=== PATIENT | female | born 1960 | race Caucasian/White ===

== ENCOUNTER 2017-02-22 11:06 | Inpatient (IN) | payer BC ==
[2017-02-22] MEDS ORDERED: SODIUM CHLORIDE 0.9% 1,000 ML IV STA ×2 (11:28)
[2017-02-22] MEDS ORDERED: IPRATROPIUM-ALBUTEROL 3 ML NEB INHALATION STA (11:28)
[2017-02-22] MEDS ORDERED: METOCLOPRAMIDE 5 MG/ML 2 ML VIAL IVP STA (11:28)
[2017-02-22 11:52] LABS: Basophils % (A) 0 %; CH 33.2; CHCM 34.4; Eosinophils # (A) 0.1 k/uL (0-0.7); Eosinophils % (A) 0 %; HCT 44.6 % (34.0-46.0); HDW 2.59; HGB 15.6 gm/dL (11.4-16.0); Luc # (Auto) 0.27; Luc % (Auto) 2; Lymphocytes # (A) 1.6 k/uL (1.0-4.8); Lymphocytes % (A) 10 %; MCH 33.9 pg (25.0-35.0); Mean Platelet Volume 7.2; Monocytes # (A) 0.9 k/uL (0-1.0); Monocytes % (A) 5 %; Neutrophils # (A) 14.1 k/uL (1.3-7.7); Neutrophils % (A) 83 %; RDW 13.8 % (11.5-15.5); WBC 16.9 k/uL (3.8-10.6); WBC (Perox) 16.18
[2017-02-22] MEDS ORDERED: methylPREDNISolone SOD SUCCI 125 MG/2 ML VIAL IV STA (12:08)
--- NOTE | 2017-02-22 12:08 | XR ---
EXAMINATION TYPE: XR chest 2V DATE OF EXAM: 02/22/2017 11:57 AM COMPARISON: 05/17/2015 INDICATION: Difficulty breathing TECHNIQUE: 2 view chest FINDINGS: The heart size is normal. The pulmonary vasculature is normal. The lungs are clear. There is hyperinflation flattening the diaphragms compatible COPD. Some blunting the right costophren ic angle could be a minimal effusion or related to COPD. Old rib fractures are present on the right. IMPRESSION: 1. A minimal right pleural effusion is not excluded. This could be chronic changes due to COPD. 2. COPD
--- NOTE | 2017-02-22 12:09 | XR ---
EXAMINATION TYPE: XR abdomen 2V DATE OF EXAM: 02/22/2017 11:57 AM COMPARISON: 02/22/2017 INDICATION: Abdominal pain TECHNIQUE: Single view abdomen upright view and supine view FINDINGS: Nonspecific bowel gas is present. There is a colostomy on the right. Surgical clips are within the ab domen and pelvis. Psoas margins are normal. No organomegaly is present. No free air is evident. Upper abdomen [id number] on the upright view. IMPRESSION: 1. No suspicious changes. 2. Note is made of small bilateral pleural effusions.
[2017-02-22 12:10] LABS: ALT 27 U/L (9-52); AST 16 U/L (14-36); Alkaline Phosphatase 61 U/L (38-126); Anion Gap 13 mmol/L; Blood Urea Nitrogen 13 mg/dL (7-17); Calcium 10.2 mg/dL (8.4-10.2); Carbon Dioxide 25 mmol/L (22-30); Chloride 106 mmol/L (98-107); Glucose 100 mg/dL (74-99); Magnesium 1.6 mg/dL (1.6-2.3); Non-African American GFR(MDRD) >60 (>60 ml/min/1.73 sqM); Potassium 3.8 mmol/L (3.5-5.1); Sodium 144 mmol/L (137-145); Total Bilirubin 0.8 mg/dL (0.2-1.3); Total Protein 7.5 g/dL (6.3-8.2)
--- NOTE | 2017-02-22 12:12 | ED ---
General Adult HPI - General Chief complaint: Shortness of Breath Stated complaint: Dehydration/Difficulty Breathing Time Seen by Provider: 02/22/17 11:20 Source: patient, RN notes reviewed, old records reviewed Mode of arrival: EMS Limitations: no limitations - History of Present Illness Initial comments: Chief complaint history of present illness this is a 56-year-old female with multiple complaints. She does have history of COPD, Crohn's. Patient reports proximal or 7 days ago she started with an upper respiratory tract type infection but no fever. She felt short of breath today. Updrafts aren't helping as much as they used to. She's also developed dry heaves and diarrhea. Patient feels dry. Complains of chills and sweats at times. No blood in the vomit or stool. - Related Data Home Medications Medication Instructions Recorded Confirmed Aclidinium [place] [Tudorza 400 mcg INHALATION BID 06/21/14 06/03/16 Pressair] Adalimumab [Humira] 40 mg SQ FR 06/21/14 06/03/16 Albuterol Nebulized [Ventolin 2.5 mg INHALATION QID PRN 06/21/14 06/03/16 Nebulized] Albuterol Sulfate [Proair Hfa] 2 puff INHALATION Q4HR PRN 06/21/14 06/03/16 Acetaminophen-Codeine 300-30mg 1 tab PO TID 08/18/14 06/03/16 [Tylenol w/codeine #3] Calcium Carb-Vit D 500Mg-200Un 1 each PO BID 04/27/16 06/03/16 [Oscal 500+D] Fluticasone/Vilanterol [Breo 1 inhalation PO Q24HR 04/27/16 06/03/16 Ellipta 100-25 Mcg Iinhaler] Multivitamins, Thera [Multivitamin] 1 tab PO DAILY 04/27/16 06/03/16 Opium Tincture 2 ml PO QID 04/27/16 06/03/16 Mercaptopurine [Purinethol] 50 mg PO BID 02/22/17 02/22/17 Allergies Allergy/AdvReac Type Severity Reaction Status Date / Time aspirin Allergy Unknown Verified 02/22/17 12:09 Beta-Blockers Allergy Unknown Verified 02/22/17 12:09 (Beta-Adrenergic Bloc Iodine and Iodide Containing Allergy Unknown Verified 02/22/17 12:09 Produc Sulfa (Sulfonamide Allergy Unknown Verified 02/22/17 12:09 Antibiotics) timolol [Timolol] Allergy Unknown Verified 02/22/17 12:09 Review of Systems ROS Statement: Those systems with pertinent positive or pertinent negative responses have been documented in the HPI. Review of systems. No headache or visual acuity changes no sore throat. Dry heaves causing discomfort to her epigastric region. Chronically short of breath with COPD, still smoking 3 cigarettes per day, strongly encouraged to stop, using updrafts frequently. No peripheral neurological complaints other than discomfort associated with fibromyalgia. All systems are reviewed. Past medical problems significant for COPD, fibromyalgia, GERD, Crohn's, hiatal hernia. The patient's surgeries include a breast lumpectomy, cholecystectomy, inguinal hernia repair, total hysterectomy, arthroscopic surgery to her knee, ectopic times one. Family history cancers include throat and skin. The patient does smoke strongly encouraged to stop. Advised to follow-up with her family physician concerning ways to help her stop. Denies alcohol use. ROS Other: All systems not noted in ROS Statement are negative. Past Medical History Past Medical History: COPD, Fibromyalgia, GERD/Reflux Additional Past Medical History / Comment(s): crohn's, hiatal hernia History of Any Multi-Drug Resistant Organisms: None Reported Past Surgical History: Breast Surgery, Cholecystectomy, Hernia Repair, Hysterectomy, Orthopedic Surgery Additional Past Surgical History / Comment(s): ectopic , ileostomy, leep procedure,stoma repair, laparoscopy, Past Anesthesia/Blood Transfusion Reactions: No Reported Reaction Past Psychological History: No Psychological Hx Reported Smoking Status: Current every day smoker Past Alcohol Use History: None Reported Additional Past Alcohol Use History / Comment(s): smoker since age 17 currently smoking <1/2 pack/wk Past Drug Use History: None Reported - Past Family History Mother Family Medical History: No Reported History General Exam - General Exam Comments Initial Comments: General: The patient is awake and alert, playing of COPD exacerbation, updrafts aren't helping as much is a used to. Also dry heaves exacerbation of Crohn's with epigastric and abdominal discomfort. No blood noted in the diarrhea. Vital signs show temperature 97.7 pulse 80 respiratory rate 20 pulse ox 94% room air blood pressure 107/68 Eye: Pupils are equal, round and reactive to light, extra-ocular movements are intact ; there is normal conjunctiva bilaterally. No signs of icterus. Ears, nose, mouth and throat: There are moist mucous membranes and no oral lesions. Neck: The neck is supple, there is no tenderness . Cardiovascular: There is a regular rate and rhythm. No murmur, rub or gallop is appreciated. Respiratory: Lungs are clear to auscultation, respirations are non-labored, breath sounds are equal. No wheezes, stridor, rales, or rhonchi. History of COPD Gastrointestinal: Soft, non-distended, mildly tender abdomen without masses or organomegaly noted. There is no rebound or guarding present. No CVA tenderness. Active bowel sounds Back: Chronic musculoskeletal discomfort from fibromyalgia. Musculoskeletal: No joint swelling complaints. Generalized discomfort with her fibromyalgia per patient. Neurological: No complaint of weakness other than feeling dehydrated. No neuro deficits noted or complained of. Skin: Skin is warm and dry and no rashes or lesions are noted. Limitations: no limitations Course Vital Signs 02/22/17 02/22/17 02/22/17 11:08 12:01 12:10 Temperature 97.7 F Pulse Rate 80 88 84 Respiratory 20 18 Rate Blood Pressure 107/68 141/99 O2 Sat by Pulse 94 L 100 Oximetry 02/22/17 12:16 Temperature Pulse Rate 90 Respiratory Rate Blood Pressure O2 Sat by Pulse Oximetry EKG Findings - EKG Comments: EKG Findings:: EKG was done and reviewed at 1140 showing sinus rhythm with sinus arrhythmia. Rare PVC. Rate 83 PA interval was 126 QRS 68 QT [address] Qiu Medical Decision Making - Medical Decision Making Medical decision making patient's white count 16.9 hemoglobin 15 hematocrit 44, potassium 3.8 with a BUN 13 creatinine 0.66 with a GFR greater than 60. Glucose 100. Troponin less than 0.012 X-ray of the chest was done and AP and lateral views and reviewed by radiologist entire report was reviewed his final impression is a minimal right pleural effusion is not excluded. This could be chronic changes due to COPD. # 2 COPD X-ray of the abdomen was done and reviewed by radiologist his findings are nonspecific bowel gas is present. There is a colostomy on the right surgical clips are within the abdomen and pelvis. Psoas margins are normal. No organomegaly is present. No free air is evident. Upper abdominal field of view on the upright view. Impression; no suspicious changes. Note is made of a small bilateral pleural effusions. As read by Dr. Herzog The patient be admitted for exacerbation of COPD and Crohn's disease. - Lab Data Result diagrams: 02/22/17 11:15 02/22/17 11:15 Lab Results 02/22/17 02/22/17 02/22/17 Range/Units 11:15 11:15 11:15 WBC 16.9 H (3.8-10.6) k/uL RBC 4.60 (3.80-5.40) m/uL Hgb 15.6 (11.4-16.0) gm/dL Hct 44.6 (34.0-46.0) % MCV 97.0 (80.0-100.0) fL MCH 33.9 (25.0-35.0) pg MCHC 35.0 (31.0-37.0) g/dL RDW 13.8 (11.5-15.5) % Plt Count 258 (150-450) k/uL Neutrophils % 83 % Lymphocytes % 10 % Monocytes % 5 % Eosinophils % 0 % Basophils % 0 % Neutrophils # 14.1 H (1.3-7.7) k/uL Lymphocytes # 1.6 (1.0-4.8) k/uL Monocytes # 0.9 (0-1.0) k/uL Eosinophils # 0.1 (0-0.7) k/uL Basophils # 0.0 (0-0.2) k/uL Sodium 144 (137-145) mmol/L Potassium 3.8 (3.5-5.1) mmol/L Chloride 106 (98-107) mmol/L Carbon Dioxide 25 (22-30) mmol/L Anion Gap 13 mmol/L BUN 13 (7-17) mg/dL Creatinine 0.66 (0.52-1.04) mg/dL Est GFR (MDRD) Af Amer >60 (>60 ml/min/1.73 sqM) Est GFR (MDRD) Non-Af >60 (>60 ml/min/1.73 sqM) Glucose 100 H (74-99) mg/dL Calcium 10.2 (8.4-10.2) mg/dL Magnesium 1.6 (1.6-2.3) mg/dL Total Bilirubin 0.8 (0.2-1.3) mg/dL AST 16 (14-36) U/L ALT 27 (9-52) U/L Alkaline Phosphatase 61 (38-126) U/L Troponin I <0.012 (0.000-0.034) ng/mL Total Protein 7.5 (6.3-8.2) g/dL Albumin 4.3 (3.5-5.0) g/dL Disposition Clinical Impression: Asthma exacerbation in COPD, Exacerbation of Crohn's disease Disposition: ADMITTED IP TO THIS HOSP Condition: Serious
[2017-02-22] MEDS ORDERED: HYDROmorphone 1 MG/ML 1 ML SYRINGE IV PRN (12:42)
[2017-02-22] MEDS ORDERED: NALOXONE 0.4 MG/ML 1 ML VIAL IV PRN (12:42)
[2017-02-22] MEDS ORDERED: ONDANSETRON 4 MG/2 ML VIAL IVP PRN (12:42)
[2017-02-22] MEDS ORDERED: ALBUTEROL NEBULIZED 2.5 MG/3 ML INHALATION PRN (12:46)
[2017-02-22] MEDS: SODIUM CHLORIDE 0.9% 1,000 ML IV SCH ×2 (13:25→21:51)
[2017-02-22] MEDS ORDERED: Acetaminophen-Codeine 300-30mg TAB PO SCH (16:00)
[2017-02-22] MEDS: methylPREDNISolone SOD SUCCI 125 MG/2 ML VIAL IV SCH ×2 (16:22→23:27)
[2017-02-22] MEDS: ONDANSETRON 4 MG/2 ML VIAL IVP PRN ×2 (17:39→23:30)
[2017-02-22] MEDS: INSULIN LISPRO (humaLOG) 300 UNIT/3 ML VIAL SQ SCH ×2 (19:06→22:00)
[2017-02-22 20:14] LABS: Hemoglobin A1C 5.3 % (4.2-6.1)
[2017-02-22] MEDS: SYMBICORT 80-4.5 MCG INHALER INHALATION SCH (20:58)
[2017-02-22] MEDS ORDERED: CALCIUM CARB-VIT D 500MG-200UN 1 EACH TAB PO SCH (21:00)
[2017-02-22] MEDS: OPIUM PO SCH ×2 (21:02→22:00)
[2017-02-22 21:52] LABS: Glucose,Whole Blood 136 mg/dL (75-99)
[2017-02-22] MEDS: MERCAPTOPURINE 50 MG TAB PO SCH (22:00)
[2017-02-22] MEDS: MELATONIN 3 MG TABLET PO SCH (22:32)
[2017-02-22] MEDS: NICOTINE 21MG/24HR PATCH TRANSDERM SCH (23:04)
[2017-02-22] MEDS: Acetaminophen-Codeine 300-30mg TAB PO SCH (23:25)
--- NOTE | 2017-02-22 23:27 | HP ---
DATE OF ADMISSION: 02/22/2017 PRESENTING COMPLAINT: Short of breath, cough. HISTORY OF PRESENTING COMPLAINT: This is a pleasant 56-year-old patient of Dr. Scott whose chronic stable medical conditions include fibromyalgia, GERD, osteoarthritis, hiatal hernia, osteoporosis. Patient has a history of Crohn's/ulcerative colitis and had her large bowel resected; has a chronic ileostomy. Patient off and on gets diarrhea, which seems to have flared up; hence some achiness in the belly. At the same time patient primarily presents with shortness of breath getting worse for about a week; cough, ( ) in the chest, not able to really expectorate; fevers; feeling hot and cold, tired, rundown, feels exhausted. Therefore she is admitted. REVIEW OF SYSTEMS: CONSTITUTIONAL: Weak, tired. HEENT: As above. RESPIRATORY: As above. CARDIOVASCULAR: None. GASTROINTESTINAL: As above. GENITOURINARY: None. MUSCULOSKELETAL: Aches and pains in the joints. DERMATOLOGICAL: None. HEMATOLOGICAL: None. LYMPHATICS: None. PSYCHIATRY: None. NEUROLOGICAL: None. PAST HISTORY: 1. COPD. 2. Fibromyalgia. 3. GERD. 4. Osteoarthritis. 5. Crohn's/ulcerative colitis. 6. Bleeding per ileostomy after large bowel resection. 7. Hiatal hernia. 8. Osteoporosis. PAST SURGICAL HISTORY: 1. Breast surgery. 2. Cholecystectomy. 3. Hernia repair. 4. Multiple bowel surgeries, including total colectomy. 5. Ileostomy. 6. Right ovary removed. 7. Ectopic . 8. Total hysterectomy. 9. LEEP procedure. 10. Laparoscopy for endometriosis. 11. Left breast lumpectomy. 12. Right breast core biopsy, benign. SOCIAL HISTORY: Patient is taking care of her 90-year-old father. . Patient has been smoking for close to 40 years, up to one half a pack a day. No alcohol. FAMILY HISTORY: COPD, skin cancer, osteoporosis. HOME MEDICATIONS: 1. Purinethol 50 mg b.i.d. 2. Tudorza 400 mcg b.i.d. 3. Tylenol #3 one tablet t.i.d. 4. Opium tincture 2 mL p.o. q.i.d. for diarrhea. 5. Multivitamin 1 tablet p.o. daily. 6. Breo Ellipta 100/25 one puff daily. 7. Calcium with vitamin D 1 tablet p.o. b.i.d. 8. ProAir 2 puffs q.4 p.r.n. 9. Ventolin 2.5 nebulizer q.i.d. p.r.n. 10. Humira 40 mg subcutaneously on Monday. ALLERGIES: 1. ASPIRIN. 2. BETA GLO. 3. IODINE. 4. SULFA. On examination, temperature 99.8, pulse 95, respiration 16, blood pressure 110/64, pulse ox 92% on room air. GENERAL APPEARANCE: Somewhat thin build. Lying in bed, tired-appearing. EYES: Pupils equal. Conjunctivae normal. HEENT: External appearance of nose and ears normal. Oral cavity normal. NECK: JVD not raised. Mass not palpable. RESPIRATORY: Effort increased. LUNGS: Poor air poor air entry. Prolonged expiration. CARDIOVASCULAR: First and second sounds normal. No edema. ABDOMEN: Soft. Mild tenderness. Ileostomy back in place. Liver and spleen not palpable. LYMPHATIC: No lymph node palpable in neck or axillae. PSYCHIATRY: Alert and oriented x3. Mood and affect normal. NEUROLOGICAL: Pupils equal. Cranial nerves grossly intact. Power and sensation grossly intact. INVESTIGATIONS: White count 16.9, hemoglobin 15.6. Potassium 3.8. BUN and creatinine are normal. Troponin negative. Chest x-ray reviewed by me shows a ( ) hyperinflation; no infiltrates. ASSESSMENT: 1. Acute severe chronic obstructive pulmonary disease exacerbation in a patient who is a smoker, probably with acute tracheobronchitis. 2. Gastroesophageal reflux disease. 3. Primary osteoarthritis in multiple joints. 4. Chronic Crohn's with ulcerative colitis leading to ileostomy following total colectomy. 5. Hiatal hernia. 6. Osteoporosis. 7. Chronic nicotine dependence. Patient is a smoker. PLAN: Patient was put on nebulized bronchodilators, Solu-Medrol, IV fluids. Will give Lovenox for DVT prophylaxis. Consultation to Dr. Mistry from pulmonary will be made and also GI. Will give patient a nicotine patch. Advised against smoking.
[2017-02-23] MEDS: BUDESONIDE 1 MG/2 ML NEBU INHALATION SCH ×3 (00:27→20:05)
[2017-02-23] MEDS: IPRATROPIUM-ALBUTEROL 3 ML NEB INHALATION SCH ×8 (00:42→23:47)
[2017-02-23] MEDS: Acetaminophen-Codeine 300-30mg TAB PO SCH ×4 (05:22→23:50)
[2017-02-23] MEDS: SODIUM CHLORIDE 0.9% 1,000 ML IV SCH ×3 (05:30→23:01)
[2017-02-23] MEDS: ONDANSETRON 4 MG/2 ML VIAL IVP PRN ×4 (05:30→23:51)
[2017-02-23 07:38] LABS: Glucose,Whole Blood 122 mg/dL (75-99)
[2017-02-23] MEDS: SYMBICORT 80-4.5 MCG INHALER INHALATION SCH (07:43)
[2017-02-23] MEDS ORDERED: TIOTROPIUM 18 MCG/PUFF INHALER INHALATION SCH (08:00)
[2017-02-23] MEDS: INSULIN LISPRO (humaLOG) 300 UNIT/3 ML VIAL SQ SCH ×4 (08:01→23:01)
[2017-02-23] MEDS: OPIUM PO SCH ×4 (08:29→23:02)
[2017-02-23] MEDS: NICOTINE 21MG/24HR PATCH TRANSDERM SCH (08:30)
[2017-02-23] MEDS: MERCAPTOPURINE 50 MG TAB PO SCH ×2 (08:31→21:14)
[2017-02-23] MEDS: methylPREDNISolone SOD SUCCI 125 MG/2 ML VIAL IV SCH ×2 (08:32→16:45)
[2017-02-23] MEDS ORDERED: PANTOPRAZOLE 40 MG/10 ML VIAL IV SCH (09:00)
[2017-02-23 09:17] LABS: ALT 33 U/L (9-52); AST 18 U/L (14-36); Alkaline Phosphatase 53 U/L (38-126); Anion Gap 8 mmol/L; Blood Urea Nitrogen 11 mg/dL (7-17); Calcium 8.2 mg/dL (8.4-10.2); Carbon Dioxide 21 mmol/L (22-30); Chloride 114 mmol/L (98-107); Glucose 112 mg/dL (74-99); Non-African American GFR(MDRD) >60 (>60 ml/min/1.73 sqM); Sodium 143 mmol/L (137-145); Total Bilirubin 0.5 mg/dL (0.2-1.3)
--- NOTE | 2017-02-23 09:32 | P.CONS ---
History of Present Illness - Reason for Consult Consult date: 02/23/17 History of Crohn's disease Requesting physician: Lokesh Austin - History of Present Illness 56-year-old female patient Dr. Scott with a past medical history of Crohn's ileitis with ileostomy presents with acute history symptoms of cough, respiratory type symptoms without fever. He sentences been ongoing for about a week. She had increased ileostomy watery liquid output for the last week with intermittent cramping however since admission with hydration her ostomy output has improved. She takes an opiate tincture liquid medication 4 times a day which helps her abdominal cramping. Appetite has been diminished with poor oral intake with intermittent nausea vomiting. Denies hematemesis hematochezia or melena. She is maintained on Humira with her next injection scheduled for tomorrow. Patient feels her symptoms of increased ostomy output are related to her respiratory symptoms. She doesn't feel it is a "true exacerbation" but it is "flaring me up". Colonoscopy April 2016 reported no evidence of active Crohn's disease. White count 16.9. Hemoglobin 15.6. T-max 99.8. She declined flu vaccine this year. Abdominal x-ray reported no suspicious changes. Chest x-ray minimal right pleural effusion could not be excluded. Chronic changes due to COPD. Review of Systems Constitutional: Denies fever, chills, sweats, weight gain, or loss. HEENT: Negative for migraines, blurred vision or loss, earaches, drainage, tinnitus, oral mucosal lesions, dysphagia, or odynophagia. CARDIAC: Negative for chest pain, arrhythmias, or palpitation. RESPIRATORY: COPD. Negative for shortness of breath, hemoptysis, cough, or sputum production. GI: See HPI for pertinent findings. : Negative for hematuria, urgency, frequency, polyuria, or dysuria. GYNc: Denies possibility of . Negative vaginal discharge. MUSCULOSKELETAL: Osteoarthritis. Fibromyalgia. NEUROLOGIC: Negative for stroke or TIA. ENDOCRINE: Negative for thyroid problems. SKIN: Negative for rash or itching. PSYCHIATRIC: Negative history for depression and anxiety All systems: negative (See HPI) Past Medical History Past Medical History: COPD, Fibromyalgia, GERD/Reflux, GI Bleed, Osteoarthritis (OA), Pneumonia Additional Past Medical History / Comment(s): bronchitis, crohn's, bowel obstructions, lower GI bleeds, hiatal hernia, osteoporosis, arthritis multiple joints, seasonal allergies. History of Any Multi-Drug Resistant Organisms: None Reported Past Surgical History: Breast Surgery, Cholecystectomy, Hernia Repair, Hysterectomy, Orthopedic Surgery Additional Past Surgical History / Comment(s): Multiple bowel surgeries including total colectomy/ileostomy, ileostomy moved/repaired, R tube and R ovary removed due toectopic , total hysterectomy, leep procedure, laparoscopy for endometriosis, L breast lumpectomy-benign, r breast core bx- benign, EGD/colonoscopies. Past Anesthesia/Blood Transfusion Reactions: No Reported Reaction Past Psychological History: No Psychological Hx Reported Additional Psychological History / Comment(s): Pt currently is staying with her 90 yr old father who has dementia. Her spouse is staying at their home to care for the dogs. 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 She is independent. Smoking Status: Current every day smoker Past Alcohol Use History: None Reported Additional Past Alcohol Use History / Comment(s): smoker since age 17 currently smoking <1/2 pack/wk Past Drug Use History: None Reported - Past Family History Mother Family Medical History: Cancer, COPD Additional Family Medical History / Comment(s): Skin cancer and osteoporosis. Father Family Medical History: Dementia Additional Family Medical History / Comment(s): Father is 90yrs old. Medications and Allergies Home Medications Medication Instructions Recorded Confirmed Type Aclidinium [place] [Tudorza 400 mcg INHALATION RT-BID 06/21/14 02/22/17 History Pressair] Adalimumab [Humira] 40 mg SQ FR 06/21/14 02/22/17 History Albuterol Nebulized [Ventolin 2.5 mg INHALATION RT-QID PRN 06/21/14 02/22/17 History Nebulized] Albuterol Sulfate [Proair Hfa] 2 puff INHALATION RT-Q4H PRN 06/21/14 02/22/17 History Acetaminophen-Codeine 300-30mg 1 tab PO TID 08/18/14 02/22/17 History [Tylenol w/codeine #3] Calcium Carb-Vit D 500Mg-200Un 1 tab PO BID 04/27/16 02/22/17 History [Oscal 500+D] Fluticasone/Vilanterol [Breo 1 puff INHALATION RT-DAILY 04/27/16 02/22/17 History Ellipta 100-25 Mcg Iinhaler] Multivitamins, Thera [Multivitamin] 1 tab PO DAILY 04/27/16 02/22/17 History Opium Tincture 2 ml PO QID 04/27/16 02/22/17 History Mercaptopurine [Purinethol] 50 mg PO BID 02/22/17 02/22/17 History Allergies Allergy/AdvReac Type Severity Reaction Status Date / Time aspirin Allergy Unknown Verified 02/22/17 12:09 Beta-Blockers Allergy Unknown Verified 02/22/17 12:09 (Beta-Adrenergic Bloc Iodine and Iodide Containing Allergy Unknown Verified 02/22/17 12:09 Produc Sulfa (Sulfonamide Allergy Unknown Verified 02/22/17 12:09 Antibiotics) timolol [Timolol] Allergy Unknown Verified 02/22/17 12:09 Physical Exam Vitals: Vital Signs Temp Pulse Pulse Resp BP BP Pulse Ox 02/23/17 08:06 80 02/23/17 07:44 76 02/23/17 07:00 98.5 F 86 16 95/53 92 L 02/22/17 23:00 99.8 F H 103 H 20 96/66 94 L 02/22/17 14:44 99.8 F H 95 16 110/64 92 L 02/22/17 13:27 98.4 F 82 20 128/73 97 Intake and Output 02/22/17 02/23/17 02/23/17 22:59 06:59 14:59 Intake Total 300 250 Balance 300 250 Intake: Oral 300 250 Other: # Voids 1 1 General appearance: The patient is alert, oriented, in no acute distress. HET: Head is normocephalic and atraumatic. Pupils are equal and reactive. Oropharynx is clear without lesions. Neck: Supple without lymphadenopathy. Trachea midline. Heart: S1 S2. Regular rate and rhythm. Lungs: No diminished in bases bilaterally.. Abdomen: Soft, nontender, nondistended with bowel sounds. Ostomy with minimal amount of liquid stool. No peritoneal signs. No palpable organomegaly or masses. Extremities: Normal skin color and turgor. No cyanosis, rash, ulceration, clubbing, or edema. Radial and pedal pulses are 2/4 bilaterally. Neurological: No focal deficits. Strength and sensation are grossly intact. Results CBC & Chem 7: 02/22/17 11:15 02/23/17 08:03 Labs: Abnormal Lab Results - Last 24 Hours (Table) 02/22/17 02/23/17 02/23/17 Range/Units 21:49 07:32 08:03 Chloride 114 H (98-107) mmol/L Carbon Dioxide 21 L (22-30) mmol/L Glucose 112 H (74-99) mg/dL POC Glucose (mg/dL) 136 H 122 H (75-99) mg/dL Calcium 8.2 L (8.4-10.2) mg/dL Total Protein 6.0 L (6.3-8.2) g/dL Albumin 3.3 L (3.5-5.0) g/dL Abdominal x-ray: report reviewed (Reviewed by Dr. Martino) Assessment and Plan (1) Crohn's ileitis Narrative/Plan: Possible exacerbation possible superimposed gastroenteritis Status: Acute (2) Asthma exacerbation in COPD Status: Acute Plan: 1. Continue opium tincture 4 times daily per home dosing. 2. Continue with Humira as scheduled patient will bring home medication in with next injection due in the next 24-72 hours. 3. Continue mercaptopurine 50 mg twice daily. 4. Sed rate CRP. 5. Continue with IV steroids today Solu-Medrol 60 mg every 8 hours with anticipation to decrease tomorrow based on clinical course. We'll follow closely with you. Thank you for this kind referral and the opportunity to participate in the care of your patient. This consultation was discussed with Dr. Martino. The impression and plan of care have been directed as dictated.
[2017-02-23 11:16] LABS: Basophils % (A) 0 %; CH 32.6; CHCM 32.5; Eosinophils % (A) 0 %; HCT 39.2 % (34.0-46.0); HDW 2.49; HGB 12.9 gm/dL (11.4-16.0); Luc # (Auto) 0.07; Luc % (Auto) 1; Lymphocytes # (A) 0.9 k/uL (1.0-4.8); Lymphocytes % (A) 7 %; MCH 33.3 pg (25.0-35.0); MCHC 32.9 g/dL (31.0-37.0); MCV 101.1 fL (80.0-100.0); Macrocytosis Slight; Mean Platelet Volume 7.8; Monocytes # (A) 0.4 k/uL (0-1.0); Monocytes % (A) 3 %; Neutrophils # (A) 11.9 k/uL (1.3-7.7); Neutrophils % (A) 90 %; RBC 3.88 m/uL (3.80-5.40); RDW 14.2 % (11.5-15.5); WBC 13.3 k/uL (3.8-10.6); WBC (Perox) 14.43
[2017-02-23 12:01] LABS: Glucose,Whole Blood 160 mg/dL (75-99)
[2017-02-23 12:14] VITALS: BMI 20.7
[2017-02-23] MEDS: CHLORPHEN-HYDROcod 8-10mg/5ml 5 ML ORAL.SYRG PO SCH ×2 (12:56→21:15)
--- NOTE | 2017-02-23 13:25 | P.CNPUL ---
History of Present Illness Consult date: 02/23/17 Reason for consult: dyspnea History of present illness: 56-year-old female patient with known history of COPD with a baseline FEV1 of 36 % of predicted coming in for increased shortness of breath and COPD exacerbation. Patient is well-known to me. She has been maintained on a combination of Breo Ellipta and Tudorza on an outpatient basis. She had been doing well. She had been on no oxygen yet. She also has inflammatory bowel disease and she is on Humira on outpatient basis. The patient presented to the hospital because of worsening shortness of breath. She has a congested cough. She is unable to bring up much of sputum. No pleurisy. No hemoptysis. Chest x -ray is clear. Her condition was progressively getting worse over the past few days. She has been using solution more frequently and she was coughing vigorously. For that reason she was admitted for an acute COPD exacerbation. At the same time, the patient was having some intermittent cramping of her abdomen and she has noted to eat less and she had diminished oral intake. Denied having any diarrhea. No hematemesis. No melanotic stool. She has been afebrile for now. Review of Systems 12 point review of system was done and the positive findings are almost above in history of present illness Past Medical History Past Medical History: COPD, Fibromyalgia, GERD/Reflux, GI Bleed, Osteoarthritis (OA), Pneumonia Additional Past Medical History / Comment(s): COPD, severe with an FEV1 of 36% of predicted, crohn's, bowel obstructions, lower GI bleeds, hiatal hernia, osteoporosis, arthritis multiple joints, seasonal allergies. History of Any Multi-Drug Resistant Organisms: None Reported Past Surgical History: Breast Surgery, Cholecystectomy, Hernia Repair, Hysterectomy, Orthopedic Surgery Additional Past Surgical History / Comment(s): Multiple bowel surgeries including total colectomy/ileostomy, ileostomy moved/repaired, R tube and R ovary removed due toectopic , total hysterectomy, leep procedure, laparoscopy for endometriosis, L breast lumpectomy-benign, r breast core bx- benign, EGD/colonoscopies. Past Anesthesia/Blood Transfusion Reactions: No Reported Reaction Past Psychological History: No Psychological Hx Reported Additional Psychological History / Comment(s): Pt currently is staying with her 90 yr old father who has dementia. Her spouse is staying at their home to care for the dogs. 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 She is independent. Smoking Status: Current every day smoker Past Alcohol Use History: None Reported Additional Past Alcohol Use History / Comment(s): smoker since age 17 currently smoking <1/2 pack/wk Past Drug Use History: None Reported - Past Family History Mother Family Medical History: Cancer, COPD Additional Family Medical History / Comment(s): Skin cancer and osteoporosis. Father Family Medical History: Dementia Additional Family Medical History / Comment(s): Father is 90yrs old. Medications and Allergies Home Medications Medication Instructions Recorded Confirmed Type Aclidinium [place] [Tudorza 400 mcg INHALATION RT-BID 06/21/14 02/22/17 History Pressair] Adalimumab [Humira] 40 mg SQ FR 06/21/14 02/22/17 History Albuterol Nebulized [Ventolin 2.5 mg INHALATION RT-QID PRN 06/21/14 02/22/17 History Nebulized] Albuterol Sulfate [Proair Hfa] 2 puff INHALATION RT-Q4H PRN 06/21/14 02/22/17 History Acetaminophen-Codeine 300-30mg 1 tab PO TID 08/18/14 02/22/17 History [Tylenol w/codeine #3] Calcium Carb-Vit D 500Mg-200Un 1 tab PO BID 04/27/16 02/22/17 History [Oscal 500+D] Fluticasone/Vilanterol [Breo 1 puff INHALATION RT-DAILY 04/27/16 02/22/17 History Ellipta 100-25 Mcg Iinhaler] Multivitamins, Thera [Multivitamin] 1 tab PO DAILY 04/27/16 02/22/17 History Opium Tincture 2 ml PO QID 04/27/16 02/22/17 History Mercaptopurine [Purinethol] 50 mg PO BID 02/22/17 02/22/17 History Allergies Allergy/AdvReac Type Severity Reaction Status Date / Time aspirin Allergy Unknown Verified 02/22/17 12:09 Beta-Blockers Allergy Unknown Verified 02/22/17 12:09 (Beta-Adrenergic Bloc Iodine and Iodide Containing Allergy Unknown Verified 02/22/17 12:09 Produc Sulfa (Sulfonamide Allergy Unknown Verified 02/22/17 12:09 Antibiotics) timolol [Timolol] Allergy Unknown Verified 02/22/17 12:09 Physical Exam Vitals: Vital Signs Temp Pulse Pulse Resp BP BP Pulse Ox 02/23/17 13:07 92 02/23/17 12:58 92 02/23/17 08:06 80 02/23/17 07:44 76 02/23/17 07:00 98.5 F 86 16 95/53 92 L 02/22/17 23:00 99.8 F H 103 H 20 96/66 94 L 02/22/17 14:44 99.8 F H 95 16 110/64 92 L 02/22/17 13:27 98.4 F 82 20 128/73 97 Intake and Output 02/22/17 02/23/17 02/23/17 22:59 06:59 14:59 Intake Total 300 250 200 Balance 300 250 200 Intake: Oral 300 250 200 Other: # Voids 1 1 Weight 49.895 kg Patient Weight 02/24/17 06:59 Weight 49.895 kg Head exam was generally normal. There was no scleral icterus or corneal arcus. Mucous membranes were moist.Neck was supple and without jugular venous distension, thyromegaly, or carotid bruits. Carotids were easily palpable bilaterally. There was no adenopathy. Lung sounds are diminished and there is prolongation of the expiratory phase of breathing and diffuse expiratory wheezes throughout the lung hunter bilaterally.Cardiac exam revealed the PMI to be normally situated and sized. The rhythm was regular and no extrasystoles were noted during several minutes of auscultation. The first and second heart sounds were normal and physiologic splitting of the second heart sound was noted. There were no murmurs, rubs, clicks, or gallops. Abdomen is soft. There is no direct tenderness or rebound tensile guarding. Ileostomy site is intact dry and clean.Examination of the extremities revealed easily palpable radial, femoral and pedal pulses. There was no cyanosis, clubbing or edema. Results - Laboratory Findings CBC and BMP: 02/23/17 08:03 02/23/17 08:03 Abnormal lab findings: Abnormal Labs 02/22/17 02/23/17 02/23/17 21:49 07:32 08:03 WBC 13.3 H MCV 101.1 H Neutrophils # 11.9 H Lymphocytes # 0.9 L Chloride Carbon Dioxide Glucose POC Glucose (mg/dL) 136 H 122 H Calcium Total Protein Albumin 02/23/17 02/23/17 08:03 11:59 WBC MCV Neutrophils # Lymphocytes # Chloride 114 H Carbon Dioxide 21 L Glucose 112 H POC Glucose (mg/dL) 160 H Calcium 8.2 L Total Protein 6.0 L Albumin 3.3 L - Diagnostic Findings Chest x-ray: image reviewed Assessment and Plan Plan: Assessment 1 acute COPD exacerbation secondary to an acute bronchitis. The patient has no evidence of pneumonia the chest x-ray. She is an increased risk of respiratory infections in general based on the fact that the patient has been maintained on Humira on outpatient basis. 2 shortness of breath secondary to above 3 inflammatory bowel disease/Crohn's disease maintained on Humira 4 chronic immunosuppression secondary to intake of Humira 5 fibromyalgia 6 diverticular ileostomy, a complication of inflammatory bowel disease 7 degenerative arthritis 8 osteoporosis 9 hiatal hernia 10 seasonal ALLERGIC rhinitis 11 smoker Plan The patient will be placed on DuoNeb nebulized treatments around the clock. The patient will be covered with Levaquin as an empiric antibiotic coverage. The patient will be given IV Solu Medrol 60 mg every 8 hours [id number]. We'll add Tussionex for cough. Continue Pulmicort Respules and Perforomist neb last 2 minutes twice a day.
[2017-02-23 17:21] LABS: Glucose,Whole Blood 156 mg/dL (75-99)
[2017-02-23] MEDS: FORMOTEROL FUMARATE 20 MCG/2 ML NEBU INHALATION SCH (20:05)
[2017-02-23 20:55] LABS: Glucose,Whole Blood 156 mg/dL (75-99)
[2017-02-23] MEDS: MELATONIN 3 MG TABLET PO SCH (23:01)
[2017-02-23] MEDS: methylPREDNISolone SOD SUCCI 40 MG/ML 1 ML VIAL IV SCH (23:51)
[2017-02-24] MEDS: IPRATROPIUM-ALBUTEROL 3 ML NEB INHALATION SCH ×6 (03:44→23:48)
[2017-02-24] MEDS: SODIUM CHLORIDE 0.9% 1,000 ML IV SCH ×4 (06:35→23:56)
[2017-02-24] MEDS: Acetaminophen-Codeine 300-30mg TAB PO SCH ×4 (06:35→23:50)
[2017-02-24 07:25] LABS: Glucose,Whole Blood 148 mg/dL (75-99)
[2017-02-24] MEDS: FORMOTEROL FUMARATE 20 MCG/2 ML NEBU INHALATION SCH ×2 (07:34→19:09)
[2017-02-24] MEDS: BUDESONIDE 1 MG/2 ML NEBU INHALATION SCH ×2 (07:34→19:09)
[2017-02-24] MEDS: ONDANSETRON 4 MG/2 ML VIAL IVP PRN ×3 (08:04→20:04)
[2017-02-24] MEDS: NICOTINE 21MG/24HR PATCH TRANSDERM SCH (08:06)
[2017-02-24] MEDS: OPIUM PO SCH ×4 (08:07→21:38)
[2017-02-24] MEDS: methylPREDNISolone SOD SUCCI 40 MG/ML 1 ML VIAL IV SCH ×3 (08:07→23:53)
[2017-02-24] MEDS: MERCAPTOPURINE 50 MG TAB PO SCH ×2 (08:07→20:08)
[2017-02-24] MEDS: CHLORPHEN-HYDROcod 8-10mg/5ml 5 ML ORAL.SYRG PO SCH ×2 (08:07→20:11)
[2017-02-24] MEDS: INSULIN LISPRO (humaLOG) 300 UNIT/3 ML VIAL SQ SCH ×4 (08:12→21:40)
[2017-02-24 09:22] LABS: Basophils % (A) 0 %; CH 32.8; CHCM 32.2; Eosinophils % (A) 0 %; HCT 36.3 % (34.0-46.0); HDW 2.59; HGB 11.6 gm/dL (11.4-16.0); Luc # (Auto) 0.06; Luc % (Auto) 1; Lymphocytes # (A) 0.5 k/uL (1.0-4.8); Lymphocytes % (A) 4 %; MCH 32.8 pg (25.0-35.0); MCV 102.5 fL (80.0-100.0); Macrocytosis Slight; Mean Platelet Volume 7.1; Monocytes # (A) 0.3 k/uL (0-1.0); Monocytes % (A) 3 %; Neutrophils # (A) 11.6 k/uL (1.3-7.7); Neutrophils % (A) 93 %; RBC 3.54 m/uL (3.80-5.40); RDW 14.3 % (11.5-15.5); WBC 12.5 k/uL (3.8-10.6); WBC (Perox) 13.47
--- NOTE | 2017-02-24 10:05 | PN ---
DATE OF SERVICE: 02/23/2017 INTERVAL HISTORY: This is a pleasant 56-year-old patient who presented to the emergency department with shortness of breath, getting worse for about a week, and a cough located in the chest, not able to really expectorate, fevers, and feeling generally run down. Today the patient was awake, alert, lying in bed, looking anxious, tearful at times when speaking about caring for her father. Review of systems done for constitutional, cardiovascular, GI, pulmonary, with an relevant findings above. Current medications: 1. Purinethol. 2. Tudorza. 3. Tylenol. 4. Opium tincture. 5. Multivitamin. 6. Breo Ellipta. 7. Calcium with vitamin D. 8. ProAir. 9. Ventolin. 10. Humira. PHYSICAL EXAM: VITAL SIGNS: 97.9, pulse ox 76, respiratory rate 20, blood pressure 100/64, oxygen saturation 94% on room air. GENERAL APPEARANCE: Patient lying in bed, tired-appearing, able to answer questions, anxious about being ill and concerns regarding caring for her family member. EYES: Pupils equal. Conjunctivae normal. NECK: JVD not raised. Mass not palpable. RESPIRATORY: Effort increased. LUNGS: Poor air and poor air entry. Prolonged expiration. CARDIOVASCULAR: S1, S2 normal. No edema noted. ABDOMEN: Soft. Mild tenderness. Ileostomy in place. Liver and spleen not palpable. PSYCHIATRY: Alert and oriented x3. Mood is tense and anxious. Affect is normal. INVESTIGATIONS: White blood cell count 13.3, basic metabolic panel within normal limits. Calcium 8.2, C-reactive protein 78.6, total protein 6.0, albumin 3.3. Pulmonology consultation/recommendations: DuoNeb treatments around the clock, Levaquin as an empiric antibiotic coverage, IV Solu-Medrol, Tussionex for cough, Pulmicort Respules and Perforomist neb twice daily. ASSESSMENT: 1. Acute severe chronic obstructive pulmonary disease exacerbation in a patient who is a smoker, probably with acute tracheobronchitis. Patient is slow to respond to treatment modalities. 2. Gastroesophageal reflux disease. 3. Primary osteoarthritis of multiple joints. 4. Chronic Crohn's with ulcerative colitis leading to an ileostomy following a total colectomy. 5. Hiatal hernia. 6. Osteoporosis. 7. Chronic nicotine dependence. Patient is a smoker. PLAN: Patient will continue on nebulized bronchodilators, IV Solu-Medrol, and fluids. Pulmonary consult was completed today, please see recommendations under investigations. Discussion was had once again advising the patient against quitting smoking. The patient was seen and examined by me/nurse practitioner and attending/Dr. Austin. The relevant points of the history/physical/diagnoses/plan were discussed and are as dictated above.
[2017-02-24 10:25] LABS: Anion Gap 8 mmol/L; Blood Urea Nitrogen 8 mg/dL (7-17); Calcium 7.9 mg/dL (8.4-10.2); Carbon Dioxide 22 mmol/L (22-30); Chloride 113 mmol/L (98-107); Glucose 166 mg/dL (74-99); Non-African American GFR(MDRD) >60 (>60 ml/min/1.73 sqM); Potassium 3.3 mmol/L (3.5-5.1); Sodium 143 mmol/L (137-145)
[2017-02-24 11:58] LABS: Glucose,Whole Blood 144 mg/dL (75-99)
[2017-02-24 16:54] LABS: Glucose,Whole Blood 140 mg/dL (75-99)
--- NOTE | 2017-02-24 18:26 | P.PN ---
Subjective 56-year-old female patient with known history of COPD with a baseline FEV1 of 36 % of predicted coming in for increased shortness of breath and COPD exacerbation. Patient is well-known to me. She has been maintained on a combination of Breo Ellipta and Tudorza on an outpatient basis. She had been doing well. She had been on no oxygen yet. She also has inflammatory bowel disease and she is on Humira on outpatient basis. The patient presented to the hospital because of worsening shortness of breath. She has a congested cough. She is unable to bring up much of sputum. No pleurisy. No hemoptysis. Chest x -ray is clear. Her condition was progressively getting worse over the past few days. She has been using solution more frequently and she was coughing vigorously. For that reason she was admitted for an acute COPD exacerbation. At the same time, the patient was having some intermittent cramping of her abdomen and she has noted to eat less and she had diminished oral intake. Denied having any diarrhea. No hematemesis. No melanotic stool. She has been afebrile for now. On 02/24/2017 the patient is less short of breath compared to yesterday. Breathing easier. Less spastic. Less wheezing. Responded to bronchitis and systemic steroids. No new complaints otherwise for now. Objective - Vital Signs Vital signs: Vital Signs Temp 97.8 F 02/24/17 15:00 Pulse 108 H 02/24/17 15:50 Resp 16 02/24/17 15:00 BP 105/63 02/24/17 15:00 Pulse Ox 92 L 02/24/17 15:00 Intake & Output 02/23/17 02/24/17 02/24/17 18:59 06:59 18:59 Intake Total 940 400 Balance 940 400 Weight 49.895 kg Intake: Intake, IV Titration 500 Amount Sodium Chloride 0.9% 1, 500 000 ml @ 125 mls/hr IV . Q8H MEENU Rx#:[id number] Oral 440 400 Other: Voiding Method Toilet Toilet # Voids 3 1 1 - Exam Head exam was generally normal. There was no scleral icterus or corneal arcus. Mucous membranes were moist.Neck was supple and without jugular venous distension, thyromegaly, or carotid bruits. Carotids were easily palpable bilaterally. There was no adenopathy. Lung sounds are diminished and there is prolongation of the expiratory phase of breathing and diffuse expiratory wheezes throughout the lung hunter bilaterally.Cardiac exam revealed the PMI to be normally situated and sized. The rhythm was regular and no extrasystoles were noted during several minutes of auscultation. The first and second heart sounds were normal and physiologic splitting of the second heart sound was noted. There were no murmurs, rubs, clicks, or gallops. Abdomen is soft. There is no direct tenderness or rebound tensile guarding. Ileostomy site is intact dry and clean.Examination of the extremities revealed easily palpable radial, femoral and pedal pulses. There was no cyanosis, clubbing or edema. - Labs CBC & Chem 7: 02/24/17 09:01 02/24/17 09:01 Labs: Abnormal Lab Results - Last 24 Hours (Table) 02/23/17 02/24/17 02/24/17 Range/Units 20:30 06:51 09:01 WBC 12.5 H (3.8-10.6) k/uL RBC 3.54 L (3.80-5.40) m/uL MCV 102.5 H (80.0-100.0) fL Neutrophils # 11.6 H (1.3-7.7) k/uL Lymphocytes # 0.5 L (1.0-4.8) k/uL Potassium (3.5-5.1) mmol/L Chloride (98-107) mmol/L Glucose (74-99) mg/dL POC Glucose (mg/dL) 156 H 148 H (75-99) mg/dL Calcium (8.4-10.2) mg/dL 02/24/17 02/24/17 02/24/17 Range/Units 09:01 11:53 16:50 WBC (3.8-10.6) k/uL RBC (3.80-5.40) m/uL MCV (80.0-100.0) fL Neutrophils # (1.3-7.7) k/uL Lymphocytes # (1.0-4.8) k/uL Potassium 3.3 L (3.5-5.1) mmol/L Chloride 113 H (98-107) mmol/L Glucose 166 H (74-99) mg/dL POC Glucose (mg/dL) 144 H 140 H (75-99) mg/dL Calcium 7.9 L (8.4-10.2) mg/dL Assessment and Plan Plan: Assessment 1 acute COPD exacerbation secondary to an acute bronchitis. The patient has no evidence of pneumonia the chest x-ray. She is an increased risk of respiratory infections in general based on the fact that the patient has been maintained on Humira on outpatient basis. 2 shortness of breath secondary to above 3 inflammatory bowel disease/Crohn's disease maintained on Humira 4 chronic immunosuppression secondary to intake of Humira 5 fibromyalgia 6 diverticular ileostomy, a complication of inflammatory bowel disease 7 degenerative arthritis 8 osteoporosis 9 hiatal hernia 10 seasonal ALLERGIC rhinitis 11 smoker Plan Taper steroids. Continue bronchodilators. Continue rest of the inhalers. Early mobility. Ambulation. Tussionex for cough. We'll follow.
--- NOTE | 2017-02-24 18:40 | PN ---
DATE OF SERVICE: 02/24/2017. INTERVAL HISTORY: This is a pleasant 56-year-old patient who presented to the emergency department with shortness of breath. Additionally, patient was feeling generally run down, experiencing fevers, unable to cough. Today, the patient is awake, alert, sitting on the side of the bed, looking anxious, still, yet somehow seems more relaxed. Patient does continue to complain of mild abdominal pain related to her Crohn's. Review of systems done for constitutional, cardiovascular, GI, pulmonary, with relevant findings of above. CURRENT MEDICATIONS: ( ), Tudorza, Tylenol, opium tincture, multivitamin, Breo Ellipta, calcium with vitamin D, ProAir, Ventolin, Humira. PHYSICAL EXAMINATION: VITAL SIGNS: Temperature 97.8, heart rate 107, respiratory rate 16, blood pressure 105/63, oxygen saturation 92% on room air. GENERAL APPEARANCE: Patient is lying in bed, tired-appearing, able to answer questions, continues to be anxious about her current illness but seems more calm. EYES: Pupils equal. Conjunctivae normal. NECK: JVD not raised. Mass not palpable. RESPIRATORY: Effort increased. LUNGS: Poor air and poor air entry noted. Prolonged expiration. CARDIOVASCULAR: S1, S2 normal. No edema noted. ABDOMEN: Soft, mild tenderness, ileostomy in place. Liver and spleen not palpable. PSYCHIATRY: Alert and oriented x3. Patient mood continues to be tense and anxious. Affect is normal. INVESTIGATIONS: White blood cell count 12.5 down from 13.3 on 02/23. Mean corpuscular value 102.5 slightly increased from previous day's value. Potassium 3.3, chloride 113, calcium 7.9. Pulmonology continues to follow. ASSESSMENT: 1. Acute severe chronic obstructive pulmonary disease exacerbation in patient who is a smoker, probably with acute tracheobronchitis. Patient is slow to respond to treatment modalities. 2. Gastroesophageal reflux disease. 3. Primary osteoarthritis of multiple joints. 4. Chronic Crohn's with ulcerative colitis leading to an ileostomy following a total colectomy. 5. Hiatal hernia. 6. Osteoporosis. 7. Chronic nicotine dependence. Patient is a current smoker. PLAN: Patient will continue on nebulized bronchodilators, IV Solu-Medrol and IV fluids. Pulmonology continues to follow patient and will continue their recommendations of empiric Levaquin antibiotic coverage, DuoNeb treatments around the clock, continuation of IV Solu-Medrol, Tussionex for the cough, Pulmicort Respules and Perforomist nebs twice daily. Patient was asked how she felt and planning to discharge patient possibly tomorrow, Monday02/25/2017. Patient was reminded the necessity of quitting smoking. The patient was seen and examined by me/nurse practitioner and the attending/Dr. Austin. The relevant points of the history/physical/diagnosis/plan were discussed and are as dictated above.
[2017-02-24 21:16] LABS: Glucose,Whole Blood 162 mg/dL (75-99)
[2017-02-24] MEDS: MELATONIN 3 MG TABLET PO SCH (21:38)
[2017-02-25] MEDS: IPRATROPIUM-ALBUTEROL 3 ML NEB INHALATION SCH ×5 (03:53→19:00)
[2017-02-25] MEDS: Acetaminophen-Codeine 300-30mg TAB PO SCH ×4 (05:59→23:25)
[2017-02-25] MEDS: FORMOTEROL FUMARATE 20 MCG/2 ML NEBU INHALATION SCH (07:43)
[2017-02-25] MEDS: BUDESONIDE 1 MG/2 ML NEBU INHALATION SCH (07:43)
[2017-02-25 07:47] LABS: Glucose,Whole Blood 128 mg/dL (75-99)
[2017-02-25 08:06] LABS: Basophils % (A) 0 %; CH 32.4; CHCM 31.7; Eosinophils % (A) 0 %; HCT 35.8 % (34.0-46.0); HDW 2.67; HGB 11.6 gm/dL (11.4-16.0); Luc # (Auto) 0.09; Luc % (Auto) 1; Lymphocytes # (A) 0.4 k/uL (1.0-4.8); Lymphocytes % (A) 4 %; MCH 33.3 pg (25.0-35.0); MCHC 32.3 g/dL (31.0-37.0); Macrocytosis Slight; Monocytes # (A) 0.5 k/uL (0-1.0); Monocytes % (A) 4 %; Neutrophils # (A) 10.2 k/uL (1.3-7.7); Neutrophils % (A) 91 %; RBC 3.48 m/uL (3.80-5.40); RDW 14.2 % (11.5-15.5); WBC 11.2 k/uL (3.8-10.6); WBC (Perox) 11.41
[2017-02-25] MEDS: OPIUM PO SCH ×4 (08:22→21:43)
[2017-02-25] MEDS: NICOTINE 21MG/24HR PATCH TRANSDERM SCH (08:22)
[2017-02-25] MEDS: ONDANSETRON 4 MG/2 ML VIAL IVP PRN ×2 (08:22→17:31)
[2017-02-25] MEDS: INSULIN LISPRO (humaLOG) 300 UNIT/3 ML VIAL SQ SCH ×4 (08:22→21:42)
[2017-02-25 08:23] LABS: Anion Gap 5 mmol/L; Blood Urea Nitrogen 7 mg/dL (7-17); Calcium 7.7 mg/dL (8.4-10.2); Carbon Dioxide 24 mmol/L (22-30); Chloride 113 mmol/L (98-107); Glucose 132 mg/dL (74-99); Non-African American GFR(MDRD) >60 (>60 ml/min/1.73 sqM); Potassium 3.7 mmol/L (3.5-5.1); Sodium 142 mmol/L (137-145)
[2017-02-25] MEDS: methylPREDNISolone SOD SUCCI 40 MG/ML 1 ML VIAL IV SCH (08:23)
[2017-02-25] MEDS: CHLORPHEN-HYDROcod 8-10mg/5ml 5 ML ORAL.SYRG PO SCH ×2 (08:37→21:42)
[2017-02-25] MEDS: MERCAPTOPURINE 50 MG TAB PO SCH ×2 (09:08→23:26)
[2017-02-25 11:27] LABS: Glucose,Whole Blood 145 mg/dL (75-99)
[2017-02-25] MEDS: ALPRAZolam 0.5 MG TAB PO PRN ×3 (12:06→21:42)
--- NOTE | 2017-02-25 13:00 | P.PN ---
Subjective 56-year-old female patient with known history of COPD with a baseline FEV1 of 36 % of predicted coming in for increased shortness of breath and COPD exacerbation. Patient is well-known to me. She has been maintained on a combination of Breo Ellipta and Tudorza on an outpatient basis. She had been doing well. She had been on no oxygen yet. She also has inflammatory bowel disease and she is on Humira on outpatient basis. The patient presented to the hospital because of worsening shortness of breath. She has a congested cough. She is unable to bring up much of sputum. No pleurisy. No hemoptysis. Chest x -ray is clear. Her condition was progressively getting worse over the past few days. She has been using solution more frequently and she was coughing vigorously. For that reason she was admitted for an acute COPD exacerbation. At the same time, the patient was having some intermittent cramping of her abdomen and she has noted to eat less and she had diminished oral intake. Denied having any diarrhea. No hematemesis. No melanotic stool. She has been afebrile for now. On 02/24/2017 the patient is less short of breath compared to yesterday. Breathing easier. Less spastic. Less wheezing. Responded to bronchitis and systemic steroids. No new complaints otherwise for now. On , the patient is quite anxious and short of breath. She is reporting that the drop in the steroid dose made her more short of breath. At the same time she has noted some increased side effects of the combination of Perforomist and Pulmicort neb as treatments. Note that the patient is on Breo at home as maintenance for COPD. Her baseline FEV1 is noted of 36% of predicted. At the same time the patient is having increased output through her ileostomy bag. She has also some limited abdominal cramping. No fever. No chills. No other complaints otherwise. Objective - Vital Signs Vital signs: Vital Signs Temp 96.8 F L 02/25/17 07:00 Pulse 90 02/25/17 11:07 Resp 18 02/25/17 07:00 BP 128/84 02/25/17 07:00 Pulse Ox 93 L 02/25/17 07:22 Intake & Output 02/24/17 02/25/17 02/25/17 18:59 06:59 18:59 Other: # Voids 1 2 1 - Exam Head exam was generally normal. There was no scleral icterus or corneal arcus. Mucous membranes were moist.Neck was supple and without jugular venous distension, thyromegaly, or carotid bruits. Carotids were easily palpable bilaterally. There was no adenopathy. Lung sounds are diminished and there is prolongation of the expiratory phase of breathing and diffuse expiratory wheezes throughout the lung hunter bilaterally.Cardiac exam revealed the PMI to be normally situated and sized. The rhythm was regular and no extrasystoles were noted during several minutes of auscultation. The first and second heart sounds were normal and physiologic splitting of the second heart sound was noted. There were no murmurs, rubs, clicks, or gallops. Abdomen is soft. There is no direct tenderness or rebound tensile guarding. Ileostomy site is intact dry and clean.Examination of the extremities revealed easily palpable radial, femoral and pedal pulses. There was no cyanosis, clubbing or edema. - Labs CBC & Chem 7: 02/25/17 07:26 02/25/17 07:26 Labs: Abnormal Lab Results - Last 24 Hours (Table) 02/24/17 02/24/17 02/25/17 Range/Units 16:50 21:13 07:26 WBC 11.2 H (3.8-10.6) k/uL RBC 3.48 L (3.80-5.40) m/uL MCV 103.0 H (80.0-100.0) fL Neutrophils # 10.2 H (1.3-7.7) k/uL Lymphocytes # 0.4 L (1.0-4.8) k/uL Chloride (98-107) mmol/L Glucose (74-99) mg/dL POC Glucose (mg/dL) 140 H 162 H (75-99) mg/dL Calcium (8.4-10.2) mg/dL 02/25/17 02/25/17 02/25/17 Range/Units 07:26 07:39 11:24 WBC (3.8-10.6) k/uL RBC (3.80-5.40) m/uL MCV (80.0-100.0) fL Neutrophils # (1.3-7.7) k/uL Lymphocytes # (1.0-4.8) k/uL Chloride 113 H (98-107) mmol/L Glucose 132 H (74-99) mg/dL POC Glucose (mg/dL) 128 H 145 H (75-99) mg/dL Calcium 7.7 L (8.4-10.2) mg/dL Assessment and Plan Plan: Assessment 1 acute COPD exacerbation secondary to an acute bronchitis. The patient has no evidence of pneumonia the chest x-ray. She is an increased risk of respiratory infections in general based on the fact that the patient has been maintained on Humira on outpatient basis. 2 shortness of breath secondary to above 3 inflammatory bowel disease/Crohn's disease maintained on Humira 4 chronic immunosuppression secondary to intake of Humira 5 fibromyalgia 6 diverticular ileostomy, a complication of inflammatory bowel disease 7 degenerative arthritis 8 osteoporosis 9 hiatal hernia 10 seasonal ALLERGIC rhinitis 11 smoker Plan We'll increase his IV Solu-Medrol back to 60 mg IV push every 6 hours. Will stop the Perforomist and Pulmicort neb last treatment [id number] and will put the patient on Symbicort 160/4.5, 2 puffs twice a day. We will check stool for C. diff. We will start the patient on Xanax 0.5 mg every 6-8 hours on a when necessary basis for anxiety. We'll offer 10 mg of Ambien at nighttime during sleep. We'll check stool if diarrhea recurs. We'll follow.
[2017-02-25] MEDS: SODIUM CHLORIDE 0.9% 1,000 ML IV SCH ×2 (13:53→21:41)
[2017-02-25] MEDS: methylPREDNISolone SOD SUCCI 125 MG/2 ML VIAL IV SCH ×3 (13:55→23:25)
--- NOTE | 2017-02-25 16:35 | PN ---
Patient is admitted for COPD exacerbation. Patient is also complaining of multiple episodes of diarrhea; patient complained of about 7 episodes of diarrhea yesterday and 4 episodes so far, although it is not reflected on her electrolyte panel. As of now, I will obtain an ESR and CRP. My suspicion is low that she is having such an amount of diarrhea, as it is not evidenced by anyone, and labs do not reflect that. If she has diarrhea again, will obtain C difficile testing, though, and I will also obtain ESR and CRP. Patient's COPD appears to be doing very well, although she continues to complain that because of the new breathing treatments she became hypoxic, although her lungs are fairly clear to auscultation with almost minimal to no wheezing. REVIEW OF SYSTEMS: CARDIOVASCULAR: No chest pain, no orthopnea, no PND, no palpitations. PULMONARY: As described in HPI. GASTROINTESTINAL: As described in HPI. NEUROLOGIC: No headaches, no weakness, no numbness. Medications were reviewed. PHYSICAL EXAMINATION: VITAL SIGNS: Temperature 96.8, pulse of 90, respiratory rate of 18. Blood pressure is 128/84. Saturating at 93% on room air. GENERAL: The patient is alert and oriented x3, not in any acute distress. Well developed, well nourished. HEENT: Pupils are round and equally reacting to light. EOMI. No scleral icterus. No conjunctival pallor. Normocephalic, atraumatic. No pharyngeal erythema. No thyromegaly. CARDIOVASCULAR: S1 and S2 present. No murmurs, rubs, or gallops. PULMONARY: As described in HPI. ABDOMEN: Soft, nontender, nondistended, normoactive bowel sounds. No palpable organomegaly. MUSCULOSKELETAL: No joint swelling or deformity. EXTREMITIES: No cyanosis, clubbing, or pedal edema. NEUROLOGICAL: Gross neurological examination did not reveal any focal deficits. SKIN: No rashes. LABORATORY DATA: CBC, CMP are abnormal for elevated WBC count of 11,200, chloride of 113. ASSESSMENT AND PLAN: 1. Acute hypercapnic respiratory failure secondary to chronic obstructive pulmonary disease exacerbation. Continue with systemic steroids, inhalational treatments. 2. History of Crohn's colitis and inflammatory bowel disease. My suspicion is low that patient has an exacerbation now. Will obtain ESR and CRP. Continue with Humira. There is no reason that she would have this exacerbation, as she is on steroids as well as Humira. 3. Chronic immunosuppression secondary to Humira. 4. Fibromyalgia. Patient mostly appears to have narcotic-seeking behavior rather than actual fibromyalgia or exacerbation of Crohn's at this time. Patient has diverting ileostomy. 5. Hiatal hernia. 6. Diverting ileostomy. 7. Degenerative arthritis. PLAN: Continue systemic steroids, inhalational treatments. Possibility of discharge tomorrow. Check C difficile.
[2017-02-25 16:52] LABS: Glucose,Whole Blood 135 mg/dL (75-99)
[2017-02-25] MEDS: SYMBICORT 160-4.5 MCG INHALER INHALATION SCH (19:00)
[2017-02-25] MEDS ORDERED: IPRATROPIUM-ALBUTEROL 3 ML NEB INHALATION PRN (19:26)
[2017-02-25 21:24] LABS: Glucose,Whole Blood 158 mg/dL (75-99)
[2017-02-25] MEDS: ZOLPIDEM 10 MG TAB PO PRN (21:42)
[2017-02-25] MEDS: MELATONIN 3 MG TABLET PO SCH (21:42)
[2017-02-26] MEDS: ALPRAZolam 0.5 MG TAB PO PRN ×3 (02:42→18:42)
[2017-02-26] MEDS: ONDANSETRON 4 MG/2 ML VIAL IVP PRN ×3 (02:42→19:45)
[2017-02-26] MEDS: Acetaminophen-Codeine 300-30mg TAB PO SCH ×3 (05:29→18:18)
[2017-02-26] MEDS: methylPREDNISolone SOD SUCCI 125 MG/2 ML VIAL IV SCH ×3 (05:29→18:19)
[2017-02-26] MEDS: SODIUM CHLORIDE 0.9% 1,000 ML IV SCH ×3 (05:30→19:55)
[2017-02-26 07:42] LABS: Glucose,Whole Blood 144 mg/dL (75-99)
[2017-02-26] MEDS: IPRATROPIUM-ALBUTEROL 3 ML NEB INHALATION SCH ×5 (08:02→19:40)
[2017-02-26] MEDS: SYMBICORT 160-4.5 MCG INHALER INHALATION SCH ×3 (08:02→19:40)
[2017-02-26 09:31] LABS: Basophils % (A) 0 %; CH 32.3; CHCM 31.8; Eosinophils % (A) 0 %; HCT 38.8 % (34.0-46.0); HDW 2.73; HGB 12.6 gm/dL (11.4-16.0); Luc # (Auto) 0.09; Luc % (Auto) 1; Lymphocytes # (A) 0.7 k/uL (1.0-4.8); Lymphocytes % (A) 5 %; MCH 33.3 pg (25.0-35.0); MCHC 32.5 g/dL (31.0-37.0); MCV 102.4 fL (80.0-100.0); Macrocytosis Slight; Mean Platelet Volume 7.1; Monocytes # (A) 0.5 k/uL (0-1.0); Monocytes % (A) 4 %; Neutrophils # (A) 11.2 k/uL (1.3-7.7); Neutrophils % (A) 90 %; RBC 3.79 m/uL (3.80-5.40); RDW 14.2 % (11.5-15.5); WBC 12.5 k/uL (3.8-10.6); WBC (Perox) 12.92
[2017-02-26] MEDS: NICOTINE 21MG/24HR PATCH TRANSDERM SCH (09:36)
[2017-02-26] MEDS: OPIUM PO SCH ×4 (09:36→22:00)
[2017-02-26] MEDS: MERCAPTOPURINE 50 MG TAB PO SCH ×2 (09:36→19:47)
[2017-02-26] MEDS: CHLORPHEN-HYDROcod 8-10mg/5ml 5 ML ORAL.SYRG PO SCH ×2 (09:36→19:54)
[2017-02-26] MEDS: INSULIN LISPRO (humaLOG) 300 UNIT/3 ML VIAL SQ SCH ×4 (09:36→21:42)
[2017-02-26 10:17] LABS: Anion Gap 9 mmol/L; Blood Urea Nitrogen 8 mg/dL (7-17); Calcium 7.8 mg/dL (8.4-10.2); Carbon Dioxide 29 mmol/L (22-30); Chloride 105 mmol/L (98-107); Glucose 127 mg/dL (74-99); Non-African American GFR(MDRD) >60 (>60 ml/min/1.73 sqM); Potassium 3.6 mmol/L (3.5-5.1); Sodium 143 mmol/L (137-145)
[2017-02-26 11:46] LABS: Glucose,Whole Blood 135 mg/dL (75-99)
--- NOTE | 2017-02-26 12:29 | PN ---
Patient admitted with COPD exacerbation. Patient also has Crohn's colitis without any acute exacerbation at this point of time. I did obtain a CEA of patient is complaining of diarrhea which improved at this point of time because of which we did not obtain Clostridium difficile testing. Patient's ESR and CRP, CRP is elevated. ESR is within normal limits and diarrhea improved at this point of time. REVIEW OF SYSTEMS: CARDIOVASCULAR: No chest pain, no orthopnea, no PND, no palpitations. PULMONARY: Continued shortness of breath. Patient desaturating with minimal ambulation. Does not use any oxygen at home. GASTROINTESTINAL: No diarrhea, nausea or vomiting. No abdominal pain. Normoactive bowel sounds. NEUROLOGIC: No headaches, no weakness, no numbness. Medications were reviewed. PHYSICAL EXAMINATION: VITAL SIGNS: Temperature 96.5, pulse of 88, respiratory rate of 16, blood pressure is 131/77. Saturating at 94% on 2 L O2 by nasal cannula. GENERAL: The patient is alert and oriented x3, not in any acute distress. Well developed, well nourished. HEENT: Pupils are round and equally reacting to light. EOMI. No scleral icterus. No conjunctival pallor. Normocephalic, atraumatic. No pharyngeal erythema. No thyromegaly. CARDIOVASCULAR: S1 and S2 present. No murmurs, rubs, or gallops. PULMONARY: Patient does have expiratory wheezing. Fairly good air entry into bilateral lung hunter. No crackles were appreciated. ABDOMEN: Soft, nontender, nondistended, normoactive bowel sounds. No palpable organomegaly. MUSCULOSKELETAL: No joint swelling or deformity. EXTREMITIES: No cyanosis, clubbing, or pedal edema. NEUROLOGICAL: Gross neurological examination did not reveal any focal deficits. SKIN: No rashes. LABORATORY DATA: CBC, BMP are abnormal for elevated WBC count 5500, ESR and CRP is as mentioned above. ASSESSMENT AND PLAN: 1. Acute hypercapnic respiratory secondary to chronic obstructive pulmonary disease exacerbation , continue with system steroids and inhalational treatments. We will watch her one more day and if patient may end up needing home oxygen. Will continue with systemic steroids and inhalation treatments. 2. History of Crohn's colitis for which patient is on Humira, now on systemic steroids for COPD, which will continue. 3. Chronic immunosuppression from Humira. 4. Fibromyalgia. 5. Hiatal hernia. 6. Degenerative arthritis. PLAN: As mentioned above.
[2017-02-26 16:52] LABS: Glucose,Whole Blood 149 mg/dL (75-99)
[2017-02-26] MEDS: MELATONIN 3 MG TABLET PO SCH (19:55)
[2017-02-26 21:25] LABS: Glucose,Whole Blood 126 mg/dL (75-99)
[2017-02-26] MEDS: ZOLPIDEM 10 MG TAB PO PRN (22:00)
[2017-02-27] MEDS: methylPREDNISolone SOD SUCCI 125 MG/2 ML VIAL IV SCH ×2 (00:03→06:17)
[2017-02-27] MEDS: Acetaminophen-Codeine 300-30mg TAB PO SCH ×5 (00:05→23:06)
[2017-02-27] MEDS: ONDANSETRON 4 MG/2 ML VIAL IVP PRN ×3 (04:11→20:43)
[2017-02-27] MEDS: SODIUM CHLORIDE 0.9% 1,000 ML IV SCH ×3 (04:14→20:48)
[2017-02-27] MEDS: SYMBICORT 160-4.5 MCG INHALER INHALATION SCH ×2 (07:18→19:42)
[2017-02-27] MEDS: IPRATROPIUM-ALBUTEROL 3 ML NEB INHALATION SCH ×4 (07:18→19:44)
[2017-02-27 07:21] LABS: Glucose,Whole Blood 133 mg/dL (75-99)
[2017-02-27] MEDS: MERCAPTOPURINE 50 MG TAB PO SCH ×2 (08:23→20:47)
[2017-02-27] MEDS: INSULIN LISPRO (humaLOG) 300 UNIT/3 ML VIAL SQ SCH ×4 (08:23→21:53)
[2017-02-27] MEDS: CHLORPHEN-HYDROcod 8-10mg/5ml 5 ML ORAL.SYRG PO SCH ×2 (08:23→20:47)
[2017-02-27] MEDS: NICOTINE 21MG/24HR PATCH TRANSDERM SCH (08:23)
[2017-02-27] MEDS: OPIUM PO SCH ×4 (08:23→20:48)
[2017-02-27] MEDS: ALPRAZolam 0.5 MG TAB PO PRN (08:27)
[2017-02-27 10:36] LABS: Basophils % (A) 0 %; CHCM 32.4; Eosinophils # (A) 0.1 k/uL (0-0.7); Eosinophils % (A) 0 %; HCT 40.7 % (34.0-46.0); HDW 2.69; HGB 13.3 gm/dL (11.4-16.0); Luc # (Auto) 0.08; Luc % (Auto) 1; Lymphocytes # (A) 0.6 k/uL (1.0-4.8); Lymphocytes % (A) 4 %; MCH 33.6 pg (25.0-35.0); MCHC 32.8 g/dL (31.0-37.0); MCV 102.4 fL (80.0-100.0); Macrocytosis Slight; Mean Platelet Volume 6.9; Monocytes # (A) 0.5 k/uL (0-1.0); Monocytes % (A) 4 %; Neutrophils # (A) 13.2 k/uL (1.3-7.7); Neutrophils % (A) 92 %; RBC 3.97 m/uL (3.80-5.40); RDW 14.1 % (11.5-15.5); WBC 14.4 k/uL (3.8-10.6); WBC (Perox) 15.54
--- NOTE | 2017-02-27 10:48 | XR ---
EXAMINATION TYPE: XR abdomen 2V DATE OF EXAM: 02/27/2017 10:43 AM COMPARISON: NONE HISTORY: Abdominal pain TECHNIQUE: Supine and upright views of the nurse. FINDINGS: There are dilated loops of small bowel measuring up to 5 cm. There is a possibility of air within the distal small bowel. Ostomy is noted right lower quadrant. I do not see evidence for pneumo peritoneum. Suspect right-sided nephrolithiasis. IMPRESSION: Correlate for small bowel obstruction.
[2017-02-27 10:59] LABS: Anion Gap 10 mmol/L; Blood Urea Nitrogen 12 mg/dL (7-17); Calcium 8.2 mg/dL (8.4-10.2); Carbon Dioxide 30 mmol/L (22-30); Chloride 99 mmol/L (98-107); Glucose 140 mg/dL (74-99); Non-African American GFR(MDRD) >60 (>60 ml/min/1.73 sqM); Potassium 3.3 mmol/L (3.5-5.1); Sodium 139 mmol/L (137-145)
[2017-02-27] MEDS ORDERED: MORPHINE SULFATE 4 MG/ML SYRINGE IVP PRN (11:57)
[2017-02-27] MEDS ORDERED: Potassium Replacement Protocol 1 EACH MISC MISCELLANE PRN (12:02)
[2017-02-27] MEDS: KETOROLAC 30 MG/ML 1 ML VIAL IVP SCH ×3 (12:20→23:07)
[2017-02-27 12:40] LABS: Glucose,Whole Blood 132 mg/dL (75-99)
[2017-02-27] MEDS: LORazepam 2 MG/ML SYRINGE IV PRN ×2 (12:48→20:55)
[2017-02-27] MEDS: POTASSIUM CHLORIDE 10 MEQ, LIDOCAINE 2% INJ 10 MG in SODIUM CHLORIDE 0.9% 100 ML IV SCH ×3 (12:48→15:50)
--- NOTE | 2017-02-27 14:04 | PN ---
Patient is admitted with COPD exacerbation, on systemic steroids but he is getting better actually. Patient today morning, started having abdominal pain, abdominal distention and we did get abdominal flatplate, is highly suspicious for bowel obstruction. Patient does have history of Crohn's disease and there are dilated bowel loops because and put in an NG tube, drained about 700 mL. Gastroenterology as well as Surgery will be consulted. Gastroenterology because of her Crohn's history and Surgery for partial small bowel obstruction. Patient will be given ketorolac for pain and if that does not control her pain, patient will be started on morphine. Try to avoid narcotics as much as possible but patient has an ileostomy. Patient at this point of time does not have any abdominal rigidity after NG-tube patient. Patient's abdomen is soft, because of which I am not starting her on antibiotics and if Surgery feels patient will need antibiotics, will start her on either the Zosyn or levofloxacin and metronidazole combination at that time. REVIEW OF SYSTEMS: CARDIOVASCULAR: No chest pain, no orthopnea, no PND, no palpitations. PULMONARY: Denied any shortness of breath. No cough or hemoptysis. GASTROINTESTINAL: As described in HPI. NEUROLOGIC: No headaches, no weakness, no numbness. Medications were reviewed. Patient was started on IV normal saline at 125 mL/hour and other pain medications as mentioned above and patient's systemic steroids were changed to oral steroids. PHYSICAL EXAMINATION: Temperature 96.7, pulse of 72, respiratory rate of 16, blood pressure is 140/83, saturating at 94% on 2 L of nasal cannula. ABDOMINAL EXAMINATION: Patient's abdominal distention improved. Patient's abdomen is soft now, no rebound or rigidity. GENERAL: The patient is alert and oriented x3, not in any acute distress. Well developed, well nourished. HEENT: Pupils are round and equally reacting to light. EOMI. No scleral icterus. No conjunctival pallor. Normocephalic, atraumatic. No pharyngeal erythema. No thyromegaly. CARDIOVASCULAR: S1 and S2 present. No murmurs, rubs, or gallops. PULMONARY: Chest is clear to auscultation, no wheezing or crackles. MUSCULOSKELETAL: No joint swelling or deformity. EXTREMITIES: No cyanosis, clubbing, or pedal edema. NEUROLOGICAL: Gross neurological examination did not reveal any focal deficits. SKIN: No rashes. LABORATORY DATA: Basic metabolic profile and CBC are significant for low potassium, which will be supplemented. ASSESSMENT AND PLAN: 1. Acute hypercapnic respiratory failure secondary to chronic obstructive pulmonary disease exacerbation. 2. Partial small bowel obstruction with a history of Crohn's disease. Crohn's disease without any significant exacerbation. 3. Chronic immunosuppression on Humira. 4. Fibromyalgia. 5. Hiatal hernia. 6. Degenerative arthritis. PLAN: Continue with systemic steroids, inhalational treatments, nasogastric tube, surgical consultation and GI consultation. Leukocytosis secondary to reactive response from small bowel obstruction. No evidence of infection at this point of time on bowel rupture at least clinically, but further antibiotic will be rated if Surgical Services feels she will require antibiotics.
--- NOTE | 2017-02-27 15:53 | P.PN ---
Progress Note - Text Patient seen and evaluated. Please see full dictated report in consultation. NG tube readjusted for function. Will need CT of the abdomen and pelvis for additional imaging.
[2017-02-27] MEDS ORDERED: SCOPOLAMINE 1.5MG/72HR PATCH TRANSDERM STA (15:55)
--- NOTE | 2017-02-27 15:58 | XR ---
EXAMINATION TYPE: XR chest 1V DATE OF EXAM: 02/27/2017 3:50 PM HISTORY: Shortness of breath. COMPARISON: 02/27/2017 TECHNIQUE: Single view of the chest is submitted. FINDINGS: NG tube is seen coursing into the stomach. Demonstrated are scattered senescent parenchymal change. There is no evidence for focal infiltrate. The heart is stable. Hilar and mediastinal structures are within normal limits. Degenerative changes are seen of the dorsal spine. IMPRESSION: 1. Stable chest. NG tube is seen coursing into the stomach.
--- NOTE | 2017-02-27 16:01 | XR ---
EXAMINATION TYPE: XR chest 1V DATE OF EXAM: 02/27/2017 3:54 PM CLINICAL HISTORY: NG tube adjustment. TECHNIQUE: Single AP portable upright view labeled 3:39 PM on PACS of the chest is obtained. COMPARISON: Chest x-ray from earlier today labeled 3:37 PM on PACS. FINDINGS: Nasogastric tube is coiled below left hemidiaphragm, less amount of catheter below diaphra gm as seen after readjustment. There is persistent small bilateral pleural effusions and patchy bibas ilar atelectasis and/or infiltrate. There is background chronic emphysematous change. Cardiac silhoue tte size is stable and within normal limits. Old right mid rib fractures are redemonstrated. Osseous structures are demineralized. Cholecystectomy clips are redemonstrated. IMPRESSION: Some retraction of nasogastric tube with satisfactory positioning present.
--- NOTE | 2017-02-27 16:02 | XR ---
EXAMINATION TYPE: XR chest 1V DATE OF EXAM: 02/27/2017 3:54 PM HISTORY: Shortness of breath. COMPARISON: 03/18/2017 TECHNIQUE: Single view of the chest is submitted. FINDINGS: Demonstrated are scattered senescent parenchymal change. There is no evidence for focal infiltrate. The heart is stable. Hilar and mediastinal structures are within normal limits. Degenerative changes are seen of the dorsal spine. IMPRESSION: 1.
[2017-02-27] MEDS: METOCLOPRAMIDE 5 MG/ML 2 ML VIAL IVP SCH ×2 (16:34→23:07)
[2017-02-27] MEDS: HYDROmorphone 1 MG/ML 1 ML SYRINGE IVP PRN ×2 (16:35→20:44)
[2017-02-27 17:21] LABS: Glucose,Whole Blood 105 mg/dL (75-99)
--- NOTE | 2017-02-27 17:23 | P.PN ---
Subjective Principal diagnosis: Acute exacerbation of severe COPD 56-year-old female patient with known history of COPD with a baseline FEV1 of 36 % of predicted coming in for increased shortness of breath and COPD exacerbation. Patient is well-known to me. She has been maintained on a combination of Breo Ellipta and Tudorza on an outpatient basis. She had been doing well. She had been on no oxygen yet. She also has inflammatory bowel disease and she is on Humira on outpatient basis. The patient presented to the hospital because of worsening shortness of breath. She has a congested cough. She is unable to bring up much of sputum. No pleurisy. No hemoptysis. Chest x -ray is clear. Her condition was progressively getting worse over the past few days. She has been using solution more frequently and she was coughing vigorously. For that reason she was admitted for an acute COPD exacerbation. At the same time, the patient was having some intermittent cramping of her abdomen and she has noted to eat less and she had diminished oral intake. Denied having any diarrhea. No hematemesis. No melanotic stool. She has been afebrile for now. On 02/24/2017 the patient is less short of breath compared to yesterday. Breathing easier. Less spastic. Less wheezing. Responded to bronchitis and systemic steroids. No new complaints otherwise for now. On , the patient is quite anxious and short of breath. She is reporting that the drop in the steroid dose made her more short of breath. At the same time she has noted some increased side effects of the combination of Perforomist and Pulmicort neb as treatments. Note that the patient is on Breo at home as maintenance for COPD. Her baseline FEV1 is noted of 36% of predicted. At the same time the patient is having increased output through her ileostomy bag. She has also some limited abdominal cramping. No fever. No chills. No other complaints otherwise. On 02/27/2017, patient is feeling a bit better, breathing easier, however she seems to be developing some abdominal distention and abdominal cramps, with decreased output in the ileostomy bag. Patient was seen by general surgery on consultation, nasogastric tube was to be placed, and CT of the abdomen and pelvis was ordered. Abdominal films are suggestive of small bowel obstruction CBC showed leukocytosis with WBC count of 14.4. Basic metabolic profile showed hypokalemia with potassium of 3.3. Objective - Vital Signs Vital signs: Vital Signs Temp 98.1 F 02/27/17 15:00 Pulse 83 02/27/17 15:00 Resp 16 02/27/17 15:00 BP 133/77 02/27/17 15:00 Pulse Ox 97 02/27/17 15:00 Intake & Output 02/26/17 02/27/17 02/27/17 18:59 06:59 18:59 Intake Total 1000 300 Output Total 800 Balance 1000 300 -800 Intake: Intake, IV Titration 1000 Amount Sodium Chloride 0.9% 1, 1000 000 ml @ 125 mls/hr IV . Q8H MEENU Rx#:[id number] Oral 300 Output: Gastric Drainage 800 Other: Voiding Method Toilet # Voids 1 1 2 - Exam Head exam was generally normal. There was no scleral icterus or corneal arcus. Mucous membranes were moist.Neck was supple and without jugular venous distension, thyromegaly, or carotid bruits. Carotids were easily palpable bilaterally. There was no adenopathy. Lung sounds are diminished and there is prolongation of the expiratory phase of breathing and diffuse expiratory wheezes throughout the lung hunter bilaterally.Cardiac exam revealed the PMI to be normally situated and sized. The rhythm was regular and no extrasystoles were noted during several minutes of auscultation. The first and second heart sounds were normal and physiologic splitting of the second heart sound was noted. There were no murmurs, rubs, clicks, or gallops. Abdomen is soft. There is no direct tenderness or rebound tensile guarding. Ileostomy site is intact dry and clean.Examination of the extremities revealed easily palpable radial, femoral and pedal pulses. There was no cyanosis, clubbing or edema. - Labs CBC & Chem 7: 02/27/17 10:13 02/27/17 10:13 Labs: Abnormal Lab Results - Last 24 Hours (Table) 02/26/17 02/27/17 02/27/17 Range/Units 20:57 07:18 10:13 WBC 14.4 H (3.8-10.6) k/uL MCV 102.4 H (80.0-100.0) fL Neutrophils # 13.2 H (1.3-7.7) k/uL Lymphocytes # 0.6 L (1.0-4.8) k/uL Potassium (3.5-5.1) mmol/L Glucose (74-99) mg/dL POC Glucose (mg/dL) 126 H 133 H (75-99) mg/dL Calcium (8.4-10.2) mg/dL 02/27/17 02/27/17 Range/Units 10:13 12:19 WBC (3.8-10.6) k/uL MCV (80.0-100.0) fL Neutrophils # (1.3-7.7) k/uL Lymphocytes # (1.0-4.8) k/uL Potassium 3.3 L (3.5-5.1) mmol/L Glucose 140 H (74-99) mg/dL POC Glucose (mg/dL) 132 H (75-99) mg/dL Calcium 8.2 L (8.4-10.2) mg/dL Assessment and Plan Plan: 1 acute COPD exacerbation secondary to an acute bronchitis. The patient has no evidence of pneumonia the chest x-ray. She is an increased risk of respiratory infections in general based on the fact that the patient has been maintained on Humira on outpatient basis. 2 shortness of breath secondary to above 3 inflammatory bowel disease/Crohn's disease maintained on Humira 4 chronic immunosuppression secondary to intake of Humira 5 fibromyalgia 6 diverticular ileostomy, a complication of inflammatory bowel disease 7 degenerative arthritis 8 osteoporosis 9 hiatal hernia 10 seasonal ALLERGIC rhinitis 11 smoker Recommendation: Continue present course of bronchodilators, general surgery is addressing her GI issues, and nasogastric tube was placed, we'll continue to follow. Time with Patient: Less than 30
--- NOTE | 2017-02-27 17:28 | P.GSCN ---
History of Present Illness Consult date: 02/27/17 Reason for Consult: Small bowel obstruction Requesting physician: Lokesh Austin History of present illness: The patient is a 56-year-old female who was admitted 6 days ago for acute exacerbation of COPD. Separately she has a long-standing history of Crohn's disease with multiple bowel obstructions in the past as well as multiple abdominal surgeries. She reports her last surgery was in [address] Bowman. She also reports having acute onset abdominal pain within the last 24 hours after eating a hamburger. A nasogastric tube has been placed earlier this morning with over 1500 mL of brown succunt. She still complains of moderate abdominal pain of the lower abdomen of burning sensation. She also reports decreased output from her ileostomy since last night. Abdominal x-ray has been obtained consistent with bowel obstruction hence general surgery consultation. Review of Systems CONSTITUTIONAL: Denies any fever or chills. HEENT: Denies any trouble with vision, hearing or nosebleeds. No difficulty swallowing. LYMPHATIC: The patient denies any lumps and bumps around the neck. ENDOCRINE: Denies any thyroid disorders. Denies any blood sugar glucose intolerance. RESPIRATORY: Has troubles with breathing hence her admission. Denies recent distant exertion. CARDIOVASCULAR: Denies palpitations, or recent heart attacks. GASTROINTESTINAL: Has ileostomy with multiple bowel obstructions in the past. Please see HPI for further details. History of [id number] Crohn's disease. Her associate professor of pathology is Dr. Lola Ram. Previous history of GI bleed including reflux disease. GENITOURINARY: Denies any blood in urine or increased urinary frequency. MUSCULOSKELETAL: Has back pain, stiffness, joint arthritis. NEUROLOGIC: Denies any numbness or tingling along the distal extremities. No seizure disorders or headaches. PSYCHIATRIC: Denies depression or suidical ideation. HEMATOLOGIC: Denies any abnormal bleeding or bruising. Past Medical History Past Medical History: COPD, Fibromyalgia, GERD/Reflux, GI Bleed, Osteoarthritis (OA), Pneumonia Additional Past Medical History / Comment(s): COPD, severe with an FEV1 of 36% of predicted, crohn's, bowel obstructions, lower GI bleeds, hiatal hernia, osteoporosis, arthritis multiple joints, seasonal allergies. History of Any Multi-Drug Resistant Organisms: None Reported Past Surgical History: Breast Surgery, Cholecystectomy, Hernia Repair, Hysterectomy, Orthopedic Surgery Additional Past Surgical History / Comment(s): Multiple bowel surgeries including total colectomy/ileostomy, ileostomy moved/repaired, R tube and R ovary removed due toectopic , total hysterectomy, leep procedure, laparoscopy for endometriosis, L breast lumpectomy-benign, r breast core bx- benign, EGD/colonoscopies. Past Anesthesia/Blood Transfusion Reactions: No Reported Reaction Past Psychological History: No Psychological Hx Reported Additional Psychological History / Comment(s): Pt currently is staying with her 90 yr old father who has dementia. Her spouse is staying at their home to care for the dogs. 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 She is independent. Smoking Status: Current every day smoker Past Alcohol Use History: None Reported Additional Past Alcohol Use History / Comment(s): smoker since age 17 currently smoking <1/2 pack/wk Past Drug Use History: None Reported - Past Family History Mother Family Medical History: Cancer, COPD Additional Family Medical History / Comment(s): Skin cancer and osteoporosis. Father Family Medical History: Dementia Additional Family Medical History / Comment(s): Father is 90yrs old. Medications and Allergies Home Medications Medication Instructions Recorded Confirmed Type Aclidinium [place] [Tudorza 400 mcg INHALATION RT-BID 06/21/14 02/22/17 History Pressair] Adalimumab [Humira] 40 mg SQ FR 06/21/14 02/22/17 History Albuterol Nebulized [Ventolin 2.5 mg INHALATION RT-QID PRN 06/21/14 02/22/17 History Nebulized] Albuterol Sulfate [Proair Hfa] 2 puff INHALATION RT-Q4H PRN 06/21/14 02/22/17 History Acetaminophen-Codeine 300-30mg 1 tab PO TID 08/18/14 02/22/17 History [Tylenol w/codeine #3] Calcium Carb-Vit D 500Mg-200Un 1 tab PO BID 04/27/16 02/22/17 History [Oscal 500+D] Fluticasone/Vilanterol [Breo 1 puff INHALATION RT-DAILY 04/27/16 02/22/17 History Ellipta 100-25 Mcg Iinhaler] Multivitamins, Thera [Multivitamin] 1 tab PO DAILY 04/27/16 02/22/17 History Opium Tincture 2 ml PO QID 04/27/16 02/22/17 History Mercaptopurine [Purinethol] 50 mg PO BID 02/22/17 02/22/17 History Allergies Allergy/AdvReac Type Severity Reaction Status Date / Time aspirin Allergy Unknown Verified 02/22/17 12:09 Beta-Blockers Allergy Unknown Verified 02/22/17 12:09 (Beta-Adrenergic Bloc Iodine and Iodide Containing Allergy Unknown Verified 02/22/17 12:09 Produc Sulfa (Sulfonamide Allergy Unknown Verified 02/22/17 12:09 Antibiotics) timolol [Timolol] Allergy Unknown Verified 02/22/17 12:09 Surgical - Exam Vital Signs Temp Pulse Resp BP Pulse Ox 97.7 F 80 20 107/68 94 L 02/22/17 11:08 02/22/17 11:08 02/22/17 11:08 02/22/17 11:08 02/22/17 11:08 GENERAL: Well developed and in mild distress. HEENT: No sclera icterus. Extraocular movements grossly intact. Moist buccal mucosa. Head is atraumatic, normocephalic. Hears conversational speech. No nasal drainage. Nasogastric tube clogged with thick brown succunt. NECK: Supple without lymphadenopathy. No JV distention. CHEST: Non-labored respirations and equal bilateral excursions. CARDIOVASCULAR: Regular rate and rhythm. Palpable 2+ radial pulses. ABDOMEN: Soft, distended. Tender along the lower abdomen. Ileostomy with gas in bag. No guarding. No rigidity. Reports tenderness with disturbance of her bed/ MUSCULOSKELETAL: No clubbing, cyanosis or edema. NEUROLOGIC: No focal or lateralizing signs. Cranial nerves II-12 grossly intact. PSYCH: Appropriate affect. Alert and oriented to person, place and time. Results - Labs 02/27/17 10:13 02/27/17 10:13 Abnormal Lab Results - Last 24 Hours (Table) 02/26/17 02/26/17 02/27/17 Range/Units 16:44 20:57 07:18 WBC (3.8-10.6) k/uL MCV (80.0-100.0) fL Neutrophils # (1.3-7.7) k/uL Lymphocytes # (1.0-4.8) k/uL Potassium (3.5-5.1) mmol/L Glucose (74-99) mg/dL POC Glucose (mg/dL) 149 H 126 H 133 H (75-99) mg/dL Calcium (8.4-10.2) mg/dL 02/27/17 02/27/17 02/27/17 Range/Units 10:13 10:13 12:19 WBC 14.4 H (3.8-10.6) k/uL MCV 102.4 H (80.0-100.0) fL Neutrophils # 13.2 H (1.3-7.7) k/uL Lymphocytes # 0.6 L (1.0-4.8) k/uL Potassium 3.3 L (3.5-5.1) mmol/L Glucose 140 H (74-99) mg/dL POC Glucose (mg/dL) 132 H (75-99) mg/dL Calcium 8.2 L (8.4-10.2) mg/dL Diabetes panel 02/27/17 Range/Units 10:13 Sodium 139 (137-145) mmol/L Potassium 3.3 L (3.5-5.1) mmol/L Chloride 99 (98-107) mmol/L Carbon Dioxide 30 (22-30) mmol/L BUN 12 (7-17) mg/dL Creatinine 0.56 (0.52-1.04) mg/dL Glucose 140 H (74-99) mg/dL Calcium 8.2 L (8.4-10.2) mg/dL Calcium panel 02/27/17 Range/Units 10:13 Calcium 8.2 L (8.4-10.2) mg/dL Pituitary panel 02/27/17 Range/Units 10:13 Sodium 139 (137-145) mmol/L Potassium 3.3 L (3.5-5.1) mmol/L Chloride 99 (98-107) mmol/L Carbon Dioxide 30 (22-30) mmol/L BUN 12 (7-17) mg/dL Creatinine 0.56 (0.52-1.04) mg/dL Glucose 140 H (74-99) mg/dL Calcium 8.2 L (8.4-10.2) mg/dL Adrenal panel 02/27/17 Range/Units 10:13 Sodium 139 (137-145) mmol/L Potassium 3.3 L (3.5-5.1) mmol/L Chloride 99 (98-107) mmol/L Carbon Dioxide 30 (22-30) mmol/L BUN 12 (7-17) mg/dL Creatinine 0.56 (0.52-1.04) mg/dL Glucose 140 H (74-99) mg/dL Calcium 8.2 L (8.4-10.2) mg/dL - Imaging Abdominal x-ray: report reviewed, image reviewed (No free air identified. Small bowel is dilated.) Assessment and Plan (1) Small bowel obstruction, partial Status: Acute (2) Leukocytosis Status: Acute (3) Lower abdominal pain Status: Acute (4) Ileostomy status Status: Acute (5) S/P total colectomy Status: Chronic (6) Asthma exacerbation in COPD Status: Acute (7) Crohn's ileitis Status: Acute (8) Exacerbation of Crohn's disease Status: Acute Plan: 1. Her NG tube was readjusted by me for function. Additionally, x-rays were obtained for NG tube positioning. 2. On exam, she describes mild peritoneal irritation for which surgical attention was described however she has elected for no surgery at this time. 3. Will need CT of the abdomen and pelvis for additional imaging. 4. Pain medications have been adjusted including start of scopolamine patch and antiemetics. Thank you for this kind consultation.
--- NOTE | 2017-02-27 20:00 | CT ---
EXAMINATION TYPE: CT ABDOMEN PELVIS WO CON DATE OF EXAM: 02/27/2017 7:05 PM COMPARISON: 07/15/2015 HISTORY: R/O small bowel obstruction. Hx of chrons disease. CT DLP: 668 mGycm Automated exposure control for dose reduction was used. TECHNIQUE: Helical acquisition of images was performed from the lung bases through the pelvis. FINDINGS: LUNG BASES: Partial airlessness of the left lower lobe noted, likely atelectasis. Scant pleural effus ions noted bilaterally LIVER/GB: No significant abnormality is appreciated. PANCREAS: No significant abnormality is seen. SPLEEN: No significant abnormality is seen. ADRENALS: No significant abnormality is seen. KIDNEYS: There is no urinary tract obstruction. A 5 mm nonobstructing right mid-renal calcification i s noted centrally. PERITONEAL CAVITY: No free air is visualized. Scant peritoneal fluid is noted in the left upper quad rant, likely reactive. RETROPERITONEAL ADENOPATHY: None visualized REPRODUCTIVE ORGANS: No significant abnormality is seen URINARY BLADDER: No significant abnormality is seen. PELVIC ADENOPATHY: None visualized. OSSEOUS STRUCTURES: No significant abnormality is seen. BOWEL: NG tube is present within a collapsed stomach. There is no bowel obstruction. No pneumatosis. No pneumoperitoneum. OTHER: The right thigh soft tissues are asymmetric, with mild edematous changes throughout the fascia l planes of the upper right thigh. This is nonspecific, but raises at least the possibility of venous stasis and, therefore, clinical assessment is requested. Limitation: Without intravenous contrast there is limited sensitivity for focal visceral lesions and for intravascular pathology. IMPRESSION: 1. OVERALL IMPRESSION IS NO ACUTE ABDOMINAL PELVIC PROCESS, ABDOMINOPELVIC CT WITHOUT CONTRAST. 2. However, nonspecific uppermost right thigh mild edematous changes are incidentally noted within t he fascial planes; if clinical concern for deep venous thrombosis is present clinically then venous D oppler ultrasound can be obtained.
[2017-02-27] MEDS: MELATONIN 3 MG TABLET PO SCH (20:47)
[2017-02-27] MEDS: PANTOPRAZOLE 40 MG/10 ML VIAL IVP SCH (20:55)
[2017-02-27 21:53] LABS: Glucose,Whole Blood 86 mg/dL (75-99)
[2017-02-28] MEDS: METOCLOPRAMIDE 5 MG/ML 2 ML VIAL IVP SCH ×3 (05:25→19:08)
[2017-02-28] MEDS: KETOROLAC 30 MG/ML 1 ML VIAL IVP SCH ×3 (05:25→19:09)
[2017-02-28] MEDS: Acetaminophen-Codeine 300-30mg TAB PO SCH ×3 (05:25→17:19)
[2017-02-28] MEDS: SODIUM CHLORIDE 0.9% 1,000 ML IV SCH ×3 (05:27→21:55)
[2017-02-28] MEDS: LORazepam 2 MG/ML SYRINGE IV PRN ×3 (05:31→19:05)
[2017-02-28 07:39] LABS: Glucose,Whole Blood 72 mg/dL (75-99)
[2017-02-28] MEDS: INSULIN LISPRO (humaLOG) 300 UNIT/3 ML VIAL SQ SCH ×4 (08:06→22:05)
[2017-02-28] MEDS: OPIUM PO SCH ×4 (08:22→22:05)
[2017-02-28] MEDS: MERCAPTOPURINE 50 MG TAB PO SCH ×2 (08:22→21:56)
[2017-02-28] MEDS: predniSONE 20 MG TAB PO SCH (08:22)
[2017-02-28] MEDS: CHLORPHEN-HYDROcod 8-10mg/5ml 5 ML ORAL.SYRG PO SCH ×2 (08:22→21:55)
[2017-02-28] MEDS: IPRATROPIUM-ALBUTEROL 3 ML NEB INHALATION SCH ×4 (08:59→20:54)
[2017-02-28] MEDS: SYMBICORT 160-4.5 MCG INHALER INHALATION SCH ×2 (08:59→20:54)
[2017-02-28 09:27] LABS: CH 33.4; HCT 33.5 % (34.0-46.0); HDW 2.85; MCH 32.4 pg (25.0-35.0); MCHC 32.8 g/dL (31.0-37.0); MCV 98.7 fL (80.0-100.0); Mean Platelet Volume 6.4; RDW 13.8 % (11.5-15.5); WBC 10.1 k/uL (3.8-10.6)
--- NOTE | 2017-02-28 09:42 | CDI ---
In responding to this query, please exercise your independent professional judgment. The [facility] Coding Staff and Clinical Documentation Specialists appreciate your assistance in clarifying documentation, maintaining compliance with coding guidelines, accurately documenting patients condition and capturing severity of illness. The fact that a question is asked does not imply that any particular answer is desired or expected. Communication forms are a method of clarifying documentation and are not made part of the Legal Health Record. Thank you in advance for your clarification. Last Revision, December 2015 Esme Pearson [address] [facility] [place] [address] Documentation Clarification Form Date: 02/28/2017 9:10:00 AM From: Mirta Sánchez Admit Date: 02/22/2017 12:46:00 PM Patient Name: Caitie Garg Visit Number: [id number] Discharge Date: Dr. Magali Cintron Asthma is documented in the ED evaluation and progress notes on 02/27/17 Patient history/risk factors: COPD, Crohn's disease, Fibromyalgia, Current everyday smoker Clinical Indicators: Complains of shortness of breath, updrafts aren't helping. Lungs: clear to auscultation, respirations are non-labored, breath sounds are equal. Chest x-ray: minimal right pleural effusion, chronic changes due to COPD. Vital Signs: 107/68 80 20 97.7 94 % RA Treatment: Albuterol Duoneb's Symbicort Inhaler IV @ 125mls/hr Solu-Medrol (taper) change to Prednisone PO Monitor O2 Sat's In your professional opinion, can you please further specify the following, if known? Acute Asthma Exacerbation With: Acute lower respiratory infection COPD (specify with or without exacerbation) Chronic obstructive bronchitis Other, please specify Unable to determine Severity Mild intermittent Mild persistent Moderate persistent Severe persistent Other, please specify Unable to determine Form or Type Cough variant Childhood Exercise induced bronchospasm Extrinsic allergic Idiosyncratic Intrinsic nonallergic Late-onset Mixed Other, please specify Unable to determine Please document in your progress notes in order to capture severity of illness and risk of mortality. Include clinical findings that support your diagnosis. FYI: Press F11 to launch patient chart. Place X here if this finding has no clinical significance, is not applicable or if you are not able to provide any additional documentation. MTDD
[2017-02-28 09:47] LABS: Anion Gap 9 mmol/L; Blood Urea Nitrogen 10 mg/dL (7-17); Calcium 7.4 mg/dL (8.4-10.2); Carbon Dioxide 31 mmol/L (22-30); Chloride 97 mmol/L (98-107); Glucose 73 mg/dL (74-99); Non-African American GFR(MDRD) >60 (>60 ml/min/1.73 sqM); Sodium 137 mmol/L (137-145)
[2017-02-28] MEDS: HYDROmorphone 1 MG/ML 1 ML SYRINGE IVP PRN ×3 (09:49→21:58)
[2017-02-28] MEDS: ONDANSETRON 4 MG/2 ML VIAL IVP PRN ×2 (09:49→16:53)
[2017-02-28] MEDS: PANTOPRAZOLE 40 MG/10 ML VIAL IVP SCH ×2 (09:49→21:56)
[2017-02-28] MEDS: NICOTINE 21MG/24HR PATCH TRANSDERM SCH (09:49)
[2017-02-28] MEDS ORDERED: Potassium Replacement Protocol 1 EACH MISC MISCELLANE PRN ×2 (09:54→16:30)
[2017-02-28] MEDS: POTASSIUM CHLORIDE 10 MEQ, LIDOCAINE 2% INJ 10 MG in SODIUM CHLORIDE 0.9% 100 ML IV SCH ×5 (10:24→20:50)
--- NOTE | 2017-02-28 10:30 | P.PN ---
Subjective Principal diagnosis: abdominal pain increased ostomy output 56-year-old female admitted with COPD exacerbation with history of Crohn's. She was expressing abdominal discomfort with increased ileostomy output which she thought was related to her COPD exacerbation process and medications. Over the weekend she developed increased abdominal distention nausea vomiting consistent with partial small bowel obstruction possible ileus. Nasogastric decompression showed improvement on computed tomography scan last night. Her ostomy is producing a small amount of flatus and stool. NG output is decreasing. She reports improvement in abdominal pain. Objective - Vital Signs Vital signs: Vital Signs Temp 97.0 F L 02/28/17 07:00 Pulse 88 02/28/17 07:00 Resp 20 02/28/17 07:00 BP 117/71 02/28/17 07:00 Pulse Ox 95 02/28/17 07:00 Intake & Output 02/27/17 02/28/17 02/28/17 18:59 06:59 18:59 Output Total 800 750 Balance -800 -750 Weight 49.895 kg Output: Gastric Drainage 800 750 Other: Voiding Method Toilet Toilet # Voids 2 1 # Bowel Movements 1 - Exam General appearance: The patient is alert, oriented, in no acute distress. HET: Head is normocephalic and atraumatic. Pupils are equal and reactive. Oropharynx is clear without lesions. NG tube with bilious fluid. Neck: Supple without lymphadenopathy. Trachea midline. Heart: S1 S2. Regular rate and rhythm. Lungs: No crackles or wheezes are heard. Decreased bases bilaterally. Abdomen: Soft, mild midabdominal tenderness, nondistended with bowel sounds. Ostomy with minimal stool minimal flatus. No peritoneal signs. No palpable organomegaly or masses. Extremities: Normal skin color and turgor. No cyanosis, rash, ulceration, clubbing, or edema. Radial and pedal pulses are 2/4 bilaterally. Neurological: No focal deficits. Strength and sensation are grossly intact. - Labs CBC & Chem 7: 02/28/17 09:04 02/28/17 09:04 Labs: Abnormal Lab Results - Last 24 Hours (Table) 02/27/17 02/27/17 02/27/17 Range/Units 10:13 10:13 12:19 WBC 14.4 H (3.8-10.6) k/uL RBC (3.80-5.40) m/uL Hgb (11.4-16.0) gm/dL Hct (34.0-46.0) % MCV 102.4 H (80.0-100.0) fL Neutrophils # 13.2 H (1.3-7.7) k/uL Lymphocytes # 0.6 L (1.0-4.8) k/uL Potassium 3.3 L (3.5-5.1) mmol/L Chloride (98-107) mmol/L Carbon Dioxide (22-30) mmol/L Glucose 140 H (74-99) mg/dL POC Glucose (mg/dL) 132 H (75-99) mg/dL Calcium 8.2 L (8.4-10.2) mg/dL 02/27/17 02/28/17 02/28/17 Range/Units 17:15 07:36 09:04 WBC (3.8-10.6) k/uL RBC 3.40 L (3.80-5.40) m/uL Hgb 11.0 L (11.4-16.0) gm/dL Hct 33.5 L (34.0-46.0) % MCV (80.0-100.0) fL Neutrophils # (1.3-7.7) k/uL Lymphocytes # (1.0-4.8) k/uL Potassium (3.5-5.1) mmol/L Chloride (98-107) mmol/L Carbon Dioxide (22-30) mmol/L Glucose (74-99) mg/dL POC Glucose (mg/dL) 105 H 72 L (75-99) mg/dL Calcium (8.4-10.2) mg/dL 02/28/17 Range/Units 09:04 WBC (3.8-10.6) k/uL RBC (3.80-5.40) m/uL Hgb (11.4-16.0) gm/dL Hct (34.0-46.0) % MCV (80.0-100.0) fL Neutrophils # (1.3-7.7) k/uL Lymphocytes # (1.0-4.8) k/uL Potassium 3.0 L* (3.5-5.1) mmol/L Chloride 97 L (98-107) mmol/L Carbon Dioxide 31 H (22-30) mmol/L Glucose 73 L (74-99) mg/dL POC Glucose (mg/dL) (75-99) mg/dL Calcium 7.4 L (8.4-10.2) mg/dL Assessment and Plan (1) Crohn's ileitis Narrative/Plan: Possible exacerbation possible superimposed gastroenteritis Status: Acute (2) Asthma exacerbation in COPD Status: Acute (3) Small bowel obstruction, partial Status: Acute Plan: We'll defer to general surgery for further management of her NG tube and diet. Continue supportive measures. Receiving oral prednisone. Assessment and plan a care discussed with Dr. Verma.
[2017-02-28] MEDS ORDERED: Magnesium Replacement Protocol 1 EACH MISC MISCELLANE PRN (11:37)
[2017-02-28 12:09] LABS: Glucose,Whole Blood 68 mg/dL (75-99)
[2017-02-28 12:21] LABS: Glucose,Whole Blood 71 mg/dL (75-99)
[2017-02-28] MEDS: MAGNESIUM SULFATE-D5W PMX 1 GM in DEXTROSE/WATER 1 100ML.BAG IVPB SCH ×2 (13:25→14:59)
--- NOTE | 2017-02-28 14:45 | P.PN ---
Subjective Principal diagnosis: 56-year-old female patient with known history of COPD with a baseline FEV1 of 36 % of predicted coming in for increased shortness of breath and COPD exacerbation. Patient is well-known to me. She has been maintained on a combination of Breo Ellipta and Tudorza on an outpatient basis. She had been doing well. She had been on no oxygen yet. She also has inflammatory bowel disease and she is on Humira on outpatient basis. The patient presented to the hospital because of worsening shortness of breath. She has a congested cough. She is unable to bring up much of sputum. No pleurisy. No hemoptysis. Chest x -ray is clear. Her condition was progressively getting worse over the past few days. She has been using solution more frequently and she was coughing vigorously. For that reason she was admitted for an acute COPD exacerbation. At the same time, the patient was having some intermittent cramping of her abdomen and she has noted to eat less and she had diminished oral intake. Denied having any diarrhea. No hematemesis. No melanotic stool. She has been afebrile for now. On 02/24/2017 the patient is less short of breath compared to yesterday. Breathing easier. Less spastic. Less wheezing. Responded to bronchitis and systemic steroids. No new complaints otherwise for now. On , the patient is quite anxious and short of breath. She is reporting that the drop in the steroid dose made her more short of breath. At the same time she has noted some increased side effects of the combination of Perforomist and Pulmicort neb as treatments. Note that the patient is on Breo at home as maintenance for COPD. Her baseline FEV1 is noted of 36% of predicted. At the same time the patient is having increased output through her ileostomy bag. She has also some limited abdominal cramping. No fever. No chills. No other complaints otherwise. On 02/27/2017, patient is feeling a bit better, breathing easier, however she seems to be developing some abdominal distention and abdominal cramps, with decreased output in the ileostomy bag. Patient was seen by general surgery on consultation, nasogastric tube was to be placed, and CT of the abdomen and pelvis was ordered. Abdominal films are suggestive of small bowel obstruction CBC showed leukocytosis with WBC count of 14.4. Basic metabolic profile showed hypokalemia with potassium of 3.3. The patient is seen again today 02/28/2017 in follow-up on the regular medical floor. She is awake and alert. She still has some complaints of abdominal discomfort. She was found to have a partial small bowel obstruction. Her ostomy is presently functioning with a small amount of stool and gas. Nasogastric tube remains in place. From the pulmonary standpoint she is breathing better today as compared to yesterday. Continues to maintain good O2 saturations in the 90s on 2 L/m per nasal cannula. She is currently afebrile. No leukocytosis. Objective - Vital Signs Vital signs: Vital Signs Temp 97.0 F L 02/28/17 07:00 Pulse 88 02/28/17 07:00 Resp 20 02/28/17 07:00 BP 117/71 02/28/17 07:00 Pulse Ox 95 02/28/17 07:00 Intake & Output 02/27/17 02/28/17 02/28/17 18:59 06:59 18:59 Output Total 800 750 Balance -800 -750 Weight 49.895 kg Output: Gastric Drainage 800 750 Other: Voiding Method Toilet Toilet # Voids 2 1 3 # Bowel Movements 1 - Exam Head exam was generally normal. There was no scleral icterus or corneal arcus. Mucous membranes were moist. Nasogastric tube remains secured in place. Neck was supple and without jugular venous distension, thyromegaly, or carotid bruits. Carotids were easily palpable bilaterally. There was no adenopathy. Lung sounds are diminished and there is prolongation of the expiratory phase of breathing and diffuse expiratory wheezes throughout the lung hunter bilaterally.Cardiac exam revealed the PMI to be normally situated and sized. The rhythm was regular and no extrasystoles were noted during several minutes of auscultation. The first and second heart sounds were normal and physiologic splitting of the second heart sound was noted. There were no murmurs, rubs, clicks, or gallops. Abdomen is soft. There is no direct tenderness or rebound tensile guarding. Ileostomy site is intact dry and clean.Examination of the extremities revealed easily palpable radial, femoral and pedal pulses. There was no cyanosis, clubbing or edema. - Labs CBC & Chem 7: 02/28/17 09:04 02/28/17 09:04 Labs: Abnormal Lab Results - Last 24 Hours (Table) 02/27/17 02/28/17 02/28/17 Range/Units 17:15 07:36 09:04 RBC 3.40 L (3.80-5.40) m/uL Hgb 11.0 L (11.4-16.0) gm/dL Hct 33.5 L (34.0-46.0) % Potassium (3.5-5.1) mmol/L Chloride (98-107) mmol/L Carbon Dioxide (22-30) mmol/L Glucose (74-99) mg/dL POC Glucose (mg/dL) 105 H 72 L (75-99) mg/dL Calcium (8.4-10.2) mg/dL Magnesium (1.6-2.3) mg/dL 02/28/17 02/28/17 02/28/17 Range/Units 09:04 09:04 11:57 RBC (3.80-5.40) m/uL Hgb (11.4-16.0) gm/dL Hct (34.0-46.0) % Potassium 3.0 L* (3.5-5.1) mmol/L Chloride 97 L (98-107) mmol/L Carbon Dioxide 31 H (22-30) mmol/L Glucose 73 L (74-99) mg/dL POC Glucose (mg/dL) 68 L (75-99) mg/dL Calcium 7.4 L (8.4-10.2) mg/dL Magnesium 1.5 L (1.6-2.3) mg/dL 02/28/17 Range/Units 12:16 RBC (3.80-5.40) m/uL Hgb (11.4-16.0) gm/dL Hct (34.0-46.0) % Potassium (3.5-5.1) mmol/L Chloride (98-107) mmol/L Carbon Dioxide (22-30) mmol/L Glucose (74-99) mg/dL POC Glucose (mg/dL) 71 L (75-99) mg/dL Calcium (8.4-10.2) mg/dL Magnesium (1.6-2.3) mg/dL Assessment and Plan Plan: Impression: 1 acute COPD exacerbation secondary to an acute bronchitis. The patient has no evidence of pneumonia the chest x-ray. She is an increased risk of respiratory infections in general based on the fact that the patient has been maintained on Humira on outpatient basis. 2 shortness of breath secondary to above 3 inflammatory bowel disease/Crohn's disease maintained on Humira 4 chronic immunosuppression secondary to intake of Humira 5 fibromyalgia 6 diverticular ileostomy, a complication of inflammatory bowel disease 7 degenerative arthritis 8 osteoporosis 9 hiatal hernia 10 seasonal ALLERGIC rhinitis 11 smoker #12 small bowel obstruction, nasogastric tube remains in place. Plan: The patient was seen and evaluated by Dr. Cintron. We'll continue with her current pulmonary medications. GI and surgical services are on the case as well. We will continue to follow.
--- NOTE | 2017-02-28 15:00 | US ---
EXAMINATION TYPE: US venous doppler duplex LE BI DATE OF EXAM: 02/28/2017 2:41 PM COMPARISON: CT abdomen pelvis from one day earlier. CLINICAL HISTORY: r o DVT. CT recommended venous to r/o dvt, patient states no pain, no swelling. Abn ormal recent CT. SIDE PERFORMED: Bilateral TECHNIQUE: The lower extremity deep venous system is examined utilizing real time linear array sonog saroj with graded compression, doppler sonography and color-flow sonography. VESSELS IMAGED: External Iliac Vein (EIV) Common Femoral Vein Deep Femoral Vein Greater Saphenous Vein * Femoral Vein Popliteal Vein Small Saphenous Vein * Proximal Calf Veins (* superficial vessels) Right Leg: Appears negative for DVT Left Leg: Appears negative for DVT Grayscale, color doppler, spectral doppler imaging performed of the deep veins of the lower extremiti es. There is normal flow, compressibility, vascular waveforms bilaterally. IMPRESSION: No ultrasound evidence for acute DVT in either lower extremity.
[2017-02-28 16:27] LABS: Potassium 2.8 mmol/L (3.5-5.1)
--- NOTE | 2017-02-28 16:56 | P.PN ---
Subjective 56-year-old female resting in bed. No new events. Nasogastric tube in place. Per CAT scan imaging done the day before does show an improvement. Ostomy a small amount of stool noted. Reports an improvement in the abdominal pain Objective - Vital Signs Vital signs: Vital Signs Temp 98.5 F 02/28/17 15:00 Pulse 108 H 02/28/17 15:00 Resp 17 02/28/17 15:00 BP 109/73 02/28/17 15:00 Pulse Ox 94 L 02/28/17 15:00 Intake & Output 02/27/17 02/28/17 02/28/17 18:59 06:59 18:59 Output Total 800 750 300 Balance -800 -750 -300 Weight 49.895 kg Output: Gastric Drainage 800 750 300 Other: Voiding Method Toilet Toilet # Voids 2 1 3 # Bowel Movements 1 - Exam Physical exam 56-year-old female resting in bed appears in no acute distress Lungs diminished at the bases otherwise adequate air movement Heart S1-S2 audible regular Abdomen soft mild abdominal tenderness not distended bowel tones present ostomy small amount of stool noted nasal gastric tube in place indwelling Ribera catheter in place Extremities no edema to - Labs CBC & Chem 7: 02/28/17 09:04 02/28/17 16:00 Labs: Abnormal Lab Results - Last 24 Hours (Table) 02/27/17 02/28/17 02/28/17 Range/Units 17:15 07:36 09:04 RBC 3.40 L (3.80-5.40) m/uL Hgb 11.0 L (11.4-16.0) gm/dL Hct 33.5 L (34.0-46.0) % Potassium (3.5-5.1) mmol/L Chloride (98-107) mmol/L Carbon Dioxide (22-30) mmol/L Glucose (74-99) mg/dL POC Glucose (mg/dL) 105 H 72 L (75-99) mg/dL Calcium (8.4-10.2) mg/dL Magnesium (1.6-2.3) mg/dL 02/28/17 02/28/17 02/28/17 Range/Units 09:04 09:04 11:57 RBC (3.80-5.40) m/uL Hgb (11.4-16.0) gm/dL Hct (34.0-46.0) % Potassium 3.0 L* (3.5-5.1) mmol/L Chloride 97 L (98-107) mmol/L Carbon Dioxide 31 H (22-30) mmol/L Glucose 73 L (74-99) mg/dL POC Glucose (mg/dL) 68 L (75-99) mg/dL Calcium 7.4 L (8.4-10.2) mg/dL Magnesium 1.5 L (1.6-2.3) mg/dL 02/28/17 02/28/17 Range/Units 12:16 16:00 RBC (3.80-5.40) m/uL Hgb (11.4-16.0) gm/dL Hct (34.0-46.0) % Potassium 2.8 L* (3.5-5.1) mmol/L Chloride (98-107) mmol/L Carbon Dioxide (22-30) mmol/L Glucose (74-99) mg/dL POC Glucose (mg/dL) 71 L (75-99) mg/dL Calcium (8.4-10.2) mg/dL Magnesium 3.0 H (1.6-2.3) mg/dL Assessment and Plan Plan: Impression Abdominal pain present on admission likely due to Crohn's ileitis Acute exacerbation COPD with asthma Present on admission Abdominal pain partial small bowel obstruction Exacerbation of Crohn's disease Status post total colectomy Ileostomy status acute Plan Continue with the nasal gastric tube Remove Ribera catheter Pain control Increase activity DVT and GI prophylaxis Further recommendations pending The above dictated assessment and findings were discussed with dr cooper. Impression and the plan of care have been dictated as directed. Kayli Linda nurse practitioner acting as a scribe for dr cooper
[2017-02-28 17:38] LABS: Glucose,Whole Blood 88 mg/dL (75-99)
--- NOTE | 2017-02-28 19:23 | P.PN ---
Subjective Date of service 02/28/2017. Progress note being dictated for Dr. Swan. Interval history: This a 56-year-old female admitted with acute hypercapnic respiratory failure secondary to COPD exacerbation, partial small bowel obstruction in a patient with history of Crohn's disease, with chronic immunosuppression and multiple other medical issues. NG tube clamped with diet advanced to clears as per surgery. Denies abdominal pain, complains of cramping sensation and nausea. Ostomy with small amount of stool and flatus. Potassium 3.0, magnesium 1.5 with replacement protocols ordered. CT reporting improvement, with questionable DVT of right thigh. and Doppler ultrasound ordered of right leg. Afebrile. Objective - Vital Signs Vital signs: Vital Signs Temp 98.5 F 02/28/17 15:00 Pulse 108 H 02/28/17 15:00 Resp 17 02/28/17 15:00 BP 109/73 02/28/17 15:00 Pulse Ox 94 L 02/28/17 15:00 Intake & Output 02/27/17 02/28/17 02/28/17 18:59 06:59 18:59 Output Total 800 750 300 Balance -800 -750 -300 Weight 49.895 kg Output: Gastric Drainage 800 750 300 Other: Voiding Method Toilet Toilet # Voids 2 1 3 # Bowel Movements 1 - Exam PHYSICAL EXAM: VITAL SIGNS: [As above] GENERAL: [Sitting up in bed, curled up in blankets, no acute distress] HEENT: [Pupils equal conjunctiva normal. NG tube present, clamped.] NECK: [Supple, no JVD] RESPIRATORY EFFORT:[Normal] LUNGS: [Diminished with sporadic fine expiratory wheezes throughout, no rhonchi , no crackles] CARDIOVASCULAR[regular S1 and S2, no murmurs rubs or gallops, no edema] GI: [Abdomen soft, nondistended, minimal diffuse abdominal tenderness, ostomy with small amount of stool and flatus ,positive bowel sounds.] PSYCH: [Alert and oriented -3, mood and affect normal.] NEURO: [As neurological examination did not reveal any focal deficits, moves all 4 extremities, strength and sensation grossly intact] - Labs CBC & Chem 7: 02/28/17 09:04 02/28/17 16:00 Labs: Abnormal Lab Results - Last 24 Hours (Table) 02/28/17 02/28/17 02/28/17 Range/Units 07:36 09:04 09:04 RBC 3.40 L (3.80-5.40) m/uL Hgb 11.0 L (11.4-16.0) gm/dL Hct 33.5 L (34.0-46.0) % Potassium 3.0 L* (3.5-5.1) mmol/L Chloride 97 L (98-107) mmol/L Carbon Dioxide 31 H (22-30) mmol/L Glucose 73 L (74-99) mg/dL POC Glucose (mg/dL) 72 L (75-99) mg/dL Calcium 7.4 L (8.4-10.2) mg/dL Magnesium (1.6-2.3) mg/dL 02/28/17 02/28/17 02/28/17 Range/Units 09:04 11:57 12:16 RBC (3.80-5.40) m/uL Hgb (11.4-16.0) gm/dL Hct (34.0-46.0) % Potassium (3.5-5.1) mmol/L Chloride (98-107) mmol/L Carbon Dioxide (22-30) mmol/L Glucose (74-99) mg/dL POC Glucose (mg/dL) 68 L 71 L (75-99) mg/dL Calcium (8.4-10.2) mg/dL Magnesium 1.5 L (1.6-2.3) mg/dL 02/28/17 Range/Units 16:00 RBC (3.80-5.40) m/uL Hgb (11.4-16.0) gm/dL Hct (34.0-46.0) % Potassium 2.8 L* (3.5-5.1) mmol/L Chloride (98-107) mmol/L Carbon Dioxide (22-30) mmol/L Glucose (74-99) mg/dL POC Glucose (mg/dL) (75-99) mg/dL Calcium (8.4-10.2) mg/dL Magnesium 3.0 H (1.6-2.3) mg/dL Assessment and Plan Plan: 1. Acute hypercapnic, respiratory failure secondary to COPD exacerbation. 2. [Partial small bowel obstruction in a patient with history of Crohn's disease without significant exacerbation] and Possible Crohn's ileitis. 3. [Chronic immunosuppression on Humira]. 4. [Fibromyalgia]. 5. [Hiatal hernia]. 6. [Degenerative arthritis]. 7. [Leukocytosis, reactive]. 8. Ongoing nicotine abuse 9. Hypokalemia 10. Hypomagnesemia 11. Status post total colectomy, ileostomy Plan: Continue on current medication regime, nebulized bronchodilators, systemic steroids, GI and DVT prophylaxis, monitoring and symptomatic treatment. Diet advancement as per surgery. Electrolyte replacement protocols in place. Close monitoring of electrolytes with repeat labs ordered for a.m. CT reporting questionable DVT of right thigh. Doppler ultrasound ordered of right leg. Increase ambulation as tolerated. The impression and plan of care has been dictated as directed. : I performed a H&P examination of this patient and discussed the same with the dictator. I agree with the dictator's note. Any additional findings/opinions/ etc. will be noted.
--- NOTE | 2017-02-28 21:05 | P.PN ---
Progress Note - Text Patient still reports nausea despite having liquid diet. Will place NGT to suction. Recommend correction of electrolytes. Do not advance diet. Will re-evaluate for removal of NGT tomorrow.
[2017-02-28 21:16] LABS: Glucose,Whole Blood 88 mg/dL (75-99)
[2017-02-28] MEDS: 0.9% NACL WITH KCL 20 MEQ/L 1,000 ML IV SCH (21:55)
[2017-02-28] MEDS: MELATONIN 3 MG TABLET PO SCH (21:56)
[2017-03-01] MEDS: Acetaminophen-Codeine 300-30mg TAB PO SCH ×5 (00:08→23:08)
[2017-03-01] MEDS: KETOROLAC 30 MG/ML 1 ML VIAL IVP SCH ×5 (00:11→23:08)
[2017-03-01] MEDS: METOCLOPRAMIDE 5 MG/ML 2 ML VIAL IVP SCH ×5 (00:11→23:08)
[2017-03-01] MEDS: LORazepam 2 MG/ML SYRINGE IV PRN (05:26)
[2017-03-01 07:31] LABS: Glucose,Whole Blood 70 mg/dL (75-99)
[2017-03-01] MEDS: INSULIN LISPRO (humaLOG) 300 UNIT/3 ML VIAL SQ SCH ×4 (07:37→21:34)
[2017-03-01] MEDS: 0.9% NACL WITH KCL 20 MEQ/L 1,000 ML IV SCH ×2 (08:05→18:00)
[2017-03-01] MEDS: SYMBICORT 160-4.5 MCG INHALER INHALATION SCH ×2 (08:31→21:32)
[2017-03-01] MEDS: IPRATROPIUM-ALBUTEROL 3 ML NEB INHALATION SCH ×4 (08:32→21:21)
[2017-03-01] MEDS: OPIUM PO SCH ×4 (08:55→22:00)
[2017-03-01] MEDS: CHLORPHEN-HYDROcod 8-10mg/5ml 5 ML ORAL.SYRG PO SCH ×2 (08:57→21:39)
[2017-03-01] MEDS: PANTOPRAZOLE 40 MG/10 ML VIAL IVP SCH ×2 (08:57→21:40)
[2017-03-01] MEDS: NICOTINE 21MG/24HR PATCH TRANSDERM SCH (08:57)
[2017-03-01] MEDS: predniSONE 20 MG TAB PO SCH (08:58)
[2017-03-01] MEDS: MERCAPTOPURINE 50 MG TAB PO SCH ×2 (08:58→21:40)
[2017-03-01] MEDS: ONDANSETRON 4 MG/2 ML VIAL IVP PRN (09:03)
[2017-03-01 09:47] LABS: Anion Gap 9 mmol/L; Blood Urea Nitrogen 12 mg/dL (7-17); Calcium 6.9 mg/dL (8.4-10.2); Carbon Dioxide 27 mmol/L (22-30); Chloride 103 mmol/L (98-107); Glucose 93 mg/dL (74-99); Non-African American GFR(MDRD) >60 (>60 ml/min/1.73 sqM); Potassium 3.4 mmol/L (3.5-5.1); Sodium 139 mmol/L (137-145)
[2017-03-01] MEDS ORDERED: POTASSIUM CHLORIDE 20 MEQ, LIDOCAINE 2% INJ 20 MG in SODIUM CHLORIDE 0.9% 100 ML IVPB ONE (11:30)
[2017-03-01 12:18] LABS: Glucose,Whole Blood 84 mg/dL (75-99)
--- NOTE | 2017-03-01 13:08 | CDI ---
In responding to this query, please exercise your independent professional judgment. The [facility] Coding Staff and Clinical Documentation Specialists appreciate your assistance in clarifying documentation, maintaining compliance with coding guidelines, accurately documenting patients condition and capturing severity of illness. The fact that a question is asked does not imply that any particular answer is desired or expected. Communication forms are a method of clarifying documentation and are not made part of the Legal Health Record. Thank you in advance for your clarification. Last Revision, December 2015 Esme Pearson [address] [place] [address] Documentation Clarification Form Date: 02/28/2017 9:10:00 AM From: Mirta Sánchez Admit Date: 02/22/2017 12:46:00 PM Patient Name: Caitie Garg Visit Number: [id number] Discharge Date: Dr. Magali Cintron/Trinity Kay NP-[place] Asthma is documented in the ED evaluation and progress notes on 02/27/17 Patient history/risk factors: COPD, Crohn's disease, Fibromyalgia, Current everyday smoker Clinical Indicators: Complains of shortness of breath, updrafts aren't helping. Lungs: clear to auscultation, respirations are non-labored, breath sounds are equal. Chest x-ray: minimal right pleural effusion, chronic changes due to COPD. Vital Signs: 107/68 80 20 97.7 94 % RA Treatment: Albuterol Duoneb's Symbicort Inhaler IV @ 125mls/hr Solu-Medrol (taper) change to Prednisone PO Monitor O2 Sat's In your professional opinion, can you please further specify the following, if known? Acute Asthma Exacerbation With Acute lower respiratory infection COPD (specify with or without exacerbation) Chronic obstructive bronchitis Other, please specify Unable to determine Severity Mild intermittent Mild persistent Moderate persistent Severe persistent Other, please specify Unable to determine Form or Type Cough variant Childhood Exercise induced bronchospasm Extrinsic allergic Idiosyncratic Intrinsic nonallergic Late-onset Mixed Other, please specify Unable to determine Please document in your progress notes in order to capture severity of illness and risk of mortality. Include clinical findings that support your diagnosis. FYI: Press F11 to launch patient chart. Place X here if this finding has no clinical significance, is not applicable or if you are not able to provide any additional documentation. MTDD
--- NOTE | 2017-03-01 14:21 | P.PN ---
Subjective 56-year-old female patient with known history of COPD with a baseline FEV1 of 36 % of predicted coming in for increased shortness of breath and COPD exacerbation. Patient is well-known to me. She has been maintained on a combination of Breo Ellipta and Tudorza on an outpatient basis. She had been doing well. She had been on no oxygen yet. She also has inflammatory bowel disease and she is on Humira on outpatient basis. The patient presented to the hospital because of worsening shortness of breath. She has a congested cough. She is unable to bring up much of sputum. No pleurisy. No hemoptysis. Chest x -ray is clear. Her condition was progressively getting worse over the past few days. She has been using solution more frequently and she was coughing vigorously. For that reason she was admitted for an acute COPD exacerbation. At the same time, the patient was having some intermittent cramping of her abdomen and she has noted to eat less and she had diminished oral intake. Denied having any diarrhea. No hematemesis. No melanotic stool. She has been afebrile for now. On 02/24/2017 the patient is less short of breath compared to yesterday. Breathing easier. Less spastic. Less wheezing. Responded to bronchitis and systemic steroids. No new complaints otherwise for now. On , the patient is quite anxious and short of breath. She is reporting that the drop in the steroid dose made her more short of breath. At the same time she has noted some increased side effects of the combination of Perforomist and Pulmicort neb as treatments. Note that the patient is on Breo at home as maintenance for COPD. Her baseline FEV1 is noted of 36% of predicted. At the same time the patient is having increased output through her ileostomy bag. She has also some limited abdominal cramping. No fever. No chills. No other complaints otherwise. On 02/27/2017, patient is feeling a bit better, breathing easier, however she seems to be developing some abdominal distention and abdominal cramps, with decreased output in the ileostomy bag. Patient was seen by general surgery on consultation, nasogastric tube was to be placed, and CT of the abdomen and pelvis was ordered. Abdominal films are suggestive of small bowel obstruction CBC showed leukocytosis with WBC count of 14.4. Basic metabolic profile showed hypokalemia with potassium of 3.3. The patient is seen again today 02/28/2017 in follow-up on the regular medical floor. She is awake and alert. She still has some complaints of abdominal discomfort. She was found to have a partial small bowel obstruction. Her ostomy is presently functioning with a small amount of stool and gas. Nasogastric tube remains in place. From the pulmonary standpoint she is breathing better today as compared to yesterday. Continues to maintain good O2 saturations in the 90s on 2 L/m per nasal cannula. She is currently afebrile. No leukocytosis. The patient is seen again today 03/01/2017 in follow-up on the regular medical floor. She denies any pulmonary complaints currently. Her main issue is that of continued with NG tube. She is hoping it comes out today. She is quite agitated. Her ostomy is functioning. She denies any nausea. Dopplers of the lower extremities were negative for DVT. Objective - Vital Signs Vital signs: Vital Signs Temp 97.7 F 03/01/17 07:00 Pulse 98 03/01/17 08:00 Resp 14 03/01/17 08:00 BP 95/63 03/01/17 07:00 Pulse Ox 96 03/01/17 07:00 Intake & Output 02/28/17 03/01/17 03/01/17 18:59 06:59 18:59 Intake Total 700 Output Total 300 Balance -300 700 Weight 49.895 kg Intake: IV 700 0.9% NaCl with KCl 20 Meq 600 /l 1,000 ml @ 100 mls/hr IV .Q10H [facility] Rx#: [id number] Potassium Chloride 20 meq 100 Lidocaine 2% Inj 20 mg In Sodium Chloride 0.9% 100 ml @ 55.5 mls/hr IVPB ONCE ONE Rx#:[id number] Output: Gastric Drainage 300 Other: Voiding Method Toilet Toilet Bedside Commode Bedside Commode # Voids 3 1 - Exam Head exam was generally normal. There was no scleral icterus or corneal arcus. Mucous membranes were moist. Nasogastric tube remains secured in place. Neck was supple and without jugular venous distension, thyromegaly, or carotid bruits. Carotids were easily palpable bilaterally. There was no adenopathy. Lung sounds are diminished and there is prolongation of the expiratory phase of breathing and diffuse expiratory wheezes throughout the lung hunter bilaterally.Cardiac exam revealed the PMI to be normally situated and sized. The rhythm was regular and no extrasystoles were noted during several minutes of auscultation. The first and second heart sounds were normal and physiologic splitting of the second heart sound was noted. There were no murmurs, rubs, clicks, or gallops. Abdomen is soft. There is no direct tenderness or rebound tensile guarding. Ileostomy site is intact dry and clean.Examination of the extremities revealed easily palpable radial, femoral and pedal pulses. There was no cyanosis, clubbing or edema. - Labs CBC & Chem 7: 02/28/17 09:04 03/01/17 08:27 Labs: Abnormal Lab Results - Last 24 Hours (Table) 02/28/17 03/01/17 03/01/17 Range/Units 16:00 07:29 08:27 Potassium 2.8 L* 3.4 L (3.5-5.1) mmol/L POC Glucose (mg/dL) 70 L (75-99) mg/dL Calcium 6.9 L (8.4-10.2) mg/dL Magnesium 3.0 H (1.6-2.3) mg/dL Assessment and Plan Plan: Impression: 1 acute COPD exacerbation secondary to an acute bronchitis. The patient has no evidence of pneumonia the chest x-ray. She is an increased risk of respiratory infections in general based on the fact that the patient has been maintained on Humira on outpatient basis. 2 shortness of breath secondary to above 3 inflammatory bowel disease/Crohn's disease maintained on Humira 4 chronic immunosuppression secondary to intake of Humira 5 fibromyalgia 6 diverticular ileostomy, a complication of inflammatory bowel disease 7 degenerative arthritis 8 osteoporosis 9 hiatal hernia 10 seasonal ALLERGIC rhinitis 11 smoker #12 small bowel obstruction, nasogastric tube remains in place. Plan: The patient was seen and evaluated by Dr. Cintron. We'll continue with her current pulmonary medications. She is quite adamant about having the nasogastric tube removed today. GI services are on the case. We'll continue to follow.
--- NOTE | 2017-03-01 16:52 | P.PN ---
Subjective 56-year-old female seen and examined increasingly more awake and alert this morning. Nasogastric tube in place clamped clear liquid diet tolerating patient is asking for the nasal gastric tube to be removed. Ostomy moderate amount of stool the potassium this morning 3.4 magnesium 2 Objective - Vital Signs Vital signs: Vital Signs Temp 98.3 F 03/01/17 15:00 Pulse 98 03/01/17 15:18 Resp 16 03/01/17 15:18 BP 121/73 03/01/17 15:00 Pulse Ox 94 L 03/01/17 15:00 Intake & Output 02/28/17 03/01/17 03/01/17 18:59 06:59 18:59 Intake Total 700 Output Total 300 Balance -300 700 Weight 49.895 kg Intake: IV 700 0.9% NaCl with KCl 20 Meq 600 /l 1,000 ml @ 100 mls/hr IV .Q10H [facility] Rx#: [id number] Potassium Chloride 20 meq 100 Lidocaine 2% Inj 20 mg In Sodium Chloride 0.9% 100 ml @ 55.5 mls/hr IVPB ONCE ONE Rx#:[id number] Output: Gastric Drainage 300 Other: Voiding Method Toilet Toilet Bedside Commode Bedside Commode # Voids 3 1 2 - Exam Physical exam 56-year-old female resting in bed appears in no acute distress more awake and alert this morning nursing reports they have been giving less narcotics Lungs diminished at the bases otherwise adequate air movement Heart S1-S2 audible regular Abdomen soft mild abdominal tenderness not distended bowel tones present ostomy small amount of stool noted nasal gastric tube in place Extremities no edema - Labs CBC & Chem 7: 02/28/17 09:04 03/01/17 08:27 Labs: Abnormal Lab Results - Last 24 Hours (Table) 03/01/17 03/01/17 Range/Units 07:29 08:27 Potassium 3.4 L (3.5-5.1) mmol/L POC Glucose (mg/dL) 70 L (75-99) mg/dL Calcium 6.9 L (8.4-10.2) mg/dL Assessment and Plan Plan: Impression Abdominal pain present on admission likely due to Crohn's ileitis Acute exacerbation COPD with asthma Present on admission Abdominal pain partial small bowel obstruction Exacerbation of Crohn's disease Status post total colectomy Ileostomy status acute Plan Discontinue the nasal gastric tube Remove Ribera catheter Pain control Increase activity DVT and GI prophylaxis Further recommendations pending Continue to stop all IV pain medication The above dictated assessment and findings were discussed with dr cooper. Impression and the plan of care have been dictated as directed. Kayli Linda nurse practitioner acting as a scribe for dr cooper
[2017-03-01 17:06] LABS: Glucose,Whole Blood 82 mg/dL (75-99)
--- NOTE | 2017-03-01 17:55 | P.PN ---
Subjective Date of service 03/01/2017. Progress note being dictated for Dr. Swan. Interval history: This a 56-year-old female admitted with acute hypercapnic respiratory failure secondary to COPD exacerbation, partial small bowel obstruction in a patient with history of Crohn's disease, with chronic immunosuppression and multiple other medical issues. NG tube re-clampedthis morning, tolerating clear liquid diet.ostomy with increased amounts of stool.complains of cramping, no abdominal pain.potassium 3.4, magnesium 2.afebrile.Dopplers negative for DVT. Objective - Vital Signs Vital signs: Vital Signs Temp 97.7 F 03/01/17 07:00 Pulse 98 03/01/17 15:18 Resp 16 03/01/17 15:18 BP 95/63 03/01/17 07:00 Pulse Ox 96 03/01/17 07:00 Intake & Output 02/28/17 03/01/17 03/01/17 18:59 06:59 18:59 Intake Total 700 Output Total 300 Balance -300 700 Weight 49.895 kg Intake: IV 700 0.9% NaCl with KCl 20 Meq 600 /l 1,000 ml @ 100 mls/hr IV .Q10H [facility] Rx#: [id number] Potassium Chloride 20 meq 100 Lidocaine 2% Inj 20 mg In Sodium Chloride 0.9% 100 ml @ 55.5 mls/hr IVPB ONCE ONE Rx#:[id number] Output: Gastric Drainage 300 Other: Voiding Method Toilet Toilet Bedside Commode Bedside Commode # Voids 3 1 - Exam PHYSICAL EXAM: VITAL SIGNS: [As above] GENERAL: [Sitting up in bed, no acute distress] HEENT: [Pupils equal conjunctiva normal. NG tube present, clamped.] NECK: [Supple, no JVD] RESPIRATORY EFFORT:[Normal] LUNGS: [Diminished with sporadic fine expiratory wheezes throughout, no rhonchi , no crackles] CARDIOVASCULAR[regular S1 and S2, no murmurs rubs or gallops, no edema] GI: [Abdomen soft, nondistended, nontender, ostomy with stool ,positive bowel sounds.] PSYCH: [Alert and oriented -3, mood and affect normal.] NEURO: [As neurological examination did not reveal any focal deficits, moves all 4 extremities, strength and sensation grossly intact] - Labs CBC & Chem 7: 02/28/17 09:04 03/01/17 08:27 Labs: Abnormal Lab Results - Last 24 Hours (Table) 02/28/17 03/01/17 03/01/17 Range/Units 16:00 07:29 08:27 Potassium 2.8 L* 3.4 L (3.5-5.1) mmol/L POC Glucose (mg/dL) 70 L (75-99) mg/dL Calcium 6.9 L (8.4-10.2) mg/dL Magnesium 3.0 H (1.6-2.3) mg/dL Assessment and Plan Plan: 1. Acute hypercapnic, respiratory failure secondary to COPD exacerbation. 2. [Partial small bowel obstruction in a patient with history of Crohn's disease without significant exacerbation],possibly narcotic induced. 3. [Chronic immunosuppression on Humira]. 4. [Fibromyalgia]. 5. [Hiatal hernia]. 6. [Degenerative arthritis]. 7. [Leukocytosis, reactive]. 8. Ongoing nicotine abuse 9. Hypokalemia 10. Hypomagnesemia 11. Status post total colectomy, ileostomy Plan: Continue on current medication regime, nebulized bronchodilators, systemic steroids, GI and DVT prophylaxis, monitoring and symptomatic treatment.potassium supplements as per electrolyte replacement protocols.close monitoring of electrolytes with repeat labs ordered for a.m. Diet advancement as per surgery.pain management as per surgery. Increase ambulation as tolerated. possible NG discontinuation as per surgery. The impression and plan of care has been dictated as directed. : I performed a H&P examination of this patient and discussed the same with the dictator. I agree with the dictator's note. Any additional findings/opinions/ etc. will be noted.
--- NOTE | 2017-03-01 18:07 | P.PN ---
Progress Note - Text Nasogastric tube discontinued. Patient has started a full liquid diet. Abdominal pain moderately improved. No surgical intervention needed. Diet as tolerated. Will follow as needed.
[2017-03-01] MEDS: ALPRAZolam 0.5 MG TAB PO PRN (20:20)
[2017-03-01 21:04] LABS: Glucose,Whole Blood 105 mg/dL (75-99)
[2017-03-01] MEDS: MELATONIN 3 MG TABLET PO SCH (21:39)
[2017-03-01] MEDS: ZOLPIDEM 10 MG TAB PO PRN (21:42)
[2017-03-02] MEDS: ALPRAZolam 0.5 MG TAB PO PRN ×3 (03:15→15:51)
[2017-03-02] MEDS: 0.9% NACL WITH KCL 20 MEQ/L 1,000 ML IV SCH ×2 (03:15→12:35)
[2017-03-02] MEDS: Acetaminophen-Codeine 300-30mg TAB PO SCH ×2 (05:41→11:28)
[2017-03-02] MEDS: KETOROLAC 30 MG/ML 1 ML VIAL IVP SCH ×2 (05:42→11:26)
[2017-03-02] MEDS: METOCLOPRAMIDE 5 MG/ML 2 ML VIAL IVP SCH ×2 (05:42→11:30)
[2017-03-02 07:29] LABS: Glucose,Whole Blood 99 mg/dL (75-99)
[2017-03-02 07:33] VITALS: TEMP 97.5
[2017-03-02] MEDS: SYMBICORT 160-4.5 MCG INHALER INHALATION SCH (07:35)
[2017-03-02] MEDS: IPRATROPIUM-ALBUTEROL 3 ML NEB INHALATION SCH ×3 (07:35→15:52)
[2017-03-02 09:14] LABS: Anion Gap 8 mmol/L; Blood Urea Nitrogen 7 mg/dL (7-17); Calcium 7.9 mg/dL (8.4-10.2); Carbon Dioxide 23 mmol/L (22-30); Chloride 108 mmol/L (98-107); Glucose 126 mg/dL (74-99); Non-African American GFR(MDRD) >60 (>60 ml/min/1.73 sqM); Potassium 4.1 mmol/L (3.5-5.1); Sodium 139 mmol/L (137-145)
[2017-03-02] MEDS: PANTOPRAZOLE 40 MG/10 ML VIAL IVP SCH (09:55)
[2017-03-02] MEDS: MERCAPTOPURINE 50 MG TAB PO SCH (09:55)
[2017-03-02] MEDS: predniSONE 20 MG TAB PO SCH (09:56)
[2017-03-02] MEDS: NICOTINE 21MG/24HR PATCH TRANSDERM SCH (09:56)
[2017-03-02] MEDS: INSULIN LISPRO (humaLOG) 300 UNIT/3 ML VIAL SQ SCH ×2 (09:56→12:35)
[2017-03-02] MEDS: OPIUM PO SCH ×2 (09:56→12:34)
[2017-03-02] MEDS: CHLORPHEN-HYDROcod 8-10mg/5ml 5 ML ORAL.SYRG PO SCH (09:59)
[2017-03-02] MEDS: ONDANSETRON 4 MG/2 ML VIAL IVP PRN (10:18)
[2017-03-02] MEDS ORDERED: SODIUM CHLORIDE 0.9% 1,000 ML IV ONE (10:45)
[2017-03-02 10:59] VITALS: RESP 16
[2017-03-02 11:40] LABS: Glucose,Whole Blood 89 mg/dL (75-99)
--- NOTE | 2017-03-02 14:02 | P.PN ---
Subjective Principal diagnosis: 56-year-old female patient with known history of COPD with a baseline FEV1 of 36 % of predicted coming in for increased shortness of breath and COPD exacerbation. Patient is well-known to me. She has been maintained on a combination of Breo Ellipta and Tudorza on an outpatient basis. She had been doing well. She had been on no oxygen yet. She also has inflammatory bowel disease and she is on Humira on outpatient basis. The patient presented to the hospital because of worsening shortness of breath. She has a congested cough. She is unable to bring up much of sputum. No pleurisy. No hemoptysis. Chest x -ray is clear. Her condition was progressively getting worse over the past few days. She has been using solution more frequently and she was coughing vigorously. For that reason she was admitted for an acute COPD exacerbation. At the same time, the patient was having some intermittent cramping of her abdomen and she has noted to eat less and she had diminished oral intake. Denied having any diarrhea. No hematemesis. No melanotic stool. She has been afebrile for now. On 02/24/2017 the patient is less short of breath compared to yesterday. Breathing easier. Less spastic. Less wheezing. Responded to bronchitis and systemic steroids. No new complaints otherwise for now. On , the patient is quite anxious and short of breath. She is reporting that the drop in the steroid dose made her more short of breath. At the same time she has noted some increased side effects of the combination of Perforomist and Pulmicort neb as treatments. Note that the patient is on Breo at home as maintenance for COPD. Her baseline FEV1 is noted of 36% of predicted. At the same time the patient is having increased output through her ileostomy bag. She has also some limited abdominal cramping. No fever. No chills. No other complaints otherwise. On 02/27/2017, patient is feeling a bit better, breathing easier, however she seems to be developing some abdominal distention and abdominal cramps, with decreased output in the ileostomy bag. Patient was seen by general surgery on consultation, nasogastric tube was to be placed, and CT of the abdomen and pelvis was ordered. Abdominal films are suggestive of small bowel obstruction CBC showed leukocytosis with WBC count of 14.4. Basic metabolic profile showed hypokalemia with potassium of 3.3. The patient is seen again today 02/28/2017 in follow-up on the regular medical floor. She is awake and alert. She still has some complaints of abdominal discomfort. She was found to have a partial small bowel obstruction. Her ostomy is presently functioning with a small amount of stool and gas. Nasogastric tube remains in place. From the pulmonary standpoint she is breathing better today as compared to yesterday. Continues to maintain good O2 saturations in the 90s on 2 L/m per nasal cannula. She is currently afebrile. No leukocytosis. 56-year-old female patient with known history of COPD with a baseline FEV1 of 36 % of predicted coming in for increased shortness of breath and COPD exacerbation. Patient is well-known to me. She has been maintained on a combination of Breo Ellipta and Tudorza on an outpatient basis. She had been doing well. She had been on no oxygen yet. She also has inflammatory bowel disease and she is on Humira on outpatient basis. The patient presented to the hospital because of worsening shortness of breath. She has a congested cough. She is unable to bring up much of sputum. No pleurisy. No hemoptysis. Chest x -ray is clear. Her condition was progressively getting worse over the past few days. She has been using solution more frequently and she was coughing vigorously. For that reason she was admitted for an acute COPD exacerbation. At the same time, the patient was having some intermittent cramping of her abdomen and she has noted to eat less and she had diminished oral intake. Denied having any diarrhea. No hematemesis. No melanotic stool. She has been afebrile for now. On 02/24/2017 the patient is less short of breath compared to yesterday. Breathing easier. Less spastic. Less wheezing. Responded to bronchitis and systemic steroids. No new complaints otherwise for now. On , the patient is quite anxious and short of breath. She is reporting that the drop in the steroid dose made her more short of breath. At the same time she has noted some increased side effects of the combination of Perforomist and Pulmicort neb as treatments. Note that the patient is on Breo at home as maintenance for COPD. Her baseline FEV1 is noted of 36% of predicted. At the same time the patient is having increased output through her ileostomy bag. She has also some limited abdominal cramping. No fever. No chills. No other complaints otherwise. On 02/27/2017, patient is feeling a bit better, breathing easier, however she seems to be developing some abdominal distention and abdominal cramps, with decreased output in the ileostomy bag. Patient was seen by general surgery on consultation, nasogastric tube was to be placed, and CT of the abdomen and pelvis was ordered. Abdominal films are suggestive of small bowel obstruction CBC showed leukocytosis with WBC count of 14.4. Basic metabolic profile showed hypokalemia with potassium of 3.3. The patient is seen again today 02/28/2017 in follow-up on the regular medical floor. She is awake and alert. She still has some complaints of abdominal discomfort. She was found to have a partial small bowel obstruction. Her ostomy is presently functioning with a small amount of stool and gas. Nasogastric tube remains in place. From the pulmonary standpoint she is breathing better today as compared to yesterday. Continues to maintain good O2 saturations in the 90s on 2 L/m per nasal cannula. She is currently afebrile. No leukocytosis. The patient is seen again today 03/01/2017 in follow-up on the regular medical floor. She denies any pulmonary complaints currently. Her main issue is that of continued with NG tube. She is hoping it comes out today. She is quite agitated. Her ostomy is functioning. She denies any nausea. Dopplers of the lower extremities were negative for DVT. The patient is seen again today 03/02/2017 in follow-up on the regular medical floor. She is awake and alert in no acute distress. Her nasogastric tube was removed yesterday. She is feeling back to her baseline. No nausea or vomiting. She is tolerating a full diet. Pulmonary complaints. No shortness of breath, cough or congestion. She is hoping to go home today. Objective - Vital Signs Vital signs: Vital Signs Temp 97.5 F L 03/02/17 07:00 Pulse 85 03/02/17 11:42 Resp 16 03/02/17 08:00 BP 85/55 03/02/17 07:00 Pulse Ox 94 L 03/02/17 07:37 Intake & Output 03/01/17 03/02/17 03/02/17 18:59 06:59 18:59 Intake Total 700 Balance 700 Intake: IV 700 0.9% NaCl with KCl 20 Meq 600 /l 1,000 ml @ 100 mls/hr IV .Q10H [facility] Rx#: [id number] Potassium Chloride 20 meq 100 Lidocaine 2% Inj 20 mg In Sodium Chloride 0.9% 100 ml @ 55.5 mls/hr IVPB ONCE ONE Rx#:[id number] Other: Voiding Method Toilet Bedside Commode # Voids 2 2 # Bowel Movements 0 - Exam Head exam was generally normal. There was no scleral icterus or corneal arcus. Mucous membranes were moist. Neck was supple and without jugular venous distension, thyromegaly, or carotid bruits. Carotids were easily palpable bilaterally. There was no adenopathy. Lung sounds are diminished and there is prolongation of the expiratory phase of breathing and diffuse expiratory wheezes throughout the lung hunter bilaterally.Cardiac exam revealed the PMI to be normally situated and sized. The rhythm was regular and no extrasystoles were noted during several minutes of auscultation. The first and second heart sounds were normal and physiologic splitting of the second heart sound was noted. There were no murmurs, rubs, clicks, or gallops. Abdomen is soft. There is no direct tenderness or rebound tensile guarding. Ileostomy site is intact dry and clean.Examination of the extremities revealed easily palpable radial, femoral and pedal pulses. There was no cyanosis, clubbing or edema. - Labs CBC & Chem 7: 02/28/17 09:04 03/02/17 08:12 Labs: Abnormal Lab Results - Last 24 Hours (Table) 03/01/17 03/02/17 Range/Units 21:02 08:12 Chloride 108 H (98-107) mmol/L Glucose 126 H (74-99) mg/dL POC Glucose (mg/dL) 105 H (75-99) mg/dL Calcium 7.9 L (8.4-10.2) mg/dL Assessment and Plan Plan: Impression: 1 acute COPD exacerbation secondary to an acute bronchitis. The patient has no evidence of pneumonia the chest x-ray. She is an increased risk of respiratory infections in general based on the fact that the patient has been maintained on Humira on outpatient basis. 2 shortness of breath secondary to above 3 inflammatory bowel disease/Crohn's disease maintained on Humira 4 chronic immunosuppression secondary to intake of Humira 5 fibromyalgia 6 diverticular ileostomy, a complication of inflammatory bowel disease 7 degenerative arthritis 8 osteoporosis 9 hiatal hernia 10 seasonal ALLERGIC rhinitis 11 smoker #12 small bowel obstruction, nasogastric tube remains in place. Plan: The patient was seen and evaluated by Dr. Cintron. She is cleared for discharge from the pulmonary standpoint. We'll continue with her current pulmonary medications including bronchodilators, prednisone taper. She'll follow-up in our office in 1 week's time. She is however encouraged to call sooner with any recurrence of symptoms or other questions or concerns.
--- NOTE | 2017-03-02 14:30 | P.PN ---
Subjective 56-year-old female being seen sitting up in a chair taking a diet tolerating. Patient states feeling much better abdominal pain resolved bowel movements from the ostomy taking a regular diet anxious to be discharged home" Objective - Vital Signs Vital signs: Vital Signs Temp 97.5 F L 03/02/17 07:00 Pulse 85 03/02/17 11:42 Resp 16 03/02/17 08:00 BP 85/55 03/02/17 07:00 Pulse Ox 94 L 03/02/17 07:37 Intake & Output 03/01/17 03/02/17 03/02/17 18:59 06:59 18:59 Intake Total 700 Balance 700 Intake: IV 700 0.9% NaCl with KCl 20 Meq 600 /l 1,000 ml @ 100 mls/hr IV .Q10H [facility] Rx#: [id number] Potassium Chloride 20 meq 100 Lidocaine 2% Inj 20 mg In Sodium Chloride 0.9% 100 ml @ 55.5 mls/hr IVPB ONCE ONE Rx#:[id number] Other: Voiding Method Toilet Bedside Commode # Voids 2 2 # Bowel Movements 0 - Exam Physical exam 56-year-old female been up in bed taking a diet tolerating Lungs diminished at the bases otherwise adequate air movement Heart S1-S2 audible regular Abdomen soft mild abdominal tenderness not distended bowel tones present ostomy stooling noted in the ostomy bag Extremities no edema - Labs CBC & Chem 7: 02/28/17 09:04 03/02/17 08:12 Labs: Abnormal Lab Results - Last 24 Hours (Table) 03/01/17 03/02/17 Range/Units 21:02 08:12 Chloride 108 H (98-107) mmol/L Glucose 126 H (74-99) mg/dL POC Glucose (mg/dL) 105 H (75-99) mg/dL Calcium 7.9 L (8.4-10.2) mg/dL Assessment and Plan Plan: Impression Abdominal pain present on admission likely due to Crohn's ileitis Acute exacerbation COPD with asthma Present on admission Abdominal pain partial small bowel obstruction Exacerbation of Crohn's disease Status post total colectomy Ileostomy status acute Plan Discontinue the nasal gastric tube Remove Ribera catheter Pain control Increase activity DVT and GI prophylaxis Further recommendations pending Continue to stop all IV pain medication No surgical intervention needed we'll see patient on an as-needed basis from a surgical perspective patient to be discharged home defer to the timing of the discharge to medicine service The above dictated assessment and findings were discussed with dr cooper. Impression and the plan of care have been dictated as directed. Kayli Linda nurse practitioner acting as a scribe for dr cooper
[2017-03-02 15:37] VITALS: BP 99/66
[2017-03-02 16:06] VITALS: PULSE 86
--- NOTE | 2017-03-02 16:29 | P.DS ---
Providers Date of admission: 02/22/17 12:46 Expected date of discharge: 03/02/17 Attending physician: Lokesh Swan Consults: 02/27/17 10:54 Consult Physician Urgent Consulting Provider: Jane Whatley Consult Reason/Comments: Small bowel obstruction Do you want consulting provider notified?: Yes Dr. Lee, Surgery Dr. Cintron, Pulmonary Primary care physician: [facility] Course: Final Diagnoses: 1. Acute hypercapnic, respiratory failure secondary to COPD exacerbation, improved. 2. [Partial small bowel obstruction in a patient with history of Crohn's disease without significant exacerbation],possibly narcotic induced. Resolved 3. [Chronic immunosuppression on Humira]. 4. [Fibromyalgia]. 5. [Hiatal hernia]. 6. [Degenerative arthritis]. 7. [Leukocytosis, reactive]. 8. Ongoing nicotine abuse 9. Hypokalemia, resolved 10. Hypomagnesemia, resolved 11. HX of total colectomy with ileostomy 12. Chronic COPD Hospital course:This is a 56-year-old female admitted with acute hypercapnic respiratory failure secondary to COPD exacerbation, subsequently developed partial small bowel obstruction in a patient with history of Crohn's disease, with chronic immunosuppression and multiple other medical issues. Maintained on nebulized bronchodilators, steroids .Evaluated by surgery and GI. Conservatively managed with bowel rest, decompression with NG tube. Significant clinical improvement. Patient has been cleared by all consults for discharge. Patient is being discharged home in a stable condition with guarded prognosis. The impression and plan of care has been dictated as directed. : I performed a H&P examination of this patient and discussed the same with the dictator. I agree with the dictator's note. Any additional findings/opinions/ etc. will be noted. Patient Condition at Discharge: Stable Plan - Discharge Summary New Discharge Prescriptions: Nicotine 21Mg/24Hr Patch [Habitrol] 1 patch TRANSDERM DAILY #30 patch predniSONE 10 mg PO DIRECTED #30 tab Discharge Medication List Aclidinium [place] [Tudorza Pressair] 400 mcg INHALATION RT-BID 06/21/14 [ History] Adalimumab [Humira Pen] 40 mg SQ FR 06/21/14 [History] Albuterol Nebulized [Ventolin Nebulized] 2.5 mg INHALATION RT-QID PRN 06/21/14 [ History] Acetaminophen-Codeine 300-30mg [Tylenol w/codeine #3] 1 tab PO TID 08/18/14 [ History] Calcium Carb-Vit D 500Mg-200Un [Oscal 500+D] 1 tab PO BID 04/27/16 [History] Fluticasone/Vilanterol [Breo Ellipta 100-25 Mcg Inhaler] 1 puff INHALATION RT- DAILY 04/27/16 [History] Multivitamins, Thera [Multivitamin (formulary)] 1 tab PO DAILY 04/27/16 [History ] Opium Tincture 2 ml PO QID 04/27/16 [History] Mercaptopurine [Purinethol] 50 mg PO BID 02/22/17 [History] Albuterol Sulfate [Proair Hfa] 2 puff INHALATION QID #0 03/02/17 [Rx] Nicotine 21Mg/24Hr Patch [Habitrol] 1 patch TRANSDERM DAILY #30 patch 03/02/17 [ Rx] predniSONE 10 mg PO DIRECTED #30 tab 03/02/17 [Rx] Follow up Appointment(s)/Referral(s): Magali Cintron MD [STAFF PHYSICIAN] - 03/15/17 1:00 pm Tacho Scott MD [Primary Care Provider] - 03/07/17 3:30 pm Bonnie Verma MD [STAFF PHYSICIAN] - 03/22/17 4:30 pm Ambulatory/Diagnostic Orders: Complete Blood Count w/diff [LAB.AMB] Time Frame: 3 Days, Location: Determined By Patient Patient Instructions/Handouts: Crohn Disease (DC) Activity/Diet/Wound Care/Special Instructions: NO smoking, cessation information provided. O2 sat 96% on room air after ambulation. Soft diet.
[2017-03-03] MEDS ORDERED: PANTOPRAZOLE 40 MG TABLET PO SCH (09:00)
--- NOTE | 2017-03-23 06:47 | PN ---
DATE OF SERVICE: 02/23/2017 ATTENDING NOTE: This patient was seen and examined by me on 02/23/17. I reviewed the note of my nurse practitioner, Ms. Hawthorne. Discussed and agree with the same. Patient was admitted with COPD exacerbation and tracheobronchitis. She has got some cough, tired. On examination, afebrile, blood pressure 100/64, pulse ox 94% on room air, tired appearing. RESPIRATORY: Effort increased. LUNGS: Decreased breath sounds. Prolonged expiration. PSYCH: Alert and oriented x3. Somewhat anxious. INVESTIGATIONS: White count 13.3. ASSESSMENT: 1. Acute severe chronic obstructive pulmonary disease exacerbation in a smoker with tracheobronchitis, slow to respond. 2. Ileostomy in place. PLAN: Continue current medication and treatment plan including IV steroids, nebulized bronchodilator. Will follow with Pulmonary.
--- NOTE | 2017-03-24 07:40 | PN ---
DATE OF SERVICE: 02/24/2017 ATTENDING NOTE: This patient was seen and examined by me on 02/24/2017. I reviewed the note of my nurse practitioner, Ms. Hawthorne. Discussed and agreed. Patient admitted with COPD exacerbation and tracheobronchitis. Sitting at side of bed, anxious, a little bit more relaxed. On examination, afebrile, blood pressure 105/63, pulse ox 92% on room air. RESPIRATORY: Effort increased. LUNGS: Decreased breath sounds. Prolonged expiration. CARDIOVASCULAR: First and second sounds normal. No edema. ABDOMEN: Soft, minimal tenderness. Ileostomy in place. PSYCHIATRY: Some anxiety is present. ASSESSMENT: 1. Acute severe chronic obstructive pulmonary disease exacerbation in a patient slow to respond. 2. Underlying acute tracheobronchitis. Patient is a smoker. 3. Ileostomy in place. PLAN: Continue with nebulized bronchodilators, steroids, antibiotics, Solu-Medrol. Pulmonary is on the case.
== END 2017-03-02 16:58 | disposition home or self-care (01) | DRG 190 ==
LOC: EC 11:06 → 4MS4W 12:46
PROVIDERS: ADMIT Hospitalist; ATTEND Hospitalist
DX: J44.0 Chronic obstructive pulmonary disease with (acute) lower respiratory infection (principal); J96.01 Acute respiratory failure with hypoxia; J96.02 Acute respiratory failure with hypercapnia; K56.60 Unspecified intestinal obstruction; J45.901 Unspecified asthma with (acute) exacerbation; E83.42 Hypomagnesemia; K21.9 Gastro-esophageal reflux disease without esophagitis; J44.1 Chronic obstructive pulmonary disease with (acute) exacerbation; J20.9 Acute bronchitis, unspecified; E86.0 Dehydration; E87.6 Hypokalemia; F17.210 Nicotine dependence, cigarettes, uncomplicated; K44.9 Diaphragmatic hernia without obstruction or gangrene; M15.9 Polyosteoarthritis, unspecified; M79.7 Fibromyalgia; M81.0 Age-related osteoporosis without current pathological fracture; Z79.52 Long term (current) use of systemic steroids; Z90.49 Acquired absence of other specified parts of digestive tract; Z93.3 Colostomy status; Z79.899 Other long term (current) drug therapy; T40.605A Adverse effect of unspecified narcotics, initial encounter
CPT/HCPCS: 36415; 71010; 71020; 74020; 74176; 80048; 80053; 83036; 83735; 84132; 84484; 85025; 85027; 85652; 86140; 87040; 87324; 87328; 87329; 93005; 93970; 94640; 94760; 99285

== ENCOUNTER 2017-03-18 08:08 | Inpatient (IN) | payer BC ==
[2017-03-18] MEDS ORDERED: ALBUTEROL NEBULIZED 2.5 MG/3 ML INHALATION STA (08:46)
[2017-03-18] MEDS ORDERED: methylPREDNISolone SOD SUCCI 125 MG/2 ML VIAL IV STA (08:46)
--- NOTE | 2017-03-18 08:50 | ED ---
General Adult HPI - General Chief complaint: Shortness of Breath Stated complaint: diff breathing Time Seen by Provider: 03/18/17 08:10 Source: patient, RN notes reviewed Mode of arrival: wheelchair Limitations: no limitations - History of Present Illness Initial comments: This is a 56-year-old female who presents emergency department with a past medical history significant for COPD and recently diagnosed pneumonia. Patient states her reading is gotten considerably worse. Patient states she has continued to cough but is not bringing much up. Patient denies any fever or chills. Patient denies any chest pain or palpitations per patient denies any abdominal pain patient denies nausea vomiting diarrhea. Patient denies headache patient denies numbness weakness. Patient denies any lightheadedness dizziness or near syncopal episode. Patient denies any recent injury or trauma. - Related Data Home Medications Medication Instructions Recorded Confirmed Aclidinium [place] [Tudorza 400 mcg INHALATION RT-BID 06/21/14 02/22/17 Pressair] Adalimumab [Humira Pen] 40 mg SQ FR 06/21/14 02/22/17 Albuterol Nebulized [Ventolin 2.5 mg INHALATION RT-QID PRN 06/21/14 02/22/17 Nebulized] Acetaminophen-Codeine 300-30mg 1 tab PO TID 08/18/14 02/22/17 [Tylenol w/codeine #3] Calcium Carb-Vit D 500Mg-200Un 1 tab PO BID 04/27/16 02/22/17 [Oscal 500+D] Fluticasone/Vilanterol [Breo 1 puff INHALATION RT-DAILY 04/27/16 02/22/17 Ellipta 100-25 Mcg Inhaler] Multivitamins, Thera [Multivitamin 1 tab PO DAILY 04/27/16 02/22/17 (formulary)] Opium Tincture 2 ml PO QID 04/27/16 02/22/17 Mercaptopurine [Purinethol] 50 mg PO BID 02/22/17 02/22/17 Previous Rx's Medication Instructions Recorded Albuterol Sulfate [Proair Hfa] 2 puff INHALATION QID #0 03/02/17 Nicotine 21Mg/24Hr Patch [Habitrol] 1 patch TRANSDERM DAILY #30 patch 03/02/17 predniSONE 10 mg PO DIRECTED #30 tab 05/04/17 Allergies Allergy/AdvReac Type Severity Reaction Status Date / Time aspirin Allergy Unknown Verified 03/18/17 08:14 Beta-Blockers Allergy Unknown Verified 03/18/17 08:14 (Beta-Adrenergic Bloc Iodine and Iodide Containing Allergy Unknown Verified 03/18/17 08:14 Produc Sulfa (Sulfonamide Allergy Unknown Verified 03/18/17 08:14 Antibiotics) timolol [Timolol] Allergy Unknown Verified 03/18/17 08:14 Review of Systems ROS Statement: Those systems with pertinent positive or pertinent negative responses have been documented in the HPI. ROS Other: All systems not noted in ROS Statement are negative. Past Medical History Past Medical History: COPD, Fibromyalgia, GERD/Reflux, GI Bleed, Osteoarthritis (OA), Pneumonia Additional Past Medical History / Comment(s): COPD, severe with an FEV1 of 36% of predicted, crohn's, bowel obstructions, lower GI bleeds, hiatal hernia, osteoporosis, arthritis multiple joints, seasonal allergies. History of Any Multi-Drug Resistant Organisms: None Reported Past Surgical History: Breast Surgery, Cholecystectomy, Hernia Repair, Hysterectomy, Orthopedic Surgery Additional Past Surgical History / Comment(s): Multiple bowel surgeries including total colectomy/ileostomy, ileostomy moved/repaired, R tube and R ovary removed due toectopic , total hysterectomy, leep procedure, laparoscopy for endometriosis, L breast lumpectomy-benign, r breast core bx- benign, EGD/colonoscopies. Past Anesthesia/Blood Transfusion Reactions: No Reported Reaction Past Psychological History: No Psychological Hx Reported Additional Psychological History / Comment(s): Pt currently is staying with her 90 yr old father who has dementia. Her spouse is staying at their home to care for the dogs. 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 She is independent. Smoking Status: Former smoker Past Alcohol Use History: None Reported Additional Past Alcohol Use History / Comment(s): smoker since age 17 currently smoking <1/2 pack/wk Past Drug Use History: None Reported - Past Family History Mother Family Medical History: Cancer, COPD Additional Family Medical History / Comment(s): Skin cancer and osteoporosis. Father Family Medical History: Dementia Additional Family Medical History / Comment(s): Father is 90yrs old. General Exam - General Exam Comments Initial Comments: GENERAL: Patient is well-developed and well-nourished. Patient is nontoxic and well- hydrated and is in mild distress. ENT: Neck is soft and supple. No significant lymphadenopathy is noted. Oropharynx is clear. Moist mucous membranes. Neck has full range of motion without eliciting any pain. EYES: The sclera were anicteric and conjunctiva were pink and moist. Extraocular movements were intact and pupils were equal round and reactive to light. Eyelids were unremarkable. PULMONARY: Expiratory wheezing on the left and minimal on the right CARDIOVASCULAR: Patient is tachycardic. ABDOMEN: Soft and nontender with normal bowel sounds. No palpable organomegaly was noted. There is no palpable pulsatile mass. SKIN: Skin is clear with no lesions or rashes and otherwise unremarkable. NEUROLOGIC: Patient is alert and oriented x3. Cranial nerves II through XII are grossly intact. Motor and sensory are also intact. Normal speech, volume and content. Symmetrical smile. MUSCULOSKELETAL: Normal extremities with adequate strength and full range of motion. No lower extremity swelling or edema. No calf tenderness. LYMPHATICS: No significant lymphadenopathy is noted PSYCHIATRIC: Normal psychiatric evaluation. Normal interpersonal interactions appears functionally intact in deals appropriately with others. No signs of depression. No signs of anxiety. Limitations: no limitations Course Vital Signs 03/18/17 03/18/17 03/18/17 08:11 08:58 09:05 Pulse Rate 111 H 81 Respiratory 24 24 Rate Blood Pressure 183/87 O2 Sat by Pulse 96 Oximetry 03/18/17 09:27 Pulse Rate 112 H Respiratory Rate Blood Pressure O2 Sat by Pulse Oximetry Medical Decision Making - Medical Decision Making EKG shows sinus rhythm at 77 bpm NC interval is 126 QRS is 68 QT interval 356 QTC is 402. Patient's EKG shows no ST segment elevation or depression or T- wave abnormality is noted Chest x-ray shows right lower lobe pneumonia. Patient continues to wheeze and feel short of breath after 3 consecutive breathing treatments. I spoke with because she agrees to admit the patient I admitted the patient I wrote admitting orders and continued breathing treatments steroids and antibiotics on the floor - Lab Data Result diagrams: 03/18/17 08:42 03/18/17 08:42 Lab Results 03/18/17 03/18/17 03/18/17 Range/Units 08:42 08:42 08:42 WBC 12.1 H (3.8-10.6) k/uL RBC 4.67 (3.80-5.40) m/uL Hgb 15.6 D (11.4-16.0) gm/dL Hct 47.2 H (34.0-46.0) % MCV 101.0 H (80.0-100.0) fL MCH 33.5 (25.0-35.0) pg MCHC 33.1 (31.0-37.0) g/dL RDW 15.0 (11.5-15.5) % Plt Count 477 H D (150-450) k/uL Neutrophils % 71 % Lymphocytes % 19 % Monocytes % 7 % Eosinophils % 0 % Basophils % 1 % Neutrophils # 8.5 H (1.3-7.7) k/uL Lymphocytes # 2.2 (1.0-4.8) k/uL Monocytes # 0.9 (0-1.0) k/uL Eosinophils # 0.1 (0-0.7) k/uL Basophils # 0.1 (0-0.2) k/uL Macrocytosis Slight PT (9.0-12.0) sec INR (<1.1) APTT (22.0-30.0) sec Sodium 141 (137-145) mmol/L Potassium 4.6 (3.5-5.1) mmol/L Chloride 103 (98-107) mmol/L Carbon Dioxide 29 (22-30) mmol/L Anion Gap 9 mmol/L BUN 17 (7-17) mg/dL Creatinine 0.75 (0.52-1.04) mg/dL Est GFR (MDRD) Af Amer >60 (>60 ml/min/1.73 sqM) Est GFR (MDRD) Non-Af >60 (>60 ml/min/1.73 sqM) Glucose 94 (74-99) mg/dL Calcium 10.1 (8.4-10.2) mg/dL Magnesium 1.8 (1.6-2.3) mg/dL Total Bilirubin 0.6 (0.2-1.3) mg/dL AST 48 H (14-36) U/L ALT 111 H (9-52) U/L Alkaline Phosphatase 81 (38-126) U/L Total Creatine Kinase 39 (30-135) U/L CK-MB (CK-2) 2.6 H* (0.0-2.4) ng/mL CK-MB (CK-2) Rel Index 6.7 Troponin I <0.012 (0.000-0.034) ng/mL Total Protein 7.5 (6.3-8.2) g/dL Albumin 4.5 (3.5-5.0) g/dL 03/18/17 Range/Units 08:42 WBC (3.8-10.6) k/uL RBC (3.80-5.40) m/uL Hgb (11.4-16.0) gm/dL Hct (34.0-46.0) % MCV (80.0-100.0) fL MCH (25.0-35.0) pg MCHC (31.0-37.0) g/dL RDW (11.5-15.5) % Plt Count (150-450) k/uL Neutrophils % % Lymphocytes % % Monocytes % % Eosinophils % % Basophils % % Neutrophils # (1.3-7.7) k/uL Lymphocytes # (1.0-4.8) k/uL Monocytes # (0-1.0) k/uL Eosinophils # (0-0.7) k/uL Basophils # (0-0.2) k/uL Macrocytosis PT 9.5 (9.0-12.0) sec INR 0.9 (<1.1) APTT 22.0 (22.0-30.0) sec Sodium (137-145) mmol/L Potassium (3.5-5.1) mmol/L Chloride (98-107) mmol/L Carbon Dioxide (22-30) mmol/L Anion Gap mmol/L BUN (7-17) mg/dL Creatinine (0.52-1.04) mg/dL Est GFR (MDRD) Af Amer (>60 ml/min/1.73 sqM) Est GFR (MDRD) Non-Af (>60 ml/min/1.73 sqM) Glucose (74-99) mg/dL Calcium (8.4-10.2) mg/dL Magnesium (1.6-2.3) mg/dL Total Bilirubin (0.2-1.3) mg/dL AST (14-36) U/L ALT (9-52) U/L Alkaline Phosphatase (38-126) U/L Total Creatine Kinase (30-135) U/L CK-MB (CK-2) (0.0-2.4) ng/mL CK-MB (CK-2) Rel Index Troponin I (0.000-0.034) ng/mL Total Protein (6.3-8.2) g/dL Albumin (3.5-5.0) g/dL Critical Care Time Critical Care Time: Yes Total Critical Care Time: 35 Disposition Clinical Impression: Pneumonia, COPD exacerbation Disposition: ADMITTED IP TO THIS HOSP Referrals: Tacho Scott MD [Primary Care Provider] - 1-2 days Time of Disposition: 10:02
[2017-03-18 09:06] LABS: Basophils # (A) 0.1 k/uL (0-0.2); Basophils % (A) 1 %; CH 33.2; CHCM 33.1; Eosinophils # (A) 0.1 k/uL (0-0.7); Eosinophils % (A) 0 %; HCT 47.2 % (34.0-46.0); HDW 2.82; Luc % (Auto) 3; Lymphocytes # (A) 2.2 k/uL (1.0-4.8); Lymphocytes % (A) 19 %; MCH 33.5 pg (25.0-35.0); MCHC 33.1 g/dL (31.0-37.0); Macrocytosis Slight; Mean Platelet Volume 6.8; Monocytes # (A) 0.9 k/uL (0-1.0); Monocytes % (A) 7 %; Neutrophils # (A) 8.5 k/uL (1.3-7.7); Neutrophils % (A) 71 %; RBC 4.67 m/uL (3.80-5.40); WBC 12.1 k/uL (3.8-10.6); WBC (Perox) 11.32
--- NOTE | 2017-03-18 09:07 | XR ---
EXAMINATION TYPE: XR chest 2V DATE OF EXAM: 03/18/2017 9:01 AM COMPARISON: 03/15/2017 HISTORY: 56-year-old female difficulty breathing TECHNIQUE: Interval and lateral views FINDINGS: Heart is normal size. Aorta and pulmonary vasculature within normal limits. Old healed right-sided ri b fracture deformities. Hyperinflation with flattening of the hemidiaphragms. The previously seen opa city is noted on the lateral view posteriorly at the base. This is a prominent focal opacity and foll ow-up should be performed to ensure resolution. No pleural effusion. IMPRESSION: COPD with continued focal posterior right basilar opacity compatible with pneumonia in the correct cl inical setting. However, note that the patient should be reassessed after treatment to ensure clearan ce as there is increased risk for development of lung cancer.
[2017-03-18 09:08] LABS: HGB 15.6 gm/dL (11.4-16.0)
[2017-03-18 09:14] LABS: INR 0.9 (<1.1); Prothrombin Time 9.5 sec (9.0-12.0)
[2017-03-18 09:19] LABS: ALT 111 U/L (9-52); AST 48 U/L (14-36); Alkaline Phosphatase 81 U/L (38-126); Anion Gap 9 mmol/L; Blood Urea Nitrogen 17 mg/dL (7-17); Calcium 10.1 mg/dL (8.4-10.2); Carbon Dioxide 29 mmol/L (22-30); Chloride 103 mmol/L (98-107); Glucose 94 mg/dL (74-99); Magnesium 1.8 mg/dL (1.6-2.3); Non-African American GFR(MDRD) >60 (>60 ml/min/1.73 sqM); Potassium 4.6 mmol/L (3.5-5.1); Sodium 141 mmol/L (137-145); Total Bilirubin 0.6 mg/dL (0.2-1.3); Total Protein 7.5 g/dL (6.3-8.2)
[2017-03-18 09:26] LABS: Creatine Kinase 39 U/L (30-135)
[2017-03-18 09:39] LABS: Troponin I <0.012 ng/mL (0.000-0.034)
[2017-03-18 09:51] LABS: Creatine Kinase MB 2.6 ng/mL (0.0-2.4)
[2017-03-18] MEDS ORDERED: SODIUM CHLORIDE 0.9% 1,000 ML IV ONE (10:35)
[2017-03-18] MEDS: HYDROmorphone 1 MG/ML 1 ML SYRINGE IVP STA ×2 (10:41→12:28)
[2017-03-18] MEDS: IPRATROPIUM-ALBUTEROL 3 ML NEB INHALATION PRN ×2 (10:48→16:59)
[2017-03-18] MEDS: methylPREDNISolone SOD SUCCI 125 MG/2 ML VIAL IV SCH (12:26)
[2017-03-18] MEDS: NICOTINE 21MG/24HR PATCH TRANSDERM SCH (18:17)
[2017-03-18] MEDS: PIPERACILLIN-TAZOBACTAM 3.375 GM in DEXTROSE/WATER 1 50ML.BAG IVPB SCH (18:17)
[2017-03-18] MEDS: Acetaminophen-Codeine 300-30mg TAB PO SCH ×2 (18:18→21:52)
[2017-03-18] MEDS: methylPREDNISolone SOD SUCCI 40 MG/ML 1 ML VIAL IV SCH (18:36)
[2017-03-18] MEDS ORDERED: BUDESONIDE 1 MG/2 ML NEBU INHALATION SCH (20:00)
[2017-03-18] MEDS: IPRATROPIUM-ALBUTEROL 3 ML NEB INHALATION SCH (20:17)
[2017-03-18] MEDS: MERCAPTOPURINE 50 MG TAB PO SCH (21:51)
[2017-03-18] MEDS: FLUCONAZOLE 100 MG TAB PO SCH (21:51)
[2017-03-18] MEDS: guaiFENesin 600 MG TABLET.ER PO SCH (21:52)
[2017-03-18] MEDS: OPIUM PO SCH (21:52)
[2017-03-18] MEDS: SODIUM CHLORIDE 0.9% 1,000 ML IV SCH (21:53)
[2017-03-18 22:08] VITALS: BMI 19.8
[2017-03-19] MEDS: ENOXAPARIN 40 MG/0.4 ML SYRINGE SQ SCH ×2 (00:54→08:42)
[2017-03-19] MEDS: methylPREDNISolone SOD SUCCI 40 MG/ML 1 ML VIAL IV SCH ×2 (00:58→08:38)
[2017-03-19] MEDS: PIPERACILLIN-TAZOBACTAM 3.375 GM in DEXTROSE/WATER 1 50ML.BAG IVPB SCH ×4 (00:58→23:51)
[2017-03-19] MEDS: ZOLPIDEM 5 MG TAB PO PRN ×2 (01:05→22:37)
[2017-03-19] MEDS: IPRATROPIUM-ALBUTEROL 3 ML NEB INHALATION SCH ×8 (01:06→23:48)
[2017-03-19] MEDS ORDERED: SYMBICORT 80-4.5 MCG INHALER INHALATION SCH (08:00)
--- NOTE | 2017-03-19 08:23 | HP ---
DATE OF ADMISSION: 03/18/2017 PRESENTING COMPLAINT: Short of breath, coughing. HISTORY OF PRESENTING COMPLAINT: This is a 56-year-old patient with extensive medical history follows with Dr. Scott. Patient's chronic stable medical conditions include fibromyalgia, GERD, osteoarthritis, hiatal hernia, osteoporosis, history of Crohn's and ulcerative colitis and had her large bowel resected and has chronic ileostomy with intermittent diarrhea. Patient presents with worsening wheezing, coughing, congested in her chest, not able to expectorate, tired, rundown. Had been to Dr. Cintron's office, did not feel much better; hence, decided to come in. REVIEW OF SYSTEMS: CONSTITUTIONAL: Weak and tired. HEENT: None. RESPIRATORY: As above. CARDIOVASCULAR: None. GASTROINTESTINAL: As above. GENITOURINARY: None. MUSCULOSKELETAL: Pain in the joints. DERMATOLOGIC: None. HEMATOLOGIC: None. LYMPHATIC: None. PSYCHIATRY: Anxious. NEUROLOGICAL: None. PAST HISTORY: COPD, fibromyalgia, GERD, osteoarthritis, Crohn's/ulcerative colitis, ileostomy, hiatal hernia, osteoporosis. PAST SURGICAL HISTORY: Breast surgery, cholecystectomy, hernia repair, multiple bowel surgeries including total colectomy leading to ileostomy, right ovary removed, ectopic , total hysterectomy, LEEP procedure, laparoscopy for endometriosis, left breast lumpectomy, right breast core biopsy. SOCIAL HISTORY: Patient has a 90-year-old father at home, , up until a month ago did smoke up to 2 packs and half a day for 40 years. No alcohol. FAMILY HISTORY: COPD, skin cancer, osteoporosis. HOME MEDICATIONS: 1. Prednisone. 2. Opium tincture 2 mL p.o. q.i.d. 3. Nicotine 20 mg patch daily. 4. Multivitamin 1 tablet p.o. daily. 5. Captopril 50 mg p.o. b.i.d. 6. Levaquin 500 mg p.o. daily. 7. Breo Ellipta 100/25, 1 puff b.i.d. 8. Diflucan 100 mg p.o. b.i.d. 9. Vitamin D 1 tablet p.o. b.i.d. 10. ProAir 2 puffs q.i.d. p.r.n. 11. Ventolin. 12. Humira 40 mg subcu on Fridays. 13. Tudorza 400 mcg b.i.d. 14. Tylenol 3, 1 tablet p.o. t.i.d. ALLERGIES TO ASPIRIN, BETA GLO, IODINE, SULFA, TIMOLOL. PHYSICAL EXAMINATION: VITAL SIGNS ON PRESENTATION: Temperature 98.3, pulse 98, respiratory rate 20, blood pressure 155/86, pulse ox 99% on 3 liters. GENERAL APPEARANCE: Average build, sitting up, tired -appearing. EYES: Pupils equal. Conjunctivae normal. HEENT: Oral repair cavity normal. NECK: JVD is not raised. Mass not palpable. RESPIRATORY: Effort increased. LUNGS: Diminished breath sounds. Prolonged expiration, wheezing, expiratory crackles. CARDIOVASCULAR: First and second sounds normal. No edema. ABDOMEN: Soft, nontender. Liver and spleen not palpable. Patient has ileostomy bag in place. LYMPHATIC: No lymph node palpable in neck or axillae. PSYCHIATRY: Alert and oriented x3. Mood and affect anxious -appearing. NEUROLOGICAL: Pupils equal. Cranial nerves grossly intact. Power and sensation grossly intact. INVESTIGATIONS: White count 12.1, hemoglobin 15.6. Potassium 4.6. BUN and creatinine are normal. ASSESSMENT: 1. Acute severe chronic obstructive pulmonary disease exacerbation in patient who is an ex-smoker. 2. Gastroesophageal reflux disease. 3. Primary osteoarthritis in multiple joints. 4. Chronic Crohn's disease and ulcerative colitis leading to ileostomy following total colectomy. 5. Hiatal hernia. 6. Osteoporosis. 7. Anxiety not otherwise specified. PLAN: The patient was started on nebulized bronchodilators, IV steroids. Also added Mucinex. Also a flutter valve. Patient is put on IV Zosyn. Pulmonary is consulted. Care was discussed with the patient.
[2017-03-19] MEDS: MERCAPTOPURINE 50 MG TAB PO SCH ×2 (08:42→20:39)
[2017-03-19] MEDS: NICOTINE 21MG/24HR PATCH TRANSDERM SCH (08:42)
[2017-03-19] MEDS: guaiFENesin 600 MG TABLET.ER PO SCH ×2 (08:43→21:24)
[2017-03-19] MEDS: FLUCONAZOLE 100 MG TAB PO SCH ×2 (08:43→21:24)
[2017-03-19] MEDS: Acetaminophen-Codeine 300-30mg TAB PO SCH ×3 (08:46→20:44)
[2017-03-19] MEDS: OPIUM PO SCH ×4 (08:47→22:37)
[2017-03-19] MEDS ORDERED: LEVOFLOXACIN 500 MG TAB PO SCH (09:00)
--- NOTE | 2017-03-19 12:19 | XR ---
EXAMINATION TYPE: XR chest 1V DATE OF EXAM: 03/19/2017 12:14 PM COMPARISON: 03/18/2017 INDICATION: Changing difficulty breathing TECHNIQUE: Single frontal view of the chest is obtained. FINDINGS: The heart size is normal. The pulmonary vasculature is normal. 3 be mild increasing right lower lobe infiltrate. Old right rib fractures are present. Some mild blun ting left costophrenic angle suggesting minimal left pleural effusion IMPRESSION: 1. Mild developing right lower lobe infiltrate. Correlate for pneumonia or atelectasis. 2. Suggestion of minimal left pleural effusion
[2017-03-19] MEDS: methylPREDNISolone SOD SUCCI 125 MG/2 ML VIAL IV SCH ×3 (12:25→20:36)
[2017-03-19] MEDS: MULTIVITAMINS, THERA 1 EACH TAB PO SCH (12:37)
--- NOTE | 2017-03-19 13:58 | P.CNPUL ---
History of Present Illness Consult date: 03/19/17 Reason for consult: dyspnea, COPD Review of Systems All systems: negative Constitutional: Denies chills, Denies fever Eyes: denies blurred vision, denies pain Ears, nose, mouth and throat: Denies headache, Denies sore throat Cardiovascular: Reports chest pain (Chest wall pain with cough and), Reports dyspnea on exertion, Reports shortness of breath Respiratory: Reports congestion, Reports cough, Reports cough with sputum, Reports dyspnea, Reports respiratory infections Gastrointestinal: Denies abdominal pain, Denies diarrhea, Denies nausea, Denies vomiting Genitourinary: Denies dysuria, Denies hematuria Musculoskeletal: Denies myalgias Integumentary: Denies pruritus, Denies rash Neurological: Denies numbness, Denies weakness Psychiatric: Denies anxiety, Denies depression Endocrine: Denies fatigue, Denies weight change Past Medical History Past Medical History: COPD, Fibromyalgia, GERD/Reflux, GI Bleed, Osteoarthritis (OA), Pneumonia Additional Past Medical History / Comment(s): COPD, severe with an FEV1 of 36% of predicted, crohn's, bowel obstructions, lower GI bleeds, hiatal hernia, osteoporosis, arthritis multiple joints, seasonal allergies. History of Any Multi-Drug Resistant Organisms: None Reported Past Surgical History: Breast Surgery, Cholecystectomy, Hernia Repair, Hysterectomy, Orthopedic Surgery Additional Past Surgical History / Comment(s): Multiple bowel surgeries including total colectomy/ileostomy, ileostomy moved/repaired, R tube and R ovary removed due toectopic , total hysterectomy, leep procedure, laparoscopy for endometriosis, L breast lumpectomy-benign, r breast core bx- benign, EGD/colonoscopies. Past Anesthesia/Blood Transfusion Reactions: No Reported Reaction Past Psychological History: No Psychological Hx Reported Additional Psychological History / Comment(s): Pt currently is staying with her 90 yr old father who has dementia. Her spouse is staying at their home to care for the dogs. 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 She is independent. Smoking Status: Former smoker Past Alcohol Use History: None Reported Additional Past Alcohol Use History / Comment(s): smoker since age 17. pt states she has not smoked since last admission early this month, has been using nicotine patch at home Past Drug Use History: None Reported - Past Family History Mother Family Medical History: Cancer, COPD Additional Family Medical History / Comment(s): Skin cancer and osteoporosis. Father Family Medical History: Dementia Additional Family Medical History / Comment(s): Father is 90yrs old. Medications and Allergies Home Medications Medication Instructions Recorded Confirmed Type Aclidinium [place] [Tudorza 400 mcg INHALATION RT-BID 06/21/14 03/18/17 History Pressair] Adalimumab [Humira Pen] 40 mg SQ FR 06/21/14 03/18/17 History Albuterol Nebulized [Ventolin 2.5 mg INHALATION RT-QID PRN 06/21/14 03/18/17 History Nebulized] Acetaminophen-Codeine 300-30mg 1 tab PO TID 08/18/14 03/18/17 History [Tylenol w/codeine #3] Calcium Carb-Vit D 500Mg-200Un 1 tab PO BID 04/27/16 03/18/17 History [Oscal 500+D] Fluticasone/Vilanterol [Breo 1 puff INHALATION RT-DAILY 04/27/16 03/18/17 History Ellipta 100-25 Mcg Inhaler] Multivitamins, Thera [Multivitamin 1 tab PO DAILY 04/27/16 03/18/17 History (formulary)] Opium Tincture 2 ml PO QID 04/27/16 03/18/17 History Mercaptopurine [Purinethol] 50 mg PO BID 02/22/17 03/18/17 History Albuterol Sulfate [Proair Hfa] 2 puff INHALATION RT-QID PRN 03/18/17 03/18/17 History Fluconazole [Diflucan] 100 mg PO BID 03/18/17 03/18/17 History Levofloxacin [Levaquin] 500 mg PO DAILY 03/18/17 03/18/17 History predniSONE See Taper PO DIRECTED 03/18/17 03/18/17 History Allergies Allergy/AdvReac Type Severity Reaction Status Date / Time aspirin Allergy Unknown Verified 03/18/17 22:09 Beta-Blockers Allergy Unknown Verified 03/18/17 22:09 (Beta-Adrenergic Bloc Iodine and Iodide Containing Allergy Unknown Verified 03/18/17 22:09 Produc Sulfa (Sulfonamide Allergy Unknown Verified 03/18/17 22:09 Antibiotics) timolol [Timolol] Allergy Unknown Verified 03/18/17 22:09 Physical Exam Vitals: Vital Signs Temp Pulse Pulse Resp BP BP Pulse Ox 03/19/17 11:57 97.8 F 120 H 24 125/77 98 03/19/17 11:25 105 H 03/19/17 11:15 104 H 03/19/17 11:00 99 03/19/17 10:17 97 03/19/17 09:48 97.9 F 03/19/17 08:00 28 H 03/19/17 07:45 96.8 F L 99 28 H 111/69 99 03/19/17 07:22 106 H 03/19/17 07:20 99 03/19/17 07:12 102 H 03/19/17 04:15 102 H 24 97 03/19/17 01:15 105 H 03/19/17 01:06 92 03/19/17 01:00 28 H 03/18/17 22:09 96 20 03/18/17 20:45 97.2 F L 111 H 32 H 146/87 97 03/18/17 20:30 110 H 03/18/17 20:19 107 H 03/18/17 17:22 99 03/18/17 17:12 100 03/18/17 17:00 112 H 28 H 03/18/17 16:59 95 03/18/17 15:40 98.3 F 98 20 159/86 99 03/18/17 14:17 97.0 F L 77 16 131/74 93 L Intake and Output 03/18/17 03/19/17 03/19/17 22:59 06:59 14:59 Intake Total 160 Balance 160 Intake: Oral 160 Other: Voiding Method Incontinent Incontinent # Voids 1 1 3 # Bowel Movements 1 1 Weight 47.627 kg Thin and frail and anxious. In mild degree of respiratory distress. Not using accessory muscles of breathing and she is able to complete full sentences.Head exam was generally normal. There was no scleral icterus or corneal arcus. Mucous membranes were moist.Neck was supple and without jugular venous distension, thyromegaly, or carotid bruits. Carotids were easily palpable bilaterally. There was no adenopathy. Lung sounds are diminished bilaterally along with some scattered expiratory wheezes and prolongation of the expiratory phase of breathing.. The chest wall muscles are quite sore to palpation and touch. Cardiac exam revealed the PMI to be normally situated and sized. The rhythm was regular and no extrasystoles were noted during several minutes of auscultation. The first and second heart sounds were normal and physiologic splitting of the second heart sound was noted. There were no murmurs, rubs, clicks, or gallops.Abdominal exam revealed normal bowel sounds. The abdomen was soft, non-tender, and without masses, organomegaly, or appreciable enlargement of the abdominal aorta. The patient had a diabetic ileostomy which is functional at this point Examination of the extremities revealed easily palpable radial, femoral and pedal pulses. There was no cyanosis, clubbing or edema. Results - Laboratory Findings CBC and BMP: 03/18/17 08:42 03/18/17 08:42 PT/INR, D-dimer PT 9.5 sec (9.0-12.0) 03/18/17 08:42 INR 0.9 (<1.1) 03/18/17 08:42 Abnormal lab findings: Abnormal Labs 03/18/17 03/18/17 03/18/17 08:05 08:42 08:42 WBC 12.1 H Hct 47.2 H MCV 101.0 H Plt Count 477 H D Neutrophils # 8.5 H Plasma Lactic Acid Josep 2.7 H* AST ALT CK-MB (CK-2) 2.6 H* 03/18/17 03/19/17 08:42 10:46 WBC Hct MCV Plt Count Neutrophils # Plasma Lactic Acid Josep 6.5 H* AST 48 H ALT 111 H CK-MB (CK-2) - Diagnostic Findings Chest x-ray: image reviewed Assessment and Plan Plan: Assessment 1 acute COPD exacerbation with secondary shortness of breath. Suspect a right lower lobe pneumonia 2 recurrent hospital physician for COPD exacerbation 3 history of inflammatory bowel disease/Crohn's disease maintained on Humira on outpatient basis which is currently on hold 4 chronic suppression secondary to intake of Humira and this medication is currently on hold 5 fibromyalgia 6 diabetic ileostomy 7 osteoporosis 8 degenerative arthritis 9. Hernia 10 seasonal ALLERGIES 11 smoker Plan Cover the patient with IV Zosyn. Put the patient on a combination of Perforomist and Pulmicort neb last treatment twice a day. DuoNeb nebulized treatments 4 times a day. IV Solu Medrol 60 mg every 6 hours. Tussionex for cough. Sputum Gram stain and culture. Outpatient medications include Breo and Tudorza. We'll continue to follow.
[2017-03-19] MEDS: ALPRAZolam 0.5 MG TAB PO PRN ×2 (15:05→22:37)
[2017-03-19 17:00] LABS: Glucose,Whole Blood 130 mg/dL (75-99)
[2017-03-19] MEDS: BENZONATATE 100 MG CAP PO PRN (17:20)
[2017-03-19] MEDS: SODIUM CHLORIDE 0.9% 1,000 ML IV SCH (17:24)
--- NOTE | 2017-03-19 18:28 | PN ---
DATE OF SERVICE: 03/19/2017 PRESENTING COMPLAINT: Shortness of breath, coughing. INTERVAL HISTORY: This is a patient who presented with an acute COPD exacerbation. Today patient is very short of breath, coughing with a great deal of frequency and when she coughs her oxygen saturation goes down to 80 or less. Patient looks anxious. Increased work of breathing. Some accessory muscle use noted. Review of systems done for constitutional, cardiovascular, GI, pulmonary, with relevant findings as above. CURRENT MEDICATIONS: DuoNeb q.4 hours, Xanax 0.5 p.o. t.i.d., Tessalon Perles 200 mg p.o. t.i.d., Pulmicort 0.5 inhalations b.i.d., Perforomist 20 micrograms b.i.d. Solu-Medrol 60 mg IV q.6 hours, nicotine patch 21 mg daily, Zosyn 3.375 grams IV piggyback q.8h. VITAL SIGNS: Temperature 97.8, pulse 120, respiratory rate 24, blood pressure 125/77, oxygen saturation 98% on 3 liters nasal cannula. GENERAL APPEARANCE: Patient is anxious-appearing, really working to breathe. EYES: Pupils equal. Conjunctivae normal. NECK: JVD not raised. Mass not palpable. LUNGS: Sounds diminished in all lung hunter. Prolonged expiration, wheezing, expiratory crackles. CARDIOVASCULAR: First and second sounds normal. No edema. ABDOMEN: Soft, nontender. Liver and spleen not palpable. Patient has an ileostomy bag in place. PSYCHIATRY: Alert and oriented x3. Mood and affect anxious -appearing. INVESTIGATIONS: Blood glucose 130. Chest x-ray mild developing right lower lobe infiltrate. Minimal left pleural effusion. ASSESSMENT: 1. Acute severe chronic obstructive pulmonary disease exacerbation in a patient who is an ex-smoker, worsening. 2. Gastroesophageal reflux disease. 3. Primary osteoarthritis of multiple joints. 4. Chronic Crohn's disease ulcerative colitis leading to an ileostomy following a total colectomy. 5. Hiatal hernia. 6. Osteoporosis. 7. Anxiety, not otherwise specified. PLAN: Patient will continue on nebulized bronchodilators, IV steroids. Mucinex added. Pulmonology consult. We will continue the current medication and treatment plan with the addition of Perforomist and Pulmicort nebulized treatments twice daily. Tussionex for cough. Will send sputum for Gram stain and culture. Will follow. Patient was seen and examined by nurse practitioner, Mitzi Hawthorne, and all elements of the case discussed with Dr. Austin. I performed a history and physical examination of this patient and discussed the same with the dictator. I agree with the dictator's note. Any additional findings/opinions, etc. will be noted.
[2017-03-19] MEDS ORDERED: BUDESONIDE 0.5 MG/2 ML NEBU INHALATION SCH (20:00)
[2017-03-19] MEDS: FORMOTEROL FUMARATE 20 MCG/2 ML NEBU INHALATION SCH (20:07)
[2017-03-19] MEDS: CHLORPHEN-HYDROcod 8-10mg/5ml 5 ML ORAL.SYRG PO SCH (20:45)
[2017-03-19 21:27] LABS: Glucose,Whole Blood 148 mg/dL (75-99)
[2017-03-20 00:14] LABS: Basophils % (A) 0 %; CH 32.5; CHCM 31.7; Eosinophils % (A) 0 %; HCT 36.8 % (34.0-46.0); HDW 2.61; Luc # (Auto) 0.07; Luc % (Auto) 1; Lymphocytes # (A) 0.6 k/uL (1.0-4.8); Lymphocytes % (A) 4 %; MCH 33.3 pg (25.0-35.0); MCHC 32.3 g/dL (31.0-37.0); MCV 103.3 fL (80.0-100.0); Macrocytosis Slight; Mean Platelet Volume 6.7; Monocytes # (A) 0.4 k/uL (0-1.0); Monocytes % (A) 3 %; Neutrophils # (A) 12.4 k/uL (1.3-7.7); Neutrophils % (A) 92 %; RBC 3.56 m/uL (3.80-5.40); WBC 13.5 k/uL (3.8-10.6); WBC (Perox) 13.87
[2017-03-20 00:15] LABS: HGB 11.9 gm/dL (11.4-16.0)
[2017-03-20 00:29] LABS: Anion Gap 7 mmol/L; Blood Urea Nitrogen 19 mg/dL (7-17); Calcium 7.9 mg/dL (8.4-10.2); Carbon Dioxide 26 mmol/L (22-30); Chloride 106 mmol/L (98-107); Glucose 169 mg/dL (74-99); Non-African American GFR(MDRD) >60 (>60 ml/min/1.73 sqM); Potassium 3.9 mmol/L (3.5-5.1); Sodium 139 mmol/L (137-145)
[2017-03-20] MEDS: IPRATROPIUM-ALBUTEROL 3 ML NEB INHALATION SCH ×5 (03:42→19:55)
[2017-03-20] MEDS: NICOTINE 21MG/24HR PATCH TRANSDERM SCH (07:01)
[2017-03-20] MEDS: methylPREDNISolone SOD SUCCI 125 MG/2 ML VIAL IV SCH ×3 (07:02→17:29)
[2017-03-20 07:07] LABS: Glucose,Whole Blood 127 mg/dL (75-99)
--- NOTE | 2017-03-20 08:33 | PN ---
DATE OF SERVICE: 03/19/2017 ATTENDING NOTE: This patient was seen and examined by me yesterday. I reviewed the note of my nurse practitioner, Ms. Hawthorne and discussed with her. Patient presents with severe COPD exacerbation. This morning quite a bit short of breath. Coughing, not being up much sputum, short of breath at rest. On examination, pulse 120, respiration 24, blood pressure 120/77. GENERAL APPEARANCE: Sitting up, short of breath at rest. LUNGS: Diminished breath sounds. Prolonged expiration, wheezing. CARDIOVASCULAR: First and second sounds normal. No edema. PSYCH: Anxious -appearing. INVESTIGATIONS: White count 13.5. Accu-Cheks noted. Chest x-ray possible infiltrate. ASSESSMENT: 1. Acute severe chronic obstructive pulmonary disease exacerbation in a patient who is ex-smoker, worsening. 2. Right lobe pneumonia, suspect gram-negative organism, present on admission. 3. Ileostomy bag in place. PLAN: Continue with high-dose steroids, nebulized bronchodilators. Mucinex and steroids. Follow with Pulmonary.
[2017-03-20] MEDS: FORMOTEROL FUMARATE 20 MCG/2 ML NEBU INHALATION SCH ×2 (08:44→19:55)
[2017-03-20] MEDS: ENOXAPARIN 40 MG/0.4 ML SYRINGE SQ SCH (08:45)
[2017-03-20] MEDS: FLUCONAZOLE 100 MG TAB PO SCH ×2 (08:45→20:48)
[2017-03-20] MEDS: MULTIVITAMINS, THERA 1 EACH TAB PO SCH (08:45)
[2017-03-20] MEDS: MERCAPTOPURINE 50 MG TAB PO SCH ×2 (08:45→20:48)
[2017-03-20] MEDS: guaiFENesin 600 MG TABLET.ER PO SCH ×2 (08:46→20:47)
[2017-03-20] MEDS: OPIUM PO SCH ×4 (08:54→22:43)
[2017-03-20] MEDS: CHLORPHEN-HYDROcod 8-10mg/5ml 5 ML ORAL.SYRG PO SCH ×2 (08:54→22:42)
[2017-03-20] MEDS: PIPERACILLIN-TAZOBACTAM 3.375 GM in DEXTROSE/WATER 1 50ML.BAG IVPB SCH ×2 (08:55→15:35)
[2017-03-20] MEDS: Acetaminophen-Codeine 300-30mg TAB PO SCH ×3 (08:55→20:46)
[2017-03-20] MEDS: ALPRAZolam 0.5 MG TAB PO PRN ×3 (09:11→22:42)
[2017-03-20 09:54] LABS: CH 32.5; CHCM 31.3; HCT 37.7 % (34.0-46.0); HDW 2.62; HGB 11.9 gm/dL (11.4-16.0); Hypochromasia Slight; MCH 33.2 pg (25.0-35.0); MCHC 31.7 g/dL (31.0-37.0); MCV 104.7 fL (80.0-100.0); Macrocytosis Moderate; Mean Platelet Volume 7.2; RDW 14.9 % (11.5-15.5); WBC 14.9 k/uL (3.8-10.6)
--- NOTE | 2017-03-20 10:53 | P.PN ---
Subjective Principal diagnosis: Acute right lower lobe pneumonia and acute exacerbation of COPD This is a 56-year-old female admitted on 03/18/2017, patient was admitted with symptoms of shortness of breath cough and wheezing, her baseline FEV1 is no more than 36%, patient was recently seen in my office, and I have recommended antibiotics in the form of Levaquin, and I have increased her maintenance dose of prednisone. However the patient did not improve much, and over the weekend she was admitted with right lower lobe pneumonia and acute exacerbation of COPD. Patient was seen by Dr. Mistry on consultation, placed on multiple bronchodilators, antibiotics, continues to cough and wheeze today. Patient is afebrile. Basic metabolic profile is normal. Lactic acid on admission was 3.6 , however it is 2.8 today. Patient did receive fluid boluses on admission. Presently on antibiotics in the form of Zosyn, and she is also on Diflucan. I went ahead and added Levaquin today. On outpatient basis the patient had only 2 days of Levaquin prior to her admission. Objective - Vital Signs Vital signs: Vital Signs Temp 97.4 F L 03/20/17 08:00 Pulse 103 H 03/20/17 08:57 Resp 18 03/20/17 08:00 BP 119/84 03/20/17 08:00 Pulse Ox 95 03/20/17 08:46 Intake & Output 03/19/17 03/20/17 03/20/17 18:59 06:59 18:59 Intake Total 1100 850 100 Output Total 1350 300 Balance 1100 -500 -200 Weight 46.4 kg Intake: Intake, IV Titration 700 850 Amount Piperacillin-Tazobactam 3 100 50 .375 gm In Dextrose/Water 1 50ml.bag @ 12.5 mls/hr IVPB Q8HR [facility] Rx#: [id number] Sodium Chloride 0.9% 1, 600 800 000 ml @ 50 mls/hr IV . Q20H [facility] Rx#:[id number] Oral 400 100 Output: Urine 1350 300 Other: Voiding Method Incontinent Bedside Commode Bedside Commode # Voids 3 2 1 # Bowel Movements 1 - Exam Physical Exam: Revealed a 56-year-old female in no distress. However noted to have intermittent episodes of cough and wheezing upon my examination. HEENT:[Neck is supple.] [No neck masses.] [No thyromegaly.] [No JVD.] Chest: [Crackles and rhonchi and wheezes noted bilaterally more so on the right base..] Cardiac Exam: [Normal S1 and S2, no S3 gallop, no murmur.] Abdomen: [Soft, nontender, no megaly, no rebound, no guarding, normal bowel sounds.] Extremities: [No clubbing, no edema, no cyanosis.] Neurological Exam: [No focal neurologic deficit.] - Labs CBC & Chem 7: 03/20/17 06:44 03/19/17 23:57 Labs: Abnormal Lab Results - Last 24 Hours (Table) 03/19/17 03/19/17 03/19/17 Range/Units 10:46 16:33 16:58 WBC (3.8-10.6) k/uL RBC (3.80-5.40) m/uL MCV (80.0-100.0) fL Neutrophils # (1.3-7.7) k/uL Lymphocytes # (1.0-4.8) k/uL BUN (7-17) mg/dL Glucose (74-99) mg/dL POC Glucose (mg/dL) 130 H (75-99) mg/dL Plasma Lactic Acid Josep 6.5 H* 2.9 H* (0.7-2.0) mmol/L Calcium (8.4-10.2) mg/dL 03/19/17 03/19/17 03/19/17 Range/Units 21:05 22:27 23:57 WBC 13.5 H (3.8-10.6) k/uL RBC 3.56 L (3.80-5.40) m/uL MCV 103.3 H (80.0-100.0) fL Neutrophils # 12.4 H (1.3-7.7) k/uL Lymphocytes # 0.6 L (1.0-4.8) k/uL BUN (7-17) mg/dL Glucose (74-99) mg/dL POC Glucose (mg/dL) 148 H (75-99) mg/dL Plasma Lactic Acid Josep 3.6 H* (0.7-2.0) mmol/L Calcium (8.4-10.2) mg/dL 03/19/17 03/20/17 03/20/17 Range/Units 23:57 06:44 06:44 WBC 14.9 H (3.8-10.6) k/uL RBC 3.60 L (3.80-5.40) m/uL MCV 104.7 H (80.0-100.0) fL Neutrophils # (1.3-7.7) k/uL Lymphocytes # (1.0-4.8) k/uL BUN 19 H (7-17) mg/dL Glucose 169 H (74-99) mg/dL POC Glucose (mg/dL) (75-99) mg/dL Plasma Lactic Acid Josep 2.8 H* (0.7-2.0) mmol/L Calcium 7.9 L (8.4-10.2) mg/dL 03/20/17 Range/Units 06:45 WBC (3.8-10.6) k/uL RBC (3.80-5.40) m/uL MCV (80.0-100.0) fL Neutrophils # (1.3-7.7) k/uL Lymphocytes # (1.0-4.8) k/uL BUN (7-17) mg/dL Glucose (74-99) mg/dL POC Glucose (mg/dL) 127 H (75-99) mg/dL Plasma Lactic Acid Josep (0.7-2.0) mmol/L Calcium (8.4-10.2) mg/dL Microbiology - Last 24 Hours (Table) 03/18/17 08:42 Blood Culture - Preliminary Blood No Growth after 24 hours Assessment and Plan Plan: 1 acute COPD exacerbation with secondary shortness of breath. 2 recurrent hospital physician for COPD exacerbation 3 history of inflammatory bowel disease/Crohn's disease maintained on Humira on outpatient basis which is currently on hold 4 chronic suppression secondary to intake of Humira and this medication is currently on hold 5 fibromyalgia 6 history of ileostomy. 7 osteoporosis 8 degenerative arthritis 9. Hernia 10 seasonal ALLERGIES 11 smoker 12 acute right lower lobe pneumonia, community-acquired, probably gram-negative in nature, knowing the patient has severe COPD. Recommendation: Continue present course of bronchodilators, antibiotics including Levaquin and Zosyn, not ready for any discharge planning at this point. Time with Patient: Less than 30
[2017-03-20 11:07] LABS: Anion Gap 7 mmol/L; Blood Urea Nitrogen 17 mg/dL (7-17); Calcium 7.8 mg/dL (8.4-10.2); Carbon Dioxide 27 mmol/L (22-30); Chloride 106 mmol/L (98-107); Glucose 132 mg/dL (74-99); Non-African American GFR(MDRD) >60 (>60 ml/min/1.73 sqM); Potassium 4.1 mmol/L (3.5-5.1); Sodium 140 mmol/L (137-145)
--- NOTE | 2017-03-20 11:19 | PN ---
DATE OF SERVICE: 03/20/2017 PRESENTING COMPLAINT: Shortness of breath, coughing. INTERVAL HISTORY: This is a patient who presented with an acute COPD exacerbation. Today the patient remains short of breath with very coarse cough and it is the coughing that keeps her from performing activity as it takes her a very long time to recover. The patient remains anxious-appearing. Patient has some accessory muscle use as well as increased work of breathing. Review of systems done for constitutional, cardiovascular, GI, pulmonary, with relevant findings as above. CURRENT MEDICATIONS: DuoNeb q.4 hours, Xanax 0.5 p.o. t.i.d., Tessalon Perles 200 mg p.o. t.i.d., Pulmicort 0.5 mg inhalation, Solu-Medrol 60 mg IV q.6 hours, nicotine patch 21 mg daily, Zosyn 3.375 gm IV piggyback q.8 hours. VITAL SIGNS: Temperature 97.4, pulse 103, respiratory rate 18, blood pressure 119/84, oxygen saturation 100% on 3 L nasal cannula. GENERAL APPEARANCE: Patient sitting at the bedside, anxious-appearing, pursed lip breathing. EYES: Pupils equal. Conjunctivae are normal. NECK: JVD not raised. Mass not palpable. LUNGS: Diminished bases bilaterally, expiratory wheezing. RESPIRATORY: Effort labored. CARDIOVASCULAR: First and second sounds noted. No edema. ABDOMEN: Soft, nontender. Liver and spleen not palpable. PSYCHIATRY: Alert and oriented x3. Mood and affect anxious. INVESTIGATIONS: White blood cell count 14.9, hemoglobin 11.9, platelet count 354. Blood glucose 127. Lactic acid 2.8. ASSESSMENT: 1. Acute severe chronic obstructive pulmonary disease exacerbation in a patient who is an ex-smoker, worsening. 2. Right lower lobe pneumonia, suspect gram-negative organism, present on admission. 3. Gastroesophageal reflux disease. 4. Primary osteoarthritis of multiple joints. 5. Chronic Crohn's disease, ulcerative colitis leading to an ileostomy following a total colectomy, ileostomy in place. 6. Hiatal hernia. 7. Osteoporosis. 8. Anxiety, not otherwise specified. PLAN: Patient will be continued on nebulized bronchodilators, IV steroids, Mucinex. Pulmonology also added Tessalon Perles for the cough, as well as Tussionex. They discontinued Perforomist as patient had a reaction to this particular medication. Awaiting Gram stain and culture for sputum. Will continue to follow. Patient was seen and examined by nurse practitioner, Mitzi Hawthorne, and all elements of the case discussed with Dr. Austin.
[2017-03-20 12:07] LABS: Glucose,Whole Blood 135 mg/dL (75-99)
[2017-03-20] MEDS: ONDANSETRON 4 MG/2 ML VIAL IVP PRN ×2 (13:17→20:42)
[2017-03-20] MEDS: LEVOFLOXACIN 500 MG TAB PO SCH (13:36)
[2017-03-20] MEDS: SODIUM CHLORIDE 0.9% 1,000 ML IV SCH (13:37)
[2017-03-20 16:34] LABS: Glucose,Whole Blood 144 mg/dL (75-99)
[2017-03-20] MEDS: BENZONATATE 100 MG CAP PO PRN (17:28)
[2017-03-20 20:56] LABS: Glucose,Whole Blood 187 mg/dL (75-99)
[2017-03-20] MEDS: ZOLPIDEM 5 MG TAB PO PRN (22:41)
--- NOTE | 2017-03-20 23:59 | PN ---
DATE OF SERVICE: 03/20/2017 ATTENDING NOTE: This patient was seen examined by me earlier today. I reviewed the note of my nurse practitioner, Ms. Hawthorne, and discussed with her. Patient was having bouts of coughing earlier today; feeling a bit more settled down, though still short of breath. Did tolerate some diet. On examination, blood pressure 109/84, pulse ox 100% on 3 L. GENERAL APPEARANCE: Sitting up on the bed. Anxious-appearing. LUNGS: Diminished breath sounds. Prolonged expiration, decreased from yesterday. CARDIOVASCULAR: First and second sounds normal. PSYCHIATRIC: Anxious-appearing. INVESTIGATIONS: White count 14.9. Potassium 4.1. Accu-Cheks are noted. ASSESSMENT: 1. Acute severe chronic obstructive pulmonary disease exacerbation in a patient who is an ex-smoker, slow to respond. 2. Right lobe pneumonia; suspect Gram-negative organism. Present on admission. 3. Anxiety. PLAN: Continue current medication and treatment plan, including steroids and bronchodilators. Care was discussed with the patient. Will follow.
[2017-03-21] MEDS: methylPREDNISolone SOD SUCCI 125 MG/2 ML VIAL IV SCH ×3 (00:24→13:31)
[2017-03-21] MEDS: IPRATROPIUM-ALBUTEROL 3 ML NEB INHALATION SCH ×5 (00:36→19:32)
[2017-03-21 06:05] LABS: Glucose,Whole Blood 173 mg/dL (75-99)
[2017-03-21 06:51] LABS: CH 32.4; CHCM 31.2; HCT 38.1 % (34.0-46.0); Hypochromasia Slight; MCHC 31.5 g/dL (31.0-37.0); MCV 104.6 fL (80.0-100.0); Macrocytosis Moderate; Mean Platelet Volume 6.8; RBC 3.64 m/uL (3.80-5.40); RDW 14.9 % (11.5-15.5)
[2017-03-21 07:36] LABS: Anion Gap 6 mmol/L; Blood Urea Nitrogen 28 mg/dL (7-17); Calcium 8.2 mg/dL (8.4-10.2); Carbon Dioxide 27 mmol/L (22-30); Chloride 106 mmol/L (98-107); Glucose 182 mg/dL (74-99); Non-African American GFR(MDRD) >60 (>60 ml/min/1.73 sqM); Potassium 4.6 mmol/L (3.5-5.1); Sodium 139 mmol/L (137-145)
[2017-03-21] MEDS: FORMOTEROL FUMARATE 20 MCG/2 ML NEBU INHALATION SCH ×2 (08:24→19:32)
[2017-03-21] MEDS: PIPERACILLIN-TAZOBACTAM 3.375 GM in DEXTROSE/WATER 1 50ML.BAG IVPB SCH ×3 (08:55→15:12)
[2017-03-21] MEDS: OPIUM PO SCH ×4 (08:56→22:21)
[2017-03-21] MEDS: ALPRAZolam 0.5 MG TAB PO PRN ×4 (08:56→22:21)
[2017-03-21] MEDS: CHLORPHEN-HYDROcod 8-10mg/5ml 5 ML ORAL.SYRG PO SCH ×2 (08:56→21:30)
[2017-03-21] MEDS: Acetaminophen-Codeine 300-30mg TAB PO SCH ×3 (08:56→21:10)
[2017-03-21] MEDS: guaiFENesin 600 MG TABLET.ER PO SCH ×2 (08:57→22:13)
[2017-03-21] MEDS: ENOXAPARIN 40 MG/0.4 ML SYRINGE SQ SCH (08:57)
[2017-03-21] MEDS: MERCAPTOPURINE 50 MG TAB PO SCH ×2 (08:57→22:14)
[2017-03-21] MEDS: MULTIVITAMINS, THERA 1 EACH TAB PO SCH (08:57)
[2017-03-21] MEDS: FLUCONAZOLE 100 MG TAB PO SCH (08:57)
[2017-03-21] MEDS: NICOTINE 21MG/24HR PATCH TRANSDERM SCH (08:57)
[2017-03-21] MEDS: SODIUM CHLORIDE 0.9% 1,000 ML IV SCH (08:58)
[2017-03-21 11:30] LABS: Glucose,Whole Blood 191 mg/dL (75-99)
[2017-03-21] MEDS: LEVOFLOXACIN 500 MG TAB PO SCH (13:37)
[2017-03-21] MEDS: ONDANSETRON 4 MG/2 ML VIAL IVP PRN (13:43)
--- NOTE | 2017-03-21 14:27 | PN ---
DATE OF SERVICE: 03/21/2017 PRESENTING COMPLAINT: Shortness of breath, coughing. INTERVAL HISTORY: This is a patient who presented with an acute COPD exacerbation, pneumonia. Today, the patient appears much better. She is resting quietly in bed. Breathing is much easier, less labored. However, cough remains, is very coarse and barky, takes her a great deal of time to recover when she begins to cough. The patient remains anxious-appearing. Review of systems done for constitutional, cardiovascular, GI, pulmonary, with relevant findings as above. CURRENT MEDICATIONS: DuoNeb q.4 hours, Xanax 0.5 mg p.o. t.i.d., Tessalon Perles 200 mg p.o. t.i.d., Pulmicort 0.5 mg inhalation, Solu-Medrol 60 mg IV q.6h, nicotine patch 21 mg daily, Zosyn 3.375 mg IV piggyback q.8h., Levaquin 500 mg p.o. q.24 hours. PHYSICAL EXAM: VITAL SIGNS: Temperature 97.3, heart rate 108, respiratory rate 22, blood pressure 133/83, pulse ox 97% on 3 L nasal cannula. GENERAL APPEARANCE: Patient is lying in bed, less distressed, anxious-appearing, breathing is moderately labored. EYES: Pupils equal. Conjunctivae are normal. NECK: JVD not raised. Mass not palpable. LUNGS: Diminished bases bilaterally, expiratory wheezing. RESPIRATORY: Effort labored. Strong barky cough. CARDIOVASCULAR: First and second sounds noted. No edema. ABDOMEN: Soft, nontender. Liver and spleen not palpable. PSYCHIATRY: Alert and oriented x3. Mood and affect are anxious. INVESTIGATIONS: White blood cell count 17.0, hemoglobin 12.0, platelet count 339. Sodium 139, potassium 4.6, BUN 28, creatinine 0.63. Blood glucose 182. Lactic acid 2.6. ASSESSMENT: 1. Acute severe chronic obstructive pulmonary disease exacerbation in a patient who is an ex-smoker, slow to respond. 2. Right lower lobe pneumonia, suspect gram-negative organism, present on admission, slow to respond. 3. Gastroesophageal reflux disease, controlled. 4. Primary osteoarthritis of multiple joints. 5. Chronic Crohn's disease, ulcerative colitis leading to an ileostomy following a total colectomy, ileostomy in place. 6. Hiatal hernia. 7. Osteoporosis. 8. Anxiety, not otherwise specified. Patient will be continued on nebulized bronchodilators, IV steroids, Mucinex and Zosyn and Levaquin. Pulmonology feels that patient is not ready for any type of discharge planning at this time and did add the Levaquin today. Awaiting Gram stain and culture for sputum. Will continue to follow. Patient was seen and examined by nurse practitioner, Mitzi Hawthorne, and all elements of the case discussed with Dr. Austin.
[2017-03-21] MEDS: BENZONATATE 100 MG CAP PO PRN (14:43)
--- NOTE | 2017-03-21 14:53 | P.PN ---
Subjective Principal diagnosis: Acute right lower lobe pneumonia and acute exacerbation of COPD This is a 56-year-old female admitted on 03/18/2017, patient was admitted with symptoms of shortness of breath cough and wheezing, her baseline FEV1 is no more than 36%, patient was recently seen in my office, and I have recommended antibiotics in the form of Levaquin, and I have increased her maintenance dose of prednisone. However the patient did not improve much, and over the weekend she was admitted with right lower lobe pneumonia and acute exacerbation of COPD. Patient was seen by Dr. Mistry on consultation, placed on multiple bronchodilators, antibiotics, continues to cough and wheeze today. Patient is afebrile. Basic metabolic profile is normal. Lactic acid on admission was 3.6 , however it is 2.8 today. Patient did receive fluid boluses on admission. Presently on antibiotics in the form of Zosyn, and she is also on Diflucan. I went ahead and added Levaquin today. On outpatient basis the patient had only 2 days of Levaquin prior to her admission. Patient was reevaluated today on 03/21/2017, feeling better, breathing easier, still resting in bed, nonambulatory. Has shortness of breath with any activity. But overall pulmonary findings are significantly improved compared to findings on yesterday's examination. Her WBC count today remains elevated at 17.0, hemoglobin is 12. Electrolytesenc normal and renal profile is normal. Lactic acid remains borderline elevated. Last chest x-ray on the showed evidence of a limited infiltrate in the right lower lobe. Objective - Vital Signs Vital signs: Vital Signs Temp 97.6 F 03/21/17 11:20 Pulse 108 H 03/21/17 11:34 Resp 18 03/21/17 11:21 BP 108/67 03/21/17 11:20 Pulse Ox 99 03/21/17 11:20 Intake & Output 03/20/17 03/21/17 03/21/17 18:59 06:59 18:59 Intake Total 1600 600 960 Output Total 625 325 Balance 975 275 960 Weight 46.4 kg Intake: Intake, IV Titration 700 450 Amount Piperacillin-Tazobactam 3 100 .375 gm In Dextrose/Water 1 50ml.bag @ 12.5 mls/hr IVPB Q8HR [facility] Rx#: [id number] Sodium Chloride 0.9% 1, 600 450 000 ml @ 50 mls/hr IV . Q20H [facility] Rx#:[id number] Oral 900 150 960 Output: Urine 625 325 Other: Voiding Method Bedside Commode Toilet Toilet Bedside Commode Bedside Commode # Voids 1 2 1 # Bowel Movements 2 - Exam Physical Exam: Revealed a 56-year-old female in no distress. However noted to have intermittent episodes of cough and wheezing upon my examination. HEENT:[Neck is supple.] [No neck masses.] [No thyromegaly.] [No JVD.] Chest: [Diminished breath sound bilaterally, no crackles or rhonchi or wheezes.. ] Cardiac Exam: [Normal S1 and S2, no S3 gallop, no murmur.] Abdomen: [Soft, nontender, no megaly, no rebound, no guarding, normal bowel sounds.] Extremities: [No clubbing, no edema, no cyanosis.] Neurological Exam: [No focal neurologic deficit.] - Labs CBC & Chem 7: 03/21/17 05:47 03/21/17 05:47 Labs: Abnormal Lab Results - Last 24 Hours (Table) 03/20/17 03/20/17 03/20/17 Range/Units 16:30 17:09 20:54 WBC (3.8-10.6) k/uL RBC (3.80-5.40) m/uL MCV (80.0-100.0) fL BUN (7-17) mg/dL Glucose (74-99) mg/dL POC Glucose (mg/dL) 144 H 187 H (75-99) mg/dL Plasma Lactic Acid Josep 2.1 H (0.7-2.0) mmol/L Calcium (8.4-10.2) mg/dL 03/20/17 03/21/17 03/21/17 Range/Units 23:59 05:47 05:47 WBC 17.0 H (3.8-10.6) k/uL RBC 3.64 L (3.80-5.40) m/uL MCV 104.6 H (80.0-100.0) fL BUN 28 H (7-17) mg/dL Glucose 182 H (74-99) mg/dL POC Glucose (mg/dL) (75-99) mg/dL Plasma Lactic Acid Josep 2.4 H* (0.7-2.0) mmol/L Calcium 8.2 L (8.4-10.2) mg/dL 03/21/17 03/21/17 03/21/17 Range/Units 05:49 06:01 11:23 WBC (3.8-10.6) k/uL RBC (3.80-5.40) m/uL MCV (80.0-100.0) fL BUN (7-17) mg/dL Glucose (74-99) mg/dL POC Glucose (mg/dL) 173 H 191 H (75-99) mg/dL Plasma Lactic Acid Josep 2.5 H* (0.7-2.0) mmol/L Calcium (8.4-10.2) mg/dL 03/21/17 Range/Units 12:06 WBC (3.8-10.6) k/uL RBC (3.80-5.40) m/uL MCV (80.0-100.0) fL BUN (7-17) mg/dL Glucose (74-99) mg/dL POC Glucose (mg/dL) (75-99) mg/dL Plasma Lactic Acid Josep 2.6 H* (0.7-2.0) mmol/L Calcium (8.4-10.2) mg/dL Microbiology - Last 24 Hours (Table) 03/18/17 08:42 Blood Culture - Preliminary Blood No Growth after 72 hours Assessment and Plan Plan: 1 acute COPD exacerbation with secondary shortness of breath. 2 recurrent COPD exacerbation 3 history of inflammatory bowel disease/Crohn's disease maintained on Humira on outpatient basis which is currently on hold 4 chronic suppression secondary to intake of Humira and this medication is currently on hold 5 fibromyalgia 6 history of ileostomy. 7 osteoporosis 8 degenerative arthritis 9. Hernia 10 seasonal ALLERGIES 11 smoker 12 acute right lower lobe pneumonia, community-acquired, probably gram-negative in nature, knowing the patient has severe COPD. Recommendation: Continue present course of bronchodilators, antibiotics including Levaquin and Zosyn, not ready for any discharge planning at this point.. Plan to ambulate the patient today, repeat chest x-ray in a.m., and if not any worse, consider discharge planning in the next 24 hours. Time with Patient: Less than 30
[2017-03-21 16:29] LABS: Glucose,Whole Blood 133 mg/dL (75-99)
[2017-03-21 21:01] LABS: Glucose,Whole Blood 135 mg/dL (75-99)
--- NOTE | 2017-03-21 21:45 | PN ---
DATE OF SERVICE: 03/21/2017 ATTENDING NOTE: This patient was seen and examined by me earlier today. I reviewed the note of my nurse practitioner Ms. Hawthorne, agreed and discussed with her. Patient's breathing is better. She is up in the hallway. Coughing is actually getting better. On examination, blood pressure 133/83, pulse ox 97% on 3 L. LUNGS: Diminished breath sounds. Decreased wheezing. Anxiety is actually improved. No edema. White count 17. Potassium 4.6. Accu-Cheks are noted. ASSESSMENT: 1. Acute chronic obstructive pulmonary disease exacerbation in a patient who is an ex-smoker, improving. 2. Right lower lobe pneumonia, present on admission, improving. 3. Ileostomy in place. PLAN: Patient does have IV Solu-Medrol. Will cut it back to 40 q.12. Will discontinue the Zosyn. Overall doing much better. Cut back the dose of Diflucan.
[2017-03-21] MEDS: methylPREDNISolone SOD SUCCI 40 MG/ML 1 ML VIAL IV SCH (22:00)
[2017-03-21] MEDS: ZOLPIDEM 5 MG TAB PO PRN (22:13)
[2017-03-22 05:50] LABS: Glucose,Whole Blood 121 mg/dL (75-99)
[2017-03-22 06:12] LABS: CH 32.8; CHCM 31.1; HCT 37.7 % (34.0-46.0); HGB 11.9 gm/dL (11.4-16.0); Hypochromasia Slight; MCH 33.5 pg (25.0-35.0); MCHC 31.6 g/dL (31.0-37.0); MCV 106.2 fL (80.0-100.0); Macrocytosis Moderate; Mean Platelet Volume 6.8; RBC 3.55 m/uL (3.80-5.40); RDW 14.8 % (11.5-15.5); WBC 16.8 k/uL (3.8-10.6)
[2017-03-22 06:16] LABS: Anion Gap 4 mmol/L; Blood Urea Nitrogen 25 mg/dL (7-17); Calcium 8.4 mg/dL (8.4-10.2); Carbon Dioxide 31 mmol/L (22-30); Chloride 105 mmol/L (98-107); Glucose 119 mg/dL (74-99); Non-African American GFR(MDRD) >60 (>60 ml/min/1.73 sqM); Potassium 4.7 mmol/L (3.5-5.1); Sodium 140 mmol/L (137-145)
[2017-03-22] MEDS: SODIUM CHLORIDE 0.9% 1,000 ML IV SCH (06:19)
[2017-03-22] MEDS: ENOXAPARIN 40 MG/0.4 ML SYRINGE SQ SCH (08:20)
[2017-03-22] MEDS: CHLORPHEN-HYDROcod 8-10mg/5ml 5 ML ORAL.SYRG PO SCH (08:21)
[2017-03-22] MEDS: Acetaminophen-Codeine 300-30mg TAB PO SCH (08:21)
[2017-03-22] MEDS: guaiFENesin 600 MG TABLET.ER PO SCH (08:22)
[2017-03-22] MEDS: methylPREDNISolone SOD SUCCI 40 MG/ML 1 ML VIAL IV SCH (08:22)
[2017-03-22] MEDS: MERCAPTOPURINE 50 MG TAB PO SCH (08:22)
[2017-03-22] MEDS: NICOTINE 21MG/24HR PATCH TRANSDERM SCH (08:23)
[2017-03-22] MEDS: IPRATROPIUM-ALBUTEROL 3 ML NEB INHALATION SCH ×2 (08:30→12:12)
[2017-03-22] MEDS: FORMOTEROL FUMARATE 20 MCG/2 ML NEBU INHALATION SCH (08:34)
[2017-03-22 08:41] VITALS: RESP 24
[2017-03-22] MEDS ORDERED: FLUCONAZOLE 100 MG TAB PO SCH (09:00)
--- NOTE | 2017-03-22 09:07 | XR ---
EXAMINATION TYPE: XR chest 1V DATE OF EXAM: 03/22/2017 9:02 AM HISTORY: rll pneumonia. REFERENCE: Previous study dated 03/19/2017. FINDINGS: There has been partial clearing of the patient's right lower lobe infiltrate. The left lung remains clear. The lungs are overinflated. The heart is not enlarged. Pleural spaces appear clear. IMPRESSION: 1. COPD. 2. IMPROVING RIGHT LOWER LOBE PNEUMONIA.
[2017-03-22] MEDS: OPIUM PO SCH (10:03)
--- NOTE | 2017-03-22 11:15 | P.PN ---
Subjective Principal diagnosis: Acute right lower lobe pneumonia and acute exacerbation of COPD This is a 56-year-old female admitted on 03/18/2017, patient was admitted with symptoms of shortness of breath cough and wheezing, her baseline FEV1 is no more than 36%, patient was recently seen in my office, and I have recommended antibiotics in the form of Levaquin, and I have increased her maintenance dose of prednisone. However the patient did not improve much, and over the weekend she was admitted with right lower lobe pneumonia and acute exacerbation of COPD. Patient was seen by Dr. Mistry on consultation, placed on multiple bronchodilators, antibiotics, continues to cough and wheeze today. Patient is afebrile. Basic metabolic profile is normal. Lactic acid on admission was 3.6 , however it is 2.8 today. Patient did receive fluid boluses on admission. Presently on antibiotics in the form of Zosyn, and she is also on Diflucan. I went ahead and added Levaquin today. On outpatient basis the patient had only 2 days of Levaquin prior to her admission. Patient was reevaluated today on 03/21/2017, feeling better, breathing easier, still resting in bed, nonambulatory. Has shortness of breath with any activity. But overall pulmonary findings are significantly improved compared to findings on yesterday's examination. Her WBC count today remains elevated at 17.0, hemoglobin is 12. Electrolytes normal and renal profile is normal. Lactic acid remains borderline elevated. Last chest x-ray on the showed evidence of a limited infiltrate in the right lower lobe. Patient was reevaluated today on 03/22/2017, continues to gradually improve, breathing a lot easier, less cough and less wheezing less shortness of breath. Chest x-ray showed significant improvement in the right lower lobe infiltrate/ pneumonia. Patient has a bit of leukocytosis, however she is on steroids, she has a relatively normal basic metabolic profile. Chest x-ray was reviewed today , and discussed with the patient. Blood cultures have been negative although lung. Objective - Vital Signs Vital signs: Vital Signs Temp 97.6 F 03/22/17 08:23 Pulse 88 03/22/17 08:46 Resp 24 03/22/17 08:23 BP 138/78 03/22/17 08:23 Pulse Ox 94 L 03/22/17 08:23 Intake & Output 03/21/17 03/22/1717 18:59 06:59 18:59 Intake Total 1500 180 Balance 1500 180 Weight 48.9 kg Intake: Oral 1500 180 Other: Voiding Method Toilet Toilet Toilet Bedside Commode Bedside Commode Bedside Commode # Voids 1 - Exam Physical Exam: Revealed a 56-year-old female in no distress. HEENT:[Neck is supple.] [No neck masses.] [No thyromegaly.] [No JVD.] Chest: [Diminished breath sound bilaterally, no crackles or rhonchi or wheezes.. ] Cardiac Exam: [Normal S1 and S2, no S3 gallop, no murmur.] Abdomen: [Soft, nontender, no megaly, no rebound, no guarding, normal bowel sounds.] Extremities: [No clubbing, no edema, no cyanosis.] Neurological Exam: [No focal neurologic deficit.] - Labs CBC & Chem 7: 03/22/17 05:52 03/22/17 05:52 Labs: Abnormal Lab Results - Last 24 Hours (Table) 03/21/17 03/21/17 03/21/17 Range/Units 11:23 12:06 16:24 WBC (3.8-10.6) k/uL RBC (3.80-5.40) m/uL MCV (80.0-100.0) fL Carbon Dioxide (22-30) mmol/L BUN (7-17) mg/dL Glucose (74-99) mg/dL POC Glucose (mg/dL) 191 H 133 H (75-99) mg/dL Plasma Lactic Acid Josep 2.6 H* (0.7-2.0) mmol/L 03/21/17 03/22/17 03/22/17 Range/Units 20:59 05:48 05:52 WBC 16.8 H (3.8-10.6) k/uL RBC 3.55 L (3.80-5.40) m/uL MCV 106.2 H (80.0-100.0) fL Carbon Dioxide (22-30) mmol/L BUN (7-17) mg/dL Glucose (74-99) mg/dL POC Glucose (mg/dL) 135 H 121 H (75-99) mg/dL Plasma Lactic Acid Josep (0.7-2.0) mmol/L 03/22/17 Range/Units 05:52 WBC (3.8-10.6) k/uL RBC (3.80-5.40) m/uL MCV (80.0-100.0) fL Carbon Dioxide 31 H (22-30) mmol/L BUN 25 H (7-17) mg/dL Glucose 119 H (74-99) mg/dL POC Glucose (mg/dL) (75-99) mg/dL Plasma Lactic Acid Josep (0.7-2.0) mmol/L Microbiology - Last 24 Hours (Table) 03/18/17 08:42 Blood Culture - Preliminary Blood No Growth after 96 hours Assessment and Plan Plan: 1 acute COPD exacerbation with secondary shortness of breath. 2 recurrent COPD exacerbation 3 history of inflammatory bowel disease/Crohn's disease maintained on Humira on outpatient basis which is currently on hold 4 chronic suppression secondary to intake of Humira and this medication is currently on hold 5 fibromyalgia 6 history of ileostomy. 7 osteoporosis 8 degenerative arthritis 9. Hernia 10 seasonal ALLERGIES 11 smoker 12 acute right lower lobe pneumonia, community-acquired, probably gram-negative in nature, knowing the patient has severe COPD., chest x-ray was reviewed today , and I felt based on the chest x-ray findings, based on the clinical history and the clinical findings, patient could be discharged home on prednisone 30 mg daily until reevaluated in our office by Dr. Mistry, and on antibiotics in the form of Levaquin 500 mg daily for 5 more days at least possibly 7 days Recommendation: Agree with discharge planning today, follow-up with Dr. Mistry next week. Prednisone is to remain at 30 mg daily and Levaquin 500 mg daily for 7 days. My recommendation was discussed with the patient, and we will notify the hospitalist about the discharge planning, and the patient will make an appointment in our office to be seen by Dr. Mistry next week. Time with Patient: Less than 30
[2017-03-22 11:24] LABS: Glucose,Whole Blood 118 mg/dL (75-99)
[2017-03-22] MEDS: LEVOFLOXACIN 500 MG TAB PO SCH (11:35)
[2017-03-22] MEDS: MULTIVITAMINS, THERA 1 EACH TAB PO SCH (11:35)
[2017-03-22 12:57] VITALS: BP 144/85; PULSE 116; TEMP 97.5
--- NOTE | 2017-03-23 11:29 | DS ---
DATE OF ADMISSION: 03/18/2017 DATE OF DISCHARGE: 03/22/2017 FINAL DIAGNOSES: 1. Acute severe chronic obstructive pulmonary disease exacerbation in a patient who is an ex-smoker. 2. Right lower lobe pneumonia, suspect gram-negative organism, present on admission. 3. Gastroesophageal reflux disease, controlled. 4. Primary osteoarthritis of multiple joints. 5. Chronic Crohn's disease, ulcerative colitis leading to an ileostomy following a colectomy, ileostomy in place. 6. Hiatal hernia. 7. Osteoporosis. 8. Anxiety, not otherwise specified. Consultation with Dr. Mistry from Pulmonology. HOSPITAL COURSE: This is a patient who presented with an acute exacerbation of COPD, pneumonia. Patient had worsening wheezing, coughing, congestion in her chest, not able to cough or expectorate, as well as being tired and run down. Patient was placed on nebulized bronchodilators, steroids and expectorant. Patient's breathing improved. She was responsive to the breathing treatments and the expectorant as well as the antibiotics. Patient is sitting up in bed comfortably, walking in the hallways, tolerating her diet, oxygen no longer required. Therefore, patient is ready to be discharged. On exam, LUNGS: Fair airway clearance. Positive cough with no sputum production. CARDIOVASCULAR: First and second sounds noted. No edema. DISCHARGE MEDICATIONS: 1. Tudorza Pressair 400 mcg inhalation b.i.d. 2. Humira Pen 40 mg subQ on Monday. 3. Tylenol with Codeine No. 3 one tablet p.o. t.i.d. 4. Calcium carbonate and vitamin D 500 mg 200 units. 5. Os Artur +D 1 tab p.o. b.i.d. 6. Breo Ellipta 1 puff inhalation daily. 7. Multivitamin 1 tab daily. 8. Opium tincture 2 mL p.o. q.i.d. 9. Mercaptopurine 50 mg p.o. b.i.d. 10. Nicotine patch 21 mg over a 24 patch, one patch transdermal daily. 11. ProAir HFA 2 puffs inhalation q.i.d. 12. Prednisone taper see dose as directed. 13. Alprazolam 0.5 mg p.o. t.i.d. p.r.n. 14. Fluconazole 100 mg p.o. daily. 15. Ipratropium- albuterol, DuoNeb q.i.d. 16. Levofloxacin 500 mg p.o. daily. 17. Guaifenesin 1200 mg p.o. q.12h. FOLLOWUP: Patient should follow up with Dr. Scott in [address] Mistry in a week. DISCHARGE TIME: More than 35 minutes spent including discussion. Patient was seen and examined by nurse practitioner, Mitzi Hawthorne, and all the elements of the case discussed with attending, Dr. Austin.
[2017-03-24] MEDS ORDERED: ADALIMUMAB 80 MG/1.6 ML KIT SQ SCH (09:00)
--- NOTE | 2017-03-24 09:30 | DS ---
DATE OF ADMISSION: 03/18/2017 DATE OF DISCHARGE: 03/22/2017 ADDENDUM: This patient was seen and examined by me on 03/22/2017. I reviewed the discharge summary note of my nurse practitioner, Ms. Hawthorne. Agree and discuss the same. Patient admitted with COPD exacerbation, pneumonia. Doing much better at the time of discharge. ON EXAMINATION: LUNGS: Improved air entry. CARDIOVASCULAR: First and second sounds normal. Up and about in the hallway. Pulse oxing well on room air. Anxiety is much better. Care was discussed with the patient. Follow up is arranged. Discharge planning more than 35 minutes.
== END 2017-03-22 14:45 | disposition home or self-care (01) | DRG 190 ==
LOC: EC 08:08 → 4MS4W 10:03 → 6PED 14:40 → 6SEL 03-19 11:37
PROVIDERS: ADMIT Hospitalist; ATTEND Hospitalist
DX: J44.0 Chronic obstructive pulmonary disease with (acute) lower respiratory infection (principal); J15.6 Pneumonia due to other Gram-negative bacteria; K50.90 Crohn's disease, unspecified, without complications; J44.1 Chronic obstructive pulmonary disease with (acute) exacerbation; F41.9 Anxiety disorder, unspecified; K21.9 Gastro-esophageal reflux disease without esophagitis; K44.9 Diaphragmatic hernia without obstruction or gangrene; M81.0 Age-related osteoporosis without current pathological fracture; M19.91 Primary osteoarthritis, unspecified site; R53.83 Other fatigue; R32 Unspecified urinary incontinence; R00.0 Tachycardia, unspecified; M79.7 Fibromyalgia; J30.2 Other seasonal allergic rhinitis; Z82.62 Family history of osteoporosis; Z80.8 Family history of malignant neoplasm of other organs or systems; Z82.5 Family history of asthma and other chronic lower respiratory diseases; Z90.721 Acquired absence of ovaries, unilateral; Z90.79 Acquired absence of other genital organ(s); Z90.710 Acquired absence of both cervix and uterus; Z90.49 Acquired absence of other specified parts of digestive tract; Z87.891 Personal history of nicotine dependence; Z79.2 Long term (current) use of antibiotics; Z79.899 Other long term (current) drug therapy; Z79.51 Long term (current) use of inhaled steroids; Z79.52 Long term (current) use of systemic steroids; Z88.2 Allergy status to sulfonamides; Z88.8 Allergy status to other drugs, medicaments and biological substances; Z88.6 Allergy status to analgesic agent; Z91.041 Radiographic dye allergy status; Z93.2 Ileostomy status; Z63.6 Dependent relative needing care at home; Z87.42 Personal history of other diseases of the female genital tract; Z87.410 Personal history of cervical dysplasia; Z87.01 Personal history of pneumonia (recurrent); Z81.8 Family history of other mental and behavioral disorders
CPT/HCPCS: 36415; 71010; 71020; 80048; 80053; 82550; 82553; 83605; 83735; 84484; 85025; 85027; 85610; 85730; 87040; 93005; 94640; 94760; 96361; 96374; 96375; 96376; 99291

== ENCOUNTER → 2017-04-14 | Outpatient (CLI) | payer BC ==
--- NOTE | 2017-04-15 08:00 | ECHOF ---
Referral Reason:I50.9 Congestive Heart Failure MEASUREMENTS -------- HEIGHT: 157.5 cm WEIGHT: 46.3 kg BP: 125/73 RVIDd: 2.9 cm (< 3.3) IVSd: 1.0 cm (0.6 - 1.1) LVIDd: 3.8 cm (3.9 - 5.3) LVPWd: 1.0 cm (0.6 - 1.1) IVSs: 1.4 cm LVIDs: 2.4 cm LVPWs: 1.4 cm LAESV Index (A-L): 12.95 ml/m Ao Diam: 2.8 cm (2.0 - 3.7) AV Cusp: 1.6 cm (1.5 - 2.6) LA Diam: 2.3 cm (2.7 - 3.8) MV EXCURSION: 19.262 mm (> 18.000) MV EF SLOPE: 88 mm/s (70 - 150) EPSS: 0.7 cm MV E Jefferson: 0.69 m/s MV DecT: 281 ms MV A Jefferson: 0.83 m/s MV E/A Ratio: 0.84 RAP: 5.00 mmHg RVSP: 14.10 mmHg FINDINGS -------- Resting tachycardia (HR>100bpm). This was a technically good study. The left ventricular size is normal. Overall left ventricular systolic function is normal with, an EF between 60 - 65 %. The right ventricle is normal in size and function. Normal LA size by volume 22+/-6 ml/m2. The right atrium is normal in size. Aortic valve is trileaflet and is mildly thickened. There is no evidence of aortic regurgitation. There is no evidence of aortic stenosis. The mitral valve leaflets are mildly thickened. Mild mitral annular calcification present. There is trace to mild mitral regurgitation. Trace tricuspid regurgitation present. There is no evidence of pulmonary hypertension. The right ventricular systolic pressure, as measured by Doppler, is 14.10mmHg. The pulmonic valve is normal. The aortic root size is normal. There is calcification of the aortic root. Normal inferior vena cava with normal inspiratory collapse consistent with estimated right atrial pressure of 5 mmHg. There is a trivial pericardial effusion present. CONCLUSIONS -------- 1. Resting tachycardia (HR>100bpm). 2. There is no evidence of pulmonary hypertension. 3. The right ventricular systolic pressure, as measured by Doppler, is 14.10mmHg. 4. The aortic root size is normal. 5. There is calcification of the aortic root. 6. There is a trivial pericardial effusion present. 7. This was a technically good study. 8. Overall left ventricular systolic function is normal with, an EF between 60 - 65 %. 9. Normal LA size by volume 22+/-6 ml/m2. 10. Aortic valve is trileaflet and is mildly thickened. 11. The mitral valve leaflets are mildly thickened. 12. Mild mitral annular calcification present. 13. There is trace to mild mitral regurgitation. 14. Trace tricuspid regurgitation present. TOOL OR DIE DRAWING CHECKER: Tyler Osborn RDCS
== END | disposition home or self-care (01) ==
LOC: RADECHMAIN 16:20
PROVIDERS: ATTEND Family Medicine
DX: I08.1 Rheumatic disorders of both mitral and tricuspid valves (principal); I08.0 Rheumatic disorders of both mitral and aortic valves; I31.3 Pericardial effusion (noninflammatory)
CPT/HCPCS: 93306

== ENCOUNTER 2017-05-08 23:32 | Inpatient (IN) | payer BC ==
[2017-05-08] MEDS ORDERED: SODIUM CHLORIDE 0.9% 1,000 ML IV STA (23:34)
[2017-05-08] MEDS ORDERED: ALBUTEROL NEBULIZED 2.5 MG/3 ML INHALATION STA (23:34)
[2017-05-08] MEDS ORDERED: IPRATROPIUM 0.5 MG/2.5 ML NEBU INHALATION STA (23:34)
[2017-05-08] MEDS ORDERED: methylPREDNISolone SOD SUCCI 125 MG/2 ML VIAL IV STA (23:34)
[2017-05-08] MEDS ORDERED: AZITHROMYCIN 500 MG in SODIUM CHLORIDE 0.9% 250 ML IVPB STA (23:38)
[2017-05-08] MEDS ORDERED: ENALAPRILAT 1.25 MG/ML 1 ML VIAL IVP STA (23:43)
[2017-05-08] MEDS ORDERED: MORPHINE SULFATE 2 MG/ML SYRINGE IVP ONE (23:43)
[2017-05-08] MEDS ORDERED: LORazepam 2 MG/ML SYRINGE IV STA (23:43)
[2017-05-08 23:51] LABS: Glucose,Whole Blood 235 mg/dL (75-99)
[2017-05-08 23:58] LABS: Basophils # (A) 0.1 k/uL (0-0.2); Basophils % (A) 0 %; CH 32.7; CHCM 32.6; Eosinophils # (A) 0.1 k/uL (0-0.7); Eosinophils % (A) 1 %; HCT 47.1 % (34.0-46.0); HDW 2.95; Luc # (Auto) 0.39; Luc % (Auto) 2; Lymphocytes % (A) 18 %; MCH 32.8 pg (25.0-35.0); MCHC 32.6 g/dL (31.0-37.0); Macrocytosis Slight; Mean Platelet Volume 6.7; Monocytes # (A) 1.5 k/uL (0-1.0); Monocytes % (A) 9 %; Neutrophils # (A) 11.7 k/uL (1.3-7.7); Neutrophils % (A) 70 %; RBC 4.67 m/uL (3.80-5.40); RDW 15.5 % (11.5-15.5); WBC 16.6 k/uL (3.8-10.6); WBC (Perox) 15.24
[2017-05-09 00:01] LABS: HGB 15.3 gm/dL (11.4-16.0)
[2017-05-09 00:02] LABS: MCV 100.8 fL (80.0-100.0)
[2017-05-09] MEDS ORDERED: SODIUM CHLORIDE 0.9% 1,000 ML IV STA ×2 (00:05→00:23)
[2017-05-09 00:08] LABS: Prothrombin Time 9.8 sec (9.0-12.0)
[2017-05-09] MEDS: MIDAZOLAM (PF) 1 MG/ML 5 ML VIAL IV STA ×2 (00:08→01:24)
[2017-05-09 00:10] LABS: ALT 67 U/L (9-52); AST 67 U/L (14-36); Alkaline Phosphatase 89 U/L (38-126); Anion Gap 11 mmol/L; Blood Urea Nitrogen 19 mg/dL (7-17); Calcium 10.2 mg/dL (8.4-10.2); Carbon Dioxide 33 mmol/L (22-30); Chloride 100 mmol/L (98-107); Glucose 212 mg/dL (74-99); Magnesium 1.7 mg/dL (1.6-2.3); Non-African American GFR(MDRD) >60 (>60 ml/min/1.73 sqM); Potassium 4.5 mmol/L (3.5-5.1); Sodium 144 mmol/L (137-145); Total Bilirubin 0.3 mg/dL (0.2-1.3)
[2017-05-09] MEDS: methylPREDNISolone SOD SUCCI 125 MG/2 ML VIAL IV SCH ×3 (00:10→11:16)
[2017-05-09] MEDS ORDERED: SODIUM CHLORIDE 0.9% 500 ML IV STA (00:23)
--- NOTE | 2017-05-09 00:23 | XR ---
EXAM: XR Chest, 1 View CLINICAL HISTORY: Reason: sob TECHNIQUE: Frontal view of the chest. COMPARISON: 04/10/2017 FINDINGS: Lungs: Again seen are scattered increased interstitial fibrotic lung markings throughout both lungs. Hyperinflation also seen suggesting emphysema/COPD. Pleural space: Large right-sided thorax is seen, new since prior study. Heart: Unremarkable. No cardiomegaly. Mediastinum: Unremarkable. Bones/joints: Chronic fractures involving the lateral aspect of the right mid ribs. IMPRESSION: New large right-sided pneumothorax [employer] 05/09/17 00:27 Call Doctor Regarding Pneumothorax, called Dr. Kincaid on 05/09 00:26 (-04:00)
[2017-05-09 00:36] LABS: Creatine Kinase 31 U/L (30-135); Partial Thromboplastin Time 19.2 sec (22.0-30.0)
--- NOTE | 2017-05-09 00:46 | XR ---
EXAM: XR Chest, 1 View CLINICAL HISTORY: Reason: Pain TECHNIQUE: Frontal view of the chest. COMPARISON: Frontal radiograph of the chest dated 05/08/2017 FINDINGS: Interval reexpansion of the right lung. Small right-sided pneumothorax is still likely present. No other significant interval change. IMPRESSION: Interval reexpansion of the right lung. Small right-sided pneumothorax still present. No other significant interval change.
[2017-05-09 00:48] LABS: Troponin I <0.012 ng/mL (0.000-0.034)
--- NOTE | 2017-05-09 00:57 | ED ---
General Adult HPI - General Chief complaint: Shortness of Breath Stated complaint: SELENA Time Seen by Provider: 05/08/17 23:33 Source: EMS, RN notes reviewed, old records reviewed Mode of arrival: EMS - History of Present Illness Initial comments: This is a 56-year-old female here for evaluation of significant shortness of breath. Patient coming of sudden onset shortness [place] an hour and a half prior to arrival. Patient's severe history of COPD, no recent fevers, has had some stress about the last day or so significantly worse over the last hour and half prior to arrival. Patient denies any significant chest pain but is in severe distress, but in by EMS who transported patient on BiPAP. Patient is poor strain secondary to clinical condition - Related Data Home Medications Medication Instructions Recorded Confirmed Aclidinium [place] [Tudorza 400 mcg INHALATION RT-BID 06/21/14 03/18/17 Pressair] Adalimumab [Humira Pen] 40 mg SQ FR 06/21/14 03/18/17 Acetaminophen-Codeine 300-30mg 1 tab PO TID 08/18/14 03/18/17 [Tylenol w/codeine #3] Calcium Carb-Vit D 500Mg-200Un 1 tab PO BID 04/27/16 03/18/17 [Oscal 500+D] Fluticasone/Vilanterol [Breo 1 puff INHALATION RT-DAILY 04/27/16 03/18/17 Ellipta 100-25 Mcg Inhaler] Multivitamins, Thera [Multivitamin 1 tab PO DAILY 04/27/16 03/18/17 (formulary)] Opium Tincture 2 ml PO QID 04/27/16 03/18/17 Mercaptopurine [Purinethol] 50 mg PO BID 02/22/17 03/18/17 Albuterol Sulfate [Proair Hfa] 2 puff INHALATION RT-QID PRN 03/18/17 03/18/17 predniSONE See Taper PO DIRECTED 03/18/17 03/18/17 Previous Rx's Medication Instructions Recorded Nicotine 21Mg/24Hr Patch [Habitrol] 1 patch TRANSDERM DAILY #30 patch 03/02/17 ALPRAZolam [Xanax] 0.5 mg PO TID PRN #10 tab 03/22/17 Fluconazole [Diflucan] 100 mg PO DAILY #7 03/22/17 Ipratropium-Albuterol Nebulize 3 ml INHALATION RT-QID neb 03/22/17 [Duoneb 0.5 mg-3 mg/3 ml Soln] Levofloxacin [Levaquin] 500 mg PO DAILY #4 03/22/17 guaiFENesin [Mucinex] 1,200 mg PO Q12HR tab 03/22/17 Allergies Allergy/AdvReac Type Severity Reaction Status Date / Time aspirin Allergy Unknown Verified 03/18/17 22:09 Beta-Blockers Allergy Unknown Verified 03/18/17 22:09 (Beta-Adrenergic Bloc Iodine and Iodide Containing Allergy Unknown Verified 03/18/17 22:09 Produc Sulfa (Sulfonamide Allergy Unknown Verified 03/18/17 22:09 Antibiotics) timolol [Timolol] Allergy Unknown Verified 03/18/17 22:09 Review of Systems ROS Statement: Those systems with pertinent positive or pertinent negative responses have been documented in the HPI. ROS Other: All systems not noted in ROS Statement are negative. Past Medical History Past Medical History: COPD, Fibromyalgia, GERD/Reflux, GI Bleed, Osteoarthritis (OA), Pneumonia Additional Past Medical History / Comment(s): COPD, severe with an FEV1 of 36% of predicted, crohn's, bowel obstructions, lower GI bleeds, hiatal hernia, osteoporosis, arthritis multiple joints, seasonal allergies. History of Any Multi-Drug Resistant Organisms: None Reported Past Surgical History: Breast Surgery, Cholecystectomy, Hernia Repair, Hysterectomy, Orthopedic Surgery Additional Past Surgical History / Comment(s): Multiple bowel surgeries including total colectomy/ileostomy, ileostomy moved/repaired, R tube and R ovary removed due toectopic , total hysterectomy, leep procedure, laparoscopy for endometriosis, L breast lumpectomy-benign, r breast core bx- benign, EGD/colonoscopies. Past Anesthesia/Blood Transfusion Reactions: No Reported Reaction Past Psychological History: No Psychological Hx Reported Smoking Status: Former smoker Past Alcohol Use History: None Reported Past Drug Use History: None Reported - Past Family History Mother Family Medical History: Cancer, COPD Additional Family Medical History / Comment(s): Skin cancer and osteoporosis. Father Family Medical History: Dementia Additional Family Medical History / Comment(s): Father is 90yrs old. General Exam General appearance: alert, anxious, in distress, cachectic Head exam: Present: atraumatic, normocephalic, normal inspection Eye exam: Present: normal appearance, PERRL, EOMI. Absent: scleral icterus, conjunctival injection, periorbital swelling ENT exam: Present: normal exam, mucous membranes moist Neck exam: Present: normal inspection. Absent: tenderness, meningismus, lymphadenopathy Respiratory exam: Present: normal lung sounds bilaterally, wheezes, decreased breath sounds, prolonged expiratory. Absent: respiratory distress, rales, rhonchi, stridor Cardiovascular Exam: Present: normal rhythm, tachycardia, normal heart sounds. Absent: systolic murmur, diastolic murmur, rubs, gallop, clicks GI/Abdominal exam: Present: soft, normal bowel sounds. Absent: distended, tenderness, guarding, rebound, rigid Extremities exam: Present: normal inspection, full ROM, normal capillary refill. Absent: tenderness, pedal edema, joint swelling, calf tenderness Back exam: Present: normal inspection Neurological exam: Present: alert, oriented X3, CN II-XII intact Psychiatric exam: Present: normal affect, normal mood Skin exam: Present: warm, dry, intact, normal color. Absent: rash Course Vital Signs 05/08/17 05/08/17 05/08/17 23:33 23:45 23:46 Temperature 97.2 F L Pulse Rate 151 H 147 H 147 H Respiratory 30 H 28 H Rate Blood Pressure 168/121 139/94 O2 Sat by Pulse 77 L 93 L Oximetry 05/08/17 05/09/17 05/09/17 23:58 00:07 00:22 Temperature Pulse Rate 142 H 146 H 140 H Respiratory 22 20 Rate Blood Pressure 141/96 115/77 O2 Sat by Pulse 95 100 Oximetry 05/09/17 05/09/17 05/09/17 00:37 00:41 01:21 Temperature Pulse Rate 136 H 136 H 128 H Respiratory 22 18 Rate Blood Pressure 112/65 110/75 O2 Sat by Pulse 100 100 Oximetry - Reevaluation(s) Reevaluation #1: Patient placed on BiPAP secondary to severe respiratory distress, prolonged breathing treatment initiated 05/09/17 01:41 Patient originally needle, decompressed with significant improvement in symptoms , Reevaluation #2: 05/09/17 01:42 Definitive therapy with Thoravent Procedures - Procedures Initial comment: Needle decompression Chlorhexidine wipe anterior right chest 14-gauge needle and cath inserted into right chest wall between second and third mid clavicular space Satisfactory placement, No complications Chest x-ray shows improvement in expansion of pneumothorax - Chest Tube Insertion Consent Obtained: verbal consent Time Out Performed: Yes Side of Procedure: right Indication: Pneumothorax Placed on monitor/pulse oximetry: Yes Site Prep: Chloroprep Local Anesthesia: Lidocaine 1% Insertion Site: Other (midclavicular, 2nd intercostal) Returns: Air Sutured in Place: No (Floyd) Repeat X-ray Results: Lung Inflated Patient Tolerated Procedure: well Medical Decision Making - Medical Decision Making 56 Ritesh to ER for evaluation of severe shortness of breath of sudden onset, right-sided pneumothorax, initially pneumothoraxes needle decompressed secondary to mechanical ventilation ventilation to BiPAP, patient then had significant or definitive therapy with Flovent, patient will be given breathing treatment, continued on BiPAP and admitted to the floor - Lab Data Result diagrams: 05/08/17 23:36 05/08/17 23:36 Lab Results 05/08/17 05/08/17 05/08/17 Range/Units 23:36 23:36 23:36 WBC 16.6 H (3.8-10.6) k/uL RBC 4.67 (3.80-5.40) m/uL Hgb 15.3 D (11.4-16.0) gm/dL Hct 47.1 H (34.0-46.0) % MCV 100.8 H D (80.0-100.0) fL MCH 32.8 (25.0-35.0) pg MCHC 32.6 (31.0-37.0) g/dL RDW 15.5 (11.5-15.5) % Plt Count 408 (150-450) k/uL Neutrophils % 70 % Lymphocytes % 18 % Monocytes % 9 % Eosinophils % 1 % Basophils % 0 % Neutrophils # 11.7 H (1.3-7.7) k/uL Lymphocytes # 3.0 (1.0-4.8) k/uL Monocytes # 1.5 H (0-1.0) k/uL Eosinophils # 0.1 (0-0.7) k/uL Basophils # 0.1 (0-0.2) k/uL Macrocytosis Slight PT (9.0-12.0) sec INR (<1.1) APTT (22.0-30.0) sec Sodium 144 (137-145) mmol/L Potassium 4.5 (3.5-5.1) mmol/L Chloride 100 (98-107) mmol/L Carbon Dioxide 33 H (22-30) mmol/L Anion Gap 11 mmol/L BUN 19 H (7-17) mg/dL Creatinine 0.80 (0.52-1.04) mg/dL Est GFR (MDRD) Af Amer >60 (>60 ml/min/1.73 sqM) Est GFR (MDRD) Non-Af >60 (>60 ml/min/1.73 sqM) Glucose 212 H (74-99) mg/dL POC Glucose (mg/dL) (75-99) mg/dL POC Glu Assistant Director Of Security ID Calcium 10.2 (8.4-10.2) mg/dL Magnesium 1.7 (1.6-2.3) mg/dL Total Bilirubin 0.3 (0.2-1.3) mg/dL AST 67 H (14-36) U/L ALT 67 H (9-52) U/L Alkaline Phosphatase 89 (38-126) U/L Total Creatine Kinase 31 (30-135) U/L CK-MB (CK-2) 2.0 (0.0-2.4) ng/mL CK-MB (CK-2) Rel Index 6.5 Troponin I <0.012 (0.000-0.034) ng/mL NT-Pro-B Natriuret Pep pg/mL Total Protein 7.0 (6.3-8.2) g/dL Albumin 4.5 (3.5-5.0) g/dL 05/08/17 05/08/17 05/08/17 Range/Units 23:36 23:36 23:48 WBC (3.8-10.6) k/uL RBC (3.80-5.40) m/uL Hgb (11.4-16.0) gm/dL Hct (34.0-46.0) % MCV (80.0-100.0) fL MCH (25.0-35.0) pg MCHC (31.0-37.0) g/dL RDW (11.5-15.5) % Plt Count (150-450) k/uL Neutrophils % % Lymphocytes % % Monocytes % % Eosinophils % % Basophils % % Neutrophils # (1.3-7.7) k/uL Lymphocytes # (1.0-4.8) k/uL Monocytes # (0-1.0) k/uL Eosinophils # (0-0.7) k/uL Basophils # (0-0.2) k/uL Macrocytosis PT 9.8 (9.0-12.0) sec INR 1.0 (<1.1) APTT 19.2 L (22.0-30.0) sec Sodium (137-145) mmol/L Potassium (3.5-5.1) mmol/L Chloride (98-107) mmol/L Carbon Dioxide (22-30) mmol/L Anion Gap mmol/L BUN (7-17) mg/dL Creatinine (0.52-1.04) mg/dL Est GFR (MDRD) Af Amer (>60 ml/min/1.73 sqM) Est GFR (MDRD) Non-Af (>60 ml/min/1.73 sqM) Glucose (74-99) mg/dL POC Glucose (mg/dL) 235 H (75-99) mg/dL POC Glu Assistant Director Of Security ID Luiza Marcos Calcium (8.4-10.2) mg/dL Magnesium (1.6-2.3) mg/dL Total Bilirubin (0.2-1.3) mg/dL AST (14-36) U/L ALT (9-52) U/L Alkaline Phosphatase (38-126) U/L Total Creatine Kinase (30-135) U/L CK-MB (CK-2) (0.0-2.4) ng/mL CK-MB (CK-2) Rel Index Troponin I (0.000-0.034) ng/mL NT-Pro-B Natriuret Pep 55 pg/mL Total Protein (6.3-8.2) g/dL Albumin (3.5-5.0) g/dL - Radiology Data Radiology results: report reviewed (Chest x-ray shows right-sided pneumothorax, repeat chest x-ray shows improvement of right-sided pneumothorax 2 both after needle decompression and placement for about), image reviewed Critical Care Time Critical Care Time: Yes Total Critical Care Time: 65 Disposition Clinical Impression: Asthma with exacerbation, Acute exacerbation of chronic obstructive airways disease, COPD exacerbation, Pneumothorax, right Disposition: ADMITTED IP TO THIS HOSP Condition: Serious Referrals: None,Stated [Primary Care Provider] - 1-2 days
[2017-05-09] MEDS ORDERED: KETOROLAC 30 MG/ML 1 ML VIAL IVP STA (01:33)
[2017-05-09] MEDS ORDERED: ACETAMINOPHEN IV (For NPO) 1,000 MG in EMPTY BAG 1 BAG IVPB STA (01:35)
--- NOTE | 2017-05-09 02:10 | XR ---
EXAM: XR Chest, 1 View CLINICAL HISTORY: Reason: Pain TECHNIQUE: Frontal view of the chest. COMPARISON: Earlier the same day. FINDINGS: Lungs: Chronic interstitial lung changes, as noted before. The lungs are hyperinflated suggesting emphysematous changes/COPD. Pleural space: The right lung appears again to be reexpanded from previous large pneumothorax. Trace small pneumothorax is still noted. Heart: Unremarkable. No cardiomegaly. Mediastinum: Unremarkable. Bones/joints: Mild degenerative changes. Tubes, lines and devices: Tube overlies the right lung apex, of unknown significance. IMPRESSION: The right lung appears again to be reexpanded from previous large pneumothorax. Trace right small pneumothorax is still noted.
[2017-05-09 06:19] LABS: Glucose,Whole Blood 157 mg/dL (75-99)
[2017-05-09] MEDS: IPRATROPIUM-ALBUTEROL 3 ML NEB INHALATION SCH ×4 (06:50→20:13)
[2017-05-09] MEDS: INSULIN LISPRO (humaLOG) 300 UNIT/3 ML VIAL SQ SCH ×4 (06:50→21:25)
[2017-05-09] MEDS: ENOXAPARIN 40 MG/0.4 ML SYRINGE SQ SCH (08:01)
[2017-05-09] MEDS: traMADol 50 MG TAB PO PRN ×2 (11:15→20:31)
[2017-05-09 11:38] LABS: Glucose,Whole Blood 133 mg/dL (75-99)
[2017-05-09 11:59] LABS: Hemoglobin A1C 5.5 % (4.2-6.1)
[2017-05-09] MEDS: HYDROcodone/APAP 7.5-325MG 1 EACH TAB PO PRN ×2 (14:05→21:37)
[2017-05-09] MEDS: DILTIAZEM ORAL 60 MG TAB PO SCH ×2 (16:26→21:25)
[2017-05-09 16:35] LABS: Glucose,Whole Blood 121 mg/dL (75-99)
--- NOTE | 2017-05-09 17:10 | CONS ---
This is a 56 year old white female with history of underlying COPD from tobacco use. May be seeing Dr. Cintron in our office, I am not sure. The patient came to the emergency room yesterday with complaints of acute onset of right sided chest pain and shortness of breath. She laid down hoping it would get better. It did not. She called the EMS. EMS brought her in. She was found to have significant right sided pneumothorax and a Thor-A-Vent was placed. The patient is currently resting comfortably. There was good re- expansion of the lung after the Thora-Vent was placed. The patient had no prior history of pneumothorax. Does have history of underlying severe COPD and continues to smoke. Home medications includes: 1. Tudorza. 2. Press-Air. 3. [place]. 4. Tylenol with Codeine. 5. Calcium with Vitamin D. 6. Breo. 7. Multiple vitamins. 8. Captopureine. 9. Albuterol updrafts. 10. Prednisone taper. 11. Also previously on nicotine patch. 12. Xanax. 13. Diflucan. 14. DuoNeb. 15. Levaquin. 16. Mucinex. ALLERGIES INCLUDE: ASPIRIN, BETA BLOCKERS, IODINE CONTAINING PRODUCTS, SULFA ANTIBIOTICS AND TIMOLOL. Medical history includes COPD, fibromyalgia, GERD, GI bleed, osteoarthritis, pneumonia, bowel obstruction, GI bleed, hiatal hernia, osteoporosis, diffuse arthritis. Surgical history includes: Breast surgery, cholecystectomy, hernia repair, hysterectomy, multiple bowel procedures including total colectomy, ileostomy, hysterectomy, laparoscopy for endometriosis, left breast lumpectomy and EGD with colonoscopies. Social history is positive for ongoing tobacco use. Denies any alcohol. No illicit drug use. Family history is positive for COPD, skin cancer, dementia. REVIEW OF SYSTEMS: CONSTITUTIONAL: Negative. Neurological negative. HEENT: Negative. Cardiovascular: Negative. Pulmonary: Shortness of breath, chest pain, sudden onset with chronic dyspnea on exertion from underlying COPD, non-oxygen dependent, GI/ Negative. Rheumatological, immunological, endocrinological, dermatological all negative. Current vital signs were reviewed. Temperature 98, heart rate 100. Respiratory rate 18. Blood pressure 116/83. Mean 94. 5 L saturation 99%. Appears in no acute distress. HEENT: Grossly unremarkable. Mucous membranes are moist. No oral lesions. ( ) normal. Neck is supple. Full range of motion. No adenopathy or thyromegaly. Neck veins are flat. Cardiovascular examination reveals regular rhythm and rate. Heart rate is 100. S1, S2 normal. No S3, S4 or murmur. Lungs reveal severely diminished breath sounds. No crackles or wheezes. No rhonchi. Slight prolongation. abdomen soft, bowel sounds are heard. No masses or tenderness. Extremities intact. No cyanosis, clubbing or edema. Skin without rash. Neurological examination brief but nonfocal. X-rays are reviewed. A small residual right pneumothorax is noted. Labs are reviewed. White count 16.6. Hemoglobin 15.8, hematocrit 47.1, platelet count 408,000. PT/INR is normal. PTT 98.2, sodium, potassium chloride normal, CO2 33, again we are ( ) the fact that she is likely a CO2 retainer with a baseline PACO2 of probably 58 plus or minus 2 mmHg. Anion gap was normal. BUN and creatinine were 19 and 0.8. The rest of the labs look okay except AST/ALT were 67 and 67 respectively. Medications were reviewed. She is on her usual medications. Probably should discontinue the Solu-Medrol. ASSESSMENT: 1. Acute right pneumothorax status post Thor-A-Vent placement. 2. Severe chronic obstructive pulmonary disease. 3. Ongoing tobacco use with nicotine addiction. 4. Multiple other medical problems and comorbidities as listed above. PLAN: To help heal the pneumothorax, cortical steroids should be discontinued. The patient's medication will be reviewed. Additional recommendations and suggestions forthcoming. Prognosis is guarded. MTDD
[2017-05-09] MEDS: SYMBICORT 160-4.5 MCG INHALER INHALATION SCH (20:13)
[2017-05-09] MEDS ORDERED: DENOSUMAB 60 MG/ML 1 ML SYRINGE SQ SCH (20:15)
[2017-05-09] MEDS: DICYCLOMINE 10 MG CAP PO SCH (20:35)
[2017-05-09 21:06] LABS: Glucose,Whole Blood 107 mg/dL (75-99)
[2017-05-09] MEDS: CALCIUM CARB-VIT D 500MG-200UN 1 EACH TAB PO SCH (21:25)
[2017-05-09] MEDS: MELATONIN 3 MG TABLET PO SCH (21:25)
[2017-05-09] MEDS: busPIRone HCl 10 MG TAB PO SCH (21:25)
--- NOTE | 2017-05-09 22:13 | P.HPIM ---
History of Present Illness H&P Date: 05/09/17 Chief Complaint: Short of breath cough This is a 51 [address] Scott. Chronic stable medical conditions include fibromyalgia, GERD, osteoarthritis, hiatal hernia, osteoporosis, history of Crohn's and ulcerative colitis and has had a large bowel resected and chronic ileostomy with intermittent diarrhea. Patient stopped smoking in January of this year. Patient presents with worsening short of breath cough; yellow sputum and chest hurts when she coughs. Decreased appetite rundown. Denies any fever. Patient's follow large pneumothorax on the right side. 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 Review of Systems GEN.: Weak and tired decreased appetite EYES: None HEENT: None NECK: None RESPIRATORY: As above CARDIOVASCULAR: None GASTROINTESTINAL: None GENITOURINARY: None MUSCULOSKELETAL: As above] LYMPHATICS: None HEMATOLOGICAL: None PSYCHIATRY: Anxious appearing NEUROLOGICAL: None Past Medical History Past Medical History: No Reported History, COPD, Fibromyalgia, GERD/Reflux, GI Bleed, Osteoarthritis (OA), Pneumonia Additional Past Medical History / Comment(s): COPD, severe with an FEV1 of 36% of predicted, crohn's, bowel obstructions, lower GI bleeds, hiatal hernia, osteoporosis, arthritis multiple joints, seasonal allergies. History of Any Multi-Drug Resistant Organisms: None Reported Past Surgical History: Breast Surgery, Cholecystectomy, Hernia Repair, Hysterectomy, Orthopedic Surgery Additional Past Surgical History / Comment(s): Multiple bowel surgeries including total colectomy/ileostomy, ileostomy moved/repaired, R tube and R ovary removed due toectopic , total hysterectomy, leep procedure, laparoscopy for endometriosis, L breast lumpectomy-benign, r breast core bx- benign, EGD/colonoscopies. Past Anesthesia/Blood Transfusion Reactions: No Reported Reaction Past Psychological History: No Psychological Hx Reported Additional Psychological History / Comment(s): Pt currently is staying with her 90 yr old father who has dementia. Her spouse is staying at their home to care for the dogs. 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 She is independent. Smoking Status: Former smoker Additional History: Patient takes care of her 90 O father at home, patient smoked 2 packs a day for 40 years stopped in January of this year - Past Family History Mother Family Medical History: Cancer, COPD Additional Family Medical History / Comment(s): Skin cancer and osteoporosis. Father Family Medical History: Dementia Additional Family Medical History / Comment(s): Father is 90yrs old. Medications and Allergies Home Medications Medication Instructions Recorded Confirmed Type Aclidinium [place] [Tudorza 400 mcg INHALATION RT-BID 06/21/14 05/09/17 History Pressair] Adalimumab [Humira Pen] 40 mg SQ FR 06/21/14 05/09/17 History Acetaminophen-Codeine 300-30mg 2 tab PO Q6H PRN 08/18/14 05/09/17 History [Tylenol w/codeine #3] Calcium Carb-Vit D 500Mg-200Un 1 tab PO BID 04/27/16 05/09/17 History [Oscal 500+D] Fluticasone/Vilanterol [Breo 1 puff INHALATION RT-DAILY 04/27/16 05/09/17 History Ellipta 100-25 Mcg Inhaler] Multivitamins, Thera [Multivitamin 1 tab PO DAILY 04/27/16 05/09/17 History (formulary)] Opium Tincture 2 ml PO QID 04/27/16 05/09/17 History Mercaptopurine [Purinethol] 100 mg PO DAILY 02/22/17 05/09/17 History Albuterol Sulfate [Proair Hfa] 2 puff INHALATION RT-QID PRN 03/18/17 05/09/17 History Albuterol Sulfate [Proair Hfa] 2 puff INHALATION RT-Q6H PRN 05/09/17 05/09/17 History Cholecalciferol [Vitamin D3] 3,000 unit PO DAILY 05/09/17 05/09/17 History Cyanocobalamin [Vitamin B-12 1,000 mcg SQ QMONTH 05/09/17 05/09/17 History Injection] Denosumab [Prolia] 60 mg SQ Q180D 05/09/17 05/09/17 History Dicyclomine [Bentyl] 10 mg PO QID 05/09/17 05/09/17 History Diltiazem HCl 60 mg PO TID 05/09/17 05/09/17 History Hydrocodone/Acetaminophen [Vicodin 1 tab PO TID 05/09/17 05/09/17 History Es 7.5-300 mg Tablet] busPIRone HCl [Buspar] 20 mg PO BID 05/09/17 05/09/17 History predniSONE [predniSONE] See Taper PO DAILY 05/09/17 05/09/17 History Allergies Allergy/AdvReac Type Severity Reaction Status Date / Time aspirin Allergy Unknown Verified 03/18/17 22:09 Beta-Blockers Allergy Unknown Verified 03/18/17 22:09 (Beta-Adrenergic Bloc Iodine and Iodide Containing Allergy Unknown Verified 03/18/17 22:09 Produc Sulfa (Sulfonamide Allergy Unknown Verified 03/18/17 22:09 Antibiotics) timolol [Timolol] Allergy Unknown Verified 03/18/17 22:09 Physical Exam Vitals: Vital Signs VITAL SIGNS: 97.2, 151, 30, 160/121, 77% on BiPAP GENERAL: Average built, sitting up, short of breath. EYES: Pupils equal. Conjunctiva normal. HEENT: External appearance of nose and ears normal, oral cavity grossly normal. NECK: JVD not raised; masses not palpable. HEART: First and second heart sounds are normal; no edema. LUNGS: Respiratory rate increased, decreased breath sounds, prolonged expiration and some crackles extremity wheezing. Using accessory muscles ABDOMEN: Soft, nontender, liver spleen not palpable, no masses palpable. LYMPHATICS: No lymph nodes palpable in the axilla and neck. PSYCH: Alert and oriented x3; mood and affect anxious appearingl. NEUROLOGICAL: Cranial nerves grossly intact; no facial asymmetry, power and sensation grossly intact. Results CBC & Chem 7: 05/08/17 23:36 05/08/17 23:36 Labs: Abnormal Lab Results - Last 24 Hours (Table) Assessment and Plan Plan: Assessment: -Acute large pneumothorax in a COPD patient with significant reexpansion with thora-vac placement -Acute severe COPD exacerbation in ex-smoker -GERD -Primary osteoarthritis multiple joints bilateral -Chronic corns disease ulcerative colitis leading to ileostomy following a colectomy -Hiatal hernia Anxiety not otherwise specified Plan: No pneumothorax as managed above. Home medications are resumed. Started on bronchodilators and IV steroids.. Dr. Meza from pulmonary was consulted.Care was discussed with the patient, questions were answered
[2017-05-09] MEDS: Acetaminophen-Codeine 300-30mg TAB PO PRN (23:27)
[2017-05-09] MEDS: methylPREDNISolone SOD SUCCI 40 MG/ML 1 ML VIAL IV SCH (23:28)
[2017-05-10] MEDS: traMADol 50 MG TAB PO PRN ×2 (02:02→15:55)
[2017-05-10] MEDS: HYDROcodone/APAP 7.5-325MG 1 EACH TAB PO PRN ×2 (05:13→20:05)
[2017-05-10 06:13] LABS: Glucose,Whole Blood 164 mg/dL (75-99)
[2017-05-10] MEDS: INSULIN LISPRO (humaLOG) 300 UNIT/3 ML VIAL SQ SCH ×4 (06:37→21:33)
[2017-05-10] MEDS: Acetaminophen-Codeine 300-30mg TAB PO PRN ×2 (07:25→23:59)
[2017-05-10] MEDS: SYMBICORT 160-4.5 MCG INHALER INHALATION SCH ×3 (07:34→20:20)
[2017-05-10] MEDS: IPRATROPIUM-ALBUTEROL 3 ML NEB INHALATION SCH ×4 (07:34→20:17)
[2017-05-10] MEDS ORDERED: TIOTROPIUM 18 MCG/PUFF INHALER INHALATION SCH (08:00)
[2017-05-10] MEDS ORDERED: SYMBICORT 80-4.5 MCG INHALER INHALATION SCH (08:00)
[2017-05-10] MEDS: CHOLECALCIFEROL 1,000 UNIT TAB PO SCH (08:14)
[2017-05-10] MEDS: methylPREDNISolone SOD SUCCI 40 MG/ML 1 ML VIAL IV SCH ×3 (08:14→23:50)
[2017-05-10] MEDS: CALCIUM CARB-VIT D 500MG-200UN 1 EACH TAB PO SCH ×2 (08:14→20:05)
[2017-05-10] MEDS: busPIRone HCl 10 MG TAB PO SCH ×2 (08:14→20:04)
[2017-05-10] MEDS: DICYCLOMINE 10 MG CAP PO SCH ×4 (08:14→20:05)
[2017-05-10] MEDS: ENOXAPARIN 40 MG/0.4 ML SYRINGE SQ SCH (08:15)
[2017-05-10] MEDS: DILTIAZEM ORAL 60 MG TAB PO SCH ×3 (08:15→20:05)
[2017-05-10] MEDS: MERCAPTOPURINE 50 MG TAB PO SCH (10:07)
[2017-05-10] MEDS: NICOTINE 21MG/24HR PATCH TRANSDERM SCH (10:08)
[2017-05-10] MEDS: MORPHINE ORAL SOLN 20 MG/1 ML ORAL SYRINGE PO SCH ×3 (10:26→17:36)
[2017-05-10 11:39] LABS: Glucose,Whole Blood 168 mg/dL (75-99)
[2017-05-10] MEDS: MULTIVITAMINS, THERA 1 EACH TAB PO SCH (12:01)
--- NOTE | 2017-05-10 13:51 | P.PN ---
Subjective Principal diagnosis: Right-sided spontaneous pneumothorax. This is a very pleasant 56-year-old female patient who has a history of chronic obstructive pulmonary disease, fiber myalgia, GERD, GI bleed, as her arthritis, hiatal hernia, osteoporosis, arthritis. She follows with Dr. Mistry in our office for her COPD. She is maintained on Breo, Tudorza, pro-air and albuterol inhalations. Unfortunately patient does continue to smoke however has been trying to quit since January. She had presented here yesterday after developing a acute onset of right-sided chest pain and shortness of breath. She was found to have a significant right-sided pneumothorax. She is status post Dura-Vent placement. Today's chest x-ray shows near complete expansion of the right lung. She is breathing quite a bit easier today as compared to yesterday. She is maintaining good O2 saturations in the mid to upper 90s on 5 L/m per nasal cannula. She's hemodynamically stable. Afebrile. Objective - Vital Signs Vital signs: Vital Signs Temp 97.0 F L 05/10/17 12:00 Pulse 83 05/10/17 12:00 Resp 20 05/10/17 12:00 BP 105/67 05/10/17 12:00 Pulse Ox 96 05/10/17 12:00 Intake & Output 05/09/17 05/10/17 05/10/17 18:59 06:59 18:59 Intake Total 100 200 120 Output Total 100 300 Balance 0 -100 120 Weight 48 kg Intake: IV 200 Sodium Chloride 0.9% 1, 200 000 ml @ 100 mls/hr IV . Q10H STA Rx#:[id number] Oral 100 120 Output: Urine 300 Stool 100 Other: Voiding Method Bedpan Bedpan # Voids 1 1 # Bowel Movements 1 - Exam GENERAL EXAM: Alert, fairly comfortable in no apparent distress. HEAD: Normocephalic. EYES: Normal reaction of pupils, equal size. NOSE: Clear with pink turbinates. THROAT: No erythema or exudates. NECK: No masses, no JVD. CHEST: No chest wall deformity. LUNGS: Equal air entry with no crackles, wheeze, rhonchi or dullness. Diminished. CVS: S1 and S2 normal with no audible mumurs, regular rhythm. ABDOMEN: No hepatosplenomegaly, normal bowel sounds, no guarding or rigidity. Extremities: There is no significant peripheral edema. No clubbing, no cyanosis. Peripheral pulses are intact. - Labs CBC & Chem 7: 05/08/17 23:36 05/08/17 23:36 Labs: Abnormal Lab Results - Last 24 Hours (Table) 05/09/17 05/09/17 05/10/17 Range/Units 16:33 21:04 06:11 POC Glucose (mg/dL) 121 H 107 H 164 H (75-99) mg/dL 05/10/17 Range/Units 11:33 POC Glucose (mg/dL) 168 H (75-99) mg/dL Assessment and Plan Plan: Impression: #1 Acute right-sided follow-up chest x-ray showing near-complete expansion. spontaneous pneumothorax status post Thor-A-Vent placement. #2 Chronic obstructive pulmonary disease. #3 Chronic and ongoing tobacco dependence. #4 Fibromyalgia. #5 Arthritis. #6 Osteoarthritis. #7 Hiatal hernia. #8 History of GI bleed. #9 Gastroesophageal reflux disease. Plan: The patient was seen and evaluated by Dr. Meza. She is improved today as compared to yesterday. Her chest x-ray shows near complete re expansion. We' ll repeat a chest x-ray in the a.m. and have the Thor-a-vent removed. In the interim we'll continue with her current medications. We'll increase her activity as tolerated. We'll continue to follow.
--- NOTE | 2017-05-10 17:00 | P.PN ---
Progress Note - Text DATE OF SERVICE: 05/10/2017 PRESENTING COMPLAINT: Shortness of breath INTERVAL HISTORY: 56-year-old female with worsening shortness of breath cough or sputum production , found to have a large pneumothorax on the right side Thora vent placed with reexpansion. 05/10/2017: Patient lying in the bed, appears comfortable, does complain of right chest wall chest pain secondary to Thora vent placement, states that her breathing is better, although it is noted that she has a cough. Nonproductive however course cough. REVIEW OF SYSTEMS: Done for constitutional ,cardiovascular, GI, pulmonary with relevant findings as above. CURRENT MEDICATIONS [place], DuoNeb, Symbicort, Bentyl, diltiazem, melatonin, Solu-Medrol, nicotine patch. PHYSICAL EXAM VITAL SIGNS: Temperature 97.0 pulse 83 respiratory rate 20 blood pressure 105/67 oxygen saturation 96% on 5 L. GENERAL APPEARANCE:. Lying in bed, not in distress. EYES: Pupils equal. Conjunctiva normal. NECK: JVD not raised. Mass not palpable. RESPIRATORY: Respiratory effort increased. Decreased breath sounds. CARDIOVASCULAR: First and second sounds normal. No edema. ABDOMEN: Soft. Liver and spleen not palpable. No tenderness. No mass palpable. PSYCHIATRY: Alert and oriented x3. Mood and affect normal. INVESTIGATIONS: None new ASSESSMENT: -Acute large pneumothorax in a COPD patient with significant reexpansion with thora-vac placement, improving -Acute severe COPD exacerbation in ex-smoker -GERD -Primary osteoarthritis multiple joints bilateral -Chronic Crohn's disease ulcerative colitis leading to ileostomy following a colectomy -Hiatal hernia Anxiety not otherwise specified PLAN: Pneumothorax improving, pulmonology following. Thora vent may be removed tomorrow based on chest x-ray. Plan of care discussed with patient and she is agreeable. We'll continue to monitor closely. SALVAGE WINDER statement: Patient was seen and examined by nurse practitioner Mitzi Hawthorne and all elements of the case discussed with attending Dr. Austin
[2017-05-10 17:04] LABS: Glucose,Whole Blood 130 mg/dL (75-99)
[2017-05-10] MEDS: MELATONIN 3 MG TABLET PO SCH (20:04)
[2017-05-10 21:08] LABS: Glucose,Whole Blood 197 mg/dL (75-99)
[2017-05-10] MEDS: OPIUM 10 MG/ML PO SCH (21:33)
[2017-05-11] MEDS: traMADol 50 MG TAB PO PRN ×3 (00:43→22:09)
[2017-05-11] MEDS: DICYCLOMINE 10 MG CAP PO SCH ×6 (03:45→22:09)
[2017-05-11] MEDS: HYDROcodone/APAP 7.5-325MG 1 EACH TAB PO PRN ×2 (03:48→14:50)
[2017-05-11 05:59] LABS: Glucose,Whole Blood 146 mg/dL (75-99)
[2017-05-11] MEDS: INSULIN LISPRO (humaLOG) 300 UNIT/3 ML VIAL SQ SCH ×4 (06:52→22:09)
[2017-05-11 06:57] LABS: Basophils % (A) 0 %; CH 32.1; CHCM 32.3; Eosinophils % (A) 0 %; HCT 35.8 % (34.0-46.0); HDW 2.89; Luc # (Auto) 0.05; Luc % (Auto) 0; Lymphocytes # (A) 0.3 k/uL (1.0-4.8); Lymphocytes % (A) 2 %; MCH 33.2 pg (25.0-35.0); MCHC 33.3 g/dL (31.0-37.0); MCV 99.8 fL (80.0-100.0); Macrocytosis Slight; Mean Platelet Volume 7.4; Monocytes # (A) 0.5 k/uL (0-1.0); Monocytes % (A) 3 %; Neutrophils # (A) 16.2 k/uL (1.3-7.7); Neutrophils % (A) 95 %; RBC 3.59 m/uL (3.80-5.40); RDW 15.4 % (11.5-15.5)
[2017-05-11] MEDS: IPRATROPIUM-ALBUTEROL 3 ML NEB INHALATION SCH ×4 (06:57→20:09)
[2017-05-11] MEDS: SYMBICORT 160-4.5 MCG INHALER INHALATION SCH ×3 (06:57→20:09)
[2017-05-11] MEDS: OPIUM 10 MG/ML PO SCH ×4 (07:02→23:07)
[2017-05-11 07:04] LABS: HGB 11.9 gm/dL (11.4-16.0)
[2017-05-11 07:08] LABS: Anion Gap 6 mmol/L; Blood Urea Nitrogen 18 mg/dL (7-17); Calcium 9.2 mg/dL (8.4-10.2); Carbon Dioxide 28 mmol/L (22-30); Chloride 108 mmol/L (98-107); Glucose 131 mg/dL (74-99); Non-African American GFR(MDRD) >60 (>60 ml/min/1.73 sqM); Potassium 3.8 mmol/L (3.5-5.1); Sodium 142 mmol/L (137-145)
--- NOTE | 2017-05-11 08:00 | XR ---
EXAMINATION TYPE: XR chest 1V portable DATE OF EXAM: 05/11/2017 CLINICAL HISTORY: Difficulty breathing and chest tube progress study. TECHNIQUE: Single AP portable frontal view of the chest is obtained. COMPARISON: Chest x-ray from 2 days earlier and older studies FINDINGS: There is persistent right apical small caliber chest tube. No significant pneumothorax is identified. New adjacent subcutaneous emphysema is seen. There is background chronic emphysematous ch rosalina with small bilateral pleural effusions. There is worsening left upper lung masslike consolidatio n. There is developing right basilar opacity. There is developing left basilar atelectasis. Cardiac s ilhouette size is stable and within normal limits. Old right lateral mid rib fractures are redemonstr ated. Underlying emphysematous change is seen. IMPRESSION: No sizable pneumothorax with right apical chest tube in place on current study. There is background chronic emphysematous change with increasing masslike consolidation left upper lobe and ne w bibasilar atelectasis and/or infiltrate with suspected stable small bilateral pleural effusions.
--- NOTE | 2017-05-11 08:21 | PN ---
DATE OF SERVICE: 05/10/2017 ATTENDING NOTE: This patient is seen and examined by me. I reviewed the note of my nurse practitioner, Ms. Hawthorne. Discussed additional findings below. INTERVAL HISTORY: This patient presented with large pneumothorax on the right side. Had a Pleurovac placement, lung re-expanded. Patient has pain at the Pleurovac site, some wheezing, cough, sitting up, somewhat uncomfortable. Current medications are reviewed that include nebulized bronchodilators and IV Solu-Medrol. On exam, patient afebrile. Pulse ox 98%, 96% on 5 L. LUNGS: Decreased breath sounds, low expiration wheezing. INVESTIGATIONS: Accu-Cheks are noted. ASSESSMENT: 1. Acute large pneumothorax on the right side with re-expansion of Pleurovac placement. 2. Acute severe chronic obstructive pulmonary disease exacerbation in an ex- smoker, slow to respond. PLAN: Continue with breathing treatments, IV steroids. Follow with Pulmonary. CHRISTOPHER
[2017-05-11] MEDS: busPIRone HCl 10 MG TAB PO SCH ×2 (09:24→22:08)
[2017-05-11] MEDS: CALCIUM CARB-VIT D 500MG-200UN 1 EACH TAB PO SCH ×2 (09:25→22:08)
[2017-05-11] MEDS: Acetaminophen-Codeine 300-30mg TAB PO PRN ×2 (09:25→17:21)
[2017-05-11] MEDS: CHOLECALCIFEROL 1,000 UNIT TAB PO SCH (09:25)
[2017-05-11] MEDS: MERCAPTOPURINE 50 MG TAB PO SCH (09:25)
[2017-05-11] MEDS: DILTIAZEM ORAL 60 MG TAB PO SCH ×3 (09:25→22:09)
[2017-05-11] MEDS: ENOXAPARIN 40 MG/0.4 ML SYRINGE SQ SCH (09:26)
[2017-05-11] MEDS: methylPREDNISolone SOD SUCCI 40 MG/ML 1 ML VIAL IV SCH (09:26)
[2017-05-11] MEDS: NICOTINE 21MG/24HR PATCH TRANSDERM SCH (09:26)
[2017-05-11] MEDS: MULTIVITAMINS, THERA 1 EACH TAB PO SCH (10:54)
[2017-05-11 11:31] LABS: Glucose,Whole Blood 122 mg/dL (75-99)
[2017-05-11] MEDS ORDERED: predniSONE 20 MG TAB PO SCH (12:00)
--- NOTE | 2017-05-11 12:34 | P.PN ---
<Mitzi Hawthorne - Last Filed: 05/11/17 12:35> Progress Note - Text DATE OF SERVICE: 05/11/17 PRESENTING COMPLAINT: Shortness of breath INTERVAL HISTORY: 56-year-old female with worsening shortness of breath cough or sputum production , found to have a large pneumothorax on the right side Thora vent placed with reexpansion. 05/10/2017: Patient lying in the bed, appears comfortable, does complain of right chest wall chest pain secondary to Thora vent placement, states that her breathing is better, although it is noted that she has a cough. Nonproductive however course cough. 05/11/2017: Patient lying in bed, appears comfortable continues to complain of right-sided chest pain secondary to Thora vent. States breathing is better, continues to cough, cough nonproductive. REVIEW OF SYSTEMS: Done for constitutional ,cardiovascular, GI, pulmonary with relevant findings as above. CURRENT MEDICATIONS [place], DuoNeb, Symbicort, Bentyl, diltiazem, melatonin, Solu-Medrol, nicotine patch. PHYSICAL EXAM VITAL SIGNS: Temperature 98.3, pulse 98, respiratory rate 16, blood pressure 106/65, oxygen saturation 100% on 4 L GENERAL APPEARANCE:. Lying in bed, not in distress. EYES: Pupils equal. Conjunctiva normal. NECK: JVD not raised. Mass not palpable. RESPIRATORY: Respiratory effort increased. Decreased breath sounds. Thora vent in place CARDIOVASCULAR: First and second sounds normal. No edema. ABDOMEN: Soft. Liver and spleen not palpable. No tenderness. No mass palpable. PSYCHIATRY: Alert and oriented x3. Mood and affect normal. INVESTIGATIONS: White blood cell count 17.0, Accu-Cheks noted. ASSESSMENT: -Acute large pneumothorax in a COPD patient with no evidence of pneumothorax on chest x-ray, with thora-vent in place improving -Acute severe COPD exacerbation in ex-smoker -GERD -Primary osteoarthritis multiple joints bilateral -Chronic Crohn's disease ulcerative colitis leading to ileostomy following a colectomy -Hiatal hernia Anxiety not otherwise specified PLAN: No evidence of pneumothorax on chest x-ray this morning, await pulmonology input. Thora vent may be removed later today. Plan of care discussed with patient and she is agreeable. We'll continue to monitor closely. 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 Austin <Lokesh Austin - Last Filed: 05/11/17 16:47> Progress Note - Text Attending note. Date of service-05/11/2017 This patient was seen and examined by me . I reviewed the note of my nurse practitioner, Ms. Hawthorne. Discussed with her, additional findings as below. Patient admitted with right-sided pneumothorax had a thora- vent placed, and the lung expanded. Some pain at the insertion site. Overall breathing and wheezing is better On examination: Lungs decreased breath sounds and wheezing, pulse ox 97% on 2 L Investigations: White count 17, potassium 3.8 Assessment and plan: Acute large pneumothorax on the right side responded well to Tthora-went, but lung reexpanded. COPD exacerbation was improving. Await further input from pulmonary. Will switch patient IV Solu-Medrol to by mouth prednisone. Care was discussed with the patient
--- NOTE | 2017-05-11 12:54 | P.PN ---
Subjective Principal diagnosis: Right-sided spontaneous pneumothorax. This is a very pleasant 56-year-old female patient who has a history of chronic obstructive pulmonary disease, fiber myalgia, GERD, GI bleed, as her arthritis, hiatal hernia, osteoporosis, arthritis. She follows with Dr. Mistry in our office for her COPD. She is maintained on Breo, Tudorza, pro-air and albuterol inhalations. Unfortunately patient does continue to smoke however has been trying to quit since January. She had presented here yesterday after developing a acute onset of right-sided chest pain and shortness of breath. She was found to have a significant right-sided pneumothorax. She is status post Dura-Vent placement. Today's chest x-ray shows near complete expansion of the right lung. She is breathing quite a bit easier today as compared to yesterday. She is maintaining good O2 saturations in the mid to upper 90s on 5 L/m per nasal cannula. She's hemodynamically stable. Afebrile. The patient is seen again today 05/11/2017 in follow-up on the selective care unit. She is awake and alert in no acute distress. She is breathing easier today as compared to yesterday. Today's chest x-ray shows no sizable pneumothorax. There is some atelectatic changes bilaterally and noted in the left upper lobe. She is maintaining good O2 saturations in the upper 90s on 2 L /m per nasal cannula. She has been up ambulating without significant dyspnea. Objective - Vital Signs Vital signs: Vital Signs Temp 98.3 F 05/11/17 09:00 Pulse 72 05/11/17 12:03 Resp 16 05/11/17 11:02 BP 117/62 05/11/17 10:59 Pulse Ox 97 05/11/17 11:56 Intake & Output 05/10/17 05/11/17 05/11/17 18:59 06:59 18:59 Intake Total 490 200 Output Total 400 Balance 490 -400 200 Weight 47.8 kg Intake: IV 10 0.9 10 Oral 480 200 Output: Urine 400 Other: Voiding Method Toilet Toilet Toilet # Voids 1 1 # Bowel Movements 1 - Exam GENERAL EXAM: Alert, fairly comfortable in no apparent distress. HEAD: Normocephalic. EYES: Normal reaction of pupils, equal size. NOSE: Clear with pink turbinates. THROAT: No erythema or exudates. NECK: No masses, no JVD. CHEST: No chest wall deformity. LUNGS: Equal air entry with no crackles, wheeze, rhonchi or dullness. Diminished. CVS: S1 and S2 normal with no audible mumurs, regular rhythm. ABDOMEN: No hepatosplenomegaly, normal bowel sounds, no guarding or rigidity. Extremities: There is no significant peripheral edema. No clubbing, no cyanosis. Peripheral pulses are intact. - Labs CBC & Chem 7: 05/11/17 05:54 05/11/17 05:54 Labs: Abnormal Lab Results - Last 24 Hours (Table) 05/10/17 05/10/17 05/11/17 Range/Units 17:00 21:06 05:54 WBC 17.0 H (3.8-10.6) k/uL RBC 3.59 L (3.80-5.40) m/uL Neutrophils # 16.2 H (1.3-7.7) k/uL Lymphocytes # 0.3 L (1.0-4.8) k/uL Chloride (98-107) mmol/L BUN (7-17) mg/dL Glucose (74-99) mg/dL POC Glucose (mg/dL) 130 H 197 H (75-99) mg/dL 05/11/17 05/11/17 05/11/17 Range/Units 05:54 05:57 11:29 WBC (3.8-10.6) k/uL RBC (3.80-5.40) m/uL Neutrophils # (1.3-7.7) k/uL Lymphocytes # (1.0-4.8) k/uL Chloride 108 H (98-107) mmol/L BUN 18 H (7-17) mg/dL Glucose 131 H (74-99) mg/dL POC Glucose (mg/dL) 146 H 122 H (75-99) mg/dL Assessment and Plan Plan: Impression: #1 Acute right-sided spontaneous pneumothorax status post Thor-A-Vent placement. #2 Chronic obstructive pulmonary disease. #3 Chronic and ongoing tobacco dependence. #4 Fibromyalgia. #5 Arthritis. #6 Osteoarthritis. #7 Hiatal hernia. #8 History of GI bleed. #9 Gastroesophageal reflux disease. Plan: The patient was seen and evaluated by Dr. Meza. She is improved today as compared to yesterday. Her chest x-ray shows complete re expansion. The final event could be removed. She is again encouraged regarding increased use of the incentive spirometer. There is noted atelectatic changes on today's chest x- ray. She is again educated regarding the importance of complete smoking cessation. Habitrol patch remains in place. Will increase her activity as tolerated. In the interim we'll continue with her current medications including Symbicort and DuoNeb's. We'll increase her activity as tolerated. We 'll continue to follow.
[2017-05-11 16:57] LABS: Glucose,Whole Blood 147 mg/dL (75-99)
[2017-05-11 21:11] LABS: Glucose,Whole Blood 178 mg/dL (75-99)
[2017-05-11] MEDS: MELATONIN 3 MG TABLET PO SCH (22:09)
[2017-05-12] MEDS: HYDROcodone/APAP 7.5-325MG 1 EACH TAB PO PRN ×2 (02:13→09:37)
[2017-05-12 06:09] LABS: Glucose,Whole Blood 109 mg/dL (75-99)
[2017-05-12] MEDS: INSULIN LISPRO (humaLOG) 300 UNIT/3 ML VIAL SQ SCH ×2 (06:29→11:59)
[2017-05-12 06:30] LABS: Basophils % (A) 0 %; CH 32.2; CHCM 32.2; Eosinophils % (A) 0 %; HCT 36.2 % (34.0-46.0); HDW 2.89; HGB 12.1 gm/dL (11.4-16.0); Luc # (Auto) 0.11; Luc % (Auto) 1; Lymphocytes # (A) 0.7 k/uL (1.0-4.8); Lymphocytes % (A) 4 %; MCH 33.6 pg (25.0-35.0); MCHC 33.4 g/dL (31.0-37.0); MCV 100.5 fL (80.0-100.0); Macrocytosis Slight; Mean Platelet Volume 7.4; Monocytes # (A) 0.8 k/uL (0-1.0); Monocytes % (A) 5 %; Neutrophils # (A) 14.9 k/uL (1.3-7.7); Neutrophils % (A) 90 %; RDW 15.2 % (11.5-15.5); WBC 16.5 k/uL (3.8-10.6); WBC (Perox) 16.67
[2017-05-12 06:42] LABS: Anion Gap 6 mmol/L; Blood Urea Nitrogen 23 mg/dL (7-17); Calcium 8.9 mg/dL (8.4-10.2); Carbon Dioxide 30 mmol/L (22-30); Chloride 105 mmol/L (98-107); Glucose 101 mg/dL (74-99); Non-African American GFR(MDRD) >60 (>60 ml/min/1.73 sqM); Potassium 3.8 mmol/L (3.5-5.1); Sodium 141 mmol/L (137-145)
[2017-05-12] MEDS: SYMBICORT 160-4.5 MCG INHALER INHALATION SCH (07:24)
[2017-05-12] MEDS: IPRATROPIUM-ALBUTEROL 3 ML NEB INHALATION SCH ×4 (07:24→13:37)
[2017-05-12] MEDS ORDERED: predniSONE 20 MG TAB PO SCH (09:00)
[2017-05-12] MEDS: OPIUM 10 MG/ML PO SCH ×2 (09:36→15:05)
[2017-05-12] MEDS: ENOXAPARIN 40 MG/0.4 ML SYRINGE SQ SCH (09:38)
[2017-05-12] MEDS: NICOTINE 21MG/24HR PATCH TRANSDERM SCH (09:38)
[2017-05-12] MEDS: CALCIUM CARB-VIT D 500MG-200UN 1 EACH TAB PO SCH (09:39)
[2017-05-12] MEDS: CHOLECALCIFEROL 1,000 UNIT TAB PO SCH (09:39)
[2017-05-12] MEDS: DICYCLOMINE 10 MG CAP PO SCH ×2 (09:39→12:00)
[2017-05-12] MEDS: busPIRone HCl 10 MG TAB PO SCH (09:39)
[2017-05-12] MEDS: DILTIAZEM ORAL 60 MG TAB PO SCH ×2 (09:39→15:05)
[2017-05-12] MEDS: MERCAPTOPURINE 50 MG TAB PO SCH (09:40)
[2017-05-12 09:56] VITALS: RESP 16; TEMP 97.6
--- NOTE | 2017-05-12 10:21 | XR ---
EXAMINATION TYPE: XR chest 2V DATE OF EXAM: 05/12/2017 COMPARISON: 05/11/2017 HISTORY: 56-year-old female follow-up status post pleural catheter removal TECHNIQUE: Frontal and lateral views FINDINGS: Heart is normal size. Aorta and pulmonary vasculature are within normal limits. Right-sided pleural c atheter removed in the interval. Residual subcutaneous air along the right hemithorax. There trace ef fusions. A small right apical pneumothorax is demonstrated, estimated at 5-10%. Redemonstrated focal opacity at the left upper lung. IMPRESSION: 1. Small right apical pneumothorax estimated at 5-10%. 2. Trace effusions. 3. Stable focal left upper lobe opacity. Underlying infiltrate or mass are both considerations.
[2017-05-12 11:10] VITALS: BMI 19.5
[2017-05-12 11:54] LABS: Glucose,Whole Blood 113 mg/dL (75-99)
[2017-05-12] MEDS: MULTIVITAMINS, THERA 1 EACH TAB PO SCH (11:59)
[2017-05-12] MEDS: Acetaminophen-Codeine 300-30mg TAB PO PRN (11:59)
[2017-05-12 12:01] VITALS: BP 145/77
--- NOTE | 2017-05-12 13:13 | P.PN ---
Subjective Progress note dated 05/12/2017 D6-year-old female history of underlying COPD. She also has a history of GI bleeding gastroesophageal reflux disease arthritis I will hernia osteoporosis. The patient sees one of my partners in the office. She presented to the emergency department with a spontaneous right-sided pneumothorax and had a Thora -vent placed. It was done by the ER doctor. Yesterday she had a removed by one of the cardiothoracic individuals. She is doing well now. She has a chest x-ray today shows a very tiny right apical pneumothorax maybe 5%. She is asymptomatic feeling much better. She able to go home from our perspective. I'm not sure that she will be discharged home by from the pulmonary perspective she could be discharged. Again feeling much better. I've counseled her about the importance of smoking cessation about the factors with a 25% recurrence rate of 25 % pneumothorax and he can occur on the same side of the opposite side. Objective - Vital Signs Vital signs: Vital Signs Temp 97.6 F 05/12/17 08:00 Pulse 100 05/12/17 12:00 Resp 16 05/12/17 12:00 BP 145/77 05/12/17 12:00 Pulse Ox 95 05/12/17 12:00 Intake & Output 05/11/17 05/12/17 05/12/17 18:59 06:59 18:59 Intake Total 490 10 236 Output Total 300 Balance 490 -290 236 Weight 48.4 kg 48.4 kg Intake: IV 10 0.9 10 Oral 490 236 Output: Stool 300 Other: Voiding Method Toilet Toilet Toilet # Voids 2 2 - Exam No acute distress, oriented 3. HEENT examination is grossly unremarkable. Mucous membranes are moist. No oral lesions. Neck supple. Full range of motion. No adenopathy or thyromegaly. Cardiovascular examination reveals regular rhythm rate. S1-S2 normal. No S3- S4. No murmur. Lungs reveal relatively clear breath sounds. A few scattered rhonchi. No wheezes or crackles. Abdomen soft bowel sounds are heard. No masses or tenderness. Extremities are intact. No cyanosis clubbing or edema. Skin without rash. Neurologic examination is nonfocal. - Labs CBC & Chem 7: 05/12/17 06:06 05/12/17 06:06 Labs: Abnormal Lab Results - Last 24 Hours (Table) 05/11/17 05/11/17 05/12/17 Range/Units 16:55 21:10 06:06 WBC 16.5 H (3.8-10.6) k/uL RBC 3.60 L (3.80-5.40) m/uL MCV 100.5 H (80.0-100.0) fL Neutrophils # 14.9 H (1.3-7.7) k/uL Lymphocytes # 0.7 L (1.0-4.8) k/uL BUN (7-17) mg/dL Glucose (74-99) mg/dL POC Glucose (mg/dL) 147 H 178 H (75-99) mg/dL 05/12/17 05/12/17 05/12/17 Range/Units 06:06 06:08 11:50 WBC (3.8-10.6) k/uL RBC (3.80-5.40) m/uL MCV (80.0-100.0) fL Neutrophils # (1.3-7.7) k/uL Lymphocytes # (1.0-4.8) k/uL BUN 23 H (7-17) mg/dL Glucose 101 H (74-99) mg/dL POC Glucose (mg/dL) 109 H 113 H (75-99) mg/dL Assessment and Plan (1) Acute exacerbation of chronic obstructive airways disease Status: Acute (2) COPD exacerbation Status: Acute (3) Pneumothorax, right Status: Acute Plan: Plan dated 05/12/2017 The patient could be discharged home from the pulmonary standpoint. She is a follow with my partner in the office. We'll make sure she has an appointment. We counseled her about the importance of smoking cessation. We also told her that there is a 25% chance of recurrence of pneumothorax either on the same side of the contralateral side. Additional recommendations and suggestions are forthcoming. Time with Patient: Less than 30
[2017-05-12] MEDS ORDERED: ADALIMUMAB 80 MG/1.6 ML KIT SQ SCH (13:17)
[2017-05-12 13:44] VITALS: PULSE 92
--- NOTE | 2017-05-12 18:33 | P.DS ---
<Mitzi Hawthorne - Last Filed: 05/12/17 18:16> Providers Date of admission: 05/09/17 01:40 Expected date of discharge: 05/12/17 Attending physician: Lokesh Austin Consults: 05/09/17 03:56 Consult Physician Routine Consulting Provider: Jazmine Mistry Consult Reason/Comments: copd,ptx Do you want consulting provider notified?: Yes Primary care physician: Stated None Hospital Course: FINAL DIAGNOSES: -Acute large pneumothorax in a COPD patient with no evidence of pneumothorax on chest x-ray, with thora-vent in place -Acute severe COPD exacerbation in ex-smoker -GERD -Primary osteoarthritis multiple joints bilateral -Chronic Crohn's disease ulcerative 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 Chest x-ray revealed large pneumothorax on the right,, pedal aspiration was attempted without success therefore a Thora vent was placed with reexpansion, patient was admitted, pulmonology consulted, home meds reordered, nebulized bronchodilators , IV steroids initiated. Patient's lung reexpanded, per chest x-ray, Thora vent removed, chest x-ray revealed about a 5% pneumothorax, patient breathing easier, no shortness of breath, cough continues however improved. Patient tolerating her diet, ambulatory in the davies, not requiring oxygen. Patient should follow-up with primary care provider Dr. Scott and Dr. Meza in a week.. PHYSICAL EXAM: CARDIOVASCULAR: First and second sounds noted no edema, RESPIRATORY: Respiratory effort normal, lungs diminished bilaterally to the bases, clear to the upper lobes. GI: Abdomen soft nontender right lower quadrant has ostomy appliance secondary to Crohn's disease. MUSKULOSKELETAL: Ambulatory in the hallway, able to move all 4 extremities. Patient was seen and examined by nurse practitioner Mitzi Hawthorne in all elements of the case discussed with attending Dr. Austin DISPOSITION: Discharge home to the care of her family Pertinent Studies: Chest x-ray: Small right apical pneumothorax estimated 5-10%, trace effusions, stable left focal upper lobe opacity, underlying infiltrate or mass are both considerations. Patient Condition at Discharge: Stable Plan - Discharge Summary New Discharge Prescriptions: New Melatonin 3 mg PO HS tab Nicotine 21Mg/24Hr Patch [Habitrol] 1 patch TRANSDERM DAILY patch predniSONE See Taper PO DAILY #30 tab Continue Adalimumab [Humira Pen] 40 mg SQ FR Acetaminophen-Codeine 300-30mg [Tylenol w/codeine #3] 2 tab PO Q6H PRN PRN Reason: Pain Opium Tincture 2 ml PO QID Multivitamins, Thera [Multivitamin (formulary)] 1 tab PO DAILY Calcium Carb-Vit D 500Mg-200Un [Oscal 500+D] 1 tab PO BID Mercaptopurine [Purinethol] 100 mg PO DAILY Denosumab [Prolia] 60 mg SQ Q180D busPIRone HCl [Buspar] 20 mg PO BID Diltiazem HCl 60 mg PO TID Cyanocobalamin [Vitamin B-12 Injection] 1,000 mcg SQ QMONTH Dicyclomine [Bentyl] 10 mg PO QID Cholecalciferol [Vitamin D3] 3,000 unit PO DAILY Discontinued predniSONE [predniSONE] See Taper PO DAILY No Action Aclidinium [place] [Tudorza Pressair] 400 mcg INHALATION RT-BID Fluticasone/Vilanterol [Breo Ellipta 100-25 Mcg Inhaler] 1 puff INHALATION RT -DAILY Albuterol Sulfate [Proair Hfa] 2 puff INHALATION RT-QID PRN PRN Reason: Shortness Of Breath Ipratropium-Albuterol Nebulize [Duoneb 0.5 mg-3 mg/3 ml Soln] 3 ml INHALATION RT-QID neb Albuterol Sulfate [Proair Hfa] 2 puff INHALATION RT-Q6H PRN PRN Reason: Shortness Of Breath Hydrocodone/Acetaminophen [Vicodin Es 7.5-300 mg Tablet] 1 tab PO TID Discharge Medication List Aclidinium [place] [Tudorza Pressair] 400 mcg INHALATION RT-BID 06/21/14 [ History] Adalimumab [Humira Pen] 40 mg SQ FR 06/21/14 [History] Acetaminophen-Codeine 300-30mg [Tylenol w/codeine #3] 2 tab PO Q6H PRN 08/18/14 [History] Calcium Carb-Vit D 500Mg-200Un [Oscal 500+D] 1 tab PO BID 04/27/16 [History] Fluticasone/Vilanterol [Breo Ellipta 100-25 Mcg Inhaler] 1 puff INHALATION RT- DAILY 04/27/16 [History] Multivitamins, Thera [Multivitamin (formulary)] 1 tab PO DAILY 04/27/16 [History ] Opium Tincture 2 ml PO QID 04/27/16 [History] Mercaptopurine [Purinethol] 100 mg PO DAILY 02/22/17 [History] Albuterol Sulfate [Proair Hfa] 2 puff INHALATION RT-QID PRN 03/18/17 [History] Ipratropium-Albuterol Nebulize [Duoneb 0.5 mg-3 mg/3 ml Soln] 3 ml INHALATION RT -QID neb 03/22/17 [Rx] Albuterol Sulfate [Proair Hfa] 2 puff INHALATION RT-Q6H PRN 05/09/17 [History] Cholecalciferol [Vitamin D3] 3,000 unit PO DAILY 05/09/17 [History] Cyanocobalamin [Vitamin B-12 Injection] 1,000 mcg SQ QMONTH 05/09/17 [History] Denosumab [Prolia] 60 mg SQ Q180D 05/09/17 [History] Dicyclomine [Bentyl] 10 mg PO QID 05/09/17 [History] Diltiazem HCl 60 mg PO TID 05/09/17 [History] Hydrocodone/Acetaminophen [Vicodin Es 7.5-300 mg Tablet] 1 tab PO TID 05/09/17 [ History] busPIRone HCl [Buspar] 20 mg PO BID 05/09/17 [History] Melatonin 3 mg PO HS tab 05/11/17 [Rx] Nicotine 21Mg/24Hr Patch [Habitrol] 1 patch TRANSDERM DAILY patch 05/11/17 [Rx] predniSONE See Taper PO DAILY #30 tab 05/12/17 [Rx] Follow up Appointment(s)/Referral(s): Tacho Scott MD [STAFF PHYSICIAN] - 3 Days Michael Meza DO [Doctor of Osteopathic Medicine] - 05/22/17 10:30 am Ambulatory/Diagnostic Orders: Basic Metabolic Panel [LAB.AMB] Location: Determined By Patient Basic Metabolic Panel [LAB.AMB] Location: Determined By Patient Complete Blood Count w/diff [LAB.AMB] Location: Determined By Patient Complete Blood Count w/diff [LAB.AMB] Location: Determined By Patient Patient Instructions/Handouts: Spontaneous Pneumothorax (DC), COPD (Chronic Obstructive Pulmonary Disease) (DC) Activity/Diet/Wound Care/Special Instructions: Patient need only to get one CBC and one BMP. Discharge Disposition: HOME SELF-CARE <Lokesh Austin - Last Filed: 05/12/17 19:21> Hospital Course: Addendum to discharge summary: Attending note. Date of service-05/12/2017 This patient was seen and examined by me . I reviewed the note of my nurse practitioner, Ms. Hawthorne. Discussed with her, additional findings as below. -Acute large pneumothorax on the right side in a patient with COPD and ex-smoker -Acute COPD exacerbation On examination: Lungs-improve entry, mild wheezing, patient comfortable Investigations: Assessment and plan: This patient presented large pneumothorax on the right side and COPD exacerbation. Had a Thora VAC in place. Lung expanded well. The former was taken out. Doing well care was discussed with the patient. Advised to stay off smoking.
== END 2017-05-12 15:30 | disposition home or self-care (01) | DRG 200 ==
LOC: EC 23:32 → 6SEL 05-09 01:40
PROVIDERS: ADMIT Hospitalist; ATTEND Hospitalist
DX: J93.83 Other pneumothorax (principal); J44.1 Chronic obstructive pulmonary disease with (acute) exacerbation; K50.90 Crohn's disease, unspecified, without complications; F17.200 Nicotine dependence, unspecified, uncomplicated; F41.9 Anxiety disorder, unspecified; K21.9 Gastro-esophageal reflux disease without esophagitis; K44.9 Diaphragmatic hernia without obstruction or gangrene; M15.9 Polyosteoarthritis, unspecified; M79.7 Fibromyalgia; M81.0 Age-related osteoporosis without current pathological fracture; Z79.899 Other long term (current) drug therapy; Z80.8 Family history of malignant neoplasm of other organs or systems; Z82.5 Family history of asthma and other chronic lower respiratory diseases; Z82.62 Family history of osteoporosis; Z88.2 Allergy status to sulfonamides; Z88.6 Allergy status to analgesic agent; Z91.041 Radiographic dye allergy status
CPT/HCPCS: 36415; 71010; 71020; 80048; 80053; 82550; 82553; 83036; 83735; 83880; 84484; 85025; 85610; 85730; 93005; 94640; 94660; 94760

== ENCOUNTER 2017-05-19 20:08 | Inpatient (IN) | payer BC ==
[2017-05-19] MEDS ORDERED: MORPHINE SULFATE 4 MG/ML SYRINGE IVP STA ×2 (20:24→21:22)
--- NOTE | 2017-05-19 20:28 | XR ---
EXAMINATION TYPE: XR chest 1V DATE OF EXAM: 05/19/2017 COMPARISON: 05/12/2017 HISTORY: Follow-up pneumothorax. Chest pain. TECHNIQUE: Single frontal view of the chest is obtained. FINDINGS: There is an approximate 70% right pneumothorax. Heart is in the midline. There is atelecta sis in the right lung. There is subcutaneous emphysema on the right lateral chest wall. There are old right-sided healed rib fractures. There is patchy atelectasis and infiltrate in the left lung. Ther e are chest leads. IMPRESSION: Large right pneumothorax is significantly increased in size compared to last exam. No si gn of tension. There is decrease in the subcutaneous emphysema compared to old exam. Stable patchy at electasis in the left lung.
[2017-05-19 20:39] LABS: Anisocytosis Slight; CH 33.2; CHCM 32.5; HCT 43.1 % (34.0-46.0); HDW 2.81; HGB 14.3 gm/dL (11.4-16.0); MCH 34.1 pg (25.0-35.0); MCHC 33.2 g/dL (31.0-37.0); MCV 102.5 fL (80.0-100.0); Macrocytosis Slight; Mean Platelet Volume 7.4; RDW 16.4 % (11.5-15.5); WBC 15.3 k/uL (3.8-10.6)
--- NOTE | 2017-05-19 20:48 | XR ---
EXAMINATION TYPE: XR chest 1V DATE OF EXAM: 05/19/2017 COMPARISON: Today HISTORY: Short of breath TECHNIQUE: Single frontal view of the chest is obtained. FINDINGS: There is a right chest tube that appears in good position. There is an approximate 40% rig ht pneumothorax. IMPRESSION: Right pneumothorax is decreased compared to last exam. Trachea is midline. I see no comp licating process.
[2017-05-19 20:52] LABS: ALT 89 U/L (9-52); AST 24 U/L (14-36); Alkaline Phosphatase 96 U/L (38-126); Anion Gap 7 mmol/L; Blood Urea Nitrogen 22 mg/dL (7-17); Calcium 9.9 mg/dL (8.4-10.2); Carbon Dioxide 33 mmol/L (22-30); Chloride 102 mmol/L (98-107); Glucose 107 mg/dL (74-99); Magnesium 1.7 mg/dL (1.6-2.3); Non-African American GFR(MDRD) >60 (>60 ml/min/1.73 sqM); Potassium 4.8 mmol/L (3.5-5.1); Sodium 142 mmol/L (137-145); Total Bilirubin 0.3 mg/dL (0.2-1.3); Total Protein 6.5 g/dL (6.3-8.2)
[2017-05-19 21:06] LABS: Creatine Kinase 25 U/L (30-135)
[2017-05-19 21:17] LABS: INR 0.9 (<1.2); Prothrombin Time 9.6 sec (9.0-12.0)
[2017-05-19 21:18] LABS: Creatine Kinase MB 1.8 ng/mL (0.0-2.4); Troponin I <0.012 ng/mL (0.000-0.034)
[2017-05-19 21:58] LABS: Partial Thromboplastin Time 19.8 sec (22.0-30.0)
[2017-05-19] MEDS ORDERED: NALOXONE 0.4 MG/ML 1 ML VIAL IV PRN (22:52)
--- NOTE | 2017-05-19 23:22 | ED ---
General Adult HPI - General Chief complaint: Shortness of Breath Stated complaint: Collapsed Lung Time Seen by Provider: 05/19/17 20:20 Source: patient, EMS, RN notes reviewed, old records reviewed Mode of arrival: EMS Limitations: no limitations - History of Present Illness Initial comments: 56-year-old female with history of COPD and recent history of spontaneous pneumothorax presents with sudden onset right-sided chest pain and shortness of breath. Patient was discharged several days ago after a hospital stay for spontaneous pneumothorax. Patient did have an anterior wall right-sided for event. Patient states she was doing well until approximately 30 mins prior to arrival. On initial evaluation the patient is unable to give a complete history due to severe distress. - Related Data Home Medications Medication Instructions Recorded Confirmed Aclidinium [place] [Tudorza 400 mcg INHALATION RT-BID 06/21/14 05/19/17 Pressair] Adalimumab [Humira Pen] 40 mg SQ FR 06/21/14 05/19/17 Acetaminophen-Codeine 300-30mg 2 tab PO Q6H PRN 08/18/14 05/19/17 [Tylenol w/codeine #3] Calcium Carb-Vit D 500Mg-200Un 1 tab PO BID 04/27/16 05/19/17 [Oscal 500+D] Fluticasone/Vilanterol [Breo 1 puff INHALATION RT-DAILY 04/27/16 05/19/17 Ellipta 100-25 Mcg Inhaler] Multivitamins, Thera [Multivitamin 1 tab PO DAILY 04/27/16 05/19/17 (formulary)] Opium Tincture 2 ml PO QID 04/27/16 05/19/17 Mercaptopurine [Purinethol] 100 mg PO DAILY 02/22/17 05/19/17 Albuterol Sulfate [Proair Hfa] 2 puff INHALATION RT-Q6H PRN 05/09/17 05/19/17 Cholecalciferol [Vitamin D3] 3,000 unit PO DAILY 05/09/17 05/19/17 Cyanocobalamin [Vitamin B-12 1,000 mcg SQ QMONTH 05/09/17 05/19/17 Injection] Denosumab [Prolia] 60 mg SQ Q180D 05/09/17 05/19/17 Dicyclomine [Bentyl] 10 mg PO QID 05/09/17 05/19/17 Diltiazem HCl 60 mg PO TID 05/09/17 05/19/17 Hydrocodone/Acetaminophen [Vicodin 1 tab PO TID 05/09/17 05/19/17 Es 7.5-300 mg Tablet] busPIRone HCl [Buspar] 20 mg PO BID 05/09/17 05/19/17 Previous Rx's Medication Instructions Recorded Ipratropium-Albuterol Nebulize 3 ml INHALATION RT-QID neb 03/22/17 [Duoneb 0.5 mg-3 mg/3 ml Soln] Melatonin 3 mg PO HS tab 05/11/17 Nicotine 21Mg/24Hr Patch [Habitrol] 1 patch TRANSDERM DAILY patch 05/11/17 predniSONE See Taper PO DAILY #30 tab 05/12/17 Allergies Allergy/AdvReac Type Severity Reaction Status Date / Time aspirin Allergy Unknown Verified 05/19/17 21:11 Beta-Blockers Allergy Unknown Verified 05/19/17 21:11 (Beta-Adrenergic Bloc Iodine and Iodide Containing Allergy Unknown Verified 05/19/17 21:11 Produc Sulfa (Sulfonamide Allergy Unknown Verified 05/19/17 21:11 Antibiotics) timolol [Timolol] Allergy Unknown Verified 05/19/17 21:11 Review of Systems ROS Statement: Those systems with pertinent positive or pertinent negative responses have been documented in the HPI. ROS Other: All systems not noted in ROS Statement are negative. Past Medical History Past Medical History: COPD, Fibromyalgia, GERD/Reflux, GI Bleed, Osteoarthritis (OA), Pneumonia Additional Past Medical History / Comment(s): COPD, severe with an FEV1 of 36% of predicted, crohn's, bowel obstructions, lower GI bleeds, hiatal hernia, osteoporosis, arthritis multiple joints, seasonal allergies, pneumothorax History of Any Multi-Drug Resistant Organisms: None Reported Past Surgical History: Breast Surgery, Cholecystectomy, Hernia Repair, Hysterectomy, Orthopedic Surgery Additional Past Surgical History / Comment(s): Multiple bowel surgeries including total colectomy/ileostomy, ileostomy moved/repaired, R tube and R ovary removed due toectopic , total hysterectomy, leep procedure, laparoscopy for endometriosis, L breast lumpectomy-benign, r breast core bx- benign, EGD/colonoscopies. Past Anesthesia/Blood Transfusion Reactions: No Reported Reaction Past Psychological History: No Psychological Hx Reported Smoking Status: Former smoker Past Alcohol Use History: None Reported Past Drug Use History: None Reported - Past Family History Mother Family Medical History: Cancer, COPD Additional Family Medical History / Comment(s): Skin cancer and osteoporosis. Father Family Medical History: Dementia Additional Family Medical History / Comment(s): Father is 90yrs old. General Exam Limitations: no limitations General appearance: alert, in distress Head exam: Present: atraumatic, normocephalic Eye exam: Present: normal appearance, PERRL ENT exam: Present: normal exam, mucous membranes moist Neck exam: Present: normal inspection, full ROM Respiratory exam: Present: respiratory distress, decreased breath sounds (On the right) Cardiovascular Exam: Present: normal rhythm, tachycardia GI/Abdominal exam: Present: soft. Absent: distended, tenderness Extremities exam: Present: normal inspection, normal capillary refill. Absent: pedal edema Neurological exam: Present: alert, oriented X3 Psychiatric exam: Present: normal affect, normal mood Skin exam: Present: warm, dry Course Vital Signs 05/19/17 05/19/17 05/19/17 20:09 20:36 21:46 Temperature 97.3 F L Pulse Rate 122 H 101 H 94 Respiratory 35 H 18 18 Rate Blood Pressure 139/98 132/91 120/85 O2 Sat by Pulse 98 99 96 Oximetry - Reevaluation(s) Reevaluation #1: 05/19/17 23:07 Right chest wall for event is placed, after initial placement the patient's vital signs initially improved, she is more comfortable not dyspneic. EKG Findings - EKG Comments: EKG Findings:: EKG shows sinus tachycardia with a ventricular rate of 118,. 136 , QRS duration 62, QTC is 417 Procedures - Chest Tube Insertion Consent Obtained: verbal consent Time Out Performed: Yes Side of Procedure: right Indication: Pneumothorax Placed on monitor/pulse oximetry: Yes Site Prep: Povidone-Iodine Local Anesthesia: Lidocaine 1% Amount (mLs): 5 Insertion Site: Other (Midclavicular, second intercostal space) Scalpel: #11 Open into Pleural Space Using: Trocar Tube Size (Khmer): Other (11-Khmer) Returns: Air Sutured in Place: No Dressing Applied: Tape Attached to Suction: No Repeat X-ray Results: Lung Inflated Patient Tolerated Procedure: well Medical Decision Making - Medical Decision Making 56-year-old female presenting with sudden onset shortness of breath. Patient has recent history of spontaneous pneumothorax, she had a Proventil placed which was removed and she was recently discharged. Prior to arrival approximately 30 minutes patient had acute onset chest pain shortness of breath. My initial evaluation patient is in severe distress, on a nonrebreather , heart rate in the 130s, blood pressure is stable. Auscultation of the right chest wall reveals absent breath sounds. Bedside chest x-ray shows right-sided pneumothorax. Right chest wall for event is placed. Patient tolerates the procedure well. There is immediate evacuation of air. Repeat chest x-ray shows 30% reduction in pneumothorax. Patient's heart rate improves to the 90s. Shortness of breath immediately improves. For event is evacuating pneumothorax appropriately. Patient will be admitted for pulmonary evaluation. Repeat chest x-ray is ordered for the morning. Diagnosis: Recurrent spontaneous pneumothorax - Lab Data Result diagrams: 05/19/17 20:24 05/19/17 20:24 Lab Results 05/19/17 05/19/17 05/19/17 Range/Units 20:24 20:24 20:24 WBC 15.3 H (3.8-10.6) k/uL RBC 4.20 (3.80-5.40) m/uL Hgb 14.3 (11.4-16.0) gm/dL Hct 43.1 (34.0-46.0) % MCV 102.5 H (80.0-100.0) fL MCH 34.1 (25.0-35.0) pg MCHC 33.2 (31.0-37.0) g/dL RDW 16.4 H (11.5-15.5) % Plt Count 319 (150-450) k/uL Anisocytosis Slight Macrocytosis Slight PT (9.0-12.0) sec INR (<1.2) APTT (22.0-30.0) sec D-Dimer (<0.60) mg/L FEU Sodium 142 (137-145) mmol/L Potassium 4.8 (3.5-5.1) mmol/L Chloride 102 (98-107) mmol/L Carbon Dioxide 33 H (22-30) mmol/L Anion Gap 7 mmol/L BUN 22 H (7-17) mg/dL Creatinine 0.78 (0.52-1.04) mg/dL Est GFR (MDRD) Af Amer >60 (>60 ml/min/1.73 sqM) Est GFR (MDRD) Non-Af >60 (>60 ml/min/1.73 sqM) Glucose 107 H (74-99) mg/dL Calcium 9.9 (8.4-10.2) mg/dL Magnesium 1.7 (1.6-2.3) mg/dL Total Bilirubin 0.3 (0.2-1.3) mg/dL AST 24 (14-36) U/L ALT 89 H (9-52) U/L Alkaline Phosphatase 96 (38-126) U/L Total Creatine Kinase (30-135) U/L CK-MB (CK-2) (0.0-2.4) ng/mL CK-MB (CK-2) Rel Index Troponin I (0.000-0.034) ng/mL Total Protein 6.5 (6.3-8.2) g/dL Albumin 4.2 (3.5-5.0) g/dL Blood Type O Positive Blood Type Recheck O Pos Antibody Screen NEGATIVE Spec Expiration Date 05/22/2017232305/19/17 05/19/17 Range/Units 20:24 20:24 WBC (3.8-10.6) k/uL RBC (3.80-5.40) m/uL Hgb (11.4-16.0) gm/dL Hct (34.0-46.0) % MCV (80.0-100.0) fL MCH (25.0-35.0) pg MCHC (31.0-37.0) g/dL RDW (11.5-15.5) % Plt Count (150-450) k/uL Anisocytosis Macrocytosis PT 9.6 (9.0-12.0) sec INR 0.9 (<1.2) APTT 19.8 L (22.0-30.0) sec D-Dimer 0.35 (<0.60) mg/L FEU Sodium (137-145) mmol/L Potassium (3.5-5.1) mmol/L Chloride (98-107) mmol/L Carbon Dioxide (22-30) mmol/L Anion Gap mmol/L BUN (7-17) mg/dL Creatinine (0.52-1.04) mg/dL Est GFR (MDRD) Af Amer (>60 ml/min/1.73 sqM) Est GFR (MDRD) Non-Af (>60 ml/min/1.73 sqM) Glucose (74-99) mg/dL Calcium (8.4-10.2) mg/dL Magnesium (1.6-2.3) mg/dL Total Bilirubin (0.2-1.3) mg/dL AST (14-36) U/L ALT (9-52) U/L Alkaline Phosphatase (38-126) U/L Total Creatine Kinase 25 L (30-135) U/L CK-MB (CK-2) 1.8 (0.0-2.4) ng/mL CK-MB (CK-2) Rel Index 7.2 Troponin I <0.012 (0.000-0.034) ng/mL Total Protein (6.3-8.2) g/dL Albumin (3.5-5.0) g/dL Blood Type Blood Type Recheck Antibody Screen Spec Expiration Date Critical Care Time Critical Care Time: Yes Total Critical Care Time: 35 Disposition Clinical Impression: Pneumothorax Disposition: ADMITTED IP TO THIS [facility] Condition: Stable Referrals: None,Stated [Primary Care Provider] - 1-2 days Decision to Admit Reason: Admit from EC Decision Date: 05/19/17 Decision Time: 22:30
[2017-05-19] MEDS: MORPHINE SULFATE 4 MG/ML SYRINGE IV PRN (23:44)
[2017-05-20] MEDS: DEXTROSE 5%-0.45% NACL 1,000 ML IV SCH ×3 (03:31→21:25)
[2017-05-20] MEDS: MORPHINE SULFATE 4 MG/ML SYRINGE IV PRN ×5 (03:31→20:59)
[2017-05-20 07:18] LABS: Anion Gap 5 mmol/L; Blood Urea Nitrogen 17 mg/dL (7-17); Calcium 8.5 mg/dL (8.4-10.2); Carbon Dioxide 30 mmol/L (22-30); Chloride 105 mmol/L (98-107); Glucose 86 mg/dL (74-99); Non-African American GFR(MDRD) >60 (>60 ml/min/1.73 sqM); Potassium 3.7 mmol/L (3.5-5.1); Sodium 140 mmol/L (137-145)
[2017-05-20 07:45] LABS: Basophils % (A) 0 %; CH 31.9; CHCM 31.6; Eosinophils # (A) 0.1 k/uL (0-0.7); Eosinophils % (A) 1 %; HCT 36.4 % (34.0-46.0); HDW 2.84; Hypochromasia Slight; Luc # (Auto) 0.18; Luc % (Auto) 2; Lymphocytes # (A) 2.6 k/uL (1.0-4.8); Lymphocytes % (A) 21 %; MCH 33.5 pg (25.0-35.0); MCV 101.3 fL (80.0-100.0); Macrocytosis Slight; Mean Platelet Volume 7.1; Monocytes # (A) 0.6 k/uL (0-1.0); Monocytes % (A) 5 %; Neutrophils # (A) 8.8 k/uL (1.3-7.7); Neutrophils % (A) 72 %; RDW 15.3 % (11.5-15.5); WBC 12.2 k/uL (3.8-10.6); WBC (Perox) 12.13
--- NOTE | 2017-05-20 08:16 | XR ---
EXAMINATION TYPE: XR chest 1V DATE OF EXAM: 05/20/2017 HISTORY: Shortness of breath. COMPARISON: 05/19/2017 TECHNIQUE: Single view of the chest is submitted. FINDINGS: Right apical chest catheter is in place. Previously noted pneumothorax has decreased in size and is e stimated at approximately 10%. Small amount of subcutaneous air persists along the right chest wall a nd right neck. Spiculated density left suprahilar region is suspicious for malignancy. CT of the chest is advised. T here is also right suprahilar irregular density which may reflect additional mass. Demonstrated are scattered senescent parenchymal change. There is no evidence for focal infiltrate. The heart is stable. Hilar and mediastinal structures are within normal limits. Degenerative changes are seen of the dorsal spine. IMPRESSION: 1. Previously noted pneumothorax has decreased in size and is estimated at approximately 10%. 2. Recommend CT of the chest for suspected upper lobe masses.
[2017-05-20] MEDS ORDERED: DILTIAZEM ORAL 60 MG TAB PO SCH (09:00)
[2017-05-20] MEDS ORDERED: RX INFO: IV CONTRAST WAS GIVEN 1 EACH MISC MISCELLANE PRN (10:58)
[2017-05-20] MEDS ORDERED: diphenhydrAMINE 50 MG CAP PO ONE (10:59)
[2017-05-20] MEDS ORDERED: predniSONE 50 MG TAB PO ONE (10:59)
[2017-05-20] MEDS ORDERED: methylPREDNISolone SOD SUCCI 125 MG/2 ML VIAL IV STA (11:06)
[2017-05-20] MEDS ORDERED: diphenhydrAMINE 50 MG/ML 1 ML VIAL IVP STA (11:06)
[2017-05-20] MEDS ORDERED: FAMOTIDINE 20 MG/2 ML VIAL IV ONE (11:15)
[2017-05-20] MEDS ORDERED: DENOSUMAB 60 MG/ML 1 ML SYRINGE SQ SCH (12:00)
--- NOTE | 2017-05-20 12:01 | P.CNPUL ---
History of Present Illness Consult date: 05/20/17 Reason for consult: pneumothorax History of present illness: 56-year-old male patient with known history of advanced COPD with an FEV1 of 36 % of predicted along with previous hospitalizations for COPD exacerbations coming in for recurrent right-sided pneumothorax. The patient was in for the same on 05/12/2017. She was treated with a thoravent that was inserted into the right chest with successful reexpansion of the right lung. After successful expansion, the tube was removed and the patient was discharged home approximately a week ago. She was doing well and yesterday while doing some computer work at home she felt acute shortness of breath and discomfort noted right chest area and she thought she had the same problem again. Sure enough the patient presented to the ED and she was found to have a large right-sided pneumothorax and another Thoravent was inserted. We have had again successful reexpansion. Today's chest x-ray is showing minimal right apical pneumothorax. There is however extensive emphysematous changes bilaterally and there is also left upper lobe opacity and for that reason a CAT scan of the chest will be ordered with contrast. Clinically is doing well. She is hemodynamically stable. No cough or sputum production. No chest pain. No hemoptysis. No pleurisy. No major swelling lower extremities. No other complaints otherwise. Review of Systems All systems: negative Constitutional: Denies chills, Denies fever Eyes: denies blurred vision, denies pain Ears, nose, mouth and throat: Denies headache, Denies sore throat Cardiovascular: Reports chest pain, Reports decreased exercise tolerance, Reports dyspnea on exertion, Denies shortness of breath Respiratory: Reports cough, Reports dyspnea Gastrointestinal: Denies abdominal pain, Denies diarrhea, Denies nausea, Denies vomiting Genitourinary: Denies dysuria, Denies hematuria Musculoskeletal: Denies myalgias Integumentary: Denies pruritus, Denies rash Neurological: Denies numbness, Denies weakness Psychiatric: Denies anxiety, Denies depression Endocrine: Denies fatigue, Denies weight change Past Medical History Past Medical History: COPD, Fibromyalgia, GERD/Reflux, GI Bleed, Osteoarthritis (OA), Pneumonia Additional Past Medical History / Comment(s): COPD, severe with an FEV1 of 36% of predicted, right-sided pneumothorax there has become a recurrent problem, crohn's, bowel obstructions, lower GI bleeds, hiatal hernia, osteoporosis, arthritis multiple joints, seasonal allergies History of Any Multi-Drug Resistant Organisms: None Reported Past Surgical History: Breast Surgery, Cholecystectomy, Hernia Repair, Hysterectomy, Orthopedic Surgery Additional Past Surgical History / Comment(s): Multiple bowel surgeries including total colectomy/ileostomy, ileostomy moved/repaired, R tube and R ovary removed due toectopic , total hysterectomy, leep procedure, laparoscopy for endometriosis, L breast lumpectomy-benign, r breast core bx- benign, EGD/colonoscopies. Past Anesthesia/Blood Transfusion Reactions: No Reported Reaction Past Psychological History: No Psychological Hx Reported Additional Psychological History / Comment(s): Pt currently is staying with her 90 yr old father who has dementia. Her spouse is staying at their home to care for the dogs. 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 She is independent. Smoking Status: Former smoker Past Alcohol Use History: None Reported Additional Past Alcohol Use History / Comment(s): smoker since age 17. pt states she has not smoked since last admission early this month, has been using nicotine patch at home Past Drug Use History: None Reported - Past Family History Mother Family Medical History: Cancer, COPD Additional Family Medical History / Comment(s): Skin cancer and osteoporosis. Father Family Medical History: Dementia Additional Family Medical History / Comment(s): Father is 90yrs old. Medications and Allergies Home Medications Medication Instructions Recorded Confirmed Type Aclidinium [place] [Tudorza 400 mcg INHALATION RT-BID 06/21/14 05/19/17 History Pressair] Adalimumab [Humira Pen] 40 mg SQ FR 06/21/14 05/19/17 History Acetaminophen-Codeine 300-30mg 2 tab PO Q6H PRN 08/18/14 05/19/17 History [Tylenol w/codeine #3] Calcium Carb-Vit D 500Mg-200Un 1 tab PO BID 04/27/16 05/19/17 History [Oscal 500+D] Fluticasone/Vilanterol [Breo 1 puff INHALATION RT-DAILY 04/27/16 05/19/17 History Ellipta 100-25 Mcg Inhaler] Multivitamins, Thera [Multivitamin 1 tab PO DAILY 04/27/16 05/19/17 History (formulary)] Opium Tincture 2 ml PO QID 04/27/16 05/19/17 History Mercaptopurine [Purinethol] 100 mg PO DAILY 02/22/17 05/19/17 History Albuterol Sulfate [Proair Hfa] 2 puff INHALATION RT-Q6H PRN 05/09/17 05/19/17 History Cholecalciferol [Vitamin D3] 3,000 unit PO DAILY 05/09/17 05/19/17 History Cyanocobalamin [Vitamin B-12 1,000 mcg SQ QMONTH 05/09/17 05/19/17 History Injection] Denosumab [Prolia] 60 mg SQ Q180D 05/09/17 05/19/17 History Dicyclomine [Bentyl] 10 mg PO QID PRN 05/09/17 05/19/17 History Hydrocodone/Acetaminophen [Vicodin 1 tab PO TID 05/09/17 05/19/17 History Es 7.5-300 mg Tablet] busPIRone HCl [Buspar] 20 mg PO BID 05/09/17 05/20/17 History Atenolol 25 mg PO DAILY 05/20/17 05/20/17 History Allergies Allergy/AdvReac Type Severity Reaction Status Date / Time aspirin Allergy Unknown Verified 05/19/17 21:11 Beta-Blockers Allergy Unknown Verified 05/19/17 21:11 (Beta-Adrenergic Bloc Iodine and Iodide Containing Allergy Unknown Verified 05/19/17 21:11 Produc Sulfa (Sulfonamide Allergy Unknown Verified 05/19/17 21:11 Antibiotics) timolol [Timolol] Allergy Unknown Verified 05/19/17 21:11 Physical Exam Vitals: Vital Signs Temp Pulse Pulse Resp BP BP Pulse Ox 05/20/17 09:35 72 94 L 05/20/17 09:10 16 05/20/17 09:06 97.6 F 72 16 125/72 98 05/20/17 04:00 98.2 F 76 18 118/60 97 05/19/17 23:56 97.0 F L 72 18 145/85 99 05/19/17 23:47 92 18 127/85 98 05/19/17 21:46 94 18 120/85 96 05/19/17 20:36 101 H 18 132/91 99 05/19/17 20:09 97.3 F L 122 H 35 H 139/98 98 Intake and Output 05/19/17 05/20/17 05/20/17 22:59 06:59 14:59 Intake Total 300 Balance 300 Intake: IV 300 Dextrose 5%-0.45% NaCl 1, 300 000 ml @ 100 mls/hr IV . Q10H [facility] Rx#:[id number] Other: Voiding Method Toilet Toilet # Voids 1 1 # Bowel Movements 1 Weight 46.72 kg 47.2 kg Head exam was generally normal. There was no scleral icterus or corneal arcus. Mucous membranes were moist.Neck was supple and without jugular venous distension, thyromegaly, or carotid bruits. Carotids were easily palpable bilaterally. There was no adenopathy. Lung sounds are diminished bilaterally. There is no subcutaneous emphysema. There is a thoravent over the anterior chest area. No evidence of any leak from the valve attached to the thoravent.Cardiac exam revealed the PMI to be normally situated and sized. The rhythm was regular and no extrasystoles were noted during several minutes of auscultation. The first and second heart sounds were normal and physiologic splitting of the second heart sound was noted. There were no murmurs, rubs, clicks, or gallops. Abdominal exam revealed normal bowel sounds. The abdomen was soft, non-tender, and without masses, organomegaly, or appreciable enlargement of the abdominal aorta. The patient has a ileostomy.Examination of the extremities revealed easily palpable radial, femoral and pedal pulses. There was no cyanosis, clubbing or edema. Results - Laboratory Findings CBC and BMP: 05/20/17 06:33 05/20/17 06:33 PT/INR, D-dimer PT 9.6 sec (9.0-12.0) 05/19/17 20:24 INR 0.9 (<1.2) 05/19/17 20:24 D-Dimer 0.35 mg/L FEU (<0.60) 05/19/17 20:24 Abnormal lab findings: Abnormal Labs 05/19/17 05/19/17 05/19/17 20:24 20:24 20:24 WBC 15.3 H RBC MCV 102.5 H RDW 16.4 H Neutrophils # APTT 19.8 L Carbon Dioxide 33 H BUN 22 H Glucose 107 H ALT 89 H Total Creatine Kinase 05/19/17 05/20/17 20:24 06:33 WBC 12.2 H RBC 3.60 L MCV 101.3 H RDW Neutrophils # 8.8 H APTT Carbon Dioxide BUN Glucose ALT Total Creatine Kinase 25 L - Diagnostic Findings Chest x-ray: image reviewed Assessment and Plan Plan: Assessment 1 recurrent right-sided pneumothorax, secondary pneumothorax related to underlying COPD and probably bullous disease. The patient is successful expansion with insertion of a thoravent. Note that this pneumothorax occurred within a week of discharge from a similar admission for a right-sided pneumothorax. 2 COPD with bullous disease 3 left upper lobe opacity rule out underlying mass/pneumonia/fluid-filled cavity /fluid-filled bullous. CAT scan of the chest will be needed. 4 chronic dyspnea secondary to above 5 Crohn disease/inflammatory bowel disease 6 fibromyalgia 7 ileostomy 8 osteoarthritis/osteoporosis 9 history of smoking Plan Monitor the right-sided pneumothorax by obtaining daily chest x-rays. Consult CT surgery. Proceed with a CAT scan of the chest with contrast. Increase likelihood of the patient may ultimately need a surgical intervention regarding the right-sided recurrent pneumothorax. Final decision be made once the CAT scan of the chest is reviewed. Right an incentive spirometer. Adequate pain control. We'll continue to follow.
--- NOTE | 2017-05-20 12:04 | P.GSCN ---
History of Present Illness Consult date: 05/20/17 Reason for Consult: Recurrent right pleural effusion, status post thorn event for the second time, treatment recommendations. Requesting physician: Jazmine Mistry History of present illness: This 56-year-old female with a history of COPD and recent spontaneous pneumothorax presented to the emergency room yesterday with sudden onset shortness of breath and chest pain. She was discharged just a short time ago after hospital stay for a spontaneous pneumothorax that was treated with a third event with reexpansion of the lung. She states that yesterday she was sitting up in bed doing absent nothing and she suddenly became incredibly short of breath with some right-sided chest pain just like she felt before her previous pneumothorax. Chest x-ray was completed and the patient was again noted to have a large pneumothorax on the right side. A Thora-vent was placed in the emergency room with some reexpansion of the lung. In addition, chest x- rays noted a mass in the left upper lobe. Dr. Jordan was consulted for recommendations for treatment of recurrent spontaneous pneumothorax. Review of Systems 14 point review systems was completed and was negative except as noted. - Cardiovascular Reports as per HPI - Respiratory Reports as per HPI Past Medical History Past Medical History: COPD, Fibromyalgia, GERD/Reflux, GI Bleed, Osteoarthritis (OA), Pneumonia Additional Past Medical History / Comment(s): COPD, severe with an FEV1 of 36% of predicted, crohn's, bowel obstructions, lower GI bleeds, hiatal hernia, osteoporosis, arthritis multiple joints, seasonal allergies, right-sided pneumothorax History of Any Multi-Drug Resistant Organisms: None Reported Past Surgical History: Breast Surgery, Cholecystectomy, Hernia Repair, Hysterectomy, Orthopedic Surgery Additional Past Surgical History / Comment(s): Multiple bowel surgeries including total colectomy/ileostomy, ileostomy moved/repaired, R tube and R ovary removed due toectopic , total hysterectomy, leep procedure, laparoscopy for endometriosis, L breast lumpectomy-benign, r breast core bx- benign, EGD/colonoscopies. Right-sided Thora-vent placement May 09 and May 19. Past Anesthesia/Blood Transfusion Reactions: No Reported Reaction Past Psychological History: No Psychological Hx Reported Additional Psychological History / Comment(s): Pt currently is staying with her 90 yr old father who has dementia. Her spouse is staying at their home to care for the dogs. 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 She is independent. Smoking Status: Former smoker Past Alcohol Use History: None Reported Additional Past Alcohol Use History / Comment(s): smoker since age 17. pt states she has not smoked since last admission early this month, has been using nicotine patch at home Past Drug Use History: None Reported - Past Family History Mother Family Medical History: Cancer, COPD Additional Family Medical History / Comment(s): Skin cancer and osteoporosis. Father Family Medical History: Dementia Additional Family Medical History / Comment(s): Father is 90yrs old. Medications and Allergies Home Medications Medication Instructions Recorded Confirmed Type Aclidinium [place] [Tudorza 400 mcg INHALATION RT-BID 06/21/14 05/19/17 History Pressair] Adalimumab [Humira Pen] 40 mg SQ FR 06/21/14 05/19/17 History Acetaminophen-Codeine 300-30mg 2 tab PO Q6H PRN 08/18/14 05/19/17 History [Tylenol w/codeine #3] Calcium Carb-Vit D 500Mg-200Un 1 tab PO BID 04/27/16 05/19/17 History [Oscal 500+D] Fluticasone/Vilanterol [Breo 1 puff INHALATION RT-DAILY 04/27/16 05/19/17 History Ellipta 100-25 Mcg Inhaler] Multivitamins, Thera [Multivitamin 1 tab PO DAILY 04/27/16 05/19/17 History (formulary)] Opium Tincture 2 ml PO QID 04/27/16 05/19/17 History Mercaptopurine [Purinethol] 100 mg PO DAILY 02/22/17 05/19/17 History Albuterol Sulfate [Proair Hfa] 2 puff INHALATION RT-Q6H PRN 05/09/17 05/19/17 History Cholecalciferol [Vitamin D3] 3,000 unit PO DAILY 05/09/17 05/19/17 History Cyanocobalamin [Vitamin B-12 1,000 mcg SQ QMONTH 05/09/17 05/19/17 History Injection] Denosumab [Prolia] 60 mg SQ Q180D 05/09/17 05/19/17 History Dicyclomine [Bentyl] 10 mg PO QID PRN 05/09/17 05/19/17 History Hydrocodone/Acetaminophen [Vicodin 1 tab PO TID 05/09/17 05/19/17 History Es 7.5-300 mg Tablet] busPIRone HCl [Buspar] 20 mg PO BID 05/09/17 05/20/17 History Atenolol 25 mg PO DAILY 05/20/17 05/20/17 History Allergies Allergy/AdvReac Type Severity Reaction Status Date / Time aspirin Allergy Unknown Verified 05/19/17 21:11 Beta-Blockers Allergy Unknown Verified 05/19/17 21:11 (Beta-Adrenergic Bloc Iodine and Iodide Containing Allergy Unknown Verified 05/19/17 21:11 Produc Sulfa (Sulfonamide Allergy Unknown Verified 05/19/17 21:11 Antibiotics) timolol [Timolol] Allergy Unknown Verified 05/19/17 21:11 Surgical - Exam Vital Signs Temp Pulse Resp BP Pulse Ox 97.3 F L 122 H 35 H 139/98 98 05/19/17 20:09 05/19/17 20:09 05/19/17 20:09 05/19/17 20:09 05/19/17 20:09 - General well developed, well nourished, no distress, no pain - Eyes PERRL, normal ocular movement - ENT no hearing loss - Neck trachea midline - Respiratory Lungs sounds was bilaterally. Respirations even, nonlabored. Currently on room air infection saturation 94%. Right-sided Thora-vent present. - Cardiovascular Rhythm: regular Heart Sounds: normal: S1, S2 - Abdomen Abdomen: soft, non tender, bowel sounds - Genitourinary Deferred - Rectum Deferred - Integumentary no rash, no growths - Neurologic normal coordination, normal sensation - Musculoskeletal normal gait - Psychiatric oriented to time, oriented to person, oriented to place, speech is normal, memory intact Results - Labs 05/20/17 06:33 05/20/17 06:33 Abnormal Lab Results - Last 24 Hours (Table) 05/19/17 05/19/17 05/19/17 Range/Units 20:24 20:24 20:24 WBC 15.3 H (3.8-10.6) k/uL RBC (3.80-5.40) m/uL MCV 102.5 H (80.0-100.0) fL RDW 16.4 H (11.5-15.5) % Neutrophils # (1.3-7.7) k/uL APTT 19.8 L (22.0-30.0) sec Carbon Dioxide 33 H (22-30) mmol/L BUN 22 H (7-17) mg/dL Glucose 107 H (74-99) mg/dL ALT 89 H (9-52) U/L Total Creatine Kinase (30-135) U/L 05/19/17 05/20/17 Range/Units 20:24 06:33 WBC 12.2 H (3.8-10.6) k/uL RBC 3.60 L (3.80-5.40) m/uL MCV 101.3 H (80.0-100.0) fL RDW (11.5-15.5) % Neutrophils # 8.8 H (1.3-7.7) k/uL APTT (22.0-30.0) sec Carbon Dioxide (22-30) mmol/L BUN (7-17) mg/dL Glucose (74-99) mg/dL ALT (9-52) U/L Total Creatine Kinase 25 L (30-135) U/L Diabetes panel 05/19/17 05/20/17 Range/Units 20:24 06:33 Sodium 142 140 (137-145) mmol/L Potassium 4.8 3.7 (3.5-5.1) mmol/L Chloride 102 105 (98-107) mmol/L Carbon Dioxide 33 H 30 (22-30) mmol/L BUN 22 H 17 (7-17) mg/dL Creatinine 0.78 0.70 (0.52-1.04) mg/dL Glucose 107 H 86 (74-99) mg/dL Calcium 9.9 8.5 (8.4-10.2) mg/dL AST 24 (14-36) U/L ALT 89 H (9-52) U/L Alkaline Phosphatase 96 (38-126) U/L Total Protein 6.5 (6.3-8.2) g/dL Albumin 4.2 (3.5-5.0) g/dL Calcium panel 05/19/17 05/20/17 Range/Units 20:24 06:33 Calcium 9.9 8.5 (8.4-10.2) mg/dL Albumin 4.2 (3.5-5.0) g/dL Pituitary panel 05/19/17 05/20/17 Range/Units 20:24 06:33 Sodium 142 140 (137-145) mmol/L Potassium 4.8 3.7 (3.5-5.1) mmol/L Chloride 102 105 (98-107) mmol/L Carbon Dioxide 33 H 30 (22-30) mmol/L BUN 22 H 17 (7-17) mg/dL Creatinine 0.78 0.70 (0.52-1.04) mg/dL Glucose 107 H 86 (74-99) mg/dL Calcium 9.9 8.5 (8.4-10.2) mg/dL Adrenal panel 05/19/17 05/20/17 Range/Units 20:24 06:33 Sodium 142 140 (137-145) mmol/L Potassium 4.8 3.7 (3.5-5.1) mmol/L Chloride 102 105 (98-107) mmol/L Carbon Dioxide 33 H 30 (22-30) mmol/L BUN 22 H 17 (7-17) mg/dL Creatinine 0.78 0.70 (0.52-1.04) mg/dL Glucose 107 H 86 (74-99) mg/dL Calcium 9.9 8.5 (8.4-10.2) mg/dL Total Bilirubin 0.3 (0.2-1.3) mg/dL AST 24 (14-36) U/L ALT 89 H (9-52) U/L Alkaline Phosphatase 96 (38-126) U/L Total Protein 6.5 (6.3-8.2) g/dL Albumin 4.2 (3.5-5.0) g/dL - Imaging Chest x-ray: report reviewed, image reviewed Assessment and Plan (1) Acute exacerbation of chronic obstructive airways disease Status: Acute (2) Pneumothorax, right Status: Acute Plan: The patient was seen and examined at the bedside. Chart/diagnostics were reviewed. Case was discussed in detail with Dr. Mistry. Will obtain a CAT scan of the chest with contrast to evaluate recurrent pneumothorax, left upper lobe mass. Will discuss with Dr. Jordan. Other comorbid medical issues to be managed by primary care service and pulmonology. More recommendations to follow. Thank you Dr. Mistry for this consult. We look forward to working with you in the care of your patient. Time with Patient: Greater than 30
[2017-05-20] MEDS: ATENOLOL 25 MG TAB PO SCH (12:27)
--- NOTE | 2017-05-20 12:27 | CT ---
EXAMINATION TYPE: CT chest w con DATE OF EXAM: 05/20/2017 COMPARISON: 04/17/2014 HISTORY: LANE mass frequent pneumothorax CT DLP: 148.6 mGycm Automated exposure control for dose reduction was used. CONTRAST: CT scan of the chest is performed with IV Contrast, patient injected with 100 mL of Omnipaque 300. FINDINGS: There is severe bullous emphysema. There is a 12 x 8 cm bulla in the posterior right upper lobe. Ther e is a right chest tube is in good position. There is a 3 cm stellate infiltrate in the anterior segm ent right upper lobe. There is a 5 x 3 cm spiculated infiltrate in the posterior segment of the left upper lobe. There is no mediastinal adenopathy. There are no hilar masses. Heart size is normal. I see no filling defects in the pulmonary arteries. There is no sign of aortic aneurysm or dissection. There is mild pleural thickening at the lung bases. There is reticular interstitial infiltrate in the mid and lower lung hunter. The bony thorax is intact. IMPRESSION: Severe bullous emphysema that is significantly worse than old CT scan of 04/17/2014. Righ t chest tube is in good position. Subcutaneous emphysema on the right chest wall. It is not clear if a pneumothorax is present. Bilateral upper lobe stellate infiltrates. Similar smaller patchy infiltrates in the lower lung field s. This probably relates to scarring but tumor cannot be excluded.
[2017-05-20 13:26] VITALS: BMI 19.0
--- NOTE | 2017-05-20 14:00 | P.HPIM ---
History of Present Illness 56-year-old male patient with known history of advanced COPD with an FEV1 of 36 % of predicted along with previous hospitalizations for COPD exacerbations coming in for recurrent right-sided pneumothorax. The patient was in for the same on 05/12/2017. She was treated with a thoravent that was inserted into the right chest with successful reexpansion of the right lung. After successful expansion, the tube was removed and the patient was discharged home approximately a week ago. She was doing well and yesterday while doing some computer work at home she felt acute shortness of breath and discomfort noted right chest area and she thought she had the same problem again. Sure enough the patient presented to the ED and she was found to have a large right-sided pneumothorax and another Thoravent was inserted. We have had again successful reexpansion. Today's chest x-ray is showing minimal right apical pneumothorax. There is however extensive emphysematous changes bilaterally and there is also left upper lobe opacity and for that reason a CAT scan of the chest will be ordered with contrast. Clinically is doing well. She is hemodynamically stable. No cough or sputum production. No chest pain. No hemoptysis. No pleurisy. No major swelling lower extremities. No other complaints otherwise. Agents such unassessable significantly improved patient has barely any air entry into bilateral lung hunter at this point of time. Which as per the patient is not her baseline although she doesn't feel more short of breath than her baseline. Review of Systems REVIEW OF SYSTEMS: CONSTITUTIONAL: No fever, no malaise, no fatigue. HEENT: No recent visual problems or hearing problems. Denied any sore throat. CARDIOVASCULAR: No chest pain, orthopnea, PND, no palpitations, no syncope. PULMONARY: no cough, no hemoptysis. GASTROINTESTINAL: No diarrhea, no nausea, no vomiting, no abdominal pain. Normoactive bowel sounds. NEUROLOGICAL: No headaches, no weakness, no numbness. HEMATOLOGICAL: Denies any bleeding or petechiae. GENITOURINARY: Denies any burning micturition, frequency, or urgency. MUSCULOSKELETAL/RHEUMATOLOGICAL: Denies any joint pain, swelling, or any muscle pain. ENDOCRINE: Denies any polyuria or polydipsia. The rest of the 14-point review of systems is negative. Past Medical History Past Medical History: COPD, Fibromyalgia, GERD/Reflux, GI Bleed, Osteoarthritis (OA), Pneumonia Additional Past Medical History / Comment(s): COPD, severe with an FEV1 of 36% of predicted, crohn's, bowel obstructions, lower GI bleeds, hiatal hernia, osteoporosis, arthritis multiple joints, seasonal allergies, right-sided pneumothorax History of Any Multi-Drug Resistant Organisms: None Reported Past Surgical History: Breast Surgery, Cholecystectomy, Hernia Repair, Hysterectomy, Orthopedic Surgery Additional Past Surgical History / Comment(s): Multiple bowel surgeries including total colectomy/ileostomy, ileostomy moved/repaired, R tube and R ovary removed due toectopic , total hysterectomy, leep procedure, laparoscopy for endometriosis, L breast lumpectomy-benign, r breast core bx- benign, EGD/colonoscopies. Right-sided Thora-vent placement May 09 and May 19. Past Anesthesia/Blood Transfusion Reactions: No Reported Reaction Past Psychological History: No Psychological Hx Reported Additional Psychological History / Comment(s): Pt currently is staying with her 90 yr old father who has dementia. Her spouse is staying at their home to care for the dogs. 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 She is independent. Smoking Status: Former smoker Past Alcohol Use History: None Reported Additional Past Alcohol Use History / Comment(s): smoker since age 17. pt states she has not smoked since last admission early this month, has been using nicotine patch at home Past Drug Use History: None Reported - Past Family History Mother Family Medical History: Cancer, COPD Additional Family Medical History / Comment(s): Skin cancer and osteoporosis. Father Family Medical History: Dementia Additional Family Medical History / Comment(s): Father is 90yrs old. Medications and Allergies Home Medications Medication Instructions Recorded Confirmed Type Aclidinium [place] [Tudorza 400 mcg INHALATION RT-BID 06/21/14 05/19/17 History Pressair] Adalimumab [Humira Pen] 40 mg SQ FR 06/21/14 05/19/17 History Acetaminophen-Codeine 300-30mg 2 tab PO Q6H PRN 08/18/14 05/19/17 History [Tylenol w/codeine #3] Calcium Carb-Vit D 500Mg-200Un 1 tab PO BID 04/27/16 05/19/17 History [Oscal 500+D] Fluticasone/Vilanterol [Breo 1 puff INHALATION RT-DAILY 04/27/16 05/19/17 History Ellipta 100-25 Mcg Inhaler] Multivitamins, Thera [Multivitamin 1 tab PO DAILY 04/27/16 05/19/17 History (formulary)] Opium Tincture 2 ml PO QID 04/27/16 05/19/17 History Mercaptopurine [Purinethol] 100 mg PO DAILY 02/22/17 05/19/17 History Albuterol Sulfate [Proair Hfa] 2 puff INHALATION RT-Q6H PRN 05/09/17 05/19/17 History Cholecalciferol [Vitamin D3] 3,000 unit PO DAILY 05/09/17 05/19/17 History Cyanocobalamin [Vitamin B-12 1,000 mcg SQ QMONTH 05/09/17 05/19/17 History Injection] Denosumab [Prolia] 60 mg SQ Q180D 05/09/17 05/19/17 History Dicyclomine [Bentyl] 10 mg PO QID PRN 05/09/17 05/19/17 History Hydrocodone/Acetaminophen [Vicodin 1 tab PO TID 05/09/17 05/19/17 History Es 7.5-300 mg Tablet] busPIRone HCl [Buspar] 20 mg PO BID 05/09/17 05/20/17 History Atenolol 25 mg PO DAILY 05/20/17 05/20/17 History Allergies Allergy/AdvReac Type Severity Reaction Status Date / Time aspirin Allergy Unknown Verified 05/19/17 21:11 Beta-Blockers Allergy Unknown Verified 05/19/17 21:11 (Beta-Adrenergic Bloc Iodine and Iodide Containing Allergy Unknown Verified 05/19/17 21:11 Produc Sulfa (Sulfonamide Allergy Unknown Verified 05/19/17 21:11 Antibiotics) timolol [Timolol] Allergy Unknown Verified 05/19/17 21:11 Physical Exam Vitals: Vital Signs Temp Pulse Pulse Resp BP BP Pulse Ox 05/20/17 12:24 96.8 F L 81 16 133/78 95 05/20/17 09:35 72 94 L 05/20/17 09:10 16 05/20/17 09:06 97.6 F 72 16 125/72 98 05/20/17 04:00 98.2 F 76 18 118/60 97 05/19/17 23:56 97.0 F L 72 18 145/85 99 05/19/17 23:47 92 18 127/85 98 05/19/17 21:46 94 18 120/85 96 05/19/17 20:36 101 H 18 132/91 99 05/19/17 20:09 97.3 F L 122 H 35 H 139/98 98 Intake and Output 05/19/17 05/20/17 05/20/17 22:59 06:59 14:59 Intake Total 300 Balance 300 Intake: IV 300 Dextrose 5%-0.45% NaCl 1, 300 000 ml @ 100 mls/hr IV . Q10H [facility] Rx#:[id number] Other: Voiding Method Toilet Toilet # Voids 1 1 # Bowel Movements 1 Weight 46.72 kg 47.2 kg 47.2 kg Patient Weight 05/21/17 06:59 Weight 47.2 kg PHYSICAL EXAMINATION: GENERAL: The patient is alert and oriented x3, not in any acute distress. Well developed, well nourished. HEENT: Pupils are round and equally reacting to light. EOMI. No scleral icterus. No conjunctival pallor. Normocephalic, atraumatic. No pharyngeal erythema. No thyromegaly. CARDIOVASCULAR: S1 and S2 present. No murmurs, rubs, or gallops. PULMONARY: Significantly limited air entry into bilateral lung hunter. No wheezing was appreciated no crackles were appreciated. ABDOMEN: Soft, nontender, nondistended, normoactive bowel sounds. No palpable organomegaly. MUSCULOSKELETAL: No joint swelling or deformity. EXTREMITIES: No cyanosis, clubbing, or pedal edema. NEUROLOGICAL: Gross neurological examination did not reveal any focal deficits. SKIN: No rashes. Results CBC & Chem 7: 05/20/17 06:33 05/20/17 06:33 Labs: Abnormal Lab Results - Last 24 Hours (Table) 05/19/17 05/19/17 05/19/17 Range/Units 20:24 20:24 20:24 WBC 15.3 H (3.8-10.6) k/uL RBC (3.80-5.40) m/uL MCV 102.5 H (80.0-100.0) fL RDW 16.4 H (11.5-15.5) % Neutrophils # (1.3-7.7) k/uL APTT 19.8 L (22.0-30.0) sec Carbon Dioxide 33 H (22-30) mmol/L BUN 22 H (7-17) mg/dL Glucose 107 H (74-99) mg/dL ALT 89 H (9-52) U/L Total Creatine Kinase (30-135) U/L 05/19/17 05/20/17 Range/Units 20:24 06:33 WBC 12.2 H (3.8-10.6) k/uL RBC 3.60 L (3.80-5.40) m/uL MCV 101.3 H (80.0-100.0) fL RDW (11.5-15.5) % Neutrophils # 8.8 H (1.3-7.7) k/uL APTT (22.0-30.0) sec Carbon Dioxide (22-30) mmol/L BUN (7-17) mg/dL Glucose (74-99) mg/dL ALT (9-52) U/L Total Creatine Kinase 25 L (30-135) U/L Thrombosis Risk Factor Assmnt - Choose All That Apply Any of the Below Risk Factors Present?: Yes Each Factor Represents 1 point: Abnormal pulmonary function (COPD), Age 41-60 years Thrombosis Risk Factor Assessment Total Risk Factor Score: 2 Thrombosis Risk Factor Assessment Level: Low Risk Assessment and Plan Plan: 1 recurrent right-sided pneumothorax, secondary pneumothorax related to underlying COPD and probably bullous disease. The patient is successful expansion with insertion of a thoravent. Patient will undergo repeat CAT scan and further management depending on that 2 COPD with bullous disease : Patient does not appear to have been COPD exacerbation continue with instillation treatments does not appear to require any systemic steroids at this point of time. 3 Crohn disease/inflammatory bowel disease or not in acute exacerbation at this time 4 fibromyalgia 5 osteoarthritis/osteoporosis
[2017-05-20] MEDS: busPIRone HCl 10 MG TAB PO SCH ×2 (14:04→20:59)
[2017-05-20] MEDS: HEPARIN SODIUM,PORCINE 5,000 UNIT/ML 1 ML VIAL SQ SCH (16:03)
[2017-05-21] MEDS: HEPARIN SODIUM,PORCINE 5,000 UNIT/ML 1 ML VIAL SQ SCH ×4 (00:18→22:52)
[2017-05-21] MEDS: MORPHINE SULFATE 4 MG/ML SYRINGE IV PRN ×6 (00:19→22:52)
[2017-05-21] MEDS: DEXTROSE 5%-0.45% NACL 1,000 ML IV SCH ×3 (06:32→21:24)
--- NOTE | 2017-05-21 08:05 | XR ---
EXAMINATION TYPE: XR chest 2V DATE OF EXAM: 05/21/2017 HISTORY: Shortness of breath. COMPARISON: 05/20/2017 TECHNIQUE: 2 views of the chest is submitted. FINDINGS: Right apical pleural catheter is unchanged in position. I do not see evidence for sizable pneumothora x at this time. Improving subcutaneous air along the right lateral chest wall. Demonstrated are scattered senescent parenchymal change. Persistent masslike density left upper lobe and patchy density right suprahilar region. The heart is stable. Hilar and mediastinal structures are within normal limits. Degenerative changes are seen of the dorsal spine. IMPRESSION: 1. Right apical pleural catheter is unchanged in position. I do not see evidence for sizable pneumot horax at this time. 2. Persistent masslike density left upper lobe and patchy density right suprahilar region.
[2017-05-21] MEDS ORDERED: ATENOLOL 25 MG TAB PO SCH (09:00)
[2017-05-21] MEDS: busPIRone HCl 10 MG TAB PO SCH ×2 (09:03→21:24)
[2017-05-21] MEDS: ATENOLOL 25 MG TAB PO SCH (09:03)
[2017-05-21] MEDS: ONDANSETRON 4 MG/2 ML VIAL IVP PRN ×2 (09:05→17:31)
--- NOTE | 2017-05-21 11:10 | P.PN ---
Subjective Principal diagnosis: Recurrent right pleural effusion. COPD. History of pneumonia. Previous tobacco dependence, although just recently quit. POD #2 Thora-vent placement by ER with re-expansion of the right lung. Patient's currently sitting up in bed in no acute distress. Denies chest pain , shortness of breath. Objective - Vital Signs Vital signs: Vital Signs Temp 96.7 F L 05/21/17 07:53 Pulse 74 05/21/17 07:53 Resp 16 05/21/17 07:53 BP 121/81 05/21/17 07:53 Pulse Ox 95 05/21/17 07:53 Intake & Output 05/20/17 05/21/17 05/21/17 18:59 06:59 18:59 Intake Total 280 1160 Balance 280 1160 Weight 47.2 kg 46.4 kg Intake: IV 800 Dextrose 5%-0.45% NaCl 1, 800 000 ml @ 100 mls/hr IV . Q10H [facility] Rx#:[id number] Oral 280 360 Other: Voiding Method Toilet Toilet # Voids 1 2 # Bowel Movements 1 - Constitutional General appearance: Present: cooperative, no acute distress - Respiratory Details: Lungs sounds diminished bilaterally. Respirations even, nonlabored. Currently on room oxygen saturation 97%. Right pleural Thora-vent present. Able to achieve 1000 mL on her incentive spirometry. - Cardiovascular Details: S1, S2 present. Regular rate and rhythm, normal sinus rhythm on telemetry. - Gastrointestinal Gastrointestinal Comment(s): Abdomen soft, nontender, nondistended. Active bowel sounds 4 quadrants. Tolerating diet. - Genitourinary Genitourinary Comment(s): Continues to void clear, yellow urine. - Musculoskeletal Musculoskeletal: Present: gait normal, strength equal bilaterally - Psychiatric Psychiatric: Present: A&O x's 3, appropriate affect, intact judgment & insight - Allied health notes Allied health notes reviewed: nursing - Labs CBC & Chem 7: 05/20/17 06:33 05/20/17 06:33 - Imaging and Cardiology Chest x-ray: report reviewed, image reviewed Assessment and Plan (1) Acute exacerbation of chronic obstructive airways disease Status: Acute (2) Pneumothorax, right Status: Acute (3) Tobacco dependence in remission Status: Acute Plan: 1. Will continue to monitor daily x-rays, Thora-vent functioning. 2. Encourage incentive spirometry use. 3. Continue to encourage smoking cessation. 4. Increase activity, ambulate in hallway. 5. Medical comorbidities to be managed by primary/pulmonology service. 6. Will review CT of the chest and make further recommendations. Time with Patient: Greater than 30
--- NOTE | 2017-05-21 13:09 | P.PN ---
Subjective 56-year-old male patient with known history of advanced COPD with an FEV1 of 36 % of predicted along with previous hospitalizations for COPD exacerbations coming in for recurrent right-sided pneumothorax. The patient was in for the same on 05/12/2017. She was treated with a thoravent that was inserted into the right chest with successful reexpansion of the right lung. After successful expansion, the tube was removed and the patient was discharged home approximately a week ago. She was doing well and yesterday while doing some computer work at home she felt acute shortness of breath and discomfort noted right chest area and she thought she had the same problem again. Sure enough the patient presented to the ED and she was found to have a large right-sided pneumothorax and another Thoravent was inserted. We have had again successful reexpansion. Today's chest x-ray is showing minimal right apical pneumothorax. There is however extensive emphysematous changes bilaterally and there is also left upper lobe opacity and for that reason a CAT scan of the chest will be ordered with contrast. Clinically is doing well. She is hemodynamically stable. No cough or sputum production. No chest pain. No hemoptysis. No pleurisy. No major swelling lower extremities. No other complaints otherwise. On 05/21/2017 the patient is being seen in follow-up. She is still has a thoravent in her right chest. CAT scan of the chest was done yesterday and it showed a severe bullous emphysema and the large 12 x 8 cm bolus in the right upper lobe with a right chest tube being in a good position and another 3 cm stellate infiltrated the anterior segment of the right upper lobe and a 5 x 3 cm spiculated infiltrate in the posterior segment of the left upper lobe. There is diffuse emphysema. Subcutaneous air is also seen along the right- sided chest wall. Today chest x-ray shows no evidence of any pneumothorax. Surgical consultation is still pending for now. I'm inclined to keep the chest tube for quite some time and probably discharge patient home with the chest tube. She has no specific complaints otherwise for now. Objective - Vital Signs Vital signs: Vital Signs Temp 96.5 F L 05/21/17 12:00 Pulse 79 05/21/17 12:00 Resp 20 05/21/17 12:00 BP 116/75 05/21/17 12:00 Pulse Ox 93 L 05/21/17 12:00 Intake & Output 05/20/17 05/21/17 05/21/17 18:59 06:59 18:59 Intake Total 280 1160 800 Balance 280 1160 800 Weight 47.2 kg 46.4 kg Intake: IV 800 800 Dextrose 5%-0.45% NaCl 1, 800 800 000 ml @ 100 mls/hr IV . Q10H [facility] Rx#:[id number] Oral 280 360 Other: Voiding Method Toilet Toilet Toilet # Voids 1 2 1 # Bowel Movements 1 - Exam Head exam was generally normal. There was no scleral icterus or corneal arcus. Mucous membranes were moist.Neck was supple and without jugular venous distension, thyromegaly, or carotid bruits. Carotids were easily palpable bilaterally. There was no adenopathy. Lung sounds are diminished bilaterally. There is no subcutaneous emphysema. There is a thoravent over the anterior chest area. No evidence of any leak from the valve attached to the thoravent.Cardiac exam revealed the PMI to be normally situated and sized. The rhythm was regular and no extrasystoles were noted during several minutes of auscultation. The first and second heart sounds were normal and physiologic splitting of the second heart sound was noted. There were no murmurs, rubs, clicks, or gallops. Abdominal exam revealed normal bowel sounds. The abdomen was soft, non-tender, and without masses, organomegaly, or appreciable enlargement of the abdominal aorta. The patient has a ileostomy.Examination of the extremities revealed easily palpable radial, femoral and pedal pulses. There was no cyanosis, clubbing or edema. - Labs CBC & Chem 7: 05/20/17 06:33 05/20/17 06:33 Assessment and Plan Plan: Assessment 1 recurrent right-sided pneumothorax, secondary pneumothorax related to underlying COPD and probably bullous disease. The patient is successful expansion with insertion of a thoravent. Note that this pneumothorax occurred within a week of discharge from a similar admission for a right-sided pneumothorax. 2 COPD with bullous disease 3 left upper lobe opacity rule out underlying mass/pneumonia/fluid-filled cavity /fluid-filled bullous. CAT scan of the chest will be needed. 4 chronic dyspnea secondary to above 5 Crohn disease/inflammatory bowel disease 6 fibromyalgia 7 ileostomy 8 osteoarthritis/osteoporosis 9 history of smoking Plan As can of the chest was reviewed. There is a large bolus in the right upper lobe 12 x 8 centimeters in size. Another spiculated infiltrate is seen in the left upper lobe measuring 5 x 3 cm in size. The patient is right lung is well expanded. Will have a surgical opinion regarding the possibility of embolectomy and chemical pleurodesis. If not, the patient will be released home with her catheter in and this can be removed later on outpatient basis. As for the left upper lobe, this is to be monitored. I would not do a biopsy at this point due to her increased risk of getting into postoperative complications. She has advanced COPD. This will be monitored by serial CAT scans on outpatient basis.
[2017-05-21] MEDS ORDERED: NICOTINE POLACRILEX 2 MG GUM BUCCAL PRN (13:33)
--- NOTE | 2017-05-21 14:02 | P.PN ---
Subjective Patient is admitted for right-sided pneumothorax and patient has Thoravent, cardiothoracic surgery is recommending monitoring. Patient denied any shortness of breath, chest pain, nausea, vomiting. Patient can use to have mild chest pain which is well controlled with narcotics. Objective - Vital Signs Vital signs: Vital Signs Temp 96.5 F L 05/21/17 12:00 Pulse 79 05/21/17 12:00 Resp 20 05/21/17 12:00 BP 116/75 05/21/17 12:00 Pulse Ox 93 L 05/21/17 12:00 Intake & Output 05/20/17 05/21/17 05/21/17 18:59 06:59 18:59 Intake Total 280 1160 800 Balance 280 1160 800 Weight 47.2 kg 46.4 kg Intake: IV 800 800 Dextrose 5%-0.45% NaCl 1, 800 800 000 ml @ 100 mls/hr IV . Q10H [facility] Rx#:[id number] Oral 280 360 Other: Voiding Method Toilet Toilet Toilet # Voids 1 2 1 # Bowel Movements 1 - Exam PHYSICAL EXAMINATION: GENERAL: The patient is alert and oriented x3, not in any acute distress. Well developed, well nourished. HEENT: Pupils are round and equally reacting to light. EOMI. No scleral icterus. No conjunctival pallor. Normocephalic, atraumatic. No pharyngeal erythema. No thyromegaly. CARDIOVASCULAR: S1 and S2 present. No murmurs, rubs, or gallops. PULMONARY: Significantly limited air entry into bilateral lung hunter. No wheezing was appreciated no crackles were appreciated. Patient has a Thora vent on the right side ABDOMEN: Soft, nontender, nondistended, normoactive bowel sounds. No palpable organomegaly. MUSCULOSKELETAL: No joint swelling or deformity. EXTREMITIES: No cyanosis, clubbing, or pedal edema. NEUROLOGICAL: Gross neurological examination did not reveal any focal deficits. SKIN: No rashes. - Labs CBC & Chem 7: 05/20/17 06:33 05/20/17 06:33 Assessment and Plan Plan: 1 recurrent right-sided pneumothorax, secondary pneumothorax related to underlying COPD and probably bullous disease. The patient is successful expansion with insertion of a thoravent. Patient will undergo repeat CAT scan and further management depending on that 2 COPD with bullous disease : Patient does not appear to have been COPD exacerbation continue with instillation treatments does not appear to require any systemic steroids at this point of time. 3 Crohn disease/inflammatory bowel disease or not in acute exacerbation at this time 4 fibromyalgia 5 osteoarthritis/osteoporosis
[2017-05-21] MEDS ORDERED: ZOLPIDEM 5 MG TAB PO PRN (14:36)
[2017-05-21] MEDS: MERCAPTOPURINE 50 MG TAB PO SCH (14:36)
[2017-05-21] MEDS: IPRATROPIUM-ALBUTEROL 3 ML NEB INHALATION SCH ×2 (16:38→20:24)
[2017-05-21] MEDS: MELATONIN 3 MG TABLET PO SCH (21:24)
[2017-05-21] MEDS: CALCIUM CARB-VIT D 500MG-200UN 1 EACH TAB PO SCH (21:24)
[2017-05-21] MEDS: LATANOPROST 0.005% OPHTH DROPS 2.5 ML BTL BOTH EYES SCH (21:24)
[2017-05-22] MEDS: ONDANSETRON 4 MG/2 ML VIAL IVP PRN ×3 (02:17→18:29)
[2017-05-22] MEDS: MORPHINE SULFATE 4 MG/ML SYRINGE IV PRN ×5 (02:58→19:37)
--- NOTE | 2017-05-22 07:06 | XR ---
EXAMINATION TYPE: XR chest 2V DATE OF EXAM: 05/22/2017 HISTORY: ptx. REFERENCE: Previous study dated 05/21/2017. FINDINGS: A Heimlich valve remains in place with its tip in the right apex. I do not see definite pne umothorax. The lungs are overinflated. There is a stable, masslike density in the left upper lobe. The heart is not enlarged. I could not exclude a small left effusion. IMPRESSION: 1. COPD. 2. NO DEFINITE PNEUMOTHORAX IS PRESENT AT THIS TIME. 3. I CANNOT EXCLUDE A SMALL LEFT EFFUSION
[2017-05-22] MEDS: IPRATROPIUM-ALBUTEROL 3 ML NEB INHALATION SCH ×4 (07:50→19:28)
[2017-05-22] MEDS: busPIRone HCl 10 MG TAB PO SCH ×2 (08:41→21:13)
[2017-05-22] MEDS: HEPARIN SODIUM,PORCINE 5,000 UNIT/ML 1 ML VIAL SQ SCH ×2 (08:41→15:21)
[2017-05-22] MEDS: CHOLECALCIFEROL 1,000 UNIT TAB PO SCH (08:41)
[2017-05-22] MEDS: ATENOLOL 25 MG TAB PO SCH (08:41)
[2017-05-22] MEDS: MERCAPTOPURINE 50 MG TAB PO SCH (08:41)
[2017-05-22] MEDS: CALCIUM CARB-VIT D 500MG-200UN 1 EACH TAB PO SCH ×2 (08:41→21:12)
--- NOTE | 2017-05-22 09:18 | P.PN ---
Subjective Principal diagnosis: Recurrent right pleural effusion. COPD. History of pneumonia. Previous tobacco dependence, although just recently quit. POD #3 Thora-vent placement by ER with re-expansion of the right lung. Patient's currently sitting up in bed in no acute distress. Denies chest pain , shortness of breath. Objective - Vital Signs Vital signs: Vital Signs Temp 97.0 F L 05/22/17 08:00 Pulse 80 05/22/17 08:07 Resp 16 05/22/17 08:00 BP 124/79 05/22/17 08:00 Pulse Ox 94 L 05/22/17 08:00 Intake & Output 05/21/17 05/22/17 05/22/17 18:59 06:59 18:59 Intake Total 1277 1000 Balance 1277 1000 Intake: IV 800 1000 Dextrose 5%-0.45% NaCl 1, 800 1000 000 ml @ 100 mls/hr IV . Q10H [facility] Rx#:[id number] Oral 477 Other: Voiding Method Toilet Toilet # Voids 1 - Constitutional General appearance: Present: cooperative, no acute distress - Respiratory Details: Lung sounds diminished bilaterally. Resp even/non-labored. Currently on room air with oxygen saturations 94%. Right Thora-vent present, no air leak. - Cardiovascular Details: Sinus rhythm on telemetry. Rhythm: regular Heart sounds: normal: S1, S2 - Gastrointestinal General gastrointestinal: Present: normal bowel sounds - Genitourinary Genitourinary Comment(s): Voiding clear yellow urine. - Musculoskeletal Musculoskeletal: Present: gait normal, strength equal bilaterally - Psychiatric Psychiatric: Present: A&O x's 3, appropriate affect, intact judgment & insight - Allied health notes Allied health notes reviewed: nursing - Labs CBC & Chem 7: 05/20/17 06:33 05/20/17 06:33 - Imaging and Cardiology Chest x-ray: report reviewed, image reviewed Assessment and Plan (1) Acute exacerbation of chronic obstructive airways disease Status: Acute (2) Pneumothorax, right Status: Acute (3) Tobacco dependence in remission Status: Acute Plan: 1. Will cap/plug Thora-vent. Repeat CXR tomorrow. If no air leak, may discontinue Thora-vent. If air leak present, would leave in. Patient may be discharged home thereafter with pulmonary follow up to determine when to discontinue. Discussed at length with patient. 2. Encourage incentive spirometry use. 3. Continue to encourage smoking cessation. 4. Increase activity, ambulate in hallway. 5. Medical comorbidities to be managed by primary/pulmonology service. Time with Patient: Greater than 30
--- NOTE | 2017-05-22 10:36 | CDI ---
In responding to this query, please exercise your independent professional judgment. The [facility] Coding Staff and Clinical Documentation Specialists appreciate your assistance in clarifying documentation, maintaining compliance with coding guidelines, accurately documenting patients condition and capturing severity of illness. The fact that a question is asked does not imply that any particular answer is desired or expected. Communication forms are a method of clarifying documentation and are not made part of the Legal Health Record. Thank you in advance for your clarification. Last Revision, August 2015 Esme Pearson [address] [place] [address] Documentation Clarification Form Date: 05/22/2017 10:23:00 AM From: Felicia Bowen RN, CCDS Admit Date: 05/19/2017 11:01:00 PM Patient Name: Caitie Garg Visit Number: [id number] Dr. Tamera Swan History/Risk Factors: COPD w FEV1 of 36%, Fibromyalgia, GERD, GIB, OA, Pneumonia, lower GIB, Multiple bowel surgeries Clinical Indicators: Ileostomy Labs: Albumin: 4.2 Total Protein: 6.5 Current BMI: 18.7 Insufficient energy intake: Recurrent right sided pneumothorax, related to COPD bullous disease Weight Loss: Per dietary assessment: minimal Loss of subcutaneous fat: Per Dietary assessment "underweight" Treatment: Dietary Consult: Completed 05/20 Supplements: Ensure Enlive TID Lab monitoring: AM Daily In your professional opinion, can you please clarify if these findings signify one of the following conditions? Mild Protein-Calorie Malnutrition Moderate Protein-Calorie Malnutrition Severe Protein-Calorie Malnutrition Malnutrition following GI surgery Other condition, please specify Unable to determine Please document in your progress notes and discharge summary in order to capture severity of illness and risk of mortality. Include clinical findings that support your diagnosis. FYI: Press F11 to launch patient chart. I don't think patient is malnurished MTDD
[2017-05-22] MEDS: DEXTROSE 5%-0.45% NACL 1,000 ML IV SCH (10:57)
[2017-05-22] MEDS: MULTIVITAMINS, THERA 1 EACH TAB PO SCH (11:29)
--- NOTE | 2017-05-22 13:01 | P.PN ---
Subjective 56-year-old male patient with known history of advanced COPD with an FEV1 of 36 % of predicted along with previous hospitalizations for COPD exacerbations coming in for recurrent right-sided pneumothorax. The patient was in for the same on 05/12/2017. She was treated with a thoravent that was inserted into the right chest with successful reexpansion of the right lung. After successful expansion, the tube was removed and the patient was discharged home approximately a week ago. She was doing well and yesterday while doing some computer work at home she felt acute shortness of breath and discomfort noted right chest area and she thought she had the same problem again. Sure enough the patient presented to the ED and she was found to have a large right-sided pneumothorax and another Thoravent was inserted. We have had again successful reexpansion. Today's chest x-ray is showing minimal right apical pneumothorax. There is however extensive emphysematous changes bilaterally and there is also left upper lobe opacity and for that reason a CAT scan of the chest will be ordered with contrast. Clinically is doing well. She is hemodynamically stable. No cough or sputum production. No chest pain. No hemoptysis. No pleurisy. No major swelling lower extremities. No other complaints otherwise. On 05/21/2017 the patient is being seen in follow-up. She is still has a thoravent in her right chest. CAT scan of the chest was done yesterday and it showed a severe bullous emphysema and the large 12 x 8 cm bolus in the right upper lobe with a right chest tube being in a good position and another 3 cm stellate infiltrated the anterior segment of the right upper lobe and a 5 x 3 cm spiculated infiltrate in the posterior segment of the left upper lobe. There is diffuse emphysema. Subcutaneous air is also seen along the right- sided chest wall. Today chest x-ray shows no evidence of any pneumothorax. Surgical consultation is still pending for now. I'm inclined to keep the chest tube for quite some time and probably discharge patient home with the chest tube. She has no specific complaints otherwise for now. On 05/22/2017 the patient is stable. Today's chest x-ray showed no evidence of any pneumothorax on the right. The thoravent is still in place. This is day 3 of placement. There is full expansion of the right lung. No acute respiratory distress. No chest pain. No shortness of breath. No subcutaneous emphysema. The cap of the tube will be plugged and a repeat chest x-ray we will obtain tomorrow. No plans for any surgical intervention and the patient will likely go home with a sore vent for the next week or so. I'm inclined to keep the tube in for at least a week or 2 even if there is no developement of pneumothorax while the tube being capped Objective - Vital Signs Vital signs: Vital Signs Temp 97.1 F L 05/22/17 12:00 Pulse 86 05/22/17 12:15 Resp 18 05/22/17 12:00 BP 111/69 05/22/17 12:00 Pulse Ox 93 L 05/22/17 12:00 Intake & Output 05/21/17 05/22/17 05/22/17 18:59 06:59 18:59 Intake Total 1277 1000 Balance 1277 1000 Intake: IV 800 1000 Dextrose 5%-0.45% NaCl 1, 800 1000 000 ml @ 100 mls/hr IV . Q10H MEENU Rx#:[id number] Oral 477 Other: Voiding Method Toilet Toilet Toilet # Voids 1 1 - Exam Head exam was generally normal. There was no scleral icterus or corneal arcus. Mucous membranes were moist.Neck was supple and without jugular venous distension, thyromegaly, or carotid bruits. Carotids were easily palpable bilaterally. There was no adenopathy. Lung sounds are diminished bilaterally. There is no subcutaneous emphysema. There is a thoravent over the anterior chest area. No evidence of any leak from the valve attached to the thoravent.Cardiac exam revealed the PMI to be normally situated and sized. The rhythm was regular and no extrasystoles were noted during several minutes of auscultation. The first and second heart sounds were normal and physiologic splitting of the second heart sound was noted. There were no murmurs, rubs, clicks, or gallops. Abdominal exam revealed normal bowel sounds. The abdomen was soft, non-tender, and without masses, organomegaly, or appreciable enlargement of the abdominal aorta. The patient has a ileostomy.Examination of the extremities revealed easily palpable radial, femoral and pedal pulses. There was no cyanosis, clubbing or edema. - Labs CBC & Chem 7: 05/20/17 06:33 05/20/17 06:33 Assessment and Plan Plan: Assessment 1 recurrent right-sided pneumothorax, secondary pneumothorax related to underlying COPD and probably bullous disease. The patient is successful expansion with insertion of a thoravent. Note that this pneumothorax occurred within a week of discharge from a similar admission for a right-sided pneumothorax. 2 COPD with bullous disease 3 left upper lobe opacity rule out underlying mass/pneumonia/fluid-filled cavity /fluid-filled bullous. CAT scan of the chest will be needed. 4 chronic dyspnea secondary to above 5 Crohn disease/inflammatory bowel disease 6 fibromyalgia 7 ileostomy 8 osteoarthritis/osteoporosis 9 history of smoking Plan No plans for surgical intervention. The Thoravent will be capped and will monitor for any evolution of pneumothorax. Use incentive spirometer. Possible discharge home with the tube itself to be kept in place for at least a week or 2. This will be discussed with thoracic surgery.. Her condition is stable for now
--- NOTE | 2017-05-22 13:58 | P.PN ---
Subjective Patient is admitted for right-sided pneumothorax and patient has Thoravent, cardiothoracic surgery is recommending monitoring. 05/22/2017 Patient denied any overnight events. Patient's current is Today monitor 1 more night possibility of discharge tomorrow. Patient denied any shortness of breath, chest pain, nausea, vomiting. Patient can use to have mild chest pain which is well controlled with narcotics. Objective - Vital Signs Vital signs: Vital Signs Temp 97.1 F L 05/22/17 12:00 Pulse 86 05/22/17 12:15 Resp 18 05/22/17 12:00 BP 111/69 05/22/17 12:00 Pulse Ox 93 L 05/22/17 12:00 Intake & Output 05/21/17 05/22/17 05/22/17 18:59 06:59 18:59 Intake Total 1277 1000 Balance 1277 1000 Intake: IV 800 1000 Dextrose 5%-0.45% NaCl 1, 800 1000 000 ml @ 100 mls/hr IV . Q10H MEENU Rx#:[id number] Oral 477 Other: Voiding Method Toilet Toilet Toilet # Voids 1 1 - Exam PHYSICAL EXAMINATION: GENERAL: The patient is alert and oriented x3, not in any acute distress. Well developed, well nourished. HEENT: Pupils are round and equally reacting to light. EOMI. No scleral icterus. No conjunctival pallor. Normocephalic, atraumatic. No pharyngeal erythema. No thyromegaly. CARDIOVASCULAR: S1 and S2 present. No murmurs, rubs, or gallops. PULMONARY: Significantly limited air entry into bilateral lung hunter. No wheezing was appreciated no crackles were appreciated. Patient has a Thora vent on the right side ABDOMEN: Soft, nontender, nondistended, normoactive bowel sounds. No palpable organomegaly. MUSCULOSKELETAL: No joint swelling or deformity. EXTREMITIES: No cyanosis, clubbing, or pedal edema. NEUROLOGICAL: Gross neurological examination did not reveal any focal deficits. SKIN: No rashes. - Labs CBC & Chem 7: 05/20/17 06:33 05/20/17 06:33 Assessment and Plan Plan: 1 recurrent right-sided pneumothorax, secondary pneumothorax related to underlying COPD and probably bullous disease. The patient is successful expansion with insertion of a thoravent. Patient will undergo repeat CAT scan and further management depending on cardiothoracic surgery recommendations. 2 COPD with bullous disease : Patient does not appear to have been COPD exacerbation continue with instillation treatments does not appear to require any systemic steroids at this point of time. 3 Crohn disease/inflammatory bowel disease or not in acute exacerbation at this time 4 fibromyalgia 5 osteoarthritis/osteoporosis
[2017-05-22] MEDS: MELATONIN 3 MG TABLET PO SCH (21:12)
[2017-05-22] MEDS: LATANOPROST 0.005% OPHTH DROPS 2.5 ML BTL BOTH EYES SCH (21:12)
[2017-05-23] MEDS: HEPARIN SODIUM,PORCINE 5,000 UNIT/ML 1 ML VIAL SQ SCH ×2 (00:23→09:31)
[2017-05-23] MEDS: MORPHINE SULFATE 4 MG/ML SYRINGE IV PRN ×4 (00:25→13:19)
[2017-05-23] MEDS: ONDANSETRON 4 MG/2 ML VIAL IVP PRN ×2 (05:08→13:20)
--- NOTE | 2017-05-23 07:57 | XR ---
EXAMINATION TYPE: XR chest 2V DATE OF EXAM: 05/23/2017 COMPARISON: 05/22/2017 HISTORY: 57-year-old female follow-up pneumothorax and effusion TECHNIQUE: Frontal and lateral views. FINDINGS: Heart is normal size. Aorta and pulmonary vasculature are within normal limits. Bullous emphysema wit h hyperinflation and stable masslike opacity left upper lobe. A Heimlich valve remains in place at th e right apex. Old healed right-sided rib fracture deformities. No appreciable pneumothorax. No defini te pleural effusion on the lateral view. Some foci of subcutaneous emphysema along the right hemithor ax. IMPRESSION: 1. Bullous emphysema with Heimlich valve on the right. No appreciable pneumothorax. 2. Stable masslike opacity left upper lobe.
--- NOTE | 2017-05-23 08:33 | P.PN ---
<Melinda Bellamy - Last Filed: 05/23/17 08:30> Subjective Principal diagnosis: Recurrent right pleural effusion. COPD. History of pneumonia. Previous tobacco dependence, although just recently quit. POD #4 Thora-vent placement by ER with re-expansion of the right lung. Patient's currently sitting up in bed in no acute distress. Denies chest pain , shortness of breath. Anxious to go home. Objective - Vital Signs Vital signs: Vital Signs Temp 97.1 F L 05/23/17 04:00 Pulse 87 05/23/17 04:00 Resp 18 05/23/17 04:00 BP 106/71 05/23/17 04:00 Pulse Ox 92 L 05/23/17 04:00 Intake & Output 05/22/17 05/23/17 05/23/17 18:59 06:59 18:59 Intake Total 240 360 Output Total 300 Balance 240 60 Weight 48.3 kg Intake: Oral 240 360 Output: Chest Tube Drainage 0 Thora-Vent Right Anterior 0 Chest Urine 300 Other: Voiding Method Toilet Toilet # Voids 1 1 # Bowel Movements 1 - Constitutional General appearance: Present: cooperative, no acute distress - Respiratory Details: Lungs sounds coarse bilaterally. Respirations even, nonlabored. Currently on room air with oxygen saturations 92%. Right thoravent present,capped. - Cardiovascular Details: S1, S2 present. Regular rate and rhythm, normal sinus rhythm to sinus tach on telemetry. No edema present. - Gastrointestinal Gastrointestinal Comment(s): Abdomen soft, nontender, nondistended. Active bowel sounds 4 quadrants. Tolerating diet. - Genitourinary Genitourinary Comment(s): Continues to void clear, yellow urine. - Musculoskeletal Musculoskeletal: Present: gait normal, strength equal bilaterally - Psychiatric Psychiatric: Present: A&O x's 3, appropriate affect, intact judgment & insight - Allied health notes Allied health notes reviewed: nursing - Labs CBC & Chem 7: 05/20/17 06:33 05/20/17 06:33 - Imaging and Cardiology Chest x-ray: report reviewed, image reviewed Assessment and Plan (1) Acute exacerbation of chronic obstructive airways disease Status: Acute (2) Pneumothorax, right Status: Acute (3) Tobacco dependence in remission Status: Acute Plan: 1. Thoravent plugged yesterday. Chest x-ray this morning demonstrates no pneumothorax. Will discuss with Dr. Mistry plan for removal versus sending patient home with thoravent in place. 2. Encourage incentive spirometry use. 3. Continue to encourage smoking cessation. 4. Increase activity, ambulate in hallway. 5. Medical comorbidities to be managed by primary/pulmonology service. Time with Patient: Greater than 30 <Ford Duarte - Last Filed: 05/23/17 12:11> Objective - Vital Signs Vital signs: Vital Signs Temp 97.6 F 05/23/17 08:00 Pulse 96 05/23/17 09:03 Resp 16 05/23/17 08:00 BP 112/69 05/23/17 08:00 Pulse Ox 93 L 05/23/17 08:00 Intake & Output 05/22/17 05/23/17 05/23/17 18:59 06:59 18:59 Intake Total 240 360 240 Output Total 300 0 Balance 240 60 240 Weight 48.3 kg Intake: Oral 240 360 240 Output: Chest Tube Drainage 0 0 Thora-Vent Right Anterior 0 0 Chest Urine 300 Other: Voiding Method Toilet Toilet Toilet # Voids 1 1 # Bowel Movements 1 - Labs CBC & Chem 7: 05/20/17 06:33 05/20/17 06:33 Assessment and Plan Plan: The patient was seen and examined. I agree with the above assessment and plan. Her Thoravent was plugged yesterday. Her chest x-ray reveals no pneumothorax. She has no air leak today. We will discuss with Dr. Mistry regarding possible discharge home today.
[2017-05-23] MEDS: IPRATROPIUM-ALBUTEROL 3 ML NEB INHALATION SCH ×2 (08:51→12:53)
[2017-05-23] MEDS: MERCAPTOPURINE 50 MG TAB PO SCH (09:32)
[2017-05-23] MEDS: CHOLECALCIFEROL 1,000 UNIT TAB PO SCH (09:32)
[2017-05-23] MEDS: ATENOLOL 25 MG TAB PO SCH (09:33)
[2017-05-23] MEDS: busPIRone HCl 10 MG TAB PO SCH (09:33)
[2017-05-23] MEDS: CALCIUM CARB-VIT D 500MG-200UN 1 EACH TAB PO SCH (09:33)
[2017-05-23 09:49] VITALS: RESP 16
--- NOTE | 2017-05-23 12:39 | P.DS ---
Providers Date of admission: 05/19/17 23:01 Attending physician: Tamera Swan Consults: 05/19/17 23:01 Consult Physician Urgent Consulting Provider: Michael Meza Consult Reason/Comments: Recurrent spontaneous pneumothorax Do you want consulting provider notified?: Yes, Notify in am 05/20/17 11:01 Consult Physician Routine Consulting Provider: Manas Jordan Consult Reason/Comments: left upper lobe mass and recurrent pneumothorax Do you want consulting provider notified?: Already Contacted Primary care physician: Stated None Hospital Course: Patient is admitted for right-sided pneumothorax and patient has Thoravent, cardiothoracic surgery is recommending monitoring. Patient is clinically doing well. Patient will be discharged with thoravent. Patient was cleared by cardio- thoracic surgery and pulmonary. Patient doesn't have any more air leakage. Patient thoravent was sealed the last yesterday without any increase in pneumothorax. 1 recurrent right-sided pneumothorax, secondary pneumothorax related to underlying COPD and probably bullous disease. The patient is successful expansion with insertion of a thoravent. 2 COPD with bullous disease : Patient does not appear to have been COPD exacerbation continue with instillation treatments does not appear to require any systemic steroids at this point of time. 3 Crohn disease/inflammatory bowel disease or not in acute exacerbation at this time 4 fibromyalgia 5 osteoarthritis/osteoporosis PHYSICAL EXAMINATION: GENERAL: The patient is alert and oriented x3, not in any acute distress. Well developed, well nourished. HEENT: Pupils are round and equally reacting to light. EOMI. No scleral icterus. No conjunctival pallor. Normocephalic, atraumatic. No pharyngeal erythema. No thyromegaly. CARDIOVASCULAR: S1 and S2 present. No murmurs, rubs, or gallops. PULMONARY: Chest is clear to auscultation, no wheezing or crackles. ABDOMEN: Soft, nontender, nondistended, normoactive bowel sounds. No palpable organomegaly. MUSCULOSKELETAL: No joint swelling or deformity. EXTREMITIES: No cyanosis, clubbing, or pedal edema. NEUROLOGICAL: Gross neurological examination did not reveal any focal deficits. SKIN: No rashes. Patient Condition at Discharge: Stable Plan - Discharge Summary New Discharge Prescriptions: New HYDROcodone/APAP 5-325MG [[place] 5-325] 1 tab PO Q4HR PRN #30 tab PRN Reason: Pain Continue Adalimumab [Humira Pen] 40 mg SQ FR Aclidinium Melber [Tudorza Pressair] 400 mcg INHALATION RT-BID Acetaminophen-Codeine 300-30mg [Tylenol w/codeine #3] 2 tab PO Q6H PRN PRN Reason: Pain Fluticasone/Vilanterol [Breo Ellipta 100-25 Mcg Inhaler] 1 puff INHALATION RT -DAILY Opium Tincture 2 ml PO QID Multivitamins, Thera [Multivitamin (formulary)] 1 tab PO DAILY Calcium Carb-Vit D 500Mg-200Un [Oscal 500+D] 1 tab PO BID Mercaptopurine [Purinethol] 100 mg PO DAILY Ipratropium-Albuterol Nebulize [Duoneb 0.5 mg-3 mg/3 ml Soln] 3 ml INHALATION RT-QID neb Albuterol Sulfate [Proair Hfa] 2 puff INHALATION RT-Q6H PRN PRN Reason: Shortness Of Breath Hydrocodone/Acetaminophen [Vicodin Es 7.5-300 mg Tablet] 1 tab PO TID Denosumab [Prolia] 60 mg SQ Q180D busPIRone HCl [Buspar] 20 mg PO BID Cyanocobalamin [Vitamin B-12 Injection] 1,000 mcg SQ QMONTH Dicyclomine [Bentyl] 10 mg PO QID PRN PRN Reason: spasms Cholecalciferol [Vitamin D3] 3,000 unit PO DAILY Melatonin 3 mg PO HS tab Nicotine 21Mg/24Hr Patch [Habitrol] 1 patch TRANSDERM DAILY patch predniSONE See Taper PO DAILY #30 tab Atenolol 25 mg PO DAILY Latanoprost Ophth [Xalatan 0.005%] 1 drop BOTH EYES HS Discharge Medication List Aclidinium Melber [Tudorza Pressair] 400 mcg INHALATION RT-BID 06/21/14 [ History] Adalimumab [Humira Pen] 40 mg SQ FR 06/21/14 [History] Acetaminophen-Codeine 300-30mg [Tylenol w/codeine #3] 2 tab PO Q6H PRN 08/18/14 [History] Calcium Carb-Vit D 500Mg-200Un [Oscal 500+D] 1 tab PO BID 04/27/16 [History] Fluticasone/Vilanterol [Breo Ellipta 100-25 Mcg Inhaler] 1 puff INHALATION RT- DAILY 04/27/16 [History] Multivitamins, Thera [Multivitamin (formulary)] 1 tab PO DAILY 04/27/16 [History ] Opium Tincture 2 ml PO QID 04/27/16 [History] Mercaptopurine [Purinethol] 100 mg PO DAILY 02/22/17 [History] Ipratropium-Albuterol Nebulize [Duoneb 0.5 mg-3 mg/3 ml Soln] 3 ml INHALATION RT -QID neb 03/22/17 [Rx] Albuterol Sulfate [Proair Hfa] 2 puff INHALATION RT-Q6H PRN 05/09/17 [History] Cholecalciferol [Vitamin D3] 3,000 unit PO DAILY 05/09/17 [History] Cyanocobalamin [Vitamin B-12 Injection] 1,000 mcg SQ QMONTH 05/09/17 [History] Denosumab [Prolia] 60 mg SQ Q180D 05/09/17 [History] Dicyclomine [Bentyl] 10 mg PO QID PRN 05/09/17 [History] Hydrocodone/Acetaminophen [Vicodin Es 7.5-300 mg Tablet] 1 tab PO TID 05/09/17 [ History] busPIRone HCl [Buspar] 20 mg PO BID 05/09/17 [History] Melatonin 3 mg PO HS tab 05/11/17 [Rx] Nicotine 21Mg/24Hr Patch [Habitrol] 1 patch TRANSDERM DAILY patch 05/11/17 [Rx] predniSONE See Taper PO DAILY #30 tab 05/12/17 [Rx] Atenolol 25 mg PO DAILY 05/20/17 [History] Latanoprost Ophth [Xalatan 0.005%] 1 drop BOTH EYES HS 05/21/17 [History] HYDROcodone/APAP 5-325MG [[place] 5-325] 1 tab PO Q4HR PRN #30 tab 05/23/17 [Rx] Follow up Appointment(s)/Referral(s): Tacho Scott MD [STAFF PHYSICIAN] - 05/26/17 11:30 am [facility], [NON-STAFF] - As Needed None,Stated [Primary Care Provider] - 3 Days Jazmine Mistry MD [STAFF PHYSICIAN] - 06/02/17 1:00 pm Patient Instructions/Handouts: Spontaneous Pneumothorax (DC) Discharge Disposition: HOME SELF-CARE
[2017-05-23 12:57] VITALS: BP 101/73; PULSE 92; TEMP 97.4
[2017-05-23] MEDS: MULTIVITAMINS, THERA 1 EACH TAB PO SCH (13:19)
--- NOTE | 2017-05-23 15:49 | P.PN ---
Subjective 56-year-old male patient with known history of advanced COPD with an FEV1 of 36 % of predicted along with previous hospitalizations for COPD exacerbations coming in for recurrent right-sided pneumothorax. The patient was in for the same on 05/12/2017. She was treated with a thoravent that was inserted into the right chest with successful reexpansion of the right lung. After successful expansion, the tube was removed and the patient was discharged home approximately a week ago. She was doing well and yesterday while doing some computer work at home she felt acute shortness of breath and discomfort noted right chest area and she thought she had the same problem again. Sure enough the patient presented to the ED and she was found to have a large right-sided pneumothorax and another Thoravent was inserted. We have had again successful reexpansion. Today's chest x-ray is showing minimal right apical pneumothorax. There is however extensive emphysematous changes bilaterally and there is also left upper lobe opacity and for that reason a CAT scan of the chest will be ordered with contrast. Clinically is doing well. She is hemodynamically stable. No cough or sputum production. No chest pain. No hemoptysis. No pleurisy. No major swelling lower extremities. No other complaints otherwise. On 05/21/2017 the patient is being seen in follow-up. She is still has a thoravent in her right chest. CAT scan of the chest was done yesterday and it showed a severe bullous emphysema and the large 12 x 8 cm bolus in the right upper lobe with a right chest tube being in a good position and another 3 cm stellate infiltrated the anterior segment of the right upper lobe and a 5 x 3 cm spiculated infiltrate in the posterior segment of the left upper lobe. There is diffuse emphysema. Subcutaneous air is also seen along the right- sided chest wall. Today chest x-ray shows no evidence of any pneumothorax. Surgical consultation is still pending for now. I'm inclined to keep the chest tube for quite some time and probably discharge patient home with the chest tube. She has no specific complaints otherwise for now. On 05/22/2017 the patient is stable. Today's chest x-ray showed no evidence of any pneumothorax on the right. The thoravent is still in place. This is day 3 of placement. There is full expansion of the right lung. No acute respiratory distress. No chest pain. No shortness of breath. No subcutaneous emphysema. The cap of the tube will be plugged and a repeat chest x-ray we will obtain tomorrow. No plans for any surgical intervention and the patient will likely go home with a sore vent for the next week or so. I'm inclined to keep the tube in for at least a week or 2 even if there is no developement of pneumothorax while the tube being capped. The patient is seen again today 05/23/2017 in the selective care unit. She is resting quite comfortably in bed. She is awake and alert in no acute distress breasts. Most recent chest x-ray did not reveal any evidence of pneumothorax. The ThoraVent remains in place. She is quite anxious to go home. She is maintaining good O2 saturations in the 90s on room air. She's been hemodynamically stable. Afebrile. Objective - Vital Signs Vital signs: Vital Signs Temp 97.4 F L 05/23/17 12:00 Pulse 92 05/23/17 12:00 Resp 16 05/23/17 12:00 BP 101/73 05/23/17 12:00 Pulse Ox 94 L 05/23/17 12:00 Intake & Output 05/22/17 05/23/17 05/23/17 18:59 06:59 18:59 Intake Total 240 360 240 Output Total 300 0 Balance 240 60 240 Weight 48.3 kg Intake: Oral 240 360 240 Output: Chest Tube Drainage 0 0 Thora-Vent Right Anterior 0 0 Chest Urine 300 Other: Voiding Method Toilet Toilet Toilet # Voids 1 1 # Bowel Movements 1 - Exam Head exam was generally normal. There was no scleral icterus or corneal arcus. Mucous membranes were moist.Neck was supple and without jugular venous distension, thyromegaly, or carotid bruits. Carotids were easily palpable bilaterally. There was no adenopathy. Lung sounds are diminished bilaterally. There is no subcutaneous emphysema. There is a thoravent over the anterior chest area. No evidence of any leak from the valve attached to the thoravent.Cardiac exam revealed the PMI to be normally situated and sized. The rhythm was regular and no extrasystoles were noted during several minutes of auscultation. The first and second heart sounds were normal and physiologic splitting of the second heart sound was noted. There were no murmurs, rubs, clicks, or gallops. Abdominal exam revealed normal bowel sounds. The abdomen was soft, non-tender, and without masses, organomegaly, or appreciable enlargement of the abdominal aorta. The patient has a ileostomy.Examination of the extremities revealed easily palpable radial, femoral and pedal pulses. There was no cyanosis, clubbing or edema. - Labs CBC & Chem 7: 05/20/17 06:33 05/20/17 06:33 Assessment and Plan Plan: Assessment 1 recurrent right-sided pneumothorax, secondary pneumothorax related to underlying COPD and probably bullous disease. The patient is successful expansion with insertion of a thoravent. Note that this pneumothorax occurred within a week of discharge from a similar admission for a right-sided pneumothorax. 2 COPD with bullous disease 3 left upper lobe opacity rule out underlying mass/pneumonia/fluid-filled cavity /fluid-filled bullous. CAT scan of the chest will be needed. 4 chronic dyspnea secondary to above 5 Crohn disease/inflammatory bowel disease 6 fibromyalgia 7 ileostomy 8 osteoarthritis/osteoporosis 9 history of smoking Plan: The patient was seen and evaluated by Dr. Mistry. Her chest x-ray was reviewed. She is cleared for discharge from the pulmonary standpoint. We would prefer she keep the ThoraVent catheter in place and capped. She'll be seen in our office in 1-2 weeks' time. A repeat chest x-ray will be done. We may discontinue it at that time. She is aware of her symptoms of spontaneous pneumothorax as her second one within 2 weeks. She will return to the emergency room with any similar symptoms.
== END 2017-05-23 15:24 | disposition home health service (06) | DRG 200 ==
LOC: EC 20:08 → 6SEL 23:01
PROVIDERS: ADMIT Internal Medicine; ATTEND Internal Medicine
PROC: 0W9930Z Drainage of Right Pleural Cavity with Drainage Device, Percutaneous Approach (ICD-10-PCS; principal; 2017-05-19)
DX: J93.83 Other pneumothorax (principal); K50.90 Crohn's disease, unspecified, without complications; J44.9 Chronic obstructive pulmonary disease, unspecified; K21.9 Gastro-esophageal reflux disease without esophagitis; R00.0 Tachycardia, unspecified; M19.90 Unspecified osteoarthritis, unspecified site; J30.2 Other seasonal allergic rhinitis; K44.9 Diaphragmatic hernia without obstruction or gangrene; M79.7 Fibromyalgia; M81.0 Age-related osteoporosis without current pathological fracture; F17.201 Nicotine dependence, unspecified, in remission; Z79.899 Other long term (current) drug therapy; Z82.62 Family history of osteoporosis; Z80.8 Family history of malignant neoplasm of other organs or systems; Z82.5 Family history of asthma and other chronic lower respiratory diseases; Z87.01 Personal history of pneumonia (recurrent); Z71.3 Dietary counseling and surveillance; Z81.8 Family history of other mental and behavioral disorders; Z63.6 Dependent relative needing care at home; Z90.49 Acquired absence of other specified parts of digestive tract; Z90.710 Acquired absence of both cervix and uterus; Z87.19 Personal history of other diseases of the digestive system; Z93.2 Ileostomy status; Z71.6 Tobacco abuse counseling; Z88.2 Allergy status to sulfonamides; Z88.8 Allergy status to other drugs, medicaments and biological substances; Z88.6 Allergy status to analgesic agent; Z91.041 Radiographic dye allergy status; Z79.83 Long term (current) use of bisphosphonates; Z79.891 Long term (current) use of opiate analgesic; Z79.51 Long term (current) use of inhaled steroids; Z92.25 Personal history of immunosuppression therapy; Z90.721 Acquired absence of ovaries, unilateral; Z90.79 Acquired absence of other genital organ(s); Z87.410 Personal history of cervical dysplasia; Z87.42 Personal history of other diseases of the female genital tract
CPT/HCPCS: 32551; 36415; 71010; 71020; 71260; 80048; 80053; 82550; 82553; 83735; 84484; 85025; 85027; 85379; 85610; 85730; 86850; 86900; 86901; 93005; 94640; 96374; 96376; 99291

== ENCOUNTER 2017-06-24 10:40 | Inpatient (IN) | payer BC ==
[2017-06-24] MEDS ORDERED: SODIUM CHLORIDE 0.9% 1,000 ML IV STA (10:54)
[2017-06-24] MEDS ORDERED: ONDANSETRON 4 MG/2 ML VIAL IVP STA (10:54)
[2017-06-24] MEDS ORDERED: diphenhydrAMINE 50 MG/ML 1 ML VIAL IVP STA (10:54)
[2017-06-24] MEDS ORDERED: LORazepam 2 MG/ML SYRINGE IV STA (10:55)
[2017-06-24 11:14] LABS: Basophils % (A) 0 %; CH 32.9; CHCM 34.4; Eosinophils % (A) 1 %; HCT 39.6 % (34.0-46.0); HDW 3.12; HGB 13.1 gm/dL (11.4-16.0); Luc # (Auto) 0.32; Luc % (Auto) 4; Lymphocytes # (A) 1.8 k/uL (1.0-4.8); Lymphocytes % (A) 23 %; MCH 31.7 pg (25.0-35.0); Mean Platelet Volume 7.8; Monocytes # (A) 0.6 k/uL (0-1.0); Monocytes % (A) 8 %; Neutrophils # (A) 4.9 k/uL (1.3-7.7); Neutrophils % (A) 63 %; RBC 4.13 m/uL (3.80-5.40); RDW 15.2 % (11.5-15.5); WBC 7.8 k/uL (3.8-10.6); WBC (Perox) 7.75
[2017-06-24] MEDS ORDERED: HYDROmorphone 1 MG/ML 1 ML SYRINGE IVP STA (11:22)
[2017-06-24 11:23] LABS: ALT 25 U/L (9-52); AST 16 U/L (14-36); Alkaline Phosphatase 45 U/L (38-126); Anion Gap 10 mmol/L; Blood Urea Nitrogen 13 mg/dL (7-17); Calcium 8.4 mg/dL (8.4-10.2); Carbon Dioxide 21 mmol/L (22-30); Chloride 110 mmol/L (98-107); Glucose 79 mg/dL (74-99); Magnesium 1.2 mg/dL (1.6-2.3); Non-African American GFR(MDRD) >60 (>60 ml/min/1.73 sqM); Phosphorous 3.7 mg/dL (2.5-4.5); Potassium 3.8 mmol/L (3.5-5.1); Sodium 141 mmol/L (137-145); Total Bilirubin 0.4 mg/dL (0.2-1.3); Total Protein 5.5 g/dL (6.3-8.2)
[2017-06-24] MEDS ORDERED: RX INFO: IV CONTRAST WAS GIVEN 1 EACH MISC MISCELLANE PRN (11:44)
[2017-06-24] MEDS ORDERED: FAMOTIDINE 20 MG/2 ML VIAL IV STA (11:44)
[2017-06-24] MEDS ORDERED: methylPREDNISolone SOD SUCCI 125 MG/2 ML VIAL IV STA (11:44)
--- NOTE | 2017-06-24 11:46 | ED ---
General Adult HPI - General Chief complaint: Nausea/Vomiting/Diarrhea Stated complaint: NVD Time Seen by Provider: 06/24/17 10:43 Source: EMS, RN notes reviewed, old records reviewed Mode of arrival: EMS Limitations: no limitations - History of Present Illness Initial comments: This is a 57-year-old female here for evaluation. Patient is dearly fevers of severe abdominal pain nausea vomiting and lack of bowel movement was. Patient has history of Crohn's, history of bowel obstruction. Patient states this does feel somewhat similar. Denies blood in vomit or stool. Again denies fever, denies any family members with similar complaints. No recent change in medication. Patient states he receive Zofran in route by EMS and has no help with that. - Related Data Home Medications Medication Instructions Recorded Confirmed Aclidinium [place] [Tudorza 400 mcg INHALATION RT-BID 06/21/14 06/24/17 Pressair] Adalimumab [Humira Pen] 40 mg SQ FR 06/21/14 06/24/17 Calcium Carb-Vit D 500Mg-200Un 1 tab PO BID 04/27/16 06/24/17 [Oscal 500+D] Fluticasone/Vilanterol [Breo 1 puff INHALATION RT-HS 04/27/16 06/24/17 Ellipta 100-25 Mcg Inhaler] Multivitamins, Thera [Multivitamin 1 tab PO DAILY 04/27/16 06/24/17 (formulary)] Opium Tincture 2 ml PO QID 04/27/16 06/24/17 Mercaptopurine [Purinethol] 50 mg PO BID 02/22/17 06/24/17 Albuterol Sulfate [Proair Hfa] 2 puff INHALATION RT-Q4H PRN 05/09/17 06/24/17 Cholecalciferol [Vitamin D3] 3,000 unit PO DAILY 05/09/17 06/24/17 Cyanocobalamin [Vitamin B-12 1,000 mcg SQ QMONTH 05/09/17 06/24/17 Injection] Denosumab [Prolia] 60 mg SQ Q180D 05/09/17 06/24/17 Dicyclomine [Bentyl] 10 mg PO QID PRN 05/09/17 06/24/17 busPIRone HCl [Buspar] 10 mg PO BID 05/09/17 06/24/17 Atenolol 25 mg PO DAILY 05/20/17 06/24/17 Latanoprost Ophth [Xalatan 0.005%] 1 drop BOTH EYES HS 05/21/17 06/24/17 Albuterol Nebulized [Ventolin 2.5 mg INHALATION RT-QID PRN 06/24/17 06/24/17 Nebulized] HYDROcodone/APAP 10-325MG [[place] 1 tab PO Q4HR PRN 06/24/17 06/24/17 10-325] Meclizine [Antivert] 25 mg PO TID PRN 06/24/17 06/24/17 Nicotine Polacrilex [Nicotine Gum] 4 mg BUCCAL TID PRN 06/24/17 06/24/17 Previous Rx's Medication Instructions Recorded Melatonin 3 mg PO HS tab 05/11/17 Nicotine 21Mg/24Hr Patch [Habitrol] 1 patch TRANSDERM DAILY patch 05/11/17 Allergies Allergy/AdvReac Type Severity Reaction Status Date / Time Iodinated Contrast- Oral and Allergy Anaphylaxis Verified 06/24/17 13:35 IV Dye Sulfa (Sulfonamide Allergy Rash/Hives Verified 06/24/17 13:35 Antibiotics) aspirin AdvReac Internal Verified 06/24/17 13:35 Bleeding timolol [Timolol] AdvReac Nausea & Verified 06/24/17 13:35 Vomiting Review of Systems ROS Statement: Those systems with pertinent positive or pertinent negative responses have been documented in the HPI. ROS Other: All systems not noted in ROS Statement are negative. Past Medical History Past Medical History: COPD, Fibromyalgia, GERD/Reflux, GI Bleed, Osteoarthritis (OA), Pneumonia Additional Past Medical History / Comment(s): COPD, severe with an FEV1 of 36% of predicted, crohn's, bowel obstructions, lower GI bleeds, hiatal hernia, osteoporosis, arthritis multiple joints, seasonal allergies, right-sided pneumothorax History of Any Multi-Drug Resistant Organisms: None Reported Past Surgical History: Breast Surgery, Cholecystectomy, Hernia Repair, Hysterectomy, Orthopedic Surgery Additional Past Surgical History / Comment(s): Multiple bowel surgeries including total colectomy/ileostomy, ileostomy moved/repaired, R tube and R ovary removed due toectopic , total hysterectomy, leep procedure, laparoscopy for endometriosis, L breast lumpectomy-benign, r breast core bx- benign, EGD/colonoscopies. Right-sided Thora-vent placement May 09 and May 19. Past Anesthesia/Blood Transfusion Reactions: No Reported Reaction Past Psychological History: No Psychological Hx Reported Smoking Status: Former smoker Past Alcohol Use History: None Reported Past Drug Use History: None Reported - Past Family History Mother Family Medical History: Cancer, COPD Additional Family Medical History / Comment(s): Skin cancer and osteoporosis. Father Family Medical History: Dementia Additional Family Medical History / Comment(s): Father is 90yrs old. General Exam Limitations: no limitations General appearance: alert, in no apparent distress Head exam: Present: atraumatic, normocephalic, normal inspection Eye exam: Present: normal appearance, PERRL, EOMI. Absent: scleral icterus, conjunctival injection, periorbital swelling ENT exam: Present: normal exam, mucous membranes moist Neck exam: Present: normal inspection. Absent: tenderness, meningismus, lymphadenopathy Respiratory exam: Present: normal lung sounds bilaterally. Absent: respiratory distress, wheezes, rales, rhonchi, stridor Cardiovascular Exam: Present: regular rate, normal rhythm, normal heart sounds. Absent: systolic murmur, diastolic murmur, rubs, gallop, clicks GI/Abdominal exam: Present: soft, normal bowel sounds. Absent: distended, tenderness, guarding, rebound, rigid Extremities exam: Present: normal inspection, full ROM, normal capillary refill. Absent: tenderness, pedal edema, joint swelling, calf tenderness Back exam: Present: normal inspection Neurological exam: Present: alert, oriented X3, CN II-XII intact Psychiatric exam: Present: normal affect, normal mood Skin exam: Present: warm, dry, intact, normal color. Absent: rash Course Vital Signs 06/24/17 06/24/17 06/24/17 10:47 11:29 12:23 Temperature 97.4 F L Pulse Rate 88 91 89 Respiratory 20 18 18 Rate Blood Pressure 137/76 118/73 95/56 O2 Sat by Pulse 97 99 96 Oximetry 06/24/17 13:51 Temperature Pulse Rate 70 Respiratory 18 Rate Blood Pressure 121/68 O2 Sat by Pulse 96 Oximetry - Reevaluation(s) Reevaluation #1: 06/24/17 14:09 Patient with difficult to control nausea and vomiting, intractable abdominal pain Medical Decision Making - Medical Decision Making 57 he had ER for evaluation of bowel pain with nausea vomiting. History of Crohn's disease, history of multiple bowel surgeries. Patient brought to ER for evaluation regarding significant intractable nausea vomiting think she has obstruction, patient has no evidence of obstruction on CT of the she does have signs of ileus both symptomatically and on imaging. Patient will be admitted for nothing by mouth, symptom control - Lab Data Result diagrams: 06/24/17 10:45 06/24/17 10:45 Lab Results 06/24/17 06/24/17 Range/Units 10:45 10:45 WBC 7.8 (3.8-10.6) k/uL RBC 4.13 (3.80-5.40) m/uL Hgb 13.1 (11.4-16.0) gm/dL Hct 39.6 (34.0-46.0) % MCV 96.0 D (80.0-100.0) fL MCH 31.7 (25.0-35.0) pg MCHC 33.0 (31.0-37.0) g/dL RDW 15.2 (11.5-15.5) % Plt Count 222 (150-450) k/uL Neutrophils % 63 % Lymphocytes % 23 % Monocytes % 8 % Eosinophils % 1 % Basophils % 0 % Neutrophils # 4.9 (1.3-7.7) k/uL Lymphocytes # 1.8 (1.0-4.8) k/uL Monocytes # 0.6 (0-1.0) k/uL Eosinophils # 0.0 (0-0.7) k/uL Basophils # 0.0 (0-0.2) k/uL Sodium 141 (137-145) mmol/L Potassium 3.8 (3.5-5.1) mmol/L Chloride 110 H (98-107) mmol/L Carbon Dioxide 21 L (22-30) mmol/L Anion Gap 10 mmol/L BUN 13 (7-17) mg/dL Creatinine 0.69 (0.52-1.04) mg/dL Est GFR (MDRD) Af Amer >60 (>60 ml/min/1.73 sqM) Est GFR (MDRD) Non-Af >60 (>60 ml/min/1.73 sqM) Glucose 79 (74-99) mg/dL Calcium 8.4 (8.4-10.2) mg/dL Phosphorus 3.7 (2.5-4.5) mg/dL Magnesium 1.2 L (1.6-2.3) mg/dL Total Bilirubin 0.4 (0.2-1.3) mg/dL AST 16 (14-36) U/L ALT 25 (9-52) U/L Alkaline Phosphatase 45 (38-126) U/L Total Protein 5.5 L (6.3-8.2) g/dL Albumin 3.2 L (3.5-5.0) g/dL Lipase 68 (23-300) U/L - Radiology Data Radiology results: report reviewed (CT abdomen and pelvis shows ileus no significant obstruction), image reviewed Disposition Clinical Impression: Dehydration, Lower abdominal pain, Exacerbation of Crohn's disease, Small bowel obstruction, partial Disposition: ADMITTED IP TO THIS [facility] Condition: Fair Referrals: Tacho Scott MD [Primary Care Provider] - 1-2 days
[2017-06-24] MEDS ORDERED: DICYCLOMINE 10 MG/ML 2 ML AMP IM STA (12:16)
--- NOTE | 2017-06-24 13:28 | CT ---
EXAMINATION TYPE: CT abdomen pelvis w con DATE OF EXAM: 06/24/2017 COMPARISON: 02/27/2017 INDICATION: Nausea, vomiting, and diarrhea DLP: 318.8 mGycm, Automated exposure control for dose reduction was used. CONTRAST: 100 mL of Omnipaque 240. Study performed without Oral Contrast TECHNIQUE: Axial images were obtained from above the diaphragm to the pubic rami in the axial plane a t 5 mm thick sections. Reconstructed images are reviewed on the computer in the coronal plane. FINDINGS: Limited CT sections are obtained the lung bases. Emphysematous changes are present. There is some in creased density in the posterior medial left lung base. This could be followed with a CT chest with c ontrast. CT ABDOMEN: Liver: Normal Spleen: Normal Pancreas: Normal Adrenal glands: The adrenal glands are normal. Gallbladder: Surgically absent Kidneys: No masses are evident. No hydronephrosis is present. No cysts are present. Delayed images were obtained through the kidneys, which remain unremarkable. Calcification appears to be external t o the collecting system on the right. This may be vascular in nature. No hydronephrosis is evident. Aorta: Vascular calcification is within the aorta. Inferior vena cava: Normal. CT PELVIS: Loops of bowel within the abdomen and pelvis are normal. There are loops of bowel which are incom pletely distended or lack oral contrast limiting their evaluation. Diverticulosis of the sigmoid colo n is present. Presacral surgical clips are present. There is an ostomy in the right upper quadrant. P erirectal region appears resected. No suspicious dilated loops of bowel are evident. Some ileus may b e present within distal small bowel loops. Appendix: Normal as visualized. Urinary bladder: Normal. Genitourinary structures: Osseous structures: No suspicious lytic or sclerotic lesions. IMPRESSIONS: 1. Mild ileus may be within distal small bowel loops. No change suggest acute obstruction are identi fied. 2. Postsurgical changes with ileostomy right upper quadrant
[2017-06-24] MEDS: MAGNESIUM SULFATE-D5W PMX 1 GM in DEXTROSE/WATER 1 100ML.BAG IVPB SCH ×2 (13:44→17:06)
[2017-06-24] MEDS ORDERED: KETOROLAC 30 MG/ML 1 ML VIAL IVP STA (14:04)
[2017-06-24] MEDS ORDERED: HYDROmorphone 2 MG/ML 1 ML SYRINGE IVP STA (14:04)
[2017-06-24] MEDS ORDERED: LORazepam 2 MG/ML SYRINGE IV PRN (14:04)
[2017-06-24] MEDS ORDERED: METOCLOPRAMIDE 5 MG/ML 2 ML VIAL IVP STA (14:04)
[2017-06-24] MEDS ORDERED: HYDROmorphone 1 MG/ML 1 ML SYRINGE IVP PRN (14:04)
[2017-06-24] MEDS ORDERED: diphenhydrAMINE 50 MG/ML 1 ML VIAL IVP PRN (14:04)
[2017-06-24] MEDS ORDERED: PANTOPRAZOLE 40 MG/10 ML VIAL IVP STA (14:04)
[2017-06-24] MEDS ORDERED: DEXTROSE 5%-0.45% NACL 1,000 ML IV ONE (14:04)
[2017-06-24 16:21] VITALS: BMI 19.3
[2017-06-24] MEDS ORDERED: ALBUTEROL NEBULIZED 2.5 MG/3 ML INHALATION PRN (16:42)
[2017-06-24] MEDS ORDERED: NICORETTE PO PRN (16:42)
[2017-06-24] MEDS ORDERED: GUM PO PRN (16:42)
[2017-06-24] MEDS ORDERED: MECLIZINE 25 MG TAB PO PRN (16:42)
[2017-06-24] MEDS: SODIUM CHLORIDE 0.9% 1,000 ML IV ONE ×2 (16:50→17:07)
[2017-06-24] MEDS: ONDANSETRON 4 MG/2 ML VIAL IVP PRN (16:59)
[2017-06-24] MEDS ORDERED: METOCLOPRAMIDE 5 MG/ML 2 ML VIAL IVP SCH (18:00)
[2017-06-24] MEDS: SYMBICORT 80-4.5 MCG INHALER INHALATION SCH (20:34)
[2017-06-24] MEDS: ALBUTEROL NEBULIZED 2.5 MG/3 ML INHALATION PRN (20:34)
[2017-06-24] MEDS: CALCIUM CARB-VIT D 500MG-200UN 1 EACH TAB PO SCH (21:04)
[2017-06-24] MEDS: busPIRone HCl 10 MG TAB PO SCH (21:04)
[2017-06-24] MEDS: MELATONIN 3 MG TABLET PO SCH (21:05)
[2017-06-24] MEDS: MERCAPTOPURINE 50 MG TAB PO SCH (21:05)
[2017-06-24] MEDS: HYDROmorphone 1 MG/ML 1 ML SYRINGE IVP PRN (21:06)
[2017-06-24] MEDS: LATANOPROST 0.005% OPHTH DROPS 2.5 ML BTL BOTH EYES SCH (21:33)
[2017-06-25] MEDS: METOCLOPRAMIDE 5 MG/ML 2 ML VIAL IVP SCH ×5 (00:08→23:50)
[2017-06-25] MEDS: HYDROmorphone 1 MG/ML 1 ML SYRINGE IVP PRN ×7 (01:14→21:20)
[2017-06-25] MEDS: ONDANSETRON 4 MG/2 ML VIAL IVP PRN ×3 (06:10→21:15)
[2017-06-25] MEDS: busPIRone HCl 10 MG TAB PO SCH ×2 (08:03→21:16)
[2017-06-25] MEDS: ENOXAPARIN 40 MG/0.4 ML SYRINGE SQ SCH (08:03)
[2017-06-25] MEDS: CHOLECALCIFEROL 1,000 UNIT TAB PO SCH (08:03)
[2017-06-25] MEDS: MERCAPTOPURINE 50 MG TAB PO SCH ×2 (08:03→21:32)
[2017-06-25] MEDS: ATENOLOL 25 MG TAB PO SCH (08:04)
[2017-06-25] MEDS: PANTOPRAZOLE 40 MG/10 ML VIAL IVP SCH (08:04)
[2017-06-25] MEDS: CALCIUM CARB-VIT D 500MG-200UN 1 EACH TAB PO SCH ×2 (08:04→21:16)
[2017-06-25] MEDS: ALBUTEROL NEBULIZED 2.5 MG/3 ML INHALATION PRN ×4 (08:08→20:08)
[2017-06-25] MEDS: TIOTROPIUM 18 MCG/PUFF INHALER INHALATION SCH (08:09)
[2017-06-25] MEDS: SYMBICORT 80-4.5 MCG INHALER INHALATION SCH ×2 (08:09→20:08)
[2017-06-25] MEDS ORDERED: SODIUM CHLORIDE 0.9% 1,000 ML IV SCH (10:00)
[2017-06-25] MEDS: MULTIVITAMINS, THERA 1 EACH TAB PO SCH (11:41)
--- NOTE | 2017-06-25 14:56 | P.HPIM ---
History of Present Illness H&P Date: 06/25/17 Chief Complaint: Abdominal pain History of present This is a 57-year-old patient of Dr. Scott. Chronic stable medical conditions include fibromyalgia, GERD, osteoarthritis, hiatal hernia, osteoporosis, history of Crohn's and ulcerative colitis and has had a large bowel resected and chronic ileostomy with intermittent diarrhea. Patient presents with 2 days ago she started off with episodes of severe vomiting diarrhea and abdominal pain. Patient has a baseline has some chronic abdominal pain around the ileostomy site. Patient denies any fever. Appetite had gone down. Didn't file eating anything the day her symptoms started that is 2 days ago. Yesterday morning her vomiting settled down. Does some nausea had lingered. Diarrhea resolved later that day. Review of systems: GEN.: Weak and tired decreased appetite EYES: None HEENT: None NECK: None RESPIRATORY: As above CARDIOVASCULAR: None GASTROINTESTINAL: As above GENITOURINARY: Patient also complained of some dysuria and some dark urine and some suprapubic tenderness MUSCULOSKELETAL: As above] LYMPHATICS: None HEMATOLOGICAL: None PSYCHIATRY: Anxious appearing NEUROLOGICAL: None Past medical history: COPD, fibromyalgia, GERD, osteoarthritis, hiatal hernia, osteoporosis, history of Crohn's and ulcerative colitis with large bowel resection resulting in chronic ileostomy. 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 Patient stopped smoking about a month ago smoked for several years. 2 packs a day close to 40 years. Denies alcohol. Family history: Skin cancer, osteoporosis, dementia Home medications reviewed in the electronic computer. ALLERGIES: IV contrast dye, sulfa, aspirin, Humalog VITAL SIGNS: 97.4, 88, 20, 137/76, 97% room air GENERAL: Average built, sitting up, tired appearing. EYES: Pupils equal. Conjunctiva normal. HEENT: External appearance of nose and ears normal, oral cavity grossly normal. NECK: JVD not raised; masses not palpable. HEART: First and second heart sounds are normal; no edema. LUNGS: Respiratory rate normal; decreased breath sounds prolonged expiration. ABDOMEN: Soft, mild diffuse tenderness, no guarding rigidity, ileostomy bag in place, liver spleen not palpable, no masses palpable. LYMPHATICS: No lymph nodes palpable in the axilla and neck. PSYCH: [Alert and oriented x3; mood and affect anxious appearing l. NEUROLOGICAL: Cranial nerves grossly intact; no facial asymmetry, power and sensation grossly intact. Investigations: White count 7.8, hemoglobin 13.1, platelets 222, potassium 3.8, BNP 13, creatinine 0.69 Computed tomography scan of the abdomen-mild ileus Assessment: Acute severe gastroenteritis probably viral expected to be self-limiting nausea vomiting diarrhea is settling down and patient has still some abdominal pain -severe COPD in an ex-smoker -GERD -Primary osteoarthritis multiple joints bilateral -Chronic Crohn's disease and ulcerative colitis leading to ileostomy following a colectomy -Hiatal hernia Anxiety not otherwise specified -Suspect acute UTI with cystitis Plan: Patient be given IV fluids to combat dehydration from the gastric fundus. We' ll start the patient IV antibiotic and urine has been ordered for UA and culture. Home medications resumed. Care was discussed with the patient. GI and surgery was consulted. Care was discussed with the patient. Questions answered. Patient started on clear liquids will be advanced as tolerated. Past Medical History Past Medical History: COPD, Fibromyalgia, GERD/Reflux, GI Bleed, Osteoarthritis (OA), Pneumonia, Syncope Additional Past Medical History / Comment(s): COPD, severe with an FEV1 of 36% of predicted, crohn's, bowel obstructions, lower GI bleeds, hiatal hernia, osteoporosis, arthritis multiple joints, seasonal allergies, right-sided pneumothorax x2 History of Any Multi-Drug Resistant Organisms: None Reported Past Surgical History: Breast Surgery, Cholecystectomy, Hernia Repair, Hysterectomy, Orthopedic Surgery Additional Past Surgical History / Comment(s): Multiple bowel surgeries including total colectomy/ileostomy, ileostomy moved/repaired, R tube and R ovary removed due toectopic , total hysterectomy, leep procedure, laparoscopy for endometriosis, L breast lumpectomy-benign, r breast core bx- benign, EGD/colonoscopies. Right-sided Thora-vent placement May 09 and May 19. Eye surgery bilateral Past Anesthesia/Blood Transfusion Reactions: No Reported Reaction Past Psychological History: No Psychological Hx Reported Additional Psychological History / Comment(s): Pt currently is staying with her 90 yr old father who has dementia. Her spouse is staying at their home to care for the dogs. 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 She is independent. Smoking Status: Former smoker Past Alcohol Use History: None Reported Additional Past Alcohol Use History / Comment(s): smoker since age 17. pt states she has not smoked since last admission early this month, has been using nicotine patch at home Past Drug Use History: None Reported - Past Family History Mother Family Medical History: Cancer, COPD, Hypertension Additional Family Medical History / Comment(s): Skin cancer and osteoporosis. Father Family Medical History: Cancer, CVA/TIA, Dementia Additional Family Medical History / Comment(s): Father is 90yrs old. Medications and Allergies Home Medications Medication Instructions Recorded Confirmed Type Aclidinium [place] [Tudorza 400 mcg INHALATION RT-BID 06/21/14 06/24/17 History Pressair] Adalimumab [Humira Pen] 40 mg SQ FR 06/21/14 06/24/17 History Calcium Carb-Vit D 500Mg-200Un 1 tab PO BID 04/27/16 06/24/17 History [Oscal 500+D] Fluticasone/Vilanterol [Breo 1 puff INHALATION RT-HS 04/27/16 06/24/17 History Ellipta 100-25 Mcg Inhaler] Multivitamins, Thera [Multivitamin 1 tab PO DAILY 04/27/16 06/24/17 History (formulary)] Opium Tincture 2 ml PO QID 04/27/16 06/24/17 History Mercaptopurine [Purinethol] 50 mg PO BID 02/22/17 06/24/17 History Albuterol Sulfate [Proair Hfa] 2 puff INHALATION RT-Q4H PRN 05/09/17 06/24/17 History Cholecalciferol [Vitamin D3] 3,000 unit PO DAILY 05/09/17 06/24/17 History Cyanocobalamin [Vitamin B-12 1,000 mcg SQ QMONTH 05/09/17 06/24/17 History Injection] Denosumab [Prolia] 60 mg SQ Q180D 05/09/17 06/24/17 History Dicyclomine [Bentyl] 10 mg PO QID PRN 05/09/17 06/24/17 History busPIRone HCl [Buspar] 10 mg PO BID 05/09/17 06/24/17 History Atenolol 25 mg PO DAILY 05/20/17 06/24/17 History Latanoprost Ophth [Xalatan 0.005%] 1 drop BOTH EYES HS 05/21/17 06/24/17 History Albuterol Nebulized [Ventolin 2.5 mg INHALATION RT-QID PRN 06/24/17 06/24/17 History Nebulized] HYDROcodone/APAP 10-325MG [[place] 1 tab PO Q4HR PRN 06/24/17 06/24/17 History 10-325] Meclizine [Antivert] 25 mg PO TID PRN 06/24/17 06/24/17 History Nicotine Polacrilex [Nicotine Gum] 4 mg BUCCAL TID PRN 06/24/17 06/24/17 History Allergies Allergy/AdvReac Type Severity Reaction Status Date / Time Iodinated Contrast- Oral and Allergy Anaphylaxis Verified 06/24/17 13:35 IV Dye Sulfa (Sulfonamide Allergy Rash/Hives Verified 06/24/17 13:35 Antibiotics) aspirin AdvReac Internal Verified 06/24/17 13:35 Bleeding timolol [Timolol] AdvReac Nausea & Verified 06/24/17 13:35 Vomiting Results CBC & Chem 7: 06/24/17 10:45 06/24/17 10:45
[2017-06-25 15:03] LABS: Particle Count 112540; RBC,Urine >182 /hpf (0-5); Squamous Epithelial Cell,Urine 5 /hpf (0-4); WBC,Urine >182 /hpf (0-5)
[2017-06-25 15:21] LABS: Mucus,Urine Few /hpf
[2017-06-25 15:23] LABS: Appearance,Urine Bloody (Clear)
[2017-06-25 15:24] LABS: UA Billing (MACRO vs. MICRO) MICRO
--- NOTE | 2017-06-25 17:07 | CONS ---
REQUESTING PHYSICIAN: Dr. Tacho Scott. REASON FOR CONSULTATION: Nausea, vomiting and diarrhea. HISTORY OF PRESENT ILLNESS: The patient is a 57-year-old pleasant white female known to me from multiple office visits. She has longstanding history of Crohn s ileitis status post coloproctectomy with ileostomy almost 30-years ago. Presently she is maintained on Humira as well as ( ) for several years. The patient was admitted to the hospital with acute onset of right lower quadrant abdominal pain around the ileostomy site followed by nausea and vomiting and increased ileostomy output for two days. She became extremely dehydrated, weak , tired and came to the emergency room and subsequently admitted to the hospital for further workup. Yesterday morning she noticed that her ileostomy output has completely stopped. The abdominal pain progressively got worse. In the emergency room she did have a CT of the abdomen and pelvis that showed no evidence of small bowel obstruction. She was given some Zofran. Her symptoms are better this morning. The nausea, vomiting have resolved. She is currently n.p.o. and requesting for a diet. She still has some right lower quadrant abdominal pain. No blood in the ileostomy bag noted. Her past medical history is significant for longstanding history of Crohns disease, diagnosed 40-years ago, status post ileostomy, status post total proctocolectomy with ileostomy about 30-years ago with recurrent Crohns disease diagnosed about 5 or 6 years ago presently maintained on ( ) as well as Humira every two weeks. History of GERD, hypertension, chronic obstructive pulmonary disease, osteoarthritis, fibromyalgia, recurrent right- sided pneumothorax. PAST SURGICAL HISTORY: Cholecystectomy, back surgery, hysterectomy, hernia repair, total colectomy with ileostomy, left breast lumpectomy. Medications at home include: Tudorza, Humira, Os-Artur, ( ), multivitamin, ( ), ProAir, vitamin D3, Prolia, Bentyl, BuSpar, Xalatan, Ventolin, hydrocodone , Antivert and nicotine gum. ALLERGIES: SULFA, ASPIRIN, TIMOLOL, IODINE. SOCIAL HISTORY: Remote history of smoking, no alcohol use. FAMILY HISTORY: Unremarkable. Mother had skin cancer and chronic obstructive pulmonary disease. Father has dementia. REVIEW OF SYSTEMS: CARDIOPULMONARY: No chest pain or shortness of breath. GENITOURINARY: No dysuria or hematuria. MUSCULOSKELETAL: Unremarkable. SKIN: Unremarkable. ENDOCRINE: Unremarkable. PSYCHIATRIC: Unremarkable. NEUROLOGY: Unremarkable. ENT/VISION: Unremarkable. CONSTITUTIONAL: 10 pounds weight loss. No fever, chills or night sweats. On physical examination, she appears comfortable in no apparent distress. Vital signs are stable. Blood pressure is 132/80, pulse rate is 82 per minute, afebrile. HEENT: Unremarkable. Conjunctivae pink. Sclerae clear. Oral cavity, no lesions. NECK: No JVD or lymph node enlargement. CHEST: Clear to auscultation. HEART: Regular rate and rhythm. ABDOMEN: Soft. Bowel sounds are positive. There was tenderness around the ileostomy site more on the medial side, but no rebound or rigidity. EXTREMITIES: No pedal edema. SKIN: No rashes. NEURO: Alert and oriented x3. No focal deficits. Labs done at the time of admission to the hospital: WBC 7.8, hemoglobin 13.1, and platelets are normal. Basic metabolic panel is within normal limits. C. Diff toxin is negative. CT of the abdomen and pelvis results were reviewed, which did not show any evidence of bowel obstruction. IMPRESSION: This a patient with longstanding history of Crohns disease with active Crohns ileitis presently maintained on ( ) as well as Humira every two weeks on outpatient basis presented to the hospital with acute onset of nausea, vomiting and diarrhea for the last two weeks duration. Clinically she appears dehydrated. Clinically she appears dehydrated. CT of the abdomen did not show any evidence of bowel obstruction. Doubt active Crohns disease at the present time. RECOMMENDATIONS: 1. Continue with symptomatic and supportive care. 2. Antiemetics and IV proton pump inhibitors. 3. I will start her on clear liquid diet and advance as tolerated. 4. Will not start on any IV steroids at the present time. 5. Will repeat labs in the morning. 6. I will follow her close during hospital stay. Thank you for this consultation. CHRISTOPHER
[2017-06-25] MEDS: SODIUM CHLORIDE 0.9% 1,000 ML IV SCH ×2 (17:51→23:47)
[2017-06-25] MEDS: LATANOPROST 0.005% OPHTH DROPS 2.5 ML BTL BOTH EYES SCH (21:17)
[2017-06-25] MEDS: MELATONIN 3 MG TABLET PO SCH (21:17)
[2017-06-26 01:32] VITALS: RESP 20
[2017-06-26] MEDS: HYDROmorphone 1 MG/ML 1 ML SYRINGE IVP PRN ×3 (01:56→08:22)
[2017-06-26] MEDS: ONDANSETRON 4 MG/2 ML VIAL IVP PRN ×2 (01:56→08:12)
[2017-06-26] MEDS: METOCLOPRAMIDE 5 MG/ML 2 ML VIAL IVP SCH ×2 (05:28→12:03)
[2017-06-26 07:50] VITALS: BP 111/67; TEMP 97.4
[2017-06-26] MEDS: PANTOPRAZOLE 40 MG/10 ML VIAL IVP SCH (08:13)
[2017-06-26] MEDS: busPIRone HCl 10 MG TAB PO SCH (08:14)
[2017-06-26] MEDS: SODIUM CHLORIDE 0.9% 1,000 ML IV SCH (08:14)
[2017-06-26] MEDS: CALCIUM CARB-VIT D 500MG-200UN 1 EACH TAB PO SCH (08:14)
[2017-06-26] MEDS: ATENOLOL 25 MG TAB PO SCH (08:14)
[2017-06-26] MEDS: MERCAPTOPURINE 50 MG TAB PO SCH (08:15)
[2017-06-26] MEDS: CHOLECALCIFEROL 1,000 UNIT TAB PO SCH (08:15)
[2017-06-26] MEDS: ENOXAPARIN 40 MG/0.4 ML SYRINGE SQ SCH (08:15)
[2017-06-26] MEDS: TIOTROPIUM 18 MCG/PUFF INHALER INHALATION SCH (08:31)
[2017-06-26] MEDS: SYMBICORT 80-4.5 MCG INHALER INHALATION SCH (08:31)
[2017-06-26 08:33] LABS: Basophils % (A) 0 %; CH 32.1; CHCM 32.5; Eosinophils # (A) 0.2 k/uL (0-0.7); Eosinophils % (A) 2 %; HCT 34.4 % (34.0-46.0); HDW 3.17; HGB 10.8 gm/dL (11.4-16.0); Luc # (Auto) 0.15; Luc % (Auto) 2; Lymphocytes # (A) 2.3 k/uL (1.0-4.8); Lymphocytes % (A) 34 %; MCH 31.2 pg (25.0-35.0); MCHC 31.3 g/dL (31.0-37.0); MCV 99.5 fL (80.0-100.0); Mean Platelet Volume 7.9; Monocytes # (A) 0.4 k/uL (0-1.0); Monocytes % (A) 6 %; Neutrophils # (A) 3.8 k/uL (1.3-7.7); Neutrophils % (A) 56 %; RBC 3.45 m/uL (3.80-5.40); RDW 14.7 % (11.5-15.5); WBC 6.9 k/uL (3.8-10.6); WBC (Perox) 7.13
[2017-06-26 09:36] LABS: Anion Gap 8 mmol/L; Blood Urea Nitrogen 5 mg/dL (7-17); Calcium 8.2 mg/dL (8.4-10.2); Carbon Dioxide 22 mmol/L (22-30); Chloride 113 mmol/L (98-107); Glucose 78 mg/dL (74-99); Non-African American GFR(MDRD) >60 (>60 ml/min/1.73 sqM); Potassium 3.3 mmol/L (3.5-5.1); Sodium 143 mmol/L (137-145)
--- NOTE | 2017-06-26 11:55 | P.PN ---
Subjective 57 -year-old female is being seen on rounds for follow-up visit by surgical service in a patient who presented on the 24 of June with abdominal pain currently patient resting comfortably in bed states the nausea vomiting and abdominal pain have resolved. Is anxious to be discharged home. Patient also states that there is been less ostomy output this morning. In the emergency room patient did have a CAT scan of the abdomen and pelvis that showed no evidence of a small bowel obstruction Patient has a long-standing history of Crohn's disease with active Crohn's ileitis has been followed by GI service. Patient states she plans on being discharged today and will follow-up with GI in the outpatient setting Objective - Vital Signs Vital signs: Vital Signs Temp 97.4 F L 06/26/17 07:00 Pulse 72 06/26/17 07:00 Resp 20 06/26/17 07:00 BP 111/67 06/26/17 07:00 Pulse Ox 98 06/26/17 07:00 Intake & Output 06/25/17 06/26/17 06/26/17 18:59 06:59 18:59 Intake Total 200 2100 Balance 200 2100 Intake: Intake, IV Titration 2100 Amount Sodium Chloride 0.9% 1, 2000 000 ml @ 125 mls/hr IV . Q8H MEENU Rx#:[id number] cefTRIAXone 1,000 mg In 100 Sodium Chloride 0.9% 50 ml @ 100 mls/hr IVPB Q24HR MEENU Rx#:[id number] Oral 200 Other: Voiding Method Toilet Toilet Toilet # Voids 3 # Bowel Movements 2 - Exam Physical exam 57-year-old female resting comfortably in bed states abdominal pain has resolved reports no nausea vomiting Lungs essentially clear adequate air movement on room air Heart S1-S2 audible regular Abdomen soft nontender ostomy right lower quadrant scant amount of drainage in the ostomy bag patient states no nausea no vomiting and abdominal pain gone on "patient states urinating no difficulty Extremities no edema noted - Labs CBC & Chem 7: 06/26/17 08:08 06/26/17 08:08 Labs: Abnormal Lab Results - Last 24 Hours (Table) 06/25/17 06/26/17 06/26/17 Range/Units 14:45 08:08 08:08 RBC 3.45 L (3.80-5.40) m/uL Hgb 10.8 L (11.4-16.0) gm/dL Potassium 3.3 L (3.5-5.1) mmol/L Chloride 113 H (98-107) mmol/L BUN 5 L (7-17) mg/dL Calcium 8.2 L (8.4-10.2) mg/dL Urine Appearance Bloody H (Clear) Urine RBC >182 H (0-5) /hpf Urine WBC >182 H (0-5) /hpf Ur Squamous Epith Cells 5 H (0-4) /hpf Urine Mucus Few H (None) /hpf Microbiology - Last 24 Hours (Table) 06/25/17 14:45 Urine Culture - Preliminary Urine,Voided Assessment and Plan Plan: Impression Present on admission nausea vomiting right lower quadrant pain. Increased ostomy output suspect due due to acute severe gastroenteritis likely viral resolved Long-standing history of Crohn's disease status post ileostomy diagnosed 40 years prior Electrolyte abnormality hypokalemia Esophageal reflux disease Computed tomography scan abdomen pelvis show no evidence of a bowel obstruction Plan No evidence of an acute surgical intervention From a surgical perspective patient is felt to be hemodynamically stable for discharge defer to the timing of the discharge to the medical service Resume home meds as appropriate Potassium to be replaced We'll sign off re-eval as clinical issues arise The above impression and plan of care have been discussed and directed by signing physician. Kayli Linda nurse practitioner acting as scribe for signing physician.
[2017-06-26] MEDS: POTASSIUM CHLORIDE ER 20 MEQ TAB.ER PO SCH ×2 (12:03→13:18)
[2017-06-26] MEDS: MULTIVITAMINS, THERA 1 EACH TAB PO SCH (12:03)
[2017-06-26 12:22] VITALS: PULSE 75
--- NOTE | 2017-06-27 21:45 | P.DS ---
<Mitzi Hawthorne - Last Filed: 06/27/17 21:38> Providers Date of admission: 06/24/17 14:09 Expected date of discharge: 06/26/17 Attending physician: Lokesh Austin Consults: 06/24/17 14:04 Consult Physician Routine Consulting Provider: Bonnie Verma Consult Reason/Comments: david Do you want consulting provider notified?: Yes 06/24/17 14:24 Consult Physician Routine Consulting Provider: Jane Whatley Consult Reason/Comments: known Do you want consulting provider notified?: Yes Primary care physician: Duane L. Waters Hospital Course: FINAL DIAGNOSES: -Acute severe gastroenteritis probably viral expected to be self-limiting -severe COPD in an ex-smoker -GERD -Primary osteoarthritis multiple joints bilateral -Chronic Crohn's disease and ulcerative colitis leading to ileostomy following a colectomy -Hiatal hernia -Anxiety not otherwise specified -Suspect acute UTI with cystitis HOSPTIAL COURSE: 57-year-old female presented with acute severe gastroenteritis likely viral. Patient admitted, IV fluids , IV antibiotics initiated. Consults placed to GI and surgery. It was felt that abdominal complaints were of a nonsurgical nature from both GI and general surgery and therefore encouraged supportive care that was already in place. No further nausea vomiting diarrhea no white count no fever. Tolerating her diet, having expected output from her ostomy, ambulatory in the room and davies. Patient's condition is stabilized and as such would like to go home. PHYSICAL EXAM: CARDIOVASCULAR: First and second sounds noted no edema RESPIRATORY: Respiratory effort normal, bilateral breath sounds diminished some mild expiratory wheezing GI: Abdomen soft mild tenderness, ostomy in place to the right lower quadrant some formed brown stool in the bag. Patient was seen and examined by nurse practitioner Mitzi Hawthorne in all elements of the case discussed with attending Dr. Austin DISPOSITION: Discharge home to the care of her family Patient Condition at Discharge: Fair Plan - Discharge Summary New Discharge Prescriptions: New Cefuroxime [Ceftin] 250 mg PO BID #14 tablet Continue Adalimumab [Humira Pen] 40 mg SQ FR Aclidinium Vergas [Tudorza Pressair] 400 mcg INHALATION RT-BID Fluticasone/Vilanterol [Breo Ellipta 100-25 Mcg Inhaler] 1 puff INHALATION RT -HS Opium Tincture 2 ml PO QID Multivitamins, Thera [Multivitamin (formulary)] 1 tab PO DAILY Calcium Carb-Vit D 500Mg-200Un [Oscal 500+D] 1 tab PO BID Mercaptopurine [Purinethol] 50 mg PO BID Albuterol Sulfate [Proair Hfa] 2 puff INHALATION RT-Q4H PRN PRN Reason: Shortness Of Breath Denosumab [Prolia] 60 mg SQ Q180D busPIRone HCl [Buspar] 10 mg PO BID Cyanocobalamin [Vitamin B-12 Injection] 1,000 mcg SQ QMONTH Dicyclomine [Bentyl] 10 mg PO QID PRN PRN Reason: Abdominal Spasms Cholecalciferol [Vitamin D3] 3,000 unit PO DAILY Melatonin 3 mg PO HS tab Nicotine 21Mg/24Hr Patch [Habitrol] 1 patch TRANSDERM DAILY patch Atenolol 25 mg PO DAILY Latanoprost Ophth [Xalatan 0.005%] 1 drop BOTH EYES HS Albuterol Nebulized [Ventolin Nebulized] 2.5 mg INHALATION RT-QID PRN PRN Reason: Shortness Of Breath HYDROcodone/APAP 10-325MG [[place] 10-325] 1 tab PO Q4HR PRN PRN Reason: Abdominal Pain Nicotine Polacrilex [Nicotine Gum] 4 mg BUCCAL TID PRN PRN Reason: Nicotine Cravings Discontinued Meclizine [Antivert] 25 mg PO TID PRN PRN Reason: Nausea/Vertigo Discharge Medication List Aclidinium Vergas [Tudorza Pressair] 400 mcg INHALATION RT-BID 06/21/14 [ History] Adalimumab [Humira Pen] 40 mg SQ FR 06/21/14 [History] Calcium Carb-Vit D 500Mg-200Un [Oscal 500+D] 1 tab PO BID 04/27/16 [History] Fluticasone/Vilanterol [Breo Ellipta 100-25 Mcg Inhaler] 1 puff INHALATION RT- HS 04/27/16 [History] Multivitamins, Thera [Multivitamin (formulary)] 1 tab PO DAILY 04/27/16 [History ] Opium Tincture 2 ml PO QID 04/27/16 [History] Mercaptopurine [Purinethol] 50 mg PO BID 02/22/17 [History] Albuterol Sulfate [Proair Hfa] 2 puff INHALATION RT-Q4H PRN 05/09/17 [History] Cholecalciferol [Vitamin D3] 3,000 unit PO DAILY 05/09/17 [History] Cyanocobalamin [Vitamin B-12 Injection] 1,000 mcg SQ QMONTH 05/09/17 [History] Denosumab [Prolia] 60 mg SQ Q180D 05/09/17 [History] Dicyclomine [Bentyl] 10 mg PO QID PRN 05/09/17 [History] busPIRone HCl [Buspar] 10 mg PO BID 05/09/17 [History] Melatonin 3 mg PO HS tab 05/11/17 [Rx] Nicotine 21Mg/24Hr Patch [Habitrol] 1 patch TRANSDERM DAILY patch 05/11/17 [Rx] Atenolol 25 mg PO DAILY 05/20/17 [History] Latanoprost Ophth [Xalatan 0.005%] 1 drop BOTH EYES HS 05/21/17 [History] Albuterol Nebulized [Ventolin Nebulized] 2.5 mg INHALATION RT-QID PRN 06/24/17 [ History] HYDROcodone/APAP 10-325MG [[place] 10-325] 1 tab PO Q4HR PRN 06/24/17 [History] Nicotine Polacrilex [Nicotine Gum] 4 mg BUCCAL TID PRN 06/24/17 [History] Cefuroxime [Ceftin] 250 mg PO BID #14 tablet 06/26/17 [Rx] Follow up Appointment(s)/Referral(s): Tacho Scott MD [Primary Care Provider] - 06/27/17 7:00 pm Ambulatory/Diagnostic Orders: Basic Metabolic Panel [LAB.AMB] Location: Determined By Patient Patient Instructions/Handouts: Dehydration (DC), Crohn Disease (DC), Gastroenteritis (DC) Activity/Diet/Wound Care/Special Instructions: Pt home meds in med fridge Discharge Disposition: HOME SELF-CARE <Lokesh Austin - Last Filed: 06/28/17 19:25> Hospital Course: Attending note. Date of service-06/26/2017 This patient was seen and examined by me . Discussed the patient with my nurse practitioner Ms. Hawthorne. Feeling better. No nausea vomiting. Tolerating a diet. On examination: Abdomen soft mild tenderness. Psych AO 3 Investigations: White count 6.9 Assessment and plan: Acute gastroenteritis improved. Acute cystitis and UTI improving-culture negative. Stable to be discharged on Ceftin. Care discussed with the patient.
[2017-06-30] MEDS ORDERED: HUMIRA 40MG/0.8ML SQ SCH (09:00)
== END 2017-06-26 14:24 | disposition home or self-care (01) | DRG 392 ==
LOC: EC 10:40 → 4MS4W 14:09
PROVIDERS: ADMIT Hospitalist; ATTEND Hospitalist
DX: A08.4 Viral intestinal infection, unspecified (principal); N30.01 Acute cystitis with hematuria; I10 Essential (primary) hypertension; K50.00 Crohn's disease of small intestine without complications; E86.0 Dehydration; E87.6 Hypokalemia; G89.29 Other chronic pain; J30.2 Other seasonal allergic rhinitis; J44.9 Chronic obstructive pulmonary disease, unspecified; K21.9 Gastro-esophageal reflux disease without esophagitis; M19.91 Primary osteoarthritis, unspecified site; K44.9 Diaphragmatic hernia without obstruction or gangrene; F41.9 Anxiety disorder, unspecified; M79.7 Fibromyalgia; M81.0 Age-related osteoporosis without current pathological fracture; Z79.899 Other long term (current) drug therapy; Z93.2 Ileostomy status; Z87.891 Personal history of nicotine dependence; Z90.49 Acquired absence of other specified parts of digestive tract; Z90.710 Acquired absence of both cervix and uterus; Z88.2 Allergy status to sulfonamides; Z88.8 Allergy status to other drugs, medicaments and biological substances; Z88.6 Allergy status to analgesic agent; Z91.041 Radiographic dye allergy status
CPT/HCPCS: 36415; 74177; 80048; 80053; 81001; 83690; 83735; 84100; 85025; 87086; 87324; 94640; 96361; 96365; 96372; 96375; 96376; 99285

== ENCOUNTER → 2017-07-05 | Outpatient (CLI) | payer BC ==
[2017-07-05 08:25] LABS: CH 31.1; CHCM 32.5; HCT 41.5 % (34.0-46.0); MCHC 33.3 g/dL (31.0-37.0); MCV 96.1 fL (80.0-100.0); Mean Platelet Volume 7.2; RBC 4.32 m/uL (3.80-5.40); RDW 14.2 % (11.5-15.5); WBC 8.4 k/uL (3.8-10.6)
[2017-07-05 08:27] LABS: HGB 13.8 gm/dL (11.4-16.0)
[2017-07-05 08:42] LABS: Potassium 4.4 mmol/L (3.5-5.1); Total Bilirubin 0.5 mg/dL (0.2-1.3)
[2017-07-05 09:18] LABS: Erythrocyte Sedimentation Rate 56 mm/hr (0-20)
--- NOTE | 2017-07-05 12:38 | CT ---
EXAMINATION TYPE: CT abdomen pelvis wo con DATE OF EXAM: 07/05/2017 COMPARISON: Prior CT 06/24/2017 HISTORY: Unspecified abdominal pain, History of ulcerative colitis and Crohns disease CT DLP: 210.00 mGycm Automated exposure control for dose reduction was used. TECHNIQUE: Helical acquisition of images from the lung bases through the pelvis. FINDINGS: LUNG BASES: Stable compared to previous exam, extensive emphysematous changes are present AORTA: There are atheromatous changes. No significant interval change is evident, exam could be limi laura by lack of contrast LIVER/GB: Liver is enlarged. Patient is post cholecystectomy. PANCREAS: No significant abnormality is seen. SPLEEN: No significant abnormality is seen. ADRENALS: No significant abnormality is seen. KIDNEYS: There is been slight interval migration of the proximal right ureteral calculus which is now causing hydronephrosis on the right, calcification measures approximately 5 to 6 mm in greatest dime nsion. REPRODUCTIVE ORGANS: Not seen URINARY BLADDER: Probable cystocele again noted. BOWEL: No significant abnormality is seen. Ileostomy is stable in the right lower quadrant. Postop c hanges are noted, multiple surgical clips in the pelvis, status post colectomy FREE AIR: No Free Air is visible. ASCITES: None visible. PELVIC ADENOPATHY: None visualized. RETROPERITONEAL ADENOPATHY: No Retroperitoneal Adenopathy visible. OSSEOUS STRUCTURES: Stable IMPRESSION: INTERVAL MIGRATION OF PROXIMAL RIGHT URETERAL CALCULUS CAUSING HYDRONEPHROSIS. POSTOP CHANGES. NONCON TRAST EXAM.
== END | disposition home or self-care (01) ==
LOC: RADXRMAIN 06:54
PROVIDERS: ATTEND Family Medicine
DX: N13.2 Hydronephrosis with renal and ureteral calculous obstruction (principal); R10.9 Unspecified abdominal pain; Z98.890 Other specified postprocedural states
CPT/HCPCS: 36415; 74176; 80053; 85027; 85652

== ENCOUNTER → 2017-07-07 | Outpatient (CLI) | payer BC ==
[2017-07-07 17:12] LABS: Anion Gap 11 mmol/L; Blood Urea Nitrogen 14 mg/dL (7-17); Calcium 10.1 mg/dL (8.4-10.2); Carbon Dioxide 26 mmol/L (22-30); Chloride 101 mmol/L (98-107); Glucose 93 mg/dL (74-99); Non-African American GFR(MDRD) >60 (>60 ml/min/1.73 sqM); Potassium 4.2 mmol/L (3.5-5.1); Sodium 138 mmol/L (137-145)
== END | disposition home or self-care (01) ==
LOC: LABWHC1 16:31
PROVIDERS: ATTEND Internal Medicine Critical Care Medicine
DX: N20.0 Calculus of kidney (principal)
CPT/HCPCS: 36415; 80048

== ENCOUNTER → 2017-08-03 | Outpatient (CLI) | payer BC ==
--- NOTE | 2017-08-07 10:38 | MM ---
Reason for exam: screening (asymptomatic). Last mammogram was performed 1 year and 1 month ago. History: Patient is postmenopausal and is nulliparous. Benign stereotactic core biopsy of the right breast, January 18, 1999. Benign excisional biopsy of the left breast, December 17, 1997. Core biopsy of the right breast. Took hormonal contraceptives for 8 years beginning at age 21. Took estrogen for 2 years beginning at age 40. Physical Findings: A clinical breast exam by your physician is recommended on an annual basis and results should be correlated with mammographic findings. MG 3D Screening Mammo W/Cad Bilateral CC and MLO view(s) were taken. Prior study comparison: July 06, 2016, bilateral MG screening mammo w CAD. April 20, 2015, bilateral MG screening mammo w CAD. There are scattered fibroglandular densities. There is no discrete abnormality. No significant changes when compared with prior studies. ASSESSMENT: Negative, BI-RAD 1 RECOMMENDATION: Routine screening mammogram of both breasts in 1 year.
== END | disposition home or self-care (01) ==
LOC: RADMAMWWP 15:27
PROVIDERS: ATTEND Family Medicine
DX: Z12.31 Encounter for screening mammogram for malignant neoplasm of breast (principal)
CPT/HCPCS: 77063; G0202

== ENCOUNTER → 2017-08-22 | Outpatient (CLI) | payer BC ==
--- NOTE | 2017-08-22 09:35 | XR ---
EXAMINATION TYPE: XR KUB DATE OF EXAM: 08/22/2017 9:20 AM CLINICAL HISTORY: Right-sided kidney stones TECHNIQUE: Single supine KUB image of the abdomen is obtained. COMPARISON: CT abdomen and pelvis July 05, 2017. FINDINGS: There is stable 6 mm calculus right kidney at UPJ inferior L3 level. Gas is seen in nondistended stomach. Additional gas is seen in nondistended small bowel loops in the left lower quadrant and pelvis. There is right lower quadrant ostomy. Multiple cholecystectomy clips are redemonstrated. Multiple surgical clips in the upper pelvis are again seen from total colectomy. Visualized lung bases are clear. IMPRESSION: Stable 6 mm right UPJ calculus.
== END | disposition home or self-care (01) ==
LOC: RADXRMAIN 09:04
PROVIDERS: ATTEND Urology
DX: N20.1 Calculus of ureter (principal)
CPT/HCPCS: 74000

== ENCOUNTER 2017-09-23 03:26 | Emergency (ER) | payer BC ==
[2017-09-23] MEDS ORDERED: HYDROmorphone 1 MG/ML 1 ML SYRINGE IVP STA (03:49)
--- NOTE | 2017-09-23 03:53 | ED ---
Nausea/Vomiting/Diarrhea HPI - General Chief complaint: Abdominal Pain Stated complaint: Nausea/Vomiting Time Seen by Provider: 09/23/17 03:27 Source: patient, EMS Mode of arrival: EMS Limitations: no limitations - History of Present Illness Initial comments: This patient is a 57-year-old woman who complains of having nausea, vomiting, diarrhea, and diffuse, cramping abdominal pains. Symptoms have been coming on over the past 3-4 days, getting worse today. The patient states that she is usually maintained on a tincture of opium to slow her bowel transit, and she has been out of this for. About 4 days. She also is having hot and cold flashes. She has diffuse body aches. MD complaint: nausea, vomiting, diarrhea, abdominal pain -: days(s) Description of Vomiting: watery, other (Dry heaves) Description of Diarrhea: water Associated Abdominal Pain: Yes Location: diffuse Severity: moderate Quality: cramping Consistency: constant Improves with: none Worsens with: none Associated Symptoms: nausea/vomiting - Related Data Home Medications Medication Instructions Recorded Confirmed Aclidinium [place] [Tudorza 400 mcg INHALATION RT-BID 06/21/14 09/23/17 Pressair] Adalimumab [Humira Pen] 40 mg SQ FR 06/21/14 09/23/17 Calcium Carb-Vit D 500Mg-200Un 1 tab PO BID 04/27/16 09/23/17 [Oscal 500+D] Fluticasone/Vilanterol [Breo 1 puff INHALATION RT-HS 04/27/16 09/23/17 Ellipta 100-25 Mcg Inhaler] Multivitamins, Thera [Multivitamin 1 tab PO DAILY 04/27/16 09/23/17 (formulary)] Opium Tincture 2 ml PO QID 04/27/16 09/23/17 Mercaptopurine [Purinethol] 50 mg PO BID 02/22/17 09/23/17 Albuterol Sulfate [Proair Hfa] 2 puff INHALATION RT-Q4H PRN 05/09/17 09/23/17 Cholecalciferol [Vitamin D3] 3,000 unit PO DAILY 05/09/17 09/23/17 Cyanocobalamin [Vitamin B-12 1,000 mcg SQ QMONTH 05/09/17 09/23/17 Injection] Denosumab [Prolia] 60 mg SQ Q180D 05/09/17 09/23/17 Dicyclomine [Bentyl] 10 mg PO QID PRN 05/09/17 09/23/17 busPIRone HCl [Buspar] 10 mg PO BID 05/09/17 09/23/17 Atenolol 25 mg PO DAILY 05/20/17 09/23/17 Latanoprost Ophth [Xalatan 0.005%] 1 drop BOTH EYES HS 05/21/17 09/23/17 Albuterol Nebulized [Ventolin 2.5 mg INHALATION RT-QID PRN 06/24/17 09/23/17 Nebulized] HYDROcodone/APAP 10-325MG [F[place] 1 tab PO Q4HR PRN 06/24/17 09/23/17 10-325] Nicotine Polacrilex [Nicotine Gum] 4 mg BUCCAL TID PRN 06/24/17 09/23/17 Previous Rx's Medication Instructions Recorded Melatonin 3 mg PO HS tab 05/11/17 Nicotine 21Mg/24Hr Patch [Habitrol] 1 patch TRANSDERM DAILY patch 05/11/17 Cefuroxime [Ceftin] 250 mg PO BID #14 tablet 06/26/17 Hydrocodone/Acetaminophen [Ferr[place] 1 each PO Q6HR PRN #6 tab 09/23/17 5-325] Allergies Allergy/AdvReac Type Severity Reaction Status Date / Time Iodinated Contrast- Oral and Allergy Anaphylaxis Verified 09/23/17 03:34 IV Dye Sulfa (Sulfonamide Allergy Rash/Hives Verified 09/23/17 03:34 Antibiotics) aspirin AdvReac Internal Verified 09/23/17 03:34 Bleeding timolol [Timolol] AdvReac Nausea & Verified 09/23/17 03:34 Vomiting Review of Systems ROS Statement: Those systems with pertinent positive or pertinent negative responses have been documented in the HPI. ROS Other: All systems not noted in ROS Statement are negative. Constitutional: Reports: as per HPI, chills. Denies: fever Respiratory: Denies: cough, dyspnea Cardiovascular: Denies: chest pain, palpitations, edema, syncope Gastrointestinal: Reports: abdominal pain, nausea, vomiting, diarrhea. Denies: hematemesis, melena, hematochezia Genitourinary: Denies: dysuria, hematuria Musculoskeletal: Reports: myalgia. Denies: back pain Skin: Denies: rash, lesions Neurological: Denies: headache, weakness, numbness Past Medical History Past Medical History: COPD, Fibromyalgia, GERD/Reflux, GI Bleed, Osteoarthritis (OA), Pneumonia, Syncope Additional Past Medical History / Comment(s): COPD, severe with an FEV1 of 36% of predicted, crohn's, bowel obstructions, lower GI bleeds, hiatal hernia, osteoporosis, arthritis multiple joints, seasonal allergies, right-sided pneumothorax x2 History of Any Multi-Drug Resistant Organisms: None Reported Past Surgical History: Breast Surgery, Cholecystectomy, Hernia Repair, Hysterectomy, Orthopedic Surgery Additional Past Surgical History / Comment(s): Multiple bowel surgeries including total colectomy/ileostomy, ileostomy moved/repaired, R tube and R ovary removed due toectopic , total hysterectomy, leep procedure, laparoscopy for endometriosis, L breast lumpectomy-benign, r breast core bx- benign, EGD/colonoscopies. Right-sided Thora-vent placement May 09 and May 19. Eye surgery bilateral Past Anesthesia/Blood Transfusion Reactions: No Reported Reaction Past Psychological History: No Psychological Hx Reported Smoking Status: Former smoker Past Alcohol Use History: None Reported Past Drug Use History: None Reported - Past Family History Mother Family Medical History: Cancer, COPD, Hypertension Additional Family Medical History / Comment(s): Skin cancer and osteoporosis. Father Family Medical History: Cancer, CVA/TIA, Dementia Additional Family Medical History / Comment(s): Father is 90yrs old. General Exam Limitations: no limitations General appearance: alert, in no apparent distress Head exam: Present: atraumatic, normocephalic Eye exam: Present: normal appearance. Absent: scleral icterus, conjunctival injection ENT exam: Present: mucous membranes dry Neck exam: Present: normal inspection, full ROM. Absent: tenderness, meningismus Respiratory exam: Present: normal lung sounds bilaterally. Absent: respiratory distress, wheezes, rales, rhonchi, stridor Cardiovascular Exam: Present: regular rate, normal rhythm, normal heart sounds. Absent: systolic murmur, diastolic murmur, rubs, gallop GI/Abdominal exam: Present: soft, hyperactive bowel sounds, other (Patient's ileostomy bag has moderate amount of watery output). Absent: distended, tenderness, guarding, rebound, rigid, mass Extremities exam: Present: normal inspection, normal capillary refill. Absent: pedal edema, calf tenderness Back exam: Present: normal inspection Neurological exam: Present: alert Skin exam: Present: warm, dry, intact, normal color, other (Piloerection). Absent: rash Course Vital Signs 09/23/17 09/23/17 09/23/17 03:27 06:00 07:00 Temperature 98.2 F 98.2 F Pulse Rate 86 92 91 Respiratory 18 18 20 Rate Blood Pressure 125/82 108/68 84/76 O2 Sat by Pulse 98 98 95 Oximetry Medical Decision Making - Lab Data Result diagrams: 09/23/17 03:38 09/23/17 03:38 Lab Results 09/23/17 09/23/17 09/23/17 Range/Units 03:38 03:38 05:15 WBC 10.9 H (3.8-10.6) k/uL RBC 5.39 (3.80-5.40) m/uL Hgb 16.0 (11.4-16.0) gm/dL Hct 48.9 H (34.0-46.0) % MCV 90.7 (80.0-100.0) fL MCH 29.7 (25.0-35.0) pg MCHC 32.8 (31.0-37.0) g/dL RDW 15.6 H (11.5-15.5) % Plt Count 351 (150-450) k/uL Neutrophils % 69 % Lymphocytes % 23 % Monocytes % 6 % Eosinophils % 2 % Basophils % 0 % Neutrophils # 7.4 (1.3-7.7) k/uL Lymphocytes # 2.5 (1.0-4.8) k/uL Monocytes # 0.6 (0-1.0) k/uL Eosinophils # 0.2 (0-0.7) k/uL Basophils # 0.0 (0-0.2) k/uL Sodium 143 (137-145) mmol/L Potassium 4.2 (3.5-5.1) mmol/L Chloride 108 H (98-107) mmol/L Carbon Dioxide 23 (22-30) mmol/L Anion Gap 12 mmol/L BUN 15 (7-17) mg/dL Creatinine 0.83 (0.52-1.04) mg/dL Est GFR (MDRD) Af Amer >60 (>60 ml/min/1.73 sqM) Est GFR (MDRD) Non-Af >60 (>60 ml/min/1.73 sqM) Glucose 118 H (74-99) mg/dL Calcium 10.5 H (8.4-10.2) mg/dL Total Bilirubin 0.5 (0.2-1.3) mg/dL AST 26 (14-36) U/L ALT 39 (9-52) U/L Alkaline Phosphatase 68 (38-126) U/L Total Protein 8.4 H (6.3-8.2) g/dL Albumin 5.0 (3.5-5.0) g/dL Amylase 35 (30-110) U/L Lipase 161 (23-300) U/L Urine Color Yellow Urine Appearance Cloudy H (Clear) Urine pH 5.5 (5.0-8.0) Ur Specific [place] 1.025 (1.001-1.035) Urine Protein 2+ H (Negative) Urine Glucose (UA) Negative (Negative) Urine Ketones Trace H (Negative) Urine Blood Moderate H (Negative) Urine Nitrite Negative (Negative) Urine Bilirubin Negative (Negative) Urine Urobilinogen <2.0 (<2.0) mg/dL Ur Leukocyte Esterase Trace H (Negative) Urine RBC 4 (0-5) /hpf Urine WBC 10 H (0-5) /hpf Ur Squamous Epith Cells 1 (0-4) /hpf Urine Bacteria Rare H (None) /hpf Hyaline Casts 19 H (0-2) /lpf Urine Mucus Many H (None) /hpf Disposition Clinical Impression: Opioid withdrawal Disposition: HOME SELF-CARE Condition: Fair Instructions: Opioid Withdrawal (ED) Prescriptions: Hydrocodone/Acetaminophen [Ferron 5-325] 1 each PO Q6HR PRN #6 tab PRN Reason: Pain Referrals: Tacho Scott MD [Primary Care Provider] - 1-2 days
[2017-09-23 03:55] LABS: Basophils % (A) 0 %; CH 30.2; CHCM 33.5; Eosinophils # (A) 0.2 k/uL (0-0.7); Eosinophils % (A) 2 %; HCT 48.9 % (34.0-46.0); HDW 2.47; Luc # (Auto) 0.14; Luc % (Auto) 1; Lymphocytes # (A) 2.5 k/uL (1.0-4.8); Lymphocytes % (A) 23 %; MCH 29.7 pg (25.0-35.0); MCHC 32.8 g/dL (31.0-37.0); MCV 90.7 fL (80.0-100.0); Mean Platelet Volume 7.6; Monocytes # (A) 0.6 k/uL (0-1.0); Monocytes % (A) 6 %; Neutrophils # (A) 7.4 k/uL (1.3-7.7); Neutrophils % (A) 69 %; RBC 5.39 m/uL (3.80-5.40); RDW 15.6 % (11.5-15.5); WBC 10.9 k/uL (3.8-10.6); WBC (Perox) 10.93
[2017-09-23] MEDS ORDERED: HYDROmorphone 0.5 MG/0.5 ML SYRINGE IVP STA ×2 (04:03→04:06)
[2017-09-23 04:05] LABS: ALT 39 U/L (9-52); AST 26 U/L (14-36); Alkaline Phosphatase 68 U/L (38-126); Amylase 35 U/L (30-110); Anion Gap 12 mmol/L; Blood Urea Nitrogen 15 mg/dL (7-17); Calcium 10.5 mg/dL (8.4-10.2); Carbon Dioxide 23 mmol/L (22-30); Chloride 108 mmol/L (98-107); Glucose 118 mg/dL (74-99); Non-African American GFR(MDRD) >60 (>60 ml/min/1.73 sqM); Potassium 4.2 mmol/L (3.5-5.1); Sodium 143 mmol/L (137-145); Total Bilirubin 0.5 mg/dL (0.2-1.3); Total Protein 8.4 g/dL (6.3-8.2)
[2017-09-23] MEDS ORDERED: HYDROmorphone 2 MG/ML 1 ML SYRINGE IVP STA (05:49)
[2017-09-23] MEDS ORDERED: METHADONE 10 MG TAB PO STA (05:49)
[2017-09-23 06:07] LABS: Appearance,Urine Cloudy (Clear); Bacteria,Urine Rare /hpf; Bilirubin,Urine Negative (Negative); Glucose,Urine (UA) Negative (Negative); Ketones,Urine Trace (Negative); Leukocyte Esterase,Urine Trace (Negative); Mucus,Urine Many /hpf; Nitrite,Urine Negative (Negative); PH, Urine 5.5 (5.0-8.0); Particle Count 14216; Protein,Urine 2+ (Negative); RBC,Urine 4 /hpf (0-5); Specific Gravity,Urine 1.025 (1.001-1.035); Squamous Epithelial Cell,Urine 1 /hpf (0-4); UA Billing (MACRO vs. MICRO) MICRO; Urobilinogen,Urine <2.0 mg/dL (<2.0); WBC,Urine 10 /hpf (0-5)
[2017-09-23 08:19] VITALS: BP 92/69; PULSE 85; RESP 18; TEMP 97.7
== END 2017-09-23 08:20 | disposition home or self-care (01) ==
LOC: EC 03:26
DX: F11.23 Opioid dependence with withdrawal (principal); R10.84 Generalized abdominal pain; R11.2 Nausea with vomiting, unspecified; R19.7 Diarrhea, unspecified; J44.9 Chronic obstructive pulmonary disease, unspecified; M79.7 Fibromyalgia; K21.9 Gastro-esophageal reflux disease without esophagitis; M19.90 Unspecified osteoarthritis, unspecified site; Z87.891 Personal history of nicotine dependence; Z79.51 Long term (current) use of inhaled steroids; Z79.899 Other long term (current) drug therapy; Z91.041 Radiographic dye allergy status; Z88.2 Allergy status to sulfonamides; Z88.6 Allergy status to analgesic agent; Z88.8 Allergy status to other drugs, medicaments and biological substances; Z90.49 Acquired absence of other specified parts of digestive tract; Z90.710 Acquired absence of both cervix and uterus
CPT/HCPCS: 36415; 80053; 82150; 83690; 85025; 81001; 99284; 96374; 96376; J1170 ×2; S0109

== ENCOUNTER 2017-12-08 17:28 | Inpatient (IN) | payer BC ==
[2017-12-08] MEDS ORDERED: ONDANSETRON 4 MG/2 ML VIAL IVP STA ×2 (17:44→18:25)
[2017-12-08] MEDS ORDERED: SODIUM CHLORIDE 0.9% 1,000 ML IV STA ×2 (17:44→19:48)
[2017-12-08] MEDS ORDERED: HYDROmorphone 2 MG/ML 1 ML SYRINGE IVP STA ×2 (17:44→19:28)
[2017-12-08 17:59] LABS: Basophils % (A) 0 %; Eosinophils # (A) 0.2 k/uL (0-0.7); Eosinophils % (A) 1 %; HCT 51.4 % (34.0-46.0); HGB 15.7 gm/dL (11.4-16.0); Lymphocytes # (A) 1.5 k/uL (1.0-4.8); Lymphocytes % (A) 8 %; MCHC 30.4 g/dL (31.0-37.0); MCV 95.4 fL (80.0-100.0); Mean Platelet Volume 6.8; Monocytes # (A) 1.3 k/uL (0-1.0); Monocytes % (A) 7 %; Neutrophils % (A) 83 %; Platelet Count 373 k/uL (150-450); RBC 5.39 m/uL (3.80-5.40); RDW 13.2 % (11.5-15.5); WBC 18.1 k/uL (3.8-10.6)
--- NOTE | 2017-12-08 18:02 | ED ---
General Adult HPI - General Chief complaint: Nausea/Vomiting/Diarrhea Stated complaint: N/V/D Time Seen by Provider: 12/08/17 17:31 Source: patient Mode of arrival: EMS Limitations: no limitations - Related Data Home Medications Medication Instructions Recorded Confirmed Aclidinium [place] [Tudorza 400 mcg INHALATION RT-BID 06/21/14 12/08/17 Pressair] Adalimumab [Humira Pen] 40 mg SQ FR 06/21/14 12/08/17 Calcium Carb-Vit D 500Mg-200Un 1 tab PO BID 04/27/16 12/08/17 [Oscal 500+D] Fluticasone/Vilanterol [Breo 1 puff INHALATION RT-HS 04/27/16 12/08/17 Ellipta 100-25 Mcg Inhaler] Multivitamins, Thera [Multivitamin 1 tab PO DAILY 04/27/16 12/08/17 (formulary)] Opium Tincture 2 ml PO QID 04/27/16 12/08/17 Mercaptopurine [Purinethol] 50 mg PO BID 02/22/17 12/08/17 Albuterol Sulfate [Proair Hfa] 2 puff INHALATION RT-Q4H PRN 05/09/17 12/08/17 Cholecalciferol [Vitamin D3] 3,000 unit PO DAILY 05/09/17 12/08/17 busPIRone HCl [Buspar] 10 mg PO BID 05/09/17 12/08/17 Atenolol 25 mg PO DAILY 05/20/17 12/08/17 Latanoprost Ophth [Xalatan 0.005%] 1 drop BOTH EYES 05/21/17 12/08/17 Albuterol Nebulized [Ventolin 2.5 mg INHALATION RT-QID PRN 06/24/17 12/08/17 Nebulized] HYDROcodone/APAP 10-325MG [[place] 1 tab PO Q4HR PRN 06/24/17 12/08/17 10-325] Nicotine Polacrilex [Nicotine Gum] 4 mg BUCCAL TID PRN 06/24/17 12/08/17 Gabapentin [Neurontin] 300 mg PO TID 12/08/17 12/08/17 Magnesium 200 mg PO DAILY 12/08/17 12/08/17 Vitamin E 100 unit PO DAILY 12/08/17 12/08/17 Previous Rx's Medication Instructions Recorded Melatonin 3 mg PO HS tab 05/11/17 Allergies Allergy/AdvReac Type Severity Reaction Status Date / Time Iodinated Contrast- Oral and Allergy Anaphylaxis Verified 12/08/17 17:59 IV Dye Sulfa (Sulfonamide Allergy Rash/Hives Verified 12/08/17 17:59 Antibiotics) aspirin AdvReac Internal Verified 12/08/17 17:59 Bleeding timolol [Timolol] AdvReac Nausea & Verified 12/08/17 17:59 Vomiting Review of Systems ROS Statement: Those systems with pertinent positive or pertinent negative responses have been documented in the HPI. ROS Other: All systems not noted in ROS Statement are negative. Past Medical History Past Medical History: COPD, Fibromyalgia, GERD/Reflux, GI Bleed, Osteoarthritis (OA), Pneumonia, Syncope Additional Past Medical History / Comment(s): COPD, severe with an FEV1 of 36% of predicted, crohn's, bowel obstructions, lower GI bleeds, hiatal hernia, osteoporosis, arthritis multiple joints, seasonal allergies, right-sided pneumothorax x2 History of Any Multi-Drug Resistant Organisms: None Reported Past Surgical History: Breast Surgery, Cholecystectomy, Hernia Repair, Hysterectomy, Orthopedic Surgery Additional Past Surgical History / Comment(s): Multiple bowel surgeries including total colectomy/ileostomy, ileostomy moved/repaired, R tube and R ovary removed due toectopic , total hysterectomy, leep procedure, laparoscopy for endometriosis, L breast lumpectomy-benign, r breast core bx- benign, EGD/colonoscopies. Right-sided Thora-vent placement May 09 and May 19. Eye surgery bilateral Past Anesthesia/Blood Transfusion Reactions: No Reported Reaction Past Psychological History: No Psychological Hx Reported Smoking Status: Former smoker Past Alcohol Use History: None Reported Past Drug Use History: None Reported - Past Family History Mother Family Medical History: Cancer, COPD, Hypertension Additional Family Medical History / Comment(s): Skin cancer and osteoporosis. Father Family Medical History: Cancer, CVA/TIA, Dementia Additional Family Medical History / Comment(s): Father is 90yrs old. General Exam Limitations: no limitations Course Vital Signs 12/08/17 17:31 Temperature 99.4 F Pulse Rate 89 Respiratory 18 Rate Blood Pressure 134/69 O2 Sat by Pulse 95 Oximetry Medical Decision Making - Medical Decision Making Patient's labs were reviewed a 2000 white count. Lactic acid 2.3. Patient's CT shows possible ileus. Patient still experiencing abdominal pain. - Lab Data Result diagrams: 12/08/17 17:46 12/08/17 17:46 Lab Results 12/08/17 12/08/17 12/08/17 Range/Units 17:46 17:46 17:46 WBC 18.1 H (3.8-10.6) k/uL RBC 5.39 (3.80-5.40) m/uL Hgb 15.7 (11.4-16.0) gm/dL Hct 51.4 H (34.0-46.0) % MCV 95.4 (80.0-100.0) fL MCH 29.0 (25.0-35.0) pg MCHC 30.4 L (31.0-37.0) g/dL RDW 13.2 (11.5-15.5) % Plt Count 373 (150-450) k/uL Neutrophils % 83 % Lymphocytes % 8 % Monocytes % 7 % Eosinophils % 1 % Basophils % 0 % Neutrophils # 15.0 H (1.3-7.7) k/uL Lymphocytes # 1.5 (1.0-4.8) k/uL Monocytes # 1.3 H (0-1.0) k/uL Eosinophils # 0.2 (0-0.7) k/uL Basophils # 0.0 (0-0.2) k/uL Sodium 145 (137-145) mmol/L Potassium 4.3 (3.5-5.1) mmol/L Chloride 97 L (98-107) mmol/L Carbon Dioxide 30 (22-30) mmol/L Anion Gap 18 mmol/L BUN 30 H (7-17) mg/dL Creatinine 0.80 (0.52-1.04) mg/dL Est GFR (MDRD) Af Amer >60 (>60 ml/min/1.73 sqM) Est GFR (MDRD) Non-Af >60 (>60 ml/min/1.73 sqM) Glucose 118 H (74-99) mg/dL Plasma Lactic Acid Josep 2.3 H* (0.7-2.0) mmol/L Calcium 11.1 H (8.4-10.2) mg/dL Total Bilirubin 0.8 (0.2-1.3) mg/dL AST 39 H (14-36) U/L ALT 76 H (9-52) U/L Alkaline Phosphatase 65 (38-126) U/L Total Protein 7.4 (6.3-8.2) g/dL Albumin 4.6 (3.5-5.0) g/dL Amylase 42 (30-110) U/L Lipase 123 (23-300) U/L Urine Color Urine Appearance (Clear) Urine pH (5.0-8.0) Ur Specific [place] (1.001-1.035) Urine Protein (Negative) Urine Glucose (UA) (Negative) Urine Ketones (Negative) Urine Blood (Negative) Urine Nitrite (Negative) Urine Bilirubin (Negative) Urine Urobilinogen (<2.0) mg/dL Ur Leukocyte Esterase (Negative) Urine RBC (0-5) /hpf Ur Squamous Epith Cells (0-4) /hpf Amorphous Sediment (None) /hpf Urine Mucus (None) /hpf Influenza Type A RNA (Not Detectd) Influenza Type B (PCR) (Not Detectd) 12/08/17 12/08/17 Range/Units 18:05 18:24 WBC (3.8-10.6) k/uL RBC (3.80-5.40) m/uL Hgb (11.4-16.0) gm/dL Hct (34.0-46.0) % MCV (80.0-100.0) fL MCH (25.0-35.0) pg MCHC (31.0-37.0) g/dL RDW (11.5-15.5) % Plt Count (150-450) k/uL Neutrophils % % Lymphocytes % % Monocytes % % Eosinophils % % Basophils % % Neutrophils # (1.3-7.7) k/uL Lymphocytes # (1.0-4.8) k/uL Monocytes # (0-1.0) k/uL Eosinophils # (0-0.7) k/uL Basophils # (0-0.2) k/uL Sodium (137-145) mmol/L Potassium (3.5-5.1) mmol/L Chloride (98-107) mmol/L Carbon Dioxide (22-30) mmol/L Anion Gap mmol/L BUN (7-17) mg/dL Creatinine (0.52-1.04) mg/dL Est GFR (MDRD) Af Amer (>60 ml/min/1.73 sqM) Est GFR (MDRD) Non-Af (>60 ml/min/1.73 sqM) Glucose (74-99) mg/dL Plasma Lactic Acid [place] (0.7-2.0) mmol/L Calcium (8.4-10.2) mg/dL Total Bilirubin (0.2-1.3) mg/dL AST (14-36) U/L ALT (9-52) U/L Alkaline Phosphatase (38-126) U/L Total Protein (6.3-8.2) g/dL Albumin (3.5-5.0) g/dL Amylase (30-110) U/L Lipase (23-300) U/L Urine Color Yellow Urine Appearance Turbid H (Clear) Urine pH 7.0 (5.0-8.0) Ur Specific [place] 1.020 (1.001-1.035) Urine Protein 2+ H (Negative) Urine Glucose (UA) Negative (Negative) Urine Ketones Negative (Negative) Urine Blood Moderate H (Negative) Urine Nitrite Negative (Negative) Urine Bilirubin Negative (Negative) Urine Urobilinogen <2.0 (<2.0) mg/dL Ur Leukocyte Esterase Negative (Negative) Urine RBC 5 (0-5) /hpf Ur Squamous Epith Cells 1 (0-4) /hpf Amorphous Sediment Moderate H (None) /hpf Urine Mucus Few H (None) /hpf Influenza Type A RNA Not Detected (Not Detectd) Influenza Type B (PCR) Not Detected (Not Detectd) Disposition Clinical Impression: Ileus, Leukocytosis, Dehydration Disposition: ADMITTED IP TO THIS HOSP Referrals: Heber James MD [Primary Care Provider] - 1-2 days Time of Disposition: 19:44
[2017-12-08 18:07] LABS: ALT 76 U/L (9-52); AST 39 U/L (14-36); Albumin 4.6 g/dL (3.5-5.0); Alkaline Phosphatase 65 U/L (38-126); Amylase 42 U/L (30-110); Anion Gap 18 mmol/L; Blood Urea Nitrogen 30 mg/dL (7-17); Calcium 11.1 mg/dL (8.4-10.2); Carbon Dioxide 30 mmol/L (22-30); Chloride 97 mmol/L (98-107); Glucose 118 mg/dL (74-99); Lipase 123 U/L (23-300); Potassium 4.3 mmol/L (3.5-5.1); Sodium 145 mmol/L (137-145); Total Bilirubin 0.8 mg/dL (0.2-1.3); Total Protein 7.4 g/dL (6.3-8.2)
[2017-12-08 18:22] LABS: Amorphous Sediment,Urine Moderate /hpf; Appearance,Urine Turbid (Clear); Bilirubin,Urine Negative (Negative); Blood,Urine Moderate (Negative); Color,Urine Yellow; Glucose,Urine (UA) Negative (Negative); Ketones,Urine Negative (Negative); Leukocyte Esterase,Urine Negative (Negative); Mucus,Urine Few /hpf; Nitrite,Urine Negative (Negative); Protein,Urine 2+ (Negative); RBC,Urine 5 /hpf (0-5); Squamous Epithelial Cell,Urine 1 /hpf (0-4); Urobilinogen,Urine <2.0 mg/dL (<2.0)
--- NOTE | 2017-12-08 19:08 | CT ---
EXAMINATION TYPE: CT abdomen pelvis wo con DATE OF EXAM: 12/08/2017 COMPARISON: 07/05/2017 INDICATION: Nausea, vomiting and diarrhea. DLP: 209.2 mGycm, Automated exposure control for dose reduction was used. CONTRAST: None Study performed without Oral Contrast TECHNIQUE: Axial images were obtained from above the diaphragm to the pubic rami in the axial plane a t 5 mm thick sections. Reconstructed images are reviewed on the computer in the coronal plane. FINDINGS: Limited CT sections are obtained the lung bases. The lung bases are clear. There is extensive emphy sematous change present at the lung bases. CT ABDOMEN: Liver: Normal Spleen: Normal Pancreas: Normal Adrenal glands: The adrenal glands are normal. Gallbladder: Surgical clips are present from prior cholecystectomy. Ostomy site is in the anterior right mid quadrant. Kidneys: No masses are evident. No hydronephrosis is present. No cysts are present. There is a 0.3 cm calcification in the mid right kidney without evidence of obstruction. Aorta: Vascular calcification is within the aorta. Inferior vena cava: Normal. CT PELVIS: There are dilated loops of bowel with air-fluid levels within the abdomen. There are some scattered s mall bowel loops within the pelvis which appear to have a normal caliber. No direct sonographic trans ition is identified suggest obstruction. Consider ileus. Colon appears resected. The ostomy is in the right midabdomen at the level of the pelvic inlet level. Presacral surgical clips are present Appendix: Not identified Urinary bladder: Decompressed with limited evaluation Genitourinary structures: Uterus and ovaries are not identified Osseous structures: No suspicious lytic or sclerotic lesions. IMPRESSIONS: 1. Dilated fluid-filled small bowel loops. No zone of transition is identified to suggest an acute f ocal obstruction. Consider ileus within the differential. Studies without oral contrast causing some limitation.
[2017-12-08] MEDS ORDERED: NALOXONE 0.4 MG/ML 1 ML VIAL IV PRN (19:55)
[2017-12-08] MEDS: GABAPENTIN 300 MG CAP PO SCH (21:28)
[2017-12-08] MEDS: busPIRone HCl 10 MG TAB PO SCH (21:28)
[2017-12-08] MEDS: MELATONIN 3 MG TABLET PO SCH (21:28)
[2017-12-08] MEDS ORDERED: ALBUTEROL NEBULIZED 2.5 MG/3 ML INHALATION PRN ×2 (21:39)
[2017-12-08] MEDS ORDERED: ADALIMUMAB 80 MG/1.6 ML KIT SQ SCH (21:45)
[2017-12-08] MEDS: ONDANSETRON 4 MG/2 ML VIAL IVP PRN (23:04)
[2017-12-08] MEDS: HYDROmorphone 0.5 MG/0.5 ML SYRINGE IVP PRN (23:04)
[2017-12-09] MEDS: OPIUM TINCTURE PO SCH ×5 (02:48→21:00)
[2017-12-09] MEDS: HYDROmorphone 0.5 MG/0.5 ML SYRINGE IVP PRN ×6 (02:49→20:58)
[2017-12-09 07:44] LABS: ALT 89 U/L (9-52); AST 39 U/L (14-36); Albumin 3.3 g/dL (3.5-5.0); Alkaline Phosphatase 46 U/L (38-126); Anion Gap 9 mmol/L; Blood Urea Nitrogen 18 mg/dL (7-17); Calcium 8.4 mg/dL (8.4-10.2); Carbon Dioxide 25 mmol/L (22-30); Chloride 107 mmol/L (98-107); Glucose 107 mg/dL (74-99); Potassium 4.3 mmol/L (3.5-5.1); Sodium 141 mmol/L (137-145); Total Bilirubin 0.7 mg/dL (0.2-1.3); Total Protein 5.7 g/dL (6.3-8.2)
[2017-12-09 07:45] LABS: Basophils % (A) 0 %; Eosinophils % (A) 0 %; HCT 41.7 % (34.0-46.0); Lymphocytes # (A) 1.1 k/uL (1.0-4.8); Lymphocytes % (A) 10 %; MCHC 31.3 g/dL (31.0-37.0); MCV 95.9 fL (80.0-100.0); Mean Platelet Volume 6.3; Monocytes # (A) 0.6 k/uL (0-1.0); Monocytes % (A) 6 %; Neutrophils # (A) 9.4 k/uL (1.3-7.7); Neutrophils % (A) 83 %; Platelet Count 274 k/uL (150-450); RBC 4.35 m/uL (3.80-5.40); RDW 13.1 % (11.5-15.5); WBC 11.3 k/uL (3.8-10.6)
[2017-12-09] MEDS: ONDANSETRON 4 MG/2 ML VIAL IVP PRN ×2 (07:54→18:37)
[2017-12-09] MEDS: busPIRone HCl 10 MG TAB PO SCH ×2 (07:55→20:56)
[2017-12-09] MEDS: ATENOLOL 25 MG TAB PO SCH (07:55)
[2017-12-09] MEDS: CHOLECALCIFEROL 1,000 UNIT TAB PO SCH (07:56)
[2017-12-09] MEDS: CALCIUM CARB-VIT D 500MG-200UN 1 EACH TAB PO SCH ×2 (07:56→20:56)
[2017-12-09] MEDS: MAGNESIUM OXIDE 400 MG TAB PO SCH (07:57)
[2017-12-09] MEDS: MERCAPTOPURINE 50 MG TAB PO SCH ×2 (07:57→20:56)
[2017-12-09] MEDS: GABAPENTIN 300 MG CAP PO SCH ×3 (07:57→21:00)
[2017-12-09] MEDS: VITAMIN E (DL,TOCOPHERYL ACET) 400 UNIT CAP PO SCH (07:58)
[2017-12-09] MEDS: HYDROcodone/APAP 10-325MG 1 EACH TAB PO PRN ×3 (08:07→16:24)
[2017-12-09] MEDS: IPRATROPIUM 0.5 MG/2.5 ML NEBU INHALATION SCH ×4 (08:44→20:49)
[2017-12-09] MEDS: SYMBICORT 80-4.5 MCG INHALER INHALATION SCH ×2 (08:45→20:49)
--- NOTE | 2017-12-09 09:06 | XR ---
EXAMINATION TYPE: XR chest 1V DATE OF EXAM: 12/09/2017 HISTORY: copd. REFERENCE: Previous study dated 05/23/2017. FINDINGS: The lungs are overinflated. The heart is not enlarged. There is chronic scarring in the lef t upper lobe. The lungs are otherwise clear. Pleural spaces are clear. IMPRESSION: 1. COPD. 2. LEFT UPPER LOBE PARENCHYMAL SCARRING.
--- NOTE | 2017-12-09 09:42 | P.GSCN ---
History of Present Illness Consult date: 12/09/17 Reason for Consult: Partial small bowel obstruction History of present illness: This is a 57-year-old female who's had multiple abdominal surgeries. Patient has had previous bowel resections and subtotal colectomy related to inflammatory bowel disease. She's had multiple ileostomy revisions. Patient was admitted to the hospital nausea vomiting. Patient states her nausea is improved. She is currently on a clear liquid diet. Past Medical History Past Medical History: COPD, Fibromyalgia, GERD/Reflux, GI Bleed, Osteoarthritis (OA), Pneumonia, Syncope Additional Past Medical History / Comment(s): COPD, severe with an FEV1 of 36% of predicted, crohn's, bowel obstructions, lower GI bleeds, hiatal hernia, osteoporosis, arthritis multiple joints, seasonal allergies, right-sided pneumothorax x2 History of Any Multi-Drug Resistant Organisms: None Reported Past Surgical History: Breast Surgery, Cholecystectomy, Hernia Repair, Hysterectomy, Orthopedic Surgery Additional Past Surgical History / Comment(s): Multiple bowel surgeries including total colectomy/ileostomy, ileostomy moved/repaired, R tube and R ovary removed due toectopic , total hysterectomy, leep procedure, laparoscopy for endometriosis, L breast lumpectomy-benign, r breast core bx- benign, EGD/colonoscopies. Right-sided Thora-vent placement May 09 and May 19. Eye surgery bilateral Past Anesthesia/Blood Transfusion Reactions: No Reported Reaction Past Psychological History: No Psychological Hx Reported Additional Psychological History / Comment(s): Pt currently is staying with her 90 yr old father who has dementia. Her spouse is staying at their home to care for the dogs. 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 She is independent. Smoking Status: Former smoker Past Alcohol Use History: None Reported Additional Past Alcohol Use History / Comment(s): smoker since age 17. pt states she has not smoked since last admission early this month, has been using nicotine patch at home Past Drug Use History: None Reported - Past Family History Mother Family Medical History: Cancer, COPD, Hypertension Additional Family Medical History / Comment(s): Skin cancer and osteoporosis. Father Family Medical History: Cancer, CVA/TIA, Dementia Additional Family Medical History / Comment(s): Father is 90yrs old. Medications and Allergies Home Medications Medication Instructions Recorded Confirmed Type Aclidinium [place] [Tudorza 400 mcg INHALATION RT-BID 06/21/14 12/08/17 History Pressair] Adalimumab [Humira Pen] 40 mg SQ FR 06/21/14 12/08/17 History Calcium Carb-Vit D 500Mg-200Un 1 tab PO BID 04/27/16 12/08/17 History [Oscal 500+D] Fluticasone/Vilanterol [Breo 1 puff INHALATION RT-HS 04/27/16 12/08/17 History Ellipta 100-25 Mcg Inhaler] Multivitamins, Thera [Multivitamin 1 tab PO DAILY 04/27/16 12/08/17 History (formulary)] Opium Tincture 2 ml PO QID 04/27/16 12/08/17 History Mercaptopurine [Purinethol] 50 mg PO BID 02/22/17 12/08/17 History Albuterol Sulfate [Proair Hfa] 2 puff INHALATION RT-Q4H PRN 05/09/17 12/08/17 History Cholecalciferol [Vitamin D3] 3,000 unit PO DAILY 05/09/17 12/08/17 History busPIRone HCl [Buspar] 10 mg PO BID 05/09/17 12/08/17 History Melatonin 3 mg PO HS tab 05/11/17 12/08/17 Rx Atenolol 25 mg PO DAILY 05/20/17 12/08/17 History Latanoprost Ophth [Xalatan 0.005%] 1 drop BOTH EYES HS 05/21/17 12/08/17 History Albuterol Nebulized [Ventolin 2.5 mg INHALATION RT-QID PRN 06/24/17 12/08/17 History Nebulized] HYDROcodone/APAP 10-325MG [[place] 1 tab PO Q4HR PRN 06/24/17 12/08/17 History 10-325] Nicotine Polacrilex [Nicotine Gum] 4 mg BUCCAL TID PRN 06/24/17 12/08/17 History Gabapentin [Neurontin] 300 mg PO TID 12/08/17 12/08/17 History Magnesium 200 mg PO DAILY 12/08/17 12/08/17 History Vitamin E 100 unit PO DAILY 12/08/17 12/08/17 History Allergies Allergy/AdvReac Type Severity Reaction Status Date / Time Iodinated Contrast- Oral and Allergy Anaphylaxis Verified 12/08/17 17:59 IV Dye Sulfa (Sulfonamide Allergy Rash/Hives Verified 12/08/17 17:59 Antibiotics) aspirin AdvReac Internal Verified 12/08/17 17:59 Bleeding timolol [Timolol] AdvReac Nausea & Verified 12/08/17 17:59 Vomiting Surgical - Exam Vital Signs Temp Pulse Resp BP Pulse Ox 99.4 F 89 18 134/69 95 12/08/17 17:31 12/08/17 17:31 12/08/17 17:31 12/08/17 17:31 12/08/17 17:31 - General well developed, no distress - Eyes PERRL - ENT normal pinna - Neck no masses - Respiratory normal expansion - Cardiovascular Rhythm: regular - Abdomen Some fluid in the ileostomy bag Abdomen: soft, non tender Results - Labs 12/09/17 07:13 12/09/17 07:13 Abnormal Lab Results - Last 24 Hours (Table) 12/08/17 12/08/17 12/08/17 Range/Units 17:46 17:46 17:46 WBC 18.1 H (3.8-10.6) k/uL Hct 51.4 H (34.0-46.0) % MCHC 30.4 L (31.0-37.0) g/dL Neutrophils # 15.0 H (1.3-7.7) k/uL Monocytes # 1.3 H (0-1.0) k/uL Chloride 97 L (98-107) mmol/L BUN 30 H (7-17) mg/dL Glucose 118 H (74-99) mg/dL Plasma Lactic Acid Josep 2.3 H* (0.7-2.0) mmol/L Calcium 11.1 H (8.4-10.2) mg/dL AST 39 H (14-36) U/L ALT 76 H (9-52) U/L Total Protein (6.3-8.2) g/dL Albumin (3.5-5.0) g/dL Urine Appearance (Clear) Urine Protein (Negative) Urine Blood (Negative) Amorphous Sediment (None) /hpf Urine Mucus (None) /hpf 12/08/17 12/09/17 12/09/17 Range/Units 18:05 07:13 07:13 WBC 11.3 H (3.8-10.6) k/uL Hct (34.0-46.0) % MCHC (31.0-37.0) g/dL Neutrophils # 9.4 H (1.3-7.7) k/uL Monocytes # (0-1.0) k/uL Chloride (98-107) mmol/L BUN 18 H (7-17) mg/dL Glucose 107 H (74-99) mg/dL Plasma Lactic Acid Josep (0.7-2.0) mmol/L Calcium (8.4-10.2) mg/dL AST 39 H (14-36) U/L ALT 89 H (9-52) U/L Total Protein 5.7 L (6.3-8.2) g/dL Albumin 3.3 L (3.5-5.0) g/dL Urine Appearance Turbid H (Clear) Urine Protein 2+ H (Negative) Urine Blood Moderate H (Negative) Amorphous Sediment Moderate H (None) /hpf Urine Mucus Few H (None) /hpf Diabetes panel 12/08/17 12/09/17 Range/Units 17:46 07:13 Sodium 145 141 (137-145) mmol/L Potassium 4.3 4.3 (3.5-5.1) mmol/L Chloride 97 L 107 (98-107) mmol/L Carbon Dioxide 30 25 (22-30) mmol/L BUN 30 H 18 H (7-17) mg/dL Creatinine 0.80 0.66 (0.52-1.04) mg/dL Glucose 118 H 107 H (74-99) mg/dL Calcium 11.1 H 8.4 (8.4-10.2) mg/dL AST 39 H 39 H (14-36) U/L ALT 76 H 89 H (9-52) U/L Alkaline Phosphatase 65 46 (38-126) U/L Total Protein 7.4 5.7 L (6.3-8.2) g/dL Albumin 4.6 3.3 L (3.5-5.0) g/dL Calcium panel 12/08/17 12/09/17 Range/Units 17:46 07:13 Calcium 11.1 H 8.4 (8.4-10.2) mg/dL Albumin 4.6 3.3 L (3.5-5.0) g/dL Pituitary panel 12/08/17 12/09/17 Range/Units 17:46 07:13 Sodium 145 141 (137-145) mmol/L Potassium 4.3 4.3 (3.5-5.1) mmol/L Chloride 97 L 107 (98-107) mmol/L Carbon Dioxide 30 25 (22-30) mmol/L BUN 30 H 18 H (7-17) mg/dL Creatinine 0.80 0.66 (0.52-1.04) mg/dL Glucose 118 H 107 H (74-99) mg/dL Calcium 11.1 H 8.4 (8.4-10.2) mg/dL Adrenal panel 12/08/17 12/09/17 Range/Units 17:46 07:13 Sodium 145 141 (137-145) mmol/L Potassium 4.3 4.3 (3.5-5.1) mmol/L Chloride 97 L 107 (98-107) mmol/L Carbon Dioxide 30 25 (22-30) mmol/L BUN 30 H 18 H (7-17) mg/dL Creatinine 0.80 0.66 (0.52-1.04) mg/dL Glucose 118 H 107 H (74-99) mg/dL Calcium 11.1 H 8.4 (8.4-10.2) mg/dL Total Bilirubin 0.8 0.7 (0.2-1.3) mg/dL AST 39 H 39 H (14-36) U/L ALT 76 H 89 H (9-52) U/L Alkaline Phosphatase 65 46 (38-126) U/L Total Protein 7.4 5.7 L (6.3-8.2) g/dL Albumin 4.6 3.3 L (3.5-5.0) g/dL - Imaging CT scan - pelvis: report reviewed (The small bowel consistent with ileus) Assessment and Plan Assessment: Ileus versus partial small bowel obstruction in a 57-year-old female with multiple laparotomies and ileostomy. Patient is tolerating clear liquids. We recommend observation. The patient most likely significant adhesions due to previous surgeries.
[2017-12-09] MEDS: MULTIVITAMINS, THERA 1 EACH TAB PO SCH (12:24)
--- NOTE | 2017-12-09 15:23 | P.HPIM ---
History of Present Illness H&P Date: 12/09/17 Chief Complaint: Illeus This is a 57 year-old female with a previous medical history significant for severe COPD with recent Pneumothorax requirng chest tubes and thoravent placement, fibromyalgia, history of Crohn's disease and ulcerative colitis with total colectomy and ileostomy placement with multiple surgical intervention and multiple stoma revisions and multile adhesions due t surgeries over the years, patient was brought to the ER at [facility] due to increased abdominal pain associated with intractable nausea and vomiting with worsening diarrha despite the use of tincture of opium 2 ml ever 6 hours, patient has had CT scan that showed illeus vs PSBO and she was started on IVF and was seen in consultation by general surgery and she is tolerating her clear liquid vety well, we will continue with conservative approach. Review of Systems Constitutional: Reports chronic pain, Reports fatigue, Reports weakness, Reports weight loss, Denies anorexia, Denies chills, Denies chronic headaches, Denies lethargy, Denies malaise Eyes: denies blurred vision, denies bulging eye, denies decreased vision, denies diplopia Ears: deny: decreased hearing, ear discharge Ears, nose, mouth and throat: Denies dysphagia, Denies swelling in throat, Denies sore throat, Denies vertigo Breasts: absent: change in shape Cardiovascular: Reports decreased exercise tolerance, Reports dyspnea on exertion, Reports shortness of breath, Denies chest pain, Denies lightheadedness , Denies orthopnea, Denies palpitations, Denies rapid heart beat, Denies syncope Respiratory: Reports dyspnea, Denies congestion, Denies cough, Denies cough with sputum, Denies home oxygen, Denies pain, Denies respiratory infections, Denies sleep apnea, Denies snoring, Denies wheezing Gastrointestinal: Reports abdominal pain, Reports change in bowel habits, Reports loss of appetite, Reports nausea, Reports vomiting, Denies bloating, Denies BRBPR, Denies coffee ground emesis, Denies constipation, Denies excessive gas, Denies heartburn, Denies hematemesis, Denies hematochezia, Denies indigestion, Denies melena Genitourinary: Denies dysuria, Denies hematuria Menstruation: Reports post hysterectomy Musculoskeletal: Denies myalgias Musculoskeletal: absent: ankle pain, ankle stiffness, ankle swelling, elbow pain , elbow stiffness, elbow swelling, foot pain, foot stiffness, foot swelling, hand pain, hand stiffness, hand swelling, hip pain, hip stiffness, hip swelling , knee pain, knee stiffness, knee swelling, shoulder pain, shoulder stiffness, shoulder swelling, wrist pain, wrist stiffness, wrist swelling Integumentary: Denies pruritus, Denies rash Neurological: Denies numbness, Denies weakness Psychiatric: Denies anxiety, Denies depression Endocrine: Denies fatigue, Denies weight change Past Medical History Past Medical History: COPD, Fibromyalgia, GERD/Reflux, GI Bleed, Hyperlipidemia , Hypertension, Osteoarthritis (OA), Pneumonia, Syncope Additional Past Medical History / Comment(s): COPD, severe with an FEV1 of 36% of predicted, crohn's, bowel obstructions, lower GI bleeds, hiatal hernia, osteoporosis, arthritis multiple joints, seasonal allergies, right-sided pneumothorax x2 History of Any Multi-Drug Resistant Organisms: None Reported Past Surgical History: Breast Surgery, Cholecystectomy, Hernia Repair, Hysterectomy, Orthopedic Surgery Additional Past Surgical History / Comment(s): Multiple bowel surgeries including total colectomy/ileostomy, ileostomy moved/repaired, R tube and R ovary removed due toectopic , total hysterectomy, leep procedure, laparoscopy for endometriosis, L breast lumpectomy-benign, r breast core bx- benign, EGD/colonoscopies. Right-sided Thora-vent placement May 09 and May 19. Eye surgery bilateral,arthroscopic knee surgery on he right due to ACL and Maniscal tear. Past Anesthesia/Blood Transfusion Reactions: No Reported Reaction Past Psychological History: No Psychological Hx Reported Additional Psychological History / Comment(s): Pt currently is staying with her 90 yr old father who has dementia. Her spouse is staying at their home to care for the dogs. 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 Smoking Status: Former smoker (used to smoke PPD since she was 17, she smoked for 30 years and quit 05/15.) Past Alcohol Use History: None Reported Additional Past Alcohol Use History / Comment(s): smoker since age 17. pt states she has not smoked since last admission early this month, has been using nicotine patch at home Past Drug Use History: None Reported - Past Family History Mother Family Medical History: Cancer (Mother at the age of 83 from COPD and OA and she had skin cancer.), COPD, Hypertension Additional Family Medical History / Comment(s): Skin cancer and osteoporosis. Father Family Medical History: Cancer, CVA/TIA, Dementia, Diabetes Mellitus (Father is 91 year old, with dementia , diabetes and CVA.) Additional Family Medical History / Comment(s): Father is 90yrs old. Brother(s) Family Medical History: Cancer (Patient had 5 brothers one of them from Melanoma.) Sister(s) Family Medical History: No Reported History (Patient has one sister (my patient) .) Additional Family Medical History / Comment(s): Patient has no kids. Medications and Allergies Home Medications Medication Instructions Recorded Confirmed Type Aclidinium [place] [Tudorza 400 mcg INHALATION RT-BID 06/21/14 12/08/17 History Pressair] Adalimumab [Humira Pen] 40 mg SQ FR 06/21/14 12/08/17 History Calcium Carb-Vit D 500Mg-200Un 1 tab PO BID 04/27/16 12/08/17 History [Oscal 500+D] Fluticasone/Vilanterol [Breo 1 puff INHALATION RT-HS 04/27/16 12/08/17 History Ellipta 100-25 Mcg Inhaler] Multivitamins, Thera [Multivitamin 1 tab PO DAILY 04/27/16 12/08/17 History (formulary)] Opium Tincture 2 ml PO QID 04/27/16 12/08/17 History Mercaptopurine [Purinethol] 50 mg PO BID 02/22/17 12/08/17 History Albuterol Sulfate [Proair Hfa] 2 puff INHALATION RT-Q4H PRN 05/09/17 12/08/17 History Cholecalciferol [Vitamin D3] 3,000 unit PO DAILY 05/09/17 12/08/17 History busPIRone HCl [Buspar] 10 mg PO BID 05/09/17 12/08/17 History Melatonin 3 mg PO HS tab 05/11/17 12/08/17 Rx Atenolol 25 mg PO DAILY 05/20/17 12/08/17 History Latanoprost Ophth [Xalatan 0.005%] 1 drop BOTH EYES HS 05/21/17 12/08/17 History Albuterol Nebulized [Ventolin 2.5 mg INHALATION RT-QID PRN 06/24/17 12/08/17 History Nebulized] HYDROcodone/APAP 10-325MG [[place] 1 tab PO Q4HR PRN 06/24/17 12/08/17 History 10-325] Nicotine Polacrilex [Nicotine Gum] 4 mg BUCCAL TID PRN 06/24/17 12/08/17 History Gabapentin [Neurontin] 300 mg PO TID 12/08/17 12/08/17 History Magnesium 200 mg PO DAILY 12/08/17 12/08/17 History Vitamin E 100 unit PO DAILY 12/08/17 12/08/17 History Allergies Allergy/AdvReac Type Severity Reaction Status Date / Time Iodinated Contrast- Oral and Allergy Anaphylaxis Verified 12/08/17 17:59 IV Dye Sulfa (Sulfonamide Allergy Rash/Hives Verified 12/08/17 17:59 Antibiotics) aspirin AdvReac Internal Verified 12/08/17 17:59 Bleeding timolol [Timolol] AdvReac Nausea & Verified 12/08/17 17:59 Vomiting Physical Exam Vitals: Vital Signs Temp Pulse Pulse Resp BP BP Pulse Ox 12/08/17 22:13 96.7 F L 66 18 109/65 95 12/08/17 20:18 98.0 F 76 16 102/58 92 L 12/08/17 17:31 99.4 F 89 18 134/69 95 Intake and Output 12/08/17 12/09/17 12/09/17 22:59 06:59 14:59 Intake Total 800 Balance 800 Intake: Intake, IV Titration 800 Amount Sodium Chloride 0.9% 1, 800 000 ml @ 100 mls/hr IV . Q10H STA Rx#:[id number] Other: # Voids 1 Weight 49.895 kg - Constitutional General appearance: no acute distress - EENT Eyes: anicteric sclerae, EOMI, PERRLA, dentition normal, no ptosis, no scleral icterus, normal appearance ENT: hearing grossly normal, NA/AT, normal oropharynx, no thrush Ears: bilateral: normal - Neck Neck: no lymphadenopathy, normal ROM, no rigidity, no stridor, no thyromegaly Carotids: bilateral: upstroke normal Thyroid: bilateral: normal size - Respiratory Respiratory: bilateral: diminished, negative: dullness, rales, rhonchi, wheezing , prolonged expiration, prolonged inspiration - Cardiovascular Rhythm: regular Heart sounds: normal: S1, S2 Abnormal Heart Sounds: no systolic murmur, no S3 Gallop, no S4 Gallop, no click - Gastrointestinal General gastrointestinal: normal bowel sounds, soft, no splenomegaly, no tenderness, no umbilical hernia (ileostomy.) - Integumentary Integumentary: normal, normal turgor - Neurologic Neurologic: CNII-XII intact - Musculoskeletal Musculoskeletal: gait normal, strength equal bilaterally - Psychiatric Psychiatric: A&O x's 3, appropriate affect, intact judgment & insight Results CBC & Chem 7: 12/09/17 07:13 12/09/17 07:13 Labs: Abnormal Lab Results - Last 24 Hours (Table) 12/08/17 12/08/17 12/08/17 Range/Units 17:46 17:46 17:46 WBC 18.1 H (3.8-10.6) k/uL Hct 51.4 H (34.0-46.0) % MCHC 30.4 L (31.0-37.0) g/dL Neutrophils # 15.0 H (1.3-7.7) k/uL Monocytes # 1.3 H (0-1.0) k/uL Chloride 97 L (98-107) mmol/L BUN 30 H (7-17) mg/dL Glucose 118 H (74-99) mg/dL Plasma Lactic Acid Josep 2.3 H* (0.7-2.0) mmol/L Calcium 11.1 H (8.4-10.2) mg/dL AST 39 H (14-36) U/L ALT 76 H (9-52) U/L Total Protein (6.3-8.2) g/dL Albumin (3.5-5.0) g/dL Urine Appearance (Clear) Urine Protein (Negative) Urine Blood (Negative) Amorphous Sediment (None) /hpf Urine Mucus (None) /hpf 12/08/17 12/09/17 12/09/17 Range/Units 18:05 07:13 07:13 WBC 11.3 H (3.8-10.6) k/uL Hct (34.0-46.0) % MCHC (31.0-37.0) g/dL Neutrophils # 9.4 H (1.3-7.7) k/uL Monocytes # (0-1.0) k/uL Chloride (98-107) mmol/L BUN 18 H (7-17) mg/dL Glucose 107 H (74-99) mg/dL Plasma Lactic Acid Josep (0.7-2.0) mmol/L Calcium (8.4-10.2) mg/dL AST 39 H (14-36) U/L ALT 89 H (9-52) U/L Total Protein 5.7 L (6.3-8.2) g/dL Albumin 3.3 L (3.5-5.0) g/dL Urine Appearance Turbid H (Clear) Urine Protein 2+ H (Negative) Urine Blood Moderate H (Negative) Amorphous Sediment Moderate H (None) /hpf Urine Mucus Few H (None) /hpf Thrombosis Risk Factor Assmnt - DVT/VTE Prophylaxis DVT/VTE Prophylaxis: Pharmacologic Prophylaxis ordered, Mechanical Prophylaxis ordered - Choose All That Apply Any of the Below Risk Factors Present?: Yes Each Factor Represents 1 point: Age 41-60 years Thrombosis Risk Factor Assessment Total Risk Factor Score: 1 Thrombosis Risk Factor Assessment Level: Low Risk Assessment and Plan Assessment: Assessment and Plan: 1. Ileus vs PSBO. will continue with IVF for the next 24 h and will keep clear liquids for now,surgery saw the patient and recommended conservative approach. 2. Multiple abdominal surgeries due to IBD(crohn and Ulcerative colitis) with multiple adhesions likely the culprit of her pain. we will monitor. 3. IBD. continue to hold off Humira and MP. 4. Hypertension and hypertensive cardiovascular disease. will continue with Atenolol 25 mg orally daily. 5. Severe COPD with FEV1 36%. will continue with Neb Rx and Tudorza along with Breo Ellipta. we will check XR. 6. Fibromyalgia. we will continue with Gabapentin 300 mg po tid. 7. 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 we will continue with opium tincture 2 ml orally 4 times per day. 8. H/O right sided Pneumothorax. post Thoravents. 9. GERD with hiatal hernia. we will continue with PPI. 10. Osteoporosis. stable. 11. DVT prophylaxis. we will continue with heparin 5000 units sc q 8 h 12. GI prophylaxis. we will continue with PPI. 13. Full code. 14. admits as an inpatient. estimated length of stay 2 midnights.
[2017-12-09] MEDS: HEPARIN SODIUM,PORCINE 5,000 UNIT/ML 1 ML VIAL SQ SCH (15:52)
[2017-12-09] MEDS: MELATONIN 3 MG TABLET PO SCH (20:55)
[2017-12-09] MEDS: TEMAZEPAM 15 MG CAP PO PRN (22:12)
[2017-12-10] MEDS: HYDROmorphone 0.5 MG/0.5 ML SYRINGE IVP PRN (00:15)
[2017-12-10] MEDS: HEPARIN SODIUM,PORCINE 5,000 UNIT/ML 1 ML VIAL SQ SCH ×4 (00:16→23:28)
[2017-12-10] MEDS: HYDROmorphone 4 MG TABLET PO PRN ×4 (03:19→21:06)
[2017-12-10] MEDS: ONDANSETRON 4 MG/2 ML VIAL IVP PRN ×3 (03:19→23:28)
[2017-12-10] MEDS: HYDROcodone/APAP 10-325MG 1 EACH TAB PO PRN ×4 (06:19→23:28)
[2017-12-10] MEDS: IPRATROPIUM 0.5 MG/2.5 ML NEBU INHALATION SCH ×4 (07:11→21:22)
[2017-12-10] MEDS: SYMBICORT 80-4.5 MCG INHALER INHALATION SCH ×2 (07:11→21:22)
[2017-12-10] MEDS: GABAPENTIN 300 MG CAP PO SCH ×3 (07:45→19:41)
[2017-12-10] MEDS: busPIRone HCl 10 MG TAB PO SCH ×2 (07:45→19:40)
[2017-12-10] MEDS: ATENOLOL 25 MG TAB PO SCH (07:46)
[2017-12-10] MEDS: MAGNESIUM OXIDE 400 MG TAB PO SCH (07:46)
[2017-12-10] MEDS: CALCIUM CARB-VIT D 500MG-200UN 1 EACH TAB PO SCH ×2 (07:46→19:40)
[2017-12-10] MEDS: CHOLECALCIFEROL 1,000 UNIT TAB PO SCH (07:46)
[2017-12-10] MEDS: PANTOPRAZOLE 40 MG/10 ML VIAL IVP SCH (07:47)
[2017-12-10] MEDS: MERCAPTOPURINE 50 MG TAB PO SCH ×2 (07:47→19:40)
[2017-12-10] MEDS: VITAMIN E (DL,TOCOPHERYL ACET) 400 UNIT CAP PO SCH (07:47)
[2017-12-10] MEDS: OPIUM TINCTURE PO SCH ×4 (07:47→21:07)
[2017-12-10 08:16] LABS: ALT 64 U/L (9-52); AST 21 U/L (14-36); Albumin 3.3 g/dL (3.5-5.0); Alkaline Phosphatase 45 U/L (38-126); Anion Gap 7 mmol/L; Blood Urea Nitrogen 10 mg/dL (7-17); Calcium 9.4 mg/dL (8.4-10.2); Carbon Dioxide 28 mmol/L (22-30); Chloride 105 mmol/L (98-107); Glucose 93 mg/dL (74-99); Magnesium 1.8 mg/dL (1.6-2.3); Potassium 4.5 mmol/L (3.5-5.1); Sodium 140 mmol/L (137-145); Total Bilirubin 0.5 mg/dL (0.2-1.3); Total Protein 5.6 g/dL (6.3-8.2)
--- NOTE | 2017-12-10 08:30 | P.PN ---
Progress Note - Text Progress Note Date: 12/10/17 The patient is tolerating her diet. For abdomen soft nontender Ileus/PSB O resolving. The patient was discharged home per medicine.
[2017-12-10 08:36] LABS: Basophils % (A) 0 %; Eosinophils % (A) 0 %; HCT 42.7 % (34.0-46.0); HGB 12.8 gm/dL (11.4-16.0); Hypochromasia Slight; Lymphocytes # (A) 1.1 k/uL (1.0-4.8); Lymphocytes % (A) 13 %; MCH 29.2 pg (25.0-35.0); MCHC 29.9 g/dL (31.0-37.0); MCV 97.7 fL (80.0-100.0); Mean Platelet Volume 6.5; Monocytes # (A) 0.6 k/uL (0-1.0); Monocytes % (A) 7 %; Neutrophils # (A) 6.9 k/uL (1.3-7.7); Neutrophils % (A) 79 %; Platelet Count 256 k/uL (150-450); RBC 4.37 m/uL (3.80-5.40); WBC 8.7 k/uL (3.8-10.6)
[2017-12-10] MEDS: MULTIVITAMINS, THERA 1 EACH TAB PO SCH (12:10)
--- NOTE | 2017-12-10 12:30 | P.PN ---
Subjective Progress Note Date: 12/10/17 This is a 57 year-old female with a previous medical history significant for severe COPD with recent Pneumothorax requirng chest tubes and thoravent placement, fibromyalgia, history of Crohn's disease and ulcerative colitis with total colectomy and ileostomy placement with multiple surgical intervention and multiple stoma revisions and multile adhesions due t surgeries over the years, patient was brought to the ER at [facility] due to increased abdominal pain associated with intractable nausea and vomiting with worsening diarrha despite the use of tincture of opium 2 ml ever 6 hours, patient has had CT scan that showed illeus vs PSBO and she was started on IVF and was seen in consultation by general surgery and she is tolerating her clear liquid vety well, we will continue with conservative approach. 12/10: Patient is feeling a lot better today she denies any chest pain or shortness breath, she does complain of some abdominal pain, she had a good bowel movement today, she denies any nausea, she continues to have some pain on and off, we will advance her diet to full liquid diet for the next 24 hours hopefully sending the patient home tomorrow morning. Objective - Vital Signs Vital signs: Vital Signs Temp 98 F 12/10/17 07:00 Pulse 72 12/10/17 07:24 Resp 16 12/10/17 07:00 BP 136/80 12/10/17 07:00 Pulse Ox 94 L 12/10/17 07:00 Intake & Output 12/09/17 12/10/17 12/10/17 18:59 06:59 18:59 Intake Total 1680 300 Balance 1680 300 Weight 49.895 kg Intake: Intake, IV Titration 1200 Amount Sodium Chloride 0.9% 1, 1200 000 ml @ 100 mls/hr IV . Q10H STA Rx#:[id number] Oral 480 300 Other: # Voids 3 1 # Bowel Movements 4 1 - Exam - Constitutional General appearance: no acute distress - EENT Eyes: anicteric sclerae, EOMI, PERRLA, dentition normal, no ptosis, no scleral icterus, normal appearance ENT: hearing grossly normal, NA/AT, normal oropharynx, no thrush Ears: bilateral: normal - Neck Neck: no lymphadenopathy, normal ROM, no rigidity, no stridor, no thyromegaly Carotids: bilateral: upstroke normal Thyroid: bilateral: normal size - Respiratory Respiratory: bilateral: diminished, negative: dullness, rales, rhonchi, wheezing , prolonged expiration, prolonged inspiration - Cardiovascular Rhythm: regular Heart sounds: normal: S1, S2 Abnormal Heart Sounds: no systolic murmur, no S3 Gallop, no S4 Gallop, no click - Gastrointestinal General gastrointestinal: normal bowel sounds, soft, no splenomegaly, no tenderness, no umbilical hernia (ileostomy.) - Integumentary Integumentary: normal, normal turgor - Neurologic Neurologic: CNII-XII intact - Musculoskeletal Musculoskeletal: gait normal, strength equal bilaterally - Psychiatric Psychiatric: A&O x's 3, appropriate affect, intact judgment & insight - Labs CBC & Chem 7: 12/10/17 07:16 12/10/17 07:16 Labs: Microbiology - Last 24 Hours (Table) 12/08/17 17:46 Blood Culture - Preliminary Blood No Growth after 24 hours Assessment and Plan Assessment: Assessment and Plan: 1. Ileus vs PSBO likely resolved. will advance diet to full liquid diet, Hep- Lock IV. 2. Multiple abdominal surgeries due to IBD(crohn and Ulcerative colitis) with multiple adhesions likely the culprit of her pain. we will monitor. 3. IBD. continue to hold off Humira and MP. 4. Hypertension and hypertensive cardiovascular disease. will continue with Atenolol 25 mg orally daily. 5. Severe COPD with FEV1 36%. will continue with Neb Rx and Tudorza along with Breo Ellipta. we will check XR. 6. Fibromyalgia. we will continue with Gabapentin 300 mg po tid. 7. 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 we will continue with opium tincture 2 ml orally 4 times per day. 8. H/O right sided Pneumothorax. post Thoravents. 9. GERD with hiatal hernia. we will continue with PPI. 10. Osteoporosis. stable. 11. DVT prophylaxis. we will continue with heparin 5000 units sc q 8 h 12. GI prophylaxis. we will continue with PPI. 13. Full code. 14. Home tomorrow morning.
[2017-12-10] MEDS: MELATONIN 3 MG TABLET PO SCH (19:40)
--- NOTE | 2017-12-10 19:58 | XR ---
EXAMINATION TYPE: XR chest 1V portable DATE OF EXAM: 12/10/2017 COMPARISON: NONE INDICATION: Possible collapsed lung TECHNIQUE: Single frontal view of the chest is obtained. FINDINGS: The heart size is normal. The pulmonary vasculature is normal. The lungs are clear. No pneumothorax is evident. A large emphysematous bleb is in the left upper apex. Emphysematous powers es are present. Old right rib fractures are evident. IMPRESSION: 1. Extensive emphysematous change. Large bleb appears to be at the left apex. No pneumothorax is iden tified.
[2017-12-10] MEDS ORDERED: LATANOPROST 0.005% OPHTH DROPS 2.5 ML BTL BOTH EYES SCH (21:00)
[2017-12-10] MEDS: TEMAZEPAM 15 MG CAP PO PRN (23:28)
[2017-12-11] MEDS: HYDROmorphone 4 MG TABLET PO PRN ×3 (05:10→12:16)
[2017-12-11] MEDS: IPRATROPIUM 0.5 MG/2.5 ML NEBU INHALATION SCH ×2 (07:44→11:14)
[2017-12-11] MEDS: SYMBICORT 80-4.5 MCG INHALER INHALATION SCH (07:44)
[2017-12-11 07:47] VITALS: BP 113/76; RESP 16; TEMP 99.1
[2017-12-11 08:00] LABS: ALT 59 U/L (9-52); AST 20 U/L (14-36); Albumin 3.6 g/dL (3.5-5.0); Alkaline Phosphatase 48 U/L (38-126); Anion Gap 8 mmol/L; Blood Urea Nitrogen 12 mg/dL (7-17); Calcium 10.2 mg/dL (8.4-10.2); Carbon Dioxide 28 mmol/L (22-30); Chloride 103 mmol/L (98-107); Glucose 105 mg/dL (74-99); Magnesium 1.7 mg/dL (1.6-2.3); Potassium 4.7 mmol/L (3.5-5.1); Sodium 139 mmol/L (137-145); Total Bilirubin 0.5 mg/dL (0.2-1.3)
[2017-12-11] MEDS: VITAMIN E (DL,TOCOPHERYL ACET) 400 UNIT CAP PO SCH (08:27)
[2017-12-11] MEDS: MAGNESIUM OXIDE 400 MG TAB PO SCH (08:27)
[2017-12-11] MEDS: CHOLECALCIFEROL 1,000 UNIT TAB PO SCH (08:27)
[2017-12-11] MEDS: busPIRone HCl 10 MG TAB PO SCH (08:27)
[2017-12-11] MEDS: CALCIUM CARB-VIT D 500MG-200UN 1 EACH TAB PO SCH (08:28)
[2017-12-11] MEDS: GABAPENTIN 300 MG CAP PO SCH (08:28)
[2017-12-11] MEDS: HEPARIN SODIUM,PORCINE 5,000 UNIT/ML 1 ML VIAL SQ SCH (08:28)
[2017-12-11] MEDS: PANTOPRAZOLE 40 MG/10 ML VIAL IVP SCH (08:28)
[2017-12-11] MEDS: ATENOLOL 25 MG TAB PO SCH (08:28)
[2017-12-11] MEDS: OPIUM TINCTURE PO SCH ×2 (08:29→12:16)
[2017-12-11] MEDS: ONDANSETRON 4 MG/2 ML VIAL IVP PRN (08:47)
[2017-12-11] MEDS: MERCAPTOPURINE 50 MG TAB PO SCH (09:27)
[2017-12-11 11:27] VITALS: PULSE 84
[2017-12-11] MEDS: MULTIVITAMINS, THERA 1 EACH TAB PO SCH (12:15)
--- NOTE | 2017-12-11 12:16 | P.DS ---
Providers Date of admission: 12/08/17 19:55 Expected date of discharge: 12/11/17 Attending physician: Tacho Siddiqui Consults: 12/09/17 09:08 Consult Physician Routine Consulting Provider: Fernando Aguayo Reason/Comments: Ileus Do you want consulting provider notified?: Already Contacted Primary care physician: [facility] Course: This is a 57 year-old female with a previous medical history significant for severe COPD with recent Pneumothorax requirng chest tubes and thoravent placement, fibromyalgia, history of Crohn's disease and ulcerative colitis with total colectomy and ileostomy placement with multiple surgical intervention and multiple stoma revisions and multile adhesions due t surgeries over the years, patient was brought to the ER at [facility] due to increased abdominal pain associated with intractable nausea and vomiting with worsening diarrha despite the use of tincture of opium 2 ml ever 6 hours, patient has had CT scan that showed illeus vs PSBO and she was started on IVF and was seen in consultation by general surgery and she is tolerating her clear liquid vety well, we will continue with conservative approach. 12/10: Patient is feeling a lot better today she denies any chest pain or shortness breath, she does complain of some abdominal pain, she had a good bowel movement today, she denies any nausea, she continues to have some pain on and off, we will advance her diet to full liquid diet for the next 24 hours hopefully sending the patient home tomorrow morning. 12/11: Patient continues to tolerate diet with no nausea or vomiting. Patient will be discharged home today in stable condition. Noted ALT is 59. Discharge diagnoses: 1. PSBO resolved. 2. Multiple abdominal surgeries due to IBD(crohn and Ulcerative colitis) with multiple adhesions likely the culprit of her pain. 3. IBD. continue to hold off Humira and MP. 4. Hypertension and hypertensive cardiovascular disease. 5. Severe COPD with FEV1 36%. 6. Fibromyalgia. 7. 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 8. H/O right sided Pneumothorax. post Thoravents. 9. GERD with hiatal hernia. 10. Osteoporosis. stable. Discharge plan: Home Impression and plan of care have been directed as dictated by the signing physician. Gaby Rothman nurse practitioner acting as scribe for signing physician. Patient Condition at Discharge: Good Plan - Discharge Summary Discharge Rx Participant: No New Discharge Prescriptions: Continue Adalimumab [Humira Pen] 40 mg SQ FR Aclidinium [place] [Tudorza Pressair] 400 mcg INHALATION RT-BID Fluticasone/Vilanterol [Breo Ellipta 100-25 Mcg Inhaler] 1 puff INHALATION RT -HS Opium Tincture 2 ml PO QID Multivitamins, Thera [Multivitamin (formulary)] 1 tab PO DAILY Calcium Carb-Vit D 500Mg-200Un [Oscal 500+D] 1 tab PO BID Mercaptopurine [Purinethol] 50 mg PO BID Albuterol Sulfate [Proair Hfa] 2 puff INHALATION RT-Q4H PRN PRN Reason: Shortness Of Breath busPIRone HCl [Buspar] 10 mg PO BID Cholecalciferol [Vitamin D3] 3,000 unit PO DAILY Melatonin 3 mg PO HS tab Atenolol 25 mg PO DAILY Latanoprost Ophth [Xalatan 0.005%] 1 drop BOTH EYES HS Albuterol Nebulized [Ventolin Nebulized] 2.5 mg INHALATION RT-QID PRN PRN Reason: Shortness Of Breath HYDROcodone/APAP 10-325MG [Trinchera 10-325] 1 tab PO Q4HR PRN PRN Reason: Abdominal Pain Nicotine Polacrilex [Nicotine Gum] 4 mg BUCCAL TID PRN PRN Reason: Nicotine Cravings Vitamin E 100 unit PO DAILY Magnesium 200 mg PO DAILY Gabapentin [Neurontin] 300 mg PO TID Discharge Medication List Aclidinium [place] [Tudorza Pressair] 400 mcg INHALATION RT-BID 06/21/14 [ History] Adalimumab [Humira Pen] 40 mg SQ FR 06/21/14 [History] Calcium Carb-Vit D 500Mg-200Un [Oscal 500+D] 1 tab PO BID 04/27/16 [History] Fluticasone/Vilanterol [Breo Ellipta 100-25 Mcg Inhaler] 1 puff INHALATION RT- HS 04/27/16 [History] Multivitamins, Thera [Multivitamin (formulary)] 1 tab PO DAILY 04/27/16 [History ] Opium Tincture 2 ml PO QID 04/27/16 [History] Mercaptopurine [Purinethol] 50 mg PO BID 02/22/17 [History] Albuterol Sulfate [Proair Hfa] 2 puff INHALATION RT-Q4H PRN 05/09/17 [History] Cholecalciferol [Vitamin D3] 3,000 unit PO DAILY 05/09/17 [History] busPIRone HCl [Buspar] 10 mg PO BID 05/09/17 [History] Melatonin 3 mg PO HS tab 05/11/17 [Rx] Atenolol 25 mg PO DAILY 05/20/17 [History] Latanoprost Ophth [Xalatan 0.005%] 1 drop BOTH EYES HS 05/21/17 [History] Albuterol Nebulized [Ventolin Nebulized] 2.5 mg INHALATION RT-QID PRN 06/24/17 [ History] HYDROcodone/APAP 10-325MG [Trinchera 10-325] 1 tab PO Q4HR PRN 06/24/17 [History] Nicotine Polacrilex [Nicotine Gum] 4 mg BUCCAL TID PRN 06/24/17 [History] Gabapentin [Neurontin] 300 mg PO TID 12/08/17 [History] Magnesium 200 mg PO DAILY 12/08/17 [History] Vitamin E 100 unit PO DAILY 12/08/17 [History] Follow up Appointment(s)/Referral(s): Heber James MD [Primary Care Provider] - 12/18/17 3:00 pm Patient Instructions/Handouts: Ileus (DC) Discharge Disposition: HOME SELF-CARE
--- NOTE | 2017-12-11 13:25 | P.PN ---
Subjective Progress Note Date: 12/11/17 Principal diagnosis: Abdominal pain Patient says her symptoms are improved. Still having mild pain. She is having ostomy function. No nausea or vomiting. Tolerating full liquids. Objective - Vital Signs Vital signs: Vital Signs Temp 99.1 F 12/11/17 07:00 Pulse 84 12/11/17 11:27 Resp 16 12/11/17 07:00 BP 113/76 12/11/17 07:00 Pulse Ox 95 12/11/17 07:47 Intake & Output 12/10/17 12/11/17 12/11/17 18:59 06:59 18:59 Intake Total 580 300 Balance 580 300 Weight 49.895 kg Intake: Oral 580 300 Other: # Voids 5 # Bowel Movements 2 - Exam Abdomen: Soft, nondistended, mild tenderness - Labs CBC & Chem 7: 12/10/17 07:16 12/11/17 07:02 Labs: Abnormal Lab Results - Last 24 Hours (Table) 12/11/17 Range/Units 07:02 Glucose 105 H (74-99) mg/dL ALT 59 H (9-52) U/L Total Protein 6.0 L (6.3-8.2) g/dL Microbiology - Last 24 Hours (Table) 12/08/17 17:46 Blood Culture - Preliminary Blood No Growth after 48 hours Assessment and Plan (1) Lower abdominal pain Narrative/Plan: Patient's admission likely related to either gastroenteritis or PSBO. Either way the patient's symptoms are improved. Continue slowly advancing diet. May discharge from my standpoint. Current Visit: No Status: Acute Code(s): R10.30 - LOWER ABDOMINAL PAIN, UNSPECIFIED SNOMED Code(s): 58842186
== END 2017-12-11 13:50 | disposition home or self-care (01) | DRG 389 ==
LOC: EC 17:28 → 5MS5E 19:55
PROVIDERS: ADMIT Internal Medicine Geriatric Medicine; ATTEND Internal Medicine Geriatric Medicine
DX: K56.51 Intestinal adhesions [bands], with partial obstruction (principal); K91.2 Postsurgical malabsorption, not elsewhere classified; I11.9 Hypertensive heart disease without heart failure; E78.5 Hyperlipidemia, unspecified; E86.0 Dehydration; J44.9 Chronic obstructive pulmonary disease, unspecified; K21.9 Gastro-esophageal reflux disease without esophagitis; M79.7 Fibromyalgia; M81.0 Age-related osteoporosis without current pathological fracture; J30.2 Other seasonal allergic rhinitis; M15.9 Polyosteoarthritis, unspecified; D72.829 Elevated white blood cell count, unspecified; Z79.899 Other long term (current) drug therapy; Z87.891 Personal history of nicotine dependence; Z90.710 Acquired absence of both cervix and uterus; Z90.49 Acquired absence of other specified parts of digestive tract; Z88.2 Allergy status to sulfonamides; Z88.8 Allergy status to other drugs, medicaments and biological substances; Z88.6 Allergy status to analgesic agent; Z91.041 Radiographic dye allergy status; Z82.49 Family history of ischemic heart disease and other diseases of the circulatory system
CPT/HCPCS: 36415; 71045; 74176; 80053; 81001; 82150; 83605; 83690; 83735; 85025; 87040; 87502; 94640; 94760; 96361; 96374; 96375; 96376; 99285

== ENCOUNTER 2017-12-18 11:53 | Inpatient (IN) | payer BC ==
[2017-12-18] MEDS ORDERED: ACETAMINOPHEN TAB 500 MG TAB PO STA (12:04)
[2017-12-18] MEDS ORDERED: SODIUM CHLORIDE 0.9% 1,000 ML IV ONE (12:04)
[2017-12-18] MEDS ORDERED: methylPREDNISolone SOD SUCCI 125 MG/2 ML VIAL IV STA (12:04)
[2017-12-18] MEDS ORDERED: IPRATROPIUM-ALBUTEROL 3 ML NEB INHALATION STA (12:04)
[2017-12-18] MEDS: SODIUM CHLORIDE 0.9% 1,000 ML IV SCH ×2 (12:20→23:58)
[2017-12-18 12:46] LABS: Basophils # (A) 0.1 k/uL (0-0.2); Basophils % (A) 1 %; Eosinophils # (A) 0.1 k/uL (0-0.7); Eosinophils % (A) 1 %; HCT 49.3 % (34.0-46.0); HGB 15.3 gm/dL (11.4-16.0); Hypochromasia Slight; Lymphocytes # (A) 1.2 k/uL (1.0-4.8); Lymphocytes % (A) 13 %; MCH 30.1 pg (25.0-35.0); Mean Platelet Volume 6.9; Monocytes # (A) 0.3 k/uL (0-1.0); Monocytes % (A) 4 %; Neutrophils # (A) 7.6 k/uL (1.3-7.7); Neutrophils % (A) 81 %; Platelet Count 215 k/uL (150-450); RBC 5.09 m/uL (3.80-5.40); RDW 13.9 % (11.5-15.5); WBC 9.3 k/uL (3.8-10.6)
[2017-12-18] MEDS ORDERED: MORPHINE SULFATE 4 MG/ML SYRINGE IVP STA (12:50)
[2017-12-18 12:55] LABS: ALT 53 U/L (9-52); AST 29 U/L (14-36); Albumin 4.2 g/dL (3.5-5.0); Alkaline Phosphatase 87 U/L (38-126); Anion Gap 13 mmol/L; Blood Urea Nitrogen 17 mg/dL (7-17); Calcium 9.2 mg/dL (8.4-10.2); Carbon Dioxide 25 mmol/L (22-30); Chloride 105 mmol/L (98-107); Glucose 102 mg/dL (74-99); Magnesium 1.6 mg/dL (1.6-2.3); Sodium 143 mmol/L (137-145); Total Bilirubin 0.4 mg/dL (0.2-1.3); Total Protein 7.1 g/dL (6.3-8.2)
--- NOTE | 2017-12-18 12:59 | ED ---
SOB HPI - General Chief Complaint: Shortness of Breath Stated Complaint: Diff Breathing Time Seen by Provider: 12/18/17 11:56 Source: EMS Mode of arrival: EMS Limitations: no limitations - History of Present Illness Initial Comments: This is a 57-year-old female to history of COPD that is not oxygen dependent at home who presents emergency department for shortness of breath. The patient states that it seemed like it happened earlier today and last night. She states that she's been coughing and having a lot of chest discomfort and stomach discomfort when she coughs. She states that she's also been nauseous and having a little bit of diarrhea with dry heaves. She denies any fevers or chills at home however does state that she's had a temperature of 99. Denies any chest discomfort except for when coughing. EMS picked her up and he stated that she was tripoding at home and very tachypnea. She was given DuoNeb in route which she states mildly improve her symptoms. She has been caring for a relative that was recently ill with influenza. - Related Data Home Medications Medication Instructions Recorded Confirmed Aclidinium [place] [Tudorza 400 mcg INHALATION RT-BID 06/21/14 12/18/17 Pressair] Adalimumab [Humira Pen] 40 mg SQ FR 06/21/14 12/18/17 Calcium Carb-Vit D 500Mg-200Un 1 tab PO BID 04/27/16 12/18/17 [Oscal 500+D] Fluticasone/Vilanterol [Breo 1 puff INHALATION RT-HS 04/27/16 12/18/17 Ellipta 100-25 Mcg Inhaler] Multivitamins, Thera [Multivitamin 1 tab PO DAILY 04/27/16 12/18/17 (formulary)] Opium Tincture 2 ml PO QID 04/27/16 12/18/17 Mercaptopurine [Purinethol] 50 mg PO BID 02/22/17 12/18/17 Albuterol Sulfate [Proair Hfa] 2 puff INHALATION RT-Q4H PRN 05/09/17 12/18/17 Cholecalciferol [Vitamin D3] 3,000 unit PO DAILY 05/09/17 12/18/17 busPIRone HCl [Buspar] 10 mg PO BID 05/09/17 12/18/17 Atenolol 25 mg PO DAILY 05/20/17 12/18/17 Latanoprost Ophth [Xalatan 0.005%] 1 drop BOTH EYES HS 05/21/17 12/18/17 Albuterol Nebulized [Ventolin 2.5 mg INHALATION RT-QID PRN 06/24/17 12/18/17 Nebulized] HYDROcodone/APAP 10-325MG [[place] 1 tab PO Q4HR PRN 06/24/17 12/18/17 10-325] Nicotine Polacrilex [Nicotine Gum] 4 mg BUCCAL TID PRN 06/24/17 12/18/17 Gabapentin [Neurontin] 300 mg PO TID 12/08/17 12/18/17 Magnesium 200 mg PO DAILY 12/08/17 12/18/17 Vitamin E 100 unit PO DAILY 12/08/17 12/18/17 Previous Rx's Medication Instructions Recorded Melatonin 3 mg PO HS tab 05/11/17 Allergies Allergy/AdvReac Type Severity Reaction Status Date / Time Iodinated Contrast- Oral and Allergy Anaphylaxis Verified 12/18/17 12:11 IV Dye Sulfa (Sulfonamide Allergy Rash/Hives Verified 12/18/17 12:11 Antibiotics) aspirin AdvReac Internal Verified 12/18/17 12:11 Bleeding timolol [Timolol] AdvReac Nausea & Verified 12/18/17 12:11 Vomiting Review of Systems ROS Statement: Those systems with pertinent positive or pertinent negative responses have been documented in the HPI. ROS Other: All systems not noted in ROS Statement are negative. Past Medical History Past Medical History: COPD, Fibromyalgia, GERD/Reflux, GI Bleed, Hyperlipidemia , Hypertension, Osteoarthritis (OA), Pneumonia, Syncope Additional Past Medical History / Comment(s): COPD, severe with an FEV1 of 36% of predicted, crohn's, bowel obstructions, lower GI bleeds, hiatal hernia, osteoporosis, arthritis multiple joints, seasonal allergies, right-sided pneumothorax x2 History of Any Multi-Drug Resistant Organisms: None Reported Past Surgical History: Breast Surgery, Cholecystectomy, Hernia Repair, Hysterectomy, Orthopedic Surgery Additional Past Surgical History / Comment(s): Multiple bowel surgeries including total colectomy/ileostomy, ileostomy moved/repaired, R tube and R ovary removed due toectopic , total hysterectomy, leep procedure, laparoscopy for endometriosis, L breast lumpectomy-benign, r breast core bx- benign, EGD/colonoscopies. Right-sided Thora-vent placement May 09 and May 19. Eye surgery bilateral,arthroscopic knee surgery on he right due to ACL and Maniscal tear. Past Anesthesia/Blood Transfusion Reactions: No Reported Reaction Past Psychological History: No Psychological Hx Reported Smoking Status: Former smoker Past Alcohol Use History: None Reported Past Drug Use History: None Reported - Past Family History Mother Family Medical History: Cancer (Mother at the age of 83 from COPD and OA and she had skin cancer.), COPD, Hypertension Additional Family Medical History / Comment(s): Skin cancer and osteoporosis. Father Family Medical History: Cancer, CVA/TIA, Dementia, Diabetes Mellitus (Father is 91 year old, with dementia , diabetes and CVA.) Additional Family Medical History / Comment(s): Father is 90yrs old. Brother(s) Family Medical History: Cancer (Patient had 5 brothers one of them from Melanoma.) Sister(s) Family Medical History: No Reported History (Patient has one sister (my patient) .) Additional Family Medical History / Comment(s): Patient has no kids. General Exam - General Exam Comments Initial Comments: Constitutional: Awake alert patient is in moderate distress Head: Normocephalic atraumatic Eyes: no conjunctival injection No scleral icterus EOMI Neck: No JVD Supple Heart: Regular rate rhythm normal S1-S2 no murmurs Lungs: Bilateral expiratory wheezes, tachypnea, mild accessory use with breathing No rales Abdomen: Soft nondistended nontender Extremities: Non edematous DP pulses intact Radial pulses intact Neuro: A&Ox3 No focal neurologic deficits Psych: Appropriate mood and affect Limitations: no limitations Course Vital Signs 12/18/17 12/18/17 12/18/17 11:59 12:13 12:21 Temperature 99.0 F Pulse Rate 132 H 153 H 156 H Respiratory 24 Rate Blood Pressure 147/102 O2 Sat by Pulse 92 L Oximetry - Reevaluation(s) Reevaluation #1: 12/18/17 13:24 EKG showing sinus tachycardia with a rate of 128. There is no abnormal ST segment changes or T-wave inversion. QTC 420. Other intervals normal. No ectopy. Medical Decision Making - Medical Decision Making This is a 57-year-old female who presents emergency department for shortness of breath, generalized fatigue, chills, body aches. She is found to be influenza A positive. Was improved after morphine and breathing treatments area and resting comfortably at this time. The patient was Jeana hypoxic on arrival in the high 80s and low 90s. Improved on 2 L O2. Due to her COPD and influenza would keep her in the hospital. Tamiflu was started. The patient was also started empirically on Rocephin and azithromycin. Dr. Zapata accepts the admission. The patient was updated and agrees with the plan. - Lab Data Result diagrams: 12/18/17 12:20 12/18/17 12:20 Lab Results 12/18/17 12/18/17 12/18/17 Range/Units 12:20 12:20 12:20 WBC 9.3 (3.8-10.6) k/uL RBC 5.09 (3.80-5.40) m/uL Hgb 15.3 (11.4-16.0) gm/dL Hct 49.3 H (34.0-46.0) % MCV 97.0 (80.0-100.0) fL MCH 30.1 (25.0-35.0) pg MCHC 31.0 (31.0-37.0) g/dL RDW 13.9 (11.5-15.5) % Plt Count 215 (150-450) k/uL Neutrophils % 81 % Lymphocytes % 13 % Monocytes % 4 % Eosinophils % 1 % Basophils % 1 % Neutrophils # 7.6 (1.3-7.7) k/uL Lymphocytes # 1.2 (1.0-4.8) k/uL Monocytes # 0.3 (0-1.0) k/uL Eosinophils # 0.1 (0-0.7) k/uL Basophils # 0.1 (0-0.2) k/uL Hypochromasia Slight PT (9.0-12.0) sec INR (<1.2) APTT (22.0-30.0) sec Sample Site ABG pH (7.35-7.45) ABG pCO2 (35-45) mmHg ABG pO2 (83-108) mmHg ABG HCO3 (21-25) mmol/L ABG Total CO2 (19-24) mmol/L ABG O2 Saturation (94-97) % ABG Base Excess mmol/L Que Test FiO2 % Sodium 143 (137-145) mmol/L Potassium 4.0 (3.5-5.1) mmol/L Chloride 105 (98-107) mmol/L Carbon Dioxide 25 (22-30) mmol/L Anion Gap 13 mmol/L BUN 17 (7-17) mg/dL Creatinine 0.70 (0.52-1.04) mg/dL Est GFR (MDRD) Af Amer >60 (>60 ml/min/1.73 sqM) Est GFR (MDRD) Non-Af >60 (>60 ml/min/1.73 sqM) Glucose 102 H (74-99) mg/dL Plasma Lactic Acid Josep (0.7-2.0) mmol/L Calcium 9.2 (8.4-10.2) mg/dL Magnesium 1.6 (1.6-2.3) mg/dL Total Bilirubin 0.4 (0.2-1.3) mg/dL AST 29 (14-36) U/L ALT 53 H (9-52) U/L Alkaline Phosphatase 87 (38-126) U/L CK-MB (CK-2) 0.6 (0.0-2.4) ng/mL Troponin I <0.012 (0.000-0.034) ng/mL NT-Pro-B Natriuret Pep pg/mL Total Protein 7.1 (6.3-8.2) g/dL Albumin 4.2 (3.5-5.0) g/dL Influenza Type A RNA (Not Detectd) Influenza Type B (PCR) (Not Detectd) 12/18/17 12/18/17 12/18/17 Range/Units 12:20 12:20 12:20 WBC (3.8-10.6) k/uL RBC (3.80-5.40) m/uL Hgb (11.4-16.0) gm/dL Hct (34.0-46.0) % MCV (80.0-100.0) fL MCH (25.0-35.0) pg MCHC (31.0-37.0) g/dL RDW (11.5-15.5) % Plt Count (150-450) k/uL Neutrophils % % Lymphocytes % % Monocytes % % Eosinophils % % Basophils % % Neutrophils # (1.3-7.7) k/uL Lymphocytes # (1.0-4.8) k/uL Monocytes # (0-1.0) k/uL Eosinophils # (0-0.7) k/uL Basophils # (0-0.2) k/uL Hypochromasia PT (9.0-12.0) sec INR (<1.2) APTT (22.0-30.0) sec Sample Site ABG pH (7.35-7.45) ABG pCO2 (35-45) mmHg ABG pO2 (83-108) mmHg ABG HCO3 (21-25) mmol/L ABG Total CO2 (19-24) mmol/L ABG O2 Saturation (94-97) % ABG Base Excess mmol/L Que Test FiO2 % Sodium (137-145) mmol/L Potassium (3.5-5.1) mmol/L Chloride (98-107) mmol/L Carbon Dioxide (22-30) mmol/L Anion Gap mmol/L BUN (7-17) mg/dL Creatinine (0.52-1.04) mg/dL Est GFR (MDRD) Af Amer (>60 ml/min/1.73 sqM) Est GFR (MDRD) Non-Af (>60 ml/min/1.73 sqM) Glucose (74-99) mg/dL Plasma Lactic Acid Josep 1.5 (0.7-2.0) mmol/L Calcium (8.4-10.2) mg/dL Magnesium (1.6-2.3) mg/dL Total Bilirubin (0.2-1.3) mg/dL AST (14-36) U/L ALT (9-52) U/L Alkaline Phosphatase (38-126) U/L CK-MB (CK-2) (0.0-2.4) ng/mL Troponin I (0.000-0.034) ng/mL NT-Pro-B Natriuret Pep 32 pg/mL Total Protein (6.3-8.2) g/dL Albumin (3.5-5.0) g/dL Influenza Type A RNA Detected H (Not Detectd) Influenza Type B (PCR) Not Detected (Not Detectd) 12/18/17 12/18/17 Range/Units 12:20 13:14 WBC (3.8-10.6) k/uL RBC (3.80-5.40) m/uL Hgb (11.4-16.0) gm/dL Hct (34.0-46.0) % MCV (80.0-100.0) fL MCH (25.0-35.0) pg MCHC (31.0-37.0) g/dL RDW (11.5-15.5) % Plt Count (150-450) k/uL Neutrophils % % Lymphocytes % % Monocytes % % Eosinophils % % Basophils % % Neutrophils # (1.3-7.7) k/uL Lymphocytes # (1.0-4.8) k/uL Monocytes # (0-1.0) k/uL Eosinophils # (0-0.7) k/uL Basophils # (0-0.2) k/uL Hypochromasia PT 9.3 (9.0-12.0) sec INR 0.9 (<1.2) APTT 21.9 L (22.0-30.0) sec Sample Site RRA ABG pH 7.40 (7.35-7.45) ABG pCO2 33 L (35-45) mmHg ABG pO2 80 L (83-108) mmHg ABG HCO3 21 (21-25) mmol/L ABG Total CO2 22 (19-24) mmol/L ABG O2 Saturation 96.8 (94-97) % ABG Base Excess -4.2 mmol/L Que Test Yes FiO2 32 % Sodium (137-145) mmol/L Potassium (3.5-5.1) mmol/L Chloride (98-107) mmol/L Carbon Dioxide (22-30) mmol/L Anion Gap mmol/L BUN (7-17) mg/dL Creatinine (0.52-1.04) mg/dL Est GFR (MDRD) Af Amer (>60 ml/min/1.73 sqM) Est GFR (MDRD) Non-Af (>60 ml/min/1.73 sqM) Glucose (74-99) mg/dL Plasma Lactic Acid Josep (0.7-2.0) mmol/L Calcium (8.4-10.2) mg/dL Magnesium (1.6-2.3) mg/dL Total Bilirubin (0.2-1.3) mg/dL AST (14-36) U/L ALT (9-52) U/L Alkaline Phosphatase (38-126) U/L CK-MB (CK-2) (0.0-2.4) ng/mL Troponin I (0.000-0.034) ng/mL NT-Pro-B Natriuret Pep pg/mL Total Protein (6.3-8.2) g/dL Albumin (3.5-5.0) g/dL Influenza Type A RNA (Not Detectd) Influenza Type B (PCR) (Not Detectd) Disposition Clinical Impression: Influenza, COPD exacerbation Disposition: ADMITTED IP TO THIS HOSP Condition: Stable
[2017-12-18 13:01] LABS: Partial Thromboplastin Time 21.9 sec (22.0-30.0)
[2017-12-18 13:04] LABS: INR 0.9 (<1.2); Prothrombin Time 9.3 sec (9.0-12.0)
--- NOTE | 2017-12-18 13:12 | XR ---
EXAMINATION TYPE: XR chest 2V DATE OF EXAM: 12/18/2017 COMPARISON: 12/10/2017 HISTORY: 57-year-old female with cough and shortness of breath TECHNIQUE: PA and lateral views FINDINGS: Heart normal size. Aorta and pulmonary vasculature within normal limits. Hyperinflation with relative upper lung lucencies. Focal density left upper lobe is unchanged from 12/10/2017 and appears somewhat less prominent as compared to the 05/22/2017 radiograph. No new consolidation or pleural effusion. IMPRESSION: 1. Bullous emphysema. No acute change. 2. Focal left upper lobe density is redemonstrated. As this appears slightly less pronounced as jeff red to 05/22/2017, a neoplastic etiology is less likely. However, this possibility is not entirely exc luded at this time. Nonemergent follow-up CT is recommended to ensure stability or resolution from CT.
[2017-12-18] MEDS ORDERED: OSELTAMIVIR 75 MG CAP PO SCH (13:15)
[2017-12-18] MEDS ORDERED: AZITHROMYCIN 500 MG in SODIUM CHLORIDE 0.9% 250 ML IVPB STA (13:15)
[2017-12-18] MEDS ORDERED: cefTRIAXone IN SWFI 1,000 MG/10 ML SYRINGE IVP STA (13:15)
[2017-12-18 13:19] LABS: ABG Base Excess -4.2 mmol/L; ABG HCO3 21 mmol/L (21-25); ABG Oxygen Saturation 96.8 % (94-97); ABG PCO2 33 mmHg (35-45); ABG PO2 80 mmHg (83-108); ABG TCO2 22 mmol/L (19-24)
[2017-12-18 13:19] LABS: Creatine Kinase MB 0.6 ng/mL (0.0-2.4); Troponin I <0.012 ng/mL (0.000-0.034)
[2017-12-18] MEDS ORDERED: ONDANSETRON 4 MG/2 ML VIAL IVP STA (15:26)
[2017-12-18] MEDS: HYDROcodone/APAP 10-325MG 1 EACH TAB PO PRN ×2 (15:32→21:44)
[2017-12-18] MEDS ORDERED: IPRATROPIUM 0.5 MG/2.5 ML NEBU INHALATION SCH (16:00)
[2017-12-18] MEDS ORDERED: ALBUTEROL NEB (CONC) 2.5 MG/0.5 ML INHALATION SCH (16:00)
[2017-12-18] MEDS ORDERED: ATENOLOL 25 MG TAB PO STA (16:20)
[2017-12-18] MEDS ORDERED: busPIRone HCl 10 MG TAB PO STA (16:20)
[2017-12-18] MEDS: ALPRAZolam 0.25 MG TAB PO PRN (16:38)
[2017-12-18] MEDS: INSULIN ASPART 100 UNIT/ML 1 ML 10 ML VIAL SQ SCH ×2 (17:14→21:13)
[2017-12-18 17:16] LABS: Glucose,Whole Blood 120 mg/dL (75-99)
[2017-12-18] MEDS: CALCIUM CARB-VIT D 500MG-200UN 1 EACH TAB PO SCH (17:17)
[2017-12-18] MEDS: GABAPENTIN 300 MG CAP PO SCH ×2 (17:17→21:13)
[2017-12-18] MEDS: methylPREDNISolone SOD SUCCI 125 MG/2 ML VIAL IV SCH ×2 (17:18→23:55)
[2017-12-18] MEDS ORDERED: ACLIDINIUM BROMIDE 400 MCG INHALATION SCH (20:00)
[2017-12-18] MEDS: IPRATROPIUM-ALBUTEROL 3 ML NEB INHALATION SCH (20:15)
[2017-12-18] MEDS: busPIRone HCl 10 MG TAB PO SCH (20:30)
[2017-12-18] MEDS: MERCAPTOPURINE 50 MG TAB PO SCH (20:30)
[2017-12-18] MEDS: LATANOPROST 0.005% OPHTH DROPS 2.5 ML BTL BOTH EYES SCH (20:30)
[2017-12-18] MEDS: MELATONIN 3 MG TABLET PO SCH (20:30)
[2017-12-18 21:07] LABS: Glucose,Whole Blood 143 mg/dL (75-99)
[2017-12-18] MEDS: ONDANSETRON 4 MG/2 ML VIAL IVP PRN (21:18)
[2017-12-18] MEDS: OSELTAMIVIR 75 MG CAP PO SCH (23:56)
[2017-12-19] MEDS: ALPRAZolam 0.25 MG TAB PO PRN ×3 (00:04→18:15)
[2017-12-19] MEDS: HYDROcodone/APAP 10-325MG 1 EACH TAB PO PRN ×3 (02:59→16:25)
[2017-12-19] MEDS: IPRATROPIUM-ALBUTEROL 3 ML NEB INHALATION SCH ×5 (03:41→20:16)
[2017-12-19] MEDS: SYMBICORT 80-4.5 MCG INHALER INHALATION SCH ×3 (03:41→20:16)
[2017-12-19 05:10] LABS: Hemoglobin A1C 5.6 % (4.0-6.0)
[2017-12-19] MEDS: methylPREDNISolone SOD SUCCI 125 MG/2 ML VIAL IV SCH ×3 (06:03→20:06)
[2017-12-19 07:27] LABS: Glucose,Whole Blood 142 mg/dL (75-99)
[2017-12-19] MEDS: CALCIUM CARB-VIT D 500MG-200UN 1 EACH TAB PO SCH ×2 (08:20→18:27)
[2017-12-19] MEDS: INSULIN ASPART 100 UNIT/ML 1 ML 10 ML VIAL SQ SCH ×4 (08:20→21:08)
[2017-12-19] MEDS: GABAPENTIN 300 MG CAP PO SCH ×3 (09:16→21:05)
[2017-12-19] MEDS: MAGNESIUM OXIDE 400 MG TAB PO SCH (09:16)
[2017-12-19] MEDS: busPIRone HCl 10 MG TAB PO SCH ×2 (09:16→21:05)
[2017-12-19] MEDS: ATENOLOL 25 MG TAB PO SCH (09:17)
[2017-12-19] MEDS: MERCAPTOPURINE 50 MG TAB PO SCH ×2 (09:17→21:04)
[2017-12-19] MEDS: SODIUM CHLORIDE 0.9% 1,000 ML IV SCH ×2 (09:26→20:08)
[2017-12-19] MEDS ORDERED: RX INFO: IV CONTRAST WAS GIVEN 1 EACH MISC MISCELLANE PRN (11:07)
[2017-12-19] MEDS ORDERED: FAMOTIDINE 20 MG/2 ML VIAL IV ONE (11:09)
[2017-12-19] MEDS ORDERED: diphenhydrAMINE 50 MG/ML 1 ML VIAL IVP ONE (11:09)
[2017-12-19] MEDS: FAMOTIDINE 20 MG TAB PO SCH (11:45)
[2017-12-19 11:48] LABS: Glucose,Whole Blood 204 mg/dL (75-99)
[2017-12-19] MEDS: VITAMIN E (DL,TOCOPHERYL ACET) 400 UNIT CAP PO SCH (12:54)
[2017-12-19] MEDS: MULTIVITAMINS, THERA 1 EACH TAB PO SCH (12:54)
[2017-12-19] MEDS: CHOLECALCIFEROL 1,000 UNIT TAB PO SCH (12:54)
[2017-12-19] MEDS: OSELTAMIVIR 75 MG CAP PO SCH (12:54)
--- NOTE | 2017-12-19 13:14 | P.HPIM ---
History of Present Illness H&P Date: 12/19/17 Chief Complaint: Difficulty breathing This is a 57-year-old female patient of Dr. James with past medical history of severe COPD, pneumothorax requiring chest tubes and Thoravent placement, fibromyalgia, Crohn's disease and ulcerative colitis with total colectomy and ileostomy placement with multiple surgical interventions and multiple stoma revisions with adhesions over the years. She is on opium tincture for chronic diarrhea. Patient was recently admitted this month for partial small bowel obstruction resolved on conservative management and was discharged on December 11. Patient states she has not been smoking around secondhand smoke since her discharge. She denies any cough. She states she has had increased shortness of breath when she normally can walk to the bathroom or the living room she could only make it to the doorway. She has been taking care of her father who was diagnosed with influenza on Monday. She follows normally with Dr. Mistry and is scheduled for CAT scan of the chest next month regarding a mass in the left upper lobe that is being followed. Patient came into [facility] emergency center for evaluation. She was afebrile but had tachycardia. Pulse ox was 92% on room air. White count was normal. Chest x-ray shows bullous emphysema. No acute change. Focal left upper lobe density is redemonstrated. Slightly less pronounced from April x -ray. A neoplastic etiology is less likely but cannot be entirely excluded. Patient was tested for influenza and was positive for type A. patient was started on Tamiflu, Solu-Medrol and admitted to the floor. Consult added for pulmonary medicine. CT of the chest ordered and patient premedicated for iodine ALLERGY. Review of Systems All systems: negative Constitutional: Reports fatigue, Reports lethargy, Reports malaise, Reports poor appetite, Reports weakness, Denies chills, Denies fever Eyes: denies blurred vision, denies pain Ears, nose, mouth and throat: Denies dental pain, Denies headache, Denies mouth pain, Denies sore throat Cardiovascular: Reports decreased exercise tolerance, Reports dyspnea on exertion, Reports shortness of breath, Denies chest pain, Denies edema, Denies leg edema, Denies lightheadedness, Denies syncope Respiratory: Reports dyspnea, Reports wheezing, Denies cough, Denies cough with sputum, Denies excessive sputum, Denies hemoptysis, Denies home oxygen Gastrointestinal: Denies abdominal pain, Denies diarrhea, Denies nausea, Denies vomiting Genitourinary: Denies dysuria, Denies hematuria Musculoskeletal: Denies myalgias Integumentary: Denies pruritus, Denies rash Neurological: Denies numbness, Denies weakness Psychiatric: Denies anxiety, Denies depression Endocrine: Denies fatigue, Denies weight change Past Medical History Past Medical History: COPD, Fibromyalgia, GERD/Reflux, GI Bleed, Hyperlipidemia , Hypertension, Osteoarthritis (OA), Pneumonia, Syncope Additional Past Medical History / Comment(s): COPD, crohn's, bowel obstructions , lower GI bleeds, hiatal hernia, osteoporosis, arthritis multiple joints, seasonal allergies, right-sided pneumothorax x2 History of Any Multi-Drug Resistant Organisms: None Reported Past Surgical History: Breast Surgery, Cholecystectomy, Hernia Repair, Hysterectomy, Orthopedic Surgery Additional Past Surgical History / Comment(s): Multiple bowel surgeries including total colectomy/ileostomy, ileostomy moved/repaired, R tube and R ovary removed due toectopic , total hysterectomy, leep procedure, laparoscopy for endometriosis, L breast lumpectomy-benign, r breast core bx- benign, EGD/colonoscopies. Right-sided Thora-vent placement May 09 and May 19. Eye surgery bilateral,arthroscopic knee surgery on he right due to ACL and Maniscal tear. Past Anesthesia/Blood Transfusion Reactions: No Reported Reaction Smoking Status: Former smoker Additional Past Alcohol Use History / Comment(s): Patient is to smoke 1 pack per day since she was 17 and smoked for 30 years and quit in April 2017. - Past Family History Mother Family Medical History: Cancer, COPD, Hypertension Additional Family Medical History / Comment(s): Mother at age 83 from COPD and osteoarthritis and had skin cancer. Father Family Medical History: Cancer, CVA/TIA, Dementia, Diabetes Mellitus Additional Family Medical History / Comment(s): Father is 90yrs old. Brother(s) Family Medical History: Cancer Additional Family Medical History / Comment(s): Patient had 5 brothers and one of them from melanoma. Sister(s) Family Medical History: No Reported History Additional Family Medical History / Comment(s): Patient has one sister. Patient has no kids. Medications and Allergies Home Medications Medication Instructions Recorded Confirmed Type Aclidinium [place] [Tudorza 400 mcg INHALATION RT-BID 06/21/14 12/18/17 History Pressair] Adalimumab [Humira Pen] 40 mg SQ FR 06/21/14 12/18/17 History Calcium Carb-Vit D 500Mg-200Un 1 tab PO BID 04/27/16 12/18/17 History [Oscal 500+D] Fluticasone/Vilanterol [Breo 1 puff INHALATION RT-HS 04/27/16 12/18/17 History Ellipta 100-25 Mcg Inhaler] Multivitamins, Thera [Multivitamin 1 tab PO DAILY 04/27/16 12/18/17 History (formulary)] Opium Tincture 2 ml PO QID 04/27/16 12/18/17 History Mercaptopurine [Purinethol] 50 mg PO BID 02/22/17 12/18/17 History Albuterol Sulfate [Proair Hfa] 2 puff INHALATION RT-Q4H PRN 05/09/17 12/18/17 History Cholecalciferol [Vitamin D3] 3,000 unit PO DAILY 05/09/17 12/18/17 History busPIRone HCl [Buspar] 10 mg PO BID 05/09/17 12/18/17 History Melatonin 3 mg PO HS tab 05/11/17 12/18/17 Rx Atenolol 25 mg PO DAILY 05/20/17 12/18/17 History Latanoprost Ophth [Xalatan 0.005%] 1 drop BOTH EYES HS 05/21/17 12/18/17 History Albuterol Nebulized [Ventolin 2.5 mg INHALATION RT-QID PRN 06/24/17 12/18/17 History Nebulized] HYDROcodone/APAP 10-325MG [[place] 1 tab PO Q4HR PRN 06/24/17 12/18/17 History 10-325] Nicotine Polacrilex [Nicotine Gum] 4 mg BUCCAL TID PRN 06/24/17 12/18/17 History Gabapentin [Neurontin] 300 mg PO TID 12/08/17 12/18/17 History Magnesium 200 mg PO DAILY 12/08/17 12/18/17 History Vitamin E 100 unit PO DAILY 12/08/17 12/18/17 History Allergies Allergy/AdvReac Type Severity Reaction Status Date / Time Iodinated Contrast- Oral and Allergy Anaphylaxis Verified 12/18/17 12:11 IV Dye Sulfa (Sulfonamide Allergy Rash/Hives Verified 12/18/17 12:11 Antibiotics) aspirin AdvReac Internal Verified 12/18/17 12:11 Bleeding timolol [Timolol] AdvReac Nausea & Verified 12/18/17 12:11 Vomiting Physical Exam Vitals: Vital Signs Temp Pulse Pulse Resp BP BP Pulse Ox 12/19/17 09:14 114 H 12/19/17 09:02 120 H 12/19/17 07:44 97.0 F L 73 20 114/73 98 12/19/17 00:00 90 18 12/18/17 23:00 97.8 F 90 18 105/76 95 12/18/17 22:04 95 16 12/18/17 20:29 120 H 12/18/17 20:24 95 16 104/60 100 12/18/17 20:17 118 H 12/18/17 17:22 114 H 93 L 12/18/17 15:58 97.9 F 132 H 18 107/78 98 12/18/17 15:08 98.4 F 123 H 24 116/82 96 12/18/17 14:00 98.4 F 119 H 20 110/70 97 12/18/17 12:21 156 H 12/18/17 12:13 153 H 12/18/17 11:59 99.0 F 132 H 24 147/102 92 L Intake and Output 12/18/17 12/19/17 12/19/17 22:59 06:59 14:59 Intake Total 200 Balance 200 Intake: Oral 200 Other: Voiding Method Toilet Toilet # Voids 1 1 General appearance: no acute distress - EENT Eyes: anicteric sclerae, EOMI, PERRLA, dentition normal, no ptosis, no scleral icterus, normal appearance ENT: hearing grossly normal, NA/AT, normal oropharynx, no thrush Ears: bilateral: normal - Neck Neck: no lymphadenopathy, normal ROM, no rigidity, no stridor, no thyromegaly Carotids: bilateral: upstroke normal Thyroid: bilateral: normal size - Respiratory Respiratory: bilateral: diminished with minimal airflow, negative: dullness, rales, rhonchi, wheezing, prolonged expiration, prolonged inspiration - Cardiovascular Rhythm: regular Heart sounds: normal: S1, S2 Abnormal Heart Sounds: no systolic murmur, no S3 Gallop, no S4 Gallop, no click - Gastrointestinal General gastrointestinal: normal bowel sounds, soft, no splenomegaly, no tenderness, no umbilical hernia (ileostomy.) - Integumentary Integumentary: normal, normal turgor - Neurologic Neurologic: CNII-XII intact - Musculoskeletal Musculoskeletal: gait normal, strength equal bilaterally - Psychiatric Psychiatric: A&O x's 3, appropriate affect, intact judgment & insight Results CBC & Chem 7: 12/18/17 12:20 12/18/17 12:20 Labs: Abnormal Lab Results - Last 24 Hours (Table) 12/18/17 12/18/17 12/18/17 Range/Units 12:20 12:20 12:20 Hct 49.3 H (34.0-46.0) % APTT (22.0-30.0) sec ABG pCO2 (35-45) mmHg ABG pO2 (83-108) mmHg Glucose 102 H (74-99) mg/dL POC Glucose (mg/dL) (75-99) mg/dL ALT 53 H (9-52) U/L Influenza Type A RNA Detected H (Not Detectd) 12/18/17 12/18/17 12/18/17 Range/Units 12:20 13:14 17:13 Hct (34.0-46.0) % APTT 21.9 L (22.0-30.0) sec ABG pCO2 33 L (35-45) mmHg ABG pO2 80 L (83-108) mmHg Glucose (74-99) mg/dL POC Glucose (mg/dL) 120 H (75-99) mg/dL ALT (9-52) U/L Influenza Type A RNA (Not Detectd) 12/18/17 12/19/17 Range/Units 20:53 07:10 Hct (34.0-46.0) % APTT (22.0-30.0) sec ABG pCO2 (35-45) mmHg ABG pO2 (83-108) mmHg Glucose (74-99) mg/dL POC Glucose (mg/dL) 143 H 142 H (75-99) mg/dL ALT (9-52) U/L Influenza Type A RNA (Not Detectd) Thrombosis Risk Factor Assmnt - DVT/VTE Prophylaxis DVT/VTE Prophylaxis: Pharmacologic Prophylaxis ordered - Choose All That Apply Any of the Below Risk Factors Present?: Yes Each Factor Represents 1 point: Abnormal pulmonary function (COPD), Age 41-60 years Other Risk Factors: No Other congenital or acquired thrombophilia - If yes, enter type in comment: No Thrombosis Risk Factor Assessment Total Risk Factor Score: 2 Thrombosis Risk Factor Assessment Level: Low Risk Assessment and Plan Plan: 1. Influenza A with acute COPD exacerbation. Continue Tamiflu, Solu-Medrol, IV fluids. Consult pulmonary medicine. [place] or Dilaudid for pain. 2. Recent admission for PSBO resolved with conservative treatment with history of multiple abdominal surgeries due to IBD(crohn and Ulcerative colitis) with multiple adhesions. 3. IBD. continue to hold off Humira and MP. 4. Known history of left upper lobe density for which she follows with Dr. Mistry and is scheduled for CAT scan of the chest next month. CT of the chest with contrast will be ordered now and premedicated for iodine ALLERGY. 5. Hypertension and hypertensive cardiovascular disease. will continue with Atenolol 25 mg orally daily. 6. Severe COPD with FEV1 36%. will continue with Neb Rx and Symbicort. 7. Fibromyalgia. we will continue with Gabapentin 300 mg po tid. 8. 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 we will continue with opium tincture 2 ml orally 4 times per day. 9. H/O right sided Pneumothorax. post Thoravents. 10. GERD with hiatal hernia. we will continue with PPI. 11. Osteoporosis. stable. 12. DVT prophylaxis. we will continue with heparin 5000 units sc q 8 h 13. GI prophylaxis. we will continue with PPI. Patient will be admitted to the hospital for a minimum of 2 night stay. Discharge plan: Return home Impression and plan of care have been directed as dictated by the signing physician. Gaby Rothman nurse practitioner acting as scribe for signing physician.
--- NOTE | 2017-12-19 14:00 | CT ---
EXAMINATION TYPE: CT chest w con DATE OF EXAM: 12/19/2017 COMPARISON: 05/20/2017 HISTORY: Mass upper lobe CT DLP: 436 mGycm. Automated Exposure Control for Dose Reduction was Utilized. TECHNIQUE: CT scan of the thorax is performed following with IV Contrast, patient injected with 100 mL of Omnipaque 300. FINDINGS: LUNGS: Extensive bullous emphysematous changes are seen throughout the lungs with a at least 11 cm ri ght apical bulla posteriorly and multiple other bulla along the inferior posterior to the globes and laterally along the left lung with small septa noted excluding pneumothorax. The previously seen upper lobe consolidations bilaterally are improved from the prior exam of 05/20/20 17 with the right smaller measuring approximately 1.9 cm (previously measured 3 cm) and the left mary uring approximately 2.1 cm x 3.3 cm (this previously measured 5 x 3 cm). Considering their improvemen t these are more likely to represent scarring and resolving infectious etiology or inflammatory etiol ogy rather than neoplasm although neoplasm remains in the differential. No new pulmonary masses are i dentified. Right middle lobe opacity has nearly resolved with a residual 4 mm nodule remaining on ser ies 4 image 38. MEDIASTINUM: There are no greater than 1 cm hilar or mediastinal lymph nodes. No pericardial effusi on is seen. OTHER: Cholecystectomy clips are noted within the gallbladder fossa. Multiple old right lateral heale d rib fractures are noted. IMPRESSION: 1. Marked improvement in the upper lobe bilateral of a and right middle lobe opacity therefore findin gs are favored to represent scarring and improving infectious/inflammatory etiology rather than neopl asm although continued surveillance is recommended in this high-risk patient as underlying neoplasm r emains possible but less likely. Six-month follow-up CT could be performed. 2. Extensive background bullous emphysematous changes.
[2017-12-19] MEDS: HYDROmorphone 0.5 MG/0.5 ML SYRINGE IVP PRN ×2 (14:11→20:05)
[2017-12-19] MEDS: HEPARIN SODIUM,PORCINE 5,000 UNIT/ML 1 ML VIAL SQ SCH (16:25)
[2017-12-19 17:08] LABS: Glucose,Whole Blood 142 mg/dL (75-99)
[2017-12-19] MEDS: MELATONIN 3 MG TABLET PO SCH (21:05)
[2017-12-19 21:17] LABS: Glucose,Whole Blood 114 mg/dL (75-99)
[2017-12-19] MEDS: LATANOPROST 0.005% OPHTH DROPS 2.5 ML BTL BOTH EYES SCH (21:57)
[2017-12-20] MEDS: methylPREDNISolone SOD SUCCI 125 MG/2 ML VIAL IV SCH ×4 (00:03→21:05)
[2017-12-20] MEDS: OSELTAMIVIR 75 MG CAP PO SCH ×2 (00:04→11:32)
[2017-12-20] MEDS: HEPARIN SODIUM,PORCINE 5,000 UNIT/ML 1 ML VIAL SQ SCH ×3 (00:04→17:03)
[2017-12-20] MEDS: HYDROcodone/APAP 10-325MG 1 EACH TAB PO PRN ×4 (00:05→18:59)
[2017-12-20] MEDS: ALPRAZolam 0.25 MG TAB PO PRN ×2 (00:06→07:41)
[2017-12-20] MEDS: HYDROmorphone 0.5 MG/0.5 ML SYRINGE IVP PRN (02:22)
[2017-12-20] MEDS: ONDANSETRON 4 MG/2 ML VIAL IVP PRN ×3 (02:23→21:23)
[2017-12-20] MEDS: SODIUM CHLORIDE 0.9% 1,000 ML IV SCH (06:27)
[2017-12-20 07:36] LABS: Glucose,Whole Blood 142 mg/dL (75-99)
[2017-12-20] MEDS: INSULIN ASPART 100 UNIT/ML 1 ML 10 ML VIAL SQ SCH ×4 (07:41→21:11)
[2017-12-20] MEDS: CALCIUM CARB-VIT D 500MG-200UN 1 EACH TAB PO SCH ×2 (09:12→18:55)
[2017-12-20] MEDS: ATENOLOL 25 MG TAB PO SCH (09:12)
[2017-12-20] MEDS: busPIRone HCl 10 MG TAB PO SCH ×2 (09:12→21:06)
[2017-12-20] MEDS: MAGNESIUM OXIDE 400 MG TAB PO SCH (09:13)
[2017-12-20] MEDS: MERCAPTOPURINE 50 MG TAB PO SCH ×2 (09:13→21:06)
[2017-12-20] MEDS: GABAPENTIN 300 MG CAP PO SCH ×3 (09:13→22:34)
[2017-12-20] MEDS: FAMOTIDINE 20 MG TAB PO SCH (09:13)
[2017-12-20] MEDS: guaiFENesin 600 MG TABLET.ER PO SCH ×2 (09:27→21:06)
[2017-12-20] MEDS: IPRATROPIUM-ALBUTEROL 3 ML NEB INHALATION SCH ×4 (09:55→18:47)
[2017-12-20] MEDS: SYMBICORT 80-4.5 MCG INHALER INHALATION SCH ×2 (10:53→18:47)
--- NOTE | 2017-12-20 11:20 | P.CNPUL ---
History of Present Illness Consult date: 12/20/17 Reason for consult: COPD Chief complaint: Shortness of breath cough and fever History of present illness: This is a 57-year-old female, known to our service, usually sees Dr. Mistry for severe end-stage COPD, FEV1 is in the range of 36%. However the patient is not O2 dependent, and not prednisone dependent. She is also known to have history of multiple comorbidities including recurrent episodes of spontaneous pneumothoraces requiring for thoravent placement, history of Crohn's disease, fibromyalgia, recent history of partial small bowel obstruction treated medically did not require any surgical intervention, history of multiple abdominal surgeries, previous smoking history however she quit in 2017. Patient is also known to have history of fibromyalgia, GI bleeding, hypertension, and osteoarthritis. Patient presented this time with a few days' history of cough, cough is productive with whitish phlegm, fever, chills, shortness of breath, and she was recently exposed to her father who had influenza patient was seen in the ER, workup was positive for influenza A, CT of the chest was done and it showed chronic abnormalities in the right upper lobe and left upper lobe, seems to be better than previous findings on previous CT of the chest, and the patient is still scheduled to see Dr. Mistry for follow-up on these nodularities in upper lobes bilaterally. I believe she was supposed to have a repeat CT of the chest next month, but considering that she just had a CT of the chest, the scheduled CT of the chest could be delayed at least another 4-6 months. Since admission the patient was placed on bronchodilators, steroids, Tamiflu, but no antibiotics. Review of Systems 14 point review of systems were obtained, please refer to pertinent positives and negatives as per HPI otherwise remaining systems are negative Past Medical History Past Medical History: COPD, Fibromyalgia, GERD/Reflux, GI Bleed, Hyperlipidemia , Hypertension, Osteoarthritis (OA), Pneumonia, Syncope Additional Past Medical History / Comment(s): COPD, crohn's, bowel obstructions , lower GI bleeds, hiatal hernia, osteoporosis, arthritis multiple joints, seasonal allergies, right-sided pneumothorax x2 History of Any Multi-Drug Resistant Organisms: None Reported Past Surgical History: Breast Surgery, Cholecystectomy, Hernia Repair, Hysterectomy, Orthopedic Surgery Additional Past Surgical History / Comment(s): Multiple bowel surgeries including total colectomy/ileostomy, ileostomy moved/repaired, R tube and R ovary removed due toectopic , total hysterectomy, leep procedure, laparoscopy for endometriosis, L breast lumpectomy-benign, r breast core bx- benign, EGD/colonoscopies. Right-sided Thora-vent placement May 09 and May 19. Eye surgery bilateral,arthroscopic knee surgery on he right due to ACL and Maniscal tear. Past Anesthesia/Blood Transfusion Reactions: No Reported Reaction Smoking Status: Former smoker Additional Past Alcohol Use History / Comment(s): Patient is to smoke 1 pack per day since she was 17 and smoked for 30 years and quit in April 2017. - Past Family History Mother Family Medical History: Cancer, COPD, Hypertension Additional Family Medical History / Comment(s): Mother at age 83 from COPD and osteoarthritis and had skin cancer. Father Family Medical History: Cancer, CVA/TIA, Dementia, Diabetes Mellitus Additional Family Medical History / Comment(s): Father is 90yrs old. Brother(s) Family Medical History: Cancer Additional Family Medical History / Comment(s): Patient had 5 brothers and one of them from melanoma. Sister(s) Family Medical History: No Reported History Additional Family Medical History / Comment(s): Patient has one sister. Patient has no kids. Medications and Allergies Home Medications Medication Instructions Recorded Confirmed Type Aclidinium [place] [Tudorza 400 mcg INHALATION RT-BID 06/21/14 12/18/17 History Pressair] Adalimumab [Humira Pen] 40 mg SQ FR 06/21/14 12/18/17 History Calcium Carb-Vit D 500Mg-200Un 1 tab PO BID 04/27/16 12/18/17 History [Oscal 500+D] Fluticasone/Vilanterol [Breo 1 puff INHALATION RT-HS 04/27/16 12/18/17 History Ellipta 100-25 Mcg Inhaler] Multivitamins, Thera [Multivitamin 1 tab PO DAILY 04/27/16 12/18/17 History (formulary)] Opium Tincture 2 ml PO QID 04/27/16 12/18/17 History Mercaptopurine [Purinethol] 50 mg PO BID 02/22/17 12/18/17 History Albuterol Sulfate [Proair Hfa] 2 puff INHALATION RT-Q4H PRN 05/09/17 12/18/17 History Cholecalciferol [Vitamin D3] 3,000 unit PO DAILY 05/09/17 12/18/17 History busPIRone HCl [Buspar] 10 mg PO BID 05/09/17 12/18/17 History Melatonin 3 mg PO HS tab 05/11/17 12/18/17 Rx Atenolol 25 mg PO DAILY 05/20/17 12/18/17 History Latanoprost Ophth [Xalatan 0.005%] 1 drop BOTH EYES HS 05/21/17 12/18/17 History Albuterol Nebulized [Ventolin 2.5 mg INHALATION RT-QID PRN 06/24/17 12/18/17 History Nebulized] HYDROcodone/APAP 10-325MG [[place] 1 tab PO Q4HR PRN 06/24/17 12/18/17 History 10-325] Nicotine Polacrilex [Nicotine Gum] 4 mg BUCCAL TID PRN 06/24/17 12/18/17 History Gabapentin [Neurontin] 300 mg PO TID 12/08/17 12/18/17 History Magnesium 200 mg PO DAILY 12/08/17 12/18/17 History Vitamin E 100 unit PO DAILY 12/08/17 12/18/17 History Allergies Allergy/AdvReac Type Severity Reaction Status Date / Time Iodinated Contrast- Oral and Allergy Anaphylaxis Verified 12/18/17 12:11 IV Dye Sulfa (Sulfonamide Allergy Rash/Hives Verified 12/18/17 12:11 Antibiotics) aspirin AdvReac Internal Verified 12/18/17 12:11 Bleeding timolol [Timolol] AdvReac Nausea & Verified 12/18/17 12:11 Vomiting Physical Exam Vitals: Vital Signs Temp Pulse Pulse Resp BP Pulse Ox 12/20/17 10:54 96 12/20/17 08:00 97 F L 96 20 128/82 94 L 12/20/17 02:00 97.6 F 99 22 118/76 95 12/20/17 00:00 102 H 20 12/19/17 21:30 97.8 F 102 H 20 116/75 95 12/19/17 20:29 100 12/19/17 20:16 92 12/19/17 18:24 105 H 93 L 12/19/17 16:33 112 H 12/19/17 16:21 108 H 02/20/18 16:05 97.9 F 95 16 111/74 92 L 12/19/17 13:31 110 H 12/19/17 13:23 108 H 12/19/17 11:34 97.9 F 86 16 94/64 94 L Intake and Output 12/19/17 12/20/17 12/20/17 22:59 06:59 14:59 Intake Total 600 Balance 600 Intake: Oral 600 Other: Voiding Method Toilet # Voids 2 1 Weight 49.895 kg Physical Exam: Revealed a 57-year-old female, in mild respiratory distress, on nasal cannula. Head: Atraumatic, normocephalic. HEENT:[Neck is supple.] [No neck masses.] [No thyromegaly.] [No JVD.] Moist mucous membranes, no stridor, no masses, throat is clear. Chest: [Extremely diminished breath sound bilaterally, no crackles, no rhonchi, no wheezes, no chest wall tenderness.] Cardiac Exam: [Normal S1 and S2, no S3 gallop, no murmur.] Abdomen: [Soft, nontender, no megaly, no rebound, no guarding, normal bowel sounds.] Extremities: [No clubbing, no edema, no cyanosis.] Neurological Exam: [No focal neurologic deficit. Psychiatric: Normal mood affect and intact mental status. Intact judgment and insight. Musculoskeletal: No gross deficit, normal gait, strength equal bilaterally.] Results - Laboratory Findings CBC and BMP: 12/18/17 12:20 12/18/17 12:20 ABG ABG pH 7.40 (7.35-7.45) 12/18/17 13:14 ABG pCO2 33 mmHg (35-45) L 12/18/17 13:14 ABG pO2 80 mmHg (83-108) L 12/18/17 13:14 ABG O2 Saturation 96.8 % (94-97) 12/18/17 13:14 PT/INR, D-dimer PT 9.3 sec (9.0-12.0) 12/18/17 12:20 INR 0.9 (<1.2) 12/18/17 12:20 Abnormal lab findings: Abnormal Labs 12/18/17 12/18/17 12/18/17 12:20 12:20 12:20 Hct 49.3 H APTT ABG pCO2 ABG pO2 Glucose 102 H POC Glucose (mg/dL) ALT 53 H Influenza Type A RNA Detected H 12/18/17 12/18/17 12/18/17 12:20 13:14 17:13 Hct APTT 21.9 L ABG pCO2 33 L ABG pO2 80 L Glucose POC Glucose (mg/dL) 120 H ALT Influenza Type A RNA 12/18/17 12/19/17 12/19/17 20:53 07:10 11:27 Hct APTT ABG pCO2 ABG pO2 Glucose POC Glucose (mg/dL) 143 H 142 H 204 H ALT Influenza Type A RNA 12/19/17 12/19/17 12/20/17 17:04 21:07 07:34 Hct APTT ABG pCO2 ABG pO2 Glucose POC Glucose (mg/dL) 142 H 114 H 142 H ALT Influenza Type A RNA - Diagnostic Findings CT scan - chest: image reviewed (Agree with reading as per the radiologist) Assessment and Plan Assessment: Impression: 1 acute influenza A 2 acute COPD exacerbation triggered by influenza A [address] of the chest, however the new CT of the chest done on this admission is reassuring, and the next computed tomography scan could be delayed at least another 4 months. 4 history of multiple comorbidities including Crohn's disease, fibromyalgia, short gut syndrome, GERD with hiatal hernia, history of osteoporosis, history of hypertension and history of multiple abdominal surgeries with previous partial small bowel obstruction. Recommendation: Agree with the present treatment plan, continue Tamiflu, continue GI and DVT prophylaxis, would consider empiric antibiotics in the form of Rocephin, reevaluate and hopefully discharge home in the next 24-48 hours. Time with Patient: Greater than 30
--- NOTE | 2017-12-20 11:25 | P.PN ---
Subjective Progress Note Date: 12/20/17 This is a 57-year-old female patient of Dr. James with past medical history of severe COPD, pneumothorax requiring chest tubes and Thoravent placement, fibromyalgia, Crohn's disease and ulcerative colitis with total colectomy and ileostomy placement with multiple surgical interventions and multiple stoma revisions with adhesions over the years. She is on opium tincture for chronic diarrhea. Patient was recently admitted this month for partial small bowel obstruction resolved on conservative management and was discharged on December 11. Patient states she has not been smoking around secondhand smoke since her discharge. She denies any cough. She states she has had increased shortness of breath when she normally can walk to the bathroom or the living room she could only make it to the doorway. She has been taking care of her father who was diagnosed with influenza on Monday. She follows normally with Dr. Mistry and is scheduled for CAT scan of the chest next month regarding a mass in the left upper lobe that is being followed. Patient came into [facility] emergency center for evaluation. She was afebrile but had tachycardia. Pulse ox was 92% on room air. White count was normal. Chest x-ray shows bullous emphysema. No acute change. Focal left upper lobe density is redemonstrated. Slightly less pronounced from April x -ray. A neoplastic etiology is less likely but cannot be entirely excluded. Patient was tested for influenza and was positive for type A. patient was started on Tamiflu, Solu-Medrol and admitted to the floor. Consult added for pulmonary medicine. CT of the chest ordered and patient premedicated for iodine ALLERGY. 12/20: Patient states that she had significant difficulty sleeping due to a cough that is now a little bit productive. She still feels very tight. She has been up in the chair but would like to ambulate today. She states she was off oxygen for several hours yesterday but by the afternoon she felt more winded. Sputum is a thick pale color. Sputum culture will be requested. Solu- Medrol will be decreased from 60 every 6 hours to twice daily. She is continued on isolation precautions and Tamiflu. Objective - Vital Signs Vital signs: Vital Signs Temp 97.6 F 12/20/17 02:00 Pulse 99 12/20/17 02:00 Resp 22 12/20/17 02:00 BP 118/76 12/20/17 02:00 Pulse Ox 95 12/20/17 02:00 Intake & Output 12/19/17 12/20/17 12/20/17 18:59 06:59 18:59 Intake Total 440 600 Balance 440 600 Weight 49.895 kg Intake: Oral 440 600 Other: Voiding Method Toilet # Voids 1 1 - Exam General appearance: no acute distress - EENT Eyes: anicteric sclerae, EOMI, PERRLA, dentition normal, no ptosis, no scleral icterus, normal appearance ENT: hearing grossly normal, NA/AT, normal oropharynx, no thrush Ears: bilateral: normal - Neck Neck: no lymphadenopathy, normal ROM, no rigidity, no stridor, no thyromegaly Carotids: bilateral: upstroke normal Thyroid: bilateral: normal size - Respiratory Respiratory: bilateral: diminished with minimal airflow, negative: dullness, rales, rhonchi, wheezing, prolonged expiration, prolonged inspiration - Cardiovascular Rhythm: regular Heart sounds: normal: S1, S2 Abnormal Heart Sounds: no systolic murmur, no S3 Gallop, no S4 Gallop, no click - Gastrointestinal General gastrointestinal: normal bowel sounds, soft, no splenomegaly, no tenderness, no umbilical hernia (ileostomy.) - Integumentary Integumentary: normal, normal turgor - Neurologic Neurologic: CNII-XII intact - Musculoskeletal Musculoskeletal: gait normal, strength equal bilaterally - Psychiatric Psychiatric: A&O x's 3, appropriate affect, intact judgment & insight - Labs CBC & Chem 7: 12/18/17 12:20 12/18/17 12:20 Labs: Abnormal Lab Results - Last 24 Hours (Table) 12/19/17 12/19/17 12/19/17 Range/Units 11:27 17:04 21:07 POC Glucose (mg/dL) 204 H 142 H 114 H (75-99) mg/dL 12/20/17 Range/Units 07:34 POC Glucose (mg/dL) 142 H (75-99) mg/dL Microbiology - Last 24 Hours (Table) 12/18/17 12:20 Blood Culture - Preliminary Blood No Growth after 24 hours Assessment and Plan Plan: 1. Influenza A and COPD exacerbation. Continue Tamiflu, Solu-Medrol, IV fluids. Consult pulmonary medicine. [place] or Dilaudid for pain. 2. Recent admission for PSBO resolved with conservative treatment with history of multiple abdominal surgeries due to IBD(crohn and Ulcerative colitis) with multiple adhesions. 3. IBD. continue to hold off Humira and MP. 4. Known history of left upper lobe density for which she follows with Dr. Mistry and is scheduled for CAT scan of the chest next month. CT of the chest with contrast will be ordered now and premedicated for iodine ALLERGY. 5. Hypertension and hypertensive cardiovascular disease. will continue with Atenolol 25 mg orally daily. 6. Severe COPD with FEV1 36%. will continue with Neb Rx and Symbicort. 7. Fibromyalgia. we will continue with Gabapentin 300 mg po tid. 8. 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 we will continue with opium tincture 2 ml orally 4 times per day. 9. H/O right sided Pneumothorax. post Thoravents. 10. GERD with hiatal hernia. we will continue with PPI. 11. Osteoporosis. stable. 12. DVT prophylaxis. we will continue with heparin 5000 units sc q 8 h 13. GI prophylaxis. we will continue with PPI. Discharge plan: Return home Impression and plan of care have been directed as dictated by the signing physician. Gaby Rothman nurse practitioner acting as scribe for signing physician.
[2017-12-20 11:27] LABS: Glucose,Whole Blood 116 mg/dL (75-99)
[2017-12-20] MEDS: MULTIVITAMINS, THERA 1 EACH TAB PO SCH (11:32)
[2017-12-20] MEDS: PROMETHAZ-COD 6.25-10 MG/5 ML 5 ML CUP PO PRN ×2 (11:32→21:23)
[2017-12-20] MEDS: CHOLECALCIFEROL 1,000 UNIT TAB PO SCH (11:32)
[2017-12-20] MEDS: VITAMIN E (DL,TOCOPHERYL ACET) 400 UNIT CAP PO SCH (11:33)
[2017-12-20] MEDS: cefTRIAXone IN SWFI 1,000 MG/10 ML SYRINGE IVP SCH (11:58)
[2017-12-20] MEDS: HYDROmorphone 4 MG TABLET PO PRN ×2 (17:03→22:34)
[2017-12-20 17:41] LABS: Glucose,Whole Blood 125 mg/dL (75-99)
[2017-12-20] MEDS: LATANOPROST 0.005% OPHTH DROPS 2.5 ML BTL BOTH EYES SCH (21:06)
[2017-12-20] MEDS: MELATONIN 3 MG TABLET PO SCH (21:06)
[2017-12-20 21:22] LABS: Glucose,Whole Blood 118 mg/dL (75-99)
[2017-12-21] MEDS: OSELTAMIVIR 75 MG CAP PO SCH ×2 (00:19→11:37)
[2017-12-21] MEDS: HEPARIN SODIUM,PORCINE 5,000 UNIT/ML 1 ML VIAL SQ SCH ×3 (00:19→15:49)
[2017-12-21] MEDS: HYDROcodone/APAP 10-325MG 1 EACH TAB PO PRN ×3 (00:19→21:14)
[2017-12-21] MEDS: ALPRAZolam 0.25 MG TAB PO PRN ×2 (02:44→22:37)
[2017-12-21] MEDS: HYDROmorphone 4 MG TABLET PO PRN ×3 (04:33→16:49)
[2017-12-21 08:09] LABS: Glucose,Whole Blood 135 mg/dL (75-99)
[2017-12-21] MEDS: INSULIN ASPART 100 UNIT/ML 1 ML 10 ML VIAL SQ SCH ×4 (08:09→21:05)
[2017-12-21] MEDS: methylPREDNISolone SOD SUCCI 125 MG/2 ML VIAL IV SCH (08:14)
[2017-12-21] MEDS: MERCAPTOPURINE 50 MG TAB PO SCH ×2 (08:15→21:06)
[2017-12-21] MEDS: cefTRIAXone IN SWFI 1,000 MG/10 ML SYRINGE IVP SCH (08:45)
[2017-12-21] MEDS: busPIRone HCl 10 MG TAB PO SCH ×2 (09:00→21:04)
[2017-12-21] MEDS: guaiFENesin 600 MG TABLET.ER PO SCH ×2 (09:00→21:04)
[2017-12-21] MEDS: GABAPENTIN 300 MG CAP PO SCH ×3 (09:00→22:37)
[2017-12-21] MEDS: SYMBICORT 80-4.5 MCG INHALER INHALATION SCH ×2 (09:01→19:13)
[2017-12-21] MEDS: IPRATROPIUM-ALBUTEROL 3 ML NEB INHALATION SCH ×4 (09:02→19:13)
[2017-12-21] MEDS: ONDANSETRON 4 MG/2 ML VIAL IVP PRN (10:31)
[2017-12-21] MEDS: NYSTATIN 100,000 UNIT/ML SUSP 500,000 UNIT/5 ML CUP PO SCH ×2 (11:36→21:02)
[2017-12-21] MEDS: VITAMIN E (DL,TOCOPHERYL ACET) 400 UNIT CAP PO SCH (11:36)
[2017-12-21] MEDS: CHOLECALCIFEROL 1,000 UNIT TAB PO SCH (11:37)
[2017-12-21] MEDS: MULTIVITAMINS, THERA 1 EACH TAB PO SCH (11:37)
[2017-12-21 12:16] LABS: Glucose,Whole Blood 137 mg/dL (75-99)
--- NOTE | 2017-12-21 12:47 | P.PN ---
Subjective Progress Note Date: 12/21/17 This is a 57-year-old female patient of Dr. James with past medical history of severe COPD, pneumothorax requiring chest tubes and Thoravent placement, fibromyalgia, Crohn's disease and ulcerative colitis with total colectomy and ileostomy placement with multiple surgical interventions and multiple stoma revisions with adhesions over the years. She is on opium tincture for chronic diarrhea. Patient was recently admitted this month for partial small bowel obstruction resolved on conservative management and was discharged on December 11. Patient states she has not been smoking around secondhand smoke since her discharge. She denies any cough. She states she has had increased shortness of breath when she normally can walk to the bathroom or the living room she could only make it to the doorway. She has been taking care of her father who was diagnosed with influenza on Monday. She follows normally with Dr. Mistry and is scheduled for CAT scan of the chest next month regarding a mass in the left upper lobe that is being followed. Patient came into [facility] emergency center for evaluation. She was afebrile but had tachycardia. Pulse ox was 92% on room air. White count was normal. Chest x-ray shows bullous emphysema. No acute change. Focal left upper lobe density is redemonstrated. Slightly less pronounced from April x -ray. A neoplastic etiology is less likely but cannot be entirely excluded. Patient was tested for influenza and was positive for type A. patient was started on Tamiflu, Solu-Medrol and admitted to the floor. Consult added for pulmonary medicine. CT of the chest ordered and patient premedicated for iodine ALLERGY. 12/20: Patient states that she had significant difficulty sleeping due to a cough that is now a little bit productive. She still feels very tight. She has been up in the chair but would like to ambulate today. She states she was off oxygen for several hours yesterday but by the afternoon she felt more winded. Sputum is a thick pale color. Sputum culture will be requested. Solu- Medrol will be decreased from 60 every 6 hours to twice daily. She is continued on isolation precautions and Tamiflu. 12/21: CAT scan of the chest revealed marked improvement in the upper lobe and right middle lobe obesity therefore findings are favored to represent scarring and improving infectious or inflammatory etiology rather than neoplasm although continued surveillance is recommended. Results were related to the patient. She is currently on Solu-Medrol 60 every 12 hours change to prednisone today by Dr. Cintron. Pulse ox is 96% on 2 L. Patient has been afebrile. Patient states that she feels tired and she has been sitting up in a chair but now walking in the hallway. Her brother is staying with her when she gets discharge. Dr. Morales has cleared her for discharge the patient is requesting to stay until tomorrow. Anticipate discharge home tomorrow. Objective - Vital Signs Vital signs: Vital Signs Temp 97.3 F L 12/21/17 07:00 Pulse 96 12/21/17 09:12 Resp 20 12/21/17 08:00 BP 138/77 12/21/17 07:00 Pulse Ox 96 12/21/17 07:00 Intake & Output 12/20/17 12/21/17 12/21/17 18:59 06:59 18:59 Intake Total 720 480 Balance 720 480 Intake: Oral 720 480 Other: # Voids 2 4 - Exam General appearance: no acute distress - EENT Eyes: anicteric sclerae, EOMI, PERRLA, dentition normal, no ptosis, no scleral icterus, normal appearance ENT: hearing grossly normal, NA/AT, normal oropharynx, no thrush Ears: bilateral: normal - Neck Neck: no lymphadenopathy, normal ROM, no rigidity, no stridor, no thyromegaly Carotids: bilateral: upstroke normal Thyroid: bilateral: normal size - Respiratory Respiratory: bilateral: diminished with minimal airflow, negative: dullness, rales, rhonchi, wheezing, prolonged expiration, prolonged inspiration - Cardiovascular Rhythm: regular Heart sounds: normal: S1, S2 Abnormal Heart Sounds: no systolic murmur, no S3 Gallop, no S4 Gallop, no click - Gastrointestinal General gastrointestinal: normal bowel sounds, soft, no splenomegaly, no tenderness, no umbilical hernia (ileostomy.) - Integumentary Integumentary: normal, normal turgor - Neurologic Neurologic: CNII-XII intact - Musculoskeletal Musculoskeletal: gait normal, strength equal bilaterally - Psychiatric Psychiatric: A&O x's 3, appropriate affect, intact judgment & insight - Labs CBC & Chem 7: 12/18/17 12:20 12/18/17 12:20 Labs: Abnormal Lab Results - Last 24 Hours (Table) 12/20/17 12/20/17 12/20/17 Range/Units 11:24 17:38 21:09 POC Glucose (mg/dL) 116 H 125 H 118 H (75-99) mg/dL 12/21/17 Range/Units 07:28 POC Glucose (mg/dL) 135 H (75-99) mg/dL Microbiology - Last 24 Hours (Table) 12/18/17 12:20 Blood Culture - Preliminary Blood No Growth after 48 hours Assessment and Plan Plan: 1. Influenza A and COPD exacerbation. Continue Tamiflu, Solu-Medrol. Consult pulmonary medicine. [place] or Dilaudid for pain. 2. Recent admission for PSBO resolved with conservative treatment with history of multiple abdominal surgeries due to IBD(crohn and Ulcerative colitis) with multiple adhesions. 3. IBD. continue to hold off Humira and MP. 4. Known history of left upper lobe density for which she follows with Dr. Mistry and is scheduled for CAT scan of the chest next month. CT of the chest with contrast will be ordered now and premedicated for iodine ALLERGY. 5. Hypertension and hypertensive cardiovascular disease. will continue with Atenolol 25 mg orally daily. 6. Severe COPD with FEV1 36%. will continue with Neb Rx and Symbicort. 7. Fibromyalgia. we will continue with Gabapentin 300 mg po tid. 8. 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 we will continue with opium tincture 2 ml orally 4 times per day. 9. H/O right sided Pneumothorax. post Thoravents. 10. GERD with hiatal hernia. we will continue with PPI. 11. Osteoporosis. stable. 12. DVT prophylaxis. we will continue with heparin 5000 units sc q 8 h 13. GI prophylaxis. we will continue with PPI. Discharge plan: Return home Impression and plan of care have been directed as dictated by the signing physician. Gaby Rothman nurse practitioner acting as scribe for signing physician.
[2017-12-21] MEDS: PROMETHAZ-COD 6.25-10 MG/5 ML 5 ML CUP PO PRN (13:17)
--- NOTE | 2017-12-21 13:27 | P.PN ---
Subjective Progress Note Date: 12/21/17 Principal diagnosis: Acute exacerbation of COPD and influenza A infection. This is a 57-year-old female, known to our service, usually sees Dr. Mistry for severe end-stage COPD, FEV1 is in the range of 36%. However the patient is not O2 dependent, and not prednisone dependent. She is also known to have history of multiple comorbidities including recurrent episodes of spontaneous pneumothoraces requiring for thoravent placement, history of Crohn's disease, fibromyalgia, recent history of partial small bowel obstruction treated medically did not require any surgical intervention, history of multiple abdominal surgeries, previous smoking history however she quit in 2017. Patient is also known to have history of fibromyalgia, GI bleeding, hypertension, and osteoarthritis. Patient presented this time with a few days' history of cough, cough is productive with whitish phlegm, fever, chills, shortness of breath, and she was recently exposed to her father who had influenza patient was seen in the ER, workup was positive for influenza A, CT of the chest was done and it showed chronic abnormalities in the right upper lobe and left upper lobe, seems to be better than previous findings on previous CT of the chest, and the patient is still scheduled to see Dr. Mistry for follow-up on these nodularities in upper lobes bilaterally. I believe she was supposed to have a repeat CT of the chest next month, but considering that she just had a CT of the chest, the scheduled CT of the chest could be delayed at least another 4-6 months. Since admission the patient was placed on bronchodilators, steroids, Tamiflu, but no antibiotics. Patient is doing much better today, breathing easier, less cough and less wheezing less congestion. On physical examination she continues to have some wheezing on forced expiratory maneuver. She had a T-max of 98.8 otherwise the remaining vital signs are stable. O2 saturation is 92% on 2 L nasal Objective - Vital Signs Vital signs: Vital Signs Temp 98.8 F 12/21/17 13:11 Pulse 83 12/21/17 13:11 Resp 16 12/21/17 13:11 BP 136/89 12/21/17 13:11 Pulse Ox 93 L 12/21/17 13:11 Intake & Output 12/20/17 12/21/17 12/21/17 18:59 06:59 18:59 Intake Total 720 480 Balance 720 480 Intake: Oral 720 480 Other: # Voids 2 4 - Exam Physical Exam: Revealed a 57-year-old female, in mild respiratory distress, on nasal cannula. Head: Atraumatic, normocephalic. HEENT:[Neck is supple.] [No neck masses.] [No thyromegaly.] [No JVD.] Moist mucous membranes, no stridor, no masses, throat is clear. Chest: [Good breath sound bilaterally, some wheezing on forced expiratory maneuver only was noted. Cardiac Exam: [Normal S1 and S2, no S3 gallop, no murmur.] Abdomen: [Soft, nontender, no megaly, no rebound, no guarding, normal bowel sounds.] Extremities: [No clubbing, no edema, no cyanosis.] Neurological Exam: [No focal neurologic deficit. Psychiatric: Normal mood affect and intact mental status. Intact judgment and insight. Musculoskeletal: No gross deficit, normal gait, strength equal bilaterally.] - Labs CBC & Chem 7: 12/18/17 12:20 12/18/17 12:20 Labs: Abnormal Lab Results - Last 24 Hours (Table) 12/20/17 12/20/17 12/21/17 Range/Units 17:38 21:09 07:28 POC Glucose (mg/dL) 125 H 118 H 135 H (75-99) mg/dL 12/21/17 Range/Units 12:12 POC Glucose (mg/dL) 137 H (75-99) mg/dL Microbiology - Last 24 Hours (Table) 12/18/17 12:20 Blood Culture - Preliminary Blood No Growth after 48 hours Assessment and Plan Assessment: Impression: 1 acute influenza A 2 acute COPD exacerbation triggered by influenza A [address] of the chest, however the new CT of the chest done on this admission is reassuring, and the next computed tomography scan could be delayed at least another 4 months. 4 history of multiple comorbidities including Crohn's disease, fibromyalgia, short gut syndrome, GERD with hiatal hernia, history of osteoporosis, history of hypertension and history of multiple abdominal surgeries with previous partial small bowel obstruction. Recommendation: Continue present treatment plan, continue Tamiflu, continue GI and DVT prophylaxis, would consider empiric antibiotics in the form of Rocephin , switched the patient to oral prednisone instead of Solu-Medrol, and consider discharge planning in the next 24 hours. Time with Patient: Less than 30
[2017-12-21] MEDS: predniSONE 10 MG TAB PO SCH (15:50)
[2017-12-21] MEDS: MAGNESIUM OXIDE 400 MG TAB PO SCH (15:58)
[2017-12-21] MEDS: ATENOLOL 25 MG TAB PO SCH (15:58)
[2017-12-21] MEDS: FAMOTIDINE 20 MG TAB PO SCH (15:59)
[2017-12-21] MEDS: CALCIUM CARB-VIT D 500MG-200UN 1 EACH TAB PO SCH ×2 (15:59→16:49)
[2017-12-21 17:07] LABS: Glucose,Whole Blood 163 mg/dL (75-99)
[2017-12-21 20:51] LABS: Glucose,Whole Blood 147 mg/dL (75-99)
[2017-12-21] MEDS: MELATONIN 3 MG TABLET PO SCH (21:04)
[2017-12-21] MEDS: LATANOPROST 0.005% OPHTH DROPS 2.5 ML BTL BOTH EYES SCH (21:13)
[2017-12-22] MEDS: HEPARIN SODIUM,PORCINE 5,000 UNIT/ML 1 ML VIAL SQ SCH ×2 (00:06→08:05)
[2017-12-22] MEDS: OSELTAMIVIR 75 MG CAP PO SCH ×2 (00:06→11:39)
[2017-12-22] MEDS: NYSTATIN 100,000 UNIT/ML SUSP 500,000 UNIT/5 ML CUP PO SCH ×3 (00:06→13:55)
[2017-12-22] MEDS: HYDROcodone/APAP 10-325MG 1 EACH TAB PO PRN ×3 (02:43→11:40)
[2017-12-22 07:26] LABS: Glucose,Whole Blood 123 mg/dL (75-99)
[2017-12-22] MEDS: INSULIN ASPART 100 UNIT/ML 1 ML 10 ML VIAL SQ SCH ×2 (07:27→12:38)
[2017-12-22] MEDS: MAGNESIUM OXIDE 400 MG TAB PO SCH (08:04)
[2017-12-22] MEDS: ATENOLOL 25 MG TAB PO SCH (08:04)
[2017-12-22] MEDS: guaiFENesin 600 MG TABLET.ER PO SCH (08:04)
[2017-12-22] MEDS: busPIRone HCl 10 MG TAB PO SCH (08:04)
[2017-12-22] MEDS: predniSONE 10 MG TAB PO SCH (08:04)
[2017-12-22] MEDS: MERCAPTOPURINE 50 MG TAB PO SCH (08:04)
[2017-12-22] MEDS: FAMOTIDINE 20 MG TAB PO SCH (08:04)
[2017-12-22] MEDS: cefTRIAXone IN SWFI 1,000 MG/10 ML SYRINGE IVP SCH (08:05)
[2017-12-22] MEDS: GABAPENTIN 300 MG CAP PO SCH (08:05)
[2017-12-22] MEDS: CALCIUM CARB-VIT D 500MG-200UN 1 EACH TAB PO SCH (08:07)
[2017-12-22 09:11] VITALS: BP 138/82; TEMP 98
[2017-12-22] MEDS: IPRATROPIUM-ALBUTEROL 3 ML NEB INHALATION SCH ×3 (09:12→15:21)
[2017-12-22] MEDS: SYMBICORT 80-4.5 MCG INHALER INHALATION SCH (09:12)
[2017-12-22] MEDS: CHOLECALCIFEROL 1,000 UNIT TAB PO SCH (11:39)
[2017-12-22] MEDS: ALPRAZolam 0.25 MG TAB PO PRN (11:39)
[2017-12-22] MEDS: MULTIVITAMINS, THERA 1 EACH TAB PO SCH (11:39)
[2017-12-22] MEDS: VITAMIN E (DL,TOCOPHERYL ACET) 400 UNIT CAP PO SCH (11:39)
[2017-12-22 11:44] VITALS: RESP 20
[2017-12-22] MEDS ORDERED: ADALIMUMAB 80 MG/1.6 ML KIT SQ SCH (12:00)
[2017-12-22 12:09] LABS: Glucose,Whole Blood 138 mg/dL (75-99)
--- NOTE | 2017-12-22 13:32 | P.DS ---
Providers Date of admission: 12/18/17 13:53 Expected date of discharge: 12/22/17 Attending physician: Juanita Zapata Consults: 12/19/17 11:06 Consult Physician Routine Consulting Provider: Magali Cintron Consult Reason/Comments: Flu, COPD Do you want consulting provider notified?: Yes Primary care physician: [facility] Course: This is a 57-year-old female patient of Dr. James with past medical history of severe COPD, pneumothorax requiring chest tubes and Thoravent placement, fibromyalgia, Crohn's disease and ulcerative colitis with total colectomy and ileostomy placement with multiple surgical interventions and multiple stoma revisions with adhesions over the years. She is on opium tincture for chronic diarrhea. Patient was recently admitted this month for partial small bowel obstruction resolved on conservative management and was discharged on December 11. Patient states she has not been smoking around secondhand smoke since her discharge. She denies any cough. She states she has had increased shortness of breath when she normally can walk to the bathroom or the living room she could only make it to the doorway. She has been taking care of her father who was diagnosed with influenza on Monday. She follows normally with Dr. Mistry and is scheduled for CAT scan of the chest next month regarding a mass in the left upper lobe that is being followed. Patient came into [facility] emergency center for evaluation. She was afebrile but had tachycardia. Pulse ox was 92% on room air. White count was normal. Chest x-ray shows bullous emphysema. No acute change. Focal left upper lobe density is redemonstrated. Slightly less pronounced from April x -ray. A neoplastic etiology is less likely but cannot be entirely excluded. Patient was tested for influenza and was positive for type A. patient was started on Tamiflu, Solu-Medrol and admitted to the floor. Consult added for pulmonary medicine. CT of the chest ordered and patient premedicated for iodine ALLERGY. 12/20: Patient states that she had significant difficulty sleeping due to a cough that is now a little bit productive. She still feels very tight. She has been up in the chair but would like to ambulate today. She states she was off oxygen for several hours yesterday but by the afternoon she felt more winded. Sputum is a thick pale color. Sputum culture will be requested. Solu- Medrol will be decreased from 60 every 6 hours to twice daily. She is continued on isolation precautions and Tamiflu. 12/21: CAT scan of the chest revealed marked improvement in the upper lobe and right middle lobe obesity therefore findings are favored to represent scarring and improving infectious or inflammatory etiology rather than neoplasm although continued surveillance is recommended. Results were related to the patient. She is currently on Solu-Medrol 60 every 12 hours change to prednisone today by Dr. Cintron. Pulse ox is 96% on 2 L. Patient has been afebrile. Patient states that she feels tired and she has been sitting up in a chair but now walking in the hallway. Her brother is staying with her when she gets discharge. Dr. Morales has cleared her for discharge the patient is requesting to stay until tomorrow. Anticipate discharge home tomorrow. 12/22: The rest patient had a pulse ox of 89-90%. With ambulation patient dropped to 84%. Patient will be set up with home oxygen. Otherwise breathing status is stable. Patient will be discharged home today in stable condition. Discharge diagnoses: 1. Influenza A and COPD exacerbation. 2. Recent admission for PSBO resolved with conservative treatment with history of multiple abdominal surgeries due to IBD(crohn and Ulcerative colitis) with multiple adhesions. 3. IBD. 4. Known history of left upper lobe density for which she follows with Dr. Mistry 5. Hypertension and hypertensive cardiovascular disease. 6. Severe COPD with FEV1 36%. 7. Fibromyalgia. 8. 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 9. H/O right sided Pneumothorax. post Thoravents. 10. GERD with hiatal hernia. 11. Osteoporosis. stable. 12. Chronic hypoxic respiratory failure requiring Home O2 Discharge plan: Return home Impression and plan of care have been directed as dictated by the signing physician. Gaby Rothman nurse practitioner acting as scribe for signing physician. Patient Condition at Discharge: Good Plan - Discharge Summary Discharge Rx Participant: No New Discharge Prescriptions: No Action Adalimumab [Humira Pen] 40 mg SQ FR Aclidinium [place] [Tudorza Pressair] 400 mcg INHALATION RT-BID Fluticasone/Vilanterol [Breo Ellipta 100-25 Mcg Inhaler] 1 puff INHALATION RT -HS Opium Tincture 2 ml PO QID Multivitamins, Thera [Multivitamin (formulary)] 1 tab PO DAILY Calcium Carb-Vit D 500Mg-200Un [Oscal 500+D] 1 tab PO BID Mercaptopurine [Purinethol] 50 mg PO BID Albuterol Sulfate [Proair Hfa] 2 puff INHALATION RT-Q4H PRN PRN Reason: Shortness Of Breath busPIRone HCl [Buspar] 10 mg PO BID Cholecalciferol [Vitamin D3] 3,000 unit PO DAILY Melatonin 3 mg PO HS tab Atenolol 25 mg PO DAILY Latanoprost Ophth [Xalatan 0.005%] 1 drop BOTH EYES HS Albuterol Nebulized [Ventolin Nebulized] 2.5 mg INHALATION RT-QID PRN PRN Reason: Shortness Of Breath HYDROcodone/APAP 10-325MG [Zeig[place] 10-325] 1 tab PO Q4HR PRN PRN Reason: Abdominal Pain Nicotine Polacrilex [Nicotine Gum] 4 mg BUCCAL TID PRN PRN Reason: Nicotine Cravings Vitamin E 100 unit PO DAILY Magnesium 200 mg PO DAILY Gabapentin [Neurontin] 300 mg PO TID Discharge Medication List Aclidinium [place] [Tudorza Pressair] 400 mcg INHALATION RT-BID 06/21/14 [ History] Adalimumab [Humira Pen] 40 mg SQ FR 06/21/14 [History] Calcium Carb-Vit D 500Mg-200Un [Oscal 500+D] 1 tab PO BID 04/27/16 [History] Fluticasone/Vilanterol [Breo Ellipta 100-25 Mcg Inhaler] 1 puff INHALATION RT- HS 04/27/16 [History] Multivitamins, Thera [Multivitamin (formulary)] 1 tab PO DAILY 04/27/16 [History ] Opium Tincture 2 ml PO QID 04/27/16 [History] Mercaptopurine [Purinethol] 50 mg PO BID 02/22/17 [History] Albuterol Sulfate [Proair Hfa] 2 puff INHALATION RT-Q4H PRN 05/09/17 [History] Cholecalciferol [Vitamin D3] 3,000 unit PO DAILY 05/09/17 [History] busPIRone HCl [Buspar] 10 mg PO BID 05/09/17 [History] Melatonin 3 mg PO HS tab 05/11/17 [Rx] Atenolol 25 mg PO DAILY 05/20/17 [History] Latanoprost Ophth [Xalatan 0.005%] 1 drop BOTH EYES HS 05/21/17 [History] Albuterol Nebulized [Ventolin Nebulized] 2.5 mg INHALATION RT-QID PRN 06/24/17 [ History] HYDROcodone/APAP 10-325MG [Zeigler 10-325] 1 tab PO Q4HR PRN 06/24/17 [History] Nicotine Polacrilex [Nicotine Gum] 4 mg BUCCAL TID PRN 06/24/17 [History] Gabapentin [Neurontin] 300 mg PO TID 12/08/17 [History] Magnesium 200 mg PO DAILY 12/08/17 [History] Vitamin E 100 unit PO DAILY 12/08/17 [History] Activity/Diet/Wound Care/Special Instructions: give pt her home med from pharmacy
[2017-12-22 15:34] VITALS: PULSE 88
== END 2017-12-22 16:38 | disposition home health service (06) | DRG 194 ==
LOC: EC 11:53 → 4MS4W 13:53 → 6PED 21:51
PROVIDERS: ADMIT Internal Medicine; ATTEND Internal Medicine
DX: J10.1 Influenza due to other identified influenza virus with other respiratory manifestations (principal); J44.1 Chronic obstructive pulmonary disease with (acute) exacerbation; J96.11 Chronic respiratory failure with hypoxia; K91.2 Postsurgical malabsorption, not elsewhere classified; K50.90 Crohn's disease, unspecified, without complications; I11.9 Hypertensive heart disease without heart failure; E78.5 Hyperlipidemia, unspecified; K21.9 Gastro-esophageal reflux disease without esophagitis; K44.9 Diaphragmatic hernia without obstruction or gangrene; M79.7 Fibromyalgia; M81.0 Age-related osteoporosis without current pathological fracture; M15.9 Polyosteoarthritis, unspecified; Z79.899 Other long term (current) drug therapy; Z88.2 Allergy status to sulfonamides; Z88.8 Allergy status to other drugs, medicaments and biological substances; Z88.6 Allergy status to analgesic agent; Z91.041 Radiographic dye allergy status; Z90.710 Acquired absence of both cervix and uterus; Z87.891 Personal history of nicotine dependence; Z90.49 Acquired absence of other specified parts of digestive tract; Z82.49 Family history of ischemic heart disease and other diseases of the circulatory system
CPT/HCPCS: 36415; 36600; 71046; 71260; 80053; 82553; 82805; 83036; 83605; 83735; 83880; 84484; 85025; 85610; 85730; 87040; 87070; 87205; 87502; 93005; 94640; 96361; 96365; 96375; 99285

== ENCOUNTER → 2018-02-21 | Outpatient (CLI) | payer BC ==
[2018-02-21 11:57] LABS: Basophils % (A) 0 %; Eosinophils # (A) 0.1 k/uL (0-0.7); Eosinophils % (A) 1 %; HCT 42.9 % (34.0-46.0); HGB 14.3 gm/dL (11.4-16.0); Lymphocytes # (A) 2.8 k/uL (1.0-4.8); Lymphocytes % (A) 39 %; MCH 31.2 pg (25.0-35.0); MCHC 33.3 g/dL (31.0-37.0); MCV 93.7 fL (80.0-100.0); Mean Platelet Volume 7.2; Monocytes # (A) 0.5 k/uL (0-1.0); Monocytes % (A) 7 %; Neutrophils # (A) 3.5 k/uL (1.3-7.7); Neutrophils % (A) 49 %; Platelet Count 265 k/uL (150-450); RBC 4.58 m/uL (3.80-5.40); RDW 14.6 % (11.5-15.5); WBC 7.2 k/uL (3.8-10.6)
[2018-02-21 12:18] LABS: ALT 29 U/L (9-52); AST 23 U/L (14-36); Albumin 4.5 g/dL (3.5-5.0); Alkaline Phosphatase 52 U/L (38-126); Anion Gap 13 mmol/L; Blood Urea Nitrogen 10 mg/dL (7-17); C Reactive Protein <5.0 mg/L (<10.0); Calcium 10.1 mg/dL (8.4-10.2); Carbon Dioxide 29 mmol/L (22-30); Chloride 100 mmol/L (98-107); Glucose 89 mg/dL (74-99); Potassium 4.2 mmol/L (3.5-5.1); Sodium 142 mmol/L (137-145); Total Bilirubin 0.6 mg/dL (0.2-1.3); Total Protein 6.9 g/dL (6.3-8.2)
[2018-02-21 14:17] LABS: Erythrocyte Sedimentation Rate 14 mm/hr (0-20)
== END | disposition home or self-care (01) ==
LOC: LABWHC1 11:17
PROVIDERS: ATTEND Internal Medicine Gastroenterology
DX: K50.90 Crohn's disease, unspecified, without complications (principal)
CPT/HCPCS: 36415; 80053; 85025; 85652; 86140

== ENCOUNTER → 2018-03-05 | Outpatient (CLI) | payer BC ==
--- NOTE | 2018-03-05 10:59 | BD ---
EXAMINATION TYPE: MG DEXA axial skeleton. DATE OF EXAM: 03/05/2018 COMPARISON: 01.01.2010 DEXA bone scan. CLINICAL HISTORY: 57 YR OLD FEMALE....ICD-10 CODE: M81.8 OSTEOPOROSIS W/O PATHOLOGIC FX... Height: 60 Weight: 105 FRAX RISK QUESTIONS: Alcohol (3 or more units per day): NO Family History (Parent hip fracture): NO HIP FX....BUT SPINE FX Glucocorticoids (More than 3mos): YES (Ex: prednisone, prednisolone, methylprednisolone, dexamethasone, and hydrocortisone). History of Fracture in Adulthood: YES Secondary Osteoporosis: YES 1. Type 1 Diabetes: NO 2. Hyperthyroidism: NO 3. Menopause before 45: YES AT 38 YRS OLD 4. Malnutrition: NO 5. Chronic liver disease: NO Rheumatoid Arthritis: NO Current Tobacco Use: NO...QUIT 18 MOS AGO RISK FACTORS HISTORY OF: RIBS, SEVERAL TIMES....>50 YRS Family History of Osteoporosis: YES HER MOTHER, WITH SPINAL FXS Active: NO ...O2 AND W/C Diet low in dairy products/other sources of calcium: NO Postmenopausal woman: YES AT AGE,38 YRS OLD, TOTAL HYSTERECTOMY Lost more than 2 inches in height since high school: YES Poor Health: FRAIL, ON Hyperparathyroidism: NO Adrenal Insufficiency: NO MEDICATIONS: Prednisone or other steroids: ON AND OFF AND INHALERS AND BREATHING TREATMENTS, CORTIZONE AND STEROID S INTO JOINTS Osteoporosis Medications: PROLIA How Long: ALMOST 2 YRS Additional Medications: BP MEDS, VIT D AND CALCIUM, Additional History: COPD, CRONES DISEASE EXAM MEASUREMENTS: Bone mineral densitometry was performed using the [employer] System. Bone mineral density as measured about the Lumbar spine is: ----- L1-L4(G/cm2): 0.971 T Score Values are as follows: ----- L1: -2.6 ----- L2: -2.4 ----- L3: -1.5 ----- L4: -0.9 ----- L1-L4: -1.7 Bone mineral density has: Increased 5.5% since study of: 01.01.2010 Bone mineral density about the R hip (g/cm2): 0.742 Bone mineral density about the L hip (g/cm2): 0.776 T Score values are as follows: -----R Neck: -2.2 -----L Neck: -1.9 -----R Total: -2.1 -----L Total: -1.8 Bone mineral density has: Decreased -9.3% since study of: 01.01.2010 FRAX%S: THERE IS A 22.9% CHANCE OF A MAJOR OSTEOPOROTIC FX AND A 4.7% FOR HIP FX....PROBABILITY OF FX IN 10 YRS TIME IMPRESSION: Osteopenia (T Score between -2.5 and -1) in low back and both hips.. There is slightly increased risk of fracture and the patient may be considered for treatment. Re-Screen 2-5 years. NOTE: T-SCORE=SD OF THE YOUNG ADULT MEAN.
== END | disposition home or self-care (01) ==
LOC: RADBDWWP 10:02
PROVIDERS: ATTEND Internal Medicine Rheumatology
DX: M85.852 Other specified disorders of bone density and structure, left thigh (principal); M85.851 Other specified disorders of bone density and structure, right thigh
CPT/HCPCS: 77080

== ENCOUNTER 2018-05-16 17:44 | Emergency (ER) | payer BC ==
[2018-05-16 17:55] VITALS: TEMP 98.3
[2018-05-16] MEDS ORDERED: IPRATROPIUM-ALBUTEROL 3 ML NEB INHALATION STA (18:14)
[2018-05-16] MEDS ORDERED: SODIUM CHLORIDE 0.9% 1,000 ML IV STA ×2 (18:14→22:23)
--- NOTE | 2018-05-16 18:39 | ED ---
SOB HPI - General Chief Complaint: Shortness of Breath Stated Complaint: Poss Kidney Stone, COPD Time Seen by Provider: 05/16/18 17:56 Source: patient, EMS, RN notes reviewed Mode of arrival: EMS Limitations: no limitations - History of Present Illness Initial Comments: This is a 57-year-old female who presents to the emergency department with multiple complaints. Patient was transferred to the emergency department via EMS. Patient reports a history of Crohn's disease, kidney stones and COPD. Patient states that over this past week she has been having difficulty breathing with ambulation. She states that at rest she has been able to keep her O2 saturation at 95% when she gets up and ambulates it drops to 80s and high 70s. Patient does state that she has been using Breo, Tudorza and albuterol updrafts daily. She states that she was recently treated for a COPD exacerbation with steroids. She states she was on a two-week course of steroids and finished her last dose of prednisone this past Monday. No recent antibiotic use. Patient denies any chest pain. She does report a history of 2 right lung collapses last year that were one week apart. 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 Patient also reports vomiting and diarrhea that began today. She states she believes her Crohn's is "acting up." She states that she is on Humira and Purenithol for her Crohn's. She reports noticing blood in her stool. She states that the blood is mixed in and streaky. Patient also reports she does have an ileostomy that has been present for 28 years. She states that she normally has tenderness around the stoma but that pain has increased today. She states that she has had to empty her ileostomy 7 times today. Patient also reports that she has vomited 5 times today. Patient also reports she believes she may be passing a kidney stone. She states she has a history of kidney stones. She states that today she developed right flank pain with radiation to her right side. She states that she noticed blood in her urine today and describes the pain as stabbing and constant. Patient states that in August 2017 she had to have surgery to remove a kidney stone in the left ureter. 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 Patient denies any fevers or chills. - Related Data Home Medications Medication Instructions Recorded Confirmed Aclidinium [place] [Tudorza 400 mcg INHALATION RT-BID 06/21/14 05/16/18 Pressair] Adalimumab [Humira Pen] 40 mg SQ TU 06/21/14 05/16/18 Calcium Carb-Vit D 500Mg-200Un 1 tab PO BID 04/27/16 05/16/18 [Oscal 500+D] Fluticasone/Vilanterol [Breo 1 puff INHALATION RT-HS 04/27/16 05/16/18 Ellipta 100-25 Mcg Inhaler] Multivitamins, Thera [Multivitamin 1 tab PO DAILY 04/27/16 05/16/18 (formulary)] Opium Tincture 2 ml PO QID 04/27/16 05/16/18 Mercaptopurine [Purinethol] 50 mg PO BID 02/22/17 05/16/18 Albuterol Sulfate [Proair Hfa] 2 puff INHALATION RT-Q4H PRN 05/09/17 05/16/18 Cholecalciferol [Vitamin D3] 3,000 unit PO DAILY 05/09/17 05/16/18 busPIRone HCl [Buspar] 10 mg PO BID 05/09/17 05/16/18 Atenolol 25 mg PO DAILY 05/20/17 05/16/18 Latanoprost Ophth [Xalatan 0.005%] 1 drop BOTH EYES HS 05/21/17 05/16/18 Albuterol Nebulized [Ventolin 2.5 mg INHALATION RT-QID PRN 06/24/17 05/16/18 Nebulized] HYDROcodone/APAP 10-325MG [Samson 1 tab PO Q4HR PRN 06/24/17 05/16/18 10-325] Nicotine Polacrilex [Nicotine Gum] 4 mg BUCCAL TID PRN 06/24/17 05/16/18 Gabapentin [Neurontin] 300 mg PO TID 12/08/17 05/16/18 Magnesium 200 mg PO DAILY 12/08/17 05/16/18 Nystatin 100,000 Unit/ml Susp 500,000 unit PO QID PRN 05/16/18 05/16/18 [Mycostatin Oral Susp] Previous Rx's Medication Instructions Recorded Melatonin 3 mg PO HS tab 05/11/17 predniSONE 20 mg PO DAILY #5 tab 05/16/18 Allergies Allergy/AdvReac Type Severity Reaction Status Date / Time Iodinated Contrast- Oral and Allergy Anaphylaxis Verified 05/16/18 18:23 IV Dye Sulfa (Sulfonamide Allergy Rash/Hives Verified 05/16/18 18:23 Antibiotics) aspirin AdvReac Internal Verified 05/16/18 18:23 Bleeding timolol [Timolol] AdvReac Nausea & Verified 05/16/18 18:23 Vomiting Review of Systems ROS Statement: Those systems with pertinent positive or pertinent negative responses have been documented in the HPI. ROS Other: All systems not noted in ROS Statement are negative. Past Medical History Past Medical History: COPD, Fibromyalgia, GERD/Reflux, GI Bleed, Hyperlipidemia , Hypertension, Osteoarthritis (OA), Pneumonia, Syncope Additional Past Medical History / Comment(s): COPD, crohn's, bowel obstructions , lower GI bleeds, hiatal hernia, osteoporosis, arthritis multiple joints, seasonal allergies, right-sided pneumothorax x2 History of Any Multi-Drug Resistant Organisms: None Reported Past Surgical History: Breast Surgery, Cholecystectomy, Hernia Repair, Hysterectomy, Orthopedic Surgery Additional Past Surgical History / Comment(s): Multiple bowel surgeries including total colectomy/ileostomy, ileostomy moved/repaired, R tube and R ovary removed due toectopic , total hysterectomy, leep procedure, laparoscopy for endometriosis, L breast lumpectomy-benign, r breast core bx- benign, EGD/colonoscopies. Right-sided Thora-vent placement May 09 and May 19. Eye surgery bilateral,arthroscopic knee surgery on he right due to ACL and Maniscal tear. Past Anesthesia/Blood Transfusion Reactions: No Reported Reaction Past Psychological History: No Psychological Hx Reported Smoking Status: Former smoker Past Alcohol Use History: None Reported Past Drug Use History: None Reported - Past Family History Mother Family Medical History: Cancer, COPD, Hypertension Additional Family Medical History / Comment(s): Mother at age 83 from COPD and osteoarthritis and had skin cancer. Father Family Medical History: Cancer, CVA/TIA, Dementia, Diabetes Mellitus Additional Family Medical History / Comment(s): Father is 90yrs old. Brother(s) Family Medical History: Cancer Additional Family Medical History / Comment(s): Patient had 5 brothers and one of them from melanoma. Sister(s) Family Medical History: No Reported History Additional Family Medical History / Comment(s): Patient has one sister. Patient has no kids. General Exam - General Exam Comments Initial Comments: General: Awake and alert, well-developed; in no apparent distress. HEENT: Head atraumatic, normocephalic. Pupils are equal, round and reactive to light. Extraocular movements intact. Oropharynx moist without erythema or exudate. Neck: Supple. Normal ROM. No JVD. Cardiovascular: Regular rate and rhythm. No murmurs, rubs or gallops. Chest symmetrical. Respiratory: Normal respiratory effort with no use of accessory muscles. Diminished breath sounds throughout. Wheezes left lung base. No rhonci or rales. Abdomen: Soft, non-distended. Iliostomy is dry and intact RLQ. Tenderness on palpation of periumbilical region and surrounding stoma. Tenderness on palpation of right flank. No rigidity, rebound or guarding. Normal bowel sounds in all 4 quadrants. Musculoskeletal: Normal ROM, no tenderness bilateral upper and lower extremities. No bilateral pedal edema. Skin: [place], warm and dry without rashes or lesions. Neurological: Alert and oriented x3. CN II-XII grossly intact. Speech is fluent and answers are appropriate. No focal neuro deficits. Psychiatric: Normal mood and affect. No overt signs of depression or anxiety noted. Limitations: no limitations Course Vital Signs 05/16/18 05/16/18 05/16/18 17:50 19:22 19:29 Temperature 98.3 F Pulse Rate 119 H 111 H 112 H Respiratory 20 Rate Blood Pressure 109/70 O2 Sat by Pulse 97 Oximetry 05/16/18 05/16/18 05/16/18 20:16 21:05 21:50 Temperature Pulse Rate 125 H 117 H 115 H Respiratory 22 16 16 Rate Blood Pressure 177/89 123/71 O2 Sat by Pulse 95 99 98 Oximetry Medical Decision Making - Medical Decision Making This is a 57-year-old female who presented to the emergency department with multiple complaints. Patient complaint of shortness of breath with ambulation. She is on 2 L of oxygen at home. She reports history of COPD. Denied any chest pain. Chest x-ray revealed evidence for COPD, however no acute abnormalities. Cardiac enzymes and d-dimer were negative. Patient's O2 saturation has been stable throughout entire emergency department stay. She was recently treated for a COPD exacerbation with 2 weeks worth of steroids. Patient will be started on 20 mg of prednisone for the next 5 days. She is recommended to follow-up Dr. Mistry. Patient also complained of possible Crohn 's flare and right-sided kidney stone. She complained of nausea, vomiting and noticing some blood streaking in her stool. Patient does have an ileostomy bag that is intact in the right lower quadrant. He did have mild tenderness surrounding the stoma and tenderness on palpation of the right flank. UA revealed no evidence for infection but did reveal some blood. Computed tomography scan of the abdomen and pelvis without contrast was obtained and revealed chronic small bowel dilation that has improved from previous computed tomography scan. It also revealed a slightly increased with right renal collecting system that may be consistent with a recently passed kidney stone. CMP was unremarkable. Stool occult was positive, however hemoglobin is stable. These findings were discussed with attending physician, Dr. Benítez. Recommending discharge home with outpatient follow-up. Patient's vital signs have been stable-patient has had tachycardia, however on review of previous vital signs this is been consistent. This is patient's baseline. She is in no acute distress. Findings and plan were discussed with her and she is in agreement and voices understanding. All questions were answered. Patient will be discharged home at this time. - Lab Data Result diagrams: 05/16/18 20:10 05/16/18 20:10 Lab Results 05/16/18 05/16/18 05/16/18 Range/Units 20:10 20:10 20:10 WBC 6.9 (3.8-10.6) k/uL RBC 3.94 (3.80-5.40) m/uL Hgb 12.4 (11.4-16.0) gm/dL Hct 37.7 (34.0-46.0) % MCV 95.7 (80.0-100.0) fL MCH 31.4 (25.0-35.0) pg MCHC 32.8 (31.0-37.0) g/dL RDW 15.0 (11.5-15.5) % Plt Count 199 (150-450) k/uL Neutrophils % 76 % Lymphocytes % 16 % Monocytes % 5 % Eosinophils % 1 % Basophils % 0 % Neutrophils # 5.3 (1.3-7.7) k/uL Lymphocytes # 1.1 (1.0-4.8) k/uL Monocytes # 0.3 (0-1.0) k/uL Eosinophils # 0.0 (0-0.7) k/uL Basophils # 0.0 (0-0.2) k/uL PT (9.0-12.0) sec INR (<1.2) APTT (22.0-30.0) sec D-Dimer (<0.60) mg/L FEU Sodium 140 (137-145) mmol/L Potassium 3.8 (3.5-5.1) mmol/L Chloride 106 (98-107) mmol/L Carbon Dioxide 26 (22-30) mmol/L Anion Gap 8 mmol/L BUN 21 H (7-17) mg/dL Creatinine 0.70 (0.52-1.04) mg/dL Est GFR (CKD-EPI)AfAm >90 (>60 ml/min/1.73 sqM) Est GFR (CKD-EPI)NonAf >90 (>60 ml/min/1.73 sqM) Glucose 80 (74-99) mg/dL Plasma Lactic Acid Josep (0.7-2.0) mmol/L Calcium 9.2 (8.4-10.2) mg/dL Magnesium 1.3 L (1.6-2.3) mg/dL Total Bilirubin 1.2 (0.2-1.3) mg/dL AST 22 (14-36) U/L ALT 40 (9-52) U/L Alkaline Phosphatase 49 (38-126) U/L Total Creatine Kinase 27 L (30-135) U/L CK-MB (CK-2) 0.9 (0.0-2.4) ng/mL CK-MB (CK-2) Rel Index 3.3 Troponin I <0.012 (0.000-0.034) ng/mL Total Protein 5.7 L (6.3-8.2) g/dL Albumin 3.5 (3.5-5.0) g/dL Amylase <30 L (30-110) U/L Lipase 37 (23-300) U/L Urine Color Urine Appearance (Clear) Urine pH (5.0-8.0) Ur Specific [place] (1.001-1.035) Urine Protein (Negative) Urine Glucose (UA) (Negative) Urine Ketones (Negative) Urine Blood (Negative) Urine Nitrite (Negative) Urine Bilirubin (Negative) Urine Urobilinogen (<2.0) mg/dL Ur Leukocyte Esterase (Negative) Urine RBC (0-5) /hpf Urine WBC (0-5) /hpf Ur Squamous Epith Cells (0-4) /hpf Urine Bacteria (None) /hpf Urine Mucus (None) /hpf Stool Occult Blood (Negative) 05/16/18 05/16/18 05/16/18 Range/Units 20:10 20:10 20:15 WBC (3.8-10.6) k/uL RBC (3.80-5.40) m/uL Hgb (11.4-16.0) gm/dL Hct (34.0-46.0) % MCV (80.0-100.0) fL MCH (25.0-35.0) pg MCHC (31.0-37.0) g/dL RDW (11.5-15.5) % Plt Count (150-450) k/uL Neutrophils % % Lymphocytes % % Monocytes % % Eosinophils % % Basophils % % Neutrophils # (1.3-7.7) k/uL Lymphocytes # (1.0-4.8) k/uL Monocytes # (0-1.0) k/uL Eosinophils # (0-0.7) k/uL Basophils # (0-0.2) k/uL PT 9.8 (9.0-12.0) sec INR 1.0 (<1.2) APTT 24.4 (22.0-30.0) sec D-Dimer 0.59 (<0.60) mg/L FEU Sodium (137-145) mmol/L Potassium (3.5-5.1) mmol/L Chloride (98-107) mmol/L Carbon Dioxide (22-30) mmol/L Anion Gap mmol/L BUN (7-17) mg/dL Creatinine (0.52-1.04) mg/dL Est GFR (CKD-EPI)AfAm (>60 ml/min/1.73 sqM) Est GFR (CKD-EPI)NonAf (>60 ml/min/1.73 sqM) Glucose (74-99) mg/dL Plasma Lactic Acid Josep 1.5 (0.7-2.0) mmol/L Calcium (8.4-10.2) mg/dL Magnesium (1.6-2.3) mg/dL Total Bilirubin (0.2-1.3) mg/dL AST (14-36) U/L ALT (9-52) U/L Alkaline Phosphatase (38-126) U/L Total Creatine Kinase (30-135) U/L CK-MB (CK-2) (0.0-2.4) ng/mL CK-MB (CK-2) Rel Index Troponin I (0.000-0.034) ng/mL Total Protein (6.3-8.2) g/dL Albumin (3.5-5.0) g/dL Amylase (30-110) U/L Lipase (23-300) U/L Urine Color Yellow Urine Appearance Clear (Clear) Urine pH 6.0 (5.0-8.0) Ur Specific [place] 1.014 (1.001-1.035) Urine Protein Trace H (Negative) Urine Glucose (UA) Negative (Negative) Urine Ketones 2+ H (Negative) Urine Blood Small H (Negative) Urine Nitrite Negative (Negative) Urine Bilirubin Negative (Negative) Urine Urobilinogen <2.0 (<2.0) mg/dL Ur Leukocyte Esterase Negative (Negative) Urine RBC 10 H (0-5) /hpf Urine WBC 1 (0-5) /hpf Ur Squamous Epith Cells <1 (0-4) /hpf Urine Bacteria Rare H (None) /hpf Urine Mucus Rare H (None) /hpf Stool Occult Blood (Negative) 05/16/18 Range/Units 20:15 WBC (3.8-10.6) k/uL RBC (3.80-5.40) m/uL Hgb (11.4-16.0) gm/dL Hct (34.0-46.0) % MCV (80.0-100.0) fL MCH (25.0-35.0) pg MCHC (31.0-37.0) g/dL RDW (11.5-15.5) % Plt Count (150-450) k/uL Neutrophils % % Lymphocytes % % Monocytes % % Eosinophils % % Basophils % % Neutrophils # (1.3-7.7) k/uL Lymphocytes # (1.0-4.8) k/uL Monocytes # (0-1.0) k/uL Eosinophils # (0-0.7) k/uL Basophils # (0-0.2) k/uL PT (9.0-12.0) sec INR (<1.2) APTT (22.0-30.0) sec D-Dimer (<0.60) mg/L FEU Sodium (137-145) mmol/L Potassium (3.5-5.1) mmol/L Chloride (98-107) mmol/L Carbon Dioxide (22-30) mmol/L Anion Gap mmol/L BUN (7-17) mg/dL Creatinine (0.52-1.04) mg/dL Est GFR (CKD-EPI)AfAm (>60 ml/min/1.73 sqM) Est GFR (CKD-EPI)NonAf (>60 ml/min/1.73 sqM) Glucose (74-99) mg/dL Plasma Lactic Acid Josep (0.7-2.0) mmol/L Calcium (8.4-10.2) mg/dL Magnesium (1.6-2.3) mg/dL Total Bilirubin (0.2-1.3) mg/dL AST (14-36) U/L ALT (9-52) U/L Alkaline Phosphatase (38-126) U/L Total Creatine Kinase (30-135) U/L CK-MB (CK-2) (0.0-2.4) ng/mL CK-MB (CK-2) Rel Index Troponin I (0.000-0.034) ng/mL Total Protein (6.3-8.2) g/dL Albumin (3.5-5.0) g/dL Amylase (30-110) U/L Lipase (23-300) U/L Urine Color Urine Appearance (Clear) Urine pH (5.0-8.0) Ur Specific [place] (1.001-1.035) Urine Protein (Negative) Urine Glucose (UA) (Negative) Urine Ketones (Negative) Urine Blood (Negative) Urine Nitrite (Negative) Urine Bilirubin (Negative) Urine Urobilinogen (<2.0) mg/dL Ur Leukocyte Esterase (Negative) Urine RBC (0-5) /hpf Urine WBC (0-5) /hpf Ur Squamous Epith Cells (0-4) /hpf Urine Bacteria (None) /hpf Urine Mucus (None) /hpf Stool Occult Blood Positive H (Negative) - EKG Data EKG Comments: 19:44:48. Sinus tachycardia with premature atrial complexes. Ventricular rate 112 bpm, [place] interval 120, QRS duration 66, QT/QTC 332/453 - Radiology Data Radiology results: report reviewed, image reviewed Chest x-ray impression: COPD. Chronic left upper lobe infiltrate consistent with scarring. This appears stable compared to old exam. X-ray KUB impression: Nonacute abdomen. No change compared old exam. CT abdomen and pelvis without contrast impression: There is chronic small bowel dilation that is improved compared to last computed tomography scan. This is consistent with partial mechanical obstruction or ileus. No evidence of renal stone. Right renal collecting system is increased slightly compared to old exam of uncertain significance. This could relate to a recently passed stone. Disposition Clinical Impression: COPD exacerbation Disposition: HOME SELF-CARE Condition: Good Instructions: COPD (Chronic Obstructive Pulmonary Disease) (ED) Additional Instructions: Please take medications as prescribed. Please follow up with Dr. Mistry and/ or Dr. James within 1-2 days. Please follow up with primary care provider within 1-2 days. Return to emergency department if symptoms should worsen or any concerns arise. Prescriptions: predniSONE 20 mg PO DAILY #5 tab Is patient prescribed a controlled substance at d/c from ED?: No Referrals: Heber James MD [Primary Care Provider] - 1-2 days Time of Disposition: 22:48
--- NOTE | 2018-05-16 18:58 | XR ---
EXAMINATION TYPE: XR chest 2V DATE OF EXAM: 05/16/2018 COMPARISON: 12/18/2017 HISTORY: Abdominal pain TECHNIQUE: Frontal and lateral views of the chest are obtained. FINDINGS: Heart and mediastinum are normal. There is a 3 x 2 cm patch of infiltrate in the left uppe r lobe. There is pulmonary hyperinflation and flattening of the diaphragm. The bony thorax is intact. IMPRESSION: COPD. Chronic left upper lobe infiltrate consistent with scarring. This appears stable c ompared to old exam.
--- NOTE | 2018-05-16 19:00 | XR ---
EXAMINATION TYPE: XR KUB DATE OF EXAM: 05/16/2018 COMPARISON: 08/22/2017 HISTORY: Abdominal pain and short of breath TECHNIQUE: Single view FINDINGS: There is no sign of intestinal obstruction or pneumoperitoneum. Fecal pattern is normal. Th ere are numerous surgical clips. There are no pathologic calcifications over the kidneys. IMPRESSION: Nonacute abdomen. No change compared to old exam.
[2018-05-16 20:24] LABS: Basophils % (A) 0 %; Eosinophils % (A) 1 %; HCT 37.7 % (34.0-46.0); HGB 12.4 gm/dL (11.4-16.0); Lymphocytes # (A) 1.1 k/uL (1.0-4.8); Lymphocytes % (A) 16 %; MCH 31.4 pg (25.0-35.0); MCHC 32.8 g/dL (31.0-37.0); MCV 95.7 fL (80.0-100.0); Mean Platelet Volume 6.6; Monocytes # (A) 0.3 k/uL (0-1.0); Monocytes % (A) 5 %; Neutrophils # (A) 5.3 k/uL (1.3-7.7); Neutrophils % (A) 76 %; Platelet Count 199 k/uL (150-450); RBC 3.94 m/uL (3.80-5.40); WBC 6.9 k/uL (3.8-10.6)
[2018-05-16 20:32] LABS: ALT 40 U/L (9-52); AST 22 U/L (14-36); Albumin 3.5 g/dL (3.5-5.0); Alkaline Phosphatase 49 U/L (38-126); Amylase <30 U/L (30-110); Anion Gap 8 mmol/L; Blood Urea Nitrogen 21 mg/dL (7-17); Calcium 9.2 mg/dL (8.4-10.2); Carbon Dioxide 26 mmol/L (22-30); Chloride 106 mmol/L (98-107); Glucose 80 mg/dL (74-99); Lipase 37 U/L (23-300); Magnesium 1.3 mg/dL (1.6-2.3); Potassium 3.8 mmol/L (3.5-5.1); Sodium 140 mmol/L (137-145); Total Bilirubin 1.2 mg/dL (0.2-1.3); Total Protein 5.7 g/dL (6.3-8.2)
[2018-05-16 20:34] LABS: Appearance,Urine Clear (Clear); Bacteria,Urine Rare /hpf; Bilirubin,Urine Negative (Negative); Blood,Urine Small (Negative); Color,Urine Yellow; Glucose,Urine (UA) Negative (Negative); Ketones,Urine 2+ (Negative); Leukocyte Esterase,Urine Negative (Negative); Mucus,Urine Rare /hpf; Nitrite,Urine Negative (Negative); Protein,Urine Trace (Negative); RBC,Urine 10 /hpf (0-5); Specific Gravity,Urine 1.014 (1.001-1.035); Squamous Epithelial Cell,Urine <1 /hpf (0-4); Urobilinogen,Urine <2.0 mg/dL (<2.0); WBC,Urine 1 /hpf (0-5)
[2018-05-16 20:45] LABS: D-Dimer 0.59 mg/L FEU (<0.60); Partial Thromboplastin Time 24.4 sec (22.0-30.0); Prothrombin Time 9.8 sec (9.0-12.0)
[2018-05-16] MEDS ORDERED: MORPHINE SULFATE 4 MG/ML SYRINGE IVP STA (20:47)
[2018-05-16 20:49] LABS: Creatine Kinase 27 U/L (30-135)
[2018-05-16 21:01] LABS: Creatine Kinase MB 0.9 ng/mL (0.0-2.4); Troponin I <0.012 ng/mL (0.000-0.034)
[2018-05-16 21:06] VITALS: RESP 16
[2018-05-16] MEDS ORDERED: MAGNESIUM OXIDE 400 MG TAB PO STA (21:37)
--- NOTE | 2018-05-16 21:57 | CT ---
EXAMINATION TYPE: CT abdomen pelvis wo con DATE OF EXAM: 05/16/2018 COMPARISON: December 08, 2017 HISTORY: poss kid stone/rt flank pain CT DLP: 210.6 mGycm Automated exposure control for dose reduction was used. TECHNIQUE: Helical acquisition of images was performed from the lung bases through the pelvis. FINDINGS: There is diffuse pulmonary emphysema. Heart size is normal. There is no pleural effusion. Liver and spleen appear normal. Bile ducts are not dilated. There are small hiatal hernia. There is n o evidence of pancreatic mass. There are clips from cholecystectomy. There is no adrenal mass. Kidneys have normal size and contour. There is mild fullness of the right r enal collecting system. I see no ureteral calculus. There is no retroperitoneal adenopathy. There is no free air. There are multiple gas-filled distended loops of small bowel in the mid abdomen. The dis halina small bowel is not dilated. I do not see a transition point. These measure up to 3.3 cm. There ar e multiple surgical clips in the pelvis. Bladder distends smoothly. I see no pelvic mass. There is a right lower quadrant colostomy or ileostomy. IMPRESSION: THERE IS CHRONIC SMALL BOWEL DILATION THAT IS IMPROVED COMPARED TO LAST CT SCAN. THIS IS CONSISTENT W ITH PARTIAL MECHANICAL OBSTRUCTION OR ILEUS. NO EVIDENCE OF RENAL STONE. RIGHT RENAL COLLECTING SYSTE M IS INCREASED SLIGHTLY COMPARED TO OLD EXAM OF UNCERTAIN SIGNIFICANCE. THIS COULD RELATE TO A RECENT LY PASSED STONE.
[2018-05-16 22:56] VITALS: BP 139/84; PULSE 112
== END 2018-05-16 22:56 | disposition home or self-care (01) ==
LOC: EC 17:44
DX: J44.1 Chronic obstructive pulmonary disease with (acute) exacerbation (principal); R11.2 Nausea with vomiting, unspecified; R19.7 Diarrhea, unspecified; R00.0 Tachycardia, unspecified; M79.7 Fibromyalgia; K21.9 Gastro-esophageal reflux disease without esophagitis; E78.5 Hyperlipidemia, unspecified; I10 Essential (primary) hypertension; M19.90 Unspecified osteoarthritis, unspecified site; Z87.442 Personal history of urinary calculi; Z87.891 Personal history of nicotine dependence; Z79.51 Long term (current) use of inhaled steroids; Z79.899 Other long term (current) drug therapy; Z91.041 Radiographic dye allergy status; Z88.6 Allergy status to analgesic agent; Z88.2 Allergy status to sulfonamides; Z88.8 Allergy status to other drugs, medicaments and biological substances; Z90.49 Acquired absence of other specified parts of digestive tract
CPT/HCPCS: 36415; 94640; 93005; 85379; 80053; 82150; 82550; 82553; 83605; 83690; 83735; 84484; 85025; 85610; 85730; 82272; 81001; 87040; 71046; 74018; 74176; 99285; 96374; 96361; J2270

== ENCOUNTER 2018-07-24 10:42 | Inpatient (IN) | payer BC ==
[2018-07-24] MEDS: PROPOFOL 1,000 MG in EMPTY BAG 1 BAG IV SCH ×2 (13:00→18:11)
[2018-07-24] MEDS ORDERED: LORazepam 2 MG/ML INJ IV PRN (13:18)
[2018-07-24] MEDS ORDERED: IPRATROPIUM-ALBUTEROL 3 ML NEB INHALATION PRN (13:18)
[2018-07-24] MEDS ORDERED: HYDROmorphone 1 MG/ML 1 ML SYRINGE IVP PRN ×2 (13:18)
[2018-07-24 13:24] LABS: Glucose,Whole Blood 156 mg/dL (75-99)
[2018-07-24] MEDS ORDERED: NOREPINEPHRINE 16 MG in SODIUM CHLORIDE 0.9% 250 ML IV SCH (13:30)
[2018-07-24] MEDS: DEXTROSE 5%-0.45% NACL 1,000 ML IV SCH (14:28)
[2018-07-24 14:34] LABS: Glucose,Whole Blood 170 mg/dL (75-99)
[2018-07-24] MEDS: INSULIN ASPART 100 UNIT/ML 1 ML 10 ML VIAL SQ SCH ×2 (14:36→21:40)
[2018-07-24] MEDS: IPRATROPIUM-ALBUTEROL 3 ML NEB INHALATION SCH ×3 (15:33→23:26)
[2018-07-24 16:10] LABS: Basophils % (A) 0 %; Eosinophils # (A) 0.3 k/uL (0-0.7); Eosinophils % (A) 2 %; HCT 37.8 % (34.0-46.0); HGB 12.2 gm/dL (11.4-16.0); Lymphocytes # (A) 0.7 k/uL (1.0-4.8); Lymphocytes % (A) 4 %; MCH 32.4 pg (25.0-35.0); MCHC 32.3 g/dL (31.0-37.0); MCV 100.4 fL (80.0-100.0); Macrocytosis Slight; Mean Platelet Volume 7.4; Monocytes # (A) 0.9 k/uL (0-1.0); Monocytes % (A) 5 %; Neutrophils # (A) 16.8 k/uL (1.3-7.7); Neutrophils % (A) 89 %; Platelet Count 197 k/uL (150-450); RBC 3.77 m/uL (3.80-5.40); RDW 14.6 % (11.5-15.5); WBC 18.8 k/uL (3.8-10.6)
[2018-07-24 16:30] LABS: Anion Gap 3 mmol/L; Blood Urea Nitrogen 36 mg/dL (7-17); Calcium 7.7 mg/dL (8.4-10.2); Carbon Dioxide 37 mmol/L (22-30); Chloride 103 mmol/L (98-107); Glucose 142 mg/dL (74-99); Potassium 3.9 mmol/L (3.5-5.1); Sodium 143 mmol/L (137-145)
--- NOTE | 2018-07-24 16:32 | P.HPIM ---
History of Present Illness H&P Date: 07/24/18 Chief Complaint: difficulty of breathing, Vent dependent respiratory failure this is a 58-year-old pleasant female patient of Dr. Heber James. She has underlying history of severe COPD, no myalgia, Crohn's disease with ileostomy, previous right-sided pneumothorax, chronic left upper lobe inflammatory opacification followed by Dr. Fidelia ellingtonal years secondary to scar tissue, bullous emphysemahas been prednisone dependent, FEV1 of 36%, follows with Dr. Mistry treated with the dorsa Brio and albuterol in the outpatient setting. Also required home O2, she was transferred from [facility], admitted there 07/18/2018 secondary to COPD exacerbation. Patient required mechanical ventilation on admission, requiring Nimbex and propofol , was having difficulty in weaning off parameters, and currently is on Versed, which she has tolerated better. She also requires gentle diuresis, with IV Lasix, currently on a negative fluid balance. She is on empiric antibiotics in the form of Rocephin and Zithromax. They're planning on PEG and trach placement, however with the large bullae that was noted on routine x-rays yesterday, showing at least 25% of her left side, concern for pneumothorax, they [facility] from [facility] to ICU transfer, uninterrupted mechanical ventilation during her transfers.patient is on levo fedSolu-Medrol 60 Lasix 20 mg every 8 hours. Patient has been off her Humira prior to admission. Review of Systems ROS unobtainable: due to mental status Cardiovascular: Reports rapid heart beat, Reports shortness of breath Respiratory: Reports dyspnea, Reports wheezing Gastrointestinal: Reports as per HPI Genitourinary: Reports as per HPI Menstruation: Reports as per HPI Musculoskeletal: Reports as per HPI Integumentary: Reports as per HPI Neurological: Reports as per HPI Psychiatric: Reports anhedonia Endocrine: Reports as per HPI Hematologic/Lymphatic: Reports as per HPI Allergic/Immunologic: Reports as per HPI Past Medical History Past Medical History: COPD, Fibromyalgia, GERD/Reflux, GI Bleed, Hyperlipidemia , Hypertension, Osteoarthritis (OA), Pneumonia, Syncope Additional Past Medical History / Comment(s): COPD, crohn's, bowel obstructions , lower GI bleeds, hiatal hernia, osteoporosis, arthritis multiple joints, seasonal allergies, right-sided pneumothorax x2; ventilator with this admit 07/24 - transfer [facility] r/t leelee History of Any Multi-Drug Resistant Organisms: None Reported Past Surgical History: Breast Surgery, Cholecystectomy, Hernia Repair, Hysterectomy, Orthopedic Surgery Additional Past Surgical History / Comment(s): Multiple bowel surgeries including total colectomy/ileostomy, ileostomy moved/repaired, R tube and R ovary removed due tectopic , total hysterectomy, leep procedure, laparoscopy for endometriosis, L breast lumpectomy-benign, r breast core bx- benign, EGD/colonoscopies. Right-sided Thora-vent placement May 09 and May 19. Eye surgery bilateral,arthroscopic knee surgery on he right due to ACL and Maniscal tear. Past Anesthesia/Blood Transfusion Reactions: No Reported Reaction Smoking Status: Former smoker - Past Family History Mother Family Medical History: Cancer, COPD, Hypertension Additional Family Medical History / Comment(s): Mother at age 83 from COPD and osteoarthritis and had skin cancer. Father Family Medical History: Cancer, CVA/TIA, Dementia, Diabetes Mellitus Additional Family Medical History / Comment(s): Father is 90yrs old. Brother(s) Family Medical History: Cancer Additional Family Medical History / Comment(s): Patient had 5 brothers and one of them from melanoma. Sister(s) History Unknown: Yes (mother disease at 83 from COPD with also arthritis skin cancer, father had cancer CVA dementia diabetes mellitus at age 90, 5 brothers one from melanoma, one sister who is healthy, no children) Family Medical History: No Reported History Additional Family Medical History / Comment(s): Patient has one sister. Patient has no kids. Medications and Allergies Home Medications Medication Instructions Recorded Confirmed Type Aclidinium [place] [Tudorza 400 mcg INHALATION RT-BID 06/21/14 07/24/18 History Pressair] Adalimumab [Humira Pen] 40 mg SQ TU 06/21/14 07/24/18 History Fluticasone/Vilanterol [Breo 1 puff INHALATION RT-DAILY 04/27/16 07/24/18 History Ellipta 100-25 Mcg Inhaler] Opium Tincture 0.8 mg PO QID 04/27/16 07/24/18 History Mercaptopurine [Purinethol] 50 mg PO BID 02/22/17 07/24/18 History busPIRone HCl [Buspar] 10 mg PO BID 05/09/17 07/24/18 History Atenolol 25 mg PO DAILY 05/20/17 07/24/18 History Latanoprost Ophth [Xalatan 0.005%] 1 drop BOTH EYES HS 05/21/17 07/24/18 History HYDROcodone/APAP 10-325MG [[place] 1 tab PO Q6HR PRN 06/24/17 07/24/18 History 10-325] Gabapentin [Neurontin] 300 mg PO TID 12/08/17 07/24/18 History Nystatin 100,000 Unit/ml Susp 500,000 unit PO QID PRN 05/16/18 07/24/18 History [Mycostatin Oral Susp] Albuterol Inhaler [Ventolin Hfa 1 puff INHALATION RT-DAILY 07/24/18 07/24/18 History Inhaler] Cholecalciferol (Vitamin D3) 2,000 unit PO DAILY 07/24/18 07/24/18 History [Vitamin D3] Clotrimazole/Betamethasone Dip 1 applic TOPICAL DAILY 07/24/18 07/24/18 History [Lotrisone Cream] Cyanocobalamin [Vitamin B-12 1,000 mcg SQ QMONTH 07/24/18 07/24/18 History Injection] Denosumab [Prolia] 60 mg SQ Q180D 07/24/18 07/24/18 History Dicyclomine [Bentyl] 10 mg PO TID 07/24/18 07/24/18 History Magnesium Oxide [Mag-Ox] 250 mg PO DAILY 07/24/18 07/24/18 History Meclizine [Antivert] 25 mg PO TID 07/24/18 07/24/18 History Melatonin 5 mg PO HS PRN 07/24/18 07/24/18 History Nystatin 100,000 Unit/gm Powd 1 applic TOPICAL BID 07/24/18 07/24/18 History [Mycostatin Powder] Ondansetron [Zofran] 4 mg PO Q6HR 07/24/18 07/24/18 History Allergies Allergy/AdvReac Type Severity Reaction Status Date / Time Iodinated Contrast- Oral and Allergy Anaphylaxis Verified 07/24/18 13:52 IV Dye pregabalin [From Lyrica] Allergy Unknown Verified 07/24/18 13:52 rofecoxib [From Vioxx] Allergy Unknown Verified 07/24/18 13:52 Sulfa (Sulfonamide Allergy Rash/Hives Verified 07/24/18 13:52 Antibiotics) aspirin AdvReac Internal Verified 07/24/18 13:52 Bleeding timolol [Timolol] AdvReac Nausea & Verified 07/24/18 13:52 Vomiting Physical Exam Vitals: Vital Signs Temp Pulse Resp BP Pulse Ox 07/24/18 15:42 89 07/24/18 15:36 92 07/24/18 15:00 89 22 98 07/24/18 14:30 85 16 98 07/24/18 14:00 93 16 99 07/24/18 13:30 97 16 99 07/24/18 13:00 108 H 24 97/69 99 07/24/18 12:50 116 H 20 97/69 98 07/24/18 12:40 98.3 F 112 H 16 89/61 Intake and Output 07/24/18 07/24/18 07/24/18 06:59 14:59 22:59 Intake Total 102 51 Output Total 575 35 Balance -473 16 Intake: IV 102 51 0.9NS Pressure Bag 12 6 Dextrose 5%-0.45% NaCl 1, 80 40 000 ml @ 40 mls/hr IV . Q24H MEENU Rx#:[id number] Midazolam HCl 100 mg In 10 5 Sodium Chloride 0.9% 80 ml @ 5 MG/HR 5 mls/hr IV .Q20H MEENU Rx#:[id number] Output: Urine 75 35 Stool 500 Other: Weight 56.6 kg ABP, PAP, CO, CI - Last 8 Hours Arterial Blood Pressure 110/63 Arterial Blood Pressure 107/63 Arterial Blood Pressure 101/65 Arterial Blood Pressure 100/61 Arterial Blood Pressure 103/61 Arterial Blood Pressure 122/73 sedated on vent without respiratory distress - Constitutional General appearance: average body habitus, no acute distress (pateint sedated and vented, ogt in palce vent tubes) - EENT Eyes: anicteric sclerae, EOMI, PERRLA, dentition normal, normal appearance ENT: NA/AT - Neck Neck: normal ROM Thyroid: bilateral: normal size, negative: enlarged - Respiratory Respiratory: bilateral: diminished, dullness, rhonchi, negative: rales, prolonged expiration, prolonged inspiration - Cardiovascular Rhythm: regular (tachycardic) Heart sounds: normal: S1, S2 Abnormal Heart Sounds: no systolic murmur, no diastolic murmur, no rub, no S3 Gallop, no S4 Gallop, no click, no other - Gastrointestinal ileostomy right side with small liquid output General gastrointestinal: no absent bowel sounds, no decreased bowel sounds, no distended, no hepatomegaly, no hyperactive bowel sounds, normal bowel sounds, no organomegaly, no rigid, no scaphoid, soft, no splenomegaly, no tenderness, no umbilical hernia, no ventral hernia - Genitourinary hawkins draining clear urine - Integumentary Integumentary: decreased turgor, normal - Neurologic sedated on vent Results CBC & Chem 7: 08/01/18 04:25 08/01/18 04:25 Labs: Abnormal Lab Results - Last 24 Hours (Table) 07/24/18 07/24/18 Range/Units 13:22 14:32 POC Glucose (mg/dL) 156 H 170 H (75-99) mg/dL Laboratory Results WBC 18.8 k/uL (3.8-10.6) H 07/24/18 15:50 RBC 3.77 m/uL (3.80-5.40) L 07/24/18 15:50 Hgb 12.2 gm/dL (11.4-16.0) 07/24/18 15:50 Hct 37.8 % (34.0-46.0) 07/24/18 15:50 MCV 100.4 fL (80.0-100.0) H 07/24/18 15:50 MCH 32.4 pg (25.0-35.0) 07/24/18 15:50 MCHC 32.3 g/dL (31.0-37.0) 07/24/18 15:50 RDW 14.6 % (11.5-15.5) 07/24/18 15:50 Plt Count 197 k/uL (150-450) 07/24/18 15:50 Neutrophils % 89 % 07/24/18 15:50 Lymphocytes % 4 % 07/24/18 15:50 Monocytes % 5 % 07/24/18 15:50 Eosinophils % 2 % 07/24/18 15:50 Basophils % 0 % 07/24/18 15:50 Neutrophils # 16.8 k/uL (1.3-7.7) H 07/24/18 15:50 Lymphocytes # 0.7 k/uL (1.0-4.8) L 07/24/18 15:50 Monocytes # 0.9 k/uL (0-1.0) 07/24/18 15:50 Eosinophils # 0.3 k/uL (0-0.7) 07/24/18 15:50 Basophils # 0.0 k/uL (0-0.2) 07/24/18 15:50 Macrocytosis Slight 07/24/18 15:50 POC Glucose (mg/dL) 170 mg/dL (75-99) H 07/24/18 14:32 POC Glu Information Services Manager ID , Carmelina 07/24/18 14:32 Thrombosis Risk Factor Assmnt - DVT/VTE Prophylaxis DVT/VTE Prophylaxis: Pharmacologic Prophylaxis ordered, Mechanical Prophylaxis ordered - Choose All That Apply Each Factor Represents 1 point: Age 41-60 years, Medical pt on bed rest Each Risk Factor Represents 2 Points: Central venous access, Patient confined to bed Thrombosis Risk Factor Assessment Total Risk Factor Score: 6 Thrombosis Risk Factor Assessment Level: High Risk Assessment and Plan Plan: 1.severe COPD exacerbation end stage with recent fev1 36% , with vent-dependent respiratory failure, acute hypoxemic respiratory failure, presenting with sepsis with acute respiratory distress, requiring mechanical ventilation from transferred to [facility] secondary to large bullae against pneumothorax left side. CT scan performed at [facility] showed lung tissue, concern more of large bullae. Patient to be seen by Dr. Meza from pulmonary medicine for critical care medicine and mechanical ventilation, also to be seen by from cardiothoracic surgery. Continue an IV steroids, mechanical ventilation, levo fed for sepsis with hypotension, nebulized albuterol Atrovent. OGT for feedings 2. Sepsis with septic shock kmost likely secondary to pneumonia, currently on Levophed,on Rocephin and Zithromax 3. Diastolic CHF, with slight fluid excess, patient is currently receiving IV Lasix 20 mg every 8 hours, maintaining an adequate urine output, I's and O's, most likely patient would have central pressures while in ICU 4. Sinus tachycardia, on metoprolol 25 mg 3 times a day,was seen by cardiology at [facility] 5. History of Crohn's, has ileostomy on the right side, patient currently off Humira can use Lomotil when necessary, 6. Anxiety, currently sedated, was on BuSpar prior to admission 7. Fibromyalgia with neuropathy, was on Blue Diamond 8. moderate protein christiano malnutrition, OGT feedings, with rob. rate at nutritional needs. nutrition consult 9. ileostomy, currently with output DVT prophylaxis Heparin GI prophylaxis Protonix
--- NOTE | 2018-07-24 16:49 | P.GSCN ---
History of Present Illness Consult date: 07/24/18 Reason for Consult: pulmonary bulla Requesting physician: Michael Meza History of present illness: This is a 58-year-old female patient who is followed by Dr. James primary care and Dr. Mistry from pulmonary medicine on an outpatient basis for severe end- stage COPD with home oxygen use and a previous FEV1 completed which showed a predicted value of 36%. She also has a past medical history significant for prednisone dependent, Crohn's disease with ostomy, fibromyalgia,osteoarthritis, hypertension,hyperlipidemia, hypothyroidism, anxiety, history of multiple recurrent episodes of spontaneous pneumo thorax requiring Thoravent placement, and a history of tobacco dependence which she quit in April 2018. subsequently she recently presented to the emergency department at [facility] with complaints of progressive shortness of breath and an acute exacerbation of COPD. According to her chart she denied any complaints of abdominal pain, nausea, fevers or lightheadedness. A chest x-ray was completed in the emergency department at [facility] which showed bullous emphysema with no pasty possible masses in her both upper lobes. For further evaluation a CT scan of her chest was completed. The patient was subsequently admitted to the hospital for further evaluation and treatment. She was initially placed on BiPAP support, although she continued to deteriorate and required intubation with mechanical ventilator support. Subsequently due to the patient's computed tomography scan findings and concern for pneumothorax the patient was was transferred to [facility] for evaluation by Dr. Lyons from cardiothoracic surgery. Review of Systems A 14 point review of system was completed and was negative except as mentioned in the HPI. Past Medical History Past Medical History: COPD, Fibromyalgia, GERD/Reflux, GI Bleed, Hyperlipidemia , Hypertension, Osteoarthritis (OA), Pneumonia, Syncope Additional Past Medical History / Comment(s): COPD, crohn's, bowel obstructions , lower GI bleeds, hiatal hernia, osteoporosis, arthritis multiple joints, seasonal allergies, right-sided pneumothorax x2; ventilator with this admit 07/24 - transfer from [facility] r/t leelee History of Any Multi-Drug Resistant Organisms: None Reported Past Surgical History: Breast Surgery, Cholecystectomy, Hernia Repair, Hysterectomy, Orthopedic Surgery Additional Past Surgical History / Comment(s): Multiple bowel surgeries including total colectomy/ileostomy, ileostomy moved/repaired, R tube and R ovary removed due tectopic , total hysterectomy, leep procedure, laparoscopy for endometriosis, L breast lumpectomy-benign, r breast core bx- benign, EGD/colonoscopies. Right-sided Thora-vent placement May 09 and May 19. Eye surgery bilateral,arthroscopic knee surgery on he right due to ACL and Maniscal tear. Past Anesthesia/Blood Transfusion Reactions: No Reported Reaction Past Psychological History: Anxiety Smoking Status: Former smoker (quit in April 2018) Past Alcohol Use History: Unable to Obtain Past Drug Use History: Unable to Obtain - Past Family History Mother Family Medical History: Cancer, COPD, Hypertension Additional Family Medical History / Comment(s): Mother at age 83 from COPD and osteoarthritis and had skin cancer. Father Family Medical History: Cancer, CVA/TIA, Dementia, Diabetes Mellitus Additional Family Medical History / Comment(s): Father is 90yrs old. Brother(s) Family Medical History: Cancer Additional Family Medical History / Comment(s): Patient had 5 brothers and one of them from melanoma. Sister(s) Family Medical History: No Reported History Additional Family Medical History / Comment(s): Patient has one sister. Patient has no kids. Medications and Allergies Home Medications Medication Instructions Recorded Confirmed Type Aclidinium [place] [Tudorza 400 mcg INHALATION RT-BID 06/21/14 07/24/18 History Pressair] Adalimumab [Humira Pen] 40 mg SQ TU 06/21/14 07/24/18 History Fluticasone/Vilanterol [Breo 1 puff INHALATION RT-DAILY 04/27/16 07/24/18 History Ellipta 100-25 Mcg Inhaler] Opium Tincture 0.8 mg PO QID 04/27/16 07/24/18 History Mercaptopurine [Purinethol] 50 mg PO BID 02/22/17 07/24/18 History busPIRone HCl [Buspar] 10 mg PO BID 05/09/17 07/24/18 History Atenolol 25 mg PO DAILY 05/20/17 07/24/18 History Latanoprost Ophth [Xalatan 0.005%] 1 drop BOTH EYES HS 05/21/17 07/24/18 History HYDROcodone/APAP 10-325MG [[place] 1 tab PO Q6HR PRN 06/24/17 07/24/18 History 10-325] Gabapentin [Neurontin] 300 mg PO TID 12/08/17 07/24/18 History Nystatin 100,000 Unit/ml Susp 500,000 unit PO QID PRN 05/16/18 07/24/18 History [Mycostatin Oral Susp] Albuterol Inhaler [Ventolin Hfa 1 puff INHALATION RT-DAILY 07/24/18 07/24/18 History Inhaler] Cholecalciferol (Vitamin D3) 2,000 unit PO DAILY 07/24/18 07/24/18 History [Vitamin D3] Clotrimazole/Betamethasone Dip 1 applic TOPICAL DAILY 07/24/18 07/24/18 History [Lotrisone Cream] Cyanocobalamin [Vitamin B-12 1,000 mcg SQ QMONTH 07/24/18 07/24/18 History Injection] Denosumab [Prolia] 60 mg SQ Q180D 07/24/18 07/24/18 History Dicyclomine [Bentyl] 10 mg PO TID 07/24/18 07/24/18 History Magnesium Oxide [Mag-Ox] 250 mg PO DAILY 07/24/18 07/24/18 History Meclizine [Antivert] 25 mg PO TID 07/24/18 07/24/18 History Melatonin 5 mg PO HS PRN 07/24/18 07/24/18 History Nystatin 100,000 Unit/gm Powd 1 applic TOPICAL BID 07/24/18 07/24/18 History [Mycostatin Powder] Ondansetron [Zofran] 4 mg PO Q6HR 07/24/18 07/24/18 History Allergies Allergy/AdvReac Type Severity Reaction Status Date / Time Iodinated Contrast- Oral and Allergy Anaphylaxis Verified 07/24/18 13:52 IV Dye pregabalin [From Lyrica] Allergy Unknown Verified 07/24/18 13:52 rofecoxib [From Vioxx] Allergy Unknown Verified 07/24/18 13:52 Sulfa (Sulfonamide Allergy Rash/Hives Verified 07/24/18 13:52 Antibiotics) aspirin AdvReac Internal Verified 07/24/18 13:52 Bleeding timolol [Timolol] AdvReac Nausea & Verified 07/24/18 13:52 Vomiting Surgical - Exam Vital Signs Temp Pulse Resp BP 98.3 F 112 H 16 89/61 07/24/18 12:40 07/24/18 12:40 07/24/18 12:40 07/24/18 12:40 - General The patient is currently sedated on propofol and Versed drips. Not following any verbal commands at this time. well developed, well nourished, no distress, chronically ill - Eyes PERRL, normal ocular movement - ENT #7 ET tube secured at 23 cm at the lip. normal pinna, normal nares, normal mucosa, no hearing loss, no congestion - Respiratory lungs sounds essentially clear throughout, diminished her bilateral bases. Respirations are symmetrical and long labored with mechanical ventilator support. Current ventilator settings are as follows: AC 16, TV 400, FiO2 45%, PEEP of 5. Oxygen saturations are 98% on current mechanical ventilator support. #[address] and secured at 23 cm at the lip. - Cardiovascular regular rhythm and rate. S1 and S2 present, negative for S3, gallop or murmur. Bedside telemetry showing normal sinus rhythm heart rate 86. No edema is present. - Abdomen abdomen is soft, nondistended. No organomegaly. No guarding or rigidity. Active bowel sounds to all 4 abdominal quadrants. OG tube in place to low intermittent wall suction. Right lower quadrant abdominal ostomy in place. - Genitourinary Ribera catheter for accurate I&O. Clear yellow urine draining. - Integumentary no rash, no growths, no abnormal pigmentation - Neurologic sedated on Versed and propofol drip. Results - Labs Abnormal Lab Results - Last 24 Hours (Table) 07/24/18 07/24/18 Range/Units 13:22 14:32 POC Glucose (mg/dL) 156 H 170 H (75-99) mg/dL - Imaging CT scan - chest: image reviewed Assessment and Plan (1) Hypertension Current Visit: Yes Status: Acute Code(s): I10 - ESSENTIAL (PRIMARY) HYPERTENSION SNOMED Code(s): 83411751 (2) Hyperlipidemia Current Visit: Yes Status: Acute Code(s): E78.5 - HYPERLIPIDEMIA, UNSPECIFIED SNOMED Code(s): 79871194 (3) Lung bullae Current Visit: Yes Status: Acute Code(s): J43.9 - EMPHYSEMA, UNSPECIFIED SNOMED Code(s): 860727873 (4) Anxiety Current Visit: Yes Status: Acute Code(s): F41.9 - ANXIETY DISORDER, UNSPECIFIED SNOMED Code(s): 29853198 (5) Diastolic CHF Current Visit: Yes Status: Acute Code(s): I50.30 - UNSPECIFIED DIASTOLIC ( CONGESTIVE) HEART FAILURE SNOMED Code(s): 543385495 (6) Ventilator dependence Current Visit: Yes Status: Acute Code(s): Z99.11 - DEPENDENCE ON RESPIRATOR [VENTILATOR] STATUS SNOMED Code(s): 888602856 (7) Fibromyalgia Current Visit: Yes Status: Acute Code(s): M79.7 - FIBROMYALGIA SNOMED Code (s): 068931654 (8) Acute exacerbation of chronic obstructive airways disease Current Visit: No Status: Acute Code(s): J44.1 - CHRONIC OBSTRUCTIVE PULMONARY DISEASE W (ACUTE) EXACERBATION SNOMED Code(s): 185630614 (9) Crohn's ileitis Current Visit: No Status: Acute Code(s): K50.00 - CROHN'S DISEASE OF SMALL INTESTINE WITHOUT COMPLICATIONS SNOMED Code(s): 75195867 (10) Tobacco dependence in remission Current Visit: No Status: Acute Code(s): F17.201 - NICOTINE DEPENDENCE, UNSPECIFIED, IN REMISSION SNOMED Code(s): 711430323 Plan: The patient was seen and examined. Her chart and diagnostics were reviewed. She was seen and examined by Dr. Lyons from cardiothoracic surgery. No pneumothorax appreciated on computed tomography scan films. At this time no plan for surgical intervention, bullectomy. Continue medical management, GI and DVT prophylaxis. Pulmonary management per Dr. Meza's recommendations. General surgery has been consulted for possible tracheostomy and PEG tube placement on , 07/26/2018. Thank you Dr. Meza for this consult and we look for to working with you in the care of your patient. Time with Patient: Greater than 30
--- NOTE | 2018-07-24 16:50 | P.GSCN ---
History of Present Illness Consult date: 07/24/18 Reason for Consult: Respiratory failure History of present illness: We were consulted see this patient while she was still at [facility] ICU. Prior to my evaluation however she was transferred to our ICU where cardiothoracic surgery could evaluate this patient. She has a history of respiratory failure. She has severe bullae bilaterally. No intervention planned by thoracic surgery at this time. We were consulted for tracheostomy and PEG tube placement. Patient is not on home oxygen. She has failed weaning trials. She has a history of severe COPD. FEV1 of 36%. She has had previous pneumothorax in the past. She also has a ileostomy for Crohn's disease. No family here to discuss whether she has had previous feeding tubes. Review of Systems ROS unobtainable: due to endotracheal tube Past Medical History Past Medical History: COPD, Fibromyalgia, GERD/Reflux, GI Bleed, Hyperlipidemia , Hypertension, Osteoarthritis (OA), Pneumonia, Syncope Additional Past Medical History / Comment(s): COPD, crohn's, bowel obstructions , lower GI bleeds, hiatal hernia, osteoporosis, arthritis multiple joints, seasonal allergies, right-sided pneumothorax x2; ventilator with this admit 07/24 - transfer from [facility] r/t bollas History of Any Multi-Drug Resistant Organisms: None Reported Past Surgical History: Breast Surgery, Cholecystectomy, Hernia Repair, Hysterectomy, Orthopedic Surgery Additional Past Surgical History / Comment(s): Multiple bowel surgeries including total colectomy/ileostomy, ileostomy moved/repaired, R tube and R ovary removed due tectopic , total hysterectomy, leep procedure, laparoscopy for endometriosis, L breast lumpectomy-benign, r breast core bx- benign, EGD/colonoscopies. Right-sided Thora-vent placement May 09 and May 19. Eye surgery bilateral,arthroscopic knee surgery on he right due to ACL and Maniscal tear. Past Anesthesia/Blood Transfusion Reactions: No Reported Reaction Past Psychological History: Anxiety Smoking Status: Former smoker (quit in April 2018) Past Alcohol Use History: Unable to Obtain Past Drug Use History: Unable to Obtain - Past Family History Mother Family Medical History: Cancer, COPD, Hypertension Additional Family Medical History / Comment(s): Mother at age 83 from COPD and osteoarthritis and had skin cancer. Father Family Medical History: Cancer, CVA/TIA, Dementia, Diabetes Mellitus Additional Family Medical History / Comment(s): Father is 90yrs old. Brother(s) Family Medical History: Cancer Additional Family Medical History / Comment(s): Patient had 5 brothers and one of them from melanoma. Sister(s) History Unknown: Yes (mother disease at 83 from COPD with also arthritis skin cancer, father had cancer CVA dementia diabetes mellitus at age 90, 5 brothers one from melanoma, one sister who is healthy, no children) Family Medical History: No Reported History Additional Family Medical History / Comment(s): Patient has one sister. Patient has no kids. Medications and Allergies Home Medications Medication Instructions Recorded Confirmed Type Aclidinium [place] [Tudorza 400 mcg INHALATION RT-BID 06/21/14 07/24/18 History Pressair] Adalimumab [Humira Pen] 40 mg SQ TU 06/21/14 07/24/18 History Fluticasone/Vilanterol [Breo 1 puff INHALATION RT-DAILY 04/27/16 07/24/18 History Ellipta 100-25 Mcg Inhaler] Opium Tincture 0.8 mg PO QID 04/27/16 07/24/18 History Mercaptopurine [Purinethol] 50 mg PO BID 02/22/17 07/24/18 History busPIRone HCl [Buspar] 10 mg PO BID 05/09/17 07/24/18 History Atenolol 25 mg PO DAILY 05/20/17 07/24/18 History Latanoprost Ophth [Xalatan 0.005%] 1 drop BOTH EYES HS 05/21/17 07/24/18 History HYDROcodone/APAP 10-325MG [[place] 1 tab PO Q6HR PRN 06/24/17 07/24/18 History 10-325] Gabapentin [Neurontin] 300 mg PO TID 12/08/17 07/24/18 History Nystatin 100,000 Unit/ml Susp 500,000 unit PO QID PRN 05/16/18 07/24/18 History [Mycostatin Oral Susp] Albuterol Inhaler [Ventolin Hfa 1 puff INHALATION RT-DAILY 07/24/18 07/24/18 History Inhaler] Cholecalciferol (Vitamin D3) 2,000 unit PO DAILY 07/24/18 07/24/18 History [Vitamin D3] Clotrimazole/Betamethasone Dip 1 applic TOPICAL DAILY 07/24/18 07/24/18 History [Lotrisone Cream] Cyanocobalamin [Vitamin B-12 1,000 mcg SQ QMONTH 07/24/18 07/24/18 History Injection] Denosumab [Prolia] 60 mg SQ Q180D 07/24/18 07/24/18 History Dicyclomine [Bentyl] 10 mg PO TID 07/24/18 07/24/18 History Magnesium Oxide [Mag-Ox] 250 mg PO DAILY 07/24/18 07/24/18 History Meclizine [Antivert] 25 mg PO TID 07/24/18 07/24/18 History Melatonin 5 mg PO HS PRN 07/24/18 07/24/18 History Nystatin 100,000 Unit/gm Powd 1 applic TOPICAL BID 07/24/18 07/24/18 History [Mycostatin Powder] Ondansetron [Zofran] 4 mg PO Q6HR 07/24/18 07/24/18 History Allergies Allergy/AdvReac Type Severity Reaction Status Date / Time Iodinated Contrast- Oral and Allergy Anaphylaxis Verified 07/24/18 13:52 IV Dye pregabalin [From Lyrica] Allergy Unknown Verified 07/24/18 13:52 rofecoxib [From Vioxx] Allergy Unknown Verified 07/24/18 13:52 Sulfa (Sulfonamide Allergy Rash/Hives Verified 07/24/18 13:52 Antibiotics) aspirin AdvReac Internal Verified 07/24/18 13:52 Bleeding timolol [Timolol] AdvReac Nausea & Verified 07/24/18 13:52 Vomiting Surgical - Exam Vital Signs Temp Pulse Resp BP 98.3 F 112 H 16 89/61 07/24/18 12:40 07/24/18 12:40 07/24/18 12:40 07/24/18 12:40 Physical exam: General: Well-developed, well-nourished HEENT: Normocephalic, sclerae nonicteric, ventilated Abdomen: Nontender, nondistended, previous scars, right lower quadrant ostomy Extremities: Mild edema Neuro: Intubated Results - Labs 07/24/18 15:50 07/24/18 15:50 Abnormal Lab Results - Last 24 Hours (Table) 07/24/18 07/24/18 07/24/18 Range/Units 13:22 14:32 15:50 WBC (3.8-10.6) k/uL RBC (3.80-5.40) m/uL MCV (80.0-100.0) fL Neutrophils # (1.3-7.7) k/uL Lymphocytes # (1.0-4.8) k/uL Carbon Dioxide 37 H (22-30) mmol/L BUN 36 H (7-17) mg/dL Creatinine 0.45 L (0.52-1.04) mg/dL Glucose 142 H (74-99) mg/dL POC Glucose (mg/dL) 156 H 170 H (75-99) mg/dL Calcium 7.7 L (8.4-10.2) mg/dL 07/24/18 Range/Units 15:50 WBC 18.8 H (3.8-10.6) k/uL RBC 3.77 L (3.80-5.40) m/uL MCV 100.4 H (80.0-100.0) fL Neutrophils # 16.8 H (1.3-7.7) k/uL Lymphocytes # 0.7 L (1.0-4.8) k/uL Carbon Dioxide (22-30) mmol/L BUN (7-17) mg/dL Creatinine (0.52-1.04) mg/dL Glucose (74-99) mg/dL POC Glucose (mg/dL) (75-99) mg/dL Calcium (8.4-10.2) mg/dL Diabetes panel 07/24/18 Range/Units 15:50 Sodium 143 (137-145) mmol/L Potassium 3.9 (3.5-5.1) mmol/L Chloride 103 (98-107) mmol/L Carbon Dioxide 37 H (22-30) mmol/L BUN 36 H (7-17) mg/dL Creatinine 0.45 L (0.52-1.04) mg/dL Glucose 142 H (74-99) mg/dL Calcium 7.7 L (8.4-10.2) mg/dL Calcium panel 07/24/18 Range/Units 15:50 Calcium 7.7 L (8.4-10.2) mg/dL Pituitary panel 07/24/18 Range/Units 15:50 Sodium 143 (137-145) mmol/L Potassium 3.9 (3.5-5.1) mmol/L Chloride 103 (98-107) mmol/L Carbon Dioxide 37 H (22-30) mmol/L BUN 36 H (7-17) mg/dL Creatinine 0.45 L (0.52-1.04) mg/dL Glucose 142 H (74-99) mg/dL Calcium 7.7 L (8.4-10.2) mg/dL Adrenal panel 07/24/18 Range/Units 15:50 Sodium 143 (137-145) mmol/L Potassium 3.9 (3.5-5.1) mmol/L Chloride 103 (98-107) mmol/L Carbon Dioxide 37 H (22-30) mmol/L BUN 36 H (7-17) mg/dL Creatinine 0.45 L (0.52-1.04) mg/dL Glucose 142 H (74-99) mg/dL Calcium 7.7 L (8.4-10.2) mg/dL Assessment and Plan Assessment: Impression: Respiratory failure and protein calorie malnutrition Plan: Will discuss with family risks and benefits of tracheostomy and PEG tube placement. Meanwhile continue weaning as tolerated. Will tentatively schedule trach and PEG for .
[2018-07-24] MEDS: METOPROLOL TARTRATE 25 MG TAB PO SCH ×2 (16:52→21:40)
[2018-07-24] MEDS: FUROSEMIDE 10 MG/ML 2 ML VIAL IV SCH ×2 (16:55→23:58)
[2018-07-24] MEDS: methylPREDNISolone SOD SUCCI 125 MG/2 ML VIAL IV SCH ×2 (17:02→23:57)
[2018-07-24] MEDS: BUDESONIDE 1 MG/2 ML NEBU INHALATION SCH (19:30)
[2018-07-24 21:27] LABS: Glucose,Whole Blood 181 mg/dL (75-99)
[2018-07-24] MEDS: HEPARIN SODIUM,PORCINE 5,000 UNIT/ML 1 ML VIAL SQ SCH (21:40)
[2018-07-24] MEDS: CHLORHEXIDINE GLUCONATE 15 ML CUP MUCOUS MEM SCH (21:40)
[2018-07-24] MEDS: MIDAZOLAM HCL 100 MG in SODIUM CHLORIDE 0.9% 80 ML IV SCH (23:57)
[2018-07-25 02:26] LABS: Glucose,Whole Blood 156 mg/dL (75-99)
[2018-07-25] MEDS: INSULIN ASPART 100 UNIT/ML 1 ML 10 ML VIAL SQ SCH ×3 (02:26→18:22)
[2018-07-25] MEDS: IPRATROPIUM-ALBUTEROL 3 ML NEB INHALATION SCH ×6 (03:58→23:44)
[2018-07-25 04:36] LABS: Basophils % (A) 0 %; Eosinophils # (A) 0.1 k/uL (0-0.7); Eosinophils % (A) 1 %; HCT 38.5 % (34.0-46.0); HGB 12.2 gm/dL (11.4-16.0); Lymphocytes # (A) 0.5 k/uL (1.0-4.8); Lymphocytes % (A) 3 %; MCH 31.9 pg (25.0-35.0); MCHC 31.6 g/dL (31.0-37.0); Macrocytosis Slight; Mean Platelet Volume 7.3; Monocytes # (A) 0.8 k/uL (0-1.0); Monocytes % (A) 5 %; Neutrophils % (A) 91 %; Platelet Count 173 k/uL (150-450); RBC 3.81 m/uL (3.80-5.40); RDW 14.6 % (11.5-15.5); WBC 16.4 k/uL (3.8-10.6)
[2018-07-25 04:39] LABS: INR 1.1 (<1.2); Prothrombin Time 10.4 sec (9.0-12.0)
[2018-07-25 04:56] LABS: ABG Base Excess 18.2 mmol/L; ABG Oxygen Saturation 97.7 % (94-97); ABG PCO2 47 mmHg (35-45); ABG PH 7.55 (7.35-7.45); ABG PO2 82 mmHg (83-108); ABG TCO2 42 mmol/L (19-24)
[2018-07-25 04:58] LABS: ABG HCO3 41 mmol/L (21-25)
[2018-07-25 05:01] LABS: Blood Urea Nitrogen 33 mg/dL (7-17); Calcium 8.1 mg/dL (8.4-10.2); Chloride 98 mmol/L (98-107); Glucose 155 mg/dL (74-99); Magnesium 1.9 mg/dL (1.6-2.3); Phosphorus 3.2 mg/dL (2.5-4.5); Potassium 3.8 mmol/L (3.5-5.1); Sodium 140 mmol/L (137-145)
[2018-07-25 05:08] LABS: Anion Gap 6 mmol/L
[2018-07-25 05:09] LABS: Carbon Dioxide 36 mmol/L (22-30)
--- NOTE | 2018-07-25 07:10 | XR ---
EXAMINATION TYPE: XR chest 1V portable DATE OF EXAM: 07/25/2018 COMPARISON: 05/16/2018 HISTORY: SOB, Follow Up FINDINGS: Indwelling tubes and catheters are unchanged. Patchy left upper lobe density persists. Hyperinflation noted. Healed right-sided rib fractures. Stable appearance of the cardio-mediastinal structures at this time. Pleural effusion unchanged. IMPRESSION: 1. Stable portable chest. Clinical correlation and follow up until resolution is recommended.
[2018-07-25 07:14] LABS: Glucose,Whole Blood 153 mg/dL (75-99)
[2018-07-25] MEDS: BUDESONIDE 1 MG/2 ML NEBU INHALATION SCH ×2 (07:20→20:06)
[2018-07-25] MEDS: methylPREDNISolone SOD SUCCI 125 MG/2 ML VIAL IV SCH ×3 (07:34→18:23)
[2018-07-25] MEDS ORDERED: Potassium Replacement Protocol 1 EACH MISC MISCELLANE PRN (07:41)
[2018-07-25] MEDS ORDERED: Magnesium Replacement Protocol 1 EACH MISC MISCELLANE PRN (07:41)
[2018-07-25] MEDS: PROPOFOL 1,000 MG in EMPTY BAG 1 BAG IV SCH ×2 (07:55→20:09)
[2018-07-25] MEDS: POTASSIUM CHLORIDE 10 MEQ in WATER FOR INJECTION 1 100ML.BAG IVPB SCH ×2 (08:10→10:16)
[2018-07-25] MEDS: MAGNESIUM SULFATE-D5W PMX 1 GM in DEXTROSE/WATER 1 100ML.BAG IVPB SCH ×2 (08:10→10:15)
[2018-07-25] MEDS: PANTOPRAZOLE 40 MG/10 ML VIAL IVP SCH (08:11)
[2018-07-25] MEDS: CHLORHEXIDINE GLUCONATE 15 ML CUP MUCOUS MEM SCH ×2 (08:14→21:24)
[2018-07-25] MEDS: HEPARIN SODIUM,PORCINE 5,000 UNIT/ML 1 ML VIAL SQ SCH ×2 (08:14→21:24)
[2018-07-25] MEDS: AZITHROMYCIN 500 MG in SODIUM CHLORIDE 0.9% 250 ML IVPB SCH (08:14)
[2018-07-25] MEDS ORDERED: SODIUM CHLORIDE 0.9% 1,000 ML IV ONE (09:17)
--- NOTE | 2018-07-25 09:17 | P.PN ---
Subjective Progress Note Date: 07/25/18 Principal diagnosis: Acute hypercapnic and hypoxic rest or a failure, secondary to COPD This is a 58-year-old white female patient who was transferred from [facility] on 07/24/2018 where she presented with acute on chronic hypercapnic and hypoxic restaurant failure secondary to acute exacerbation of chronic obstructive pulmonary disease she required intubation and ventilation. She has a history of severe end-stage chronic obstructive pulmonary disease with a baseline FEV1 of 36% of predicted. She follows with Dr. Mistry in the pulmonary office, and her maintenance inhalers include 2 doors a, breathing a lot, and albuterol in the outpatient setting. She is on home oxygen. 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 She is prednisone dependent, and has had multiple episodes of COPD exacerbation. Chest x-ray was completed at the the [facility] and there appeared to be a left-sided loculated pneumothorax, computed tomography scan was ordered, and revealed evidence of bullous emphysema. Patient was transferred to [facility] with a consultation to cardiothoracic surgery. This morning she remains intubated, on mechanical ventilation, her current vent settings are assist-control mode the rate of 16, Tylenol 400, FiO2 45% and PEEP of 5. Maintenance IV fluids include D5 half- normal saline at a rate of 40 ML per hour, Versed is 55 mg per hour, Diprivan is 40 mics per kilo, per minute, levofed is at 2 mics per minute. This morning his blood gases show pO2 of 82, pCO2 47, and pH of 7.54. Patient has been diuresed, she was on Lasix 20 mg 3 times daily, and this morning's labs show a component of prerenal azotemia, with a BUN of 33, creatinine 0.56. We will discontinue the Lasix for now. The VBC 16.4, hemoglobin is 12.2, platelet count is 173, INR is 1.1. Sodium is 140, potassium is 3.8, and patient is receiving potassium replacements. Magnesium is 1.9. She is sedated, on mechanical ventilation. She was on Nimbex drip at [facility], which had been discontinued prior to transfer. Lung sounds are clear to auscultation, no significant secretions from the ET tube. Patient is afebrile. Today's chest x-ray showed patchy left upper lobe density, hyperinflation. She is covered with azithromycin and ceftriaxone, she is getting IV Solu-Medrol , and she is on nebulized bronchodilators. Objective - Vital Signs Vital signs: Vital Signs Temp 97.9 F 07/25/18 08:00 Pulse 100 07/25/18 08:00 Resp 16 07/25/18 08:00 BP 128/75 07/25/18 04:00 Pulse Ox 95 07/25/18 08:00 Intake & Output 07/24/18 07/25/18 07/25/18 18:59 06:59 18:59 Intake Total 420.999 802.949 53.648 Output Total 1245 1860 75 Balance -824.001 -1057.051 -21.352 Weight 56.6 kg 58.2 kg 58.2 kg Intake: IV 306 654 51 0.9NS Pressure Bag 36 54 6 Dextrose 5%-0.45% NaCl 1, 240 540 40 000 ml @ 40 mls/hr IV . Q24H MEENU Rx#:[id number] Midazolam HCl 100 mg In 30 60 5 Sodium Chloride 0.9% 80 ml @ 5 MG/HR 5 mls/hr IV .Q20H MEENU Rx#:[id number] Intake, IV Titration 114.999 148.949 2.648 Amount Norepinephrine 16 mg In 29.054 48.949 Sodium Chloride 0.9% 250 ml @ Titrate IV .Q0M MEENU Rx#:[id number] Propofol 1,000 mg In 85.945 100 2.648 Empty Bag 1 bag @ Titrate IV .Q0M MEENU Rx#: [id number] Output: Urine 745 1860 75 Stool 500 Other: Voiding Method Indwelling Catheter Indwelling Catheter ABP, PAP, CO, CI - Last Documented Arterial Blood Pressure 109/66 - Exam GENERAL EXAM: Alert, pleasant, 58-year-old white female, intubated, on mechanical ventilator, comfortable in no apparent distress. HEAD: Normocephalic/atraumatic. EYES: Normal reaction of pupils, equal size. Conjunctiva pink, sclera white. NOSE: Clear with pink turbinates. THROAT: No erythema or exudates. NECK: No masses, no JVD, no thyroid enlargement, no adenopathy. CHEST: No chest wall deformity. Symmetrical expansion. LUNGS: Equal air entry with no crackles, wheeze, rhonchi or dullness. CVS: Regular rate and rhythm, normal S1 and S2, no gallops, no murmurs, no rubs ABDOMEN: Soft, nontender. Patient has a right sided colostomy with liquid output. No hepatosplenomegaly, normal bowel sounds, no guarding or rigidity. EXTREMITIES: No clubbing, no edema, no cyanosis, 2+ pulses and upper and lower extremities. MUSCULOSKELETAL: Muscle strength and tone normal. SPINE: No scoliosis or deformity SKIN: No rashes CENTRAL NERVOUS SYSTEM: Alert and oriented -3. No focal deficits, tone is normal in all 4 extremities. PSYCHIATRIC: Alert and oriented -3. Appropriate affect. Intact judgment and insight. - Labs CBC & Chem 7: 07/25/18 04:20 07/25/18 04:20 Labs: Abnormal Lab Results - Last 24 Hours (Table) 07/24/18 07/24/18 07/24/18 Range/Units 13:22 14:32 15:50 WBC (3.8-10.6) k/uL RBC (3.80-5.40) m/uL MCV (80.0-100.0) fL Neutrophils # (1.3-7.7) k/uL Lymphocytes # (1.0-4.8) k/uL ABG pH (7.35-7.45) ABG pCO2 (35-45) mmHg ABG pO2 (83-108) mmHg ABG HCO3 (21-25) mmol/L ABG Total CO2 (19-24) mmol/L ABG O2 Saturation (94-97) % Carbon Dioxide 37 H (22-30) mmol/L BUN 36 H (7-17) mg/dL Creatinine 0.45 L (0.52-1.04) mg/dL Glucose 142 H (74-99) mg/dL POC Glucose (mg/dL) 156 H 170 H (75-99) mg/dL Calcium 7.7 L (8.4-10.2) mg/dL 07/24/18 07/24/18 07/25/18 Range/Units 15:50 21:26 02:23 WBC 18.8 H (3.8-10.6) k/uL RBC 3.77 L (3.80-5.40) m/uL MCV 100.4 H (80.0-100.0) fL Neutrophils # 16.8 H (1.3-7.7) k/uL Lymphocytes # 0.7 L (1.0-4.8) k/uL ABG pH (7.35-7.45) ABG pCO2 (35-45) mmHg ABG pO2 (83-108) mmHg ABG HCO3 (21-25) mmol/L ABG Total CO2 (19-24) mmol/L ABG O2 Saturation (94-97) % Carbon Dioxide (22-30) mmol/L BUN (7-17) mg/dL Creatinine (0.52-1.04) mg/dL Glucose (74-99) mg/dL POC Glucose (mg/dL) 181 H 156 H (75-99) mg/dL Calcium (8.4-10.2) mg/dL 07/25/18 07/25/18 07/25/18 Range/Units 04:20 04:20 04:44 WBC 16.4 H (3.8-10.6) k/uL RBC (3.80-5.40) m/uL MCV 101.0 H (80.0-100.0) fL Neutrophils # 15.0 H (1.3-7.7) k/uL Lymphocytes # 0.5 L (1.0-4.8) k/uL ABG pH 7.55 H (7.35-7.45) ABG pCO2 47 H (35-45) mmHg ABG pO2 82 L (83-108) mmHg ABG HCO3 41 H* (21-25) mmol/L ABG Total CO2 42 H (19-24) mmol/L ABG O2 Saturation 97.7 H (94-97) % Carbon Dioxide 36 H (22-30) mmol/L BUN 33 H (7-17) mg/dL Creatinine (0.52-1.04) mg/dL Glucose 155 H (74-99) mg/dL POC Glucose (mg/dL) (75-99) mg/dL Calcium 8.1 L (8.4-10.2) mg/dL 07/25/18 Range/Units 07:13 WBC (3.8-10.6) k/uL RBC (3.80-5.40) m/uL MCV (80.0-100.0) fL Neutrophils # (1.3-7.7) k/uL Lymphocytes # (1.0-4.8) k/uL ABG pH (7.35-7.45) ABG pCO2 (35-45) mmHg ABG pO2 (83-108) mmHg ABG HCO3 (21-25) mmol/L ABG Total CO2 (19-24) mmol/L ABG O2 Saturation (94-97) % Carbon Dioxide (22-30) mmol/L BUN (7-17) mg/dL Creatinine (0.52-1.04) mg/dL Glucose (74-99) mg/dL POC Glucose (mg/dL) 153 H (75-99) mg/dL Calcium (8.4-10.2) mg/dL Assessment and Plan Plan: Assessment: #1. Acute on chronic hypercapnic and hypoxic respiratory failure secondary to an acute exacerbation of chronic obstructive pulmonary disease requiring intubation and mechanical ventilation. CT scan field extensive bullous emphysema. Patient has chronic changes in the left upper lobe inflammatory opacity that is been followed for sometime in the outpatient setting. #2. Severe oxygen-dependent and steroid-dependent chronic obstructive pulmonary disease with a baseline FEV1 of 36% of predicted #3. Chronic tobacco dependence #4. Chronic left upper lobe inflammatory opacity followed on an outpatient basis #5. Crohn's disease with previous colectomy and a burning ostomy #6. Previous history of right pneumothorax #7. History of nephrolithiasis #8. Hyperlipidemia #9. Hypothyroidism #10. Poor overall functional capacity secondary to the above-mentioned multiple comorbidities Plan: We will give the patient sedation holiday. The plan is to proceed with the tracheostomy and PEG tube placement, surgery has been consulted. CT surgery has been consulted, and their input was appreciated. No surgical intervention for the bullous emphysema at this time. Current medical treatment, will discontinue the Lasix, patient is slightly prerenal, will correct serum potassium to above 4. We'll give the patient additional volume. Continue with IV steroids, antibiotics, and nebulized bronchodilators. GI and DVT prophylaxis. I performed a history & physical examination of the patient and discussed their management with my nurse practitioner, Carmella Jimenez. I reviewed the nurse practitioner's note and agree with the documented findings and plan of care. Lung sounds are positive for diffuse wheezes throughout the lung hunter. The findings and the impression was discussed with the patient. I attest to the documentation by the nurse practitioner. Time with Patient: Greater than 30
--- NOTE | 2018-07-25 10:00 | P.PN ---
Subjective Progress Note Date: 07/25/18 Principal diagnosis: Pulmonary bulla. 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 Patient currently lying in bed in the intensive care unit in no acute distress. She remains sedated on mechanical ventilation. Unable to wean and plan is for tracheostomy and PEG tube placement tomorrow per general surgery. Objective - Vital Signs Vital signs: Vital Signs Temp 97.9 F 07/25/18 08:00 Pulse 91 07/25/18 09:00 Resp 24 07/25/18 09:00 BP 128/75 07/25/18 04:00 Pulse Ox 98 07/25/18 09:00 Intake & Output 07/24/18 07/25/18 07/25/18 18:59 06:59 18:59 Intake Total 420.999 802.949 628.861 Output Total 1245 1860 225 Balance -824.001 -1057.051 403.861 Weight 56.6 kg 58.2 kg 58.2 kg Intake: IV 306 654 113 0.9NS Pressure Bag 36 54 18 Dextrose 5%-0.45% NaCl 1, 240 540 80 000 ml @ 40 mls/hr IV . Q24H [facility] Rx#:[id number] Midazolam HCl 100 mg In 30 60 15 Sodium Chloride 0.9% 80 ml @ 5 MG/HR 5 mls/hr IV .Q20H [facility] Rx#:[id number] Intake, IV Titration 114.999 148.949 515.861 Amount Azithromycin 500 mg In 250 Sodium Chloride 0.9% 250 ml @ 250 mls/hr IVPB DAILY [facility] Rx#:[id number] Magnesium Sulfate-D5w Pmx 100 1 gm In Dextrose/Water 1 100ml.bag @ 100 mls/hr IVPB Q1H [facility] Rx#: [id number] Norepinephrine 16 mg In 29.054 48.949 6.698 Sodium Chloride 0.9% 250 ml @ Titrate IV .Q0M [facility] Rx#:[id number] Potassium Chloride 10 meq 100 In Water For Injection 1 100ml.bag @ 100 mls/hr IVPB Q1H [facility] Rx#: [id number] Propofol 1,000 mg In 85.945 100 9.163 Empty Bag 1 bag @ Titrate IV .Q0M [facility] Rx#: [id number] cefTRIAXone 1,000 mg In 50 Sodium Chloride 0.9% 50 ml @ 100 mls/hr IVPB Q24HR [facility] Rx#:[id number] Output: Urine 745 1860 225 Stool 500 Other: Voiding Method Indwelling Catheter Indwelling Catheter ABP, PAP, CO, CI - Last Documented Arterial Blood Pressure 142/82 - Constitutional General appearance: Present: no acute distress - Respiratory Details: Lungs sounds diminished bilaterally. Respirations even, nonlabored on mechanical ventilation. Current ventilator settings assist control mode, FiO2 40%, tidal volume 400, respiratory rate 16, PEEP 5. ABGs this morning 7.55/47/ 82/41/97%/18.2 on 40% FiO2. 7.0 ET tube present, 22 at the lip. - Cardiovascular Details: S1, S2 present. Regular rate and rhythm, sinus rhythm on telemetry. Palpable peripheral pulses bilaterally. No edema present. No calf pain or tenderness noted. SCDs present. - Gastrointestinal Gastrointestinal Comment(s): Abdomen soft, nontender, nondistended. Active bowel sounds 4 quadrants. OG tube present draining brownish drainage, 400 mL currently in the chamber. - Genitourinary Genitourinary Comment(s): Ribera present draining clear, yellow urine. Output 75-250 mL per hour overnight. - Integumentary Integumentary Comment(s): Skin is warm and dry with evidence of good perfusion. - Psychiatric Psychiatric Comment(s): Currently sedated on mechanical ventilation with propofol and Versed. - Allied health notes Allied health notes reviewed: nursing - Labs CBC & Chem 7: 07/25/18 04:20 07/25/18 04:20 Labs: Abnormal Lab Results - Last 24 Hours (Table) 07/24/18 07/24/18 07/24/18 Range/Units 13:22 14:32 15:50 WBC (3.8-10.6) k/uL RBC (3.80-5.40) m/uL MCV (80.0-100.0) fL Neutrophils # (1.3-7.7) k/uL Lymphocytes # (1.0-4.8) k/uL ABG pH (7.35-7.45) ABG pCO2 (35-45) mmHg ABG pO2 (83-108) mmHg ABG HCO3 (21-25) mmol/L ABG Total CO2 (19-24) mmol/L ABG O2 Saturation (94-97) % Carbon Dioxide 37 H (22-30) mmol/L BUN 36 H (7-17) mg/dL Creatinine 0.45 L (0.52-1.04) mg/dL Glucose 142 H (74-99) mg/dL POC Glucose (mg/dL) 156 H 170 H (75-99) mg/dL Calcium 7.7 L (8.4-10.2) mg/dL 07/24/18 07/24/18 07/25/18 Range/Units 15:50 21:26 02:23 WBC 18.8 H (3.8-10.6) k/uL RBC 3.77 L (3.80-5.40) m/uL MCV 100.4 H (80.0-100.0) fL Neutrophils # 16.8 H (1.3-7.7) k/uL Lymphocytes # 0.7 L (1.0-4.8) k/uL ABG pH (7.35-7.45) ABG pCO2 (35-45) mmHg ABG pO2 (83-108) mmHg ABG HCO3 (21-25) mmol/L ABG Total CO2 (19-24) mmol/L ABG O2 Saturation (94-97) % Carbon Dioxide (22-30) mmol/L BUN (7-17) mg/dL Creatinine (0.52-1.04) mg/dL Glucose (74-99) mg/dL POC Glucose (mg/dL) 181 H 156 H (75-99) mg/dL Calcium (8.4-10.2) mg/dL 07/25/18 07/25/18 07/25/18 Range/Units 04:20 04:20 04:44 WBC 16.4 H (3.8-10.6) k/uL RBC (3.80-5.40) m/uL MCV 101.0 H (80.0-100.0) fL Neutrophils # 15.0 H (1.3-7.7) k/uL Lymphocytes # 0.5 L (1.0-4.8) k/uL ABG pH 7.55 H (7.35-7.45) ABG pCO2 47 H (35-45) mmHg ABG pO2 82 L (83-108) mmHg ABG HCO3 41 H* (21-25) mmol/L ABG Total CO2 42 H (19-24) mmol/L ABG O2 Saturation 97.7 H (94-97) % Carbon Dioxide 36 H (22-30) mmol/L BUN 33 H (7-17) mg/dL Creatinine (0.52-1.04) mg/dL Glucose 155 H (74-99) mg/dL POC Glucose (mg/dL) (75-99) mg/dL Calcium 8.1 L (8.4-10.2) mg/dL 07/25/18 Range/Units 07:13 WBC (3.8-10.6) k/uL RBC (3.80-5.40) m/uL MCV (80.0-100.0) fL Neutrophils # (1.3-7.7) k/uL Lymphocytes # (1.0-4.8) k/uL ABG pH (7.35-7.45) ABG pCO2 (35-45) mmHg ABG pO2 (83-108) mmHg ABG HCO3 (21-25) mmol/L ABG Total CO2 (19-24) mmol/L ABG O2 Saturation (94-97) % Carbon Dioxide (22-30) mmol/L BUN (7-17) mg/dL Creatinine (0.52-1.04) mg/dL Glucose (74-99) mg/dL POC Glucose (mg/dL) 153 H (75-99) mg/dL Calcium (8.4-10.2) mg/dL - Imaging and Cardiology Chest x-ray: report reviewed, image reviewed Assessment and Plan (1) Anxiety Current Visit: Yes Status: Chronic Code(s): F41.9 - ANXIETY DISORDER, UNSPECIFIED SNOMED Code(s): 08898107 (2) Diastolic CHF Current Visit: Yes Status: Chronic Code(s): I50.30 - UNSPECIFIED DIASTOLIC ( CONGESTIVE) HEART FAILURE SNOMED Code(s): 592691478 (3) Fibromyalgia Current Visit: Yes Status: Chronic Code(s): M79.7 - FIBROMYALGIA SNOMED Code(s): 310746959 (4) Hyperlipidemia Current Visit: Yes Status: Chronic Code(s): E78.5 - HYPERLIPIDEMIA, UNSPECIFIED SNOMED Code(s): 18910638 (5) Hypertension Current Visit: Yes Status: Chronic Code(s): I10 - ESSENTIAL (PRIMARY) HYPERTENSION SNOMED Code(s): 70508670 (6) Lung bullae Current Visit: Yes Status: Acute Code(s): J43.9 - EMPHYSEMA, UNSPECIFIED SNOMED Code(s): 982343977 (7) Acute exacerbation of chronic obstructive airways disease Current Visit: Yes Status: Acute Code(s): J44.1 - CHRONIC OBSTRUCTIVE PULMONARY DISEASE W (ACUTE) EXACERBATION SNOMED Code(s): 048778146 (8) Crohn's ileitis Current Visit: Yes Status: Chronic Code(s): K50.00 - CROHN'S DISEASE OF SMALL INTESTINE WITHOUT COMPLICATIONS SNOMED Code(s): 14361880 (9) Tobacco dependence in remission Current Visit: Yes Status: Chronic Code(s): F17.201 - NICOTINE DEPENDENCE, UNSPECIFIED, IN REMISSION SNOMED Code(s): 208468980 (10) Ventilator dependence Current Visit: Yes Status: Acute Code(s): Z99.11 - DEPENDENCE ON RESPIRATOR [VENTILATOR] STATUS SNOMED Code(s): 536555317 Plan: 1. No plan for thoracic surgical intervention at this time. 2. Plan is for tracheostomy and PEG tube placement tomorrow, 07/26/2018 by general surgery. 3. Continue medical management per primary care service. 4. Ventilator management, bronchodilators, steroids, antibiotics per pulmonology. 5. GI prophylaxis with Protonix, DVT prophylaxis with subcu heparin and SCDs. 6. Will continue to see on an as-needed basis. Please call us with any concerns. Time with Patient: Greater than 30
--- NOTE | 2018-07-25 12:39 | P.PN ---
Subjective Progress Note Date: 07/25/18 Principal diagnosis: Respiratory failure Patient remains sedated on the ventilator. Tolerating tube feeds at 35 mL per hour. Otherwise no changes. Objective - Vital Signs Vital signs: Vital Signs Temp 98.4 F 07/25/18 12:00 Pulse 97 07/25/18 12:00 Resp 21 07/25/18 12:00 BP 128/75 07/25/18 04:00 Pulse Ox 98 07/25/18 12:00 Intake & Output 07/24/18 07/25/18 07/25/18 18:59 06:59 18:59 Intake Total 420.999 043.532 7943.327 Output Total 1245 1860 500 Balance -824.001 -5076.936 5291.327 Weight 56.6 kg 58.2 kg 58.2 kg Intake: IV 306 654 225 0.9NS Pressure Bag 36 54 36 Dextrose 5%-0.45% NaCl 1, 240 540 160 000 ml @ 40 mls/hr IV . Q24H [facility] Rx#:[id number] Midazolam HCl 100 mg In 30 60 29 Sodium Chloride 0.9% 80 ml @ 5 MG/HR 5 mls/hr IV .Q20H [facility] Rx#:[id number] Intake, IV Titration 114.999 034.365 2703.327 Amount Azithromycin 500 mg In 250 Sodium Chloride 0.9% 250 ml @ 250 mls/hr IVPB DAILY [facility] Rx#:[id number] Magnesium Sulfate-D5w Pmx 100 1 gm In Dextrose/Water 1 100ml.bag @ 100 mls/hr IVPB Q1H [facility] Rx#: [id number] Midazolam HCl 100 mg In 57.466 Sodium Chloride 0.9% 80 ml @ 5 MG/HR 5 mls/hr IV .Q20H [facility] Rx#:[id number] Norepinephrine 16 mg In 29.054 48.949 6.698 Sodium Chloride 0.9% 250 ml @ Titrate IV .Q0M [facility] Rx#:[id number] Potassium Chloride 10 meq 100 In Water For Injection 1 100ml.bag @ 100 mls/hr IVPB Q1H [facility] Rx#: [id number] Propofol 1,000 mg In 85.945 100 9.163 Empty Bag 1 bag @ Titrate IV .Q0M [facility] Rx#: [id number] Sodium Chloride 0.9% 1, 1000 000 ml @ 999 mls/hr IV . Q1H1M [facility] Rx#:[id number] cefTRIAXone 1,000 mg In 50 Sodium Chloride 0.9% 50 ml @ 100 mls/hr IVPB Q24HR [facility] Rx#:[id number] Tube Feeding 35 Output: Urine 745 1860 500 Stool 500 Other: Voiding Method Indwelling Catheter Indwelling Catheter Indwelling Catheter ABP, PAP, CO, CI - Last Documented Arterial Blood Pressure 139/73 - Exam Abdomen: Soft, nondistended, nontender - Labs CBC & Chem 7: 07/25/18 04:20 07/25/18 04:20 Labs: Abnormal Lab Results - Last 24 Hours (Table) 07/24/18 07/24/18 07/24/18 Range/Units 13:22 14:32 15:50 WBC (3.8-10.6) k/uL RBC (3.80-5.40) m/uL MCV (80.0-100.0) fL Neutrophils # (1.3-7.7) k/uL Lymphocytes # (1.0-4.8) k/uL ABG pH (7.35-7.45) ABG pCO2 (35-45) mmHg ABG pO2 (83-108) mmHg ABG HCO3 (21-25) mmol/L ABG Total CO2 (19-24) mmol/L ABG O2 Saturation (94-97) % Carbon Dioxide 37 H (22-30) mmol/L BUN 36 H (7-17) mg/dL Creatinine 0.45 L (0.52-1.04) mg/dL Glucose 142 H (74-99) mg/dL POC Glucose (mg/dL) 156 H 170 H (75-99) mg/dL Calcium 7.7 L (8.4-10.2) mg/dL 07/24/18 07/24/18 07/25/18 Range/Units 15:50 21:26 02:23 WBC 18.8 H (3.8-10.6) k/uL RBC 3.77 L (3.80-5.40) m/uL MCV 100.4 H (80.0-100.0) fL Neutrophils # 16.8 H (1.3-7.7) k/uL Lymphocytes # 0.7 L (1.0-4.8) k/uL ABG pH (7.35-7.45) ABG pCO2 (35-45) mmHg ABG pO2 (83-108) mmHg ABG HCO3 (21-25) mmol/L ABG Total CO2 (19-24) mmol/L ABG O2 Saturation (94-97) % Carbon Dioxide (22-30) mmol/L BUN (7-17) mg/dL Creatinine (0.52-1.04) mg/dL Glucose (74-99) mg/dL POC Glucose (mg/dL) 181 H 156 H (75-99) mg/dL Calcium (8.4-10.2) mg/dL 07/25/18 07/25/18 07/25/18 Range/Units 04:20 04:20 04:44 WBC 16.4 H (3.8-10.6) k/uL RBC (3.80-5.40) m/uL MCV 101.0 H (80.0-100.0) fL Neutrophils # 15.0 H (1.3-7.7) k/uL Lymphocytes # 0.5 L (1.0-4.8) k/uL ABG pH 7.55 H (7.35-7.45) ABG pCO2 47 H (35-45) mmHg ABG pO2 82 L (83-108) mmHg ABG HCO3 41 H* (21-25) mmol/L ABG Total CO2 42 H (19-24) mmol/L ABG O2 Saturation 97.7 H (94-97) % Carbon Dioxide 36 H (22-30) mmol/L BUN 33 H (7-17) mg/dL Creatinine (0.52-1.04) mg/dL Glucose 155 H (74-99) mg/dL POC Glucose (mg/dL) (75-99) mg/dL Calcium 8.1 L (8.4-10.2) mg/dL 07/25/18 Range/Units 07:13 WBC (3.8-10.6) k/uL RBC (3.80-5.40) m/uL MCV (80.0-100.0) fL Neutrophils # (1.3-7.7) k/uL Lymphocytes # (1.0-4.8) k/uL ABG pH (7.35-7.45) ABG pCO2 (35-45) mmHg ABG pO2 (83-108) mmHg ABG HCO3 (21-25) mmol/L ABG Total CO2 (19-24) mmol/L ABG O2 Saturation (94-97) % Carbon Dioxide (22-30) mmol/L BUN (7-17) mg/dL Creatinine (0.52-1.04) mg/dL Glucose (74-99) mg/dL POC Glucose (mg/dL) 153 H (75-99) mg/dL Calcium (8.4-10.2) mg/dL Assessment and Plan (1) Respiratory failure requiring intubation Narrative/Plan: Will proceed with tracheostomy and PEG tube placement tomorrow. Current Visit: Yes Status: Acute Code(s): J96.90 - RESPIRATORY FAILURE, UNSP , UNSP W HYPOXIA OR HYPERCAPNIA SNOMED Code(s): 731263457
--- NOTE | 2018-07-25 13:46 | P.PN ---
Subjective Progress Note Date: 07/25/18 this is a 58-year-old pleasant female patient of Dr. Heber James. 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 Mistry treated with the dorsa Brio and albuterol in the outpatient setting. Also required home O2, she was transferred from [facility], admitted there 07/18/2018 secondary to COPD exacerbation. Patient required mechanical ventilation on admission, requiring Nimbex and propofol , was having difficulty in weaning off parameters, and currently is on Versed, which she has tolerated better. She also requires gentle diuresis, with IV Lasix, currently on a negative fluid balance. She is on empiric antibiotics in the form of Rocephin and Zithromax. They're planning on PEG and trach placement, however with the large bullae that was noted on routine x-rays yesterday, showing at least 25% of her left side, concern for pneumothorax, [facility] to ICU transfer, uninterrupted mechanical ventilation during her transfers.patient is on levo fedSolu-Medrol 60 Lasix 20 mg every 8 hours. Patient has been off her Humira prior to admission. 07/25: Patient remains intubated and on mechanical ventilation with tidal volume 400, FiO2 40 and PEEP of 5. Patient is managed by Dr. Meza. Norepinephrine is currently on hold as well as sedation and Versed dose is being decreased. Potassium and magnesium have been replaced. Patient is on tube feedings tolerating at 35 mL per hour. Patient has been seen by cardiothoracic surgery with no plan for any surgical intervention regarding the bolus emphysema at this time. Repeat chest x-ray is stable, patchy left upper lobe density persist. Pleural effusion unchanged. Dr. Aguayo is on consult with plan for tracheostomy and PEG tube placement for tomorrow. Family updated at the bedside. Objective - Vital Signs Vital signs: Vital Signs Temp 97.9 F 07/25/18 08:00 Pulse 92 07/25/18 10:00 Resp 19 07/25/18 10:00 BP 128/75 07/25/18 04:00 Pulse Ox 98 07/25/18 10:00 Intake & Output 07/24/18 07/25/18 07/25/18 18:59 06:59 18:59 Intake Total 420.999 802.949 639.861 Output Total 1245 1860 350 Balance -824.001 -1057.051 289.861 Weight 56.6 kg 58.2 kg 58.2 kg Intake: IV 306 654 124 0.9NS Pressure Bag 36 54 24 Dextrose 5%-0.45% NaCl 1, 240 540 80 000 ml @ 40 mls/hr IV . Q24H [facility] Rx#:[id number] Midazolam HCl 100 mg In 30 60 20 Sodium Chloride 0.9% 80 ml @ 5 MG/HR 5 mls/hr IV .Q20H [facility] Rx#:[id number] Intake, IV Titration 114.999 148.949 515.861 Amount Azithromycin 500 mg In 250 Sodium Chloride 0.9% 250 ml @ 250 mls/hr IVPB DAILY [facility] Rx#:[id number] Magnesium Sulfate-D5w Pmx 100 1 gm In Dextrose/Water 1 100ml.bag @ 100 mls/hr IVPB Q1H [facility] Rx#: [id number] Norepinephrine 16 mg In 29.054 48.949 6.698 Sodium Chloride 0.9% 250 ml @ Titrate IV .Q0M [facility] Rx#:[id number] Potassium Chloride 10 meq 100 In Water For Injection 1 100ml.bag @ 100 mls/hr IVPB Q1H [facility] Rx#: [id number] Propofol 1,000 mg In 85.945 100 9.163 Empty Bag 1 bag @ Titrate IV .Q0M [facility] Rx#: [id number] cefTRIAXone 1,000 mg In 50 Sodium Chloride 0.9% 50 ml @ 100 mls/hr IVPB Q24HR [facility] Rx#:[id number] Output: Urine 745 1860 350 Stool 500 Other: Voiding Method Indwelling Catheter Indwelling Catheter ABP, PAP, CO, CI - Last Documented Arterial Blood Pressure 145/80 - Exam sedated on vent without respiratory distress - Constitutional General appearance: average body habitus, no acute distress - EENT Eyes: anicteric sclerae, EOMI, normal appearance ENT: NA/AT - Neck Neck: normal ROM Thyroid: bilateral: normal size, negative: enlarged - Respiratory Respiratory: bilateral: diminished - Cardiovascular Rhythm: regular (tachycardic) Heart sounds: normal: S1, S2 Abnormal Heart Sounds: no systolic murmur, no diastolic murmur, no rub, no S3 Gallop, no S4 Gallop, no click, no other - Gastrointestinal General gastrointestinal: normal bowel sounds, soft - Integumentary Integumentary: decreased turgor, normal - Labs CBC & Chem 7: 07/25/18 04:20 07/25/18 04:20 Labs: Abnormal Lab Results - Last 24 Hours (Table) 07/24/18 07/24/18 07/24/18 Range/Units 13:22 14:32 15:50 WBC (3.8-10.6) k/uL RBC (3.80-5.40) m/uL MCV (80.0-100.0) fL Neutrophils # (1.3-7.7) k/uL Lymphocytes # (1.0-4.8) k/uL ABG pH (7.35-7.45) ABG pCO2 (35-45) mmHg ABG pO2 (83-108) mmHg ABG HCO3 (21-25) mmol/L ABG Total CO2 (19-24) mmol/L ABG O2 Saturation (94-97) % Carbon Dioxide 37 H (22-30) mmol/L BUN 36 H (7-17) mg/dL Creatinine 0.45 L (0.52-1.04) mg/dL Glucose 142 H (74-99) mg/dL POC Glucose (mg/dL) 156 H 170 H (75-99) mg/dL Calcium 7.7 L (8.4-10.2) mg/dL 07/24/18 07/24/18 07/25/18 Range/Units 15:50 21:26 02:23 WBC 18.8 H (3.8-10.6) k/uL RBC 3.77 L (3.80-5.40) m/uL MCV 100.4 H (80.0-100.0) fL Neutrophils # 16.8 H (1.3-7.7) k/uL Lymphocytes # 0.7 L (1.0-4.8) k/uL ABG pH (7.35-7.45) ABG pCO2 (35-45) mmHg ABG pO2 (83-108) mmHg ABG HCO3 (21-25) mmol/L ABG Total CO2 (19-24) mmol/L ABG O2 Saturation (94-97) % Carbon Dioxide (22-30) mmol/L BUN (7-17) mg/dL Creatinine (0.52-1.04) mg/dL Glucose (74-99) mg/dL POC Glucose (mg/dL) 181 H 156 H (75-99) mg/dL Calcium (8.4-10.2) mg/dL 07/25/18 07/25/18 07/25/18 Range/Units 04:20 04:20 04:44 WBC 16.4 H (3.8-10.6) k/uL RBC (3.80-5.40) m/uL MCV 101.0 H (80.0-100.0) fL Neutrophils # 15.0 H (1.3-7.7) k/uL Lymphocytes # 0.5 L (1.0-4.8) k/uL ABG pH 7.55 H (7.35-7.45) ABG pCO2 47 H (35-45) mmHg ABG pO2 82 L (83-108) mmHg ABG HCO3 41 H* (21-25) mmol/L ABG Total CO2 42 H (19-24) mmol/L ABG O2 Saturation 97.7 H (94-97) % Carbon Dioxide 36 H (22-30) mmol/L BUN 33 H (7-17) mg/dL Creatinine (0.52-1.04) mg/dL Glucose 155 H (74-99) mg/dL POC Glucose (mg/dL) (75-99) mg/dL Calcium 8.1 L (8.4-10.2) mg/dL 07/25/18 Range/Units 07:13 WBC (3.8-10.6) k/uL RBC (3.80-5.40) m/uL MCV (80.0-100.0) fL Neutrophils # (1.3-7.7) k/uL Lymphocytes # (1.0-4.8) k/uL ABG pH (7.35-7.45) ABG pCO2 (35-45) mmHg ABG pO2 (83-108) mmHg ABG HCO3 (21-25) mmol/L ABG Total CO2 (19-24) mmol/L ABG O2 Saturation (94-97) % Carbon Dioxide (22-30) mmol/L BUN (7-17) mg/dL Creatinine (0.52-1.04) mg/dL Glucose (74-99) mg/dL POC Glucose (mg/dL) 153 H (75-99) mg/dL Calcium (8.4-10.2) mg/dL Assessment and Plan Plan: 1. Severe COPD exacerbation with acute on chronic hypercapnic and hypoxemic respiratory failure requiring intubation and mechanical ventilation, managed by Dr. Meza. COPD exacerbation with CT evidence of bullous emphysema left side. Consult with cardiothoracic surgery appreciated. Continue IV steroids, mechanical ventilation, levo fed for sepsis with hypotension, nebulized albuterol Atrovent. OGT for feedings 2. Sepsis with septic shock most likely secondary to pneumonia, currently on Levophed,on Rocephin and Zithromax 3. Chronic diastolic heart failure. IV Lasix is continued, monitor urine output , I's and O's. 4. Sinus tachycardia. Patient was on metoprolol 25 mg 3 times daily at [facility], currently on hold due to hypotension. 5. History of Crohn's, has ileostomy on the right side, patient currently off Humira can use Lomotil when necessary, 6. Generalized anxiety disorder, currently sedated, was on BuSpar prior to admission 7. Fibromyalgia with neuropathy, was on [place] DVT prophylaxis Heparin GI prophylaxis Protonix Discharge plan: To be determined Impression and plan of care have been directed as dictated by the signing physician. Gaby Rothman nurse practitioner acting as scribe for signing physician.
[2018-07-25] MEDS: DEXTROSE 5%-0.45% NACL 1,000 ML IV SCH (15:43)
[2018-07-25 18:11] LABS: Glucose,Whole Blood 175 mg/dL (75-99)
[2018-07-25] MEDS: MIDAZOLAM HCL 100 MG in SODIUM CHLORIDE 0.9% 80 ML IV SCH ×2 (18:51→20:18)
[2018-07-26 00:27] LABS: Glucose,Whole Blood 182 mg/dL (75-99)
[2018-07-26] MEDS: methylPREDNISolone SOD SUCCI 125 MG/2 ML VIAL IV SCH ×5 (00:37→23:45)
[2018-07-26] MEDS: INSULIN ASPART 100 UNIT/ML 1 ML 10 ML VIAL SQ SCH ×5 (00:37→23:41)
[2018-07-26] MEDS: PROPOFOL 1,000 MG in EMPTY BAG 1 BAG IV SCH ×4 (02:58→22:41)
[2018-07-26] MEDS: IPRATROPIUM-ALBUTEROL 3 ML NEB INHALATION SCH ×6 (03:48→23:35)
[2018-07-26 05:06] LABS: Basophils % (A) 0 %; Eosinophils # (A) 0.1 k/uL (0-0.7); Eosinophils % (A) 0 %; HCT 37.9 % (34.0-46.0); HGB 11.8 gm/dL (11.4-16.0); Lymphocytes # (A) 0.4 k/uL (1.0-4.8); Lymphocytes % (A) 3 %; MCH 31.7 pg (25.0-35.0); MCHC 31.1 g/dL (31.0-37.0); MCV 102.1 fL (80.0-100.0); Macrocytosis Slight; Mean Platelet Volume 7.2; Monocytes # (A) 0.6 k/uL (0-1.0); Monocytes % (A) 4 %; Neutrophils # (A) 12.9 k/uL (1.3-7.7); Neutrophils % (A) 93 %; Platelet Count 146 k/uL (150-450); RBC 3.71 m/uL (3.80-5.40); RDW 14.5 % (11.5-15.5); WBC 13.9 k/uL (3.8-10.6)
[2018-07-26 05:13] LABS: Anion Gap 0 mmol/L; Blood Urea Nitrogen 23 mg/dL (7-17); Carbon Dioxide 22 mmol/L (22-30); Chloride 120 mmol/L (98-107); Glucose 107 mg/dL (74-99); Magnesium 1.4 mg/dL (1.6-2.3); Phosphorus 2.2 mg/dL (2.5-4.5); Sodium 142 mmol/L (137-145)
[2018-07-26 05:21] LABS: ABG HCO3 33 mmol/L (21-25); ABG Oxygen Saturation 97.3 % (94-97); ABG PCO2 41 mmHg (35-45); ABG PH 7.52 (7.35-7.45); ABG PO2 82 mmHg (83-108); ABG TCO2 34 mmol/L (19-24)
[2018-07-26 05:24] LABS: Calcium 5.6 mg/dL (8.4-10.2); Potassium 2.5 mmol/L (3.5-5.1)
[2018-07-26] MEDS ORDERED: POTASSIUM PHOSPHATE 10 MMOL in SODIUM CHLORIDE 0.9% 100 ML IV ONE (05:53)
[2018-07-26] MEDS ORDERED: Phosphorus Replacement Protoco 1 EACH MISC MISCELLANE PRN (05:53)
[2018-07-26 06:42] LABS: Ionized Calcium 5.1 mg/dL (4.5-5.3)
[2018-07-26] MEDS: MAGNESIUM SULFATE-D5W PMX 1 GM in DEXTROSE/WATER 1 100ML.BAG IVPB SCH ×3 (06:45→10:53)
[2018-07-26 06:48] LABS: Albumin 2.8 g/dL (3.5-5.0)
[2018-07-26 07:07] LABS: Glucose,Whole Blood 153 mg/dL (75-99)
[2018-07-26] MEDS: BUDESONIDE 1 MG/2 ML NEBU INHALATION SCH ×2 (07:25→19:47)
--- NOTE | 2018-07-26 08:13 | XR ---
EXAMINATION TYPE: XR chest 1V portable DATE OF EXAM: 07/26/2018 Comparison: 07/25/2018 Clinical History: 58-year-old female shortness of breath Findings: ET tube satisfactory. Left IJ CVC tip in the lower SVC. Heart normal size. Aorta within normal limits . COPD with old right-sided rib fracture deformities. No consolidation or pleural effusion. Impression: COPD and stable chest. No acute change.
--- NOTE | 2018-07-26 08:47 | P.PN ---
Subjective Progress Note Date: 07/26/18 Principal diagnosis: Acute hypercapnic and hypoxic rest or a failure, secondary to COPD This is a 58-year-old white female patient who was transferred from [facility] on 07/24/2018 where she presented with acute on chronic hypercapnic and hypoxic restaurant failure secondary to acute exacerbation of chronic obstructive pulmonary disease she required intubation and ventilation. She has a history of severe end-stage chronic obstructive pulmonary disease with a baseline FEV1 of 36% of predicted. She follows with Dr. Mistry in the pulmonary office, and her maintenance inhalers include 2 doors a, breathing a lot, and albuterol in the outpatient setting. She is on home oxygen. 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 She is prednisone dependent, and has had multiple episodes of COPD exacerbation. Chest x-ray was completed at the the [facility] and there appeared to be a left-sided loculated pneumothorax, computed tomography scan was ordered, and revealed evidence of bullous emphysema. Patient was transferred to [facility] with a consultation to cardiothoracic surgery. This morning she remains intubated, on mechanical ventilation, her current vent settings are assist-control mode the rate of 16, Tylenol 400, FiO2 45% and PEEP of 5. Maintenance IV fluids include D5 half- normal saline at a rate of 40 ML per hour, Versed is 55 mg per hour, Diprivan is 40 mics per kilo, per minute, levofed is at 2 mics per minute. This morning his blood gases show pO2 of 82, pCO2 47, and pH of 7.54. Patient has been diuresed, she was on Lasix 20 mg 3 times daily, and this morning's labs show a component of prerenal azotemia, with a BUN of 33, creatinine 0.56. We will discontinue the Lasix for now. The VBC 16.4, hemoglobin is 12.2, platelet count is 173, INR is 1.1. Sodium is 140, potassium is 3.8, and patient is receiving potassium replacements. Magnesium is 1.9. She is sedated, on mechanical ventilation. She was on Nimbex drip at [facility], which had been discontinued prior to transfer. Lung sounds are clear to auscultation, no significant secretions from the ET tube. Patient is afebrile. Today's chest x-ray showed patchy left upper lobe density, hyperinflation. She is covered with azithromycin and ceftriaxone, she is getting IV Solu-Medrol , and she is on nebulized bronchodilators. On 07/26/2018 patient seen in follow-up the intensive care unit. She remains sedated, intubated, on mechanical ventilator. Patient was given a trial of sedation holiday yesterday, however she became very restless, tachypneic, she started opening her eyes, but in view of her agitation she was placed back on sedation. Ventilator settings are assist-control mode with a rate of 16, tidal vital 400, FiO2 45%, and PEEP of 5. This morning's blood gas was reviewed, pO2 is 82, pCO2 is 41, pH is 7.52. Maintenance IV fluids as D5 0.45 at a rate of 40 ML per hour, levo fed is off, Diprivan is at 50 mics per kilo per minute, Versed is at 4.5 mg/hr. tube feedings were started yesterday, with vital 1.2 at a rate of 35 with a goal of 35. They have been on hold since midnight, patient is scheduled for trach and PEG or bowel. Today's chest x-ray has been reviewed , andshowed no acute process. Stable chest. Afebrile, hemodynamically stable. We'll continue with current medical treatment. Today's labs showed WBC of 13.9, hemoglobin is 11.8, sodium is 142, potassium is 2.5, chloride is 120, BUN is 23, creatinine is 0.28, magnesium is 1.4, and calcium is 5.6. He's electrolytes are being corrected, patient is receiving IV potassium chloride, and potassium phosphate, follows magnesium replacements. Continue with nebulized bronchodilators. Lung sounds are essentially clear Objective - Vital Signs Vital signs: Vital Signs Temp 98.6 F 07/26/18 06:00 Pulse 88 07/26/18 07:39 Resp 18 07/26/18 07:00 BP 133/83 07/25/18 13:00 Pulse Ox 95 07/26/18 07:00 Intake & Output 07/25/18 07/26/18 07/26/18 18:59 06:59 18:59 Intake Total 2401.341 996.605 46 Output Total 1885 650 35 Balance 516.341 346.605 11 Weight 58.2 kg Intake: IV 505 552 46 0.9NS Pressure Bag 72 72 6 Dextrose 5%-0.45% NaCl 1, 400 480 40 000 ml @ 40 mls/hr IV . Q24H [facility] Rx#:[id number] Midazolam HCl 100 mg In 33 Sodium Chloride 0.9% 80 ml @ 5 MG/HR 5 mls/hr IV .Q20H [facility] Rx#:[id number] Intake, IV Titration 1621.341 181.605 Amount Azithromycin 500 mg In 250 Sodium Chloride 0.9% 250 ml @ 250 mls/hr IVPB DAILY [facility] Rx#:[id number] Magnesium Sulfate-D5w Pmx 100 1 gm In Dextrose/Water 1 100ml.bag @ 100 mls/hr IVPB Q1H [facility] Rx#: [id number] Midazolam HCl 100 mg In 60.866 58.500 Sodium Chloride 0.9% 80 ml @ 5 MG/HR 5 mls/hr IV .Q20H [facility] Rx#:[id number] Norepinephrine 16 mg In 6.698 Sodium Chloride 0.9% 250 ml @ Titrate IV .Q0M [facility] Rx#:[id number] Potassium Chloride 10 meq 100 In Water For Injection 1 100ml.bag @ 100 mls/hr IVPB Q1H [facility] Rx#: [id number] Propofol 1,000 mg In 53.777 123.105 Empty Bag 1 bag @ Titrate IV .Q0M [facility] Rx#: [id number] Sodium Chloride 0.9% 1, 1000 000 ml @ 999 mls/hr IV . Q1H1M [facility] Rx#:[id number] cefTRIAXone 1,000 mg In 50 Sodium Chloride 0.9% 50 ml @ 100 mls/hr IVPB Q24HR [facility] Rx#:[id number] Tube Feeding 245 203 Other 30 60 Output: Urine 885 400 35 Stool 1000 250 Other: Voiding Method Indwelling Catheter Indwelling Catheter ABP, PAP, CO, CI - Last Documented Arterial Blood Pressure 101/51 - Exam GENERAL EXAM: Alert, pleasant, 58-year-old white female, intubated, on mechanical ventilator, comfortable in no apparent distress. HEAD: Normocephalic/atraumatic. EYES: Normal reaction of pupils, equal size. Conjunctiva pink, sclera white. NOSE: Clear with pink turbinates. THROAT: No erythema or exudates. NECK: No masses, no JVD, no thyroid enlargement, no adenopathy. CHEST: No chest wall deformity. Symmetrical expansion. LUNGS: Equal air entry with no crackles, wheeze, rhonchi or dullness. CVS: Regular rate and rhythm, normal S1 and S2, no gallops, no murmurs, no rubs ABDOMEN: Soft, nontender. Patient has a right sided colostomy with liquid output. No hepatosplenomegaly, normal bowel sounds, no guarding or rigidity. EXTREMITIES: No clubbing, no edema, no cyanosis, 2+ pulses and upper and lower extremities. MUSCULOSKELETAL: Muscle strength and tone normal. SPINE: No scoliosis or deformity SKIN: No rashes CENTRAL NERVOUS SYSTEM: Sedated on mechanical ventilator No focal deficits, tone is normal in all 4 extremities. PSYCHIATRIC: Sedated on mechanical ventilator, unable to assess - Labs CBC & Chem 7: 07/26/18 04:40 07/26/18 04:40 Labs: Abnormal Lab Results - Last 24 Hours (Table) 07/25/18 07/26/18 07/26/18 Range/Units 18:10 00:26 04:40 WBC 13.9 H (3.8-10.6) k/uL RBC 3.71 L (3.80-5.40) m/uL MCV 102.1 H (80.0-100.0) fL Plt Count 146 L (150-450) k/uL Neutrophils # 12.9 H (1.3-7.7) k/uL Lymphocytes # 0.4 L (1.0-4.8) k/uL ABG pH (7.35-7.45) ABG pO2 (83-108) mmHg ABG HCO3 (21-25) mmol/L ABG Total CO2 (19-24) mmol/L ABG O2 Saturation (94-97) % Potassium (3.5-5.1) mmol/L Chloride (98-107) mmol/L BUN (7-17) mg/dL Creatinine (0.52-1.04) mg/dL Glucose (74-99) mg/dL POC Glucose (mg/dL) 175 H 182 H (75-99) mg/dL Calcium (8.4-10.2) mg/dL Phosphorus (2.5-4.5) mg/dL Magnesium (1.6-2.3) mg/dL Albumin (3.5-5.0) g/dL 07/26/18 07/26/18 07/26/18 Range/Units 04:40 05:18 06:19 WBC (3.8-10.6) k/uL RBC (3.80-5.40) m/uL MCV (80.0-100.0) fL Plt Count (150-450) k/uL Neutrophils # (1.3-7.7) k/uL Lymphocytes # (1.0-4.8) k/uL ABG pH 7.52 H (7.35-7.45) ABG pO2 82 L (83-108) mmHg ABG HCO3 33 H (21-25) mmol/L ABG Total CO2 34 H (19-24) mmol/L ABG O2 Saturation 97.3 H (94-97) % Potassium 2.5 L* (3.5-5.1) mmol/L Chloride 120 H (98-107) mmol/L BUN 23 H (7-17) mg/dL Creatinine 0.28 L (0.52-1.04) mg/dL Glucose 107 H (74-99) mg/dL POC Glucose (mg/dL) (75-99) mg/dL Calcium 5.6 L* (8.4-10.2) mg/dL Phosphorus 2.2 L (2.5-4.5) mg/dL Magnesium 1.4 L (1.6-2.3) mg/dL Albumin 2.8 L (3.5-5.0) g/dL 07/26/18 Range/Units 07:06 WBC (3.8-10.6) k/uL RBC (3.80-5.40) m/uL MCV (80.0-100.0) fL Plt Count (150-450) k/uL Neutrophils # (1.3-7.7) k/uL Lymphocytes # (1.0-4.8) k/uL ABG pH (7.35-7.45) ABG pO2 (83-108) mmHg ABG HCO3 (21-25) mmol/L ABG Total CO2 (19-24) mmol/L ABG O2 Saturation (94-97) % Potassium (3.5-5.1) mmol/L Chloride (98-107) mmol/L BUN (7-17) mg/dL Creatinine (0.52-1.04) mg/dL Glucose (74-99) mg/dL POC Glucose (mg/dL) 153 H (75-99) mg/dL Calcium (8.4-10.2) mg/dL Phosphorus (2.5-4.5) mg/dL Magnesium (1.6-2.3) mg/dL Albumin (3.5-5.0) g/dL Assessment and Plan Plan: Assessment: #1. Acute on chronic hypercapnic and hypoxic respiratory failure secondary to an acute exacerbation of chronic obstructive pulmonary disease requiring intubation and mechanical ventilation. CT scan field extensive bullous emphysema. Patient has chronic changes in the left upper lobe inflammatory opacity that is been followed for sometime in the outpatient setting. #2. Severe oxygen-dependent and steroid-dependent chronic obstructive pulmonary disease with a baseline FEV1 of 36% of predicted #3. Hypokalemia, hypomagnesemia #4. Metabolic alkalosis likely related to diuresis, and hypokalemia #5. Chronic tobacco dependence #6. Chronic left upper lobe inflammatory opacity followed on an outpatient basis #7. Crohn's disease with previous colectomy and diverting ostomy #8. Previous history of right pneumothorax #9. History of nephrolithiasis #10. Hyperlipidemia #11. Hypothyroidism #12. Poor overall functional capacity secondary to the above-mentioned multiple comorbidities Plan: Continue with current plan of treatment, correct hypokalemia, hypomagnesemia. Continue current antibiotic coverage, feedings are on hold, patient scheduled for tracheostomy and PEG tube placement. Afebrile. Chest x-ray was reviewed, shows stable chest, without acute process. continue nebulized bronchodilators. I performed a history & physical examination of the patient and discussed their management with my nurse practitioner, Carmella Jimenez. I reviewed the nurse practitioner's note and agree with the documented findings and plan of care. Lung sounds are clear. The findings and the impression was discussed with the patient. I attest to the documentation by the nurse practitioner. Time with Patient: Greater than 30
[2018-07-26] MEDS: POTASSIUM CHLORIDE 20 MEQ in WATER FOR INJECTION 1 100ML.BAG IVPB SCH ×3 (09:07→16:11)
[2018-07-26] MEDS: AZITHROMYCIN 500 MG in SODIUM CHLORIDE 0.9% 250 ML IVPB SCH (09:07)
[2018-07-26] MEDS: PANTOPRAZOLE 40 MG/10 ML VIAL IVP SCH (09:08)
[2018-07-26] MEDS: CHLORHEXIDINE GLUCONATE 15 ML CUP MUCOUS MEM SCH ×3 (09:08→23:31)
[2018-07-26 11:56] LABS: Glucose,Whole Blood 181 mg/dL (75-99)
[2018-07-26] MEDS ORDERED: DEXTROSE 5%-0.45% NACL 1,000 ML IV ONE (13:20)
[2018-07-26] MEDS ORDERED: fentaNYL (PF) 50 MCG/ML 2 ML AMP ONE (13:20)
[2018-07-26] MEDS ORDERED: PHENYLEPHRINE-0.9% NACL SYG 1 MG/10 ML SYRINGE ONE (13:20)
[2018-07-26] MEDS ORDERED: PROPOFOL 10 MG/ML 20 ML VIAL IV ONE (13:20)
--- NOTE | 2018-07-26 13:32 | P.PN ---
Subjective Progress Note Date: 07/26/18 this is a 58-year-old pleasant female patient of Dr. Heber James. 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 Mistry treated with the dorsa Brio and albuterol in the outpatient setting. Also required home O2, she was transferred from [facility], admitted there 07/18/2018 secondary to COPD exacerbation. Patient required mechanical ventilation on admission, requiring Nimbex and propofol , was having difficulty in weaning off parameters, and currently is on Versed, which she has tolerated better. She also requires gentle diuresis, with IV Lasix, currently on a negative fluid balance. She is on empiric antibiotics in the form of Rocephin and Zithromax. They're planning on PEG and trach placement, however with the large bullae that was noted on routine x-rays yesterday, showing at least 25% of her left side, concern for pneumothorax, they have [facility] from [facility] to ICU transfer, uninterrupted mechanical ventilation during her transfers.patient is on levo fedSolu-Medrol 60 Lasix 20 mg every 8 hours. Patient has been off her Humira prior to admission. 07/25: Patient remains intubated and on mechanical ventilation with tidal volume 400, FiO2 40 and PEEP of 5. Patient is managed by Dr. Meza. Norepinephrine is currently on hold as well as sedation and Versed dose is being decreased. Potassium and magnesium have been replaced. Patient is on tube feedings tolerating at 35 mL per hour. Patient has been seen by cardiothoracic surgery with no plan for any surgical intervention regarding the bolus emphysema at this time. Repeat chest x-ray is stable, patchy left upper lobe density persist. Pleural effusion unchanged. Dr. Aguayo is on consult with plan for tracheostomy and PEG tube placement for tomorrow. Family updated at the bedside. 07/26: Patient remains in the intensive care unit intubated and on mechanical ventilation. Patient required levo fed last evening which has not been discontinued. She did have a period of low urine output during the night but this is improved. White count is down to 13.9. Potassium, magnesium and calcium are being replaced. Patient is scheduled for PEG tube and trach today with Dr. Aguayo. Family updated at the bedside. Objective - Vital Signs Vital signs: Vital Signs Temp 98.6 F 07/26/18 06:00 Pulse 88 07/26/18 07:39 Resp 18 07/26/18 07:00 BP 133/83 07/25/18 13:00 Pulse Ox 95 07/26/18 07:00 Intake & Output 07/25/18 07/26/18 07/26/18 18:59 06:59 18:59 Intake Total 2401.341 996.605 46 Output Total 1885 650 35 Balance 516.341 346.605 11 Weight 58.2 kg Intake: IV 505 552 46 0.9NS Pressure Bag 72 72 6 Dextrose 5%-0.45% NaCl 1, 400 480 40 000 ml @ 40 mls/hr IV . Q24H [facility] Rx#:[id number] Midazolam HCl 100 mg In 33 Sodium Chloride 0.9% 80 ml @ 5 MG/HR 5 mls/hr IV .Q20H [facility] Rx#:[id number] Intake, IV Titration 1621.341 181.605 Amount Azithromycin 500 mg In 250 Sodium Chloride 0.9% 250 ml @ 250 mls/hr IVPB DAILY [facility] Rx#:[id number] Magnesium Sulfate-D5w Pmx 100 1 gm In Dextrose/Water 1 100ml.bag @ 100 mls/hr IVPB Q1H [facility] Rx#: [id number] Midazolam HCl 100 mg In 60.866 58.500 Sodium Chloride 0.9% 80 ml @ 5 MG/HR 5 mls/hr IV .Q20H [facility] Rx#:[id number] Norepinephrine 16 mg In 6.698 Sodium Chloride 0.9% 250 ml @ Titrate IV .Q0M [facility] Rx#:[id number] Potassium Chloride 10 meq 100 In Water For Injection 1 100ml.bag @ 100 mls/hr IVPB Q1H [facility] Rx#: [id number] Propofol 1,000 mg In 53.777 123.105 Empty Bag 1 bag @ Titrate IV .Q0M [facility] Rx#: [id number] Sodium Chloride 0.9% 1, 1000 000 ml @ 999 mls/hr IV . Q1H1M [facility] Rx#:[id number] cefTRIAXone 1,000 mg In 50 Sodium Chloride 0.9% 50 ml @ 100 mls/hr IVPB Q24HR [facility] Rx#:[id number] Tube Feeding 245 203 Other 30 60 Output: Urine 885 400 35 Stool 1000 250 Other: Voiding Method Indwelling Catheter Indwelling Catheter ABP, PAP, CO, CI - Last Documented Arterial Blood Pressure 101/51 - Exam sedated on vent without respiratory distress - Constitutional General appearance: average body habitus, no acute distress - EENT Eyes: anicteric sclerae, EOMI, normal appearance ENT: NA/AT - Neck Neck: normal ROM Thyroid: bilateral: normal size, negative: enlarged - Respiratory Respiratory: bilateral: diminished - Cardiovascular Rhythm: regular (tachycardic) Heart sounds: normal: S1, S2 Abnormal Heart Sounds: no systolic murmur, no diastolic murmur, no rub, no S3 Gallop, no S4 Gallop, no click, no other - Gastrointestinal General gastrointestinal: normal bowel sounds, soft - Integumentary Integumentary: decreased turgor, normal - Labs CBC & Chem 7: 07/26/18 04:40 07/26/18 04:40 Labs: Abnormal Lab Results - Last 24 Hours (Table) 07/25/18 07/26/18 07/26/18 Range/Units 18:10 00:26 04:40 WBC 13.9 H (3.8-10.6) k/uL RBC 3.71 L (3.80-5.40) m/uL MCV 102.1 H (80.0-100.0) fL Plt Count 146 L (150-450) k/uL Neutrophils # 12.9 H (1.3-7.7) k/uL Lymphocytes # 0.4 L (1.0-4.8) k/uL ABG pH (7.35-7.45) ABG pO2 (83-108) mmHg ABG HCO3 (21-25) mmol/L ABG Total CO2 (19-24) mmol/L ABG O2 Saturation (94-97) % Potassium (3.5-5.1) mmol/L Chloride (98-107) mmol/L BUN (7-17) mg/dL Creatinine (0.52-1.04) mg/dL Glucose (74-99) mg/dL POC Glucose (mg/dL) 175 H 182 H (75-99) mg/dL Calcium (8.4-10.2) mg/dL Phosphorus (2.5-4.5) mg/dL Magnesium (1.6-2.3) mg/dL Albumin (3.5-5.0) g/dL 07/26/18 07/26/18 07/26/18 Range/Units 04:40 05:18 06:19 WBC (3.8-10.6) k/uL RBC (3.80-5.40) m/uL MCV (80.0-100.0) fL Plt Count (150-450) k/uL Neutrophils # (1.3-7.7) k/uL Lymphocytes # (1.0-4.8) k/uL ABG pH 7.52 H (7.35-7.45) ABG pO2 82 L (83-108) mmHg ABG HCO3 33 H (21-25) mmol/L ABG Total CO2 34 H (19-24) mmol/L ABG O2 Saturation 97.3 H (94-97) % Potassium 2.5 L* (3.5-5.1) mmol/L Chloride 120 H (98-107) mmol/L BUN 23 H (7-17) mg/dL Creatinine 0.28 L (0.52-1.04) mg/dL Glucose 107 H (74-99) mg/dL POC Glucose (mg/dL) (75-99) mg/dL Calcium 5.6 L* (8.4-10.2) mg/dL Phosphorus 2.2 L (2.5-4.5) mg/dL Magnesium 1.4 L (1.6-2.3) mg/dL Albumin 2.8 L (3.5-5.0) g/dL 07/26/18 Range/Units 07:06 WBC (3.8-10.6) k/uL RBC (3.80-5.40) m/uL MCV (80.0-100.0) fL Plt Count (150-450) k/uL Neutrophils # (1.3-7.7) k/uL Lymphocytes # (1.0-4.8) k/uL ABG pH (7.35-7.45) ABG pO2 (83-108) mmHg ABG HCO3 (21-25) mmol/L ABG Total CO2 (19-24) mmol/L ABG O2 Saturation (94-97) % Potassium (3.5-5.1) mmol/L Chloride (98-107) mmol/L BUN (7-17) mg/dL Creatinine (0.52-1.04) mg/dL Glucose (74-99) mg/dL POC Glucose (mg/dL) 153 H (75-99) mg/dL Calcium (8.4-10.2) mg/dL Phosphorus (2.5-4.5) mg/dL Magnesium (1.6-2.3) mg/dL Albumin (3.5-5.0) g/dL Assessment and Plan Plan: 1. Severe COPD exacerbation with acute on chronic hypercapnic and hypoxemic respiratory failure requiring intubation and mechanical ventilation, managed by Dr. Meza. COPD exacerbation with CT evidence of bullous emphysema left side. Consult with cardiothoracic surgery appreciated. Continue IV steroids, mechanical ventilation, levo fed for sepsis with hypotension, nebulized albuterol Atrovent. OGT for feedings. PEG tube and trach today with Dr. Aguayo. 2. Sepsis with septic shock most likely secondary to pneumonia, currently on Levophed,on Rocephin and Zithromax 3. Chronic diastolic heart failure. IV Lasix is discontinued, monitor urine output, I's and O's. 4. Sinus tachycardia. Patient was on metoprolol 25 mg 3 times daily at [facility], currently on hold due to hypotension. 5. History of Crohn's, has ileostomy on the right side, patient currently off Humira can use Lomotil when necessary, 6. Generalized anxiety disorder, currently sedated, was on BuSpar prior to admission 7. Fibromyalgia with neuropathy, was on [place] 8. Severe protein calorie malnutrition requiring tube feedings with albumin of 2.8. PEG tube to be placed. DVT prophylaxis Heparin GI prophylaxis Protonix Discharge plan: To be determined Impression and plan of care have been directed as dictated by the signing physician. Gaby Rothman nurse practitioner acting as scribe for signing physician.
[2018-07-26] MEDS ORDERED: BUPIVACAIN-EPI 0.25%-1:200,000 30 ML VIAL SQ ONE ×2 (13:39)
--- NOTE | 2018-07-26 15:21 | P.OP ---
Date of Procedure: 07/26/18 Procedure(s) Performed: PREOPERATIVE DIAGNOSIS: Respiratory failure, malnutrition POSTOPERATIVE DIAGNOSIS: Same PROCEDURE: Tracheostomy, EGD with PEG tube placement SURGEON: Dede EBL: Minimal ANESTHESIA: General COMPLICATIONS: None OPERATIVE PROCEDURE: Patient was placed in the operative table in the supine position. A shoulder roll was utilized. The neck was prepped and draped in usual sterile fashion. The skin was infiltrated with local anesthesia. A small cervical incision was created using the scalpel. Dissection through the subcutaneous fat and platysma layer took place using electrocautery. The underlying strap muscles were divided in the midline. The thyroid isthmus was divided using electrocautery as well. No bleeding was seen. The trachea was easily identified at this time. The endotracheal tube was advanced and the balloon was reinflated. The patient was preoxygenated with 100% FiO2. The FiO2 was then brought down to room air. Once the end title oxygen level was less than 35 a vertical tracheostomy was created using the electrocautery. This went through the second and third tracheal ring. The patient was again preoxygenated with 100% FiO2. The spot cleaner was utilized. Carefully the endotracheal tube was withdrawn just proximal to our tracheostomy. The 8- [place] Shiley fenestrated tracheostomy catheter was advanced under direct visualization into the trachea. The obturator was inserted. This was then connected to the ventilator. Positive end tidal CO2 was confirmed. The tracheal ties were utilized. The trach was sutured to the skin superiorly using 2 separate 0 silk sutures. The skin was closed using 3-0 Vicryl sutures. A dressing was applied. The patient was capped in the supine position on the operating room table. The Olympus gastroscope was inserted into the oropharynx and passed under direct visualization to the region of the duodenum. No obstruction was seen. The pylorus was widely patent. The stomach was carefully inspected. The stomach was fully insufflated with air. The abdominal wall was inspected. The light was seen shining through the abdominal wall in the left upper quadrant. This site was chosen for PEG tube placement. The area was prepped in the usual sterile fashion. A small vertical incision was made using the scalpel. The Seldinger needle was advanced into the lumen of the stomach the wire was advanced. The wire was grasped with an endoscopic snare. The wire was pulled through the oropharynx. The catheter was then threaded over the guidewire and the guidewire and catheter were pulled anteriorly until the hub of the PEG tube catheter was seated against the anterior wall the stomach. The circular bolster was applied and tightened down. The endoscope was then readvanced into the stomach. There was no evidence of any bleeding and there was appropriate tightness on the bolster. The catheter was cut appropriately. The dual port feeding adapter was applied. DISPOSITION: Stable to ICU
[2018-07-26] MEDS: CALCIUM GLUCONATE 1,000 MG in SODIUM CHLORIDE 0.9% 100 ML IVPB SCH ×2 (16:10→19:11)
[2018-07-26] MEDS: HEPARIN SODIUM,PORCINE 5,000 UNIT/ML 1 ML VIAL SQ SCH ×2 (16:11→21:22)
[2018-07-26] MEDS: DEXTROSE 5%-0.45% NACL 1,000 ML IV SCH (16:13)
[2018-07-26 17:08] LABS: Glucose,Whole Blood 129 mg/dL (75-99)
[2018-07-26] MEDS: MIDAZOLAM HCL 100 MG in SODIUM CHLORIDE 0.9% 80 ML IV SCH (17:13)
[2018-07-26 23:32] LABS: Glucose,Whole Blood 159 mg/dL (75-99)
[2018-07-27] MEDS: IPRATROPIUM-ALBUTEROL 3 ML NEB INHALATION SCH ×5 (03:29→19:58)
[2018-07-27 05:19] LABS: ABG Base Excess 5.1 mmol/L; ABG HCO3 29 mmol/L (21-25); ABG Oxygen Saturation 99.3 % (94-97); ABG PCO2 39 mmHg (35-45); ABG PH 7.47 (7.35-7.45); ABG PO2 126 mmHg (83-108); ABG TCO2 30 mmol/L (19-24)
[2018-07-27 05:26] LABS: HCT 37.9 % (34.0-46.0); HGB 12.1 gm/dL (11.4-16.0); MCH 32.2 pg (25.0-35.0); MCHC 31.9 g/dL (31.0-37.0); Macrocytosis Slight; Mean Platelet Volume 7.4; Platelet Count 192 k/uL (150-450); RBC 3.75 m/uL (3.80-5.40); RDW 14.5 % (11.5-15.5); WBC 20.4 k/uL (3.8-10.6)
[2018-07-27 05:32] LABS: Anion Gap 2 mmol/L; Blood Urea Nitrogen 22 mg/dL (7-17); Calcium 6.8 mg/dL (8.4-10.2); Carbon Dioxide 24 mmol/L (22-30); Chloride 114 mmol/L (98-107); Glucose 132 mg/dL (74-99); Magnesium 1.7 mg/dL (1.6-2.3); Phosphorus 3.9 mg/dL (2.5-4.5); Potassium 3.9 mmol/L (3.5-5.1); Sodium 140 mmol/L (137-145)
[2018-07-27 06:23] LABS: Glucose,Whole Blood 168 mg/dL (75-99)
[2018-07-27 06:26] LABS: Band Neutrophils % 2 %; Lymphocytes # (M) 0.41 k/uL (1.0-4.8); Metamyelocytes % 1 %; Monocytes # (M) 0.61 k/uL (0-1.0); Neutrophils % (M) 92 %; Nucleated Red Blood Cells 0 /100 WBC (0-0); Total Cells Counted 100
[2018-07-27] MEDS: INSULIN ASPART 100 UNIT/ML 1 ML 10 ML VIAL SQ SCH ×4 (06:46→21:00)
[2018-07-27] MEDS: methylPREDNISolone SOD SUCCI 125 MG/2 ML VIAL IV SCH (06:47)
[2018-07-27] MEDS ORDERED: POTASSIUM BICARBONATE/CIT AC 20 MEQ TABLET.EFF NG-TUBE SCH (07:00)
[2018-07-27] MEDS: MAGNESIUM SULFATE-D5W PMX 1 GM in DEXTROSE/WATER 1 100ML.BAG IVPB SCH ×2 (07:06→10:33)
--- NOTE | 2018-07-27 07:48 | XR ---
EXAMINATION TYPE: XR chest 1V portable DATE OF EXAM: 07/27/2018 COMPARISON: 07/26/2018 INDICATION: Shortness of breath TECHNIQUE: Single frontal view of the chest is obtained. FINDINGS: The heart size is normal. The pulmonary vasculature is normal. Minimal subsegmental atelectasis may be at the right base. Large apical bulla are present greater on the right. There is interval placement of a tracheostomy tube. The endotracheal tube and nasogastric tube is bee n removed. IMPRESSION: 1. Placement of tracheostomy tube in the midline. 2. Stable left central venous catheter, tip in superior vena cava region. 3. Apical bulla more evident on the right. 4. Minimal right basilar subsegmental atelectasis
[2018-07-27] MEDS: BUDESONIDE 1 MG/2 ML NEBU INHALATION SCH ×2 (08:00→19:58)
[2018-07-27] MEDS: PANTOPRAZOLE 40 MG/10 ML VIAL IVP SCH (08:32)
[2018-07-27] MEDS: HEPARIN SODIUM,PORCINE 5,000 UNIT/ML 1 ML VIAL SQ SCH ×2 (08:37→20:50)
[2018-07-27] MEDS: CHLORHEXIDINE GLUCONATE 15 ML CUP MUCOUS MEM SCH ×2 (08:38→20:50)
--- NOTE | 2018-07-27 09:10 | P.PN ---
Subjective Progress Note Date: 07/27/18 Principal diagnosis: Respiratory failure, bolus emphysema, COPD, Progress note dated 07/27/2018 This is a 58-year-old female with history of hypoxemic and hypercapnic respiratory failure secondary to severe COPD and bullous emphysema. The patient underwent a tracheostomy in PEG tube placement yesterday by Dr. Fernando Aguayo. The patient has severe COPD with an FEV1 that's 36% of predicted has a history of chronic tobacco dependence Crohn's disease with previous colectomy and diverting ostomy previous history of right pneumothorax nephrolithiasis hyperlipidemia and hypothyroidism. Currently, the patient's on the volume assist control mode with a rate of 16, tidal volume 400 FiO2 40% to be dropped down to 30% and 5 of PEEP. Today's blood gases show a PaO2 of 126 a PaCO2 of 39 and a pH of 7.47. The patient is currently on propofol at 35 mics per kilogram per minute. She's currently on Versed at 4.5 which will be weaned off and dextrose with half-normal saline at 40 mL now her. Chest x-ray looks relatively normal. Microbiology is negative. As mentioned above, tracheostomy and PEG tube was done yesterday on July 26. The plan today would be to wean her off the benzodiazepine wake her off and see if she is ready for a spontaneous breathing trial. Objective - Vital Signs Vital signs: Vital Signs Temp 98.3 F 07/27/18 08:00 Pulse 81 07/27/18 08:15 Resp 18 07/27/18 08:00 BP 133/83 07/25/18 13:00 Pulse Ox 96 07/27/18 08:00 Intake & Output 07/26/18 07/27/18 07/27/18 18:59 06:59 18:59 Intake Total 1735.665 656.539 89 Output Total 1128 860 100 Balance 607.665 -203.461 -11 Weight 57.1 kg Intake: IV 1520 552 89 0.9NS Pressure Bag 60 72 9 Azithromycin 500 mg In 250 Sodium Chloride 0.9% 250 ml @ 250 mls/hr IVPB DAILY [facility] Rx#:[id number] Dextrose 5%-0.45% NaCl 1, 360 480 80 000 ml @ 40 mls/hr IV . Q24H [facility] Rx#:[id number] Magnesium Sulfate-D5w Pmx 300 1 gm In Dextrose/Water 1 100ml.bag @ 100 mls/hr IVPB Q1H [facility] Rx#: [id number] Potassium Chloride 20 meq 200 In Water For Injection 1 100ml.bag @ 50 mls/hr IVPB Q2H [facility] Rx#: [id number] Potassium Phosphate 10 100 mmol In Sodium Chloride 0 .9% 100 ml @ 50 mls/hr IV ONCE ONE Rx#:[id number] cefTRIAXone 1,000 mg In 50 Sodium Chloride 0.9% 50 ml @ 100 mls/hr IVPB Q24HR [facility] Rx#:[id number] Intake, IV Titration 215.665 104.539 Amount Midazolam HCl 100 mg In 62.1 Sodium Chloride 0.9% 80 ml @ 5 MG/HR 5 mls/hr IV .Q20H [facility] Rx#:[id number] Norepinephrine 16 mg In 35.089 Sodium Chloride 0.9% 250 ml @ Titrate IV .Q0M [facility] Rx#:[id number] Propofol 1,000 mg In 153.565 69.45 Empty Bag 1 bag @ Titrate IV .Q0M [facility] Rx#: [id number] Tube Feeding 0 Output: Urine 1126 750 100 Stool 110 Estimated Blood Loss 2 Other: Voiding Method Indwelling Catheter Indwelling Catheter ABP, PAP, CO, CI - Last Documented Arterial Blood Pressure 140/73 - Exam No acute distress, sedated, with a fresh midline tracheostomy and fresh PEG tube. HEENT examination is grossly unremarkable. Mucous membranes are moist. No oral lesions. Neck supple. Full range of motion. No adenopathy thyromegaly or neck vein distention. A midline tracheostomy is noted. Cardiovascular examination reveals regular rhythm rate. S1-S2 normal. No S3 or S4. No discernible murmur noted. Heart rate is 90 bpm. Lungs reveal mostly clear breath sounds. Her sounds are equal bilaterally. There are a few scattered rhonchi. No wheezes or crackles. Abdomen soft bowel sounds are heard. No masses or tenderness. PEG tube is noted. Extremities are intact. No cyanosis clubbing or edema. Skin is without rash or lesion. Neurologic examination could not be assessed. - Labs CBC & Chem 7: 07/27/18 05:10 07/27/18 05:10 Labs: Abnormal Lab Results - Last 24 Hours (Table) 07/26/18 07/26/18 07/26/18 Range/Units 11:54 17:06 23:30 WBC (3.8-10.6) k/uL RBC (3.80-5.40) m/uL MCV (80.0-100.0) fL Neutrophils # (Manual) (1.3-7.7) k/uL Lymphocytes # (Manual) (1.0-4.8) k/uL Metamyelocytes # (Man) (0) k/uL ABG pH (7.35-7.45) ABG pO2 (83-108) mmHg ABG HCO3 (21-25) mmol/L ABG Total CO2 (19-24) mmol/L ABG O2 Saturation (94-97) % Chloride (98-107) mmol/L BUN (7-17) mg/dL Creatinine (0.52-1.04) mg/dL Glucose (74-99) mg/dL POC Glucose (mg/dL) 181 H 129 H 159 H (75-99) mg/dL Calcium (8.4-10.2) mg/dL 07/27/18 07/27/18 07/27/18 Range/Units 05:10 05:10 05:15 WBC 20.4 H (3.8-10.6) k/uL RBC 3.75 L (3.80-5.40) m/uL MCV 101.0 H (80.0-100.0) fL Neutrophils # (Manual) 19.10 H (1.3-7.7) k/uL Lymphocytes # (Manual) 0.41 L (1.0-4.8) k/uL Metamyelocytes # (Man) 0.20 H (0) k/uL ABG pH 7.47 H (7.35-7.45) ABG pO2 126 H (83-108) mmHg ABG HCO3 29 H (21-25) mmol/L ABG Total CO2 30 H (19-24) mmol/L ABG O2 Saturation 99.3 H (94-97) % Chloride 114 H (98-107) mmol/L BUN 22 H (7-17) mg/dL Creatinine 0.44 L (0.52-1.04) mg/dL Glucose 132 H (74-99) mg/dL POC Glucose (mg/dL) (75-99) mg/dL Calcium 6.8 L (8.4-10.2) mg/dL 07/27/18 Range/Units 06:21 WBC (3.8-10.6) k/uL RBC (3.80-5.40) m/uL MCV (80.0-100.0) fL Neutrophils # (Manual) (1.3-7.7) k/uL Lymphocytes # (Manual) (1.0-4.8) k/uL Metamyelocytes # (Man) (0) k/uL ABG pH (7.35-7.45) ABG pO2 (83-108) mmHg ABG HCO3 (21-25) mmol/L ABG Total CO2 (19-24) mmol/L ABG O2 Saturation (94-97) % Chloride (98-107) mmol/L BUN (7-17) mg/dL Creatinine (0.52-1.04) mg/dL Glucose (74-99) mg/dL POC Glucose (mg/dL) 168 H (75-99) mg/dL Calcium (8.4-10.2) mg/dL Assessment and Plan Assessment: Assessment Acute on chronic hypoxemic and hypercapnic respiratory failure secondary to severe stage III COPD and severe bullous emphysema Postop day #1, status post tracheostomy and PEG tube placement Severe oxygen-dependent COPD with an FEV1 at 36% of predicted. Chronic tobacco dependence Crohn's disease, with previous colectomy and diverting ostomy Previous history of right pneumothorax History of nephrolithiasis Hyperlipidemia by history History of hypothyroidism General medical debility Plan: Plan dated 07/27/2080 The patient's FiO2 was dropped to 30%. The patient will be weaned off the benzodiazepine. Certainly concerned about benzodiazepine-induced delirium. Later today, we'll resume tube feeds. The patient is postop day #1 status post tracheostomy and PEG tube placement. Microbiology is currently negative. White count is 20.4, hemoglobin 12.1, hematocrit 37.9 and platelet count 192, 000. Sodium and potassium were normal. Chloride is 114 CO2 24 BUN and creatinine 22 and 0.44 respectively. Hopefully, will be up to come off the Versed today. In addition, we'll try to do a spontaneous breathing trial once we aren't able to discontinue the propofol. Prognosis is guarded. We'll continue to follow. Solu-Medrol is reduced to 40 mg every 6 hours. Critical care time 34 minutes Time with Patient: Greater than 30
[2018-07-27] MEDS: AZITHROMYCIN 500 MG in SODIUM CHLORIDE 0.9% 250 ML IVPB SCH (09:20)
[2018-07-27] MEDS: PROPOFOL 1,000 MG in EMPTY BAG 1 BAG IV SCH ×2 (11:24→17:53)
[2018-07-27] MEDS: methylPREDNISolone SOD SUCCI 40 MG/ML 1 ML VIAL IV SCH ×2 (11:28→17:32)
[2018-07-27 12:22] LABS: Glucose,Whole Blood 142 mg/dL (75-99)
[2018-07-27] MEDS: HYDROcodone/APAP 15 ML SOLUTION PO PRN ×2 (12:25→18:52)
--- NOTE | 2018-07-27 12:26 | P.PN ---
Subjective Progress Note Date: 07/27/18 this is a 58-year-old pleasant female patient of Dr. Heber James. 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 Mistry treated with the dorsa Brio and albuterol in the outpatient setting. Also required home O2, she was transferred from [facility], admitted there 07/18/2018 secondary to COPD exacerbation. Patient required mechanical ventilation on admission, requiring Nimbex and propofol , was having difficulty in weaning off parameters, and currently is on Versed, which she has tolerated better. She also requires gentle diuresis, with IV Lasix, currently on a negative fluid balance. She is on empiric antibiotics in the form of Rocephin and Zithromax. They're planning on PEG and trach placement, however with the large bullae that was noted on routine x-rays yesterday, showing at least 25% of her left side, concern for pneumothorax, they [facility] to ICU transfer, uninterrupted mechanical ventilation during her transfers.patient is on levo fedSolu-Medrol 60 Lasix 20 mg every 8 hours. Patient has been off her Humira prior to admission. 07/25: Patient remains intubated and on mechanical ventilation with tidal volume 400, FiO2 40 and PEEP of 5. Patient is managed by Dr. Meza. Norepinephrine is currently on hold as well as sedation and Versed dose is being decreased. Potassium and magnesium have been replaced. Patient is on tube feedings tolerating at 35 mL per hour. Patient has been seen by cardiothoracic surgery with no plan for any surgical intervention regarding the bolus emphysema at this time. Repeat chest x-ray is stable, patchy left upper lobe density persist. Pleural effusion unchanged. Dr. Aguayo is on consult with plan for tracheostomy and PEG tube placement for tomorrow. Family updated at the bedside. 07/26: Patient remains in the intensive care unit intubated and on mechanical ventilation. Patient required levo fed last evening which has not been discontinued. She did have a period of low urine output during the night but this is improved. White count is down to 13.9. Potassium, magnesium and calcium are being replaced. Patient is scheduled for PEG tube and trach today with Dr. Aguayo. Family updated at the bedside. 07/27: Patient is status post trach and PEG tube. Tube feeding started this morning. She is off MRSA and propofol for spontaneous breathing trial today. Urine output has been running 50-80 mL per hour. The patient required small amount of Versed after being given Dilaudid 2 mg. Pain medication changed to Dilaudid 0.5 mg every 3 hours as needed and Killdeer elixir 15 ML's every 6 hours as needed Objective - Vital Signs Vital signs: Vital Signs Temp 98.3 F 07/27/18 08:00 Pulse 99 07/27/18 10:00 Resp 26 H 07/27/18 10:00 BP 133/83 07/25/18 13:00 Pulse Ox 97 07/27/18 10:00 Intake & Output 07/26/18 07/27/18 07/27/18 18:59 06:59 18:59 Intake Total 1735.665 656.539 263.775 Output Total 1128 860 210 Balance 607.665 -203.461 53.775 Weight 57.1 kg 57.1 kg Intake: IV 1520 552 175 0.9NS Pressure Bag 60 72 15 Azithromycin 500 mg In 250 Sodium Chloride 0.9% 250 ml @ 250 mls/hr IVPB DAILY [facility] Rx#:[id number] Dextrose 5%-0.45% NaCl 1, 360 480 160 000 ml @ 40 mls/hr IV . Q24H [facility] Rx#:[id number] Magnesium Sulfate-D5w Pmx 300 1 gm In Dextrose/Water 1 100ml.bag @ 100 mls/hr IVPB Q1H [facility] Rx#: [id number] Potassium Chloride 20 meq 200 In Water For Injection 1 100ml.bag @ 50 mls/hr IVPB Q2H [facility] Rx#: [id number] Potassium Phosphate 10 100 mmol In Sodium Chloride 0 .9% 100 ml @ 50 mls/hr IV ONCE ONE Rx#:[id number] cefTRIAXone 1,000 mg In 50 Sodium Chloride 0.9% 50 ml @ 100 mls/hr IVPB Q24HR [facility] Rx#:[id number] Intake, IV Titration 215.665 104.539 68.775 Amount Midazolam HCl 100 mg In 62.1 68.775 Sodium Chloride 0.9% 80 ml @ 5 MG/HR 5 mls/hr IV .Q20H [facility] Rx#:[id number] Norepinephrine 16 mg In 35.089 Sodium Chloride 0.9% 250 ml @ Titrate IV .Q0M [facility] Rx#:[id number] Propofol 1,000 mg In 153.565 69.45 Empty Bag 1 bag @ Titrate IV .Q0M [facility] Rx#: [id number] Tube Feeding 0 20 Output: Urine 1126 750 210 Stool 110 Estimated Blood Loss 2 Other: Voiding Method Indwelling Catheter Indwelling Catheter Indwelling Catheter ABP, PAP, CO, CI - Last Documented Arterial Blood Pressure 152/82 - Exam sedated on vent without respiratory distress - Constitutional General appearance: average body habitus, no acute distress - EENT Eyes: anicteric sclerae, EOMI, normal appearance ENT: NA/AT - Neck Neck: normal ROM Thyroid: bilateral: normal size, negative: enlarged - Respiratory Respiratory: bilateral: diminished - Cardiovascular Rhythm: regular (tachycardic) Heart sounds: normal: S1, S2 Abnormal Heart Sounds: no systolic murmur, no diastolic murmur, no rub, no S3 Gallop, no S4 Gallop, no click, no other - Gastrointestinal General gastrointestinal: normal bowel sounds, soft - Integumentary Integumentary: decreased turgor, normal - Labs CBC & Chem 7: 07/27/18 05:10 07/27/18 05:10 Labs: Abnormal Lab Results - Last 24 Hours (Table) 07/26/18 07/26/18 07/26/18 Range/Units 11:54 17:06 23:30 WBC (3.8-10.6) k/uL RBC (3.80-5.40) m/uL MCV (80.0-100.0) fL Neutrophils # (Manual) (1.3-7.7) k/uL Lymphocytes # (Manual) (1.0-4.8) k/uL Metamyelocytes # (Man) (0) k/uL ABG pH (7.35-7.45) ABG pO2 (83-108) mmHg ABG HCO3 (21-25) mmol/L ABG Total CO2 (19-24) mmol/L ABG O2 Saturation (94-97) % Chloride (98-107) mmol/L BUN (7-17) mg/dL Creatinine (0.52-1.04) mg/dL Glucose (74-99) mg/dL POC Glucose (mg/dL) 181 H 129 H 159 H (75-99) mg/dL Calcium (8.4-10.2) mg/dL 07/27/18 07/27/18 07/27/18 Range/Units 05:10 05:10 05:15 WBC 20.4 H (3.8-10.6) k/uL RBC 3.75 L (3.80-5.40) m/uL MCV 101.0 H (80.0-100.0) fL Neutrophils # (Manual) 19.10 H (1.3-7.7) k/uL Lymphocytes # (Manual) 0.41 L (1.0-4.8) k/uL Metamyelocytes # (Man) 0.20 H (0) k/uL ABG pH 7.47 H (7.35-7.45) ABG pO2 126 H (83-108) mmHg ABG HCO3 29 H (21-25) mmol/L ABG Total CO2 30 H (19-24) mmol/L ABG O2 Saturation 99.3 H (94-97) % Chloride 114 H (98-107) mmol/L BUN 22 H (7-17) mg/dL Creatinine 0.44 L (0.52-1.04) mg/dL Glucose 132 H (74-99) mg/dL POC Glucose (mg/dL) (75-99) mg/dL Calcium 6.8 L (8.4-10.2) mg/dL 07/27/18 Range/Units 06:21 WBC (3.8-10.6) k/uL RBC (3.80-5.40) m/uL MCV (80.0-100.0) fL Neutrophils # (Manual) (1.3-7.7) k/uL Lymphocytes # (Manual) (1.0-4.8) k/uL Metamyelocytes # (Man) (0) k/uL ABG pH (7.35-7.45) ABG pO2 (83-108) mmHg ABG HCO3 (21-25) mmol/L ABG Total CO2 (19-24) mmol/L ABG O2 Saturation (94-97) % Chloride (98-107) mmol/L BUN (7-17) mg/dL Creatinine (0.52-1.04) mg/dL Glucose (74-99) mg/dL POC Glucose (mg/dL) 168 H (75-99) mg/dL Calcium (8.4-10.2) mg/dL Assessment and Plan Plan: 1. Severe COPD exacerbation with acute on chronic hypercapnic and hypoxemic respiratory failure requiring intubation and mechanical ventilation, managed by Dr. Meza. COPD exacerbation with CT evidence of bullous emphysema left side. Consult with cardiothoracic surgery appreciated. Continue IV steroids, mechanical ventilation, levo fed only off, nebulized albuterol Atrovent. PEG tube and trach with Dr. gAuayo. 2. Sepsis with septic shock most likely secondary to pneumonia, currently off Levophed, continue on Rocephin and Zithromax. Pain medications adjusted 3. Chronic diastolic heart failure. IV Lasix is discontinued, monitor urine output, I's and O's. 4. Sinus tachycardia. Patient was on metoprolol 25 mg 3 times daily at [facility], currently on hold due to hypotension. 5. History of Crohn's, has ileostomy on the right side, patient currently off Humira can use Lomotil when necessary, 6. Generalized anxiety disorder, currently sedated, was on BuSpar prior to admission 7. Fibromyalgia with neuropathy, was on Killdeer 8. Severe protein calorie malnutrition requiring tube feedings with albumin of 2.8. PEG tube feedings started. DVT prophylaxis Heparin GI prophylaxis Protonix Discharge plan: To be determined Impression and plan of care have been directed as dictated by the signing physician. Gaby Rothman nurse practitioner acting as scribe for signing physician.
[2018-07-27] MEDS: HYDROmorphone 1 MG/ML 1 ML SYRINGE IVP PRN ×3 (13:13→22:06)
[2018-07-27 14:55] LABS: Magnesium 2.4 mg/dL (1.6-2.3); Potassium 4.6 mmol/L (3.5-5.1)
--- NOTE | 2018-07-27 15:23 | P.PN ---
Subjective Progress Note Date: 07/27/18 Principal diagnosis: Respiratory failure Patient stable on ventilator. Tolerating tube feeds at low-dose. No issues with the tracheostomy. Objective - Vital Signs Vital signs: Vital Signs Temp 98.6 F 07/27/18 12:00 Pulse 114 H 07/27/18 14:00 Resp 24 07/27/18 14:00 BP 133/83 07/25/18 13:00 Pulse Ox 94 L 07/27/18 14:00 Intake & Output 07/26/18 07/27/18 07/27/18 18:59 06:59 18:59 Intake Total 1735.665 756.539 900.911 Output Total 1128 860 600 Balance 607.665 -103.461 300.911 Weight 57.1 kg 57.1 kg Intake: IV 1520 552 747 0.9NS Pressure Bag 60 72 27 Azithromycin 500 mg In 250 250 Sodium Chloride 0.9% 250 ml @ 250 mls/hr IVPB DAILY [facility] Rx#:[id number] Dextrose 5%-0.45% NaCl 1, 360 480 320 000 ml @ 40 mls/hr IV . Q24H [facility] Rx#:[id number] Magnesium Sulfate-D5w Pmx 300 1 gm In Dextrose/Water 1 100ml.bag @ 100 mls/hr IVPB Q1H [facility] Rx#: [id number] Magnesium Sulfate-D5w Pmx 100 1 gm In Dextrose/Water 1 100ml.bag @ 100 mls/hr IVPB Q1H [facility] Rx#: [id number] Potassium Chloride 20 meq 200 In Water For Injection 1 100ml.bag @ 50 mls/hr IVPB Q2H [facility] Rx#: [id number] Potassium Phosphate 10 100 mmol In Sodium Chloride 0 .9% 100 ml @ 50 mls/hr IV ONCE ONE Rx#:[id number] cefTRIAXone 1,000 mg In 50 50 Sodium Chloride 0.9% 50 ml @ 100 mls/hr IVPB Q24HR [facility] Rx#:[id number] Intake, IV Titration 215.665 204.539 73.911 Amount Midazolam HCl 100 mg In 62.1 68.775 Sodium Chloride 0.9% 80 ml @ 5 MG/HR 5 mls/hr IV .Q20H [facility] Rx#:[id number] Norepinephrine 16 mg In 35.089 Sodium Chloride 0.9% 250 ml @ Titrate IV .Q0M [facility] Rx#:[id number] Propofol 1,000 mg In 153.565 169.45 5.136 Empty Bag 1 bag @ Titrate IV .Q0M [facility] Rx#: [id number] Tube Feeding 0 80 Output: Urine 1126 750 600 Stool 110 Estimated Blood Loss 2 Other: Voiding Method Indwelling Catheter Indwelling Catheter Indwelling Catheter ABP, PAP, CO, CI - Last Documented Arterial Blood Pressure 112/60 - Exam Tracheostomy and PEG tube sites clean and dry without significant drainage - Labs CBC & Chem 7: 07/27/18 05:10 07/27/18 14:10 Labs: Abnormal Lab Results - Last 24 Hours (Table) 07/26/18 07/26/18 07/27/18 Range/Units 17:06 23:30 05:10 WBC 20.4 H (3.8-10.6) k/uL RBC 3.75 L (3.80-5.40) m/uL MCV 101.0 H (80.0-100.0) fL Neutrophils # (Manual) 19.10 H (1.3-7.7) k/uL Lymphocytes # (Manual) 0.41 L (1.0-4.8) k/uL Metamyelocytes # (Man) 0.20 H (0) k/uL ABG pH (7.35-7.45) ABG pO2 (83-108) mmHg ABG HCO3 (21-25) mmol/L ABG Total CO2 (19-24) mmol/L ABG O2 Saturation (94-97) % Chloride (98-107) mmol/L BUN (7-17) mg/dL Creatinine (0.52-1.04) mg/dL Glucose (74-99) mg/dL POC Glucose (mg/dL) 129 H 159 H (75-99) mg/dL Calcium (8.4-10.2) mg/dL Magnesium (1.6-2.3) mg/dL 07/27/18 07/27/18 07/27/18 Range/Units 05:10 05:15 06:21 WBC (3.8-10.6) k/uL RBC (3.80-5.40) m/uL MCV (80.0-100.0) fL Neutrophils # (Manual) (1.3-7.7) k/uL Lymphocytes # (Manual) (1.0-4.8) k/uL Metamyelocytes # (Man) (0) k/uL ABG pH 7.47 H (7.35-7.45) ABG pO2 126 H (83-108) mmHg ABG HCO3 29 H (21-25) mmol/L ABG Total CO2 30 H (19-24) mmol/L ABG O2 Saturation 99.3 H (94-97) % Chloride 114 H (98-107) mmol/L BUN 22 H (7-17) mg/dL Creatinine 0.44 L (0.52-1.04) mg/dL Glucose 132 H (74-99) mg/dL POC Glucose (mg/dL) 168 H (75-99) mg/dL Calcium 6.8 L (8.4-10.2) mg/dL Magnesium (1.6-2.3) mg/dL 07/27/18 07/27/18 Range/Units 12:21 14:10 WBC (3.8-10.6) k/uL RBC (3.80-5.40) m/uL MCV (80.0-100.0) fL Neutrophils # (Manual) (1.3-7.7) k/uL Lymphocytes # (Manual) (1.0-4.8) k/uL Metamyelocytes # (Man) (0) k/uL ABG pH (7.35-7.45) ABG pO2 (83-108) mmHg ABG HCO3 (21-25) mmol/L ABG Total CO2 (19-24) mmol/L ABG O2 Saturation (94-97) % Chloride (98-107) mmol/L BUN (7-17) mg/dL Creatinine (0.52-1.04) mg/dL Glucose (74-99) mg/dL POC Glucose (mg/dL) 142 H (75-99) mg/dL Calcium (8.4-10.2) mg/dL Magnesium 2.4 H (1.6-2.3) mg/dL Assessment and Plan (1) Respiratory failure requiring intubation Narrative/Plan: Continue slowly advancing tube feeds. May remove tracheostomy ties tomorrow. Current Visit: Yes Status: Acute Code(s): J96.90 - RESPIRATORY FAILURE, UNSP , UNSP W HYPOXIA OR HYPERCAPNIA SNOMED Code(s): 722044433
[2018-07-27 16:13] LABS: Glucose,Whole Blood 155 mg/dL (75-99)
[2018-07-27] MEDS: FORMOTEROL FUMARATE 20 MCG/2 ML NEBU INHALATION SCH (19:58)
[2018-07-27 20:59] LABS: Glucose,Whole Blood 175 mg/dL (75-99)
[2018-07-27] MEDS: DEXTROSE 5%-0.45% NACL 1,000 ML IV SCH (21:00)
[2018-07-27] MEDS: MIDAZOLAM HCL 100 MG in SODIUM CHLORIDE 0.9% 80 ML IV SCH (22:24)
[2018-07-28 00:01] LABS: Glucose,Whole Blood 146 mg/dL (75-99)
[2018-07-28] MEDS: IPRATROPIUM-ALBUTEROL 3 ML NEB INHALATION SCH ×7 (00:06→23:55)
[2018-07-28] MEDS: PROPOFOL 1,000 MG in EMPTY BAG 1 BAG IV SCH ×5 (01:02→18:35)
[2018-07-28] MEDS: methylPREDNISolone SOD SUCCI 40 MG/ML 1 ML VIAL IV SCH ×5 (01:15→23:11)
[2018-07-28] MEDS: INSULIN ASPART 100 UNIT/ML 1 ML 10 ML VIAL SQ SCH ×7 (01:15→23:05)
[2018-07-28] MEDS: HYDROmorphone 1 MG/ML 1 ML SYRINGE IVP PRN ×4 (03:45→17:31)
[2018-07-28 04:51] LABS: ABG Base Excess 6.5 mmol/L; ABG HCO3 31 mmol/L (21-25); ABG Oxygen Saturation 97.1 % (94-97); ABG PCO2 44 mmHg (35-45); ABG PH 7.45 (7.35-7.45); ABG PO2 83 mmHg (83-108); ABG TCO2 32 mmol/L (19-24)
[2018-07-28 05:00] LABS: Glucose,Whole Blood 180 mg/dL (75-99)
[2018-07-28 05:26] LABS: HGB 10.7 gm/dL (11.4-16.0); MCH 32.3 pg (25.0-35.0); MCHC 31.5 g/dL (31.0-37.0); MCV 102.5 fL (80.0-100.0); Macrocytosis Slight; Mean Platelet Volume 7.5; Platelet Count 164 k/uL (150-450); RBC 3.31 m/uL (3.80-5.40); RDW 14.6 % (11.5-15.5); WBC 17.9 k/uL (3.8-10.6)
[2018-07-28 05:39] LABS: Anion Gap 6 mmol/L; Blood Urea Nitrogen 28 mg/dL (7-17); Calcium 8.8 mg/dL (8.4-10.2); Carbon Dioxide 27 mmol/L (22-30); Chloride 104 mmol/L (98-107); Glucose 161 mg/dL (74-99); Magnesium 1.9 mg/dL (1.6-2.3); Phosphorus 4.8 mg/dL (2.5-4.5); Sodium 137 mmol/L (137-145)
[2018-07-28 05:45] LABS: Potassium 4.5 mmol/L (3.5-5.1)
[2018-07-28 06:15] LABS: Band Neutrophils % 4 %; Lymphocytes # (M) 0.36 k/uL (1.0-4.8); Neutrophils % (M) 89 %; Nucleated Red Blood Cells 0 /100 WBC (0-0); Total Cells Counted 100
--- NOTE | 2018-07-28 06:59 | XR ---
EXAMINATION TYPE: XR chest 1V portable DATE OF EXAM: 07/28/2018 HISTORY: shortness of breath . REFERENCE: Previous study dated 06/26/2018. FINDINGS: The tracheostomy tube remains in place. Its tip overlies the tracheal air column in this si ngle frontal projection. There is a left internal jugular catheter in place. Its tip is in the superi or vena cava. There is improved aeration at the left lung base. Heart size is not increased. There is a small left effusion. IMPRESSION: TINY LEFT PLEURAL EFFUSION.
[2018-07-28] MEDS: FORMOTEROL FUMARATE 20 MCG/2 ML NEBU INHALATION SCH ×2 (07:42→20:23)
[2018-07-28] MEDS: BUDESONIDE 1 MG/2 ML NEBU INHALATION SCH ×2 (07:42→20:23)
[2018-07-28 08:51] LABS: Glucose,Whole Blood 149 mg/dL (75-99)
[2018-07-28] MEDS: AZITHROMYCIN 500 MG in SODIUM CHLORIDE 0.9% 250 ML IVPB SCH (10:01)
[2018-07-28] MEDS: PANTOPRAZOLE 40 MG/10 ML VIAL IVP SCH (10:01)
[2018-07-28] MEDS: CHLORHEXIDINE GLUCONATE 15 ML CUP MUCOUS MEM SCH ×2 (10:01→20:18)
[2018-07-28] MEDS: HEPARIN SODIUM,PORCINE 5,000 UNIT/ML 1 ML VIAL SQ SCH ×2 (10:01→20:19)
--- NOTE | 2018-07-28 10:02 | P.PN ---
Progress Note - Text Progress Note Date: 07/28/18 Patient more alert today. White blood cell count 17.9. Tolerating tube feeds. No tracheostomy issues.
--- NOTE | 2018-07-28 10:54 | P.PN ---
Subjective Progress Note Date: 07/28/18 this is a 58-year-old pleasant female patient of Dr. Heber James. 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 Mistry treated with the dorsa Brio and albuterol in the outpatient setting. Also required home O2, she was transferred from [facility], admitted there 07/18/2018 secondary to COPD exacerbation. Patient required mechanical ventilation on admission, requiring Nimbex and propofol , was having difficulty in weaning off parameters, and currently is on Versed, which she has tolerated better. She also requires gentle diuresis, with IV Lasix, currently on a negative fluid balance. She is on empiric antibiotics in the form of Rocephin and Zithromax. They're planning on PEG and trach placement, however with the large bullae that was noted on routine x-rays yesterday, showing at least 25% of her left side, concern for pneumothorax, they [facility], from IC to ICU transfer, uninterrupted mechanical ventilation during her transfers.patient is on levo fedSolu-Medrol 60 Lasix 20 mg every 8 hours. Patient has been off her Humira prior to admission. 07/25: Patient remains intubated and on mechanical ventilation with tidal volume 400, FiO2 40 and PEEP of 5. Patient is managed by Dr. Meza. Norepinephrine is currently on hold as well as sedation and Versed dose is being decreased. Potassium and magnesium have been replaced. Patient is on tube feedings tolerating at 35 mL per hour. Patient has been seen by cardiothoracic surgery with no plan for any surgical intervention regarding the bolus emphysema at this time. Repeat chest x-ray is stable, patchy left upper lobe density persist. Pleural effusion unchanged. Dr. Aguayo is on consult with plan for tracheostomy and PEG tube placement for tomorrow. Family updated at the bedside. 07/26: Patient remains in the intensive care unit intubated and on mechanical ventilation. Patient required levo fed last evening which has not been discontinued. She did have a period of low urine output during the night but this is improved. White count is down to 13.9. Potassium, magnesium and calcium are being replaced. Patient is scheduled for PEG tube and trach today with Dr. Aguayo. Family updated at the bedside. 07/27: Patient is status post trach and PEG tube. Tube feeding started this morning. She is off MRSA and propofol for spontaneous breathing trial today. Urine output has been running 50-80 mL per hour. The patient required small amount of Versed after being given Dilaudid 2 mg. Pain medication changed to Dilaudid 0.5 mg every 3 hours as needed and [place] elixir 15 ML's every 6 hours as needed 07/28: Patient is status post trach and PEG tube. Patient was on a sedation holiday yesterday experience agitation during that time. Patient continues to have sedation at this time. Unable to follow commands with right hand and bilateral lower extremities, has minimal movement of hand. Able to follow commands with left hand and arm. Urine output continues to be running 50/80 ML per hour. Sedation holiday to continue today. Patient continues to have Dilaudid for pain management. Will continue to slowly advance tube feeds and may remove tracheostomy ties today. Objective - Vital Signs Vital signs: Vital Signs Temp 98.9 F 07/28/18 09:00 Pulse 121 H 07/28/18 10:00 Resp 19 07/28/18 10:00 BP 133/83 07/25/18 13:00 Pulse Ox 95 07/28/18 10:00 Intake & Output 07/27/18 07/28/18 07/28/18 18:59 06:59 18:59 Intake Total 9641.823 5455.333 367 Output Total 1175 1350 875 Balance 158.573 -229.667 -508 Weight 57.1 kg Intake: IV 919 516 222 0.9NS Pressure Bag 39 36 12 Azithromycin 500 mg In 250 Sodium Chloride 0.9% 250 ml @ 250 mls/hr IVPB DAILY [facility] Rx#:[id number] Dextrose 5%-0.45% NaCl 1, 480 480 160 000 ml @ 40 mls/hr IV . Q24H [facility] Rx#:[id number] Magnesium Sulfate-D5w Pmx 100 1 gm In Dextrose/Water 1 100ml.bag @ 100 mls/hr IVPB Q1H [facility] Rx#: [id number] cefTRIAXone 1,000 mg In 50 50 Sodium Chloride 0.9% 50 ml @ 100 mls/hr IVPB Q24HR [facility] Rx#:[id number] Intake, IV Titration 164.573 154.333 100 Amount Midazolam HCl 100 mg In 68.775 Sodium Chloride 0.9% 80 ml @ 5 MG/HR 5 mls/hr IV .Q20H [facility] Rx#:[id number] Propofol 1,000 mg In 95.798 154.333 100 Empty Bag 1 bag @ Titrate IV .Q0M [facility] Rx#: [id number] Tube Feeding 220 390 45 Other 30 60 Output: Urine 1075 1200 875 Stool 100 150 Other: Voiding Method Indwelling Catheter Indwelling Catheter ABP, PAP, CO, CI - Last Documented Arterial Blood Pressure 132/64 - Exam Sedated with tracheostomy on that without respiratory distress. - Constitutional General appearance: Present: average body habitus, no acute distress - EENT Eyes: Present: anicteric sclerae, EOMI, normal appearance ENT: Present: NA/AT - Neck Neck: Present: normal ROM - Respiratory Respiratory: bilateral: diminished, negative: rales, rhonchi, wheezing - Cardiovascular Heart rate: 117 (sinus tachycardia) Rhythm: regular Heart sounds: normal: S1, S2 Abnormal Heart Sounds: Absent: systolic murmur, diastolic murmur, rub, S3 Gallop , S4 Gallop, click - Gastrointestinal General gastrointestinal: Present: normal bowel sounds, soft - Integumentary Integumentary: Present: decreased turgor. Absent: rash - Neurologic Neurologic Comment(s): Patient able to follow commands with left arm and hand. Minimal movement of right hand with commands. Unable to follow commands of lower extremity - Labs CBC & Chem 7: 07/28/18 05:00 07/28/18 05:00 Labs: Abnormal Lab Results - Last 24 Hours (Table) 07/27/18 07/27/18 07/27/18 Range/Units 12:21 14:10 16:12 WBC (3.8-10.6) k/uL RBC (3.80-5.40) m/uL Hgb (11.4-16.0) gm/dL MCV (80.0-100.0) fL Neutrophils # (Manual) (1.3-7.7) k/uL Lymphocytes # (Manual) (1.0-4.8) k/uL ABG HCO3 (21-25) mmol/L ABG Total CO2 (19-24) mmol/L ABG O2 Saturation (94-97) % BUN (7-17) mg/dL Creatinine (0.52-1.04) mg/dL Glucose (74-99) mg/dL POC Glucose (mg/dL) 142 H 155 H (75-99) mg/dL Phosphorus (2.5-4.5) mg/dL Magnesium 2.4 H (1.6-2.3) mg/dL 07/27/18 07/28/18 07/28/18 Range/Units 20:56 00:00 04:48 WBC (3.8-10.6) k/uL RBC (3.80-5.40) m/uL Hgb (11.4-16.0) gm/dL MCV (80.0-100.0) fL Neutrophils # (Manual) (1.3-7.7) k/uL Lymphocytes # (Manual) (1.0-4.8) k/uL ABG HCO3 31 H (21-25) mmol/L ABG Total CO2 32 H (19-24) mmol/L ABG O2 Saturation 97.1 H (94-97) % BUN (7-17) mg/dL Creatinine (0.52-1.04) mg/dL Glucose (74-99) mg/dL POC Glucose (mg/dL) 175 H 146 H (75-99) mg/dL Phosphorus (2.5-4.5) mg/dL Magnesium (1.6-2.3) mg/dL 07/28/18 07/28/18 07/28/18 Range/Units 04:59 05:00 05:00 WBC 17.9 H (3.8-10.6) k/uL RBC 3.31 L (3.80-5.40) m/uL Hgb 10.7 L (11.4-16.0) gm/dL MCV 102.5 H (80.0-100.0) fL Neutrophils # (Manual) 16.60 H (1.3-7.7) k/uL Lymphocytes # (Manual) 0.36 L (1.0-4.8) k/uL ABG HCO3 (21-25) mmol/L ABG Total CO2 (19-24) mmol/L ABG O2 Saturation (94-97) % BUN 28 H (7-17) mg/dL Creatinine 0.44 L (0.52-1.04) mg/dL Glucose 161 H (74-99) mg/dL POC Glucose (mg/dL) 180 H (75-99) mg/dL Phosphorus 4.8 H (2.5-4.5) mg/dL Magnesium (1.6-2.3) mg/dL 07/28/18 Range/Units 08:49 WBC (3.8-10.6) k/uL RBC (3.80-5.40) m/uL Hgb (11.4-16.0) gm/dL MCV (80.0-100.0) fL Neutrophils # (Manual) (1.3-7.7) k/uL Lymphocytes # (Manual) (1.0-4.8) k/uL ABG HCO3 (21-25) mmol/L ABG Total CO2 (19-24) mmol/L ABG O2 Saturation (94-97) % BUN (7-17) mg/dL Creatinine (0.52-1.04) mg/dL Glucose (74-99) mg/dL POC Glucose (mg/dL) 149 H (75-99) mg/dL Phosphorus (2.5-4.5) mg/dL Magnesium (1.6-2.3) mg/dL Assessment and Plan Plan: 1. Severe COPD exacerbation with acute on chronic hypercapnic and hypoxemic respiratory failure requiring intubation and mechanical ventilation, managed by Dr. Meza. COPD exacerbation with CT evidence of bullous emphysema left side. Consult with cardiothoracic surgery appreciated. Continue IV steroids, mechanical ventilation, levo fed only off, nebulized albuterol Atrovent. PEG tube and trach with Dr. Aguayo. No tracheostomy issues 2. Sepsis with septic shock most likely secondary to pneumonia, currently off Levophed, continue on Rocephin and Zithromax. Pain medications adjusted 3. Chronic diastolic heart failure. IV Lasix is discontinued, monitor urine output, I's and O's. 4. Sinus tachycardia. Patient was on metoprolol 25 mg 3 times daily at [facility], currently on hold due to hypotension. 5. History of Crohn's, has ileostomy on the right side, patient currently off Humira can use Lomotil when necessary, 6. Generalized anxiety disorder, currently sedated, was on BuSpar prior to admission 7. Fibromyalgia with neuropathy, was on [place] 8. Severe protein calorie malnutrition requiring tube feedings with albumin of 2.8. PEG tube feedings tolerated, will continue increase PEG tube feedings 9. Altered mental status changes, secondary to sepsis or sedation, difficult to assess related to sedation level, more appropriate following commands on left compared to right upper extremities, unable to follow commands lower extremities. Will hold off further testing until reassessment tomorrow with continued decrease of sedation medications. DVT prophylaxis Heparin GI prophylaxis Protonix Discharge plan: To be determined Impression and plan of care have been directed as dictated by the signing physician. Juani Mejia nurse practitioner acting as scribe for signing physician. Time with Patient: Less than 30
--- NOTE | 2018-07-28 11:27 | P.PN ---
Subjective Progress Note Date: 07/28/18 Principal diagnosis: Respiratory failure, bolus emphysema, COPD, Progress note dated 07/27/2018 This is a 58-year-old female with history of hypoxemic and hypercapnic respiratory failure secondary to severe COPD and bullous emphysema. The patient underwent a tracheostomy in PEG tube placement yesterday by Dr. Fernando Aguayo. The patient has severe COPD with an FEV1 that's 36% of predicted has a history of chronic tobacco dependence Crohn's disease with previous colectomy and diverting ostomy previous history of right pneumothorax nephrolithiasis hyperlipidemia and hypothyroidism. Currently, the patient's on the volume assist control mode with a rate of 16, tidal volume 400 FiO2 40% to be dropped down to 30% and 5 of PEEP. Today's blood gases show a PaO2 of 126 a PaCO2 of 39 and a pH of 7.47. The patient is currently on propofol at 35 mics per kilogram per minute. She's currently on Versed at 4.5 which will be weaned off and dextrose with half-normal saline at 40 mL now her. Chest x-ray looks relatively normal. Microbiology is negative. As mentioned above, tracheostomy and PEG tube was done yesterday on July 26. The plan today would be to wean her off the benzodiazepine wake her off and see if she is ready for a spontaneous breathing trial. Progress note dated 07/28/2018 58-year-old female with a history of hypoxemic and hypercapnic respiratory failure secondary to severe COPD and bullous emphysema. The patient had a tracheostomy and PEG tube placement on July 26. The patient has a FEV1 that is 36% of predicted. This is from chronic and heavy tobacco dependence. In addition, the patient has a history of Crohn's disease with previous colectomy and diverting ostomy, right pneumothorax, nephrolithiasis, hyperlipidemia and hypothyroidism. The patient remains in the ICU on mechanical ventilator. The vent settings include the volume assist control mode , with a rate of 16, tidal volume at 400, FiO2 30% and a PEEP of 5. Arterial blood gases show a PaO2 of 83 a PaCO2 of 44 and a pH of 7.45. The patient remains on propofol at 58 mics per kilogram per minute, D5.45 IV at KVO, vital high protein at 45 with a goal of 45 mL an hour. Chest x-rays consistent only with COPD. Because of ongoing chronic anxiety, the patient will get Ativan 0.5 mg IV every 6 hours. We were able to wean her off the Versed. Microbiology is all negative. Overall prognosis is very guarded given the severity of her chronic lung disease. Objective - Vital Signs Vital signs: Vital Signs Temp 98.9 F 07/28/18 09:00 Pulse 97 07/28/18 11:00 Resp 16 07/28/18 11:00 BP 133/83 07/25/18 13:00 Pulse Ox 95 07/28/18 11:00 Intake & Output 07/27/18 07/28/18 07/28/18 18:59 06:59 18:59 Intake Total 5766.907 3080.333 750 Output Total 1175 1350 1050 Balance 158.573 -229.667 -300 Weight 57.1 kg Intake: IV 919 516 515 0.9NS Pressure Bag 39 36 15 Azithromycin 500 mg In 250 250 Sodium Chloride 0.9% 250 ml @ 250 mls/hr IVPB DAILY [facility] Rx#:[id number] Dextrose 5%-0.45% NaCl 1, 480 480 200 000 ml @ 40 mls/hr IV . Q24H [facility] Rx#:[id number] Magnesium Sulfate-D5w Pmx 100 1 gm In Dextrose/Water 1 100ml.bag @ 100 mls/hr IVPB Q1H [facility] Rx#: [id number] cefTRIAXone 1,000 mg In 50 50 Sodium Chloride 0.9% 50 ml @ 100 mls/hr IVPB Q24HR [facility] Rx#:[id number] Intake, IV Titration 164.573 154.333 100 Amount Midazolam HCl 100 mg In 68.775 Sodium Chloride 0.9% 80 ml @ 5 MG/HR 5 mls/hr IV .Q20H [facility] Rx#:[id number] Propofol 1,000 mg In 95.798 154.333 100 Empty Bag 1 bag @ Titrate IV .Q0M [facility] Rx#: [id number] Tube Feeding 220 390 135 Other 30 60 Output: Urine 1075 1200 1050 Stool 100 150 Other: Voiding Method Indwelling Catheter Indwelling Catheter Indwelling Catheter ABP, PAP, CO, CI - Last Documented Arterial Blood Pressure 133/68 - Exam No acute distress, sedated, with a fresh midline tracheostomy and fresh PEG tube. The patient is a bit more awake today. HEENT examination is grossly unremarkable. Mucous membranes are moist. No oral lesions. Neck supple. Full range of motion. No adenopathy thyromegaly or neck vein distention. A midline tracheostomy is noted. Cardiovascular examination reveals regular rhythm rate. S1-S2 normal. No S3 or S4. No discernible murmur noted. Heart rate is 90 bpm. Lungs reveal mostly clear breath sounds. Her sounds are equal bilaterally. There are a few scattered rhonchi. No wheezes or crackles. Abdomen soft bowel sounds are heard. No masses or tenderness. PEG tube is noted. Extremities are intact. No cyanosis clubbing or edema. Skin is without rash or lesion. Neurologic examination is difficult to assess but she does arouse and open her eyes to verbal stimuli. - Labs CBC & Chem 7: 07/28/18 05:00 07/28/18 05:00 Labs: Abnormal Lab Results - Last 24 Hours (Table) 07/27/18 07/27/18 07/27/18 Range/Units 12:21 14:10 16:12 WBC (3.8-10.6) k/uL RBC (3.80-5.40) m/uL Hgb (11.4-16.0) gm/dL MCV (80.0-100.0) fL Neutrophils # (Manual) (1.3-7.7) k/uL Lymphocytes # (Manual) (1.0-4.8) k/uL ABG HCO3 (21-25) mmol/L ABG Total CO2 (19-24) mmol/L ABG O2 Saturation (94-97) % BUN (7-17) mg/dL Creatinine (0.52-1.04) mg/dL Glucose (74-99) mg/dL POC Glucose (mg/dL) 142 H 155 H (75-99) mg/dL Phosphorus (2.5-4.5) mg/dL Magnesium 2.4 H (1.6-2.3) mg/dL 07/27/18 07/28/18 07/28/18 Range/Units 20:56 00:00 04:48 WBC (3.8-10.6) k/uL RBC (3.80-5.40) m/uL Hgb (11.4-16.0) gm/dL MCV (80.0-100.0) fL Neutrophils # (Manual) (1.3-7.7) k/uL Lymphocytes # (Manual) (1.0-4.8) k/uL ABG HCO3 31 H (21-25) mmol/L ABG Total CO2 32 H (19-24) mmol/L ABG O2 Saturation 97.1 H (94-97) % BUN (7-17) mg/dL Creatinine (0.52-1.04) mg/dL Glucose (74-99) mg/dL POC Glucose (mg/dL) 175 H 146 H (75-99) mg/dL Phosphorus (2.5-4.5) mg/dL Magnesium (1.6-2.3) mg/dL 07/28/18 07/28/18 07/28/18 Range/Units 04:59 05:00 05:00 WBC 17.9 H (3.8-10.6) k/uL RBC 3.31 L (3.80-5.40) m/uL Hgb 10.7 L (11.4-16.0) gm/dL MCV 102.5 H (80.0-100.0) fL Neutrophils # (Manual) 16.60 H (1.3-7.7) k/uL Lymphocytes # (Manual) 0.36 L (1.0-4.8) k/uL ABG HCO3 (21-25) mmol/L ABG Total CO2 (19-24) mmol/L ABG O2 Saturation (94-97) % BUN 28 H (7-17) mg/dL Creatinine 0.44 L (0.52-1.04) mg/dL Glucose 161 H (74-99) mg/dL POC Glucose (mg/dL) 180 H (75-99) mg/dL Phosphorus 4.8 H (2.5-4.5) mg/dL Magnesium (1.6-2.3) mg/dL 07/28/18 Range/Units 08:49 WBC (3.8-10.6) k/uL RBC (3.80-5.40) m/uL Hgb (11.4-16.0) gm/dL MCV (80.0-100.0) fL Neutrophils # (Manual) (1.3-7.7) k/uL Lymphocytes # (Manual) (1.0-4.8) k/uL ABG HCO3 (21-25) mmol/L ABG Total CO2 (19-24) mmol/L ABG O2 Saturation (94-97) % BUN (7-17) mg/dL Creatinine (0.52-1.04) mg/dL Glucose (74-99) mg/dL POC Glucose (mg/dL) 149 H (75-99) mg/dL Phosphorus (2.5-4.5) mg/dL Magnesium (1.6-2.3) mg/dL Assessment and Plan Assessment: Assessment Acute on chronic hypoxemic and hypercapnic respiratory failure secondary to severe stage III COPD and severe bullous emphysema Postop day #2, status post tracheostomy and PEG tube placement Severe oxygen-dependent COPD with an FEV1 at 36% of predicted. Chronic tobacco dependence Crohn's disease, with previous colectomy and diverting ostomy Previous history of right pneumothorax History of nephrolithiasis Hyperlipidemia by history History of hypothyroidism General medical debility Plan: Plan dated 07/27/2080 The patient's FiO2 was dropped to 30%. The patient will be weaned off the benzodiazepine. Certainly concerned about benzodiazepine-induced delirium. Later today, we'll resume tube feeds. The patient is postop day #1 status post tracheostomy and PEG tube placement. Microbiology is currently negative. White count is 20.4, hemoglobin 12.1, hematocrit 37.9 and platelet count 192, 000. Sodium and potassium were normal. Chloride is 114 CO2 24 BUN and creatinine 22 and 0.44 respectively. Hopefully, will be up to come off the Versed today. In addition, we'll try to do a spontaneous breathing trial once we aren't able to discontinue the propofol. Prognosis is guarded. We'll continue to follow. Solu-Medrol is reduced to 40 mg every 6 hours. Critical care time 34 minutes Plan dated 07/28/2018 White count is 17.9, hemoglobin 10.7, hematocrit 34.0 and platelet count 164, 000. Blood gases have Vertie been noted. Sodium potassium chloride and CO2 are all normal. BUN is 28 and creatinine 0.44. Chest x-ray shows changes only of COPD. There is a midline tracheostomy. The patient is receiving nutrition. Overall prognosis is guarded. Versed was weaned off yesterday. Medications are reviewed. Additional recommendations and suggestions are forthcoming. Critical care time 32 minutes Time with Patient: Greater than 30
[2018-07-28] MEDS: LORazepam 2 MG/ML INJ IV SCH ×3 (12:30→23:06)
[2018-07-28 12:52] LABS: Glucose,Whole Blood 168 mg/dL (75-99)
[2018-07-28] MEDS: MAGNESIUM SULFATE-D5W PMX 1 GM in DEXTROSE/WATER 1 100ML.BAG IVPB SCH ×2 (12:58→15:09)
[2018-07-28] MEDS: DEXTROSE 5%-0.45% NACL 1,000 ML IV SCH (15:33)
[2018-07-28 16:33] LABS: Glucose,Whole Blood 156 mg/dL (75-99)
[2018-07-28 19:51] LABS: Glucose,Whole Blood 137 mg/dL (75-99)
[2018-07-28 23:07] LABS: Glucose,Whole Blood 98 mg/dL (75-99)
[2018-07-29 03:49] LABS: Glucose,Whole Blood 191 mg/dL (75-99)
[2018-07-29] MEDS: PROPOFOL 1,000 MG in EMPTY BAG 1 BAG IV SCH (03:49)
[2018-07-29] MEDS: HYDROcodone/APAP 15 ML SOLUTION PO PRN ×2 (03:50→14:59)
[2018-07-29] MEDS: IPRATROPIUM-ALBUTEROL 3 ML NEB INHALATION SCH ×5 (03:54→20:20)
[2018-07-29] MEDS: INSULIN ASPART 100 UNIT/ML 1 ML 10 ML VIAL SQ SCH ×5 (04:41→20:43)
[2018-07-29 05:11] LABS: Macrocytosis Slight
[2018-07-29 05:15] LABS: ABG Base Excess 5.4 mmol/L; ABG HCO3 29 mmol/L (21-25); ABG Oxygen Saturation 96.8 % (94-97); ABG PCO2 39 mmHg (35-45); ABG PH 7.48 (7.35-7.45); ABG PO2 78 mmHg (83-108); ABG TCO2 30 mmol/L (19-24)
[2018-07-29 05:20] LABS: Anion Gap 7 mmol/L; Blood Urea Nitrogen 25 mg/dL (7-17); Calcium 8.9 mg/dL (8.4-10.2); Carbon Dioxide 27 mmol/L (22-30); Chloride 104 mmol/L (98-107); Glucose 165 mg/dL (74-99); Magnesium 1.9 mg/dL (1.6-2.3); Phosphorus 3.8 mg/dL (2.5-4.5); Potassium 4.3 mmol/L (3.5-5.1); Sodium 138 mmol/L (137-145)
[2018-07-29 05:44] LABS: HCT 35.5 % (34.0-46.0); HGB 11.4 gm/dL (11.4-16.0); MCH 32.5 pg (25.0-35.0); MCV 101.6 fL (80.0-100.0); Platelet Count 186 k/uL (150-450); RBC 3.49 m/uL (3.80-5.40); RDW 14.7 % (11.5-15.5); WBC 21.9 k/uL (3.8-10.6)
[2018-07-29] MEDS: MAGNESIUM SULFATE-D5W PMX 1 GM in DEXTROSE/WATER 1 100ML.BAG IVPB SCH ×2 (06:01→10:20)
[2018-07-29] MEDS: LORazepam 2 MG/ML INJ IV SCH ×3 (06:02→17:57)
[2018-07-29] MEDS: methylPREDNISolone SOD SUCCI 40 MG/ML 1 ML VIAL IV SCH ×3 (06:07→17:57)
[2018-07-29 06:49] LABS: Band Neutrophils % 7 %; Lymphocytes # (M) 0.66 k/uL (1.0-4.8); Metamyelocytes # (M) 0.88 k/uL (0); Metamyelocytes % 4 %; Monocytes # (M) 0.44 k/uL (0-1.0); Neutrophils % (M) 84 %; Nucleated Red Blood Cells 0 /100 WBC (0-0); Total Cells Counted 100
--- NOTE | 2018-07-29 06:50 | XR ---
EXAMINATION TYPE: XR chest 1V portable DATE OF EXAM: 07/29/2018 HISTORY: shortness of breath . REFERENCE: Previous study dated 07/28/2018. FINDINGS: The tracheostomy tube remains in place. Its tip overlies the tracheal air column in this si ngle frontal projection. A left internal jugular catheter is in place. Its tip is in the superior marcia a cava. Lung volumes are prominent. The lungs are clear. Heart size is normal. There is minimal blunting of t he left CP angle. IMPRESSION: 1. TINY LEFT PLEURAL EFFUSION. 2. CORRELATE FOR COPD.
[2018-07-29] MEDS: BUDESONIDE 1 MG/2 ML NEBU INHALATION SCH ×2 (07:37→20:20)
[2018-07-29] MEDS: FORMOTEROL FUMARATE 20 MCG/2 ML NEBU INHALATION SCH ×2 (07:37→20:20)
[2018-07-29 08:01] LABS: Glucose,Whole Blood 119 mg/dL (75-99)
[2018-07-29] MEDS: HEPARIN SODIUM,PORCINE 5,000 UNIT/ML 1 ML VIAL SQ SCH ×2 (08:01→20:43)
[2018-07-29] MEDS: PANTOPRAZOLE 40 MG/10 ML VIAL IVP SCH (08:01)
[2018-07-29] MEDS: CHLORHEXIDINE GLUCONATE 15 ML CUP MUCOUS MEM SCH ×2 (08:02→20:43)
[2018-07-29] MEDS: AZITHROMYCIN 500 MG in SODIUM CHLORIDE 0.9% 250 ML IVPB SCH (08:05)
--- NOTE | 2018-07-29 09:34 | P.PN ---
Subjective Progress Note Date: 07/29/18 Principal diagnosis: Respiratory failure, bolus emphysema, COPD, Progress note dated 07/27/2018 This is a 58-year-old female with history of hypoxemic and hypercapnic respiratory failure secondary to severe COPD and bullous emphysema. The patient underwent a tracheostomy in PEG tube placement yesterday by Dr. Fernando Aguayo. The patient has severe COPD with an FEV1 that's 36% of predicted has a history of chronic tobacco dependence Crohn's disease with previous colectomy and diverting ostomy previous history of right pneumothorax nephrolithiasis hyperlipidemia and hypothyroidism. Currently, the patient's on the volume assist control mode with a rate of 16, tidal volume 400 FiO2 40% to be dropped down to 30% and 5 of PEEP. Today's blood gases show a PaO2 of 126 a PaCO2 of 39 and a pH of 7.47. The patient is currently on propofol at 35 mics per kilogram per minute. She's currently on Versed at 4.5 which will be weaned off and dextrose with half-normal saline at 40 mL now her. Chest x-ray looks relatively normal. Microbiology is negative. As mentioned above, tracheostomy and PEG tube was done yesterday on July 26. The plan today would be to wean her off the benzodiazepine wake her off and see if she is ready for a spontaneous breathing trial. Progress note dated 07/28/2018 58-year-old female with a history of hypoxemic and hypercapnic respiratory failure secondary to severe COPD and bullous emphysema. The patient had a tracheostomy and PEG tube placement on July 26. The patient has a FEV1 that is 36% of predicted. This is from chronic and heavy tobacco dependence. In addition, the patient has a history of Crohn's disease with previous colectomy and diverting ostomy, right pneumothorax, nephrolithiasis, hyperlipidemia and hypothyroidism. The patient remains in the ICU on mechanical ventilator. The vent settings include the volume assist control mode , with a rate of 16, tidal volume at 400, FiO2 30% and a PEEP of 5. Arterial blood gases show a PaO2 of 83 a PaCO2 of 44 and a pH of 7.45. The patient remains on propofol at 58 mics per kilogram per minute, D5.45 IV at KVO, vital high protein at 45 with a goal of 45 mL an hour. Chest x-rays consistent only with COPD. Because of ongoing chronic anxiety, the patient will get Ativan 0.5 mg IV every 6 hours. We were able to wean her off the Versed. Microbiology is all negative. Overall prognosis is very guarded given the severity of her chronic lung disease. Progress note dated 07/29/2018 58-year-old female with history of hypoxemic and hypercapnic respiratory failure , severe COPD, and bullous emphysema. The patient had a tracheostomy and PEG tube placed on 07/26/2018. The patient's FEV1 is 36% of predicted. We will been able to wean her off the Versed and will currently weaning the propofol. The patient has a history of chronic and heavy tobacco dependence. In addition , the patient suffers from Crohn's disease and has a previous colectomy with diverting ostomy, right pneumothorax, nephrolithiasis, hyperlipidemia and hypothyroidism. The patient remains on life support with the volume assist control mode, rate is 16, tidal volume 400, FiO2 30% and PEEP of 5. Arterial blood gases show a PaO2 of 78 a PaCO2 of 39 and a pH 7.47. This is consistent with a mild metabolic alkalosis. She remains on propofol at 15 mics are kilogram per minute as well as dextrose and half-normal saline at 40 mL an hour and vital 1.2 at 35 with a goal of 35. We are going to stop the patient's propofol and do a spontaneous breathing trial if appropriate. Microbiologic studies are pending or negative. White count is 21.9, hemoglobin 11.4, hematocrit 35.5 and platelet count is normal. Electrolytes are normal. BUS 25 and creatinine is 0.47. Objective - Vital Signs Vital signs: Vital Signs Temp 99.1 F 07/29/18 08:00 Pulse 110 H 07/29/18 09:00 Resp 16 07/29/18 09:00 BP 118/67 07/29/18 06:00 Pulse Ox 96 07/29/18 09:00 Intake & Output 07/28/18 07/29/18 07/29/18 18:59 06:59 18:59 Intake Total 2089.413 1043.354 563.682 Output Total 1880 1975 275 Balance 209.413 -931.646 288.682 Weight 56.9 kg 56.2 kg Intake: IV 822 552 388 0.9NS Pressure Bag 42 72 18 Azithromycin 500 mg In 250 Sodium Chloride 0.9% 250 ml @ 250 mls/hr IVPB DAILY [facility] Rx#:[id number] Dextrose 5%-0.45% NaCl 1, 480 480 120 000 ml @ 40 mls/hr IV . Q24H [facility] Rx#:[id number] cefTRIAXone 1,000 mg In 50 250 Sodium Chloride 0.9% 50 ml @ 100 mls/hr IVPB Q24HR [facility] Rx#:[id number] Intake, IV Titration 457.413 86.354 40.682 Amount Magnesium Sulfate-D5w Pmx 200 1 gm In Dextrose/Water 1 100ml.bag @ 100 mls/hr IVPB Q1H [facility] Rx#: [id number] Propofol 1,000 mg In 257.413 86.354 40.682 Empty Bag 1 bag @ Titrate IV .Q0M [facility] Rx#: [id number] Tube Feeding 720 405 105 Other 90 30 Output: Urine 1780 1375 275 Stool 100 600 Other: Voiding Method Indwelling Catheter Indwelling Catheter Indwelling Catheter ABP, PAP, CO, CI - Last Documented Arterial Blood Pressure 130/68 - Labs CBC & Chem 7: 07/29/18 04:15 07/29/18 04:15 Labs: Abnormal Lab Results - Last 24 Hours (Table) 07/28/18 07/28/18 07/28/18 Range/Units 12:49 16:31 19:50 WBC (3.8-10.6) k/uL RBC (3.80-5.40) m/uL MCV (80.0-100.0) fL Neutrophils # (Manual) (1.3-7.7) k/uL Lymphocytes # (Manual) (1.0-4.8) k/uL Metamyelocytes # (Man) (0) k/uL ABG pH (7.35-7.45) ABG pO2 (83-108) mmHg ABG HCO3 (21-25) mmol/L ABG Total CO2 (19-24) mmol/L BUN (7-17) mg/dL Creatinine (0.52-1.04) mg/dL Glucose (74-99) mg/dL POC Glucose (mg/dL) 168 H 156 H 137 H (75-99) mg/dL 07/29/18 07/29/18 07/29/18 Range/Units 03:47 04:15 04:15 WBC 21.9 H (3.8-10.6) k/uL RBC 3.49 L (3.80-5.40) m/uL MCV 101.6 H (80.0-100.0) fL Neutrophils # (Manual) 19.90 H (1.3-7.7) k/uL Lymphocytes # (Manual) 0.66 L (1.0-4.8) k/uL Metamyelocytes # (Man) 0.88 H (0) k/uL ABG pH (7.35-7.45) ABG pO2 (83-108) mmHg ABG HCO3 (21-25) mmol/L ABG Total CO2 (19-24) mmol/L BUN 25 H (7-17) mg/dL Creatinine 0.47 L (0.52-1.04) mg/dL Glucose 165 H (74-99) mg/dL POC Glucose (mg/dL) 191 H (75-99) mg/dL 07/29/07/29/18 Range/Units 05:12 07:59 WBC (3.8-10.6) k/uL RBC (3.80-5.40) m/uL MCV (80.0-100.0) fL Neutrophils # (Manual) (1.3-7.7) k/uL Lymphocytes # (Manual) (1.0-4.8) k/uL Metamyelocytes # (Man) (0) k/uL ABG pH 7.48 H (7.35-7.45) ABG pO2 78 L (83-108) mmHg ABG HCO3 29 H (21-25) mmol/L ABG Total CO2 30 H (19-24) mmol/L BUN (7-17) mg/dL Creatinine (0.52-1.04) mg/dL Glucose (74-99) mg/dL POC Glucose (mg/dL) 119 H (75-99) mg/dL Assessment and Plan Assessment: Assessment Acute on chronic hypoxemic and hypercapnic respiratory failure secondary to severe stage III COPD and severe bullous emphysema Postop day #3, status post tracheostomy and PEG tube placement Severe oxygen-dependent COPD with an FEV1 at 36% of predicted. Chronic tobacco dependence Crohn's disease, with previous colectomy and diverting ostomy Previous history of right pneumothorax History of nephrolithiasis Hyperlipidemia by history History of hypothyroidism General medical debility Plan: Plan dated 07/27/2080 The patient's FiO2 was dropped to 30%. The patient will be weaned off the benzodiazepine. Certainly concerned about benzodiazepine-induced delirium. Later today, we'll resume tube feeds. The patient is postop day #1 status post tracheostomy and PEG tube placement. Microbiology is currently negative. White count is 20.4, hemoglobin 12.1, hematocrit 37.9 and platelet count 192, 000. Sodium and potassium were normal. Chloride is 114 CO2 24 BUN and creatinine 22 and 0.44 respectively. Hopefully, will be up to come off the Versed today. In addition, we'll try to do a spontaneous breathing trial once we aren't able to discontinue the propofol. Prognosis is guarded. We'll continue to follow. Solu-Medrol is reduced to 40 mg every 6 hours. Critical care time 34 minutes Plan dated 07/28/2018 White count is 17.9, hemoglobin 10.7, hematocrit 34.0 and platelet count 164, 000. Blood gases have Vertie been noted. Sodium potassium chloride and CO2 are all normal. BUN is 28 and creatinine 0.44. Chest x-ray shows changes only of COPD. There is a midline tracheostomy. The patient is receiving nutrition. Overall prognosis is guarded. Versed was weaned off yesterday. Medications are reviewed. Additional recommendations and suggestions are forthcoming. Critical care time 32 minutes Plan dated 07/29/2018 We will attempt a daily eruption of sedation and a spontaneous breathing trial today. We'll be able to wean the patient off the Versed. The propofol dose is down to 15 mics per kilogram per minute. The patient is receiving nutrition with vital 1.2 at 35 with a goal of 35 mL an hour. Labs and x-rays are reviewed. Chest x-ray shows mostly changes of COPD. There may be a very tiny left pleural effusion. The patient's labs and x-rays are reviewed. Prognosis is guarded. We'll continue to follow. The patient remains on azithromycin and ceftriaxone, empirically. Critical care time 33 minutes Time with Patient: Greater than 30
[2018-07-29] MEDS: HYDROmorphone 1 MG/ML 1 ML SYRINGE IVP PRN ×3 (11:04→20:44)
[2018-07-29 12:05] LABS: Glucose,Whole Blood 182 mg/dL (75-99)
--- NOTE | 2018-07-29 12:11 | P.PN ---
Subjective Progress Note Date: 07/29/18 this is a 58-year-old pleasant female patient of Dr. Heber James. 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 Mistry treated with the dorsa Brio and albuterol in the outpatient setting. Also required home O2, she was transferred from [facility], admitted there 07/18/2018 secondary to COPD exacerbation. Patient required mechanical ventilation on admission, requiring Nimbex and propofol , was having difficulty in weaning off parameters, and currently is on Versed, which she has tolerated better. She also requires gentle diuresis, with IV Lasix, currently on a negative fluid balance. She is on empiric antibiotics in the form of Rocephin and Zithromax. They're planning on PEG and trach placement, however with the large bullae that was noted on routine x-rays yesterday, showing at least 25% of her left side, concern for pneumothorax, they [facility] to ICU transfer, uninterrupted mechanical ventilation during her transfers.patient is on levo fedSolu-Medrol 60 Lasix 20 mg every 8 hours. Patient has been off her Humira prior to admission. 07/25: Patient remains intubated and on mechanical ventilation with tidal volume 400, FiO2 40 and PEEP of 5. Patient is managed by Dr. Meza. Norepinephrine is currently on hold as well as sedation and Versed dose is being decreased. Potassium and magnesium have been replaced. Patient is on tube feedings tolerating at 35 mL per hour. Patient has been seen by cardiothoracic surgery with no plan for any surgical intervention regarding the bolus emphysema at this time. Repeat chest x-ray is stable, patchy left upper lobe density persist. Pleural effusion unchanged. Dr. Aguayo is on consult with plan for tracheostomy and PEG tube placement for tomorrow. Family updated at the bedside. 07/26: Patient remains in the intensive care unit intubated and on mechanical ventilation. Patient required levo fed last evening which has not been discontinued. She did have a period of low urine output during the night but this is improved. White count is down to 13.9. Potassium, magnesium and calcium are being replaced. Patient is scheduled for PEG tube and trach today with Dr. Aguayo. Family updated at the bedside. 07/27: Patient is status post trach and PEG tube. Tube feeding started this morning. She is off MRSA and propofol for spontaneous breathing trial today. Urine output has been running 50-80 mL per hour. The patient required small amount of Versed after being given Dilaudid 2 mg. Pain medication changed to Dilaudid 0.5 mg every 3 hours as needed and Harwick elixir 15 ML's every 6 hours as needed 07/28: Patient is status post trach and PEG tube. Patient was on a sedation holiday yesterday experience agitation during that time. Patient continues to have sedation at this time. Unable to follow commands with right hand and bilateral lower extremities, has minimal movement of hand. Able to follow commands with left hand and arm. Urine output continues to be running 50/80 ML per hour. Sedation holiday to continue today. Patient continues to have Dilaudid for pain management. Will continue to slowly advance tube feeds and may remove tracheostomy ties today. 07/29: The patient had a tracheostomy and PEG tube placed on 07/26/2018. The patient's FEV1 is 36% of predicted. Patient is currently on ativan 0.5mg q 6 hours and CPAP trial. Arterial blood gases show a PaO2 of 78 a PaCO2 of 39 and a pH 7.47. This is consistent with a mild metabolic alkalosis. Microbiologic studies are pending or negative. White count is 21.9, hemoglobin 11.4, hematocrit 35.5 and platelet count is normal. Electrolytes are normal. BUS 25 and creatinine is 0.47. Urine output continues to be running 50/80 ML per hour. Patient is able to nod appropriately to questions. Patient is unable to follow commands to extremities. Limited monitor shows sinus tachycardia in the 110's. Objective - Vital Signs Vital signs: Vital Signs Temp 99.1 F 07/29/18 08:00 Pulse 100 07/29/18 11:34 Resp 26 H 07/29/18 11:00 BP 118/67 07/29/18 06:00 Pulse Ox 95 07/29/18 11:00 Intake & Output 09/07/29/18 07/29/18 18:59 06:59 18:59 Intake Total 2089.413 1043.354 925.682 Output Total 1880 1975 465 Balance 209.413 -931.646 460.682 Weight 56.9 kg 56.2 kg Intake: IV 822 552 580 0.9NS Pressure Bag 42 72 30 Azithromycin 500 mg In 250 Sodium Chloride 0.9% 250 ml @ 250 mls/hr IVPB DAILY [facility] Rx#:[id number] Dextrose 5%-0.45% NaCl 1, 480 480 200 000 ml @ 40 mls/hr IV . Q24H [facility] Rx#:[id number] cefTRIAXone 1,000 mg In 50 350 Sodium Chloride 0.9% 50 ml @ 100 mls/hr IVPB Q24HR [facility] Rx#:[id number] Intake, IV Titration 457.413 86.354 140.682 Amount Magnesium Sulfate-D5w Pmx 200 1 gm In Dextrose/Water 1 100ml.bag @ 100 mls/hr IVPB Q1H [facility] Rx#: [id number] Magnesium Sulfate-D5w Pmx 100 1 gm In Dextrose/Water 1 100ml.bag @ 100 mls/hr IVPB Q1H [facility] Rx#: [id number] Propofol 1,000 mg In 257.413 86.354 40.682 Empty Bag 1 bag @ Titrate IV .Q0M [facility] Rx#: [id number] Tube Feeding 720 405 175 Other 90 30 Output: Urine 1780 1375 465 Stool 100 600 Other: Voiding Method Indwelling Catheter Indwelling Catheter Indwelling Catheter ABP, PAP, CO, CI - Last Documented Arterial Blood Pressure 165/78 - Constitutional General appearance: Present: average body habitus, no acute distress - EENT Eyes: Present: anicteric sclerae, EOMI, PERRLA ENT: Present: NA/AT - Neck Neck: Present: normal ROM. Absent: lymphadenopathy, rigidity, stridor - Respiratory Respiratory: bilateral: diminished, rales, rhonchi, wheezing - Cardiovascular Heart rate: 112 Rhythm: regular Heart sounds: normal: S1, S2 Abnormal Heart Sounds: Absent: systolic murmur, diastolic murmur, rub, S3 Gallop , S4 Gallop, click - Gastrointestinal General gastrointestinal: Present: normal bowel sounds, soft. Absent: tenderness - Integumentary Integumentary: Present: decreased turgor. Absent: rash - Musculoskeletal Musculoskeletal Comment(s): Patient able to nod appropriately to questions asked. Patient attempts to follow extremity commands with minimal movement noted and left hand. - Labs CBC & Chem 7: 07/29/18 04:15 07/29/18 04:15 Labs: Abnormal Lab Results - Last 24 Hours (Table) 07/28/18 07/28/18 07/28/18 Range/Units 12:49 16:31 19:50 WBC (3.8-10.6) k/uL RBC (3.80-5.40) m/uL MCV (80.0-100.0) fL Neutrophils # (Manual) (1.3-7.7) k/uL Lymphocytes # (Manual) (1.0-4.8) k/uL Metamyelocytes # (Man) (0) k/uL ABG pH (7.35-7.45) ABG pO2 (83-108) mmHg ABG HCO3 (21-25) mmol/L ABG Total CO2 (19-24) mmol/L BUN (7-17) mg/dL Creatinine (0.52-1.04) mg/dL Glucose (74-99) mg/dL POC Glucose (mg/dL) 168 H 156 H 137 H (75-99) mg/dL 07/29/18 07/29/18 07/29/18 Range/Units 03:47 04:15 04:15 WBC 21.9 H (3.8-10.6) k/uL RBC 3.49 L (3.80-5.40) m/uL MCV 101.6 H (80.0-100.0) fL Neutrophils # (Manual) 19.90 H (1.3-7.7) k/uL Lymphocytes # (Manual) 0.66 L (1.0-4.8) k/uL Metamyelocytes # (Man) 0.88 H (0) k/uL ABG pH (7.35-7.45) ABG pO2 (83-108) mmHg ABG HCO3 (21-25) mmol/L ABG Total CO2 (19-24) mmol/L BUN 25 H (7-17) mg/dL Creatinine 0.47 L (0.52-1.04) mg/dL Glucose 165 H (74-99) mg/dL POC Glucose (mg/dL) 191 H (75-99) mg/dL 07/29/18 07/29/18 Range/Units 05:12 07:59 WBC (3.8-10.6) k/uL RBC (3.80-5.40) m/uL MCV (80.0-100.0) fL Neutrophils # (Manual) (1.3-7.7) k/uL Lymphocytes # (Manual) (1.0-4.8) k/uL Metamyelocytes # (Man) (0) k/uL ABG pH 7.48 H (7.35-7.45) ABG pO2 78 L (83-108) mmHg ABG HCO3 29 H (21-25) mmol/L ABG Total CO2 30 H (19-24) mmol/L BUN (7-17) mg/dL Creatinine (0.52-1.04) mg/dL Glucose (74-99) mg/dL POC Glucose (mg/dL) 119 H (75-99) mg/dL Assessment and Plan Plan: 1. Severe COPD exacerbation with acute on chronic hypercapnic and hypoxemic respiratory failure requiring intubation and mechanical ventilation, managed by Dr. Meza. COPD exacerbation with CT evidence of bullous emphysema left side. Consult with cardiothoracic surgery appreciated. Continue IV steroids, mechanical ventilation, levo fed only off, nebulized albuterol Atrovent. PEG tube and trach with Dr. Aguayo. No tracheostomy issues 2. Sepsis with septic shock most likely secondary to pneumonia, currently off Levophed, continue on Rocephin and Zithromax. Pain medications adjusted 3. Chronic diastolic heart failure. IV Lasix is discontinued, monitor urine output, I's and O's. 4. Sinus tachycardia. Patient was on metoprolol 25 mg 3 times daily at [facility], currently on hold due to hypotension. 5. History of Crohn's, has ileostomy on the right side, patient currently off Humira can use Lomotil when necessary, 6. Generalized anxiety disorder, currently sedated, was on BuSpar prior to admission 7. Fibromyalgia with neuropathy, was on Harwick 8. Severe protein calorie malnutrition requiring tube feedings with albumin of 2.8. PEG tube feedings tolerated, will continue increase PEG tube feedings 9. Altered mental status changes, secondary to sepsis or sedation, difficult to assess related to sedation level, more appropriate following commands on left compared to right upper extremities, unable to follow commands lower extremities. Will hold off further testing until reassessment tomorrow with continued decrease of sedation medications. 10. Critical illness myopathy, will obtain a CK-MB, consult neurology. DVT prophylaxis Heparin GI prophylaxis Protonix Discharge plan: To be determined Impression and plan of care have been directed as dictated by the signing physician. Juani Mejia nurse practitioner acting as scribe for signing physician.
[2018-07-29] MEDS: DEXTROSE 5%-0.45% NACL 1,000 ML IV SCH (13:21)
[2018-07-29 16:21] LABS: Glucose,Whole Blood 147 mg/dL (75-99)
[2018-07-29] MEDS: OPIUM PO SCH ×2 (18:08→20:44)
[2018-07-29 20:36] LABS: Glucose,Whole Blood 134 mg/dL (75-99)
[2018-07-29 23:48] LABS: Glucose,Whole Blood 133 mg/dL (75-99)
[2018-07-30] MEDS: methylPREDNISolone SOD SUCCI 40 MG/ML 1 ML VIAL IV SCH ×2 (00:27→07:07)
[2018-07-30] MEDS: LORazepam 2 MG/ML INJ IV SCH ×5 (00:27→23:00)
[2018-07-30] MEDS: INSULIN ASPART 100 UNIT/ML 1 ML 10 ML VIAL SQ SCH ×6 (00:27→20:36)
[2018-07-30] MEDS: IPRATROPIUM-ALBUTEROL 3 ML NEB INHALATION SCH ×6 (00:33→19:49)
[2018-07-30] MEDS: HYDROmorphone 1 MG/ML 1 ML SYRINGE IVP PRN ×6 (00:37→20:30)
[2018-07-30 04:07] LABS: Glucose,Whole Blood 127 mg/dL (75-99)
[2018-07-30 04:47] LABS: HCT 33.5 % (34.0-46.0); MCH 32.4 pg (25.0-35.0); MCHC 32.7 g/dL (31.0-37.0); MCV 98.9 fL (80.0-100.0); Mean Platelet Volume 7.6; Platelet Count 199 k/uL (150-450); RBC 3.39 m/uL (3.80-5.40); RDW 14.6 % (11.5-15.5); WBC 26.2 k/uL (3.8-10.6)
[2018-07-30 04:54] LABS: Anion Gap 5 mmol/L; Blood Urea Nitrogen 23 mg/dL (7-17); Calcium 8.9 mg/dL (8.4-10.2); Carbon Dioxide 29 mmol/L (22-30); Chloride 101 mmol/L (98-107); Glucose 122 mg/dL (74-99); Magnesium 1.7 mg/dL (1.6-2.3); Phosphorus 3.8 mg/dL (2.5-4.5); Potassium 4.2 mmol/L (3.5-5.1); Sodium 135 mmol/L (137-145)
[2018-07-30 05:22] LABS: Band Neutrophils % 2 %; Lymphocytes # (M) 0.52 k/uL (1.0-4.8); Monocytes # (M) 1.05 k/uL (0-1.0); Myelocytes # (M) 0.79 k/uL (0); Myelocytes % 3 %; Neutrophils % (M) 91 %; Nucleated Red Blood Cells 0 /100 WBC (0-0); Total Cells Counted 200
--- NOTE | 2018-07-30 07:50 | XR ---
EXAMINATION TYPE: XR chest 1V portable DATE OF EXAM: 07/24/2018 COMPARISON: 07/29/2018 HISTORY: SOB, Follow Up FINDINGS: Indwelling tubes and catheters are unchanged. The lungs are hyperinflated without focal infiltrate identified. Mild linear atelectasis at the left medial lung base. Right-sided rib fractures are redemonstrated Stable appearance of the cardio-mediastinal structures at this time. IMPRESSION: 1. The lungs are hyperinflated without focal infiltrate identified. Mild linear atelectasis at the l eft medial lung base.
[2018-07-30 08:24] LABS: Glucose,Whole Blood 133 mg/dL (75-99)
[2018-07-30] MEDS: BUDESONIDE 1 MG/2 ML NEBU INHALATION SCH ×2 (08:25→19:49)
[2018-07-30] MEDS: FORMOTEROL FUMARATE 20 MCG/2 ML NEBU INHALATION SCH ×2 (08:25→19:49)
[2018-07-30] MEDS: PANTOPRAZOLE 40 MG/10 ML VIAL IVP SCH (08:51)
[2018-07-30] MEDS: HEPARIN SODIUM,PORCINE 5,000 UNIT/ML 1 ML VIAL SQ SCH ×2 (08:52→20:36)
[2018-07-30] MEDS: AZITHROMYCIN 500 MG in SODIUM CHLORIDE 0.9% 250 ML IVPB SCH (08:52)
[2018-07-30] MEDS: MAGNESIUM SULFATE-D5W PMX 1 GM in DEXTROSE/WATER 1 100ML.BAG IVPB SCH ×2 (08:52→10:28)
[2018-07-30] MEDS: OPIUM PO SCH (09:12)
[2018-07-30 11:19] LABS: Glucose,Whole Blood 151 mg/dL (75-99)
[2018-07-30] MEDS: DILTIAZEM ORAL 60 MG TAB PO SCH ×3 (11:55→22:56)
[2018-07-30] MEDS ORDERED: OPIUM TINCTURE PO SCH (13:00)
--- NOTE | 2018-07-30 13:25 | P.PN ---
Subjective Progress Note Date: 07/30/18 this is a 58-year-old pleasant female patient of Dr. Heber James. 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 Mistry treated with the dorsa Brio and albuterol in the outpatient setting. Also required home O2, she was transferred from [facility], admitted there 07/18/2018 secondary to COPD exacerbation. Patient required mechanical ventilation on admission, requiring Nimbex and propofol , was having difficulty in weaning off parameters, and currently is on Versed, which she has tolerated better. She also requires gentle diuresis, with IV Lasix, currently on a negative fluid balance. She is on empiric antibiotics in the form of Rocephin and Zithromax. They're planning on PEG and trach placement, however with the large bullae that was noted on routine x-rays yesterday, showing at least 25% of her left side, concern for pneumothorax, they have [facility], from IC to ICU transfer, uninterrupted mechanical ventilation during her transfers.patient is on levo fedSolu-Medrol 60 Lasix 20 mg every 8 hours. Patient has been off her Humira prior to admission. 07/25: Patient remains intubated and on mechanical ventilation with tidal volume 400, FiO2 40 and PEEP of 5. Patient is managed by Dr. Meza. Norepinephrine is currently on hold as well as sedation and Versed dose is being decreased. Potassium and magnesium have been replaced. Patient is on tube feedings tolerating at 35 mL per hour. Patient has been seen by cardiothoracic surgery with no plan for any surgical intervention regarding the bolus emphysema at this time. Repeat chest x-ray is stable, patchy left upper lobe density persist. Pleural effusion unchanged. Dr. Aguayo is on consult with plan for tracheostomy and PEG tube placement for tomorrow. Family updated at the bedside. 07/26: Patient remains in the intensive care unit intubated and on mechanical ventilation. Patient required levo fed last evening which has not been discontinued. She did have a period of low urine output during the night but this is improved. White count is down to 13.9. Potassium, magnesium and calcium are being replaced. Patient is scheduled for PEG tube and trach today with Dr. Aguayo. Family updated at the bedside. 07/27: Patient is status post trach and PEG tube. Tube feeding started this morning. She is off MRSA and propofol for spontaneous breathing trial today. Urine output has been running 50-80 mL per hour. The patient required small amount of Versed after being given Dilaudid 2 mg. Pain medication changed to Dilaudid 0.5 mg every 3 hours as needed and [place] elixir 15 ML's every 6 hours as needed 07/28: Patient is status post trach and PEG tube. Patient was on a sedation holiday yesterday experience agitation during that time. Patient continues to have sedation at this time. Unable to follow commands with right hand and bilateral lower extremities, has minimal movement of hand. Able to follow commands with left hand and arm. Urine output continues to be running 50/80 ML per hour. Sedation holiday to continue today. Patient continues to have Dilaudid for pain management. Will continue to slowly advance tube feeds and may remove tracheostomy ties today. 07/29: The patient had a tracheostomy and PEG tube placed on 07/26/2018. The patient's FEV1 is 36% of predicted. Patient is currently on ativan 0.5mg q 6 hours and CPAP trial. Arterial blood gases show a PaO2 of 78 a PaCO2 of 39 and a pH 7.47. This is consistent with a mild metabolic alkalosis. Microbiologic studies are pending or negative. White count is 21.9, hemoglobin 11.4, hematocrit 35.5 and platelet count is normal. Electrolytes are normal. BUS 25 and creatinine is 0.47. Urine output continues to be running 50/80 ML per hour. Patient is able to nod appropriately to questions. Patient is unable to follow commands to extremities. Limited monitor shows sinus tachycardia in the 110's. 07/30: Patient remains in the intensive care unit. She is on a trach collar and tolerating tube feedings. Neurology consult is pending. She is currently on Solu-Medrol 40 mg every 6 hours and changed to oral prednisone for tomorrow. She is complaining of stomach pain. Patient is able to communicate. Opium dose verified and to be started. Discussed with case preparer and liner regarding Celexa especially Hospital transfer of this week. Objective - Vital Signs Vital signs: Vital Signs Temp 98.4 F 07/30/18 04:00 Pulse 96 07/30/18 08:40 Resp 16 07/30/18 07:00 BP 162/80 07/30/18 07:00 Pulse Ox 94 L 07/30/18 07:00 Intake & Output 07/29/18 07/30/18 07/30/18 18:59 06:59 18:59 Intake Total 5670.513 2117 81 Output Total 1605 990 60 Balance 17.682 32 21 Weight 55.7 kg Intake: IV 902 512 46 0.9NS Pressure Bag 72 72 6 Dextrose 5%-0.45% NaCl 1, 480 440 40 000 ml @ 40 mls/hr IV . Q24H ME[facility]U Rx#:[id number] cefTRIAXone 1,000 mg In 350 Sodium Chloride 0.9% 50 ml @ 100 mls/hr IVPB Q24HR MEENU Rx#:[id number] Intake, IV Titration 140.682 Amount Magnesium Sulfate-D5w Pmx 100 1 gm In Dextrose/Water 1 100ml.bag @ 100 mls/hr IVPB Q1H ME[facility]U Rx#: [id number] Propofol 1,000 mg In 40.682 Empty Bag 1 bag @ Titrate IV .Q0M MEENU Rx#: [id number] Tube Feeding 490 420 35 Other 90 90 Output: Urine 1605 990 60 Other: Voiding Method Indwelling Catheter Indwelling Catheter ABP, PAP, CO, CI - Last Documented Arterial Blood Pressure 149/69 - Exam General appearance: Present: average body habitus, no acute distress - EENT Eyes: Present: anicteric sclerae, EOMI, PERRLA ENT: Present: NA/AT - Neck Neck: Present: normal ROM. Absent: lymphadenopathy, rigidity, stridor - Respiratory Respiratory: bilateral: diminished, rales, rhonchi, wheezing - Cardiovascular Heart rate: 112 Rhythm: regular Heart sounds: normal: S1, S2 Abnormal Heart Sounds: Absent: systolic murmur, diastolic murmur, rub, S3 Gallop , S4 Gallop, click - Gastrointestinal General gastrointestinal: Present: normal bowel sounds, soft. Absent: tenderness - Integumentary Integumentary: Present: decreased turgor. Absent: rash - Musculoskeletal Musculoskeletal Comment(s): Patient able to nod appropriately to questions asked. Patient attempts to follow extremity commands with generalized weakness to upper and lower extremities. - Labs CBC & Chem 7: 07/30/18 04:00 07/30/18 04:00 Labs: Abnormal Lab Results - Last 24 Hours (Table) 07/29/18 07/29/18 07/29/18 Range/Units 12:04 16:18 20:34 WBC (3.8-10.6) k/uL RBC (3.80-5.40) m/uL Hgb (11.4-16.0) gm/dL Hct (34.0-46.0) % Neutrophils # (Manual) (1.3-7.7) k/uL Lymphocytes # (Manual) (1.0-4.8) k/uL Monocytes # (Manual) (0-1.0) k/uL Myelocytes # (Manual) (0) k/uL Sodium (137-145) mmol/L BUN (7-17) mg/dL Creatinine (0.52-1.04) mg/dL Glucose (74-99) mg/dL POC Glucose (mg/dL) 182 H 147 H 134 H (75-99) mg/dL 07/29/18 07/30/18 07/30/18 Range/Units 23:47 03:56 04:00 WBC 26.2 H (3.8-10.6) k/uL RBC 3.39 L (3.80-5.40) m/uL Hgb 11.0 L (11.4-16.0) gm/dL Hct 33.5 L (34.0-46.0) % Neutrophils # (Manual) 24.30 H (1.3-7.7) k/uL Lymphocytes # (Manual) 0.52 L (1.0-4.8) k/uL Monocytes # (Manual) 1.05 H (0-1.0) k/uL Myelocytes # (Manual) 0.79 H (0) k/uL Sodium (137-145) mmol/L BUN (7-17) mg/dL Creatinine (0.52-1.04) mg/dL Glucose (74-99) mg/dL POC Glucose (mg/dL) 133 H 127 H (75-99) mg/dL 07/30/18 07/30/18 Range/Units 04:00 08:22 WBC (3.8-10.6) k/uL RBC (3.80-5.40) m/uL Hgb (11.4-16.0) gm/dL Hct (34.0-46.0) % Neutrophils # (Manual) (1.3-7.7) k/uL Lymphocytes # (Manual) (1.0-4.8) k/uL Monocytes # (Manual) (0-1.0) k/uL Myelocytes # (Manual) (0) k/uL Sodium 135 L (137-145) mmol/L BUN 23 H (7-17) mg/dL Creatinine 0.40 L (0.52-1.04) mg/dL Glucose 122 H (74-99) mg/dL POC Glucose (mg/dL) 133 H (75-99) mg/dL Assessment and Plan Plan: 1. Severe COPD exacerbation with acute on chronic hypercapnic and hypoxemic respiratory failure requiring intubation and mechanical ventilation, managed by Dr. Meza. COPD exacerbation with CT evidence of bullous emphysema left side. Consult with cardiothoracic surgery appreciated. Continue IV steroids, mechanical ventilation, levo fed only off, nebulized albuterol Atrovent. PEG tube and trach with Dr. Aguayo. 2. Sepsis with septic shock most likely secondary to pneumonia, currently off Levophed, continue on Rocephin and Zithromax. Pain medications adjusted 3. Chronic diastolic heart failure. IV Lasix is discontinued, monitor urine output, I's and O's. 4. Sinus tachycardia. Patient was on metoprolol 25 mg 3 times daily at [facility], currently on hold due to hypotension. 5. History of Crohn's, has ileostomy on the right side, patient currently off Humira can use Lomotil when necessary 6. Generalized anxiety disorder, currently sedated, was on BuSpar prior to admission 7. Fibromyalgia with neuropathy, was on [place] 8. Severe protein calorie malnutrition requiring tube feedings with albumin of 2.8. PEG tube feedings started. 9. Altered mental status changes, metabolic encephalopathy, secondary to sepsis or sedation, but improved from the weekend. Will hold off further testing until reassessment tomorrow with continued decrease of sedation medications. Neurology on consult. 10. Critical illness myopathy, will obtain a CK-MB, consult neurology. DVT prophylaxis Heparin GI prophylaxis Protonix Discharge plan: To be determined most likely still especially Hospital this week. Impression and plan of care have been directed as dictated by the signing physician. Gaby Rothman nurse practitioner acting as scribe for signing physician.
[2018-07-30] MEDS: OPIUM TINCTURE PO SCH ×3 (13:41→20:37)
[2018-07-30] MEDS: DEXTROSE 5%-0.45% NACL 1,000 ML IV SCH (13:43)
[2018-07-30 15:44] LABS: Glucose,Whole Blood 171 mg/dL (75-99)
--- NOTE | 2018-07-30 16:59 | P.PN ---
Subjective Progress Note Date: 07/30/18 On 07/30/2018 I'm seeing Caitie for a follow-up. The prevent the is well-known to me and the patient has advanced COPD/severe with bullous emphysema. The patient came in with acute COPD exacerbation went into respiratory failure requiring intubation mechanical ventilation. She got transferred from [facility] for questionable pneumothorax which ultimately turned out to be large bullae based on the CAT scan findings. As such no need for chest tube was seen. The patient continue the bronchodilators and steroids and antibiotics. During her prolonged treatment, the patient required tracheostomy tube insertion suspecting that her respiratory failure will be rather a long- term process. A PEG tube was also inserted. Currently the patient is a number AHI tracheostomy tube in place. Post trach estimated to be insertion the patient was gradually weaned off the sedation and paralytics and currently completely off. She is awake. She is profoundly weak hardly able to raise his arms against gravity and able to wiggle her toes yet she is unable to raise her feet or thighs or legs are gaze to gravity. She is responding to questions. She was able to recognize me. She is able to communicate. She is very much lethargic and weak still. She remains on a mechanical ventilator on assist control mode with a tidal volume of 400 with FiO2 of 30% and a PEEP of 5 and a rate of 16. The patient does not have any significant orotracheal secretions. The chest x-ray from today shows COPD and bullous changes in the upper lobes bilaterally and there is no evidence of any pneumothorax or his disease. White cell count is somewhat elevated and the patient has been on broad-spectrum steroids and antibiotics. She is tolerating enteral feeding through the PEG tube. She is currently in sinus rhythm and less tachycardic compared to past few days. She is receiving D5 half-normal saline today to 40 mL an hour. She is on DuoNeb nebulized treatments addition to a combination of Perforomist and Pulmicort neb last treatment twice a day, and she was on IV Solu-Medrol and I'm going to cut her down to 30 mg of prednisone as part of burst taper 9 that she has significant degree of myopathy or muscle weakness. No muscle weakness was probably due to a combination of systemic steroids on long-term paralytic use. Objective - Vital Signs Vital signs: Vital Signs Temp 98.8 F 07/30/18 16:00 Pulse 96 07/30/18 16:19 Resp 23 07/30/18 16:00 BP 162/80 07/30/18 07:00 Pulse Ox 97 07/30/18 16:00 Intake & Output 07/29/18 07/30/18 07/30/18 18:59 06:59 18:59 Intake Total 7449.510 8438 1195 Output Total 4479 532 7557 Balance 17.682 32 -605 Weight 55.7 kg 55.7 kg Intake: IV 902 512 810 0.9NS Pressure Bag 72 72 60 Azithromycin 500 mg In 250 Sodium Chloride 0.9% 250 ml @ 250 mls/hr IVPB DAILY [facility] Rx#:[id number] Dextrose 5%-0.45% NaCl 1, 480 440 400 000 ml @ 40 mls/hr IV . Q24H ME[facility]U Rx#:[id number] cefTRIAXone 1,000 mg In 350 100 Sodium Chloride 0.9% 50 ml @ 100 mls/hr IVPB Q24HR ME[facility]U Rx#:[id number] Intake, IV Titration 140.682 Amount Magnesium Sulfate-D5w Pmx 100 1 gm In Dextrose/Water 1 100ml.bag @ 100 mls/hr IVPB Q1H ME[facility]U Rx#: [id number] Propofol 1,000 mg In 40.682 Empty Bag 1 bag @ Titrate IV .Q0M MEENU Rx#: [id number] Tube Feeding 490 420 325 Other 90 90 60 Output: Urine 8971 906 1157 Stool 10 Other: Voiding Method Indwelling Catheter Indwelling Catheter Indwelling Catheter ABP, PAP, CO, CI - Last Documented Arterial Blood Pressure 175/82 - Exam The patient is awake and alert and not in acute distress. She is profoundly weak. She is able to communicate. She was able to recognize myself as I have been this patient's physician for many years. Head exam was generally normal. There was no scleral icterus or corneal arcus. Mucous membranes were moist. HEENT examination is grossly unremarkable. Mucous membranes are moist. No oral lesions. The patient is a tracheostomy tube in place and this is a #8 Shiley tracheostomy tube which is fenestrated uncuffed. Neck supple. Full range of motion. No adenopathy thyromegaly or neck vein distention. A midline tracheostomy is noted. Cardiovascular examination reveals regular rhythm rate. S1-S2 normal. No S3 or S4. Cardiac exam revealed the PMI to be normally situated and sized. The rhythm was regular and no extrasystoles were noted during several minutes of auscultation. The first and second heart sounds were normal and physiologic splitting of the second heart sound was noted. There were no murmurs, rubs, clicks, or gallops. Lungs reveal mostly clear breath sounds. Her sounds are equal bilaterally. There are a few scattered rhonchi. No wheezes or crackles. Abdomen soft bowel sounds are heard. No masses or tenderness. PEG tube is noted.Abdominal exam revealed normal bowel sounds. The abdomen was soft, non- tender, and without masses, organomegaly, or appreciable enlargement of the abdominal aorta. The ileostomy site is functional Extremities are intact. No cyanosis clubbing or edema. Skin is without rash or lesion. Neurologic examination shows that the patient is awake and communicating. No focal neurological deficits. Profound weakness and motor function is quite depressed as the patient has obvious signs of myopathy involving the upper and lower extremity. Motor function is 2 out of 5 in the upper and 1 out of 5 in lower without any Babinski or clonus. Refills are present in all 4 extremities. Pupils are equal and reactive to light. No facial asymmetry at this point in time. - Labs CBC & Chem 7: 07/30/18 04:00 07/30/18 04:00 Labs: Abnormal Lab Results - Last 24 Hours (Table) 07/29/18 07/29/18 07/30/18 Range/Units 20:34 23:47 03:56 WBC (3.8-10.6) k/uL RBC (3.80-5.40) m/uL Hgb (11.4-16.0) gm/dL Hct (34.0-46.0) % Neutrophils # (Manual) (1.3-7.7) k/uL Lymphocytes # (Manual) (1.0-4.8) k/uL Monocytes # (Manual) (0-1.0) k/uL Myelocytes # (Manual) (0) k/uL Sodium (137-145) mmol/L BUN (7-17) mg/dL Creatinine (0.52-1.04) mg/dL Glucose (74-99) mg/dL POC Glucose (mg/dL) 134 H 133 H 127 H (75-99) mg/dL 07/30/18 07/30/18 07/30/18 Range/Units 04:00 04:00 08:22 WBC 26.2 H (3.8-10.6) k/uL RBC 3.39 L (3.80-5.40) m/uL Hgb 11.0 L (11.4-16.0) gm/dL Hct 33.5 L (34.0-46.0) % Neutrophils # (Manual) 24.30 H (1.3-7.7) k/uL Lymphocytes # (Manual) 0.52 L (1.0-4.8) k/uL Monocytes # (Manual) 1.05 H (0-1.0) k/uL Myelocytes # (Manual) 0.79 H (0) k/uL Sodium 135 L (137-145) mmol/L BUN 23 H (7-17) mg/dL Creatinine 0.40 L (0.52-1.04) mg/dL Glucose 122 H (74-99) mg/dL POC Glucose (mg/dL) 133 H (75-99) mg/dL 07/30/18 07/30/18 Range/Units 11:18 15:42 WBC (3.8-10.6) k/uL RBC (3.80-5.40) m/uL Hgb (11.4-16.0) gm/dL Hct (34.0-46.0) % Neutrophils # (Manual) (1.3-7.7) k/uL Lymphocytes # (Manual) (1.0-4.8) k/uL Monocytes # (Manual) (0-1.0) k/uL Myelocytes # (Manual) (0) k/uL Sodium (137-145) mmol/L BUN (7-17) mg/dL Creatinine (0.52-1.04) mg/dL Glucose (74-99) mg/dL POC Glucose (mg/dL) 151 H 171 H (75-99) mg/dL Assessment and Plan Plan: 1 acute on chronic hypoxic and hypercapnic the story failure secondary to COPD exacerbation. The patient had prolonged ventilator dependent respiratory failure requiring sedation, paralysis with subsequent tracheostomy tube insertion following which the sedation and paralytics were discontinued. Currently the patient is off sedation and paralysis. The patient is awake and she is still on a mechanical ventilator. 2 severe COPD with bullous disease and chronic hypoxic history failure, with an FEV1 of 36% of predicted 3 previous history of pneumothoraces 4 chronic disease with previous colectomy and diverticular colostomy 5 severe muscle weakness/myopathy due to a combination of systemic steroids and paralytic use for prolonged period of time. The patient has profound weakness lower extremities bilaterally and in the upper extremities also although of a less severity 6 hyperlipidemia 7 hypothyroidism 8 nephrolithiasis 9 postoperative tube insertion and the patient is currently receiving enteral feeding for nutritional support Plan Continue vent support. No change in the vent setting. This continued IV 7 Medrol and put the patient on prednisone burst taper starting with 30 mg by mouth continue aggressive bronchodilators. Aggressive physical therapy and passive range of motion for now. Apply medical bruits to her lower extremities bilaterally. Continue enteral feeding for nutritional support. Avoid any form of sedation and paralytic agents for now. Continue the bronchodilators. Continue this the supportive care. Chest x-ray was reviewed.no evidence of pneumonia. The patient has completed antibiotic course and was stopping the Rocephin and Zithromax. The patient will be cultured should she develop any new onset fever. White cell count be monitored. Also, we'll put the patient on Cardizem 60 mg by mouth 3 times a day for better blood pressure and heart rate control. This will be a prolonged recovery. Long-term prognosis poor baseline above-mentioned comorbidities. She is quite young with advanced COPD. She was not smoking cigarettes based on history provided today. We'll continue to follow. There is a critically care evaluation that was done and 35 minutes. Time with Patient: Greater than 30
--- NOTE | 2018-07-30 18:00 | P.CNNES ---
History of Present Illness Consult date: 07/30/18 Requesting physician: Amadeo Sanchez Chief complaint: muscle weakness History of Present Illness: Neurology is consulting on a 58-year-old female with advanced COPD/severe bullous emphysema. Patient is in the ICU with acute COPD exacerbation that progressed into respiratory failure requiring intubation and mechanical ventilator use. patient was originally transferred from [facility] with possible/questionable normal thorax which ultimately turned out to be large bulla based on CT findings. Patient was continued on bronchodilators, steroids and antibiotics by bolter helper. Patient required tracheostomy, PEG tube. Patient currently has tracheostomy tube in place and was gradually weaned off sedation and paralytics. She is awake but profoundly weak and has difficulty raising upper extremities against gravity and is able to wiggle toes and slightly move lower extremities including feet and thighs against gravity when prompted. She does attempt to answer questions and communicate although difficult given the tracheostomy tube. She will blink eyes when directed, attempt to utilize written answers on paper she is still profoundly weak in the upper and lower extremities. On contact, nursing staff was in the room tending to patient, patient is alert, aware and interactive. Patient is in no acute distress. Patient's left lower extremity was in a boot. Review of Systems systems not noted in HPI or negative Past Medical History Past Medical History: COPD, Fibromyalgia, GERD/Reflux, GI Bleed, Hyperlipidemia , Hypertension, Osteoarthritis (OA), Pneumonia, Syncope Additional Past Medical History / Comment(s): COPD, crohn's, bowel obstructions , lower GI bleeds, hiatal hernia, osteoporosis, arthritis multiple joints, seasonal allergies, right-sided pneumothorax x2; ventilator with this admit 07/24 - transfer from [facility] r/t leelee History of Any Multi-Drug Resistant Organisms: None Reported Past Surgical History: Breast Surgery, Cholecystectomy, Hernia Repair, Hysterectomy, Orthopedic Surgery Additional Past Surgical History / Comment(s): Multiple bowel surgeries including total colectomy/ileostomy, ileostomy moved/repaired, R tube and R ovary removed due tectopic , total hysterectomy, leep procedure, laparoscopy for endometriosis, L breast lumpectomy-benign, r breast core bx- benign, EGD/colonoscopies. Right-sided Thora-vent placement May 09 and May 19. Eye surgery bilateral,arthroscopic knee surgery on he right due to ACL and Maniscal tear. Past Anesthesia/Blood Transfusion Reactions: No Reported Reaction Past Psychological History: Anxiety Smoking Status: Former smoker (quit in April 2018) Past Alcohol Use History: Unable to Obtain Past Drug Use History: Unable to Obtain - Past Family History Mother Family Medical History: Cancer, COPD, Hypertension Additional Family Medical History / Comment(s): Mother at age 83 from COPD and osteoarthritis and had skin cancer. Father Family Medical History: Cancer, CVA/TIA, Dementia, Diabetes Mellitus Additional Family Medical History / Comment(s): Father is 90yrs old. Brother(s) Family Medical History: Cancer Additional Family Medical History / Comment(s): Patient had 5 brothers and one of them from melanoma. Sister(s) History Unknown: Yes (mother disease at 83 from COPD with also arthritis skin cancer, father had cancer CVA dementia diabetes mellitus at age 90, 5 brothers one from melanoma, one sister who is healthy, no children) Family Medical History: No Reported History Additional Family Medical History / Comment(s): Patient has one sister. Patient has no kids. Medications and Allergies Home Medications Medication Instructions Recorded Confirmed Type Aclidinium [place] [Tudorza 400 mcg INHALATION RT-BID 06/21/14 07/24/18 History Pressair] Adalimumab [Humira Pen] 40 mg SQ TU 06/21/14 07/24/18 History Fluticasone/Vilanterol [Breo 1 puff INHALATION RT-DAILY 04/27/16 07/24/18 History Ellipta 100-25 Mcg Inhaler] Opium Tincture 0.8 mg PO QID 04/27/16 07/24/18 History Mercaptopurine [Purinethol] 50 mg PO BID 02/22/17 07/24/18 History busPIRone HCl [Buspar] 10 mg PO BID 05/09/17 07/24/18 History Atenolol 25 mg PO DAILY 05/20/17 07/24/18 History Latanoprost Ophth [Xalatan 0.005%] 1 drop BOTH EYES HS 05/21/17 07/24/18 History HYDROcodone/APAP 10-325MG [[place] 1 tab PO Q6HR PRN 06/24/17 07/24/18 History 10-325] Gabapentin [Neurontin] 300 mg PO TID 12/08/17 07/24/18 History Nystatin 100,000 Unit/ml Susp 500,000 unit PO QID PRN 05/16/18 07/24/18 History [Mycostatin Oral Susp] Albuterol Inhaler [Ventolin Hfa 1 puff INHALATION RT-DAILY 07/24/18 07/24/18 History Inhaler] Cholecalciferol (Vitamin D3) 2,000 unit PO DAILY 07/24/18 07/24/18 History [Vitamin D3] Clotrimazole/Betamethasone Dip 1 applic TOPICAL DAILY 07/24/18 07/24/18 History [Lotrisone Cream] Cyanocobalamin [Vitamin B-12 1,000 mcg SQ QMONTH 07/24/18 07/24/18 History Injection] Denosumab [Prolia] 60 mg SQ Q180D 07/24/18 07/24/18 History Dicyclomine [Bentyl] 10 mg PO TID 07/24/18 07/24/18 History Magnesium Oxide [Mag-Ox] 250 mg PO DAILY 07/24/18 07/24/18 History Meclizine [Antivert] 25 mg PO TID 07/24/18 07/24/18 History Melatonin 5 mg PO HS PRN 07/24/18 07/24/18 History Nystatin 100,000 Unit/gm Powd 1 applic TOPICAL BID 07/24/18 07/24/18 History [Mycostatin Powder] Ondansetron [Zofran] 4 mg PO Q6HR 07/24/18 07/24/18 History Allergies Allergy/AdvReac Type Severity Reaction Status Date / Time Iodinated Contrast- Oral and Allergy Anaphylaxis Verified 07/24/18 13:52 IV Dye pregabalin [From Lyrica] Allergy Unknown Verified 07/24/18 13:52 rofecoxib [From Vioxx] Allergy Unknown Verified 07/24/18 13:52 Sulfa (Sulfonamide Allergy Rash/Hives Verified 07/24/18 13:52 Antibiotics) aspirin AdvReac Internal Verified 07/24/18 13:52 Bleeding timolol [Timolol] AdvReac Nausea & Verified 07/24/18 13:52 Vomiting Physical Examination - Vital Signs Vital Signs: Vital Signs Temp Pulse Pulse Resp BP Pulse Ox 07/30/18 17:00 86 12 96 07/30/18 16:19 96 07/30/18 16:11 89 07/30/18 16:00 98.8 F 99 23 97 07/30/18 15:00 103 H 18 95 07/30/18 14:00 93 14 94 L 07/30/18 13:00 98 13 96 07/30/18 12:00 98.1 F 98 23 96 07/30/18 11:40 98 07/30/18 11:28 96 07/30/18 11:00 89 11 L 93 L 07/30/18 10:00 107 H 11 L 96 07/30/18 09:00 108 H 15 95 07/30/18 08:45 99 07/30/18 08:40 96 07/30/18 08:27 97 07/30/18 08:00 99.0 F 97 20 95 07/30/18 07:00 105 H 100 12 162/80 96 07/30/18 06:00 119 H 97 27 H 160/78 97 07/30/18 05:00 96 90 13 148/64 94 L 07/30/18 04:13 99 07/30/18 04:00 98.4 F 98 92 10 L 158/84 97 07/30/18 03:54 96 07/30/18 03:00 88 88 6 L 150/78 96 07/30/18 02:00 89 90 11 L 138/70 94 L 07/30/18 01:00 87 88 13 140/78 92 L 07/30/18 00:49 101 H 07/30/18 00:35 99 07/30/18 00:00 98.1 F 83 88 13 148/87 96 07/29/18 23:09 90 12 94 L 07/29/18 23:00 86 12 95 07/29/18 22:00 81 14 95 07/29/18 21:28 87 07/29/18 21:17 88 07/29/18 21:09 87 07/29/18 21:00 108 H 20 95 07/29/18 20:00 98.4 F 100 27 H 95 07/29/18 19:00 112 H 15 96 07/29/18 18:00 115 H 21 95 Intake and Output 07/30/18 07/30/18 07/30/18 06:59 14:59 22:59 Intake Total 708 933 308 Output Total 415 7505 710 Balance 293 -386 -402 Intake: IV 368 718 138 0.9NS Pressure Bag 48 48 18 Azithromycin 500 mg In 250 Sodium Chloride 0.9% 250 ml @ 250 mls/hr IVPB DAILY [facility] Rx#:[id number] Dextrose 5%-0.45% NaCl 1, 320 320 120 000 ml @ 40 mls/hr IV . Q24H [facility] Rx#:[id number] cefTRIAXone 1,000 mg In 100 Sodium Chloride 0.9% 50 ml @ 100 mls/hr IVPB Q24HR [facility] Rx#:[id number] Tube Feeding 280 215 110 Other 60 60 Output: Urine 415 1265 700 Stool 10 Other: Voiding Method Indwelling Catheter Indwelling Catheter Indwelling Catheter Weight 55.7 kg 55.7 kg ABP, PAP, CO, CI - Last 8 Hours Arterial Blood Pressure 133/66 Arterial Blood Pressure 175/82 Arterial Blood Pressure 173/78 Arterial Blood Pressure 171/84 Arterial Blood Pressure 168/90 Arterial Blood Pressure 171/86 Arterial Blood Pressure 141/72 Arterial Blood Pressure 172/89 General appearance: Alert, awake and interactive, no apparent distress. Head: Atraumatic, normocephalic, normal inspection Eyes: equal, round and reactive to light Ear, nose and throat: tracheostomy tube in place Neck: as noted above and ears nose and throat Respiratory: tracheostomy tube placed Cardiovascular: telemetry monitoring GI/abdominal: No guarding Extremities: extremely weak in all extremities Neurological: cranial nerves II through XII intact no lateralizing weakness, Profoundly weak in all 4 extremities no seizure activity noted on physical exam no facial asymmetry seen on physical exam no pronator drift and no nystagmus. Left lower extremity: 1/5 Right lower extremity: 1/5 Left upper extremity: 2-/5 Right upper extremity:2-/5 Sensation: present and equal in all 4 extremities Psychological: Mood and Affect appropriate for setting Results - Laboratory Findings CBC and BMP: 07/30/18 04:00 07/30/18 04:00 Abnormal Lab Findings: Abnormal Labs 07/24/18 07/24/18 07/24/18 13:22 14:32 15:50 WBC RBC Hgb Hct MCV Plt Count Neutrophils # Neutrophils # (Manual) Lymphocytes # Lymphocytes # (Manual) Monocytes # (Manual) Metamyelocytes # (Man) Myelocytes # (Manual) ABG pH ABG pCO2 ABG pO2 ABG HCO3 ABG Total CO2 ABG O2 Saturation Sodium Potassium Chloride Carbon Dioxide 37 H BUN 36 H Creatinine 0.45 L Glucose 142 H POC Glucose (mg/dL) 156 H 170 H Calcium 7.7 L Phosphorus Magnesium Albumin 07/24/18 07/24/18 07/25/18 15:50 21:26 02:23 WBC 18.8 H RBC 3.77 L Hgb Hct MCV 100.4 H Plt Count Neutrophils # 16.8 H Neutrophils # (Manual) Lymphocytes # 0.7 L Lymphocytes # (Manual) Monocytes # (Manual) Metamyelocytes # (Man) Myelocytes # (Manual) ABG pH ABG pCO2 ABG pO2 ABG HCO3 ABG Total CO2 ABG O2 Saturation Sodium Potassium Chloride Carbon Dioxide BUN Creatinine Glucose POC Glucose (mg/dL) 181 H 156 H Calcium Phosphorus Magnesium Albumin 07/25/18 07/25/18 07/25/18 04:20 04:20 04:44 WBC 16.4 H RBC Hgb Hct MCV 101.0 H Plt Count Neutrophils # 15.0 H Neutrophils # (Manual) Lymphocytes # 0.5 L Lymphocytes # (Manual) Monocytes # (Manual) Metamyelocytes # (Man) Myelocytes # (Manual) ABG pH 7.55 H ABG pCO2 47 H ABG pO2 82 L ABG HCO3 41 H* ABG Total CO2 42 H ABG O2 Saturation 97.7 H Sodium Potassium Chloride Carbon Dioxide 36 H BUN 33 H Creatinine Glucose 155 H POC Glucose (mg/dL) Calcium 8.1 L Phosphorus Magnesium Albumin 07/25/18 07/25/18 07/26/18 07:13 18:10 00:26 WBC RBC Hgb Hct MCV Plt Count Neutrophils # Neutrophils # (Manual) Lymphocytes # Lymphocytes # (Manual) Monocytes # (Manual) Metamyelocytes # (Man) Myelocytes # (Manual) ABG pH ABG pCO2 ABG pO2 ABG HCO3 ABG Total CO2 ABG O2 Saturation Sodium Potassium Chloride Carbon Dioxide BUN Creatinine Glucose POC Glucose (mg/dL) 153 H 175 H 182 H Calcium Phosphorus Magnesium Albumin 07/26/18 07/26/18 07/26/18 04:40 04:40 05:18 WBC 13.9 H RBC 3.71 L Hgb Hct MCV 102.1 H Plt Count 146 L Neutrophils # 12.9 H Neutrophils # (Manual) Lymphocytes # 0.4 L Lymphocytes # (Manual) Monocytes # (Manual) Metamyelocytes # (Man) Myelocytes # (Manual) ABG pH 7.52 H ABG pCO2 ABG pO2 82 L ABG HCO3 33 H ABG Total CO2 34 H ABG O2 Saturation 97.3 H Sodium Potassium 2.5 L* Chloride 120 H Carbon Dioxide BUN 23 H Creatinine 0.28 L Glucose 107 H POC Glucose (mg/dL) Calcium 5.6 L* Phosphorus 2.2 L Magnesium 1.4 L Albumin 07/26/18 07/26/18 07/26/18 06:19 07:06 11:54 WBC RBC Hgb Hct MCV Plt Count Neutrophils # Neutrophils # (Manual) Lymphocytes # Lymphocytes # (Manual) Monocytes # (Manual) Metamyelocytes # (Man) Myelocytes # (Manual) ABG pH ABG pCO2 ABG pO2 ABG HCO3 ABG Total CO2 ABG O2 Saturation Sodium Potassium Chloride Carbon Dioxide BUN Creatinine Glucose POC Glucose (mg/dL) 153 H 181 H Calcium Phosphorus Magnesium Albumin 2.8 L 07/26/18 07/26/18 07/27/18 17:06 23:30 05:10 WBC 20.4 H RBC 3.75 L Hgb Hct MCV 101.0 H Plt Count Neutrophils # Neutrophils # (Manual) 19.10 H Lymphocytes # Lymphocytes # (Manual) 0.41 L Monocytes # (Manual) Metamyelocytes # (Man) 0.20 H Myelocytes # (Manual) ABG pH ABG pCO2 ABG pO2 ABG HCO3 ABG Total CO2 ABG O2 Saturation Sodium Potassium Chloride Carbon Dioxide BUN Creatinine Glucose POC Glucose (mg/dL) 129 H 159 H Calcium Phosphorus Magnesium Albumin 07/27/18 07/27/18 07/27/18 05:10 05:15 06:21 WBC RBC Hgb Hct MCV Plt Count Neutrophils # Neutrophils # (Manual) Lymphocytes # Lymphocytes # (Manual) Monocytes # (Manual) Metamyelocytes # (Man) Myelocytes # (Manual) ABG pH 7.47 H ABG pCO2 ABG pO2 126 H ABG HCO3 29 H ABG Total CO2 30 H ABG O2 Saturation 99.3 H Sodium Potassium Chloride 114 H Carbon Dioxide BUN 22 H Creatinine 0.44 L Glucose 132 H POC Glucose (mg/dL) 168 H Calcium 6.8 L Phosphorus Magnesium Albumin 07/27/18 07/27/18 07/27/18 12:21 14:10 16:12 WBC RBC Hgb Hct MCV Plt Count Neutrophils # Neutrophils # (Manual) Lymphocytes # Lymphocytes # (Manual) Monocytes # (Manual) Metamyelocytes # (Man) Myelocytes # (Manual) ABG pH ABG pCO2 ABG pO2 ABG HCO3 ABG Total CO2 ABG O2 Saturation Sodium Potassium Chloride Carbon Dioxide BUN Creatinine Glucose POC Glucose (mg/dL) 142 H 155 H Calcium Phosphorus Magnesium 2.4 H Albumin 07/27/18 07/28/18 07/28/18 20:56 00:00 04:48 WBC RBC Hgb Hct MCV Plt Count Neutrophils # Neutrophils # (Manual) Lymphocytes # Lymphocytes # (Manual) Monocytes # (Manual) Metamyelocytes # (Man) Myelocytes # (Manual) ABG pH ABG pCO2 ABG pO2 ABG HCO3 31 H ABG Total CO2 32 H ABG O2 Saturation 97.1 H Sodium Potassium Chloride Carbon Dioxide BUN Creatinine Glucose POC Glucose (mg/dL) 175 H 146 H Calcium Phosphorus Magnesium Albumin 07/28/18 07/28/18 07/28/18 04:59 05:00 05:00 WBC 17.9 H RBC 3.31 L Hgb 10.7 L Hct MCV 102.5 H Plt Count Neutrophils # Neutrophils # (Manual) 16.60 H Lymphocytes # Lymphocytes # (Manual) 0.36 L Monocytes # (Manual) Metamyelocytes # (Man) Myelocytes # (Manual) ABG pH ABG pCO2 ABG pO2 ABG HCO3 ABG Total CO2 ABG O2 Saturation Sodium Potassium Chloride Carbon Dioxide BUN 28 H Creatinine 0.44 L Glucose 161 H POC Glucose (mg/dL) 180 H Calcium Phosphorus 4.8 H Magnesium Albumin 07/28/18 07/28/18 07/28/18 08:49 12:49 16:31 WBC RBC Hgb Hct MCV Plt Count Neutrophils # Neutrophils # (Manual) Lymphocytes # Lymphocytes # (Manual) Monocytes # (Manual) Metamyelocytes # (Man) Myelocytes # (Manual) ABG pH ABG pCO2 ABG pO2 ABG HCO3 ABG Total CO2 ABG O2 Saturation Sodium Potassium Chloride Carbon Dioxide BUN Creatinine Glucose POC Glucose (mg/dL) 149 H 168 H 156 H Calcium Phosphorus Magnesium Albumin 07/28/18 07/29/18 07/29/18 19:50 03:47 04:15 WBC 21.9 H RBC 3.49 L Hgb Hct MCV 101.6 H Plt Count Neutrophils # Neutrophils # (Manual) 19.90 H Lymphocytes # Lymphocytes # (Manual) 0.66 L Monocytes # (Manual) Metamyelocytes # (Man) 0.88 H Myelocytes # (Manual) ABG pH ABG pCO2 ABG pO2 ABG HCO3 ABG Total CO2 ABG O2 Saturation Sodium Potassium Chloride Carbon Dioxide BUN Creatinine Glucose POC Glucose (mg/dL) 137 H 191 H Calcium Phosphorus Magnesium Albumin 07/29/18 07/29/18 07/29/18 04:15 05:12 07:59 WBC RBC Hgb Hct MCV Plt Count Neutrophils # Neutrophils # (Manual) Lymphocytes # Lymphocytes # (Manual) Monocytes # (Manual) Metamyelocytes # (Man) Myelocytes # (Manual) ABG pH 7.48 H ABG pCO2 ABG pO2 78 L ABG HCO3 29 H ABG Total CO2 30 H ABG O2 Saturation Sodium Potassium Chloride Carbon Dioxide BUN 25 H Creatinine 0.47 L Glucose 165 H POC Glucose (mg/dL) 119 H Calcium Phosphorus Magnesium Albumin 07/29/18 07/29/18 07/29/18 12:04 16:18 20:34 WBC RBC Hgb Hct MCV Plt Count Neutrophils # Neutrophils # (Manual) Lymphocytes # Lymphocytes # (Manual) Monocytes # (Manual) Metamyelocytes # (Man) Myelocytes # (Manual) ABG pH ABG pCO2 ABG pO2 ABG HCO3 ABG Total CO2 ABG O2 Saturation Sodium Potassium Chloride Carbon Dioxide BUN Creatinine Glucose POC Glucose (mg/dL) 182 H 147 H 134 H Calcium Phosphorus Magnesium Albumin 07/29/18 07/30/18 07/30/18 23:47 03:56 04:00 WBC 26.2 H RBC 3.39 L Hgb 11.0 L Hct 33.5 L MCV Plt Count Neutrophils # Neutrophils # (Manual) 24.30 H Lymphocytes # Lymphocytes # (Manual) 0.52 L Monocytes # (Manual) 1.05 H Metamyelocytes # (Man) Myelocytes # (Manual) 0.79 H ABG pH ABG pCO2 ABG pO2 ABG HCO3 ABG Total CO2 ABG O2 Saturation Sodium Potassium Chloride Carbon Dioxide BUN Creatinine Glucose POC Glucose (mg/dL) 133 H 127 H Calcium Phosphorus Magnesium Albumin 07/30/18 07/30/18 07/30/18 04:00 08:22 11:18 WBC RBC Hgb Hct MCV Plt Count Neutrophils # Neutrophils # (Manual) Lymphocytes # Lymphocytes # (Manual) Monocytes # (Manual) Metamyelocytes # (Man) Myelocytes # (Manual) ABG pH ABG pCO2 ABG pO2 ABG HCO3 ABG Total CO2 ABG O2 Saturation Sodium 135 L Potassium Chloride Carbon Dioxide BUN 23 H Creatinine 0.40 L Glucose 122 H POC Glucose (mg/dL) 133 H 151 H Calcium Phosphorus Magnesium Albumin 07/30/18 15:42 WBC RBC Hgb Hct MCV Plt Count Neutrophils # Neutrophils # (Manual) Lymphocytes # Lymphocytes # (Manual) Monocytes # (Manual) Metamyelocytes # (Man) Myelocytes # (Manual) ABG pH ABG pCO2 ABG pO2 ABG HCO3 ABG Total CO2 ABG O2 Saturation Sodium Potassium Chloride Carbon Dioxide BUN Creatinine Glucose POC Glucose (mg/dL) 171 H Calcium Phosphorus Magnesium Albumin Assessment and Plan (1) Peripheral demyelinating neuropathy Current Visit: Yes Status: Acute Code(s): G62.89 - OTHER SPECIFIED POLYNEUROPATHIES SNOMED Code(s): 25820745 (2) Muscle weakness of lower extremity Current Visit: Yes Status: Acute Code(s): M62.81 - MUSCLE WEAKNESS ( GENERALIZED) SNOMED Code(s): 574656204 (3) Muscle weakness of upper extremity Current Visit: Yes Status: Acute Code(s): M62.81 - MUSCLE WEAKNESS ( GENERALIZED) SNOMED Code(s): 136905941 Plan: On physical exam findings are consistent with the patient's previous medical history, long-term medication use related to patient as needed treatment, patient does have with reasonable medical certainty demyelinating peripheral polyneuropathy in the upper and lower extremities bilaterally. Discussed diagnosis and circumstances with supervising physician as well as pharmacy rag room supervisor with regard to IVIG infusion therapy. IVIG infusion therapy to be ordered as follows: ordered: BUN and creatinine levels dailyif patient's BUN and creatinine is not within normal range, IVIG infusion will not be started or maintained until BUN and creatinine are within normal range. prescribed: 0.4 g/kg IVIG infusion per day 5 days status: Neurology will follow provide updates as needed or warranted. Feel free to contact our office with any questions. I have discussed the plan of care with the physician prior to implementation and he agrees with the plan as implemented.
[2018-07-30] MEDS ORDERED: IMMUNE GLOBULIN (GAMMAGARD) 20 GM in EMPTY BAG 1 BAG IV ONE (19:00)
[2018-07-30] MEDS ORDERED: IMMUNE GLOBULIN 20 GM/200 ML IV SCH (19:00)
[2018-07-30 20:05] LABS: Glucose,Whole Blood 116 mg/dL (75-99)
[2018-07-30 23:32] LABS: Glucose,Whole Blood 121 mg/dL (75-99)
[2018-07-31] MEDS: HYDROcodone/APAP 15 ML SOLUTION PO PRN ×2 (01:53→09:50)
[2018-07-31] MEDS: IPRATROPIUM-ALBUTEROL 3 ML NEB INHALATION SCH ×6 (03:40→20:30)
[2018-07-31 04:27] LABS: Basophils # (A) 0.1 k/uL (0-0.2); Basophils % (A) 0 %; Eosinophils # (A) 0.1 k/uL (0-0.7); Eosinophils % (A) 1 %; HGB 10.8 gm/dL (11.4-16.0); Lymphocytes # (A) 1.2 k/uL (1.0-4.8); Lymphocytes % (A) 7 %; MCH 32.4 pg (25.0-35.0); MCHC 32.7 g/dL (31.0-37.0); MCV 99.1 fL (80.0-100.0); Mean Platelet Volume 7.3; Monocytes % (A) 6 %; Neutrophils # (A) 15.1 k/uL (1.3-7.7); Neutrophils % (A) 86 %; Platelet Count 174 k/uL (150-450); RBC 3.33 m/uL (3.80-5.40); RDW 14.4 % (11.5-15.5); WBC 17.5 k/uL (3.8-10.6)
[2018-07-31] MEDS: HYDROmorphone 1 MG/ML 1 ML SYRINGE IVP PRN (04:30)
[2018-07-31 04:37] LABS: Anion Gap 2 mmol/L; Blood Urea Nitrogen 19 mg/dL (7-17); Calcium 7.4 mg/dL (8.4-10.2); Carbon Dioxide 27 mmol/L (22-30); Chloride 108 mmol/L (98-107); Glucose 104 mg/dL (74-99); Magnesium 1.4 mg/dL (1.6-2.3); Phosphorus 2.7 mg/dL (2.5-4.5); Potassium 3.1 mmol/L (3.5-5.1); Sodium 137 mmol/L (137-145)
[2018-07-31] MEDS: INSULIN ASPART 100 UNIT/ML 1 ML 10 ML VIAL SQ SCH ×6 (05:00→20:21)
[2018-07-31 05:09] LABS: Glucose,Whole Blood 102 mg/dL (75-99)
[2018-07-31] MEDS ORDERED: Potassium Replacement Protocol 1 EACH MISC MISCELLANE PRN (05:39)
[2018-07-31] MEDS ORDERED: Magnesium Replacement Protocol 1 EACH MISC MISCELLANE PRN (05:39)
[2018-07-31] MEDS: LORazepam 2 MG/ML INJ IV SCH ×4 (06:39→23:06)
[2018-07-31] MEDS: MAGNESIUM SULFATE-D5W PMX 1 GM in DEXTROSE/WATER 1 100ML.BAG IVPB SCH ×3 (06:46→09:20)
[2018-07-31] MEDS: POTASSIUM BICARBONATE/CIT AC 20 MEQ TABLET.EFF NG-TUBE SCH ×2 (06:48→07:53)
[2018-07-31] MEDS: OPIUM TINCTURE PO SCH ×4 (07:55→21:01)
[2018-07-31 08:14] LABS: Glucose,Whole Blood 118 mg/dL (75-99)
--- NOTE | 2018-07-31 08:24 | XR ---
EXAMINATION TYPE: XR chest 1V portable DATE OF EXAM: 07/31/2018 COMPARISON: 07/30/2018 HISTORY: Shortness of breath TECHNIQUE: Single frontal view of the chest is obtained. FINDINGS: Tracheostomy tube is seen and there is an irregular mass or density in the left upper lobe . Chronic rib deformities are seen and there is a central line. Hyperinflation suggests COPD. Arthrop athy of the shoulders. No overt failure. IMPRESSION: 1. COPD with suspicion for left upper lobe lung mass. Findings stable dating back to 12/18/2017
[2018-07-31] MEDS: BUDESONIDE 1 MG/2 ML NEBU INHALATION SCH ×2 (08:31→20:24)
[2018-07-31] MEDS: FORMOTEROL FUMARATE 20 MCG/2 ML NEBU INHALATION SCH ×2 (08:31→20:24)
[2018-07-31] MEDS: DILTIAZEM ORAL 60 MG TAB PO SCH ×3 (09:20→21:02)
[2018-07-31] MEDS: PANTOPRAZOLE 40 MG/10 ML VIAL IVP SCH (09:20)
[2018-07-31] MEDS: HEPARIN SODIUM,PORCINE 5,000 UNIT/ML 1 ML VIAL SQ SCH ×2 (09:20→21:01)
[2018-07-31] MEDS: predniSONE 10 MG TAB PO SCH (09:21)
[2018-07-31] MEDS ORDERED: HYDROmorphone 1 MG/ML 1 ML SYRINGE IVP PRN (09:37)
[2018-07-31 11:53] LABS: Glucose,Whole Blood 165 mg/dL (75-99)
--- NOTE | 2018-07-31 12:43 | P.PN ---
Subjective Progress Note Date: 07/31/18 On 07/30/2018 I'm seeing Caitie for a follow-up. The prevent the is well-known to me and the patient has advanced COPD/severe with bullous emphysema. The patient came in with acute COPD exacerbation went into respiratory failure requiring intubation mechanical ventilation. She got transferred from [facility] for questionable pneumothorax which ultimately turned out to be large bullae based on the CAT scan findings. As such no need for chest tube was seen. The patient continue the bronchodilators and steroids and antibiotics. During her prolonged treatment, the patient required tracheostomy tube insertion suspecting that her respiratory failure will be rather a long- term process. A PEG tube was also inserted. Currently the patient is a number AHI tracheostomy tube in place. Post trach estimated to be insertion the patient was gradually weaned off the sedation and paralytics and currently completely off. She is awake. She is profoundly weak hardly able to raise his arms against gravity and able to wiggle her toes yet she is unable to raise her feet or thighs or legs are gaze to gravity. She is responding to questions. She was able to recognize me. She is able to communicate. She is very much lethargic and weak still. She remains on a mechanical ventilator on assist control mode with a tidal volume of 400 with FiO2 of 30% and a PEEP of 5 and a rate of 16. The patient does not have any significant orotracheal secretions. The chest x-ray from today shows COPD and bullous changes in the upper lobes bilaterally and there is no evidence of any pneumothorax or his disease. White cell count is somewhat elevated and the patient has been on broad-spectrum steroids and antibiotics. She is tolerating enteral feeding through the PEG tube. She is currently in sinus rhythm and less tachycardic compared to past few days. She is receiving D5 half-normal saline today to 40 mL an hour. She is on DuoNeb nebulized treatments addition to a combination of Perforomist and Pulmicort neb last treatment twice a day, and she was on IV Solu-Medrol and I'm going to cut her down to 30 mg of prednisone as part of burst taper 9 that she has significant degree of myopathy or muscle weakness. No muscle weakness was probably due to a combination of systemic steroids on long-term paralytic use. On 07/31/2018 I'm seeing this patient for a follow-up H is much more awake compared to yesterday. Communicating. Profoundly weak and this is extensive myopathy related to critical illness. The patient was also seen by neurology. The patient was given IVIG for demyelinating polyneuropathy. In any rate, the patient is not having any major it for secretions. Chest x-ray findings are stable. No fever. No chills. Hemodynamically stable. Oral Cardizem was added and her heart rate and the blood pressures under better control. She is tolerating her tube feeds. She was taken off the IV Solu Medrol and she is currently on a prednisone burst taper. No nausea. No vomiting. No diarrhea. No abdominal pain. The PEG tube site is clean. Considering to transfer this patient to select specialty for further rehabilitation. Objective - Vital Signs Vital signs: Vital Signs Temp 98.7 F 07/31/18 12:00 Pulse 102 H 07/31/18 12:15 Resp 14 07/31/18 12:00 BP 117/62 07/31/18 12:00 Pulse Ox 93 L 07/31/18 12:00 Intake & Output 07/30/18 07/31/18 07/31/18 18:59 06:59 18:59 Intake Total 1388 5876.167 5020 Output Total 2180 1910 1825 Balance -792 -300.567 -820 Weight 55.7 kg 56.5 kg Intake: IV 948 652 530 0.9NS Pressure Bag 78 72 30 Azithromycin 500 mg In 250 Sodium Chloride 0.9% 250 ml @ 250 mls/hr IVPB DAILY MEENU Rx#:[id number] Dextrose 5%-0.45% NaCl 1, 520 480 200 000 ml @ 40 mls/hr IV . Q24H MEENU Rx#:[id number] Magnesium Sulfate-D5w Pmx 100 300 1 gm In Dextrose/Water 1 100ml.bag @ 100 mls/hr IVPB Q1H MEENU Rx#: [id number] cefTRIAXone 1,000 mg In 100 Sodium Chloride 0.9% 50 ml @ 100 mls/hr IVPB Q24HR MEENU Rx#:[id number] Intake, IV Titration 57.433 Amount Immune Globulin (Human- 57.433 IgG) 20 gm In Empty Bag 1 bag @ Titrate IV .Q0M ONE Rx#:[id number] Tube Feeding 380 660 385 Other 60 240 90 Output: Urine 2170 1910 1825 Stool 10 Other: Voiding Method Indwelling Catheter Indwelling Catheter Indwelling Catheter ABP, PAP, CO, CI - Last Documented Arterial Blood Pressure 117/59 - Exam The patient is awake and alert and not in acute distress. She is profoundly weak. She is able to communicate. She was able to recognize myself as I have been this patient's physician for many years. Head exam was generally normal. There was no scleral icterus or corneal arcus. Mucous membranes were moist. HEENT examination is grossly unremarkable. Mucous membranes are moist. No oral lesions. The patient is a tracheostomy tube in place and this is a #8 Shiley tracheostomy tube which is fenestrated uncuffed. Neck supple. Full range of motion. No adenopathy thyromegaly or neck vein distention. A midline tracheostomy is noted. Cardiovascular examination reveals regular rhythm rate. S1-S2 normal. No S3 or S4. Cardiac exam revealed the PMI to be normally situated and sized. The rhythm was regular and no extrasystoles were noted during several minutes of auscultation. The first and second heart sounds were normal and physiologic splitting of the second heart sound was noted. There were no murmurs, rubs, clicks, or gallops. Lungs reveal mostly clear breath sounds. Her sounds are equal bilaterally. There are a few scattered rhonchi. No wheezes or crackles. Abdomen soft bowel sounds are heard. No masses or tenderness. PEG tube is noted.Abdominal exam revealed normal bowel sounds. The abdomen was soft, non- tender, and without masses, organomegaly, or appreciable enlargement of the abdominal aorta. The ileostomy site is functional Extremities are intact. No cyanosis clubbing or edema. Skin is without rash or lesion. Neurologic examination shows that the patient is awake and communicating. No focal neurological deficits. Profound weakness and motor function is quite depressed as the patient has obvious signs of myopathy involving the upper and lower extremity. Motor function is 2 out of 5 in the upper and 1 out of 5 in lower without any Babinski or clonus. Refills are present in all 4 extremities. Pupils are equal and reactive to light. No facial asymmetry at this point in time. - Labs CBC & Chem 7: 07/31/18 04:10 07/31/18 04:10 Labs: Abnormal Lab Results - Last 24 Hours (Table) 07/30/18 07/30/18 07/30/18 Range/Units 15:42 20:03 23:30 WBC (3.8-10.6) k/uL RBC (3.80-5.40) m/uL Hgb (11.4-16.0) gm/dL Hct (34.0-46.0) % Neutrophils # (1.3-7.7) k/uL Potassium (3.5-5.1) mmol/L Chloride (98-107) mmol/L BUN (7-17) mg/dL Creatinine (0.52-1.04) mg/dL Glucose (74-99) mg/dL POC Glucose (mg/dL) 171 H 116 H 121 H (75-99) mg/dL Calcium (8.4-10.2) mg/dL Magnesium (1.6-2.3) mg/dL 07/31/18 07/31/18 07/31/18 Range/Units 04:10 04:10 05:06 WBC 17.5 H (3.8-10.6) k/uL RBC 3.33 L (3.80-5.40) m/uL Hgb 10.8 L (11.4-16.0) gm/dL Hct 33.0 L (34.0-46.0) % Neutrophils # 15.1 H (1.3-7.7) k/uL Potassium 3.1 L (3.5-5.1) mmol/L Chloride 108 H (98-107) mmol/L BUN 19 H (7-17) mg/dL Creatinine 0.36 L (0.52-1.04) mg/dL Glucose 104 H (74-99) mg/dL POC Glucose (mg/dL) 102 H (75-99) mg/dL Calcium 7.4 L (8.4-10.2) mg/dL Magnesium 1.4 L (1.6-2.3) mg/dL 07/31/18 07/31/18 Range/Units 08:13 11:51 WBC (3.8-10.6) k/uL RBC (3.80-5.40) m/uL Hgb (11.4-16.0) gm/dL Hct (34.0-46.0) % Neutrophils # (1.3-7.7) k/uL Potassium (3.5-5.1) mmol/L Chloride (98-107) mmol/L BUN (7-17) mg/dL Creatinine (0.52-1.04) mg/dL Glucose (74-99) mg/dL POC Glucose (mg/dL) 118 H 165 H (75-99) mg/dL Calcium (8.4-10.2) mg/dL Magnesium (1.6-2.3) mg/dL Assessment and Plan Plan: 1 acute on chronic hypoxic and hypercapnic the story failure secondary to COPD exacerbation. The patient currently is on 30% trach collar maintaining saturation she's been off the mechanical ventilator for approximately 48 hours. Chest x-ray findings are stable. 2 severe COPD with bullous disease and chronic hypoxic history failure, with an FEV1 of 36% of predicted 3 previous history of pneumothoraces 4 chronic disease with previous colectomy and diverticular colostomy 5 severe muscle weakness/myopathy due to a combination of systemic steroids and paralytic use for prolonged period of time. The patient has profound weakness lower extremities bilaterally and in the upper extremities also although of a less severity 6 hyperlipidemia 7 hypothyroidism 8 nephrolithiasis 9 peg tube insertion and the patient is currently receiving enteral feeding for nutritional support Plan Continue the current management of bronchodilators and steroids and the patient is currently on a prednisone burst taper. Physical therapy has been involved in the case. The patient will need aggressive PT. IVIG was also added by neurology and the response to IVIG is variable specially the patient has more myopathy then neuropathy and her reflexive other preserved. In any rate, we will going to monitor her muscle weakness and the response to IVIG with interest. Continue enteral feeding for nutritional support. Remove the Artline. Transfer this patient select specialty within next 24 hours for further rehabilitation and aggressive PT.
--- NOTE | 2018-07-31 13:27 | P.DS ---
Providers Date of admission: 07/24/18 12:28 Expected date of discharge: 07/31/18 Attending physician: Janina Arvizu Consults: 07/24/18 12:56 Consult Physician Routine Consulting Provider: Cornelius eMrchant Consult Reason/Comments: vent and icu Do you want consulting provider notified?: Yes Placement Type Exists?: Yes 07/24/18 12:57 Consult Physician Routine Consulting Provider: Ingris Lyons Consult Reason/Comments: boulla Do you want consulting provider notified?: Yes Placement Type Exists?: Yes 07/24/18 13:10 Consult Physician Routine Consulting Provider: Fernando Aguayo Consult Reason/Comments: general surgery Do you want consulting provider notified?: Yes 07/24/18 13:16 Consult Physician Routine Consulting Provider: Paris Meza Consult Reason/Comments: icu and vent management Do you want consulting provider notified?: Yes 07/29/18 09:43 Consult Physician Routine Consulting Provider: Mike Woods Consult Reason/Comments: critical illness myopathy Do you want consulting provider notified?: Yes Primary care physician: [facility] Course: this is a 58-year-old pleasant female patient of Dr. Heber James. 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 Mistry treated with the dorsa Brio and albuterol in the outpatient setting. Also required home O2, she was transferred from [facility], admitted there 07/18/2018 secondary to COPD exacerbation. Patient required mechanical ventilation on admission, requiring Nimbex and propofol , was having difficulty in weaning off parameters, and currently is on Versed, which she has tolerated better. She also requires gentle diuresis, with IV Lasix, currently on a negative fluid balance. She is on empiric antibiotics in the form of Rocephin and Zithromax. They're planning on PEG and trach placement, however with the large bullae that was noted on routine x-rays yesterday, showing at least 25% of her left side, concern for pneumothorax, [facility] to ICU transfer, uninterrupted mechanical ventilation during her transfers.patient is on levo fedSolu-Medrol 60 Lasix 20 mg every 8 hours. Patient has been off her Humira prior to admission. 07/25: Patient remains intubated and on mechanical ventilation with tidal volume 400, FiO2 40 and PEEP of 5. Patient is managed by Dr. Meza. Norepinephrine is currently on hold as well as sedation and Versed dose is being decreased. Potassium and magnesium have been replaced. Patient is on tube feedings tolerating at 35 mL per hour. Patient has been seen by cardiothoracic surgery with no plan for any surgical intervention regarding the bolus emphysema at this time. Repeat chest x-ray is stable, patchy left upper lobe density persist. Pleural effusion unchanged. Dr. Aguayo is on consult with plan for tracheostomy and PEG tube placement for tomorrow. Family updated at the bedside. 07/26: Patient remains in the intensive care unit intubated and on mechanical ventilation. Patient required levo fed last evening which has not been discontinued. She did have a period of low urine output during the night but this is improved. White count is down to 13.9. Potassium, magnesium and calcium are being replaced. Patient is scheduled for PEG tube and trach today with Dr. Aguayo. Family updated at the bedside. 07/27: Patient is status post trach and PEG tube. Tube feeding started this morning. She is off MRSA and propofol for spontaneous breathing trial today. Urine output has been running 50-80 mL per hour. The patient required small amount of Versed after being given Dilaudid 2 mg. Pain medication changed to Dilaudid 0.5 mg every 3 hours as needed and Paonia elixir 15 ML's every 6 hours as needed 07/28: Patient is status post trach and PEG tube. Patient was on a sedation holiday yesterday experience agitation during that time. Patient continues to have sedation at this time. Unable to follow commands with right hand and bilateral lower extremities, has minimal movement of hand. Able to follow commands with left hand and arm. Urine output continues to be running 50/80 ML per hour. Sedation holiday to continue today. Patient continues to have Dilaudid for pain management. Will continue to slowly advance tube feeds and may remove tracheostomy ties today. 07/29: The patient had a tracheostomy and PEG tube placed on 07/26/2018. The patient's FEV1 is 36% of predicted. Patient is currently on ativan 0.5mg q 6 hours and CPAP trial. Arterial blood gases show a PaO2 of 78 a PaCO2 of 39 and a pH 7.47. This is consistent with a mild metabolic alkalosis. Microbiologic studies are pending or negative. White count is 21.9, hemoglobin 11.4, hematocrit 35.5 and platelet count is normal. Electrolytes are normal. BUS 25 and creatinine is 0.47. Urine output continues to be running 50/80 ML per hour. Patient is able to nod appropriately to questions. Patient is unable to follow commands to extremities. Limited monitor shows sinus tachycardia in the 110's. 07/30: Patient remains in the intensive care unit. She is on a trach collar and tolerating tube feedings. Neurology consult is pending. She is currently on Solu-Medrol 40 mg every 6 hours and changed to oral prednisone for tomorrow. She is complaining of stomach pain. Patient is able to communicate. Opium dose verified and to be started. Discussed with rn case manager regarding Celexa especially Hospital transfer of this week. 07/31: Patient has been seen by neurology and started on IVIG. Patient's pain is not controlled and Dilaudid 2 mg will be discontinued and placed on 1 mg and Pa[place] increased to every 4 hours. Patient has been [facility] from pulmonary medicine. Social work is making arrangements and possible transfer today pending insurance authorization. Discharge diagnoses: 1. Severe COPD exacerbation with acute on chronic hypercapnic and hypoxemic respiratory failure requiring intubation and mechanical ventilation, managed by Dr. Meza. COPD exacerbation with CT evidence of bullous emphysema left side. Consult with cardiothoracic surgery appreciated. Continue IV steroids, mechanical ventilation, levo off, nebulized albuterol Atrovent. PEG tube and trach with Dr. Aguyao. 2. Sepsis with septic shock most likely secondary to pneumonia, currently off Levophed, continue on Rocephin and Zithromax. Pain medications adjusted 3. Chronic diastolic heart failure. IV Lasix is discontinued, monitor urine output, I's and O's. 4. Sinus tachycardia. Patient was on metoprolol 25 mg [address] [facility], currently on hold due to hypotension. 5. History of Crohn's, has ileostomy on the right side, patient currently off Humira can use Lomotil when necessary 6. Generalized anxiety disorder, currently sedated, was on BuSpar prior to admission 7. Fibromyalgia with neuropathy, was on [place] 8. Severe protein calorie malnutrition requiring tube feedings with albumin of 2.8. PEG tube feedings started. 9. Altered mental status changes, metabolic encephalopathy, secondary to sepsis or sedation, but improved from the weekend. Will hold off further testing until reassessment tomorrow with continued decrease of sedation medications. Neurology on consult. 10. Critical illness myopathy, will obtain a CK-MB, consult neurology. IVIG infusions. DVT prophylaxis Heparin GI prophylaxis Protonix [facility] Impression and plan of care have been directed as dictated by the signing physician. Gaby Rothman nurse practitioner acting as scribe for signing physician. Plan - Discharge Summary New Discharge Prescriptions: No Action Adalimumab [Humira Pen] 40 mg SQ TU Aclidinium [place] [Tudorza Pressair] 400 mcg INHALATION RT-BID Fluticasone/Vilanterol [Breo Ellipta 100-25 Mcg Inhaler] 1 puff INHALATION RT -DAILY Opium Tincture 0.8 mg PO QID Mercaptopurine [Purinethol] 50 mg PO BID busPIRone HCl [Buspar] 10 mg PO BID Atenolol 25 mg PO DAILY Latanoprost Ophth [Xalatan 0.005%] 1 drop BOTH EYES HS HYDROcodone/APAP 10-325MG [Pa[place] 10-325] 1 tab PO Q6HR PRN PRN Reason: Abdominal Pain Gabapentin [Neurontin] 300 mg PO TID Nystatin 100,000 Unit/ml Susp [Mycostatin Oral Susp] 500,000 unit PO QID PRN PRN Reason: THRUSH Ondansetron [Zofran] 4 mg PO Q6HR Nystatin 100,000 Unit/gm Powd [Mycostatin Powder] 1 applic TOPICAL BID Melatonin 5 mg PO HS PRN PRN Reason: SLEEP Meclizine [Antivert] 25 mg PO TID Magnesium Oxide [Mag-Ox] 250 mg PO DAILY Dicyclomine [Bentyl] 10 mg PO TID Denosumab [Prolia] 60 mg SQ Q180D Cyanocobalamin [Vitamin B-12 Injection] 1,000 mcg SQ QMONTH Clotrimazole/Betamethasone Dip [Lotrisone Cream] 1 applic TOPICAL DAILY Cholecalciferol (Vitamin D3) [Vitamin D3] 2,000 unit PO DAILY Albuterol Inhaler [Ventolin Hfa Inhaler] 1 puff INHALATION RT-DAILY Discharge Medication List Aclidinium [place] [Tudorza Pressair] 400 mcg INHALATION RT-BID 06/21/14 [ History] Adalimumab [Humira Pen] 40 mg SQ TU 06/21/14 [History] Fluticasone/Vilanterol [Breo Ellipta 100-25 Mcg Inhaler] 1 puff INHALATION RT- DAILY 04/27/16 [History] Opium Tincture 0.8 mg PO QID 04/27/16 [History] Mercaptopurine [Purinethol] 50 mg PO BID 02/22/17 [History] busPIRone HCl [Buspar] 10 mg PO BID 05/09/17 [History] Atenolol 25 mg PO DAILY 05/20/17 [History] Latanoprost Ophth [Xalatan 0.005%] 1 drop BOTH EYES HS 05/21/17 [History] HYDROcodone/APAP 10-325MG [[place] 10-325] 1 tab PO Q6HR PRN 06/24/17 [History] Gabapentin [Neurontin] 300 mg PO TID 12/08/17 [History] Nystatin 100,000 Unit/ml Susp [Mycostatin Oral Susp] 500,000 unit PO QID PRN [History] Albuterol Inhaler [Ventolin Hfa Inhaler] 1 puff INHALATION RT-DAILY 07/24/18 [ History] Cholecalciferol (Vitamin D3) [Vitamin D3] 2,000 unit PO DAILY 07/24/18 [History] Clotrimazole/Betamethasone Dip [Lotrisone Cream] 1 applic TOPICAL DAILY [History] Cyanocobalamin [Vitamin B-12 Injection] 1,000 mcg SQ QMONTH 07/24/18 [History] Denosumab [Prolia] 60 mg SQ Q180D 07/24/18 [History] Dicyclomine [Bentyl] 10 mg PO TID 07/24/18 [History] Magnesium Oxide [Mag-Ox] 250 mg PO DAILY 07/24/18 [History] Meclizine [Antivert] 25 mg PO TID 07/24/18 [History] Melatonin 5 mg PO HS PRN 07/24/18 [History] Nystatin 100,000 Unit/gm Powd [Mycostatin Powder] 1 applic TOPICAL BID 07/24/18 [History] Ondansetron [Zofran] 4 mg PO Q6HR 07/24/18 [History]
--- NOTE | 2018-07-31 13:30 | P.PN ---
<Gaby Rothman A - Last Filed: 07/31/18 13:29> Subjective Progress Note Date: 07/31/18 this is a 58-year-old pleasant female patient of Dr. Heber James. 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 Mistry treated with the dorsa Brio and albuterol in the outpatient setting. Also required home O2, she was transferred from [facility], admitted there 07/18/2018 secondary to COPD exacerbation. Patient required mechanical ventilation on admission, requiring Nimbex and propofol , was having difficulty in weaning off parameters, and currently is on Versed, which she has tolerated better. She also requires gentle diuresis, with IV Lasix, currently on a negative fluid balance. She is on empiric antibiotics in the form of Rocephin and Zithromax. They're planning on PEG and trach placement, however with the large bullae that was noted on routine x-rays yesterday, showing at least 25% of her left side, concern for pneumothorax, they [facility] to ICU transfer, uninterrupted mechanical ventilation during her transfers.patient is on levo fedSolu-Medrol 60 Lasix 20 mg every 8 hours. Patient has been off her Humira prior to admission. 07/25: Patient remains intubated and on mechanical ventilation with tidal volume 400, FiO2 40 and PEEP of 5. Patient is managed by Dr. Meza. Norepinephrine is currently on hold as well as sedation and Versed dose is being decreased. Potassium and magnesium have been replaced. Patient is on tube feedings tolerating at 35 mL per hour. Patient has been seen by cardiothoracic surgery with no plan for any surgical intervention regarding the bolus emphysema at this time. Repeat chest x-ray is stable, patchy left upper lobe density persist. Pleural effusion unchanged. Dr. Aguayo is on consult with plan for tracheostomy and PEG tube placement for tomorrow. Family updated at the bedside. 07/26: Patient remains in the intensive care unit intubated and on mechanical ventilation. Patient required levo fed last evening which has not been discontinued. She did have a period of low urine output during the night but this is improved. White count is down to 13.9. Potassium, magnesium and calcium are being replaced. Patient is scheduled for PEG tube and trach today with Dr. Aguayo. Family updated at the bedside. 07/27: Patient is status post trach and PEG tube. Tube feeding started this morning. She is off MRSA and propofol for spontaneous breathing trial today. Urine output has been running 50-80 mL per hour. The patient required small amount of Versed after being given Dilaudid 2 mg. Pain medication changed to Dilaudid 0.5 mg every 3 hours as needed and Augusta elixir 15 ML's every 6 hours as needed 07/28: Patient is status post trach and PEG tube. Patient was on a sedation holiday yesterday experience agitation during that time. Patient continues to have sedation at this time. Unable to follow commands with right hand and bilateral lower extremities, has minimal movement of hand. Able to follow commands with left hand and arm. Urine output continues to be running 50/80 ML per hour. Sedation holiday to continue today. Patient continues to have Dilaudid for pain management. Will continue to slowly advance tube feeds and may remove tracheostomy ties today. 07/29: The patient had a tracheostomy and PEG tube placed on 07/26/2018. The patient's FEV1 is 36% of predicted. Patient is currently on ativan 0.5mg q 6 hours and CPAP trial. Arterial blood gases show a PaO2 of 78 a PaCO2 of 39 and a pH 7.47. This is consistent with a mild metabolic alkalosis. Microbiologic studies are pending or negative. White count is 21.9, hemoglobin 11.4, hematocrit 35.5 and platelet count is normal. Electrolytes are normal. BUS 25 and creatinine is 0.47. Urine output continues to be running 50/80 ML per hour. Patient is able to nod appropriately to questions. Patient is unable to follow commands to extremities. Limited monitor shows sinus tachycardia in the 110's. 07/30: Patient remains in the intensive care unit. She is on a trach collar and tolerating tube feedings. Neurology consult is pending. She is currently on Solu-Medrol 40 mg every 6 hours and changed to oral prednisone for tomorrow. She is complaining of stomach pain. Patient is able to communicate. Opium dose verified and to be started. Discussed with medical case manager regarding Celexa especially Hospital transfer of this week. 07/31: Patient has been seen by neurology and started on IVIG. Patient's pain is not controlled and Dilaudid 2 mg will be discontinued and placed on 1 mg and Augusta increased to every 4 hours. [facility]. Social work is making arrangements and possible transfer today pending insurance authorization. Objective - Vital Signs Vital signs: Vital Signs Temp 98.6 F 07/31/18 09:00 Pulse 105 H 07/31/18 09:11 Resp 15 07/31/18 09:00 BP 117/75 07/31/18 08:00 Pulse Ox 97 07/31/18 09:00 Intake & Output 07/30/18 07/31/18 07/31/18 18:59 06:59 18:59 Intake Total 1388 1609.433 487 Output Total 2180 1910 475 Balance -792 -300.567 12 Weight 55.7 kg 56.5 kg Intake: IV 948 652 292 0.9NS Pressure Bag 78 72 12 Azithromycin 500 mg In 250 Sodium Chloride 0.9% 250 ml @ 250 mls/hr IVPB DAILY [facility] Rx#:[id number] Dextrose 5%-0.45% NaCl 1, 520 480 80 000 ml @ 40 mls/hr IV . Q24H [facility] Rx#:[id number] Magnesium Sulfate-D5w Pmx 100 200 1 gm In Dextrose/Water 1 100ml.bag @ 100 mls/hr IVPB Q1H [facility] Rx#: [id number] cefTRIAXone 1,000 mg In 100 Sodium Chloride 0.9% 50 ml @ 100 mls/hr IVPB Q24HR [facility] Rx#:[id number] Intake, IV Titration 57.433 Amount Immune Globulin (Human- 57.433 IgG) 20 gm In Empty Bag 1 bag @ Titrate IV .Q0M ONE Rx#:[id number] Tube Feeding 380 660 165 Other 60 240 30 Output: Urine 2170 1910 475 Stool 10 Other: Voiding Method Indwelling Catheter Indwelling Catheter ABP, PAP, CO, CI - Last Documented Arterial Blood Pressure 114/55 - Exam General appearance: Present: average body habitus, no acute distress - EENT Eyes: Present: anicteric sclerae, EOMI, PERRLA ENT: Present: NA/AT - Neck Neck: Present: normal ROM. Absent: lymphadenopathy, rigidity, stridor - Respiratory Respiratory: bilateral: diminished, rales, rhonchi, wheezing - Cardiovascular Heart rate: 112 Rhythm: regular Heart sounds: normal: S1, S2 Abnormal Heart Sounds: Absent: systolic murmur, diastolic murmur, rub, S3 Gallop , S4 Gallop, click - Gastrointestinal General gastrointestinal: Present: normal bowel sounds, soft. Absent: tenderness - Integumentary Integumentary: Present: decreased turgor. Absent: rash - Musculoskeletal Musculoskeletal Comment(s): Patient able to nod appropriately to questions asked. Patient attempts to follow extremity commands with generalized weakness to upper and lower extremities. - Labs CBC & Chem 7: 07/31/18 04:10 07/31/18 04:10 Labs: Abnormal Lab Results - Last 24 Hours (Table) 07/30/18 07/30/18 07/30/18 Range/Units 11:18 15:42 20:03 WBC (3.8-10.6) k/uL RBC (3.80-5.40) m/uL Hgb (11.4-16.0) gm/dL Hct (34.0-46.0) % Neutrophils # (1.3-7.7) k/uL Potassium (3.5-5.1) mmol/L Chloride (98-107) mmol/L BUN (7-17) mg/dL Creatinine (0.52-1.04) mg/dL Glucose (74-99) mg/dL POC Glucose (mg/dL) 151 H 171 H 116 H (75-99) mg/dL Calcium (8.4-10.2) mg/dL Magnesium (1.6-2.3) mg/dL 07/30/18 07/31/18 07/31/18 Range/Units 23:30 04:10 04:10 WBC 17.5 H (3.8-10.6) k/uL RBC 3.33 L (3.80-5.40) m/uL Hgb 10.8 L (11.4-16.0) gm/dL Hct 33.0 L (34.0-46.0) % Neutrophils # 15.1 H (1.3-7.7) k/uL Potassium 3.1 L (3.5-5.1) mmol/L Chloride 108 H (98-107) mmol/L BUN 19 H (7-17) mg/dL Creatinine 0.36 L (0.52-1.04) mg/dL Glucose 104 H (74-99) mg/dL POC Glucose (mg/dL) 121 H (75-99) mg/dL Calcium 7.4 L (8.4-10.2) mg/dL Magnesium 1.4 L (1.6-2.3) mg/dL 07/31/18 07/31/18 Range/Units 05:06 08:13 WBC (3.8-10.6) k/uL RBC (3.80-5.40) m/uL Hgb (11.4-16.0) gm/dL Hct (34.0-46.0) % Neutrophils # (1.3-7.7) k/uL Potassium (3.5-5.1) mmol/L Chloride (98-107) mmol/L BUN (7-17) mg/dL Creatinine (0.52-1.04) mg/dL Glucose (74-99) mg/dL POC Glucose (mg/dL) 102 H 118 H (75-99) mg/dL Calcium (8.4-10.2) mg/dL Magnesium (1.6-2.3) mg/dL Assessment and Plan Plan: 1. Severe COPD exacerbation with acute on chronic hypercapnic and hypoxemic respiratory failure requiring intubation and mechanical ventilation, managed by Dr. Meza. COPD exacerbation with CT evidence of bullous emphysema left side. Consult with cardiothoracic surgery appreciated. Continue IV steroids, mechanical ventilation, levo off, nebulized albuterol Atrovent. PEG tube and trach with Dr. Aguayo. 2. Sepsis with septic shock most likely secondary to pneumonia, currently off Levophed, continue on Rocephin and Zithromax. Pain medications adjusted 3. Chronic diastolic heart failure. IV Lasix is discontinued, monitor urine output, I's and O's. 4. Sinus tachycardia. Patient was on metoprolol 25 mg 3 times daily at [facility], currently on hold due to hypotension. 5. History of Crohn's, has ileostomy on the right side, patient currently off Humira can use Lomotil when necessary 6. Generalized anxiety disorder, currently sedated, was on BuSpar prior to admission 7. Fibromyalgia with neuropathy, was on Augusta 8. Severe protein calorie malnutrition requiring tube feedings with albumin of 2.8. PEG tube feedings started. 9. Altered mental status changes, metabolic encephalopathy, secondary to sepsis or sedation, but improved from the weekend. Will hold off further testing until reassessment tomorrow with continued decrease of sedation medications. Neurology on consult. 10. Critical illness myopathy, will obtain a CK-MB, consult neurology. IVIG infusions. DVT prophylaxis Heparin GI prophylaxis Protonix Discharge [facility]: [facility] Impression and plan of care have been directed as dictated by the signing physician. Gaby Rothman nurse practitioner acting as scribe for signing physician. <Amadeo Sanchez - Last Filed: 07/31/18 16:42> Subjective Gastroenterology consulted for increased abdominal pain and history of Crohn's disease with colostomy. Patient is on tincture of opium 4 times a day per Dr. Ram but since pain is not controlled despite being on medications GI will evaluate the patient Objective - Vital Signs Vital signs: Vital Signs Temp 98.7 F 07/31/18 12:00 Pulse 92 07/31/18 16:26 Resp 19 07/31/18 13:00 BP 117/62 07/31/18 12:00 Pulse Ox 95 07/31/18 13:00 Intake & Output 07/30/18 07/31/18 07/31/18 18:59 06:59 18:59 Intake Total 1388 9010.755 3361 Output Total 2180 1910 1975 Balance -792 -300.567 -729 Weight 55.7 kg 56.5 kg Intake: IV 948 652 576 0.9NS Pressure Bag 78 72 36 Azithromycin 500 mg In 250 Sodium Chloride 0.9% 250 ml @ 250 mls/hr IVPB DAILY [facility] Rx#:[id number] Dextrose 5%-0.45% NaCl 1, 520 480 240 000 ml @ 40 mls/hr IV . Q24H [facility] Rx#:[id number] Magnesium Sulfate-D5w Pmx 100 300 1 gm In Dextrose/Water 1 100ml.bag @ 100 mls/hr IVPB Q1H [facility] Rx#: [id number] cefTRIAXone 1,000 mg In 100 Sodium Chloride 0.9% 50 ml @ 100 mls/hr IVPB Q24HR ON LICENSE OF [facility] Rx#:[id number] Intake, IV Titration 57.433 Amount Immune Globulin (Human- 57.433 IgG) 20 gm In Empty Bag 1 bag @ Titrate IV .Q0M ONE Rx#:[id number] Tube Feeding 380 660 550 Other 60 240 120 Output: Urine 2170 1910 1975 Stool 10 Other: Voiding Method Indwelling Catheter Indwelling Catheter Indwelling Catheter # Bowel Movements 100 ABP, PAP, CO, CI - Last Documented Arterial Blood Pressure 123/65 - Labs CBC & Chem 7: 07/31/18 04:10 07/31/18 13:10 Labs: Abnormal Lab Results - Last 24 Hours (Table) 07/30/18 07/30/18 07/31/18 Range/Units 20:03 23:30 04:10 WBC 17.5 H (3.8-10.6) k/uL RBC 3.33 L (3.80-5.40) m/uL Hgb 10.8 L (11.4-16.0) gm/dL Hct 33.0 L (34.0-46.0) % Neutrophils # 15.1 H (1.3-7.7) k/uL Potassium (3.5-5.1) mmol/L Chloride (98-107) mmol/L BUN (7-17) mg/dL Creatinine (0.52-1.04) mg/dL Glucose (74-99) mg/dL POC Glucose (mg/dL) 116 H 121 H (75-99) mg/dL Calcium (8.4-10.2) mg/dL Magnesium (1.6-2.3) mg/dL 07/31/18 07/31/18 07/31/18 Range/Units 04:10 05:06 08:13 WBC (3.8-10.6) k/uL RBC (3.80-5.40) m/uL Hgb (11.4-16.0) gm/dL Hct (34.0-46.0) % Neutrophils # (1.3-7.7) k/uL Potassium 3.1 L (3.5-5.1) mmol/L Chloride 108 H (98-107) mmol/L BUN 19 H (7-17) mg/dL Creatinine 0.36 L (0.52-1.04) mg/dL Glucose 104 H (74-99) mg/dL POC Glucose (mg/dL) 102 H 118 H (75-99) mg/dL Calcium 7.4 L (8.4-10.2) mg/dL Magnesium 1.4 L (1.6-2.3) mg/dL 07/31/18 07/31/18 Range/Units 11:51 16:33 WBC (3.8-10.6) k/uL RBC (3.80-5.40) m/uL Hgb (11.4-16.0) gm/dL Hct (34.0-46.0) % Neutrophils # (1.3-7.7) k/uL Potassium (3.5-5.1) mmol/L Chloride (98-107) mmol/L BUN (7-17) mg/dL Creatinine (0.52-1.04) mg/dL Glucose (74-99) mg/dL POC Glucose (mg/dL) 165 H 173 H (75-99) mg/dL Calcium (8.4-10.2) mg/dL Magnesium (1.6-2.3) mg/dL
[2018-07-31 16:34] LABS: Glucose,Whole Blood 173 mg/dL (75-99)
[2018-07-31] MEDS: DEXTROSE 5%-0.45% NACL 1,000 ML IV SCH (16:56)
[2018-07-31] MEDS ORDERED: IMMUNE GLOBULIN (GAMMAGARD) 20 GM in EMPTY BAG 1 BAG IV ONE (18:00)
[2018-07-31 19:53] LABS: Glucose,Whole Blood 91 mg/dL (75-99)
[2018-07-31 23:24] LABS: Glucose,Whole Blood 89 mg/dL (75-99)
[2018-08-01] MEDS: INSULIN ASPART 100 UNIT/ML 1 ML 10 ML VIAL SQ SCH ×6 (00:15→20:46)
[2018-08-01] MEDS: IPRATROPIUM-ALBUTEROL 3 ML NEB INHALATION SCH ×5 (00:28→21:55)
[2018-08-01 03:59] LABS: Glucose,Whole Blood 90 mg/dL (75-99)
[2018-08-01 04:58] LABS: Anion Gap 3 mmol/L; Blood Urea Nitrogen 21 mg/dL (7-17); Calcium 8.9 mg/dL (8.4-10.2); Carbon Dioxide 35 mmol/L (22-30); Chloride 99 mmol/L (98-107); Glucose 94 mg/dL (74-99); Magnesium 1.7 mg/dL (1.6-2.3); Phosphorus 3.6 mg/dL (2.5-4.5); Potassium 3.9 mmol/L (3.5-5.1); Sodium 137 mmol/L (137-145)
[2018-08-01 05:03] LABS: HCT 34.9 % (34.0-46.0); MCH 32.2 pg (25.0-35.0); MCHC 31.6 g/dL (31.0-37.0); MCV 102.1 fL (80.0-100.0); Macrocytosis Slight; Mean Platelet Volume 7.2; Platelet Count 157 k/uL (150-450); RBC 3.41 m/uL (3.80-5.40); RDW 15.1 % (11.5-15.5); WBC 12.3 k/uL (3.8-10.6)
[2018-08-01] MEDS: LORazepam 2 MG/ML INJ IV SCH ×3 (05:25→19:43)
[2018-08-01] MEDS: MAGNESIUM SULFATE-D5W PMX 1 GM in DEXTROSE/WATER 1 100ML.BAG IVPB SCH ×4 (05:25→18:07)
[2018-08-01] MEDS ORDERED: POTASSIUM BICARBONATE/CIT AC 20 MEQ TABLET.EFF NG-TUBE SCH (06:00)
--- NOTE | 2018-08-01 06:43 | P.PN ---
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 Patient is in day 2 of IVIG infusion therapy for treatment. Patient is responding to treatment. Patient communicates with some verbal communication but she does have trach placed. Patient will communicate verbally as well as blinking eyes and using pen and paper. She was able to communicate that the weakness in her arms and legs has slightly declined as well as the numbness and tingling in her upper and lower extremities. Does not appear that she has any adverse effects from the infusion. Given the patient's success so far with infusion therapy, there will need to be consideration for IV infusion therapy continued in the rehabilitation/outpatient setting. Facility for placement should be able to manage IVIG infusion as part of routine patient care for this patient. Patient will also need a [facility] facility as well. IVIG is known to take several weeks for optimal effect. Patient may also need repeat regimen of IV infusion IVIG in the future for optimal effect. On contact, patient was alert and oriented 3, resting in bed in no acute distress. Objective - Vital Signs Vital signs: Vital Signs Temp 98.6 F 08/01/18 04:00 Pulse 99 08/01/18 05:00 Resp 14 08/01/18 05:00 BP 137/74 08/01/18 05:00 Pulse Ox 97 08/01/18 05:00 Intake & Output 07/31/18 07/31/18 08/01/18 06:59 18:59 06:59 Intake Total 4010.828 0383.2 1413.133 Output Total 1910 3075 1975 Balance -300.567 -1127.8 -561.867 Weight 56.5 kg 53.6 kg Intake: IV 652 806 476 0.9NS Pressure Bag 72 66 36 Dextrose 5%-0.45% NaCl 1, 480 440 440 000 ml @ 40 mls/hr IV . Q24H [facility] Rx#:[id number] Magnesium Sulfate-D5w Pmx 100 300 1 gm In Dextrose/Water 1 100ml.bag @ 100 mls/hr IVPB Q1H [facility] Rx#: [id number] Intake, IV Titration 57.433 11.2 22.133 Amount Immune Globulin (Human- 57.433 IgG) 20 gm In Empty Bag 1 bag @ Titrate IV .Q0M ONE Rx#:[id number] Immune Globulin (Human- 11.2 22.133 IgG) 20 gm In Empty Bag 1 bag @ Titrate IV .Q0M ONE Rx#:[id number] Tube Feeding 660 880 825 Other 240 250 90 Output: Urine 1910 3075 1975 Other: Voiding Method Indwelling Catheter Indwelling Catheter Indwelling Catheter # Bowel Movements 100 ABP, PAP, CO, CI - Last Documented Arterial Blood Pressure 121/57 - Exam General appearance: Alert, awake and interactive, no apparent distress. Head: Atraumatic, normocephalic, normal inspection Eyes: equal, round and reactive to light Ear, nose and throat: tracheostomy tube in place Neck: as noted above and ears nose and throat Respiratory: tracheostomy tube placed Cardiovascular: telemetry monitoring GI/abdominal: No guarding Extremities: extremely weak in all extremities Neurological: cranial nerves II through XII intact no lateralizing weakness, Profoundly weak in all 4 extremities no seizure activity noted on physical exam no facial asymmetry seen on physical exam no pronator drift and no nystagmus. Left lower extremity: 1/5 Right lower extremity: 1/5 Left upper extremity: 2-/5 Right upper extremity:2-/5 Sensation: present and equal in all 4 extremities Psychological: Mood and Affect appropriate for setting - Labs CBC & Chem 7: 08/01/18 04:25 08/01/18 04:25 Labs: Abnormal Lab Results - Last 24 Hours (Table) 07/31/18 07/31/18 07/31/18 Range/Units 08:13 11:51 16:33 WBC (3.8-10.6) k/uL RBC (3.80-5.40) m/uL Hgb (11.4-16.0) gm/dL MCV (80.0-100.0) fL Carbon Dioxide (22-30) mmol/L BUN (7-17) mg/dL Creatinine (0.52-1.04) mg/dL POC Glucose (mg/dL) 118 H 165 H 173 H (75-99) mg/dL 08/01/18 08/01/18 Range/Units 04:25 04:25 WBC 12.3 H (3.8-10.6) k/uL RBC 3.41 L (3.80-5.40) m/uL Hgb 11.0 L (11.4-16.0) gm/dL MCV 102.1 H (80.0-100.0) fL Carbon Dioxide 35 H (22-30) mmol/L BUN 21 H (7-17) mg/dL Creatinine 0.40 L (0.52-1.04) mg/dL POC Glucose (mg/dL) (75-99) mg/dL Assessment and Plan (1) Peripheral demyelinating neuropathy Current Visit: Yes Status: Acute Code(s): G62.89 - OTHER SPECIFIED POLYNEUROPATHIES SNOMED Code(s): 82354352 (2) Muscle weakness of lower extremity Current Visit: Yes Status: Acute Code(s): M62.81 - MUSCLE WEAKNESS ( GENERALIZED) SNOMED Code(s): 294491025 (3) Muscle weakness of upper extremity Current Visit: Yes Status: Acute Code(s): M62.81 - MUSCLE WEAKNESS ( GENERALIZED) SNOMED Code(s): 831087914 Plan: On physical exam findings are consistent with the patient's previous medical history, long-term medication use related to patient as needed treatment, patient does have with reasonable medical certainty demyelinating peripheral polyneuropathy in the upper and lower extremities bilaterally. Continue as ordered: BUN and creatinine levels dailyif patient's BUN and creatinine is not within normal range, IVIG infusion will not be started or maintained until BUN and creatinine are within normal range. Continue as prescribed: 0.4 g/kg IVIG infusion per day up to a total of 5 days therapy status: Neurology will clear the patient for discharge to a facility that is typical of handling a patient with a tracheostomy as well as able to administer IVIG infusion. NOTE: Patient may need repeat IVIG infusion regimen and within the next 4-6 weeks post completion of this regimen if symptoms persist. Same protocol to be administered if needed in the future. I have discussed the plan of care with the physician prior to implementation and he agrees with the plan as implemented.
[2018-08-01 07:17] LABS: Band Neutrophils % 6 %; Lymphocytes # (M) 1.85 k/uL (1.0-4.8); Metamyelocytes # (M) 0.37 k/uL (0); Metamyelocytes % 3 %; Monocytes # (M) 0.74 k/uL (0-1.0); Myelocytes # (M) 0.25 k/uL (0); Myelocytes % 2 %; Neutrophils % (M) 70 %; Nucleated Red Blood Cells 0 /100 WBC (0-0); Total Cells Counted 200
[2018-08-01 07:18] LABS: Anisocytosis (M) Present
[2018-08-01] MEDS: BUDESONIDE 1 MG/2 ML NEBU INHALATION SCH ×2 (07:18→21:55)
[2018-08-01] MEDS: FORMOTEROL FUMARATE 20 MCG/2 ML NEBU INHALATION SCH ×2 (07:18→21:55)
[2018-08-01 07:19] LABS: Large Platelets Present
[2018-08-01 07:22] LABS: Polychromasia Present
--- NOTE | 2018-08-01 07:29 | XR ---
EXAMINATION TYPE: XR chest 1V portable DATE OF EXAM: 08/01/2018 Comparison: 07/31/2018 Clinical History: 58 year-old female shortness of breath Findings: Tracheostomy cannula is in place. Left IJ CVC tip at the lower SVC. Heart normal size. Aorta within n ormal limits. Stable focal abnormal left greater than right upper lobe opacities. Chronic healed righ t-sided rib fracture deformities. No consolidation or pleural effusion. Mild strandy atelectasis in t he lower lungs. Impression: Bullous emphysema and stable focal abnormal left greater than right upper lung opacities which could represent scarring. Follow-up can be considered to ensure stability compared to the outside CT of 07/01. No acute change.
[2018-08-01 07:34] LABS: Glucose,Whole Blood 134 mg/dL (75-99)
[2018-08-01 09:11] LABS: Glucose,Whole Blood 98 mg/dL (75-99)
[2018-08-01] MEDS: HEPARIN SODIUM,PORCINE 5,000 UNIT/ML 1 ML VIAL SQ SCH ×2 (09:11→20:46)
[2018-08-01] MEDS: PANTOPRAZOLE 40 MG/10 ML VIAL IVP SCH (09:11)
[2018-08-01] MEDS: predniSONE 10 MG TAB PO SCH (09:12)
[2018-08-01] MEDS: DILTIAZEM ORAL 60 MG TAB PO SCH ×2 (09:12→16:48)
--- NOTE | 2018-08-01 10:09 | P.PN ---
Subjective Progress Note Date: 08/01/18 Principal diagnosis: Acute hypercapnic and hypoxic rest or a failure, secondary to COPD This is a 58-year-old white female patient who was transferred from [facility] on 07/24/2018 where she presented with acute on chronic hypercapnic and hypoxic restaurant failure secondary to acute exacerbation of chronic obstructive pulmonary disease she required intubation and ventilation. She has a history of severe end-stage chronic obstructive pulmonary disease with a baseline FEV1 of 36% of predicted. She follows with Dr. Mistry in the pulmonary office, and her maintenance inhalers include 2 doors a, breathing a lot, and albuterol in the outpatient setting. She is on home oxygen. 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 She is prednisone dependent, and has had multiple episodes of COPD exacerbation. Chest x-ray was completed at the the [facility] and there appeared to be a left-sided loculated pneumothorax, computed tomography scan was ordered, and revealed evidence of bullous emphysema. Patient was transferred to [facility] with a consultation to cardiothoracic surgery. This morning she remains intubated, on mechanical ventilation, her current vent settings are assist-control mode the rate of 16, Tylenol 400, FiO2 45% and PEEP of 5. Maintenance IV fluids include D5 half- normal saline at a rate of 40 ML per hour, Versed is 55 mg per hour, Diprivan is 40 mics per kilo, per minute, levofed is at 2 mics per minute. This morning his blood gases show pO2 of 82, pCO2 47, and pH of 7.54. Patient has been diuresed, she was on Lasix 20 mg 3 times daily, and this morning's labs show a component of prerenal azotemia, with a BUN of 33, creatinine 0.56. We will discontinue the Lasix for now. The VBC 16.4, hemoglobin is 12.2, platelet count is 173, INR is 1.1. Sodium is 140, potassium is 3.8, and patient is receiving potassium replacements. Magnesium is 1.9. She is sedated, on mechanical ventilation. She was on Nimbex drip at [facility], which had been discontinued prior to transfer. Lung sounds are clear to auscultation, no significant secretions from the ET tube. Patient is afebrile. Today's chest x-ray showed patchy left upper lobe density, hyperinflation. She is covered with azithromycin and ceftriaxone, she is getting IV Solu-Medrol , and she is on nebulized bronchodilators. On 07/26/2018 patient seen in follow-up the intensive care unit. She remains sedated, intubated, on mechanical ventilator. Patient was given a trial of sedation holiday yesterday, however she became very restless, tachypneic, she started opening her eyes, but in view of her agitation she was placed back on sedation. Ventilator settings are assist-control mode with a rate of 16, tidal vital 400, FiO2 45%, and PEEP of 5. This morning's blood gas was reviewed, pO2 is 82, pCO2 is 41, pH is 7.52. Maintenance IV fluids as D5 0.45 at a rate of 40 ML per hour, levo fed is off, Diprivan is at 50 mics per kilo per minute, Versed is at 4.5 mg/hr. tube feedings were started yesterday, with vital 1.2 at a rate of 35 with a goal of 35. They have been on hold since midnight, patient is scheduled for trach and PEG or bowel. Today's chest x-ray has been reviewed , andshowed no acute process. Stable chest. Afebrile, hemodynamically stable. We'll continue with current medical treatment. Today's labs showed WBC of 13.9, hemoglobin is 11.8, sodium is 142, potassium is 2.5, chloride is 120, BUN is 23, creatinine is 0.28, magnesium is 1.4, and calcium is 5.6. He's electrolytes are being corrected, patient is receiving IV potassium chloride, and potassium phosphate, follows magnesium replacements. Continue with nebulized bronchodilators. Lung sounds are essentially clear. On 08/01/2018 patient seen in follow-up in the intensive care unit. She is awake and alert, still has a profound generalized weakness, she is on 30% trach collar, seems to be fairly comfortable, no difficulty breathing, periodically requires suctioning, her has been small amount of blood-tinged sputum suctioned out of her tracheostomy. Otherwise she is maintaining stable oxygenation, pulse ox is 94-97%, on FiO2 of 30%, lung sounds are positive for a few rhonchi, over left base anteriorly. Patient is afebrile, hemodynamically stable. She has a PEG tube in place, and she is receiving tube feedings and she is tolerating them well. He is scheduled for swallow evaluation today. She continues on oral prednisone, nebulized bronchodilators, we stopped her antibiotics. No ongoing fever or chills, she is receiving GI and DVT prophylaxis, his chest x-ray has been reviewed, and showed bullous emphysema and stable left greater than the right upper lung opacities representing possible scarring. No acute changes noted. Objective - Vital Signs Vital signs: Vital Signs Temp 98.6 F 08/01/18 04:00 Pulse 99 08/01/18 07:44 Resp 17 08/01/18 07:00 BP 122/74 08/01/18 07:00 Pulse Ox 94 L 08/01/18 07:00 Intake & Output 07/31/18 08/01/18 08/01/18 18:59 06:59 18:59 Intake Total 1947.2 1809.133 Output Total 3075 2425 Balance -1127.8 -615.867 Weight 53.6 kg Intake: IV 806 762 0.9NS Pressure Bag 66 42 Dextrose 5%-0.45% NaCl 1, 440 520 000 ml @ 40 mls/hr IV . Q24H [facility] Rx#:[id number] Magnesium Sulfate-D5w Pmx 300 1 gm In Dextrose/Water 1 100ml.bag @ 100 mls/hr IVPB Q1H [facility] Rx#: [id number] Magnesium Sulfate-D5w Pmx 200 1 gm In Dextrose/Water 1 100ml.bag @ 100 mls/hr IVPB Q1H [facility] Rx#: [id number] Intake, IV Titration 11.2 22.133 Amount Immune Globulin (Human- 11.2 22.133 IgG) 20 gm In Empty Bag 1 bag @ Titrate IV .Q0M [facility] Rx#:[id number] Tube Feeding 880 935 Other 250 90 Output: Urine 3075 2225 Stool 200 Other: Voiding Method Indwelling Catheter Indwelling Catheter # Bowel Movements 100 ABP, PAP, CO, CI - Last Documented Arterial Blood Pressure 121/57 - Exam GENERAL EXAM: Alert, pleasant, 58-year-old white female, on 30% trach collar, in no acute distress HEAD: Normocephalic/atraumatic. EYES: Normal reaction of pupils, equal size. Conjunctiva pink, sclera white. NOSE: Clear with pink turbinates. THROAT: No erythema or exudates. NECK: No masses, no JVD, no thyroid enlargement, no adenopathy. CHEST: No chest wall deformity. Symmetrical expansion. LUNGS: Equal air entry with rhonchi over left lower lobe CVS: Regular rate and rhythm, normal S1 and S2, no gallops, no murmurs, no rubs ABDOMEN: Soft, nontender. Patient has a right sided colostomy with liquid output. No hepatosplenomegaly, normal bowel sounds, no guarding or rigidity. Patient has a PEG tube in place, she starting tube feedings EXTREMITIES: No clubbing, no edema, no cyanosis, 2+ pulses and upper and lower extremities. MUSCULOSKELETAL: Muscle strength and tone normal. SPINE: No scoliosis or deformity SKIN: No rashes CENTRAL NERVOUS SYSTEM: Awake and alert, severe generalized weakness. - Labs CBC & Chem 7: 08/01/18 04:25 08/01/18 04:25 Labs: Abnormal Lab Results - Last 24 Hours (Table) 07/31/18 07/31/18 08/01/18 Range/Units 11:51 16:33 04:25 WBC 12.3 H (3.8-10.6) k/uL RBC 3.41 L (3.80-5.40) m/uL Hgb 11.0 L (11.4-16.0) gm/dL MCV 102.1 H (80.0-100.0) fL Neutrophils # (Manual) 9.30 H (1.3-7.7) k/uL Metamyelocytes # (Man) 0.37 H (0) k/uL Myelocytes # (Manual) 0.25 H (0) k/uL Carbon Dioxide (22-30) mmol/L BUN (7-17) mg/dL Creatinine (0.52-1.04) mg/dL POC Glucose (mg/dL) 165 H 173 H (75-99) mg/dL 08/01/18 08/01/18 Range/Units 04:25 07:33 WBC (3.8-10.6) k/uL RBC (3.80-5.40) m/uL Hgb (11.4-16.0) gm/dL MCV (80.0-100.0) fL Neutrophils # (Manual) (1.3-7.7) k/uL Metamyelocytes # (Man) (0) k/uL Myelocytes # (Manual) (0) k/uL Carbon Dioxide 35 H (22-30) mmol/L BUN 21 H (7-17) mg/dL Creatinine 0.40 L (0.52-1.04) mg/dL POC Glucose (mg/dL) 134 H (75-99) mg/dL Assessment and Plan Plan: Assessment: #1. Acute on chronic hypercapnic and hypoxic respiratory failure secondary to an acute exacerbation of chronic obstructive pulmonary disease requiring intubation and mechanical ventilation. CT scan field extensive bullous emphysema. Patient has chronic changes in the left upper lobe inflammatory opacity that is been followed for sometime in the outpatient setting. Patient is status post tracheostomy insertion, currently on 30% trach collar #2. Severe oxygen-dependent and steroid-dependent chronic obstructive pulmonary disease with a baseline FEV1 of 36% of predicted #3. Hypokalemia, hypomagnesemia, improved #5. Chronic tobacco dependence #6. Chronic left upper lobe inflammatory opacity followed on an outpatient basis #7. Crohn's disease with previous colectomy and diverting ostomy #8. Previous history of right pneumothorax #9. History of nephrolithiasis #10. Hyperlipidemia #11. Hypothyroidism #12. Poor overall functional capacity secondary to the above-mentioned multiple comorbidities #13. PEG tube insertion, and patient is currently tolerating tube feedings, is scheduled for a swallow evaluation sometime today. Plan: Continue current plan of treatment, continue until his prednisone, nebulized bronchodilators, nutritional support via PEG tube feedings. Patient is maintaining stable oxygenation on 30% trach collar, and is not noted to be having any difficulty breathing on her own. She is scheduled for a swallow evaluation today. Chest x-ray has been reviewed, no acute changes, patient remains stable. [facility] or tomorrow for further rehabilitation and aggressive physical therapy I performed a history & physical examination of the patient and discussed their management with my nurse practitioner, Carmella Jimenez. I reviewed the nurse practitioner's note and agree with the documented findings and plan of care. Lung sounds are clear. The findings and the impression was discussed with the patient. I attest to the documentation by the nurse practitioner. Time with Patient: Greater than 30
--- NOTE | 2018-08-01 10:47 | P.CONS ---
History of Present Illness - Reason for Consult Consult date: 08/01/18 Abdominal pain history of Crohn's disease Requesting physician: Amadeo Sanchez - Chief Complaint Shortness of breath - History of Present Illness 58-year-old female well known to Dr. Verma service with past medical history of Crohn's ileitis ileostomy maintained on Humira prednisone and MCP, chronic increased ileostomy output, COPD, GERD, hypertension, fibromyalgia. Transferred from the [facility] on 07/24/2018 (admitted there ) with difficulty breathing secondary to severe COPD exacerbation acute hypoxic respiratory failure sepsis pneumonia requiring ventilator dependent respiratory failure on admission. Consult requested for history of Crohn's abdominal pain. Patient has had a protracted hospitalization she is underwent a tracheostomy and PEG tube placement. Receiving IVIG for severe muscle weakness myopathy and oral steroids. There was concern regarding increased ileostomy output. In the past patient's ileus edematous been maintained by opium tincture 2 mL 4 times daily in combination with Humira Humira injections for maintenance of Crohn's disease. Presently resting in the ICU setting. No complaints of abdominal pain at this time. [facility] later today. White count has been fluctuating over the week presently 12.3 was 17.5 yesterday and 26.2 day prior. Afebrile. Review of Systems Obtained from medical records Constitutional: Denies fever, chills, sweats, weight gain, or loss. HEENT: Negative for migraines, blurred vision or loss, earaches, drainage, tinnitus, oral mucosal lesions, dysphagia, or odynophagia. CARDIAC: Negative for chest pain, arrhythmias, or palpitation. RESPIRATORY: Admitted with shortness of breath, denies hemoptysis, cough, or sputum production. GI: See HPI for pertinent findings. : Negative for hematuria, urgency, frequency, polyuria, or dysuria. GYNc: Negative vaginal discharge. MUSCULOSKELETAL: Fibromyalgia. NEUROLOGIC: Negative for stroke or TIA. ENDOCRINE: Negative for thyroid problems. SKIN: Negative for rash or itching. PSYCHIATRIC: Negative history for depression and anxiety ROS unobtainable: due to mental status Past Medical History Past Medical History: COPD, Fibromyalgia, GERD/Reflux, GI Bleed, Hyperlipidemia , Hypertension, Osteoarthritis (OA), Pneumonia, Syncope Additional Past Medical History / Comment(s): COPD, crohn's, bowel obstructions , lower GI bleeds, hiatal hernia, osteoporosis, arthritis multiple joints, seasonal allergies, right-sided pneumothorax x2; ventilator with this admit 07/24 - transfer from [facility] r/t leelee History of Any Multi-Drug Resistant Organisms: None Reported Past Surgical History: Breast Surgery, Cholecystectomy, Hernia Repair, Hysterectomy, Orthopedic Surgery Additional Past Surgical History / Comment(s): Multiple bowel surgeries including total colectomy/ileostomy, ileostomy moved/repaired, R tube and R ovary removed due tectopic , total hysterectomy, leep procedure, laparoscopy for endometriosis, L breast lumpectomy-benign, r breast core bx- benign, EGD/colonoscopies. Right-sided Thora-vent placement May 09 and May 19. Eye surgery bilateral,arthroscopic knee surgery on he right due to ACL and Maniscal tear. Past Anesthesia/Blood Transfusion Reactions: No Reported Reaction Past Psychological History: Anxiety Smoking Status: Former smoker (quit in April 2018) Past Alcohol Use History: Unable to Obtain Past Drug Use History: Unable to Obtain - Past Family History Mother Family Medical History: Cancer, COPD, Hypertension Additional Family Medical History / Comment(s): Mother at age 83 from COPD and osteoarthritis and had skin cancer. Father Family Medical History: Cancer, CVA/TIA, Dementia, Diabetes Mellitus Additional Family Medical History / Comment(s): Father is 90yrs old. Brother(s) Family Medical History: Cancer Additional Family Medical History / Comment(s): Patient had 5 brothers and one of them from melanoma. Sister(s) History Unknown: Yes (mother disease at 83 from COPD with also arthritis skin cancer, father had cancer CVA dementia diabetes mellitus at age 90, 5 brothers one from melanoma, one sister who is healthy, no children) Family Medical History: No Reported History Additional Family Medical History / Comment(s): Patient has one sister. Patient has no kids. Medications and Allergies Home Medications Medication Instructions Recorded Confirmed Type Aclidinium [place] [Tudorza 400 mcg INHALATION RT-BID 06/21/14 07/24/18 History Pressair] Adalimumab [Humira Pen] 40 mg SQ TU 06/21/14 07/24/18 History Fluticasone/Vilanterol [Breo 1 puff INHALATION RT-DAILY 04/27/16 07/24/18 History Ellipta 100-25 Mcg Inhaler] Opium Tincture 0.8 mg PO QID 04/27/16 07/24/18 History Mercaptopurine [Purinethol] 50 mg PO BID 02/22/17 07/24/18 History busPIRone HCl [Buspar] 10 mg PO BID 05/09/17 07/24/18 History Atenolol 25 mg PO DAILY 05/20/17 07/24/18 History Latanoprost Ophth [Xalatan 0.005%] 1 drop BOTH EYES HS 05/21/17 07/24/18 History HYDROcodone/APAP 10-325MG [Neely 1 tab PO Q6HR PRN 06/24/17 07/24/18 History 10-325] Gabapentin [Neurontin] 300 mg PO TID 12/08/17 07/24/18 History Nystatin 100,000 Unit/ml Susp 500,000 unit PO QID PRN 05/16/18 07/24/18 History [Mycostatin Oral Susp] Albuterol Inhaler [Ventolin Hfa 1 puff INHALATION RT-DAILY 07/24/18 07/24/18 History Inhaler] Cholecalciferol (Vitamin D3) 2,000 unit PO DAILY 07/24/18 07/24/18 History [Vitamin D3] Clotrimazole/Betamethasone Dip 1 applic TOPICAL DAILY 07/24/18 07/24/18 History [Lotrisone Cream] Cyanocobalamin [Vitamin B-12 1,000 mcg SQ QMONTH 07/24/18 07/24/18 History Injection] Denosumab [Prolia] 60 mg SQ Q180D 07/24/18 07/24/18 History Dicyclomine [Bentyl] 10 mg PO TID 07/24/18 07/24/18 History Magnesium Oxide [Mag-Ox] 250 mg PO DAILY 07/24/18 07/24/18 History Meclizine [Antivert] 25 mg PO TID 07/24/18 07/24/18 History Melatonin 5 mg PO HS PRN 07/24/18 07/24/18 History Nystatin 100,000 Unit/gm Powd 1 applic TOPICAL BID 07/24/18 07/24/18 History [Mycostatin Powder] Ondansetron [Zofran] 4 mg PO Q6HR 07/24/18 07/24/18 History Allergies Allergy/AdvReac Type Severity Reaction Status Date / Time Iodinated Contrast- Oral and Allergy Anaphylaxis Verified 07/24/18 13:52 IV Dye pregabalin [From Lyrica] Allergy Unknown Verified 07/24/18 13:52 rofecoxib [From Vioxx] Allergy Unknown Verified 07/24/18 13:52 Sulfa (Sulfonamide Allergy Rash/Hives Verified 07/24/18 13:52 Antibiotics) aspirin AdvReac Internal Verified 07/24/18 13:52 Bleeding timolol [Timolol] AdvReac Nausea & Verified 07/24/18 13:52 Vomiting Physical Exam Vitals: Vital Signs Temp Pulse Resp BP Pulse Ox 08/01/18 07:44 99 08/01/18 07:30 95 08/01/18 07:21 96 08/01/18 07:00 92 17 122/74 94 L 08/01/18 06:00 97 20 106/66 96 08/01/18 05:00 99 14 137/74 97 08/01/18 04:06 96 08/01/18 04:00 98.6 F 93 14 112/62 96 08/01/18 03:00 100 15 91/56 95 08/01/18 02:00 72 18 91/62 97 08/01/18 01:00 78 15 87/55 95 08/01/18 00:32 96 08/01/18 00:00 98.6 F 75 15 101/61 96 07/31/18 23:00 79 20 107/68 91 L 07/31/18 22:30 89 25 H 116/67 93 L 07/31/18 22:00 96 28 H 115/64 96 07/31/18 21:30 88 21 116/67 97 07/31/18 21:00 89 20 121/71 96 07/31/18 20:56 94 07/31/18 20:41 83 07/31/18 20:40 83 07/31/18 20:30 84 20 110/66 97 07/31/18 20:00 98.5 F 85 15 104/70 95 07/31/18 19:30 89 12 103/63 95 07/31/18 19:00 85 17 101/66 96 07/31/18 18:30 85 14 95/65 93 L 07/31/18 18:00 85 18 95 07/31/18 17:00 93 24 95 07/31/18 16:26 92 07/31/18 16:10 92 07/31/18 16:00 98.5 F 90 20 108/62 95 07/31/18 15:00 103 H 26 H 87/61 95 07/31/18 14:00 103 H 24 103/69 95 07/31/18 13:00 110 H 19 95 07/31/18 12:43 86 07/31/18 12:15 102 H 07/31/18 12:00 98.7 F 82 14 117/62 93 L 07/31/18 11:00 95 12 94 L 07/31/18 10:00 109 H 18 94 L 07/31/18 09:11 105 H 07/31/18 09:00 98.6 F 106 H 15 97 07/31/18 08:53 104 H 07/31/18 08:31 103 H Intake and Output 07/31/18 08/01/18 08/01/18 22:59 06:59 14:59 Intake Total 0102.260 6207 Output Total 1550 1625 Balance -392.667 -373 Intake: IV 359 587 0.9NS Pressure Bag 39 27 Dextrose 5%-0.45% NaCl 1, 320 360 000 ml @ 40 mls/hr IV . Q24H [facility] Rx#:[id number] Magnesium Sulfate-D5w Pmx 200 1 gm In Dextrose/Water 1 100ml.bag @ 100 mls/hr IVPB Q1H [facility] Rx#: [id number] Intake, IV Titration 33.333 Amount Immune Globulin (Human- 33.333 IgG) 20 gm In Empty Bag 1 bag @ Titrate IV .Q0M [facility] Rx#:[id number] Tube Feeding 605 605 Other 160 60 Output: Urine 1550 1425 Stool 200 Other: Voiding Method Indwelling Catheter Indwelling Catheter Weight 53.6 kg General appearance: The patient is lethargic but awakens when stimulated, in no acute distress. HET: Head is normocephalic and atraumatic. Pupils are equal and reactive. Oropharynx is clear without lesions. Neck: Supple without lymphadenopathy. Trachea midline. trach without erythema intact. Heart: S1 S2. Regular rate and rhythm. Lungs: No crackles or wheezes are heard. Diminished bilaterally. Abdomen: Soft, very minimal tenderness when palpated across mid abdomen, nondistended with bowel sounds. PEG tube without erythema or drainage feeds infusing. No peritoneal signs. No palpable organomegaly or masses. Extremities: Bilateral foot supports. Ribera with clear yellow urine. Normal skin color and turgor. No cyanosis, rash, ulceration, clubbing, or edema. Radial and pedal pulses are 2/4 bilaterally. Neurological: Profoundly weak and all extremities +1 Results CBC & Chem 7: 08/01/18 04:25 08/01/18 04:25 Labs: Abnormal Lab Results - Last 24 Hours (Table) 07/31/18 07/31/18 08/01/18 Range/Units 11:51 16:33 04:25 WBC 12.3 H (3.8-10.6) k/uL RBC 3.41 L (3.80-5.40) m/uL Hgb 11.0 L (11.4-16.0) gm/dL MCV 102.1 H (80.0-100.0) fL Neutrophils # (Manual) 9.30 H (1.3-7.7) k/uL Metamyelocytes # (Man) 0.37 H (0) k/uL Myelocytes # (Manual) 0.25 H (0) k/uL Carbon Dioxide (22-30) mmol/L BUN (7-17) mg/dL Creatinine (0.52-1.04) mg/dL POC Glucose (mg/dL) 165 H 173 H (75-99) mg/dL 08/01/18 08/01/18 Range/Units 04:25 07:33 WBC (3.8-10.6) k/uL RBC (3.80-5.40) m/uL Hgb (11.4-16.0) gm/dL MCV (80.0-100.0) fL Neutrophils # (Manual) (1.3-7.7) k/uL Metamyelocytes # (Man) (0) k/uL Myelocytes # (Manual) (0) k/uL Carbon Dioxide 35 H (22-30) mmol/L BUN 21 H (7-17) mg/dL Creatinine 0.40 L (0.52-1.04) mg/dL POC Glucose (mg/dL) 134 H (75-99) mg/dL Assessment and Plan (1) Crohn's ileitis Narrative/Plan: 58-year-old female with a history of long-standing Crohn's ileitis ileostomy admitted with profound shortness of breath secondary to acute on chronic hypercapnic and hypoxic respiratory failure secondary to an acute exacerbation of COPD steroid dependent requiring intubation and mechanical ventilation with extensive bullous emphysema status post tracheostomy tube insertion. Intermittent abdominal pain during hospitalization but presently without significant abdominal pain. History of chronic ileostomy output however presently under control with opium tincture 2 mL 4 times a day. Current Visit: Yes Status: Chronic Code(s): K50.00 - CROHN'S DISEASE OF SMALL INTESTINE WITHOUT COMPLICATIONS SNOMED Code(s): 68304437 (2) Myopathy Current Visit: Yes Status: Acute Code(s): G72.9 - MYOPATHY, UNSPECIFIED SNOMED Code(s): 52551002 (3) Acute exacerbation of chronic obstructive airways disease Current Visit: Yes Status: Acute Code(s): J44.1 - CHRONIC OBSTRUCTIVE PULMONARY DISEASE W (ACUTE) EXACERBATION SNOMED Code(s): 697010439 Plan: 1. Abdominal x-rays ordered results are pending. Presently without significant abdominal pain. In regards to ileostomy output maintenance continue with opium tincture 2 mL's 4 times a day. Hold Humira on discharge. Continue with prednisone therapy. Return to office in 4-6 weeks for reevaluation. Thank you for this kind referral and the opportunity to participate in the care of your patient. This consultation was discussed with Dr. Almanzar. The impression and plan of care have been directed as dictated.
[2018-08-01] MEDS: OPIUM TINCTURE PO SCH ×4 (11:46→20:47)
[2018-08-01 12:00] LABS: Glucose,Whole Blood 161 mg/dL (75-99)
--- NOTE | 2018-08-01 12:12 | XR ---
EXAMINATION TYPE: XR abdomen 2V DATE OF EXAM: 08/01/2018 CLINICAL DATA: 58-year-old female with pain, [facility] COMPARISON: 05/16/2018 FINDINGS: Lung bases are clear. No evidence for free intraperitoneal air. No dilated small bowel loops or air-fluid levels. Some scattered bowel gas is present including dista lly in the rectum. No significant stool burden. Scattered surgical clips right midabdomen and midline pelvis. An enterostomy tube is present. No suspicious calcifications identified. IMPRESSION: 1. Enterostomy tube is present. 2. Overall nonobstructive bowel gas pattern. No free air seen.
--- NOTE | 2018-08-01 12:32 | FL ---
EXAMINATION TYPE: FL barium swallow w video DATE OF EXAM: 08/01/2018 COMPARISON: NONE HISTORY: aspiration TECHNIQUE: Fluoroscopy. FINDINGS: Fluoroscopic guidance was provided for the procedure performed in conjunction with the [facility] [place] [facility] [place]. Please see complete report forthcoming from the Speech Pathology departmen t. Various consistencies from thin liquid to solids were administered. Fluoroscopy time 45 seconds Number of images: 0. Exam was very limited due to patient's physical condition at the time of the exam. With 2 spoonfuls o f thin liquid, aspiration was documented. Due to the condition additional testing was not performed. IMPRESSION: 1. Aspiration with thin liquids.
[2018-08-01 12:38] LABS: Glucose,Whole Blood 199 mg/dL (75-99)
[2018-08-01 13:49] VITALS: BMI 20.9
--- NOTE | 2018-08-01 14:35 | P.PN ---
Subjective Progress Note Date: 08/01/18 this is a 58-year-old pleasant female patient of Dr. Heber James. 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 Mistry treated with the dorsa Brio and albuterol in the outpatient setting. Also required home O2, she was transferred from [facility], admitted there 07/18/2018 secondary to COPD exacerbation. Patient required mechanical ventilation on admission, requiring Nimbex and propofol , was having difficulty in weaning off parameters, and currently is on Versed, which she has tolerated better. She also requires gentle diuresis, with IV Lasix, currently on a negative fluid balance. She is on empiric antibiotics in the form of Rocephin and Zithromax. They're planning on PEG and trach placement, however with the large bullae that was noted on routine x-rays yesterday, showing at least 25% of her left side, concern for pneumothorax, they [facility], from [facility] to ICU transfer, uninterrupted mechanical ventilation during her transfers.patient is on levo fedSolu-Medrol 60 Lasix 20 mg every 8 hours. Patient has been off her Humira prior to admission. 07/25: Patient remains intubated and on mechanical ventilation with tidal volume 400, FiO2 40 and PEEP of 5. Patient is managed by Dr. Meza. Norepinephrine is currently on hold as well as sedation and Versed dose is being decreased. Potassium and magnesium have been replaced. Patient is on tube feedings tolerating at 35 mL per hour. Patient has been seen by cardiothoracic surgery with no plan for any surgical intervention regarding the bolus emphysema at this time. Repeat chest x-ray is stable, patchy left upper lobe density persist. Pleural effusion unchanged. Dr. Aguayo is on consult with plan for tracheostomy and PEG tube placement for tomorrow. Family updated at the bedside. 07/26: Patient remains in the intensive care unit intubated and on mechanical ventilation. Patient required levo fed last evening which has not been discontinued. She did have a period of low urine output during the night but this is improved. White count is down to 13.9. Potassium, magnesium and calcium are being replaced. Patient is scheduled for PEG tube and trach today with Dr. Aguayo. Family updated at the bedside. 07/27: Patient is status post trach and PEG tube. Tube feeding started this morning. She is off MRSA and propofol for spontaneous breathing trial today. Urine output has been running 50-80 mL per hour. The patient required small amount of Versed after being given Dilaudid 2 mg. Pain medication changed to Dilaudid 0.5 mg every 3 hours as needed and [place] elixir 15 ML's every 6 hours as needed 07/28: Patient is status post trach and PEG tube. Patient was on a sedation holiday yesterday experience agitation during that time. Patient continues to have sedation at this time. Unable to follow commands with right hand and bilateral lower extremities, has minimal movement of hand. Able to follow commands with left hand and arm. Urine output continues to be running 50/80 ML per hour. Sedation holiday to continue today. Patient continues to have Dilaudid for pain management. Will continue to slowly advance tube feeds and may remove tracheostomy ties today. 07/29: The patient had a tracheostomy and PEG tube placed on 07/26/2018. The patient's FEV1 is 36% of predicted. Patient is currently on ativan 0.5mg q 6 hours and CPAP trial. Arterial blood gases show a PaO2 of 78 a PaCO2 of 39 and a pH 7.47. This is consistent with a mild metabolic alkalosis. Microbiologic studies are pending or negative. White count is 21.9, hemoglobin 11.4, hematocrit 35.5 and platelet count is normal. Electrolytes are normal. BUS 25 and creatinine is 0.47. Urine output continues to be running 50/80 ML per hour. Patient is able to nod appropriately to questions. Patient is unable to follow commands to extremities. Limited monitor shows sinus tachycardia in the 110's. 07/30: Patient remains in the intensive care unit. She is on a trach collar and tolerating tube feedings. Neurology consult is pending. She is currently on Solu-Medrol 40 mg every 6 hours and changed to oral prednisone for tomorrow. She is complaining of stomach pain. Patient is able to communicate. Opium dose verified and to be started. Discussed with lining caser regarding Celexa especially Hospital transfer of this week. 07/31: Patient has been seen by neurology and started on IVIG. Patient's pain is not controlled and Dilaudid 2 mg will be discontinued and placed on 1 mg and [place] increased to every 4 hours. Patient has been cleared for transfer to [facility] from pulmonary medicine. Social work is making arrangements and possible transfer today pending insurance authorization. 08/01: Consult for GI was added yesterday as patient was having ongoing abdominal pain and on opium and patient is well-known to Dr. Ram. Recommendations to continue opium tincture, prednisone therapy and return to the office in 4-6 weeks for reevaluation. Abdominal x-ray shows enterostomy tube is present. Overall nonobstructive bowel gas pattern. No free air seen. Modified barium swallow was done this morning that showed aspiration with thin liquids. She remains in the intensive care unit on 30% trach collar. She is requiring suctioning of blood-tinged sputum. She has been hemodynamically stable. Her PEG tube is being used and she is tolerating feedings. She is [facility] once arrangements completed. Objective - Vital Signs Vital signs: Vital Signs Temp 98.8 F 08/01/18 12:00 Pulse 109 H 08/01/18 13:00 Resp 22 08/01/18 13:00 BP 113/69 08/01/18 13:00 Pulse Ox 97 08/01/18 13:00 Intake & Output 07/31/18 08/01/18 08/01/18 18:59 06:59 18:59 Intake Total 1947.2 1809.133 643 Output Total 3075 2425 900 Balance -1127.8 -615.867 -257 Weight 53.6 kg 53.6 kg Intake: IV 806 762 258 0.9NS Pressure Bag 66 42 18 Dextrose 5%-0.45% NaCl 1, 440 520 240 000 ml @ 40 mls/hr IV . Q24H [facility] Rx#:[id number] Magnesium Sulfate-D5w Pmx 300 1 gm In Dextrose/Water 1 100ml.bag @ 100 mls/hr IVPB Q1H [facility] Rx#: [id number] Magnesium Sulfate-D5w Pmx 200 1 gm In Dextrose/Water 1 100ml.bag @ 100 mls/hr IVPB Q1H [facility] Rx#: [id number] Intake, IV Titration 11.2 22.133 Amount Immune Globulin (Human- 11.2 22.133 IgG) 20 gm In Empty Bag 1 bag @ Titrate IV .Q0M [facility] Rx#:[id number] Tube Feeding 880 935 385 Other 250 90 Output: Urine 3075 2225 900 Stool 200 0 Other: Voiding Method Indwelling Catheter Indwelling Catheter Indwelling Catheter # Bowel Movements 100 ABP, PAP, CO, CI - Last Documented Arterial Blood Pressure 121/57 - Exam General appearance: Present: average body habitus, no acute distress - EENT Eyes: Present: anicteric sclerae, EOMI, PERRLA ENT: Present: NA/AT, trach collar with blood -tinged sputum - Neck Neck: Present: normal ROM. Absent: lymphadenopathy, rigidity, stridor - Respiratory Respiratory: bilateral: diminished, rales, rhonchi, wheezing - Cardiovascular Heart rate: 112 Rhythm: regular Heart sounds: normal: S1, S2 Abnormal Heart Sounds: Absent: systolic murmur, diastolic murmur, rub, S3 Gallop , S4 Gallop, click - Gastrointestinal General gastrointestinal: Present: normal bowel sounds, soft. Absent: tenderness - Integumentary Integumentary: Present: decreased turgor. Absent: rash - Musculoskeletal Musculoskeletal Comment(s): Patient able to nod appropriately to questions asked. Patient attempts to follow extremity commands with generalized weakness to upper and lower extremities. - Labs CBC & Chem 7: 08/01/18 04:25 08/01/18 04:25 Labs: Abnormal Lab Results - Last 24 Hours (Table) 07/31/18 08/01/18 08/01/18 Range/Units 16:33 04:25 04:25 WBC 12.3 H (3.8-10.6) k/uL RBC 3.41 L (3.80-5.40) m/uL Hgb 11.0 L (11.4-16.0) gm/dL MCV 102.1 H (80.0-100.0) fL Neutrophils # (Manual) 9.30 H (1.3-7.7) k/uL Metamyelocytes # (Man) 0.37 H (0) k/uL Myelocytes # (Manual) 0.25 H (0) k/uL Carbon Dioxide 35 H (22-30) mmol/L BUN 21 H (7-17) mg/dL Creatinine 0.40 L (0.52-1.04) mg/dL POC Glucose (mg/dL) 173 H (75-99) mg/dL 08/01/18 08/01/18 08/01/18 Range/Units 07:33 11:57 12:36 WBC (3.8-10.6) k/uL RBC (3.80-5.40) m/uL Hgb (11.4-16.0) gm/dL MCV (80.0-100.0) fL Neutrophils # (Manual) (1.3-7.7) k/uL Metamyelocytes # (Man) (0) k/uL Myelocytes # (Manual) (0) k/uL Carbon Dioxide (22-30) mmol/L BUN (7-17) mg/dL Creatinine (0.52-1.04) mg/dL POC Glucose (mg/dL) 134 H 161 H 199 H (75-99) mg/dL Assessment and Plan Plan: 1. Severe COPD exacerbation with acute on chronic hypercapnic and hypoxemic respiratory failure requiring intubation and mechanical ventilation, managed by Dr. Meza. COPD exacerbation with CT evidence of bullous emphysema left side. Consult with cardiothoracic surgery appreciated. Continue IV steroids, mechanical ventilation, levo off, nebulized albuterol Atrovent. PEG tube and trach with Dr. Aguayo. 2. Sepsis with septic shock most likely secondary to pneumonia, currently off Levophed, continue on Rocephin and Zithromax. Pain medications adjusted 3. Chronic diastolic heart failure. IV Lasix is discontinued, monitor urine output, I's and O's. 4. Sinus tachycardia. Patient was on metoprolol 25 mg 3 times daily at [facility], currently on hold due to hypotension. 5. History of Crohn's, has ileostomy on the right side, patient currently off Humira can use Lomotil when necessary 6. Generalized anxiety disorder, currently sedated, was on BuSpar prior to admission 7. Fibromyalgia with neuropathy, was on [place] 8. Severe protein calorie malnutrition requiring tube feedings with albumin of 2.8. PEG tube feedings started. MBS reveals aspiration. 9. Altered mental status changes, metabolic encephalopathy, secondary to sepsis or sedation, but improved from the weekend. Will hold off further testing until reassessment tomorrow with continued decrease of sedation medications. Neurology on consult. 10. Critical illness myopathy, will obtain a CK-MB, consult neurology. IVIG infusions. DVT prophylaxis Heparin GI prophylaxis Protonix Dis[facility]: [facility] Impression and plan of care have been directed as dictated by the signing physician. Gaby Rothman nurse practitioner acting as scribe for signing physician.
[2018-08-01] MEDS: NYSTATIN 100,000 UNIT/ML SUSP 500,000 UNIT/5 ML CUP PO SCH ×3 (14:40→22:42)
[2018-08-01 15:52] LABS: Glucose,Whole Blood 155 mg/dL (75-99)
[2018-08-01] MEDS ORDERED: Magnesium Replacement Protocol 1 EACH MISC MISCELLANE PRN (16:18)
[2018-08-01] MEDS ORDERED: POTASSIUM BICARBONATE/CIT AC 20 MEQ TABLET.EFF NG-TUBE ONE (17:00)
[2018-08-01] MEDS ORDERED: IMMUNE GLOBULIN (GAMMAGARD) 20 GM in EMPTY BAG 1 BAG IV ONE (18:00)
[2018-08-01] MEDS ORDERED: SODIUM CHLORIDE 0.9% 500 ML 500 ML IV ONE ×2 (18:21→19:44)
[2018-08-01] MEDS: HYDROcodone/APAP 15 ML SOLUTION PO PRN (19:15)
[2018-08-01] MEDS: DEXTROSE 5%-0.45% NACL 1,000 ML IV SCH (19:51)
[2018-08-01 20:15] LABS: Glucose,Whole Blood 142 mg/dL (75-99)
[2018-08-02 00:39] LABS: Glucose,Whole Blood 106 mg/dL (75-99)
[2018-08-02] MEDS: LORazepam 2 MG/ML INJ IV SCH ×5 (00:47→23:55)
[2018-08-02] MEDS: HYDROcodone/APAP 15 ML SOLUTION PO PRN (00:55)
[2018-08-02] MEDS: INSULIN ASPART 100 UNIT/ML 1 ML 10 ML VIAL SQ SCH ×6 (00:56→20:23)
[2018-08-02] MEDS: DILTIAZEM ORAL 60 MG TAB PO SCH ×4 (00:56→21:22)
[2018-08-02 04:46] LABS: Basophils % (A) 0 %; Eosinophils % (A) 0 %; HCT 32.1 % (34.0-46.0); HGB 10.2 gm/dL (11.4-16.0); Lymphocytes # (A) 0.8 k/uL (1.0-4.8); Lymphocytes % (A) 8 %; MCH 31.6 pg (25.0-35.0); MCHC 31.8 g/dL (31.0-37.0); MCV 99.4 fL (80.0-100.0); Macrocytosis Slight; Mean Platelet Volume 7.3; Monocytes # (A) 0.6 k/uL (0-1.0); Monocytes % (A) 6 %; Neutrophils # (A) 8.6 k/uL (1.3-7.7); Neutrophils % (A) 85 %; Platelet Count 121 k/uL (150-450); RBC 3.23 m/uL (3.80-5.40); RDW 14.6 % (11.5-15.5); WBC 10.1 k/uL (3.8-10.6)
[2018-08-02 05:07] LABS: Blood Urea Nitrogen 21 mg/dL (7-17); Calcium 8.5 mg/dL (8.4-10.2); Carbon Dioxide 32 mmol/L (22-30); Glucose 95 mg/dL (74-99); Magnesium 1.8 mg/dL (1.6-2.3); Phosphorus 3.5 mg/dL (2.5-4.5)
[2018-08-02 05:20] LABS: Anion Gap 3 mmol/L; Chloride 100 mmol/L (98-107); Potassium 4.1 mmol/L (3.5-5.1); Sodium 135 mmol/L (137-145)
[2018-08-02] MEDS: MAGNESIUM SULFATE-D5W PMX 1 GM in DEXTROSE/WATER 1 100ML.BAG IVPB SCH ×2 (06:00→08:16)
--- NOTE | 2018-08-02 07:33 | XR ---
EXAMINATION TYPE: XR chest 1V portable DATE OF EXAM: 08/02/2018 COMPARISON: 08/01/2018 INDICATION: Short of breath TECHNIQUE: Single frontal view of the chest is obtained. FINDINGS: The heart size is normal. The pulmonary vasculature is normal. Densities over the left upper lung field could be a pleural plaque or infiltrate. This is stable. Mya picious density in the right upper lung field was not clearly evident. The patient has a tracheostomy tube. Left-sided central venous catheter has its tip in the superior vena cava region. EKG leads ove rlie the chest. Patient's chin overlies the apex of the lung hunter causing some obscuration. IMPRESSION: 1. Stable appearance of the chest from prior exam.
[2018-08-02 08:03] LABS: Glucose,Whole Blood 110 mg/dL (75-99)
[2018-08-02] MEDS: OPIUM TINCTURE PO SCH ×4 (08:10→21:22)
[2018-08-02] MEDS: HEPARIN SODIUM,PORCINE 5,000 UNIT/ML 1 ML VIAL SQ SCH ×2 (08:16→21:22)
[2018-08-02] MEDS: NYSTATIN 100,000 UNIT/ML SUSP 500,000 UNIT/5 ML CUP PO SCH ×4 (08:16→21:22)
[2018-08-02] MEDS: PANTOPRAZOLE 40 MG/10 ML VIAL IVP SCH (08:16)
[2018-08-02] MEDS: predniSONE 10 MG TAB PO SCH (08:16)
[2018-08-02] MEDS: FORMOTEROL FUMARATE 20 MCG/2 ML NEBU INHALATION SCH ×2 (08:36→19:48)
[2018-08-02] MEDS: IPRATROPIUM-ALBUTEROL 3 ML NEB INHALATION SCH ×4 (08:37→19:50)
[2018-08-02] MEDS: BUDESONIDE 1 MG/2 ML NEBU INHALATION SCH ×2 (08:37→19:48)
[2018-08-02 11:49] LABS: Glucose,Whole Blood 158 mg/dL (75-99)
[2018-08-02] MEDS: predniSONE 20 MG TAB PO SCH (11:56)
--- NOTE | 2018-08-02 13:35 | P.PN ---
Subjective Progress Note Date: 08/02/18 this is a 58-year-old pleasant female patient of Dr. Heber James. 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 Mistry treated with the dorsa Brio and albuterol in the outpatient setting. Also required home O2, she was transferred from [facility], admitted there 07/18/2018 secondary to COPD exacerbation. Patient required mechanical ventilation on admission, requiring Nimbex and propofol , was having difficulty in weaning off parameters, and currently is on Versed, which she has tolerated better. She also requires gentle diuresis, with IV Lasix, currently on a negative fluid balance. She is on empiric antibiotics in the form of Rocephin and Zithromax. They're planning on PEG and trach placement, however with the large bullae that was noted on routine x-rays yesterday, showing at least 25% of her left side, concern for pneumothorax, [facility] to ICU transfer, uninterrupted mechanical ventilation during her transfers.patient is on levo fedSolu-Medrol 60 Lasix 20 mg every 8 hours. Patient has been off her Humira prior to admission. 07/25: Patient remains intubated and on mechanical ventilation with tidal volume 400, FiO2 40 and PEEP of 5. Patient is managed by Dr. Meza. Norepinephrine is currently on hold as well as sedation and Versed dose is being decreased. Potassium and magnesium have been replaced. Patient is on tube feedings tolerating at 35 mL per hour. Patient has been seen by cardiothoracic surgery with no plan for any surgical intervention regarding the bolus emphysema at this time. Repeat chest x-ray is stable, patchy left upper lobe density persist. Pleural effusion unchanged. Dr. Aguayo is on consult with plan for tracheostomy and PEG tube placement for tomorrow. Family updated at the bedside. 07/26: Patient remains in the intensive care unit intubated and on mechanical ventilation. Patient required levo fed last evening which has not been discontinued. She did have a period of low urine output during the night but this is improved. White count is down to 13.9. Potassium, magnesium and calcium are being replaced. Patient is scheduled for PEG tube and trach today with Dr. Aguayo. Family updated at the bedside. 07/27: Patient is status post trach and PEG tube. Tube feeding started this morning. She is off MRSA and propofol for spontaneous breathing trial today. Urine output has been running 50-80 mL per hour. The patient required small amount of Versed after being given Dilaudid 2 mg. Pain medication changed to Dilaudid 0.5 mg every 3 hours as needed and [place] elixir 15 ML's every 6 hours as needed 07/28: Patient is status post trach and PEG tube. Patient was on a sedation holiday yesterday experience agitation during that time. Patient continues to have sedation at this time. Unable to follow commands with right hand and bilateral lower extremities, has minimal movement of hand. Able to follow commands with left hand and arm. Urine output continues to be running 50/80 ML per hour. Sedation holiday to continue today. Patient continues to have Dilaudid for pain management. Will continue to slowly advance tube feeds and may remove tracheostomy ties today. 07/29: The patient had a tracheostomy and PEG tube placed on 07/26/2018. The patient's FEV1 is 36% of predicted. Patient is currently on ativan 0.5mg q 6 hours and CPAP trial. Arterial blood gases show a PaO2 of 78 a PaCO2 of 39 and a pH 7.47. This is consistent with a mild metabolic alkalosis. Microbiologic studies are pending or negative. White count is 21.9, hemoglobin 11.4, hematocrit 35.5 and platelet count is normal. Electrolytes are normal. BUS 25 and creatinine is 0.47. Urine output continues to be running 50/80 ML per hour. Patient is able to nod appropriately to questions. Patient is unable to follow commands to extremities. Limited monitor shows sinus tachycardia in the 110's. 07/30: Patient remains in the intensive care unit. She is on a trach collar and tolerating tube feedings. Neurology consult is pending. She is currently on Solu-Medrol 40 mg every 6 hours and changed to oral prednisone for tomorrow. She is complaining of stomach pain. Patient is able to communicate. Opium dose verified and to be started. Discussed with pillowcase turner regarding Celexa especially Hospital transfer of this week. 07/31: Patient has been seen by neurology and started on IVIG. Patient's pain is not controlled and Dilaudid 2 mg will be discontinued and placed on 1 mg and [place] increased to every 4 hours. [facility] Social work is making arrangements and possible transfer today pending insurance authorization. 08/01: Consult for GI was added yesterday as patient was having ongoing abdominal pain and on opium and patient is well-known to Dr. Ram. Recommendations to continue opium tincture, prednisone therapy and return to the office in 4-6 weeks for reevaluation. Abdominal x-ray shows enterostomy tube is present. Overall nonobstructive bowel gas pattern. No free air seen. Modified barium swallow was done this morning that showed aspiration with thin liquids. She remains in the intensive care unit on 30% trach collar. She is requiring suctioning of blood-tinged sputum. She has been hemodynamically stable. Her PEG tube is being used and she is tolerating feedings. She is waiting for transfer to [facility] once arrangements completed. 08/02: Patient is having stool from ostomy. Her pain is better controlled today. She is on tube feedings as well and tolerating. Vital signs have been stable. Patient has been afebrile. Patient remains on O2 by trach collar. No new complaints or concerns. Patient does continue to have significant extremity and generalized weakness. [facility] authorization is completed. Objective - Vital Signs Vital signs: Vital Signs Temp 98.6 F 08/02/18 08:00 Pulse 88 08/02/18 09:05 Resp 44 H 08/02/18 09:00 BP 104/57 08/02/18 09:00 Pulse Ox 100 08/02/18 09:00 Intake & Output 08/01/18 08/02/18 08/02/18 18:59 06:59 18:59 Intake Total 1248 1840.467 351 Output Total 1730 2425 350 Balance -482 -584.533 1 Weight 53.6 kg 51.4 kg Intake: IV 533 759 86 0.9NS Pressure Bag 33 39 6 Dextrose 5%-0.45% NaCl 1, 400 520 80 000 ml @ 40 mls/hr IV . Q24H [facility] Rx#:[id number] Magnesium Sulfate-D5w Pmx 100 200 1 gm In Dextrose/Water 1 100ml.bag @ 100 mls/hr IVPB Q1H [facility] Rx#: [id number] Intake, IV Titration 56.467 100 Amount Immune Globulin (Human- 56.467 IgG) 20 gm In Empty Bag 1 bag @ Titrate IV .Q0M [facility] Rx#:[id number] Magnesium Sulfate-D5w Pmx 100 1 gm In Dextrose/Water 1 100ml.bag @ 100 mls/hr IVPB Q1H [facility] Rx#: [id number] Tube Feeding 715 935 165 Other 90 Output: Urine 1730 2300 350 Stool 0 125 Other: Voiding Method Indwelling Catheter Indwelling Catheter Indwelling Catheter ABP, PAP, CO, CI - Last Documented Arterial Blood Pressure 121/57 - Exam General appearance: Present: average body habitus, no acute distress - EENT Eyes: Present: anicteric sclerae, EOMI, PERRLA ENT: Present: NA/AT, trach collar with blood -tinged sputum - Neck Neck: Present: normal ROM. Absent: lymphadenopathy, rigidity, stridor - Respiratory Respiratory: bilateral: diminished, rales, rhonchi, wheezing - Cardiovascular Heart rate: 112 Rhythm: regular Heart sounds: normal: S1, S2 Abnormal Heart Sounds: Absent: systolic murmur, diastolic murmur, rub, S3 Gallop , S4 Gallop, click - Gastrointestinal General gastrointestinal: Present: normal bowel sounds, soft. Absent: tenderness - Integumentary Integumentary: Present: decreased turgor. Absent: rash - Musculoskeletal Musculoskeletal Comment(s): Patient able to nod appropriately to questions asked. Patient attempts to follow extremity commands with generalized weakness to upper and lower extremities. - Labs CBC & Chem 7: 08/02/18 04:15 08/02/18 04:15 Labs: Abnormal Lab Results - Last 24 Hours (Table) 08/01/18 08/01/18 08/01/18 Range/Units 11:57 12:36 15:50 RBC (3.80-5.40) m/uL Hgb (11.4-16.0) gm/dL Hct (34.0-46.0) % Plt Count (150-450) k/uL Neutrophils # (1.3-7.7) k/uL Lymphocytes # (1.0-4.8) k/uL Sodium (137-145) mmol/L Carbon Dioxide (22-30) mmol/L BUN (7-17) mg/dL Creatinine (0.52-1.04) mg/dL POC Glucose (mg/dL) 161 H 199 H 155 H (75-99) mg/dL 08/01/18 08/02/18 08/02/18 Range/Units 20:13 00:38 04:15 RBC 3.23 L (3.80-5.40) m/uL Hgb 10.2 L (11.4-16.0) gm/dL Hct 32.1 L (34.0-46.0) % Plt Count 121 L (150-450) k/uL Neutrophils # 8.6 H (1.3-7.7) k/uL Lymphocytes # 0.8 L (1.0-4.8) k/uL Sodium (137-145) mmol/L Carbon Dioxide (22-30) mmol/L BUN (7-17) mg/dL Creatinine (0.52-1.04) mg/dL POC Glucose (mg/dL) 142 H 106 H (75-99) mg/dL 08/02/18 08/02/18 Range/Units 04:15 08:01 RBC (3.80-5.40) m/uL Hgb (11.4-16.0) gm/dL Hct (34.0-46.0) % Plt Count (150-450) k/uL Neutrophils # (1.3-7.7) k/uL Lymphocytes # (1.0-4.8) k/uL Sodium 135 L (137-145) mmol/L Carbon Dioxide 32 H (22-30) mmol/L BUN 21 H (7-17) mg/dL Creatinine 0.35 L (0.52-1.04) mg/dL POC Glucose (mg/dL) 110 H (75-99) mg/dL Assessment and Plan Plan: 1. Severe COPD exacerbation with acute on chronic hypercapnic and hypoxemic respiratory failure requiring intubation and mechanical ventilation, managed by Dr. Meza. COPD exacerbation with CT evidence of bullous emphysema left side. Consult with cardiothoracic surgery appreciated. Continue IV steroids, mechanical ventilation, levo off, nebulized albuterol Atrovent. PEG tube and trach with Dr. Aguayo. 2. Sepsis with septic shock most likely secondary to pneumonia, currently off Levophed, continue on Rocephin and Zithromax. Pain medications adjusted 3. Chronic diastolic heart failure. IV Lasix is discontinued, monitor urine output, I's and O's. 4. Sinus tachycardia. Patient was on metoprolol 25 mg 3 times daily at [facility], currently on hold due to hypotension. 5. History of Crohn's, has ileostomy on the right side, patient currently off Humira can use Lomotil when necessary 6. Generalized anxiety disorder, currently sedated, was on BuSpar prior to admission 7. Fibromyalgia with neuropathy, was on [place] 8. Severe protein calorie malnutrition requiring tube feedings with albumin of 2.8. PEG tube feedings started. MBS reveals aspiration. 9. Altered mental status changes, metabolic encephalopathy, secondary to sepsis or sedation, but improved from the weekend. Will hold off further testing until reassessment tomorrow with continued decrease of sedation medications. Neurology on consult. 10. Critical illness myopathy, will obtain a CK-MB, consult neurology. IVIG infusions. DVT prophylaxis Heparin GI prophylaxis Protonix Discharge [facility]: [facility] Impression and plan of care have been directed as dictated by the signing physician. Gaby Rothman nurse practitioner acting as scribe for signing physician.
--- NOTE | 2018-08-02 14:29 | P.PN ---
Subjective Progress Note Date: 08/02/18 This is a 58-year-old white female patient who was transferred from [facility] on 07/24/2018 where she presented with acute on chronic hypercapnic and hypoxic restaurant failure secondary to acute exacerbation of chronic obstructive pulmonary disease she required intubation and ventilation. She has a history of severe end-stage chronic obstructive pulmonary disease with a baseline FEV1 of 36% of predicted. She follows with Dr. Mistry in the pulmonary office, and her maintenance inhalers include 2 doors a, breathing a lot, and albuterol in the outpatient setting. She is on home oxygen. 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 She is prednisone dependent, and has had multiple episodes of COPD exacerbation. Chest x-ray was completed at the the [facility] and there appeared to be a left-sided loculated pneumothorax, computed tomography scan was ordered, and revealed evidence of bullous emphysema. Patient was transferred to [facility] with a consultation to cardiothoracic surgery. This morning she remains intubated, on mechanical ventilation, her current vent settings are assist-control mode the rate of 16, Tylenol 400, FiO2 45% and PEEP of 5. Maintenance IV fluids include D5 half- normal saline at a rate of 40 ML per hour, Versed is 55 mg per hour, Diprivan is 40 mics per kilo, per minute, levofed is at 2 mics per minute. This morning his blood gases show pO2 of 82, pCO2 47, and pH of 7.54. Patient has been diuresed, she was on Lasix 20 mg 3 times daily, and this morning's labs show a component of prerenal azotemia, with a BUN of 33, creatinine 0.56. We will discontinue the Lasix for now. The VBC 16.4, hemoglobin is 12.2, platelet count is 173, INR is 1.1. Sodium is 140, potassium is 3.8, and patient is receiving potassium replacements. Magnesium is 1.9. She is sedated, on mechanical ventilation. She was on Nimbex drip at [facility], which had been discontinued prior to transfer. Lung sounds are clear to auscultation, no significant secretions from the ET tube. Patient is afebrile. Today's chest x-ray showed patchy left upper lobe density, hyperinflation. She is covered with azithromycin and ceftriaxone, she is getting IV Solu-Medrol , and she is on nebulized bronchodilators. On 07/26/2018 patient seen in follow-up the intensive care unit. She remains sedated, intubated, on mechanical ventilator. Patient was given a trial of sedation holiday yesterday, however she became very restless, tachypneic, she started opening her eyes, but in view of her agitation she was placed back on sedation. Ventilator settings are assist-control mode with a rate of 16, tidal vital 400, FiO2 45%, and PEEP of 5. This morning's blood gas was reviewed, pO2 is 82, pCO2 is 41, pH is 7.52. Maintenance IV fluids as D5 0.45 at a rate of 40 ML per hour, levo fed is off, Diprivan is at 50 mics per kilo per minute, Versed is at 4.5 mg/hr. tube feedings were started yesterday, with vital 1.2 at a rate of 35 with a goal of 35. They have been on hold since midnight, patient is scheduled for trach and PEG or bowel. Today's chest x-ray has been reviewed , andshowed no acute process. Stable chest. Afebrile, hemodynamically stable. We'll continue with current medical treatment. Today's labs showed WBC of 13.9, hemoglobin is 11.8, sodium is 142, potassium is 2.5, chloride is 120, BUN is 23, creatinine is 0.28, magnesium is 1.4, and calcium is 5.6. He's electrolytes are being corrected, patient is receiving IV potassium chloride, and potassium phosphate, follows magnesium replacements. Continue with nebulized bronchodilators. Lung sounds are essentially clear. On 08/01/2018 patient seen in follow-up in the intensive care unit. She is awake and alert, still has a profound generalized weakness, she is on 30% trach collar, seems to be fairly comfortable, no difficulty breathing, periodically requires suctioning, her has been small amount of blood-tinged sputum suctioned out of her tracheostomy. Otherwise she is maintaining stable oxygenation, pulse ox is 94-97%, on FiO2 of 30%, lung sounds are positive for a few rhonchi, over left base anteriorly. Patient is afebrile, hemodynamically stable. She has a PEG tube in place, and she is receiving tube feedings and she is tolerating them well. He is scheduled for swallow evaluation today. She continues on oral prednisone, nebulized bronchodilators, we stopped her antibiotics. No ongoing fever or chills, she is receiving GI and DVT prophylaxis, his chest x-ray has been reviewed, and showed bullous emphysema and stable left greater than the right upper lung opacities representing possible scarring. No acute changes noted. On 08/02/2018, I'm seeing this patient for a follow-up. The patient is still profoundly weak although there is some limited improvement in motor function as the patient is sometimes able to raise her legs and she is able to raise her arms against gravity. She failed a swallow evaluation yesterday and she still receiving enteral feeding for nutritional support. She is on 30% trach collar. No respiratory difficulties. No nausea no vomiting. No hematemesis. No fever. No chills. No other complaints otherwise for now. She is able to communicate. I do discussion with her and I told her the importance of her [facility]. At hemoglobin is at 10.2 and stable. She has a normal renal function. Blood sugars are also well maintained. No other significant events overnight. She did have some low blood pressure for which she was given boluses of normal saline 500 mL yesterday. This morning he is hemodynamically stable. She is producing adequate urine output and she is mobilizing excess amount of fluid in her urine output is more than 75 mL an hour. Net fluid balance for yesterday was 1.7 L. She is still on IVIG regarding possibility of demyelinating polyneuropathy. Objective - Vital Signs Vital signs: Vital Signs Temp 98.6 F 08/02/18 08:00 Pulse 86 08/02/18 12:36 Resp 20 08/02/18 12:00 BP 99/68 08/02/18 12:00 Pulse Ox 97 08/02/18 12:00 Intake & Output 08/01/18 08/02/18 08/02/18 18:59 06:59 18:59 Intake Total 1248 1840.467 535 Output Total 1730 2425 975 Balance -482 -584.533 -440 Weight 53.6 kg 51.4 kg Intake: IV 533 759 215 0.9NS Pressure Bag 33 39 15 Dextrose 5%-0.45% NaCl 1, 400 520 200 000 ml @ 40 mls/hr IV . Q24H [facility] Rx#:[id number] Magnesium Sulfate-D5w Pmx 100 200 1 gm In Dextrose/Water 1 100ml.bag @ 100 mls/hr IVPB Q1H [facility] Rx#: [id number] Intake, IV Titration 56.467 100 Amount Immune Globulin (Human- 56.467 IgG) 20 gm In Empty Bag 1 bag @ Titrate IV .Q0M ONE Rx#:[id number] Magnesium Sulfate-D5w Pmx 100 1 gm In Dextrose/Water 1 100ml.bag @ 100 mls/hr IVPB Q1H [facility] Rx#: [id number] Tube Feeding 715 935 220 Other 90 Output: Urine 1730 2300 850 Stool 0 125 125 Other: Voiding Method Indwelling Catheter Indwelling Catheter Indwelling Catheter ABP, PAP, CO, CI - Last Documented Arterial Blood Pressure 121/57 - Exam GENERAL EXAM: Alert, pleasant, 58-year-old white female, on 30% trach collar, in no acute distress HEAD: Normocephalic/atraumatic. EYES: Normal reaction of pupils, equal size. Conjunctiva pink, sclera white. NOSE: Clear with pink turbinates. THROAT: No erythema or exudates. NECK: No masses, no JVD, no thyroid enlargement, no adenopathy. CHEST: No chest wall deformity. Symmetrical expansion. LUNGS: Equal air entry with rhonchi over left lower lobe CVS: Regular rate and rhythm, normal S1 and S2, no gallops, no murmurs, no rubs ABDOMEN: Soft, nontender. Patient has a right sided colostomy with liquid output. No hepatosplenomegaly, normal bowel sounds, no guarding or rigidity. Patient has a PEG tube in place, she starting tube feedings EXTREMITIES: No clubbing, no edema, no cyanosis, 2+ pulses and upper and lower extremities. MUSCULOSKELETAL: Muscle strength and tone normal. SPINE: No scoliosis or deformity SKIN: No rashes CENTRAL NERVOUS SYSTEM: Awake and alert, severe generalized weakness. Motor power is extremely low and upper and lower extremities. Reflexes are still preserved. - Labs CBC & Chem 7: 08/02/18 04:15 08/02/18 04:15 Labs: Abnormal Lab Results - Last 24 Hours (Table) 08/01/18 08/01/18 08/02/18 Range/Units 15:50 20:13 00:38 RBC (3.80-5.40) m/uL Hgb (11.4-16.0) gm/dL Hct (34.0-46.0) % Plt Count (150-450) k/uL Neutrophils # (1.3-7.7) k/uL Lymphocytes # (1.0-4.8) k/uL Sodium (137-145) mmol/L Carbon Dioxide (22-30) mmol/L BUN (7-17) mg/dL Creatinine (0.52-1.04) mg/dL POC Glucose (mg/dL) 155 H 142 H 106 H (75-99) mg/dL 08/02/18 08/02/18 08/02/18 Range/Units 04:15 04:15 08:01 RBC 3.23 L (3.80-5.40) m/uL Hgb 10.2 L (11.4-16.0) gm/dL Hct 32.1 L (34.0-46.0) % Plt Count 121 L (150-450) k/uL Neutrophils # 8.6 H (1.3-7.7) k/uL Lymphocytes # 0.8 L (1.0-4.8) k/uL Sodium 135 L (137-145) mmol/L Carbon Dioxide 32 H (22-30) mmol/L BUN 21 H (7-17) mg/dL Creatinine 0.35 L (0.52-1.04) mg/dL POC Glucose (mg/dL) 110 H (75-99) mg/dL 08/02/18 Range/Units 11:47 RBC (3.80-5.40) m/uL Hgb (11.4-16.0) gm/dL Hct (34.0-46.0) % Plt Count (150-450) k/uL Neutrophils # (1.3-7.7) k/uL Lymphocytes # (1.0-4.8) k/uL Sodium (137-145) mmol/L Carbon Dioxide (22-30) mmol/L BUN (7-17) mg/dL Creatinine (0.52-1.04) mg/dL POC Glucose (mg/dL) 158 H (75-99) mg/dL Assessment and Plan Plan: #1. Acute on chronic hypercapnic and hypoxic respiratory failure secondary to an acute exacerbation of chronic obstructive pulmonary disease requiring intubation and mechanical ventilation. The patient has had a tracheostomy tube insertion to assist her weaning process. She has weaned off and she is currently off the mechanical ventilator on a 30% trach collar. #2. Severe oxygen-dependent and steroid-dependent chronic obstructive pulmonary disease with a baseline FEV1 of 36% of predicted, and the patient is extensive bullous disease involving the upper lobes bilaterally. #3. Hypokalemia, hypomagnesemia, improved #5. Chronic tobacco dependence #6. 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 Crohn's disease with previous colectomy and diverting ostomy #8. Previous history of right pneumothorax #9. History of nephrolithiasis #10. Hyperlipidemia #11. Hypothyroidism #12. Poor overall functional capacity secondary to the above-mentioned multiple comorbidities #13. PEG tube insertion, and patient is currently tolerating tube feedings, is scheduled for a swallow evaluation sometime today. The patient failed swallow evaluation #14 profound motor weakness secondary to paralytics and steroids and this presentation is mainly myopathy with questionable component of neuropathy of a demyelinating in nature. Currently on IVIG. Motor function is gradually improving Plan Aggressive physical therapy and passive range of motion. Kept on the prednisone to 20 mg by mouth daily. Continue bronchodilators. The patient was being taken off the antibiotics. Enteral feeding for nutritional support. Monitor urine output. Monitor blood pressure. Patient will [facility].
[2018-08-02] MEDS: DEXTROSE 5%-0.45% NACL 1,000 ML IV SCH (15:11)
[2018-08-02 16:36] LABS: Glucose,Whole Blood 194 mg/dL (75-99)
[2018-08-02] MEDS ORDERED: IMMUNE GLOBULIN (GAMMAGARD) 20 GM in EMPTY BAG 1 BAG IV ONE (18:00)
[2018-08-02 19:52] LABS: Glucose,Whole Blood 87 mg/dL (75-99)
[2018-08-03 00:03] LABS: Glucose,Whole Blood 142 mg/dL (75-99)
[2018-08-03] MEDS: INSULIN ASPART 100 UNIT/ML 1 ML 10 ML VIAL SQ SCH ×4 (00:35→12:06)
[2018-08-03] MEDS: HYDROcodone/APAP 15 ML SOLUTION PO PRN ×4 (00:36→14:52)
[2018-08-03 04:03] LABS: Glucose,Whole Blood 93 mg/dL (75-99)
[2018-08-03] MEDS: LORazepam 2 MG/ML INJ IV SCH ×2 (04:57→12:08)
[2018-08-03 05:52] LABS: Basophils % (A) 0 %; Eosinophils # (A) 0.1 k/uL (0-0.7); Eosinophils % (A) 1 %; HCT 33.7 % (34.0-46.0); HGB 10.9 gm/dL (11.4-16.0); Lymphocytes # (A) 1.4 k/uL (1.0-4.8); Lymphocytes % (A) 12 %; MCHC 32.2 g/dL (31.0-37.0); MCV 99.3 fL (80.0-100.0); Mean Platelet Volume 7.3; Monocytes # (A) 0.7 k/uL (0-1.0); Monocytes % (A) 6 %; Neutrophils % (A) 81 %; Platelet Count 126 k/uL (150-450); RBC 3.39 m/uL (3.80-5.40); RDW 14.6 % (11.5-15.5); WBC 12.4 k/uL (3.8-10.6)
[2018-08-03 06:31] LABS: Anion Gap 5 mmol/L; Blood Urea Nitrogen 26 mg/dL (7-17); Calcium 9.2 mg/dL (8.4-10.2); Carbon Dioxide 30 mmol/L (22-30); Chloride 102 mmol/L (98-107); Glucose 92 mg/dL (74-99); Magnesium 1.6 mg/dL (1.6-2.3); Phosphorus 4.2 mg/dL (2.5-4.5); Potassium 4.3 mmol/L (3.5-5.1); Sodium 137 mmol/L (137-145)
[2018-08-03] MEDS: MAGNESIUM SULFATE-D5W PMX 1 GM in DEXTROSE/WATER 1 100ML.BAG IVPB SCH ×2 (07:25→09:46)
[2018-08-03] MEDS: IPRATROPIUM-ALBUTEROL 3 ML NEB INHALATION SCH ×3 (07:30→16:21)
[2018-08-03] MEDS: FORMOTEROL FUMARATE 20 MCG/2 ML NEBU INHALATION SCH (07:30)
[2018-08-03] MEDS: BUDESONIDE 1 MG/2 ML NEBU INHALATION SCH (07:30)
--- NOTE | 2018-08-03 07:36 | XR ---
EXAMINATION TYPE: XR chest 1V portable DATE OF EXAM: 08/03/2018 COMPARISON: 08/02/2018 HISTORY: Shortness of breath TECHNIQUE: Single frontal view of the chest is obtained. FINDINGS: Left-sided central line seen and there is a tracheostomy tube. Chronic rib deformity seen and there is hyperinflation suggestive. Masslike area of density in the left upper lobe stable. No ov ert failure. Subsegmental basilar atelectasis favored over infiltrate on the left. IMPRESSION: 1. Masslike area of density left upper lobe stable. 2. COPD. 3. Left basilar linear atelectasis.
[2018-08-03 08:06] LABS: Glucose,Whole Blood 124 mg/dL (75-99)
[2018-08-03] MEDS: OPIUM TINCTURE PO SCH ×2 (08:48→12:25)
[2018-08-03 08:49] LABS: Glucose,Whole Blood 103 mg/dL (75-99)
[2018-08-03] MEDS: DILTIAZEM ORAL 60 MG TAB PO SCH (09:46)
[2018-08-03] MEDS: PANTOPRAZOLE 40 MG/10 ML VIAL IVP SCH (09:47)
[2018-08-03] MEDS: NYSTATIN 100,000 UNIT/ML SUSP 500,000 UNIT/5 ML CUP PO SCH ×2 (09:47→12:11)
[2018-08-03] MEDS: predniSONE 20 MG TAB PO SCH (09:47)
[2018-08-03] MEDS: HEPARIN SODIUM,PORCINE 5,000 UNIT/ML 1 ML VIAL SQ SCH (09:47)
--- NOTE | 2018-08-03 10:34 | P.PN ---
Subjective Progress Note Date: 08/03/18 Principal diagnosis: Acute hypercapnic and hypoxic rest or a failure, secondary to COPD This is a 58-year-old white female patient who was transferred from [facility] on 07/24/2018 where she presented with acute on chronic hypercapnic and hypoxic restaurant failure secondary to acute exacerbation of chronic obstructive pulmonary disease she required intubation and ventilation. She has a history of severe end-stage chronic obstructive pulmonary disease with a baseline FEV1 of 36% of predicted. She follows with Dr. Mistry in the pulmonary office, and her maintenance inhalers include 2 doors a, breathing a lot, and albuterol in the outpatient setting. She is on home oxygen. 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 She is prednisone dependent, and has had multiple episodes of COPD exacerbation. Chest x-ray was completed at the the [facility] and there appeared to be a left-sided loculated pneumothorax, computed tomography scan was ordered, and revealed evidence of bullous emphysema. Patient was transferred to [facility] with a consultation to cardiothoracic surgery. This morning she remains intubated, on mechanical ventilation, her current vent settings are assist-control mode the rate of 16, Tylenol 400, FiO2 45% and PEEP of 5. Maintenance IV fluids include D5 half- normal saline at a rate of 40 ML per hour, Versed is 55 mg per hour, Diprivan is 40 mics per kilo, per minute, levofed is at 2 mics per minute. This morning his blood gases show pO2 of 82, pCO2 47, and pH of 7.54. Patient has been diuresed, she was on Lasix 20 mg 3 times daily, and this morning's labs show a component of prerenal azotemia, with a BUN of 33, creatinine 0.56. We will discontinue the Lasix for now. The VBC 16.4, hemoglobin is 12.2, platelet count is 173, INR is 1.1. Sodium is 140, potassium is 3.8, and patient is receiving potassium replacements. Magnesium is 1.9. She is sedated, on mechanical ventilation. She was on Nimbex drip at [facility], which had been discontinued prior to transfer. Lung sounds are clear to auscultation, no significant secretions from the ET tube. Patient is afebrile. Today's chest x-ray showed patchy left upper lobe density, hyperinflation. She is covered with azithromycin and ceftriaxone, she is getting IV Solu-Medrol , and she is on nebulized bronchodilators. On 07/26/2018 patient seen in follow-up the intensive care unit. She remains sedated, intubated, on mechanical ventilator. Patient was given a trial of sedation holiday yesterday, however she became very restless, tachypneic, she started opening her eyes, but in view of her agitation she was placed back on sedation. Ventilator settings are assist-control mode with a rate of 16, tidal vital 400, FiO2 45%, and PEEP of 5. This morning's blood gas was reviewed, pO2 is 82, pCO2 is 41, pH is 7.52. Maintenance IV fluids as D5 0.45 at a rate of 40 ML per hour, levo fed is off, Diprivan is at 50 mics per kilo per minute, Versed is at 4.5 mg/hr. tube feedings were started yesterday, with vital 1.2 at a rate of 35 with a goal of 35. They have been on hold since midnight, patient is scheduled for trach and PEG or bowel. Today's chest x-ray has been reviewed , andshowed no acute process. Stable chest. Afebrile, hemodynamically stable. We'll continue with current medical treatment. Today's labs showed WBC of 13.9, hemoglobin is 11.8, sodium is 142, potassium is 2.5, chloride is 120, BUN is 23, creatinine is 0.28, magnesium is 1.4, and calcium is 5.6. He's electrolytes are being corrected, patient is receiving IV potassium chloride, and potassium phosphate, follows magnesium replacements. Continue with nebulized bronchodilators. Lung sounds are essentially clear. On 08/01/2018 patient seen in follow-up in the intensive care unit. She is awake and alert, still has a profound generalized weakness, she is on 30% trach collar, seems to be fairly comfortable, no difficulty breathing, periodically requires suctioning, her has been small amount of blood-tinged sputum suctioned out of her tracheostomy. Otherwise she is maintaining stable oxygenation, pulse ox is 94-97%, on FiO2 of 30%, lung sounds are positive for a few rhonchi, over left base anteriorly. Patient is afebrile, hemodynamically stable. She has a PEG tube in place, and she is receiving tube feedings and she is tolerating them well. He is scheduled for swallow evaluation today. She continues on oral prednisone, nebulized bronchodilators, we stopped her antibiotics. No ongoing fever or chills, she is receiving GI and DVT prophylaxis, his chest x-ray has been reviewed, and showed bullous emphysema and stable left greater than the right upper lung opacities representing possible scarring. No acute changes noted. On 08/03/2018 patient seen in follow-up in the intensive care unit. She is awake and alert, seems to be in better spirits today. Still profoundly weak, he is able to raise her arms slightly, wiggle her toes, unable to close her hands all the way. He remains on trach collar at 30% FiO2. Hemodynamically stable, no fever or chills. It is labs have been reviewed, WBC is 12.4, hemoglobin is 10.9, electrolytes are within normal limits, BUN is 26, creatinine 0.43, patient is receiving tube feedings at a rate of 55 ML per hour , which is goal. Has been receiving immunoglobulin. She is on GI and DVT prophylaxis, maintenance IV fluid is D5 0.45 at a rate of 40 ML per hour. Yesterday we decreased the dose of prednisone to 20 mg daily. Patient remains stable. Today's chest x-ray has been reviewed, shows left basilar linear atelectasis. No acute findings. Objective - Vital Signs Vital signs: Vital Signs Temp 98.3 F 08/03/18 08:00 Pulse 96 08/03/18 10:00 Resp 17 08/03/18 10:00 BP 108/75 08/03/18 10:00 Pulse Ox 99 08/03/18 10:00 Intake & Output 08/02/18 08/03/18 08/03/18 18:59 06:59 18:59 Intake Total 2978.715 1822 290 Output Total 1475 1990 120 Balance -113.267 -571 170 Weight 51.4 kg 52.8 kg Intake: IV 473 559 80 0.9NS Pressure Bag 33 39 Dextrose 5%-0.45% NaCl 1, 440 520 80 000 ml @ 40 mls/hr IV . Q24H [facility] Rx#:[id number] Intake, IV Titration 173.733 100 Amount Immune Globulin (Human- 73.733 IgG) 20 gm In Empty Bag 1 bag @ Titrate IV .Q0M ONE Rx#:[id number] Magnesium Sulfate-D5w Pmx 100 1 gm In Dextrose/Water 1 100ml.bag @ 100 mls/hr IVPB Q1H [facility] Rx#: [id number] Magnesium Sulfate-D5w Pmx 100 1 gm In Dextrose/Water 1 100ml.bag @ 100 mls/hr IVPB Q1H [facility] Rx#: [id number] Tube Feeding 715 770 110 Other 90 Output: Urine 1475 1465 120 Stool 525 Other: Voiding Method Indwelling Catheter Indwelling Catheter ABP, PAP, CO, CI - Last Documented Arterial Blood Pressure 121/57 - Exam GENERAL EXAM: Alert, pleasant, 58-year-old white female, on 30% trach collar, in no acute distress. Patient is profoundly weak HEAD: Normocephalic/atraumatic. EYES: Normal reaction of pupils, equal size. Conjunctiva pink, sclera white. NOSE: Clear with pink turbinates. THROAT: No erythema or exudates. NECK: No masses, no JVD, no thyroid enlargement, no adenopathy. CHEST: No chest wall deformity. Symmetrical expansion. LUNGS: Equal air entry with rhonchi over left lower lobe CVS: Regular rate and rhythm, normal S1 and S2, no gallops, no murmurs, no rubs ABDOMEN: Soft, nontender. Patient has a right sided colostomy with liquid output. No hepatosplenomegaly, normal bowel sounds, no guarding or rigidity. Patient has a PEG tube in place, she starting tube feedings EXTREMITIES: No clubbing, no edema, no cyanosis, 2+ pulses and upper and lower extremities. MUSCULOSKELETAL: Muscle strength and tone profoundly weak, patient is able to raise arms slightly off the bed, able to wiggle toes SPINE: No scoliosis or deformity SKIN: No rashes CENTRAL NERVOUS SYSTEM: Awake and alert, severe generalized weakness. - Labs CBC & Chem 7: 08/03/18 05:18 08/03/18 05:18 Labs: Abnormal Lab Results - Last 24 Hours (Table) 08/02/18 08/02/18 08/03/18 Range/Units 11:47 16:34 00:01 WBC (3.8-10.6) k/uL RBC (3.80-5.40) m/uL Hgb (11.4-16.0) gm/dL Hct (34.0-46.0) % Plt Count (150-450) k/uL Neutrophils # (1.3-7.7) k/uL BUN (7-17) mg/dL Creatinine (0.52-1.04) mg/dL POC Glucose (mg/dL) 158 H 194 H 142 H (75-99) mg/dL 08/03/18 08/03/18 08/03/18 Range/Units 05:18 05:18 08:05 WBC 12.4 H (3.8-10.6) k/uL RBC 3.39 L (3.80-5.40) m/uL Hgb 10.9 L (11.4-16.0) gm/dL Hct 33.7 L (34.0-46.0) % Plt Count 126 L (150-450) k/uL Neutrophils # 10.0 H (1.3-7.7) k/uL BUN 26 H (7-17) mg/dL Creatinine 0.43 L (0.52-1.04) mg/dL POC Glucose (mg/dL) 124 H (75-99) mg/dL 08/03/18 Range/Units 08:47 WBC (3.8-10.6) k/uL RBC (3.80-5.40) m/uL Hgb (11.4-16.0) gm/dL Hct (34.0-46.0) % Plt Count (150-450) k/uL Neutrophils # (1.3-7.7) k/uL BUN (7-17) mg/dL Creatinine (0.52-1.04) mg/dL POC Glucose (mg/dL) 103 H (75-99) mg/dL Assessment and Plan Plan: Assessment: #1. Acute on chronic hypercapnic and hypoxic respiratory failure secondary to an acute exacerbation of chronic obstructive pulmonary disease requiring intubation and mechanical ventilation. CT scan field extensive bullous emphysema. Patient has chronic changes in the left upper lobe inflammatory opacity that is been followed for sometime in the outpatient setting. Patient is status post tracheostomy insertion, currently on 30% trach collar #2. Severe oxygen-dependent and steroid-dependent chronic obstructive pulmonary disease with a baseline FEV1 of 36% of predicted #3. Hypokalemia, hypomagnesemia, improved #5. Chronic tobacco dependence #6. Chronic left upper lobe inflammatory opacity followed on an outpatient basis #7. Crohn's disease with previous colectomy and diverting ostomy #8. Previous history of right pneumothorax #9. History of nephrolithiasis #10. Hyperlipidemia #11. Hypothyroidism #12. Poor overall functional capacity secondary to the above-mentioned multiple comorbidities #13. PEG tube insertion, and patient is currently tolerating tube feedings, is scheduled for a swallow evaluation sometime today. Plan: Patient remains stable, no acute events overnight, remains on FiO2 of 30%, via trach collar, she is tolerating her tube feedings, no fever or chills, vital signs are stable, patient is nonoliguric, remains profoundly weak, physical therapy is working with the patient, continue active and passive range of motion exercises. Today's chest x-ray has been reviewed by Dr. Mistry, shows left basilar atelectasis but no acute findings. Continue current dose prednisone, nebulized bronchodilators, GI and DVT prophylaxis. Patient is stable for transfer to facility once arrangements are complete. I performed a history & physical examination of the patient and discussed their management with my nurse practitioner, Carmella Jimenez. I reviewed the nurse practitioner's note and agree with the documented findings and plan of care. Lung sounds are clear. The findings and the impression was discussed with the patient. I attest to the documentation by the nurse practitioner. Time with Patient: Greater than 30
[2018-08-03 12:02] LABS: Glucose,Whole Blood 169 mg/dL (75-99)
[2018-08-03 12:12] VITALS: TEMP 98
[2018-08-03] MEDS: DEXTROSE 5%-0.45% NACL 1,000 ML IV SCH (14:49)
--- NOTE | 2018-08-03 14:57 | P.PN ---
Subjective Progress Note Date: 08/03/18 this is a 58-year-old pleasant female patient of Dr. Heber James. 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 Mistry treated with the dorsa Brio and albuterol in the outpatient setting. Also required home O2, she was [place] [facility] [place] 07/18/2018 secondary to COPD exacerbation. Patient required mechanical ventilation on admission, requiring Nimbex and propofol , was having difficulty in weaning off parameters, and currently is on Versed, which she has tolerated better. She also requires gentle diuresis, with IV Lasix, currently on a negative fluid balance. She is on empiric antibiotics in the form of Rocephin and Zithromax. They're planning on PEG and trach placement, however with the large bullae that was noted on routine x-rays yesterday, showing at least 25% of her left side, concern for pneumothorax, they [facility] to ICU transfer, uninterrupted mechanical ventilation during her transfers.patient is on levo fedSolu-Medrol 60 Lasix 20 mg every 8 hours. Patient has been off her Humira prior to admission. 07/25: Patient remains intubated and on mechanical ventilation with tidal volume 400, FiO2 40 and PEEP of 5. Patient is managed by Dr. Meza. Norepinephrine is currently on hold as well as sedation and Versed dose is being decreased. Potassium and magnesium have been replaced. Patient is on tube feedings tolerating at 35 mL per hour. Patient has been seen by cardiothoracic surgery with no plan for any surgical intervention regarding the bolus emphysema at this time. Repeat chest x-ray is stable, patchy left upper lobe density persist. Pleural effusion unchanged. Dr. Aguayo is on consult with plan for tracheostomy and PEG tube placement for tomorrow. Family updated at the bedside. 07/26: Patient remains in the intensive care unit intubated and on mechanical ventilation. Patient required levo fed last evening which has not been discontinued. She did have a period of low urine output during the night but this is improved. White count is down to 13.9. Potassium, magnesium and calcium are being replaced. Patient is scheduled for PEG tube and trach today with Dr. Aguayo. Family updated at the bedside. 07/27: Patient is status post trach and PEG tube. Tube feeding started this morning. She is off MRSA and propofol for spontaneous breathing trial today. Urine output has been running 50-80 mL per hour. The patient required small amount of Versed after being given Dilaudid 2 mg. Pain medication changed to Dilaudid 0.5 mg every 3 hours as needed and Polk elixir 15 ML's every 6 hours as needed 07/28: Patient is status post trach and PEG tube. Patient was on a sedation holiday yesterday experience agitation during that time. Patient continues to have sedation at this time. Unable to follow commands with right hand and bilateral lower extremities, has minimal movement of hand. Able to follow commands with left hand and arm. Urine output continues to be running 50/80 ML per hour. Sedation holiday to continue today. Patient continues to have Dilaudid for pain management. Will continue to slowly advance tube feeds and may remove tracheostomy ties today. 07/29: The patient had a tracheostomy and PEG tube placed on 07/26/2018. The patient's FEV1 is 36% of predicted. Patient is currently on ativan 0.5mg q 6 hours and CPAP trial. Arterial blood gases show a PaO2 of 78 a PaCO2 of 39 and a pH 7.47. This is consistent with a mild metabolic alkalosis. Microbiologic studies are pending or negative. White count is 21.9, hemoglobin 11.4, hematocrit 35.5 and platelet count is normal. Electrolytes are normal. BUS 25 and creatinine is 0.47. Urine output continues to be running 50/80 ML per hour. Patient is able to nod appropriately to questions. Patient is unable to follow commands to extremities. Limited monitor shows sinus tachycardia in the 110's. 07/30: Patient remains in the intensive care unit. She is on a trach collar and tolerating tube feedings. Neurology consult is pending. She is currently on Solu-Medrol 40 mg every 6 hours and changed to oral prednisone for tomorrow. She is complaining of stomach pain. Patient is able to communicate. Opium dose verified and to be started. Discussed with continuous pillowcase cutter regarding Celexa especially Hospital transfer of this week. 07/31: Patient has been seen by neurology and started on IVIG. Patient's pain is not controlled and Dilaudid 2 mg will be discontinued and placed on 1 mg and Polk increased to every 4 hours. Patient has been [facility]. Social work is making arrangements and possible transfer today pending insurance authorization. 08/01: Consult for GI was added yesterday as patient was having ongoing abdominal pain and on opium and patient is well-known to Dr. Ram. Recommendations to continue opium tincture, prednisone therapy and return to the office in 4-6 weeks for reevaluation. Abdominal x-ray shows enterostomy tube is present. Overall nonobstructive bowel gas pattern. No free air seen. Modified barium swallow was done this morning that showed aspiration with thin liquids. She remains in the intensive care unit on 30% trach collar. She is requiring suctioning of blood-tinged sputum. She has been hemodynamically stable. Her PEG tube is being used and she is tolerating feedings. She is waiting for transfer to [facility] once arrangements completed. 08/02: Patient is having stool from ostomy. Her pain is better controlled today. She is on tube feedings as well and tolerating. Vital signs have been stable. Patient has been afebrile. Patient remains on O2 by trach collar. No new complaints or concerns. Patient does continue to have significant extremity and generalized weakness. Antic[facility]ate [facility] today once insurance authorization is completed. 08/03: Patient is scheduled to leave today for [facility] at 3 pm. Objective - Vital Signs Vital signs: Vital Signs Temp 98.3 F 08/03/18 08:00 Pulse 96 08/03/18 10:00 Resp 17 08/03/18 10:00 BP 108/75 08/03/18 10:00 Pulse Ox 99 08/03/18 10:00 Intake & Output 08/02/18 08/03/18 08/03/18 18:59 06:59 18:59 Intake Total 4463.173 3719 290 Output Total 1475 1990 120 Balance -113.267 -571 170 Weight 51.4 kg 52.8 kg Intake: IV 473 559 80 0.9NS Pressure Bag 33 39 Dextrose 5%-0.45% NaCl 1, 440 520 80 000 ml @ 40 mls/hr IV . Q24H [facility] Rx#:[id number] Intake, IV Titration 173.733 100 Amount Immune Globulin (Human- 73.733 IgG) 20 gm In Empty Bag 1 bag @ Titrate IV .Q0M [facility] Rx#:[id number] Magnesium Sulfate-D5w Pmx 100 1 gm In Dextrose/Water 1 100ml.bag @ 100 mls/hr IVPB Q1H [facility] Rx#: [id number] Magnesium Sulfate-D5w Pmx 100 1 gm In Dextrose/Water 1 100ml.bag @ 100 mls/hr IVPB Q1H [facility] Rx#: [id number] Tube Feeding 715 770 110 Other 90 Output: Urine 1475 1465 120 Stool 525 Other: Voiding Method Indwelling Catheter Indwelling Catheter ABP, PAP, CO, CI - Last Documented Arterial Blood Pressure 121/57 - Exam General appearance: Present: average body habitus, no acute distress - EENT Eyes: Present: anicteric sclerae, EOMI, PERRLA ENT: Present: NA/AT, trach collar with blood -tinged sputum - Neck Neck: Present: normal ROM. Absent: lymphadenopathy, rigidity, stridor - Respiratory Respiratory: bilateral: diminished, rales, rhonchi, wheezing - Cardiovascular Heart rate: 112 Rhythm: regular Heart sounds: normal: S1, S2 Abnormal Heart Sounds: Absent: systolic murmur, diastolic murmur, rub, S3 Gallop , S4 Gallop, click - Gastrointestinal General gastrointestinal: Present: normal bowel sounds, soft. Absent: tenderness - Integumentary Integumentary: Present: decreased turgor. Absent: rash - Musculoskeletal Musculoskeletal Comment(s): Patient able to nod appropriately to questions asked. Patient attempts to follow extremity commands with generalized weakness to upper and lower extremities. - Labs CBC & Chem 7: 08/03/18 05:18 08/03/18 05:18 Labs: Abnormal Lab Results - Last 24 Hours (Table) 08/02/18 08/02/18 08/03/18 Range/Units 11:47 16:34 00:01 WBC (3.8-10.6) k/uL RBC (3.80-5.40) m/uL Hgb (11.4-16.0) gm/dL Hct (34.0-46.0) % Plt Count (150-450) k/uL Neutrophils # (1.3-7.7) k/uL BUN (7-17) mg/dL Creatinine (0.52-1.04) mg/dL POC Glucose (mg/dL) 158 H 194 H 142 H (75-99) mg/dL 08/03/18 08/03/18 08/03/18 Range/Units 05:18 05:18 08:05 WBC 12.4 H (3.8-10.6) k/uL RBC 3.39 L (3.80-5.40) m/uL Hgb 10.9 L (11.4-16.0) gm/dL Hct 33.7 L (34.0-46.0) % Plt Count 126 L (150-450) k/uL Neutrophils # 10.0 H (1.3-7.7) k/uL BUN 26 H (7-17) mg/dL Creatinine 0.43 L (0.52-1.04) mg/dL POC Glucose (mg/dL) 124 H (75-99) mg/dL 08/03/18 Range/Units 08:47 WBC (3.8-10.6) k/uL RBC (3.80-5.40) m/uL Hgb (11.4-16.0) gm/dL Hct (34.0-46.0) % Plt Count (150-450) k/uL Neutrophils # (1.3-7.7) k/uL BUN (7-17) mg/dL Creatinine (0.52-1.04) mg/dL POC Glucose (mg/dL) 103 H (75-99) mg/dL Assessment and Plan Plan: 1. Severe COPD exacerbation with acute on chronic hypercapnic and hypoxemic respiratory failure requiring intubation and mechanical ventilation, managed by Dr. Meza. COPD exacerbation with CT evidence of bullous emphysema left side. Consult with cardiothoracic surgery appreciated. Continue IV steroids, mechanical ventilation, levo off, nebulized albuterol Atrovent. PEG tube and trach with Dr. Aguayo. 2. Sepsis with septic shock most likely secondary to pneumonia, currently off Levophed, continue on Rocephin and Zithromax. Pain medications adjusted 3. Chronic diastolic heart failure. IV Lasix is discontinued, monitor urine output, I's and O's. 4. Sinus tachycardia. Patient was on metoprolol 25 mg 3 times daily at [facility] [place], currently on hold due to hypotension. 5. History of Crohn's, has ileostomy on the right side, patient currently off Humira can use Lomotil when necessary 6. Generalized anxiety disorder, currently sedated, was on BuSpar prior to admission 7. Fibromyalgia with neuropathy, was on Polk 8. Severe protein calorie malnutrition requiring tube feedings with albumin of 2.8. PEG tube feedings started. MBS reveals aspiration. 9. Altered mental status changes, metabolic encephalopathy, secondary to sepsis or sedation, but improved from the weekend. Will hold off further testing until reassessment tomorrow with continued decrease of sedation medications. Neurology on consult. 10. Critical illness myopathy, will obtain a CK-MB, consult neurology. IVIG infusions. DVT prophylaxis Heparin GI prophylaxis Protonix Discharge plan: [facility] Impression and plan of care have been directed as dictated by the signing physician. Gaby Rothman nurse practitioner acting as scribe for signing physician.
[2018-08-03 15:22] VITALS: BP 94/63; PULSE 84; RESP 11
[2018-08-03] MEDS ORDERED: IMMUNE GLOBULIN (GAMMAGARD) 20 GM in EMPTY BAG 1 BAG IV ONE (18:00)
== END 2018-08-03 16:34 | DRG 4 ==
LOC: 6ICU 12:28
PROVIDERS: ADMIT Family Medicine; ATTEND Family Medicine
PROC: 5A1955Z Respiratory Ventilation, Greater than 96 Consecutive Hours (ICD-10-PCS; 2018-07-24)
PROC: 0D9670Z Drainage of Stomach with Drainage Device, Via Natural or Artificial Opening (ICD-10-PCS; 2018-07-24)
PROC: 3E0G76Z Introduction of Nutritional Substance into Upper GI, Via Natural or Artificial Opening (ICD-10-PCS; 2018-07-25)
PROC: 0DH63UZ Insertion of Feeding Device into Stomach, Percutaneous Approach (ICD-10-PCS; 2018-07-26)
PROC: 0DJ08ZZ Inspection of Upper Intestinal Tract, Via Natural or Artificial Opening Endoscopic (ICD-10-PCS; 2018-07-26)
PROC: 0B110F4 Bypass Trachea to Cutaneous with Tracheostomy Device, Open Approach (ICD-10-PCS; principal; 2018-07-26 13:00)
PROC: 3E043WK Introduction of Immunostimulator into Central Vein, Percutaneous (ICD-10-PCS; 2018-07-30)
DX: A41.9 Sepsis, unspecified organism (principal); J96.21 Acute and chronic respiratory failure with hypoxia; J96.22 Acute and chronic respiratory failure with hypercapnia; R65.21 Severe sepsis with septic shock; E43 Unspecified severe protein-calorie malnutrition; G93.41 Metabolic encephalopathy; J18.9 Pneumonia, unspecified organism; Z99.11 Dependence on respirator [ventilator] status; K50.00 Crohn's disease of small intestine without complications; G72.81 Critical illness myopathy; G61.81 Chronic inflammatory demyelinating polyneuritis; E87.3 Alkalosis; I50.32 Chronic diastolic (congestive) heart failure; J98.11 Atelectasis; I11.0 Hypertensive heart disease with heart failure; J43.9 Emphysema, unspecified; E83.42 Hypomagnesemia; E03.9 Hypothyroidism, unspecified; E87.6 Hypokalemia; M79.7 Fibromyalgia; F41.1 Generalized anxiety disorder; K21.9 Gastro-esophageal reflux disease without esophagitis; E78.5 Hyperlipidemia, unspecified; M19.91 Primary osteoarthritis, unspecified site; M81.0 Age-related osteoporosis without current pathological fracture; J30.2 Other seasonal allergic rhinitis; F17.201 Nicotine dependence, unspecified, in remission; Z99.81 Dependence on supplemental oxygen; Z79.4 Long term (current) use of insulin; Z79.51 Long term (current) use of inhaled steroids; Z79.899 Other long term (current) drug therapy; Z93.2 Ileostomy status; Z87.442 Personal history of urinary calculi; Z90.49 Acquired absence of other specified parts of digestive tract; Z90.710 Acquired absence of both cervix and uterus; Z90.79 Acquired absence of other genital organ(s); Z87.19 Personal history of other diseases of the digestive system; Z90.721 Acquired absence of ovaries, unilateral; Z87.01 Personal history of pneumonia (recurrent); Z88.2 Allergy status to sulfonamides; Z88.8 Allergy status to other drugs, medicaments and biological substances; Z88.6 Allergy status to analgesic agent; Z91.041 Radiographic dye allergy status; Z82.5 Family history of asthma and other chronic lower respiratory diseases; Z80.8 Family history of malignant neoplasm of other organs or systems; Z82.49 Family history of ischemic heart disease and other diseases of the circulatory system; Z82.61 Family history of arthritis; Z83.3 Family history of diabetes mellitus; Z82.3 Family history of stroke; Z81.8 Family history of other mental and behavioral disorders
CPT/HCPCS: 43246; 71045; 74019; 74230; 80048; 82040; 82330; 82553; 82805; 83735; 84100; 84132; 85025; 85610; 94002; 94003; 94640

== ENCOUNTER 2018-09-27 12:47 | Inpatient (IN) | payer BC ==
[2018-09-27] MEDS ORDERED: ONDANSETRON 4 MG/2 ML VIAL IVP STA (13:34)
[2018-09-27] MEDS ORDERED: MORPHINE SULFATE 2 MG/ML SYRINGE IVP STA ×2 (13:34→16:24)
[2018-09-27] MEDS ORDERED: SODIUM CHLORIDE 0.9% 500 ML 500 ML IV STA (13:34)
--- NOTE | 2018-09-27 13:38 | ED ---
General Adult HPI - General Chief complaint: Nausea/Vomiting/Diarrhea Stated complaint: Nausea vomiting Time Seen by Provider: 09/27/18 13:00 Source: patient, RN notes reviewed Mode of arrival: EMS Limitations: no limitations - History of Present Illness Initial comments: This is a 58-year-old female who has a past medical history significant for Crohn's disease and COPD. Patient states she was just sent home from medical [place] on Monday area patient comes in today complaining that starting last night she started having diffuse abdominal pain and vomiting. Patient states she feels extremely weak. Patient denies any fever chills. Patient denies any chest pain difficulty breathing or shortness of breath. Patient states she has an ileostomy. Patient denies any dysuria hematuria urinary frequency. Patient denies any back pain. Patient denies any headache patient denies numbness weakness. Patient denies any lightheadedness dizziness or near syncopal episode. - Related Data Home Medications Medication Instructions Recorded Confirmed Adalimumab [Humira Pen] 40 mg SQ TU 06/21/14 09/09/18 busPIRone HCl [Buspar] 10 mg PO BID 05/09/17 09/09/18 Latanoprost Ophth [Xalatan 0.005%] 1 drop BOTH EYES HS@199905/21/17 09/09/18 Gabapentin [Neurontin] 300 mg PO TID@0500,1300,209912/08/17 09/09/18 Cyanocobalamin [Vitamin B-12 1,000 mcg SQ QMONTH 07/24/18 09/09/18 Injection] Dicyclomine [Bentyl] 10 mg PO TID@0800,1300,199907/24/18 09/09/18 Magnesium Oxide [Mag-Ox] 250 mg PO HS 07/24/18 09/09/18 Ondansetron [Zofran] 4 mg PO Q6HR PRN 07/24/18 09/09/18 Acetylcysteine Solution 20% 3 ml INHALATION RT-TID PRN 09/09/18 09/09/18 Albuterol Nebulized [Ventolin 2.5 mg INHALATION RT-Q6H PRN 09/09/18 09/09/18 Nebulized] Benzocaine/Menthol Lozeng [Cepacol 1 lozenge MUCOUS MEM 09/09/18 09/09/18 lozenge] TID@0800,1300,2000 Cholecalciferol [Vitamin D3] 1,000 unit PO HS 09/09/18 09/09/18 Digoxin [Digitek] 125 mcg PO DAILY 09/09/18 09/09/18 Heparin Sodium,Porcine [Heparin 5,000 unit SQ Q12H 09/09/18 09/09/18 Sodium] Ipratropium-Albuterol Nebulize 3 ml INHALATION RT-Q8H 09/09/18 09/09/18 [Duoneb 0.5 mg-3 mg/3 ml Soln] Loperamide [Imodium] 2 mg PO Q6H PRN 09/09/18 09/09/18 Meclizine [Antivert] 25 mg PO Q12HR PRN 09/09/18 09/09/18 Melatonin 3 mg PO HS PRN 09/09/18 09/09/18 Metoprolol Tartrate [Lopressor] 25 mg PO Q8H 09/09/18 09/09/18 guaiFENesin 400 mg PO BID 09/09/18 09/09/18 Previous Rx's Medication Instructions Recorded ALPRAZolam [Xanax] 0.5 mg PO Q8H PRN #9 tab 09/11/18 HYDROcodone/APAP 10-325MG [Larose 1 tab PO Q6HR PRN #12 tab 09/11/18 10-325] Non-Formulary Drug [Non Formulary 1 each PO ONCE #10 misc 09/11/18 Drug] Allergies Allergy/AdvReac Type Severity Reaction Status Date / Time Iodinated Contrast- Oral and Allergy Anaphylaxis Verified 09/09/18 17:01 IV Dye pregabalin [From Lyrica] Allergy Unknown Verified 09/09/18 17:01 rofecoxib [From Vioxx] Allergy Unknown Verified 09/09/18 17:01 Sulfa (Sulfonamide Allergy Rash/Hives Verified 09/09/18 17:01 Antibiotics) aspirin AdvReac Internal Verified 09/09/18 17:01 Bleeding timolol [Timolol] AdvReac Nausea & Verified 09/09/18 17:01 Vomiting Review of Systems ROS Statement: Those systems with pertinent positive or pertinent negative responses have been documented in the HPI. ROS Other: All systems not noted in ROS Statement are negative. Past Medical History Past Medical History: COPD, Fibromyalgia, GERD/Reflux, GI Bleed, Hyperlipidemia , Hypertension, Osteoarthritis (OA), Pneumonia, Syncope Additional Past Medical History / Comment(s): COPD, crohn's, bowel obstructions , lower GI bleeds, hiatal hernia, osteoporosis, arthritis multiple joints, seasonal allergies, right-sided pneumothorax x2; ventilator 07/24/18 - transfer from [facility] r/t bollas History of Any Multi-Drug Resistant Organisms: None Reported Past Surgical History: Breast Surgery, Cholecystectomy, Hernia Repair, Hysterectomy, Orthopedic Surgery Additional Past Surgical History / Comment(s): Multiple bowel surgeries including total colectomy/ileostomy, ileostomy moved/repaired, R tube and R ovary removed due tectopic , total hysterectomy, leep procedure, laparoscopy for endometriosis, L breast lumpectomy-benign, r breast core bx- benign, EGD/colonoscopies. Right-sided Thora-vent placement May 09 and May 19. Eye surgery bilateral,arthroscopic knee surgery on he right due to ACL and Maniscal tear. Past Anesthesia/Blood Transfusion Reactions: No Reported Reaction Past Psychological History: Anxiety Smoking Status: Former smoker Past Alcohol Use History: Unable to Obtain Past Drug Use History: Unable to Obtain - Past Family History Mother Family Medical History: Cancer, COPD, Hypertension Additional Family Medical History / Comment(s): Mother at age 83 from COPD and osteoarthritis and had skin cancer. Father Family Medical History: Cancer, CVA/TIA, Dementia, Diabetes Mellitus Additional Family Medical History / Comment(s): Father is 90yrs old. Brother(s) Family Medical History: Cancer Additional Family Medical History / Comment(s): Patient had 5 brothers and one of them from melanoma. Sister(s) History Unknown: Yes Family Medical History: No Reported History Additional Family Medical History / Comment(s): Patient has one sister. Patient has no kids. General Exam - General Exam Comments Initial Comments: GENERAL: Patient is well-developed and well-nourished. Patient is nontoxic and well- hydrated and is in mild distress. ENT: Neck is soft and supple. No significant lymphadenopathy is noted. Oropharynx is clear. Moist mucous membranes. Neck has full range of motion without eliciting any pain. EYES: The sclera were anicteric and conjunctiva were pink and moist. Extraocular movements were intact and pupils were equal round and reactive to light. Eyelids were unremarkable. PULMONARY: Unlabored respirations. Good breath sounds bilaterally. No audible rales rhonchi or wheezing was noted. CARDIOVASCULAR: There is a regular rate and rhythm without any murmurs gallops or rubs. ABDOMEN: Abdomen is diffusely tender and she does have some guarding on the right side around the ileostomy SKIN: Skin is clear with no lesions or rashes and otherwise unremarkable. NEUROLOGIC: Patient is alert and oriented x3. Cranial nerves II through XII are grossly intact. Motor and sensory are also intact. Normal speech, volume and content. Symmetrical smile. MUSCULOSKELETAL: Normal extremities with adequate strength and full range of motion. No lower extremity swelling or edema. No calf tenderness. LYMPHATICS: No significant lymphadenopathy is noted PSYCHIATRIC: Normal psychiatric evaluation. Limitations: no limitations Course Vital Signs 09/27/18 09/27/18 09/27/18 13:17 16:37 17:32 Temperature 98.6 F Pulse Rate 110 H 98 Respiratory 18 18 Rate Blood Pressure 132/76 116/41 107/54 O2 Sat by Pulse 99 98 97 Oximetry Medical Decision Making - Medical Decision Making CAT scan of the abdomen and pelvis shows probable ileus but there is some decompressed small bowel but no transition point is seen. Patient continues to have abdominal pain and continue to be nauseated. I spoke with Dr. Tommy Sanders agreed to admit the patient I admitted the patient I wrote admitting orders - Lab Data Result diagrams: 09/27/18 13:50 09/27/18 13:50 Lab Results 09/27/18 09/27/18 Range/Units 13:50 13:50 WBC 11.1 H (3.8-10.6) k/uL RBC 4.20 (3.80-5.40) m/uL Hgb 12.4 (11.4-16.0) gm/dL Hct 37.2 (34.0-46.0) % MCV 88.5 (80.0-100.0) fL MCH 29.5 (25.0-35.0) pg MCHC 33.4 (31.0-37.0) g/dL RDW 14.3 (11.5-15.5) % Plt Count 310 (150-450) k/uL Neutrophils % 76 % Lymphocytes % 17 % Monocytes % 5 % Eosinophils % 1 % Basophils % 0 % Neutrophils # 8.4 H (1.3-7.7) k/uL Lymphocytes # 1.9 (1.0-4.8) k/uL Monocytes # 0.5 (0-1.0) k/uL Eosinophils # 0.1 (0-0.7) k/uL Basophils # 0.0 (0-0.2) k/uL ESR 39 H (0-20) mm/hr Sodium 143 (137-145) mmol/L Potassium 4.2 (3.5-5.1) mmol/L Chloride 98 (98-107) mmol/L Carbon Dioxide 32 H (22-30) mmol/L Anion Gap 13 mmol/L BUN 18 H (7-17) mg/dL Creatinine 0.78 (0.52-1.04) mg/dL Est GFR (CKD-EPI)AfAm >90 (>60 ml/min/1.73 sqM) Est GFR (CKD-EPI)NonAf 85 (>60 ml/min/1.73 sqM) Glucose 98 (74-99) mg/dL Calcium 11.5 H (8.4-10.2) mg/dL Total Bilirubin 0.6 (0.2-1.3) mg/dL AST 27 (14-36) U/L ALT 26 (9-52) U/L Alkaline Phosphatase 72 (38-126) U/L C-Reactive Protein <5.0 (<10.0) mg/L Total Protein 7.3 (6.3-8.2) g/dL Albumin 4.2 (3.5-5.0) g/dL Amylase <30 L (30-110) U/L Lipase 105 (23-300) U/L Disposition Clinical Impression: Ileus, Acute vomiting, Abdominal pain Disposition: ADMITTED IP TO THIS HOSP Referrals: Heber James MD [Primary Care Provider] - 1-2 days Time of Disposition: 18:19
[2018-09-27 14:15] LABS: Basophils % (A) 0 %; Eosinophils # (A) 0.1 k/uL (0-0.7); Eosinophils % (A) 1 %; HCT 37.2 % (34.0-46.0); HGB 12.4 gm/dL (11.4-16.0); Lymphocytes # (A) 1.9 k/uL (1.0-4.8); Lymphocytes % (A) 17 %; MCH 29.5 pg (25.0-35.0); MCHC 33.4 g/dL (31.0-37.0); MCV 88.5 fL (80.0-100.0); Mean Platelet Volume 7.5; Monocytes # (A) 0.5 k/uL (0-1.0); Monocytes % (A) 5 %; Neutrophils # (A) 8.4 k/uL (1.3-7.7); Neutrophils % (A) 76 %; Platelet Count 310 k/uL (150-450); RDW 14.3 % (11.5-15.5); WBC 11.1 k/uL (3.8-10.6)
[2018-09-27 14:25] LABS: ALT 26 U/L (9-52); AST 27 U/L (14-36); Albumin 4.2 g/dL (3.5-5.0); Alkaline Phosphatase 72 U/L (38-126); Amylase <30 U/L (30-110); Anion Gap 13 mmol/L; Blood Urea Nitrogen 18 mg/dL (7-17); Calcium 11.5 mg/dL (8.4-10.2); Carbon Dioxide 32 mmol/L (22-30); Chloride 98 mmol/L (98-107); Glucose 98 mg/dL (74-99); Lipase 105 U/L (23-300); Potassium 4.2 mmol/L (3.5-5.1); Sodium 143 mmol/L (137-145); Total Bilirubin 0.6 mg/dL (0.2-1.3); Total Protein 7.3 g/dL (6.3-8.2)
[2018-09-27 14:43] LABS: C Reactive Protein <5.0 mg/L (<10.0)
[2018-09-27 14:56] LABS: Erythrocyte Sedimentation Rate 39 mm/hr (0-20)
--- NOTE | 2018-09-27 16:32 | CT ---
EXAMINATION TYPE: CT abdomen pelvis wo con DATE OF EXAM: 09/27/2018 COMPARISON: 09/09/2018 HISTORY: Nausea, vomiting and abdominal pain. CT DLP: 296.4 mGycm Automated exposure control for dose reduction was used. TECHNIQUE: Helical acquisition of images was performed from the lung bases through the pelvis. FINDINGS: LUNG BASES: Extensive bullous emphysematous changes are seen at the lung bases. There is improvement in the previously seen patchy consolidation of the bilateral lung bases. LIVER/GB: The liver is elongated extending to the iliac crest. The liver is of unremarkable attenuati on. Gallbladder surgically absent. PANCREAS: Unremarkable unenhanced morphology without ductal dilatation. SPLEEN: No significant abnormality is seen. ADRENALS: No nodularity or thickening. KIDNEYS: Very punctate 1 to 2 mm left midpole calculus on image 24. No obstructing calculi or hydrone phrosis of either kidney FREE AIR: No free air is visualized URINARY BLADDER: No significant abnormality is seen. OSSEOUS STRUCTURES: Mild degenerative disc disease. BOWEL: There are multiple mildly prominent loops of small bowel in the left lower quadrant demonstrat ing air-fluid levels measuring up to 3.6 cm on coronal image 56. The distal small bowel loops are dec ompressed although no transition point is identified. Right-sided ileostomy is seen as there appears to be a total colectomy. Surgical clips are seen in the presacral space. OTHER: Numerous foci within the left mid abdominal subcutaneous soft tissues may relate to subcutaneo us injection sites and contusions. No gross evidence of adenopathy. IMPRESSION: MILDLY DILATED LOOPS OF SMALL BOWEL WITH AIR-FLUID LEVELS FAVOR ILEUS. ALTHOUGH THERE ARE DECOMPRESSE D DISTAL SMALL BOWEL LOOPS NO TRANSITION POINT IS SEEN AND AIR IS SEEN WITHIN THE ILEOSTOMY. PROGRESS ABDOMINAL RADIOGRAPHS COULD BE PERFORMED IF THERE IS PERSISTENT PAIN.
[2018-09-27] MEDS ORDERED: SODIUM CHLORIDE 0.9% 1,000 ML IV ONE (18:20)
[2018-09-27] MEDS: MORPHINE SULFATE 2 MG/ML SYRINGE IVP PRN (20:54)
[2018-09-27] MEDS: IPRATROPIUM-ALBUTEROL 3 ML NEB INHALATION SCH (23:33)
[2018-09-27] MEDS: MELATONIN 5 MG TABLET PO SCH (23:42)
[2018-09-27] MEDS: GABAPENTIN 300 MG CAP PO SCH (23:42)
[2018-09-27] MEDS: METOPROLOL TARTRATE 25 MG TAB PO SCH (23:43)
[2018-09-28] MEDS: MORPHINE SULFATE 2 MG/ML SYRINGE IVP PRN ×6 (01:04→21:35)
[2018-09-28] MEDS: IPRATROPIUM-ALBUTEROL 3 ML NEB INHALATION SCH ×3 (07:12→22:59)
[2018-09-28] MEDS: BUDESONIDE 1 MG/2 ML NEBU INHALATION SCH ×2 (07:12→21:24)
[2018-09-28] MEDS: busPIRone HCl 10 MG TAB PO SCH ×2 (08:04→21:37)
[2018-09-28] MEDS: GABAPENTIN 300 MG CAP PO SCH ×3 (08:04→21:37)
[2018-09-28] MEDS: POTASSIUM CHLORIDE ER 20 MEQ TAB.ER PO SCH (08:04)
[2018-09-28] MEDS: DICYCLOMINE 10 MG CAP PO SCH ×3 (08:04→21:37)
[2018-09-28] MEDS: METOPROLOL TARTRATE 25 MG TAB PO SCH ×3 (08:04→21:37)
[2018-09-28] MEDS: ONDANSETRON 4 MG/2 ML VIAL IVP PRN ×2 (08:05→13:32)
[2018-09-28] MEDS: DIGOXIN 125 MCG TAB PO SCH (08:05)
[2018-09-28] MEDS: FUROSEMIDE 40 MG TAB PO SCH (08:05)
[2018-09-28 11:54] LABS: Appearance,Urine Clear (Clear); Bilirubin,Urine Negative (Negative); Blood,Urine Negative (Negative); Color,Urine Colorless; Glucose,Urine (UA) Negative (Negative); Ketones,Urine Negative (Negative); Leukocyte Esterase,Urine Negative (Negative); Nitrite,Urine Negative (Negative); PH, Urine 6.5 (5.0-8.0); Protein,Urine Negative (Negative); Specific Gravity,Urine 1.004 (1.001-1.035); Urobilinogen,Urine <2.0 mg/dL (<2.0)
[2018-09-28] MEDS ORDERED: OPIUM TINCTURE PO PRN (11:54)
[2018-09-28] MEDS ORDERED: NICOTINE POLACRILEX 2 MG GUM BUCCAL PRN (11:54)
[2018-09-28 13:10] VITALS: BMI 19.0
--- NOTE | 2018-09-28 13:26 | P.HPIM ---
History of Present Illness H&P Date: 09/28/18 Chief Complaint: Vomiting, abdominal pain This is a 58-year-old female patient of Dr. 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 Patient was admitted in June to [facility] for COPD exacerbation requiring ventilation on admission and planning to have trach and PEG but noticed bullous disease in the left side and because of pneumothorax patient was transferred to [facility] at that time and evaluated by thoracic surgery. 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 She was recently hospitalized earlier this month for acute kidney injury, UTI and was then returned to [facility] under the care of Dr. Merchant. Patient states she was discharged from [facility] on Monday and subsequently developed abdominal cramping and diarrhea. That had been going on for 2 days and all of a sudden she states adequate and she had no bowel movements out of her ileostomy. She states her whole body hurts. The cramps go across the lower abdomen and she has had these for a long period time secondary to Crohn' s. She states she had 1 emesis with blood and she also coughed up some blood. Patient denies any fever or chills no chest pain no shortness of breath. No urinary symptoms no back pain no headache. No lightheadedness, dizziness or syncopal episodes. She presented to [facility] emergency center for evaluation. CAT scan of the abdomen and pelvis showed mildly dilated loops of small bowel and air-fluid levels favor ileus. There are decompressed distal small bowel loops, no transition point seen, air within the ileostomy. White count 11.1, creatinine 0.78, calcium 11.5 liver function tests are within normal limits as well as lipase is normal. Patient was started on morphine for pain, Zofran for nausea, made nothing by mouth, IV fluids and admitted to the [facility] floor. Consult with Dr. Dede iverson. Patient continues to have lower extremity weakness and uses a walker secondary to critical illness myopathy. She states that she is staying with her sisters until she is independent. She does have home O2 at 3 L nasal cannula. will bring and opium tincture from home tonight after work. Review of Systems All systems: negative Constitutional: Reports weakness, Reports weight loss, Denies chills, Denies fatigue, Denies fever Eyes: denies blurred vision, denies pain Ears, nose, mouth and throat: Denies dysphagia, Denies headache, Denies sore throat, Denies vertigo Cardiovascular: Denies chest pain, Denies edema, Denies orthopnea, Denies shortness of breath, Denies syncope Respiratory: Denies cough Gastrointestinal: Reports abdominal pain, Reports bloating, Reports constipation , Reports diarrhea, Reports loss of appetite, Reports melena, Denies nausea, Denies vomiting Genitourinary: Denies dysuria, Denies hematuria Musculoskeletal: Denies myalgias Integumentary: Denies pruritus, Denies rash Neurological: Denies numbness, Denies weakness Psychiatric: Denies anxiety, Denies depression Endocrine: Denies fatigue, Denies weight change Past Medical History Past Medical History: COPD, Fibromyalgia, GERD/Reflux, GI Bleed, Hyperlipidemia , Hypertension, Osteoarthritis (OA), Pneumonia, Syncope Additional Past Medical History / Comment(s): COPD, crohn's, bowel obstructions , lower GI bleeds, hiatal hernia, osteoporosis, arthritis multiple joints, seasonal allergies, right-sided pneumothorax x2; ventilator 07/24/18 - transfer from [facility] r/t [place] History of Any Multi-Drug Resistant Organisms: None Reported Past Surgical History: Breast Surgery, Cholecystectomy, Hernia Repair, Hysterectomy, Orthopedic Surgery Additional Past Surgical History / Comment(s): Multiple bowel surgeries including total colectomy/ileostomy, ileostomy moved/repaired, R tube and R ovary removed due tectopic , total hysterectomy, leep procedure, laparoscopy for endometriosis, L breast lumpectomy-benign, r breast core bx- benign, EGD/colonoscopies. Right-sided Thora-vent placement May 09 and May 19. Eye surgery bilateral,arthroscopic knee surgery on he right due to ACL and Maniscal tear. Past Anesthesia/Blood Transfusion Reactions: No Reported Reaction Past Psychological History: Anxiety Additional Psychological History / Comment(s): Pt currently at [facility] for rehab but normally stays with her 90 yr old father who has dementia. Her spouse is staying at their home to care for the dogs. 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 Patients brother has been caring for father whilst she has been in rehab Smoking Status: Former smoker Past Alcohol Use History: Unable to Obtain Additional Past Alcohol Use History / Comment(s): Patient is to smoke 1 pack per day since she was 17 and smoked for 30 years and quit in January 2018. Past Drug Use History: Unable to Obtain - Past Family History Mother Family Medical History: Cancer, COPD, Hypertension Additional Family Medical History / Comment(s): Mother at age 83 from COPD and osteoarthritis and had skin cancer. Father Family Medical History: Cancer, CVA/TIA, Dementia, Diabetes Mellitus Additional Family Medical History / Comment(s): Father is 90yrs old. Brother(s) Family Medical History: Cancer Additional Family Medical History / Comment(s): Patient had 5 brothers and one of them from melanoma. Sister(s) History Unknown: Yes Family Medical History: No Reported History Additional Family Medical History / Comment(s): Patient has one sister. Patient has no kids. Medications and Allergies Home Medications Medication Instructions Recorded Confirmed Type Adalimumab [Humira Pen] 40 mg SQ TU 06/21/14 09/27/18 History busPIRone HCl [Buspar] 10 mg PO BID 05/09/17 09/27/18 History Latanoprost Ophth [Xalatan 0.005%] 1 drop BOTH EYES HS@199905/21/17 09/27/18 History Cyanocobalamin [Vitamin B-12 1,000 mcg SQ Q30D 07/24/18 09/27/18 History Injection] Dicyclomine [Bentyl] 10 mg PO TID@0800,1300,199907/24/18 09/27/18 History Ondansetron [Zofran] 4 mg PO Q6HR PRN 07/24/18 09/27/18 History Albuterol Nebulized [Ventolin 2.5 mg INHALATION RT-TID PRN 09/09/18 09/27/18 History Nebulized] Digoxin [Digitek] 125 mcg PO DAILY 09/09/18 09/27/18 History Ipratropium-Albuterol Nebulize 3 ml INHALATION RT-Q8H 09/09/18 09/27/18 History [Duoneb 0.5 mg-3 mg/3 ml Soln] Loperamide [Imodium] 2 mg PO Q6H PRN 09/09/18 09/27/18 History Metoprolol Tartrate [Lopressor] 25 mg PO TID 09/09/18 09/27/18 History Budesonide 1 mg INHALATION RT-BID 09/27/18 09/27/18 History Furosemide [Lasix] 40 mg PO DAILY 09/27/18 09/27/18 History Gabapentin [Neurontin] 300 mg PO TID 09/27/18 09/27/18 History HYDROcodone/APAP 10-325MG [[place] 1 tab PO Q4H PRN 09/27/18 09/27/18 History 10-325] Nicotine Polacrilex [Nicorette] 4 mg BUCCAL Q6H PRN 09/27/18 09/27/18 History Opium Tincture 10mg/1ml 1 dose PO QID PRN 09/27/18 09/27/18 History Potassium Chloride ER [K-Dur 20] 20 meq PO DAILY 09/27/18 09/27/18 History Allergies Allergy/AdvReac Type Severity Reaction Status Date / Time Iodinated Contrast- Oral and Allergy Anaphylaxis Verified 09/27/18 18:59 IV Dye pregabalin [From Lyrica] Allergy Unknown Verified 09/27/18 18:59 rofecoxib [From Vioxx] Allergy Unknown Verified 09/27/18 18:59 Sulfa (Sulfonamide Allergy Rash/Hives Verified 09/27/18 18:59 Antibiotics) aspirin AdvReac Internal Verified 09/27/18 18:59 Bleeding timolol [Timolol] AdvReac Nausea & Verified 09/27/18 18:59 Vomiting Physical Exam Vitals: Vital Signs Temp Pulse Pulse Pulse Resp BP BP 09/28/18 07:37 97.8 F 102 H 16 103/62 09/28/18 07:13 92 09/28/18 06:25 88 09/28/18 01:35 98.9 F 114 H 14 115/47 09/28/18 00:39 16 09/27/18 23:44 94 09/27/18 23:37 91 09/27/18 22:00 97.9 F 109 H 14 122/83 09/27/18 20:45 15 09/27/18 20:42 09/27/18 20:25 97.9 F 91 18 122/83 09/27/18 19:44 98.6 F 98 18 107/54 09/27/18 17:32 107/54 09/27/18 16:37 98 18 116/41 09/27/18 13:17 98.6 F 110 H 18 132/76 Pulse Ox 09/28/18 07:37 99 09/28/18 07:13 09/28/18 06:25 09/28/18 01:35 98 09/28/18 00:39 09/27/18 23:44 09/27/18 23:37 09/27/18 22:00 99 09/27/18 20:45 09/27/18 20:42 99 09/27/18 20:25 99 09/27/18 19:44 97 09/27/18 17:32 97 09/27/18 16:37 98 09/27/18 13:17 99 Intake and Output 09/27/18 09/28/18 09/28/18 22:59 06:59 14:59 Intake Total 625 850 Output Total 600 Balance 25 850 Intake: Amount of Fluid Infused ( 500 ml) Intake, IV Titration 100 850 Amount Sodium Chloride 0.9% 1, 100 850 000 ml @ 100 mls/hr IV . Q10H ONE Rx#:[id number] Oral 25 Output: Stool 600 Other: Voiding Method Bedside Commode # Voids 1 2 General appearance: average body habitus, mild distress - EENT Eyes: anicteric sclerae, EOMI, PERRLA, no ptosis, no scleral icterus, normal appearance ENT: hearing grossly normal, NA/AT, normal oropharynx - Neck Neck: no lymphadenopathy, normal ROM, no rigidity, no stridor, no thyromegaly Carotids: bilateral: upstroke normal Thyroid: bilateral: normal size - Respiratory Respiratory: bilateral: diminished, rhonchi, wheezing, prolonged expiration, negative: dullness, rales - Cardiovascular Rhythm: regular Heart sounds: normal: S1, S2 Abnormal Heart Sounds: systolic murmur, no S3 Gallop - Gastrointestinal General gastrointestinal: Distended, normal bowel sounds, soft, no tenderness, no umbilical hernia, no ventral hernia, positive ileostomy with liquid stool, stoma is beefy red. - Integumentary Integumentary: normal, normal turgor - Neurologic Neurologic: CNII-XII intact - Musculoskeletal Musculoskeletal: generalized weakness, strength equal bilaterally - Psychiatric Psychiatric: A&O x's 3, appropriate affect, intact judgment & insight Results CBC & Chem 7: 09/27/18 13:50 09/27/18 13:50 Labs: Abnormal Lab Results - Last 24 Hours (Table) 09/27/18 09/27/18 Range/Units 13:50 13:50 WBC 11.1 H (3.8-10.6) k/uL Neutrophils # 8.4 H (1.3-7.7) k/uL ESR 39 H (0-20) mm/hr Carbon Dioxide 32 H (22-30) mmol/L BUN 18 H (7-17) mg/dL Calcium 11.5 H (8.4-10.2) mg/dL Amylase <30 L (30-110) U/L Thrombosis Risk Factor Assmnt - DVT/VTE Prophylaxis DVT/VTE Prophylaxis: Pharmacologic Prophylaxis ordered - Choose All That Apply Any of the Below Risk Factors Present?: Yes Each Factor Represents 1 point: Abnormal pulmonary function (COPD), Age 41-60 years, Hx of IBD Each Risk Factor Represents 2 Points: Patient confined to bed Thrombosis Risk Factor Assessment Total Risk Factor Score: 5 Thrombosis Risk Factor Assessment Level: High Risk Assessment and Plan Plan: 1. Acute abdominal pain, possible ileus on CAT scan. Consult with Dr. Aguayo, continue IV fluids, morphine for pain, Zofran for nausea. 2. Recent treatment for acute kidney injury and UTI, stable. Patient completed course of treatment 3. Chronic hypoxemic and hypercapneic respiratory failure requiring mechanical ventilation in the past and Trach which has since removed. Continue DuoNeb treatments every 8 hours, Pulmicort twice daily. Patient is normally on O2 at 3 L nasal cannula at home. 4. Moderate protein calorie malnutrition. Continue with protein supplement. 5. H/O critical illness myopathy post IVIG infusion. Consult PT and OT. 6. History of Crohn's, has ileostomy on the right side. Patient is on Humira 40 mg SC q week, we will continue with Opium Tincture 2 ml po QID scheduled. will bring opium from home. 7. Generalized anxiety disorder. Continue Buspar 10 mg orally bid. 8. Fibromyalgia with bilateral neuropathy. Continue with Gabapentin 300 mg orally tid. 9. Sinus tachycardia. Continue with Metoprolol 25 mg orally tid. 10. B12 deficiency. On B12 1000 mcg sc q month. 11. Glaucoma. we will continue with Xalatan . 12. DVT prophylaxis. we will continue with Heparin 5000 units sc q 12 h. 13. GI prophylaxis. we will continue with protonix 40 mg orally daily. Admit to inpatient for estimated length of stay 2 midnights. Code status: Full code. Discharge plan: Most likely return to her sister's home. Patient has an appointment with Dr. Hernandez on Monday to set up home care. Consult with PT and OT. Impression and plan of care have been directed as dictated by the signing physician. Gaby Rothman nurse practitioner acting as scribe for signing physician.
--- NOTE | 2018-09-28 16:52 | P.GSCN ---
History of Present Illness Consult date: 09/28/18 Reason for Consult: Abdominal pain History of present illness: Patient comes in the hospital with complaints of vague abdominal discomfort as well as vomiting and hemoptysis. The patient is known to our service from a tracheostomy and PEG tube placement that was placed in June. Her trach and taken both then removed at this point. She started feeling ill 2 days ago. Started vomiting yesterday. He came to the hospital when she identified some blood in her emesis and also in her sputum. Patient also describes a decrease in bowel function with no ostomy output yesterday. That function has started to resume however. No sick contacts. Denies fevers or chills. Feels better currently. CAT scan showed some air-fluid levels suspicious for ileus versus PSBO. Patient has a right-sided ileostomy because of Crohn's disease. She has had numerous bowel surgeries in the past. Review of Systems The patient denies any acute changes in vision or hearing, no dysphagia or odynophagia, no chest pain or shortness of breath, no dysuria or hematuria, no headache, no runny nose, no rectal bleeding or melena, no unexplained weight loss Past Medical History Past Medical History: COPD, Fibromyalgia, GERD/Reflux, GI Bleed, Hyperlipidemia , Hypertension, Osteoarthritis (OA), Pneumonia, Syncope Additional Past Medical History / Comment(s): COPD, crohn's, bowel obstructions , lower GI bleeds, hiatal hernia, osteoporosis, arthritis multiple joints, seasonal allergies, right-sided pneumothorax x2; ventilator 07/24/18 - transfer from [facility] r/t [place] History of Any Multi-Drug Resistant Organisms: None Reported Past Surgical History: Breast Surgery, Cholecystectomy, Hernia Repair, Hysterectomy, Orthopedic Surgery Additional Past Surgical History / Comment(s): Multiple bowel surgeries including total colectomy/ileostomy, ileostomy moved/repaired, R tube and R ovary removed due tectopic , total hysterectomy, leep procedure, laparoscopy for endometriosis, L breast lumpectomy-benign, r breast core bx- benign, EGD/colonoscopies. Right-sided Thora-vent placement May 09 and May 19. Eye surgery bilateral,arthroscopic knee surgery on he right due to ACL and Maniscal tear. Past Anesthesia/Blood Transfusion Reactions: No Reported Reaction Past Psychological History: Anxiety Additional Psychological History / Comment(s): Pt currently at [facility] for rehab but normally stays with her 90 yr old father who has dementia. Her spouse is staying at their home to care for the dogs. 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 Patients brother has been caring for father whilst she has been in rehab Smoking Status: Former smoker Past Alcohol Use History: Unable to Obtain Additional Past Alcohol Use History / Comment(s): Patient is to smoke 1 pack per day since she was 17 and smoked for 30 years and quit in January 2018. Past Drug Use History: Unable to Obtain - Past Family History Mother Family Medical History: Cancer, COPD, Hypertension Additional Family Medical History / Comment(s): Mother at age 83 from COPD and osteoarthritis and had skin cancer. Father Family Medical History: Cancer, CVA/TIA, Dementia, Diabetes Mellitus Additional Family Medical History / Comment(s): Father is 90yrs old. Brother(s) Family Medical History: Cancer Additional Family Medical History / Comment(s): Patient had 5 brothers and one of them from melanoma. Sister(s) History Unknown: Yes Family Medical History: No Reported History Additional Family Medical History / Comment(s): Patient has one sister. Patient has no kids. Medications and Allergies Home Medications Medication Instructions Recorded Confirmed Type Adalimumab [Humira Pen] 40 mg SQ TU 06/21/14 09/27/18 History busPIRone HCl [Buspar] 10 mg PO BID 05/09/17 09/27/18 History Latanoprost Ophth [Xalatan 0.005%] 1 drop BOTH EYES HS@199905/21/17 09/27/18 History Cyanocobalamin [Vitamin B-12 1,000 mcg SQ Q30D 07/24/18 09/27/18 History Injection] Dicyclomine [Bentyl] 10 mg PO TID@0800,1300,199907/24/18 09/27/18 History Ondansetron [Zofran] 4 mg PO Q6HR PRN 07/24/18 09/27/18 History Albuterol Nebulized [Ventolin 2.5 mg INHALATION RT-TID PRN 09/09/18 09/27/18 History Nebulized] Digoxin [Digitek] 125 mcg PO DAILY 09/09/18 09/27/18 History Ipratropium-Albuterol Nebulize 3 ml INHALATION RT-Q8H 09/09/18 09/27/18 History [Duoneb 0.5 mg-3 mg/3 ml Soln] Loperamide [Imodium] 2 mg PO Q6H PRN 09/09/18 09/27/18 History Metoprolol Tartrate [Lopressor] 25 mg PO TID 09/09/18 09/27/18 History Budesonide 1 mg INHALATION RT-BID 09/27/18 09/27/18 History Furosemide [Lasix] 40 mg PO DAILY 09/27/18 09/27/18 History Gabapentin [Neurontin] 300 mg PO TID 09/27/18 09/27/18 History HYDROcodone/APAP 10-325MG [[place] 1 tab PO Q4H PRN 09/27/18 09/27/18 History 10-325] Nicotine Polacrilex [Nicorette] 4 mg BUCCAL Q6H PRN 09/27/18 09/27/18 History Opium Tincture 10mg/1ml 1 dose PO QID PRN 09/27/18 09/27/18 History Potassium Chloride ER [K-Dur 20] 20 meq PO DAILY 09/27/18 09/27/18 History Allergies Allergy/AdvReac Type Severity Reaction Status Date / Time Iodinated Contrast- Oral and Allergy Anaphylaxis Verified 09/27/18 18:59 IV Dye pregabalin [From Lyrica] Allergy Unknown Verified 09/27/18 18:59 rofecoxib [From Vioxx] Allergy Unknown Verified 09/27/18 18:59 Sulfa (Sulfonamide Allergy Rash/Hives Verified 09/27/18 18:59 Antibiotics) aspirin AdvReac Internal Verified 09/27/18 18:59 Bleeding timolol [Timolol] AdvReac Nausea & Verified 09/27/18 18:59 Vomiting Surgical - Exam Vital Signs Temp Pulse Resp BP Pulse Ox 98.6 F 110 H 18 132/76 99 09/27/18 13:17 09/27/18 13:17 09/27/18 13:17 09/27/18 13:17 09/27/18 13:17 Physical exam: General: Well-developed, well-nourished HEENT: Normocephalic, sclerae nonicteric Abdomen: Nontender, nondistended, previous scars noted, right-sided ostomy with liquid stool Extremities: No edema Neuro: Alert and oriented Results - Labs 09/27/18 13:50 09/27/18 13:50 Abnormal Lab Results - Last 24 Hours (Table) 09/28/18 Range/Units 11:30 Stool Occult Blood Positive H (Negative) Assessment and Plan (1) Abdominal pain Narrative/Plan: Patient with nausea vomiting and abdominal pain along with transient decreased function of her ostomy. Etiology unclear but may represent atypical gastroenteritis. Patient was having some blood with coughing and also with some of her emesis. The hemoptysis could be related to scarring of the tracheal lining from recent tracheostomy removal. The patient states she believes she swallowed some blood and that may explain the hematemesis. She had explained her hematemesis was tinged with blood only. Ostomy has not been bloody or melanotic. Only bilious fluid. Continue observation. Begin clear liquids. Will follow. Current Visit: Yes Status: Acute Code(s): R10.9 - UNSPECIFIED ABDOMINAL PAIN SNOMED Code(s): 58623834
[2018-09-28] MEDS: OPIUM TINCTURE PO PRN (17:58)
[2018-09-28] MEDS: ALBUTEROL NEBULIZED 2.5 MG/3 ML INHALATION PRN (21:24)
[2018-09-28] MEDS: LATANOPROST 0.005% OPHTH DROPS 2.5 ML BTL BOTH EYES SCH (21:37)
[2018-09-28] MEDS: MELATONIN 5 MG TABLET PO SCH (21:37)
[2018-09-28] MEDS: HEPARIN SODIUM,PORCINE 5,000 UNIT/ML 1 ML VIAL SQ SCH (21:37)
[2018-09-29] MEDS: MORPHINE SULFATE 2 MG/ML SYRINGE IVP PRN ×5 (02:19→21:28)
[2018-09-29] MEDS: PANTOPRAZOLE 40 MG/10 ML VIAL IVP SCH (08:22)
[2018-09-29] MEDS: HEPARIN SODIUM,PORCINE 5,000 UNIT/ML 1 ML VIAL SQ SCH ×2 (08:22→21:02)
[2018-09-29] MEDS: POTASSIUM CHLORIDE ER 20 MEQ TAB.ER PO SCH (08:22)
[2018-09-29] MEDS: METOPROLOL TARTRATE 25 MG TAB PO SCH ×3 (08:22→21:33)
[2018-09-29] MEDS: GABAPENTIN 300 MG CAP PO SCH ×3 (08:22→21:33)
[2018-09-29] MEDS: DICYCLOMINE 10 MG CAP PO SCH ×3 (08:22→21:02)
[2018-09-29] MEDS: FUROSEMIDE 40 MG TAB PO SCH (08:22)
[2018-09-29] MEDS: busPIRone HCl 10 MG TAB PO SCH ×2 (08:22→21:02)
[2018-09-29] MEDS: DIGOXIN 125 MCG TAB PO SCH (08:28)
[2018-09-29] MEDS: BUDESONIDE 1 MG/2 ML NEBU INHALATION SCH ×2 (08:46→20:38)
[2018-09-29] MEDS: IPRATROPIUM-ALBUTEROL 3 ML NEB INHALATION SCH ×2 (08:46→16:44)
[2018-09-29] MEDS: OPIUM TINCTURE PO PRN ×2 (09:23→18:26)
--- NOTE | 2018-09-29 10:11 | P.PN ---
Subjective Progress Note Date: 09/29/18 This is a 58-year-old female patient of Dr. 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 Patient was admitted in June to [facility] for COPD exacerbation requiring ventilation on admission and planning to have trach and PEG but noticed bullous disease in the left side and because of pneumothorax patient was transferred to [facility] at that time and evaluated by thoracic surgery. 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 She was recently hospitalized earlier this month for acute kidney injury, UTI and was then returned to [facility] under the care of Dr. Merchant. Patient states she was discharged from [facility] on Monday and subsequently developed abdominal cramping and diarrhea. That had been going on for 2 days and all of a sudden she states adequate and she had no bowel movements out of her ileostomy. She states her whole body hurts. The cramps go across the lower abdomen and she has had these for a long period time secondary to Crohn' s. She states she had 1 emesis with blood and she also coughed up some blood. Patient denies any fever or chills no chest pain no shortness of breath. No urinary symptoms no back pain no headache. No lightheadedness, dizziness or syncopal episodes. She presented to [facility] emergency center for evaluation. CAT scan of the abdomen and pelvis showed mildly dilated loops of small bowel and air-fluid levels favor ileus. There are decompressed distal small bowel loops, no transition point seen, air within the ileostomy. White count 11.1, creatinine 0.78, calcium 11.5 liver function tests are within normal limits as well as lipase is normal. Patient was started on morphine for pain, Zofran for nausea, made nothing by mouth, IV fluids and [facility]. Consult with Dr. Dede iverson. Patient continues to have lower extremity weakness and uses a walker secondary to critical illness myopathy. She states that she is staying with her sisters until she is independent. She does have home O2 at 3 L nasal cannula. will bring and opium tincture from home tonight after work. 09/29: Patient has been seen by Dr. Aguayo in place on a clear liquid diet which she is tolerating. She is requesting that this may advance. We will wait for Dr. du determination. Stool for occult blood came back positive yesterday. She states her abdomen is a little tender. Ostomy is working. Anticipate discharge by tomorrow. Review of Systems All systems: negative Constitutional: Reports weakness, Reports weight loss, Denies chills, Denies fatigue, Denies fever Eyes: denies blurred vision, denies pain Ears, nose, mouth and throat: Denies dysphagia, Denies headache, Denies sore throat, Denies vertigo Cardiovascular: Denies chest pain, Denies edema, Denies orthopnea, Denies shortness of breath, Denies syncope Respiratory: Denies cough Gastrointestinal: Reports abdominal pain, denies bloating, denies constipation, Reports diarrhea, denies loss of appetite, denies melena, Denies nausea, Denies vomiting Genitourinary: Denies dysuria, Denies hematuria Musculoskeletal: Denies myalgias Integumentary: Denies pruritus, Denies rash Neurological: Denies numbness, Denies weakness Psychiatric: Denies anxiety, Denies depression Endocrine: Denies fatigue, Denies weight change Objective - Vital Signs Vital signs: Vital Signs Temp 98.5 F 09/29/18 01:44 Pulse 92 09/29/18 01:44 Resp 16 09/29/18 01:44 BP 100/64 09/29/18 01:44 Pulse Ox 97 09/28/18 21:24 Intake & Output 09/28/18 09/29/18 09/29/18 18:59 06:59 18:59 Weight 47.174 kg Other: Voiding Method Bedside Commode - Exam General appearance: average body habitus, no distress - EENT Eyes: anicteric sclerae, EOMI, PERRLA, no ptosis, no scleral icterus, normal appearance ENT: hearing grossly normal, NA/AT, normal oropharynx - Neck Neck: no lymphadenopathy, normal ROM, no rigidity, no stridor, no thyromegaly Carotids: bilateral: upstroke normal Thyroid: bilateral: normal size - Respiratory Respiratory: bilateral: diminished, rhonchi, wheezing, prolonged expiration, negative: dullness, rales - Cardiovascular Rhythm: regular Heart sounds: normal: S1, S2 Abnormal Heart Sounds: systolic murmur, no S3 Gallop - Gastrointestinal General gastrointestinal: Distended, normal bowel sounds, soft, no tenderness, no umbilical hernia, no ventral hernia, positive ileostomy with liquid stool, stoma is beefy red. - Integumentary Integumentary: normal, normal turgor - Neurologic Neurologic: CNII-XII intact - Musculoskeletal Musculoskeletal: generalized weakness, strength equal bilaterally - Psychiatric Psychiatric: A&O x's 3, appropriate affect, intact judgment & insight - Labs CBC & Chem 7: 09/27/18 13:50 09/27/18 13:50 Labs: Abnormal Lab Results - Last 24 Hours (Table) 09/28/18 Range/Units 11:30 Stool Occult Blood Positive H (Negative) Assessment and Plan Plan: 1. Acute abdominal pain, possible ileus on CAT scan possibly due to gastroenteritis. Consult with Dr. Aguayo, continue IV fluids, morphine for pain , Zofran for nausea. Currently tolerating clear liquid diet. 2. Recent treatment for acute kidney injury and UTI, stable. Patient completed course of treatment 3. Chronic hypoxemic and hypercapneic respiratory failure requiring mechanical ventilation in the past and Trach which has since removed. Continue DuoNeb treatments every 8 hours, Pulmicort twice daily. Patient is normally on O2 at 3 L nasal cannula at home. 4. Moderate protein calorie malnutrition. Continue with protein supplement. 5. H/O critical illness myopathy post IVIG infusion. Consult PT and OT. 6. History of Crohn's, has ileostomy on the right side. Patient is on Humira 40 mg SC q week, we will continue with Opium Tincture 2 ml po QID scheduled. will bring opium from home. 7. Generalized anxiety disorder. Continue Buspar 10 mg orally bid. 8. Fibromyalgia with bilateral neuropathy. Continue with Gabapentin 300 mg orally tid. 9. Sinus tachycardia. Continue with Metoprolol 25 mg orally tid. 10. B12 deficiency. On B12 1000 mcg sc q month. 11. Glaucoma. we will continue with Xalatan . 12. DVT prophylaxis. we will continue with Heparin 5000 units sc q 12 h. 13. GI prophylaxis. we will continue with protonix 40 mg orally daily. Code status: Full code. Discharge plan: Most likely return to her sister's home on Monday. Patient has an appointment with Dr. James on Monday to set up home care. Consult with PT and OT. Impression and plan of care have been directed as dictated by the signing physician. Gaby Rothman nurse practitioner acting as scribe for signing physician.
--- NOTE | 2018-09-29 10:50 | P.PN ---
Subjective Progress Note Date: 09/29/18 Principal diagnosis: Abdominal pain Patient doing better. She is hungry. She is tolerating her clears however. Good ostomy function. Denies abdominal pain. Complaining of pain in her joints and muscles. Objective - Vital Signs Vital signs: Vital Signs Temp 98.5 F 09/29/18 01:44 Pulse 92 09/29/18 08:59 Resp 16 09/29/18 04:31 BP 100/64 09/29/18 01:44 Pulse Ox 97 09/28/18 21:24 Intake & Output 09/28/18 09/29/18 09/29/18 18:59 06:59 18:59 Intake Total 1140 Balance 1140 Weight 47.174 kg Intake: Intake, IV Titration 600 Amount Sodium Chloride 0.9% 1, 600 000 ml @ 100 mls/hr IV . Q10H ONE Rx#:[id number] Oral 540 Other: Voiding Method Bedside Commode Bedside Commode # Voids 1 - Exam Abdomen: Soft, nontender, nondistended - Labs CBC & Chem 7: 09/27/18 13:50 09/27/18 13:50 Labs: Abnormal Lab Results - Last 24 Hours (Table) 09/28/18 Range/Units 11:30 Stool Occult Blood Positive H (Negative) Assessment and Plan (1) Abdominal pain Narrative/Plan: Will advance diet. Increase activity. Current Visit: Yes Status: Acute Code(s): R10.9 - UNSPECIFIED ABDOMINAL PAIN SNOMED Code(s): 89180214
[2018-09-29 11:15] LABS: HCT 34.2 % (34.0-46.0); HGB 10.9 gm/dL (11.4-16.0); MCHC 31.9 g/dL (31.0-37.0); MCV 90.8 fL (80.0-100.0); Mean Platelet Volume 7.1; Platelet Count 246 k/uL (150-450); RBC 3.77 m/uL (3.80-5.40); RDW 14.3 % (11.5-15.5); WBC 7.1 k/uL (3.8-10.6)
[2018-09-29 11:27] LABS: ALT 25 U/L (9-52); AST 22 U/L (14-36); Albumin 3.4 g/dL (3.5-5.0); Alkaline Phosphatase 57 U/L (38-126); Anion Gap 8 mmol/L; Blood Urea Nitrogen 8 mg/dL (7-17); Calcium 9.8 mg/dL (8.4-10.2); Carbon Dioxide 31 mmol/L (22-30); Chloride 102 mmol/L (98-107); Glucose 144 mg/dL (74-99); Potassium 3.6 mmol/L (3.5-5.1); Sodium 141 mmol/L (137-145); Total Bilirubin 0.4 mg/dL (0.2-1.3); Total Protein 6.1 g/dL (6.3-8.2)
[2018-09-29] MEDS: ONDANSETRON 4 MG/2 ML VIAL IVP PRN (17:31)
[2018-09-29] MEDS: ALBUTEROL NEBULIZED 2.5 MG/3 ML INHALATION PRN (20:38)
[2018-09-29] MEDS: MELATONIN 5 MG TABLET PO SCH (21:01)
[2018-09-29] MEDS: LATANOPROST 0.005% OPHTH DROPS 2.5 ML BTL BOTH EYES SCH (21:02)
[2018-09-30 01:03] VITALS: TEMP 98
[2018-09-30] MEDS: MORPHINE SULFATE 2 MG/ML SYRINGE IVP PRN ×2 (03:42→09:49)
[2018-09-30] MEDS: IPRATROPIUM-ALBUTEROL 3 ML NEB INHALATION SCH ×2 (08:46→12:19)
[2018-09-30] MEDS: BUDESONIDE 1 MG/2 ML NEBU INHALATION SCH (08:46)
[2018-09-30] MEDS: ONDANSETRON 4 MG/2 ML VIAL IVP PRN (09:48)
--- NOTE | 2018-09-30 10:29 | P.DS ---
Providers Date of admission: 09/27/18 18:20 Expected date of discharge: 09/30/18 Attending physician: Amadeo Sanchez MD Consults: 09/27/18 18:20 Consult Physician Urgent Consulting Provider: Fernando Aguayo Consult Reason/Comments: Abdominal pain Do you want consulting provider notified?: Yes Primary care physician: [facility]ber [facility] Course: This is a 58-year-old female patient of Dr. 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 Patient was admitted in June to [facility] for COPD exacerbation requiring ventilation on admission and planning to have trach and PEG but noticed bullous disease in the left side and because of pneumothorax patient was transferred to [facility] at that time and evaluated by thoracic surgery. 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 She was recently hospitalized earlier this month for acute kidney injury, UTI and was then returned to [facility] under the care of Dr. Merchant. Patient states she was [place] [facility] [place] and subsequently developed abdominal cramping and diarrhea. That had been going on for 2 days and all of a sudden she states adequate and she had no bowel movements out of her ileostomy. She states her whole body hurts. The cramps go across the lower abdomen and she has had these for a long period time secondary to Crohn' s. She states she had 1 emesis with blood and she also coughed up some blood. Patient denies any fever or chills no chest pain no shortness of breath. No urinary symptoms no back pain no headache. No lightheadedness, dizziness or syncopal episodes. She presented to [facility] emergency center for evaluation. CAT scan of the abdomen and pelvis showed mildly dilated loops of small bowel and air-fluid levels favor ileus. There are decompressed distal small bowel loops, no transition point seen, air within the ileostomy. White count 11.1, creatinine 0.78, calcium 11.5 liver function tests are within normal limits as well as lipase is normal. Patient was started on morphine for pain, Zofran for nausea, made nothing by mouth, IV fluids and admitted to the [facility] floor. Consult with Dr. Dede iverson. Patient continues to have lower extremity weakness and uses a walker secondary to critical illness myopathy. She states that she is staying with her sisters until she is independent. She does have home O2 at 3 L nasal cannula. will bring and opium tincture from home tonight after work. 09/29: Patient has been seen by Dr. Aguayo in place on a clear liquid diet which she is tolerating. She is requesting that this may advance. We will wait for Dr. du determination. Stool for occult blood came back positive yesterday. She states her abdomen is a little tender. Ostomy is working. Anticipate discharge by tomorrow. 09/30: Patient was seen by Dr. Aguayo yesterday and diet has been advanced to low fiber which she is tolerating. She states she is having more gas and her ileostomy but continues to have output that is watery. She states she is eating and discomfort in her abdomen is improved. She has walked without any difficulty. We will plan for discharge home today in stable condition. Discharge diagnoses: 1. Acute abdominal pain, possible ileus on CAT scan possibly due to gastroenteritis. 2. Recent treatment for acute kidney injury and UTI, stable. 3. Chronic hypoxemic and hypercapneic respiratory failure requiring mechanical ventilation in the past and Trach which has since removed. 4. Moderate protein calorie malnutrition. 5. H/O critical illness myopathy post IVIG infusion. 6. History of Crohn's, has ileostomy on the right side. 7. Generalized anxiety disorder. 8. Fibromyalgia with bilateral neuropathy. 9. Sinus tachycardia. 10. B12 deficiency. 11. Glaucoma. Discharge plan: Most likely return to her sister's home on Monday. Patient has an appointment with Dr. James on Monday to set up home care. Impression and plan of care have been directed as dictated by the signing physician. Gaby Rothman nurse practitioner acting as scribe for signing physician. Patient Condition at Discharge: Good Plan - Discharge Summary Discharge Rx Participant: Yes New Discharge Prescriptions: New Melatonin 10 mg PO HS tablet Continue Adalimumab [Humira Pen] 40 mg SQ TU busPIRone HCl [Buspar] 10 mg PO BID Latanoprost Ophth [Xalatan 0.005%] 1 drop BOTH EYES HS@1999 Ondansetron [Zofran] 4 mg PO Q6HR PRN PRN Reason: Nausea And Vomiting Dicyclomine [Bentyl] 10 mg PO TID@0800,1299,1999 Cyanocobalamin [Vitamin B-12 Injection] 1,000 mcg SQ Q30D Albuterol Nebulized [Ventolin Nebulized] 2.5 mg INHALATION RT-TID PRN PRN Reason: Shortness Of Breath Ipratropium-Albuterol Nebulize [Duoneb 0.5 mg-3 mg/3 ml Soln] 3 ml INHALATION RT-Q8H Loperamide [Imodium] 2 mg PO Q6H PRN PRN Reason: Diarrhea Metoprolol Tartrate [Lopressor] 25 mg PO TID Digoxin [Digitek] 125 mcg PO DAILY Budesonide 1 mg INHALATION RT-BID Furosemide [Lasix] 40 mg PO DAILY Gabapentin [Neurontin] 300 mg PO TID Nicotine Polacrilex [Nicorette] 4 mg BUCCAL Q6H PRN PRN Reason: addiction Potassium Chloride ER [K-Dur 20] 20 meq PO DAILY Opium Tincture 10mg/1ml 1 dose PO QID PRN PRN Reason: BOWEL/DIARRHEA ISSUES HYDROcodone/APAP 10-325MG [[place] 10-325] 1 tab PO Q4H PRN PRN Reason: Pain Discharge Medication List Adalimumab [Humira Pen] 40 mg SQ TU 06/21/14 [History] busPIRone HCl [Buspar] 10 mg PO BID 05/09/17 [History] Latanoprost Ophth [Xalatan 0.005%] 1 drop BOTH EYES HS@199905/21/17 [History] Cyanocobalamin [Vitamin B-12 Injection] 1,000 mcg SQ Q30D 07/24/18 [History] Dicyclomine [Bentyl] 10 mg PO TID@0800,1300,199907/24/18 [History] Ondansetron [Zofran] 4 mg PO Q6HR PRN 07/24/18 [History] Albuterol Nebulized [Ventolin Nebulized] 2.5 mg INHALATION RT-TID PRN 09/09/18 [ History] Digoxin [Digitek] 125 mcg PO DAILY 09/09/18 [History] Ipratropium-Albuterol Nebulize [Duoneb 0.5 mg-3 mg/3 ml Soln] 3 ml INHALATION RT -Q8H 09/09/18 [History] Loperamide [Imodium] 2 mg PO Q6H PRN 09/09/18 [History] Metoprolol Tartrate [Lopressor] 25 mg PO TID 09/09/18 [History] Budesonide 1 mg INHALATION RT-BID 09/27/18 [History] Furosemide [Lasix] 40 mg PO DAILY 09/27/18 [History] Gabapentin [Neurontin] 300 mg PO TID 09/27/18 [History] HYDROcodone/APAP 10-325MG [[place] 10-325] 1 tab PO Q4H PRN 09/27/18 [History] Nicotine Polacrilex [Nicorette] 4 mg BUCCAL Q6H PRN 09/27/18 [History] Opium Tincture 10mg/1ml 1 dose PO QID PRN 09/27/18 [History] Potassium Chloride ER [K-Dur 20] 20 meq PO DAILY 09/27/18 [History] Melatonin 10 mg PO HS tablet 09/30/18 [Rx] Follow up Appointment(s)/Referral(s): Heber James MD [Primary Care Provider] - 1-2 days (Has appointment Monday) Activity/Diet/Wound Care/Special Instructions: Protein supplements Discharge Disposition: HOME SELF-CARE
[2018-09-30] MEDS: METOPROLOL TARTRATE 25 MG TAB PO SCH (11:15)
[2018-09-30] MEDS: DIGOXIN 125 MCG TAB PO SCH (11:15)
[2018-09-30] MEDS: busPIRone HCl 10 MG TAB PO SCH (11:15)
[2018-09-30] MEDS: FUROSEMIDE 40 MG TAB PO SCH (11:16)
[2018-09-30] MEDS: POTASSIUM CHLORIDE ER 20 MEQ TAB.ER PO SCH (11:16)
[2018-09-30] MEDS: HEPARIN SODIUM,PORCINE 5,000 UNIT/ML 1 ML VIAL SQ SCH (11:17)
[2018-09-30] MEDS: GABAPENTIN 300 MG CAP PO SCH (11:18)
[2018-09-30] MEDS: PANTOPRAZOLE 40 MG/10 ML VIAL IVP SCH (11:21)
[2018-09-30] MEDS: DICYCLOMINE 10 MG CAP PO SCH (11:21)
--- NOTE | 2018-09-30 11:39 | P.PN ---
Subjective Progress Note Date: 09/30/18 Principal diagnosis: Abdominal pain Patient doing well today. More normal bowel movements now. Tolerating diet. Some nausea. Planning to go home today. Objective - Vital Signs Vital signs: Vital Signs Temp 98.0 F 09/29/18 23:00 Pulse 88 09/30/18 09:01 Resp 20 09/29/18 23:00 BP 91/50 09/30/18 03:45 Pulse Ox 96 09/29/18 23:00 Intake & Output 09/29/18 09/30/18 09/30/18 18:59 06:59 18:59 Intake Total 480 Balance 480 Intake: Oral 480 Other: Voiding Method Bedside Commode # Voids 2 - Exam Abdomen: Soft, nontender, nondistended - Labs CBC & Chem 7: 09/29/18 09:41 09/29/18 09:41 Assessment and Plan (1) Abdominal pain Narrative/Plan: Continue diet as tolerated. Stable for discharge. Follow-up as needed. Current Visit: Yes Status: Acute Code(s): R10.9 - UNSPECIFIED ABDOMINAL PAIN SNOMED Code(s): 25664985
[2018-09-30] MEDS: OPIUM TINCTURE PO PRN (12:29)
[2018-09-30 13:18] VITALS: BP 94/60; PULSE 100; RESP 18
== END 2018-09-30 13:28 | disposition home or self-care (01) | DRG 389 ==
LOC: EC 12:47 → 4SSUR 18:20
PROVIDERS: ADMIT Internal Medicine; ATTEND Internal Medicine
DX: K56.7 Ileus, unspecified (principal); K50.90 Crohn's disease, unspecified, without complications; J96.11 Chronic respiratory failure with hypoxia; J96.12 Chronic respiratory failure with hypercapnia; G72.81 Critical illness myopathy; E44.0 Moderate protein-calorie malnutrition; Z68.1 Body mass index [BMI] 19.9 or less, adult; J43.9 Emphysema, unspecified; G62.9 Polyneuropathy, unspecified; K52.9 Noninfective gastroenteritis and colitis, unspecified; H40.9 Unspecified glaucoma; F41.1 Generalized anxiety disorder; E53.8 Deficiency of other specified B group vitamins; M79.7 Fibromyalgia; K44.9 Diaphragmatic hernia without obstruction or gangrene; K21.9 Gastro-esophageal reflux disease without esophagitis; E78.5 Hyperlipidemia, unspecified; J30.2 Other seasonal allergic rhinitis; I10 Essential (primary) hypertension; M19.90 Unspecified osteoarthritis, unspecified site; M81.0 Age-related osteoporosis without current pathological fracture; Z93.2 Ileostomy status; Z79.51 Long term (current) use of inhaled steroids; Z79.899 Other long term (current) drug therapy; Z87.891 Personal history of nicotine dependence; Z87.01 Personal history of pneumonia (recurrent); Z90.49 Acquired absence of other specified parts of digestive tract; Z90.710 Acquired absence of both cervix and uterus; Z90.721 Acquired absence of ovaries, unilateral; Z90.79 Acquired absence of other genital organ(s); Z88.2 Allergy status to sulfonamides; Z88.8 Allergy status to other drugs, medicaments and biological substances; Z91.041 Radiographic dye allergy status; Z82.5 Family history of asthma and other chronic lower respiratory diseases; Z82.49 Family history of ischemic heart disease and other diseases of the circulatory system; Z80.8 Family history of malignant neoplasm of other organs or systems; Z83.3 Family history of diabetes mellitus; Z82.3 Family history of stroke; Z81.8 Family history of other mental and behavioral disorders
CPT/HCPCS: 36415; 74176; 80053; 81003; 82150; 82272; 83690; 85025; 85027; 85652; 86140; 94640; 94760; 96361; 96374; 96375; 96376; 99285

== ENCOUNTER 2018-10-03 13:28 | Emergency (ER) | payer BC ==
[2018-10-03] MEDS ORDERED: IPRATROPIUM-ALBUTEROL 3 ML NEB INHALATION STA (13:50)
[2018-10-03] MEDS ORDERED: methylPREDNISolone SOD SUCCI 125 MG/2 ML VIAL IV STA (13:50)
[2018-10-03] MEDS ORDERED: ONDANSETRON 4 MG/2 ML VIAL IVP STA (13:51)
--- NOTE | 2018-10-03 13:56 | ED ---
General Adult HPI - General Chief complaint: Shortness of Breath Stated complaint: SELENA Time Seen by Provider: 10/03/18 13:37 Source: patient, EMS, RN notes reviewed Mode of arrival: EMS Limitations: no limitations - History of Present Illness Initial comments: Patient is a pleasant 58-year-old female presenting to the emergency Department with dyspnea. Onset of symptoms was this morning. Patient does have a history of similar symptoms associated with COPD. Patient does have some associated nausea and has been retching. Patient has discomfort only with retching. No chest discomfort otherwise. No abdominal discomfort otherwise. No back pain. No fevers. Patient feels she may have some mild swelling of her legs. Patient states this is a chronic problem for her. - Related Data Home Medications Medication Instructions Recorded Confirmed Adalimumab [Humira Pen] 40 mg SQ TU 06/21/14 10/03/18 busPIRone HCl [Buspar] 10 mg PO BID 05/09/17 10/03/18 Latanoprost Ophth [Xalatan 0.005%] 1 drop BOTH EYES DAILY 05/21/17 10/03/18 Cyanocobalamin [Vitamin B-12 1,000 mcg SQ Q30D 07/24/18 10/03/18 Injection] Dicyclomine [Bentyl] 10 mg PO TID 07/24/18 10/03/18 Ondansetron [Zofran] 4 mg PO Q6H PRN 07/24/18 10/03/18 Albuterol Nebulized [Ventolin 2.5 mg INHALATION RT-TID PRN 09/09/18 10/03/18 Nebulized] Digoxin [Digitek] 125 mcg PO DAILY 09/09/18 10/03/18 Ipratropium-Albuterol Nebulize 3 ml INHALATION RT-Q8H 09/09/18 10/03/18 [Duoneb 0.5 mg-3 mg/3 ml Soln] Loperamide [Imodium] 2 mg PO Q6H PRN 09/09/18 10/03/18 Metoprolol Tartrate [Lopressor] 25 mg PO DAILY 09/09/18 10/03/18 Budesonide 1 mg INHALATION RT-BID 09/27/18 10/03/18 Furosemide [Lasix] 40 mg PO DAILY 09/27/18 10/03/18 Gabapentin [Neurontin] 300 mg PO TID 09/27/18 10/03/18 HYDROcodone/APAP 10-325MG [[place] 1 tab PO Q4H PRN 09/27/18 10/03/18 10-325] Nicotine Polacrilex [Nicorette] 4 mg BUCCAL Q6H PRN 09/27/18 10/03/18 Opium Tincture 10mg/1ml 1 dose PO QID PRN 09/27/18 10/03/18 Potassium Chloride ER [K-Dur 20] 20 meq PO DAILY 09/27/18 10/03/18 Previous Rx's Medication Instructions Recorded Azithromycin [Zithromax Z-pack] 250 mg PO DIRECTED #6 tab 10/03/18 predniSONE 20 mg PO BID #10 tab 10/03/18 Allergies Allergy/AdvReac Type Severity Reaction Status Date / Time Iodinated Contrast- Oral and Allergy Anaphylaxis Verified 10/03/18 14:01 IV Dye pregabalin [From Lyrica] Allergy Unknown Verified 10/03/18 14:01 rofecoxib [From Vioxx] Allergy Unknown Verified 10/03/18 14:01 Sulfa (Sulfonamide Allergy Rash/Hives Verified 10/03/18 14:01 Antibiotics) aspirin AdvReac Internal Verified 10/03/18 14:01 Bleeding timolol [Timolol] AdvReac Nausea & Verified 10/03/18 14:01 Vomiting Review of Systems ROS Statement: Those systems with pertinent positive or pertinent negative responses have been documented in the HPI. ROS Other: All systems not noted in ROS Statement are negative. Constitutional: Denies: fever, chills Eyes: Denies: eye pain ENT: Denies: ear pain Respiratory: Reports: dyspnea Cardiovascular: Reports: as per HPI Endocrine: Denies: fatigue Gastrointestinal: Reports: as per HPI, nausea, vomiting Genitourinary: Denies: dysuria Musculoskeletal: Denies: back pain Skin: Denies: rash Neurological: Denies: weakness Past Medical History Past Medical History: COPD, Fibromyalgia, GERD/Reflux, GI Bleed, Hyperlipidemia , Hypertension, Osteoarthritis (OA), Pneumonia, Syncope Additional Past Medical History / Comment(s): COPD, crohn's, bowel obstructions , lower GI bleeds, hiatal hernia, osteoporosis, arthritis multiple joints, seasonal allergies, right-sided pneumothorax x2; ventilator 07/24/18 - transfer from [facility] r/t [place] History of Any Multi-Drug Resistant Organisms: None Reported Past Surgical History: Breast Surgery, Cholecystectomy, Hernia Repair, Hysterectomy, Orthopedic Surgery Additional Past Surgical History / Comment(s): Multiple bowel surgeries including total colectomy/ileostomy, ileostomy moved/repaired, R tube and R ovary removed due tectopic , total hysterectomy, leep procedure, laparoscopy for endometriosis, L breast lumpectomy-benign, r breast core bx- benign, EGD/colonoscopies. Right-sided Thora-vent placement May 09 and May 19. Eye surgery bilateral,arthroscopic knee surgery on he right due to ACL and Maniscal tear. Past Anesthesia/Blood Transfusion Reactions: No Reported Reaction Past Psychological History: Anxiety Smoking Status: Former smoker Past Alcohol Use History: Unable to Obtain Past Drug Use History: Unable to Obtain - Past Family History Mother Family Medical History: Cancer, COPD, Hypertension Additional Family Medical History / Comment(s): Mother at age 83 from COPD and osteoarthritis and had skin cancer. Father Family Medical History: Cancer, CVA/TIA, Dementia, Diabetes Mellitus Additional Family Medical History / Comment(s): Father is 90yrs old. Brother(s) Family Medical History: Cancer Additional Family Medical History / Comment(s): Patient had 5 brothers and one of them from melanoma. Sister(s) History Unknown: Yes Family Medical History: No Reported History Additional Family Medical History / Comment(s): Patient has one sister. Patient has no kids. General Exam Limitations: no limitations General appearance: alert, in no apparent distress Head exam: Present: atraumatic Eye exam: Present: normal appearance, PERRL ENT exam: Present: normal oropharynx Neck exam: Present: normal inspection Respiratory exam: Present: wheezes, decreased breath sounds Cardiovascular Exam: Present: regular rate, normal rhythm Expanded Peripheral pulses: 2+: Radial (R), Radial (L), Dorsalis Pedis (R), Dorsalis Pedis (L) GI/Abdominal exam: Present: soft. Absent: tenderness Extremities exam: Present: pedal edema (Trace bilateral). Absent: calf tenderness Back exam: Present: normal inspection Neurological exam: Present: alert Psychiatric exam: Present: normal affect, normal mood Skin exam: Present: normal color Course Vital Signs 12/03/1610/03/18 10/03/18 13:37 14:00 14:09 Temperature 97.3 F L Pulse Rate 101 H 100 Respiratory 24 24 Rate Blood Pressure 149/101 O2 Sat by Pulse 94 L Oximetry 10/03/18 10/03/18 10/03/18 14:21 14:25 15:58 Temperature Pulse Rate 108 H 105 H 97 Respiratory 24 24 Rate Blood Pressure 109/84 123/85 O2 Sat by Pulse 96 99 Oximetry EKG Findings - EKG Comments: EKG Findings:: Sinus tachycardia 104. VT 146. QRS 74. QT 354. QTC 465. Normal axis. PVC present. Normal QRS. No acute ST change. Medical Decision Making - Medical Decision Making Patient reevaluated and is improved. Magnesium has been ordered. Case was discussed in detail with Dr. Siddiqui covering for Dr. James who did review chart and is somewhat familiar with this patient. He does not feel patient needs admission and recommends discharge with further outpatient evaluation. Patient is updated regarding this. Patient states she is supposed to be on magnesium daily and has some at home and will resume this. Patient states she has been on this for over 6 months and this was stopped on previous hospitalization. - Lab Data Result diagrams: 10/03/18 13:40 10/03/18 13:40 Lab Results 10/03/18 10/03/18 10/03/18 Range/Units 13:40 13:40 13:40 WBC 17.2 H (3.8-10.6) k/uL RBC 4.28 (3.80-5.40) m/uL Hgb 12.2 (11.4-16.0) gm/dL Hct 39.1 (34.0-46.0) % MCV 91.4 (80.0-100.0) fL MCH 28.4 (25.0-35.0) pg MCHC 31.1 (31.0-37.0) g/dL RDW 14.2 (11.5-15.5) % Plt Count 373 (150-450) k/uL Neutrophils % 60 % Lymphocytes % 28 % Monocytes % 5 % Eosinophils % 3 % Basophils % 0 % Neutrophils # 10.4 H (1.3-7.7) k/uL Lymphocytes # 4.8 (1.0-4.8) k/uL Monocytes # 0.9 (0-1.0) k/uL Eosinophils # 0.5 (0-0.7) k/uL Basophils # 0.1 (0-0.2) k/uL PT (9.0-12.0) sec INR (<1.2) APTT (22.0-30.0) sec Sodium 138 (137-145) mmol/L Potassium 3.5 (3.5-5.1) mmol/L Chloride 95 L (98-107) mmol/L Carbon Dioxide 34 H (22-30) mmol/L Anion Gap 9 mmol/L BUN 13 (7-17) mg/dL Creatinine 0.91 (0.52-1.04) mg/dL Est GFR (CKD-EPI)AfAm 81 (>60 ml/min/1.73 sqM) Est GFR (CKD-EPI)NonAf 70 (>60 ml/min/1.73 sqM) Glucose 278 H (74-99) mg/dL Calcium 9.1 (8.4-10.2) mg/dL Magnesium 0.7 L* (1.6-2.3) mg/dL Total Bilirubin 0.3 (0.2-1.3) mg/dL AST 26 (14-36) U/L ALT 30 (9-52) U/L Alkaline Phosphatase 77 (38-126) U/L Total Creatine Kinase 29 L (30-135) U/L CK-MB (CK-2) 1.0 (0.0-2.4) ng/mL CK-MB (CK-2) Rel Index 3.4 Troponin I <0.012 (0.000-0.034) ng/mL NT-Pro-B Natriuret Pep pg/mL Total Protein 6.9 (6.3-8.2) g/dL Albumin 3.9 (3.5-5.0) g/dL 10/03/18 10/03/18 Range/Units 13:40 13:40 WBC (3.8-10.6) k/uL RBC (3.80-5.40) m/uL Hgb (11.4-16.0) gm/dL Hct (34.0-46.0) % MCV (80.0-100.0) fL MCH (25.0-35.0) pg MCHC (31.0-37.0) g/dL RDW (11.5-15.5) % Plt Count (150-450) k/uL Neutrophils % % Lymphocytes % % Monocytes % % Eosinophils % % Basophils % % Neutrophils # (1.3-7.7) k/uL Lymphocytes # (1.0-4.8) k/uL Monocytes # (0-1.0) k/uL Eosinophils # (0-0.7) k/uL Basophils # (0-0.2) k/uL PT 10.0 (9.0-12.0) sec INR 0.9 (<1.2) APTT 24.3 (22.0-30.0) sec Sodium (137-145) mmol/L Potassium (3.5-5.1) mmol/L Chloride (98-107) mmol/L Carbon Dioxide (22-30) mmol/L Anion Gap mmol/L BUN (7-17) mg/dL Creatinine (0.52-1.04) mg/dL Est GFR (CKD-EPI)AfAm (>60 ml/min/1.73 sqM) Est GFR (CKD-EPI)NonAf (>60 ml/min/1.73 sqM) Glucose (74-99) mg/dL Calcium (8.4-10.2) mg/dL Magnesium (1.6-2.3) mg/dL Total Bilirubin (0.2-1.3) mg/dL AST (14-36) U/L ALT (9-52) U/L Alkaline Phosphatase (38-126) U/L Total Creatine Kinase (30-135) U/L CK-MB (CK-2) (0.0-2.4) ng/mL CK-MB (CK-2) Rel Index Troponin I (0.000-0.034) ng/mL NT-Pro-B Natriuret Pep 27 pg/mL Total Protein (6.3-8.2) g/dL Albumin (3.5-5.0) g/dL - Radiology Data Radiology results: image reviewed (Chest x-ray shows left upper lobe consolidation as well as right suprahilar consolidation which appears new) Disposition Clinical Impression: COPD exacerbation, Hypomagnesemia Disposition: HOME SELF-CARE Condition: Stable Instructions: Hypomagnesemia (ED), COPD (Chronic Obstructive Pulmonary Disease ) (ED) Additional Instructions: Please follow-up with primary care physician tomorrow. Please also follow-up with your personnel recruiter tomorrow. You'll need to have magnesium level rechecked within the next week. Continue your home magnesium. Return for difficulty breathing, fevers, chest pain, worsening or change in symptoms or other concerns. Prescriptions: Azithromycin [Zithromax Z-pack] 250 mg PO DIRECTED #6 tab predniSONE 20 mg PO BID #10 tab Is patient prescribed a controlled substance at d/c from ED?: No Referrals: Heber James MD [Primary Care Provider] - 1-2 days Time of Disposition: 16:16
[2018-10-03 14:08] LABS: Basophils # (A) 0.1 k/uL (0-0.2); Basophils % (A) 0 %; Eosinophils # (A) 0.5 k/uL (0-0.7); Eosinophils % (A) 3 %; HCT 39.1 % (34.0-46.0); HGB 12.2 gm/dL (11.4-16.0); Lymphocytes # (A) 4.8 k/uL (1.0-4.8); Lymphocytes % (A) 28 %; MCH 28.4 pg (25.0-35.0); MCHC 31.1 g/dL (31.0-37.0); MCV 91.4 fL (80.0-100.0); Mean Platelet Volume 7.3; Monocytes # (A) 0.9 k/uL (0-1.0); Monocytes % (A) 5 %; Neutrophils # (A) 10.4 k/uL (1.3-7.7); Neutrophils % (A) 60 %; Platelet Count 373 k/uL (150-450); RBC 4.28 m/uL (3.80-5.40); RDW 14.2 % (11.5-15.5); WBC 17.2 k/uL (3.8-10.6)
[2018-10-03 14:18] LABS: INR 0.9 (<1.2); Partial Thromboplastin Time 24.3 sec (22.0-30.0)
[2018-10-03 14:26] LABS: Albumin 3.9 g/dL (3.5-5.0); Calcium 9.1 mg/dL (8.4-10.2); Potassium 3.5 mmol/L (3.5-5.1); Total Bilirubin 0.3 mg/dL (0.2-1.3); Total Protein 6.9 g/dL (6.3-8.2)
[2018-10-03] MEDS ORDERED: FAMOTIDINE 20 MG/2 ML VIAL IV STA (14:31)
[2018-10-03 14:36] LABS: Creatine Kinase 29 U/L (30-135)
[2018-10-03 14:38] LABS: Magnesium 0.7 mg/dL (1.6-2.3)
[2018-10-03 14:47] LABS: Troponin I <0.012 ng/mL (0.000-0.034)
--- NOTE | 2018-10-03 14:58 | XR ---
EXAMINATION TYPE: XR chest 2V DATE OF EXAM: 10/03/2018 COMPARISON: 09/09/2018 HISTORY: Shortness of breath TECHNIQUE: Frontal and lateral views of the chest are obtained. FINDINGS: Scattered senescent parenchymal changes noted. Hyperinflation compatible with COPD. Masslike density left upper lobe persists. Overall appearance is stable at approximately 2.8 x 1.7 cm . Additional area of the consolidation right upper lobe suprahilar region measures 3.3 by approximate ly 1.9 cm. Underlying malignancy not excluded. Correlate with CT and/or PET/CT. Heart size is stable. Mediastinal structures are stable and grossly unremarkable. No evidence for hilar prominence. Degenerative changes dorsal spine. IMPRESSION: 1. Masslike density left upper lobe persists. Overall appearance is stable at approximately 2.8 x 1.7 cm. Additional area of the consolidation right upper lobe suprahilar region measures 3.3 by approxim ately 1.9 cm. Underlying malignancy not excluded. Correlate with CT and/or PET/CT.
[2018-10-03] MEDS: MAGNESIUM SULFATE-D5W PMX 1 GM in DEXTROSE/WATER 1 100ML.BAG IVPB SCH ×3 (15:44→17:48)
[2018-10-03] MEDS ORDERED: Acetaminophen-Codeine 300-30mg TAB PO STA (16:03)
[2018-10-03] MEDS ORDERED: HYDROcodone/APAP 10-325MG 1 EACH TAB PO ONE (16:29)
[2018-10-03 17:53] VITALS: TEMP 97.9
[2018-10-03 19:27] VITALS: BP 100/76; PULSE 95; RESP 24
== END 2018-10-03 19:05 | disposition home or self-care (01) ==
LOC: EC 13:28
DX: J44.1 Chronic obstructive pulmonary disease with (acute) exacerbation (principal); E83.42 Hypomagnesemia; M79.7 Fibromyalgia; I10 Essential (primary) hypertension; M19.90 Unspecified osteoarthritis, unspecified site; F41.9 Anxiety disorder, unspecified; Z87.891 Personal history of nicotine dependence; Z82.5 Family history of asthma and other chronic lower respiratory diseases; Z79.899 Other long term (current) drug therapy; Z91.041 Radiographic dye allergy status; Z88.8 Allergy status to other drugs, medicaments and biological substances; Z88.6 Allergy status to analgesic agent; Z88.2 Allergy status to sulfonamides
CPT/HCPCS: 36415; 94640; 93005; 83880; 80053; 82550; 82553; 83735; 84484; 85025; 85610; 85730; 71046; 99285; 96365; 96366 ×3; 96375 ×3; J2930; J2405; J3475

== ENCOUNTER 2018-10-09 15:24 | Inpatient (IN) | payer BC ==
[2018-10-09] MEDS ORDERED: SODIUM CHLORIDE 0.9% 1,000 ML IV STA ×3 (15:48→18:20)
[2018-10-09] MEDS ORDERED: IPRATROPIUM-ALBUTEROL 3 ML NEB INHALATION STA ×2 (15:48→18:20)
[2018-10-09] MEDS ORDERED: methylPREDNISolone SOD SUCCI 125 MG/2 ML VIAL IV STA (15:48)
[2018-10-09] MEDS ORDERED: SODIUM CHLORIDE 0.9% 500 ML 500 ML IV STA (15:56)
--- NOTE | 2018-10-09 15:56 | ED ---
SOB HPI - General Source: patient, EMS, RN notes reviewed, old records reviewed Mode of arrival: EMS Limitations: physical limitation - History of Present Illness MD Complaint: shortness of breath <Michael Paulino - Last Filed: 10/09/18 16:43> <Wayne Andrade - Last Filed: 10/09/18 18:25> - General Chief Complaint: Shortness of Breath Stated Complaint: Altered Mental status Time Seen by Provider: 10/09/18 15:30 - History of Present Illness Initial Comments: This a 58-year-old female with a history of a recent hospital admission when she was discharged in the fifth of this month was brought back in by EMS today because of shortness of breath weakness some abdominal pain she basically is stated to be a noncompliant patient. Is of a history Crohn's disease with colostomy is a smoker with COPD. Patient at this time the poor historian. She' s had decreased oral intake. (Michael Paulino) - Related Data Home Medications Medication Instructions Recorded Confirmed Adalimumab [Humira Pen] 40 mg SQ TU 06/21/14 10/09/18 busPIRone HCl [Buspar] 10 mg PO BID 05/09/17 10/09/18 Latanoprost Ophth [Xalatan 0.005%] 1 drop BOTH EYES DAILY 05/21/17 10/09/18 Cyanocobalamin [Vitamin B-12 1,000 mcg SQ Q30D 07/24/18 10/09/18 Injection] Dicyclomine [Bentyl] 10 mg PO TID 07/24/18 10/09/18 Ondansetron [Zofran] 4 mg PO Q6H PRN 07/24/18 10/09/18 Albuterol Nebulized [Ventolin 2.5 mg INHALATION RT-TID PRN 09/09/18 10/09/18 Nebulized] Digoxin [Digitek] 125 mcg PO DAILY 09/09/18 10/09/18 Ipratropium-Albuterol Nebulize 3 ml INHALATION RT-Q8H 09/09/18 10/09/18 [Duoneb 0.5 mg-3 mg/3 ml Soln] Loperamide [Imodium] 2 mg PO Q6H PRN 09/09/18 10/09/18 Metoprolol Tartrate [Lopressor] 25 mg PO DAILY 09/09/18 10/09/18 Budesonide 1 mg INHALATION RT-BID 09/27/18 10/09/18 Furosemide [Lasix] 40 mg PO DAILY 09/27/18 10/09/18 Gabapentin [Neurontin] 300 mg PO TID 09/27/18 10/09/18 HYDROcodone/APAP 10-325MG [[place] 1 tab PO Q4H PRN 09/27/18 10/09/18 10-325] Nicotine Polacrilex [Nicorette] 4 mg BUCCAL Q6H PRN 09/27/18 10/09/18 Opium Tincture 10mg/1ml 20 mg PO QID PRN 09/27/18 10/09/18 Potassium Chloride ER [K-Dur 20] 20 meq PO DAILY 09/27/18 10/09/18 Azithromycin [Zithromax Z-pack] See Taper PO DIRECTED 10/09/18 10/09/18 Previous Rx's Medication Instructions Recorded predniSONE 20 mg PO BID #10 tab 10/03/18 Allergies Allergy/AdvReac Type Severity Reaction Status Date / Time Iodinated Contrast- Oral and Allergy Anaphylaxis Verified 10/09/18 16:05 IV Dye pregabalin [From Lyrica] Allergy Unknown Verified 10/09/18 16:05 rofecoxib [From Vioxx] Allergy Unknown Verified 10/09/18 16:05 Sulfa (Sulfonamide Allergy Rash/Hives Verified 10/09/18 16:05 Antibiotics) aspirin AdvReac Internal Verified 10/09/18 16:05 Bleeding timolol [Timolol] AdvReac Nausea & Verified 10/09/18 16:05 Vomiting Review of Systems ROS Other: All systems not noted in ROS Statement are negative. Limitations: ROS unobtainable due to patients medical condition <Michael Paulino - Last Filed: 10/09/18 16:43> ROS Other: All systems not noted in ROS Statement are negative. <Wayne Andrade - Last Filed: 10/09/18 18:25> ROS Statement: Those systems with pertinent positive or pertinent negative responses have been documented in the HPI. Past Medical History Past Medical History: COPD, Fibromyalgia, GERD/Reflux, GI Bleed, Hyperlipidemia , Hypertension, Osteoarthritis (OA), Pneumonia, Syncope Additional Past Medical History / Comment(s): COPD, crohn's, bowel obstructions , lower GI bleeds, hiatal hernia, osteoporosis, arthritis multiple joints, seasonal allergies, right-sided pneumothorax x2; ventilator 07/24/18 - transfer from [facility] r/t [place] History of Any Multi-Drug Resistant Organisms: None Reported Past Surgical History: Breast Surgery, Cholecystectomy, Hernia Repair, Hysterectomy, Orthopedic Surgery Additional Past Surgical History / Comment(s): Multiple bowel surgeries including total colectomy/ileostomy, ileostomy moved/repaired, R tube and R ovary removed due tectopic , total hysterectomy, leep procedure, laparoscopy for endometriosis, L breast lumpectomy-benign, r breast core bx- benign, EGD/colonoscopies. Right-sided Thora-vent placement May 09 and May 19. Eye surgery bilateral,arthroscopic knee surgery on he right due to ACL and Maniscal tear. Past Anesthesia/Blood Transfusion Reactions: No Reported Reaction Past Psychological History: Anxiety Smoking Status: Former smoker Past Alcohol Use History: Unable to Obtain Past Drug Use History: Unable to Obtain - Past Family History Mother Family Medical History: Cancer, COPD, Hypertension Additional Family Medical History / Comment(s): Mother at age 83 from COPD and osteoarthritis and had skin cancer. Father Family Medical History: Cancer, CVA/TIA, Dementia, Diabetes Mellitus Additional Family Medical History / Comment(s): Father is 90yrs old. Brother(s) Family Medical History: Cancer Additional Family Medical History / Comment(s): Patient had 5 brothers and one of them from melanoma. Sister(s) History Unknown: Yes Family Medical History: No Reported History Additional Family Medical History / Comment(s): Patient has one sister. Patient has no kids. <Michael Paulino - Last Filed: 10/09/18 16:43> General Exam Limitations: physical limitation General appearance: alert, lethargic ENT exam: Present: mucous membranes dry Neck exam: Present: other (Well-healed midline neck scar anteriorly) Respiratory exam: Present: decreased breath sounds Cardiovascular Exam: Present: normal rhythm, tachycardia GI/Abdominal exam: Present: soft, other (Colostomy present with equal: Tenderness to palpation) Extremities exam: Present: full ROM, normal capillary refill Back exam: Present: normal inspection Neurological exam: Present: alert, oriented X3, CN II-XII intact. Absent: motor sensory deficit Psychiatric exam: Present: flat affect Skin exam: Present: warm, dry, intact, normal color <Michael Paulino - Last Filed: 10/09/18 16:43> General appearance: alert, anxious, lethargic Head exam: Present: atraumatic, normocephalic, normal inspection Eye exam: Present: normal appearance, PERRL, EOMI. Absent: scleral icterus, conjunctival injection, periorbital swelling ENT exam: Present: normal exam, mucous membranes dry Neck exam: Present: normal inspection. Absent: tenderness, meningismus, lymphadenopathy Respiratory exam: Present: respiratory distress, wheezes, accessory muscle use, decreased breath sounds. Absent: rales, rhonchi, stridor Cardiovascular Exam: Present: normal rhythm, tachycardia, normal heart sounds. Absent: systolic murmur, diastolic murmur, rubs, gallop, clicks GI/Abdominal exam: Present: soft, normal bowel sounds. Absent: distended, tenderness, guarding, rebound, rigid Extremities exam: Present: normal inspection, full ROM, normal capillary refill. Absent: tenderness, pedal edema, joint swelling, calf tenderness Back exam: Present: normal inspection Neurological exam: Present: alert, oriented X3, CN II-XII intact Psychiatric exam: Present: normal affect, normal mood, depressed Skin exam: Present: warm, dry, intact, normal color. Absent: rash <Wayne Andrade - Last Filed: 10/09/18 18:25> - General Exam Comments Initial Comments: This a well-developed sec appearing female awake alert but lethargic. (Michael Paulino) Course <Michael Paulino - Last Filed: 10/09/18 16:43> <Wayne Andrade - Last Filed: 10/09/18 18:25> Vital Signs 10/09/18 10/09/18 10/09/18 15:29 15:45 16:05 Temperature 98.5 F Pulse Rate 139 H 134 H Respiratory 28 H 28 H Rate Blood Pressure 137/108 O2 Sat by Pulse 95 Oximetry 10/09/18 10/09/18 16:15 16:21 Temperature 98.1 F Pulse Rate 122 H 118 H Respiratory 22 Rate Blood Pressure 134/102 O2 Sat by Pulse 97 Oximetry - Reevaluation(s) Reevaluation #1: 10/09/18 16:43 The patient's care will be endorsed to Dr. Andrade at our shift change (Michael Paulino) Medical Decision Making - Lab Data Result diagrams: 10/09/18 15:34 10/09/18 15:34 - EKG Data -: EKG Interpreted by [place] EKG shows normal: sinus rhythm (Sinus tachycardia rate 109. Interval 118 QRS duration 64 QT/QTC 288/387 right atrial enlargement pulmonary disease pattern noted) <Michael Paulino - Last Filed: 10/09/18 16:43> - Lab Data Result diagrams: 10/09/18 15:34 10/09/18 15:34 - Radiology Data Radiology results: report reviewed (Chest x-rays negative), image reviewed <Wayne Andrade - Last Filed: 10/09/18 18:25> - Medical Decision Making 58 female the ER with recurrent COPD exacerbation severe, not taking medication , failure to thrive and weakness. Tachycardic in the 130s with significant shortness of breath, will admit for breathing treatments (Wayne Andrade) - Lab Data Lab Results 10/09/18 10/09/18 10/09/18 Range/Units 15:34 15:34 15:34 WBC 12.7 H (3.8-10.6) k/uL RBC 4.93 (3.80-5.40) m/uL Hgb 14.2 (11.4-16.0) gm/dL Hct 45.1 (34.0-46.0) % MCV 91.6 (80.0-100.0) fL MCH 28.8 (25.0-35.0) pg MCHC 31.5 (31.0-37.0) g/dL RDW 13.9 (11.5-15.5) % Plt Count 457 H (150-450) k/uL Neutrophils % 61 % Lymphocytes % 29 % Monocytes % 7 % Eosinophils % 1 % Basophils % 0 % Neutrophils # 7.7 (1.3-7.7) k/uL Lymphocytes # 3.7 (1.0-4.8) k/uL Monocytes # 0.9 (0-1.0) k/uL Eosinophils # 0.1 (0-0.7) k/uL Basophils # 0.0 (0-0.2) k/uL Hypochromasia Slight PT (9.0-12.0) sec INR (<1.2) APTT (22.0-30.0) sec Sodium 144 (137-145) mmol/L Potassium 4.3 (3.5-5.1) mmol/L Chloride 96 L (98-107) mmol/L Carbon Dioxide 38 H (22-30) mmol/L Anion Gap 10 mmol/L BUN 25 H (7-17) mg/dL Creatinine 0.71 (0.52-1.04) mg/dL Est GFR (CKD-EPI)AfAm >90 (>60 ml/min/1.73 sqM) Est GFR (CKD-EPI)NonAf >90 (>60 ml/min/1.73 sqM) Glucose 117 H (74-99) mg/dL Calcium 11.1 H (8.4-10.2) mg/dL Magnesium 1.9 (1.6-2.3) mg/dL Total Bilirubin 0.6 (0.2-1.3) mg/dL AST 78 H (14-36) U/L ALT 140 H (9-52) U/L Alkaline Phosphatase 126 (38-126) U/L Total Creatine Kinase <20 L (30-135) U/L CK-MB (CK-2) 0.9 (0.0-2.4) ng/mL CK-MB (CK-2) Rel Index Troponin I <0.012 (0.000-0.034) ng/mL NT-Pro-B Natriuret Pep pg/mL Total Protein 7.8 (6.3-8.2) g/dL Albumin 4.4 (3.5-5.0) g/dL Triglycerides 207 H (<150) mg/dL Cholesterol 198 (<200) mg/dL LDL Cholesterol, Calc 91 (0-99) mg/dL HDL Cholesterol 66 H (40-60) mg/dL Amylase 42 (30-110) U/L Lipase 156 (23-300) U/L Serum Alcohol <10 mg/dL 10/09/18 10/09/18 Range/Units 15:34 15:34 WBC (3.8-10.6) k/uL RBC (3.80-5.40) m/uL Hgb (11.4-16.0) gm/dL Hct (34.0-46.0) % MCV (80.0-100.0) fL MCH (25.0-35.0) pg MCHC (31.0-37.0) g/dL RDW (11.5-15.5) % Plt Count (150-450) k/uL Neutrophils % % Lymphocytes % % Monocytes % % Eosinophils % % Basophils % % Neutrophils # (1.3-7.7) k/uL Lymphocytes # (1.0-4.8) k/uL Monocytes # (0-1.0) k/uL Eosinophils # (0-0.7) k/uL Basophils # (0-0.2) k/uL Hypochromasia PT 10.6 (9.0-12.0) sec INR 1.0 (<1.2) APTT 24.2 (22.0-30.0) sec Sodium (137-145) mmol/L Potassium (3.5-5.1) mmol/L Chloride (98-107) mmol/L Carbon Dioxide (22-30) mmol/L Anion Gap mmol/L BUN (7-17) mg/dL Creatinine (0.52-1.04) mg/dL Est GFR (CKD-EPI)AfAm (>60 ml/min/1.73 sqM) Est GFR (CKD-EPI)NonAf (>60 ml/min/1.73 sqM) Glucose (74-99) mg/dL Calcium (8.4-10.2) mg/dL Magnesium (1.6-2.3) mg/dL Total Bilirubin (0.2-1.3) mg/dL AST (14-36) U/L ALT (9-52) U/L Alkaline Phosphatase (38-126) U/L Total Creatine Kinase (30-135) U/L CK-MB (CK-2) (0.0-2.4) ng/mL CK-MB (CK-2) Rel Index Troponin I (0.000-0.034) ng/mL NT-Pro-B Natriuret Pep 59 pg/mL Total Protein (6.3-8.2) g/dL Albumin (3.5-5.0) g/dL Triglycerides (<150) mg/dL Cholesterol (<200) mg/dL LDL Cholesterol, Calc (0-99) mg/dL HDL Cholesterol (40-60) mg/dL Amylase (30-110) U/L Lipase (23-300) U/L Serum Alcohol mg/dL Disposition <Michael Paulino - Last Filed: 10/09/18 16:43> Is patient prescribed a controlled substance at d/c from ED?: No <Wayne Andrade - Last Filed: 10/09/18 18:25> Clinical Impression: COPD exacerbation, Asthma with exacerbation, Dehydration, Acute vomiting Disposition: ADMITTED IP TO THIS HOSP Condition: Fair Referrals: Heber James MD [Primary Care Provider] - 1-2 days
[2018-10-09 16:20] LABS: Basophils % (A) 0 %; Eosinophils # (A) 0.1 k/uL (0-0.7); Eosinophils % (A) 1 %; HCT 45.1 % (34.0-46.0); HGB 14.2 gm/dL (11.4-16.0); Hypochromasia Slight; Lymphocytes # (A) 3.7 k/uL (1.0-4.8); Lymphocytes % (A) 29 %; MCH 28.8 pg (25.0-35.0); MCHC 31.5 g/dL (31.0-37.0); MCV 91.6 fL (80.0-100.0); Mean Platelet Volume 7.2; Monocytes # (A) 0.9 k/uL (0-1.0); Monocytes % (A) 7 %; Neutrophils # (A) 7.7 k/uL (1.3-7.7); Neutrophils % (A) 61 %; Platelet Count 457 k/uL (150-450); RBC 4.93 m/uL (3.80-5.40); RDW 13.9 % (11.5-15.5); WBC 12.7 k/uL (3.8-10.6)
[2018-10-09 16:25] LABS: Partial Thromboplastin Time 24.2 sec (22.0-30.0); Prothrombin Time 10.6 sec (9.0-12.0)
[2018-10-09 16:26] LABS: ALT 140 U/L (9-52); AST 78 U/L (14-36); Albumin 4.4 g/dL (3.5-5.0); Alcohol <10 mg/dL; Alkaline Phosphatase 126 U/L (38-126); Amylase 42 U/L (30-110); Anion Gap 10 mmol/L; Blood Urea Nitrogen 25 mg/dL (7-17); Calcium 11.1 mg/dL (8.4-10.2); Carbon Dioxide 38 mmol/L (22-30); Chloride 96 mmol/L (98-107); Cholesterol 198 mg/dL (<200); Glucose 117 mg/dL (74-99); HDL Cholesterol 66 mg/dL (40-60); LDL Cholesterol,Calculated 91 mg/dL (0-99); Lipase 156 U/L (23-300); Magnesium 1.9 mg/dL (1.6-2.3); Potassium 4.3 mmol/L (3.5-5.1); Sodium 144 mmol/L (137-145); Total Bilirubin 0.6 mg/dL (0.2-1.3); Total Protein 7.8 g/dL (6.3-8.2); Triglycerides 207 mg/dL (<150)
[2018-10-09] MEDS ORDERED: HYDROcodone/APAP 10-325MG 1 EACH TAB PO ONE (16:34)
[2018-10-09 16:41] LABS: Creatine Kinase <20 U/L (30-135)
--- NOTE | 2018-10-09 16:48 | XR ---
EXAMINATION: XR chest - 3V DATE AND TIME: 10/09/2018 4:34 PM CLINICAL INDICATION: PHH; difficulty breathing TECHNIQUE: Frontal and 2 lateral views. COMPARISON: 10/03/2018 FINDINGS: Extensive bullous emphysematous changes redemonstrated. The previously seen bilateral opaci ties are redemonstrated. The lateral views also redemonstrate the previously seen prominent compressi ve atelectasis. These pulmonary findings limit the radiographic sensitivity for diagnosing pleural-pa renchymal disease. Given these limitations, no definite new lung or pleural parenchymal process is seen. CT can further characterize if necessary clinically. Cardiomediastinal silhouette and bones and soft tissues are unremarkable. IMPRESSION: STABLE ABNORMALITIES, DISCUSSED. .
[2018-10-09 16:54] LABS: Creatine Kinase MB 0.9 ng/mL (0.0-2.4); Troponin I <0.012 ng/mL (0.000-0.034)
[2018-10-09] MEDS ORDERED: LORazepam 2 MG/ML INJ IV STA (18:20)
[2018-10-09] MEDS ORDERED: MORPHINE SULFATE 4 MG/ML SYRINGE IVP STA (18:20)
[2018-10-09 19:04] LABS: Appearance,Urine Clear (Clear); Bilirubin,Urine Negative (Negative); Blood,Urine Negative (Negative); Color,Urine Yellow; Glucose,Urine (UA) Negative (Negative); Hyaline Casts,Urine 1 /lpf (0-2); Ketones,Urine 1+ (Negative); Leukocyte Esterase,Urine Negative (Negative); Mucus,Urine Rare /hpf; Nitrite,Urine Negative (Negative); PH, Urine 6.5 (5.0-8.0); Protein,Urine 1+ (Negative); RBC,Urine 3 /hpf (0-5); Urobilinogen,Urine <2.0 mg/dL (<2.0); WBC,Urine 1 /hpf (0-5)
[2018-10-09 19:11] LABS: Cocaine Screen,Urine Not Detected (NotDetected); Phencyclidine Screen,Urine Not Detected (NotDetected); Urn Cannabinoid Scrn Not Detected (NotDetected)
[2018-10-09 19:12] LABS: Amphetamine Screen,Urine Not Detected (NotDetected); Barbiturate Screen,Urine Not Detected (NotDetected); Benzodiazepines Screen,Urine Not Detected (NotDetected); Methadone Screen, Urine Not Detected (NotDetected); Opiate Screen,Urine Detected (NotDetected); Oxycodone Screen, Urine Not Detected (NotDetected); Tricyclic Antidepressant,Urine Not Detected (NotDetected)
[2018-10-09 19:26] LABS: ABG Base Excess 9.4 mmol/L; ABG HCO3 34 mmol/L (21-25); ABG Oxygen Saturation 92.4 % (94-97); ABG PCO2 53 mmHg (35-45); ABG PH 7.42 (7.35-7.45); ABG PO2 62 mmHg (83-108); ABG TCO2 36 mmol/L (19-24)
[2018-10-09] MEDS: IPRATROPIUM-ALBUTEROL 3 ML NEB INHALATION SCH (21:47)
[2018-10-09] MEDS: MORPHINE SULFATE 4 MG/ML SYRINGE IVP PRN (22:04)
[2018-10-09] MEDS ORDERED: LOPERAMIDE 2 MG CAP PO PRN (22:10)
[2018-10-09] MEDS ORDERED: NICOTINE POLACRILEX 2 MG GUM BUCCAL PRN (22:10)
[2018-10-09] MEDS ORDERED: ONDANSETRON 4 MG TAB PO PRN (22:10)
[2018-10-09] MEDS ORDERED: CYANOCOBALAMIN 1,000 MCG/ML 1 ML VIAL SQ SCH (22:15)
[2018-10-09] MEDS: ADALIMUMAB 40 MG SQ SCH (22:35)
[2018-10-09] MEDS: LATANOPROST 0.005% OPHTH DROPS 2.5 ML BTL BOTH EYES SCH (23:23)
[2018-10-09] MEDS: busPIRone HCl 10 MG TAB PO SCH (23:23)
[2018-10-09] MEDS: MELATONIN 5 MG TABLET PO PRN (23:23)
[2018-10-09] MEDS: GABAPENTIN 300 MG CAP PO SCH (23:24)
[2018-10-09] MEDS: methylPREDNISolone SOD SUCCI 125 MG/2 ML VIAL IV SCH (23:25)
[2018-10-09] MEDS: DICYCLOMINE 10 MG CAP PO SCH (23:25)
[2018-10-10] MEDS: MORPHINE SULFATE 4 MG/ML SYRINGE IVP PRN ×5 (03:28→20:53)
[2018-10-10] MEDS: methylPREDNISolone SOD SUCCI 125 MG/2 ML VIAL IV SCH ×4 (05:10→23:11)
[2018-10-10] MEDS: BUDESONIDE 1 MG/2 ML NEBU INHALATION SCH ×2 (06:58→19:23)
[2018-10-10] MEDS: IPRATROPIUM-ALBUTEROL 3 ML NEB INHALATION SCH ×4 (06:58→19:23)
[2018-10-10] MEDS: DIGOXIN 125 MCG TAB PO SCH (08:43)
[2018-10-10] MEDS: busPIRone HCl 10 MG TAB PO SCH (08:44)
[2018-10-10] MEDS: POTASSIUM CHLORIDE ER 20 MEQ TAB.ER PO SCH (08:44)
[2018-10-10] MEDS: DICYCLOMINE 10 MG CAP PO SCH ×3 (08:44→22:16)
[2018-10-10] MEDS: FUROSEMIDE 40 MG TAB PO SCH (08:44)
[2018-10-10] MEDS: ENOXAPARIN 40 MG/0.4 ML SYRINGE SQ SCH (08:44)
[2018-10-10] MEDS: HYDROcodone/APAP 10-325MG 1 EACH TAB PO PRN ×4 (08:44→23:10)
[2018-10-10] MEDS: GABAPENTIN 300 MG CAP PO SCH ×3 (08:45→22:16)
[2018-10-10] MEDS: METOPROLOL TARTRATE 25 MG TAB PO SCH (09:53)
[2018-10-10] MEDS: ESCITALOPRAM 5 MG TAB PO SCH (11:02)
[2018-10-10 11:55] VITALS: BMI 19.0
--- NOTE | 2018-10-10 12:05 | P.HPIM ---
History of Present Illness H&P Date: 10/10/18 Chief Complaint: acute COPD exacerbation this is a 58-year-old pleasant female patient of Dr. Heber James. She has underlying history of severe COPD, fibromyalgia, Crohn's disease with ileostomy , previous right-sided pneumothorax, chronic left upper lobe inflammatory opacification followed by Dr. 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 Mistry treated with Breo ellipta and albuterol in the outpatient setting. Also required home O2, she was transferred from [facility], admitted there 07/18/2018 secondary to COPD exacerbation. Patient required mechanical ventilation on admission as they were planning to have Trach and PEG but they noticed large Bullous disease on the left side and because of pneumothorax concerns she was transferred at that time to [facility] for evaluation by thoracic surgery and she ended-up getting her Trach and PEG tubbe and she developped to have critical illness myopathy was treated with IVIG and and she was transferred to [facility] for sometime then sent to [facility] , patient was there for about 10 days and after that she was discharged because of insurance coverage and went to her sister's house [place] where she is the primary caregiver for her and herself as she cannot go back to her house which is a trilevel house with a temperature 67, patient apparently has not been taking her medication over the last 24 hours, yesterday she felt extremely short of breath than she was extremely anxious and depressed EMS was called and the patient was brought into the ER at [facility] where she was found to have a sinus tachycardia with significant dyspnea she was given Solu-Medrol nebulized treatment and she was admitted to the hospital, pulmonary consultation was obtained from . Review of Systems Constitutional: Reports anorexia, Reports chronic headaches, Reports chronic pain, Reports fatigue, Reports malaise, Reports weakness, Reports weight loss Eyes: denies blurred vision, denies bulging eye, denies decreased vision Ears: deny: decreased hearing Ears, nose, mouth and throat: Denies dysphagia, Denies neck lump, Denies swelling in throat, Denies sore throat, Denies vertigo Cardiovascular: Reports dyspnea on exertion, Reports high blood pressure, Reports rapid heart beat, Reports shortness of breath, Denies chest pain, Denies phlebitis, Denies syncope Gastrointestinal: Reports abdominal pain, Reports bloating, Reports diarrhea, Reports loss of appetite, Reports nausea, Denies heartburn, Denies melena, Denies vomiting Genitourinary: Denies dysuria, Denies urgency Musculoskeletal: Reports atrophy, Reports gait dysfunction Musculoskeletal: absent: ankle pain, ankle stiffness, ankle swelling, elbow pain , elbow stiffness, elbow swelling, foot pain, foot stiffness, foot swelling, hand pain, hand stiffness, hand swelling, hip pain, hip stiffness, hip swelling , knee pain, knee stiffness, knee swelling, shoulder pain, shoulder stiffness, shoulder swelling, wrist pain, wrist stiffness, wrist swelling Integumentary: Denies pruritus, Denies rash Neurological: Denies numbness, Denies weakness Psychiatric: Denies anxiety, Denies depression Endocrine: Denies fatigue, Denies weight change Past Medical History Past Medical History: COPD, Fibromyalgia, GERD/Reflux, GI Bleed, Hyperlipidemia , Hypertension, Osteoarthritis (OA), Pneumonia, Syncope Additional Past Medical History / Comment(s): in past took meds for high blood pressure.COPD-02 3 liters n/c atc, crohn's, bowel obstructions, lower GI bleeds , hiatal hernia, osteoporosis, arthritis multiple joints, seasonal allergies, right-sided pneumothorax x2; ventilator 07/24/18 - transfer from [facility] r/t leelee History of Any Multi-Drug Resistant Organisms: None Reported Past Surgical History: Breast Surgery, Cholecystectomy, Hernia Repair, Hysterectomy, Orthopedic Surgery Additional Past Surgical History / Comment(s): Multiple bowel surgeries including total colectomy/ileostomy, ileostomy moved/repaired, R tube and R ovary removed due tectopic , total hysterectomy, leep procedure, laparoscopy for endometriosis, L breast lumpectomy-benign, r breast core bx- benign, EGD/colonoscopies. Right-sided Thora-vent placement May 09 and May 19. Eye surgery bilateral,arthroscopic knee surgery on he right due to ACL and Maniscal tear. Past Anesthesia/Blood Transfusion Reactions: No Reported Reaction Smoking Status: Former smoker - Past Family History Mother Family Medical History: Cancer, COPD, Hypertension Additional Family Medical History / Comment(s): Mother at age 83 from COPD and osteoarthritis and had skin cancer. Father Family Medical History: Cancer, CVA/TIA, Dementia, Diabetes Mellitus Additional Family Medical History / Comment(s): Father is 90yrs old. Brother(s) Family Medical History: Cancer Additional Family Medical History / Comment(s): Patient had 5 brothers and one of them from melanoma. Sister(s) History Unknown: Yes Family Medical History: No Reported History Additional Family Medical History / Comment(s): Patient has one sister. Patient has no kids. Medications and Allergies Home Medications Medication Instructions Recorded Confirmed Type Adalimumab [Humira Pen] 40 mg SQ TU 06/21/14 10/09/18 History busPIRone HCl [Buspar] 10 mg PO BID 05/09/17 10/09/18 History Latanoprost Ophth [Xalatan 0.005%] 1 drop BOTH EYES DAILY 05/21/17 10/09/18 History Cyanocobalamin [Vitamin B-12 1,000 mcg SQ Q30D 07/24/18 10/09/18 History Injection] Dicyclomine [Bentyl] 10 mg PO TID 07/24/18 10/09/18 History Ondansetron [Zofran] 4 mg PO Q6H PRN 07/24/18 10/09/18 History Albuterol Nebulized [Ventolin 2.5 mg INHALATION RT-TID PRN 09/09/18 10/09/18 History Nebulized] Digoxin [Digitek] 125 mcg PO DAILY 09/09/18 10/09/18 History Ipratropium-Albuterol Nebulize 3 ml INHALATION RT-Q8H 09/09/18 10/09/18 History [Duoneb 0.5 mg-3 mg/3 ml Soln] Loperamide [Imodium] 2 mg PO Q6H PRN 09/09/18 10/09/18 History Metoprolol Tartrate [Lopressor] 25 mg PO DAILY 09/09/18 10/09/18 History Budesonide 1 mg INHALATION RT-BID 09/27/18 10/09/18 History Furosemide [Lasix] 40 mg PO DAILY 09/27/18 10/09/18 History Gabapentin [Neurontin] 300 mg PO TID 09/27/18 10/09/18 History HYDROcodone/APAP 10-325MG [[place] 1 tab PO Q4H PRN 09/27/18 10/09/18 History 10-325] Nicotine Polacrilex [Nicorette] 4 mg BUCCAL Q6H PRN 09/27/18 10/09/18 History Opium Tincture 10mg/1ml 20 mg PO QID PRN 09/27/18 10/09/18 History Potassium Chloride ER [K-Dur 20] 20 meq PO DAILY 09/27/18 10/09/18 History predniSONE 20 mg PO BID #10 tab 10/03/18 10/09/18 Rx Azithromycin [Zithromax Z-pack] See Taper PO DIRECTED 10/09/18 10/09/18 History Allergies Allergy/AdvReac Type Severity Reaction Status Date / Time Iodinated Contrast- Oral and Allergy Anaphylaxis Verified 10/09/18 16:05 IV Dye pregabalin [From Lyrica] Allergy Unknown Verified 10/09/18 16:05 rofecoxib [From Vioxx] Allergy Unknown Verified 10/09/18 16:05 Sulfa (Sulfonamide Allergy Rash/Hives Verified 10/09/18 16:05 Antibiotics) aspirin AdvReac Internal Verified 10/09/18 16:05 Bleeding timolol [Timolol] AdvReac Nausea & Verified 10/09/18 16:05 Vomiting Physical Exam Vitals: Vital Signs Temp Pulse Pulse Resp BP BP Pulse Ox 10/10/18 11:29 88 10/10/18 11:16 84 10/10/18 07:10 97.5 F L 87 16 110/63 98 10/10/18 07:09 86 10/10/18 06:58 84 10/10/18 01:03 98.1 F 78 16 90/54 97 10/09/18 20:00 93 20 108/87 98 10/09/18 19:39 105 H 10/09/18 19:31 84 10/09/18 19:30 83 18 122/73 100 10/09/18 19:22 82 10/09/18 19:00 61 18 126/89 99 10/09/18 18:30 90 23 118/88 98 10/09/18 18:00 97 19 136/105 98 10/09/18 17:30 102 H 48 H 142/93 99 10/09/18 17:00 79 27 H 100 10/09/18 16:30 134/102 10/09/18 16:21 98.1 F 118 H 22 134/102 97 10/09/18 16:15 122 H 10/09/18 16:05 134 H 10/09/18 15:45 28 H 10/09/18 15:29 98.5 F 139 H 28 H 137/108 95 Intake and Output 10/09/18 10/10/18 10/10/18 22:59 06:59 14:59 Intake Total 350 900 Balance 350 900 Intake: Intake, IV Titration 350 900 Amount Sodium Chloride 0.9% 1, 350 900 000 ml @ 100 mls/hr IV . Q10H STA Rx#:[id number] Other: Voiding Method Toilet Toilet Bedside Commode Bedside Commode Bedpan Bedpan # Voids 1 2 Weight 47.174 kg 47.174 kg - Constitutional General appearance: mild distress, thin - EENT Eyes: anicteric sclerae, EOMI, PERRLA, no ptosis, no scleral icterus, normal appearance ENT: hearing grossly normal, normal oropharynx, no thrush - Neck Neck: no lymphadenopathy, normal ROM, no rigidity, no stridor Carotids: bilateral: upstroke normal Thyroid: bilateral: normal size - Respiratory Respiratory: bilateral: diminished, wheezing, prolonged expiration, negative: dullness, rales, rhonchi - Cardiovascular Rhythm: regular Heart sounds: normal: S1, S2 Abnormal Heart Sounds: systolic murmur, no S3 Gallop - Gastrointestinal General gastrointestinal: hyperactive bowel sounds, soft, tenderness (ileostomy bag in place.) - Integumentary Integumentary: normal, normal turgor - Neurologic Neurologic: CNII-XII intact - Musculoskeletal Musculoskeletal: generalized weakness, strength equal bilaterally - Psychiatric Psychiatric: A&O x's 3, no appropriate affect, intact judgment & insight Results CBC & Chem 7: 10/09/18 15:34 10/09/18 15:34 Labs: Abnormal Lab Results - Last 24 Hours (Table) 10/09/18 10/09/18 10/09/18 Range/Units 15:34 15:34 15:34 WBC 12.7 H (3.8-10.6) k/uL Plt Count 457 H (150-450) k/uL ABG pCO2 (35-45) mmHg ABG pO2 (83-108) mmHg ABG HCO3 (21-25) mmol/L ABG Total CO2 (19-24) mmol/L ABG O2 Saturation (94-97) % Chloride 96 L (98-107) mmol/L Carbon Dioxide 38 H (22-30) mmol/L BUN 25 H (7-17) mg/dL Glucose 117 H (74-99) mg/dL Calcium 11.1 H (8.4-10.2) mg/dL AST 78 H (14-36) U/L ALT 140 H (9-52) U/L Total Creatine Kinase <20 L (30-135) U/L Triglycerides 207 H (<150) mg/dL HDL Cholesterol 66 H (40-60) mg/dL Urine Protein (Negative) Urine Ketones (Negative) Urine Mucus (None) /hpf Urine Opiates Screen (NotDetected) 10/09/18 10/09/18 Range/Units 18:50 19:20 WBC (3.8-10.6) k/uL Plt Count (150-450) k/uL ABG pCO2 53 H (35-45) mmHg ABG pO2 62 L (83-108) mmHg ABG HCO3 34 H (21-25) mmol/L ABG Total CO2 36 H (19-24) mmol/L ABG O2 Saturation 92.4 L (94-97) % Chloride (98-107) mmol/L Carbon Dioxide (22-30) mmol/L BUN (7-17) mg/dL Glucose (74-99) mg/dL Calcium (8.4-10.2) mg/dL AST (14-36) U/L ALT (9-52) U/L Total Creatine Kinase (30-135) U/L Triglycerides (<150) mg/dL HDL Cholesterol (40-60) mg/dL Urine Protein 1+ H (Negative) Urine Ketones 1+ H (Negative) Urine Mucus Rare H (None) /hpf Urine Opiates Screen Detected H (NotDetected) Thrombosis Risk Factor Assmnt - DVT/VTE Prophylaxis DVT/VTE Prophylaxis: Pharmacologic Prophylaxis ordered, Mechanical Prophylaxis ordered - Choose All That Apply Any of the Below Risk Factors Present?: Yes Each Factor Represents 1 point: Abnormal pulmonary function (COPD), Age 41-60 years Thrombosis Risk Factor Assessment Total Risk Factor Score: 2 Thrombosis Risk Factor Assessment Level: Low Risk Assessment and Plan Assessment: Assessment and plan: 1. Acute respiratory failure due to acute COPD exacerbation. Continue patient on Solu-Medrol 60 minute gram IV push every 6 hours, nebulized treatment DuoNeb 3 mL nebulization 4 times every day, Pulmicort 1 mg nebulization twice every day , pulmonary consultation, patient may be a candidate for lobectomy after discussing the case with Dr. Cintron due to her significant bullous disease and/ or pulmonary rehabilitation. 2. Debility due to a chronic medical illnesses. Physical therapy evaluation. 3. Chronic hypoxemic and hypercapneic respiratory failure requiring mechanical ventilation in the past and Trach which has since removed. we will continue with aggresive pulmonary toileting with Duoneb and Mucomyst we will consult for left upper lobe Consolidative process. 4. Moderate protein calorie malnutrition. we will continue with protein supplement. 5. H/O critical illness myopathy post IVIG infusion and will consult PT and OT. 6. History of Crohn's, has ileostomy on the right side. we will continue with Humira 40 mg SC q week, we will continue with Opium Tincture 2 ml po QID scheduled. 7. Generalized anxiety disorder. we will continue and increase BuSpar to 15 mg orally twice every day as well as add Lexapro 5 minute gram orally once every day. 8. Fibromyalgia with bilateral neuropathy. we will continue with Gabapentin 300 mg orally tid. 9. Sinus tachycardia. we will continue with Metoprolol 25 mg orally tid. 10. Vitamin D deficiency. we will continue with Vit D 1000 units orally daily. 11. B12 deficiency. we will continue with B12 1000 mcg sc q month. 12. Glaucoma. we will continue with Xalatan . 13. Hypomagnesemia. will continue with magnesium oxide. 14. DVT prophylaxis. we will continue with Lovenox 40 mg subcutaneously every day. 15. GI prophylaxis. we will continue with protonix 40 mg orally daily. 16. Admit to inpatient . estimated length of stay 2 midnights. 17. Full code.
[2018-10-10] MEDS: LATANOPROST 0.005% OPHTH DROPS 2.5 ML BTL BOTH EYES SCH ×2 (12:24→22:16)
[2018-10-10] MEDS: LORazepam 2 MG/ML INJ IV PRN ×2 (12:34→22:17)
--- NOTE | 2018-10-10 15:13 | P.CNPUL ---
History of Present Illness Consult date: 10/10/18 Requesting physician: Cornelius Merchant Reason for consult: dyspnea, other Chief complaint: Increased shortness of breath, weakness, abdominal pain History of present illness: This is a 58-year-old white female patient of Dr. James, who is well-known to our service from her previous admissions for complications related to her advanced bullous emphysema, was brought into the emergency department per ambulance on 10/09/2018 for evaluation of increasing shortness of breath, weakness, abdominal pain. She reportedly stopped taking her medications, she has been very depressed lately about her overall condition, oral intake has been poor. She was seen in the emergency department on 10/03/2018 for episode of shortness of breath that was thought to be related to exacerbation of COPD patient was treated and discharged home on oral Z-Leland and prednisone taper. Chest x-ray then showed done chronic left upper lobe density stable in appearance and stable right upper lobe consolidation. She was recently hospitalized in August for dehydration, related to emesis and diarrhea. Patient has a history of Crohn's disease with the diverting ileostomy. A few months ago patient suffered episode of acute respiratory failure related to exacerbation of COPD, requiring mechanical ventilation, and patient was trached and pegged following a prolonged recovery, [facility] she was successfully weaned off the vent and decannulated. Patient has history of severe oxygen-dependent COPD with bullous emphysema with FEV1 of 36% of predicted, chronic left upper lobe inflammatory opacity which was nonmalignant, history of hyperlipidemia hypothyroidism, anemia, fibromyalgia , anxiety and depression. Patient denied any fever or chills, and chest congestion, phlegm production. Chest X-ray from 10/09/2018 showed stable chronic findings with extensive bullous emphysematous changes, compressive atelectasis and bilateral lobe opacities. Lab work did not show any significant leukocytosis, WBC was 12.7, hemoglobin is 14.2, sodium is 144, potassium is 4.3, chloride is 96, CO2 is 38, BUN is 25 creatinine 0.71 Review of Systems All systems: negative Constitutional: Denies chills, Denies fever Eyes: denies blurred vision, denies pain Ears, nose, mouth and throat: Denies headache, Denies sore throat Cardiovascular: Denies chest pain, Denies shortness of breath Respiratory: Reports dyspnea, Reports home oxygen, Denies cough Gastrointestinal: Reports abdominal pain, Denies diarrhea, Denies nausea, Denies vomiting Genitourinary: Denies dysuria, Denies hematuria Musculoskeletal: Denies myalgias Integumentary: Denies pruritus, Denies rash Neurological: Denies numbness, Denies weakness Psychiatric: Denies anxiety, Denies depression Endocrine: Denies fatigue, Denies weight change Past Medical History Past Medical History: COPD, Fibromyalgia, GERD/Reflux, GI Bleed, Hyperlipidemia , Hypertension, Osteoarthritis (OA), Pneumonia, Syncope Additional Past Medical History / Comment(s): in past took meds for high blood pressure.COPD-02 3 liters n/c atc, crohn's, bowel obstructions, lower GI bleeds , hiatal hernia, osteoporosis, arthritis multiple joints, seasonal allergies, right-sided pneumothorax x2; ventilator 07/24/18 - transfer from [facility] r/t bollas History of Any Multi-Drug Resistant Organisms: None Reported Past Surgical History: Breast Surgery, Cholecystectomy, Hernia Repair, Hysterectomy, Orthopedic Surgery Additional Past Surgical History / Comment(s): Multiple bowel surgeries including total colectomy/ileostomy, ileostomy moved/repaired, R tube and R ovary removed due tectopic , total hysterectomy, leep procedure, laparoscopy for endometriosis, L breast lumpectomy-benign, r breast core bx- benign, EGD/colonoscopies. Right-sided Thora-vent placement May 09 and May 19. Eye surgery bilateral,arthroscopic knee surgery on he right due to ACL and Maniscal tear. Past Anesthesia/Blood Transfusion Reactions: No Reported Reaction Smoking Status: Former smoker - Past Family History Mother Family Medical History: Cancer, COPD, Hypertension Additional Family Medical History / Comment(s): Mother at age 83 from COPD and osteoarthritis and had skin cancer. Father Family Medical History: Cancer, CVA/TIA, Dementia, Diabetes Mellitus Additional Family Medical History / Comment(s): Father is 90yrs old. Brother(s) Family Medical History: Cancer Additional Family Medical History / Comment(s): Patient had 5 brothers and one of them from melanoma. Sister(s) History Unknown: Yes Family Medical History: No Reported History Additional Family Medical History / Comment(s): Patient has one sister. Patient has no kids. Medications and Allergies Home Medications Medication Instructions Recorded Confirmed Type Adalimumab [Humira Pen] 40 mg SQ TU 06/21/14 10/09/18 History busPIRone HCl [Buspar] 10 mg PO BID 05/09/17 10/09/18 History Latanoprost Ophth [Xalatan 0.005%] 1 drop BOTH EYES DAILY 05/21/17 10/09/18 History Cyanocobalamin [Vitamin B-12 1,000 mcg SQ Q30D 07/24/18 10/09/18 History Injection] Dicyclomine [Bentyl] 10 mg PO TID 07/24/18 10/09/18 History Ondansetron [Zofran] 4 mg PO Q6H PRN 07/24/18 10/09/18 History Albuterol Nebulized [Ventolin 2.5 mg INHALATION RT-TID PRN 09/09/18 10/09/18 History Nebulized] Digoxin [Digitek] 125 mcg PO DAILY 09/09/18 10/09/18 History Ipratropium-Albuterol Nebulize 3 ml INHALATION RT-Q8H 09/09/18 10/09/18 History [Duoneb 0.5 mg-3 mg/3 ml Soln] Loperamide [Imodium] 2 mg PO Q6H PRN 09/09/18 10/09/18 History Metoprolol Tartrate [Lopressor] 25 mg PO DAILY 09/09/18 10/09/18 History Budesonide 1 mg INHALATION RT-BID 09/27/18 10/09/18 History Furosemide [Lasix] 40 mg PO DAILY 09/27/18 10/09/18 History Gabapentin [Neurontin] 300 mg PO TID 09/27/18 10/09/18 History HYDROcodone/APAP 10-325MG [[place] 1 tab PO Q4H PRN 09/27/18 10/09/18 History 10-325] Nicotine Polacrilex [Nicorette] 4 mg BUCCAL Q6H PRN 09/27/18 10/09/18 History Opium Tincture 10mg/1ml 20 mg PO QID PRN 09/27/18 10/09/18 History Potassium Chloride ER [K-Dur 20] 20 meq PO DAILY 09/27/18 10/09/18 History predniSONE 20 mg PO BID #10 tab 10/03/18 10/09/18 Rx Azithromycin [Zithromax Z-pack] See Taper PO DIRECTED 10/09/18 10/09/18 History Allergies Allergy/AdvReac Type Severity Reaction Status Date / Time Iodinated Contrast- Oral and Allergy Anaphylaxis Verified 10/09/18 16:05 IV Dye pregabalin [From Lyrica] Allergy Unknown Verified 10/09/18 16:05 rofecoxib [From Vioxx] Allergy Unknown Verified 10/09/18 16:05 Sulfa (Sulfonamide Allergy Rash/Hives Verified 10/09/18 16:05 Antibiotics) aspirin AdvReac Internal Verified 10/09/18 16:05 Bleeding timolol [Timolol] AdvReac Nausea & Verified 10/09/18 16:05 Vomiting Physical Exam Vitals: Vital Signs Temp Pulse Pulse Resp BP BP Pulse Ox 10/10/18 11:29 88 10/10/18 11:16 84 10/10/18 07:10 97.5 F L 87 16 110/63 98 10/10/18 07:09 86 10/10/18 06:58 84 10/10/18 01:03 98.1 F 78 16 90/54 97 10/09/18 20:00 93 20 108/87 98 10/09/18 19:39 105 H 10/09/18 19:31 84 10/09/18 19:30 83 18 122/73 100 10/09/18 19:22 82 10/09/18 19:00 61 18 126/89 99 10/09/18 18:30 90 23 118/88 98 10/09/18 18:00 97 19 136/105 98 10/09/18 17:30 102 H 48 H 142/93 99 10/09/18 17:00 79 27 H 100 10/09/18 16:30 134/102 10/09/18 16:21 98.1 F 118 H 22 134/102 97 10/09/18 16:15 122 H 10/09/18 16:05 134 H 10/09/18 15:45 28 H 10/09/18 15:29 98.5 F 139 H 28 H 137/108 95 Intake and Output 10/09/18 10/10/18 10/10/18 22:59 06:59 14:59 Intake Total 350 900 Balance 350 900 Intake: Intake, IV Titration 350 900 Amount Sodium Chloride 0.9% 1, 350 900 000 ml @ 100 mls/hr IV . Q10H STA Rx#:[id number] Other: Voiding Method Toilet Toilet Bedside Commode Bedside Commode Bedpan Bedpan # Voids 1 2 Weight 47.174 kg 47.174 kg GENERAL EXAM: Alert, active, comfortable in no apparent distress. HEAD: Normocephalic/atraumatic. EYES: Normal reaction of pupils, equal size. Conjunctiva pink, sclera white. NOSE: Clear with pink turbinates. THROAT: No erythema or exudates. NECK: No masses, no JVD, no thyroid enlargement, no adenopathy. CHEST: No chest wall deformity. Symmetrical expansion. LUNGS: Markedly diminished breath sounds bilaterally CVS: Regular rate and rhythm, normal S1 and S2, no gallops, no murmurs, no rubs ABDOMEN: Soft, nontender. No hepatosplenomegaly, normal bowel sounds, no guarding or rigidity. EXTREMITIES: No clubbing, no edema, no cyanosis, 2+ pulses and upper and lower extremities. MUSCULOSKELETAL: Muscle strength and tone normal. SPINE: No scoliosis or deformity SKIN: No rashes CENTRAL NERVOUS SYSTEM: Alert and oriented -3. No focal deficits, tone is normal in all 4 extremities. PSYCHIATRIC: Alert and oriented -3. Appropriate affect. Intact judgment and insight. Results - Laboratory Findings CBC and BMP: 10/09/18 15:34 10/09/18 15:34 ABG ABG pH 7.42 (7.35-7.45) 10/09/18 19:20 ABG pCO2 53 mmHg (35-45) H 10/09/18 19:20 ABG pO2 62 mmHg (83-108) L 10/09/18 19:20 ABG O2 Saturation 92.4 % (94-97) L 10/09/18 19:20 PT/INR, D-dimer PT 10.6 sec (9.0-12.0) 10/09/18 15:34 INR 1.0 (<1.2) 10/09/18 15:34 Abnormal lab findings: Abnormal Labs 10/09/18 10/09/18 12 15:34 15:34 15:34 WBC 12.7 H Plt Count 457 H ABG pCO2 ABG pO2 ABG HCO3 ABG Total CO2 ABG O2 Saturation Chloride 96 L Carbon Dioxide 38 H BUN 25 H Glucose 117 H Calcium 11.1 H AST 78 H ALT 140 H Total Creatine Kinase <20 L Triglycerides 207 H HDL Cholesterol 66 H Urine Protein Urine Ketones Urine Mucus Urine Opiates Screen 10/09/18 10/09/18 18:50 19:20 WBC Plt Count ABG pCO2 53 H ABG pO2 62 L ABG HCO3 34 H ABG Total CO2 36 H ABG O2 Saturation 92.4 L Chloride Carbon Dioxide BUN Glucose Calcium AST ALT Total Creatine Kinase Triglycerides HDL Cholesterol Urine Protein 1+ H Urine Ketones 1+ H Urine Mucus Rare H Urine Opiates Screen Detected H - Diagnostic Findings Chest x-ray: report reviewed, image reviewed Additional studies: EKG reviewed Assessment and Plan Plan: Assessment: #1. Acute exacerbation of chronic obstructive pulmonary disease #2. History of advanced COPD and bullous emphysema with underlying FEV1 of 36% of predicted, oxygen and prednisone dependent #3. History of respiratory failure related to COPD exacerbation a few months ago requiring prolonged mechanical patient requiring tracheostomy and PEG tube placement. Patient recovered, and was successfully weaned off the ventilator at the [facility] facility and subsequently decannulated #4. Previous history of chronic left upper lobe inflammatory opacity #5. History of right-sided pneumothorax x2 #6. Hyperlipidemia, hypothyroidism #7. Chronic normocytic anemia #8. Fibromyalgia #9. Anxiety/depression Plan: Continue current medical treatment, IV steroids, nebulized bronchodilators, Pulmicort and Perforomist. DVT prophylaxis, no clear evidence of pneumonia on the chest x-ray, signs are stable, patient is afebrile. Patient is quiet anxious and depressed about her current medical condition, and severe limitations associated with them. She would like to be considered for possible bullectomy, and this will be discussed in the outpatient setting by Dr. Mistry after she is optimized. I performed a history & physical examination of the patient and discussed their management with my nurse practitioner, Carmella Jimenez. I reviewed the nurse practitioner's note and agree with the documented findings and plan of care. Lung sounds are markedly diminished breath sounds bilaterally. The findings and the impression was discussed with the patient. I attest to the documentation by the nurse practitioner. Time with Patient: Greater than 30
[2018-10-10] MEDS: OPIUM TINCTURE PO PRN ×2 (18:12→22:16)
[2018-10-10] MEDS: busPIRone HCl 5 MG TAB PO SCH (22:15)
[2018-10-11] MEDS: LORazepam 2 MG/ML INJ IV PRN ×4 (02:21→21:55)
[2018-10-11] MEDS: MORPHINE SULFATE 4 MG/ML SYRINGE IVP PRN ×4 (02:21→22:10)
[2018-10-11] MEDS: BUDESONIDE 1 MG/2 ML NEBU INHALATION SCH ×2 (07:07→19:18)
[2018-10-11] MEDS: IPRATROPIUM-ALBUTEROL 3 ML NEB INHALATION SCH ×4 (07:07→19:19)
[2018-10-11] MEDS: methylPREDNISolone SOD SUCCI 125 MG/2 ML VIAL IV SCH (07:22)
[2018-10-11] MEDS: OPIUM TINCTURE PO PRN ×3 (08:41→18:24)
[2018-10-11] MEDS: ENOXAPARIN 40 MG/0.4 ML SYRINGE SQ SCH (08:47)
[2018-10-11] MEDS: GABAPENTIN 300 MG CAP PO SCH ×3 (08:48→21:55)
[2018-10-11] MEDS: METOPROLOL TARTRATE 25 MG TAB PO SCH (08:48)
[2018-10-11] MEDS: DIGOXIN 125 MCG TAB PO SCH (08:48)
[2018-10-11] MEDS: busPIRone HCl 5 MG TAB PO SCH (08:48)
[2018-10-11] MEDS: DICYCLOMINE 10 MG CAP PO SCH ×3 (08:49→21:05)
[2018-10-11] MEDS: ESCITALOPRAM 5 MG TAB PO SCH (08:49)
[2018-10-11] MEDS: FUROSEMIDE 40 MG TAB PO SCH (08:49)
[2018-10-11] MEDS: POTASSIUM CHLORIDE ER 20 MEQ TAB.ER PO SCH (08:49)
[2018-10-11] MEDS: HYDROcodone/APAP 10-325MG 1 EACH TAB PO PRN ×2 (09:02→18:23)
--- NOTE | 2018-10-11 13:27 | P.CN ---
Psychiatric Consult - . Consult date: 10/11/18 Consult:: 10/10/18 14:55 coping poorly with medical issues and depression Assessment and Plan Assessment: this is a 58-year-old pleasant female patient of Dr. Heber James. She has underlying history of severe COPD, fibromyalgia, Crohn's disease with ileostomy , previous right-sided pneumothorax, chronic left upper lobe inflammatory opacification followed by Dr. Mistry forseveral years secondary to scar tissue, bullous emphysemahas been prednisone dependent, FEV1 of 36%, follows with Dr. Mistry treated with Breo ellipta and albuterol in the outpatient setting. Also required home O2, she was transferred from [facility], admitted there 07/18/2018 secondary to COPD exacerbation. Patient required mechanical ventilation on admission as they were planning to have Trach and PEG but they noticed large Bullous disease on the left side and because of pneumothorax concerns she was transferred at that time to [facility] for evaluation by thoracic surgery and she ended-up getting her Trach and PEG tubbe and she developped to have critical illness myopathy was treated with IVIG and and she was transferred to [facility] for sometime then sent to [facility] , patient was there for about 10 days and after that she was discharged because of insurance coverage and went to her sister's house the [place] where she is the primary caregiver for her and herself as she cannot go back to her house which is a trilevel house with a temperature 67, patient apparently has not been taking her medication over the last 24 hours, yesterday she felt extremely short of breath than she was extremely anxious and depressed EMS was called and the patient was brought into the ER at [facility] where she was found to have a sinus tachycardia with significant dyspnea she was given Solu-Medrol nebulized treatment and she was admitted to the hospital, pulmonary consultation was obtained from . Past Medical History Past Medical History: COPD, Fibromyalgia, GERD/Reflux, GI Bleed, Hyperlipidemia , Hypertension, Osteoarthritis (OA), Pneumonia, Syncope Additional Past Medical History / Comment(s): in past took meds for high blood pressure.COPD-02 3 liters n/c atc, crohn's, bowel obstructions, lower GI bleeds , hiatal hernia, osteoporosis, arthritis multiple joints, seasonal allergies, right-sided pneumothorax x2; ventilator 07/24/18 - transfer from [facility] r/t bollas History of Any Multi-Drug Resistant Organisms: None Reported Past Surgical History: Breast Surgery, Cholecystectomy, Hernia Repair, Hysterectomy, Orthopedic Surgery Additional Past Surgical History / Comment(s): Multiple bowel surgeries including total colectomy/ileostomy, ileostomy moved/repaired, R tube and R ovary removed due tectopic , total hysterectomy, leep procedure, laparoscopy for endometriosis, L breast lumpectomy-benign, r breast core bx- benign, EGD/colonoscopies. Right-sided Thora-vent placement May 09 and May 19. Eye surgery bilateral,arthroscopic knee surgery on he right due to ACL and Maniscal tear. Past Anesthesia/Blood Transfusion Reactions: No Reported Reaction Smoking Status: Former smoker - Past Family History Mother Family Medical History: Cancer, COPD, Hypertension Additional Family Medical History / Comment(s): Mother at age 83 from COPD and osteoarthritis and had skin cancer. Father Family Medical History: Cancer, CVA/TIA, Dementia, Diabetes Mellitus Additional Family Medical History / Comment(s): Father is 90yrs old. Brother(s) Family Medical History: Cancer Additional Family Medical History / Comment(s): Patient had 5 brothers and one of them from melanoma. Sister(s) History Unknown: Yes Family Medical History: No Reported History Additional Family Medical History / Comment(s): Patient has one sister. Patient has no kids. Medications and Allergies Home Medications Medication Instructions Recorded Confirmed Type Adalimumab [Humira Pen] 40 mg SQ TU 06/21/14 10/09/18 History busPIRone HCl [Buspar] 10 mg PO BID 05/09/17 10/09/18 History Latanoprost Ophth [Xalatan 0.005%] 1 drop BOTH EYES DAILY 05/21/17 10/09/18 History Cyanocobalamin [Vitamin B-12 1,000 mcg SQ Q30D 07/24/18 10/09/18 History Injection] Dicyclomine [Bentyl] 10 mg PO TID 07/24/18 10/09/18 History Ondansetron [Zofran] 4 mg PO Q6H PRN 07/24/18 10/09/18 History Albuterol Nebulized [Ventolin 2.5 mg INHALATION RT-TID PRN 09/09/18 10/09/18 History Nebulized] Digoxin [Digitek] 125 mcg PO DAILY 09/09/18 10/09/18 History Ipratropium-Albuterol Nebulize 3 ml INHALATION RT-Q8H 09/09/18 10/09/18 History [Duoneb 0.5 mg-3 mg/3 ml Soln] Loperamide [Imodium] 2 mg PO Q6H PRN 09/09/18 10/09/18 History Metoprolol Tartrate [Lopressor] 25 mg PO DAILY 09/09/18 10/09/18 History Budesonide 1 mg INHALATION RT-BID 09/27/18 10/09/18 History Furosemide [Lasix] 40 mg PO DAILY 09/27/18 10/09/18 History Gabapentin [Neurontin] 300 mg PO TID 09/27/18 10/09/18 History HYDROcodone/APAP 10-325MG [[place] 1 tab PO Q4H PRN 09/27/18 10/09/18 History 10-325] Nicotine Polacrilex [Nicorette] 4 mg BUCCAL Q6H PRN 09/27/18 10/09/18 History Opium Tincture 10mg/1ml 20 mg PO QID PRN 09/27/18 10/09/18 History Potassium Chloride ER [K-Dur 20] 20 meq PO DAILY 09/27/18 10/09/18 History predniSONE 20 mg PO BID #10 tab 10/03/18 10/09/18 Rx Azithromycin [Zithromax Z-pack] See Taper PO DIRECTED 10/09/18 10/09/18 History Allergies Allergy/AdvReac Type Severity Reaction Status Date / Time Iodinated Contrast- Oral and Allergy Anaphylaxis Verified 10/09/18 16:05 IV Dye pregabalin [From Lyrica] Allergy Unknown Verified 10/09/18 16:05 rofecoxib [From Vioxx] Allergy Unknown Verified 10/09/18 16:05 Sulfa (Sulfonamide Allergy Rash/Hives Verified 10/09/18 16:05 Antibiotics) aspirin AdvReac Internal Verified 10/09/18 16:05 Bleeding timolol [Timolol] AdvReac Nausea & Verified 10/09/18 16:05 Vomiting Mental Status Examination - this is a 58-year-old female who looks older than stated age lying in bed fearful and afraid and she says I can't live like this. She notes that she has depression and anxiety and feels has not been addressed and wants assistance. Discussed the discontinuation of BuSpar and Lexapro in addition of Zoloft will help me I well do it. General Appearance: [casual,appears older than stated age Speech/Language: [spontaneous, rapid, expressive, soft with some pressured speech] Attitude/Behavior: [cooperative Mood: [depressed 8 out of 10, anxious 8 out of 10, irritable, fearful, hopelessness] Affect: [flat, incongruent, labile, blunted constricted] Orientation: [time, person, place situation] Thought Content: [wnl Risk Factors: [She is not suicidal (ideations, plan), and/or Homicidal ( ideations, plan), other] Perception: [wnl, denies hallucinations (auditory, visual, tactile), other] Thought Processes: [Is goal-oriented Concentration/Attention Span: [wnl, not impaired] [Per observation and interview with the patient] Recent Memory: [wnl, not impaired] [ 3 out of 3 in 3 minutes] Remote Memory: [wnl [past events, as related history] Intelligence: [ average] [based on history, based on vocabulary, syntax, grammar , and content] Judgement: [ fair] [per patient's behavior/history of present illness] Insight: [fair] [understanding severity of illness/history of present illness] Psychiatric impression: Major depressive disorder with anxiety; steroids for him the ability to increase anxiety and at times a been noted to cause psychosis however at the present time I do not see any psychosis. Psychiatric recommendations: Discontinue Lexapro discontinue BuSpar since these 2 will probably not aid and resolving depression in this combination. Addition of Zoloft 25 mg by mouth daily at bedtime is been found more clinically efficient in the elderly with medical complications. Thank you for the consult Pankaj Lara D.O. PhD (1) Major depression Current Visit: Yes Status: Acute Priority: High Code(s): F32.9 - MAJOR DEPRESSIVE DISORDER, SINGLE EPISODE, UNSPECIFIED SNOMED Code(s): 881727385 Time with Patient: Greater than 30
--- NOTE | 2018-10-11 14:30 | P.PN ---
Subjective Progress Note Date: 10/11/18 Principal diagnosis: Acute exacerbation of chronic obstructive pulmonary disease This is a 58-year-old white female patient of Dr. James, who is well-known to our service from her previous admissions for complications related to her advanced bullous emphysema, was brought into the emergency department per ambulance on 10/09/2018 for evaluation of increasing shortness of breath, weakness, abdominal pain. She reportedly stopped taking her medications, she has been very depressed lately about her overall condition, oral intake has been poor. She was seen in the emergency department on 10/03/2018 for episode of shortness of breath that was thought to be related to exacerbation of COPD patient was treated and discharged home on oral Z-Leland and prednisone taper. Chest x-ray then showed done chronic left upper lobe density stable in appearance and stable right upper lobe consolidation. She was recently hospitalized in August for dehydration, related to emesis and diarrhea. Patient has a history of Crohn's disease with the diverting ileostomy. A few months ago patient suffered episode of acute respiratory failure related to exacerbation of COPD, requiring mechanical ventilation, and patient was trached and pegged following a prolonged recovery, [facility] she was successfully weaned off the vent and decannulated. Patient has history of severe oxygen-dependent COPD with bullous emphysema with FEV1 of 36% of predicted, chronic left upper lobe inflammatory opacity which was nonmalignant, history of hyperlipidemia hypothyroidism, anemia, fibromyalgia , anxiety and depression. Patient denied any fever or chills, and chest congestion, phlegm production. Chest X-ray from 10/09/2018 showed stable chronic findings with extensive bullous emphysematous changes, compressive atelectasis and bilateral lobe opacities. Lab work did not show any significant leukocytosis, WBC was 12.7, hemoglobin is 14.2, sodium is 144, potassium is 4.3, chloride is 96, CO2 is 38, BUN is 25 creatinine 0.71 On 10/11/2018 patient seen in follow-up on medical surgical floor. She is breathing easier, does get quite dyspneic with with exertion, therefore liters per nasal cannula her pulse ox is 95%, afebrile. Lung sounds reveal increased air entry bilaterally, with a few end expiratory wheezes, less diminished on today's exam. No fever or chills. Vitals are stable. No acute events overnight, patient is stable from pulmonary perspective, could be considered for discharge home in next 24 hours Objective - Vital Signs Vital signs: Vital Signs Temp 98.1 F 10/11/18 07:00 Pulse 88 10/11/18 11:05 Resp 18 10/11/18 07:00 BP 126/76 10/11/18 07:00 Pulse Ox 97 10/11/18 07:00 Intake & Output 10/10/18 10/11/18 10/11/18 18:59 06:59 18:59 Intake Total 900 950 Balance 900 950 Weight 47.174 kg 47.174 kg Intake: Intake, IV Titration 900 Amount Sodium Chloride 0.9% 1, 900 000 ml @ 100 mls/hr IV . Q10H STA Rx#:[id number] Oral 950 Other: Voiding Method Toilet Toilet Bedside Commode Bedside Commode Bedpan Bedpan # Voids 2 1 1 # Bowel Movements 1 2 1 - Exam GENERAL EXAM: Alert, active, comfortable in no apparent distress. HEAD: Normocephalic/atraumatic. EYES: Normal reaction of pupils, equal size. Conjunctiva pink, sclera white. NOSE: Clear with pink turbinates. THROAT: No erythema or exudates. NECK: No masses, no JVD, no thyroid enlargement, no adenopathy. CHEST: No chest wall deformity. Symmetrical expansion. LUNGS: With diminished on today's exam, with end expiratory wheezing, no rhonchi CVS: Regular rate and rhythm, normal S1 and S2, no gallops, no murmurs, no rubs ABDOMEN: Soft, nontender. No hepatosplenomegaly, normal bowel sounds, no guarding or rigidity. EXTREMITIES: No clubbing, no edema, no cyanosis, 2+ pulses and upper and lower extremities. MUSCULOSKELETAL: Muscle strength and tone normal. SPINE: No scoliosis or deformity SKIN: No rashes CENTRAL NERVOUS SYSTEM: Alert and oriented -3. No focal deficits, tone is normal in all 4 extremities. PSYCHIATRIC: Alert and oriented -3. Appropriate affect. Intact judgment and insight. - Labs CBC & Chem 7: 10/09/18 15:34 10/09/18 15:34 Labs: Microbiology - Last 24 Hours (Table) 10/09/18 16:47 Blood Culture - Preliminary Blood No Growth after 24 hours Assessment and Plan Plan: Assessment: #1. Acute exacerbation of chronic obstructive pulmonary disease #2. History of advanced COPD and bullous emphysema with underlying FEV1 of 36% of predicted, oxygen and prednisone dependent #3. History of respiratory failure related to COPD exacerbation a few months ago requiring prolonged mechanical patient requiring tracheostomy and PEG tube placement. Patient recovered, and was successfully we[facility] off the ventilator [facility] and subsequently decannulated #4. Previous history of chronic left upper lobe inflammatory opacity #5. History of right-sided pneumothorax x2 #6. Hyperlipidemia, hypothyroidism #7. Chronic normocytic anemia #8. Fibromyalgia #9. Anxiety/depression Plan: Patient is improving, breathing easier,vital signs are stable, no fever or chills. Continue current medical treatment, patient could be considered for discharge home in the next 24 hours on oral course of oral steroids, nebulized bronchodilators. We will see the patient on as-needed basis. Follow up with Dr. Mistry in the office in 7-10 days I performed a history & physical examination of the patient and discussed their management with my nurse practitioner, Carmella Jimenez. I reviewed the nurse practitioner's note and agree with the documented findings and plan of care. Lung sounds are markedly diminished breath sounds bilaterally. The findings and the impression was discussed with the patient. I attest to the documentation by the nurse practitioner. Time with Patient: Less than 30
--- NOTE | 2018-10-11 14:52 | P.PN ---
Subjective Progress Note Date: 10/11/18 this is a 58-year-old pleasant female patient of Dr. Heber James. She has underlying history of severe COPD, fibromyalgia, Crohn's disease with ileostomy , previous right-sided pneumothorax, chronic left upper lobe inflammatory opacification followed by Dr. 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 Mistry treated with Breo ellipta and albuterol in the outpatient setting. Also required home O2, she was transferred from [facility], admitted there 07/18/2018 secondary to COPD exacerbation. Patient required mechanical ventilation on admission as they were planning to have Trach and PEG but they noticed large Bullous disease on the left side and because of pneumothorax concerns she was transferred at that time to [facility] for evaluation by thoracic surgery and she ended-up getting her Trach and PEG tubbe and she developped to have critical illness myopathy was treated with IVIG and and she was transferred to [facility] specialty hospital for sometime then sent to [facility] , patient was there for about 10 days and after that she was discharged because of insurance coverage and went to her sister's house [place] where she is the primary caregiver for her and herself as she cannot go back to her house which is a trilevel house with a temperature 67, patient apparently has not been taking her medication over the last 24 hours, yesterday she felt extremely short of breath than she was extremely anxious and depressed EMS was called and the patient was brought into the ER at [facility] where she was found to have a sinus tachycardia with significant dyspnea she was given Solu-Medrol nebulized treatment and she was admitted to the hospital, pulmonary consultation was obtained from . 10/11: Patient is feeling better about everything in general and her breathing is improved from yesterday. She does complain of feeling jumpy and her heart rate increased. Solu-Medrol will be decreased to 40 mg IV every 8 hours. She states she is slept good last night. She is planning to return home at the time of discharge. Patient has met with Dr. Cintron with plan for evaluation at [facility] for blebectomy. Patient has been seen by Dr. Lara from psychiatry with recommendations to discontinue Lexapro, discontinue BuSpar and Ativan and Zoloft 25 mg daily at bedtime. Review of Systems Constitutional: Reports anorexia, Reports chronic headaches, Reports chronic pain, Reports fatigue, Reports malaise, Reports weakness, Reports weight loss Eyes: denies blurred vision, denies bulging eye, denies decreased vision Ears: deny: decreased hearing Ears, nose, mouth and throat: Denies dysphagia, Denies neck lump, Denies swelling in throat, Denies sore throat, Denies vertigo Cardiovascular: Reports dyspnea on exertion, Reports high blood pressure, Reports rapid heart beat, Reports shortness of breath, Denies chest pain, Denies phlebitis, Denies syncope Gastrointestinal: Reports abdominal pain, Reports bloating, Reports diarrhea, Reports loss of appetite, Reports nausea, Denies heartburn, Denies melena, Denies vomiting Genitourinary: Denies dysuria, Denies urgency Musculoskeletal: Reports atrophy, Reports gait dysfunction Musculoskeletal: absent: ankle pain, ankle stiffness, ankle swelling, elbow pain , elbow stiffness, elbow swelling, foot pain, foot stiffness, foot swelling, hand pain, hand stiffness, hand swelling, hip pain, hip stiffness, hip swelling , knee pain, knee stiffness, knee swelling, shoulder pain, shoulder stiffness, shoulder swelling, wrist pain, wrist stiffness, wrist swelling Integumentary: Denies pruritus, Denies rash Neurological: Denies numbness, Denies weakness Psychiatric: Denies anxiety, complains of depression Endocrine: Denies fatigue, Denies weight change Objective - Vital Signs Vital signs: Vital Signs Temp 98 F 10/10/18 14:29 Pulse 120 H 10/10/18 14:29 Resp 16 10/10/18 14:29 BP 100/68 10/10/18 14:29 Pulse Ox 97 10/10/18 14:29 Intake & Output 10/09/18 10/10/18 10/10/18 18:59 06:59 18:59 Intake Total 1250 900 Balance 1250 900 Weight 47.174 kg 47.174 kg Intake: Intake, IV Titration 1250 900 Amount Sodium Chloride 0.9% 1, 1250 900 000 ml @ 100 mls/hr IV . Q10H STA Rx#:[id number] Other: Voiding Method Toilet Toilet Bedside Commode Bedside Commode Bedpan Bedpan # Voids 2 2 # Bowel Movements 1 - Exam General appearance: no distress, thin - EENT Eyes: anicteric sclerae, EOMI, PERRLA, no ptosis, no scleral icterus, normal appearance ENT: hearing grossly normal, normal oropharynx, no thrush - Neck Neck: no lymphadenopathy, normal ROM, no rigidity, no stridor Carotids: bilateral: upstroke normal Thyroid: bilateral: normal size - Respiratory Respiratory: bilateral: diminished, wheezing, prolonged expiration, negative: dullness, rales, rhonchi - Cardiovascular Rhythm: regular Heart sounds: normal: S1, S2 Abnormal Heart Sounds: systolic murmur, no S3 Gallop - Gastrointestinal General gastrointestinal: hyperactive bowel sounds, soft, tenderness (ileostomy bag in place.) - Integumentary Integumentary: normal, normal turgor - Neurologic Neurologic: CNII-XII intact - Musculoskeletal Musculoskeletal: generalized weakness, strength equal bilaterally - Psychiatric Psychiatric: A&O x's 3, no appropriate affect, intact judgment & insight - Labs CBC & Chem 7: 10/09/18 15:34 10/09/18 15:34 Labs: Abnormal Lab Results - Last 24 Hours (Table) 10/09/18 10/09/18 10/09/18 Range/Units 15:34 15:34 15:34 WBC 12.7 H (3.8-10.6) k/uL Plt Count 457 H (150-450) k/uL ABG pCO2 (35-45) mmHg ABG pO2 (83-108) mmHg ABG HCO3 (21-25) mmol/L ABG Total CO2 (19-24) mmol/L ABG O2 Saturation (94-97) % Chloride 96 L (98-107) mmol/L Carbon Dioxide 38 H (22-30) mmol/L BUN 25 H (7-17) mg/dL Glucose 117 H (74-99) mg/dL Calcium 11.1 H (8.4-10.2) mg/dL AST 78 H (14-36) U/L ALT 140 H (9-52) U/L Total Creatine Kinase <20 L (30-135) U/L Triglycerides 207 H (<150) mg/dL HDL Cholesterol 66 H (40-60) mg/dL Urine Protein (Negative) Urine Ketones (Negative) Urine Mucus (None) /hpf Urine Opiates Screen (NotDetected) 10/09/18 10/09/18 Range/Units 18:50 19:20 WBC (3.8-10.6) k/uL Plt Count (150-450) k/uL ABG pCO2 53 H (35-45) mmHg ABG pO2 62 L (83-108) mmHg ABG HCO3 34 H (21-25) mmol/L ABG Total CO2 36 H (19-24) mmol/L ABG O2 Saturation 92.4 L (94-97) % Chloride (98-107) mmol/L Carbon Dioxide (22-30) mmol/L BUN (7-17) mg/dL Glucose (74-99) mg/dL Calcium (8.4-10.2) mg/dL AST (14-36) U/L ALT (9-52) U/L Total Creatine Kinase (30-135) U/L Triglycerides (<150) mg/dL HDL Cholesterol (40-60) mg/dL Urine Protein 1+ H (Negative) Urine Ketones 1+ H (Negative) Urine Mucus Rare H (None) /hpf Urine Opiates Screen Detected H (NotDetected) Assessment and Plan Plan: 1. Acute respiratory failure due to acute COPD exacerbation. Decrease Solu- Medrol 40 mg every 8 hours, continue nebulized treatment DuoNeb 3 mL nebulization 4 times every day, continue Pulmicort 1 mg nebulization twice every day, pulmonary consultation appreciated, patient may be a candidate for lobectomy after discussing the case with Dr. Cintron due to her significant bullous disease and/or pulmonary rehabilitation. 2. Debility due to a chronic medical illnesses. Physical therapy evaluation. 3. Chronic hypoxemic and hypercapneic respiratory failure requiring mechanical ventilation in the past and Trach which has since removed. we will continue with aggresive pulmonary toileting with Duoneb and Mucomyst we will consult for left upper lobe Consolidative process. 4. Moderate protein calorie malnutrition. we will continue with protein supplement. 5. H/O critical illness myopathy post IVIG infusion and will consult PT and OT. 6. History of Crohn's, has ileostomy on the right side. we will continue with Humira 40 mg SC q week, we will continue with Opium Tincture 2 ml po QID scheduled. 7. Generalized anxiety disorder and recurrent depression. Psychiatry consult appreciated. BuSpar and Lexapro will be discontinued and patient started on Zoloft 25 mg at bedtime. 8. Fibromyalgia with bilateral neuropathy. we will continue with Gabapentin 300 mg orally tid. 9. Sinus tachycardia. we will continue with Metoprolol 25 mg orally tid. 10. Vitamin D deficiency. we will continue with Vit D 1000 units orally daily. 11. B12 deficiency. we will continue with B12 1000 mcg sc q month. 12. Glaucoma. we will continue with Xalatan . 13. Hypomagnesemia. will continue with magnesium oxide. 14. DVT prophylaxis. we will continue with Lovenox 40 mg subcutaneously every day. 15. GI prophylaxis. we will continue with protonix 40 mg orally daily. 16. Full code. Discharge plan: Return home with homecare Impression and plan of care have been directed as dictated by the signing physician. Gaby Rothman nurse practitioner acting as scribe for signing physician.
[2018-10-11] MEDS: methylPREDNISolone SOD SUCCI 40 MG/ML 1 ML VIAL IV SCH (16:11)
[2018-10-11] MEDS: LATANOPROST 0.005% OPHTH DROPS 2.5 ML BTL BOTH EYES SCH (21:04)
[2018-10-11] MEDS: SERTRALINE 25 MG TAB PO SCH (21:05)
[2018-10-11] MEDS: MELATONIN 5 MG TABLET PO PRN (21:55)
[2018-10-12] MEDS: methylPREDNISolone SOD SUCCI 40 MG/ML 1 ML VIAL IV SCH ×2 (01:47→08:54)
[2018-10-12] MEDS: LORazepam 2 MG/ML INJ IV PRN ×2 (01:48→09:56)
[2018-10-12] MEDS: MORPHINE SULFATE 4 MG/ML SYRINGE IVP PRN ×4 (01:48→22:42)
[2018-10-12 08:23] LABS: ALT 127 U/L (9-52); AST 49 U/L (14-36); Albumin 3.1 g/dL (3.5-5.0); Alkaline Phosphatase 85 U/L (38-126); Anion Gap 6 mmol/L; Blood Urea Nitrogen 25 mg/dL (7-17); Calcium 9.7 mg/dL (8.4-10.2); Carbon Dioxide 35 mmol/L (22-30); Chloride 97 mmol/L (98-107); Glucose 128 mg/dL (74-99); Magnesium 1.5 mg/dL (1.6-2.3); Sodium 138 mmol/L (137-145); Total Bilirubin 0.2 mg/dL (0.2-1.3); Total Protein 5.6 g/dL (6.3-8.2)
[2018-10-12 08:29] LABS: Basophils % (A) 0 %; Eosinophils % (A) 0 %; Hypochromasia Moderate; Lymphocytes # (A) 0.8 k/uL (1.0-4.8); Lymphocytes % (A) 5 %; MCH 28.9 pg (25.0-35.0); MCHC 31.3 g/dL (31.0-37.0); MCV 92.2 fL (80.0-100.0); Mean Platelet Volume 6.7; Monocytes # (A) 0.2 k/uL (0-1.0); Monocytes % (A) 1 %; Neutrophils # (A) 13.8 k/uL (1.3-7.7); Neutrophils % (A) 93 %; Platelet Count 352 k/uL (150-450); RBC 3.69 m/uL (3.80-5.40); RDW 13.9 % (11.5-15.5); WBC 14.8 k/uL (3.8-10.6)
[2018-10-12 08:34] LABS: HGB 10.7 gm/dL (11.4-16.0)
[2018-10-12] MEDS: ENOXAPARIN 40 MG/0.4 ML SYRINGE SQ SCH (08:53)
[2018-10-12] MEDS: METOPROLOL TARTRATE 25 MG TAB PO SCH (08:54)
[2018-10-12] MEDS: POTASSIUM CHLORIDE ER 20 MEQ TAB.ER PO SCH (08:54)
[2018-10-12] MEDS: GABAPENTIN 300 MG CAP PO SCH ×3 (08:54→22:32)
[2018-10-12] MEDS: FUROSEMIDE 40 MG TAB PO SCH (08:54)
[2018-10-12] MEDS: DICYCLOMINE 10 MG CAP PO SCH ×3 (08:54→22:32)
[2018-10-12] MEDS: DIGOXIN 125 MCG TAB PO SCH (08:54)
[2018-10-12] MEDS: OPIUM TINCTURE PO PRN ×3 (08:55→19:56)
[2018-10-12] MEDS: BUDESONIDE 1 MG/2 ML NEBU INHALATION SCH ×2 (09:22→20:47)
[2018-10-12] MEDS: IPRATROPIUM-ALBUTEROL 3 ML NEB INHALATION SCH ×4 (09:22→20:48)
[2018-10-12] MEDS: HYDROcodone/APAP 10-325MG 1 EACH TAB PO PRN ×3 (10:09→20:28)
--- NOTE | 2018-10-12 15:09 | P.PN ---
Subjective Progress Note Date: 10/12/18 this is a 58-year-old pleasant female patient of Dr. Heber James. She has underlying history of severe COPD, fibromyalgia, Crohn's disease with ileostomy , previous right-sided pneumothorax, chronic left upper lobe inflammatory opacification followed by Dr. 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 Mistry treated with Breo ellipta and albuterol in the outpatient setting. Also required home O2, she was transferred from [facility], admitted there 07/18/2018 secondary to COPD exacerbation. Patient required mechanical ventilation on admission as they were planning to have Trach and PEG but they noticed large Bullous disease on the left side and because of pneumothorax concerns she was transferred at that time to [facility] for evaluation by thoracic surgery and she ended-up getting her Trach and PEG tubbe and she developped to have critical illness myopathy was treated with IVIG and and she was transferred to [facility] specialty hospital for sometime then sent to [facility] , patient was there for about 10 days and after that she was discharged because of insurance coverage and went to her sister's house [place] where she is the primary caregiver for her and herself as she cannot go back to her house which is a trilevel house with a temperature 67, patient apparently has not been taking her medication over the last 24 hours, yesterday she felt extremely short of breath than she was extremely anxious and depressed EMS was called and the patient was brought into the ER at [facility] where she was found to have a sinus tachycardia with significant dyspnea she was given Solu-Medrol nebulized treatment and she was admitted to the hospital, pulmonary consultation was obtained from . 10/11: Patient is feeling better about everything in general and her breathing is improved from yesterday. She does complain of feeling jumpy and her heart rate increased. Solu-Medrol will be decreased to 40 mg IV every 8 hours. She states she is slept good last night. She is planning to return home at the time of discharge. Patient has met with Dr. Cintron with plan for evaluation at [facility] for blebectomy. Patient has been seen by Dr. Lara from psychiatry with recommendations to discontinue Lexapro, discontinue BuSpar and Ativan and Zoloft 25 mg daily at bedtime. 10/12: Patient is breathing status continues to improve. She states she is still anxious but a little bit better from yesterday. She has less edema this morning. Solu-Medrol will be decreased to 40 mg every 12 hours and start prednisone in the morning. Plan to monitor the patient another 24 hours and probable discharge on Monday. Review of Systems Constitutional: Reports anorexia, Reports chronic headaches, Reports chronic pain, Reports fatigue, Reports weakness, Reports weight loss Eyes: denies blurred vision, denies bulging eye, denies decreased vision Ears: deny: decreased hearing Ears, nose, mouth and throat: Denies dysphagia, Denies neck lump, Denies swelling in throat, Denies sore throat, Denies vertigo Cardiovascular: Reports dyspnea on exertion, Reports high blood pressure, Reports rapid heart beat, Reports shortness of breath, Denies chest pain, Denies phlebitis, Denies syncope Gastrointestinal: Reports abdominal pain, Reports bloating, Reports diarrhea, Reports loss of appetite, Reports nausea, Denies heartburn, Denies melena, Denies vomiting Genitourinary: Denies dysuria, Denies urgency Musculoskeletal: Reports atrophy, Reports gait dysfunction Musculoskeletal: absent: ankle pain, ankle stiffness, ankle swelling, elbow pain , elbow stiffness, elbow swelling, foot pain, foot stiffness, foot swelling, hand pain, hand stiffness, hand swelling, hip pain, hip stiffness, hip swelling , knee pain, knee stiffness, knee swelling, shoulder pain, shoulder stiffness, shoulder swelling, wrist pain, wrist stiffness, wrist swelling Integumentary: Denies pruritus, Denies rash Neurological: Denies numbness, Denies weakness Psychiatric: Denies anxiety, complains of depression Endocrine: Denies fatigue, Denies weight change Objective - Vital Signs Vital signs: Vital Signs Temp 98.5 F 10/12/18 07:00 Pulse 88 10/12/18 09:44 Resp 18 10/12/18 07:00 BP 111/75 10/12/18 07:00 Pulse Ox 94 L 10/12/18 07:00 Intake & Output 10/11/18 10/12/18 10/12/18 18:59 06:59 18:59 Intake Total 830 Balance 830 Intake: Oral 830 Other: Voiding Method Toilet Bedside Commode Bedpan # Voids 1 1 # Bowel Movements 1 1 - Exam General appearance: no distress, thin, sitting on the edge of the bed. - EENT Eyes: anicteric sclerae, EOMI, PERRLA, no ptosis, no scleral icterus, normal appearance ENT: hearing grossly normal, normal oropharynx, no thrush - Neck Neck: no lymphadenopathy, normal ROM, no rigidity, no stridor Carotids: bilateral: upstroke normal Thyroid: bilateral: normal size - Respiratory Respiratory: bilateral: diminished, wheezing, prolonged expiration, negative: dullness, rales, rhonchi - Cardiovascular Rhythm: regular Heart sounds: normal: S1, S2 Abnormal Heart Sounds: systolic murmur, no S3 Gallop - Gastrointestinal General gastrointestinal: hyperactive bowel sounds, soft, tenderness (ileostomy bag in place.) - Integumentary Integumentary: normal, normal turgor - Neurologic Neurologic: CNII-XII intact - Musculoskeletal Musculoskeletal: generalized weakness, strength equal bilaterally - Psychiatric Psychiatric: A&O x's 3, no appropriate affect, intact judgment & insight - Labs CBC & Chem 7: 10/12/18 00:00 10/12/18 06:39 Labs: Abnormal Lab Results - Last 24 Hours (Table) 10/12/18 10/12/18 Range/Units 00:00 06:39 WBC 14.8 H (3.8-10.6) k/uL RBC 3.69 L (3.80-5.40) m/uL Hgb 10.7 L D (11.4-16.0) gm/dL Neutrophils # 13.8 H (1.3-7.7) k/uL Lymphocytes # 0.8 L (1.0-4.8) k/uL Chloride 97 L (98-107) mmol/L Carbon Dioxide 35 H (22-30) mmol/L BUN 25 H (7-17) mg/dL Glucose 128 H (74-99) mg/dL Magnesium 1.5 L (1.6-2.3) mg/dL AST 49 H (14-36) U/L ALT 127 H (9-52) U/L Total Protein 5.6 L (6.3-8.2) g/dL Albumin 3.1 L (3.5-5.0) g/dL Microbiology - Last 24 Hours (Table) 10/09/18 16:47 Blood Culture - Preliminary Blood No Growth after 48 hours Assessment and Plan Plan: 1. Acute respiratory failure due to acute COPD exacerbation. Decrease Solu- Medrol 40 mg every 12 hours and transition to prednisone in the morning, continue nebulized treatment DuoNeb 3 mL nebulization 4 times every day, continue Pulmicort 1 mg nebulization twice every day, pulmonary consultation appreciated, patient may be a candidate for lobectomy after discussing the case with Dr. Cintron due to her significant bullous disease and/or pulmonary rehabilitation. 2. Debility due to a chronic medical illnesses. Physical therapy evaluation. 3. Chronic hypoxemic and hypercapneic respiratory failure requiring mechanical ventilation in the past and Trach which has since removed. we will continue with aggresive pulmonary toileting with Duoneb and Mucomyst we will consult for left upper lobe Consolidative process. 4. Moderate protein calorie malnutrition. we will continue with protein supplement. 5. H/O critical illness myopathy post IVIG infusion and will consult PT and OT. 6. History of Crohn's, has ileostomy on the right side. we will continue with Humira 40 mg SC q week, we will continue with Opium Tincture 2 ml po QID scheduled. 7. Generalized anxiety disorder and recurrent depression. Psychiatry consult appreciated. BuSpar and Lexapro will be discontinued and patient started on Zoloft 25 mg at bedtime. 8. Fibromyalgia with bilateral neuropathy. we will continue with Gabapentin 300 mg orally tid. 9. Sinus tachycardia. we will continue with Metoprolol 25 mg orally tid. 10. Vitamin D deficiency. we will continue with Vit D 1000 units orally daily. 11. B12 deficiency. we will continue with B12 1000 mcg sc q month. 12. Glaucoma. we will continue with Xalatan . 13. Hypomagnesemia. will continue with magnesium oxide. 14. DVT prophylaxis. we will continue with Lovenox 40 mg subcutaneously every day. 15. GI prophylaxis. we will continue with protonix 40 mg orally daily. 16. Full code. Discharge plan: Return home with homecare on Monday Impression and plan of care have been directed as dictated by the signing physician. Gaby Rothman nurse practitioner acting as scribe for signing physician.
[2018-10-12] MEDS: METOPROLOL TARTRATE 50 MG TAB PO SCH (20:29)
[2018-10-12] MEDS ORDERED: methylPREDNISolone SOD SUCCI 40 MG/ML 1 ML VIAL IV SCH (21:00)
[2018-10-12] MEDS: NYSTATIN 100,000 UNIT/ML SUSP 500,000 UNIT/5 ML CUP PO SCH (22:32)
[2018-10-12] MEDS: SERTRALINE 25 MG TAB PO SCH (22:32)
[2018-10-12] MEDS: LATANOPROST 0.005% OPHTH DROPS 2.5 ML BTL BOTH EYES SCH (22:32)
[2018-10-12] MEDS: MELATONIN 5 MG TABLET PO PRN (22:42)
[2018-10-13] MEDS: HYDROcodone/APAP 10-325MG 1 EACH TAB PO PRN ×3 (00:20→15:56)
[2018-10-13] MEDS: MORPHINE SULFATE 4 MG/ML SYRINGE IVP PRN ×4 (03:13→19:27)
[2018-10-13 05:22] LABS: T4, Free (Free Thyroxine) 0.76 ng/dL (0.78-2.19)
[2018-10-13] MEDS: LORazepam 2 MG/ML INJ IV PRN ×3 (05:32→17:42)
[2018-10-13 07:21] LABS: Glucose,Whole Blood 129 mg/dL (75-99)
[2018-10-13] MEDS: ENOXAPARIN 40 MG/0.4 ML SYRINGE SQ SCH (08:06)
[2018-10-13] MEDS: METOPROLOL TARTRATE 50 MG TAB PO SCH ×2 (08:08→19:34)
[2018-10-13] MEDS: GABAPENTIN 300 MG CAP PO SCH ×3 (08:08→22:09)
[2018-10-13] MEDS: DICYCLOMINE 10 MG CAP PO SCH ×3 (08:09→22:10)
[2018-10-13] MEDS: predniSONE 20 MG TAB PO SCH (08:09)
[2018-10-13] MEDS: FUROSEMIDE 40 MG TAB PO SCH (08:09)
[2018-10-13] MEDS: POTASSIUM CHLORIDE ER 20 MEQ TAB.ER PO SCH (08:09)
[2018-10-13] MEDS: NYSTATIN 100,000 UNIT/ML SUSP 500,000 UNIT/5 ML CUP PO SCH ×4 (08:09→22:09)
[2018-10-13] MEDS: OPIUM TINCTURE PO PRN ×2 (08:54→22:10)
[2018-10-13] MEDS: IPRATROPIUM-ALBUTEROL 3 ML NEB INHALATION SCH ×4 (09:49→20:28)
[2018-10-13] MEDS: BUDESONIDE 1 MG/2 ML NEBU INHALATION SCH ×2 (09:49→20:29)
[2018-10-13] MEDS: DIGOXIN 125 MCG TAB PO SCH (09:55)
[2018-10-13] MEDS: ONDANSETRON 4 MG/2 ML VIAL IVP PRN (10:34)
--- NOTE | 2018-10-13 10:37 | ECHOF ---
Referral Reason:Increased Heart Rate MEASUREMENTS -------- HEIGHT: 157.5 cm WEIGHT: 46.3 kg BP: 123/79 RVIDd: 3.1 cm (< 3.3) IVSd: 0.8 cm (0.6 - 1.1) LVIDd: 3.5 cm (3.9 - 5.3) LVPWd: 0.9 cm (0.6 - 1.1) IVSs: 1.3 cm LVIDs: 1.6 cm LVPWs: 1.4 cm Ao Diam: 2.4 cm (2.0 - 3.7) AV Cusp: 1.4 cm (1.5 - 2.6) LA Diam: 2.2 cm (2.7 - 3.8) MV EXCURSION: 11.540 mm (> 18.000) MV EF SLOPE: 48 mm/s (70 - 150) EPSS: 0.6 cm MV E Jefferson: 0.78 m/s MV DecT: 96 ms MV A Jefferson: 1.03 m/s MV E/A Ratio: 0.76 RAP: 5.00 mmHg RVSP: 32.45 mmHg FINDINGS -------- Resting tachycardia (HR>100bpm). This was a technically good study. The left ventricular size is normal. Left ventricular wall thickness is normal. Overall left vent ricular systolic function is normal with, an EF between 55 - 60 %. The right ventricle is normal in size. The left atrial size is normal. The right atrium is normal in size. The aortic valve is trileaflet and appears structurally normal. The mitral valve leaflets are mildly thickened. Mild mitral regurgitation is present. Mild tricuspid regurgitation present. The right ventricular systolic pressure, as measured by Doppl er, is 32.45mmHg. Pulmonic valve appears structurally normal. The aortic root size is normal. Normal inferior vena cava with normal inspiratory collapse consistent with estimated right atrial pre ssure of 5 mmHg. There is a small to moderate pericardial effusion is located near the right ventricle. Pleural Effusi on noted. CONCLUSIONS -------- 1. Resting tachycardia (HR>100bpm). 2. This was a technically good study. 3. The left ventricular size is normal. 4. Left ventricular wall thickness is normal. 5. Overall left ventricular systolic function is normal with, an EF between 55 - 60 %. 6. The right ventricle is normal in size. 7. The left atrial size is normal. 8. The right atrium is normal in size. 9. The aortic valve is trileaflet and appears structurally normal. 10. The mitral valve leaflets are mildly thickened. 11. Mild mitral regurgitation is present. 12. Mild tricuspid regurgitation present. 13. The right ventricular systolic pressure, as measured by Doppler, is 32.45mmHg. 14. Pulmonic valve appears structurally normal. 15. The aortic root size is normal. 16. Normal inferior vena cava with normal inspiratory collapse consistent with estimated right atrial pressure of 5 mmHg. 17. There is a small to moderate pericardial effusion is located near the right ventricle. Pleural Ef fusion noted. RESIDENT MEDICAL OFFICER: Melnida Darling RDCS
[2018-10-13] MEDS: FUROSEMIDE 10 MG/ML 2 ML VIAL IV SCH ×2 (12:54→22:10)
[2018-10-13] MEDS ORDERED: MELATONIN 5 MG TABLET PO SCH (21:00)
[2018-10-13] MEDS: LATANOPROST 0.005% OPHTH DROPS 2.5 ML BTL BOTH EYES SCH (22:09)
[2018-10-13] MEDS: SERTRALINE 25 MG TAB PO SCH (22:10)
--- NOTE | 2018-10-13 23:54 | P.PN ---
Subjective Progress Note Date: 10/13/18 this is a 58-year-old pleasant female patient of Dr. Heber James. She has underlying history of severe COPD, fibromyalgia, Crohn's disease with ileostomy , previous right-sided pneumothorax, chronic left upper lobe inflammatory opacification followed by Dr. 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 Mistry treated with Breo ellipta and albuterol in the outpatient setting. Also required home O2, she was transferred from [facility], admitted there 07/18/2018 secondary to COPD exacerbation. Patient required mechanical ventilation on admission as they were planning to have Trach and PEG but they noticed large Bullous disease on the left side and because of pneumothorax concerns she was transferred at that time to [facility] for evaluation by thoracic surgery and she ended-up getting her Trach and PEG tubbe and she developped to have critical illness myopathy was treated with IVIG and and she was transferred to [facility] for sometime then sent to [facility] , patient was there for about 10 days and after that she was discharged because of insurance coverage and went to her sister's house [place] where she is the primary caregiver for her and herself as she cannot go back to her house which is a trilevel house with a temperature 67, patient apparently has not been taking her medication over the last 24 hours, yesterday she felt extremely short of breath than she was extremely anxious and depressed EMS was called and the patient was brought into the ER at [facility] where she was found to have a sinus tachycardia with significant dyspnea she was given Solu-Medrol nebulized treatment and she was admitted to the hospital, pulmonary consultation was obtained from . 10/11: Patient is feeling better about everything in general and her breathing is improved from yesterday. She does complain of feeling jumpy and her heart rate increased. Solu-Medrol will be decreased to 40 mg IV every 8 hours. She states she is slept good last night. She is planning to return home at the time of discharge. Patient has met with Dr. Cintron with plan for evaluation at [facility] for blebectomy. Patient has been seen by Dr. Lara from psychiatry with recommendations to discontinue Lexapro, discontinue BuSpar and Ativan and Zoloft 25 mg daily at bedtime. 10/12: Patient is breathing status continues to improve. She states she is still anxious but a little bit better from yesterday. She has less edema this morning. Solu-Medrol will be decreased to 40 mg every 12 hours and start prednisone in the morning. Plan to monitor the patient another 24 hours and probable discharge on Monday. 10/13 patient complains of sob fatigue dysonea on exertion, has noticeable ptosis , insomnia, no motivation. echocardiogram show pleural effusion and pericardial effusion ef 55-60 no patient is started on lasix iv , thoracic us to be obtained, consult with cardiology for pericardial effusion. labs to be oftained for myasthenia gravis, secondary to above Objective - Vital Signs Vital signs: Vital Signs Temp 98 F 10/13/18 07:00 Pulse 116 H 10/13/18 10:00 Resp 18 10/13/18 07:00 BP 115/79 10/13/18 07:00 Pulse Ox 96 10/13/18 07:00 Intake & Output 10/12/18 10/13/18 10/13/18 18:59 06:59 18:59 Weight 47.174 kg Other: Voiding Method Bedside Commode # Voids 2 4 2 # Bowel Movements 2 1 - Constitutional General appearance: Present: average body habitus, cooperative, no acute distress - EENT Eyes: Present: anicteric sclerae, dentition normal, normal appearance ENT: Present: NA/AT, normal oropharynx - Neck Neck: Present: normal ROM - Respiratory Respiratory: bilateral: CTA, negative: diminished, dullness - Cardiovascular Rhythm: regular Heart sounds: normal: S1, S2 Abnormal Heart Sounds: Absent: systolic murmur, diastolic murmur, rub, S3 Gallop , S4 Gallop, click, other - Gastrointestinal General gastrointestinal: Present: normal bowel sounds, soft - Integumentary Integumentary: Present: decreased turgor, normal - Neurologic Neurologic: Present: CNII-XII intact - Musculoskeletal Musculoskeletal: Present: gait normal, strength equal bilaterally - Psychiatric Psychiatric: Present: A&O x's 3, appropriate affect, intact judgment & insight - Labs CBC & Chem 7: 10/12/18 00:00 10/12/18 06:39 Labs: Abnormal Lab Results - Last 24 Hours (Table) 10/12/18 10/13/18 Range/Units 06:39 07:19 POC Glucose (mg/dL) 129 H (75-99) mg/dL TSH 0.135 L (0.465-4.680) mIU/L Free T4 0.76 L (0.78-2.19) ng/dL Microbiology - Last 24 Hours (Table) 10/09/18 16:47 Blood Culture - Preliminary Blood No Growth after 72 hours Assessment and Plan Plan: . Acute respiratory failure due to acute COPD exacerbation. Decrease Solu- Medrol 40 mg every 12 hours and transition to prednisone in the morning, continue nebulized treatment DuoNeb 3 mL nebulization 4 times every day, continue Pulmicort 1 mg nebulization twice every day, pulmonary consultation appreciated, patient may be a candidate for lobectomy after discussing the case with Dr. Cintron due to her significant bullous disease and/or pulmonary rehabilitation. 2. moderate pericardial effusion and pleural effusion leading to weakness and Debility due to a chronic medical illnesses. consult cardiology and obtain thoracic us. will start iv lasix 20 q 12h Physical therapy evaluation. 3. Chronic hypoxemic and hypercapneic respiratory failure requiring mechanical ventilation in the past and Trach which has since removed. we will continue with aggresive pulmonary toileting with Duoneb and Mucomyst we will consult for left upper lobe Consolidative process. 4. Moderate protein calorie malnutrition. we will continue with protein supplement. 5. H/O critical illness myopathy post IVIG infusion and will consult PT and OT. 6. History of Crohn's, has ileostomy on the right side. we will continue with Humira 40 mg SC q week, we will continue with Opium Tincture 2 ml po QID scheduled. 7. Generalized anxiety disorder and recurrent depression. Psychiatry consult appreciated. BuSpar and Lexapro will be discontinued and patient started on Zoloft 25 mg at bedtime. 8. Fibromyalgia with bilateral neuropathy. we will continue with Gabapentin 300 mg orally tid. 9. Sinus tachycardia. we will continue with Metoprolol 25 mg orally tid. 10. Vitamin D deficiency. we will continue with Vit D 1000 units orally daily. 11. B12 deficiency. we will continue with B12 1000 mcg sc q month. 12. Glaucoma. we will continue with Xalatan . 13. Hypomagnesemia. will continue with magnesium oxide. 14. DVT prophylaxis. we will continue with Lovenox 40 mg subcutaneously every day. 15. GI prophylaxis. we will continue with protonix 40 mg orally daily. 16. Full code. Discharge plan: Return home with homecare on Monday
[2018-10-14] MEDS: MORPHINE SULFATE 4 MG/ML SYRINGE IVP PRN ×2 (00:05→07:36)
[2018-10-14] MEDS: LORazepam 2 MG/ML INJ IV PRN ×3 (01:19→18:10)
[2018-10-14] MEDS: NYSTATIN 100,000 UNIT/ML SUSP 500,000 UNIT/5 ML CUP PO SCH ×4 (07:36→22:19)
[2018-10-14] MEDS: ENOXAPARIN 40 MG/0.4 ML SYRINGE SQ SCH (07:36)
[2018-10-14] MEDS: DIGOXIN 125 MCG TAB PO SCH (07:37)
[2018-10-14] MEDS: DICYCLOMINE 10 MG CAP PO SCH ×3 (07:37→22:20)
[2018-10-14] MEDS: POTASSIUM CHLORIDE ER 20 MEQ TAB.ER PO SCH (07:37)
[2018-10-14] MEDS: METOPROLOL TARTRATE 50 MG TAB PO SCH ×2 (07:37→19:11)
[2018-10-14] MEDS: predniSONE 20 MG TAB PO SCH (07:37)
[2018-10-14] MEDS: GABAPENTIN 300 MG CAP PO SCH ×3 (07:37→22:20)
[2018-10-14 08:13] LABS: Blood Urea Nitrogen 43 mg/dL (7-17); Calcium 9.7 mg/dL (8.4-10.2); Chloride 91 mmol/L (98-107); Glucose 83 mg/dL (74-99); Potassium 4.5 mmol/L (3.5-5.1); Sodium 138 mmol/L (137-145)
[2018-10-14 08:20] LABS: Anion Gap 5 mmol/L
[2018-10-14 08:31] LABS: Carbon Dioxide 42 mmol/L (22-30)
[2018-10-14 08:35] LABS: Basophils % (A) 0 %; Eosinophils # (A) 0.1 k/uL (0-0.7); Eosinophils % (A) 0 %; HCT 35.6 % (34.0-46.0); HGB 11.4 gm/dL (11.4-16.0); Lymphocytes # (A) 3.1 k/uL (1.0-4.8); Lymphocytes % (A) 19 %; MCH 29.1 pg (25.0-35.0); MCHC 32.1 g/dL (31.0-37.0); MCV 90.7 fL (80.0-100.0); Monocytes # (A) 0.4 k/uL (0-1.0); Monocytes % (A) 2 %; Neutrophils # (A) 12.5 k/uL (1.3-7.7); Neutrophils % (A) 78 %; Platelet Count 330 k/uL (150-450); RBC 3.92 m/uL (3.80-5.40); RDW 14.2 % (11.5-15.5); WBC 16.1 k/uL (3.8-10.6)
[2018-10-14] MEDS: BUDESONIDE 1 MG/2 ML NEBU INHALATION SCH ×2 (08:35→20:23)
[2018-10-14] MEDS: IPRATROPIUM-ALBUTEROL 3 ML NEB INHALATION SCH ×4 (08:35→20:23)
[2018-10-14 08:53] LABS: ABG Base Excess 18.6 mmol/L; ABG Oxygen Saturation 96.5 % (94-97); ABG PCO2 59 mmHg (35-45); ABG PH 7.46 (7.35-7.45); ABG PO2 77 mmHg (83-108); ABG TCO2 44 mmol/L (19-24)
[2018-10-14 08:58] LABS: ABG HCO3 42 mmol/L (21-25)
[2018-10-14] MEDS ORDERED: COLCHICINE 0.6 MG EACH PO SCH ×2 (09:15→21:00)
[2018-10-14] MEDS: VERAPAMIL 40 MG TAB PO SCH ×3 (09:39→22:20)
[2018-10-14] MEDS: HYDROcodone/APAP 10-325MG 1 EACH TAB PO PRN ×2 (09:53→14:38)
--- NOTE | 2018-10-14 10:59 | P.CRDCN ---
History of Present Illness History of present illness: this is a pleasant 58-year-old female past medical history significant for hypertension, dyslipidemia, COPD, arthritis and chronic respiratory failure. She denies history of coronary artery disease. She follows with Dr. Verma in the office. She has a lengthy pulmonary history and was recently in the hospital intubated and subsequently underwent tracheostomy placement [facility].She presented to the hospital 5 days ago and has been receiving steroids as well as IV lasix. Since arrival she states her breathing has greatly improved however she is not back to her baseline. An echocardiogram was obtained revealed preserved LV systolic function with EF 55-60% with small to moderate pericardial effusion located the right ventricle. She denies symptoms of chest discomfort, dizziness or palpitations. thoracentesis has been ordered by primary care team. She also complains of increased weakness and fatigue since June. she suffers from sinus tachycardia regularly that seems to be worse with exertion during this admission. EKG reveals sinus tachycardia with heart rate 109. chest x-ray reveals evidence of extensive bullous emphysematous changes which are stable with no acute cardiopulmonary process noted. Laboratory data reviewed, WBC 16.1, hemoglobin 11.4, platelets 330, pCO2 59, bicarb 42, sodium 138, potassium 4.5, creatinine 0.74, TSH 0.135, free T4 0.76. Current cardiac medications include digoxin 125 mcg daily, lasix 40 mg daily, lopressor 25 mg daily and potassium supplementation. Lopressor was increased per primary care team to 50 mg BID. At the time of my exam: CONSTITUTIONAL: Denies fever. Denies chills. EYES: Denies blurred vision. Denies vision changes. Denies eye pain. EARS, NOSE, MOUTH & THROAT: Denies headache. Denies sore throat. Denies ear pain. CARDIOVASCULAR: Denies chest pain. Denies shortness of breath. Denies orthopnea. Denies PND. Denies palpitations. RESPIRATORY: Denies cough. GASTROINTESTINAL: Denies abdominal pain. Denies diarrhea. Denies constipation. Denies nausea. Denies vomiting. MUSCULOSKELETAL: Denies myalgias. INTEGUMENTARY: Denies pruitis. Denies rash. NEUROLOGIC: Denies numbness. Denies tingling. Denies weakness. PSYCHIATRIC: Denies anxiety. Denies depression. ENDOCRINE: Denies fatigue. Denies weight change. Denies polydipsia. Denies polyurina. GENITOURINARY: Denies burning, hematuria or urgency with micturation. HEMATOLOGIC: Denies history of anemia. Denies bleeding. Blood pressure 118/77 heart rate 88 afebrile maintaining oxygen saturation on nasal cannula GENERAL: This is a 58-year-old female in no apparent distress at the time of my examination. HEENT: Head is atraumatic, normocephalic. Pupils are equal, round. Sclerae anicteric. Conjunctivae are clear. Mucous membranes of the mouth are moist. Neck is supple. There is no jugular venous distention. No carotid bruit is heard. LUNGS: Rhonchi noted to right middle lobe with faint expiratory wheezes noted. No rales. No chest wall tenderness is noted on palpation or with deep breathing. Diminished bilaterally. HEART: Regular rate and rhythm without murmurs, rubs or gallops. S1 and S2 heard. EXTREMITIES: No evidence of peripheral edema and no calf tenderness noted. VASCULAR: Radial and dorsalis pedis pulses palpated, no evidence of clubbing. ASSESSMENT Shortness of breath due to acute exacerbation of chronic COPD Pericardial effusion Sinus tachycardia Hypertension Dyslipidemia Chronic respiratory failure PLAN Add her on small dose of colchicine 0.6 mg daily for 2 weeks. Discontinue digoxin and start on verapamil 40 mg TID for better control of her heart rates. Repeat echocardiogram in 3 weeks as an outpatient. thank you kindly for this consultation. Nurse Practitioner note has been reviewed, I agree with a documented findings and plan of care. Patient was seen and examined. Past Medical History Past Medical History: COPD, Fibromyalgia, GERD/Reflux, GI Bleed, Hyperlipidemia , Hypertension, Osteoarthritis (OA), Pneumonia, Syncope Additional Past Medical History / Comment(s): in past took meds for high blood pressure.COPD-02 3 liters n/c atc, crohn's, bowel obstructions, lower GI bleeds , hiatal hernia, osteoporosis, arthritis multiple joints, seasonal allergies, right-sided pneumothorax x2; ventilator 07/24/18 - transfer from [facility] r/t [place] History of Any Multi-Drug Resistant Organisms: None Reported Past Surgical History: Breast Surgery, Cholecystectomy, Hernia Repair, Hysterectomy, Orthopedic Surgery Additional Past Surgical History / Comment(s): Multiple bowel surgeries including total colectomy/ileostomy, ileostomy moved/repaired, R tube and R ovary removed due tectopic , total hysterectomy, leep procedure, laparoscopy for endometriosis, L breast lumpectomy-benign, r breast core bx- benign, EGD/colonoscopies. Right-sided Thora-vent placement May 09 and May 19. Eye surgery bilateral,arthroscopic knee surgery on he right due to ACL and Maniscal tear. Past Anesthesia/Blood Transfusion Reactions: No Reported Reaction Smoking Status: Former smoker - Past Family History Mother Family Medical History: Cancer, COPD, Hypertension Additional Family Medical History / Comment(s): Mother at age 83 from COPD and osteoarthritis and had skin cancer. Father Family Medical History: Cancer, CVA/TIA, Dementia, Diabetes Mellitus Additional Family Medical History / Comment(s): Father is 90yrs old. Brother(s) Family Medical History: Cancer Additional Family Medical History / Comment(s): Patient had 5 brothers and one of them from melanoma. Sister(s) History Unknown: Yes Family Medical History: No Reported History Additional Family Medical History / Comment(s): Patient has one sister. Patient has no kids. Medications and Allergies Home Medications Medication Instructions Recorded Confirmed Type Adalimumab [Humira Pen] 40 mg SQ TU 06/21/14 10/09/18 History busPIRone HCl [Buspar] 10 mg PO BID 05/09/17 10/09/18 History Latanoprost Ophth [Xalatan 0.005%] 1 drop BOTH EYES DAILY 05/21/17 10/09/18 History Cyanocobalamin [Vitamin B-12 1,000 mcg SQ Q30D 07/24/18 10/09/18 History Injection] Dicyclomine [Bentyl] 10 mg PO TID 07/24/18 10/09/18 History Ondansetron [Zofran] 4 mg PO Q6H PRN 07/24/18 10/09/18 History Albuterol Nebulized [Ventolin 2.5 mg INHALATION RT-TID PRN 09/09/18 10/09/18 History Nebulized] Digoxin [Digitek] 125 mcg PO DAILY 09/09/18 10/09/18 History Ipratropium-Albuterol Nebulize 3 ml INHALATION RT-Q8H 09/09/18 10/09/18 History [Duoneb 0.5 mg-3 mg/3 ml Soln] Loperamide [Imodium] 2 mg PO Q6H PRN 09/09/18 10/09/18 History Metoprolol Tartrate [Lopressor] 25 mg PO DAILY 09/09/18 10/09/18 History Budesonide 1 mg INHALATION RT-BID 09/27/18 10/09/18 History Furosemide [Lasix] 40 mg PO DAILY 09/27/18 10/09/18 History Gabapentin [Neurontin] 300 mg PO TID 09/27/18 10/09/18 History HYDROcodone/APAP 10-325MG [Morgan 1 tab PO Q4H PRN 09/27/18 10/09/18 History 10-325] Nicotine Polacrilex [Nicorette] 4 mg BUCCAL Q6H PRN 09/27/18 10/09/18 History Opium Tincture 10mg/1ml 20 mg PO QID PRN 09/27/18 10/09/18 History Potassium Chloride ER [K-Dur 20] 20 meq PO DAILY 09/27/18 10/09/18 History predniSONE 20 mg PO BID #10 tab 10/03/18 10/09/18 Rx Azithromycin [Zithromax Z-pack] See Taper PO DIRECTED 10/09/18 10/09/18 History Allergies Allergy/AdvReac Type Severity Reaction Status Date / Time Iodinated Contrast- Oral and Allergy Anaphylaxis Verified 10/09/18 16:05 IV Dye pregabalin [From Lyrica] Allergy Unknown Verified 10/09/18 16:05 rofecoxib [From Vioxx] Allergy Unknown Verified 10/09/18 16:05 Sulfa (Sulfonamide Allergy Rash/Hives Verified 10/09/18 16:05 Antibiotics) aspirin AdvReac Internal Verified 10/09/18 16:05 Bleeding timolol [Timolol] AdvReac Nausea & Verified 10/09/18 16:05 Vomiting Physical Exam Vitals: Vital Signs Temp Pulse Pulse Pulse Resp BP Pulse Ox 10/14/18 08:45 92 10/14/18 08:35 88 10/14/18 07:00 97.8 F 88 22 118/77 95 10/13/18 23:46 98.7 F 104 H 20 107/76 94 L 10/13/18 22:08 105 H 102/70 12/15/18 20:45 100 10/13/18 20:29 108 H 97 10/13/18 19:31 98.3 F 126 H 20 105/73 97 10/13/18 16:13 92 10/13/18 16:02 92 10/13/18 14:28 98.0 F 106 H 17 113/76 95 10/13/18 13:14 90 10/13/18 13:02 90 Intake and Output 10/13/18 10/14/18 10/14/18 22:59 06:59 14:59 Other: # Voids 3 3 Results 10/14/18 07:11 10/14/18 07:11 CBC 10/14/18 Range/Units 07:11 WBC 16.1 H (3.8-10.6) k/uL RBC 3.92 (3.80-5.40) m/uL Hgb 11.4 (11.4-16.0) gm/dL Hct 35.6 (34.0-46.0) % Plt Count 330 (150-450) k/uL Comprehensive Metabolic Panel 10/14/18 Range/Units 07:11 Sodium 138 (137-145) mmol/L Potassium 4.5 (3.5-5.1) mmol/L Chloride 91 L (98-107) mmol/L Carbon Dioxide 42 H* (22-30) mmol/L BUN 43 H (7-17) mg/dL Creatinine 0.74 (0.52-1.04) mg/dL Glucose 83 (74-99) mg/dL Calcium 9.7 (8.4-10.2) mg/dL Current Medications Generic Name Dose Route Start Last Admin Trade Name Freq PRN Reason Stop Dose Admin Hydrocodone Bitart/Acetaminophen 1 each 10/09/18 22:10 10/14/18 09:53 Morgan 10 PO 1 each Q4H PRN Administration Pain Albuterol/Ipratropium 3 ml 10/09/18 20:00 10/14/18 08:35 Duoneb 0.5 Mg-3 Mg/3 Ml Soln INHALATION 3 ml RT-QID MEENU Administration Budesonide 1 mg 10/10/18 08:00 10/14/18 08:35 Pulmicort INHALATION 1 mg RT-BID MEENU Administration Cyanocobalamin 1,000 mcg 10/09/18 22:15 10/09/18 23:26 Vitamin B-12 SQ Not Given Q30D [facility] Dicyclomine HCl 10 mg 10/09/18 22:15 10/14/18 07:37 Bentyl PO 10 mg TID [facility] Administration Enoxaparin Sodium 40 mg 10/10/18 09:00 10/14/18 07:36 Lovenox SQ 40 mg DAILY MEENU Administration Gabapentin 300 mg 10/09/18 22:15 10/14/18 07:37 Neurontin PO 300 mg TID [facility] Administration Latanoprost 1 drops 10/10/18 09:55 10/13/18 22:09 Xalatan 0.005% BOTH EYES 1 drops HS [facility] Administration Loperamide HCl 2 mg 10/09/18 22:10 Imodium PO Q6H PRN Diarrhea Lorazepam 1 mg 10/09/18 18:20 10/14/18 07:53 Ativan IV 1 mg Q4HR PRN Administration Anxiety Melatonin 5 mg 10/13/18 21:00 10/13/18 22:10 Melatonin PO 5 mg HS [facility] Administration Metoprolol Tartrate 50 mg 10/12/18 21:00 10/14/18 07:37 Lopressor PO 50 mg BID [facility] Administration Morphine Sulfate 4 mg 10/09/18 18:20 10/14/18 07:36 Morphine Sulfate (Inj) IVP 4 mg Q4HR PRN Administration Moderate Pain Nicotine Polacrilex 4 mg 10/09/18 22:10 Nicorette Gum BUCCAL Q6H PRN addiction Adalimumab 40mg 40 mg 10/09/18 09:00 10/09/18 22:35 SQ Not Given [facility] Opium Tincture 10mg/ 20 mg 10/10/18 10:07 10/13/18 22:10 1ml PO 20 mg QID PRN Administration BOWEL/DIARRHEA ISSUES Nystatin 500,000 unit 10/12/18 22:00 10/14/18 07:36 Mycostatin Oral Susp PO 500,000 unit QID [facility] Administration Ondansetron HCl 4 mg 10/13/18 10:22 10/13/18 10:34 Zofran IVP 4 mg Q6HR PRN Administration Nausea And Vomiting Potassium Chloride 20 meq 10/10/18 09:00 10/14/18 07:37 K-Dur 20 PO 20 meq DAILY [facility] Administration Prednisone 40 mg 10/13/18 09:00 10/14/18 07:37 PO 40 mg DAILY MEENU Administration Sertraline HCl 25 mg 10/11/18 21:00 10/13/18 22:10 Zoloft PO 25 mg 2100 MEENU Administration Verapamil HCl 40 mg 10/14/18 09:15 10/14/18 09:39 Isoptin PO 40 mg TID MEENU Administration Intake and Output 10/13/18 10/14/18 10/14/18 22:59 06:59 14:59 Other: # Voids 3 3 10/14/18 07:11 10/14/18 07:11
[2018-10-14] MEDS ORDERED: ACETAMINOPHEN TAB 325 MG TAB PO PRN (12:14)
[2018-10-14] MEDS: COLCHICINE 0.6 MG EACH PO SCH (12:28)
[2018-10-14] MEDS: OPIUM TINCTURE PO PRN ×2 (14:38→22:19)
[2018-10-14] MEDS ORDERED: traMADol 50 MG TAB PO SCH (16:00)
[2018-10-14] MEDS: ONDANSETRON 4 MG/2 ML VIAL IVP PRN (16:33)
[2018-10-14] MEDS ORDERED: MORPHINE SULFATE 2 MG/ML SYRINGE IVP ONE (17:10)
[2018-10-14] MEDS: oxyCODONE-APAP 7.5-325MG 1 EACH TAB PO PRN (19:11)
[2018-10-14] MEDS ORDERED: MELATONIN 5 MG TABLET PO SCH (21:00)
[2018-10-14] MEDS: LATANOPROST 0.005% OPHTH DROPS 2.5 ML BTL BOTH EYES SCH (22:19)
[2018-10-14] MEDS: SERTRALINE 25 MG TAB PO SCH (22:20)
--- NOTE | 2018-10-14 22:51 | P.PN ---
Subjective this is a 58-year-old pleasant female patient of Dr. Heber James. 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 Mistry treated with Breo ellipta and albuterol in the outpatient setting. Also required home O2, she was transferred from [facility], admitted there 07/18/2018 secondary to COPD exacerbation. Patient required mechanical ventilation on admission as they were planning to have Trach and PEG but they noticed large Bullous disease on the left side and because of pneumothorax concerns she was transferred at that time to [facility] for evaluation by thoracic surgery and she ended-up getting her Trach and PEG tubbe and she developped to have critical illness myopathy was treated with IVIG and and she was transferred to [facility] hospital for sometime then sent to [facility] , patient was there for about 10 days and after that she was discharged because of insurance coverage and went to her sister's house [place] where she is the primary caregiver for her and herself as she cannot go back to her house which is a trilevel house with a temperature 67, patient apparently has not been taking her medication over the last 24 hours, yesterday she felt extremely short of breath than she was extremely anxious and depressed EMS was called and the patient was brought into the ER at [facility] where she was found to have a sinus tachycardia with significant dyspnea she was given Solu-Medrol nebulized treatment and she was admitted to the hospital, pulmonary consultation was obtained from . 10/11: Patient is feeling better about everything in general and her breathing is improved from yesterday. She does complain of feeling jumpy and her heart rate increased. Solu-Medrol will be decreased to 40 mg IV every 8 hours. She states she is slept good last night. She is planning to return home at the time of discharge. Patient has met with Dr. Cintron with plan for evaluation at [facility] for blebectomy. Patient has been seen by Dr. Lara from psychiatry with recommendations to discontinue Lexapro, discontinue BuSpar and Ativan and Zoloft 25 mg daily at bedtime. 10/12: Patient is breathing status continues to improve. She states she is still anxious but a little bit better from yesterday. She has less edema this morning. Solu-Medrol will be decreased to 40 mg every 12 hours and start prednisone in the morning. Plan to monitor the patient another 24 hours and probable discharge on Monday. 10/13 patient complains of sob fatigue dysonea on exertion, has noticeable ptosis , insomnia, no motivation. echocardiogram show pleural effusion and pericardial effusion ef 55-60 no patient is started on lasix iv , thoracic us to be obtained, consult with cardiology for pericardial effusion. labs to be oftained for myasthenia gravis, secondary to above , patient complains of generalized myalgia, poorly arthritis, and oral sores, coxsackievirus test is requested, patient's pain is uncontrolled, her Otis 10 is not holding her pain, patient requests morphine or Dilaudid, we'll going to change the Otis to Percocet, as she is on Zoloft 25 mg initiated by psychiatry, this could be related changed to Cymbalta 30 mg twice a day to address chronic pain status, patient is also on opium chronically for her colitis.. Cardiology has started her on colchicine for the peripheral effusion , thoracic ultrasound to be done in a.m., patient needs to be evaluated for possible thoracentesis however this needs to be reevaluated. Pleural effusion was only noted to echocardiogram, not to x-rays physical therapy in a patient with therapy requested, patient has endurance problems including weakness. Myasthenia gravis panel pending Objective - Vital Signs Vital signs: Vital Signs Temp 97.8 F 10/14/18 07:00 Pulse 92 10/14/18 08:45 Resp 22 10/14/18 07:00 BP 118/77 10/14/18 07:00 Pulse Ox 95 10/14/18 07:00 Intake & Output 10/13/18 10/14/18 10/14/18 18:59 06:59 18:59 Other: # Voids 4 3 3 # Bowel Movements 1 - Constitutional General appearance: Present: average body habitus, cooperative - EENT Eyes: Present: anicteric sclerae, EOMI, PERRLA, normal appearance - Neck Neck: Present: normal ROM - Respiratory Respiratory: bilateral: CTA, negative: diminished, dullness, rales, prolonged expiration, prolonged inspiration - Cardiovascular Rhythm: regular Heart sounds: normal: S1, S2 - Gastrointestinal General gastrointestinal: Present: normal bowel sounds, soft - Integumentary Integumentary: Present: decreased turgor, normal - Neurologic Neurologic: Present: CNII-XII intact, focal deficits - Musculoskeletal Musculoskeletal: Present: gait normal, strength equal bilaterally - Psychiatric Psychiatric: Present: A&O x's 3, appropriate affect, intact judgment & insight - Labs CBC & Chem 7: 10/14/18 07:11 10/14/18 07:11 Labs: Abnormal Lab Results - Last 24 Hours (Table) 10/14/18 10/14/18 10/14/18 Range/Units 07:11 07:11 08:48 WBC 16.1 H (3.8-10.6) k/uL Neutrophils # 12.5 H (1.3-7.7) k/uL ABG pH 7.46 H (7.35-7.45) ABG pCO2 59 H (35-45) mmHg ABG pO2 77 L (83-108) mmHg ABG HCO3 42 H* (21-25) mmol/L ABG Total CO2 44 H (19-24) mmol/L Chloride 91 L (98-107) mmol/L Carbon Dioxide 42 H* (22-30) mmol/L BUN 43 H (7-17) mg/dL Microbiology - Last 24 Hours (Table) 10/09/18 16:47 Blood Culture - Preliminary Blood No Growth after 96 hours Laboratory Results WBC 16.1 k/uL (3.8-10.6) H 10/14/18 07:11 RBC 3.92 m/uL (3.80-5.40) 10/14/18 07:11 Hgb 11.4 gm/dL (11.4-16.0) 10/14/18 07:11 Hct 35.6 % (34.0-46.0) 10/14/18 07:11 MCV 90.7 fL (80.0-100.0) 10/14/18 07:11 MCH 29.1 pg (25.0-35.0) 10/14/18 07:11 MCHC 32.1 g/dL (31.0-37.0) 10/14/18 07:11 RDW 14.2 % (11.5-15.5) 10/14/18 07:11 Plt Count 330 k/uL (150-450) 10/14/18 07:11 Neutrophils % 78 % 10/14/18 07:11 Lymphocytes % 19 % 10/14/18 07:11 Monocytes % 2 % 10/14/18 07:11 Eosinophils % 0 % 10/14/18 07:11 Basophils % 0 % 10/14/18 07:11 Neutrophils # 12.5 k/uL (1.3-7.7) H 10/14/18 07:11 Lymphocytes # 3.1 k/uL (1.0-4.8) 10/14/18 07:11 Monocytes # 0.4 k/uL (0-1.0) 10/14/18 07:11 Eosinophils # 0.1 k/uL (0-0.7) 10/14/18 07:11 Basophils # 0.0 k/uL (0-0.2) 10/14/18 07:11 Hypochromasia Moderate 10/12/18 00:00 PT 10.6 sec (9.0-12.0) 10/09/18 15:34 INR 1.0 (<1.2) 10/09/18 15:34 APTT 24.2 sec (22.0-30.0) 10/09/18 15:34 Sample Site lrad 10/14/18 08:48 ABG pH 7.46 (7.35-7.45) H 10/14/18 08:48 ABG pCO2 59 mmHg (35-45) H 10/14/18 08:48 ABG pO2 77 mmHg (83-108) L 10/14/18 08:48 ABG HCO3 42 mmol/L (21-25) H* 10/14/18 08:48 ABG Total CO2 44 mmol/L (19-24) H 10/14/18 08:48 ABG O2 Saturation 96.5 % (94-97) 10/14/18 08:48 ABG Base Excess 18.6 mmol/L 10/14/18 08:48 Que Test Yes 10/14/18 08:48 FiO2 32 % 10/14/18 08:48 Sodium 138 mmol/L (137-145) 10/14/18 07:11 Potassium 4.5 mmol/L (3.5-5.1) 10/14/18 07:11 Chloride 91 mmol/L (98-107) L 10/14/18 07:11 Carbon Dioxide 42 mmol/L (22-30) H* 10/14/18 07:11 Anion Gap 5 mmol/L 10/14/18 07:11 BUN 43 mg/dL (7-17) H 10/14/18 07:11 Creatinine 0.74 mg/dL (0.52-1.04) 10/14/18 07:11 Est GFR (CKD-EPI)AfAm >90 (>60 ml/min/1.73 sqM) 10/14/18 07:11 Est GFR (CKD-EPI)NonAf >90 (>60 ml/min/1.73 sqM) 10/14/18 07:11 Glucose 83 mg/dL (74-99) 10/14/18 07:11 POC Glucose (mg/dL) 129 mg/dL (75-99) H 10/13/18 07:19 POC Glu Multi Operation [employer]ing Machine Set[employer] ID Gaby Phoenix 10/13/18 07:19 Calcium 9.7 mg/dL (8.4-10.2) 10/14/18 07:11 Magnesium 1.5 mg/dL (1.6-2.3) L 10/12/18 06:39 Total Bilirubin 0.2 mg/dL (0.2-1.3) 10/12/18 06:39 AST 49 U/L (14-36) H 10/12/18 06:39 ALT 127 U/L (9-52) H 10/12/18 06:39 Alkaline Phosphatase 85 U/L (38-126) 10/12/18 06:39 Total Creatine Kinase <20 U/L (30-135) L 10/09/18 15:34 CK-MB (CK-2) 0.9 ng/mL (0.0-2.4) 10/09/18 15:34 CK-MB (CK-2) Rel Index 10/09/18 15:34 Troponin I <0.012 ng/mL (0.000-0.034) 10/09/18 15:34 NT-Pro-B Natriuret Pep 59 pg/mL 10/09/18 15:34 Total Protein 5.6 g/dL (6.3-8.2) L 10/12/18 06:39 Albumin 3.1 g/dL (3.5-5.0) L 10/12/18 06:39 Triglycerides 207 mg/dL (<150) H 10/09/18 15:34 Cholesterol 198 mg/dL (<200) 10/09/18 15:34 LDL Cholesterol, Calc 91 mg/dL (0-99) 10/09/18 15:34 HDL Cholesterol 66 mg/dL (40-60) H 10/09/18 15:34 Amylase 42 U/L (30-110) 10/09/18 15:34 Lipase 156 U/L (23-300) 10/09/18 15:34 TSH 0.135 mIU/L (0.465-4.680) L 10/12/18 06:39 Free T4 0.76 ng/dL (0.78-2.19) L 10/12/18 06:39 Urine Color Yellow 10/09/18 18:50 Urine Appearance Clear (Clear) 10/09/18 18:50 Urine pH 6.5 (5.0-8.0) 10/09/18 18:50 Ur Specific [place] 1.020 (1.001-1.035) 10/09/18 18:50 Urine Protein 1+ (Negative) H 10/09/18 18:50 Urine Glucose (UA) Negative (Negative) 10/09/18 18:50 Urine Ketones 1+ (Negative) H 10/09/18 18:50 Urine Blood Negative (Negative) 10/09/18 18:50 Urine Nitrite Negative (Negative) 10/09/18 18:50 Urine Bilirubin Negative (Negative) 10/09/18 18:50 Urine Urobilinogen <2.0 mg/dL (<2.0) 10/09/18 18:50 Ur Leukocyte Esterase Negative (Negative) 10/09/18 18:50 Urine RBC 3 /hpf (0-5) 10/09/18 18:50 Urine WBC 1 /hpf (0-5) 10/09/18 18:50 Hyaline Casts 1 /lpf (0-2) 10/09/18 18:50 Urine Mucus Rare /hpf (None) H 10/09/18 18:50 Urine Opiates Screen Detected (NotDetected) H 10/09/18 18:50 Ur Oxycodone Screen Not Detected (NotDetected) 10/09/18 18:50 Urine Methadone Screen Not Detected (NotDetected) 10/09/18 18:50 Ur Propoxyphene Screen Not Detected (NotDetected) 12 18:50 Ur Barbiturates Screen Not Detected (NotDetected) 10/09/18 18:50 U Tricyclic Antidepress Not Detected (NotDetected) 10/09/18 18:50 Ur Phencyclidine Scrn Not Detected (NotDetected) 10/09/18 18:50 Ur Amphetamines Screen Not Detected (NotDetected) 10/09/18 18:50 U Methamphetamines Scrn Not Detected (NotDetected) 10/09/18 18:50 U Benzodiazepines Scrn Not Detected (NotDetected) 10/09/18 18:50 Urine Cocaine Screen Not Detected (NotDetected) 10/09/18 18:50 U Marijuana (THC) Screen Not Detected (NotDetected) 10/09/18 18:50 Serum Alcohol <10 mg/dL 10/09/18 15:34 Assessment and Plan Plan: . Acute respiratory failure due to acute COPD exacerbation. Decrease Solu- Medrol 40 mg every 12 hours and transition to prednisone in the morning, continue nebulized treatment DuoNeb 3 mL nebulization 4 times every day, continue Pulmicort 1 mg nebulization twice every day, pulmonary consultation appreciated, patient may be a candidate for lobectomy after discussing the case with Dr. Cintron due to her significant bullous disease and/or pulmonary rehabilitation. 2. moderate pericardial effusion and pleural effusion leading to weakness and Debility due to a chronic medical illnesses. consult cardiology and obtain thoracic us. will start iv lasix 20 q 12h Physical therapy evaluation. 3. Chronic hypoxemic and hypercapneic respiratory failure requiring mechanical ventilation in the past and Trach which has since removed. we will continue with aggresive pulmonary toileting with Duoneb and Mucomyst we will consult for left upper lobe Consolidative process. 4. Moderate protein calorie malnutrition. we will continue with protein supplement. 5. H/O critical illness myopathy post IVIG infusion and will consult PT and OT. 6. History of Crohn's, has ileostomy on the right side. we will continue with Humira 40 mg SC q week, we will continue with Opium Tincture 2 ml po QID scheduled. 7. Generalized anxiety disorder and recurrent depression. Psychiatry consult appreciated. BuSpar and Lexapro will be discontinued and patient started on Zoloft 25 mg at bedtime. 8. Fibromyalgia with bilateral neuropathy. we will continue with Gabapentin 300 mg orally tid. 9. Sinus tachycardia. we will continue with Metoprolol 25 mg orally tid. 10. Vitamin D deficiency. we will continue with Vit D 1000 units orally daily. 11. B12 deficiency. we will continue with B12 1000 mcg sc q month. 12. Glaucoma. we will continue with Xalatan . 13. Hypomagnesemia. will continue with magnesium oxide. 14. DVT prophylaxis. we will continue with Lovenox 40 mg subcutaneously every day. 15. GI prophylaxis. we will continue with protonix 40 mg orally daily. 16. Full code. 17. Polyarthritis, possibly related to vital towards the etiology with Angina as well as peripheral effusion, we would need to evaluate her for coxsackievirus as well. Pain not controlled with Otis, we are switching it to Percocet 7.5, patient can have morphine 2 mg when necessary on till Percocet would be titrated. Patient might have Cymbalta instead of Zoloft continuing gabapentin 300 mg 3 times a day 18. Debility, physical therapy. Patient will therapy to see the patient patient might need home rehab again subacute 19. Ptosis, can't rule out myasthenia gravis with underlying progressive weakness, myasthenia gravis panel pending Discharge plan: To be determined
[2018-10-14] MEDS: MORPHINE SULFATE 2 MG/ML SYRINGE IVP PRN (23:07)
[2018-10-15] MEDS: LORazepam 2 MG/ML INJ IV PRN ×4 (00:06→20:55)
[2018-10-15] MEDS: oxyCODONE-APAP 7.5-325MG 1 EACH TAB PO PRN ×4 (03:49→20:51)
[2018-10-15] MEDS: MORPHINE SULFATE 2 MG/ML SYRINGE IVP PRN (04:57)
[2018-10-15] MEDS: COLCHICINE 0.6 MG EACH PO SCH (07:35)
[2018-10-15] MEDS: DICYCLOMINE 10 MG CAP PO SCH ×3 (07:35→20:51)
[2018-10-15] MEDS: POTASSIUM CHLORIDE ER 20 MEQ TAB.ER PO SCH (07:35)
[2018-10-15] MEDS: VERAPAMIL 40 MG TAB PO SCH ×3 (07:35→20:51)
[2018-10-15] MEDS: ENOXAPARIN 40 MG/0.4 ML SYRINGE SQ SCH ×2 (07:36→10:09)
[2018-10-15] MEDS: NYSTATIN 100,000 UNIT/ML SUSP 500,000 UNIT/5 ML CUP PO SCH ×4 (07:36→20:51)
[2018-10-15] MEDS: METOPROLOL TARTRATE 50 MG TAB PO SCH ×2 (07:36→20:51)
[2018-10-15] MEDS: predniSONE 20 MG TAB PO SCH (07:36)
[2018-10-15] MEDS: GABAPENTIN 300 MG CAP PO SCH ×3 (07:36→20:51)
[2018-10-15] MEDS: BUDESONIDE 1 MG/2 ML NEBU INHALATION SCH ×2 (09:01→19:18)
[2018-10-15] MEDS: IPRATROPIUM-ALBUTEROL 3 ML NEB INHALATION SCH ×4 (09:01→19:18)
[2018-10-15 09:21] LABS: Basophils % (A) 0 %; Eosinophils # (A) 0.1 k/uL (0-0.7); Eosinophils % (A) 1 %; Hypochromasia Slight; Lymphocytes % (A) 19 %; MCH 28.8 pg (25.0-35.0); MCHC 31.5 g/dL (31.0-37.0); MCV 91.4 fL (80.0-100.0); Mean Platelet Volume 6.8; Monocytes # (A) 0.4 k/uL (0-1.0); Monocytes % (A) 2 %; Neutrophils # (A) 12.4 k/uL (1.3-7.7); Neutrophils % (A) 78 %; Platelet Count 309 k/uL (150-450); RBC 3.83 m/uL (3.80-5.40); RDW 14.4 % (11.5-15.5); WBC 15.9 k/uL (3.8-10.6)
[2018-10-15 09:38] LABS: Anion Gap 5 mmol/L; Blood Urea Nitrogen 39 mg/dL (7-17); Calcium 9.3 mg/dL (8.4-10.2); Carbon Dioxide 37 mmol/L (22-30); Chloride 94 mmol/L (98-107); Glucose 111 mg/dL (74-99); Sodium 136 mmol/L (137-145)
[2018-10-15 09:45] LABS: Prothrombin Time 10.3 sec (9.0-12.0)
--- NOTE | 2018-10-15 10:44 | US ---
EXAMINATION TYPE: US chest DATE OF EXAM: 10/15/2018 COMPARISON: Chest x-ray from 6 days ago. CLINICAL HISTORY: assess for fluid. Abnormal physical exam. COPD. TECHNIQUE: Targeted ultrasound of the posterior lower bilateral hemithoraces EXAM MEASUREMENTS: Right Pleural Effusion pocket size: 0 cm Left Pleural Effusion pocket size: 0 cm Right and Left side NOT marked for possible thoracentesis outside the dept. Pulmonologists are able to review the images in the patient?s EMR. Single images of bilateral chest show no significant pleural effusions, findings correlate with recen t chest x-ray which shows emphysematous change. IMPRESSIONS: As above
[2018-10-15] MEDS ORDERED: ENOXAPARIN 40 MG/0.4 ML SYRINGE SQ STA (12:11)
[2018-10-15] MEDS: OPIUM TINCTURE PO PRN (12:28)
--- NOTE | 2018-10-15 13:58 | P.PN ---
Subjective This is a pleasant 58-year-old female past medical history significant for hypertension, dyslipidemia, COPD, arthritis and chronic respiratory failure. She denies history of coronary artery disease. She follows with Dr. Verma in the office. We are following her for a pericardial effusion noted on echo. She was started on colchicine yesterday as well as his digoxin was discontinued and verapamil was added. She is seen and examined resting comfortably in bed in no acute distress. She denies chest pain, pleurtic pain or increased shortness of breath. Blood pressure 109/74 heart rate 88. Laboratory data reviewed, WBC 15.9, hgb 11, plt 309, sodium 136, potassium 4.0, creatinine 0.77. Currently maintained on colchicine 0.6 daily, lasix 20 mg daily, lopressor 50 mg BID and verapamil 40 mg TID. GENERAL: This is a 58-year-old female in no apparent distress at the time of my examination. HEENT: Head is atraumatic, normocephalic. Pupils are equal, round. Sclerae anicteric. Conjunctivae are clear. Mucous membranes of the mouth are moist. Neck is supple. There is no jugular venous distention. No carotid bruit is heard. LUNGS: Faint expiratory wheeze, no rhonchi or rales. No chest wall tenderness is noted on palpation or with deep breathing. Diminished bilaterally. HEART: Regular rate and rhythm without murmurs, rubs or gallops. S1 and S2 heard. ASSESSMENT Shortness of breath due to acute exacerbation of chronic COPD Pericardial effusion Sinus tachycardia Hypertension Dyslipidemia Chronic respiratory failure PLAN Check sedimentation rate and c-reactive protein. Continue current medical regimen. Follow up echo in 3 weeks can be done as an outpatient in the office with Dr. Verma. Nurse Practitioner note has been reviewed, I agree with a documented findings and plan of care. Patient was seen and examined. Objective - Vital Signs Vital signs: Vital Signs Temp 97.3 F L 10/15/18 07:28 Pulse 88 10/15/18 12:34 Resp 17 10/15/18 07:40 BP 109/74 10/15/18 07:39 Pulse Ox 96 10/15/18 07:28 Intake & Output 10/14/18 10/15/18 10/15/18 18:59 06:59 18:59 Weight 47.174 kg Other: Voiding Method Bedside Commode Bedside Commode # Voids 4 2 1 # Bowel Movements 3 1 - Labs CBC & Chem 7: 10/15/18 08:04 10/15/18 08:04 Labs: Abnormal Lab Results - Last 24 Hours (Table) 10/15/18 10/15/18 Range/Units 08:04 08:04 WBC 15.9 H (3.8-10.6) k/uL Hgb 11.0 L (11.4-16.0) gm/dL Neutrophils # 12.4 H (1.3-7.7) k/uL Sodium 136 L (137-145) mmol/L Chloride 94 L (98-107) mmol/L Carbon Dioxide 37 H (22-30) mmol/L BUN 39 H (7-17) mg/dL Glucose 111 H (74-99) mg/dL Microbiology - Last 24 Hours (Table) 10/09/18 16:47 Blood Culture - Preliminary Blood No Growth after 120 hours
[2018-10-15] MEDS: FUROSEMIDE 20 MG TAB PO SCH (15:45)
[2018-10-15] MEDS: DULoxetine HCL 30 MG CAPSULE.DR PO SCH (15:46)
[2018-10-15] MEDS: POTASSIUM CHLORIDE ER 10 MEQ TAB.ER.PRT PO SCH (15:47)
[2018-10-15] MEDS: LATANOPROST 0.005% OPHTH DROPS 2.5 ML BTL BOTH EYES SCH (20:50)
[2018-10-15] MEDS ORDERED: MELATONIN 5 MG TABLET PO SCH (21:00)
[2018-10-16] MEDS: oxyCODONE-APAP 7.5-325MG 1 EACH TAB PO PRN ×4 (00:16→13:35)
[2018-10-16] MEDS: LORazepam 2 MG/ML INJ IV PRN ×2 (04:50→10:14)
[2018-10-16] MEDS: IPRATROPIUM-ALBUTEROL 3 ML NEB INHALATION SCH ×3 (07:16→16:09)
[2018-10-16] MEDS: BUDESONIDE 1 MG/2 ML NEBU INHALATION SCH (07:16)
[2018-10-16 07:50] VITALS: RESP 15
[2018-10-16] MEDS: DULoxetine HCL 30 MG CAPSULE.DR PO SCH (08:47)
[2018-10-16] MEDS: ENOXAPARIN 40 MG/0.4 ML SYRINGE SQ SCH (08:47)
[2018-10-16] MEDS: DICYCLOMINE 10 MG CAP PO SCH ×2 (08:48→17:00)
[2018-10-16] MEDS: NYSTATIN 100,000 UNIT/ML SUSP 500,000 UNIT/5 ML CUP PO SCH ×2 (08:48→13:33)
[2018-10-16] MEDS: FUROSEMIDE 20 MG TAB PO SCH (08:48)
[2018-10-16] MEDS: GABAPENTIN 300 MG CAP PO SCH ×2 (08:48→17:00)
[2018-10-16] MEDS: predniSONE 20 MG TAB PO SCH (08:48)
[2018-10-16] MEDS: METOPROLOL TARTRATE 50 MG TAB PO SCH (08:48)
[2018-10-16] MEDS: VERAPAMIL 40 MG TAB PO SCH ×2 (08:48→17:00)
[2018-10-16] MEDS: COLCHICINE 0.6 MG EACH PO SCH (08:48)
[2018-10-16] MEDS: POTASSIUM CHLORIDE ER 20 MEQ TAB.ER PO SCH (08:48)
[2018-10-16] MEDS: POTASSIUM CHLORIDE ER 10 MEQ TAB.ER.PRT PO SCH (08:49)
[2018-10-16] MEDS: ADALIMUMAB 40 MG SQ SCH (08:51)
[2018-10-16 09:02] LABS: Basophils % (A) 0 %; Eosinophils # (A) 0.1 k/uL (0-0.7); Eosinophils % (A) 0 %; HCT 35.5 % (34.0-46.0); HGB 11.3 gm/dL (11.4-16.0); Lymphocytes # (A) 2.4 k/uL (1.0-4.8); Lymphocytes % (A) 15 %; MCHC 31.8 g/dL (31.0-37.0); MCV 91.3 fL (80.0-100.0); Mean Platelet Volume 6.7; Monocytes # (A) 0.4 k/uL (0-1.0); Monocytes % (A) 3 %; Neutrophils # (A) 12.8 k/uL (1.3-7.7); Neutrophils % (A) 81 %; Platelet Count 317 k/uL (150-450); RBC 3.88 m/uL (3.80-5.40); RDW 14.5 % (11.5-15.5); WBC 15.8 k/uL (3.8-10.6)
[2018-10-16 09:14] LABS: Anion Gap 6 mmol/L; Blood Urea Nitrogen 29 mg/dL (7-17); Calcium 8.9 mg/dL (8.4-10.2); Carbon Dioxide 35 mmol/L (22-30); Chloride 95 mmol/L (98-107); Glucose 101 mg/dL (74-99); Potassium 4.1 mmol/L (3.5-5.1); Sodium 136 mmol/L (137-145)
[2018-10-16] MEDS: OPIUM TINCTURE PO PRN (10:14)
[2018-10-16 14:52] VITALS: BP 100/62; PULSE 88; TEMP 98
--- NOTE | 2018-10-17 08:18 | P.PN ---
Subjective Progress Note Date: 10/15/18 this is a 58-year-old pleasant female patient of Dr. Heber James. She has underlying history of severe COPD, fibromyalgia, Crohn's disease with ileostomy , previous right-sided pneumothorax, chronic left upper lobe inflammatory opacification followed by Dr. 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 Mistry treated with Breo ellipta and albuterol in the outpatient setting. Also required home O2, she was transferred from [facility], admitted there 07/18/2018 secondary to COPD exacerbation. Patient required mechanical ventilation on admission as they were planning to have Trach and PEG but they noticed large Bullous disease on the left side and because of pneumothorax concerns she was transferred at that time to [facility] for evaluation by thoracic surgery and she ended-up getting her Trach and PEG tubbe and she developped to have critical illness myopathy was treated with IVIG and and she was transferred to [facility] specialty hospital for sometime then sent to [facility] , patient was there for about 10 days and after that she was discharged because of insurance coverage and went to her sister's house [place] where she is the primary caregiver for her and herself as she cannot go back to her house which is a trilevel house with a temperature 67, patient apparently has not been taking her medication over the last 24 hours, yesterday she felt extremely short of breath than she was extremely anxious and depressed EMS was called and the patient was brought into the ER at [facility] where she was found to have a sinus tachycardia with significant dyspnea she was given Solu-Medrol nebulized treatment and she was admitted to the hospital, pulmonary consultation was obtained from . 10/11: Patient is feeling better about everything in general and her breathing is improved from yesterday. She does complain of feeling jumpy and her heart rate increased. Solu-Medrol will be decreased to 40 mg IV every 8 hours. She states she is slept good last night. She is planning to return home at the time of discharge. Patient has met with Dr. Cintron with plan for evaluation at [facility] for blebectomy. Patient has been seen by Dr. Lara from psychiatry with recommendations to discontinue Lexapro, discontinue BuSpar and Ativan and Zoloft 25 mg daily at bedtime. 10/12: Patient is breathing status continues to improve. She states she is still anxious but a little bit better from yesterday. She has less edema this morning. Solu-Medrol will be decreased to 40 mg every 12 hours and start prednisone in the morning. Plan to monitor the patient another 24 hours and probable discharge on Monday. 10/15: Patient has been complaining of pain all over and required a dose of morphine during the night. Medications will be changed and Zoloft discontinued. Patient started on Cymbalta at 30 mg daily with plan to increase for tomorrow. Melatonin increased to 15 as patient continues to have insomnia. Patient is complaining of increasing shortness of breath with activity. Physical therapy has evaluated with recommendations for home with homecare. Chest ultrasound was negative for pleural effusion. Echocardiogram reveals EF of 55-60% mild mitral regurgitation, mild tricuspid regurgitation, small to moderate pericardial effusion. Patient has been seen by cardiology with recommendations for follow-up in 3 weeks for repeat echocardiogram. Sed rate was 6, C-reactive protein less than 5. Plan is to monitor patient overnight and lambert for discharge home tomorrow. Review of Systems Constitutional: Reports anorexia, Reports chronic headaches, Reports chronic pain, Reports fatigue, Reports weakness, Reports weight loss Eyes: denies blurred vision, denies bulging eye, denies decreased vision Ears: deny: decreased hearing Ears, nose, mouth and throat: Denies dysphagia, Denies neck lump, Denies swelling in throat, Denies sore throat, Denies vertigo Cardiovascular: Reports dyspnea on exertion, denies high blood pressure, denies rapid heart beat, Reports shortness of breath, Denies chest pain, Denies phlebitis, Denies syncope Gastrointestinal: Reports abdominal pain, Reports bloating, Reports diarrhea, Reports loss of appetite, Reports nausea, Denies heartburn, Denies melena, Denies vomiting Genitourinary: Denies dysuria, Denies urgency Musculoskeletal: Reports atrophy, Reports gait dysfunction Musculoskeletal: absent: ankle pain, ankle stiffness, ankle swelling, elbow pain , elbow stiffness, elbow swelling, foot pain, foot stiffness, foot swelling, hand pain, hand stiffness, hand swelling, hip pain, hip stiffness, hip swelling , knee pain, knee stiffness, knee swelling, shoulder pain, shoulder stiffness, shoulder swelling, wrist pain, wrist stiffness, wrist swelling Integumentary: Denies pruritus, Denies rash Neurological: Denies numbness, Denies weakness Psychiatric: Denies anxiety, complains of depression Endocrine: Denies fatigue, Denies weight change Objective - Vital Signs Vital signs: Vital Signs Temp 97.3 F L 10/15/18 07:28 Pulse 88 10/15/18 12:34 Resp 17 10/15/18 07:40 BP 109/74 10/15/18 07:39 Pulse Ox 96 10/15/18 07:28 Intake & Output 10/14/18 10/15/18 10/15/18 18:59 06:59 18:59 Weight 47.174 kg Other: Voiding Method Bedside Commode Bedside Commode # Voids 4 2 1 # Bowel Movements 3 1 - Exam General appearance: no distress, thin, sitting in the bed. Respirations are even and nonlabored. - EENT Eyes: anicteric sclerae, EOMI, PERRLA, no ptosis, no scleral icterus, normal appearance ENT: hearing grossly normal, normal oropharynx, no thrush - Neck Neck: no lymphadenopathy, normal ROM, no rigidity, no stridor Carotids: bilateral: upstroke normal Thyroid: bilateral: normal size - Respiratory Respiratory: bilateral: diminished, wheezing, prolonged expiration, negative: dullness, rales, rhonchi - Cardiovascular Rhythm: regular Heart sounds: normal: S1, S2 Abnormal Heart Sounds: systolic murmur, no S3 Gallop - Gastrointestinal General gastrointestinal: hyperactive bowel sounds, soft, tenderness (ileostomy bag in place.) - Integumentary Integumentary: normal, normal turgor - Neurologic Neurologic: CNII-XII intact - Musculoskeletal Musculoskeletal: generalized weakness, strength equal bilaterally - Psychiatric Psychiatric: A&O x's 3, no appropriate affect, intact judgment & insight - Labs CBC & Chem 7: 10/16/18 08:15 10/16/18 08:15 Labs: Abnormal Lab Results - Last 24 Hours (Table) 10/15/18 10/15/18 Range/Units 08:04 08:04 WBC 15.9 H (3.8-10.6) k/uL Hgb 11.0 L (11.4-16.0) gm/dL Neutrophils # 12.4 H (1.3-7.7) k/uL Sodium 136 L (137-145) mmol/L Chloride 94 L (98-107) mmol/L Carbon Dioxide 37 H (22-30) mmol/L BUN 39 H (7-17) mg/dL Glucose 111 H (74-99) mg/dL Microbiology - Last 24 Hours (Table) 10/09/18 16:47 Blood Culture - Preliminary Blood No Growth after 120 hours Assessment and Plan Plan: 1. Acute respiratory failure due to acute COPD exacerbation. Decrease Solu- Medrol 40 mg every 12 hours and transition to prednisone in the morning, continue nebulized treatment DuoNeb 3 mL nebulization 4 times every day, continue Pulmicort 1 mg nebulization twice every day, pulmonary consultation appreciated, patient may be a candidate for lobectomy after discussing the case with Dr. Cintron due to her significant bullous disease and/or pulmonary rehabilitation. 2. Debility due to a chronic medical illnesses. Physical therapy evaluation. 3. Chronic hypoxemic and hypercapneic respiratory failure requiring mechanical ventilation in the past and Trach which has since removed. we will continue with aggresive pulmonary toileting with Duoneb and Mucomyst we will consult for left upper lobe Consolidative process. 4. Moderate protein calorie malnutrition. we will continue with protein supplement. 5. H/O critical illness myopathy post IVIG infusion and will consult PT and OT. 6. History of Crohn's, has ileostomy on the right side. we will continue with Humira 40 mg SC q week, we will continue with Opium Tincture 2 ml po QID scheduled. 7. Generalized anxiety disorder and recurrent depression. Psychiatry consult appreciated. BuSpar and Lexapro will be discontinued and patient started on Zoloft 25 mg at bedtime. 8. Fibromyalgia with bilateral neuropathy. we will continue with Gabapentin 300 mg orally tid. 9. Sinus tachycardia. we will continue with Metoprolol 25 mg orally tid. 10. Vitamin D deficiency. we will continue with Vit D 1000 units orally daily. 11. B12 deficiency. we will continue with B12 1000 mcg sc q month. 12. Glaucoma. we will continue with Xalatan . 13. Hypomagnesemia. will continue with magnesium oxide. 14. DVT prophylaxis. we will continue with Lovenox 40 mg subcutaneously every day. 15. GI prophylaxis. we will continue with protonix 40 mg orally daily. 16. Full code. 17. Pericardial effusion. Patient to follow-up with repeat echocardiogram in 3 weeks. Discharge plan: Return home with homecare tomorrow Impression and plan of care have been directed as dictated by the signing physician. Gaby Rothman nurse practitioner acting as scribe for signing physician.
--- NOTE | 2018-10-17 08:32 | P.DS ---
Providers Date of admission: 10/09/18 18:22 Expected date of discharge: 10/12/18 Attending physician: Cornelius Merchant Consults: 10/09/18 18:20 Consult Physician Routine Consulting Provider: Jazmine Mistry Consult Reason/Comments: known Do you want consulting provider notified?: Yes 10/10/18 10:05 Consult Physician Routine Consulting Provider: Pankaj Lara Consult Reason/Comments: depression, not coping w current med problems Do you want consulting provider notified?: Yes Primary care physician: [facility] Course: this is a 58-year-old pleasant female patient of Dr. Heber James. She has underlying history of severe COPD, fibromyalgia, Crohn's disease with ileostomy , previous right-sided pneumothorax, chronic left upper lobe inflammatory opacification followed by Dr. Mistry forslurdesal years secondary to scar tissue, bullous emphysemahas been prednisone dependent, FEV1 of 36%, follows with Dr. Mistry treated with Breo ellipta and albuterol in the outpatient setting. Also required home O2, she was transferred from [facility], admitted there 07/18/2018 secondary to COPD exacerbation. Patient required mechanical ventilation on admission as they were planning to have Trach and PEG but they noticed large Bullous disease on the left side and because of pneumothorax concerns she was transferred at that time to [facility] for evaluation by thoracic surgery and she ended-up getting her Trach and PEG tubbe and she developped to have critical illness myopathy was treated with IVIG and and she [facility] then sent to [facility] , patient was there for about 10 days and after that she was discharged because of insurance coverage and went to her sister's house [place] where she is the primary caregiver for her and herself as she cannot go back to her house which is a trilevel house with a temperature 67, patient apparently has not been taking her medication over the last 24 hours, yesterday she felt extremely short of breath than she was extremely anxious and depressed EMS was called and the patient was brought into the ER at [facility] where she was found to have a sinus tachycardia with significant dyspnea she was given Solu-Medrol nebulized treatment and she was admitted to the hospital, pulmonary consultation was obtained from . 10/11: Patient is feeling better about everything in general and her breathing is improved from yesterday. She does complain of feeling jumpy and her heart rate increased. Solu-Medrol will be decreased to 40 mg IV every 8 hours. She states she is slept good last night. She is planning to return home at the time of discharge. Patient has met with Dr. Cintron with plan for evaluation at [facility] for blebectomy. Patient has been seen by Dr. Lara from psychiatry with recommendations to discontinue Lexapro, discontinue BuSpar and Ativan and Zoloft 25 mg daily at bedtime. 10/12: Patient is breathing status continues to improve. She states she is still anxious but a little bit better from yesterday. She has less edema this morning. Solu-Medrol will be decreased to 40 mg every 12 hours and start prednisone in the morning. Plan to monitor the patient another 24 hours and probable discharge on Monday. 10/13 patient complains of sob fatigue dysonea on exertion, has noticeable ptosis , insomnia, no motivation. echocardiogram show pleural effusion and pericardial effusion ef 55-60 no patient is started on lasix iv , thoracic us to be obtained, consult with cardiology for pericardial effusion. labs to be oftained for myasthenia gravis, secondary to above , patient complains of generalized myalgia, poorly arthritis, and oral sores, coxsackievirus test is requested, patient's pain is uncontrolled, her [place] 10 is not holding her pain, patient requests morphine or Dilaudid, we'll going to change the [place] to Percocet, as she is on Zoloft 25 mg initiated by psychiatry, this could be related changed to Cymbalta 30 mg twice a day to address chronic pain status, patient is also on opium chronically for her colitis.. Cardiology has started her on colchicine for the peripheral effusion , thoracic ultrasound to be done in a.m., patient needs to be evaluated for possible thoracentesis however this needs to be reevaluated. Pleural effusion was only noted to echocardiogram, not to x-rays physical therapy in a patient with therapy requested, patient has endurance problems including weakness. Myasthenia gravis panel pending 10/15: Patient has been complaining of pain all over and required a dose of morphine during the night. Medications will be changed and Zoloft discontinued. Patient started on Cymbalta at 30 mg daily with plan to increase for tomorrow. Melatonin increased to 15 as patient continues to have insomnia. Patient is complaining of increasing shortness of breath with activity. Physical therapy has evaluated with recommendations for home with homecare. Chest ultrasound was negative for pleural effusion. Echocardiogram reveals EF of 55-60% mild mitral regurgitation, mild tricuspid regurgitation, small to moderate pericardial effusion. Patient has been seen by cardiology with recommendations for follow-up in 3 weeks for repeat echocardiogram. Sed rate was 6, C-reactive protein less than 5. Plan is to monitor patient overnight and lambert for discharge home tomorrow. 10/16: Patient's breathing status is stable today. All of her pain is controlled. She seems to be stable on medication changes made yesterday. Blood pressure is 100/62, patient is been afebrile, pulse ox 97% on 3 L. WBC is 15.8, creatinine 0.76, CO2 is 35 which is improving. Patient will be discharged home today in stable condition. Discharge diagnoses: 1. Acute on chronic hypoxic and hypercapnic respiratory failure due to acute COPD exacerbation. 2. Debility due to a chronic medical illnesses. 3. Chronic hypoxemic and hypercapneic respiratory failure requiring mechanical ventilation in the past and Trach which has since removed. 4. Moderate protein calorie malnutrition. 5. H/O critical illness myopathy post IVIG infusion 6. History of Crohn's, has ileostomy on the right side. 7. Generalized anxiety disorder and recurrent depression. 8. Fibromyalgia with bilateral neuropathy. 9. Sinus tachycardia. 10. Vitamin D deficiency. 11. B12 deficiency. 12. Glaucoma. 13. Hypomagnesemia. 14. Pericardial effusion. Patient to follow-up with repeat echocardiogram in 3 weeks. Discharge plan: Return home with [facility] Impression and plan of care have been directed as dictated by the signing physician. Gaby Rothman nurse practitioner acting as scribe for signing physician. Patient Condition at Discharge: Good Plan - Discharge Summary Discharge Rx Participant: Yes New Discharge Prescriptions: New Colchicine [Colcrys] 0.6 mg PO DAILY #21 each DULoxetine HCL [Cymbalta] 30 mg PO BID #60 capsule. LORazepam [Ativan] 0.25 mg PO TID 3 Days #5 tab Melatonin 15 mg PO HS tablet Metoprolol Tartrate [Lopressor] 50 mg PO BID #60 tab Nystatin 100,000 Unit/ml Susp [Mycostatin Oral Susp] 500,000 unit PO QID # 120 ml predniSONE 0 mg PO DIRECTED #40 tab Verapamil [Isoptin] 40 mg PO TID #90 tab Continue Adalimumab [Humira Pen] 40 mg SQ TU Latanoprost Ophth [Xalatan 0.005%] 1 drop BOTH EYES DAILY Ondansetron [Zofran] 4 mg PO Q6H PRN PRN Reason: Nausea And Vomiting Dicyclomine [Bentyl] 10 mg PO TID Cyanocobalamin [Vitamin B-12 Injection] 1,000 mcg SQ Q30D Albuterol Nebulized [Ventolin Nebulized] 2.5 mg INHALATION RT-TID PRN PRN Reason: Shortness Of Breath Ipratropium-Albuterol Nebulize [Duoneb 0.5 mg-3 mg/3 ml Soln] 3 ml INHALATION RT-Q8H Loperamide [Imodium] 2 mg PO Q6H PRN PRN Reason: Diarrhea Budesonide 1 mg INHALATION RT-BID Gabapentin [Neurontin] 300 mg PO TID Nicotine Polacrilex [Nicorette] 4 mg BUCCAL Q6H PRN PRN Reason: addiction Opium Tincture 10mg/1ml 20 mg PO QID PRN PRN Reason: BOWEL/DIARRHEA ISSUES HYDROcodone/APAP 10-325MG [[place] 10-325] 1 tab PO Q4H PRN PRN Reason: Pain Changed busPIRone HCl [Buspar] 10 mg PO TID #90 tab Furosemide [Lasix] 20 mg PO DAILY #0 Potassium Chloride ER [K-Dur 20] 10 meq PO DAILY #0 Discontinued Metoprolol Tartrate [Lopressor] 25 mg PO DAILY Digoxin [Digitek] 125 mcg PO DAILY predniSONE 20 mg PO BID #10 tab Azithromycin [Zithromax Z-pack] See Taper PO DIRECTED Discharge Medication List Adalimumab [Humira Pen] 40 mg SQ TU 06/21/14 [History] Latanoprost Ophth [Xalatan 0.005%] 1 drop BOTH EYES DAILY 05/21/17 [History] Cyanocobalamin [Vitamin B-12 Injection] 1,000 mcg SQ Q30D 07/24/18 [History] Dicyclomine [Bentyl] 10 mg PO TID 07/24/18 [History] Ondansetron [Zofran] 4 mg PO Q6H PRN 07/24/18 [History] Albuterol Nebulized [Ventolin Nebulized] 2.5 mg INHALATION RT-TID PRN 09/09/18 [ History] Ipratropium-Albuterol Nebulize [Duoneb 0.5 mg-3 mg/3 ml Soln] 3 ml INHALATION RT -Q8H 09/09/18 [History] Loperamide [Imodium] 2 mg PO Q6H PRN 09/09/18 [History] Budesonide 1 mg INHALATION RT-BID 09/27/18 [History] Gabapentin [Neurontin] 300 mg PO TID 09/27/18 [History] HYDROcodone/APAP 10-325MG [[place] 10-325] 1 tab PO Q4H PRN 09/27/18 [History] Nicotine Polacrilex [Nicorette] 4 mg BUCCAL Q6H PRN 09/27/18 [History] Opium Tincture 10mg/1ml 20 mg PO QID PRN 09/27/18 [History] Colchicine [Colcrys] 0.6 mg PO DAILY #21 each 10/16/18 [Rx] DULoxetine HCL [Cymbalta] 30 mg PO BID #60 josé manuel. 10/16/18 [Rx] Furosemide [Lasix] 20 mg PO DAILY #0 10/16/18 [Rx] LORazepam [Ativan] 0.25 mg PO TID 3 Days #5 tab 10/16/18 [Rx] Melatonin 15 mg PO HS tablet 10/16/18 [Rx] Metoprolol Tartrate [Lopressor] 50 mg PO BID #60 tab 10/16/18 [Rx] Nystatin 100,000 Unit/ml Susp [Mycostatin Oral Susp] 500,000 unit PO QID #120 ml 10/16/18 [Rx] Potassium Chloride ER [K-Dur 20] 10 meq PO DAILY #0 10/16/18 [Rx] Verapamil [Isoptin] 40 mg PO TID #90 tab 10/16/18 [Rx] busPIRone HCl [Buspar] 10 mg PO TID #90 tab 10/16/18 [Rx] predniSONE 0 mg PO DIRECTED #40 tab 10/16/18 [Rx] Follow up Appointment(s)/Referral(s): [facility], [NON-STAFF] - Spencer Henson MD [REFERRING] - 10/18/18 1:00 pm Heber James MD [Primary Care Provider] - 1-2 days (Dr. Spencer Henson will be seeing patients until October ) Rickey Verma MD [STAFF PHYSICIAN] - 3 Weeks (Schedule echocardiogram in 3 weeks, see Dr. Verma after. ) Patient Instructions/Handouts: COPD (Chronic Obstructive Pulmonary Disease) (DC ) Activity/Diet/Wound Care/Special Instructions: Has medication in pharmacy
== END 2018-10-16 17:45 | disposition home health service (06) | DRG 190 ==
LOC: EC 15:24 → 4MS4W 18:22 → 4SSUR 18:53
PROVIDERS: ADMIT Internal Medicine; ATTEND Internal Medicine
DX: J44.1 Chronic obstructive pulmonary disease with (acute) exacerbation (principal); J96.21 Acute and chronic respiratory failure with hypoxia; J96.22 Acute and chronic respiratory failure with hypercapnia; E44.0 Moderate protein-calorie malnutrition; F33.9 Major depressive disorder, recurrent, unspecified; I31.3 Pericardial effusion (noninflammatory); J98.11 Atelectasis; K50.90 Crohn's disease, unspecified, without complications; E03.9 Hypothyroidism, unspecified; E53.8 Deficiency of other specified B group vitamins; E55.9 Vitamin D deficiency, unspecified; E78.5 Hyperlipidemia, unspecified; E83.42 Hypomagnesemia; E86.0 Dehydration; F41.1 Generalized anxiety disorder; G47.00 Insomnia, unspecified; G62.9 Polyneuropathy, unspecified; H40.9 Unspecified glaucoma; I08.1 Rheumatic disorders of both mitral and tricuspid valves; I10 Essential (primary) hypertension; K21.9 Gastro-esophageal reflux disease without esophagitis; M79.7 Fibromyalgia; M81.0 Age-related osteoporosis without current pathological fracture; J30.2 Other seasonal allergic rhinitis; K44.9 Diaphragmatic hernia without obstruction or gangrene; M15.9 Polyosteoarthritis, unspecified; G89.29 Other chronic pain; Z79.52 Long term (current) use of systemic steroids; Z79.899 Other long term (current) drug therapy; Z91.19 Patient's noncompliance with other medical treatment and regimen; Z90.721 Acquired absence of ovaries, unilateral; Z90.710 Acquired absence of both cervix and uterus; Z90.79 Acquired absence of other genital organ(s); Z90.49 Acquired absence of other specified parts of digestive tract; Z87.891 Personal history of nicotine dependence; Z87.01 Personal history of pneumonia (recurrent); Z88.8 Allergy status to other drugs, medicaments and biological substances; Z88.6 Allergy status to analgesic agent; Z91.041 Radiographic dye allergy status; Z83.3 Family history of diabetes mellitus; Z82.49 Family history of ischemic heart disease and other diseases of the circulatory system; Z80.8 Family history of malignant neoplasm of other organs or systems; Z82.3 Family history of stroke
CPT/HCPCS: 36415; 36600; 71046; 76604; 80048; 80053; 80061; 80306; 80320; 81001; 82150; 82550; 82553; 82805; 83519; 83690; 83735; 83880; 84439; 84443; 84484; 85025; 85610; 85652; 85730; 86140; 86658; 87040; 93005; 93306; 94640; 94760; 96361; 96374; 96375; 99285

== ENCOUNTER 2018-10-26 15:29 | Inpatient (IN) | payer BC ==
[~2018-10-26 15:29] MED LIST: HYDROmorphone 0.5 MG/0.5 ML SYRINGE ONE
[2018-10-26] MEDS ORDERED: ROCURONIUM BROMIDE 10 MG/ML 10 ML VIAL IV STA (15:35)
[2018-10-26] MEDS ORDERED: MIDAZOLAM 1 MG/ML 5 ML VIAL IV STA ×2 (15:37→16:52)
[2018-10-26] MEDS ORDERED: SODIUM CHLORIDE 0.9% 1,000 ML IV STA (15:43)
--- NOTE | 2018-10-26 16:04 | XR ---
EXAMINATION TYPE: XR chest 1V portable DATE OF EXAM: 10/26/2018 COMPARISON: 10/09/2018 INDICATION: Unresponsive TECHNIQUE: Single frontal view of the chest is obtained. FINDINGS: The heart size is normal. The pulmonary vasculature is normal. There is a large left basilar pneumothorax. Endotracheal tube is present with the tip above the saima. Right lung base has diminished density but appears to have vessels passing towards the periphery. Sma ll right pneumothorax is considered less likely. IMPRESSION: 1. Large left pneumothorax estimated at greater than 50%. 2. A right basilar pneumothorax is not entirely excluded. Supine imaging has some limitation on evalu ation. 3. Endotracheal tube tip is approximately 2.8 cm above the saima. 4. Report was called to the emergency room physician by Dr. Heller by telephone [phone]
[2018-10-26] MEDS ORDERED: EPINEPHrine 10 ML SYRINGE (0.1 MG/ML) ONE (16:05)
[2018-10-26] MEDS ORDERED: fentaNYL (PF) 50 MCG/ML 5 ML AMP IVP STA (16:38)
--- NOTE | 2018-10-26 16:38 | XR ---
EXAMINATION TYPE: XR chest 1V portable DATE OF EXAM: 10/26/2018 COMPARISON: Chest x-ray from earlier today and older studies. HISTORY: New left-sided chest tube and central line placement. TECHNIQUE: Single AP portable frontal supine view of the chest is obtained. FINDINGS: Endotracheal tube is stable in position. There is new left subclavian central venous jj ter terminating at cavoatrial junction. There are 2 new left-sided chest tubes now herniation of left lung outside rib margin. Persistent underlying advanced emphysematous change particularly in the bas es is redemonstrated. I do suspect moderate size right pneumothorax on current study with lateral edge present. There is fo christiano consolidation right lung base likely reflecting compressive atelectasis. There are age indetermin ant but likely old displaced fractures involving posterior lateral right sixth through eighth ribs as they are present on old CT. Cardiac silhouette size is within normal limits. There is diffuse opacit y now identified in the central left lung. IMPRESSION: Interval placement of 2 left-sided chest tubes with some reexpansion of left lung. Diffu se left mid lung acute infiltrate and/or edema is present. Some herniation of left lung is now noted. There is now strong suspicion for moderate-sized right pneumothorax as detailed above. Background of advanced emphysematous change with vanishing lung makes evaluation suboptimal. Case discussed with ordering ER physician via telephone at time of dictation.
[2018-10-26] MEDS ORDERED: fentaNYL (PF) 50 MCG/ML 2 ML AMP IVP STA ×2 (16:46→18:29)
[2018-10-26 16:59] LABS: Basophils % (A) 0 %; Eosinophils # (A) 0.2 k/uL (0-0.7); Eosinophils % (A) 2 %; HCT 39.6 % (34.0-46.0); HGB 11.5 gm/dL (11.4-16.0); Hypochromasia Marked; Lymphocytes # (A) 1.3 k/uL (1.0-4.8); Lymphocytes % (A) 11 %; MCH 27.7 pg (25.0-35.0); MCV 95.3 fL (80.0-100.0); Mean Platelet Volume 6.9; Monocytes # (A) 0.2 k/uL (0-1.0); Monocytes % (A) 2 %; Neutrophils # (A) 10.6 k/uL (1.3-7.7); Neutrophils % (A) 85 %; Platelet Count 305 k/uL (150-450); RBC 4.16 m/uL (3.80-5.40); RDW 14.5 % (11.5-15.5); WBC 12.4 k/uL (3.8-10.6)
[2018-10-26 17:01] LABS: Albumin 2.7 g/dL (3.5-5.0); Calcium 8.8 mg/dL (8.4-10.2); Magnesium 2.2 mg/dL (1.6-2.3); Potassium 5.6 mmol/L (3.5-5.1); Total Bilirubin 0.8 mg/dL (0.2-1.3); Total Protein 4.8 g/dL (6.3-8.2)
[2018-10-26 17:10] LABS: Prothrombin Time 10.5 sec (9.0-12.0)
[2018-10-26 17:26] LABS: Creatine Kinase MB 1.7 ng/mL (0.0-2.4); Troponin I 0.016 ng/mL (0.000-0.034)
[2018-10-26] MEDS ORDERED: NOREPINEPHRINE 4 MG in SODIUM CHLORIDE 0.9% 250 ML IV ONE (17:41)
[2018-10-26] MEDS ORDERED: ACETAMINOPHEN SUPPOSITORY 650 MG SUPP RECTAL PRN (17:42)
[2018-10-26] MEDS ORDERED: NALOXONE 0.4 MG/ML 1 ML VIAL IV PRN (17:42)
--- NOTE | 2018-10-26 17:42 | XR ---
EXAMINATION TYPE: XR chest 1V portable DATE OF EXAM: 10/26/2018 COMPARISON: Today at 4:20 PM HISTORY: Chest tube check TECHNIQUE: Single frontal view of the chest is obtained. FINDINGS: There is a right chest tube with the tip near the right lung apex. There is pneumothorax s een in the right lower lung field. There is left-sided chest tube and also pneumothorax at the left l ian base. There is a left upper lobe additional chest tube. Endotracheal tube has tip 3 cm from the c mp. Nasogastric tube is in good position. Heart is shifted slightly to the right side. There are m ultiple right rib fractures that appear old. IMPRESSION: Bilateral pneumothoraces. Pneumothorax on the right side appears improved compared to ex am 30 minutes ago. There is atelectasis and consolidation in the left lung unchanged. Left pneumothor ax probably not changed. Heart shifted to the left side slightly probably due to atelectasis in the l eft lung and not due to a tension pneumothorax.
[2018-10-26] MEDS ORDERED: DEXAMETHASONE SOD PHOSPHATE 10 MG/ML 1 ML VIAL IV STA (17:53)
[2018-10-26 18:03] LABS: ABG Base Excess 3.9 mmol/L; ABG HCO3 30 mmol/L (21-25); ABG Oxygen Saturation 99.7 % (94-97); ABG PCO2 62 mmHg (35-45); ABG PO2 249 mmHg (83-108); ABG TCO2 32 mmol/L (19-24)
--- NOTE | 2018-10-26 18:07 | ED ---
General Adult HPI - General Chief complaint: Shortness of Breath Stated complaint: lethargic Time Seen by Provider: 10/26/18 15:43 Source: patient, EMS, RN notes reviewed Mode of arrival: ambulatory Limitations: no limitations - History of Present Illness Initial comments: 58-year-old female presenting with dyspnea. Patient history is obtained from EMS. According EMS patient was his moderate to severe respiratory distress upon arrival. She was minimally responsive. She is placed on BiPAP and transported to the emergency department for evaluation. EMS did not have a measurable oxygen saturation. Patient is unable to contribute to the history. - Related Data Home Medications Medication Instructions Recorded Confirmed Adalimumab [Humira Pen] 40 mg SQ TU 06/21/14 10/26/18 Latanoprost Ophth [Xalatan 0.005%] 1 drop BOTH EYES DAILY 05/21/17 10/26/18 Cyanocobalamin [Vitamin B-12 1,000 mcg SQ Q30D 07/24/18 10/26/18 Injection] Dicyclomine [Bentyl] 10 mg PO TID 07/24/18 10/26/18 Ondansetron [Zofran] 4 mg PO Q6H PRN 07/24/18 10/26/18 Albuterol Nebulized [Ventolin 2.5 mg INHALATION RT-TID PRN 09/09/18 10/26/18 Nebulized] Ipratropium-Albuterol Nebulize 3 ml INHALATION RT-Q8H 09/09/18 10/26/18 [Duoneb 0.5 mg-3 mg/3 ml Soln] Loperamide [Imodium] 2 mg PO Q6H PRN 09/09/18 10/26/18 Budesonide 1 mg INHALATION RT-BID 09/27/18 10/26/18 Gabapentin [Neurontin] 300 mg PO TID 09/27/18 10/26/18 HYDROcodone/APAP 10-325MG [[place] 1 tab PO Q4H PRN 09/27/18 10/26/18 10-325] Nicotine Polacrilex [Nicorette] 4 mg BUCCAL Q6H PRN 09/27/18 10/26/18 Opium Tincture 10mg/1ml 20 mg PO QID PRN 09/27/18 10/26/18 predniSONE See Taper PO DIRECTED 10/26/18 10/26/18 Previous Rx's Medication Instructions Recorded Colchicine [Colcrys] 0.6 mg PO DAILY #21 each 10/16/18 DULoxetine HCL [Cymbalta] 30 mg PO BID #60 capsule. 10/16/18 Furosemide [Lasix] 20 mg PO DAILY #0 10/16/18 LORazepam [Ativan] 0.25 mg PO TID 3 Days #5 tab 10/16/18 Melatonin 15 mg PO HS tablet 10/16/18 Metoprolol Tartrate [Lopressor] 50 mg PO BID #60 tab 10/16/18 Nystatin 100,000 Unit/ml Susp 500,000 unit PO QID #120 ml 10/16/18 [Mycostatin Oral Susp] Potassium Chloride ER [K-Dur 20] 10 meq PO DAILY #0 10/16/18 Verapamil [Isoptin] 40 mg PO TID #90 tab 10/16/18 busPIRone HCl [Buspar] 10 mg PO TID #90 tab 10/16/18 Allergies Allergy/AdvReac Type Severity Reaction Status Date / Time Iodinated Contrast- Oral and Allergy Anaphylaxis Verified 10/26/18 15:49 IV Dye pregabalin [From Lyrica] Allergy Unknown Verified 10/26/18 15:49 rofecoxib [From Vioxx] Allergy Unknown Verified 10/26/18 15:49 Sulfa (Sulfonamide Allergy Rash/Hives Verified 10/26/18 15:49 Antibiotics) aspirin AdvReac Internal Verified 10/26/18 15:49 Bleeding timolol [Timolol] AdvReac Nausea & Verified 10/26/18 15:49 Vomiting Review of Systems ROS Statement: Those systems with pertinent positive or pertinent negative responses have been documented in the HPI. ROS Other: All systems not noted in ROS Statement are negative. Past Medical History Past Medical History: COPD, Fibromyalgia, GERD/Reflux, GI Bleed, Hyperlipidemia , Hypertension, Osteoarthritis (OA), Pneumonia, Syncope Additional Past Medical History / Comment(s): in past took meds for high blood pressure.COPD-02 3 liters n/c atc, crohn's, bowel obstructions, lower GI bleeds , hiatal hernia, osteoporosis, arthritis multiple joints, seasonal allergies, right-sided pneumothorax x2; ventilator 07/24/18 - transfer from [facility] r/t bollas History of Any Multi-Drug Resistant Organisms: None Reported Past Surgical History: Breast Surgery, Cholecystectomy, Hernia Repair, Hysterectomy, Orthopedic Surgery Additional Past Surgical History / Comment(s): Multiple bowel surgeries including total colectomy/ileostomy, ileostomy moved/repaired, R tube and R ovary removed due tectopic , total hysterectomy, leep procedure, laparoscopy for endometriosis, L breast lumpectomy-benign, r breast core bx- benign, EGD/colonoscopies. Right-sided Thora-vent placement May 09 and May 19. Eye surgery bilateral,arthroscopic knee surgery on he right due to ACL and Maniscal tear. Past Anesthesia/Blood Transfusion Reactions: No Reported Reaction Past Psychological History: Anxiety Smoking Status: Former smoker - Past Family History Mother Family Medical History: Cancer, COPD, Hypertension Additional Family Medical History / Comment(s): Mother at age 83 from COPD and osteoarthritis and had skin cancer. Father Family Medical History: Cancer, CVA/TIA, Dementia, Diabetes Mellitus Additional Family Medical History / Comment(s): Father is 90yrs old. Brother(s) Family Medical History: Cancer Additional Family Medical History / Comment(s): Patient had 5 brothers and one of them from melanoma. Sister(s) History Unknown: Yes Family Medical History: No Reported History Additional Family Medical History / Comment(s): Patient has one sister. Patient has no kids. General Exam Limitations: no limitations General appearance: obtunded, in distress Head exam: Present: atraumatic, normocephalic Eye exam: Present: PERRL ENT exam: Present: mucous membranes dry Neck exam: Present: other (Positive JVD) Respiratory exam: Present: respiratory distress, wheezes. Absent: decreased breath sounds (Decreased bilateral breath sounds) Cardiovascular Exam: Present: normal rhythm, tachycardia GI/Abdominal exam: Present: distended, tenderness, other (Right colostomy) Extremities exam: Present: other (No measurable pedal pulses, normal radial pulses, distal cyanosis). Absent: normal capillary refill Neurological exam: Present: other (Pupils reactive, respond to deep sternal rub) Skin exam: Present: cyanosis, diaphoretic, pallor. Absent: warm Course Vital Signs 10/26/18 10/26/18 10/26/18 15:31 15:51 16:00 Temperature 97.3 F L Pulse Rate 101 H 152 H 125 H Respiratory 40 H 12 12 Rate Blood Pressure 150/108 98/75 111/66 O2 Sat by Pulse 90 L 95 Oximetry 10/26/18 10/26/18 10/26/18 16:15 16:30 16:45 Temperature Pulse Rate 99 97 Respiratory 12 20 30 H Rate Blood Pressure 73/27 47/33 88/49 O2 Sat by Pulse Oximetry 10/26/18 10/26/18 17:00 17:15 Temperature Pulse Rate 95 107 H Respiratory 11 L 16 Rate Blood Pressure 93/69 96/75 O2 Sat by Pulse 100 Oximetry EKG Findings - EKG Comments: EKG Findings:: EKG obtained at 1555 sinus tachycardia, rate of 150 may be underlying atrial flutter with 2-1 conduction, no ST segment elevation, ID interval 144, QRS duration 76, QTC 534, repeat EKG obtained at 1622, sinus tachycardia rate 125, ID interval 162, QRS duration 88, QTC 41, no ST segment elevation Procedures - Central Line Placement Left SC Consent Obtained: emergent situation Time Out Performed: Yes Patient Placed on Monitor/Pulse Ox: Yes MD Prep: mask, gloves Central Line Prep: Chlorhexidine scrub, sterile drapes applied Ultrasound Used for Placement: No Central Line Lumen Inserted: triple Central Line Position: good blood return, all ports aspirated, flushed, capped, sutured in place with nylon Dressing Applied: Tegaderm Post Procedure X-Ray: tip of catheter in good position Patient Tolerated Procedure: well Complications: none - Chest Tube Insertion Consent Obtained: emergent situation Time Out Performed: Yes Side of Procedure: left, right Indication: Pneumothorax Placed on monitor/pulse oximetry: Yes Site Prep: Povidone-Iodine Insertion Site: 5th Intercostal Space, Midaxillary, Other (3 chest tubes placed , left second intercostal mid clavicular line for event, and bilateral 24- [place] chest tubes) Open into Pleural Space Using: Trocar Tube Size ([place]): Other (24) Returns: Air Sutured in Place: Yes Type of Suture: Silk Dressing Applied: Petroleum Gauze Attached to Suction: Yes Type of Suction: Pleuravac Repeat X-ray Results: Lung Inflated Patient Tolerated Procedure: well - Intubation Time Out Performed: Yes Sedative: Versed Mg Given: 5 Paralytic: Rocuronium Mg Given: 40 Laryngoscope: Paul Size: 3 ET Tube Size: 7 ET Tube Uncuffed: No Tube Secured Depth (cm): 19 Tube Secured Location: lips Tube Placement Confirmation: visualized tube passing through cords, equal breath sounds bilaterally, no breath sounds over epigastrium, confirmation by capnometry Patient Tolerated Procedure: well Medical Decision Making - Medical Decision Making 58-year-old female presenting in severe respiratory distress. Patient minimally responsive. Normal breath sounds bilaterally. Patient was transferred from EMS stretcher, immediately intubated for respiratory failure. Initial vital signs, tachycardic, no measurable pulse oximetry, hypotensive. Patient has positive JVD, one view chest is obtained, positive for pneumothorax , 50% of the left, concern for pneumothorax on the right as well. Left-sided for event is placed immediately, patient fails to respond, she does only rest and CPR was initiated by ACLS protocol. Please refer to the code sheet for rhythm changes and occasions given. Left-sided 24-[place] chest tube was placed during resuscitation. Central line placed in the left subclavian vein. This is a crash line, not complete sterile technique used. Repeat x-ray obtained, this does confirm a left pneumothorax as well as intubation, and subclavian line placement, this is highly suspicious for right-sided pneumothorax, right- sided 24-[place] chest tube was immediately placed. Patient's vital signs improved, heart rate decreases, blood pressure improves but is still requiring low-dose norepinephrine. Laboratory studies revealed mild leukocytosis, stable hemogram, lactic is elevated this was obtained after cardiac arrest. Potassium 5.6. ABG pending. Repeat chest x-rays do show bilateral pneumothoraces improved in size. Case is discussed with admitting physician Dr. Sanchez, and pulmonary forest scientist, Dr. Meza. Admit to ICU, guarded prognosis - Lab Data Result diagrams: 10/26/18 16:28 10/26/18 16:28 Lab Results 10/26/18 10/26/18 10/26/18 Range/Units 16:28 16:28 16:28 WBC 12.4 H (3.8-10.6) k/uL RBC 4.16 (3.80-5.40) m/uL Hgb 11.5 (11.4-16.0) gm/dL Hct 39.6 (34.0-46.0) % MCV 95.3 (80.0-100.0) fL MCH 27.7 (25.0-35.0) pg MCHC 29.0 L (31.0-37.0) g/dL RDW 14.5 (11.5-15.5) % Plt Count 305 (150-450) k/uL Neutrophils % 85 % Lymphocytes % 11 % Monocytes % 2 % Eosinophils % 2 % Basophils % 0 % Neutrophils # 10.6 H (1.3-7.7) k/uL Lymphocytes # 1.3 (1.0-4.8) k/uL Monocytes # 0.2 (0-1.0) k/uL Eosinophils # 0.2 (0-0.7) k/uL Basophils # 0.0 (0-0.2) k/uL Hypochromasia Marked PT (9.0-12.0) sec INR (<1.2) APTT (22.0-30.0) sec Sodium 143 (137-145) mmol/L Potassium 5.6 H (3.5-5.1) mmol/L Chloride 110 H (98-107) mmol/L Carbon Dioxide 26 (22-30) mmol/L Anion Gap 7 mmol/L BUN 33 H (7-17) mg/dL Creatinine 0.95 (0.52-1.04) mg/dL Est GFR (CKD-EPI)AfAm 77 (>60 ml/min/1.73 sqM) Est GFR (CKD-EPI)NonAf 67 (>60 ml/min/1.73 sqM) Glucose 166 H (74-99) mg/dL Plasma Lactic Acid Josep (0.7-2.0) mmol/L Calcium 8.8 (8.4-10.2) mg/dL Magnesium 2.2 (1.6-2.3) mg/dL Total Bilirubin 0.8 (0.2-1.3) mg/dL AST 56 H (14-36) U/L ALT 98 H (9-52) U/L Alkaline Phosphatase 65 (38-126) U/L Total Creatine Kinase 20 L (30-135) U/L CK-MB (CK-2) 1.7 (0.0-2.4) ng/mL CK-MB (CK-2) Rel Index 8.5 Troponin I 0.016 (0.000-0.034) ng/mL NT-Pro-B Natriuret Pep pg/mL Total Protein 4.8 L (6.3-8.2) g/dL Albumin 2.7 L (3.5-5.0) g/dL 10/26/18 10/26/18 10/26/18 Range/Units 16:28 16:28 16:28 WBC (3.8-10.6) k/uL RBC (3.80-5.40) m/uL Hgb (11.4-16.0) gm/dL Hct (34.0-46.0) % MCV (80.0-100.0) fL MCH (25.0-35.0) pg MCHC (31.0-37.0) g/dL RDW (11.5-15.5) % Plt Count (150-450) k/uL Neutrophils % % Lymphocytes % % Monocytes % % Eosinophils % % Basophils % % Neutrophils # (1.3-7.7) k/uL Lymphocytes # (1.0-4.8) k/uL Monocytes # (0-1.0) k/uL Eosinophils # (0-0.7) k/uL Basophils # (0-0.2) k/uL Hypochromasia PT 10.5 (9.0-12.0) sec INR 1.0 (<1.2) APTT 20.0 L (22.0-30.0) sec Sodium (137-145) mmol/L Potassium (3.5-5.1) mmol/L Chloride (98-107) mmol/L Carbon Dioxide (22-30) mmol/L Anion Gap mmol/L BUN (7-17) mg/dL Creatinine (0.52-1.04) mg/dL Est GFR (CKD-EPI)AfAm (>60 ml/min/1.73 sqM) Est GFR (CKD-EPI)NonAf (>60 ml/min/1.73 sqM) Glucose (74-99) mg/dL Plasma Lactic Acid Josep 4.1 H* (0.7-2.0) mmol/L Calcium (8.4-10.2) mg/dL Magnesium (1.6-2.3) mg/dL Total Bilirubin (0.2-1.3) mg/dL AST (14-36) U/L ALT (9-52) U/L Alkaline Phosphatase (38-126) U/L Total Creatine Kinase (30-135) U/L CK-MB (CK-2) (0.0-2.4) ng/mL CK-MB (CK-2) Rel Index Troponin I (0.000-0.034) ng/mL NT-Pro-B Natriuret Pep 227 pg/mL Total Protein (6.3-8.2) g/dL Albumin (3.5-5.0) g/dL Critical Care Time Critical Care Time: Yes Total Critical Care Time: 95 Disposition Clinical Impression: Acute exacerbation of chronic obstructive airways disease, Bilateral pneumothorax, Respiratory failure, Cardiopulmonary arrest with successful resuscitation Disposition: ADMITTED IP TO THIS [facility] Condition: Serious Is patient prescribed a controlled substance at d/c from ED?: No Referrals: Heber James MD [Primary Care Provider] - 1-2 days Decision to Admit Reason: Admit from EC Decision Date: 10/26/18 Decision Time: 18:09
[2018-10-26] MEDS ORDERED: MIDAZOLAM HCL 100 MG in SODIUM CHLORIDE 0.9% 80 ML IV ONE (18:26)
[2018-10-26] MEDS ORDERED: MIDAZOLAM HCL 100 MG in SODIUM CHLORIDE 0.9% 80 ML IV SCH (18:30)
[2018-10-26] MEDS: fentaNYL (PF) 2,500 MCG in SODIUM CHLORIDE 0.9% 200 ML IV SCH (19:09)
[2018-10-26 19:38] LABS: Glucose,Whole Blood 147 mg/dL (75-99)
[2018-10-26] MEDS: IPRATROPIUM-ALBUTEROL 3 ML NEB INHALATION SCH (19:42)
[2018-10-26] MEDS ORDERED: SODIUM CHLORIDE 0.9% 1,000 ML IV ONE ×2 (20:06→21:28)
[2018-10-26] MEDS ORDERED: NOREPINEPHRINE 16 MG in SODIUM CHLORIDE 0.9% 250 ML IV SCH (20:15)
[2018-10-26] MEDS: PROPOFOL 1,000 MG in EMPTY BAG 1 BAG IV SCH (20:39)
[2018-10-26 21:06] LABS: Anion Gap 6 mmol/L; Blood Urea Nitrogen 36 mg/dL (7-17); Calcium 9.7 mg/dL (8.4-10.2); Carbon Dioxide 30 mmol/L (22-30); Chloride 110 mmol/L (98-107); Glucose 148 mg/dL (74-99); Sodium 146 mmol/L (137-145)
[2018-10-26 21:09] LABS: Potassium 5.4 mmol/L (3.5-5.1)
[2018-10-26] MEDS: CHLORHEXIDINE GLUCONATE 15 ML CUP MUCOUS MEM SCH (21:14)
[2018-10-26 21:45] LABS: Amorphous Sediment,Urine Rare /hpf; Appearance,Urine Cloudy (Clear); Bacteria,Urine Rare /hpf; Bilirubin,Urine Negative (Negative); Blood,Urine Small (Negative); Color,Urine Yellow; Glucose,Urine (UA) Trace (Negative); Hyaline Casts,Urine 22 /lpf (0-2); Ketones,Urine Negative (Negative); Leukocyte Esterase,Urine Negative (Negative); Mucus,Urine Occasional /hpf; Nitrite,Urine Negative (Negative); Protein,Urine 2+ (Negative); RBC,Urine 5 /hpf (0-5); Specific Gravity,Urine 1.018 (1.001-1.035); Urobilinogen,Urine <2.0 mg/dL (<2.0)
[2018-10-26] MEDS: HEPARIN SODIUM,PORCINE 5,000 UNIT/ML 1 ML VIAL SQ SCH (23:05)
[2018-10-26] MEDS: IPRATROPIUM-ALBUTEROL 3 ML NEB INHALATION PRN (23:28)
[2018-10-27 00:07] LABS: Glucose,Whole Blood 84 mg/dL (75-99)
--- NOTE | 2018-10-27 01:34 | XR ---
EXAMINATION TYPE: XR chest 1V portable DATE OF EXAM: 10/27/2018 COMPARISON: Yesterday HISTORY: Follow-up pneumothorax TECHNIQUE: Single frontal view of the chest is obtained. FINDINGS: There is apparent bilateral improvement in the pneumothorax compared to last exam at 5:00 PM yesterday. Bilateral chest tubes in good position. Left central venous catheter in the superior ve na cava. Additional left chest tube in good position. Atelectasis and infiltrate in the left midlung. Small right pleural effusion. IMPRESSION: Pneumothorax improved slightly bilaterally compared to last exam.
[2018-10-27] MEDS ORDERED: SODIUM CHLORIDE 0.9% 1,000 ML IV ONE (03:16)
[2018-10-27 03:19] LABS: Glucose,Whole Blood 75 mg/dL (75-99)
[2018-10-27] MEDS: IPRATROPIUM-ALBUTEROL 3 ML NEB INHALATION PRN (03:40)
[2018-10-27 05:00] LABS: Blood Urea Nitrogen 24 mg/dL (7-17); Calcium 8.2 mg/dL (8.4-10.2); Carbon Dioxide 26 mmol/L (22-30); Chloride 117 mmol/L (98-107); Glucose 81 mg/dL (74-99); Magnesium 1.4 mg/dL (1.6-2.3); Phosphorus 2.4 mg/dL (2.5-4.5)
[2018-10-27 05:01] LABS: Anion Gap 2 mmol/L; Sodium 145 mmol/L (137-145)
[2018-10-27 05:02] LABS: HCT 32.6 % (34.0-46.0); Hypochromasia Marked; MCH 29.4 pg (25.0-35.0); MCHC 30.8 g/dL (31.0-37.0); MCV 95.7 fL (80.0-100.0); Mean Platelet Volume 7.2; Platelet Count 182 k/uL (150-450); RDW 14.9 % (11.5-15.5); WBC 7.6 k/uL (3.8-10.6)
[2018-10-27] MEDS ORDERED: Magnesium Replacement Protocol 1 EACH MISC MISCELLANE PRN (05:32)
[2018-10-27 05:33] LABS: Potassium 4.1 mmol/L (3.5-5.1)
[2018-10-27 05:37] LABS: ABG Base Excess -0.6 mmol/L; ABG HCO3 25 mmol/L (21-25); ABG Oxygen Saturation 97.9 % (94-97); ABG PCO2 41 mmHg (35-45); ABG PH 7.38 (7.35-7.45); ABG PO2 85 mmHg (83-108); ABG TCO2 26 mmol/L (19-24)
[2018-10-27] MEDS: MAGNESIUM SULFATE-D5W PMX 1 GM in DEXTROSE/WATER 1 100ML.BAG IVPB SCH ×3 (05:58→12:47)
[2018-10-27 06:02] LABS: Band Neutrophils % 9 %; Eosinophils # (M) 0.08 k/uL (0-0.7); Lymphocytes # (M) 0.53 k/uL (1.0-4.8); Monocytes # (M) 0.15 k/uL (0-1.0); Neutrophils % (M) 81 %; Nucleated Red Blood Cells 0 /100 WBC (0-0); Total Cells Counted 100
[2018-10-27 06:11] LABS: Glucose,Whole Blood 77 mg/dL (75-99)
[2018-10-27] MEDS: IPRATROPIUM-ALBUTEROL 3 ML NEB INHALATION SCH ×5 (07:39→23:21)
--- NOTE | 2018-10-27 08:26 | XR ---
EXAMINATION TYPE: XR chest 1V portable DATE OF EXAM: 10/27/2018 COMPARISON: 10/27/2018 INDICATION: Bilateral pneumothoraces TECHNIQUE: Single frontal view of the chest is obtained. FINDINGS: The heart size is normal. The pulmonary vasculature is normal. Mild increased densities at the mid and lower left lung. Some mild medial right lower lung field incr eased density is present. Consider atelectasis and infiltrates. There are bilateral chest tubes present. An additional left apical chest tube is present. Endotracheal tube and nasogastric tube are present. A left central venous catheter is present with th e tip in the superior vena cava right atrial junction region. Subcutaneous emphysema is along the lateral left chest wall. Previous left pneumothorax thoraces appe ar largely resolved. Some minimal apical residual may be present. There may be some residual right basilar pneumothorax. IMPRESSION: 1. Improvement of the bilateral pneumothorax. Minimal residual may remain present at the left apex an d at the right base. 2. Some developing infiltrate in the left mid and lower lung field and medial right lower lobe. Atele ctasis and pneumonia could be considered.
[2018-10-27] MEDS: HEPARIN SODIUM,PORCINE 5,000 UNIT/ML 1 ML VIAL SQ SCH ×2 (08:30→17:14)
[2018-10-27] MEDS: CHLORHEXIDINE GLUCONATE 15 ML CUP MUCOUS MEM SCH ×2 (08:31→20:06)
[2018-10-27] MEDS: PANTOPRAZOLE 40 MG/10 ML VIAL IV SCH (08:31)
[2018-10-27] MEDS ORDERED: SODIUM CHLORIDE 0.45% 1,000 ML IV ONE (09:59)
--- NOTE | 2018-10-27 10:10 | P.CNPUL ---
History of Present Illness Consult date: 10/27/18 Requesting physician: Amadeo Sanchez Reason for consult: pneumothorax Chief complaint: Severe respiratory distress History of present illness: This is a 58-year-old female patient who follows with Dr. James as her primary care physician. She has a history of hyperlipidemia, hypothyroidism, anemia, fibromyalgia, anxiety/depression. Chest has a history of severe oxygen- dependent bullous emphysema/COPD with FEV1 value of 36% of predicted and a chronic left upper lobe inflammatory opacity that was nonmalignant. She has a history of prolonged respiratory failure requiring mechanical ventilation and was subsequently trached and transferred to [facility] in the past. She had since been decannulated. She's had multiple admissions for COPD exacerbations most recently discharged from here on 10/16/2018. She was brought in by EMS to the emergency room yesterday with severe respiratory distress requiring initially BiPAP support. She was found to have bilateral pneumothorax and chest tubes were placed as well as a left thoravent. She had a brief cardiac arrest requiring epinephrine. She was subsequently intubated and placed on mechanical ventilator and transferred here to the intensive care unit. She is seen today in consultation with current vent settings assist- control of 16, tidal volume 350, FiO2 of 35% and a PEEP of 5. Morning blood gases reveal a P O2 of 85, pCO2 41, pH 7.38. Her measured airway resistance is currently 8.8. She is sedated on to prevent at 30 mcg/kg/m., Fentanyl drip at 1 mcg/kg per hour, 1.9 normal saline at 75 ML's per hour. She does follow simple commands. She is moving all fours. Cultures are pending. White count 7.6. Hemoglobin 10.0. Creatinine 0.69. She's been initiated and DuoNeb inhalations. Review of Systems ROS unobtainable: due to endotracheal tube Past Medical History Past Medical History: COPD, Fibromyalgia, GERD/Reflux, GI Bleed, Hyperlipidemia , Hypertension, Osteoarthritis (OA), Pneumonia, Syncope Additional Past Medical History / Comment(s): in past took meds for high blood pressure.COPD-02 3 liters n/c atc, crohn's, bowel obstructions, lower GI bleeds , hiatal hernia, osteoporosis, arthritis multiple joints, seasonal allergies, right-sided pneumothorax x2; ventilator 07/24/18 - transfer from [facility] r/t leleee History of Any Multi-Drug Resistant Organisms: None Reported Past Surgical History: Breast Surgery, Cholecystectomy, Hernia Repair, Hysterectomy, Orthopedic Surgery Additional Past Surgical History / Comment(s): Multiple bowel surgeries including total colectomy/ileostomy, ileostomy moved/repaired, R tube and R ovary removed due tectopic , total hysterectomy, leep procedure, laparoscopy for endometriosis, L breast lumpectomy-benign, r breast core bx- benign, EGD/colonoscopies. Right-sided Thora-vent placement May 09 and May 19. Eye surgery bilateral,arthroscopic knee surgery on he right due to ACL and Maniscal tear. past ventilation,( trach and peg tube-since removed) Past Anesthesia/Blood Transfusion Reactions: No Reported Reaction Smoking Status: Former smoker - Past Family History Mother Family Medical History: Cancer, COPD, Hypertension Additional Family Medical History / Comment(s): Mother at age 83 from COPD and osteoarthritis and had skin cancer. Father Family Medical History: Cancer, CVA/TIA, Dementia, Diabetes Mellitus Additional Family Medical History / Comment(s): Father is 90yrs old. Brother(s) Family Medical History: Cancer Additional Family Medical History / Comment(s): Patient had 5 brothers and one of them from melanoma. Sister(s) History Unknown: Yes Family Medical History: No Reported History Additional Family Medical History / Comment(s): Patient has one sister. Patient has no kids. Medications and Allergies Home Medications Medication Instructions Recorded Confirmed Type Adalimumab [Humira Pen] 40 mg SQ TU 06/21/14 10/26/18 History Latanoprost Ophth [Xalatan 0.005%] 1 drop BOTH EYES DAILY 05/21/17 10/26/18 History Cyanocobalamin [Vitamin B-12 1,000 mcg SQ Q30D 07/24/18 10/26/18 History Injection] Dicyclomine [Bentyl] 10 mg PO TID 07/24/18 10/26/18 History Ondansetron [Zofran] 4 mg PO Q6H PRN 07/24/18 10/26/18 History Albuterol Nebulized [Ventolin 2.5 mg INHALATION RT-TID PRN 09/09/18 10/26/18 History Nebulized] Ipratropium-Albuterol Nebulize 3 ml INHALATION RT-Q8H 09/09/18 10/26/18 History [Duoneb 0.5 mg-3 mg/3 ml Soln] Loperamide [Imodium] 2 mg PO Q6H PRN 09/09/18 10/26/18 History Budesonide 1 mg INHALATION RT-BID 09/27/18 10/26/18 History Gabapentin [Neurontin] 300 mg PO TID 09/27/18 10/26/18 History HYDROcodone/APAP 10-325MG [Bryan 1 tab PO Q4H PRN 09/27/18 10/26/18 History 10-325] Nicotine Polacrilex [Nicorette] 4 mg BUCCAL Q6H PRN 09/27/18 10/26/18 History Opium Tincture 10mg/1ml 20 mg PO QID PRN 09/27/18 10/26/18 History Colchicine [Colcrys] 0.6 mg PO DAILY #21 each 10/16/18 10/26/18 Rx DULoxetine HCL [Cymbalta] 30 mg PO BID #60 capsule.dr 10/16/18 10/26/18 Rx Furosemide [Lasix] 20 mg PO DAILY #0 10/16/18 10/26/18 Rx LORazepam [Ativan] 0.25 mg PO TID 3 Days #5 tab 10/16/18 10/26/18 Rx Melatonin 15 mg PO HS tablet 10/16/18 10/26/18 Rx Metoprolol Tartrate [Lopressor] 50 mg PO BID #60 tab 10/16/18 10/26/18 Rx Nystatin 100,000 Unit/ml Susp 500,000 unit PO QID #120 ml 10/16/18 10/26/18 Rx [Mycostatin Oral Susp] Potassium Chloride ER [K-Dur 20] 10 meq PO DAILY #0 10/16/18 10/26/18 Rx Verapamil [Isoptin] 40 mg PO TID #90 tab 10/16/18 10/26/18 Rx busPIRone HCl [Buspar] 10 mg PO TID #90 tab 10/16/18 10/26/18 Rx predniSONE See Taper PO DIRECTED 10/26/18 10/26/18 History Allergies Allergy/AdvReac Type Severity Reaction Status Date / Time Iodinated Contrast- Oral and Allergy Anaphylaxis Verified 10/26/18 15:49 IV Dye pregabalin [From Lyrica] Allergy Unknown Verified 10/26/18 15:49 rofecoxib [From Vioxx] Allergy Unknown Verified 10/26/18 15:49 Sulfa (Sulfonamide Allergy Rash/Hives Verified 10/26/18 15:49 Antibiotics) aspirin AdvReac Internal Verified 10/26/18 15:49 Bleeding timolol [Timolol] AdvReac Nausea & Verified 10/26/18 15:49 Vomiting Physical Exam Vitals: Vital Signs Temp Pulse Resp BP Pulse Ox 10/27/18 07:57 99 10/27/18 07:40 93 10/27/18 06:00 90 11 L 109/77 99 10/27/18 05:30 96 16 93/66 97 10/27/18 05:00 112 H 20 93/66 96 10/27/18 04:30 111 H 19 100/76 97 10/27/18 04:00 97.9 F 95 21 97/70 97 10/27/18 03:50 96 10/27/18 03:40 100 10/27/18 03:30 96 21 92/65 99 10/27/18 03:00 108 H 17 91/72 99 10/27/18 02:30 124 H 18 108/79 96 10/27/18 02:00 133 H 19 85/66 97 10/27/18 01:30 131 H 18 114/86 97 10/27/18 01:00 112 H 18 97/77 98 10/27/18 00:30 112 H 19 88/71 98 10/27/18 00:01 123 H 18 71/58 97 10/27/18 00:00 98.2 F 121 H 16 84/64 97 10/26/18 23:43 104 H 10/26/18 23:30 100 16 116/85 98 10/26/18 23:29 105 H 10/26/18 23:00 86 18 83/67 98 10/26/18 22:30 98 18 83/67 100 10/26/18 22:00 86 16 88/65 99 10/26/18 21:30 109 H 16 84/66 99 10/26/18 21:00 96 16 97/77 99 10/26/18 20:30 92 16 94/78 100 10/26/18 20:00 80 16 86/69 99 10/26/18 19:53 90 10/26/18 19:42 94 10/26/18 19:30 124 H 14 75/59 97 10/26/18 19:00 116 H 29 H 90/64 95 10/26/18 18:45 116 H 12 104/81 100 10/26/18 18:30 116 H 17 110/90 100 10/26/18 18:15 120 H 28 H 115/105 100 10/26/18 18:00 111 H 12 110/84 100 10/26/18 17:45 112 H 14 119/88 100 10/26/18 17:30 115 H 21 101/75 100 10/26/18 17:15 107 H 16 96/75 100 10/26/18 17:00 95 11 L 93/69 10/26/18 16:45 97 30 H 88/49 10/26/18 16:30 99 20 47/33 10/26/18 16:15 12 73/27 10/26/18 16:00 125 H 12 111/66 10/26/18 15:51 152 H 12 98/75 95 10/26/18 15:31 97.3 F L 101 H 40 H 150/108 90 L Intake and Output 10/26/18 10/27/18 10/27/18 22:59 06:59 14:59 Intake Total 2329.687 1711.414 350 Output Total 89 427 75 Balance 2240.687 1284.414 275 Intake: IV 2225 1675 150 Sodium Chloride 0.9% 1, 2225 675 150 000 ml @ 75 mls/hr IV . [id number] STA Rx#:[id number] Sodium Chloride 0.9% 1, 1000 000 ml @ 999 mls/hr IV . Q1H1M ONE Rx#:[id number] Intake, IV Titration 104.687 36.414 200 Amount Magnesium Sulfate-D5w Pmx 200 1 gm In Dextrose/Water 1 100ml.bag @ 100 mls/hr IVPB Q1H [facility] Rx#: [id number] Norepinephrine 4 mg In 104.687 6.938 Sodium Chloride 0.9% 250 ml @ Titrate IV .Q0M ONE Rx#:[id number] Propofol 1,000 mg In 29.476 Empty Bag 1 bag @ Titrate IV .Q0M [facility] Rx#: [id number] Output: Urine 89 397 75 Stool 30 Other: Voiding Method Indwelling Catheter Indwelling Catheter Weight 40.823 kg 55.1 kg GENERAL EXAM: Intubated, sedated. Frail, cachectic comfortable in no apparent distress. HEAD: Normocephalic. EYES: Normal reaction of pupils, equal size. NOSE: Clear with pink turbinates. THROAT: Oral endotracheal and gastric tube secured in place. No erythema or exudates. NECK: No masses, no JVD. Previous tracheostomy site scar. CHEST: No chest wall deformity. Bilateral chest tubes in place. Left sided Dura-Vent in place. Left-sided subcutaneous emphysema. LUNGS: Equal air entry with bilateral end expiratory wheeze, diminished. CVS: S1 and S2 normal with no audible murmur, regular rhythm. ABDOMEN: No hepatosplenomegaly, normal bowel sounds, no guarding or rigidity. SPINE: No scoliosis or deformity SKIN: No rashes CENTRAL NERVOUS SYSTEM: No focal deficits, tone is normal in all 4 extremities. EXTREMITIES: There is no peripheral edema. No clubbing, no cyanosis. Peripheral pulses are intact. Results - Laboratory Findings CBC and BMP: 10/27/18 04:20 10/27/18 04:20 ABG ABG pH 7.38 (7.35-7.45) 10/27/18 05:26 ABG pCO2 41 mmHg (35-45) 10/27/18 05:26 ABG pO2 85 mmHg (83-108) 10/27/18 05:26 ABG O2 Saturation 97.9 % (94-97) H 10/27/18 05:26 PT/INR, D-dimer PT 10.5 sec (9.0-12.0) 10/26/18 16:28 INR 1.0 (<1.2) 10/26/18 16:28 Abnormal lab findings: Abnormal Labs 10/26/18 10/26/18 10/26/18 16:28 16:28 16:28 WBC 12.4 H RBC Hgb Hct MCHC 29.0 L Neutrophils # 10.6 H Lymphocytes # (Manual) APTT ABG pH ABG pCO2 ABG pO2 ABG HCO3 ABG Total CO2 ABG O2 Saturation Sodium Potassium 5.6 H Chloride 110 H BUN 33 H Glucose 166 H POC Glucose (mg/dL) Plasma Lactic Acid Josep Calcium Phosphorus Magnesium AST 56 H ALT 98 H Total Creatine Kinase 20 L Total Protein 4.8 L Albumin 2.7 L Urine Appearance Urine Protein Urine Glucose (UA) Urine Blood Urine WBC Amorphous Sediment Urine Bacteria Hyaline Casts Urine Mucus 10/26/18 10/26/18 10/26/18 16:28 16:28 17:54 WBC RBC Hgb Hct MCHC Neutrophils # Lymphocytes # (Manual) APTT 20.0 L ABG pH 7.30 L ABG pCO2 62 H ABG pO2 249 H ABG HCO3 30 H ABG Total CO2 32 H ABG O2 Saturation 99.7 H Sodium Potassium Chloride BUN Glucose POC Glucose (mg/dL) Plasma Lactic Acid Josep 4.1 H* Calcium Phosphorus Magnesium AST ALT Total Creatine Kinase Total Protein Albumin Urine Appearance Urine Protein Urine Glucose (UA) Urine Blood Urine WBC Amorphous Sediment Urine Bacteria Hyaline Casts Urine Mucus 10/26/18 10/26/18 10/26/18 19:26 20:45 20:45 WBC RBC Hgb Hct MCHC Neutrophils # Lymphocytes # (Manual) APTT ABG pH ABG pCO2 ABG pO2 ABG HCO3 ABG Total CO2 ABG O2 Saturation Sodium 146 H Potassium 5.4 H Chloride 110 H BUN 36 H Glucose 148 H POC Glucose (mg/dL) 147 H Plasma Lactic Acid Josep 4.2 H* Calcium Phosphorus Magnesium AST ALT Total Creatine Kinase Total Protein Albumin Urine Appearance Urine Protein Urine Glucose (UA) Urine Blood Urine WBC Amorphous Sediment Urine Bacteria Hyaline Casts Urine Mucus 10/26/18 10/27/18 10/27/18 21:28 04:20 04:20 WBC RBC 3.40 L Hgb 10.0 L D Hct 32.6 L MCHC 30.8 L Neutrophils # Lymphocytes # (Manual) 0.53 L APTT ABG pH ABG pCO2 ABG pO2 ABG HCO3 ABG Total CO2 ABG O2 Saturation Sodium Potassium Chloride 117 H BUN 24 H Glucose POC Glucose (mg/dL) Plasma Lactic Acid Josep Calcium 8.2 L Phosphorus 2.4 L Magnesium 1.4 L AST ALT Total Creatine Kinase Total Protein Albumin Urine Appearance Cloudy H Urine Protein 2+ H Urine Glucose (UA) Trace H Urine Blood Small H Urine WBC 10 H Amorphous Sediment Rare H Urine Bacteria Rare H Hyaline Casts 22 H Urine Mucus Occasional H 10/27/18 05:26 WBC RBC Hgb Hct MCHC Neutrophils # Lymphocytes # (Manual) APTT ABG pH ABG pCO2 ABG pO2 ABG HCO3 ABG Total CO2 26 H ABG O2 Saturation 97.9 H Sodium Potassium Chloride BUN Glucose POC Glucose (mg/dL) Plasma Lactic Acid Josep Calcium Phosphorus Magnesium AST ALT Total Creatine Kinase Total Protein Albumin Urine Appearance Urine Protein Urine Glucose (UA) Urine Blood Urine WBC Amorphous Sediment Urine Bacteria Hyaline Casts Urine Mucus - Diagnostic Findings Chest x-ray: image reviewed Assessment and Plan Assessment: Impression: #1 Acute hypoxic respiratory failure secondary to acute exacerbation of severe oxygen dependent chronic obstructive pulmonary disease, complicated by bilateral pneumothorax. Status post bilateral chest tube placements as well as a left door vent placement. Currently intubated and on the mechanical ventilator. #2 Brief cardiac arrest secondary to above responded to epinephrine. #3 Severe advanced chronic obstructive pulmonary disease and bullous emphysema with underlying FEV1 value 36% of predicted. Both oxygen and steroid dependent. #4 History of prolonged respiratory failure requiring intubation mechanical ventilation with subsequent tracheostomy and PEG tube placements and [facility] stable. Subsequently decannulated. #5 Previous history of right-sided pneumothorax 2. #6 Chronic left upper lobe inflammatory opacity. #7 Hyperlipidemia. #8 Hypothyroidism. #9 Chronic normocystic anemia. #10 Fibromyalgia. #11 History of anxiety/depression with previous discontinuation of her prescribed medications. Plan: The patient was seen and evaluated by Dr. Meza. Chest x-ray, ABGs and labs were all reviewed. We will add Pulmicort and Perforomist inhalations twice a day, add IV Solu-Medrol, changed 0.9 normal saline to 0.45 normal saline. Continue with sedation and fentanyl another 24 hours. Heparin for DVT prophylaxis. Protonix for GI prophylaxis. Initiate tube feedings. Bilateral chest tubes still with significant leak. Continue current vent settings. Repeat chest x-ray, ABGs and labs in the a.m. We'll continue to follow make further recommendations based on her clinical status. I, the cosigning physician, performed a history & physical examination of the patient. Lungs sounds with bilateral end expiratory wheeze, diminished. Maintaining good O2 saturations in the 90s on 35% FiO2 via mechanical ventilator. I discussed the assessment and plan of care with my nurse practitioner, Trinity Kay. I attest to the above consultation as dictated by her.
[2018-10-27 12:20] LABS: Glucose,Whole Blood 86 mg/dL (75-99)
[2018-10-27] MEDS: methylPREDNISolone SOD SUCCI 125 MG/2 ML VIAL IV SCH ×2 (12:52→17:14)
[2018-10-27 14:01] LABS: Hemoglobin A1C 5.2 % (4.0-6.0)
--- NOTE | 2018-10-27 14:28 | P.HPIM ---
History of Present Illness H&P Date: 10/27/18 Chief Complaint: Severe respiratory distress This is a 58-year-old female who follows with Dr. James as her primary care physician. She has a history of hyperlipidemia, hypothyroidism, anemia, fibromyalgia, anxiety/depression, COPD. She presented to the emergency department with dyspnea. Patient was at home when she experienced rest for distress and called EMS. In route to the hospital she was put on a BiPAP due to minimal responsiveness. Upon arrival to the emergency department her initial vital signs were tachycardic with no measurable pulse oximetry and she was hypotensive. Patient was positive for JVD, 1 view chest was obtained for a positive pneumothorax 50% on the left and a possible pneumothorax on the right. A chest tube was placed on the left and patient had failure to respond to treatment. At which CPR was initiated by ACLS protocol for approximately 1 minute. A central line was placed in the left subclavian vein during the code. Patient was intubated. An repeat chest x-ray showed a pneumothorax on the right and a right-sided 24-Barb[place] chest tube was placed. Patient's vital signs improved and she was transported to ICU for continuation of care. Patient presents intubated at this time. She is awake and able to answer questions appropriately. Her current vent setting assist control of 16, tidal volume 350 , FiO2 at 35% and a PEEP of 5. Her morning blood gases reveal a pO2 of 85 pCO2 of 41 pH 7.38. H&H is currently sedated with 30 mics per KG per minute of debridement and, fentanyl drip at 1 MCG per KG per hour. Patient is able to follow commands she is able to move all 4 extremities. Her white count is 7.6, hemoglobin of 10, creatinine 0.6. Review of Systems ROS unobtainable: due to endotracheal tube Past Medical History Past Medical History: COPD, Fibromyalgia, GERD/Reflux, GI Bleed, Hyperlipidemia , Hypertension, Osteoarthritis (OA), Pneumonia, Syncope Additional Past Medical History / Comment(s): in past took meds for high blood pressure.COPD-02 3 liters n/c atc, crohn's, bowel obstructions, lower GI bleeds , hiatal hernia, osteoporosis, arthritis multiple joints, seasonal allergies, right-sided pneumothorax x2; ventilator 07/24/18 - transfer from [facility] r/t leelee History of Any Multi-Drug Resistant Organisms: None Reported Past Surgical History: Breast Surgery, Cholecystectomy, Hernia Repair, Hysterectomy, Orthopedic Surgery Additional Past Surgical History / Comment(s): Multiple bowel surgeries including total colectomy/ileostomy, ileostomy moved/repaired, R tube and R ovary removed due tectopic , total hysterectomy, leep procedure, laparoscopy for endometriosis, L breast lumpectomy-benign, r breast core bx- benign, EGD/colonoscopies. Right-sided Thora-vent placement May 09 and May 19. Eye surgery bilateral,arthroscopic knee surgery on he right due to ACL and Maniscal tear. past ventilation,( trach and peg tube-since removed) Past Anesthesia/Blood Transfusion Reactions: No Reported Reaction Smoking Status: Former smoker - Past Family History Mother Family Medical History: Cancer, COPD, Hypertension Additional Family Medical History / Comment(s): Mother at age 83 from COPD and osteoarthritis and had skin cancer. Father Family Medical History: Cancer, CVA/TIA, Dementia, Diabetes Mellitus Additional Family Medical History / Comment(s): Father is 90yrs old. Brother(s) Family Medical History: Cancer Additional Family Medical History / Comment(s): Patient had 5 brothers and one of them from melanoma. Sister(s) History Unknown: Yes Family Medical History: No Reported History Additional Family Medical History / Comment(s): Patient has one sister. Patient has no kids. Medications and Allergies Home Medications Medication Instructions Recorded Confirmed Type Adalimumab [Humira Pen] 40 mg SQ TU 06/21/14 10/26/18 History Latanoprost Ophth [Xalatan 0.005%] 1 drop BOTH EYES DAILY 05/21/17 10/26/18 History Cyanocobalamin [Vitamin B-12 1,000 mcg SQ Q30D 07/24/18 10/26/18 History Injection] Dicyclomine [Bentyl] 10 mg PO TID 07/24/18 10/26/18 History Ondansetron [Zofran] 4 mg PO Q6H PRN 07/24/18 10/26/18 History Albuterol Nebulized [Ventolin 2.5 mg INHALATION RT-TID PRN 09/09/18 10/26/18 History Nebulized] Ipratropium-Albuterol Nebulize 3 ml INHALATION RT-Q8H 09/09/18 10/26/18 History [Duoneb 0.5 mg-3 mg/3 ml Soln] Loperamide [Imodium] 2 mg PO Q6H PRN 09/09/18 10/26/18 History Budesonide 1 mg INHALATION RT-BID 09/27/18 10/26/18 History Gabapentin [Neurontin] 300 mg PO TID 09/27/18 10/26/18 History HYDROcodone/APAP 10-325MG [[place] 1 tab PO Q4H PRN 09/27/18 10/26/18 History 10-325] Nicotine Polacrilex [Nicorette] 4 mg BUCCAL Q6H PRN 09/27/18 10/26/18 History Opium Tincture 10mg/1ml 20 mg PO QID PRN 09/27/18 10/26/18 History Colchicine [Colcrys] 0.6 mg PO DAILY #21 each 10/16/18 10/26/18 Rx DULoxetine HCL [Cymbalta] 30 mg PO BID #60 capsule. 10/16/18 10/26/18 Rx Furosemide [Lasix] 20 mg PO DAILY #0 10/16/18 10/26/18 Rx LORazepam [Ativan] 0.25 mg PO TID 3 Days #5 tab 10/16/18 10/26/18 Rx Melatonin 15 mg PO HS tablet 10/16/18 10/26/18 Rx Metoprolol Tartrate [Lopressor] 50 mg PO BID #60 tab 10/16/18 10/26/18 Rx Nystatin 100,000 Unit/ml Susp 500,000 unit PO QID #120 ml 10/16/18 10/26/18 Rx [Mycostatin Oral Susp] Potassium Chloride ER [K-Dur 20] 10 meq PO DAILY #0 10/16/18 10/26/18 Rx Verapamil [Isoptin] 40 mg PO TID #90 tab 10/16/18 10/26/18 Rx busPIRone HCl [Buspar] 10 mg PO TID #90 tab 10/16/18 10/26/18 Rx predniSONE See Taper PO DIRECTED 10/26/18 10/26/18 History Allergies Allergy/AdvReac Type Severity Reaction Status Date / Time Iodinated Contrast- Oral and Allergy Anaphylaxis Verified 10/26/18 15:49 IV Dye pregabalin [From Lyrica] Allergy Unknown Verified 10/26/18 15:49 rofecoxib [From Vioxx] Allergy Unknown Verified 10/26/18 15:49 Sulfa (Sulfonamide Allergy Rash/Hives Verified 10/26/18 15:49 Antibiotics) aspirin AdvReac Internal Verified 10/26/18 15:49 Bleeding timolol [Timolol] AdvReac Nausea & Verified 10/26/18 15:49 Vomiting Physical Exam Vitals: Vital Signs Temp Pulse Resp BP Pulse Ox 10/27/18 13:00 112 H 19 107/78 97 10/27/18 12:30 116 H 28 H 96/70 97 10/27/18 12:00 98.3 F 117 H 21 97/68 96 10/27/18 11:30 113 H 20 97/68 96 10/27/18 11:05 114 H 10/27/18 11:00 115 H 21 98/68 96 10/27/18 10:53 118 H 10/27/18 10:30 122 H 22 103/73 95 10/27/18 10:00 109 H 21 109/81 97 10/27/18 09:30 106 H 30 H 106/78 100 10/27/18 09:00 87 17 96/64 100 10/27/18 08:30 102 H 16 93/63 98 10/27/18 08:00 98.4 F 99 16 104/74 99 10/27/18 07:57 99 10/27/18 07:40 93 10/27/18 07:30 108 H 20 104/74 96 10/27/18 07:00 99 18 95/65 96 10/27/18 06:30 88 17 109/77 98 10/27/18 06:00 90 11 L 109/77 99 10/27/18 05:30 96 16 93/66 97 10/27/18 05:00 112 H 20 93/66 96 10/27/18 04:30 111 H 19 100/76 97 10/27/18 04:00 97.9 F 95 21 97/70 97 10/27/18 03:50 96 10/27/18 03:40 100 10/27/18 03:30 96 21 92/65 99 10/27/18 03:00 108 H 17 91/72 99 10/27/18 02:30 124 H 18 108/79 96 12/29/18 02:00 133 H 19 85/66 97 10/27/18 01:30 131 H 18 114/86 97 10/27/18 01:00 112 H 18 97/77 98 10/27/18 00:30 112 H 19 88/71 98 10/27/18 00:01 123 H 18 71/58 97 10/27/18 00:00 98.2 F 121 H 16 84/64 97 10/26/18 23:43 104 H 10/26/18 23:30 100 16 116/85 98 10/26/18 23:29 105 H 10/26/18 23:00 86 18 83/67 98 10/26/18 22:30 98 18 83/67 100 10/26/18 22:00 86 16 88/65 99 10/26/18 21:30 109 H 16 84/66 99 10/26/18 21:00 96 16 97/77 99 10/26/18 20:30 92 16 94/78 100 10/26/18 20:00 80 16 86/69 99 10/26/18 19:53 90 10/26/18 19:42 94 10/26/18 19:30 124 H 14 75/59 97 10/26/18 19:00 116 H 29 H 90/64 95 10/26/18 18:45 116 H 12 104/81 100 10/26/18 18:30 116 H 17 110/90 100 10/26/18 18:15 120 H 28 H 115/105 100 10/26/18 18:00 111 H 12 110/84 100 10/26/18 17:45 112 H 14 119/88 100 10/26/18 17:30 115 H 21 101/75 100 10/26/18 17:15 107 H 16 96/75 100 10/26/18 17:00 95 11 L 93/69 10/26/18 16:45 97 30 H 88/49 10/26/18 16:30 99 20 47/33 10/26/18 16:15 12 73/27 10/26/18 16:00 125 H 12 111/66 10/26/18 15:51 152 H 12 98/75 95 10/26/18 15:31 97.3 F L 101 H 40 H 150/108 90 L Intake and Output 12/10/27/18 10/27/18 22:59 06:59 14:59 Intake Total 2329.687 1711.414 715 Output Total 89 427 225 Balance 2240.687 1284.414 490 Intake: IV 2225 1675 375 Sodium Chloride 0.45% 1, 225 000 ml @ 75 mls/hr IV . [id number] ONE Rx#:[id number] Sodium Chloride 0.9% 1, 2225 675 150 000 ml @ 75 mls/hr IV . [id number] STA Rx#:[id number] Sodium Chloride 0.9% 1, 1000 000 ml @ 999 mls/hr IV . Q1H1M ONE Rx#:[id number] Intake, IV Titration 104.687 36.414 300 Amount Magnesium Sulfate-D5w Pmx 300 1 gm In Dextrose/Water 1 100ml.bag @ 100 mls/hr IVPB Q1H [facility] Rx#: [id number] Norepinephrine 4 mg In 104.687 6.938 Sodium Chloride 0.9% 250 ml @ Titrate IV .Q0M ONE Rx#:[id number] Propofol 1,000 mg In 29.476 Empty Bag 1 bag @ Titrate IV .Q0M [facility] Rx#: [id number] Tube Feeding 40 Output: Urine 89 397 225 Stool 30 Other: Voiding Method Indwelling Catheter Indwelling Catheter Indwelling Catheter Weight 40.823 kg 55.1 kg 55.1 kg GENERAL EXAM: Intubated, sedated. Frail, cachectic comfortable in no apparent distress. HEAD: Normocephalic. EYES: Normal reaction of pupils, equal size. NOSE: Clear with pink turbinates. THROAT: Oral endotracheal and gastric tube secured in place. No erythema or exudates. NECK: No masses, no JVD. Previous tracheostomy site scar. CHEST: No chest wall deformity. Bilateral chest tubes in place. Left sided Dura-Vent in place. Left-sided subcutaneous emphysema. LUNGS: Equal air entry with bilateral end expiratory wheeze, diminished. CVS: S1 and S2 normal with no audible murmur, regular rhythm. ABDOMEN: No hepatosplenomegaly, normal bowel sounds, no guarding or rigidity. SPINE: No scoliosis or deformity SKIN: No rashes CENTRAL NERVOUS SYSTEM: No focal deficits, tone is normal in all 4 extremities. EXTREMITIES: There is no peripheral edema. No clubbing, no cyanosis. Peripheral pulses are intact. Results CBC & Chem 7: 10/27/18 04:20 10/27/18 04:20 Labs: Abnormal Lab Results - Last 24 Hours (Table) 10/26/18 10/26/18 10/26/18 Range/Units 16:28 16:28 16:28 WBC 12.4 H (3.8-10.6) k/uL RBC (3.80-5.40) m/uL Hgb (11.4-16.0) gm/dL Hct (34.0-46.0) % MCHC 29.0 L (31.0-37.0) g/dL Neutrophils # 10.6 H (1.3-7.7) k/uL Lymphocytes # (Manual) (1.0-4.8) k/uL APTT (22.0-30.0) sec ABG pH (7.35-7.45) ABG pCO2 (35-45) mmHg ABG pO2 (83-108) mmHg ABG HCO3 (21-25) mmol/L ABG Total CO2 (19-24) mmol/L ABG O2 Saturation (94-97) % Sodium (137-145) mmol/L Potassium 5.6 H (3.5-5.1) mmol/L Chloride 110 H (98-107) mmol/L BUN 33 H (7-17) mg/dL Glucose 166 H (74-99) mg/dL POC Glucose (mg/dL) (75-99) mg/dL Plasma Lactic Acid Josep (0.7-2.0) mmol/L Calcium (8.4-10.2) mg/dL Phosphorus (2.5-4.5) mg/dL Magnesium (1.6-2.3) mg/dL AST 56 H (14-36) U/L ALT 98 H (9-52) U/L Total Creatine Kinase 20 L (30-135) U/L Total Protein 4.8 L (6.3-8.2) g/dL Albumin 2.7 L (3.5-5.0) g/dL Urine Appearance (Clear) Urine Protein (Negative) Urine Glucose (UA) (Negative) Urine Blood (Negative) Urine WBC (0-5) /hpf Amorphous Sediment (None) /hpf Urine Bacteria (None) /hpf Hyaline Casts (0-2) /lpf Urine Mucus (None) /hpf 10/26/18 10/26/18 10/26/18 Range/Units 16:28 16:28 17:54 WBC (3.8-10.6) k/uL RBC (3.80-5.40) m/uL Hgb (11.4-16.0) gm/dL Hct (34.0-46.0) % MCHC (31.0-37.0) g/dL Neutrophils # (1.3-7.7) k/uL Lymphocytes # (Manual) (1.0-4.8) k/uL APTT 20.0 L (22.0-30.0) sec ABG pH 7.30 L (7.35-7.45) ABG pCO2 62 H (35-45) mmHg ABG pO2 249 H (83-108) mmHg ABG HCO3 30 H (21-25) mmol/L ABG Total CO2 32 H (19-24) mmol/L ABG O2 Saturation 99.7 H (94-97) % Sodium (137-145) mmol/L Potassium (3.5-5.1) mmol/L Chloride (98-107) mmol/L BUN (7-17) mg/dL Glucose (74-99) mg/dL POC Glucose (mg/dL) (75-99) mg/dL Plasma Lactic Acid Josep 4.1 H* (0.7-2.0) mmol/L Calcium (8.4-10.2) mg/dL Phosphorus (2.5-4.5) mg/dL Magnesium (1.6-2.3) mg/dL AST (14-36) U/L ALT (9-52) U/L Total Creatine Kinase (30-135) U/L Total Protein (6.3-8.2) g/dL Albumin (3.5-5.0) g/dL Urine Appearance (Clear) Urine Protein (Negative) Urine Glucose (UA) (Negative) Urine Blood (Negative) Urine WBC (0-5) /hpf Amorphous Sediment (None) /hpf Urine Bacteria (None) /hpf Hyaline Casts (0-2) /lpf Urine Mucus (None) /hpf 10/26/18 10/26/18 10/26/18 Range/Units 19:26 20:45 20:45 WBC (3.8-10.6) k/uL RBC (3.80-5.40) m/uL Hgb (11.4-16.0) gm/dL Hct (34.0-46.0) % MCHC (31.0-37.0) g/dL Neutrophils # (1.3-7.7) k/uL Lymphocytes # (Manual) (1.0-4.8) k/uL APTT (22.0-30.0) sec ABG pH (7.35-7.45) ABG pCO2 (35-45) mmHg ABG pO2 (83-108) mmHg ABG HCO3 (21-25) mmol/L ABG Total CO2 (19-24) mmol/L ABG O2 Saturation (94-97) % Sodium 146 H (137-145) mmol/L Potassium 5.4 H (3.5-5.1) mmol/L Chloride 110 H (98-107) mmol/L BUN 36 H (7-17) mg/dL Glucose 148 H (74-99) mg/dL POC Glucose (mg/dL) 147 H (75-99) mg/dL Plasma Lactic Acid Josep 4.2 H* (0.7-2.0) mmol/L Calcium (8.4-10.2) mg/dL Phosphorus (2.5-4.5) mg/dL Magnesium (1.6-2.3) mg/dL AST (14-36) U/L ALT (9-52) U/L Total Creatine Kinase (30-135) U/L Total Protein (6.3-8.2) g/dL Albumin (3.5-5.0) g/dL Urine Appearance (Clear) Urine Protein (Negative) Urine Glucose (UA) (Negative) Urine Blood (Negative) Urine WBC (0-5) /hpf Amorphous Sediment (None) /hpf Urine Bacteria (None) /hpf Hyaline Casts (0-2) /lpf Urine Mucus (None) /hpf 10/26/18 10/27/18 10/27/18 Range/Units 21:28 04:20 04:20 WBC (3.8-10.6) k/uL RBC 3.40 L (3.80-5.40) m/uL Hgb 10.0 L D (11.4-16.0) gm/dL Hct 32.6 L (34.0-46.0) % MCHC 30.8 L (31.0-37.0) g/dL Neutrophils # (1.3-7.7) k/uL Lymphocytes # (Manual) 0.53 L (1.0-4.8) k/uL APTT (22.0-30.0) sec ABG pH (7.35-7.45) ABG pCO2 (35-45) mmHg ABG pO2 (83-108) mmHg ABG HCO3 (21-25) mmol/L ABG Total CO2 (19-24) mmol/L ABG O2 Saturation (94-97) % Sodium (137-145) mmol/L Potassium (3.5-5.1) mmol/L Chloride 117 H (98-107) mmol/L BUN 24 H (7-17) mg/dL Glucose (74-99) mg/dL POC Glucose (mg/dL) (75-99) mg/dL Plasma Lactic Acid Josep (0.7-2.0) mmol/L Calcium 8.2 L (8.4-10.2) mg/dL Phosphorus 2.4 L (2.5-4.5) mg/dL Magnesium 1.4 L (1.6-2.3) mg/dL AST (14-36) U/L ALT (9-52) U/L Total Creatine Kinase (30-135) U/L Total Protein (6.3-8.2) g/dL Albumin (3.5-5.0) g/dL Urine Appearance Cloudy H (Clear) Urine Protein 2+ H (Negative) Urine Glucose (UA) Trace H (Negative) Urine Blood Small H (Negative) Urine WBC 10 H (0-5) /hpf Amorphous Sediment Rare H (None) /hpf Urine Bacteria Rare H (None) /hpf Hyaline Casts 22 H (0-2) /lpf Urine Mucus Occasional H (None) /hpf 10/27/ Range/Units 05:26 WBC (3.8-10.6) k/uL RBC (3.80-5.40) m/uL Hgb (11.4-16.0) gm/dL Hct (34.0-46.0) % MCHC (31.0-37.0) g/dL Neutrophils # (1.3-7.7) k/uL Lymphocytes # (Manual) (1.0-4.8) k/uL APTT (22.0-30.0) sec ABG pH (7.35-7.45) ABG pCO2 (35-45) mmHg ABG pO2 (83-108) mmHg ABG HCO3 (21-25) mmol/L ABG Total CO2 26 H (19-24) mmol/L ABG O2 Saturation 97.9 H (94-97) % Sodium (137-145) mmol/L Potassium (3.5-5.1) mmol/L Chloride (98-107) mmol/L BUN (7-17) mg/dL Glucose (74-99) mg/dL POC Glucose (mg/dL) (75-99) mg/dL Plasma Lactic Acid Josep (0.7-2.0) mmol/L Calcium (8.4-10.2) mg/dL Phosphorus (2.5-4.5) mg/dL Magnesium (1.6-2.3) mg/dL AST (14-36) U/L ALT (9-52) U/L Total Creatine Kinase (30-135) U/L Total Protein (6.3-8.2) g/dL Albumin (3.5-5.0) g/dL Urine Appearance (Clear) Urine Protein (Negative) Urine Glucose (UA) (Negative) Urine Blood (Negative) Urine WBC (0-5) /hpf Amorphous Sediment (None) /hpf Urine Bacteria (None) /hpf Hyaline Casts (0-2) /lpf Urine Mucus (None) /hpf Microbiology - Last 24 Hours (Table) 10/26/18 21:28 Urine Culture - Preliminary Urine,Catheterized Assessment and Plan Plan: #1 Acute hypoxic respiratory failure secondary to acute exacerbation of severe oxygen dependent chronic obstructive pulmonary disease, complicated by bilateral pneumothorax. Status post bilateral chest tube placements as well as a left door vent placement. Currently intubated and on the mechanical ventilator. Continue sedation and fentanyl. Start Dilaudid 0.5 mg every 3 hours as needed for break through pain. Repeat chest x-ray, and labs in the morning #2 Brief cardiac arrest secondary to above responded to epinephrine. #3 Severe advanced chronic obstructive pulmonary disease and bullous emphysema with underlying FEV1 value 36% of predicted. Both oxygen and steroid dependent. Continue Pulmicort, continue IV Solu-Medrol, #4 History of prolonged respiratory failure requiring intubation mechanical ventilation with subsequent tracheostomy and PEG tube placements and select specialty stable. Subsequently decannulated. #5 Previous history of right-sided pneumothorax 2. #6 Chronic left upper lobe inflammatory opacity. #7 Hyperlipidemia. #8 hypertension. Continue to monitor blood pressure #9 Chronic normocystic anemia. Monitor CBC #10 Fibromyalgia. Continue with fentanyl drip #11 History of anxiety/depression with previous discontinuation of her prescribed medications. #12 GI prophylactics Protonix 40 mg IV daily #13 DVT prophylaxis heparin 5000 units subcu every 8 hours Impression and plan of care have been directed as dictated by the signing physician. Juani Mejia nurse practitioner acting as scribe for signing physician.
[2018-10-27] MEDS: HYDROmorphone 0.5 MG/0.5 ML SYRINGE IVP PRN ×2 (15:28→21:46)
[2018-10-27] MEDS: PROPOFOL 1,000 MG in EMPTY BAG 1 BAG IV SCH ×2 (17:18→23:22)
[2018-10-27] MEDS: HYDROcodone/APAP 10-325MG 1 EACH TAB PO PRN (18:02)
[2018-10-27 18:52] LABS: Glucose,Whole Blood 177 mg/dL (75-99)
[2018-10-27] MEDS: BUDESONIDE 1 MG/2 ML NEBU INHALATION SCH (19:15)
[2018-10-27] MEDS: FORMOTEROL FUMARATE 20 MCG/2 ML NEBU INHALATION SCH (19:15)
[2018-10-27] MEDS: INSULIN ASPART 100 UNIT/ML 1 ML 10 ML VIAL SQ SCH (19:45)
[2018-10-27] MEDS: fentaNYL (PF) 2,500 MCG in SODIUM CHLORIDE 0.9% 200 ML IV SCH (20:06)
[2018-10-28] MEDS: INSULIN ASPART 100 UNIT/ML 1 ML 10 ML VIAL SQ SCH ×4 (00:13→17:55)
[2018-10-28] MEDS: methylPREDNISolone SOD SUCCI 125 MG/2 ML VIAL IV SCH ×4 (00:14→17:04)
[2018-10-28] MEDS: HEPARIN SODIUM,PORCINE 5,000 UNIT/ML 1 ML VIAL SQ SCH ×3 (00:14→17:04)
[2018-10-28 00:17] LABS: Glucose,Whole Blood 156 mg/dL (75-99)
[2018-10-28] MEDS: IPRATROPIUM-ALBUTEROL 3 ML NEB INHALATION SCH ×5 (03:05→18:57)
[2018-10-28] MEDS: HYDROcodone/APAP 10-325MG 1 EACH TAB PO PRN ×3 (04:09→17:55)
[2018-10-28 05:31] LABS: ABG Base Excess 1.3 mmol/L; ABG HCO3 27 mmol/L (21-25); ABG Oxygen Saturation 97.6 % (94-97); ABG PCO2 45 mmHg (35-45); ABG PH 7.38 (7.35-7.45); ABG PO2 88 mmHg (83-108); ABG TCO2 28 mmol/L (19-24)
[2018-10-28 05:58] LABS: Basophils % (A) 0 %; Eosinophils % (A) 1 %; HCT 31.1 % (34.0-46.0); HGB 9.4 gm/dL (11.4-16.0); Hypochromasia Marked; Lymphocytes # (A) 0.3 k/uL (1.0-4.8); Lymphocytes % (A) 4 %; MCH 28.3 pg (25.0-35.0); MCHC 30.1 g/dL (31.0-37.0); Mean Platelet Volume 7.6; Monocytes # (A) 0.2 k/uL (0-1.0); Monocytes % (A) 2 %; Neutrophils # (A) 7.4 k/uL (1.3-7.7); Neutrophils % (A) 93 %; Platelet Count 145 k/uL (150-450); RBC 3.31 m/uL (3.80-5.40); RDW 14.9 % (11.5-15.5); WBC 7.9 k/uL (3.8-10.6)
[2018-10-28 05:59] LABS: Anion Gap 2 mmol/L; Blood Urea Nitrogen 18 mg/dL (7-17); Calcium 8.7 mg/dL (8.4-10.2); Carbon Dioxide 28 mmol/L (22-30); Chloride 108 mmol/L (98-107); Glucose 160 mg/dL (74-99); Magnesium 1.9 mg/dL (1.6-2.3); Phosphorus 2.7 mg/dL (2.5-4.5); Potassium 4.1 mmol/L (3.5-5.1); Sodium 138 mmol/L (137-145)
[2018-10-28] MEDS: HYDROmorphone 0.5 MG/0.5 ML SYRINGE IVP PRN ×2 (06:07→20:05)
[2018-10-28 06:16] LABS: Glucose,Whole Blood 164 mg/dL (75-99)
[2018-10-28] MEDS: BUDESONIDE 1 MG/2 ML NEBU INHALATION SCH ×2 (07:19→18:58)
[2018-10-28] MEDS: FORMOTEROL FUMARATE 20 MCG/2 ML NEBU INHALATION SCH ×2 (07:19→18:57)
[2018-10-28] MEDS: PANTOPRAZOLE 40 MG/10 ML VIAL IV SCH (08:41)
[2018-10-28] MEDS: CHLORHEXIDINE GLUCONATE 15 ML CUP MUCOUS MEM SCH ×2 (08:41→20:00)
--- NOTE | 2018-10-28 08:58 | XR ---
EXAMINATION TYPE: XR chest 1V portable DATE OF EXAM: 10/28/2018 HISTORY: Shortness of breath. COMPARISON: 10/27/2018 TECHNIQUE: Single view of the chest is submitted. FINDINGS: Complications compatible with COPD. Bilateral chest tubes and left pleural catheter in place. Total catheter appears to be changed in pos ition. Impression of left-sided pneumothorax noted. Estimated at 50%. Small persistent right apical pneumothorax noted. There is patchy density left medial lung base. The heart is stable. Hilar and mediastinal structures are within normal limits. Degenerative changes are seen of the dorsal spine. IMPRESSION: 1. There is significant progression of left-sided pneumothorax estimated at 50%. Left upper lobe ple ural catheter appears unchanged in position. Increasing subcutaneous air identified. A [place] level critical message alert has been initiated for Michael Meza via the [employer] Results System on 10/28/2018 8:55 AM. This message alert has been sent to Michael Meza via th e preferences provided by the clinician for the receipt of Radiology Critical Findings. Message ID [id number].
[2018-10-28] MEDS ORDERED: CISATRACURIUM 2 MG/ML 5 ML VIAL IV ONE ×2 (09:32→21:28)
[2018-10-28] MEDS: SODIUM CHLORIDE 0.45% 1,000 ML IV SCH (09:41)
--- NOTE | 2018-10-28 10:12 | XR ---
EXAMINATION TYPE: XR chest 1V portable DATE OF EXAM: 10/28/2018 HISTORY: Follow-up pneumothorax COMPARISON: 10/28/2018 TECHNIQUE: Single view of the chest is submitted. FINDINGS: Left-sided pleural catheter has been removed. There is improvement in left-sided pneumothorax particu larly at the left lung base. Apical component persists and is estimated at 15%. Tiny right apical pne umothorax difficult to exclude. Persistent subcutaneous emphysema. Bilateral chest tubes are in place . Demonstrated are scattered senescent parenchymal change. There is no evidence for focal infiltrate. The heart is stable. Hilar and mediastinal structures are within normal limits. Degenerative changes are seen of the dorsal spine. IMPRESSION: 1. Left-sided pleural catheter has been removed. There is improvement in left-sided pneumothorax par ticularly at the left lung base. Apical component persists and is estimated at 15%.
--- NOTE | 2018-10-28 10:43 | XR ---
EXAMINATION TYPE: XR chest 1V portable DATE OF EXAM: 10/28/2018 HISTORY: Follow-up pneumothorax COMPARISON: 10/28/2018 TECHNIQUE: Single view of the chest is submitted. FINDINGS: Persistent left apical pneumothorax estimated at 15-20%. New Left-sided chest tube placed. Previously noted and chest tubes remain unchanged in position. Exte nsive subcutaneous emphysema noted. Demonstrated are scattered senescent parenchymal change. There is no evidence for focal infiltrate. The heart is stable. Hilar and mediastinal structures are within normal limits. Degenerative changes are seen of the dorsal spine. IMPRESSION: 1. Persistent left apical pneumothorax estimated at 15-20%. New Left-sided chest tube placed. Previously noted and chest tubes remain unchanged in position. Exte nsive subcutaneous emphysema noted.
[2018-10-28] MEDS: PROPOFOL 1,000 MG in EMPTY BAG 1 BAG IV SCH ×3 (11:28→20:59)
[2018-10-28 12:09] LABS: Glucose,Whole Blood 158 mg/dL (75-99)
--- NOTE | 2018-10-28 12:18 | PN ---
PROGRESS NOTE DATE OF SERVICE: 10/28/2018 This is a 58-year-old female who initially presented to the emergency room in respiratory distress. She has a history of severe COPD, hyperlipidemia, hypothyroidism, anemia, fibromyalgia, anxiety/depression. She has an FEV1 that is 36% of predicted with severe bullous emphysema. She apparently was found to be in distress. She was brought in by EMS. She was placed on BiPAP by EMS. When she presented to the emergency room, she was found to be in respiratory failure and the patient was intubated by the ER staff. In addition, she was found to have both left and right pneumothoraces. A Thora-Vent was attempted. It was unsuccessful and bilateral chest tubes was placed by the emergency room physician. Currently, her chest x-ray shows a small right-sided pneumothorax and worsening left-sided pneumothorax. The Thora-Vent was removed. I may need to put a chest tube on that left side. This would be her 2nd chest tube. She remains on the ventilator. She is on the volume assist-control mode rate of 16, tidal volume 350, FiO2 of 35%, PEEP of 5. Blood gases are reasonable with a PO2 of 88, pCO2 of 45, and a pH of 7.38. Her IV is half- normal saline IV at 75 mL an hour, fentanyl 40 mcg/hour, Diprivan 25 mcg/kg per minute. Vital high-protein at 40 with a goal of 50 mL an hour. The patient is currently on the ventilator and sedated. Current vital signs are reviewed. Her temperature is 98.2, heart rate is 117, respiratory rate is 19, blood pressure 120/83, mean 95, saturations are 95% on the ventilator with an FiO2 35%, PEEP of 5. Appears mildly tachypneic. No respiratory distress. Seems relatively common. HEENT examination is grossly unremarkable. There is an orally placed endotracheal tube and NG tube. Neck is supple. Full range of motion. No adenopathy or thyromegaly. There is some subcutaneous emphysema up in the left neck area. Cardiovascular examination reveals regular rhythm rate. Heart rate about 105 beats per minute. It is regular. S1, S2 normal. Heart sounds are distant. Lungs reveal diminished breath sounds on the left. There is subcutaneous emphysema on the left side. There is diffuse inspiratory and expiratory rhonchi. Abdomen is soft. Bowel sounds are heard. Extremities are intact. No cyanosis, clubbing, or edema. Skin without rash. Neurologic examination is difficult to assess. Chest x-ray is reviewed. It is showing a worsening pneumothorax on the left side. Thora-Vent is in place. There is bilateral chest tubes. There is a small pneumothorax on the right. White count 7.9, hemoglobin 9.4, hematocrit 31.1, platelet count 145,000. Sodium 138, potassium 4.1, chloride 108, CO2 of 28, anion gap is 2, BUN and creatinine were 18 and 0.59. Microbiologic studies are thus far negative. MEDICATIONS: Reviewed. She is on Pulmicort and formoterol. She is on DuoNebs. She is also getting Solu-Medrol 60 mg q.6h. She is no longer on norepinephrine. In addition, the patient is on her usual medications for the ICU including GI and DVT prophylaxis. ASSESSMENT: 1. Acute hypoxemic respiratory failure secondary to severe chronic obstructive pulmonary disease and chronic obstructive pulmonary disease exacerbation complicated by bullous emphysema and bilateral pneumothoraces, status post intubation and mechanical ventilation on 10/27/2018 with placement of bilateral chest tubes as well. 2. Brief episode of cardiac arrest which responded to 1 round of epinephrine and chest compressions. 3. Severe/advanced COPD with bullous emphysema an FEV1 that is 36% of predicted. 4. History of oxygen dependency secondary to chronic obstructive pulmonary disease. 5. Previous history of prolonged respiratory failure requiring intubation, mechanical ventilation and subsequent tracheostomy and PEG tube placement. 6. Previous history of right-sided pneumothorax x2. 7. Chronic left upper lobe inflammatory opacity. 8. Hyperlipidemia. 9. Hypothyroidism. 10.Chronic anemia. 11.Fibromyalgia. 12.History of anxiety and depression. PLAN: Stat chest x-ray is ordered. Thora-Vent was discontinued. The worsening pneumothorax on the left is a concern and she may benefit from another chest tube. The patient will not be weaned today. She remains on fentanyl and propofol. She is getting tube feeds with Vital high-protein. We will increase at the goal. Blood gases are reasonable. Medications are reviewed. We may add an antibiotic. Prognosis is guarded. Because of worsening left pneumothorax, a second chest tube will be placed on the left side. Critical care time 35 minutes. MMODL / IJN: [id number] / [facility]
--- NOTE | 2018-10-28 12:20 | P.PN ---
Subjective Progress Note Date: 10/28/18 This is a 58-year-old female who follows with Dr. James as her primary care physician. She has a history of hyperlipidemia, hypothyroidism, anemia, fibromyalgia, anxiety/depression, COPD. She presented to the emergency department with dyspnea. Patient was at home when she experienced rest for distress and called EMS. In route to the hospital she was put on a BiPAP due to minimal responsiveness. Upon arrival to the emergency department her initial vital signs were tachycardic with no measurable pulse oximetry and she was hypotensive. Patient was positive for JVD, 1 view chest was obtained for a positive pneumothorax 50% on the left and a possible pneumothorax on the right. A chest tube was placed on the left and patient had failure to respond to treatment. At which CPR was initiated by ACLS protocol for approximately 1 minute. A central line was placed in the left subclavian vein during the code. Patient was intubated. An repeat chest x-ray showed a pneumothorax on the right and a right-sided 24-Monegasque chest tube was placed. Patient's vital signs improved and she was transported to ICU for continuation of care. Patient presents intubated at this time. She is awake and able to answer questions appropriately. Her current vent setting assist control of 16, tidal volume 350 , FiO2 at 35% and a PEEP of 5. Her morning blood gases reveal a pO2 of 85 pCO2 of 41 pH 7.38. H&H is currently sedated with 30 mics per KG per minute of debridement and, fentanyl drip at 1 MCG per KG per hour. Patient is able to follow commands she is able to move all 4 extremities. Her white count is 7.6, hemoglobin of 10, creatinine 0.6. 10/28: Patient continues to be sedated and intubated. Chest x-ray this morning showed significant progression of left-sided pneumothorax estimated at 50%. Left lower lobe pleural catheter appears unchanged in position. It increased subcutaneous air identified. Subsequently the patient underwent a another chest tube insertion on the left side to help relieve the pneumothorax. Repeat checks x-ray showed a persistent left apical pneumothorax estimated at 15-20%. A new left-sided chest tube place. Patient is receiving tube feedings through NG tube at this time. She continues to be on propofol at 65 mics per KG per minute and fentanyl drip at 1 nury per KG per hour. Patient also is getting Dilaudid and [place] as needed for pain. Her brought in opium to help with abdominal discomfort. Vent settings are unchanged the vent setting assist control 16, tidal volume of 350, FiO2 at 35%, and a PEEP of 5. Patient's urinary output is 50-70 mL per hour. Discussed findings with at the bedside in the plan to continue with sedation and intubation to rest the lungs and we will reassess tomorrow for possible weaning. states that this happened a few months ago where she was on prolonged intubation due to her lungs not recovering. Objective - Vital Signs Vital signs: Vital Signs Temp 98.3 F 10/28/18 08:00 Pulse 97 10/28/18 11:36 Resp 21 10/28/18 11:00 BP 139/92 10/28/18 11:00 Pulse Ox 96 10/28/18 11:00 Intake & Output 10/27/18 10/28/18 10/28/18 18:59 06:59 18:59 Intake Total 1054.283 2005.213 735 Output Total 403 403 162 Balance 5171.311 0379.213 573 Weight 55.1 kg 56.6 kg Intake: IV 825 900 375 Sodium Chloride 0.45% 1, 675 900 375 000 ml @ 75 mls/hr IV . [id number] [facility] Rx#:[id number] Sodium Chloride 0.9% 1, 150 000 ml @ 75 mls/hr IV . [id number] [facility] Rx#:[id number] Intake, IV Titration 461.372 113.213 100 Amount Magnesium Sulfate-D5w Pmx 300 1 gm In Dextrose/Water 1 100ml.bag @ 100 mls/hr IVPB Q1H [facility] Rx#: [id number] Propofol 1,000 mg In 70.524 100 100 Empty Bag 1 bag @ Titrate IV .Q0M [facility] Rx#: [id number] fentaNYL (PF) 2,500 mcg 90.848 13.213 In Sodium Chloride 0.9% 200 ml @ 1 MCG/KG/HR 4.08 mls/hr IV .Q24H [facility] Rx#: [id number] Tube Feeding 140 520 230 Other 30 120 30 Output: Chest Tube Drainage 8 0 Chest Tube Left Mid- 0 Axillary Chest Left Mid-Axillary Chest 8 Urine 395 403 162 Other: Voiding Method Indwelling Catheter Indwelling Catheter Indwelling Catheter - Exam Patient is intubated ET tube in place. - Constitutional General appearance: Present: average body habitus, no acute distress - EENT Eyes: Present: EOMI, PERRLA - Neck Neck: Present: normal ROM - Respiratory Respiratory: bilateral: diminished, rhonchi, wheezing - Cardiovascular Rhythm: regular Heart sounds: normal: S1, S2 Abnormal Heart Sounds: Absent: systolic murmur, diastolic murmur, rub, S3 Gallop , S4 Gallop, click, other - Gastrointestinal General gastrointestinal: Present: distended, normal bowel sounds, soft. Absent : organomegaly, tenderness - Integumentary Integumentary: Present: pale - Labs CBC & Chem 7: 10/28/18 05:13 10/28/18 05:13 Labs: Abnormal Lab Results - Last 24 Hours (Table) 10/27/18 10/28/18 10/28/18 Range/Units 18:40 00:05 05:13 RBC 3.31 L (3.80-5.40) m/uL Hgb 9.4 L (11.4-16.0) gm/dL Hct 31.1 L (34.0-46.0) % MCHC 30.1 L (31.0-37.0) g/dL Plt Count 145 L (150-450) k/uL Lymphocytes # 0.3 L (1.0-4.8) k/uL ABG HCO3 (21-25) mmol/L ABG Total CO2 (19-24) mmol/L ABG O2 Saturation (94-97) % Chloride (98-107) mmol/L BUN (7-17) mg/dL Glucose (74-99) mg/dL POC Glucose (mg/dL) 177 H 156 H (75-99) mg/dL 10/28/18 10/28/18 10/28/18 Range/Units 05:13 05:29 06:04 RBC (3.80-5.40) m/uL Hgb (11.4-16.0) gm/dL Hct (34.0-46.0) % MCHC (31.0-37.0) g/dL Plt Count (150-450) k/uL Lymphocytes # (1.0-4.8) k/uL ABG HCO3 27 H (21-25) mmol/L ABG Total CO2 28 H (19-24) mmol/L ABG O2 Saturation 97.6 H (94-97) % Chloride 108 H (98-107) mmol/L BUN 18 H (7-17) mg/dL Glucose 160 H (74-99) mg/dL POC Glucose (mg/dL) 164 H (75-99) mg/dL Microbiology - Last 24 Hours (Table) 10/28/18 05:30 Sputum Culture - Preliminary Sputum 10/26/18 21:28 Urine Culture - Final Urine,Catheterized 10/26/18 16:28 Blood Culture - Preliminary Blood No Growth after 24 hours Assessment and Plan Plan: #1 Acute hypoxic respiratory failure secondary to acute exacerbation of severe oxygen dependent chronic obstructive pulmonary disease, complicated by bilateral pneumothorax. Status post bilateral chest tube placements as well as a left door vent placement. Currently intubated and on the mechanical ventilator. Continue sedation and fentanyl. Start Dilaudid 0.5 mg every 3 hours as needed for break through pain and [place] as needed. Repeat chest x-ray , and labs in the morning. Patient remains intubated to rest the longus with possible weaning tomorrow. #2 Brief cardiac arrest secondary to above responded to epinephrine. #3 Severe advanced chronic obstructive pulmonary disease and bullous emphysema with underlying FEV1 value 36% of predicted. Both oxygen and steroid dependent. Continue Pulmicort, continue IV Solu-Medrol, #4 History of prolonged respiratory failure requiring intubation mechanical ventilation with subsequent tracheostomy and PEG tube placements and select specialty stable. #5 bilateral pneumothorax. Chest tubes in place. Continuous chest x-ray # 6 Previous history of right-sided pneumothorax 2. #7 Chronic left upper lobe inflammatory opacity. #8 Hyperlipidemia. #9 hypertension. Continue to monitor blood pressure #10 Chronic normocystic anemia. Monitor CBC #11 Fibromyalgia. Continue with fentanyl drip #12 History of anxiety/depression with previous discontinuation of her prescribed medications. #13 GI prophylactics Protonix 40 mg IV daily #14 DVT prophylaxis heparin 5000 units subcu every 8 hours Impression and plan of care have been directed as dictated by the signing physician. Juani Mejia nurse practitioner acting as scribe for signing physician.
[2018-10-28] MEDS ORDERED: OPIUM TINCTURE PO PRN (12:42)
[2018-10-28] MEDS ORDERED: OPIUM PO SCH (13:00)
--- NOTE | 2018-10-28 13:48 | PCN ---
PROCEDURE NOTE PROCEDURE: Left chest tube. PREOP DIAGNOSIS: Worsening left pneumothorax. POSTOP DIAGNOSIS: Worsening left pneumothorax. A #28-Serbian chest tube was placed on the left chest. It was placed at about the left 5th intercostal space. The patient tolerated the procedure well. There was no immediate complications. The chest tube was secured. Vaseline gauze applied around the chest tube. Chest tube was connected to a Pleur-Evac. Again, there was no immediate complication. A followup chest x-ray was ordered. MMODL / IJN: [id number] / [facility]
[2018-10-28 17:36] LABS: Glucose,Whole Blood 171 mg/dL (75-99)
[2018-10-28] MEDS: fentaNYL (PF) 2,500 MCG in SODIUM CHLORIDE 0.9% 200 ML IV SCH (19:55)
--- NOTE | 2018-10-28 21:20 | XR ---
EXAMINATION TYPE: XR chest 1V portable DATE OF EXAM: 10/28/2018 COMPARISON: Today HISTORY: Check tube placement TECHNIQUE: Single frontal view of the chest is obtained. FINDINGS: There are 2 left chest tubes. There is subcutaneous air over the left chest wall. There is a single right chest tube. Endotracheal tube is 4.5 cm from the saima. There are old right-sided he aled rib fractures. There is no heart failure. Pleural line is not definitely seen. IMPRESSION: Bilateral chest tubes. Infiltrate in the left lower lobe. No evidence of tension pneumot horax. No pneumothorax demonstrated. Endotracheal tube in good position. Infiltrate in left lower lob e probably increased compared to exam this morning.
[2018-10-28] MEDS ORDERED: CISATRACURIUM 200 MG in SODIUM CHLORIDE 0.9% 180 ML IV SCH (21:30)
[2018-10-29 00:16] LABS: Glucose,Whole Blood 158 mg/dL (75-99)
[2018-10-29] MEDS: METOPROLOL TARTRATE 5 MG/5 ML VIAL IVP PRN ×2 (00:26→07:00)
[2018-10-29] MEDS: ARTIFICIAL TEARS OINTMENT 3.5 GM TUBE BOTH EYES SCH ×3 (00:33→09:14)
[2018-10-29] MEDS: PROPOFOL 1,000 MG in EMPTY BAG 1 BAG IV SCH ×5 (00:40→18:46)
[2018-10-29] MEDS: SODIUM CHLORIDE 0.45% 1,000 ML IV SCH ×2 (00:41→13:17)
[2018-10-29] MEDS: IPRATROPIUM-ALBUTEROL 3 ML NEB INHALATION SCH ×7 (00:43→23:10)
[2018-10-29] MEDS: HEPARIN SODIUM,PORCINE 5,000 UNIT/ML 1 ML VIAL SQ SCH ×3 (00:44→15:52)
[2018-10-29] MEDS: methylPREDNISolone SOD SUCCI 125 MG/2 ML VIAL IV SCH ×4 (00:45→17:32)
[2018-10-29 01:02] LABS: ALT 147 U/L (9-52); AST 26 U/L (14-36); Albumin 2.8 g/dL (3.5-5.0); Alkaline Phosphatase 65 U/L (38-126); Anion Gap 5 mmol/L; Blood Urea Nitrogen 18 mg/dL (7-17); Calcium 9.3 mg/dL (8.4-10.2); Carbon Dioxide 27 mmol/L (22-30); Chloride 110 mmol/L (98-107); Glucose 172 mg/dL (74-99); Potassium 3.8 mmol/L (3.5-5.1); Sodium 142 mmol/L (137-145); Total Bilirubin 0.3 mg/dL (0.2-1.3); Total Protein 5.1 g/dL (6.3-8.2)
[2018-10-29 01:11] LABS: Creatine Kinase MB 2.2 ng/mL (0.0-2.4)
[2018-10-29] MEDS: INSULIN ASPART 100 UNIT/ML 1 ML 10 ML VIAL SQ SCH ×5 (01:52→23:44)
[2018-10-29 04:33] LABS: ABG Oxygen Saturation 96.8 % (94-97)
[2018-10-29 05:11] LABS: ABG PCO2 40 mmHg (35-45); ABG PH 7.44 (7.35-7.45)
[2018-10-29 05:12] LABS: ABG PO2 120 mmHg (83-108)
[2018-10-29 05:15] LABS: ABG HCO3 27 mmol/L (21-25); ABG TCO2 29 mmol/L (19-24)
[2018-10-29 05:16] LABS: ABG Base Excess 3.2 mmol/L
[2018-10-29 05:51] LABS: Glucose,Whole Blood 189 mg/dL (75-99)
[2018-10-29 06:12] LABS: Basophils % (A) 0 %; Eosinophils # (A) 0.1 k/uL (0-0.7); Eosinophils % (A) 1 %; HGB 9.2 gm/dL (11.4-16.0); Hypochromasia Moderate; Lymphocytes # (A) 0.4 k/uL (1.0-4.8); Lymphocytes % (A) 3 %; MCH 29.6 pg (25.0-35.0); MCHC 31.7 g/dL (31.0-37.0); MCV 93.4 fL (80.0-100.0); Mean Platelet Volume 7.7; Monocytes # (A) 0.2 k/uL (0-1.0); Monocytes % (A) 2 %; Neutrophils # (A) 10.3 k/uL (1.3-7.7); Neutrophils % (A) 94 %; Platelet Count 163 k/uL (150-450); RBC 3.11 m/uL (3.80-5.40); RDW 15.3 % (11.5-15.5); WBC 10.9 k/uL (3.8-10.6)
[2018-10-29 06:32] LABS: Anion Gap 3 mmol/L; Blood Urea Nitrogen 21 mg/dL (7-17); Calcium 8.8 mg/dL (8.4-10.2); Carbon Dioxide 29 mmol/L (22-30); Chloride 108 mmol/L (98-107); Glucose 175 mg/dL (74-99); Magnesium 1.8 mg/dL (1.6-2.3); Phosphorus 2.1 mg/dL (2.5-4.5); Potassium 3.8 mmol/L (3.5-5.1); Sodium 140 mmol/L (137-145)
--- NOTE | 2018-10-29 07:15 | XR ---
EXAMINATION TYPE: XR chest 1V portable DATE OF EXAM: 10/29/2018 COMPARISON: 10/28/2018 HISTORY: Ventilatory dependent respiratory failure. Chest tube placement. TECHNIQUE: Single frontal view of the chest is obtained. FINDINGS: There is redemonstration of 2 left-sided thoracostomy tubes, single right-sided thoracosto my tube, left subclavian central venous catheter, enteric tube, and endotracheal tube all appearing r elatively unchanged position in comparison to the prior. The fenestrated portion of the enteric tube terminates just beyond the gastroesophageal junction. There is a trace right pleural effusion blunting the costophrenic angle. Left basilar airspace diseas e remains unchanged. There is improved aeration of the right lung base. Degree of left chest wall sub cutaneous emphysema is similar. Healing right posterior lateral mid rib fractures are redemonstrated. No sizable residual pneumothorax. Cardia mediastinal silhouette is within normal limits. IMPRESSION: 1. Improved aeration of the right lung base with persistent left basilar opacity that may represent atelectasis, pulmonary contusion or pneumonia. 2. Overall stable lines and tubes with no sizable residual pneumothorax.
[2018-10-29] MEDS: BUDESONIDE 1 MG/2 ML NEBU INHALATION SCH ×2 (07:40→19:11)
[2018-10-29] MEDS: FORMOTEROL FUMARATE 20 MCG/2 ML NEBU INHALATION SCH ×2 (07:41→19:11)
[2018-10-29] MEDS ORDERED: Phosphorus Replacement Protoco 1 EACH MISC MISCELLANE PRN (08:22)
[2018-10-29] MEDS ORDERED: POTASSIUM PHOSPHATE 10 MMOL in SODIUM CHLORIDE 0.9% 250 ML IV ONE (09:00)
[2018-10-29] MEDS: MAGNESIUM SULFATE-D5W PMX 1 GM in DEXTROSE/WATER 1 100ML.BAG IVPB SCH ×2 (09:15→11:08)
[2018-10-29] MEDS: CHLORHEXIDINE GLUCONATE 15 ML CUP MUCOUS MEM SCH ×2 (09:15→20:27)
[2018-10-29] MEDS: PANTOPRAZOLE 40 MG/10 ML VIAL IV SCH (09:15)
--- NOTE | 2018-10-29 11:53 | P.PN ---
Subjective Progress Note Date: 10/29/18 This is a 58-year-old female who follows with Dr. James as her primary care physician. She has a history of hyperlipidemia, hypothyroidism, anemia, fibromyalgia, anxiety/depression, COPD. She presented to the emergency department with dyspnea. Patient was at home when she experienced rest for distress and called EMS. In route to the hospital she was put on a BiPAP due to minimal responsiveness. Upon arrival to the emergency department her initial vital signs were tachycardic with no measurable pulse oximetry and she was hypotensive. Patient was positive for JVD, 1 view chest was obtained for a positive pneumothorax 50% on the left and a possible pneumothorax on the right. A chest tube was placed on the left and patient had failure to respond to treatment. At which CPR was initiated by ACLS protocol for approximately 1 minute. A central line was placed in the left subclavian vein during the code. Patient was intubated. An repeat chest x-ray showed a pneumothorax on the right and a right-sided 24-[place] chest tube was placed. Patient's vital signs improved and she was transported to ICU for continuation of care. Patient presents intubated at this time. She is awake and able to answer questions appropriately. Her current vent setting assist control of 16, tidal volume 350 , FiO2 at 35% and a PEEP of 5. Her morning blood gases reveal a pO2 of 85 pCO2 of 41 pH 7.38. H&H is currently sedated with 30 mics per KG per minute of debridement and, fentanyl drip at 1 MCG per KG per hour. Patient is able to follow commands she is able to move all 4 extremities. Her white count is 7.6, hemoglobin of 10, creatinine 0.6. 10/28: Patient continues to be sedated and intubated. Chest x-ray this morning showed significant progression of left-sided pneumothorax estimated at 50%. Left lower lobe pleural catheter appears unchanged in position. It increased subcutaneous air identified. Subsequently the patient underwent a another chest tube insertion on the left side to help relieve the pneumothorax. Repeat checks x-ray showed a persistent left apical pneumothorax estimated at 15-20%. A new left-sided chest tube place. Patient is receiving tube feedings through NG tube at this time. She continues to be on propofol at 65 mics per KG per minute and fentanyl drip at 1 nury per KG per hour. Patient also is getting Dilaudid and Shipman as needed for pain. Her brought in opium to help with abdominal discomfort. Vent settings are unchanged the vent setting assist control 16, tidal volume of 350, FiO2 at 35%, and a PEEP of 5. Patient's urinary output is 50-70 mL per hour. Discussed findings with at the bedside in the plan to continue with sedation and intubation to rest the lungs and we will reassess tomorrow for possible weaning. states that this happened a few months ago where she was on prolonged intubation due to her lungs not recovering. 10/29: Patient continues to be sedated and intubated. Chest x-ray does show improvement to bilateral pneumothorax and [address]. Patient has been tachycardic overnight with a rate in the 130s. Patient grimaces in pain and withdraws. Patient continue to see tube feedings through NG tube. She continues to be on propofol and fentanyl for sedation. Patient was on Nimbex overnight however that has been DC'd. Vent settings are unchanged with the vent assist control 16, tidal volume 350, FiO2 at 35%, and a PEEP of 5. Patient 's urinary output continues to be 50-70 ML's per hour. Discussed case with pulmonology and consult for trach and PEG tube is in place. Pulmonology does not feel the patient will be successful in weaning. Unable to attain review of systems due to intubation Objective - Vital Signs Vital signs: Vital Signs Temp 98.2 F 10/29/18 08:00 Pulse 129 H 10/29/18 11:00 Resp 22 10/29/18 11:00 BP 121/76 10/29/18 11:00 Pulse Ox 95 10/29/18 11:00 Intake & Output 10/28/18 10/29/18 10/29/18 18:59 06:59 18:59 Intake Total 6716.661 0159.428 969.475 Output Total 580 1277 750 Balance 1290.000 875.428 219.475 Weight 58.6 kg Intake: IV 900 975 436 Magnesium Sulfate-D5w Pmx 100 1 gm In Dextrose/Water 1 100ml.bag @ 100 mls/hr IVPB Q1H [facility] Rx#: [id number] Sodium Chloride 0.45% 1, 900 975 000 ml @ 75 mls/hr IV . [id number] [facility] Rx#:[id number] Sodium Chloride 0.45% 1, 300 000 ml @ 75 mls/hr IV . [id number] [facility] Rx#:[id number] fentaNYL (PF) 2,500 mcg 36 In Sodium Chloride 0.9% 200 ml @ 100 MCG/HR 10 mls/hr IV .Q24H [facility] Rx#: [id number] Intake, IV Titration 200.000 377.428 203.475 Amount Cisatracurium 200 mg In 85.78 Sodium Chloride 0.9% 180 ml @ 2 MCG/KG/MIN 6.79 mls/hr IV .Q24H [facility] Rx#: [id number] Norepinephrine 16 mg In 17.695 Sodium Chloride 0.9% 250 ml @ Titrate IV .Q0M [facility] Rx#:[id number] Propofol 1,000 mg In 200.000 280.256 100 Empty Bag 1 bag @ Titrate IV .Q0M [facility] Rx#: [id number] fentaNYL (PF) 2,500 mcg 97.172 In Sodium Chloride 0.9% 200 ml @ 100 MCG/HR 10 mls/hr IV .Q24H [facility] Rx#: [id number] Tube Feeding 680 800 300 Other 90 30 Output: Chest Tube Drainage 8 42 Chest Tube Left Mid- 8 20 Axillary Chest Chest Tube Right Mid- 0 6 Axillary Chest Left Mid-Axillary Chest 0 16 Urine 572 1235 550 Stool 200 Other: Voiding Method Indwelling Catheter Indwelling Catheter Indwelling Catheter - Exam Patient is intubated ET tube in place. - Constitutional General appearance: Present: average body habitus, mild distress - EENT Eyes: Present: anicteric sclerae, PERRLA - Neck Neck: Absent: lymphadenopathy, rigidity - Respiratory Respiratory: bilateral: rhonchi, wheezing - Cardiovascular Rhythm: regular Heart sounds: normal: S1, S2 Abnormal Heart Sounds: Absent: systolic murmur, diastolic murmur, rub, S3 Gallop , S4 Gallop, click, other - Gastrointestinal General gastrointestinal: Present: normal bowel sounds, soft. Absent: organomegaly, tenderness - Integumentary Integumentary: Present: pale - Labs CBC & Chem 7: 10/29/18 05:40 10/29/18 05:40 Labs: Abnormal Lab Results - Last 24 Hours (Table) 10/28/18 10/28/18 10/29/18 Range/Units 11:58 17:14 00:05 WBC (3.8-10.6) k/uL RBC (3.80-5.40) m/uL Hgb (11.4-16.0) gm/dL Hct (34.0-46.0) % Neutrophils # (1.3-7.7) k/uL Lymphocytes # (1.0-4.8) k/uL ABG pO2 (83-108) mmHg ABG HCO3 (21-25) mmol/L ABG Total CO2 (19-24) mmol/L Chloride (98-107) mmol/L BUN (7-17) mg/dL Glucose (74-99) mg/dL POC Glucose (mg/dL) 158 H 171 H 158 H (75-99) mg/dL Phosphorus (2.5-4.5) mg/dL ALT (9-52) U/L Troponin I (0.000-0.034) ng/mL Total Protein (6.3-8.2) g/dL Albumin (3.5-5.0) g/dL 10/29/18 10/29/18 10/29/18 Range/Units 00:10 00:10 04:29 WBC (3.8-10.6) k/uL RBC (3.80-5.40) m/uL Hgb (11.4-16.0) gm/dL Hct (34.0-46.0) % Neutrophils # (1.3-7.7) k/uL Lymphocytes # (1.0-4.8) k/uL ABG pO2 120 H (83-108) mmHg ABG HCO3 27 H (21-25) mmol/L ABG Total CO2 29 H (19-24) mmol/L Chloride 110 H (98-107) mmol/L BUN 18 H (7-17) mg/dL Glucose 172 H (74-99) mg/dL POC Glucose (mg/dL) (75-99) mg/dL Phosphorus (2.5-4.5) mg/dL ALT 147 H (9-52) U/L Troponin I 0.037 H* (0.000-0.034) ng/mL Total Protein 5.1 L (6.3-8.2) g/dL Albumin 2.8 L (3.5-5.0) g/dL 10/29/18 10/29/1810/29/18 Range/Units 05:40 05:40 05:40 WBC 10.9 H (3.8-10.6) k/uL RBC 3.11 L (3.80-5.40) m/uL Hgb 9.2 L (11.4-16.0) gm/dL Hct 29.0 L (34.0-46.0) % Neutrophils # 10.3 H (1.3-7.7) k/uL Lymphocytes # 0.4 L (1.0-4.8) k/uL ABG pO2 (83-108) mmHg ABG HCO3 (21-25) mmol/L ABG Total CO2 (19-24) mmol/L Chloride 108 H (98-107) mmol/L BUN 21 H (7-17) mg/dL Glucose 175 H (74-99) mg/dL POC Glucose (mg/dL) 189 H (75-99) mg/dL Phosphorus 2.1 L (2.5-4.5) mg/dL ALT (9-52) U/L Troponin I (0.000-0.034) ng/mL Total Protein (6.3-8.2) g/dL Albumin (3.5-5.0) g/dL 10/29/18 Range/Units 05:40 WBC (3.8-10.6) k/uL RBC (3.80-5.40) m/uL Hgb (11.4-16.0) gm/dL Hct (34.0-46.0) % Neutrophils # (1.3-7.7) k/uL Lymphocytes # (1.0-4.8) k/uL ABG pO2 (83-108) mmHg ABG HCO3 (21-25) mmol/L ABG Total CO2 (19-24) mmol/L Chloride (98-107) mmol/L BUN (7-17) mg/dL Glucose (74-99) mg/dL POC Glucose (mg/dL) (75-99) mg/dL Phosphorus (2.5-4.5) mg/dL ALT (9-52) U/L Troponin I 0.040 H* (0.000-0.034) ng/mL Total Protein (6.3-8.2) g/dL Albumin (3.5-5.0) g/dL Microbiology - Last 24 Hours (Table) 10/26/18 16:28 Blood Culture - Preliminary Blood No Growth after 48 hours 10/28/18 05:30 Gram Stain - Preliminary Sputum Sputum Culture - Preliminary Assessment and Plan Plan: #1 Acute hypoxic respiratory failure secondary to acute exacerbation of severe oxygen dependent chronic obstructive pulmonary disease, complicated by bilateral pneumothorax. Status post bilateral chest tube placements as well as a left door vent placement. Currently intubated and on the mechanical ventilator. Continue sedation and fentanyl. Start Dilaudid 0.5 mg every 3 hours as needed for break through pain and Shipman as needed. Repeat chest x-ray , and labs in the morning. Patient remains intubated consult for trach and PEG tube placement completed. Cardiology consult for tachycardia #2 Brief cardiac arrest secondary to above responded to epinephrine. #3 Severe advanced chronic obstructive pulmonary disease and bullous emphysema with underlying FEV1 value 36% of predicted. Both oxygen and steroid dependent. Continue Pulmicort, continue IV Solu-Medrol, #4 History of prolonged respiratory failure requiring intubation mechanical ventilation with subsequent tracheostomy and PEG tube placements and select specialty stable. #5 bilateral pneumothorax. Chest tubes in place. Continuous chest x-ray # 6 Previous history of right-sided pneumothorax 2. #7 Chronic left upper lobe inflammatory opacity. #8 Hyperlipidemia. #9 hypertension. Continue to monitor blood pressure #10 Chronic normocystic anemia. Monitor CBC #11 Fibromyalgia. Continue with fentanyl drip #12 History of anxiety/depression with previous discontinuation of her prescribed medications. #13 GI prophylactics Protonix 40 mg IV daily #14 DVT prophylaxis heparin 5000 units subcu every 8 hours Impression and plan of care have been directed as dictated by the signing physician. Juani Mejia nurse practitioner acting as scribe for signing physician.
[2018-10-29] MEDS: HYDROmorphone 0.5 MG/0.5 ML SYRINGE IVP PRN ×2 (11:59→20:24)
[2018-10-29 12:02] LABS: Glucose,Whole Blood 193 mg/dL (75-99)
--- NOTE | 2018-10-29 13:09 | P.GSCN ---
History of Present Illness Consult date: 10/29/18 Reason for Consult: Need for tracheostomy and percutaneous endoscopic gastrostomy tube Requesting physician: Magali Cintron History of present illness: This is a 58-year-old chronically ill female patient who follows with Dr. Heber James on an outpatient basis. She is a previous medical history of COPD with FEV1 36% predicted, home oxygen use, fibromyalgia, GERD, GI bleed, hyperlipidemia, hypertension, osteoarthritis, pneumonia, multiple pneumothoraces , thoravent placement 2, Crohn's disease with multiple bowel surgeries, and previous tobacco dependence. She was here in June with failure to wean from the ventilator, tracheostomy and PEG tube placement was completed at that time and she was sent to [facility] with subsequent decannulation of her tracheostomy. She presented to [facility] emergency room on 10/26/2018 via EMS for unresponsiveness. She was immediately intubated. She was found to have a left-sided pneumothorax and the chest tube was placed. Subsequently she went into cardiac arrest with return of spontaneous circulation after 1 round of CPR. Further she was discovered to have a right-sided pneumothorax requiring placement of another chest tube. She was admitted to the intensive care unit for continued critical care treatment. Her lungs have not recovered despite treatment with IV Solu-Medrol as well as inhaled bronchodilators and steroids. A second left-sided chest tube had to be placed yesterday. Both left pleural chest tubes have continuous air leaks at this time. Chest x-ray this morning reveals no residual pneumothorax. Due to her extensive COPD history, as well as history of tracheostomy and bullous lung disease the patient is felt to be too high risk to try to wean and extubate. Dr. Petersen was consulted for placement of repeat tracheostomy and PEG tube. Review of Systems ROS unobtainable: due to endotracheal tube Past Medical History Past Medical History: COPD, Fibromyalgia, GERD/Reflux, GI Bleed, Hyperlipidemia , Hypertension, Osteoarthritis (OA), Pneumonia, Syncope Additional Past Medical History / Comment(s): in past took meds for high blood pressure.COPD-02 3 liters n/c atc, crohn's, bowel obstructions, lower GI bleeds , hiatal hernia, osteoporosis, arthritis multiple joints, seasonal allergies, right-sided pneumothorax x2; ventilator 07/24/18 - transfer from [facility] r/t leelee History of Any Multi-Drug Resistant Organisms: None Reported Past Surgical History: Breast Surgery, Cholecystectomy, Hernia Repair, Hysterectomy, Orthopedic Surgery Additional Past Surgical History / Comment(s): Multiple bowel surgeries including total colectomy/ileostomy, ileostomy moved/repaired, R tube and R ovary removed due tectopic , total hysterectomy, leep procedure, laparoscopy for endometriosis, L breast lumpectomy-benign, r breast core bx- benign, EGD/colonoscopies. Right-sided Thora-vent placement May 09 and May 19. Eye surgery bilateral,arthroscopic knee surgery on he right due to ACL and Maniscal tear. past ventilation,( trach and peg tube-since removed) Past Anesthesia/Blood Transfusion Reactions: No Reported Reaction Smoking Status: Former smoker - Past Family History Mother Family Medical History: Cancer, COPD, Hypertension Additional Family Medical History / Comment(s): Mother at age 83 from COPD and osteoarthritis and had skin cancer. Father Family Medical History: Cancer, CVA/TIA, Dementia, Diabetes Mellitus Additional Family Medical History / Comment(s): Father is 90yrs old. Brother(s) Family Medical History: Cancer Additional Family Medical History / Comment(s): Patient had 5 brothers and one of them from melanoma. Sister(s) History Unknown: Yes Family Medical History: No Reported History Additional Family Medical History / Comment(s): Patient has one sister. Patient has no kids. Medications and Allergies Home Medications Medication Instructions Recorded Confirmed Type Adalimumab [Humira Pen] 40 mg SQ TU 06/21/14 10/26/18 History Latanoprost Ophth [Xalatan 0.005%] 1 drop BOTH EYES DAILY 05/21/17 10/26/18 History Cyanocobalamin [Vitamin B-12 1,000 mcg SQ Q30D 07/24/18 10/26/18 History Injection] Dicyclomine [Bentyl] 10 mg PO TID 07/24/18 10/26/18 History Ondansetron [Zofran] 4 mg PO Q6H PRN 07/24/18 10/26/18 History Albuterol Nebulized [Ventolin 2.5 mg INHALATION RT-TID PRN 09/09/18 10/26/18 History Nebulized] Ipratropium-Albuterol Nebulize 3 ml INHALATION RT-Q8H 09/09/18 10/26/18 History [Duoneb 0.5 mg-3 mg/3 ml Soln] Loperamide [Imodium] 2 mg PO Q6H PRN 09/09/18 10/26/18 History Budesonide 1 mg INHALATION RT-BID 09/27/18 10/26/18 History Gabapentin [Neurontin] 300 mg PO TID 09/27/18 10/26/18 History HYDROcodone/APAP 10-325MG [[place] 1 tab PO Q4H PRN 09/27/18 10/26/18 History 10-325] Nicotine Polacrilex [Nicorette] 4 mg BUCCAL Q6H PRN 09/27/18 10/26/18 History Opium Tincture 10mg/1ml 20 mg PO QID PRN 09/27/18 10/26/18 History Colchicine [Colcrys] 0.6 mg PO DAILY #21 each 10/16/18 10/26/18 Rx DULoxetine HCL [Cymbalta] 30 mg PO BID #60 capsule.dr 10/16/18 10/26/18 Rx Furosemide [Lasix] 20 mg PO DAILY #0 10/16/18 10/26/18 Rx LORazepam [Ativan] 0.25 mg PO TID 3 Days #5 tab 10/16/18 10/26/18 Rx Melatonin 15 mg PO HS tablet 10/16/18 10/26/18 Rx Metoprolol Tartrate [Lopressor] 50 mg PO BID #60 tab 10/16/18 10/26/18 Rx Nystatin 100,000 Unit/ml Susp 500,000 unit PO QID #120 ml 10/16/18 10/26/18 Rx [Mycostatin Oral Susp] Potassium Chloride ER [K-Dur 20] 10 meq PO DAILY #0 10/16/18 10/26/18 Rx Verapamil [Isoptin] 40 mg PO TID #90 tab 10/16/18 10/26/18 Rx busPIRone HCl [Buspar] 10 mg PO TID #90 tab 10/16/18 10/26/18 Rx predniSONE See Taper PO DIRECTED 10/26/18 10/26/18 History Allergies Allergy/AdvReac Type Severity Reaction Status Date / Time Iodinated Contrast- Oral and Allergy Anaphylaxis Verified 10/26/18 15:49 IV Dye pregabalin [From Lyrica] Allergy Unknown Verified 10/26/18 15:49 rofecoxib [From Vioxx] Allergy Unknown Verified 10/26/18 15:49 Sulfa (Sulfonamide Allergy Rash/Hives Verified 10/26/18 15:49 Antibiotics) aspirin AdvReac Internal Verified 10/26/18 15:49 Bleeding timolol [Timolol] AdvReac Nausea & Verified 10/26/18 15:49 Vomiting Surgical - Exam Vital Signs Temp Pulse Resp BP Pulse Ox 97.3 F L 101 H 40 H 150/108 90 L 10/26/18 15:31 10/26/18 15:31 10/26/18 15:31 10/26/18 15:31 10/26/18 15:31 - General well developed, well nourished, no distress, chronically ill - Eyes Pupils are pinpoint at this time as patient was just given IV Dilaudid. - Neck no masses, no bruits, trachea midline - Respiratory Lungs sounds diminished bilaterally, inspiratory and expiratory wheezes present in the left lung hunter. Respirations even, nonlabored on mechanical ventilation. Current ventilator settings assist control mode, FiO2 35%, tidal volume 350, respiratory rate 16, PEEP 5. ABGs this morning 7.4/40/120/27/96%/ 3.2 on 35% FiO2. 7.0 ET tube present, 19 at the lip. Right pleural chest tube to continuous wall suction, minimal serosanguineous fluid present, no air leak present. 2 left pleural chest tubes present to continuous wall suction, minimal serosanguineous drainage present, positive air leaks in both chest tubes. - Cardiovascular S1, S2 present. Tachycardic but regular rate and rhythm, sinus tach on telemetry. Palpable peripheral pulses bilaterally. No edema present. No calf pain or tenderness noted. SCDs present. Left subclavian triple-lumen central line present. - Abdomen Tube feeding infusion at 50 mL per hour. Abdomen: soft, non tender, bowel sounds - Genitourinary Ribera present draining clear, yellow urine. - Rectum Deferred - Integumentary no rash, no growths - Neurologic Withdraws to painful stimuli. Currently sedated on propofol and fentanyl IV. Results - Labs 10/29/18 05:40 10/29/18 05:40 Abnormal Lab Results - Last 24 Hours (Table) 10/28/18 10/29/18 10/29/18 Range/Units 17:14 00:05 00:10 WBC (3.8-10.6) k/uL RBC (3.80-5.40) m/uL Hgb (11.4-16.0) gm/dL Hct (34.0-46.0) % Neutrophils # (1.3-7.7) k/uL Lymphocytes # (1.0-4.8) k/uL ABG pO2 (83-108) mmHg ABG HCO3 (21-25) mmol/L ABG Total CO2 (19-24) mmol/L Chloride 110 H (98-107) mmol/L BUN 18 H (7-17) mg/dL Glucose 172 H (74-99) mg/dL POC Glucose (mg/dL) 171 H 158 H (75-99) mg/dL Phosphorus (2.5-4.5) mg/dL ALT 147 H (9-52) U/L Troponin I (0.000-0.034) ng/mL Total Protein 5.1 L (6.3-8.2) g/dL Albumin 2.8 L (3.5-5.0) g/dL 10/29/18 10/29/18 10/29/18 Range/Units 00:10 04:29 05:40 WBC 10.9 H (3.8-10.6) k/uL RBC 3.11 L (3.80-5.40) m/uL Hgb 9.2 L (11.4-16.0) gm/dL Hct 29.0 L (34.0-46.0) % Neutrophils # 10.3 H (1.3-7.7) k/uL Lymphocytes # 0.4 L (1.0-4.8) k/uL ABG pO2 120 H (83-108) mmHg ABG HCO3 27 H (21-25) mmol/L ABG Total CO2 29 H (19-24) mmol/L Chloride (98-107) mmol/L BUN (7-17) mg/dL Glucose (74-99) mg/dL POC Glucose (mg/dL) (75-99) mg/dL Phosphorus (2.5-4.5) mg/dL ALT (9-52) U/L Troponin I 0.037 H* (0.000-0.034) ng/mL Total Protein (6.3-8.2) g/dL Albumin (3.5-5.0) g/dL 10/29/18 10/29/18 10/29/18 Range/Units 05:40 05:40 05:40 WBC (3.8-10.6) k/uL RBC (3.80-5.40) m/uL Hgb (11.4-16.0) gm/dL Hct (34.0-46.0) % Neutrophils # (1.3-7.7) k/uL Lymphocytes # (1.0-4.8) k/uL ABG pO2 (83-108) mmHg ABG HCO3 (21-25) mmol/L ABG Total CO2 (19-24) mmol/L Chloride 108 H (98-107) mmol/L BUN 21 H (7-17) mg/dL Glucose 175 H (74-99) mg/dL POC Glucose (mg/dL) 189 H (75-99) mg/dL Phosphorus 2.1 L (2.5-4.5) mg/dL ALT (9-52) U/L Troponin I 0.040 H* (0.000-0.034) ng/mL Total Protein (6.3-8.2) g/dL Albumin (3.5-5.0) g/dL 10/29/18 Range/Units 11:51 WBC (3.8-10.6) k/uL RBC (3.80-5.40) m/uL Hgb (11.4-16.0) gm/dL Hct (34.0-46.0) % Neutrophils # (1.3-7.7) k/uL Lymphocytes # (1.0-4.8) k/uL ABG pO2 (83-108) mmHg ABG HCO3 (21-25) mmol/L ABG Total CO2 (19-24) mmol/L Chloride (98-107) mmol/L BUN (7-17) mg/dL Glucose (74-99) mg/dL POC Glucose (mg/dL) 193 H (75-99) mg/dL Phosphorus (2.5-4.5) mg/dL ALT (9-52) U/L Troponin I (0.000-0.034) ng/mL Total Protein (6.3-8.2) g/dL Albumin (3.5-5.0) g/dL Microbiology - Last 24 Hours (Table) 10/26/18 16:28 Blood Culture - Preliminary Blood No Growth after 48 hours 10/28/18 05:30 Gram Stain - Preliminary Sputum Sputum Culture - Preliminary Diabetes panel 10/29/18 10/29/18 Range/Units 00:10 05:40 Sodium 142 140 (137-145) mmol/L Potassium 3.8 3.8 (3.5-5.1) mmol/L Chloride 110 H 108 H (98-107) mmol/L Carbon Dioxide 27 29 (22-30) mmol/L BUN 18 H 21 H (7-17) mg/dL Creatinine 0.58 0.64 (0.52-1.04) mg/dL Glucose 172 H 175 H (74-99) mg/dL Calcium 9.3 8.8 (8.4-10.2) mg/dL AST 26 (14-36) U/L ALT 147 H (9-52) U/L Alkaline Phosphatase 65 (38-126) U/L Total Protein 5.1 L (6.3-8.2) g/dL Albumin 2.8 L (3.5-5.0) g/dL Calcium panel 10/29/18 10/29/18 Range/Units 00:10 05:40 Calcium 9.3 8.8 (8.4-10.2) mg/dL Phosphorus 2.1 L (2.5-4.5) mg/dL Albumin 2.8 L (3.5-5.0) g/dL Pituitary panel 10/29/18 10/29/18 Range/Units 00:10 05:40 Sodium 142 140 (137-145) mmol/L Potassium 3.8 3.8 (3.5-5.1) mmol/L Chloride 110 H 108 H (98-107) mmol/L Carbon Dioxide 27 29 (22-30) mmol/L BUN 18 H 21 H (7-17) mg/dL Creatinine 0.58 0.64 (0.52-1.04) mg/dL Glucose 172 H 175 H (74-99) mg/dL Calcium 9.3 8.8 (8.4-10.2) mg/dL Adrenal panel 10/29/18 10/29/18 Range/Units 00:10 05:40 Sodium 142 140 (137-145) mmol/L Potassium 3.8 3.8 (3.5-5.1) mmol/L Chloride 110 H 108 H (98-107) mmol/L Carbon Dioxide 27 29 (22-30) mmol/L BUN 18 H 21 H (7-17) mg/dL Creatinine 0.58 0.64 (0.52-1.04) mg/dL Glucose 172 H 175 H (74-99) mg/dL Calcium 9.3 8.8 (8.4-10.2) mg/dL Total Bilirubin 0.3 (0.2-1.3) mg/dL AST 26 (14-36) U/L ALT 147 H (9-52) U/L Alkaline Phosphatase 65 (38-126) U/L Total Protein 5.1 L (6.3-8.2) g/dL Albumin 2.8 L (3.5-5.0) g/dL - Imaging Chest x-ray: report reviewed, image reviewed EKG: image reviewed Assessment and Plan (1) Failure to wean from mechanical ventilation Current Visit: Yes Status: Acute Code(s): Z99.11 - DEPENDENCE ON RESPIRATOR [VENTILATOR] STATUS SNOMED Code(s): 561334259 (2) Acute exacerbation of chronic obstructive airways disease Current Visit: Yes Status: Acute Code(s): J44.1 - CHRONIC OBSTRUCTIVE PULMONARY DISEASE W (ACUTE) EXACERBATION SNOMED Code(s): 750749400 (3) Bilateral pneumothorax Current Visit: Yes Status: Acute Code(s): J93.9 - PNEUMOTHORAX, UNSPECIFIED SNOMED Code(s): 50255089 Plan: The patient was seen and examined at the bedside. Chart/diagnostics were reviewed. The case was discussed in detail with Dr. Petersen. We will plan for tracheostomy and percutaneous endoscopic gastrostomy tube placement on Monday or depending on OR availability. We will discuss with the patient's who is next of kin. Continued medical management of other comorbid conditions per primary care service and pulmonology. Thank you Dr. Cintron for this consult. We look forward to working with you in the care of your patient. Time with Patient: Greater than 30
--- NOTE | 2018-10-29 13:21 | P.PN ---
Subjective Progress Note Date: 10/29/18 Principal diagnosis: Acute hypoxic respiratory failure secondary to COPD and bilateral pneumothoraces. This is a 58-year-old female patient who follows with Dr. James as her primary care physician. She has a history of hyperlipidemia, hypothyroidism, anemia, fibromyalgia, anxiety/depression. Chest has a history of severe oxygen- dependent bullous emphysema/COPD with FEV1 value of 36% of predicted and a chronic left upper lobe inflammatory opacity that was nonmalignant. She has a history of prolonged respiratory failure requiring mechanical ventilation and was subsequently tr[facility]. She had since been decannulated. She's had multiple admissions for COPD exacerbations most recently discharged from here on 10/16/2018. She was brought in by EMS to the emergency room yesterday with severe respiratory distress requiring initially BiPAP support. She was found to have bilateral pneumothorax and chest tubes were placed as well as a left thoravent. She had a brief cardiac arrest requiring epinephrine. She was subsequently intubated and placed on mechanical ventilator and transferred here to the intensive care unit. She is seen today in consultation with current vent settings assist- control of 16, tidal volume 350, FiO2 of 35% and a PEEP of 5. Morning blood gases reveal a P O2 of 85, pCO2 41, pH 7.38. Her measured airway resistance is currently 8.8. She is sedated on to prevent at 30 mcg/kg/m., Fentanyl drip at 1 mcg/kg per hour, 1.9 normal saline at 75 ML's per hour. She does follow simple commands. She is moving all fours. Cultures are pending. White count 7.6. Hemoglobin 10.0. Creatinine 0.69. She's been initiated and DuoNeb inhalations. Patient was reevaluated today on 10/29/2018, remains in the ICU on mechanical ventilation. Patient has been on same ventilator settings, tidal volume of 350 assist-control rate of 16 FiO2 of 35% and PEEP of 5. Patient remains on fentanyl drip, she is also on propofol drip, and both are basically maximized. Last night Dr. Meza placed the patient on Nimbex drip. However I have discontinued the Nimbex drip today, and I will try to control her agitation with fentanyl and propofol only. Patient continues to have left-sided chest tubes, and 1 right sided chest tube, all of them are showing a bit of a leak. Her ABG showed a pO2 of 120 pCO2 of 40 0 pH of 7.44. Basic metabolic profile is normal, WBC count is 10.9 hemoglobin is 9.2. Chest x-ray did show improvement in aeration of the right lung base with persistent left basilar opacity may represent mostly atelectasis or possibly pneumonia. No sizable pneumothorax is noted on both sides. Patient remains on multiple bronchodilators, and on Solu-Medrol. Today I discussed with the nurses and with the admitting physician that it would be best to consider tracheostomy and PEG tube placement since the patient is going to be almost extremely difficult to wean successfully. She had a similar episode in the past, and she did require trache[facility] and [facility]. Objective - Vital Signs Vital signs: Vital Signs Temp 98.6 F 10/29/18 12:00 Pulse 111 H 10/29/18 12:00 Resp 18 10/29/18 12:00 BP 95/57 10/29/18 12:00 Pulse Ox 96 10/29/18 12:00 Intake & Output 10/28/18 10/29/18 10/29/18 18:59 06:59 18:59 Intake Total 8789.135 5862.428 1234.475 Output Total 580 1277 800 Balance 1290.000 875.428 434.475 Weight 58.6 kg Intake: IV 900 975 521 Magnesium Sulfate-D5w Pmx 100 1 gm In Dextrose/Water 1 100ml.bag @ 100 mls/hr IVPB Q1H [facility] Rx#: [id number] Sodium Chloride 0.45% 1, 900 975 000 ml @ 75 mls/hr IV . [id number] [facility] Rx#:[id number] Sodium Chloride 0.45% 1, 375 000 ml @ 75 mls/hr IV . [id number] [facility] Rx#:[id number] fentaNYL (PF) 2,500 mcg 46 In Sodium Chloride 0.9% 200 ml @ 100 MCG/HR 10 mls/hr IV .Q24H [facility] Rx#: [id number] Intake, IV Titration 200.000 377.428 203.475 Amount Cisatracurium 200 mg In 85.78 Sodium Chloride 0.9% 180 ml @ 2 MCG/KG/MIN 6.79 mls/hr IV .Q24H [facility] Rx#: [id number] Norepinephrine 16 mg In 17.695 Sodium Chloride 0.9% 250 ml @ Titrate IV .Q0M [facility] Rx#:[id number] Propofol 1,000 mg In 200.000 280.256 100 Empty Bag 1 bag @ Titrate IV .Q0M [facility] Rx#: [id number] fentaNYL (PF) 2,500 mcg 97.172 In Sodium Chloride 0.9% 200 ml @ 100 MCG/HR 10 mls/hr IV .Q24H [facility] Rx#: [id number] Tube Feeding 680 800 450 Other 90 60 Output: Chest Tube Drainage 8 42 Chest Tube Left Mid- 8 20 Axillary Chest Chest Tube Right Mid- 0 6 Axillary Chest Left Mid-Axillary Chest 0 16 Urine 572 1235 600 Stool 200 Other: Voiding Method Indwelling Catheter Indwelling Catheter Indwelling Catheter - Exam GENERAL EXAM: Revealed a 58-year-old female, on mechanical ventilation, sedated , in no distress. HEAD: Normocephalic. EYES: Normal reaction of pupils, equal size. NOSE: Clear with pink turbinates. THROAT: Oral endotracheal and gastric tube secured in place. No erythema or exudates. NECK: No masses, no JVD. Previous tracheostomy site scar. CHEST: No chest wall deformity. Bilateral chest tubes in place. 2 left-sided chest tubes were noted and 1 right-sided chest tube was also noted. LUNGS: Equal air entry with bilateral end expiratory wheeze, diminished. CVS: S1 and S2 normal with no audible murmur, regular rhythm. ABDOMEN: No hepatosplenomegaly, normal bowel sounds, no guarding or rigidity. SPINE: No scoliosis or deformity SKIN: No rashes CENTRAL NERVOUS SYSTEM: Sedated, presently on propofol and fentanyl drip. She was also on Nimbex which I have discontinued EXTREMITIES: There is no peripheral edema. No clubbing, no cyanosis. Peripheral pulses are intact. - Labs CBC & Chem 7: 10/29/18 05:40 10/29/18 05:40 Labs: Abnormal Lab Results - Last 24 Hours (Table) 10/28/18 10/29/18 10/29/18 Range/Units 17:14 00:05 00:10 WBC (3.8-10.6) k/uL RBC (3.80-5.40) m/uL Hgb (11.4-16.0) gm/dL Hct (34.0-46.0) % Neutrophils # (1.3-7.7) k/uL Lymphocytes # (1.0-4.8) k/uL ABG pO2 (83-108) mmHg ABG HCO3 (21-25) mmol/L ABG Total CO2 (19-24) mmol/L Chloride 110 H (98-107) mmol/L BUN 18 H (7-17) mg/dL Glucose 172 H (74-99) mg/dL POC Glucose (mg/dL) 171 H 158 H (75-99) mg/dL Phosphorus (2.5-4.5) mg/dL ALT 147 H (9-52) U/L Troponin I (0.000-0.034) ng/mL Total Protein 5.1 L (6.3-8.2) g/dL Albumin 2.8 L (3.5-5.0) g/dL 10/29/18 10/29/18 10/29/18 Range/Units 00:10 04:29 05:40 WBC 10.9 H (3.8-10.6) k/uL RBC 3.11 L (3.80-5.40) m/uL Hgb 9.2 L (11.4-16.0) gm/dL Hct 29.0 L (34.0-46.0) % Neutrophils # 10.3 H (1.3-7.7) k/uL Lymphocytes # 0.4 L (1.0-4.8) k/uL ABG pO2 120 H (83-108) mmHg ABG HCO3 27 H (21-25) mmol/L ABG Total CO2 29 H (19-24) mmol/L Chloride (98-107) mmol/L BUN (7-17) mg/dL Glucose (74-99) mg/dL POC Glucose (mg/dL) (75-99) mg/dL Phosphorus (2.5-4.5) mg/dL ALT (9-52) U/L Troponin I 0.037 H* (0.000-0.034) ng/mL Total Protein (6.3-8.2) g/dL Albumin (3.5-5.0) g/dL 10/29/18 10/29/18 10/29/18 Range/Units 05:40 05:40 05:40 WBC (3.8-10.6) k/uL RBC (3.80-5.40) m/uL Hgb (11.4-16.0) gm/dL Hct (34.0-46.0) % Neutrophils # (1.3-7.7) k/uL Lymphocytes # (1.0-4.8) k/uL ABG pO2 (83-108) mmHg ABG HCO3 (21-25) mmol/L ABG Total CO2 (19-24) mmol/L Chloride 108 H (98-107) mmol/L BUN 21 H (7-17) mg/dL Glucose 175 H (74-99) mg/dL POC Glucose (mg/dL) 189 H (75-99) mg/dL Phosphorus 2.1 L (2.5-4.5) mg/dL ALT (9-52) U/L Troponin I 0.040 H* (0.000-0.034) ng/mL Total Protein (6.3-8.2) g/dL Albumin (3.5-5.0) g/dL 10/29/18 Range/Units 11:51 WBC (3.8-10.6) k/uL RBC (3.80-5.40) m/uL Hgb (11.4-16.0) gm/dL Hct (34.0-46.0) % Neutrophils # (1.3-7.7) k/uL Lymphocytes # (1.0-4.8) k/uL ABG pO2 (83-108) mmHg ABG HCO3 (21-25) mmol/L ABG Total CO2 (19-24) mmol/L Chloride (98-107) mmol/L BUN (7-17) mg/dL Glucose (74-99) mg/dL POC Glucose (mg/dL) 193 H (75-99) mg/dL Phosphorus (2.5-4.5) mg/dL ALT (9-52) U/L Troponin I (0.000-0.034) ng/mL Total Protein (6.3-8.2) g/dL Albumin (3.5-5.0) g/dL Microbiology - Last 24 Hours (Table) 10/26/18 16:28 Blood Culture - Preliminary Blood No Growth after 48 hours 10/28/18 05:30 Gram Stain - Preliminary Sputum Sputum Culture - Preliminary Assessment and Plan Assessment: #1 Acute hypoxic respiratory failure secondary to acute exacerbation of severe oxygen dependent chronic obstructive pulmonary disease, complicated by bilateral pneumothorax. Status post 3 chest tube placements to on the left and one on the right. #2 Brief cardiac arrest secondary to above responded to epinephrine. #3 Severe advanced chronic obstructive pulmonary disease and bullous emphysema with underlying FEV1 value 36% of predicted. Both oxygen and steroid dependent. #4 History of prolonged respiratory failure requiring intubation mechanical ventilation with subsequent tracheostomy and PEG tube placements and [facility]. Subsequently decannulated. #5 Previous history of right-sided pneumothorax 2. #6 Chronic left upper lobe inflammatory opacity. #7 Hyperlipidemia. #8 Hypothyroidism. #9 Chronic normocystic anemia. #10 Fibromyalgia. #11 History of anxiety/depression with previous discontinuation of her prescribed medications. Plan: Continue present supportive care measures, continue ventilatory support, hemodynamic support, nutritional support, antibiotics, bronchodilators, GI and DVT prophylaxis, will initiate a surgical consultation for tracheostomy and PEG tube placement. It is almost impossible to wean this patient successfully without a trach in place. Hence I have initiated a surgical consultation to Dr. Petersen. Prognosis is extremely poor and guarded, will continue to follow. Critical care time is 40 minutes Time with Patient: Greater than 30
--- NOTE | 2018-10-29 14:29 | P.CRDCN ---
History of Present Illness History of present illness: This is Dr. Garcia dictating a consult on this patient The patient was interviewed and examined by me IMPRESSION / ASSESSMENT: Sinus tachycardia upon admission Sinus tachycardia while intubated possibly related to pain and reduced dose of intravenous sedatives Low blood pressure borderline troponins secondary to hypoxemia and hypotension and does not present with acute myocardial infarction PLAN: Treatment of her underlying conditions 2-D echo and Doppler study HPI Patient presented with respiratory distress and was found to have a left-sided pneumothorax. CPR was initiated in the ER since she had a cardiopulmonary arrest despite chest tube placement. During the course implant was placed and a right-sided pneumothorax was noted. Now she has chest tubes on both sides blood pressure is low she is intubated at this time ROS: No fever chills or rigors, no cough, phlegm or expectoration, no nausea, vomiting or diarrhea, no hematuria, dysuria, no musculoskeletal complaints, no strokes or seizures, no skin lesions. EXAMINATION Subcutaneous emphysema Reduced breath sounds Soft heart sounds difficult to auscultate REVIEW OF LABS, ECG ECG shows sinus tachycardia Past Medical History Past Medical History: COPD, Fibromyalgia, GERD/Reflux, GI Bleed, Hyperlipidemia , Hypertension, Osteoarthritis (OA), Pneumonia, Syncope Additional Past Medical History / Comment(s): in past took meds for high blood pressure.COPD-02 3 liters n/c atc, crohn's, bowel obstructions, lower GI bleeds , hiatal hernia, osteoporosis, arthritis multiple joints, seasonal allergies, right-sided pneumothorax x2; ventilator 07/24/18 - transfer from [facility] r/t bollas History of Any Multi-Drug Resistant Organisms: None Reported Past Surgical History: Breast Surgery, Cholecystectomy, Hernia Repair, Hysterectomy, Orthopedic Surgery Additional Past Surgical History / Comment(s): Multiple bowel surgeries including total colectomy/ileostomy, ileostomy moved/repaired, R tube and R ovary removed due tectopic , total hysterectomy, leep procedure, laparoscopy for endometriosis, L breast lumpectomy-benign, r breast core bx- benign, EGD/colonoscopies. Right-sided Thora-vent placement May 09 and May 19. Eye surgery bilateral,arthroscopic knee surgery on he right due to ACL and Maniscal tear. past ventilation,( trach and peg tube-since removed) Past Anesthesia/Blood Transfusion Reactions: No Reported Reaction Smoking Status: Former smoker - Past Family History Mother Family Medical History: Cancer, COPD, Hypertension Additional Family Medical History / Comment(s): Mother at age 83 from COPD and osteoarthritis and had skin cancer. Father Family Medical History: Cancer, CVA/TIA, Dementia, Diabetes Mellitus Additional Family Medical History / Comment(s): Father is 90yrs old. Brother(s) Family Medical History: Cancer Additional Family Medical History / Comment(s): Patient had 5 brothers and one of them from melanoma. Sister(s) History Unknown: Yes Family Medical History: No Reported History Additional Family Medical History / Comment(s): Patient has one sister. Patient has no kids. Medications and Allergies Home Medications Medication Instructions Recorded Confirmed Type Adalimumab [Humira Pen] 40 mg SQ TU 06/21/14 10/26/18 History Latanoprost Ophth [Xalatan 0.005%] 1 drop BOTH EYES DAILY 05/21/17 10/26/18 History Cyanocobalamin [Vitamin B-12 1,000 mcg SQ Q30D 07/24/18 10/26/18 History Injection] Dicyclomine [Bentyl] 10 mg PO TID 07/24/18 10/26/18 History Ondansetron [Zofran] 4 mg PO Q6H PRN 07/24/18 10/26/18 History Albuterol Nebulized [Ventolin 2.5 mg INHALATION RT-TID PRN 09/09/18 10/26/18 History Nebulized] Ipratropium-Albuterol Nebulize 3 ml INHALATION RT-Q8H 09/09/18 10/26/18 History [Duoneb 0.5 mg-3 mg/3 ml Soln] Loperamide [Imodium] 2 mg PO Q6H PRN 09/09/18 10/26/18 History Budesonide 1 mg INHALATION RT-BID 09/27/18 10/26/18 History Gabapentin [Neurontin] 300 mg PO TID 09/27/18 10/26/18 History HYDROcodone/APAP 10-325MG [[place] 1 tab PO Q4H PRN 09/27/18 10/26/18 History 10-325] Nicotine Polacrilex [Nicorette] 4 mg BUCCAL Q6H PRN 09/27/18 10/26/18 History Opium Tincture 10mg/1ml 20 mg PO QID PRN 09/27/18 10/26/18 History Colchicine [Colcrys] 0.6 mg PO DAILY #21 each 10/16/18 10/26/18 Rx DULoxetine HCL [Cymbalta] 30 mg PO BID #60 capsule. 10/16/18 10/26/18 Rx Furosemide [Lasix] 20 mg PO DAILY #0 10/16/18 10/26/18 Rx LORazepam [Ativan] 0.25 mg PO TID 3 Days #5 tab 10/16/18 10/26/18 Rx Melatonin 15 mg PO HS tablet 10/16/18 10/26/18 Rx Metoprolol Tartrate [Lopressor] 50 mg PO BID #60 tab 10/16/18 10/26/18 Rx Nystatin 100,000 Unit/ml Susp 500,000 unit PO QID #120 ml 10/16/18 10/26/18 Rx [Mycostatin Oral Susp] Potassium Chloride ER [K-Dur 20] 10 meq PO DAILY #0 10/16/18 10/26/18 Rx Verapamil [Isoptin] 40 mg PO TID #90 tab 10/16/18 10/26/18 Rx busPIRone HCl [Buspar] 10 mg PO TID #90 tab 10/16/18 10/26/18 Rx predniSONE See Taper PO DIRECTED 10/26/18 10/26/18 History Allergies Allergy/AdvReac Type Severity Reaction Status Date / Time Iodinated Contrast- Oral and Allergy Anaphylaxis Verified 10/26/18 15:49 IV Dye pregabalin [From Lyrica] Allergy Unknown Verified 10/26/18 15:49 rofecoxib [From Vioxx] Allergy Unknown Verified 10/26/18 15:49 Sulfa (Sulfonamide Allergy Rash/Hives Verified 10/26/18 15:49 Antibiotics) aspirin AdvReac Internal Verified 10/26/18 15:49 Bleeding timolol [Timolol] AdvReac Nausea & Verified 10/26/18 15:49 Vomiting Physical Exam Vitals: Vital Signs Temp Pulse Resp BP Pulse Ox 10/29/18 14:00 91 18 84/52 96 10/29/18 13:30 89 18 95/58 97 10/29/18 13:00 110 H 18 82/48 96 10/29/18 12:30 107 H 18 89/56 95 10/29/18 12:00 98.6 F 111 H 18 95/57 96 10/29/18 11:59 118 H 10/29/18 11:52 115 H 10/29/18 11:30 121 H 18 104/64 95 10/29/18 11:00 129 H 22 121/76 95 10/29/18 10:30 135 H 16 131/82 94 L 10/29/18 10:00 137 H 16 130/80 94 L 10/29/18 09:30 135 H 16 138/86 95 10/29/18 09:00 121 H 16 98/60 96 10/29/18 08:30 92 16 92/59 96 10/29/18 08:10 101 H 10/29/18 08:00 98.2 F 113 H 16 101/66 98 10/29/18 07:55 112 H 10/29/18 07:44 117 H 10/29/18 07:30 118 H 16 120/80 95 10/29/18 07:00 138 H 132/76 95 10/29/18 06:30 137 H 131/76 95 10/29/18 06:00 131 H 134/77 96 10/29/18 05:30 124 H 113/67 96 10/29/18 05:00 99 105/59 96 10/29/18 04:30 96 102/62 96 10/29/18 04:23 96 10/29/18 04:00 98.6 F 96 96/58 99 10/29/18 03:30 107 H 99/59 99 10/29/18 03:00 107 H 102/62 99 10/29/18 02:30 118 H 112/73 99 10/29/18 02:00 58 L 71/46 99 10/29/18 01:30 120 H 80/53 98 10/29/18 01:01 126 H 10/29/18 01:00 125 H 112/69 98 10/29/18 00:48 128 H 10/29/18 00:30 133 H 16 126/74 95 10/29/18 00:00 99.1 F 152 H 18 118/71 94 L 10/28/18 23:30 154 H 16 145/85 94 L 10/28/18 23:00 163 H 16 119/69 95 10/28/18 22:42 160 H 16 119/69 98 10/28/18 22:30 163 H 15 103/65 95 10/28/18 22:00 158 H 16 93/62 93 L 10/28/18 21:30 152 H 16 100/63 93 L 10/28/18 21:00 151 H 18 97/58 99 10/28/18 20:30 131 H 9 L 108/61 93 L 10/28/18 20:00 98.3 F 106 H 20 93/55 96 10/28/18 19:30 84 16 99/56 96 10/28/18 19:27 90 10/28/18 19:16 88 10/28/18 19:15 88 10/28/18 19:00 88 16 103/59 97 10/28/18 18:58 85 10/28/18 18:30 85 15 105/61 96 10/28/18 18:00 87 15 104/57 97 10/28/18 17:30 83 15 105/64 96 10/28/18 17:00 88 19 97/57 97 10/28/18 16:30 80 17 93/58 97 10/28/18 16:00 98.3 F 81 16 100/60 97 10/28/18 15:30 78 17 95/59 98 10/28/18 15:16 76 10/28/18 15:00 76 16 90/54 99 10/28/18 14:53 85 10/28/18 14:30 96 19 98/59 96 Intake and Output 10/28/18 10/29/18 10/29/18 22:59 06:59 14:59 Intake Total 3518.520 3289.553 2543.877 Output Total 559 911 910 Balance 874.549 541.630 2127.877 Intake: IV 021 210 9589 Magnesium Sulfate-D5w Pmx 100 1 gm In Dextrose/Water 1 100ml.bag @ 100 mls/hr IVPB Q1H [facility] Rx#: [id number] Potassium Phosphate 10 250 mmol In Sodium Chloride 0 .9% 250 ml @ 125 mls/hr IV ONCE ONE Rx#:[id number] Sodium Chloride 0.45% 1, 600 675 000 ml @ 75 mls/hr IV . [id number] [facility] Rx#:[id number] Sodium Chloride 0.45% 1, 1207 000 ml @ 75 mls/hr IV . [id number] [facility] Rx#:[id number] fentaNYL (PF) 2,500 mcg 66 In Sodium Chloride 0.9% 200 ml @ 100 MCG/HR 10 mls/hr IV .Q24H [facility] Rx#: [id number] Intake, IV Titration 253.549 187.553 310.877 Amount Cisatracurium 200 mg In 85.78 Sodium Chloride 0.9% 180 ml @ 2 MCG/KG/MIN 6.79 mls/hr IV .Q24H [facility] Rx#: [id number] Norepinephrine 16 mg In 17.695 Sodium Chloride 0.9% 250 ml @ Titrate IV .Q0M [facility] Rx#:[id number] Propofol 1,000 mg In 156.377 187.553 207.402 Empty Bag 1 bag @ Titrate IV .Q0M [facility] Rx#: [id number] fentaNYL (PF) 2,500 mcg 97.172 In Sodium Chloride 0.9% 200 ml @ 100 MCG/HR 10 mls/hr IV .Q24H [facility] Rx#: [id number] Tube Feeding 550 550 550 Other 30 60 Output: Chest Tube Drainage 44 6 Chest Tube Left Mid- 23 5 Axillary Chest Chest Tube Right Mid- 6 0 Axillary Chest Left Mid-Axillary Chest 15 1 Urine 515 905 710 Stool 200 Other: Voiding Method Indwelling Catheter Indwelling Catheter Indwelling Catheter Weight 58.6 kg 58.6 kg Results 10/29/18 05:40 10/29/18 05:40 Cardiac Enzymes 10/29/18 10/29/18 10/29/18 Range/Units 00:10 00:10 00:10 AST 26 (14-36) U/L CK-MB (CK-2) 2.2 (0.0-2.4) ng/mL Troponin I 0.037 H* (0.000-0.034) ng/mL 10/29/18 10/29/18 Range/Units 05:40 13:20 AST (14-36) U/L CK-MB (CK-2) (0.0-2.4) ng/mL Troponin I 0.040 H* 0.027 (0.000-0.034) ng/mL CBC 10/29/18 Range/Units 05:40 WBC 10.9 H (3.8-10.6) k/uL RBC 3.11 L (3.80-5.40) m/uL Hgb 9.2 L (11.4-16.0) gm/dL Hct 29.0 L (34.0-46.0) % Plt Count 163 (150-450) k/uL Comprehensive Metabolic Panel 10/29/18 10/29/18 Range/Units 00:10 05:40 Sodium 142 140 (137-145) mmol/L Potassium 3.8 3.8 (3.5-5.1) mmol/L Chloride 110 H 108 H (98-107) mmol/L Carbon Dioxide 27 29 (22-30) mmol/L BUN 18 H 21 H (7-17) mg/dL Creatinine 0.58 0.64 (0.52-1.04) mg/dL Glucose 172 H 175 H (74-99) mg/dL Calcium 9.3 8.8 (8.4-10.2) mg/dL AST 26 (14-36) U/L ALT 147 H (9-52) U/L Alkaline Phosphatase 65 (38-126) U/L Total Protein 5.1 L (6.3-8.2) g/dL Albumin 2.8 L (3.5-5.0) g/dL Current Medications Generic Name Dose Route Start Last Admin Trade Name Freq PRN Reason Stop Dose Admin Acetaminophen 650 mg 10/26/18 17:42 Tylenol Suppository RECTAL Q4HR PRN Fever And/ Or Mild Pain Hydrocodone Bitart/Acetaminophen 1 each 10/27/18 17:29 10/28/18 17:55 [place] 10 PO 1 each Q4H PRN Administration Moderate Pain Albuterol/Ipratropium 3 ml 10/26/18 17:42 10/27/18 03:40 Duoneb 0.5 Mg-3 Mg/3 Ml Soln INHALATION 3 ml RT-Q4H PRN Administration Shortness Of Breath Or Wheezing Albuterol/Ipratropium 3 ml 10/27/18 12:00 10/29/18 11:52 Duoneb 0.5 Mg-3 Mg/3 Ml Soln INHALATION 3 ml RT-Q4H [facility] Administration Budesonide 1 mg 10/27/18 20:00 10/29/18 07:40 Pulmicort INHALATION 1 mg RT-BID [facility] Administration Chlorhexidine Gluconate 15 ml 10/26/18 21:00 10/29/18 09:15 Peridex MUCOUS MEM 15 ml BID [facility] Administration Formoterol Fumarate 20 mcg 10/27/18 20:00 10/29/18 07:41 Perforomist INHALATION 20 mcg RT-BID [facility] Administration Heparin Sodium (Porcine) 5,000 unit 10/27/18 00:00 10/29/18 09:15 Heparin SQ 5,000 unit Q8HR [facility] Administration Hydromorphone HCl 0.5 mg 10/27/18 15:21 10/29/18 11:59 Dilaudid IVP 0.5 mg Q6HR PRN Administration Severe Pain Propofol 1,000 mg/ IV Solution 100 mls @ 0 mls/hr 10/26/18 20:15 10/29/18 13: 51 IV 55 mcg/kg/min .Q0M [facility] 19.33 mls/hr Titration Protocol Titrate Norepinephrine Bitartrate 16 250 mls @ 0 mls/hr 10/26/18 20:15 10/29/18 09:00 mg/ Sodium Chloride IV 0 mcg/min .Q0M [facility] 0 mls/hr Titration Protocol Titrate Sodium Chloride 1,000 mls @ 75 mls/hr 10/28/18 08:45 10/29/18 13:17 Saline 0.45% IV 10/31/18 08:46 75 mls/hr .[id number] [facility] Administration Fentanyl Citrate 2,500 mcg/ 250 mls @ 10 mls/hr 10/29/18 20:00 Sodium Chloride IV .Q24H [facility] 100 MCG/HR Insulin Aspart 0 unit 10/27/18 19:30 10/29/18 11:58 Novolog SQ 5 unit Q6HR [facility] Administration Protocol Methylprednisolone Sodium Succinate 60 mg 10/27/18 12:00 10/29/18 11:58 Solu-Medrol IV 60 mg Q6HR [facility] Administration Metoprolol Tartrate 5 mg 10/29/18 00:04 10/29/18 07:00 Lopressor IVP 5 mg Q6HR PRN Administration Heart Rate - HIGH Miscellaneous Information 1 each 10/27/18 05:32 Magnesium Per Protocol MISCELLANE DAILY PRN Per Protocol Protocol Miscellaneous Information 1 each 10/29/18 08:22 Phosphorus Per Protocol MISCELLANE DAILY PRN Per Protocol Protocol Naloxone HCl 0.2 mg 10/26/18 17:42 Narcan IV Q2M PRN Opioid Reversal Opium Tincture 1% 10 2 ml 10/28/18 12:42 Mg/Ml PO QID PRN abdominal pain Pantoprazole Sodium 40 mg 10/27/18 09:00 10/29/18 09:15 Protonix IV 40 mg DAILY [facility] Administration Intake and Output 10/28/18 10/29/18 10/29/18 22:59 06:59 14:59 Intake Total 3705.956 7566.553 2543.877 Output Total 559 911 910 Balance 874.549 937.714 3044.877 Intake: IV 234 602 5688 Magnesium Sulfate-D5w Pmx 100 1 gm In Dextrose/Water 1 100ml.bag @ 100 mls/hr IVPB Q1H [facility] Rx#: [id number] Potassium Phosphate 10 250 mmol In Sodium Chloride 0 .9% 250 ml @ 125 mls/hr IV ONCE ONE Rx#:[id number] Sodium Chloride 0.45% 1, 600 675 000 ml @ 75 mls/hr IV . [id number] ONE Rx#:[id number] Sodium Chloride 0.45% 1, 1207 000 ml @ 75 mls/hr IV . [id number] [facility] Rx#:[id number] fentaNYL (PF) 2,500 mcg 66 In Sodium Chloride 0.9% 200 ml @ 100 MCG/HR 10 mls/hr IV .Q24H [facility] Rx#: [id number] Intake, IV Titration 253.549 187.553 310.877 Amount Cisatracurium 200 mg In 85.78 Sodium Chloride 0.9% 180 ml @ 2 MCG/KG/MIN 6.79 mls/hr IV .Q24H [facility] Rx#: [id number] Norepinephrine 16 mg In 17.695 Sodium Chloride 0.9% 250 ml @ Titrate IV .Q0M [facility] Rx#:[id number] Propofol 1,000 mg In 156.377 187.553 207.402 Empty Bag 1 bag @ Titrate IV .Q0M [facility] Rx#: [id number] fentaNYL (PF) 2,500 mcg 97.172 In Sodium Chloride 0.9% 200 ml @ 100 MCG/HR 10 mls/hr IV .Q24H [facility] Rx#: [id number] Tube Feeding 550 550 550 Other 30 60 Output: Chest Tube Drainage 44 6 Chest Tube Left Mid- 23 5 Axillary Chest Chest Tube Right Mid- 6 0 Axillary Chest Left Mid-Axillary Chest 15 1 Urine 515 905 710 Stool 200 Other: Voiding Method Indwelling Catheter Indwelling Catheter Indwelling Catheter Weight 58.6 kg 58.6 kg Patient Weight 10/30/18 06:59 Weight 58.6 kg 10/29/18 05:40 10/29/18 05:40
[2018-10-29] MEDS: HYDROcodone/APAP 10-325MG 1 EACH TAB PO PRN (15:51)
[2018-10-29 17:39] LABS: Glucose,Whole Blood 112 mg/dL (75-99)
[2018-10-29 20:10] LABS: Glucose,Whole Blood 132 mg/dL (75-99)
[2018-10-29 23:51] LABS: Glucose,Whole Blood 147 mg/dL (75-99)
[2018-10-30] MEDS: fentaNYL (PF) 2,500 MCG in SODIUM CHLORIDE 0.9% 200 ML IV SCH ×2
[2018-10-30] MEDS: HEPARIN SODIUM,PORCINE 5,000 UNIT/ML 1 ML VIAL SQ SCH ×3 (01:17→16:10)
[2018-10-30] MEDS: methylPREDNISolone SOD SUCCI 125 MG/2 ML VIAL IV SCH ×4 (01:20→18:22)
[2018-10-30] MEDS: IPRATROPIUM-ALBUTEROL 3 ML NEB INHALATION SCH ×6 (03:32→23:30)
[2018-10-30 05:52] LABS: Glucose,Whole Blood 155 mg/dL (75-99)
[2018-10-30] MEDS: INSULIN ASPART 100 UNIT/ML 1 ML 10 ML VIAL SQ SCH ×4 (05:53→22:26)
[2018-10-30 07:01] LABS: Basophils % (A) 0 %; Eosinophils # (A) 0.1 k/uL (0-0.7); Eosinophils % (A) 0 %; HCT 27.9 % (34.0-46.0); HGB 8.7 gm/dL (11.4-16.0); Hypochromasia Marked; Lymphocytes # (A) 0.5 k/uL (1.0-4.8); Lymphocytes % (A) 5 %; MCH 29.7 pg (25.0-35.0); MCHC 31.3 g/dL (31.0-37.0); Mean Platelet Volume 7.7; Monocytes # (A) 0.2 k/uL (0-1.0); Monocytes % (A) 2 %; Neutrophils # (A) 10.4 k/uL (1.3-7.7); Neutrophils % (A) 92 %; Platelet Count 187 k/uL (150-450); RBC 2.94 m/uL (3.80-5.40); RDW 15.6 % (11.5-15.5); WBC 11.3 k/uL (3.8-10.6)
--- NOTE | 2018-10-30 07:03 | XR ---
EXAMINATION TYPE: XR chest 1V portable DATE OF EXAM: 10/30/2018 COMPARISON: 10/29/2018 HISTORY: Tube placement TECHNIQUE: Single frontal view of the chest is obtained. FINDINGS: Chest tubes are seen. ET and NG tubes stable. Central line stable. Bilateral consolidation and pleural effusion noted. Changes of COPD. No sizable pneumothorax. Diffuse soft tissue emphysema noted on the left. Rib deformities appear stable. IMPRESSION: 1. Bilateral consolidation and pleural effusion are stable. Diffuse soft tissue emphysema stable with no sizable pneumothorax.
[2018-10-30 07:24] LABS: Anion Gap 3 mmol/L; Blood Urea Nitrogen 28 mg/dL (7-17); Calcium 8.9 mg/dL (8.4-10.2); Carbon Dioxide 25 mmol/L (22-30); Chloride 110 mmol/L (98-107); Glucose 151 mg/dL (74-99); Magnesium 1.8 mg/dL (1.6-2.3); Phosphorus 2.8 mg/dL (2.5-4.5); Potassium 4.7 mmol/L (3.5-5.1); Sodium 138 mmol/L (137-145)
[2018-10-30] MEDS: PROPOFOL 1,000 MG in EMPTY BAG 1 BAG IV SCH ×2 (08:10)
[2018-10-30 08:18] LABS: ABG Base Excess 3.9 mmol/L; ABG HCO3 28 mmol/L (21-25); ABG Oxygen Saturation 98.1 % (94-97); ABG PCO2 41 mmHg (35-45); ABG PH 7.44 (7.35-7.45); ABG PO2 88 mmHg (83-108); ABG TCO2 29 mmol/L (19-24)
[2018-10-30] MEDS: BUDESONIDE 1 MG/2 ML NEBU INHALATION SCH ×2 (08:38→19:52)
[2018-10-30] MEDS: FORMOTEROL FUMARATE 20 MCG/2 ML NEBU INHALATION SCH ×2 (08:38→19:52)
--- NOTE | 2018-10-30 09:51 | P.PN ---
Subjective Progress Note Date: 10/30/18 This is a 58-year-old female who follows with Dr. James as her primary care physician. She has a history of hyperlipidemia, hypothyroidism, anemia, fibromyalgia, anxiety/depression, COPD. She presented to the emergency department with dyspnea. Patient was at home when she experienced rest for distress and called EMS. In route to the hospital she was put on a BiPAP due to minimal responsiveness. Upon arrival to the emergency department her initial vital signs were tachycardic with no measurable pulse oximetry and she was hypotensive. Patient was positive for JVD, 1 view chest was obtained for a positive pneumothorax 50% on the left and a possible pneumothorax on the right. A chest tube was placed on the left and patient had failure to respond to treatment. At which CPR was initiated by ACLS protocol for approximately 1 minute. A central line was placed in the left subclavian vein during the code. Patient was intubated. An repeat chest x-ray showed a pneumothorax on the right and a right-sided 24-English chest tube was placed. Patient's vital signs improved and she was transported to ICU for continuation of care. Patient presents intubated at this time. She is awake and able to answer questions appropriately. Her current vent setting assist control of 16, tidal volume 350 , FiO2 at 35% and a PEEP of 5. Her morning blood gases reveal a pO2 of 85 pCO2 of 41 pH 7.38. H&H is currently sedated with 30 mics per KG per minute of debridement and, fentanyl drip at 1 MCG per KG per hour. Patient is able to follow commands she is able to move all 4 extremities. Her white count is 7.6, hemoglobin of 10, creatinine 0.6. 10/28: Patient continues to be sedated and intubated. Chest x-ray this morning showed significant progression of left-sided pneumothorax estimated at 50%. Left lower lobe pleural catheter appears unchanged in position. It increased subcutaneous air identified. Subsequently the patient underwent a another chest tube insertion on the left side to help relieve the pneumothorax. Repeat checks x-ray showed a persistent left apical pneumothorax estimated at 15-20%. A new left-sided chest tube place. Patient is receiving tube feedings through NG tube at this time. She continues to be on propofol at 65 mics per KG per minute and fentanyl drip at 1 nury per KG per hour. Patient also is getting Dilaudid and [place] as needed for pain. Her brought in opium to help with abdominal discomfort. Vent settings are unchanged the vent setting assist control 16, tidal volume of 350, FiO2 at 35%, and a PEEP of 5. Patient's urinary output is 50-70 mL per hour. Discussed findings with at the bedside in the plan to continue with sedation and intubation to rest the lungs and we will reassess tomorrow for possible weaning. states that this happened a few months ago where she was on prolonged intubation due to her lungs not recovering. 10/29: Patient continues to be sedated and intubated. Chest x-ray does show improvement to bilateral pneumothorax and [address]. Patient has been tachycardic overnight with a rate in the 130s. Patient grimaces in pain and withdraws. Patient continue to see tube feedings through NG tube. She continues to be on propofol and fentanyl for sedation. Patient was on Nimbex overnight however that has been DC'd. Vent settings are unchanged with the vent assist control 16, tidal volume 350, FiO2 at 35%, and a PEEP of 5. Patient 's urinary output continues to be 50-70 ML's per hour. Discussed case with pulmonology and consult for trach and PEG tube is in place. Pulmonology does not feel the patient will be successful in weaning. 10/30/18: Patient is sitting up in bed extubated. Patient was successfully weaned this morning. She is alert and orientated 3 and able to answer questions appropriately. Patient is complaining of pain to the chest due to the 3 chest tubes that are in place. Patient does have a history of Crohn's and discussed the medication she normally takes for them including Humira which we will hold at this time. Patient continues to be on sentinel drip for pain she also is receiving Dilaudid as needed for breakthrough pain. CBC 11.3, hemoglobin 8.7, potassium 4.7 BUN 28 creatinine 0.5. Review Of Systems: Constitutional: Pain to the chest due to chest tube No fever, no chills, no night sweats. No weight change. No weakness, fatigue or lethargy. No daytime sleepiness. EENT: No headache. No blurred vision or double vision, no loss of vision. No loss of Hearing, no ringing in the ears, no dizziness. No nasal drainage or congestion. No epistaxis. No sore throat. Lungs: No shortness of breath, cough, no sputum production. No wheezing. Cardiovascular: No chest pain, no lower extremity edema. No palpitations. No paroxysmal nocturnal dyspnea. No orthopnea. No lightheadedness or dizziness. No syncopal episodes. Abdominal: no abdominal discomfort. No nausea, vomiting. no diarrhea. No constipation. No bloody or tarry stools. improved loss of appetite. Genitourinary: No dysuria, increased frequency, urgency. No urinary retention. Musculoskeletal: No myalgias. No muscle weakness, no gait dysfunction, no frequent falls. No back pain. No neck pain. Integumentary: No wounds, no lesions. No rash or pruritus. No unusual bruising. No change in hair or nails. Neurologic: No aphasia. No facial droop. No change in mentation. No head injury. No headache. No paralysis. No paresthesia. Psychiatric: No depression. No anxiety. No mood swings. Endocrine: No abnormal blood sugars. No weight change. No excessive sweating or thirst. Objective - Vital Signs Vital signs: Vital Signs Temp 98.2 F 10/30/18 04:00 Pulse 100 10/30/18 08:05 Resp 18 10/30/18 07:00 BP 107/70 10/30/18 07:00 Pulse Ox 98 10/30/18 07:00 Intake & Output 10/29/18 10/30/18 10/30/18 18:59 06:59 18:59 Intake Total 2680.435 1610.326 338.216 Output Total 1225 706 80 Balance 1455.435 904.326 258.216 Weight 58.6 kg 58.3 kg Intake: IV 1281 930 75 Magnesium Sulfate-D5w Pmx 100 1 gm In Dextrose/Water 1 100ml.bag @ 100 mls/hr IVPB Q1H [facility] Rx#: [id number] Potassium Phosphate 10 250 mmol In Sodium Chloride 0 .9% 250 ml @ 125 mls/hr IV ONCE ONE Rx#:[id number] Sodium Chloride 0.45% 1, 825 900 75 000 ml @ 75 mls/hr IV . [id number] [facility] Rx#:[id number] fentaNYL (PF) 2,500 mcg 106 30 In Sodium Chloride 0.9% 200 ml @ 100 MCG/HR 10 mls/hr IV .Q24H [facility] Rx#: [id number] Intake, IV Titration 399.435 100.326 223.216 Amount Cisatracurium 200 mg In 85.78 Sodium Chloride 0.9% 180 ml @ 2 MCG/KG/MIN 6.79 mls/hr IV .Q24H [facility] Rx#: [id number] Norepinephrine 16 mg In 18.848 0.326 Sodium Chloride 0.9% 250 ml @ Titrate IV .Q0M [facility] Rx#:[id number] Propofol 1,000 mg In 294.807 100 130.716 Empty Bag 1 bag @ Titrate IV .Q0M [facility] Rx#: [id number] fentaNYL (PF) 2,500 mcg 92.500 In Sodium Chloride 0.9% 200 ml @ 100 MCG/HR 10 mls/hr IV .Q24H [facility] Rx#: [id number] Tube Feeding 850 490 40 Other 150 90 Output: Chest Tube Drainage 45 21 Chest Tube Left Mid- 45 18 Axillary Chest Chest Tube Right Mid- 3 Axillary Chest Left Mid-Axillary Chest 0 Urine 880 685 80 Stool 300 Other: Voiding Method Indwelling Catheter Indwelling Catheter - Constitutional General appearance: Present: average body habitus, cooperative, no acute distress - EENT Eyes: Present: anicteric sclerae, EOMI, PERRLA ENT: Present: hearing grossly normal, NA/AT - Neck Neck: Present: normal ROM. Absent: lymphadenopathy - Respiratory Respiratory: bilateral: diminished, wheezing, negative: dullness, rales, rhonchi , prolonged expiration, prolonged inspiration, other - Cardiovascular Rhythm: regular Heart sounds: normal: S1, S2 Abnormal Heart Sounds: Absent: systolic murmur, diastolic murmur, rub, S3 Gallop , S4 Gallop, click, other - Gastrointestinal General gastrointestinal: Present: normal bowel sounds, soft. Absent: tenderness - Integumentary Integumentary: Present: pale - Neurologic Neurologic: Present: CNII-XII intact - Musculoskeletal Musculoskeletal: Present: generalized weakness, strength equal bilaterally - Psychiatric Psychiatric: Present: A&O x's 3, appropriate affect, intact judgment & insight - Labs CBC & Chem 7: 10/30/18 06:40 10/30/18 06:40 Labs: Abnormal Lab Results - Last 24 Hours (Table) 10/29/18 10/29/18 10/29/18 Range/Units 11:51 17:27 19:57 WBC (3.8-10.6) k/uL RBC (3.80-5.40) m/uL Hgb (11.4-16.0) gm/dL Hct (34.0-46.0) % RDW (11.5-15.5) % Neutrophils # (1.3-7.7) k/uL Lymphocytes # (1.0-4.8) k/uL ABG HCO3 (21-25) mmol/L ABG Total CO2 (19-24) mmol/L ABG O2 Saturation (94-97) % Chloride (98-107) mmol/L BUN (7-17) mg/dL Creatinine (0.52-1.04) mg/dL Glucose (74-99) mg/dL POC Glucose (mg/dL) 193 H 112 H 132 H (75-99) mg/dL 10/29/18 10/30/18 10/30/18 Range/Units 23:39 05:40 06:40 WBC 11.3 H (3.8-10.6) k/uL RBC 2.94 L (3.80-5.40) m/uL Hgb 8.7 L (11.4-16.0) gm/dL Hct 27.9 L (34.0-46.0) % RDW 15.6 H (11.5-15.5) % Neutrophils # 10.4 H (1.3-7.7) k/uL Lymphocytes # 0.5 L (1.0-4.8) k/uL ABG HCO3 (21-25) mmol/L ABG Total CO2 (19-24) mmol/L ABG O2 Saturation (94-97) % Chloride (98-107) mmol/L BUN (7-17) mg/dL Creatinine (0.52-1.04) mg/dL Glucose (74-99) mg/dL POC Glucose (mg/dL) 147 H 155 H (75-99) mg/dL 10/30/18 10/30/18 Range/Units 06:40 08:16 WBC (3.8-10.6) k/uL RBC (3.80-5.40) m/uL Hgb (11.4-16.0) gm/dL Hct (34.0-46.0) % RDW (11.5-15.5) % Neutrophils # (1.3-7.7) k/uL Lymphocytes # (1.0-4.8) k/uL ABG HCO3 28 H (21-25) mmol/L ABG Total CO2 29 H (19-24) mmol/L ABG O2 Saturation 98.1 H (94-97) % Chloride 110 H (98-107) mmol/L BUN 28 H (7-17) mg/dL Creatinine 0.50 L (0.52-1.04) mg/dL Glucose 151 H (74-99) mg/dL POC Glucose (mg/dL) (75-99) mg/dL Microbiology - Last 24 Hours (Table) 10/26/18 16:28 Blood Culture - Preliminary Blood No Growth after 72 hours Assessment and Plan Plan: #1 Acute hypoxic respiratory failure secondary to acute exacerbation of severe oxygen dependent chronic obstructive pulmonary disease, complicated by bilateral pneumothorax. Status post bilateral chest tube placements. Continue fentanyl drip. Start Dilaudid 0.5 mg every 3 hours as needed for break through pain and [place] as needed. Repeat chest x-ray, and labs in the morning. #2 Brief cardiac arrest secondary to above responded to epinephrine. #3 Severe advanced chronic obstructive pulmonary disease and bullous emphysema with underlying FEV1 value 36% of predicted. Both oxygen and steroid dependent. Continue Pulmicort, continue IV Solu-Medrol, #4 History of prolonged respiratory failure requiring intubation mechanical ventilation with subsequent tracheostomy and PEG tube placements and [facility] stable. #5 bilateral pneumothorax related to severe advanced stages of COPD and bullous emphysema Chest tubes in place. Continuous chest x-ray # 6 Previous history of right-sided pneumothorax 2. #7 Chronic left upper lobe inflammatory opacity. #8 Hyperlipidemia. #9 hypertension. Continue to monitor blood pressure #10 Chronic normocystic anemia, anemia of chronic disease. Monitor CBC #11 Fibromyalgia. Continue with fentanyl drip #12 History of anxiety/depression with previous discontinuation of her prescribed medications. #13 history of Crohn's. Consult gastroenterology #14 GI prophylactics Protonix 40 mg IV daily #15 DVT prophylaxis heparin 5000 units subcu every 8 hours Impression and plan of care have been directed as dictated by the signing physician. Juani Mejia nurse practitioner acting as scribe for signing physician.
[2018-10-30] MEDS: MAGNESIUM SULFATE-D5W PMX 1 GM in DEXTROSE/WATER 1 100ML.BAG IVPB SCH ×2 (10:00→11:44)
[2018-10-30] MEDS: SODIUM CHLORIDE 0.45% 1,000 ML IV SCH ×2 (10:00→16:34)
[2018-10-30] MEDS: PANTOPRAZOLE 40 MG/10 ML VIAL IV SCH (10:01)
[2018-10-30] MEDS: CHLORHEXIDINE GLUCONATE 15 ML CUP MUCOUS MEM SCH (10:01)
[2018-10-30 11:09] LABS: ABG Base Excess 3.3 mmol/L; ABG HCO3 27 mmol/L (21-25); ABG Oxygen Saturation 98.1 % (94-97); ABG PCO2 37 mmHg (35-45); ABG PH 7.47 (7.35-7.45); ABG PO2 79 mmHg (83-108); ABG TCO2 28 mmol/L (19-24)
[2018-10-30] MEDS: HYDROmorphone 0.5 MG/0.5 ML SYRINGE IVP PRN ×3 (11:45→20:14)
[2018-10-30 12:44] LABS: Glucose,Whole Blood 166 mg/dL (75-99)
--- NOTE | 2018-10-30 12:53 | P.PN ---
Subjective Progress Note Date: 10/30/18 Principal diagnosis: Acute hypoxic respiratory failure secondary to COPD and bilateral pneumothoraces. This is a 58-year-old female patient who follows with Dr. James as her primary care physician. She has a history of hyperlipidemia, hypothyroidism, anemia, fibromyalgia, anxiety/depression. Chest has a history of severe oxygen- dependent bullous emphysema/COPD with FEV1 value of 36% of predicted and a chronic left upper lobe inflammatory opacity that was nonmalignant. She has a history of prolonged respiratory failure requiring mechanical ventilation and was subsequently trached and [facility]. She had since been decannulated. She's had multiple admissions for COPD exacerbations most recently discharged from here on 10/16/2018. She was brought in by EMS to the emergency room yesterday with severe respiratory distress requiring initially BiPAP support. She was found to have bilateral pneumothorax and chest tubes were placed as well as a left thoravent. She had a brief cardiac arrest requiring epinephrine. She was subsequently intubated and placed on mechanical ventilator and transferred here to the intensive care unit. She is seen today in consultation with current vent settings assist- control of 16, tidal volume 350, FiO2 of 35% and a PEEP of 5. Morning blood gases reveal a P O2 of 85, pCO2 41, pH 7.38. Her measured airway resistance is currently 8.8. She is sedated on to prevent at 30 mcg/kg/m., Fentanyl drip at 1 mcg/kg per hour, 1.9 normal saline at 75 ML's per hour. She does follow simple commands. She is moving all fours. Cultures are pending. White count 7.6. Hemoglobin 10.0. Creatinine 0.69. She's been initiated and DuoNeb inhalations. Patient was reevaluated today on 10/29/2018, remains in the ICU on mechanical ventilation. Patient has been on same ventilator settings, tidal volume of 350 assist-control rate of 16 FiO2 of 35% and PEEP of 5. Patient remains on fentanyl drip, she is also on propofol drip, and both are basically maximized. Last night Dr. Meza placed the patient on Nimbex drip. However I have discontinued the Nimbex drip today, and I will try to control her agitation with fentanyl and propofol only. Patient continues to have left-sided chest tubes, and 1 right sided chest tube, all of them are showing a bit of a leak. Her ABG showed a pO2 of 120 pCO2 of 40 0 pH of 7.44. Basic metabolic profile is normal, WBC count is 10.9 hemoglobin is 9.2. Chest x-ray did show improvement in aeration of the right lung base with persistent left basilar opacity may represent mostly atelectasis or possibly pneumonia. No sizable pneumothorax is noted on both sides. Patient remains on multiple bronchodilators, and on Solu-Medrol. Today I discussed with the nurses and with the admitting physician that it would be best to consider tracheostomy and PEG tube placement since the patient is going to be almost extremely difficult to wean successfully. She had a similar episode in the past, and she did require tracheostomy and [facility]. Patient was reevaluated today on 10/30/2018, remains on mechanical ventilation, still requiring a significant dose of propofol and fentanyl. I have attempted to cut down the fentanyl to 25 mg per hour, and I have cut down the propofol gradually until discontinued. Her ventilator settings were noted to be assist- control rate of 16 FiO2 of 35% tidal volume of 350 and PEEP of 5. Her usual dose of propofol has been about 55 g and the dose of fentanyl was 100 g per hour. After cutting down on both and stopping her up a fall, I was able to give the patient a decent trial of pressure support of 10 and CPAP. Patient looked great and better than expected her chest x-ray was looking better today, her follow-up ABG post half hour at least on pressure support and CPAP looked great, pO2 was 79 pCO2 was 37 pH was 7.47, hence I proceeded to extubating the patient. I felt this is hour window otherwise the patient may require tracheostomy as noted previously. The rest of the labs and the chest x-ray were all reviewed. Electrolytes were normal CBC was relatively normal except for hemoglobin of 8.7. Objective - Vital Signs Vital signs: Vital Signs Temp 98.2 F 10/30/18 04:00 Pulse 118 H 10/30/18 11:25 Resp 18 10/30/18 07:00 BP 107/70 10/30/18 07:00 Pulse Ox 98 10/30/18 07:00 Intake & Output 10/29/18 10/30/18 10/30/18 18:59 06:59 18:59 Intake Total 2680.435 1610.326 825.936 Output Total 1225 706 340 Balance 1455.435 904.326 485.936 Weight 58.6 kg 58.3 kg Intake: IV 1281 930 400 Magnesium Sulfate-D5w Pmx 100 100 1 gm In Dextrose/Water 1 100ml.bag @ 100 mls/hr IVPB Q1H [facility] Rx#: [id number] Potassium Phosphate 10 250 mmol In Sodium Chloride 0 .9% 250 ml @ 125 mls/hr IV ONCE ONE Rx#:[id number] Sodium Chloride 0.45% 1, 825 900 300 000 ml @ 75 mls/hr IV . [id number] [facility] Rx#:[id number] fentaNYL (PF) 2,500 mcg 106 30 In Sodium Chloride 0.9% 200 ml @ 100 MCG/HR 10 mls/hr IV .Q24H [facility] Rx#: [id number] Intake, IV Titration 399.435 100.326 235.936 Amount Cisatracurium 200 mg In 85.78 Sodium Chloride 0.9% 180 ml @ 2 MCG/KG/MIN 6.79 mls/hr IV .Q24H [facility] Rx#: [id number] Norepinephrine 16 mg In 18.848 0.326 Sodium Chloride 0.9% 250 ml @ Titrate IV .Q0M [facility] Rx#:[id number] Propofol 1,000 mg In 294.807 100 138.786 Empty Bag 1 bag @ Titrate IV .Q0M [facility] Rx#: [id number] fentaNYL (PF) 2,500 mcg 97.150 In Sodium Chloride 0.9% 200 ml @ 100 MCG/HR 10 mls/hr IV .Q24H [facility] Rx#: [id number] Tube Feeding 850 490 160 Other 150 90 30 Output: Chest Tube Drainage 45 21 Chest Tube Left Mid- 45 18 Axillary Chest Chest Tube Right Mid- 3 Axillary Chest Left Mid-Axillary Chest 0 Urine 880 685 340 Stool 300 Other: Voiding Method Indwelling Catheter Indwelling Catheter - Exam GENERAL EXAM: Revealed a 58-year-old female, on mechanical ventilation, off sedation, followed instructions properly, in no distress. HEAD: Normocephalic. EYES: Normal reaction of pupils, equal size. NOSE: Clear with pink turbinates. THROAT: Oral endotracheal and gastric tube secured in place. No erythema or exudates. NECK: No masses, no JVD. Previous tracheostomy site scar. CHEST: No chest wall deformity. Bilateral chest tubes in place. 2 left-sided chest tubes were noted and 1 right-sided chest tube was also noted. LUNGS: Equal air entry with bilateral end expiratory wheeze, diminished. CVS: S1 and S2 normal with no audible murmur, regular rhythm. ABDOMEN: No hepatosplenomegaly, normal bowel sounds, no guarding or rigidity. SPINE: No scoliosis or deformity SKIN: No rashes CENTRAL NERVOUS SYSTEM: Sedated, presently on propofol and fentanyl drip. She was also on Nimbex which I have discontinued EXTREMITIES: There is no peripheral edema. No clubbing, no cyanosis. Peripheral pulses are intact. - Labs CBC & Chem 7: 10/30/18 06:40 10/30/18 06:40 Labs: Abnormal Lab Results - Last 24 Hours (Table) 10/29/18 10/29/18 10/29/18 Range/Units 17:27 19:57 23:39 WBC (3.8-10.6) k/uL RBC (3.80-5.40) m/uL Hgb (11.4-16.0) gm/dL Hct (34.0-46.0) % RDW (11.5-15.5) % Neutrophils # (1.3-7.7) k/uL Lymphocytes # (1.0-4.8) k/uL ABG pH (7.35-7.45) ABG pO2 (83-108) mmHg ABG HCO3 (21-25) mmol/L ABG Total CO2 (19-24) mmol/L ABG O2 Saturation (94-97) % Chloride (98-107) mmol/L BUN (7-17) mg/dL Creatinine (0.52-1.04) mg/dL Glucose (74-99) mg/dL POC Glucose (mg/dL) 112 H 132 H 147 H (75-99) mg/dL 10/30/18 10/30/18 10/30/18 Range/Units 05:40 06:40 06:40 WBC 11.3 H (3.8-10.6) k/uL RBC 2.94 L (3.80-5.40) m/uL Hgb 8.7 L (11.4-16.0) gm/dL Hct 27.9 L (34.0-46.0) % RDW 15.6 H (11.5-15.5) % Neutrophils # 10.4 H (1.3-7.7) k/uL Lymphocytes # 0.5 L (1.0-4.8) k/uL ABG pH (7.35-7.45) ABG pO2 (83-108) mmHg ABG HCO3 (21-25) mmol/L ABG Total CO2 (19-24) mmol/L ABG O2 Saturation (94-97) % Chloride 110 H (98-107) mmol/L BUN 28 H (7-17) mg/dL Creatinine 0.50 L (0.52-1.04) mg/dL Glucose 151 H (74-99) mg/dL POC Glucose (mg/dL) 155 H (75-99) mg/dL 10/30/18 10/30/18 10/30/18 Range/Units 08:16 11:06 12:33 WBC (3.8-10.6) k/uL RBC (3.80-5.40) m/uL Hgb (11.4-16.0) gm/dL Hct (34.0-46.0) % RDW (11.5-15.5) % Neutrophils # (1.3-7.7) k/uL Lymphocytes # (1.0-4.8) k/uL ABG pH 7.47 H (7.35-7.45) ABG pO2 79 L (83-108) mmHg ABG HCO3 28 H 27 H (21-25) mmol/L ABG Total CO2 29 H 28 H (19-24) mmol/L ABG O2 Saturation 98.1 H 98.1 H (94-97) % Chloride (98-107) mmol/L BUN (7-17) mg/dL Creatinine (0.52-1.04) mg/dL Glucose (74-99) mg/dL POC Glucose (mg/dL) 166 H (75-99) mg/dL Microbiology - Last 24 Hours (Table) 10/28/18 05:30 Gram Stain - Final Sputum Sputum Culture - Final Tish albicans 10/26/18 16:28 Blood Culture - Preliminary Blood No Growth after 72 hours Assessment and Plan Assessment: #1 Acute hypoxic respiratory failure secondary to acute exacerbation of severe oxygen dependent chronic obstructive pulmonary disease, complicated by bilateral pneumothorax. Status post 3 chest tube placements to on the left and one on the right. #2 Brief cardiac arrest secondary to above responded to epinephrine. #3 Severe advanced chronic obstructive pulmonary disease and bullous emphysema with underlying FEV1 value 36% of predicted. Both oxygen and steroid dependent. #4 History of prolonged respiratory failure requiring intubation mechanical ventilation with subsequent tracheostomy and PEG tube placements and [facility] stable. Subsequently decannulated. #5 Previous history of right-sided pneumothorax 2. #6 Chronic left upper lobe inflammatory opacity. #7 Hyperlipidemia. #8 Hypothyroidism. #9 Chronic normocystic anemia. #10 Fibromyalgia. #11 History of anxiety/depression with previous discontinuation of her prescribed medications. Plan: Continue present supportive care measures, while at bedside, I was able to stop propofol, cut down the fentanyl dose to 25 mcg/h, gave the patient a trial of pressure support and CPAP, and she was noted to tolerate that quite well. Hence proceeded to ABG about half an hour after being on pressure support and CPAP, and the ABG looked excellent. Then proceeded to extubating the patient to a nasal cannula, will definitely need a BiPAP at bedside. If needed we could use BiPAP. Will cancel plans for tracheostomy for now, critical care time is 40 minutes. Time with Patient: Greater than 30
[2018-10-30] MEDS: HYDROcodone/APAP 10-325MG 1 EACH TAB PO PRN ×2 (18:27→23:01)
[2018-10-30 18:30] LABS: Glucose,Whole Blood 125 mg/dL (75-99)
[2018-10-30] MEDS: METOPROLOL TARTRATE 5 MG/5 ML VIAL IVP PRN (20:16)
[2018-10-30 21:36] LABS: Glucose,Whole Blood 138 mg/dL (75-99)
[2018-10-30] MEDS: METOPROLOL TARTRATE 25 MG TAB PO SCH (22:26)
[2018-10-31] MEDS: HEPARIN SODIUM,PORCINE 5,000 UNIT/ML 1 ML VIAL SQ SCH ×4 (00:11→23:47)
[2018-10-31] MEDS: methylPREDNISolone SOD SUCCI 125 MG/2 ML VIAL IV SCH ×2 (00:12→08:16)
[2018-10-31] MEDS: HYDROmorphone 0.5 MG/0.5 ML SYRINGE IVP PRN ×6 (00:13→23:47)
[2018-10-31] MEDS: IPRATROPIUM-ALBUTEROL 3 ML NEB INHALATION SCH ×6 (03:25→23:30)
[2018-10-31] MEDS: SODIUM CHLORIDE 0.45% 1,000 ML IV SCH (04:08)
[2018-10-31] MEDS: fentaNYL (PF) 2,500 MCG in SODIUM CHLORIDE 0.9% 200 ML IV SCH (04:09)
[2018-10-31] MEDS: HYDROcodone/APAP 10-325MG 1 EACH TAB PO PRN ×3 (05:04→16:54)
[2018-10-31 05:46] LABS: Anisocytosis Slight; Basophils % (A) 0 %; Eosinophils % (A) 0 %; HCT 29.6 % (34.0-46.0); HGB 9.4 gm/dL (11.4-16.0); Lymphocytes # (A) 0.8 k/uL (1.0-4.8); Lymphocytes % (A) 6 %; MCH 28.8 pg (25.0-35.0); MCHC 31.9 g/dL (31.0-37.0); MCV 90.4 fL (80.0-100.0); Monocytes # (A) 0.3 k/uL (0-1.0); Monocytes % (A) 3 %; Neutrophils # (A) 11.9 k/uL (1.3-7.7); Neutrophils % (A) 90 %; Platelet Count 233 k/uL (150-450); RBC 3.27 m/uL (3.80-5.40); RDW 16.1 % (11.5-15.5); WBC 13.1 k/uL (3.8-10.6)
[2018-10-31 05:56] LABS: Anion Gap 3 mmol/L; Blood Urea Nitrogen 20 mg/dL (7-17); Calcium 9.1 mg/dL (8.4-10.2); Carbon Dioxide 32 mmol/L (22-30); Chloride 102 mmol/L (98-107); Glucose 136 mg/dL (74-99); Magnesium 1.9 mg/dL (1.6-2.3); Phosphorus 3.1 mg/dL (2.5-4.5); Potassium 3.9 mmol/L (3.5-5.1); Sodium 137 mmol/L (137-145)
[2018-10-31 07:07] LABS: Glucose,Whole Blood 132 mg/dL (75-99)
--- NOTE | 2018-10-31 08:04 | P.PN ---
Subjective Progress Note Date: 10/31/18 Principal diagnosis: Failure to wean status post ventilator-dependent hypoxic respiratory failure. Previous medical history of COPD with tracheostomy and PEG tube placement in June 2018, home oxygen use, fibromyalgia, GERD, GI bleed, hyperlipidemia, hypertension, osteoarthritis, pneumonia, multiple pneumothoraces, thoravent placement 2, Crohn's disease with multiple bowel surgeries, and previous tobacco dependence. The patient is currently sitting up in bed in no acute distress. She was successfully extubated yesterday and is currently on 4 L nasal cannula with oxygen saturation 96%. Objective - Vital Signs Vital signs: Vital Signs Temp 98.1 F 10/31/18 04:00 Pulse 96 10/31/18 07:00 Resp 18 10/31/18 07:00 BP 138/79 10/31/18 07:00 Pulse Ox 95 10/31/18 07:00 Intake & Output 10/30/18 10/31/18 10/31/18 18:59 06:59 18:59 Intake Total 1425.936 944.417 75 Output Total 1475 1435 40 Balance -49.064 -490.583 35 Weight 63 kg Intake: IV 1000 900 75 Magnesium Sulfate-D5w Pmx 100 1 gm In Dextrose/Water 1 100ml.bag @ 100 mls/hr IVPB Q1H [facility] Rx#: [id number] Sodium Chloride 0.45% 1, 900 900 75 000 ml @ 75 mls/hr IV . [id number] [facility] Rx#:[id number] Intake, IV Titration 235.936 44.417 Amount Propofol 1,000 mg In 138.786 Empty Bag 1 bag @ Titrate IV .Q0M [facility] Rx#: [id number] fentaNYL (PF) 2,500 mcg 97.150 44.417 In Sodium Chloride 0.9% 200 ml @ 25 MCG/HR 2.5 mls/hr IV .Q24H ME[facility]U Rx#: [id number] Tube Feeding 160 Other 30 Output: Chest Tube Drainage 55 Chest Tube Left Lateral 55 Chest Urine 1320 1435 40 Stool 100 Other: Voiding Method Indwelling Catheter Indwelling Catheter - Constitutional General appearance: Present: cooperative, no acute distress - Respiratory Details: Lungs sounds diminished bilaterally. Respirations even, nonlabored. Currently on 4 L nasal cannula with oxygen saturation 96%. Right pleural chest tube to continuous wall suction, minimal serous drainage, no air leak present. 2 left pleural chest tubes present to continuous wall suction, minimal serosanguineous drainage present, positive air leaks in both chest tubes, intermittent in the tube placed on 10/26, continuous in the tube placed on 10/28. - Cardiovascular Details: S1, S2 present. Regular rate and rhythm, sinus rhythm on telemetry. Palpable peripheral pulses bilaterally. No edema present. No calf pain or tenderness noted. SCDs present. Left subclavian triple-lumen central line present. - Gastrointestinal Gastrointestinal Comment(s): Abdomen soft, nontender, nondistended. Active bowel sounds present 4 quadrants. Tolerating liquids. - Genitourinary Genitourinary Comment(s): Ribera present draining clear, yellow urine. Urine output 100-175 mL/h overnight. - Integumentary Integumentary Comment(s): Skin is warm and dry with evidence of good perfusion. - Neurologic Neurologic: Present: CNII-XII intact - Musculoskeletal Musculoskeletal: Present: generalized weakness - Psychiatric Psychiatric: Present: A&O x's 3, appropriate affect, intact judgment & insight - Allied health notes Allied health notes reviewed: nursing - Labs CBC & Chem 7: 10/31/18 05:30 10/31/18 05:30 Labs: Abnormal Lab Results - Last 24 Hours (Table) 10/30/18 10/30/18 10/30/18 Range/Units 08:16 11:06 12:33 WBC (3.8-10.6) k/uL RBC (3.80-5.40) m/uL Hgb (11.4-16.0) gm/dL Hct (34.0-46.0) % RDW (11.5-15.5) % Neutrophils # (1.3-7.7) k/uL Lymphocytes # (1.0-4.8) k/uL ABG pH 7.47 H (7.35-7.45) ABG pO2 79 L (83-108) mmHg ABG HCO3 28 H 27 H (21-25) mmol/L ABG Total CO2 29 H 28 H (19-24) mmol/L ABG O2 Saturation 98.1 H 98.1 H (94-97) % Carbon Dioxide (22-30) mmol/L BUN (7-17) mg/dL Glucose (74-99) mg/dL POC Glucose (mg/dL) 166 H (75-99) mg/dL 10/30/18 10/30/18 10/31/18 Range/Units 18:18 21:24 05:30 WBC 13.1 H (3.8-10.6) k/uL RBC 3.27 L (3.80-5.40) m/uL Hgb 9.4 L (11.4-16.0) gm/dL Hct 29.6 L (34.0-46.0) % RDW 16.1 H (11.5-15.5) % Neutrophils # 11.9 H (1.3-7.7) k/uL Lymphocytes # 0.8 L (1.0-4.8) k/uL ABG pH (7.35-7.45) ABG pO2 (83-108) mmHg ABG HCO3 (21-25) mmol/L ABG Total CO2 (19-24) mmol/L ABG O2 Saturation (94-97) % Carbon Dioxide (22-30) mmol/L BUN (7-17) mg/dL Glucose (74-99) mg/dL POC Glucose (mg/dL) 125 H 138 H (75-99) mg/dL 10/31/18 10/31/18 Range/Units 05:30 06:55 WBC (3.8-10.6) k/uL RBC (3.80-5.40) m/uL Hgb (11.4-16.0) gm/dL Hct (34.0-46.0) % RDW (11.5-15.5) % Neutrophils # (1.3-7.7) k/uL Lymphocytes # (1.0-4.8) k/uL ABG pH (7.35-7.45) ABG pO2 (83-108) mmHg ABG HCO3 (21-25) mmol/L ABG Total CO2 (19-24) mmol/L ABG O2 Saturation (94-97) % Carbon Dioxide 32 H (22-30) mmol/L BUN 20 H (7-17) mg/dL Glucose 136 H (74-99) mg/dL POC Glucose (mg/dL) 132 H (75-99) mg/dL Microbiology - Last 24 Hours (Table) 10/26/18 16:28 Blood Culture - Preliminary Blood No Growth after 96 hours 10/28/18 05:30 Gram Stain - Final Sputum Sputum Culture - Final Tish albicans - Imaging and Cardiology Chest x-ray: image reviewed Assessment and Plan (1) Failure to wean from mechanical ventilation Current Visit: Yes Status: Acute Code(s): Z99.11 - DEPENDENCE ON RESPIRATOR [VENTILATOR] STATUS SNOMED Code(s): 171875963 (2) Acute exacerbation of chronic obstructive airways disease Current Visit: Yes Status: Acute Code(s): J44.1 - CHRONIC OBSTRUCTIVE PULMONARY DISEASE W (ACUTE) EXACERBATION SNOMED Code(s): 145180817 (3) Bilateral pneumothorax Current Visit: Yes Status: Acute Code(s): J93.9 - PNEUMOTHORAX, UNSPECIFIED SNOMED Code(s): 07116832 Plan: 1. The patient was successfully extubated. No plans for trach and PEG placement. 2. Continued medical management per primary care service, pulmonology. 3. GI/DVT prophylaxis. 4. Will sign off the case. Please call us with any further questions or future surgical needs. Time with Patient: Less than 30
--- NOTE | 2018-10-31 08:13 | XR ---
EXAMINATION TYPE: XR chest 1V portable DATE OF EXAM: 10/31/2018 Comparison: 10/30/2018 Clinical History: 58-year-old female Tube placement Findings: ET tube removed in the interval. Left subclavian CVC tip at the cavoatrial junction. 2 left-sided carla st tubes and one right-sided chest tube remain in place. Relative upper lung lucency suggest underlyi ng emphysema. Continued small pleural effusions with adjacent opacity. Old healed right-sided rib fra cture deformities. No appreciable pneumothorax. Subcutaneous emphysema along the left chest wall. Impression: 1. Two chest tubes on the left and one chest tube on the right. No appreciable pneumothorax. Relative upper lung lucency suggesting underlying emphysema. 2. Continued small pleural effusions with adjacent atelectasis or consolidation.
[2018-10-31] MEDS: PANTOPRAZOLE 40 MG/10 ML VIAL IV SCH (08:16)
[2018-10-31] MEDS: INSULIN ASPART 100 UNIT/ML 1 ML 10 ML VIAL SQ SCH ×4 (08:17→23:40)
[2018-10-31] MEDS: METOPROLOL TARTRATE 25 MG TAB PO SCH ×2 (08:17→21:15)
--- NOTE | 2018-10-31 09:06 | P.CONS ---
History of Present Illness - Reason for Consult Consult date: 10/31/18 Humira guidance Requesting physician: Amadeo Sanchez - Chief Complaint Severe respiratory distress - History of Present Illness 58-year-old female well-known to Dr. Bonnie Verma service with a history of Crohn's ileitis status post coloproctectomy with ileostomy 30+ years ago maintained on Humira for several years, chronic anemia, severe COPD admitted with severe respiratory distress brief cardiac arrest responded epinephrine with bilateral pneumothorax status post chest tube insertion thoravent. Consultation requested for Humira guidance. Patient receives Humira every 2 weeks. White count 13.1. Hemoglobin 9.4. Platelet 233. INR 1.0. LFTs unremarkable. Afebrile. Review of Systems Obtained from medical records nursing staff Constitutional: Denies fever, chills, sweats, weight gain, or loss. HEENT: Negative for migraines, blurred vision or loss, earaches, drainage, tinnitus, oral mucosal lesions, dysphagia, or odynophagia. CARDIAC: Negative for chest pain, arrhythmias, or palpitation. RESPIRATORY: Chronic shortness of breath severe COPD. Admitted with severe respiratory distress. GI: See HPI for pertinent findings. : Negative for hematuria, urgency, frequency, polyuria, or dysuria. GYNc: Negative vaginal discharge. MUSCULOSKELETAL: History of fibromyalgia. NEUROLOGIC: Negative for stroke or TIA. ENDOCRINE: Negative for thyroid problems. SKIN: Negative for rash or itching. PSYCHIATRIC: History of anxiety depression. ROS unobtainable: due to mental status Past Medical History Past Medical History: COPD, Fibromyalgia, GERD/Reflux, GI Bleed, Hyperlipidemia , Hypertension, Osteoarthritis (OA), Pneumonia, Syncope Additional Past Medical History / Comment(s): in past took meds for high blood pressure.COPD-02 3 liters n/c atc, crohn's, bowel obstructions, lower GI bleeds , hiatal hernia, osteoporosis, arthritis multiple joints, seasonal allergies, right-sided pneumothorax x2; ventilator 07/24/18 - transfer from [facility] r/t chinolas History of Any Multi-Drug Resistant Organisms: None Reported Past Surgical History: Breast Surgery, Cholecystectomy, Hernia Repair, Hysterectomy, Orthopedic Surgery Additional Past Surgical History / Comment(s): Multiple bowel surgeries including total colectomy/ileostomy, ileostomy moved/repaired, R tube and R ovary removed due tectopic , total hysterectomy, leep procedure, laparoscopy for endometriosis, L breast lumpectomy-benign, r breast core bx- benign, EGD/colonoscopies. Right-sided Thora-vent placement May 09 and May 19. Eye surgery bilateral,arthroscopic knee surgery on he right due to ACL and Maniscal tear. past ventilation,( trach and peg tube-since removed) Past Anesthesia/Blood Transfusion Reactions: No Reported Reaction Smoking Status: Former smoker - Past Family History Mother Family Medical History: Cancer, COPD, Hypertension Additional Family Medical History / Comment(s): Mother at age 83 from COPD and osteoarthritis and had skin cancer. Father Family Medical History: Cancer, CVA/TIA, Dementia, Diabetes Mellitus Additional Family Medical History / Comment(s): Father is 90yrs old. Brother(s) Family Medical History: Cancer Additional Family Medical History / Comment(s): Patient had 5 brothers and one of them from melanoma. Sister(s) History Unknown: Yes Family Medical History: No Reported History Additional Family Medical History / Comment(s): Patient has one sister. Patient has no kids. Medications and Allergies Home Medications Medication Instructions Recorded Confirmed Type Adalimumab [Humira Pen] 40 mg SQ TU 06/21/14 10/26/18 History Latanoprost Ophth [Xalatan 0.005%] 1 drop BOTH EYES DAILY 05/21/17 10/26/18 History Cyanocobalamin [Vitamin B-12 1,000 mcg SQ Q30D 07/24/18 10/26/18 History Injection] Dicyclomine [Bentyl] 10 mg PO TID 07/24/18 10/26/18 History Ondansetron [Zofran] 4 mg PO Q6H PRN 07/24/18 10/26/18 History Albuterol Nebulized [Ventolin 2.5 mg INHALATION RT-TID PRN 09/09/18 10/26/18 History Nebulized] Ipratropium-Albuterol Nebulize 3 ml INHALATION RT-Q8H 09/09/18 10/26/18 History [Duoneb 0.5 mg-3 mg/3 ml Soln] Loperamide [Imodium] 2 mg PO Q6H PRN 09/09/18 10/26/18 History Budesonide 1 mg INHALATION RT-BID 09/27/18 10/26/18 History Gabapentin [Neurontin] 300 mg PO TID 09/27/18 10/26/18 History HYDROcodone/APAP 10-325MG [[place] 1 tab PO Q4H PRN 09/27/18 10/26/18 History 10-325] Nicotine Polacrilex [Nicorette] 4 mg BUCCAL Q6H PRN 09/27/18 10/26/18 History Opium Tincture 10mg/1ml 20 mg PO QID PRN 09/27/18 10/26/18 History Colchicine [Colcrys] 0.6 mg PO DAILY #21 each 10/16/18 10/26/18 Rx DULoxetine HCL [Cymbalta] 30 mg PO BID #60 capsule. 10/16/18 10/26/18 Rx Furosemide [Lasix] 20 mg PO DAILY #0 10/16/18 10/26/18 Rx LORazepam [Ativan] 0.25 mg PO TID 3 Days #5 tab 10/16/18 10/26/18 Rx Melatonin 15 mg PO HS tablet 10/16/18 10/26/18 Rx Metoprolol Tartrate [Lopressor] 50 mg PO BID #60 tab 10/16/18 10/26/18 Rx Nystatin 100,000 Unit/ml Susp 500,000 unit PO QID #120 ml 10/16/18 10/26/18 Rx [Mycostatin Oral Susp] Potassium Chloride ER [K-Dur 20] 10 meq PO DAILY #0 10/16/18 10/26/18 Rx Verapamil [Isoptin] 40 mg PO TID #90 tab 10/16/18 10/26/18 Rx busPIRone HCl [Buspar] 10 mg PO TID #90 tab 10/16/18 10/26/18 Rx predniSONE See Taper PO DIRECTED 10/26/18 10/26/18 History Allergies Allergy/AdvReac Type Severity Reaction Status Date / Time Iodinated Contrast- Oral and Allergy Anaphylaxis Verified 10/26/18 15:49 IV Dye pregabalin [From Lyrica] Allergy Unknown Verified 10/26/18 15:49 rofecoxib [From Vioxx] Allergy Unknown Verified 10/26/18 15:49 Sulfa (Sulfonamide Allergy Rash/Hives Verified 10/26/18 15:49 Antibiotics) aspirin AdvReac Internal Verified 10/26/18 15:49 Bleeding timolol [Timolol] AdvReac Nausea & Verified 10/26/18 15:49 Vomiting Physical Exam Vitals: Vital Signs Temp Pulse Resp BP Pulse Ox 10/31/18 07:00 96 18 138/79 95 10/31/18 06:00 92 18 138/83 96 10/31/18 05:00 112 H 16 140/83 95 10/31/18 04:00 98.1 F 123 H 18 160/86 95 10/31/18 03:35 95 10/31/18 03:25 89 10/31/18 03:00 110 H 18 135/86 95 10/31/18 02:00 88 16 142/83 97 10/31/18 01:00 121 H 18 142/83 95 10/31/18 00:00 98.1 F 116 H 18 147/91 95 10/30/18 23:42 95 10/30/18 23:39 18 10/30/18 23:31 90 10/30/18 23:00 124 H 18 137/90 97 10/30/18 22:00 117 H 18 145/88 97 10/30/18 21:00 123 H 18 145/92 96 10/30/18 20:13 142 H 10/30/18 20:03 134 H 10/30/18 20:02 134 H 10/30/18 20:00 97.7 F 125 H 18 154/90 99 10/30/18 19:52 124 H 10/30/18 19:00 122 H 20 160/97 95 10/30/18 18:00 126 H 19 148/91 96 10/30/18 17:00 122 H 23 152/89 96 10/30/18 16:00 98.0 F 117 H 22 143/111 98 10/30/18 15:57 123 H 10/30/18 15:45 109 H 10/30/18 15:00 114 H 18 153/90 98 10/30/18 14:00 109 H 23 139/86 96 10/30/18 13:00 110 H 23 152/88 96 10/30/18 12:00 98.1 F 125 H 22 150/94 96 10/30/18 11:25 118 H 10/30/18 11:11 122 H 10/30/18 11:00 118 H 19 149/95 97 10/30/18 10:00 72 16 108/73 98 10/30/18 09:00 79 17 119/73 97 Intake and Output 10/30/18 10/31/18 10/31/18 22:59 06:59 14:59 Intake Total 600 644.417 75 Output Total 1085 885 40 Balance -485 -240.583 35 Intake: IV 600 600 75 Sodium Chloride 0.45% 1, 600 600 75 000 ml @ 75 mls/hr IV . [id number] [facility]U Rx#:[id number] Intake, IV Titration 44.417 Amount fentaNYL (PF) 2,500 mcg 44.417 In Sodium Chloride 0.9% 200 ml @ 25 MCG/HR 2.5 mls/hr IV .Q24H MEENU Rx#: [id number] Output: Chest Tube Drainage 55 Chest Tube Left Lateral 55 Chest Urine 1030 885 40 Other: Voiding Method Indwelling Catheter Indwelling Catheter Weight 63 kg General appearance: The patient is alert, oriented, in no acute distress. HET: Head is normocephalic and atraumatic. Pupils are equal and reactive. Oropharynx is clear without lesions. Neck: Supple without lymphadenopathy. Trachea midline. Heart: S1 S2. Regular rate and rhythm. Lungs: No crackles or wheezes are heard. Abdomen: Soft, nontender, nondistended with bowel sounds. No peritoneal signs. No palpable organomegaly or masses. Extremities: Normal skin color and turgor. No cyanosis, rash, ulceration, clubbing, or edema. Radial and pedal pulses are 2/4 bilaterally. Neurological: No focal deficits. Strength and sensation are grossly intact. Results CBC & Chem 7: 10/31/18 05:30 10/31/18 05:30 Labs: Abnormal Lab Results - Last 24 Hours (Table) 10/30/18 10/30/18 10/30/18 Range/Units 08:16 11:06 12:33 WBC (3.8-10.6) k/uL RBC (3.80-5.40) m/uL Hgb (11.4-16.0) gm/dL Hct (34.0-46.0) % RDW (11.5-15.5) % Neutrophils # (1.3-7.7) k/uL Lymphocytes # (1.0-4.8) k/uL ABG pH 7.47 H (7.35-7.45) ABG pO2 79 L (83-108) mmHg ABG HCO3 28 H 27 H (21-25) mmol/L ABG Total CO2 29 H 28 H (19-24) mmol/L ABG O2 Saturation 98.1 H 98.1 H (94-97) % Carbon Dioxide (22-30) mmol/L BUN (7-17) mg/dL Glucose (74-99) mg/dL POC Glucose (mg/dL) 166 H (75-99) mg/dL 10/30/18 10/30/18 10/31/18 Range/Units 18:18 21:24 05:30 WBC 13.1 H (3.8-10.6) k/uL RBC 3.27 L (3.80-5.40) m/uL Hgb 9.4 L (11.4-16.0) gm/dL Hct 29.6 L (34.0-46.0) % RDW 16.1 H (11.5-15.5) % Neutrophils # 11.9 H (1.3-7.7) k/uL Lymphocytes # 0.8 L (1.0-4.8) k/uL ABG pH (7.35-7.45) ABG pO2 (83-108) mmHg ABG HCO3 (21-25) mmol/L ABG Total CO2 (19-24) mmol/L ABG O2 Saturation (94-97) % Carbon Dioxide (22-30) mmol/L BUN (7-17) mg/dL Glucose (74-99) mg/dL POC Glucose (mg/dL) 125 H 138 H (75-99) mg/dL 10/31/18 10/31/18 Range/Units 05:30 06:55 WBC (3.8-10.6) k/uL RBC (3.80-5.40) m/uL Hgb (11.4-16.0) gm/dL Hct (34.0-46.0) % RDW (11.5-15.5) % Neutrophils # (1.3-7.7) k/uL Lymphocytes # (1.0-4.8) k/uL ABG pH (7.35-7.45) ABG pO2 (83-108) mmHg ABG HCO3 (21-25) mmol/L ABG Total CO2 (19-24) mmol/L ABG O2 Saturation (94-97) % Carbon Dioxide 32 H (22-30) mmol/L BUN 20 H (7-17) mg/dL Glucose 136 H (74-99) mg/dL POC Glucose (mg/dL) 132 H (75-99) mg/dL Microbiology - Last 24 Hours (Table) 10/26/18 16:28 Blood Culture - Preliminary Blood No Growth after 96 hours 10/28/18 05:30 Gram Stain - Final Sputum Sputum Culture - Final Tish albicans Assessment and Plan (1) Crohn's ileitis Narrative/Plan: 58-year-old female with a history of long-standing Crohn's ileitis coloproctectomy with ileostomy maintain an biologic therapy several years, admitted with severe COPD admitted with severe respiratory distress brief episode of cardiac arrest status post successful resuscitation with epinephrine. Status post bilateral chest tube insertion for bilateral pneumothorax. Current Visit: Yes Status: Chronic Code(s): K50.00 - CROHN'S DISEASE OF SMALL INTESTINE WITHOUT COMPLICATIONS SNOMED Code(s): 31672744 (2) Bilateral pneumothorax Current Visit: Yes Status: Acute Code(s): J93.9 - PNEUMOTHORAX, UNSPECIFIED SNOMED Code(s): 52165435 (3) Cardiopulmonary arrest with successful resuscitation Current Visit: Yes Status: Acute Code(s): I46.9 - CARDIAC ARREST, CAUSE UNSPECIFIED SNOMED Code(s): 103064552 Plan: 1. From a GI standpoint continue with Humira every 2 weeks this can be restarted after discharge however patient is verbalizing she does not want to continue Humira and would like to speak with Dr. Verma about this in follow-up GI visit scheduled appointment later this month. Presently receiving IV steroids. Symptomatic supportive measures. Thank you for this kind referral and the opportunity to participate in the care of your patient. This consultation was discussed with Dr. Almanzar. The impression and plan of care have been directed as dictated.
[2018-10-31] MEDS: BUDESONIDE 1 MG/2 ML NEBU INHALATION SCH ×2 (09:21→19:22)
[2018-10-31] MEDS: FORMOTEROL FUMARATE 20 MCG/2 ML NEBU INHALATION SCH ×2 (09:21→19:22)
[2018-10-31] MEDS ORDERED: METOPROLOL TARTRATE 25 MG TAB PO ONE (10:30)
[2018-10-31] MEDS: PANTOPRAZOLE 40 MG TABLET PO SCH (11:06)
[2018-10-31] MEDS: predniSONE 10 MG TAB PO SCH (11:07)
[2018-10-31] MEDS: ALPRAZolam 0.25 MG TAB PO PRN (11:15)
[2018-10-31 12:14] LABS: Glucose,Whole Blood 123 mg/dL (75-99)
[2018-10-31] MEDS ORDERED: OPIUM TINCTURE PO PRN (12:56)
[2018-10-31] MEDS ORDERED: LOPERAMIDE 2 MG CAP PO PRN (12:56)
--- NOTE | 2018-10-31 12:56 | P.PN ---
Subjective Progress Note Date: 10/31/18 This is a 58-year-old female who follows with Dr. James as her primary care physician. She has a history of hyperlipidemia, hypothyroidism, anemia, fibromyalgia, anxiety/depression, COPD. She presented to the emergency department with dyspnea. Patient was at home when she experienced rest for distress and called EMS. In route to the hospital she was put on a BiPAP due to minimal responsiveness. Upon arrival to the emergency department her initial vital signs were tachycardic with no measurable pulse oximetry and she was hypotensive. Patient was positive for JVD, 1 view chest was obtained for a positive pneumothorax 50% on the left and a possible pneumothorax on the right. A chest tube was placed on the left and patient had failure to respond to treatment. At which CPR was initiated by ACLS protocol for approximately 1 minute. A central line was placed in the left subclavian vein during the code. Patient was intubated. An repeat chest x-ray showed a pneumothorax on the right and a right-sided 24-Jamaican chest tube was placed. Patient's vital signs improved and she was transported to ICU for continuation of care. Patient presents intubated at this time. She is awake and able to answer questions appropriately. Her current vent setting assist control of 16, tidal volume 350 , FiO2 at 35% and a PEEP of 5. Her morning blood gases reveal a pO2 of 85 pCO2 of 41 pH 7.38. H&H is currently sedated with 30 mics per KG per minute of debridement and, fentanyl drip at 1 MCG per KG per hour. Patient is able to follow commands she is able to move all 4 extremities. Her white count is 7.6, hemoglobin of 10, creatinine 0.6. 10/28: Patient continues to be sedated and intubated. Chest x-ray this morning showed significant progression of left-sided pneumothorax estimated at 50%. Left lower lobe pleural catheter appears unchanged in position. It increased subcutaneous air identified. Subsequently the patient underwent a another chest tube insertion on the left side to help relieve the pneumothorax. Repeat checks x-ray showed a persistent left apical pneumothorax estimated at 15-20%. A new left-sided chest tube place. Patient is receiving tube feedings through NG tube at this time. She continues to be on propofol at 65 mics per KG per minute and fentanyl drip at 1 nury per KG per hour. Patient also is getting Dilaudid and Ray as needed for pain. Her brought in opium to help with abdominal discomfort. Vent settings are unchanged the vent setting assist control 16, tidal volume of 350, FiO2 at 35%, and a PEEP of 5. Patient's urinary output is 50-70 mL per hour. Discussed findings with at the bedside in the plan to continue with sedation and intubation to rest the lungs and we will reassess tomorrow for possible weaning. states that this happened a few months ago where she was on prolonged intubation due to her lungs not recovering. 10/29: Patient continues to be sedated and intubated. Chest x-ray does show improvement to bilateral pneumothorax and [address]. Patient has been tachycardic overnight with a rate in the 130s. Patient grimaces in pain and withdraws. Patient continue to see tube feedings through NG tube. She continues to be on propofol and fentanyl for sedation. Patient was on Nimbex overnight however that has been DC'd. Vent settings are unchanged with the vent assist control 16, tidal volume 350, FiO2 at 35%, and a PEEP of 5. Patient 's urinary output continues to be 50-70 ML's per hour. Discussed case with pulmonology and consult for trach and PEG tube is in place. Pulmonology does not feel the patient will be successful in weaning. 10/30/18: Patient is sitting up in bed extubated. Patient was successfully weaned this morning. She is alert and orientated 3 and able to answer questions appropriately. Patient is complaining of pain to the chest due to the 3 chest tubes that are in place. Patient does have a history of Crohn's and discussed the medication she normally takes for them including Humira which we will hold at this time. Patient continues to be on sentinel drip for pain she also is receiving Dilaudid as needed for breakthrough pain. CBC 11.3, hemoglobin 8.7, potassium 4.7 BUN 28 creatinine 0.5. 10/31: Patient remains in the intensive care unit. She was successfully extubated yesterday and is currently pulse ox is 96% on 4 L nasal cannula. White count is 13.1, hemoglobin 9.4, CO2 is 32, electrolytes within normal limits, creatinine 0.54. Sputum cultures positive for Tish albicans. Urine culture finalized with no growth and blood culture showing no growth after 96 hours. Repeat chest x-ray shows 2 chest tubes on the left and one on the right. No appreciable pneumothorax. Relative upper lung lucency suggesting underlying emphysema. Continue small pleural effusions with adjacent atelectasis or consolidations. Cardiothoracic surgery signing off the case is no plan is for trach and PEG placement. Patient remains with 2 left-sided chest tubes in 1 right-sided chest tube. Pulmonary is planning to maintain chest tubes. Solu-Medrol transitioned to prednisone. 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 Ribera catheter is in place draining adequate amount of urine. Ileostomy with dark brown stool. Patient has been seen by GI with recommendations to continue Humira every 2 weeks and can be restarted after discharge the patient had verbalized that she did not want to continue on Humira. Patient is to follow-up with Dr. Verma in the office as scheduled. Patient currently has [facility] home care in place. PT to start working with patient today. [facility] Home medications will be reviewed. Review Of Systems: Constitutional: Pain to the chest due to chest tube No fever, no chills, no night sweats. No weight change. No weakness, fatigue or lethargy. No daytime sleepiness. EENT: No headache. No blurred vision or double vision, no loss of vision. No loss of Hearing, no ringing in the ears, no dizziness. No nasal drainage or congestion. No epistaxis. No sore throat. Lungs: No shortness of breath, cough, no sputum production. No wheezing. Cardiovascular: No chest pain, no lower extremity edema. No palpitations. No paroxysmal nocturnal dyspnea. No orthopnea. No lightheadedness or dizziness. No syncopal episodes. Abdominal: no abdominal discomfort. No nausea, vomiting. no diarrhea. No constipation. No bloody or tarry stools. improved loss of appetite. Genitourinary: No dysuria, increased frequency, urgency. No urinary retention. Musculoskeletal: No myalgias. No muscle weakness, no gait dysfunction, no frequent falls. No back pain. No neck pain. Integumentary: No wounds, no lesions. No rash or pruritus. No unusual bruising. No change in hair or nails. Neurologic: No aphasia. No facial droop. No change in mentation. No head injury. No headache. No paralysis. No paresthesia. Psychiatric: No depression. No anxiety. No mood swings. Endocrine: No abnormal blood sugars. No weight change. Objective - Vital Signs Vital signs: Vital Signs Temp 98.3 F 10/31/18 08:00 Pulse 96 10/31/18 08:00 Resp 18 10/31/18 08:00 BP 145/88 10/31/18 08:00 Pulse Ox 95 10/31/18 08:00 Intake & Output 10/30/18 10/31/18 10/31/18 18:59 06:59 18:59 Intake Total 1425.936 944.417 400 Output Total 1475 1435 139 Balance -49.064 -490.583 261 Weight 63 kg Intake: IV 1000 900 150 Magnesium Sulfate-D5w Pmx 100 1 gm In Dextrose/Water 1 100ml.bag @ 100 mls/hr IVPB Q1H [facility] Rx#: [id number] Sodium Chloride 0.45% 1, 900 900 150 000 ml @ 75 mls/hr IV . [id number] [facility] Rx#:[id number] Intake, IV Titration 235.936 44.417 Amount Propofol 1,000 mg In 138.786 Empty Bag 1 bag @ Titrate IV .Q0M [facility] Rx#: [id number] fentaNYL (PF) 2,500 mcg 97.150 44.417 In Sodium Chloride 0.9% 200 ml @ 25 MCG/HR 2.5 mls/hr IV .Q24H [facility]U Rx#: [id number] Oral 250 Tube Feeding 160 Other 30 Output: Chest Tube Drainage 55 24 Chest Tube Left Lateral 55 20 Chest Chest Tube Left Mid- 4 Axillary Chest Chest Tube Right Mid- 0 Axillary Chest Urine 1320 1435 115 Stool 100 Other: Voiding Method Indwelling Catheter Indwelling Catheter - Exam General appearance: Present: average body habitus, cooperative, no acute distress - EENT Eyes: Present: anicteric sclerae, EOMI, PERRLA ENT: Present: hearing grossly normal, NA/AT - Neck Neck: Present: normal ROM. Absent: lymphadenopathy - Respiratory Respiratory: bilateral: diminished, wheezing, no accessory muscle usage negative : dullness, rales, rhonchi, prolonged expiration, prolonged inspiration, other - Cardiovascular Rhythm: regular Heart sounds: normal: S1, S2 Abnormal Heart Sounds: Absent: systolic murmur, diastolic murmur, rub, S3 Gallop , S4 Gallop, click, other - Gastrointestinal General gastrointestinal: Present: normal bowel sounds, soft. Absent: tenderness - Integumentary Integumentary: Present: pale - Neurologic Neurologic: Present: CNII-XII intact - Musculoskeletal Musculoskeletal: Present: generalized weakness, strength equal bilaterally - Psychiatric Psychiatric: Present: A&O x's 3, appropriate affect, intact judgment & insight - Labs CBC & Chem 7: 10/31/18 05:30 10/31/18 05:30 Labs: Abnormal Lab Results - Last 24 Hours (Table) 10/30/18 10/30/18 10/30/18 Range/Units 11:06 12:33 18:18 WBC (3.8-10.6) k/uL RBC (3.80-5.40) m/uL Hgb (11.4-16.0) gm/dL Hct (34.0-46.0) % RDW (11.5-15.5) % Neutrophils # (1.3-7.7) k/uL Lymphocytes # (1.0-4.8) k/uL ABG pH 7.47 H (7.35-7.45) ABG pO2 79 L (83-108) mmHg ABG HCO3 27 H (21-25) mmol/L ABG Total CO2 28 H (19-24) mmol/L ABG O2 Saturation 98.1 H (94-97) % Carbon Dioxide (22-30) mmol/L BUN (7-17) mg/dL Glucose (74-99) mg/dL POC Glucose (mg/dL) 166 H 125 H (75-99) mg/dL 10/30/18 10/31/18 10/31/18 Range/Units 21:24 05:30 05:30 WBC 13.1 H (3.8-10.6) k/uL RBC 3.27 L (3.80-5.40) m/uL Hgb 9.4 L (11.4-16.0) gm/dL Hct 29.6 L (34.0-46.0) % RDW 16.1 H (11.5-15.5) % Neutrophils # 11.9 H (1.3-7.7) k/uL Lymphocytes # 0.8 L (1.0-4.8) k/uL ABG pH (7.35-7.45) ABG pO2 (83-108) mmHg ABG HCO3 (21-25) mmol/L ABG Total CO2 (19-24) mmol/L ABG O2 Saturation (94-97) % Carbon Dioxide 32 H (22-30) mmol/L BUN 20 H (7-17) mg/dL Glucose 136 H (74-99) mg/dL POC Glucose (mg/dL) 138 H (75-99) mg/dL 10/31/18 Range/Units 06:55 WBC (3.8-10.6) k/uL RBC (3.80-5.40) m/uL Hgb (11.4-16.0) gm/dL Hct (34.0-46.0) % RDW (11.5-15.5) % Neutrophils # (1.3-7.7) k/uL Lymphocytes # (1.0-4.8) k/uL ABG pH (7.35-7.45) ABG pO2 (83-108) mmHg ABG HCO3 (21-25) mmol/L ABG Total CO2 (19-24) mmol/L ABG O2 Saturation (94-97) % Carbon Dioxide (22-30) mmol/L BUN (7-17) mg/dL Glucose (74-99) mg/dL POC Glucose (mg/dL) 132 H (75-99) mg/dL Microbiology - Last 24 Hours (Table) 10/26/18 16:28 Blood Culture - Preliminary Blood No Growth after 96 hours 10/28/18 05:30 Gram Stain - Final Sputum Sputum Culture - Final Tish albicans Assessment and Plan Plan: #1 Acute hypoxic respiratory failure secondary to acute exacerbation of severe oxygen dependent chronic obstructive pulmonary disease, complicated by bilateral pneumothorax. Status post bilateral chest tube placements. Patient has been successfully extubated. Continue Dilaudid 1 mg every 3 hours as needed for break through pain and Ray as needed. Continue DuoNeb treatments every 4 hours scheduled and as needed, Pulmicort 1 mg twice daily, Perforomist twice daily, Solu-Medrol transitioned to prednisone. Repeat chest x-ray, and labs in the morning. #2 Brief cardiac arrest secondary to above responded to epinephrine. #3 Severe advanced chronic obstructive pulmonary disease and bullous emphysema with underlying FEV1 value 36% of predicted. Both oxygen and steroid dependent. Continue Pulmicort, continue IV Solu-Medrol, #4 History of prolonged respiratory failure requiring intubation mechanical ventilation with subsequent tracheostomy and PEG tube placements and [facility]. #5 bilateral pneumothorax related to severe advanced stages of COPD and bullous emphysema Chest tubes in place. Repeat chest x-ray #6 Previous history of right-sided pneumothorax 2. #7 Chronic left upper lobe inflammatory opacity. #8 Hyperlipidemia. #9 Hypertension. Continue to monitor blood pressure #10 Chronic normocystic anemia, anemia of chronic disease. Monitor CBC #11 Fibromyalgia. Continue Dilaudid or Ray as needed #12 Generalized anxiety disorder and recurrent depression. #13 History of Crohn's. Consult gastroenterology. Continue opium. #14 GI prophylactics Protonix 40 mg IV daily #15 DVT prophylaxis heparin 5000 units subcu every 8 hours Discharge plan: Home with [facility]/subacute rehab Impression and plan of care have been directed as dictated by the signing physician. Gaby Rothman nurse practitioner acting as scribe for signing physician.
--- NOTE | 2018-10-31 15:44 | P.PN ---
Subjective Progress Note Date: 10/31/18 Principal diagnosis: Acute hypoxic respiratory failure secondary to COPD and bilateral pneumothoraces. This is a 58-year-old female patient who follows with Dr. James as her primary care physician. She has a history of hyperlipidemia, hypothyroidism, anemia, fibromyalgia, anxiety/depression. Chest has a history of severe oxygen- dependent bullous emphysema/COPD with FEV1 value of 36% of predicted and a chronic left upper lobe inflammatory opacity that was nonmalignant. She has a history of prolonged respiratory failure requiring mechanical ventilation and was subsequently [facility]. She had since been decannulated. She's had multiple admissions for COPD exacerbations most recently discharged from here on 10/16/2018. She was brought in by EMS to the emergency room yesterday with severe respiratory distress requiring initially BiPAP support. She was found to have bilateral pneumothorax and chest tubes were placed as well as a left thoravent. She had a brief cardiac arrest requiring epinephrine. She was subsequently intubated and placed on mechanical ventilator and transferred here to the intensive care unit. She is seen today in consultation with current vent settings assist- control of 16, tidal volume 350, FiO2 of 35% and a PEEP of 5. Morning blood gases reveal a P O2 of 85, pCO2 41, pH 7.38. Her measured airway resistance is currently 8.8. She is sedated on to prevent at 30 mcg/kg/m., Fentanyl drip at 1 mcg/kg per hour, 1.9 normal saline at 75 ML's per hour. She does follow simple commands. She is moving all fours. Cultures are pending. White count 7.6. Hemoglobin 10.0. Creatinine 0.69. She's been initiated and DuoNeb inhalations. Patient was reevaluated today on 10/29/2018, remains in the ICU on mechanical ventilation. Patient has been on same ventilator settings, tidal volume of 350 assist-control rate of 16 FiO2 of 35% and PEEP of 5. Patient remains on fentanyl drip, she is also on propofol drip, and both are basically maximized. Last night Dr. Meza placed the patient on Nimbex drip. However I have discontinued the Nimbex drip today, and I will try to control her agitation with fentanyl and propofol only. Patient continues to have left-sided chest tubes, and 1 right sided chest tube, all of them are showing a bit of a leak. Her ABG showed a pO2 of 120 pCO2 of 40 0 pH of 7.44. Basic metabolic profile is normal, WBC count is 10.9 hemoglobin is 9.2. Chest x-ray did show improvement in aeration of the right lung base with persistent left basilar opacity may represent mostly atelectasis or possibly pneumonia. No sizable pneumothorax is noted on both sides. Patient remains on multiple bronchodilators, and on Solu-Medrol. Today I discussed with the nurses and with the admitting physician that it would be best to consider tracheostomy and PEG tube placement since the patient is going to be almost extremely difficult to wean successfully. She had a similar episode in the past, and she did require [facility]. Patient was reevaluated today on 10/30/2018, remains on mechanical ventilation, still requiring a significant dose of propofol and fentanyl. I have attempted to cut down the fentanyl to 25 mg per hour, and I have cut down the propofol gradually until discontinued. Her ventilator settings were noted to be assist- control rate of 16 FiO2 of 35% tidal volume of 350 and PEEP of 5. Her usual dose of propofol has been about 55 g and the dose of fentanyl was 100 g per hour. After cutting down on both and stopping her up a fall, I was able to give the patient a decent trial of pressure support of 10 and CPAP. Patient looked great and better than expected her chest x-ray was looking better today, her follow-up ABG post half hour at least on pressure support and CPAP looked great, pO2 was 79 pCO2 was 37 pH was 7.47, hence I proceeded to extubating the patient. I felt this is hour window otherwise the patient may require tracheostomy as noted previously. The rest of the labs and the chest x-ray were all reviewed. Electrolytes were normal CBC was relatively normal except for hemoglobin of 8.7. Patient was reevaluated today on 10/31/2018, patient is off mechanical ventilation , she was weaned and extubated successfully yesterday. Patient continues to have significant amount of pain medications on board, continues to be tachycardic, sinus tachycardia rate is in the 130 and 140 range. Continues to have chest tubes on both sides, one the left side and one on the left side. I have adjusted all her medications today, switched most them to oral medication, and change Solu-Medrol to prednisone, added Xanax to control her anxiety, discontinued fentanyl yesterday, and she is presently on IV medication for pain control. Her chest x-ray is showing some improvement, however the patient continues to have leaks in both tubes on both sides. She is on nasal cannula, saturating quite well, seems to be generally weak, and quite tachycardic, extremely anxious and agitated becomes very emotional when discussing her clinical condition. All labs were reviewed WBC count is 13.1 hemoglobin is 9.4 electrolytes and renal profile are normal. Objective - Vital Signs Vital signs: Vital Signs Temp 98.5 F 10/31/18 12:00 Pulse 91 10/31/18 13:45 Resp 22 10/31/18 13:00 BP 147/104 10/31/18 13:00 Pulse Ox 98 10/31/18 13:00 Intake & Output 10/30/18 10/31/18 10/31/18 18:59 06:59 18:59 Intake Total 1425.936 106.573 5763 Output Total 1475 1435 938 Balance -49.064 -490.583 387 Weight 63 kg Intake: IV 1000 900 525 Magnesium Sulfate-D5w Pmx 100 1 gm In Dextrose/Water 1 100ml.bag @ 100 mls/hr IVPB Q1H [facility] Rx#: [id number] Sodium Chloride 0.45% 1, 900 900 525 000 ml @ 75 mls/hr IV . [id number] [facility] Rx#:[id number] Intake, IV Titration 235.936 44.417 Amount Propofol 1,000 mg In 138.786 Empty Bag 1 bag @ Titrate IV .Q0M [facility] Rx#: [id number] fentaNYL (PF) 2,500 mcg 97.150 44.417 In Sodium Chloride 0.9% 200 ml @ 25 MCG/HR 2.5 mls/hr IV .Q24H [facility]U Rx#: [id number] Oral 800 Tube Feeding 160 Other 30 Output: Chest Tube Drainage 55 123 Chest Tube Left Lateral 55 110 Chest Chest Tube Left Mid- 4 Axillary Chest Chest Tube Right Mid- 9 Axillary Chest Urine 1320 1435 815 Stool 100 Other: Voiding Method Indwelling Catheter Indwelling Catheter Indwelling Catheter - Exam GENERAL EXAM: Revealed a 58-year-old female, in bed, resting comfortably, on few liters nasal cannula. HEAD: Normocephalic. EYES: Normal reaction of pupils, equal size. NOSE: Clear with pink turbinates. THROAT: Oral endotracheal and gastric tube secured in place. No erythema or exudates. NECK: No masses, no JVD. Previous tracheostomy site scar. CHEST: No chest wall deformity. Bilateral chest tubes in place. 2 left-sided chest tubes were noted and 1 right-sided chest tube was also noted. Continues to have significant air leaks in both sides. LUNGS: Diminished breath sound bilaterally, no crackles or rhonchi or wheezes. No chest wall tenderness.. CVS: S1 and S2 normal with no audible murmur, regular rhythm. ABDOMEN: No hepatosplenomegaly, normal bowel sounds, no guarding or rigidity. SPINE: No scoliosis or deformity SKIN: No rashes CENTRAL NERVOUS SYSTEM: Alert and oriented 3, no gross focal neurologic deficit. EXTREMITIES: There is no peripheral edema. No clubbing, no cyanosis. Peripheral pulses are intact. Psychiatric: Anxious, at times emotional and tearful. - Labs CBC & Chem 7: 10/31/18 05:30 10/31/18 05:30 Labs: Abnormal Lab Results - Last 24 Hours (Table) 10/30/18 10/30/18 10/31/18 Range/Units 18:18 21:24 05:30 WBC 13.1 H (3.8-10.6) k/uL RBC 3.27 L (3.80-5.40) m/uL Hgb 9.4 L (11.4-16.0) gm/dL Hct 29.6 L (34.0-46.0) % RDW 16.1 H (11.5-15.5) % Neutrophils # 11.9 H (1.3-7.7) k/uL Lymphocytes # 0.8 L (1.0-4.8) k/uL Carbon Dioxide (22-30) mmol/L BUN (7-17) mg/dL Glucose (74-99) mg/dL POC Glucose (mg/dL) 125 H 138 H (75-99) mg/dL 10/31/18 10/31/18 10/31/18 Range/Units 05:30 06:55 12:02 WBC (3.8-10.6) k/uL RBC (3.80-5.40) m/uL Hgb (11.4-16.0) gm/dL Hct (34.0-46.0) % RDW (11.5-15.5) % Neutrophils # (1.3-7.7) k/uL Lymphocytes # (1.0-4.8) k/uL Carbon Dioxide 32 H (22-30) mmol/L BUN 20 H (7-17) mg/dL Glucose 136 H (74-99) mg/dL POC Glucose (mg/dL) 132 H 123 H (75-99) mg/dL Microbiology - Last 24 Hours (Table) 10/26/18 16:28 Blood Culture - Preliminary Blood No Growth after 96 hours 10/28/18 05:30 Gram Stain - Final Sputum Sputum Culture - Final Tish albicans Assessment and Plan Assessment: #1 Acute hypoxic respiratory failure secondary to acute exacerbation of severe oxygen dependent chronic obstructive pulmonary disease, complicated by bilateral pneumothorax. Status post 3 chest tube placements to on the left and one on the right. #2 Brief cardiac arrest secondary to above responded to epinephrine. #3 Severe advanced chronic obstructive pulmonary disease and bullous emphysema with underlying FEV1 value 36% of predicted. Both oxygen and steroid dependent. #4 History of prolonged respiratory failure requiring intubation mechanical ventilation with subsequent tracheostomy and PEG tube placements and [facility]. Subsequently decannulated. #5 Previous history of right-sided pneumothorax 2. #6 Chronic left upper lobe inflammatory opacity. #7 Hyperlipidemia. #8 Hypothyroidism. #9 Chronic normocystic anemia. #10 Fibromyalgia. #11 History of anxiety/depression with previous discontinuation of her prescribed medications. #12 successful extubation on 10/30/2018, patient seems to have tolerated the extubation well, however she still has a long way to go. Considering her severe emphysema and her chest tubes, and the ongoing leak in the chest tubes on both sides, patient will require to remain in the ICU. Plan: Continue present supportive care measures, continue to monitor in the ICU. I have discontinued her Solu-Medrol and switch her to oral prednisone. I will keep the chest tubes on suction on both sides. Continue antibiotics, bronchodilators, continue GI and DVT prophylaxis, consulted physical therapy to evaluate, advanced diet as tolerated patient remains quite ill, and no immediate plans to transfer the patient out of the ICU today or tomorrow. Again her overall prognosis remains extremely poor and guarded. I had a long discussion with the patient at bedside regarding her ongoing pulmonary issues and prognosis. We'll continue to follow. Critical care time is 32 minutes. Time with Patient: Greater than 30
[2018-10-31] MEDS: busPIRone HCl 10 MG TAB PO SCH ×2 (16:54→21:15)
[2018-10-31] MEDS: GABAPENTIN 300 MG CAP PO SCH ×2 (16:54→21:15)
[2018-10-31] MEDS: DICYCLOMINE 10 MG CAP PO SCH ×2 (16:54→21:15)
[2018-10-31 17:22] LABS: Glucose,Whole Blood 103 mg/dL (75-99)
[2018-10-31] MEDS: DULoxetine HCL 30 MG CAPSULE.DR PO SCH (21:14)
[2018-10-31] MEDS: MELATONIN 5 MG TABLET PO SCH (21:15)
[2018-10-31 21:40] LABS: Glucose,Whole Blood 104 mg/dL (75-99)
[2018-11-01] MEDS: HYDROmorphone 0.5 MG/0.5 ML SYRINGE IVP PRN ×6 (02:34→23:09)
[2018-11-01] MEDS: IPRATROPIUM-ALBUTEROL 3 ML NEB INHALATION SCH ×5 (03:05→21:07)
[2018-11-01 04:36] LABS: Anisocytosis Slight; Basophils % (A) 0 %; Eosinophils # (A) 0.1 k/uL (0-0.7); Eosinophils % (A) 1 %; HCT 30.7 % (34.0-46.0); HGB 9.6 gm/dL (11.4-16.0); Lymphocytes # (A) 2.6 k/uL (1.0-4.8); Lymphocytes % (A) 20 %; MCH 28.3 pg (25.0-35.0); MCHC 31.3 g/dL (31.0-37.0); MCV 90.5 fL (80.0-100.0); Mean Platelet Volume 6.7; Monocytes # (A) 0.4 k/uL (0-1.0); Monocytes % (A) 3 %; Neutrophils # (A) 9.8 k/uL (1.3-7.7); Neutrophils % (A) 75 %; Platelet Count 259 k/uL (150-450); RBC 3.39 m/uL (3.80-5.40); RDW 16.8 % (11.5-15.5); WBC 13.1 k/uL (3.8-10.6)
[2018-11-01 04:47] LABS: Anion Gap 2 mmol/L; Blood Urea Nitrogen 15 mg/dL (7-17); Carbon Dioxide 32 mmol/L (22-30); Chloride 100 mmol/L (98-107); Glucose 97 mg/dL (74-99); Magnesium 1.6 mg/dL (1.6-2.3); Phosphorus 3.4 mg/dL (2.5-4.5); Potassium 3.8 mmol/L (3.5-5.1); Sodium 134 mmol/L (137-145)
[2018-11-01] MEDS ORDERED: Potassium Replacement Protocol 1 EACH MISC MISCELLANE PRN (05:26)
[2018-11-01] MEDS: POTASSIUM CHLORIDE 10 MEQ in WATER FOR INJECTION 1 100ML.BAG IVPB SCH ×2 (06:05→07:08)
[2018-11-01] MEDS: MAGNESIUM SULFATE-D5W PMX 1 GM in DEXTROSE/WATER 1 100ML.BAG IVPB SCH ×2 (06:05→07:08)
[2018-11-01] MEDS: PANTOPRAZOLE 40 MG TABLET PO SCH (06:49)
[2018-11-01] MEDS: INSULIN ASPART 100 UNIT/ML 1 ML 10 ML VIAL SQ SCH ×4 (06:51→21:48)
[2018-11-01 07:02] LABS: Glucose,Whole Blood 109 mg/dL (75-99)
--- NOTE | 2018-11-01 08:13 | XR ---
EXAMINATION TYPE: XR chest 1V portable DATE OF EXAM: 11/01/2018 COMPARISON: 10/31/2018 HISTORY: Thoracostomy tube placement. Follow-up exam. TECHNIQUE: Single frontal view of the chest is obtained. FINDINGS: Again there is biapical lucency with no discrete residual pneumothorax seen. Curvilinear d ensity is noted between the ribs basis of ribs 5 and 6 on the right however lung markings are seen be yond this. The single right and 2 left thoracostomy tubes are relatively unchanged in position in com parison to the prior. Mediastinal rotation is secondary to patient rotation. Subacute posterior later al right rib fractures are seen within the mid thorax. Degree of left thoracic body wall subcutaneous emphysema is also similar to the prior. Left-sided PICC is unchanged in position. Cardiomediastinal silhouette is within normal limits. Right infrahilar linear probable atelectasis and left basilar ate lectasis are again seen. Trace pleural effusions blunt the costophrenic angles. IMPRESSION: Stable exam from the prior 10/31/2018. No visible residual pneumothoraces, however there r emains biapical lucency suggesting underlying COPD. Bibasilar atelectasis and left body wall subcutan eous emphysema are similar to the prior.
[2018-11-01] MEDS: METOPROLOL TARTRATE 50 MG TAB PO SCH (08:27)
[2018-11-01] MEDS: GABAPENTIN 300 MG CAP PO SCH ×3 (08:28→21:49)
[2018-11-01] MEDS: DICYCLOMINE 10 MG CAP PO SCH ×3 (08:28→21:49)
[2018-11-01] MEDS: predniSONE 10 MG TAB PO SCH (08:28)
[2018-11-01] MEDS: DULoxetine HCL 30 MG CAPSULE.DR PO SCH ×2 (08:28→21:49)
[2018-11-01] MEDS: busPIRone HCl 10 MG TAB PO SCH ×3 (08:30→21:49)
[2018-11-01] MEDS: COLCHICINE 0.6 MG EACH PO SCH (08:30)
[2018-11-01] MEDS: HEPARIN SODIUM,PORCINE 5,000 UNIT/ML 1 ML VIAL SQ SCH ×3 (08:31→23:50)
[2018-11-01] MEDS: HYDROcodone/APAP 10-325MG 1 EACH TAB PO PRN ×2 (08:31→17:09)
[2018-11-01] MEDS ORDERED: LATANOPROST 0.005% OPHTH DROPS 2.5 ML BTL BOTH EYES SCH (09:00)
[2018-11-01] MEDS: BUDESONIDE 1 MG/2 ML NEBU INHALATION SCH ×2 (09:46→21:07)
[2018-11-01] MEDS: FORMOTEROL FUMARATE 20 MCG/2 ML NEBU INHALATION SCH ×2 (09:46→21:07)
[2018-11-01 12:01] LABS: Glucose,Whole Blood 179 mg/dL (75-99)
--- NOTE | 2018-11-01 12:11 | P.PN ---
Subjective Progress Note Date: 11/01/18 Principal diagnosis: Acute hypoxic respiratory failure secondary to COPD and bilateral pneumothoraces. This is a 58-year-old female patient who follows with Dr. James as her primary care physician. She has a history of hyperlipidemia, hypothyroidism, anemia, fibromyalgia, anxiety/depression. Chest has a history of severe oxygen- dependent bullous emphysema/COPD with FEV1 value of 36% of predicted and a chronic left upper lobe inflammatory opacity that was nonmalignant. She has a history of prolonged respiratory failure requiring mechanical ventilation and was subsequently tr[facility] and [facility]. She had since been decannulated. She's had multiple admissions for COPD exacerbations most recently discharged from here on 10/16/2018. She was brought in by EMS to the emergency room yesterday with severe respiratory distress requiring initially BiPAP support. She was found to have bilateral pneumothorax and chest tubes were placed as well as a left thoravent. She had a brief cardiac arrest requiring epinephrine. She was subsequently intubated and placed on mechanical ventilator and transferred here to the intensive care unit. She is seen today in consultation with current vent settings assist- control of 16, tidal volume 350, FiO2 of 35% and a PEEP of 5. Morning blood gases reveal a P O2 of 85, pCO2 41, pH 7.38. Her measured airway resistance is currently 8.8. She is sedated on to prevent at 30 mcg/kg/m., Fentanyl drip at 1 mcg/kg per hour, 1.9 normal saline at 75 ML's per hour. She does follow simple commands. She is moving all fours. Cultures are pending. White count 7.6. Hemoglobin 10.0. Creatinine 0.69. She's been initiated and DuoNeb inhalations. Patient was reevaluated today on 10/29/2018, remains in the ICU on mechanical ventilation. Patient has been on same ventilator settings, tidal volume of 350 assist-control rate of 16 FiO2 of 35% and PEEP of 5. Patient remains on fentanyl drip, she is also on propofol drip, and both are basically maximized. Last night Dr. Meza placed the patient on Nimbex drip. However I have discontinued the Nimbex drip today, and I will try to control her agitation with fentanyl and propofol only. Patient continues to have left-sided chest tubes, and 1 right sided chest tube, all of them are showing a bit of a leak. Her ABG showed a pO2 of 120 pCO2 of 40 0 pH of 7.44. Basic metabolic profile is normal, WBC count is 10.9 hemoglobin is 9.2. Chest x-ray did show improvement in aeration of the right lung base with persistent left basilar opacity may represent mostly atelectasis or possibly pneumonia. No sizable pneumothorax is noted on both sides. Patient remains on multiple bronchodilators, and on Solu-Medrol. Today I discussed with the nurses and with the admitting physician that it would be best to consider tracheostomy and PEG tube placement since the patient is going to be almost extremely difficult to wean successfully. She had a similar episode in the past, and she did require [facility] and [facility]. Patient was reevaluated today on 10/30/2018, remains on mechanical ventilation, still requiring a significant dose of propofol and fentanyl. I have attempted to cut down the fentanyl to 25 mg per hour, and I have cut down the propofol gradually until discontinued. Her ventilator settings were noted to be assist- control rate of 16 FiO2 of 35% tidal volume of 350 and PEEP of 5. Her usual dose of propofol has been about 55 g and the dose of fentanyl was 100 g per hour. After cutting down on both and stopping her up a fall, I was able to give the patient a decent trial of pressure support of 10 and CPAP. Patient looked great and better than expected her chest x-ray was looking better today, her follow-up ABG post half hour at least on pressure support and CPAP looked great, pO2 was 79 pCO2 was 37 pH was 7.47, hence I proceeded to extubating the patient. I felt this is hour window otherwise the patient may require tracheostomy as noted previously. The rest of the labs and the chest x-ray were all reviewed. Electrolytes were normal CBC was relatively normal except for hemoglobin of 8.7. Patient was reevaluated today on 10/31/2018, patient is off mechanical ventilation , she was weaned and extubated successfully yesterday. Patient continues to have significant amount of pain medications on board, continues to be tachycardic, sinus tachycardia rate is in the 130 and 140 range. Continues to have chest tubes on both sides, one the left side and one on the left side. I have adjusted all her medications today, switched most them to oral medication, and change Solu-Medrol to prednisone, added Xanax to control her anxiety, discontinued fentanyl yesterday, and she is presently on IV medication for pain control. Her chest x-ray is showing some improvement, however the patient continues to have leaks in both tubes on both sides. She is on nasal cannula, saturating quite well, seems to be generally weak, and quite tachycardic, extremely anxious and agitated becomes very emotional when discussing her clinical condition. All labs were reviewed WBC count is 13.1 hemoglobin is 9.4 electrolytes and renal profile are normal. Patient was reevaluated today on 11/01/2018, remains in the intensive care unit, on nasal cannula, feeling much better today, breathing easier, seems to have less pain, less shortness of breath, but she continues to have significant air leak specially in one of the tubes on the left side, and minimal air leak on the right sided chest tube. Her tachycardia seems to be much better controlled , her heart rate is in the 90s, her O2 saturation is 96% on 3 L nasal cannula, and her blood pressure is 121/81 with a mean of 94. Labs and chest x-ray were reviewed, patient seems to be less anxious at this point, and all her meds including bronchodilators, steroids, antibiotics, were all addressed accordingly. Considering the significant air leak, and considering his severe COPD/emphysema with significant bullous disease, I have a feeling that the patient is going to have significant difficulty healing from her pneumothorax, and she may eventually require surgical intervention. That is yet to be decided in the next few days. Objective - Vital Signs Vital signs: Vital Signs Temp 98.1 F 11/01/18 08:00 Pulse 92 11/01/18 11:39 Resp 12 11/01/18 11:00 BP 121/81 11/01/18 11:00 Pulse Ox 96 11/01/18 11:00 Intake & Output 10/31/18 11/01/18 11/01/18 18:59 06:59 18:59 Intake Total 1325 Output Total 1268 1695 275 Balance 57 -1695 -275 Weight 58.9 kg 58.9 kg Intake: IV 525 Sodium Chloride 0.45% 1, 525 000 ml @ 75 mls/hr IV . [id number] [facility] Rx#:[id number] Oral 800 Output: Chest Tube Drainage 103 0 0 Chest Tube Left Lateral 90 0 0 Chest Chest Tube Left Mid- 4 0 0 Axillary Chest Chest Tube Right Mid- 9 0 0 Axillary Chest Urine 1165 1695 275 Other: Voiding Method Indwelling Catheter Indwelling Catheter Indwelling Catheter - Exam GENERAL EXAM: Revealed a 58-year-old female, in bed, resting comfortably, on few liters nasal cannula. HEAD: Normocephalic. EYES: Normal reaction of pupils, equal size. NOSE: Clear with pink turbinates. THROAT: Oral endotracheal and gastric tube secured in place. No erythema or exudates. NECK: No masses, no JVD. Previous tracheostomy site scar. CHEST: No chest wall deformity. Bilateral chest tubes in place. 2 left-sided chest tubes were noted and 1 right-sided chest tube was also noted. Continues to have significant air leaks in both sides. More so on the left compared to the right LUNGS: Diminished breath sound bilaterally, no crackles or rhonchi or wheezes. No chest wall tenderness.. CVS: S1 and S2 normal with no audible murmur, regular rhythm. ABDOMEN: No hepatosplenomegaly, normal bowel sounds, no guarding or rigidity. SPINE: No scoliosis or deformity SKIN: No rashes CENTRAL NERVOUS SYSTEM: Alert and oriented 3, no gross focal neurologic deficit. EXTREMITIES: There is no peripheral edema. No clubbing, no cyanosis. Peripheral pulses are intact. Psychiatric: Less anxious, less emotional. Much improved today. - Labs CBC & Chem 7: 11/01/18 04:00 11/01/18 04:00 Labs: Abnormal Lab Results - Last 24 Hours (Table) 10/31/18 10/31/18 10/31/18 Range/Units 12:02 17:10 21:28 WBC (3.8-10.6) k/uL RBC (3.80-5.40) m/uL Hgb (11.4-16.0) gm/dL Hct (34.0-46.0) % RDW (11.5-15.5) % Neutrophils # (1.3-7.7) k/uL Sodium (137-145) mmol/L Carbon Dioxide (22-30) mmol/L POC Glucose (mg/dL) 123 H 103 H 104 H (75-99) mg/dL 11/01/18 11/01/18 11/01/18 Range/Units 04:00 04:00 06:50 WBC 13.1 H (3.8-10.6) k/uL RBC 3.39 L (3.80-5.40) m/uL Hgb 9.6 L (11.4-16.0) gm/dL Hct 30.7 L (34.0-46.0) % RDW 16.8 H (11.5-15.5) % Neutrophils # 9.8 H (1.3-7.7) k/uL Sodium 134 L (137-145) mmol/L Carbon Dioxide 32 H (22-30) mmol/L POC Glucose (mg/dL) 109 H (75-99) mg/dL 11/01/18 Range/Units 11:49 WBC (3.8-10.6) k/uL RBC (3.80-5.40) m/uL Hgb (11.4-16.0) gm/dL Hct (34.0-46.0) % RDW (11.5-15.5) % Neutrophils # (1.3-7.7) k/uL Sodium (137-145) mmol/L Carbon Dioxide (22-30) mmol/L POC Glucose (mg/dL) 179 H (75-99) mg/dL Microbiology - Last 24 Hours (Table) 10/26/18 16:28 Blood Culture - Preliminary Blood No Growth after 120 hours Assessment and Plan Assessment: #1 Acute hypoxic respiratory failure secondary to acute exacerbation of severe oxygen dependent chronic obstructive pulmonary disease, complicated by bilateral pneumothorax. Status post 3 chest tube placements to on the left and one on the right. #2 Brief cardiac arrest secondary to above responded to epinephrine. #3 Severe advanced chronic obstructive pulmonary disease and bullous emphysema with underlying FEV1 value 36% of predicted. Both oxygen and steroid dependent. #4 History of prolonged respiratory failure requiring intubation mechanical ventilation with subsequent tracheostomy and PEG tube placements and [facility]. Subsequently decannulated. #5 Previous history of right-sided pneumothorax 2. #6 Chronic left upper lobe inflammatory opacity. #7 Hyperlipidemia. #8 Hypothyroidism. #9 Chronic normocystic anemia. #10 Fibromyalgia. #11 History of anxiety/depression with previous discontinuation of her prescribed medications. #12 successful extubation on 10/30/2018, patient seems to have tolerated the extubation well, however she still has a long way to go. Considering her severe emphysema and her chest tubes, and the ongoing leak in the chest tubes on both sides, patient will require to remain in the ICU. Plan: Continue present supportive care measures, continue to monitor in the ICU. Addressed all her medications, discussed with her her medical issues in details, explained to her why she remains in the ICU, and why she continues to have persistent air leak from chest tubes. I have a strong feeling that the patient may eventually require surgical intervention especially on the left side. May consult thoracic surgery to address that issue but I don't believe anything could be done for at least sometime next week. Patient remains quite ill, and her prognosis remains extremely poor and guarded. We'll continue to follow. Time with Patient: Less than 30
[2018-11-01] MEDS ORDERED: NICOTINE POLACRILEX 4 MG BUCCAL PRN ×2 (13:09→18:36)
--- NOTE | 2018-11-01 16:26 | P.PN ---
Subjective Progress Note Date: 11/01/18 This is a 58-year-old female who follows with Dr. James as her primary care physician. She has a history of hyperlipidemia, hypothyroidism, anemia, fibromyalgia, anxiety/depression, COPD. She presented to the emergency department with dyspnea. Patient was at home when she experienced rest for distress and called EMS. In route to the hospital she was put on a BiPAP due to minimal responsiveness. Upon arrival to the emergency department her initial vital signs were tachycardic with no measurable pulse oximetry and she was hypotensive. Patient was positive for JVD, 1 view chest was obtained for a positive pneumothorax 50% on the left and a possible pneumothorax on the right. A chest tube was placed on the left and patient had failure to respond to treatment. At which CPR was initiated by ACLS protocol for approximately 1 minute. A central line was placed in the left subclavian vein during the code. Patient was intubated. An repeat chest x-ray showed a pneumothorax on the right and a right-sided 24-Vincentian chest tube was placed. Patient's vital signs improved and she was transported to ICU for continuation of care. Patient presents intubated at this time. She is awake and able to answer questions appropriately. Her current vent setting assist control of 16, tidal volume 350 , FiO2 at 35% and a PEEP of 5. Her morning blood gases reveal a pO2 of 85 pCO2 of 41 pH 7.38. H&H is currently sedated with 30 mics per KG per minute of debridement and, fentanyl drip at 1 MCG per KG per hour. Patient is able to follow commands she is able to move all 4 extremities. Her white count is 7.6, hemoglobin of 10, creatinine 0.6. 10/28: Patient continues to be sedated and intubated. Chest x-ray this morning showed significant progression of left-sided pneumothorax estimated at 50%. Left lower lobe pleural catheter appears unchanged in position. It increased subcutaneous air identified. Subsequently the patient underwent a another chest tube insertion on the left side to help relieve the pneumothorax. Repeat checks x-ray showed a persistent left apical pneumothorax estimated at 15-20%. A new left-sided chest tube place. Patient is receiving tube feedings through NG tube at this time. She continues to be on propofol at 65 mics per KG per minute and fentanyl drip at 1 nury per KG per hour. Patient also is getting Dilaudid and Kingston as needed for pain. Her brought in opium to help with abdominal discomfort. Vent settings are unchanged the vent setting assist control 16, tidal volume of 350, FiO2 at 35%, and a PEEP of 5. Patient's urinary output is 50-70 mL per hour. Discussed findings with at the bedside in the plan to continue with sedation and intubation to rest the lungs and we will reassess tomorrow for possible weaning. states that this happened a few months ago where she was on prolonged intubation due to her lungs not recovering. 10/29: Patient continues to be sedated and intubated. Chest x-ray does show improvement to bilateral pneumothorax and [address]. Patient has been tachycardic overnight with a rate in the 130s. Patient grimaces in pain and withdraws. Patient continue to see tube feedings through NG tube. She continues to be on propofol and fentanyl for sedation. Patient was on Nimbex overnight however that has been DC'd. Vent settings are unchanged with the vent assist control 16, tidal volume 350, FiO2 at 35%, and a PEEP of 5. Patient 's urinary output continues to be 50-70 ML's per hour. Discussed case with pulmonology and consult for trach and PEG tube is in place. Pulmonology does not feel the patient will be successful in weaning. 10/30/18: Patient is sitting up in bed extubated. Patient was successfully weaned this morning. She is alert and orientated 3 and able to answer questions appropriately. Patient is complaining of pain to the chest due to the 3 chest tubes that are in place. Patient does have a history of Crohn's and discussed the medication she normally takes for them including Humira which we will hold at this time. Patient continues to be on sentinel drip for pain she also is receiving Dilaudid as needed for breakthrough pain. CBC 11.3, hemoglobin 8.7, potassium 4.7 BUN 28 creatinine 0.5. 10/31: Patient remains in the intensive care unit. She was successfully extubated yesterday and is currently pulse ox is 96% on 4 L nasal cannula. White count is 13.1, hemoglobin 9.4, CO2 is 32, electrolytes within normal limits, creatinine 0.54. Sputum cultures positive for Tish albicans. Urine culture finalized with no growth and blood culture showing no growth after 96 hours. Repeat chest x-ray shows 2 chest tubes on the left and one on the right. No appreciable pneumothorax. Relative upper lung lucency suggesting underlying emphysema. Continue small pleural effusions with adjacent atelectasis or consolidations. Cardiothoracic surgery signing off the case is no plan is for trach and PEG placement. Patient remains with 2 left-sided chest tubes in 1 right-sided chest tube. Pulmonary is planning to maintain chest tubes. Solu-Medrol transitioned to prednisone. property assessment monitor is a sinus tachycardia. Ribera catheter is in place draining adequate amount of urine. Ileostomy with dark brown stool. Patient has been seen by GI with recommendations to continue Humira every 2 weeks and can be restarted after discharge the patient had verbalized that she did not want to continue on Humira. Patient is to follow-up with Dr. Verma in the office as scheduled. Patient currently has [facility] home care in place. PT to start working with patient today. Patient has [facility]. Home medications will be reviewed. 11/01: Patient remains in the intensive care unit and breathing continues to improve slowly. Pulse ox is 96% on 3 L nasal cannula, heart rates running in the 90s. White count is 13.1, hemoglobin 9.6, creatinine 0.54. Electrolytes within normal limits. Patient is requesting using her home nicotine gum which will be ordered. Sputum culture showing Tish. Review Of Systems: Constitutional: Pain to the chest due to chest tube No fever, no chills, no night sweats. No weight change. No weakness, fatigue or lethargy. EENT: No headache. No blurred vision or double vision, no loss of vision. No loss of Hearing, no ringing in the ears, no dizziness. No nasal drainage or congestion. No epistaxis. No sore throat. Lungs: No shortness of breath, cough, no sputum production. No wheezing. Cardiovascular: No chest pain, no lower extremity edema. No palpitations. No paroxysmal nocturnal dyspnea. No orthopnea. No lightheadedness or dizziness. No syncopal episodes. Abdominal: no abdominal discomfort. No nausea, vomiting. no diarrhea. No constipation. No bloody or tarry stools. improved loss of appetite. Genitourinary: No dysuria, increased frequency, urgency. No urinary retention. Musculoskeletal: No myalgias. No muscle weakness, no gait dysfunction, no frequent falls. No back pain. No neck pain. Integumentary: No wounds, no lesions. No rash or pruritus. No unusual bruising. No change in hair or nails. Neurologic: No aphasia. No facial droop. No change in mentation. No head injury. No headache. No paralysis. No paresthesia. Psychiatric: No depression. No anxiety. No mood swings. Endocrine: No abnormal blood sugars. No weight change. Objective - Vital Signs Vital signs: Vital Signs Temp 98.1 F 11/01/18 08:00 Pulse 95 11/01/18 08:00 Resp 22 11/01/18 08:00 BP 124/80 11/01/18 08:00 Pulse Ox 96 11/01/18 08:00 Intake & Output 10/31/18 11/01/18 11/01/18 18:59 06:59 18:59 Intake Total 1325 Output Total 1268 1695 275 Balance 57 -1695 -275 Weight 58.9 kg 58.9 kg Intake: IV 525 Sodium Chloride 0.45% 1, 525 000 ml @ 75 mls/hr IV . [id number] [facility] Rx#:[id number] Oral 800 Output: Chest Tube Drainage 103 0 0 Chest Tube Left Lateral 90 0 0 Chest Chest Tube Left Mid- 4 0 0 Axillary Chest Chest Tube Right Mid- 9 0 0 Axillary Chest Urine 1165 1695 275 Other: Voiding Method Indwelling Catheter Indwelling Catheter Indwelling Catheter - Exam General appearance: Present: average body habitus, cooperative, no acute distress - EENT Eyes: Present: anicteric sclerae, EOMI, PERRLA ENT: Present: hearing grossly normal, NA/AT - Neck Neck: Present: normal ROM. Absent: lymphadenopathy - Respiratory Respiratory: bilateral: diminished, wheezing, no accessory muscle usage negative : dullness, rales, rhonchi, prolonged expiration, prolonged inspiration, other 2 left-sided chest tubes and 1 right-sided chest tube - Cardiovascular Rhythm: regular Heart sounds: normal: S1, S2 Abnormal Heart Sounds: Absent: systolic murmur, diastolic murmur, rub, S3 Gallop , S4 Gallop, click, other - Gastrointestinal General gastrointestinal: Present: normal bowel sounds, soft. Absent: tenderness - Integumentary Integumentary: Present: pale - Neurologic Neurologic: Present: CNII-XII intact - Musculoskeletal Musculoskeletal: Present: generalized weakness, strength equal bilaterally - Psychiatric Psychiatric: Present: A&O x's 3, appropriate affect, intact judgment & insight - Labs CBC & Chem 7: 11/01/18 04:00 11/01/18 04:00 Labs: Abnormal Lab Results - Last 24 Hours (Table) 10/31/18 10/31/18 10/31/18 Range/Units 12:02 17:10 21:28 WBC (3.8-10.6) k/uL RBC (3.80-5.40) m/uL Hgb (11.4-16.0) gm/dL Hct (34.0-46.0) % RDW (11.5-15.5) % Neutrophils # (1.3-7.7) k/uL Sodium (137-145) mmol/L Carbon Dioxide (22-30) mmol/L POC Glucose (mg/dL) 123 H 103 H 104 H (75-99) mg/dL 11/01/18 11/01/18 11/01/18 Range/Units 04:00 04:00 06:50 WBC 13.1 H (3.8-10.6) k/uL RBC 3.39 L (3.80-5.40) m/uL Hgb 9.6 L (11.4-16.0) gm/dL Hct 30.7 L (34.0-46.0) % RDW 16.8 H (11.5-15.5) % Neutrophils # 9.8 H (1.3-7.7) k/uL Sodium 134 L (137-145) mmol/L Carbon Dioxide 32 H (22-30) mmol/L POC Glucose (mg/dL) 109 H (75-99) mg/dL Microbiology - Last 24 Hours (Table) 10/26/18 16:28 Blood Culture - Preliminary Blood No Growth after 120 hours Assessment and Plan Plan: #1 Acute hypoxic respiratory failure secondary to acute exacerbation of severe oxygen dependent chronic obstructive pulmonary disease, complicated by bilateral pneumothorax. Status post bilateral chest tube placements. Patient has been successfully extubated. Continue Dilaudid 1 mg every 3 hours as needed for break through pain and Kingston as needed. Continue DuoNeb treatments every 4 hours scheduled and as needed, Pulmicort 1 mg twice daily, Perforomist twice daily, prednisone. Repeat chest x-ray, and labs in the morning. #2 Brief cardiac arrest secondary to above responded to epinephrine. #3 Severe advanced chronic obstructive pulmonary disease and bullous emphysema with underlying FEV1 value 36% of predicted. Both oxygen and steroid dependent. Continue Pulmicort, continue IV Solu-Medrol, #4 History of prolonged respiratory failure requiring intubation mechanical ventilation with subsequent tracheostomy and PEG tube placements [facility]. #5 bilateral pneumothorax related to severe advanced stages of COPD and bullous emphysema Chest tubes in place. Repeat chest x-ray #6 Previous history of right-sided pneumothorax 2. #7 Chronic left upper lobe inflammatory opacity. #8 Hyperlipidemia. #9 Hypertension. Continue to monitor blood pressure #10 Chronic normocystic anemia, anemia of chronic disease. Monitor CBC #11 Fibromyalgia. Continue Dilaudid or Kingston as needed #12 Generalized anxiety disorder and recurrent depression. #13 History of Crohn's. Consult gastroenterology. Continue opium. #14 GI prophylactics Protonix 40 mg IV daily #15 DVT prophylaxis heparin 5000 units subcu every 8 hours Discharge plan: Home with [facility]/subacute rehab Impression and plan of care have been directed as dictated by the signing physician. Gaby Rothman nurse practitioner acting as scribe for signing physician.
[2018-11-01 17:05] LABS: Glucose,Whole Blood 125 mg/dL (75-99)
[2018-11-01 21:06] LABS: Glucose,Whole Blood 138 mg/dL (75-99)
[2018-11-01] MEDS: MELATONIN 5 MG TABLET PO SCH (21:50)
[2018-11-01] MEDS: METOPROLOL TARTRATE 25 MG TAB PO SCH (21:50)
[2018-11-01] MEDS: ALPRAZolam 0.25 MG TAB PO PRN (23:10)
[2018-11-02] MEDS: IPRATROPIUM-ALBUTEROL 3 ML NEB INHALATION SCH ×6 (01:14→20:09)
[2018-11-02 07:16] LABS: Glucose,Whole Blood 100 mg/dL (75-99)
[2018-11-02] MEDS: HYDROmorphone 0.5 MG/0.5 ML SYRINGE IVP PRN ×6 (07:20→23:56)
[2018-11-02] MEDS: FORMOTEROL FUMARATE 20 MCG/2 ML NEBU INHALATION SCH ×2 (08:24→19:01)
[2018-11-02] MEDS: BUDESONIDE 1 MG/2 ML NEBU INHALATION SCH ×2 (08:24→19:01)
[2018-11-02] MEDS: predniSONE 10 MG TAB PO SCH (09:14)
[2018-11-02] MEDS: DICYCLOMINE 10 MG CAP PO SCH ×3 (09:14→21:57)
[2018-11-02] MEDS: METOPROLOL TARTRATE 50 MG TAB PO SCH (09:14)
[2018-11-02] MEDS: busPIRone HCl 10 MG TAB PO SCH ×3 (09:14→21:57)
[2018-11-02] MEDS: PANTOPRAZOLE 40 MG TABLET PO SCH (09:14)
[2018-11-02] MEDS: DULoxetine HCL 30 MG CAPSULE.DR PO SCH ×2 (09:14→21:58)
[2018-11-02] MEDS: INSULIN ASPART 100 UNIT/ML 1 ML 10 ML VIAL SQ SCH ×4 (09:15→21:58)
[2018-11-02] MEDS: COLCHICINE 0.6 MG EACH PO SCH (09:15)
[2018-11-02] MEDS: GABAPENTIN 300 MG CAP PO SCH ×3 (09:15→21:56)
[2018-11-02] MEDS: HEPARIN SODIUM,PORCINE 5,000 UNIT/ML 1 ML VIAL SQ SCH ×3 (09:15→23:56)
[2018-11-02] MEDS: HYDROcodone/APAP 10-325MG 1 EACH TAB PO PRN ×2 (09:16→18:46)
--- NOTE | 2018-11-02 10:04 | XR ---
EXAMINATION TYPE: XR chest 1V portable DATE OF EXAM: 11/02/2018 HISTORY: Chest tube placement to evaluate for pneumothorax. COMPARISON: 11/01/2018 TECHNIQUE: Single view of the chest is submitted. FINDINGS: Bilateral chest tubes remain unchanged in position. No evidence for sizable pneumothorax within eithe r lung at this time. Small pleural effusions noted. Left basilar atelectasis or infiltrate noted. Sma ll amount of subcutaneous air left chest wall. There is no evidence for focal infiltrate. The heart is stable. Hilar and mediastinal structures are within normal limits. Degenerative changes are seen of the dorsal spine. IMPRESSION: 1. Bilateral chest tubes remain unchanged in position. No evidence for sizable pneumothorax within e ither lung at this time.
[2018-11-02 10:12] LABS: Anisocytosis Slight; HCT 30.2 % (34.0-46.0); HGB 9.6 gm/dL (11.4-16.0); Hypochromasia Slight; MCH 29.4 pg (25.0-35.0); MCHC 31.8 g/dL (31.0-37.0); MCV 92.5 fL (80.0-100.0); Mean Platelet Volume 8.5; Platelet Count 237 k/uL (150-450); RBC 3.27 m/uL (3.80-5.40); RDW 16.6 % (11.5-15.5); WBC 12.6 k/uL (3.8-10.6)
[2018-11-02 10:43] LABS: Anion Gap 2 mmol/L; Blood Urea Nitrogen 13 mg/dL (7-17); Calcium 8.7 mg/dL (8.4-10.2); Carbon Dioxide 34 mmol/L (22-30); Chloride 99 mmol/L (98-107); Glucose 130 mg/dL (74-99); Phosphorus 3.7 mg/dL (2.5-4.5); Sodium 135 mmol/L (137-145)
[2018-11-02] MEDS: MAGNESIUM SULFATE-D5W PMX 1 GM in DEXTROSE/WATER 1 100ML.BAG IVPB SCH ×2 (11:16→13:45)
[2018-11-02 11:43] LABS: Glucose,Whole Blood 159 mg/dL (75-99)
--- NOTE | 2018-11-02 13:24 | P.PN ---
Subjective Progress Note Date: 11/02/18 Principal diagnosis: Acute hypoxic respiratory failure secondary to COPD and bilateral pneumothoraces. This is a 58-year-old female patient who follows with Dr. James as her primary care physician. She has a history of hyperlipidemia, hypothyroidism, anemia, fibromyalgia, anxiety/depression. Chest has a history of severe oxygen- dependent bullous emphysema/COPD with FEV1 value of 36% of predicted and a chronic left upper lobe inflammatory opacity that was nonmalignant. She has a history of prolonged respiratory failure requiring mechanical ventilation and was subsequently tr[facility]. She had since been decannulated. She's had multiple admissions for COPD exacerbations most recently discharged from here on 10/16/2018. She was brought in by EMS to the emergency room yesterday with severe respiratory distress requiring initially BiPAP support. She was found to have bilateral pneumothorax and chest tubes were placed as well as a left thoravent. She had a brief cardiac arrest requiring epinephrine. She was subsequently intubated and placed on mechanical ventilator and transferred here to the intensive care unit. She is seen today in consultation with current vent settings assist- control of 16, tidal volume 350, FiO2 of 35% and a PEEP of 5. Morning blood gases reveal a P O2 of 85, pCO2 41, pH 7.38. Her measured airway resistance is currently 8.8. She is sedated on to prevent at 30 mcg/kg/m., Fentanyl drip at 1 mcg/kg per hour, 1.9 normal saline at 75 ML's per hour. She does follow simple commands. She is moving all fours. Cultures are pending. White count 7.6. Hemoglobin 10.0. Creatinine 0.69. She's been initiated and DuoNeb inhalations. Patient was reevaluated today on 10/29/2018, remains in the ICU on mechanical ventilation. Patient has been on same ventilator settings, tidal volume of 350 assist-control rate of 16 FiO2 of 35% and PEEP of 5. Patient remains on fentanyl drip, she is also on propofol drip, and both are basically maximized. Last night Dr. Meza placed the patient on Nimbex drip. However I have discontinued the Nimbex drip today, and I will try to control her agitation with fentanyl and propofol only. Patient continues to have left-sided chest tubes, and 1 right sided chest tube, all of them are showing a bit of a leak. Her ABG showed a pO2 of 120 pCO2 of 40 0 pH of 7.44. Basic metabolic profile is normal, WBC count is 10.9 hemoglobin is 9.2. Chest x-ray did show improvement in aeration of the right lung base with persistent left basilar opacity may represent mostly atelectasis or possibly pneumonia. No sizable pneumothorax is noted on both sides. Patient remains on multiple bronchodilators, and on Solu-Medrol. Today I discussed with the nurses and with the admitting physician that it would be best to consider tracheostomy and PEG tube placement since the patient is going to be almost extremely difficult to wean successfully. She had a similar episode in the past, and she did require [facility]. Patient was reevaluated today on 10/30/2018, remains on mechanical ventilation, still requiring a significant dose of propofol and fentanyl. I have attempted to cut down the fentanyl to 25 mg per hour, and I have cut down the propofol gradually until discontinued. Her ventilator settings were noted to be assist- control rate of 16 FiO2 of 35% tidal volume of 350 and PEEP of 5. Her usual dose of propofol has been about 55 g and the dose of fentanyl was 100 g per hour. After cutting down on both and stopping her up a fall, I was able to give the patient a decent trial of pressure support of 10 and CPAP. Patient looked great and better than expected her chest x-ray was looking better today, her follow-up ABG post half hour at least on pressure support and CPAP looked great, pO2 was 79 pCO2 was 37 pH was 7.47, hence I proceeded to extubating the patient. I felt this is hour window otherwise the patient may require tracheostomy as noted previously. The rest of the labs and the chest x-ray were all reviewed. Electrolytes were normal CBC was relatively normal except for hemoglobin of 8.7. Patient was reevaluated today on 10/31/2018, patient is off mechanical ventilation , she was weaned and extubated successfully yesterday. Patient continues to have significant amount of pain medications on board, continues to be tachycardic, sinus tachycardia rate is in the 130 and 140 range. Continues to have chest tubes on both sides, one the left side and one on the left side. I have adjusted all her medications today, switched most them to oral medication, and change Solu-Medrol to prednisone, added Xanax to control her anxiety, discontinued fentanyl yesterday, and she is presently on IV medication for pain control. Her chest x-ray is showing some improvement, however the patient continues to have leaks in both tubes on both sides. She is on nasal cannula, saturating quite well, seems to be generally weak, and quite tachycardic, extremely anxious and agitated becomes very emotional when discussing her clinical condition. All labs were reviewed WBC count is 13.1 hemoglobin is 9.4 electrolytes and renal profile are normal. Patient was reevaluated today on 11/01/2018, remains in the intensive care unit, on nasal cannula, feeling much better today, breathing easier, seems to have less pain, less shortness of breath, but she continues to have significant air leak specially in one of the tubes on the left side, and minimal air leak on the right sided chest tube. Her tachycardia seems to be much better controlled , her heart rate is in the 90s, her O2 saturation is 96% on 3 L nasal cannula, and her blood pressure is 121/81 with a mean of 94. Labs and chest x-ray were reviewed, patient seems to be less anxious at this point, and all her meds including bronchodilators, steroids, antibiotics, were all addressed accordingly. Considering the significant air leak, and considering his severe COPD/emphysema with significant bullous disease, I have a feeling that the patient is going to have significant difficulty healing from her pneumothorax, and she may eventually require surgical intervention. That is yet to be decided in the next few days. Reevaluated today on 11/02/2018, patient remains in the intensive care unit, continues to have bilateral chest tubes, however the right-sided chest tube showed no leak today, and I have placed the tube on water seal, off wall suction. One of the left-sided chest tubes continues to have a significant amount of leak, hence I consulted thoracic surgery. Patient may eventually require surgical intervention. Overall the patient is doing better than expected, she has been tolerating the extubation well over the last few days. Chest x-ray was reviewed, labs were reviewed, medications were reviewed and the addressed. Discussed her condition also with a thoracic surgeon at bedside. Objective - Vital Signs Vital signs: Vital Signs Temp 98.2 F 11/02/18 08:00 Pulse 112 H 11/02/18 12:11 Resp 28 H 11/02/18 11:00 BP 104/74 11/02/18 11:00 Pulse Ox 94 L 11/02/18 11:00 Intake & Output 11/01/18 11/02/18 11/02/18 18:59 06:59 18:59 Intake Total 600 240 100 Output Total 1649 1193 380 Balance -1049 -953 -280 Weight 58.9 kg 56.9 kg Intake: IV 100 Magnesium Sulfate-D5w Pmx 100 1 gm In Dextrose/Water 1 100ml.bag @ 100 mls/hr IVPB Q1H MEENU Rx#: [id number] Intake, IV Titration 100 Amount Magnesium Sulfate-D5w Pmx 100 1 gm In Dextrose/Water 1 100ml.bag @ 100 mls/hr IVPB Q1H MEENU Rx#: [id number] Oral 500 240 Output: Chest Tube Drainage 109 38 Chest Tube Left Lateral 60 18 Chest Chest Tube Left Mid- 49 20 Axillary Chest Chest Tube Right Mid- 0 0 Axillary Chest Urine 840 755 130 Stool 700 400 250 Other: Voiding Method Indwelling Catheter Indwelling Catheter - Exam GENERAL EXAM: Revealed a 58-year-old female, in no distress, on 2 L nasal cannula. HEAD: Normocephalic. EYES: Normal reaction of pupils, equal size. NOSE: Clear with pink turbinates. THROAT: Oral endotracheal and gastric tube secured in place. No erythema or exudates. NECK: No masses, no JVD. Previous tracheostomy site scar. Left subclavian central line is noted. CHEST: No chest wall deformity. Bilateral chest tubes in place. 2 left-sided chest tubes were noted and 1 right-sided chest tube was also noted. Continues to have significant air leaks on the left side but none on the right side. LUNGS: Diminished breath sound bilaterally, no crackles or rhonchi or wheezes. No chest wall tenderness.. CVS: S1 and S2 normal with no audible murmur, regular rhythm. ABDOMEN: No hepatosplenomegaly, normal bowel sounds, no guarding or rigidity. SPINE: No scoliosis or deformity SKIN: No rashes CENTRAL NERVOUS SYSTEM: Alert and oriented 3, no gross focal neurologic deficit. EXTREMITIES: There is no peripheral edema. No clubbing, no cyanosis. Peripheral pulses are intact. Psychiatric: Normal mood, affect and mental status examination. - Labs CBC & Chem 7: 11/02/18 04:50 11/02/18 04:50 Labs: Abnormal Lab Results - Last 24 Hours (Table) 11/01/18 11/01/18 11/02/18 Range/Units 16:54 20:55 04:50 WBC 12.6 H (3.8-10.6) k/uL RBC 3.27 L (3.80-5.40) m/uL Hgb 9.6 L (11.4-16.0) gm/dL Hct 30.2 L (34.0-46.0) % RDW 16.6 H (11.5-15.5) % Sodium (137-145) mmol/L Carbon Dioxide (22-30) mmol/L Creatinine (0.52-1.04) mg/dL Glucose (74-99) mg/dL POC Glucose (mg/dL) 125 H 138 H (75-99) mg/dL 11/02/18 11/02/18 11/02/18 Range/Units 04:50 07:04 11:34 WBC (3.8-10.6) k/uL RBC (3.80-5.40) m/uL Hgb (11.4-16.0) gm/dL Hct (34.0-46.0) % RDW (11.5-15.5) % Sodium 135 L (137-145) mmol/L Carbon Dioxide 34 H (22-30) mmol/L Creatinine 0.50 L (0.52-1.04) mg/dL Glucose 130 H (74-99) mg/dL POC Glucose (mg/dL) 100 H 159 H (75-99) mg/dL Microbiology - Last 24 Hours (Table) 10/26/18 16:28 Blood Culture - Final Blood No Growth after 144 hours Assessment and Plan Assessment: #1 Acute hypoxic respiratory failure secondary to acute exacerbation of severe oxygen dependent chronic obstructive pulmonary disease, complicated by bilateral pneumothorax. Status post 3 chest tube placements to on the left and one on the right. #2 Brief cardiac arrest secondary to above responded to epinephrine. #3 Severe advanced chronic obstructive pulmonary disease and bullous emphysema with underlying FEV1 value 36% of predicted. Both oxygen and steroid dependent. #4 History of prolonged respiratory failure requiring intubation mechanical ventilation with subsequent tracheostomy and PEG tube placements and [facility]. Subsequently decannulated. #5 Previous history of right-sided pneumothorax 2. #6 Chronic left upper lobe inflammatory opacity. #7 Hyperlipidemia. #8 Hypothyroidism. #9 Chronic normocystic anemia. #10 Fibromyalgia. #11 History of anxiety/depression with previous discontinuation of her prescribed medications. #12 successful extubation on 10/30/2018, patient seems to have tolerated the extubation well, however she still has a long way to go. Considering her severe emphysema and her chest tubes, and the ongoing leak in the left sided chest tube, patient will require to remain in the ICU. Initiated a consultation to thoracic surgery. Plan: Continue present supportive care measures, continue to monitor in the ICU. Addressed all her medications, discussed with her her medical issues in details, explained to her why she remains in the ICU, discussed her condition with thoracic surgery, patient may eventually require surgery to fix the left- sided leak, or she is a high surgical risk, but we'll go ahead and consult thoracic surgery and get an opinion regarding the ongoing left-sided chest tube leak. Chest x-ray was reviewed and discussed with the patient. All her meds and labs were discussed with her today. We'll continue to follow. Time with Patient: Less than 30
--- NOTE | 2018-11-02 13:46 | CT ---
EXAMINATION TYPE: CT chest wo con DATE OF EXAM: 11/02/2018 COMPARISON: 12/19/2017 HISTORY: Bilateral pneumothorax CT DLP: 195.5 mGycm, Automated exposure control for dose reduction was used. CONTRAST: Performed injected with 0 mL of Isovue 300. TECHNIQUE: Axial images were obtained at 5 mm thick sections. Reconstructed images are reviewed on [employer] computer in the coronal plane. FINDINGS: Extensive subcutaneous emphysema is along the left. There is a left apical pneumothorax. 2 chest tubes are present on the left. Masslike areas in the pos terior left upper lobe measuring 2.6 x 1.9 cm. This is smaller than the comparison. There is a massli ke area in the anterior right upper lung field measuring 1.3 x 1.1 cm which appears similar to the co mparison. Large posterior right pneumothorax is present. Separation from large blebs are difficult. P leural margin is not clearly identified in the axial plane but appears somewhat more convincing in th e coronal plane. Chest tube is distracted towards the right suprahilar region. There is a small right pleural effusion. Bibasilar infiltrates are present. Atelectasis and pneumonia and underlying masses could be considered. No enlarged mediastinal or hilar adenopathy is evident. The ascending aorta diameter at the level o f the main pulmonary artery is 3.1 cm. The main pulmonary artery diameter at the bifurcation is 2.[address] sections are obtained through the upper abdomen. Cholecystectomy clips are present. No sandra e air is within the abdomen. IMPRESSIONS: 1. Bilateral pneumothoraces. Chest tubes are present. Consider repositioning the right-sided chest tu be. 2. Bilateral apical masses left side is increasing in size.
--- NOTE | 2018-11-02 14:04 | P.PN ---
Subjective Progress Note Date: 11/02/18 This is a 58-year-old female who follows with Dr. James as her primary care physician. She has a history of hyperlipidemia, hypothyroidism, anemia, fibromyalgia, anxiety/depression, COPD. She presented to the emergency department with dyspnea. Patient was at home when she experienced rest for distress and called EMS. In route to the hospital she was put on a BiPAP due to minimal responsiveness. Upon arrival to the emergency department her initial vital signs were tachycardic with no measurable pulse oximetry and she was hypotensive. Patient was positive for JVD, 1 view chest was obtained for a positive pneumothorax 50% on the left and a possible pneumothorax on the right. A chest tube was placed on the left and patient had failure to respond to treatment. At which CPR was initiated by ACLS protocol for approximately 1 minute. A central line was placed in the left subclavian vein during the code. Patient was intubated. An repeat chest x-ray showed a pneumothorax on the right and a right-sided 24-Niuean chest tube was placed. Patient's vital signs improved and she was transported to ICU for continuation of care. Patient presents intubated at this time. She is awake and able to answer questions appropriately. Her current vent setting assist control of 16, tidal volume 350 , FiO2 at 35% and a PEEP of 5. Her morning blood gases reveal a pO2 of 85 pCO2 of 41 pH 7.38. H&H is currently sedated with 30 mics per KG per minute of debridement and, fentanyl drip at 1 MCG per KG per hour. Patient is able to follow commands she is able to move all 4 extremities. Her white count is 7.6, hemoglobin of 10, creatinine 0.6. 10/28: Patient continues to be sedated and intubated. Chest x-ray this morning showed significant progression of left-sided pneumothorax estimated at 50%. Left lower lobe pleural catheter appears unchanged in position. It increased subcutaneous air identified. Subsequently the patient underwent a another chest tube insertion on the left side to help relieve the pneumothorax. Repeat checks x-ray showed a persistent left apical pneumothorax estimated at 15-20%. A new left-sided chest tube place. Patient is receiving tube feedings through NG tube at this time. She continues to be on propofol at 65 mics per KG per minute and fentanyl drip at 1 nury per KG per hour. Patient also is getting Dilaudid and [place] as needed for pain. Her brought in opium to help with abdominal discomfort. Vent settings are unchanged the vent setting assist control 16, tidal volume of 350, FiO2 at 35%, and a PEEP of 5. Patient's urinary output is 50-70 mL per hour. Discussed findings with at the bedside in the plan to continue with sedation and intubation to rest the lungs and we will reassess tomorrow for possible weaning. states that this happened a few months ago where she was on prolonged intubation due to her lungs not recovering. 10/29: Patient continues to be sedated and intubated. Chest x-ray does show improvement to bilateral pneumothorax and [address]. Patient has been tachycardic overnight with a rate in the 130s. Patient grimaces in pain and withdraws. Patient continue to see tube feedings through NG tube. She continues to be on propofol and fentanyl for sedation. Patient was on Nimbex overnight however that has been DC'd. Vent settings are unchanged with the vent assist control 16, tidal volume 350, FiO2 at 35%, and a PEEP of 5. Patient 's urinary output continues to be 50-70 ML's per hour. Discussed case with pulmonology and consult for trach and PEG tube is in place. Pulmonology does not feel the patient will be successful in weaning. 10/30/18: Patient is sitting up in bed extubated. Patient was successfully weaned this morning. She is alert and orientated 3 and able to answer questions appropriately. Patient is complaining of pain to the chest due to the 3 chest tubes that are in place. Patient does have a history of Crohn's and discussed the medication she normally takes for them including Humira which we will hold at this time. Patient continues to be on sentinel drip for pain she also is receiving Dilaudid as needed for breakthrough pain. CBC 11.3, hemoglobin 8.7, potassium 4.7 BUN 28 creatinine 0.5. 10/31: Patient remains in the intensive care unit. She was successfully extubated yesterday and is currently pulse ox is 96% on 4 L nasal cannula. White count is 13.1, hemoglobin 9.4, CO2 is 32, electrolytes within normal limits, creatinine 0.54. Sputum cultures positive for Tish albicans. Urine culture finalized with no growth and blood culture showing no growth after 96 hours. Repeat chest x-ray shows 2 chest tubes on the left and one on the right. No appreciable pneumothorax. Relative upper lung lucency suggesting underlying emphysema. Continue small pleural effusions with adjacent atelectasis or consolidations. Cardiothoracic surgery signing off the case is no plan is for trach and PEG placement. Patient remains with 2 left-sided chest tubes in 1 right-sided chest tube. Pulmonary is planning to maintain chest tubes. Solu-Medrol transitioned to prednisone. site monitor is a sinus tachycardia. Ribera catheter is in place draining adequate amount of urine. Ileostomy with dark brown stool. Patient has been seen by GI with recommendations to continue Humira every 2 weeks and can be restarted after discharge the patient had verbalized that she did not want to continue on Humira. Patient is to follow-up with Dr. Verma in the office as scheduled. Patient currently has [facility] home care in place. PT to start working with patient today. [facility] Home medications will be reviewed. 11/01: Patient remains in the intensive care unit and breathing continues to improve slowly. Pulse ox is 96% on 3 L nasal cannula, heart rates running in the 90s. White count is 13.1, hemoglobin 9.6, creatinine 0.54. Electrolytes within normal limits. Patient is requesting using her home nicotine gum which will be ordered. Sputum culture showing Tish. 11/02: Patient remains in the intensive care unit. Repeat chest x-ray shows bilateral chest tubes remain unchanged. No evidence of sizable pneumothorax within either lung at this time. CAT scan of the chest reveals bilateral pneumothorax disease. Chest tubes are present. Consider reposition a right- sided chest tube. Bilateral apical masses left side is increasing in size. She does have bilateral chest tubes and there is plan for possibly removing the right side in the next couple days. There is a considerable leak on one of the left sided chest tubes in cardiothoracic surgery has been reconsulted. Patient is working with physical therapy and occupational therapy at the bedside. Review Of Systems: Constitutional: Pain to the chest due to chest tube No fever, no chills, no night sweats. No weight change. No weakness, fatigue or lethargy. EENT: No headache. No blurred vision or double vision, no loss of vision. No loss of Hearing, no ringing in the ears, no dizziness. No nasal drainage or congestion. No epistaxis. No sore throat. Lungs: No shortness of breath, cough, no sputum production. No wheezing. Cardiovascular: No chest pain, no lower extremity edema. No palpitations. No paroxysmal nocturnal dyspnea. No orthopnea. No lightheadedness or dizziness. No syncopal episodes. Abdominal: no abdominal discomfort. No nausea, vomiting. no diarrhea. No constipation. No bloody or tarry stools. improved loss of appetite. Genitourinary: No dysuria, increased frequency, urgency. No urinary retention. Musculoskeletal: No myalgias. No muscle weakness, no gait dysfunction, no frequent falls. No back pain. No neck pain. Integumentary: No wounds, no lesions. No rash or pruritus. No unusual bruising. No change in hair or nails. Neurologic: No aphasia. No facial droop. No change in mentation. No head injury. No headache. No paralysis. No paresthesia. Psychiatric: No depression. No anxiety. No mood swings. Endocrine: No abnormal blood sugars. No weight change. Objective - Vital Signs Vital signs: Vital Signs Temp 98.2 F 11/02/18 08:00 Pulse 138 H 11/02/18 10:00 Resp 24 11/02/18 10:00 BP 96/65 11/02/18 10:00 Pulse Ox 92 L 11/02/18 10:00 Intake & Output 11/01/18 11/02/18 11/02/18 18:59 06:59 18:59 Intake Total 600 240 Output Total 9376 1193 340 Balance -1049 -953 -340 Weight 58.9 kg 56.9 kg Intake: Intake, IV Titration 100 Amount Magnesium Sulfate-D5w Pmx 100 1 gm In Dextrose/Water 1 100ml.bag @ 100 mls/hr IVPB Q1H [facility] Rx#: [id number] Oral 500 240 Output: Chest Tube Drainage 109 38 Chest Tube Left Lateral 60 18 Chest Chest Tube Left Mid- 49 20 Axillary Chest Chest Tube Right Mid- 0 0 Axillary Chest Urine 840 755 90 Stool 700 400 250 Other: Voiding Method Indwelling Catheter Indwelling Catheter - Exam General appearance: Present: average body habitus, cooperative, no acute distress. Patient is standing at the bedside with physical therapy. - EENT Eyes: Present: anicteric sclerae, EOMI, PERRLA ENT: Present: hearing grossly normal, NA/AT - Neck Neck: Present: normal ROM. Absent: lymphadenopathy - Respiratory Respiratory: bilateral: diminished, wheezing, no accessory muscle usage negative : dullness, rales, rhonchi, prolonged expiration, prolonged inspiration, other 2 left-sided chest tubes and 1 right-sided chest tube - Cardiovascular Rhythm: regular Heart sounds: normal: S1, S2 Abnormal Heart Sounds: Absent: systolic murmur, diastolic murmur, rub, S3 Gallop , S4 Gallop, click, other - Gastrointestinal General gastrointestinal: Present: normal bowel sounds, soft. Absent: tenderness - Integumentary Integumentary: Present: pale - Neurologic Neurologic: Present: CNII-XII intact - Musculoskeletal Musculoskeletal: Present: generalized weakness, strength equal bilaterally - Psychiatric Psychiatric: Present: A&O x's 3, appropriate affect, intact judgment & insight - Labs CBC & Chem 7: 11/02/18 04:50 11/02/18 04:50 Labs: Abnormal Lab Results - Last 24 Hours (Table) 11/01/18 11/01/18 11/01/18 Range/Units 11:49 16:54 20:55 POC Glucose (mg/dL) 179 H 125 H 138 H (75-99) mg/dL 11/02/18 Range/Units 07:04 POC Glucose (mg/dL) 100 H (75-99) mg/dL Microbiology - Last 24 Hours (Table) 10/26/18 16:28 Blood Culture - Final Blood No Growth after 144 hours Assessment and Plan Plan: #1 Acute hypoxic respiratory failure secondary to acute exacerbation of severe oxygen dependent chronic obstructive pulmonary disease, complicated by bilateral pneumothorax. Status post bilateral chest tube placements. Patient has been successfully extubated. Continue Dilaudid 1 mg every 3 hours as needed for break through pain and [place] as needed. Continue DuoNeb treatments every 4 hours scheduled and as needed, Pulmicort 1 mg twice daily, Perforomist twice daily, prednisone. Repeat chest x-ray, and labs in the morning. Cardiothoracic surgery has been reconsulted. #2 Brief cardiac arrest secondary to above responded to epinephrine. #3 Severe advanced chronic obstructive pulmonary disease and bullous emphysema with underlying FEV1 value 36% of predicted. Both oxygen and steroid dependent. Continue Pulmicort, continue IV Solu-Medrol, #4 History of prolonged respiratory failure requiring intubation mechanical ventilation with subsequent tracheostomy and PEG tube placements and [facility]. #5 bilateral pneumothorax related to severe advanced stages of COPD and bullous emphysema Chest tubes in place. Repeat chest x-ray #6 Previous history of right-sided pneumothorax 2. #7 Chronic left upper lobe inflammatory opacity. #8 Hyperlipidemia. #9 Hypertension. Continue to monitor blood pressure #10 Chronic normocystic anemia, anemia of chronic disease. Monitor CBC #11 Fibromyalgia. Continue Dilaudid or [place] as needed #12 Generalized anxiety disorder and recurrent depression. #13 History of Crohn's. Consult gastroenterology. Continue opium. #14 GI prophylactics Protonix 40 mg IV daily #15 DVT prophylaxis heparin 5000 units subcu every 8 hours Discharge plan: Most likely/subacute rehab Impression and plan of care have been directed as dictated by the signing physician. Gaby Rothman nurse practitioner acting as scribe for signing physician.
--- NOTE | 2018-11-02 15:47 | P.GSCN ---
<Biju Monet - Last Filed: 11/02/18 14:22> History of Present Illness Consult date: 11/02/18 Reason for Consult: Bilateral pneumothorax with chest tubes and persistent air leak Requesting physician: Magali Cintron History of present illness: This is a 58-year-old female patient who is followed by Dr. James from primary care and Dr. Mistry for pulmonary medicine on an outpatient basis. The patient has a past medical history significant for severe end-stage COPD with home oxygen use and a previous FEV1 completed which showed a predicted value of 36%, she also has a history of steroid dependency, Crohn's disease with ileostomy, fibromyalgia, osteoarthritis, hypertension, hyperlipidemia, hypothyroidism, anxiety, depression, history of multiple recurrent episodes of spontaneous pneumothorax requiring Thoravent placement, tobacco dependence which she quit in April 2018 and history of pneumonia. The patient had a recent admission to the hospital in June 2018 with failure to wean from mechanical ventilator and subsequently had a tracheostomy and PEG tube placement. [facility] decannulated of her tracheostomy. On 10/26/2018 she presented to the emergency department here at [facility] via EMS as she was found unresponsive. ACLS protocols were initiated and the patient was subsequently intubated, the patient was in full cardiac arrest with spontaneous return of circulation after 1 round of CPR. A chest x-ray on presentation to the emergency department was completed which showed a left-sided pneumothorax and subsequently a left pleural chest tube placement. She was admitted to the hospital and placed in the intensive care unit for further critical care management. During the admission she also was discovered to have a right-sided pneumothorax requiring a right pleural chest tube placement. She was extubated on 10/30/2018 and is maintaining a good oxygen saturations on 3 L nasal cannula. Despite treatments with corticosteroids and bronchodilators she continues to have a persistent air leak to her left pleural chest tubes. Currently her right pleural chest tube remains in place to waterseal with no air leak present. Due to her history of recurrent pneumothorax and persistent air leak to her left pleural chest tubes a consult was placed to Dr. Ford Duarte for further evaluation for possible surgical intervention recommendations. Review of Systems A 14 point review systems was completed and was negative except as mentioned in HPI. Past Medical History Past Medical History: COPD, Fibromyalgia, GERD/Reflux, GI Bleed, Hyperlipidemia , Hypertension, Osteoarthritis (OA), Pneumonia, Syncope Additional Past Medical History / Comment(s): in past took meds for high blood pressure.COPD-02 3 liters n/c atc, crohn's, bowel obstructions, lower GI bleeds , hiatal hernia, osteoporosis, arthritis multiple joints, seasonal allergies, right-sided pneumothorax x2; ventilator 07/24/18 - transfer from [facility] r/t bollas History of Any Multi-Drug Resistant Organisms: None Reported Past Surgical History: Breast Surgery, Cholecystectomy, Hernia Repair, Hysterectomy, Orthopedic Surgery Additional Past Surgical History / Comment(s): Multiple bowel surgeries including total colectomy/ileostomy, ileostomy moved/repaired, R tube and R ovary removed due tectopic , total hysterectomy, leep procedure, laparoscopy for endometriosis, L breast lumpectomy-benign, r breast core bx- benign, EGD/colonoscopies. Right-sided Thora-vent placement May 09 and May 19. Eye surgery bilateral,arthroscopic knee surgery on he right due to ACL and Maniscal tear. past mechanical ventilator dependence,( trach and peg tube-since removed) Past Anesthesia/Blood Transfusion Reactions: No Reported Reaction Past Psychological History: Anxiety, Depression Smoking Status: Former smoker Past Alcohol Use History: None Reported Past Drug Use History: None Reported - Past Family History Mother Family Medical History: Cancer, COPD, Hypertension Additional Family Medical History / Comment(s): Mother at age 83 from COPD and osteoarthritis and had skin cancer. Father Family Medical History: Cancer, CVA/TIA, Dementia, Diabetes Mellitus Additional Family Medical History / Comment(s): Father is 90yrs old. Brother(s) Family Medical History: Cancer Additional Family Medical History / Comment(s): Patient had 5 brothers and one of them from melanoma at age 41. Sister(s) History Unknown: Yes Family Medical History: No Reported History Additional Family Medical History / Comment(s): Patient has one sister. Patient has no kids. Medications and Allergies Home Medications Medication Instructions Recorded Confirmed Type Adalimumab [Humira Pen] 40 mg SQ TU 06/21/14 10/26/18 History Latanoprost Ophth [Xalatan 0.005%] 1 drop BOTH EYES DAILY 05/21/17 10/26/18 History Cyanocobalamin [Vitamin B-12 1,000 mcg SQ Q30D 07/24/18 10/26/18 History Injection] Dicyclomine [Bentyl] 10 mg PO TID 07/24/18 10/26/18 History Ondansetron [Zofran] 4 mg PO Q6H PRN 07/24/18 10/26/18 History Albuterol Nebulized [Ventolin 2.5 mg INHALATION RT-TID PRN 09/09/18 10/26/18 History Nebulized] Ipratropium-Albuterol Nebulize 3 ml INHALATION RT-Q8H 09/09/18 10/26/18 History [Duoneb 0.5 mg-3 mg/3 ml Soln] Loperamide [Imodium] 2 mg PO Q6H PRN 09/09/18 10/26/18 History Budesonide 1 mg INHALATION RT-BID 09/27/18 10/26/18 History Gabapentin [Neurontin] 300 mg PO TID 09/27/18 10/26/18 History HYDROcodone/APAP 10-325MG [[place] 1 tab PO Q4H PRN 09/27/18 10/26/18 History 10-325] Nicotine Polacrilex [Nicorette] 4 mg BUCCAL Q6H PRN 09/27/18 10/26/18 History Opium Tincture 10mg/1ml 20 mg PO QID PRN 09/27/18 10/26/18 History Colchicine [Colcrys] 0.6 mg PO DAILY #21 each 10/16/18 10/26/18 Rx DULoxetine HCL [Cymbalta] 30 mg PO BID #60 josé manuel. 10/16/18 10/26/18 Rx Furosemide [Lasix] 20 mg PO DAILY #0 10/16/18 10/26/18 Rx LORazepam [Ativan] 0.25 mg PO TID 3 Days #5 tab 10/16/18 10/26/18 Rx Melatonin 15 mg PO HS tablet 10/16/18 10/26/18 Rx Metoprolol Tartrate [Lopressor] 50 mg PO BID #60 tab 10/16/18 10/26/18 Rx Nystatin 100,000 Unit/ml Susp 500,000 unit PO QID #120 ml 10/16/18 10/26/18 Rx [Mycostatin Oral Susp] Potassium Chloride ER [K-Dur 20] 10 meq PO DAILY #0 10/16/18 10/26/18 Rx Verapamil [Isoptin] 40 mg PO TID #90 tab 10/16/18 10/26/18 Rx busPIRone HCl [Buspar] 10 mg PO TID #90 tab 10/16/18 10/26/18 Rx predniSONE See Taper PO DIRECTED 10/26/18 10/26/18 History Allergies Allergy/AdvReac Type Severity Reaction Status Date / Time Iodinated Contrast- Oral and Allergy Anaphylaxis Verified 10/26/18 15:49 IV Dye pregabalin [From Lyrica] Allergy Unknown Verified 10/26/18 15:49 rofecoxib [From Vioxx] Allergy Unknown Verified 10/26/18 15:49 Sulfa (Sulfonamide Allergy Rash/Hives Verified 10/26/18 15:49 Antibiotics) aspirin AdvReac Internal Verified 10/26/18 15:49 Bleeding timolol [Timolol] AdvReac Nausea & Verified 10/26/18 15:49 Vomiting Surgical - Exam Vital Signs Temp Pulse Resp BP Pulse Ox 97.3 F L 101 H 40 H 150/108 90 L 10/26/18 15:31 10/26/18 15:31 10/26/18 15:31 10/26/18 15:31 10/26/18 15:31 - General well developed, no distress, no pain, chronically ill - Eyes PERRL, normal ocular movement - ENT White coating to her tongue. normal pinna, normal nares, normal mucosa, no hearing loss, no congestion, poor halfway - Neck Neck supple, no lymphadenopathy. no masses, no bruits, trachea midline, no venous distension - Respiratory Lung sounds are essentially clear throughout with few scattered expiratory wheezes. Respirations are symmetrical and nonlabored. Oxygen saturation are 94 % on 3 L nasal cannula. Left and right pleural chest tubes in place draining thin serosanguineous drainage. Positive air leak to her left pleural chest tubes. No airleak present to her right pleural chest tube. Left pleural chest tubes remained to low continuous wall suction -20 cm H2O. Right pleural chest tube remains to water seal. - Cardiovascular Regular rhythm with a tachycardic rate. S1 and S2 present, negative for S3, gallop or murmur. Bedside telemetry showing sinus tachycardia heart rate 112. No edema present. Sequential compression devices in place to bilateral lower extremities. - Abdomen Abdomen is soft, nontender and nondistended. Ileostomy in place to right lower abdominal quadrant. No guarding or rigidity. No organomegaly. - Genitourinary Ribera catheter for accurate I&O. Draining clear yellow urine. - Rectum Deferred - Integumentary Skin is warm and dry. No clubbing or cyanosis present. There are scattered excoriated areas to her mid back. No drainage present. no rash, no growths, no abnormal pigmentation - Neurologic normal coordination, normal sensation - Musculoskeletal Generalized weakness. normal gait, normal posture - Psychiatric oriented to time, oriented to person, oriented to place, speech is normal, memory intact Results - Labs 11/02/18 04:50 11/02/18 04:50 Abnormal Lab Results - Last 24 Hours (Table) 11/01/18 11/01/18 11/02/18 Range/Units 16:54 20:55 04:50 WBC 12.6 H (3.8-10.6) k/uL RBC 3.27 L (3.80-5.40) m/uL Hgb 9.6 L (11.4-16.0) gm/dL Hct 30.2 L (34.0-46.0) % RDW 16.6 H (11.5-15.5) % Sodium (137-145) mmol/L Carbon Dioxide (22-30) mmol/L Creatinine (0.52-1.04) mg/dL Glucose (74-99) mg/dL POC Glucose (mg/dL) 125 H 138 H (75-99) mg/dL 11/02/18 11/02/18 11/02/18 Range/Units 04:50 07:04 11:34 WBC (3.8-10.6) k/uL RBC (3.80-5.40) m/uL Hgb (11.4-16.0) gm/dL Hct (34.0-46.0) % RDW (11.5-15.5) % Sodium 135 L (137-145) mmol/L Carbon Dioxide 34 H (22-30) mmol/L Creatinine 0.50 L (0.52-1.04) mg/dL Glucose 130 H (74-99) mg/dL POC Glucose (mg/dL) 100 H 159 H (75-99) mg/dL Microbiology - Last 24 Hours (Table) 10/26/18 16:28 Blood Culture - Final Blood No Growth after 144 hours Diabetes panel 11/02/18 Range/Units 04:50 Sodium 135 L (137-145) mmol/L Potassium 4.0 (3.5-5.1) mmol/L Chloride 99 (98-107) mmol/L Carbon Dioxide 34 H (22-30) mmol/L BUN 13 (7-17) mg/dL Creatinine 0.50 L (0.52-1.04) mg/dL Glucose 130 H (74-99) mg/dL Calcium 8.7 (8.4-10.2) mg/dL Calcium panel 11/02/18 Range/Units 04:50 Calcium 8.7 (8.4-10.2) mg/dL Phosphorus 3.7 (2.5-4.5) mg/dL Pituitary panel 11/02/18 Range/Units 04:50 Sodium 135 L (137-145) mmol/L Potassium 4.0 (3.5-5.1) mmol/L Chloride 99 (98-107) mmol/L Carbon Dioxide 34 H (22-30) mmol/L BUN 13 (7-17) mg/dL Creatinine 0.50 L (0.52-1.04) mg/dL Glucose 130 H (74-99) mg/dL Calcium 8.7 (8.4-10.2) mg/dL Adrenal panel 11/02/18 Range/Units 04:50 Sodium 135 L (137-145) mmol/L Potassium 4.0 (3.5-5.1) mmol/L Chloride 99 (98-107) mmol/L Carbon Dioxide 34 H (22-30) mmol/L BUN 13 (7-17) mg/dL Creatinine 0.50 L (0.52-1.04) mg/dL Glucose 130 H (74-99) mg/dL Calcium 8.7 (8.4-10.2) mg/dL - Imaging Chest x-ray: report reviewed, image reviewed Assessment and Plan (1) Acute exacerbation of chronic obstructive airways disease Current Visit: Yes Status: Acute Code(s): J44.1 - CHRONIC OBSTRUCTIVE PULMONARY DISEASE W (ACUTE) EXACERBATION SNOMED Code(s): 016177450 (2) Bilateral pneumothorax Current Visit: Yes Status: Acute Code(s): J93.9 - PNEUMOTHORAX, UNSPECIFIED SNOMED Code(s): 99362865 (3) Cardiopulmonary arrest with successful resuscitation Current Visit: Yes Status: Acute Code(s): I46.9 - CARDIAC ARREST, CAUSE UNSPECIFIED SNOMED Code(s): 664636223 (4) Failure to wean from mechanical ventilation Current Visit: Yes Status: Acute Code(s): Z99.11 - DEPENDENCE ON RESPIRATOR [VENTILATOR] STATUS SNOMED Code(s): 013096567 Plan: Patient was seen and examined. Her chart diagnostics were reviewed. We will order nystatin swish and swallow for her thrush. We will order an incentive spirometry and recommend use of the incentive spirometry every hour while awake. Dr. Duarte has seen and examined the patient. We will order a CT of the chest without contrast. Recommendations for now to continue to evaluate and monitor air leak to her left pleural chest tubes with further recommendations to follow. Thank you Dr. Cintron for this consult and we will look forward to working with you in the care of your patient. Time with Patient: Greater than 30 <Ford Duarte - Last Filed: 11/09/18 13:13> Surgical - Exam Vital Signs Temp Pulse Resp BP Pulse Ox 97.3 F L 101 H 40 H 150/108 90 L 10/26/18 15:31 10/26/18 15:31 10/26/18 15:31 10/26/18 15:31 10/26/18 15:31 Results - Labs 11/09/18 04:45 11/09/18 04:45 Abnormal Lab Results - Last 24 Hours (Table) 11/08/18 11/09/18 11/09/18 Range/Units 16:40 04:45 04:45 WBC 14.7 H (3.8-10.6) k/uL RBC 3.11 L (3.80-5.40) m/uL Hgb 9.1 L (11.4-16.0) gm/dL Hct 28.4 L (34.0-46.0) % RDW 18.2 H (11.5-15.5) % Neutrophils # 11.1 H (1.3-7.7) k/uL Carbon Dioxide 34 H (22-30) mmol/L BUN 20 H (7-17) mg/dL Glucose 111 H (74-99) mg/dL POC Glucose (mg/dL) 237 H (75-99) mg/dL 11/09/18 11/09/18 Range/Units 06:34 11:47 WBC (3.8-10.6) k/uL RBC (3.80-5.40) m/uL Hgb (11.4-16.0) gm/dL Hct (34.0-46.0) % RDW (11.5-15.5) % Neutrophils # (1.3-7.7) k/uL Carbon Dioxide (22-30) mmol/L BUN (7-17) mg/dL Glucose (74-99) mg/dL POC Glucose (mg/dL) 114 H 146 H (75-99) mg/dL Diabetes panel 11/09/18 Range/Units 04:45 Sodium 138 (137-145) mmol/L Potassium 4.2 (3.5-5.1) mmol/L Chloride 100 (98-107) mmol/L Carbon Dioxide 34 H (22-30) mmol/L BUN 20 H (7-17) mg/dL Creatinine 0.59 (0.52-1.04) mg/dL Glucose 111 H (74-99) mg/dL Calcium 9.6 (8.4-10.2) mg/dL Calcium panel 11/09/18 Range/Units 04:45 Calcium 9.6 (8.4-10.2) mg/dL Pituitary panel 11/09/18 Range/Units 04:45 Sodium 138 (137-145) mmol/L Potassium 4.2 (3.5-5.1) mmol/L Chloride 100 (98-107) mmol/L Carbon Dioxide 34 H (22-30) mmol/L BUN 20 H (7-17) mg/dL Creatinine 0.59 (0.52-1.04) mg/dL Glucose 111 H (74-99) mg/dL Calcium 9.6 (8.4-10.2) mg/dL Adrenal panel 11/09/18 Range/Units 04:45 Sodium 138 (137-145) mmol/L Potassium 4.2 (3.5-5.1) mmol/L Chloride 100 (98-107) mmol/L Carbon Dioxide 34 H (22-30) mmol/L BUN 20 H (7-17) mg/dL Creatinine 0.59 (0.52-1.04) mg/dL Glucose 111 H (74-99) mg/dL Calcium 9.6 (8.4-10.2) mg/dL Assessment and Plan Plan: The patient was seen and examined. I agree with the above assessment and plan. The patient is a 58-year-old female, known to our service from previous admissions, with a history of COPD, tobacco use, and steroid dependency who previously had a right Thoravent secondary to spontaneous pneumothorax. 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 On this occasion, she was found unresponsive and did require CPR. She was intubated and found to have bilateral pneumothoraces for which bilateral chest tubes were placed. She has since been extubated and we are now consulted for treatment recommendations. The chest tube in the right pleural space has no air leak. There are 2 chest tubes on the left side and an air leak is appreciated. She appears to be comfortable on nasal cannula. We will therefore continue the chest tubes to suction for now. I would like to repeat a computed tomography scan of the chest as her last imaging study was quite a while ago. She may eventually need surgical intervention with resection of bullae. We will follow along with you with additional recommendations forthcoming.
[2018-11-02] MEDS: NYSTATIN 100,000 UNIT/ML SUSP 500,000 UNIT/5 ML CUP PO SCH ×2 (16:53→22:08)
[2018-11-02 17:24] LABS: Glucose,Whole Blood 120 mg/dL (75-99)
[2018-11-02 20:57] LABS: Glucose,Whole Blood 164 mg/dL (75-99)
[2018-11-02] MEDS: METOPROLOL TARTRATE 25 MG TAB PO SCH (21:56)
[2018-11-02] MEDS: MELATONIN 5 MG TABLET PO SCH (21:57)
[2018-11-02] MEDS: LATANOPROST 0.005% OPHTH DROPS 2.5 ML BTL BOTH EYES SCH (22:01)
[2018-11-03] MEDS: IPRATROPIUM-ALBUTEROL 3 ML NEB INHALATION SCH ×6 (00:34→19:59)
[2018-11-03] MEDS: HYDROmorphone 0.5 MG/0.5 ML SYRINGE IVP PRN ×6 (02:27→22:27)
[2018-11-03] MEDS: HYDROcodone/APAP 10-325MG 1 EACH TAB PO PRN ×3 (05:22→20:34)
[2018-11-03 05:45] LABS: Anisocytosis Slight; HCT 27.6 % (34.0-46.0); HGB 8.8 gm/dL (11.4-16.0); MCH 28.9 pg (25.0-35.0); MCHC 31.8 g/dL (31.0-37.0); MCV 90.9 fL (80.0-100.0); Mean Platelet Volume 6.7; Platelet Count 273 k/uL (150-450); RBC 3.03 m/uL (3.80-5.40); RDW 17.3 % (11.5-15.5)
[2018-11-03 06:11] LABS: Carbon Dioxide 40 mmol/L (22-30); Chloride 96 mmol/L (98-107); Glucose 100 mg/dL (74-99); Sodium 135 mmol/L (137-145)
[2018-11-03 06:12] LABS: Anion Gap -1 mmol/L; Blood Urea Nitrogen 12 mg/dL (7-17); Calcium 8.7 mg/dL (8.4-10.2); Magnesium 1.7 mg/dL (1.6-2.3); Phosphorus 3.5 mg/dL (2.5-4.5)
[2018-11-03] MEDS: FORMOTEROL FUMARATE 20 MCG/2 ML NEBU INHALATION SCH ×2 (07:02→19:58)
[2018-11-03] MEDS: BUDESONIDE 1 MG/2 ML NEBU INHALATION SCH ×2 (07:02→19:59)
--- NOTE | 2018-11-03 07:03 | XR ---
EXAMINATION TYPE: XR chest 1V portable DATE OF EXAM: 11/03/2018 HISTORY: Chest tubes and follow up. REFERENCE: Previous study dated 11/02/2018. FINDINGS: There are bilateral pleural drains in place. There is a left subclavian catheter in place. Its tip is in the superior vena cava. There is some patchy left upper lobe airspace disease. There is a right-sided effusion with associated atelectasis. The heart is not enlarged. IMPRESSION: DEVELOPING LEFT UPPER LOBE INFILTRATE.
[2018-11-03 07:38] LABS: Glucose,Whole Blood 105 mg/dL (75-99)
[2018-11-03] MEDS: INSULIN ASPART 100 UNIT/ML 1 ML 10 ML VIAL SQ SCH ×4 (08:43→20:29)
[2018-11-03] MEDS: METOPROLOL TARTRATE 50 MG TAB PO SCH ×2 (08:49→20:37)
[2018-11-03] MEDS: NYSTATIN 100,000 UNIT/ML SUSP 500,000 UNIT/5 ML CUP PO SCH ×4 (08:49→22:00)
[2018-11-03] MEDS: PANTOPRAZOLE 40 MG TABLET PO SCH (08:49)
[2018-11-03] MEDS: GABAPENTIN 300 MG CAP PO SCH ×3 (08:49→22:00)
[2018-11-03] MEDS: HEPARIN SODIUM,PORCINE 5,000 UNIT/ML 1 ML VIAL SQ SCH ×2 (08:50→17:15)
[2018-11-03] MEDS: predniSONE 10 MG TAB PO SCH (08:50)
[2018-11-03] MEDS ORDERED: ONDANSETRON 4 MG/2 ML VIAL IVP PRN (08:53)
[2018-11-03] MEDS: DICYCLOMINE 10 MG CAP PO SCH ×3 (08:54→20:36)
[2018-11-03] MEDS: busPIRone HCl 10 MG TAB PO SCH ×3 (08:54→22:00)
[2018-11-03] MEDS: DULoxetine HCL 30 MG CAPSULE.DR PO SCH ×2 (08:54→20:29)
[2018-11-03] MEDS: COLCHICINE 0.6 MG EACH PO SCH (08:54)
[2018-11-03] MEDS: SODIUM CHLORIDE 0.9% 1,000 ML IV SCH ×2 (10:36→19:00)
--- NOTE | 2018-11-03 11:00 | P.PN ---
Subjective Progress Note Date: 11/03/18 This is a 58-year-old female who follows with Dr. James as her primary care physician. She has a history of hyperlipidemia, hypothyroidism, anemia, fibromyalgia, anxiety/depression, COPD. She presented to the emergency department with dyspnea. Patient was at home when she experienced rest for distress and called EMS. In route to the hospital she was put on a BiPAP due to minimal responsiveness. Upon arrival to the emergency department her initial vital signs were tachycardic with no measurable pulse oximetry and she was hypotensive. Patient was positive for JVD, 1 view chest was obtained for a positive pneumothorax 50% on the left and a possible pneumothorax on the right. A chest tube was placed on the left and patient had failure to respond to treatment. At which CPR was initiated by ACLS protocol for approximately 1 minute. A central line was placed in the left subclavian vein during the code. Patient was intubated. An repeat chest x-ray showed a pneumothorax on the right and a right-sided 24-Cypriot chest tube was placed. Patient's vital signs improved and she was transported to ICU for continuation of care. Patient presents intubated at this time. She is awake and able to answer questions appropriately. Her current vent setting assist control of 16, tidal volume 350 , FiO2 at 35% and a PEEP of 5. Her morning blood gases reveal a pO2 of 85 pCO2 of 41 pH 7.38. H&H is currently sedated with 30 mics per KG per minute of debridement and, fentanyl drip at 1 MCG per KG per hour. Patient is able to follow commands she is able to move all 4 extremities. Her white count is 7.6, hemoglobin of 10, creatinine 0.6. 10/28: Patient continues to be sedated and intubated. Chest x-ray this morning showed significant progression of left-sided pneumothorax estimated at 50%. Left lower lobe pleural catheter appears unchanged in position. It increased subcutaneous air identified. Subsequently the patient underwent a another chest tube insertion on the left side to help relieve the pneumothorax. Repeat checks x-ray showed a persistent left apical pneumothorax estimated at 15-20%. A new left-sided chest tube place. Patient is receiving tube feedings through NG tube at this time. She continues to be on propofol at 65 mics per KG per minute and fentanyl drip at 1 nury per KG per hour. Patient also is getting Dilaudid and Arbovale as needed for pain. Her brought in opium to help with abdominal discomfort. Vent settings are unchanged the vent setting assist control 16, tidal volume of 350, FiO2 at 35%, and a PEEP of 5. Patient's urinary output is 50-70 mL per hour. Discussed findings with at the bedside in the plan to continue with sedation and intubation to rest the lungs and we will reassess tomorrow for possible weaning. states that this happened a few months ago where she was on prolonged intubation due to her lungs not recovering. 10/29: Patient continues to be sedated and intubated. Chest x-ray does show improvement to bilateral pneumothorax and [address]. Patient has been tachycardic overnight with a rate in the 130s. Patient grimaces in pain and withdraws. Patient continue to see tube feedings through NG tube. She continues to be on propofol and fentanyl for sedation. Patient was on Nimbex overnight however that has been DC'd. Vent settings are unchanged with the vent assist control 16, tidal volume 350, FiO2 at 35%, and a PEEP of 5. Patient 's urinary output continues to be 50-70 ML's per hour. Discussed case with pulmonology and consult for trach and PEG tube is in place. Pulmonology does not feel the patient will be successful in weaning. 10/30/18: Patient is sitting up in bed extubated. Patient was successfully weaned this morning. She is alert and orientated 3 and able to answer questions appropriately. Patient is complaining of pain to the chest due to the 3 chest tubes that are in place. Patient does have a history of Crohn's and discussed the medication she normally takes for them including Humira which we will hold at this time. Patient continues to be on sentinel drip for pain she also is receiving Dilaudid as needed for breakthrough pain. CBC 11.3, hemoglobin 8.7, potassium 4.7 BUN 28 creatinine 0.5. 10/31: Patient remains in the intensive care unit. She was successfully extubated yesterday and is currently pulse ox is 96% on 4 L nasal cannula. White count is 13.1, hemoglobin 9.4, CO2 is 32, electrolytes within normal limits, creatinine 0.54. Sputum cultures positive for Tish albicans. Urine culture finalized with no growth and blood culture showing no growth after 96 hours. Repeat chest x-ray shows 2 chest tubes on the left and one on the right. No appreciable pneumothorax. Relative upper lung lucency suggesting underlying emphysema. Continue small pleural effusions with adjacent atelectasis or consolidations. Cardiothoracic surgery signing off the case is no plan is for trach and PEG placement. Patient remains with 2 left-sided chest tubes in 1 right-sided chest tube. Pulmonary is planning to maintain chest tubes. Solu-Medrol transitioned to prednisone. color television console monitor is a sinus tachycardia. Ribera catheter is in place draining adequate amount of urine. Ileostomy with dark brown stool. Patient has been seen by GI with recommendations to continue Humira every 2 weeks and can be restarted after discharge the patient had verbalized that she did not want to continue on Humira. Patient is to follow-up with Dr. Verma in the office as scheduled. Patient currently has [facility] home care in place. PT to start working with patient today. Patient has been [facility]. Home medications will be reviewed. 11/01: Patient remains in the intensive care unit and breathing continues to improve slowly. Pulse ox is 96% on 3 L nasal cannula, heart rates running in the 90s. White count is 13.1, hemoglobin 9.6, creatinine 0.54. Electrolytes within normal limits. Patient is requesting using her home nicotine gum which will be ordered. Sputum culture showing Tish. 11/02: Patient remains in the intensive care unit. Repeat chest x-ray shows bilateral chest tubes remain unchanged. No evidence of sizable pneumothorax within either lung at this time. CAT scan of the chest reveals bilateral pneumothorax disease. Chest tubes are present. Consider reposition a right- sided chest tube. Bilateral apical masses left side is increasing in size. She does have bilateral chest tubes and there is plan for possibly removing the right side in the next couple days. There is a considerable leak on one of the left sided chest tubes in cardiothoracic surgery has been reconsulted. Patient is working with physical therapy and occupational therapy at the bedside. 11/03: Patient remains in the intensive care unit. She has 2 left-sided chest tubes in 1 right-sided chest tube in place. She states she is having cough with sputum production. She is using her incentive spirometry. Overall, she states her breathing is improving slowly. She does complain of chest pain more so on the left side. She does state that yesterday she started having increased stool from her ostomy and feels that she is having a flareup of her Crohn's. She does have opium available. We will start her back on IV fluids to avoid dehydration, monitor electrolytes. Heart rate remains elevated for which Lopressor will be increased to 50 mg twice daily which is her home dose. Verapamil is on hold due to hypotension. Review Of Systems: Constitutional: Pain to the chest due to chest tube No fever, no chills, no night sweats. No weight change. No weakness, fatigue or lethargy. EENT: No headache. No blurred vision or double vision, no loss of vision. No loss of Hearing, no ringing in the ears, no dizziness. No nasal drainage or congestion. No epistaxis. No sore throat. Lungs: No shortness of breath, cough, no sputum production. No wheezing. Cardiovascular: No chest pain, no lower extremity edema. No palpitations. No paroxysmal nocturnal dyspnea. No orthopnea. No lightheadedness or dizziness. No syncopal episodes. Abdominal: no abdominal discomfort. Reports nausea, denies vomiting. Reports diarrhea. No constipation. No bloody or tarry stools. Reports loss of appetite. Genitourinary: No dysuria, increased frequency, urgency. No urinary retention. Musculoskeletal: No myalgias. No muscle weakness, no gait dysfunction, no frequent falls. No back pain. No neck pain. Integumentary: No wounds, no lesions. No rash or pruritus. No unusual bruising. No change in hair or nails. Neurologic: No aphasia. No facial droop. No change in mentation. No head injury. No headache. No paralysis. No paresthesia. Psychiatric: No depression. No anxiety. No mood swings. Endocrine: No abnormal blood sugars. No weight change. Objective - Vital Signs Vital signs: Vital Signs Temp 97.4 F L 11/03/18 00:00 Pulse 106 H 11/03/18 07:21 Resp 12 11/03/18 07:00 BP 106/72 11/03/18 07:00 Pulse Ox 96 11/03/18 07:00 Intake & Output 11/02/18 11/03/18 11/03/18 18:59 06:59 18:59 Intake Total 200 480 Output Total 1565 1063 240 Balance -1365 -583 -240 Weight 55.7 kg Intake: IV 200 Magnesium Sulfate-D5w Pmx 200 1 gm In Dextrose/Water 1 100ml.bag @ 100 mls/hr IVPB Q1H REPLACED BY [facility] Rx#: [id number] Oral 480 Output: Chest Tube Drainage 173 Chest Tube Left Lateral 80 Chest Chest Tube Left Mid- 93 Axillary Chest Urine 965 690 40 Stool 600 200 200 Other: Voiding Method Indwelling Catheter Indwelling Catheter - Exam General appearance: Present: average body habitus, cooperative, no acute distress. Patient is standing at the bedside with physical therapy. - EENT Eyes: Present: anicteric sclerae, EOMI, PERRLA ENT: Present: hearing grossly normal, NA/AT - Neck Neck: Present: normal ROM. Absent: lymphadenopathy - Respiratory Respiratory: bilateral: diminished, wheezing, no accessory muscle usage negative : dullness, rales, rhonchi, prolonged expiration, prolonged inspiration, other 2 left-sided chest tubes and 1 right-sided chest tube - Cardiovascular Rhythm: regular Heart sounds: normal: S1, S2 Abnormal Heart Sounds: Absent: systolic murmur, diastolic murmur, rub, S3 Gallop , S4 Gallop, click, other - Gastrointestinal General gastrointestinal: Present: normal bowel sounds, soft. Mild generalized tenderness, ileostomy in place - Integumentary Integumentary: Present: pale - Neurologic Neurologic: Present: CNII-XII intact - Musculoskeletal Musculoskeletal: Present: generalized weakness, strength equal bilaterally - Psychiatric Psychiatric: Present: A&O x's 3, appropriate affect, intact judgment & insight - Labs CBC & Chem 7: 11/03/18 05:15 11/03/18 05:15 Labs: Abnormal Lab Results - Last 24 Hours (Table) 11/02/18 11/02/18 11/02/18 Range/Units 04:50 04:50 11:34 WBC 12.6 H (3.8-10.6) k/uL RBC 3.27 L (3.80-5.40) m/uL Hgb 9.6 L (11.4-16.0) gm/dL Hct 30.2 L (34.0-46.0) % RDW 16.6 H (11.5-15.5) % Sodium 135 L (137-145) mmol/L Chloride (98-107) mmol/L Carbon Dioxide 34 H (22-30) mmol/L Creatinine 0.50 L (0.52-1.04) mg/dL Glucose 130 H (74-99) mg/dL POC Glucose (mg/dL) 159 H (75-99) mg/dL 11/02/18 11/02/18 11/03/18 Range/Units 17:06 20:45 05:15 WBC 13.0 H (3.8-10.6) k/uL RBC 3.03 L (3.80-5.40) m/uL Hgb 8.8 L (11.4-16.0) gm/dL Hct 27.6 L (34.0-46.0) % RDW 17.3 H (11.5-15.5) % Sodium (137-145) mmol/L Chloride (98-107) mmol/L Carbon Dioxide (22-30) mmol/L Creatinine (0.52-1.04) mg/dL Glucose (74-99) mg/dL POC Glucose (mg/dL) 120 H 164 H (75-99) mg/dL 11/03/18 11/03/18 Range/Units 05:15 07:27 WBC (3.8-10.6) k/uL RBC (3.80-5.40) m/uL Hgb (11.4-16.0) gm/dL Hct (34.0-46.0) % RDW (11.5-15.5) % Sodium 135 L (137-145) mmol/L Chloride 96 L (98-107) mmol/L Carbon Dioxide 40 H (22-30) mmol/L Creatinine 0.51 L (0.52-1.04) mg/dL Glucose 100 H (74-99) mg/dL POC Glucose (mg/dL) 105 H (75-99) mg/dL Assessment and Plan Plan: #1 Acute hypoxic respiratory failure secondary to acute exacerbation of severe oxygen dependent chronic obstructive pulmonary disease, complicated by bilateral pneumothorax. Status post bilateral chest tube placements. Patient has been successfully extubated. Continue Dilaudid 1 mg every 3 hours as needed for break through pain and Arbovale as needed. Continue DuoNeb treatments every 4 hours scheduled and as needed, Pulmicort 1 mg twice daily, Perforomist twice daily, prednisone. Pulmonary consult appreciated Cardiothoracic surgery has been reconsulted. #2 Brief cardiac arrest secondary to above responded to epinephrine. #3 Severe advanced chronic obstructive pulmonary disease and bullous emphysema with underlying FEV1 value 36% of predicted. Both oxygen and steroid dependent. Continue Pulmicort, continue prednisone. #4 History of prolonged respiratory failure requiring intubation mechanical ventilation with subsequent tracheostomy and PEG tube placements [facility]. #5 bilateral pneumothorax related to severe advanced stages of COPD and bullous emphysema Chest tubes in place. Repeat chest x-ray #6 Previous history of right-sided pneumothorax 2. #7 Chronic left upper lobe inflammatory opacity. #8 Hyperlipidemia. #9 Hypertension. Continue to monitor blood pressure #10 Chronic normocystic anemia, anemia of chronic disease. Monitor CBC #11 Fibromyalgia. Continue Dilaudid or Arbovale as needed #12 Generalized anxiety disorder and recurrent depression. #13 History of Crohn's with possible exacerbation. Consult gastroenterology. Continue opium. IV fluids 0.9 normal saline at 100 mL per hour. #14 GI prophylactics Protonix 40 mg IV daily #15 DVT prophylaxis heparin 5000 units subcu every 8 hours Discharge plan: Most likely/subacute rehab Impression and plan of care have been directed as dictated by the signing physician. Gaby Rothman nurse practitioner acting as scribe for signing physician.
--- NOTE | 2018-11-03 11:47 | P.PN ---
Subjective Progress Note Date: 11/03/18 Principal diagnosis: Severe end-stage COPD with home oxygen use and previous FEV1 completed which showed her predicted value of 36%, history of previous tracheostomy and PEG tube placement in June 2018, home oxygen use, fibromyalgia, GERD, history of GI bleed, hypertension, hyperlipidemia, history of pneumonia, osteoarthritis , history of multiple pneumothorax with Thoravent placement 2, history of Crohn 's disease with multiple bowel surgeries and previous tobacco dependence quit smoking 2 years ago. The patient is currently sitting up to the bedside chair. She is in no acute distress. She is complaining of pain to her left chest tube insertion sites rating her pain 4 out of 10 currently on the pain scale. She denies any complaints of shortness of breath while sitting up to the chair, but reports that when she is ambulating she does get short of breath. She is currently on 3 L nasal cannula with oxygen saturations 96% and achieving 750 mL on her incentive spirometry. She remains with 2 left pleural chest tubes and one right pleural chest tube. Her left pleural chest tubes are showing a positive air leak, remains to continuous low wall suction. Objective - Vital Signs Vital signs: Vital Signs Temp 98.2 F 11/03/18 08:00 Pulse 124 H 11/03/18 11:19 Resp 27 H 11/03/18 10:00 BP 108/76 11/03/18 10:00 Pulse Ox 94 L 11/03/18 10:00 Intake & Output 11/02/18 11/03/18 11/03/18 18:59 06:59 18:59 Intake Total 200 480 150 Output Total 1565 1063 380 Balance -1365 -583 -230 Weight 55.7 kg Intake: IV 200 Magnesium Sulfate-D5w Pmx 200 1 gm In Dextrose/Water 1 100ml.bag @ 100 mls/hr IVPB Q1H [facility] Rx#: [id number] Oral 480 150 Output: Chest Tube Drainage 173 Chest Tube Left Lateral 80 Chest Chest Tube Left Mid- 93 Axillary Chest Urine 965 690 180 Stool 600 200 200 Other: Voiding Method Indwelling Catheter Indwelling Catheter Indwelling Catheter - Constitutional General appearance: Present: cooperative, no acute distress - Respiratory Details: Lung sounds are diminished throughout. Respirations are symmetrical and nonlabored. Oxygen saturation are 96% on 3 L nasal cannula. She is achieving 750 mL on her incentive spirometry. Left pleural chest tubes remain in place to low continuous wall suction -20 cm H2O. Air leak is present. Draining thin serosanguineous drainage. Right pleural chest tube remains in place and to waterseal. Draining thin serosanguineous drainage. No air leak is present. - Cardiovascular Details: Regular rhythm and tachycardic rate. S1 and S2 present, negative for S3, gallop or murmur. Bedside telemetry showing sinus tachycardia heart rate 116. No edema is present. Knee-high EMELIA hose and sequential compression devices in place to her bilateral lower extremities. Left subclavian triple-lumen central line in place and functioning. - Gastrointestinal Gastrointestinal Comment(s): Abdomen is soft, nontender and nondistended. Active bowel sounds all 4 abdominal quadrants. Tolerating oral intake. Right lower quadrant ileostomy in place with loose brown stool. - Genitourinary Genitourinary Comment(s): Ribera catheter for accurate I&O. Draining clear yellow urine, with some sedimentation present. 395 mL output in the last 8 hours. - Integumentary Integumentary Comment(s): Skin is warm and dry. No clubbing or cyanosis present. Small excoriated areas to her mid back, excoriated areas are dry and no drainage is present. - Neurologic Neurologic: Present: CNII-XII intact - Musculoskeletal Musculoskeletal: Present: gait normal, generalized weakness, strength equal bilaterally - Psychiatric Psychiatric: Present: A&O x's 3, appropriate affect, intact judgment & insight - Allied health notes Allied health notes reviewed: nursing - Labs CBC & Chem 7: 11/03/18 05:15 11/03/18 05:15 Labs: Abnormal Lab Results - Last 24 Hours (Table) 11/02/18 11/02/18 11/02/18 Range/Units 11:34 17:06 20:45 WBC (3.8-10.6) k/uL RBC (3.80-5.40) m/uL Hgb (11.4-16.0) gm/dL Hct (34.0-46.0) % RDW (11.5-15.5) % Sodium (137-145) mmol/L Chloride (98-107) mmol/L Carbon Dioxide (22-30) mmol/L Creatinine (0.52-1.04) mg/dL Glucose (74-99) mg/dL POC Glucose (mg/dL) 159 H 120 H 164 H (75-99) mg/dL 11/03/18 11/03/18 11/03/18 Range/Units 05:15 05:15 07:27 WBC 13.0 H (3.8-10.6) k/uL RBC 3.03 L (3.80-5.40) m/uL Hgb 8.8 L (11.4-16.0) gm/dL Hct 27.6 L (34.0-46.0) % RDW 17.3 H (11.5-15.5) % Sodium 135 L (137-145) mmol/L Chloride 96 L (98-107) mmol/L Carbon Dioxide 40 H (22-30) mmol/L Creatinine 0.51 L (0.52-1.04) mg/dL Glucose 100 H (74-99) mg/dL POC Glucose (mg/dL) 105 H (75-99) mg/dL - Imaging and Cardiology Chest x-ray: report reviewed, image reviewed Assessment and Plan (1) Acute exacerbation of chronic obstructive airways disease Current Visit: Yes Status: Acute Code(s): J44.1 - CHRONIC OBSTRUCTIVE PULMONARY DISEASE W (ACUTE) EXACERBATION SNOMED Code(s): 835668014 (2) Bilateral pneumothorax Current Visit: Yes Status: Acute Code(s): J93.9 - PNEUMOTHORAX, UNSPECIFIED SNOMED Code(s): 54026514 (3) Cardiopulmonary arrest with successful resuscitation Current Visit: Yes Status: Acute Code(s): I46.9 - CARDIAC ARREST, CAUSE UNSPECIFIED SNOMED Code(s): 279812242 (4) Failure to wean from mechanical ventilation Current Visit: Yes Status: Acute Code(s): Z99.11 - DEPENDENCE ON RESPIRATOR [VENTILATOR] STATUS SNOMED Code(s): 940909548 Plan: 1. No plan for surgical intervention at this time. We will continue to monitor her chest tubes for air leak. 2. Continued medical management per primary care service, pulmonology. 3. GI/DVT prophylaxis. 4. Continue to encourage use of her incentive spirometry every hour while awake. 5. Increase activity as tolerated. Out of bed for all meals. 6. More recommendations to follow based on patient's clinical course. Time with Patient: Greater than 30
[2018-11-03 11:58] LABS: Glucose,Whole Blood 165 mg/dL (75-99)
--- NOTE | 2018-11-03 12:05 | P.PN ---
Subjective Progress Note Date: 11/03/18 Principal diagnosis: Acute hypoxic respiratory failure secondary to COPD and bilateral pneumothoraces. This is a 58-year-old female patient who follows with Dr. James as her primary care physician. She has a history of hyperlipidemia, hypothyroidism, anemia, fibromyalgia, anxiety/depression. Chest has a history of severe oxygen- dependent bullous emphysema/COPD with FEV1 value of 36% of predicted and a chronic left upper lobe inflammatory opacity that was nonmalignant. She has a history of prolonged respiratory failure requiring mechanical ventilation and was subsequently tr[facility] and [facility]. She had since been decannulated. She's had multiple admissions for COPD exacerbations most recently discharged from here on 10/16/2018. She was brought in by EMS to the emergency room yesterday with severe respiratory distress requiring initially BiPAP support. She was found to have bilateral pneumothorax and chest tubes were placed as well as a left thoravent. She had a brief cardiac arrest requiring epinephrine. She was subsequently intubated and placed on mechanical ventilator and transferred here to the intensive care unit. She is seen today in consultation with current vent settings assist- control of 16, tidal volume 350, FiO2 of 35% and a PEEP of 5. Morning blood gases reveal a P O2 of 85, pCO2 41, pH 7.38. Her measured airway resistance is currently 8.8. She is sedated on to prevent at 30 mcg/kg/m., Fentanyl drip at 1 mcg/kg per hour, 1.9 normal saline at 75 ML's per hour. She does follow simple commands. She is moving all fours. Cultures are pending. White count 7.6. Hemoglobin 10.0. Creatinine 0.69. She's been initiated and DuoNeb inhalations. Patient was reevaluated today on 10/29/2018, remains in the ICU on mechanical ventilation. Patient has been on same ventilator settings, tidal volume of 350 assist-control rate of 16 FiO2 of 35% and PEEP of 5. Patient remains on fentanyl drip, she is also on propofol drip, and both are basically maximized. Last night Dr. Meza placed the patient on Nimbex drip. However I have discontinued the Nimbex drip today, and I will try to control her agitation with fentanyl and propofol only. Patient continues to have left-sided chest tubes, and 1 right sided chest tube, all of them are showing a bit of a leak. Her ABG showed a pO2 of 120 pCO2 of 40 0 pH of 7.44. Basic metabolic profile is normal, WBC count is 10.9 hemoglobin is 9.2. Chest x-ray did show improvement in aeration of the right lung base with persistent left basilar opacity may represent mostly atelectasis or possibly pneumonia. No sizable pneumothorax is noted on both sides. Patient remains on multiple bronchodilators, and on Solu-Medrol. Today I discussed with the nurses and with the admitting physician that it would be best to consider tracheostomy and PEG tube placement since the patient is going to be almost extremely difficult to wean successfully. She had a similar episode in the past, and she did require [facility]. Patient was reevaluated today on 10/30/2018, remains on mechanical ventilation, still requiring a significant dose of propofol and fentanyl. I have attempted to cut down the fentanyl to 25 mg per hour, and I have cut down the propofol gradually until discontinued. Her ventilator settings were noted to be assist- control rate of 16 FiO2 of 35% tidal volume of 350 and PEEP of 5. Her usual dose of propofol has been about 55 g and the dose of fentanyl was 100 g per hour. After cutting down on both and stopping her up a fall, I was able to give the patient a decent trial of pressure support of 10 and CPAP. Patient looked great and better than expected her chest x-ray was looking better today, her follow-up ABG post half hour at least on pressure support and CPAP looked great, pO2 was 79 pCO2 was 37 pH was 7.47, hence I proceeded to extubating the patient. I felt this is hour window otherwise the patient may require tracheostomy as noted previously. The rest of the labs and the chest x-ray were all reviewed. Electrolytes were normal CBC was relatively normal except for hemoglobin of 8.7. Patient was reevaluated today on 10/31/2018, patient is off mechanical ventilation , she was weaned and extubated successfully yesterday. Patient continues to have significant amount of pain medications on board, continues to be tachycardic, sinus tachycardia rate is in the 130 and 140 range. Continues to have chest tubes on both sides, one the left side and one on the left side. I have adjusted all her medications today, switched most them to oral medication, and change Solu-Medrol to prednisone, added Xanax to control her anxiety, discontinued fentanyl yesterday, and she is presently on IV medication for pain control. Her chest x-ray is showing some improvement, however the patient continues to have leaks in both tubes on both sides. She is on nasal cannula, saturating quite well, seems to be generally weak, and quite tachycardic, extremely anxious and agitated becomes very emotional when discussing her clinical condition. All labs were reviewed WBC count is 13.1 hemoglobin is 9.4 electrolytes and renal profile are normal. Patient was reevaluated today on 11/01/2018, remains in the intensive care unit, on nasal cannula, feeling much better today, breathing easier, seems to have less pain, less shortness of breath, but she continues to have significant air leak specially in one of the tubes on the left side, and minimal air leak on the right sided chest tube. Her tachycardia seems to be much better controlled , her heart rate is in the 90s, her O2 saturation is 96% on 3 L nasal cannula, and her blood pressure is 121/81 with a mean of 94. Labs and chest x-ray were reviewed, patient seems to be less anxious at this point, and all her meds including bronchodilators, steroids, antibiotics, were all addressed accordingly. Considering the significant air leak, and considering his severe COPD/emphysema with significant bullous disease, I have a feeling that the patient is going to have significant difficulty healing from her pneumothorax, and she may eventually require surgical intervention. That is yet to be decided in the next few days. Reevaluated today on 11/02/2018, patient remains in the intensive care unit, continues to have bilateral chest tubes, however the right-sided chest tube showed no leak today, and I have placed the tube on water seal, off wall suction. One of the left-sided chest tubes continues to have a significant amount of leak, hence I consulted thoracic surgery. Patient may eventually require surgical intervention. Overall the patient is doing better than expected, she has been tolerating the extubation well over the last few days. Chest x-ray was reviewed, labs were reviewed, medications were reviewed and the addressed. Discussed her condition also with a thoracic surgeon at bedside. Reevaluated today on 11/03/2018, remains in the intensive care unit, continues to have left-sided chest tube leak, right sided chest tube is off suction, chest x- ray showed no evidence of pneumothorax, CT of the chest showed significant bullous emphysema on both sides. Patient was seen by thoracic surgery on consultation, no plans for intervention at this point, the recommendation was to continue chest tubes on suction. Patient is comfortable, she is not in any form of distress. All her meds and labs were reviewed. Chest x-ray and CT of the chest was reviewed. Objective - Vital Signs Vital signs: Vital Signs Temp 98.2 F 11/03/18 08:00 Pulse 124 H 11/03/18 11:19 Resp 27 H 11/03/18 10:00 BP 108/76 11/03/18 10:00 Pulse Ox 94 L 11/03/18 10:00 Intake & Output 11/02/18 11/03/18 11/03/18 18:59 06:59 18:59 Intake Total 200 480 150 Output Total 1565 1063 380 Balance -1365 -583 -230 Weight 55.7 kg Intake: IV 200 Magnesium Sulfate-D5w Pmx 200 1 gm In Dextrose/Water 1 100ml.bag @ 100 mls/hr IVPB Q1H [facility] Rx#: [id number] Oral 480 150 Output: Chest Tube Drainage 173 Chest Tube Left Lateral 80 Chest Chest Tube Left Mid- 93 Axillary Chest Urine 965 690 180 Stool 600 200 200 Other: Voiding Method Indwelling Catheter Indwelling Catheter Indwelling Catheter - Exam Physical Exam: Revealed a 58-year-old female in no distress. Head: Atraumatic normocephalic. HEENT:: [No neck masses.] [No thyromegaly.] [No JVD.] Left subclavian central line is noted. Chest: [Diminished breath sound bilaterally, no crackles or rhonchi or wheezes. One right-sided chest tube was noted, 2 left-sided chest tubes were also noted. One of the left-sided chest tube continues to have significant air leak..] Cardiac Exam: [Normal S1 and S2, no S3 gallop, no murmur.] Abdomen: [Soft, nontender, no megaly, no rebound, no guarding, normal bowel sounds.] Extremities: [No clubbing, no edema, no cyanosis.] Neurological Exam: [No focal neurologic deficit. Extremities no clubbing edema or cyanosis. Lymphatics: No lymphadenopathy.] - Labs CBC & Chem 7: 11/03/18 05:15 11/03/18 05:15 Labs: Abnormal Lab Results - Last 24 Hours (Table) 11/02/18 11/02/18 11/03/18 Range/Units 17:06 20:45 05:15 WBC 13.0 H (3.8-10.6) k/uL RBC 3.03 L (3.80-5.40) m/uL Hgb 8.8 L (11.4-16.0) gm/dL Hct 27.6 L (34.0-46.0) % RDW 17.3 H (11.5-15.5) % Sodium (137-145) mmol/L Chloride (98-107) mmol/L Carbon Dioxide (22-30) mmol/L Creatinine (0.52-1.04) mg/dL Glucose (74-99) mg/dL POC Glucose (mg/dL) 120 H 164 H (75-99) mg/dL 11/03/18 11/03/18 11/03/18 Range/Units 05:15 07:27 11:47 WBC (3.8-10.6) k/uL RBC (3.80-5.40) m/uL Hgb (11.4-16.0) gm/dL Hct (34.0-46.0) % RDW (11.5-15.5) % Sodium 135 L (137-145) mmol/L Chloride 96 L (98-107) mmol/L Carbon Dioxide 40 H (22-30) mmol/L Creatinine 0.51 L (0.52-1.04) mg/dL Glucose 100 H (74-99) mg/dL POC Glucose (mg/dL) 105 H 165 H (75-99) mg/dL Assessment and Plan Assessment: #1 Acute hypoxic respiratory failure secondary to acute exacerbation of severe oxygen dependent chronic obstructive pulmonary disease, complicated by bilateral pneumothorax. Status post 3 chest tube placements to on the left and one on the right. #2 Brief cardiac arrest secondary to above responded to epinephrine. #3 Severe advanced chronic obstructive pulmonary disease and bullous emphysema with underlying FEV1 value 36% of predicted. Both oxygen and steroid dependent. #4 History of prolonged respiratory failure requiring intubation mechanical ventilation with subsequent tracheostomy and PEG tube placements and [facility]. Subsequently decannulated. #5 Previous history of right-sided pneumothorax 2. #6 Chronic left upper lobe inflammatory opacity. #7 Hyperlipidemia. #8 Hypothyroidism. #9 Chronic normocystic anemia. #10 Fibromyalgia. #11 History of anxiety/depression with previous discontinuation of her prescribed medications. #12 successful extubation on 10/30/2018, patient seems to have tolerated the extubation well, however she still has a long way to go. Considering her severe emphysema and her chest tubes, and the ongoing leak in the left sided chest tube, patient will require to remain in the ICU. She was seen by thoracic surgery on consultation, at this point no specific recommendation except continue chest tubes on suction. Comes next week, may have to consider other options. Plan: Continue present supportive care measures, continue to monitor in the ICU. Addressed the patient concerns, discussed her condition again with her, with thoracic surgery and with the admitting physician, we'll continue to monitor in the ICU, patient is not ready to be transferred out of the ICU at any point soon. May have to seriously consider referring the patient to [facility] sometime in the next week if she continues to have ongoing chest tube leak Time with Patient: Less than 30
[2018-11-03 17:04] LABS: Glucose,Whole Blood 190 mg/dL (75-99)
[2018-11-03] MEDS: LATANOPROST 0.005% OPHTH DROPS 2.5 ML BTL BOTH EYES SCH (20:31)
[2018-11-03 20:32] LABS: Glucose,Whole Blood 134 mg/dL (75-99)
[2018-11-03] MEDS: MELATONIN 5 MG TABLET PO SCH (20:38)
[2018-11-03] MEDS: ALPRAZolam 0.25 MG TAB PO PRN (22:00)
[2018-11-04] MEDS: HEPARIN SODIUM,PORCINE 5,000 UNIT/ML 1 ML VIAL SQ SCH ×3 (00:55→16:37)
[2018-11-04] MEDS: IPRATROPIUM-ALBUTEROL 3 ML NEB INHALATION SCH ×7 (01:16→23:43)
[2018-11-04] MEDS: HYDROmorphone 0.5 MG/0.5 ML SYRINGE IVP PRN ×6 (02:46→23:26)
[2018-11-04 05:14] LABS: Anisocytosis Slight; HCT 23.4 % (34.0-46.0); HGB 7.5 gm/dL (11.4-16.0); MCH 29.4 pg (25.0-35.0); MCHC 32.1 g/dL (31.0-37.0); MCV 91.5 fL (80.0-100.0); Mean Platelet Volume 7.2; Platelet Count 245 k/uL (150-450); RBC 2.56 m/uL (3.80-5.40); RDW 17.3 % (11.5-15.5); WBC 11.7 k/uL (3.8-10.6)
[2018-11-04] MEDS: SODIUM CHLORIDE 0.9% 1,000 ML IV SCH ×2 (05:19→16:38)
[2018-11-04 05:24] LABS: Anion Gap 1 mmol/L; Blood Urea Nitrogen 12 mg/dL (7-17); Calcium 8.3 mg/dL (8.4-10.2); Carbon Dioxide 36 mmol/L (22-30); Chloride 97 mmol/L (98-107); Glucose 121 mg/dL (74-99); Magnesium 1.4 mg/dL (1.6-2.3); Phosphorus 3.6 mg/dL (2.5-4.5); Potassium 4.2 mmol/L (3.5-5.1); Sodium 134 mmol/L (137-145)
[2018-11-04 07:10] LABS: Glucose,Whole Blood 102 mg/dL (75-99)
--- NOTE | 2018-11-04 07:11 | XR ---
EXAMINATION TYPE: XR chest 1V portable DATE OF EXAM: 11/04/2018 HISTORY: Chest tubes and follow up. REFERENCE: Previous study dated 11/03/2018. FINDINGS: There is a left subclavian catheter in place. Its tip is at the cavoatrial junction. There is bilateral pleural drains in place. There is worsening right basilar airspace disease. There are bilateral effusions. These have also wor sened. The heart is not enlarged. There are multiple right-sided rib fractures. No definite pneumotho rax is identified. IMPRESSION: 1. WORSENING RIGHT BASILAR AIRSPACE DISEASE. 2. WORSENING, BILATERAL EFFUSIONS.
[2018-11-04] MEDS: BUDESONIDE 1 MG/2 ML NEBU INHALATION SCH ×2 (07:16→20:50)
[2018-11-04] MEDS: FORMOTEROL FUMARATE 20 MCG/2 ML NEBU INHALATION SCH ×2 (07:16→20:50)
[2018-11-04] MEDS: INSULIN ASPART 100 UNIT/ML 1 ML 10 ML VIAL SQ SCH ×4 (08:32→21:35)
[2018-11-04] MEDS: GABAPENTIN 300 MG CAP PO SCH ×3 (08:32→21:41)
[2018-11-04] MEDS: predniSONE 10 MG TAB PO SCH (08:33)
[2018-11-04] MEDS: PANTOPRAZOLE 40 MG TABLET PO SCH (08:33)
[2018-11-04] MEDS: COLCHICINE 0.6 MG EACH PO SCH (08:35)
[2018-11-04] MEDS: NYSTATIN 100,000 UNIT/ML SUSP 500,000 UNIT/5 ML CUP PO SCH ×4 (08:35→21:41)
[2018-11-04] MEDS: busPIRone HCl 10 MG TAB PO SCH ×3 (08:35→21:40)
[2018-11-04] MEDS: METOPROLOL TARTRATE 50 MG TAB PO SCH ×2 (08:35→21:40)
[2018-11-04] MEDS: DICYCLOMINE 10 MG CAP PO SCH ×3 (08:35→21:41)
[2018-11-04] MEDS: DULoxetine HCL 30 MG CAPSULE.DR PO SCH ×2 (08:36→21:41)
[2018-11-04] MEDS: MAGNESIUM SULFATE-D5W PMX 1 GM in DEXTROSE/WATER 1 100ML.BAG IVPB SCH ×3 (08:40→11:54)
--- NOTE | 2018-11-04 09:09 | P.PN ---
Subjective Progress Note Date: 11/04/18 This is a 58-year-old female who follows with Dr. James as her primary care physician. She has a history of hyperlipidemia, hypothyroidism, anemia, fibromyalgia, anxiety/depression, COPD. She presented to the emergency department with dyspnea. Patient was at home when she experienced rest for distress and called EMS. In route to the hospital she was put on a BiPAP due to minimal responsiveness. Upon arrival to the emergency department her initial vital signs were tachycardic with no measurable pulse oximetry and she was hypotensive. Patient was positive for JVD, 1 view chest was obtained for a positive pneumothorax 50% on the left and a possible pneumothorax on the right. A chest tube was placed on the left and patient had failure to respond to treatment. At which CPR was initiated by ACLS protocol for approximately 1 minute. A central line was placed in the left subclavian vein during the code. Patient was intubated. An repeat chest x-ray showed a pneumothorax on the right and a right-sided 24-Brazilian chest tube was placed. Patient's vital signs improved and she was transported to ICU for continuation of care. Patient presents intubated at this time. She is awake and able to answer questions appropriately. Her current vent setting assist control of 16, tidal volume 350 , FiO2 at 35% and a PEEP of 5. Her morning blood gases reveal a pO2 of 85 pCO2 of 41 pH 7.38. H&H is currently sedated with 30 mics per KG per minute of debridement and, fentanyl drip at 1 MCG per KG per hour. Patient is able to follow commands she is able to move all 4 extremities. Her white count is 7.6, hemoglobin of 10, creatinine 0.6. 10/28: Patient continues to be sedated and intubated. Chest x-ray this morning showed significant progression of left-sided pneumothorax estimated at 50%. Left lower lobe pleural catheter appears unchanged in position. It increased subcutaneous air identified. Subsequently the patient underwent a another chest tube insertion on the left side to help relieve the pneumothorax. Repeat checks x-ray showed a persistent left apical pneumothorax estimated at 15-20%. A new left-sided chest tube place. Patient is receiving tube feedings through NG tube at this time. She continues to be on propofol at 65 mics per KG per minute and fentanyl drip at 1 nury per KG per hour. Patient also is getting Dilaudid and [place] as needed for pain. Her brought in opium to help with abdominal discomfort. Vent settings are unchanged the vent setting assist control 16, tidal volume of 350, FiO2 at 35%, and a PEEP of 5. Patient's urinary output is 50-70 mL per hour. Discussed findings with at the bedside in the plan to continue with sedation and intubation to rest the lungs and we will reassess tomorrow for possible weaning. states that this happened a few months ago where she was on prolonged intubation due to her lungs not recovering. 10/29: Patient continues to be sedated and intubated. Chest x-ray does show improvement to bilateral pneumothorax and [address]. Patient has been tachycardic overnight with a rate in the 130s. Patient grimaces in pain and withdraws. Patient continue to see tube feedings through NG tube. She continues to be on propofol and fentanyl for sedation. Patient was on Nimbex overnight however that has been DC'd. Vent settings are unchanged with the vent assist control 16, tidal volume 350, FiO2 at 35%, and a PEEP of 5. Patient 's urinary output continues to be 50-70 ML's per hour. Discussed case with pulmonology and consult for trach and PEG tube is in place. Pulmonology does not feel the patient will be successful in weaning. 10/30/18: Patient is sitting up in bed extubated. Patient was successfully weaned this morning. She is alert and orientated 3 and able to answer questions appropriately. Patient is complaining of pain to the chest due to the 3 chest tubes that are in place. Patient does have a history of Crohn's and discussed the medication she normally takes for them including Humira which we will hold at this time. Patient continues to be on sentinel drip for pain she also is receiving Dilaudid as needed for breakthrough pain. CBC 11.3, hemoglobin 8.7, potassium 4.7 BUN 28 creatinine 0.5. 10/31: Patient remains in the intensive care unit. She was successfully extubated yesterday and is currently pulse ox is 96% on 4 L nasal cannula. White count is 13.1, hemoglobin 9.4, CO2 is 32, electrolytes within normal limits, creatinine 0.54. Sputum cultures positive for Tish albicans. Urine culture finalized with no growth and blood culture showing no growth after 96 hours. Repeat chest x-ray shows 2 chest tubes on the left and one on the right. No appreciable pneumothorax. Relative upper lung lucency suggesting underlying emphysema. Continue small pleural effusions with adjacent atelectasis or consolidations. Cardiothoracic surgery signing off the case is no plan is for trach and PEG placement. Patient remains with 2 left-sided chest tubes in 1 right-sided chest tube. Pulmonary is planning to maintain chest tubes. Solu-Medrol transitioned to prednisone. cork tipper is a sinus tachycardia. Ribera catheter is in place draining adequate amount of urine. Ileostomy with dark brown stool. Patient has been seen by GI with recommendations to continue Humira every 2 weeks and can be restarted after discharge the patient had verbalized that she did not want to continue on Humira. Patient is to follow-up with Dr. Verma in the office as scheduled. Patient currently has [facility] home [facility] in place. PT to start working with patient today. [facility] Home medications will be reviewed. 11/01: Patient remains in the intensive care unit and breathing continues to improve slowly. Pulse ox is 96% on 3 L nasal cannula, heart rates running in the 90s. White count is 13.1, hemoglobin 9.6, creatinine 0.54. Electrolytes within normal limits. Patient is requesting using her home nicotine gum which will be ordered. Sputum culture showing Tish. 11/02: Patient remains in the intensive care unit. Repeat chest x-ray shows bilateral chest tubes remain unchanged. No evidence of sizable pneumothorax within either lung at this time. CAT scan of the chest reveals bilateral pneumothorax disease. Chest tubes are present. Consider reposition a right- sided chest tube. Bilateral apical masses left side is increasing in size. She does have bilateral chest tubes and there is plan for possibly removing the right side in the next couple days. There is a considerable leak on one of the left sided chest tubes in cardiothoracic surgery has been reconsulted. Patient is working with physical therapy and occupational therapy at the bedside. 11/03: Patient remains in the intensive care unit. She has 2 left-sided chest tubes in 1 right-sided chest tube in place. She states she is having cough with sputum production. She is using her incentive spirometry. Overall, she states her breathing is improving slowly. She does complain of chest pain more so on the left side. She does state that yesterday she started having increased stool from her ostomy and feels that she is having a flareup of her Crohn's. She does have opium available. We will start her back on IV fluids to avoid dehydration, monitor electrolytes. Heart rate remains elevated for which Lopressor will be increased to 50 mg twice daily which is her home dose. Verapamil is on hold due to hypotension. 11/04: Patient states that she had a lot of diarrhea yesterday but this seems to be decreasing this morning. She is feeling better from yesterday. She has had good urine output. She states this morning there was bleeding from one of her chest tubes in the bed which has been cleaned up in everything has been changed. Heart rate is remaining elevated. Lopressor is currently at 50 g twice daily. Cardiothoracic surgery does not plan for any surgical intervention. Patient encouraged to use incentive spirometry and increase activity area Review Of Systems: Constitutional: Pain to the chest due to chest tube No fever, no chills, no night sweats. No weight change. Reports weakness, fatigue or lethargy. EENT: No headache. No blurred vision or double vision, no loss of vision. No loss of Hearing, no ringing in the ears, no dizziness. No nasal drainage or congestion. No epistaxis. No sore throat. Lungs: No shortness of breath, cough, no sputum production. No wheezing. Cardiovascular: No chest pain, no lower extremity edema. No palpitations. No paroxysmal nocturnal dyspnea. No orthopnea. No lightheadedness or dizziness. No syncopal episodes. Abdominal: no abdominal discomfort. Reports nausea, denies vomiting. Reports diarrhea. No constipation. No bloody or tarry stools. Reports loss of appetite. Genitourinary: No dysuria, increased frequency, urgency. No urinary retention. Musculoskeletal: No myalgias. No muscle weakness, no gait dysfunction, no frequent falls. No back pain. No neck pain. Integumentary: No wounds, no lesions. No rash or pruritus. No unusual bruising. No change in hair or nails. Neurologic: No aphasia. No facial droop. No change in mentation. No head injury. No headache. No paralysis. No paresthesia. Psychiatric: No depression. No anxiety. No mood swings. Endocrine: No abnormal blood sugars. No weight change. Objective - Vital Signs Vital signs: Vital Signs Temp 97.6 F 11/04/18 04:00 Pulse 100 11/04/18 07:42 Resp 18 11/04/18 07:00 BP 91/64 11/04/18 07:00 Pulse Ox 98 11/04/18 06:30 Intake & Output 11/03/18 11/04/18 11/04/18 18:59 06:59 18:59 Intake Total 950 1460 Output Total 1230 1518 Balance -280 -58 Weight 55.7 kg Intake: IV 800 1100 Sodium Chloride 0.9% 1, 800 1100 000 ml @ 100 mls/hr IV . Q10H [facility] Rx#:[id number] Oral 150 360 Output: Chest Tube Drainage 35 58 Chest Tube Left Lateral 10 18 Chest Chest Tube Left Mid- 10 40 Axillary Chest Chest Tube Right Mid- 15 Axillary Chest Urine 695 960 Stool 500 500 Other: Voiding Method Indwelling Catheter Indwelling Catheter - Exam General appearance: Present: average body habitus, cooperative, no acute distress. Patient is standing at the bedside with physical therapy. - EENT Eyes: Present: anicteric sclerae, EOMI, PERRLA ENT: Present: hearing grossly normal, NA/AT - Neck Neck: Present: normal ROM. Absent: lymphadenopathy - Respiratory Respiratory: bilateral: diminished, wheezing, no accessory muscle usage negative : dullness, rales, rhonchi, prolonged expiration, prolonged inspiration, other 2 left-sided chest tubes and 1 right-sided chest tube - Cardiovascular Rhythm: regular Heart sounds: normal: S1, S2 Abnormal Heart Sounds: Absent: systolic murmur, diastolic murmur, rub, S3 Gallop , S4 Gallop, click, other - Gastrointestinal General gastrointestinal: Present: normal bowel sounds, soft. Mild generalized tenderness, ileostomy in place Ribera with clear alexis urine return. - Integumentary Integumentary: Present: pale - Neurologic Neurologic: Present: CNII-XII intact - Musculoskeletal Musculoskeletal: Present: generalized weakness, strength equal bilaterally - Psychiatric Psychiatric: Present: A&O x's 3, appropriate affect, intact judgment & insight - Labs CBC & Chem 7: 11/04/18 04:36 11/04/18 04:36 Labs: Abnormal Lab Results - Last 24 Hours (Table) 11/03/18 11/03/18 11/03/18 Range/Units 11:47 16:53 20:21 WBC (3.8-10.6) k/uL RBC (3.80-5.40) m/uL Hgb (11.4-16.0) gm/dL Hct (34.0-46.0) % RDW (11.5-15.5) % Sodium (137-145) mmol/L Chloride (98-107) mmol/L Carbon Dioxide (22-30) mmol/L Creatinine (0.52-1.04) mg/dL Glucose (74-99) mg/dL POC Glucose (mg/dL) 165 H 190 H 134 H (75-99) mg/dL Calcium (8.4-10.2) mg/dL Magnesium (1.6-2.3) mg/dL 11/04/18 11/04/18 11/04/18 Range/Units 04:36 04:36 06:58 WBC 11.7 H (3.8-10.6) k/uL RBC 2.56 L (3.80-5.40) m/uL Hgb 7.5 L (11.4-16.0) gm/dL Hct 23.4 L (34.0-46.0) % RDW 17.3 H (11.5-15.5) % Sodium 134 L (137-145) mmol/L Chloride 97 L (98-107) mmol/L Carbon Dioxide 36 H (22-30) mmol/L Creatinine 0.51 L (0.52-1.04) mg/dL Glucose 121 H (74-99) mg/dL POC Glucose (mg/dL) 102 H (75-99) mg/dL Calcium 8.3 L (8.4-10.2) mg/dL Magnesium 1.4 L (1.6-2.3) mg/dL Assessment and Plan Plan: #1 Acute hypoxic respiratory failure secondary to acute exacerbation of severe oxygen dependent chronic obstructive pulmonary disease, complicated by bilateral pneumothorax. Status post bilateral chest tube placements. Patient has been successfully extubated. Continue Dilaudid 1 mg every 3 hours as needed for break through pain and [place] as needed. Continue DuoNeb treatments every 4 hours scheduled and as needed, Pulmicort 1 mg twice daily, Perforomist twice daily, prednisone. Pulmonary consult appreciated Cardiothoracic surgery has been reconsulted there is no plan for surgical intervention. #2 Brief cardiac arrest secondary to above responded to epinephrine. #3 Severe advanced chronic obstructive pulmonary disease and bullous emphysema with underlying FEV1 value 36% of predicted. Both oxygen and steroid dependent. Continue Pulmicort, continue prednisone. #4 History of prolonged respiratory failure requiring intubation mechanical ventilation with subsequent tracheostomy and PEG tube placements [facility]. #5 bilateral pneumothorax related to severe advanced stages of COPD and bullous emphysema Chest tubes in place. Repeat chest x-ray #6 Previous history of right-sided pneumothorax 2. #7 Chronic left upper lobe inflammatory opacity. #8 Hyperlipidemia. #9 Hypertension. Continue to monitor blood pressure #10 Chronic normocystic anemia, anemia of chronic disease. Monitor CBC #11 Fibromyalgia. Continue Dilaudid or [place] as needed #12 Generalized anxiety disorder and recurrent depression. #13 History of Crohn's with possible exacerbation. Consult gastroenterology. Continue opium. IV fluids 0.9 normal saline at 100 mL per hour. #14 GI prophylactics Protonix 40 mg IV daily #15 DVT prophylaxis heparin 5000 units subcu every 8 hours Discharge plan: Most likely/subacute rehab Impression and plan of care have been directed as dictated by the signing physician. Gaby Rothman nurse practitioner acting as scribe for signing physician.
--- NOTE | 2018-11-04 10:07 | P.PN ---
Subjective Progress Note Date: 11/04/18 Principal diagnosis: Severe end-stage COPD with home oxygen use and previous FEV1 completed which showed her predicted value of 36%, history of previous tracheostomy and PEG tube placement in June 2018, home oxygen use, fibromyalgia, GERD, history of GI bleed, hypertension, hyperlipidemia, history of pneumonia, osteoarthritis , history of multiple pneumothorax with Thoravent placement 2, history of Crohn 's disease with multiple bowel surgeries and previous tobacco dependence quit smoking 2 years ago. The patient is currently sitting up to the bedside chair. She is in no acute distress. She denies any complaints of pain or shortness of breath at this time. She is currently on 3 L nasal cannula with oxygen saturations 96% and achieving 500 to 750 mL on her incentive spirometry with encouragement. She remains with 2 left pleural chest tubes and one right pleural chest tube. Her left pleural chest tubes are showing an intermittent air leak, remains to continuous low wall suction. The right pleural chest tube is to water seal and no air leak is present. Objective - Vital Signs Vital signs: Vital Signs Temp 97.6 F 11/04/18 04:00 Pulse 100 11/04/18 07:42 Resp 18 11/04/18 07:00 BP 91/64 11/04/18 07:00 Pulse Ox 98 11/04/18 06:30 Intake & Output 11/03/18 11/04/18 11/04/18 18:59 06:59 18:59 Intake Total 950 1460 Output Total 1230 1518 Balance -280 -58 Weight 55.7 kg Intake: IV 800 1100 Sodium Chloride 0.9% 1, 800 1100 000 ml @ 100 mls/hr IV . Q10H [facility] Rx#:[id number] Oral 150 360 Output: Chest Tube Drainage 35 58 Chest Tube Left Lateral 10 18 Chest Chest Tube Left Mid- 10 40 Axillary Chest Chest Tube Right Mid- 15 Axillary Chest Urine 695 960 Stool 500 500 Other: Voiding Method Indwelling Catheter Indwelling Catheter - Constitutional General appearance: Present: cooperative, no acute distress - Respiratory Details: Lung sounds essentially diminished throughout. Respirations are symmetrical and nonlabored. Oxygen saturation are 96% on 3 L nasal cannula. She is achieving 500-750 mL on her incentive spirometry. Left pleural chest tubes remain to low continuous wall suction -20 cm H2O. Intermittent air leak is present. Right pleural chest tube remains in place and is to waterseal. No air leak present. Chest tubes are draining thin serosanguineous drainage. - Cardiovascular Details: Regular rhythm with a tachycardic rate. S1 and S2 present, negative for S3, gallop or murmur. Bedside telemetry showing sinus tachycardia heart rate 125. No edema present. Left subclavian triple-lumen central line catheter in place and functioning. Knee-high EMELIA hose and sequential compression devices in place to bilateral lower extremities. - Gastrointestinal Gastrointestinal Comment(s): Abdomen is soft, nontender and nondistended. Active bowel sounds all 4 abdominal quadrants. Tolerating oral intake. Right lower quadrant ileostomy in place with loose brown stool. - Genitourinary Genitourinary Comment(s): Ribera catheter for accurate I&O. Draining clear yellow urine, with some sedimentation present. 710 mL output in the last 8 hours. - Integumentary Integumentary Comment(s): Skin is warm and dry. No clubbing or cyanosis present. Small excoriated areas to her mid back, excoriated areas are dry and no drainage is present. - Neurologic Neurologic: Present: CNII-XII intact - Musculoskeletal Musculoskeletal: Present: gait normal, generalized weakness, strength equal bilaterally - Psychiatric Psychiatric: Present: A&O x's 3, appropriate affect, intact judgment & insight - Allied health notes Allied health notes reviewed: nursing - Labs CBC & Chem 7: 11/04/18 04:36 11/04/18 04:36 Labs: Abnormal Lab Results - Last 24 Hours (Table) 11/03/18 11/03/18 11/03/18 Range/Units 11:47 16:53 20:21 WBC (3.8-10.6) k/uL RBC (3.80-5.40) m/uL Hgb (11.4-16.0) gm/dL Hct (34.0-46.0) % RDW (11.5-15.5) % Sodium (137-145) mmol/L Chloride (98-107) mmol/L Carbon Dioxide (22-30) mmol/L Creatinine (0.52-1.04) mg/dL Glucose (74-99) mg/dL POC Glucose (mg/dL) 165 H 190 H 134 H (75-99) mg/dL Calcium (8.4-10.2) mg/dL Magnesium (1.6-2.3) mg/dL 11/04/18 11/04/18 11/04/18 Range/Units 04:36 04:36 06:58 WBC 11.7 H (3.8-10.6) k/uL RBC 2.56 L (3.80-5.40) m/uL Hgb 7.5 L (11.4-16.0) gm/dL Hct 23.4 L (34.0-46.0) % RDW 17.3 H (11.5-15.5) % Sodium 134 L (137-145) mmol/L Chloride 97 L (98-107) mmol/L Carbon Dioxide 36 H (22-30) mmol/L Creatinine 0.51 L (0.52-1.04) mg/dL Glucose 121 H (74-99) mg/dL POC Glucose (mg/dL) 102 H (75-99) mg/dL Calcium 8.3 L (8.4-10.2) mg/dL Magnesium 1.4 L (1.6-2.3) mg/dL - Imaging and Cardiology Chest x-ray: report reviewed, image reviewed Assessment and Plan (1) Acute exacerbation of chronic obstructive airways disease Current Visit: Yes Status: Acute Code(s): J44.1 - CHRONIC OBSTRUCTIVE PULMONARY DISEASE W (ACUTE) EXACERBATION SNOMED Code(s): 382162261 (2) Bilateral pneumothorax Current Visit: Yes Status: Acute Code(s): J93.9 - PNEUMOTHORAX, UNSPECIFIED SNOMED Code(s): 52329065 (3) Cardiopulmonary arrest with successful resuscitation Current Visit: Yes Status: Acute Code(s): I46.9 - CARDIAC ARREST, CAUSE UNSPECIFIED SNOMED Code(s): 975171033 (4) Failure to wean from mechanical ventilation Current Visit: Yes Status: Acute Code(s): Z99.11 - DEPENDENCE ON RESPIRATOR [VENTILATOR] STATUS SNOMED Code(s): 932308680 Plan: 1. No plan for surgical intervention at this time. We will continue to monitor her chest tubes for air leak which seems to be improving. 2. Continued medical management per primary care service, pulmonology. 3. GI/DVT prophylaxis. 4. Continue to encourage use of her incentive spirometry every hour while awake. 5. Increase activity as tolerated. Out of bed for all meals. 6. More recommendations to follow based on patient's clinical course. Time with Patient: Greater than 30
[2018-11-04 11:58] LABS: Glucose,Whole Blood 139 mg/dL (75-99)
--- NOTE | 2018-11-04 14:23 | P.PN ---
Subjective Progress Note Date: 11/04/18 Principal diagnosis: Acute hypoxic respiratory failure secondary to COPD and bilateral pneumothoraces. This is a 58-year-old female patient who follows with Dr. James as her primary care physician. She has a history of hyperlipidemia, hypothyroidism, anemia, fibromyalgia, anxiety/depression. Chest has a history of severe oxygen- dependent bullous emphysema/COPD with FEV1 value of 36% of predicted and a chronic left upper lobe inflammatory opacity that was nonmalignant. She has a history of prolonged respiratory failure requiring mechanical ventilation and was subsequently tr[facility] and [facility]. She had since been decannulated. She's had multiple admissions for COPD exacerbations most recently discharged from here on 10/16/2018. She was brought in by EMS to the emergency room yesterday with severe respiratory distress requiring initially BiPAP support. She was found to have bilateral pneumothorax and chest tubes were placed as well as a left thoravent. She had a brief cardiac arrest requiring epinephrine. She was subsequently intubated and placed on mechanical ventilator and transferred here to the intensive care unit. She is seen today in consultation with current vent settings assist- control of 16, tidal volume 350, FiO2 of 35% and a PEEP of 5. Morning blood gases reveal a P O2 of 85, pCO2 41, pH 7.38. Her measured airway resistance is currently 8.8. She is sedated on to prevent at 30 mcg/kg/m., Fentanyl drip at 1 mcg/kg per hour, 1.9 normal saline at 75 ML's per hour. She does follow simple commands. She is moving all fours. Cultures are pending. White count 7.6. Hemoglobin 10.0. Creatinine 0.69. She's been initiated and DuoNeb inhalations. Patient was reevaluated today on 10/29/2018, remains in the ICU on mechanical ventilation. Patient has been on same ventilator settings, tidal volume of 350 assist-control rate of 16 FiO2 of 35% and PEEP of 5. Patient remains on fentanyl drip, she is also on propofol drip, and both are basically maximized. Last night Dr. Meza placed the patient on Nimbex drip. However I have discontinued the Nimbex drip today, and I will try to control her agitation with fentanyl and propofol only. Patient continues to have left-sided chest tubes, and 1 right sided chest tube, all of them are showing a bit of a leak. Her ABG showed a pO2 of 120 pCO2 of 40 0 pH of 7.44. Basic metabolic profile is normal, WBC count is 10.9 hemoglobin is 9.2. Chest x-ray did show improvement in aeration of the right lung base with persistent left basilar opacity may represent mostly atelectasis or possibly pneumonia. No sizable pneumothorax is noted on both sides. Patient remains on multiple bronchodilators, and on Solu-Medrol. Today I discussed with the nurses and with the admitting physician that it would be best to consider tracheostomy and PEG tube placement since the patient is going to be almost extremely difficult to wean successfully. She had a similar episode in the past, and she did require [facility]. Patient was reevaluated today on 10/30/2018, remains on mechanical ventilation, still requiring a significant dose of propofol and fentanyl. I have attempted to cut down the fentanyl to 25 mg per hour, and I have cut down the propofol gradually until discontinued. Her ventilator settings were noted to be assist- control rate of 16 FiO2 of 35% tidal volume of 350 and PEEP of 5. Her usual dose of propofol has been about 55 g and the dose of fentanyl was 100 g per hour. After cutting down on both and stopping her up a fall, I was able to give the patient a decent trial of pressure support of 10 and CPAP. Patient looked great and better than expected her chest x-ray was looking better today, her follow-up ABG post half hour at least on pressure support and CPAP looked great, pO2 was 79 pCO2 was 37 pH was 7.47, hence I proceeded to extubating the patient. I felt this is hour window otherwise the patient may require tracheostomy as noted previously. The rest of the labs and the chest x-ray were all reviewed. Electrolytes were normal CBC was relatively normal except for hemoglobin of 8.7. Patient was reevaluated today on 10/31/2018, patient is off mechanical ventilation , she was weaned and extubated successfully yesterday. Patient continues to have significant amount of pain medications on board, continues to be tachycardic, sinus tachycardia rate is in the 130 and 140 range. Continues to have chest tubes on both sides, one the left side and one on the left side. I have adjusted all her medications today, switched most them to oral medication, and change Solu-Medrol to prednisone, added Xanax to control her anxiety, discontinued fentanyl yesterday, and she is presently on IV medication for pain control. Her chest x-ray is showing some improvement, however the patient continues to have leaks in both tubes on both sides. She is on nasal cannula, saturating quite well, seems to be generally weak, and quite tachycardic, extremely anxious and agitated becomes very emotional when discussing her clinical condition. All labs were reviewed WBC count is 13.1 hemoglobin is 9.4 electrolytes and renal profile are normal. Patient was reevaluated today on 11/01/2018, remains in the intensive care unit, on nasal cannula, feeling much better today, breathing easier, seems to have less pain, less shortness of breath, but she continues to have significant air leak specially in one of the tubes on the left side, and minimal air leak on the right sided chest tube. Her tachycardia seems to be much better controlled , her heart rate is in the 90s, her O2 saturation is 96% on 3 L nasal cannula, and her blood pressure is 121/81 with a mean of 94. Labs and chest x-ray were reviewed, patient seems to be less anxious at this point, and all her meds including bronchodilators, steroids, antibiotics, were all addressed accordingly. Considering the significant air leak, and considering his severe COPD/emphysema with significant bullous disease, I have a feeling that the patient is going to have significant difficulty healing from her pneumothorax, and she may eventually require surgical intervention. That is yet to be decided in the next few days. Reevaluated today on 11/02/2018, patient remains in the intensive care unit, continues to have bilateral chest tubes, however the right-sided chest tube showed no leak today, and I have placed the tube on water seal, off wall suction. One of the left-sided chest tubes continues to have a significant amount of leak, hence I consulted thoracic surgery. Patient may eventually require surgical intervention. Overall the patient is doing better than expected, she has been tolerating the extubation well over the last few days. Chest x-ray was reviewed, labs were reviewed, medications were reviewed and the addressed. Discussed her condition also with a thoracic surgeon at bedside. Reevaluated today on 11/03/2018, remains in the intensive care unit, continues to have left-sided chest tube leak, right sided chest tube is off suction, chest x- ray showed no evidence of pneumothorax, CT of the chest showed significant bullous emphysema on both sides. Patient was seen by thoracic surgery on consultation, no plans for intervention at this point, the recommendation was to continue chest tubes on suction. Patient is comfortable, she is not in any form of distress. All her meds and labs were reviewed. Chest x-ray and CT of the chest was reviewed. Reevaluated today on 11/04/2018, basically the patient is about the same, the leak from the left sided chest tube seems to be much less today. And it is intermittent. No leak from the right sided chest tube. Chest x-ray is showing mostly some atelectasis of the right base. She was seen by thoracic surgery again today, and entertaining the possibility of volume reduction surgery, and eventually down the line consider pulmonary transplant. No immediate plans for surgery, patient will be given the option eventually whether she would like to have the surgery done here or in a tertiary care center. This will be decided upon hopefully in the next couple of days. In the meantime the patient is doing relatively well, resting, in no distress. WBC count is 11.7 hemoglobin is 7.5. Electrolytes and renal profile are normal. Objective - Vital Signs Vital signs: Vital Signs Temp 98.2 F 11/04/18 08:00 Pulse 118 H 11/04/18 11:22 Resp 13 11/04/18 11:00 BP 106/73 11/04/18 11:00 Pulse Ox 97 11/04/18 11:00 Intake & Output 11/03/18 11/04/18 11/04/18 18:59 06:59 18:59 Intake Total 950 1460 500 Output Total 1230 1518 535 Balance -280 -58 -35 Weight 55.7 kg Intake: IV 800 1100 500 Magnesium Sulfate-D5w Pmx 300 1 gm In Dextrose/Water 1 100ml.bag @ 100 mls/hr IVPB Q1H [facility] Rx#: [id number] Sodium Chloride 0.9% 1, 800 1100 200 000 ml @ 100 mls/hr IV . Q10H [facility] Rx#:[id number] Oral 150 360 Output: Chest Tube Drainage 35 58 Chest Tube Left Lateral 10 18 Chest Chest Tube Left Mid- 10 40 Axillary Chest Chest Tube Right Mid- 15 Axillary Chest Urine 695 960 335 Stool 500 500 200 Other: Voiding Method Indwelling Catheter Indwelling Catheter Indwelling Catheter - Exam Physical Exam: Revealed a 58-year-old female in no distress. Head: Atraumatic normocephalic. HEENT:: [No neck masses.] [No thyromegaly.] [No JVD.] Left subclavian central line is noted. Chest: [Diminished breath sound bilaterally, no crackles or rhonchi or wheezes. Chest tubes on both sides are basically about the same. Cardiac Exam: [Normal S1 and S2, no S3 gallop, no murmur.] Abdomen: [Soft, nontender, no megaly, no rebound, no guarding, normal bowel sounds.] Extremities: [No clubbing, no edema, no cyanosis.] Neurological Exam: [No focal neurologic deficit. Extremities no clubbing edema or cyanosis. Lymphatics: No lymphadenopathy.] - Labs CBC & Chem 7: 11/04/18 04:36 11/04/18 04:36 Labs: Abnormal Lab Results - Last 24 Hours (Table) 11/03/18 11/03/18 11/04/18 Range/Units 16:53 20:21 04:36 WBC 11.7 H (3.8-10.6) k/uL RBC 2.56 L (3.80-5.40) m/uL Hgb 7.5 L (11.4-16.0) gm/dL Hct 23.4 L (34.0-46.0) % RDW 17.3 H (11.5-15.5) % Sodium (137-145) mmol/L Chloride (98-107) mmol/L Carbon Dioxide (22-30) mmol/L Creatinine (0.52-1.04) mg/dL Glucose (74-99) mg/dL POC Glucose (mg/dL) 190 H 134 H (75-99) mg/dL Calcium (8.4-10.2) mg/dL Magnesium (1.6-2.3) mg/dL 11/04/18 11/04/18 11/04/18 Range/Units 04:36 06:58 11:46 WBC (3.8-10.6) k/uL RBC (3.80-5.40) m/uL Hgb (11.4-16.0) gm/dL Hct (34.0-46.0) % RDW (11.5-15.5) % Sodium 134 L (137-145) mmol/L Chloride 97 L (98-107) mmol/L Carbon Dioxide 36 H (22-30) mmol/L Creatinine 0.51 L (0.52-1.04) mg/dL Glucose 121 H (74-99) mg/dL POC Glucose (mg/dL) 102 H 139 H (75-99) mg/dL Calcium 8.3 L (8.4-10.2) mg/dL Magnesium 1.4 L (1.6-2.3) mg/dL Assessment and Plan Assessment: #1 Acute hypoxic respiratory failure secondary to acute exacerbation of severe oxygen dependent chronic obstructive pulmonary disease, complicated by bilateral pneumothorax. Status post 3 chest tube placements to on the left and one on the right. #2 Brief cardiac arrest secondary to above responded to epinephrine. #3 Severe advanced chronic obstructive pulmonary disease and bullous emphysema with underlying FEV1 value 36% of predicted. Both oxygen and steroid dependent. #4 History of prolonged respiratory failure requiring intubation mechanical ventilation with subsequent tracheostomy and PEG tube placements and [facility]. Subsequently decannulated. #5 Previous history of right-sided pneumothorax 2. #6 Chronic left upper lobe inflammatory opacity. #7 Hyperlipidemia. #8 Hypothyroidism. #9 Chronic normocystic anemia. #10 Fibromyalgia. #11 History of anxiety/depression with previous discontinuation of her prescribed medications. #12 successful extubation on 10/30/2018, patient seems to have tolerated the extubation well, however she still has a long way to go. Considering her severe emphysema and her chest tubes, and the ongoing leak in the left sided chest tube, patient will require to remain in the ICU. Patient is being considered for possible volume reduction by thoracic surgery on the case. Plan: Continue present supportive care measures, continue to monitor in the ICU. Addressed the patient concerns, discussed her condition again with her, with thoracic surgery we'll continue to monitor in the ICU, patient is not ready to be transferred out of the ICU at any point soon. Consider removing the right-sided chest tube, one of the left sided chest tubes could be considered to be removed, however the one that continues to leak may have to stay for a bit longer. I'm still hoping that the patient could eventually undergo volume reduction surgery. This is to be decided upon hopefully in the next couple of days. Patient will remain in the ICU in the meantime Time with Patient: Less than 30
[2018-11-04 17:29] LABS: Glucose,Whole Blood 210 mg/dL (75-99)
[2018-11-04 21:29] LABS: Glucose,Whole Blood 102 mg/dL (75-99)
[2018-11-04] MEDS: LATANOPROST 0.005% OPHTH DROPS 2.5 ML BTL BOTH EYES SCH (21:39)
[2018-11-04] MEDS: MELATONIN 5 MG TABLET PO SCH (21:39)
[2018-11-04] MEDS: ALPRAZolam 0.25 MG TAB PO PRN (22:45)
[2018-11-05] MEDS: HEPARIN SODIUM,PORCINE 5,000 UNIT/ML 1 ML VIAL SQ SCH ×4 (00:48→23:17)
[2018-11-05] MEDS: HYDROmorphone 0.5 MG/0.5 ML SYRINGE IVP PRN ×5 (03:51→21:17)
[2018-11-05] MEDS: SODIUM CHLORIDE 0.9% 1,000 ML IV SCH ×3 (03:51→21:09)
[2018-11-05] MEDS: IPRATROPIUM-ALBUTEROL 3 ML NEB INHALATION SCH ×6 (03:53→23:27)
[2018-11-05] MEDS: HYDROcodone/APAP 10-325MG 1 EACH TAB PO PRN ×2 (05:07→23:17)
[2018-11-05 05:47] LABS: Anisocytosis Slight; HCT 22.2 % (34.0-46.0); HGB 7.1 gm/dL (11.4-16.0); MCH 29.6 pg (25.0-35.0); MCHC 32.2 g/dL (31.0-37.0); Mean Platelet Volume 6.6; Platelet Count 298 k/uL (150-450); RBC 2.41 m/uL (3.80-5.40); RDW 17.8 % (11.5-15.5); WBC 11.9 k/uL (3.8-10.6)
[2018-11-05 05:58] LABS: Anion Gap 2 mmol/L; Blood Urea Nitrogen 12 mg/dL (7-17); Calcium 8.2 mg/dL (8.4-10.2); Carbon Dioxide 35 mmol/L (22-30); Chloride 97 mmol/L (98-107); Glucose 113 mg/dL (74-99); Magnesium 1.6 mg/dL (1.6-2.3); Phosphorus 3.5 mg/dL (2.5-4.5); Potassium 4.2 mmol/L (3.5-5.1); Sodium 134 mmol/L (137-145)
--- NOTE | 2018-11-05 07:26 | XR ---
EXAMINATION TYPE: XR chest 1V portable DATE OF EXAM: 11/05/2018 CLINICAL HISTORY: Difficulty breathing progress study. TECHNIQUE: Single AP portable upright view of the chest is obtained. COMPARISON: Chest x-ray from one day earlier and older studies. FINDINGS: 2 left-sided chest tubes are redemonstrated, the superior one has changed in position and is slightly retracted with side port outside pleural space. There is stable appearing right-sided carla st tube. There is stable left subclavian central venous catheter. There is persistent small right pleural effusion. There is persistent bibasilar atelectasis and/or in filtrate. Cardiac silhouette size is stable and within normal limits. Old right lateral mid rib fract ures are redemonstrated. No sizable pneumothorax is seen bilaterally. IMPRESSION: Persistent small right pleural effusion and bibasilar infiltrate and/or atelectasis felt stable. Superior left chest tube has been retracted with side port now outside pleural space, conside r removing.
[2018-11-05 07:27] LABS: Glucose,Whole Blood 111 mg/dL (75-99)
[2018-11-05] MEDS: INSULIN ASPART 100 UNIT/ML 1 ML 10 ML VIAL SQ SCH ×4 (08:07→21:07)
[2018-11-05] MEDS: COLCHICINE 0.6 MG EACH PO SCH (08:31)
[2018-11-05] MEDS: DICYCLOMINE 10 MG CAP PO SCH ×3 (08:31→21:01)
[2018-11-05] MEDS: busPIRone HCl 10 MG TAB PO SCH ×3 (08:31→21:01)
[2018-11-05] MEDS: PANTOPRAZOLE 40 MG TABLET PO SCH (08:31)
[2018-11-05] MEDS: ALPRAZolam 0.25 MG TAB PO PRN ×2 (08:32→21:01)
[2018-11-05] MEDS: predniSONE 10 MG TAB PO SCH (08:32)
[2018-11-05] MEDS: DULoxetine HCL 30 MG CAPSULE.DR PO SCH ×2 (08:32→21:00)
[2018-11-05] MEDS: METOPROLOL TARTRATE 50 MG TAB PO SCH ×2 (08:32→21:02)
[2018-11-05] MEDS: NYSTATIN 100,000 UNIT/ML SUSP 500,000 UNIT/5 ML CUP PO SCH ×4 (08:32→21:23)
[2018-11-05] MEDS: GABAPENTIN 300 MG CAP PO SCH ×3 (08:32→21:01)
[2018-11-05] MEDS: FORMOTEROL FUMARATE 20 MCG/2 ML NEBU INHALATION SCH ×2 (08:43→20:52)
[2018-11-05] MEDS: BUDESONIDE 1 MG/2 ML NEBU INHALATION SCH ×2 (08:43→20:52)
--- NOTE | 2018-11-05 10:03 | P.PN ---
Subjective Progress Note Date: 11/05/18 Principal diagnosis: Acute hypoxic respiratory failure secondary to COPD and bilateral pneumothoraces This is a 58-year-old female patient who follows with Dr. James as her primary care physician. She has a history of hyperlipidemia, hypothyroidism, anemia, fibromyalgia, anxiety/depression. Chest has a history of severe oxygen- dependent bullous emphysema/COPD with FEV1 value of 36% of predicted and a chronic left upper lobe inflammatory opacity that was nonmalignant. She has a history of prolonged respiratory failure requiring mechanical ventilation and was subsequently trached and [facility]. She had since been decannulated. She's had multiple admissions for COPD exacerbations most recently discharged from here on 10/16/2018. She was brought in by EMS to the emergency room yesterday with severe respiratory distress requiring initially BiPAP support. She was found to have bilateral pneumothorax and chest tubes were placed as well as a left thoravent. She had a brief cardiac arrest requiring epinephrine. She was subsequently intubated and placed on mechanical ventilator and transferred here to the intensive care unit. She is seen today in consultation with current vent settings assist- control of 16, tidal volume 350, FiO2 of 35% and a PEEP of 5. Morning blood gases reveal a P O2 of 85, pCO2 41, pH 7.38. Her measured airway resistance is currently 8.8. She is sedated on to prevent at 30 mcg/kg/m., Fentanyl drip at 1 mcg/kg per hour, 1.9 normal saline at 75 ML's per hour. She does follow simple commands. She is moving all fours. Cultures are pending. White count 7.6. Hemoglobin 10.0. Creatinine 0.69. She's been initiated and DuoNeb inhalations. Patient was reevaluated today on 10/29/2018, remains in the ICU on mechanical ventilation. Patient has been on same ventilator settings, tidal volume of 350 assist-control rate of 16 FiO2 of 35% and PEEP of 5. Patient remains on fentanyl drip, she is also on propofol drip, and both are basically maximized. Last night Dr. Meza placed the patient on Nimbex drip. However I have discontinued the Nimbex drip today, and I will try to control her agitation with fentanyl and propofol only. Patient continues to have left-sided chest tubes, and 1 right sided chest tube, all of them are showing a bit of a leak. Her ABG showed a pO2 of 120 pCO2 of 40 0 pH of 7.44. Basic metabolic profile is normal, WBC count is 10.9 hemoglobin is 9.2. Chest x-ray did show improvement in aeration of the right lung base with persistent left basilar opacity may represent mostly atelectasis or possibly pneumonia. No sizable pneumothorax is noted on both sides. Patient remains on multiple bronchodilators, and on Solu-Medrol. Today I discussed with the nurses and with the admitting physician that it would be best to consider tracheostomy and PEG tube placement since the patient is going to be almost extremely difficult to wean successfully. She had a similar episode in the past, and she did require [facility] and [facility]. Patient was reevaluated today on 10/30/2018, remains on mechanical ventilation, still requiring a significant dose of propofol and fentanyl. I have attempted to cut down the fentanyl to 25 mg per hour, and I have cut down the propofol gradually until discontinued. Her ventilator settings were noted to be assist- control rate of 16 FiO2 of 35% tidal volume of 350 and PEEP of 5. Her usual dose of propofol has been about 55 g and the dose of fentanyl was 100 g per hour. After cutting down on both and stopping her up a fall, I was able to give the patient a decent trial of pressure support of 10 and CPAP. Patient looked great and better than expected her chest x-ray was looking better today, her follow-up ABG post half hour at least on pressure support and CPAP looked great, pO2 was 79 pCO2 was 37 pH was 7.47, hence I proceeded to extubating the patient. I felt this is hour window otherwise the patient may require tracheostomy as noted previously. The rest of the labs and the chest x-ray were all reviewed. Electrolytes were normal CBC was relatively normal except for hemoglobin of 8.7. Patient was reevaluated today on 10/31/2018, patient is off mechanical ventilation , she was weaned and extubated successfully yesterday. Patient continues to have significant amount of pain medications on board, continues to be tachycardic, sinus tachycardia rate is in the 130 and 140 range. Continues to have chest tubes on both sides, one the left side and one on the left side. I have adjusted all her medications today, switched most them to oral medication, and change Solu-Medrol to prednisone, added Xanax to control her anxiety, discontinued fentanyl yesterday, and she is presently on IV medication for pain control. Her chest x-ray is showing some improvement, however the patient continues to have leaks in both tubes on both sides. She is on nasal cannula, saturating quite well, seems to be generally weak, and quite tachycardic, extremely anxious and agitated becomes very emotional when discussing her clinical condition. All labs were reviewed WBC count is 13.1 hemoglobin is 9.4 electrolytes and renal profile are normal. Patient was reevaluated today on 11/01/2018, remains in the intensive care unit, on nasal cannula, feeling much better today, breathing easier, seems to have less pain, less shortness of breath, but she continues to have significant air leak specially in one of the tubes on the left side, and minimal air leak on the right sided chest tube. Her tachycardia seems to be much better controlled , her heart rate is in the 90s, her O2 saturation is 96% on 3 L nasal cannula, and her blood pressure is 121/81 with a mean of 94. Labs and chest x-ray were reviewed, patient seems to be less anxious at this point, and all her meds including bronchodilators, steroids, antibiotics, were all addressed accordingly. Considering the significant air leak, and considering his severe COPD/emphysema with significant bullous disease, I have a feeling that the patient is going to have significant difficulty healing from her pneumothorax, and she may eventually require surgical intervention. That is yet to be decided in the next few days. Reevaluated today on 11/02/2018, patient remains in the intensive care unit, continues to have bilateral chest tubes, however the right-sided chest tube showed no leak today, and I have placed the tube on water seal, off wall suction. One of the left-sided chest tubes continues to have a significant amount of leak, hence I consulted thoracic surgery. Patient may eventually require surgical intervention. Overall the patient is doing better than expected, she has been tolerating the extubation well over the last few days. Chest x-ray was reviewed, labs were reviewed, medications were reviewed and the addressed. Discussed her condition also with a thoracic surgeon at bedside. Reevaluated today on 11/03/2018, remains in the intensive care unit, continues to have left-sided chest tube leak, right sided chest tube is off suction, chest x- ray showed no evidence of pneumothorax, CT of the chest showed significant bullous emphysema on both sides. Patient was seen by thoracic surgery on consultation, no plans for intervention at this point, the recommendation was to continue chest tubes on suction. Patient is comfortable, she is not in any form of distress. All her meds and labs were reviewed. Chest x-ray and CT of the chest was reviewed. Reevaluated today on 11/04/2018, basically the patient is about the same, the leak from the left sided chest tube seems to be much less today. And it is intermittent. No leak from the right sided chest tube. Chest x-ray is showing mostly some atelectasis of the right base. She was seen by thoracic surgery again today, and entertaining the possibility of volume reduction surgery, and eventually down the line consider pulmonary transplant. No immediate plans for surgery, patient will be given the option eventually whether she would like to have the surgery done here or in a tertiary care center. This will be decided upon hopefully in the next couple of days. In the meantime the patient is doing relatively well, resting, in no distress. WBC count is 11.7 hemoglobin is 7.5. Electrolytes and renal profile are normal. On 11/05/2018 patient seen again in follow-up in the intensive care unit, she sits up in the recliner, in no acute distress, likely on 1 L per nasal cannula pulse ox of 99%, afebrile, she remains tachycardic, with a heart rate in the 120s BPM, sinus mechanism. Current IV fluids is 0.9 normal saline at a rate of 100 ML per hour, 2 chest tubes on the left to wall suction, with serosanguineous outputs in the Pleur-evac, and one chest tube on the right to water seal. Lung sounds are clear to auscultation, no rhonchi, no wheezing. Today's chest x-ray has been reviewed with Dr. Domínguez, shows persistent small right pleural effusion and bibasilar infiltrate and/or atelectasis. Superior left chest tube has been retracted, and the site port is outside the pleural space. CT surgery is following, possibility of removal of one the chest tubes today. Labs have been reviewed, WBCs 11.9, hemoglobin is 7.1, sodium is 134, potassium is 4.2, chloride is 97, CO2 35, BUN is 12 and creatinine 0.51. Her pain is reasonably controlled, she is working on her incentive spirometer. Blood and urine cultures are negative, sputum culture only showed Tish albicans. Patient is on oral prednisone, and Pulmicort and Perforomist, and nebulized bronchodilators. Objective - Vital Signs Vital signs: Vital Signs Temp 97.6 F 11/05/18 08:00 Pulse 121 H 11/05/18 09:01 Resp 14 11/05/18 09:00 BP 110/75 11/05/18 07:00 Pulse Ox 99 11/05/18 09:00 Intake & Output 11/04/18 11/05/18 11/05/18 18:59 06:59 18:59 Intake Total 1300 1340 560 Output Total 1955 1115 400 Balance -655 225 160 Weight 56.9 kg Intake: IV 1300 1100 200 Magnesium Sulfate-D5w Pmx 300 1 gm In Dextrose/Water 1 100ml.bag @ 100 mls/hr IVPB Q1H ME[facility]U Rx#: [id number] Sodium Chloride 0.9% 1, 1000 1100 200 000 ml @ 100 mls/hr IV . Q10H ME[facility]U Rx#:[id number] Oral 240 360 Output: Chest Tube Drainage 160 110 0 Chest Tube Left Lateral 50 45 Chest Chest Tube Left Mid- 100 45 Axillary Chest Chest Tube Right Mid- 10 20 0 Axillary Chest Urine 1595 805 100 Stool 200 200 300 Other: Voiding Method Indwelling Catheter Indwelling Catheter Indwelling Catheter - Exam Physical Exam: Revealed a 58-year-old female in no distress. Head: Atraumatic normocephalic. HEENT:: [No neck masses.] [No thyromegaly.] [No JVD.] Left subclavian central line is noted. Chest: [Diminished breath sound bilaterally, no crackles or rhonchi or wheezes. Chest tubes on both sides are basically about the same. Cardiac Exam: [Normal S1 and S2, no S3 gallop, no murmur.] Abdomen: [Soft, nontender, no megaly, no rebound, no guarding, normal bowel sounds.] Extremities: [No clubbing, no edema, no cyanosis.] Neurological Exam: [No focal neurologic deficit. Extremities no clubbing edema or cyanosis. Lymphatics: No lymphadenopathy.] - Labs CBC & Chem 7: 11/05/18 05:05 11/05/18 05:05 Labs: Abnormal Lab Results - Last 24 Hours (Table) 11/04/18 11/04/18 11/04/18 Range/Units 11:46 17:17 21:18 WBC (3.8-10.6) k/uL RBC (3.80-5.40) m/uL Hgb (11.4-16.0) gm/dL Hct (34.0-46.0) % RDW (11.5-15.5) % Sodium (137-145) mmol/L Chloride (98-107) mmol/L Carbon Dioxide (22-30) mmol/L Creatinine (0.52-1.04) mg/dL Glucose (74-99) mg/dL POC Glucose (mg/dL) 139 H 210 H 102 H (75-99) mg/dL Calcium (8.4-10.2) mg/dL 11/05/18 11/05/18 11/05/18 Range/Units 05:05 05:05 07:15 WBC 11.9 H (3.8-10.6) k/uL RBC 2.41 L (3.80-5.40) m/uL Hgb 7.1 L (11.4-16.0) gm/dL Hct 22.2 L (34.0-46.0) % RDW 17.8 H (11.5-15.5) % Sodium 134 L (137-145) mmol/L Chloride 97 L (98-107) mmol/L Carbon Dioxide 35 H (22-30) mmol/L Creatinine 0.51 L (0.52-1.04) mg/dL Glucose 113 H (74-99) mg/dL POC Glucose (mg/dL) 111 H (75-99) mg/dL Calcium 8.2 L (8.4-10.2) mg/dL Assessment and Plan Plan: #1 Acute hypoxic respiratory failure secondary to acute exacerbation of severe oxygen dependent chronic obstructive pulmonary disease, complicated by bilateral pneumothorax. Status post 3 chest tube placements to on the left and one on the right. She currently has 2 chest tubes on the left, and one on the right #2 Brief cardiac arrest secondary to above responded to epinephrine. #3 Severe advanced chronic obstructive pulmonary disease and bullous emphysema with underlying FEV1 value 36% of predicted. Both oxygen and steroid dependent. #4 History of prolonged respiratory failure requiring intubation mechanical ventilation with subsequent tracheostomy and PEG tube placements and [facility]. Subsequently decannulated. #5 Previous history of right-sided pneumothorax 2. #6 Chronic left upper lobe inflammatory opacity. #7 Hyperlipidemia. #8 Hypothyroidism. #9 Chronic normocystic anemia. #10 Fibromyalgia. #11 History of anxiety/depression with previous discontinuation of her prescribed medications. #12 successful extubation on 10/30/2018, patient seems to have tolerated the extubation well, however she still has a long way to go. Considering her severe emphysema and her chest tubes, and the ongoing leak in the left sided chest tube, patient will require to remain in the ICU. Patient is being considered for possible volume reduction by thoracic surgery on the case. Plan: Continue current medical treatment, continue oral prednisone, nebulized bronchodilators, patient is doing reasonably well. No acute distress, today's chest x-ray was reviewed with Dr. Meza, and showed persistent small right pleural effusion and bibasilar atelectasis stable in appearance. CT surgery is following, anticipate removal one of the chest tubes today. Continue encouraging deep breathing and coughing. Patient is being considered for volume reduction or injury, [facility] at [facility]. She remains stable at this time. We'll continue to follow Critical care is over 30 minutes I performed a history & physical examination of the patient and discussed their management with my nurse practitioner, Carmella Jimenez. I reviewed the nurse practitioner's note and agree with the documented findings and plan of care. Lung sounds are positive for clear. The findings and the impression was discussed with the patient. I attest to the documentation by the nurse practitioner. Time with Patient: Greater than 30
[2018-11-05] MEDS: MAGNESIUM SULFATE-D5W PMX 1 GM in DEXTROSE/WATER 1 100ML.BAG IVPB SCH ×2 (10:30→11:51)
--- NOTE | 2018-11-05 11:20 | P.PN ---
Subjective Progress Note Date: 11/05/18 Principal diagnosis: Severe end-stage COPD with home oxygen use and previous FEV1 completed which showed her predicted value of 36%, history of previous tracheostomy and PEG tube placement in June 2018, home oxygen use, fibromyalgia, GERD, history of GI bleed, hypertension, hyperlipidemia, history of pneumonia, osteoarthritis , history of multiple pneumothorax with Thoravent placement 2, history of Crohn 's disease with multiple bowel surgeries and previous tobacco dependence quit smoking 2 years ago. The patient is currently sitting up to the bedside chair. She is in no acute distress. She denies any complaints of pain or shortness of breath at this time. She is currently on 1 L nasal cannula with oxygen saturations 94% and achieving 750 to 1000 mL on her incentive spirometry with encouragement. She remains with 2 left pleural chest tubes and one right pleural chest tube. Her left pleural chest tubes are showing an intermittent air leak, remains to continuous low wall suction. The right pleural chest tube is to water seal and no air leak is present. Dr. Aguila from cardiothoracic surgery spoke with the patient at length yesterday regarding possible transfer to a tertiary center for a bullectomy surgery and evaluation for possible lung transplant. Objective - Vital Signs Vital signs: Vital Signs Temp 97.6 F 11/05/18 08:00 Pulse 121 H 11/05/18 09:01 Resp 14 11/05/18 09:00 BP 110/75 11/05/18 07:00 Pulse Ox 99 11/05/18 09:00 Intake & Output 11/04/18 11/05/18 11/05/18 18:59 06:59 18:59 Intake Total 1300 1340 760 Output Total 1955 1115 750 Balance -655 225 10 Weight 56.9 kg Intake: IV 1300 1100 400 Magnesium Sulfate-D5w Pmx 300 1 gm In Dextrose/Water 1 100ml.bag @ 100 mls/hr IVPB Q1H [facility]U Rx#: [id number] Sodium Chloride 0.9% 1, 1000 1100 400 000 ml @ 100 mls/hr IV . Q10H MEENU Rx#:[id number] Oral 240 360 Output: Chest Tube Drainage 160 110 0 Chest Tube Left Lateral 50 45 Chest Chest Tube Left Mid- 100 45 Axillary Chest Chest Tube Right Mid- 10 20 0 Axillary Chest Urine 1595 805 450 Stool 200 200 300 Other: Voiding Method Indwelling Catheter Indwelling Catheter Indwelling Catheter - Constitutional General appearance: Present: cooperative, no acute distress - Respiratory Details: Lungs sounds are diminished throughout, no wheezes, rhonchi or crackles present. Left pleural chest tubes remain in place to low continuous wall suction -20 cm H2O. Intermittent air leak present. Right pleural chest tube remains in place to water seal. No air leak is present. Achieving 750-1000 mL on her incentive spirometry. - Cardiovascular Details: Regular rhythm and tachycardic rate. S1 and S2 present, negative for S3, gallop or murmur. Bedside telemetry is demonstrating sinus tachycardia heart rate 126. No edema present. - Gastrointestinal Gastrointestinal Comment(s): Abdomen soft, nontender and nondistended. Active bowel sounds all 4 abdominal quadrants. Ileostomy to her right abdominal lower quadrant, light brown stool. Tolerating oral intake. - Genitourinary Genitourinary Comment(s): Ribera catheter for accurate I&O. Draining clear yellow urine. 470 mL output last 8 hours. - Integumentary Integumentary Comment(s): Skin is warm and dry. No clubbing or cyanosis present. Erythremic areas to her mid back clean, and dry. No drainage present. - Neurologic Neurologic: Present: CNII-XII intact - Musculoskeletal Musculoskeletal: Present: gait normal, generalized weakness, strength equal bilaterally - Psychiatric Psychiatric: Present: A&O x's 3, appropriate affect, intact judgment & insight - Allied health notes Allied health notes reviewed: nursing - Labs CBC & Chem 7: 11/05/18 05:05 11/05/18 05:05 Labs: Abnormal Lab Results - Last 24 Hours (Table) 11/04/18 11/04/18 11/04/18 Range/Units 11:46 17:17 21:18 WBC (3.8-10.6) k/uL RBC (3.80-5.40) m/uL Hgb (11.4-16.0) gm/dL Hct (34.0-46.0) % RDW (11.5-15.5) % Sodium (137-145) mmol/L Chloride (98-107) mmol/L Carbon Dioxide (22-30) mmol/L Creatinine (0.52-1.04) mg/dL Glucose (74-99) mg/dL POC Glucose (mg/dL) 139 H 210 H 102 H (75-99) mg/dL Calcium (8.4-10.2) mg/dL 11/05/18 11/05/18 11/05/18 Range/Units 05:05 05:05 07:15 WBC 11.9 H (3.8-10.6) k/uL RBC 2.41 L (3.80-5.40) m/uL Hgb 7.1 L (11.4-16.0) gm/dL Hct 22.2 L (34.0-46.0) % RDW 17.8 H (11.5-15.5) % Sodium 134 L (137-145) mmol/L Chloride 97 L (98-107) mmol/L Carbon Dioxide 35 H (22-30) mmol/L Creatinine 0.51 L (0.52-1.04) mg/dL Glucose 113 H (74-99) mg/dL POC Glucose (mg/dL) 111 H (75-99) mg/dL Calcium 8.2 L (8.4-10.2) mg/dL - Imaging and Cardiology Chest x-ray: report reviewed, image reviewed Assessment and Plan (1) Acute exacerbation of chronic obstructive airways disease Current Visit: Yes Status: Acute Code(s): J44.1 - CHRONIC OBSTRUCTIVE PULMONARY DISEASE W (ACUTE) EXACERBATION SNOMED Code(s): 701943180 (2) Bilateral pneumothorax Current Visit: Yes Status: Acute Code(s): J93.9 - PNEUMOTHORAX, UNSPECIFIED SNOMED Code(s): 50094458 (3) Cardiopulmonary arrest with successful resuscitation Current Visit: Yes Status: Acute Code(s): I46.9 - CARDIAC ARREST, CAUSE UNSPECIFIED SNOMED Code(s): 989001156 (4) Failure to wean from mechanical ventilation Current Visit: Yes Status: Acute Code(s): Z99.11 - DEPENDENCE ON RESPIRATOR [VENTILATOR] STATUS SNOMED Code(s): 728707705 Plan: 1. The patient may be transferred to [facility] for possible volume reduction surgery and evaluation for lung transplant. 2. Continued medical management per primary care service, bronchodilator and steroid management per pulmonology. 3. GI/DVT prophylaxis. 4. Continue to encourage use of her incentive spirometry every hour while awake. 5. Increase activity as tolerated. Out of bed for all meals. 6. More recommendations to follow based on patient's clinical course. Time with Patient: Greater than 30
[2018-11-05 12:06] LABS: Glucose,Whole Blood 193 mg/dL (75-99)
--- NOTE | 2018-11-05 15:46 | P.PN ---
Subjective Progress Note Date: 11/05/18 This is a 58-year-old female who follows with Dr. James as her primary care physician. She has a history of hyperlipidemia, hypothyroidism, anemia, fibromyalgia, anxiety/depression, COPD. She presented to the emergency department with dyspnea. Patient was at home when she experienced rest for distress and called EMS. In route to the hospital she was put on a BiPAP due to minimal responsiveness. Upon arrival to the emergency department her initial vital signs were tachycardic with no measurable pulse oximetry and she was hypotensive. Patient was positive for JVD, 1 view chest was obtained for a positive pneumothorax 50% on the left and a possible pneumothorax on the right. A chest tube was placed on the left and patient had failure to respond to treatment. At which CPR was initiated by ACLS protocol for approximately 1 minute. A central line was placed in the left subclavian vein during the code. Patient was intubated. An repeat chest x-ray showed a pneumothorax on the right and a right-sided 24-Scottish chest tube was placed. Patient's vital signs improved and she was transported to ICU for continuation of care. Patient presents intubated at this time. She is awake and able to answer questions appropriately. Her current vent setting assist control of 16, tidal volume 350 , FiO2 at 35% and a PEEP of 5. Her morning blood gases reveal a pO2 of 85 pCO2 of 41 pH 7.38. H&H is currently sedated with 30 mics per KG per minute of debridement and, fentanyl drip at 1 MCG per KG per hour. Patient is able to follow commands she is able to move all 4 extremities. Her white count is 7.6, hemoglobin of 10, creatinine 0.6. 10/28: Patient continues to be sedated and intubated. Chest x-ray this morning showed significant progression of left-sided pneumothorax estimated at 50%. Left lower lobe pleural catheter appears unchanged in position. It increased subcutaneous air identified. Subsequently the patient underwent a another chest tube insertion on the left side to help relieve the pneumothorax. Repeat checks x-ray showed a persistent left apical pneumothorax estimated at 15-20%. A new left-sided chest tube place. Patient is receiving tube feedings through NG tube at this time. She continues to be on propofol at 65 mics per KG per minute and fentanyl drip at 1 nury per KG per hour. Patient also is getting Dilaudid and [place] as needed for pain. Her brought in opium to help with abdominal discomfort. Vent settings are unchanged the vent setting assist control 16, tidal volume of 350, FiO2 at 35%, and a PEEP of 5. Patient's urinary output is 50-70 mL per hour. Discussed findings with at the bedside in the plan to continue with sedation and intubation to rest the lungs and we will reassess tomorrow for possible weaning. states that this happened a few months ago where she was on prolonged intubation due to her lungs not recovering. 10/29: Patient continues to be sedated and intubated. Chest x-ray does show improvement to bilateral pneumothorax and [address]. Patient has been tachycardic overnight with a rate in the 130s. Patient grimaces in pain and withdraws. Patient continue to see tube feedings through NG tube. She continues to be on propofol and fentanyl for sedation. Patient was on Nimbex overnight however that has been DC'd. Vent settings are unchanged with the vent assist control 16, tidal volume 350, FiO2 at 35%, and a PEEP of 5. Patient 's urinary output continues to be 50-70 ML's per hour. Discussed case with pulmonology and consult for trach and PEG tube is in place. Pulmonology does not feel the patient will be successful in weaning. 10/30/18: Patient is sitting up in bed extubated. Patient was successfully weaned this morning. She is alert and orientated 3 and able to answer questions appropriately. Patient is complaining of pain to the chest due to the 3 chest tubes that are in place. Patient does have a history of Crohn's and discussed the medication she normally takes for them including Humira which we will hold at this time. Patient continues to be on sentinel drip for pain she also is receiving Dilaudid as needed for breakthrough pain. CBC 11.3, hemoglobin 8.7, potassium 4.7 BUN 28 creatinine 0.5. 10/31: Patient remains in the intensive care unit. She was successfully extubated yesterday and is currently pulse ox is 96% on 4 L nasal cannula. White count is 13.1, hemoglobin 9.4, CO2 is 32, electrolytes within normal limits, creatinine 0.54. Sputum cultures positive for Tish albicans. Urine culture finalized with no growth and blood culture showing no growth after 96 hours. Repeat chest x-ray shows 2 chest tubes on the left and one on the right. No appreciable pneumothorax. Relative upper lung lucency suggesting underlying emphysema. Continue small pleural effusions with adjacent atelectasis or consolidations. Cardiothoracic surgery signing off the case is no plan is for trach and PEG placement. Patient remains with 2 left-sided chest tubes in 1 right-sided chest tube. Pulmonary is planning to maintain chest tubes. Solu-Medrol transitioned to prednisone. bus monitor is a sinus tachycardia. Ribera catheter is in place draining adequate amount of urine. Ileostomy with dark brown stool. Patient has been seen by GI with recommendations to continue Humira every 2 weeks and can be restarted after discharge the patient had verbalized that she did not want to continue on Humira. Patient is to follow-up with Dr. Verma in the office as scheduled. Patient currently has [facility] home care in place. PT to start working with patient today. [facility] Home medications will be reviewed. 11/01: Patient remains in the intensive care unit and breathing continues to improve slowly. Pulse ox is 96% on 3 L nasal cannula, heart rates running in the 90s. White count is 13.1, hemoglobin 9.6, creatinine 0.54. Electrolytes within normal limits. Patient is requesting using her home nicotine gum which will be ordered. Sputum culture showing Tish. 11/02: Patient remains in the intensive care unit. Repeat chest x-ray shows bilateral chest tubes remain unchanged. No evidence of sizable pneumothorax within either lung at this time. CAT scan of the chest reveals bilateral pneumothorax disease. Chest tubes are present. Consider reposition a right- sided chest tube. Bilateral apical masses left side is increasing in size. She does have bilateral chest tubes and there is plan for possibly removing the right side in the next couple days. There is a considerable leak on one of the left sided chest tubes in cardiothoracic surgery has been reconsulted. Patient is working with physical therapy and occupational therapy at the bedside. 11/03: Patient remains in the intensive care unit. She has 2 left-sided chest tubes in 1 right-sided chest tube in place. She states she is having cough with sputum production. She is using her incentive spirometry. Overall, she states her breathing is improving slowly. She does complain of chest pain more so on the left side. She does state that yesterday she started having increased stool from her ostomy and feels that she is having a flareup of her Crohn's. She does have opium available. We will start her back on IV fluids to avoid dehydration, monitor electrolytes. Heart rate remains elevated for which Lopressor will be increased to 50 mg twice daily which is her home dose. Verapamil is on hold due to hypotension. 11/04: Patient states that she had a lot of diarrhea yesterday but this seems to be decreasing this morning. She is feeling better from yesterday. She has had good urine output. She states this morning there was bleeding from one of her chest tubes in the bed which has been cleaned up in everything has been changed. Heart rate is remaining elevated. Lopressor is currently at 50 g twice daily. Cardiothoracic surgery does not plan for any surgical intervention. Patient encouraged to use incentive spirometry and increase activity area 11/05: Cardiothoracic surgeon discussed with patient transferred to [facility] for blebectomy and look at lung transplant evaluation. Awaiting clearance from pulmonary medicine and we'll make arrangements to transfer. Patient states her breathing is better today. She states she has been up since 5 AM and walked in the hallway twice and now she's tired. There is less leak on the left chest tube. Magnesium is been replaced. Heart rate is still running in the 120s. She states diarrhea is slowing and a thicker consistency. Review Of Systems: Constitutional: Pain to the chest due to chest tube No fever, no chills, no night sweats. No weight change. Reports weakness, fatigue or lethargy. EENT: No headache. No blurred vision or double vision, no loss of vision. No loss of Hearing, no ringing in the ears, no dizziness. No nasal drainage or congestion. No epistaxis. No sore throat. Lungs: No shortness of breath, cough, no sputum production. No wheezing. Cardiovascular: No chest pain, no lower extremity edema. No palpitations. No paroxysmal nocturnal dyspnea. No orthopnea. No lightheadedness or dizziness. No syncopal episodes. Abdominal: no abdominal discomfort. Reports nausea, denies vomiting. Reports diarrhea. No constipation. No bloody or tarry stools. Reports loss of appetite. Genitourinary: No dysuria, increased frequency, urgency. No urinary retention. Musculoskeletal: No myalgias. No muscle weakness, no gait dysfunction, no frequent falls. No back pain. No neck pain. Integumentary: No wounds, no lesions. No rash or pruritus. No unusual bruising. No change in hair or nails. Neurologic: No aphasia. No facial droop. No change in mentation. No head injury. No headache. No paralysis. No paresthesia. Psychiatric: No depression. No anxiety. No mood swings. Endocrine: No abnormal blood sugars. Objective - Vital Signs Vital signs: Vital Signs Temp 97.6 F 11/05/18 08:00 Pulse 121 H 11/05/18 09:01 Resp 15 11/05/18 08:00 BP 110/75 11/05/18 07:00 Pulse Ox 98 11/05/18 08:00 Intake & Output 11/04/18 11/05/18 11/05/18 18:59 06:59 18:59 Intake Total 1300 1340 560 Output Total 1955 1115 400 Balance -655 225 160 Weight 56.9 kg Intake: IV 1300 1100 200 Magnesium Sulfate-D5w Pmx 300 1 gm In Dextrose/Water 1 100ml.bag @ 100 mls/hr IVPB Q1H MEENU Rx#: [id number] Sodium Chloride 0.9% 1, 1000 1100 200 000 ml @ 100 mls/hr IV . Q10H MEENU Rx#:[id number] Oral 240 360 Output: Chest Tube Drainage 160 110 Chest Tube Left Lateral 50 45 Chest Chest Tube Left Mid- 100 45 Axillary Chest Chest Tube Right Mid- 10 20 Axillary Chest Urine 1595 805 100 Stool 200 200 300 Other: Voiding Method Indwelling Catheter Indwelling Catheter - Exam General appearance: Present: average body habitus, cooperative, no acute distress. Patient is resting in bed and appears to be comfortable - EENT Eyes: Present: anicteric sclerae, EOMI, PERRLA ENT: Present: hearing grossly normal, NA/AT - Neck Neck: Present: normal ROM. Absent: lymphadenopathy - Respiratory Respiratory: bilateral: diminished, wheezing, no accessory muscle usage negative : dullness, rales, rhonchi, prolonged expiration, prolonged inspiration, other 2 left-sided chest tubes and 1 right-sided chest tube - Cardiovascular Rhythm: regular Heart sounds: normal: S1, S2 Abnormal Heart Sounds: Absent: systolic murmur, diastolic murmur, rub, S3 Gallop , S4 Gallop, click, other - Gastrointestinal General gastrointestinal: Present: normal bowel sounds, soft. Mild generalized tenderness, ileostomy in place Ribera with clear alexis urine return. - Integumentary Integumentary: Present: pale - Neurologic Neurologic: Present: CNII-XII intact - Musculoskeletal Musculoskeletal: Present: generalized weakness, strength equal bilaterally - Psychiatric Psychiatric: Present: A&O x's 3, appropriate affect, intact judgment & insight - Labs CBC & Chem 7: 11/05/18 05:05 11/05/18 05:05 Labs: Abnormal Lab Results - Last 24 Hours (Table) 11/04/18 11/04/18 11/04/18 Range/Units 11:46 17:17 21:18 WBC (3.8-10.6) k/uL RBC (3.80-5.40) m/uL Hgb (11.4-16.0) gm/dL Hct (34.0-46.0) % RDW (11.5-15.5) % Sodium (137-145) mmol/L Chloride (98-107) mmol/L Carbon Dioxide (22-30) mmol/L Creatinine (0.52-1.04) mg/dL Glucose (74-99) mg/dL POC Glucose (mg/dL) 139 H 210 H 102 H (75-99) mg/dL Calcium (8.4-10.2) mg/dL 11/05/18 11/05/18 11/05/18 Range/Units 05:05 05:05 07:15 WBC 11.9 H (3.8-10.6) k/uL RBC 2.41 L (3.80-5.40) m/uL Hgb 7.1 L (11.4-16.0) gm/dL Hct 22.2 L (34.0-46.0) % RDW 17.8 H (11.5-15.5) % Sodium 134 L (137-145) mmol/L Chloride 97 L (98-107) mmol/L Carbon Dioxide 35 H (22-30) mmol/L Creatinine 0.51 L (0.52-1.04) mg/dL Glucose 113 H (74-99) mg/dL POC Glucose (mg/dL) 111 H (75-99) mg/dL Calcium 8.2 L (8.4-10.2) mg/dL Assessment and Plan Plan: #1 Acute hypoxic respiratory failure secondary to acute exacerbation of severe oxygen dependent chronic obstructive pulmonary disease, complicated by bilateral pneumothorax. Status post bilateral chest tube placements. Patient has been successfully extubated. Continue Dilaudid 1 mg every 3 hours as needed for break through pain and [place] as needed. Continue DuoNeb treatments every 4 hours scheduled and as needed, Pulmicort 1 mg twice daily, Perforomist twice daily, prednisone. Pulmonary consult appreciated Cardiothoracic surgery has been reconsulted there is no plan for surgical intervention. Patient may be transferred to [facility] for further surgical intervention and also lung transplant evaluation. #2 Brief cardiac arrest secondary to above responded to epinephrine. #3 Severe advanced chronic obstructive pulmonary disease and bullous emphysema with underlying FEV1 value 36% of predicted. Both oxygen and steroid dependent. Continue Pulmicort, continue prednisone. #4 History of prolonged respiratory failure requiring intubation mechanical ventilation with subsequent tracheostomy and PEG tube placements and [facility]. #5 bilateral pneumothorax related to severe advanced stages of COPD and bullous emphysema Chest tubes in place. Repeat chest x-ray #6 Previous history of right-sided pneumothorax 2. #7 Chronic left upper lobe inflammatory opacity. #8 Hyperlipidemia. #9 Hypertension. Continue to monitor blood pressure #10 Chronic normocystic anemia, anemia of chronic disease. Monitor CBC #11 Fibromyalgia. Continue Dilaudid or [place] as needed #12 Generalized anxiety disorder and recurrent depression. #13 History of Crohn's with possible exacerbation. Consult gastroenterology. Continue opium. IV fluids 0.9 normal saline at 100 mL per hour. #14 GI prophylactics Protonix 40 mg IV daily #15 DVT prophylaxis heparin 5000 units subcu every 8 hours Discharge plan: Most likely/subacute rehab Impression and plan of care have been directed as dictated by the signing physician. Gaby Rothman nurse practitioner acting as scribe for signing physician.
[2018-11-05 17:23] LABS: Glucose,Whole Blood 126 mg/dL (75-99)
[2018-11-05] MEDS: LATANOPROST 0.005% OPHTH DROPS 2.5 ML BTL BOTH EYES SCH (21:00)
[2018-11-05] MEDS: MELATONIN 5 MG TABLET PO SCH (21:02)
[2018-11-05 21:16] LABS: Glucose,Whole Blood 170 mg/dL (75-99)
[2018-11-06] MEDS: HYDROmorphone 0.5 MG/0.5 ML SYRINGE IVP PRN ×7 (02:53→21:49)
[2018-11-06] MEDS: IPRATROPIUM-ALBUTEROL 3 ML NEB INHALATION SCH ×5 (03:44→21:08)
[2018-11-06 05:45] LABS: Anisocytosis Slight; HCT 22.2 % (34.0-46.0); HGB 7.5 gm/dL (11.4-16.0); MCH 30.7 pg (25.0-35.0); MCHC 33.7 g/dL (31.0-37.0); MCV 91.1 fL (80.0-100.0); Mean Platelet Volume 6.7; Platelet Count 318 k/uL (150-450); RBC 2.44 m/uL (3.80-5.40); RDW 17.5 % (11.5-15.5); WBC 12.9 k/uL (3.8-10.6)
[2018-11-06 05:58] LABS: Anion Gap 0 mmol/L; Blood Urea Nitrogen 16 mg/dL (7-17); Calcium 8.3 mg/dL (8.4-10.2); Carbon Dioxide 36 mmol/L (22-30); Chloride 98 mmol/L (98-107); Glucose 112 mg/dL (74-99); Magnesium 1.6 mg/dL (1.6-2.3); Phosphorus 3.2 mg/dL (2.5-4.5); Potassium 4.4 mmol/L (3.5-5.1); Sodium 134 mmol/L (137-145)
[2018-11-06] MEDS ORDERED: Magnesium Replacement Protocol 1 EACH MISC MISCELLANE PRN (06:18)
[2018-11-06] MEDS: MAGNESIUM SULFATE-D5W PMX 1 GM in DEXTROSE/WATER 1 100ML.BAG IVPB SCH ×2 (07:09→08:19)
[2018-11-06 07:15] LABS: Glucose,Whole Blood 99 mg/dL (75-99)
[2018-11-06] MEDS: INSULIN ASPART 100 UNIT/ML 1 ML 10 ML VIAL SQ SCH ×4 (07:23→21:07)
[2018-11-06] MEDS: ALPRAZolam 0.25 MG TAB PO PRN ×2 (08:20→21:09)
[2018-11-06] MEDS: PANTOPRAZOLE 40 MG TABLET PO SCH (08:21)
[2018-11-06] MEDS: predniSONE 10 MG TAB PO SCH (08:21)
[2018-11-06] MEDS: METOPROLOL TARTRATE 50 MG TAB PO SCH ×2 (08:21→21:09)
[2018-11-06] MEDS: HEPARIN SODIUM,PORCINE 5,000 UNIT/ML 1 ML VIAL SQ SCH ×3 (08:21→23:01)
[2018-11-06] MEDS: GABAPENTIN 300 MG CAP PO SCH ×3 (08:21→21:09)
[2018-11-06] MEDS: DICYCLOMINE 10 MG CAP PO SCH ×3 (08:22→21:09)
[2018-11-06] MEDS: COLCHICINE 0.6 MG EACH PO SCH (08:22)
[2018-11-06] MEDS: DULoxetine HCL 30 MG CAPSULE.DR PO SCH ×2 (08:23→21:07)
[2018-11-06] MEDS: busPIRone HCl 10 MG TAB PO SCH ×3 (08:23→21:09)
[2018-11-06] MEDS: BUDESONIDE 1 MG/2 ML NEBU INHALATION SCH ×2 (08:26→21:08)
[2018-11-06] MEDS: FORMOTEROL FUMARATE 20 MCG/2 ML NEBU INHALATION SCH ×2 (08:26→21:08)
--- NOTE | 2018-11-06 08:40 | XR ---
EXAMINATION TYPE: XR chest 1V portable DATE OF EXAM: 11/06/2018 Comparison: 11/05/2018 Clinical History: 58-year-old female Chest tubes and follow up Findings: Left subclavian CVC tip at the cavoatrial junction. Prominent upper lung lucencies suggesting underly ing blood. 2 left-sided chest tubes are present the sagittal 4 1 of the chest tubes may be at or just outside of the pleural space. Focal nodular density left upper lobe persists. Right-sided chest tube remains. No appreciable pneumothorax. Persistent small bilateral pleural effusions is prominent biba silar opacities. Impression: 1. COPD with left upper lobe nodule. Possible increasing nodularity at the right base. 2. 2 chest tubes on the left and one chest tube on the right. No appreciable pneumothorax. However, t he sidehole for the left-sided chest tubes may be at or just outside of the pleural space. 3. Small bilateral pleural effusions with adjacent atelectasis and/or consolidation similar to slight ly increased.
--- NOTE | 2018-11-06 09:04 | P.PN ---
Subjective Progress Note Date: 11/06/18 Principal diagnosis: Acute hypoxic respiratory failure secondary to COPD and bilateral pneumothoraces This is a 58-year-old female patient who follows with Dr. James as her primary care physician. She has a history of hyperlipidemia, hypothyroidism, anemia, fibromyalgia, anxiety/depression. Chest has a history of severe oxygen- dependent bullous emphysema/COPD with FEV1 value of 36% of predicted and a chronic left upper lobe inflammatory opacity that was nonmalignant. She has a history of prolonged respiratory failure requiring mechanical ventilation and was subsequently tr[facility]. She had since been decannulated. She's had multiple admissions for COPD exacerbations most recently discharged from here on 10/16/2018. She was brought in by EMS to the emergency room yesterday with severe respiratory distress requiring initially BiPAP support. She was found to have bilateral pneumothorax and chest tubes were placed as well as a left thoravent. She had a brief cardiac arrest requiring epinephrine. She was subsequently intubated and placed on mechanical ventilator and transferred here to the intensive care unit. She is seen today in consultation with current vent settings assist- control of 16, tidal volume 350, FiO2 of 35% and a PEEP of 5. Morning blood gases reveal a P O2 of 85, pCO2 41, pH 7.38. Her measured airway resistance is currently 8.8. She is sedated on to prevent at 30 mcg/kg/m., Fentanyl drip at 1 mcg/kg per hour, 1.9 normal saline at 75 ML's per hour. She does follow simple commands. She is moving all fours. Cultures are pending. White count 7.6. Hemoglobin 10.0. Creatinine 0.69. She's been initiated and DuoNeb inhalations. Patient was reevaluated today on 10/29/2018, remains in the ICU on mechanical ventilation. Patient has been on same ventilator settings, tidal volume of 350 assist-control rate of 16 FiO2 of 35% and PEEP of 5. Patient remains on fentanyl drip, she is also on propofol drip, and both are basically maximized. Last night Dr. Meza placed the patient on Nimbex drip. However I have discontinued the Nimbex drip today, and I will try to control her agitation with fentanyl and propofol only. Patient continues to have left-sided chest tubes, and 1 right sided chest tube, all of them are showing a bit of a leak. Her ABG showed a pO2 of 120 pCO2 of 40 0 pH of 7.44. Basic metabolic profile is normal, WBC count is 10.9 hemoglobin is 9.2. Chest x-ray did show improvement in aeration of the right lung base with persistent left basilar opacity may represent mostly atelectasis or possibly pneumonia. No sizable pneumothorax is noted on both sides. Patient remains on multiple bronchodilators, and on Solu-Medrol. Today I discussed with the nurses and with the admitting physician that it would be best to consider tracheostomy and PEG tube placement since the patient is going to be almost extremely difficult to wean successfully. She had a similar episode in the past, and she did require [facility] and [facility]. Patient was reevaluated today on 10/30/2018, remains on mechanical ventilation, still requiring a significant dose of propofol and fentanyl. I have attempted to cut down the fentanyl to 25 mg per hour, and I have cut down the propofol gradually until discontinued. Her ventilator settings were noted to be assist- control rate of 16 FiO2 of 35% tidal volume of 350 and PEEP of 5. Her usual dose of propofol has been about 55 g and the dose of fentanyl was 100 g per hour. After cutting down on both and stopping her up a fall, I was able to give the patient a decent trial of pressure support of 10 and CPAP. Patient looked great and better than expected her chest x-ray was looking better today, her follow-up ABG post half hour at least on pressure support and CPAP looked great, pO2 was 79 pCO2 was 37 pH was 7.47, hence I proceeded to extubating the patient. I felt this is hour window otherwise the patient may require tracheostomy as noted previously. The rest of the labs and the chest x-ray were all reviewed. Electrolytes were normal CBC was relatively normal except for hemoglobin of 8.7. Patient was reevaluated today on 10/31/2018, patient is off mechanical ventilation , she was weaned and extubated successfully yesterday. Patient continues to have significant amount of pain medications on board, continues to be tachycardic, sinus tachycardia rate is in the 130 and 140 range. Continues to have chest tubes on both sides, one the left side and one on the left side. I have adjusted all her medications today, switched most them to oral medication, and change Solu-Medrol to prednisone, added Xanax to control her anxiety, discontinued fentanyl yesterday, and she is presently on IV medication for pain control. Her chest x-ray is showing some improvement, however the patient continues to have leaks in both tubes on both sides. She is on nasal cannula, saturating quite well, seems to be generally weak, and quite tachycardic, extremely anxious and agitated becomes very emotional when discussing her clinical condition. All labs were reviewed WBC count is 13.1 hemoglobin is 9.4 electrolytes and renal profile are normal. Patient was reevaluated today on 11/01/2018, remains in the intensive care unit, on nasal cannula, feeling much better today, breathing easier, seems to have less pain, less shortness of breath, but she continues to have significant air leak specially in one of the tubes on the left side, and minimal air leak on the right sided chest tube. Her tachycardia seems to be much better controlled , her heart rate is in the 90s, her O2 saturation is 96% on 3 L nasal cannula, and her blood pressure is 121/81 with a mean of 94. Labs and chest x-ray were reviewed, patient seems to be less anxious at this point, and all her meds including bronchodilators, steroids, antibiotics, were all addressed accordingly. Considering the significant air leak, and considering his severe COPD/emphysema with significant bullous disease, I have a feeling that the patient is going to have significant difficulty healing from her pneumothorax, and she may eventually require surgical intervention. That is yet to be decided in the next few days. Reevaluated today on 11/02/2018, patient remains in the intensive care unit, continues to have bilateral chest tubes, however the right-sided chest tube showed no leak today, and I have placed the tube on water seal, off wall suction. One of the left-sided chest tubes continues to have a significant amount of leak, hence I consulted thoracic surgery. Patient may eventually require surgical intervention. Overall the patient is doing better than expected, she has been tolerating the extubation well over the last few days. Chest x-ray was reviewed, labs were reviewed, medications were reviewed and the addressed. Discussed her condition also with a thoracic surgeon at bedside. Reevaluated today on 11/03/2018, remains in the intensive care unit, continues to have left-sided chest tube leak, right sided chest tube is off suction, chest x- ray showed no evidence of pneumothorax, CT of the chest showed significant bullous emphysema on both sides. Patient was seen by thoracic surgery on consultation, no plans for intervention at this point, the recommendation was to continue chest tubes on suction. Patient is comfortable, she is not in any form of distress. All her meds and labs were reviewed. Chest x-ray and CT of the chest was reviewed. Reevaluated today on 11/04/2018, basically the patient is about the same, the leak from the left sided chest tube seems to be much less today. And it is intermittent. No leak from the right sided chest tube. Chest x-ray is showing mostly some atelectasis of the right base. She was seen by thoracic surgery again today, and entertaining the possibility of volume reduction surgery, and eventually down the line consider pulmonary transplant. No immediate plans for surgery, patient will be given the option eventually whether she would like to have the surgery done here or in a tertiary care center. This will be decided upon hopefully in the next couple of days. In the meantime the patient is doing relatively well, resting, in no distress. WBC count is 11.7 hemoglobin is 7.5. Electrolytes and renal profile are normal. On 11/05/2018 patient seen again in follow-up in the intensive care unit, she sits up in the recliner, in no acute distress, likely on 1 L per nasal cannula pulse ox of 99%, afebrile, she remains tachycardic, with a heart rate in the 120s BPM, sinus mechanism. Current IV fluids is 0.9 normal saline at a rate of 100 ML per hour, 2 chest tubes on the left to wall suction, with serosanguineous outputs in the Pleur-evac, and one chest tube on the right to water seal. Lung sounds are clear to auscultation, no rhonchi, no wheezing. Today's chest x-ray has been reviewed with Dr. Domínguez, shows persistent small right pleural effusion and bibasilar infiltrate and/or atelectasis. Superior left chest tube has been retracted, and the site port is outside the pleural space. CT surgery is following, possibility of removal of one the chest tubes today. Labs have been reviewed, WBCs 11.9, hemoglobin is 7.1, sodium is 134, potassium is 4.2, chloride is 97, CO2 35, BUN is 12 and creatinine 0.51. Her pain is reasonably controlled, she is working on her incentive spirometer. Blood and urine cultures are negative, sputum culture only showed Tish albicans. Patient is on oral prednisone, and Pulmicort and Perforomist, and nebulized bronchodilators. On October 2018 patient seen again in follow-up in the intensive care unit, she sits up in the recliner, in no acute distress, currently on 2 L per nasal cannula, sats is 93%, patient is afebrile, hemodynamically stable, heart rate is better controlled, with intermittent periods of tachycardia. Lung sounds are diminished breath sounds over right lower base, a few limited crackles over left lower base, patient still has the 2 left-sided pleural chest tubes in place on the left and 1 right-sided pleural chest tube, with some serosanguineous output, all chest tubes are placed to waterseal, repeat chest x- rays pending. CT surgery is following. Today's lab work has been noted, the PVCs 12.9, hemoglobin is 7.5, sodium is 134, potassium is 4.4, chloride is 98 CO2 36, BUN 16 and creatinine 0.47. No worsening dyspnea, patient is working on her incentive spirometer, she does have a loose nonproductive congested cough , she has a valve at the bedside, and she using it. Today's chest x-ray has been reviewed with Dr. Domínguez, shows COPD with left upper lobe nodule, and possibly increasing nodularity at the right base, 2 chest tubes on the left and one chest tube on the right, no appreciable pneumothorax, the site for the left- sided chest tube is outside of the pleural space, small bilateral pleural effusions with adjacent atelectasis. Microbiology has been reviewed, sputum culture with Tish albicans only, no fever or chills, IV steroids have been transitioned to oral prednisone, patient remains on nebulized bronchodilators. Objective - Vital Signs Vital signs: Vital Signs Temp 98.2 F 11/06/18 04:00 Pulse 116 H 11/06/18 08:53 Resp 28 H 11/06/18 07:00 BP 97/67 11/06/18 07:00 Pulse Ox 93 L 11/06/18 07:00 Intake & Output 01/07/19 01/08/19 01/08/19 18:59 06:59 18:59 Intake Total 1920 360 30 Output Total 1715 1235 65 Balance 205 -875 -35 Weight 57.8 kg Intake: IV 620 360 30 Magnesium Sulfate-D5w Pmx 100 1 gm In Dextrose/Water 1 100ml.bag @ 100 mls/hr IVPB Q1H ME[facility] Rx#: [id number] Sodium Chloride 0.9% 1, 520 360 30 000 ml @ 30 mls/hr IV . Q24H [facility] Rx#:[id number] Intake, IV Titration 100 Amount Magnesium Sulfate-D5w Pmx 100 1 gm In Dextrose/Water 1 100ml.bag @ 100 mls/hr IVPB Q1H [facility] Rx#: [id number] Oral 1200 Output: Chest Tube Drainage 90 10 Chest Tube Left Lateral 90 10 Chest Chest Tube Left Mid- 0 Axillary Chest Chest Tube Right Mid- 0 Axillary Chest Urine 1225 1125 65 Stool 400 100 Other: Voiding Method Indwelling Catheter Indwelling Catheter # Bowel Movements 100 - Exam Physical Exam: Revealed a 58-year-old female in no distress. Head: Atraumatic normocephalic. HEENT:: [No neck masses.] [No thyromegaly.] [No JVD.] Left subclavian central line is noted. Chest: [ Diminished breath sounds over right lower base posteriorly, and some minimal crackles over left lower base, no rhonchi no wheezing Cardiac Exam: [Normal S1 and S2, no S3 gallop, no murmur.] Abdomen: [Soft, nontender, no megaly, no rebound, no guarding, normal bowel sounds.] Extremities: [No clubbing, no edema, no cyanosis.] Neurological Exam: [No focal neurologic deficit. Extremities no clubbing edema or cyanosis. Lymphatics: No lymphadenopathy.] - Labs CBC & Chem 7: 11/06/18 05:20 11/06/18 05:20 Labs: Abnormal Lab Results - Last 24 Hours (Table) 11/05/18 11/05/18 11/05/18 Range/Units 11:54 17:11 21:04 WBC (3.8-10.6) k/uL RBC (3.80-5.40) m/uL Hgb (11.4-16.0) gm/dL Hct (34.0-46.0) % RDW (11.5-15.5) % Sodium (137-145) mmol/L Carbon Dioxide (22-30) mmol/L Creatinine (0.52-1.04) mg/dL Glucose (74-99) mg/dL POC Glucose (mg/dL) 193 H 126 H 170 H (75-99) mg/dL Calcium (8.4-10.2) mg/dL 11/06/18 11/06/18 Range/Units 05:20 05:20 WBC 12.9 H (3.8-10.6) k/uL RBC 2.44 L (3.80-5.40) m/uL Hgb 7.5 L (11.4-16.0) gm/dL Hct 22.2 L (34.0-46.0) % RDW 17.5 H (11.5-15.5) % Sodium 134 L (137-145) mmol/L Carbon Dioxide 36 H (22-30) mmol/L Creatinine 0.47 L (0.52-1.04) mg/dL Glucose 112 H (74-99) mg/dL POC Glucose (mg/dL) (75-99) mg/dL Calcium 8.3 L (8.4-10.2) mg/dL Assessment and Plan Plan: #1 Acute hypoxic respiratory failure secondary to acute exacerbation of severe oxygen dependent chronic obstructive pulmonary disease, complicated by bilateral pneumothorax. Status post 3 chest tube placements to on the left and one on the right. She currently has 2 chest tubes on the left, and one on the right #2 Brief cardiac arrest secondary to above responded to epinephrine. #3 Severe advanced chronic obstructive pulmonary disease and bullous emphysema with underlying FEV1 value 36% of predicted. Both oxygen and steroid dependent. #4 History of prolonged respiratory failure requiring intubation mechanical ventilation with subsequent tracheostomy and PEG tube placements and [facility]. Subsequently decannulated. #5 Previous history of right-sided pneumothorax 2. #6 Chronic left upper lobe inflammatory opacity. #7 Hyperlipidemia. #8 Hypothyroidism. #9 Chronic normocystic anemia. #10 Fibromyalgia. #11 History of anxiety/depression with previous discontinuation of her prescribed medications. #12 successful extubation on 10/30/2018, patient seems to have tolerated the extubation well, however she still has a long way to go. Considering her severe emphysema and her chest tubes, and the ongoing leak in the left sided chest tube, patient will require to remain in the ICU. Patient is being considered for possible volume reduction by thoracic surgery on the case. Plan: Continue the oral steroids, nebulized bronchodilators, continue encouraging deep breathing and coughing, today's chest x-ray has been reviewed with Dr. Banks, shows some bibasilar atelectasis, and small pleural effusions, appreciable pneumothorax, anticipate removal of the chest tubes today. No air leak. No fever or chills. Vital signs are stable, encourage relation, increase activity as tolerated. We'll continue to follow. Critical care is over 30 minutes I performed a history & physical examination of the patient and discussed their management with my nurse practitioner, Carmella Jimenez. I reviewed the nurse practitioner's note and agree with the documented findings and plan of care. Lung sounds are positive for clear. The findings and the impression was discussed with the patient. I attest to the documentation by the nurse practitioner. Time with Patient: Greater than 30
[2018-11-06 10:20] VITALS: BMI 23.3
--- NOTE | 2018-11-06 11:00 | XR ---
EXAMINATION TYPE: XR chest 1V portable DATE OF EXAM: 11/06/2018 Comparison: Earlier today Clinical History: 58-year-old female chest tubes on waterseal, pneumothorax Findings: Bilateral chest tubes remain, on the left and one on the right. One of the left-sided chest tubes is again noted to be excessively retracted. The tip is now noted to be at the pleural margin and the keya ehole is in the subcutaneous soft tissues. Trace biapical pneumothoraces are now demonstrated. Left subclavian CVC tip in the lower SVC. Heart normal size. Left upper lobe nodularity redemonstrate d. Some fracture deformities of the posterolateral right side of ribs. Small pleural effusions persis t. Possible additional nodularity peripheral right base. Upper lung lucencies and hyperinflation. Impression: 1. Trace bilateral pneumothoraces now demonstrated. 2. Chest tubes remain in place. One of the left-sided chest tubes now shows more retraction with the tip now at the pleural margin and the sidehole outside of the thoracic cavity 3. COPD with continued small effusions. 4. Left upper lobe nodule and suspected additional lateral right basilar nodule.
[2018-11-06] MEDS: NYSTATIN 100,000 UNIT/ML SUSP 500,000 UNIT/5 ML CUP PO SCH ×4 (12:12→22:00)
[2018-11-06 12:29] LABS: Glucose,Whole Blood 136 mg/dL (75-99)
--- NOTE | 2018-11-06 12:40 | P.PN ---
Subjective Progress Note Date: 11/06/18 This is a 58-year-old female who follows with Dr. James as her primary care physician. She has a history of hyperlipidemia, hypothyroidism, anemia, fibromyalgia, anxiety/depression, COPD. She presented to the emergency department with dyspnea. Patient was at home when she experienced rest for distress and called EMS. In route to the hospital she was put on a BiPAP due to minimal responsiveness. Upon arrival to the emergency department her initial vital signs were tachycardic with no measurable pulse oximetry and she was hypotensive. Patient was positive for JVD, 1 view chest was obtained for a positive pneumothorax 50% on the left and a possible pneumothorax on the right. A chest tube was placed on the left and patient had failure to respond to treatment. At which CPR was initiated by ACLS protocol for approximately 1 minute. A central line was placed in the left subclavian vein during the code. Patient was intubated. An repeat chest x-ray showed a pneumothorax on the right and a right-sided 24-Surinamese chest tube was placed. Patient's vital signs improved and she was transported to ICU for continuation of care. Patient presents intubated at this time. She is awake and able to answer questions appropriately. Her current vent setting assist control of 16, tidal volume 350 , FiO2 at 35% and a PEEP of 5. Her morning blood gases reveal a pO2 of 85 pCO2 of 41 pH 7.38. H&H is currently sedated with 30 mics per KG per minute of debridement and, fentanyl drip at 1 MCG per KG per hour. Patient is able to follow commands she is able to move all 4 extremities. Her white count is 7.6, hemoglobin of 10, creatinine 0.6. 10/28: Patient continues to be sedated and intubated. Chest x-ray this morning showed significant progression of left-sided pneumothorax estimated at 50%. Left lower lobe pleural catheter appears unchanged in position. It increased subcutaneous air identified. Subsequently the patient underwent a another chest tube insertion on the left side to help relieve the pneumothorax. Repeat checks x-ray showed a persistent left apical pneumothorax estimated at 15-20%. A new left-sided chest tube place. Patient is receiving tube feedings through NG tube at this time. She continues to be on propofol at 65 mics per KG per minute and fentanyl drip at 1 nury per KG per hour. Patient also is getting Dilaudid and [place] as needed for pain. Her brought in opium to help with abdominal discomfort. Vent settings are unchanged the vent setting assist control 16, tidal volume of 350, FiO2 at 35%, and a PEEP of 5. Patient's urinary output is 50-70 mL per hour. Discussed findings with at the bedside in the plan to continue with sedation and intubation to rest the lungs and we will reassess tomorrow for possible weaning. states that this happened a few months ago where she was on prolonged intubation due to her lungs not recovering. 10/29: Patient continues to be sedated and intubated. Chest x-ray does show improvement to bilateral pneumothorax and [address]. Patient has been tachycardic overnight with a rate in the 130s. Patient grimaces in pain and withdraws. Patient continue to see tube feedings through NG tube. She continues to be on propofol and fentanyl for sedation. Patient was on Nimbex overnight however that has been DC'd. Vent settings are unchanged with the vent assist control 16, tidal volume 350, FiO2 at 35%, and a PEEP of 5. Patient 's urinary output continues to be 50-70 ML's per hour. Discussed case with pulmonology and consult for trach and PEG tube is in place. Pulmonology does not feel the patient will be successful in weaning. 10/30/18: Patient is sitting up in bed extubated. Patient was successfully weaned this morning. She is alert and orientated 3 and able to answer questions appropriately. Patient is complaining of pain to the chest due to the 3 chest tubes that are in place. Patient does have a history of Crohn's and discussed the medication she normally takes for them including Humira which we will hold at this time. Patient continues to be on sentinel drip for pain she also is receiving Dilaudid as needed for breakthrough pain. CBC 11.3, hemoglobin 8.7, potassium 4.7 BUN 28 creatinine 0.5. 10/31: Patient remains in the intensive care unit. She was successfully extubated yesterday and is currently pulse ox is 96% on 4 L nasal cannula. White count is 13.1, hemoglobin 9.4, CO2 is 32, electrolytes within normal limits, creatinine 0.54. Sputum cultures positive for Tish albicans. Urine culture finalized with no growth and blood culture showing no growth after 96 hours. Repeat chest x-ray shows 2 chest tubes on the left and one on the right. No appreciable pneumothorax. Relative upper lung lucency suggesting underlying emphysema. Continue small pleural effusions with adjacent atelectasis or consolidations. Cardiothoracic surgery signing off the case is no plan is for trach and PEG placement. Patient remains with 2 left-sided chest tubes in 1 right-sided chest tube. Pulmonary is planning to maintain chest tubes. Solu-Medrol transitioned to prednisone. color television console monitor is a sinus tachycardia. Ribera catheter is in place draining adequate amount of urine. Ileostomy with dark brown stool. Patient has been seen by GI with recommendations to continue Humira every 2 weeks and can be restarted after discharge the patient had verbalized that she did not want to continue on Humira. Patient is to follow-up with Dr. Verma in the office as scheduled. Patient currently has [facility] home care in place. PT to start working with patient today. [facility] Home medications will be reviewed. 11/01: Patient remains in the intensive care unit and breathing continues to improve slowly. Pulse ox is 96% on 3 L nasal cannula, heart rates running in the 90s. White count is 13.1, hemoglobin 9.6, creatinine 0.54. Electrolytes within normal limits. Patient is requesting using her home nicotine gum which will be ordered. Sputum culture showing Tish. 11/02: Patient remains in the intensive care unit. Repeat chest x-ray shows bilateral chest tubes remain unchanged. No evidence of sizable pneumothorax within either lung at this time. CAT scan of the chest reveals bilateral pneumothorax disease. Chest tubes are present. Consider reposition a right- sided chest tube. Bilateral apical masses left side is increasing in size. She does have bilateral chest tubes and there is plan for possibly removing the right side in the next couple days. There is a considerable leak on one of the left sided chest tubes in cardiothoracic surgery has been reconsulted. Patient is working with physical therapy and occupational therapy at the bedside. 11/03: Patient remains in the intensive care unit. She has 2 left-sided chest tubes in 1 right-sided chest tube in place. She states she is having cough with sputum production. She is using her incentive spirometry. Overall, she states her breathing is improving slowly. She does complain of chest pain more so on the left side. She does state that yesterday she started having increased stool from her ostomy and feels that she is having a flareup of her Crohn's. She does have opium available. We will start her back on IV fluids to avoid dehydration, monitor electrolytes. Heart rate remains elevated for which Lopressor will be increased to 50 mg twice daily which is her home dose. Verapamil is on hold due to hypotension. 11/04: Patient states that she had a lot of diarrhea yesterday but this seems to be decreasing this morning. She is feeling better from yesterday. She has had good urine output. She states this morning there was bleeding from one of her chest tubes in the bed which has been cleaned up in everything has been changed. Heart rate is remaining elevated. Lopressor is currently at 50 g twice daily. Cardiothoracic surgery does not plan for any surgical intervention. Patient encouraged to use incentive spirometry and increase activity area 11/05: Cardiothoracic surgeon discussed with patient transferred to [facility] for blebectomy and look at lung transplant evaluation. Awaiting clearance from pulmonary medicine and we'll make arrangements to transfer. Patient states her breathing is better today. She states she has been up since 5 AM and walked in the hallway twice and now she's tired. There is less leak on the left chest tube. Magnesium is been replaced. Heart rate is still running in the 120s. She states diarrhea is slowing and a thicker consistency. 11/06: Patient remains with 2 left-sided chest tubes in 1 right-sided chest tube. Patient is followed by pulmonary medicine and cardiothoracic surgery. Respiratory status is stable. Pulse ox is 94% on 1 L nasal cannula. She is using incentive spirometry. She has been afebrile, white count 12.9, hemoglobin 7.5. Creatinine is 0.47, sodium 134 potassium 4.4, chloride 98 and CO2 36. Blood sugars are running between 99 and 170. Review Of Systems: Constitutional: Pain to the chest due to chest tube No fever, no chills, no night sweats. No weight change. Reports weakness, fatigue or lethargy. EENT: No headache. No blurred vision or double vision, no loss of vision. No loss of Hearing, no ringing in the ears, no dizziness. No nasal drainage or congestion. No epistaxis. No sore throat. Lungs: No shortness of breath, cough, no sputum production. No wheezing. Cardiovascular: No chest pain, no lower extremity edema. No palpitations. No paroxysmal nocturnal dyspnea. No orthopnea. No lightheadedness or dizziness. No syncopal episodes. Abdominal: no abdominal discomfort. Reports nausea, denies vomiting. Reports diarrhea. No constipation. No bloody or tarry stools. Reports loss of appetite. Genitourinary: No dysuria, increased frequency, urgency. No urinary retention. Musculoskeletal: No myalgias. No muscle weakness, no gait dysfunction, no frequent falls. No back pain. No neck pain. Integumentary: No wounds, no lesions. No rash or pruritus. No unusual bruising. No change in hair or nails. Neurologic: No aphasia. No facial droop. No change in mentation. No head injury. No headache. No paralysis. Psychiatric: No depression. No anxiety. No mood swings. Endocrine: No abnormal blood sugars. Objective - Vital Signs Vital signs: Vital Signs Temp 97.5 F L 11/06/18 08:00 Pulse 114 H 11/06/18 09:00 Resp 25 H 11/06/18 09:00 BP 111/82 11/06/18 08:00 Pulse Ox 96 11/06/18 09:00 Intake & Output 11/05/18 11/06/18 11/06/18 18:59 06:59 18:59 Intake Total 1920 360 520 Output Total 1715 1235 190 Balance 205 -875 330 Weight 57.8 kg 57.8 kg Intake: IV 620 360 60 Magnesium Sulfate-D5w Pmx 100 1 gm In Dextrose/Water 1 100ml.bag @ 100 mls/hr IVPB Q1H MEENU Rx#: [id number] Sodium Chloride 0.9% 1, 520 360 60 000 ml @ 30 mls/hr IV . Q24H MEENU Rx#:[id number] Intake, IV Titration 100 100 Amount Magnesium Sulfate-D5w Pmx 100 1 gm In Dextrose/Water 1 100ml.bag @ 100 mls/hr IVPB Q1H MEENU Rx#: [id number] Magnesium Sulfate-D5w Pmx 100 1 gm In Dextrose/Water 1 100ml.bag @ 100 mls/hr IVPB Q1H MEENU Rx#: [id number] Oral 1200 360 Output: Chest Tube Drainage 90 10 Chest Tube Left Lateral 90 10 Chest Chest Tube Left Mid- 0 Axillary Chest Chest Tube Right Mid- 0 Axillary Chest Urine 1225 1125 190 Stool 400 100 Other: Voiding Method Indwelling Catheter Indwelling Catheter Indwelling Catheter # Bowel Movements 100 - Exam General appearance: Present: average body habitus, cooperative, no acute distress. Patient is resting in bed and appears to be comfortable - EENT Eyes: Present: anicteric sclerae, EOMI, PERRLA ENT: Present: hearing grossly normal, NA/AT - Neck Neck: Present: normal ROM. Absent: lymphadenopathy - Respiratory Respiratory: bilateral: diminished, wheezing, no accessory muscle usage negative : dullness, rales, rhonchi, prolonged expiration, prolonged inspiration, other 2 left-sided chest tubes and 1 right-sided chest tube - Cardiovascular Rhythm: regular Heart sounds: normal: S1, S2 Abnormal Heart Sounds: Absent: systolic murmur, diastolic murmur, rub, S3 Gallop , S4 Gallop, click, other - Gastrointestinal General gastrointestinal: Present: normal bowel sounds, soft. Mild generalized tenderness, ileostomy in place Ribera with clear alexis urine return. - Integumentary Integumentary: Present: pale - Neurologic Neurologic: Present: CNII-XII intact - Musculoskeletal Musculoskeletal: Present: generalized weakness, strength equal bilaterally - Psychiatric Psychiatric: Present: A&O x's 3, appropriate affect, intact judgment & insight - Labs CBC & Chem 7: 11/06/18 05:20 11/06/18 05:20 Labs: Abnormal Lab Results - Last 24 Hours (Table) 11/05/18 11/05/18 11/05/18 Range/Units 11:54 17:11 21:04 WBC (3.8-10.6) k/uL RBC (3.80-5.40) m/uL Hgb (11.4-16.0) gm/dL Hct (34.0-46.0) % RDW (11.5-15.5) % Sodium (137-145) mmol/L Carbon Dioxide (22-30) mmol/L Creatinine (0.52-1.04) mg/dL Glucose (74-99) mg/dL POC Glucose (mg/dL) 193 H 126 H 170 H (75-99) mg/dL Calcium (8.4-10.2) mg/dL 01/08/19 01/08/19 Range/Units 05:20 05:20 WBC 12.9 H (3.8-10.6) k/uL RBC 2.44 L (3.80-5.40) m/uL Hgb 7.5 L (11.4-16.0) gm/dL Hct 22.2 L (34.0-46.0) % RDW 17.5 H (11.5-15.5) % Sodium 134 L (137-145) mmol/L Carbon Dioxide 36 H (22-30) mmol/L Creatinine 0.47 L (0.52-1.04) mg/dL Glucose 112 H (74-99) mg/dL POC Glucose (mg/dL) (75-99) mg/dL Calcium 8.3 L (8.4-10.2) mg/dL Assessment and Plan Plan: #1 Acute hypoxic respiratory failure secondary to acute exacerbation of severe oxygen dependent chronic obstructive pulmonary disease, complicated by bilateral pneumothorax. Status post bilateral chest tube placements. Patient has been successfully extubated. Continue Dilaudid 1 mg every 3 hours as needed for break through pain and [place] as needed. Continue DuoNeb treatments every 4 hours scheduled and as needed, Pulmicort 1 mg twice daily, Perforomist twice daily, prednisone. Pulmonary consult appreciated Cardiothoracic surgery has been reconsulted there is no plan for surgical intervention. Patient may be transferred to [facility] for further surgical intervention and also lung transplant evaluation. #2 Brief cardiac arrest secondary to above responded to epinephrine. #3 Severe advanced chronic obstructive pulmonary disease and bullous emphysema with underlying FEV1 value 36% of predicted. Both oxygen and steroid dependent. Continue Pulmicort, continue prednisone. #4 History of prolonged respiratory failure requiring intubation mechanical ventilation with subsequent tracheostomy and PEG tube placements and [facility]. #5 bilateral pneumothorax related to severe advanced stages of COPD and bullous emphysema Chest tubes in place. Repeat chest x-ray #6 Previous history of right-sided pneumothorax 2. #7 Chronic left upper lobe inflammatory opacity. #8 Hyperlipidemia. #9 Hypertension. Continue to monitor blood pressure #10 Chronic normocystic anemia, anemia of chronic disease. Monitor CBC #11 Fibromyalgia. Continue Dilaudid or [place] as needed #12 Generalized anxiety disorder and recurrent depression. #13 History of Crohn's with possible exacerbation. Consult gastroenterology. Continue opium. IV fluids 0.9 normal saline at 100 mL per hour. #14 GI prophylactics Protonix 40 mg po daily #15 DVT prophylaxis heparin 5000 units subcu every 8 hours Discharge plan: Most likely/subacute rehab, 2 to be determined Impression and plan of care have been directed as dictated by the signing physician. Gaby Rothman nurse practitioner acting as scribe for signing physician.
--- NOTE | 2018-11-06 12:41 | P.PN ---
Subjective Progress Note Date: 11/06/18 Principal diagnosis: Severe end-stage COPD with home oxygen use and previous FEV1 completed which showed her predicted value of 36%, history of previous tracheostomy and PEG tube placement in June 2018, home oxygen use, fibromyalgia, GERD, history of GI bleed, hypertension, hyperlipidemia, history of pneumonia, osteoarthritis , history of multiple pneumothorax with Thoravent placement 2, history of Crohn 's disease with multiple bowel surgeries and previous tobacco dependence quit smoking 2 years ago. The patient is currently sitting up to the bedside chair. She is in no acute distress. She denies any complaints of pain or shortness of breath at this time. She is currently on 2 L nasal cannula with oxygen saturations 95% and achieving 500 to 750 mL on her incentive spirometry with encouragement. She remains with 2 left pleural chest tubes and one right pleural chest tube which are currently on waterseal. Her superior left pleural chest tube is showing an intermittent air leak. The patient reports she has been a bleeding in the intensive care unit in [facility] with minimal assistance. Her chest x-ray this morning shows no appreciable pneumothorax. Objective - Vital Signs Vital signs: Vital Signs Temp 98.2 F 11/06/18 04:00 Pulse 110 H 11/06/18 08:44 Resp 28 H 11/06/18 07:00 BP 97/67 11/06/18 07:00 Pulse Ox 93 L 11/06/18 07:00 Intake & Output 11/05/18 11/06/18 11/06/18 18:59 06:59 18:59 Intake Total 1920 360 30 Output Total 1715 1235 65 Balance 205 -875 -35 Weight 57.8 kg Intake: IV 620 360 30 Magnesium Sulfate-D5w Pmx 100 1 gm In Dextrose/Water 1 100ml.bag @ 100 mls/hr IVPB Q1H MEENU Rx#: [id number] Sodium Chloride 0.9% 1, 520 360 30 000 ml @ 30 mls/hr IV . Q24H MEENU Rx#:[id number] Intake, IV Titration 100 Amount Magnesium Sulfate-D5w Pmx 100 1 gm In Dextrose/Water 1 100ml.bag @ 100 mls/hr IVPB Q1H MEENU Rx#: [id number] Oral 1200 Output: Chest Tube Drainage 90 10 Chest Tube Left Lateral 90 10 Chest Chest Tube Left Mid- 0 Axillary Chest Chest Tube Right Mid- 0 Axillary Chest Urine 1225 1125 65 Stool 400 100 Other: Voiding Method Indwelling Catheter Indwelling Catheter # Bowel Movements 100 - Constitutional General appearance: Present: cooperative, no acute distress - Respiratory Details: Lung sounds essentially diminished throughout. Respirations are symmetrical and nonlabored. Oxygen saturation are 95% on 2 L nasal cannula. Achieving 500- 750 mL on her incentive spirometry. Left and right pleural chest tubes remain in place to water seal. Draining thin serosanguineous drainage. Intermittent air leak to her left superior chest tube. - Cardiovascular Details: Regular rhythm with a tachycardic rate. S1 and S2 present, negative for S3, gallop or murmur. Bedside telemetry showing sinus tachycardia heart rate 112. No edema present. Sequential compression devices in placed to her bilateral lower extremities. - Gastrointestinal Gastrointestinal Comment(s): Abdomen is soft, nontender and nondistended. Active bowel sounds to all 4 abdominal quadrants. Ileostomy to right lower quadrant abdomen with light brown loose stool. No guarding or rigidity. No organomegaly. Tolerating oral intake. - Genitourinary Genitourinary Comment(s): Ribera catheter for accurate I&O. Draining clear yellow urine. 700 mL output in the last 8 hours. - Integumentary Integumentary Comment(s): Skin is warm and dry. No clubbing or cyanosis present. Erythremic areas to her mid back clean, and dry. No drainage present. - Neurologic Neurologic: Present: CNII-XII intact - Musculoskeletal Musculoskeletal: Present: gait normal, generalized weakness, strength equal bilaterally - Psychiatric Psychiatric: Present: A&O x's 3, appropriate affect, intact judgment & insight - Allied health notes Allied health notes reviewed: nursing - Labs CBC & Chem 7: 11/06/18 05:20 11/06/18 05:20 Labs: Abnormal Lab Results - Last 24 Hours (Table) 11/05/18 11/05/18 11/05/18 Range/Units 11:54 17:11 21:04 WBC (3.8-10.6) k/uL RBC (3.80-5.40) m/uL Hgb (11.4-16.0) gm/dL Hct (34.0-46.0) % RDW (11.5-15.5) % Sodium (137-145) mmol/L Carbon Dioxide (22-30) mmol/L Creatinine (0.52-1.04) mg/dL Glucose (74-99) mg/dL POC Glucose (mg/dL) 193 H 126 H 170 H (75-99) mg/dL Calcium (8.4-10.2) mg/dL 11/06/18 11/06/18 Range/Units 05:20 05:20 WBC 12.9 H (3.8-10.6) k/uL RBC 2.44 L (3.80-5.40) m/uL Hgb 7.5 L (11.4-16.0) gm/dL Hct 22.2 L (34.0-46.0) % RDW 17.5 H (11.5-15.5) % Sodium 134 L (137-145) mmol/L Carbon Dioxide 36 H (22-30) mmol/L Creatinine 0.47 L (0.52-1.04) mg/dL Glucose 112 H (74-99) mg/dL POC Glucose (mg/dL) (75-99) mg/dL Calcium 8.3 L (8.4-10.2) mg/dL - Imaging and Cardiology Chest x-ray: report reviewed, image reviewed Assessment and Plan (1) Acute exacerbation of chronic obstructive airways disease Current Visit: Yes Status: Acute Code(s): J44.1 - CHRONIC OBSTRUCTIVE PULMONARY DISEASE W (ACUTE) EXACERBATION SNOMED Code(s): 474160396 (2) Bilateral pneumothorax Current Visit: Yes Status: Acute Code(s): J93.9 - PNEUMOTHORAX, UNSPECIFIED SNOMED Code(s): 54144947 (3) Cardiopulmonary arrest with successful resuscitation Current Visit: Yes Status: Acute Code(s): I46.9 - CARDIAC ARREST, CAUSE UNSPECIFIED SNOMED Code(s): 786676855 (4) Failure to wean from mechanical ventilation Current Visit: Yes Status: Acute Code(s): Z99.11 - DEPENDENCE ON RESPIRATOR [VENTILATOR] STATUS SNOMED Code(s): 386262157 Plan: 1. The patient may be transferred to [facility] for possible volume reduction surgery and evaluation for lung transplant. 2. Continue medical management per primary care service, bronchodilator and steroid management per pulmonology. 3. GI/DVT prophylaxis. 4. Continue to encourage use of her incentive spirometry every hour while awake. 5. Increase activity as tolerated. Out of bed for all meals. 6. Discontinue right and left pleural chest tubes. 7. Discontinue Ribera catheter. 8. More recommendations to follow based on patient's clinical course. Time with Patient: Greater than 30
[2018-11-06 20:58] LABS: Glucose,Whole Blood 162 mg/dL (75-99)
[2018-11-06] MEDS: MELATONIN 5 MG TABLET PO SCH (21:08)
[2018-11-06] MEDS: LATANOPROST 0.005% OPHTH DROPS 2.5 ML BTL BOTH EYES SCH (21:08)
[2018-11-06] MEDS: SODIUM CHLORIDE 0.9% 1,000 ML IV SCH (21:12)
[2018-11-07] MEDS: HYDROmorphone 0.5 MG/0.5 ML SYRINGE IVP PRN ×6 (05:02→21:04)
[2018-11-07] MEDS: IPRATROPIUM-ALBUTEROL 3 ML NEB INHALATION SCH ×6 (05:19→23:15)
[2018-11-07 05:27] LABS: Anion Gap 1 mmol/L; Blood Urea Nitrogen 19 mg/dL (7-17); Calcium 8.8 mg/dL (8.4-10.2); Carbon Dioxide 36 mmol/L (22-30); Chloride 98 mmol/L (98-107); Glucose 107 mg/dL (74-99); Magnesium 1.6 mg/dL (1.6-2.3); Phosphorus 3.3 mg/dL (2.5-4.5); Potassium 4.4 mmol/L (3.5-5.1); Sodium 135 mmol/L (137-145)
[2018-11-07 05:33] LABS: Anisocytosis Slight; HCT 24.1 % (34.0-46.0); HGB 7.7 gm/dL (11.4-16.0); MCH 29.5 pg (25.0-35.0); MCHC 31.9 g/dL (31.0-37.0); MCV 92.2 fL (80.0-100.0); Platelet Count 366 k/uL (150-450); RBC 2.62 m/uL (3.80-5.40); RDW 17.7 % (11.5-15.5); WBC 13.6 k/uL (3.8-10.6)
[2018-11-07] MEDS ORDERED: Magnesium Replacement Protocol 1 EACH MISC MISCELLANE PRN (06:43)
[2018-11-07] MEDS: INSULIN ASPART 100 UNIT/ML 1 ML 10 ML VIAL SQ SCH ×4 (07:07→20:56)
[2018-11-07] MEDS: PANTOPRAZOLE 40 MG TABLET PO SCH (07:08)
[2018-11-07] MEDS: MAGNESIUM SULFATE-D5W PMX 1 GM in DEXTROSE/WATER 1 100ML.BAG IVPB SCH ×2 (07:08→08:23)
[2018-11-07 07:13] LABS: Glucose,Whole Blood 138 mg/dL (75-99)
--- NOTE | 2018-11-07 07:53 | XR ---
EXAMINATION TYPE: XR chest 1V portable DATE OF EXAM: 11/07/2018 COMPARISON: 11/06/2018 HISTORY: Thoracostomy tube removal. Follow-up exam. TECHNIQUE: Single frontal view of the chest is obtained. FINDINGS: There is been interval removal of the bilateral thoracostomy tubes. The previously seen sm all left apical pneumothorax is not well visualized on today's examination. Only a minimal right late ral less than 5% pneumothorax remains. There are trace bilateral pleural effusions blunting the costo phrenic angles with right infrahilar new opacity and more rounded opacity in the right lateral lower lung. Cardiomediastinal silhouette is within normal limits. Bullous emphysematous changes are greater on the right than left. Old healed right rib fractures are seen. Left-sided subclavian central venou s catheter terminates in the cavoatrial junction. IMPRESSION: 1. Trace right residual pneumothorax status post bilateral thoracostomy tube removal. The previously seen trace left pneumothorax on the exam of 11/06/2018 is not visualized on today's exam. 2. New right infrahilar opacity appears suspicious for pneumonia. Follow-up to resolution is recommen ded to exclude underlying mass as there is additional right lower lung more rounded density. 3. Bullous emphysematous changes and trace pleural effusions are stable.
[2018-11-07] MEDS: BUDESONIDE 1 MG/2 ML NEBU INHALATION SCH ×2 (08:19→19:38)
[2018-11-07] MEDS: FORMOTEROL FUMARATE 20 MCG/2 ML NEBU INHALATION SCH ×2 (08:19→19:38)
[2018-11-07] MEDS: ALPRAZolam 0.25 MG TAB PO PRN ×2 (08:24→21:04)
[2018-11-07] MEDS: GABAPENTIN 300 MG CAP PO SCH ×3 (08:25→21:04)
[2018-11-07] MEDS: METOPROLOL TARTRATE 50 MG TAB PO SCH ×2 (08:25→21:03)
[2018-11-07] MEDS: HEPARIN SODIUM,PORCINE 5,000 UNIT/ML 1 ML VIAL SQ SCH ×3 (08:25→23:56)
[2018-11-07] MEDS: predniSONE 10 MG TAB PO SCH (08:25)
[2018-11-07] MEDS: DULoxetine HCL 30 MG CAPSULE.DR PO SCH ×2 (08:26→21:03)
[2018-11-07] MEDS: COLCHICINE 0.6 MG EACH PO SCH (08:26)
[2018-11-07] MEDS: NYSTATIN 100,000 UNIT/ML SUSP 500,000 UNIT/5 ML CUP PO SCH ×4 (08:26→21:04)
[2018-11-07] MEDS: DICYCLOMINE 10 MG CAP PO SCH ×3 (08:26→21:04)
[2018-11-07] MEDS: busPIRone HCl 10 MG TAB PO SCH ×3 (08:26→21:04)
--- NOTE | 2018-11-07 10:54 | P.PN ---
Subjective Progress Note Date: 11/07/18 Principal diagnosis: Acute hypoxic respiratory failure secondary to COPD and bilateral pneumothoraces This is a 58-year-old female patient who follows with Dr. James as her primary care physician. She has a history of hyperlipidemia, hypothyroidism, anemia, fibromyalgia, anxiety/depression. Chest has a history of severe oxygen- dependent bullous emphysema/COPD with FEV1 value of 36% of predicted and a chronic left upper lobe inflammatory opacity that was nonmalignant. She has a history of prolonged respiratory failure requiring mechanical ventilation and was subsequently trached and [facility]. She had since been decannulated. She's had multiple admissions for COPD exacerbations most recently discharged from here on 10/16/2018. She was brought in by EMS to the emergency room yesterday with severe respiratory distress requiring initially BiPAP support. She was found to have bilateral pneumothorax and chest tubes were placed as well as a left thoravent. She had a brief cardiac arrest requiring epinephrine. She was subsequently intubated and placed on mechanical ventilator and transferred here to the intensive care unit. She is seen today in consultation with current vent settings assist- control of 16, tidal volume 350, FiO2 of 35% and a PEEP of 5. Morning blood gases reveal a P O2 of 85, pCO2 41, pH 7.38. Her measured airway resistance is currently 8.8. She is sedated on to prevent at 30 mcg/kg/m., Fentanyl drip at 1 mcg/kg per hour, 1.9 normal saline at 75 ML's per hour. She does follow simple commands. She is moving all fours. Cultures are pending. White count 7.6. Hemoglobin 10.0. Creatinine 0.69. She's been initiated and DuoNeb inhalations. Patient was reevaluated today on 10/29/2018, remains in the ICU on mechanical ventilation. Patient has been on same ventilator settings, tidal volume of 350 assist-control rate of 16 FiO2 of 35% and PEEP of 5. Patient remains on fentanyl drip, she is also on propofol drip, and both are basically maximized. Last night Dr. Meza placed the patient on Nimbex drip. However I have discontinued the Nimbex drip today, and I will try to control her agitation with fentanyl and propofol only. Patient continues to have left-sided chest tubes, and 1 right sided chest tube, all of them are showing a bit of a leak. Her ABG showed a pO2 of 120 pCO2 of 40 0 pH of 7.44. Basic metabolic profile is normal, WBC count is 10.9 hemoglobin is 9.2. Chest x-ray did show improvement in aeration of the right lung base with persistent left basilar opacity may represent mostly atelectasis or possibly pneumonia. No sizable pneumothorax is noted on both sides. Patient remains on multiple bronchodilators, and on Solu-Medrol. Today I discussed with the nurses and with the admitting physician that it would be best to consider tracheostomy and PEG tube placement since the patient is going to be almost extremely difficult to wean successfully. She had a similar episode in the past, and she did require tracheostomy and placement [facility]. Patient was reevaluated today on 10/30/2018, remains on mechanical ventilation, still requiring a significant dose of propofol and fentanyl. I have attempted to cut down the fentanyl to 25 mg per hour, and I have cut down the propofol gradually until discontinued. Her ventilator settings were noted to be assist- control rate of 16 FiO2 of 35% tidal volume of 350 and PEEP of 5. Her usual dose of propofol has been about 55 g and the dose of fentanyl was 100 g per hour. After cutting down on both and stopping her up a fall, I was able to give the patient a decent trial of pressure support of 10 and CPAP. Patient looked great and better than expected her chest x-ray was looking better today, her follow-up ABG post half hour at least on pressure support and CPAP looked great, pO2 was 79 pCO2 was 37 pH was 7.47, hence I proceeded to extubating the patient. I felt this is hour window otherwise the patient may require tracheostomy as noted previously. The rest of the labs and the chest x-ray were all reviewed. Electrolytes were normal CBC was relatively normal except for hemoglobin of 8.7. Patient was reevaluated today on 10/31/2018, patient is off mechanical ventilation , she was weaned and extubated successfully yesterday. Patient continues to have significant amount of pain medications on board, continues to be tachycardic, sinus tachycardia rate is in the 130 and 140 range. Continues to have chest tubes on both sides, one the left side and one on the left side. I have adjusted all her medications today, switched most them to oral medication, and change Solu-Medrol to prednisone, added Xanax to control her anxiety, discontinued fentanyl yesterday, and she is presently on IV medication for pain control. Her chest x-ray is showing some improvement, however the patient continues to have leaks in both tubes on both sides. She is on nasal cannula, saturating quite well, seems to be generally weak, and quite tachycardic, extremely anxious and agitated becomes very emotional when discussing her clinical condition. All labs were reviewed WBC count is 13.1 hemoglobin is 9.4 electrolytes and renal profile are normal. Patient was reevaluated today on 11/01/2018, remains in the intensive care unit, on nasal cannula, feeling much better today, breathing easier, seems to have less pain, less shortness of breath, but she continues to have significant air leak specially in one of the tubes on the left side, and minimal air leak on the right sided chest tube. Her tachycardia seems to be much better controlled , her heart rate is in the 90s, her O2 saturation is 96% on 3 L nasal cannula, and her blood pressure is 121/81 with a mean of 94. Labs and chest x-ray were reviewed, patient seems to be less anxious at this point, and all her meds including bronchodilators, steroids, antibiotics, were all addressed accordingly. Considering the significant air leak, and considering his severe COPD/emphysema with significant bullous disease, I have a feeling that the patient is going to have significant difficulty healing from her pneumothorax, and she may eventually require surgical intervention. That is yet to be decided in the next few days. Reevaluated today on 11/02/2018, patient remains in the intensive care unit, continues to have bilateral chest tubes, however the right-sided chest tube showed no leak today, and I have placed the tube on water seal, off wall suction. One of the left-sided chest tubes continues to have a significant amount of leak, hence I consulted thoracic surgery. Patient may eventually require surgical intervention. Overall the patient is doing better than expected, she has been tolerating the extubation well over the last few days. Chest x-ray was reviewed, labs were reviewed, medications were reviewed and the addressed. Discussed her condition also with a thoracic surgeon at bedside. Reevaluated today on 11/03/2018, remains in the intensive care unit, continues to have left-sided chest tube leak, right sided chest tube is off suction, chest x- ray showed no evidence of pneumothorax, CT of the chest showed significant bullous emphysema on both sides. Patient was seen by thoracic surgery on consultation, no plans for intervention at this point, the recommendation was to continue chest tubes on suction. Patient is comfortable, she is not in any form of distress. All her meds and labs were reviewed. Chest x-ray and CT of the chest was reviewed. Reevaluated today on 11/04/2018, basically the patient is about the same, the leak from the left sided chest tube seems to be much less today. And it is intermittent. No leak from the right sided chest tube. Chest x-ray is showing mostly some atelectasis of the right base. She was seen by thoracic surgery again today, and entertaining the possibility of volume reduction surgery, and eventually down the line consider pulmonary transplant. No immediate plans for surgery, patient will be given the option eventually whether she would like to have the surgery done here or in a tertiary care center. This will be decided upon hopefully in the next couple of days. In the meantime the patient is doing relatively well, resting, in no distress. WBC count is 11.7 hemoglobin is 7.5. Electrolytes and renal profile are normal. On 11/05/2018 patient seen again in follow-up in the intensive care unit, she sits up in the recliner, in no acute distress, likely on 1 L per nasal cannula pulse ox of 99%, afebrile, she remains tachycardic, with a heart rate in the 120s BPM, sinus mechanism. Current IV fluids is 0.9 normal saline at a rate of 100 ML per hour, 2 chest tubes on the left to wall suction, with serosanguineous outputs in the Pleur-evac, and one chest tube on the right to water seal. Lung sounds are clear to auscultation, no rhonchi, no wheezing. Today's chest x-ray has been reviewed with Dr. Domínguez, shows persistent small right pleural effusion and bibasilar infiltrate and/or atelectasis. Superior left chest tube has been retracted, and the site port is outside the pleural space. CT surgery is following, possibility of removal of one the chest tubes today. Labs have been reviewed, WBCs 11.9, hemoglobin is 7.1, sodium is 134, potassium is 4.2, chloride is 97, CO2 35, BUN is 12 and creatinine 0.51. Her pain is reasonably controlled, she is working on her incentive spirometer. Blood and urine cultures are negative, sputum culture only showed Tish albicans. Patient is on oral prednisone, and Pulmicort and Perforomist, and nebulized bronchodilators. On October 2018 patient seen again in follow-up in the intensive care unit, she sits up in the recliner, in no acute distress, currently on 2 L per nasal cannula, sats is 93%, patient is afebrile, hemodynamically stable, heart rate is better controlled, with intermittent periods of tachycardia. Lung sounds are diminished breath sounds over right lower base, a few limited crackles over left lower base, patient still has the 2 left-sided pleural chest tubes in place on the left and 1 right-sided pleural chest tube, with some serosanguineous output, all chest tubes are placed to waterseal, repeat chest x- rays pending. CT surgery is following. Today's lab work has been noted, the PVCs 12.9, hemoglobin is 7.5, sodium is 134, potassium is 4.4, chloride is 98 CO2 36, BUN 16 and creatinine 0.47. No worsening dyspnea, patient is working on her incentive spirometer, she does have a loose nonproductive congested cough , she has a valve at the bedside, and she using it. Today's chest x-ray has been reviewed with Dr. Domínguez, shows COPD with left upper lobe nodule, and possibly increasing nodularity at the right base, 2 chest tubes on the left and one chest tube on the right, no appreciable pneumothorax, the site for the left- sided chest tube is outside of the pleural space, small bilateral pleural effusions with adjacent atelectasis. Microbiology has been reviewed, sputum culture with Tish albicans only, no fever or chills, IV steroids have been transitioned to oral prednisone, patient remains on nebulized bronchodilators. On 11/07/2018 patient seen in follow-up in the intensive care unit, she is awake and alert, in no acute distress, denies any difficulty breathing, she is working on her incentive spirometry, able to achieve 750. All chest tubes have been discontinued per CT surgery, this morning's chest x-ray was reviewed with Dr. Meza, and showed trace right residual pneumothorax status post bilateral thoracostomy interval tube removal. New right infrahilar opacity, suspicious for pneumonia, bullous emphysematous changes and trace pleural effusions are stable. Afebrile, on 2 L per nasal cannula she is satting 96%, sinus tachycardia with a rate of 111 BPM. Sputum culture with Tish albicans only. Blood and urine cultures are negative lung sounds are diminished, no rhonchi or wheezes noted. IV fluids 0.9 normal saline at a rate of 30 ML per hour. These labs have been reviewed, WBC is 13.6, hemoglobin is 7.7, sodium is 135, CO2 is 36, BUN is 19 and creatinine 1.60. Objective - Vital Signs Vital signs: Vital Signs Temp 97.9 F 11/07/18 00:00 Pulse 111 H 11/07/18 09:00 Resp 14 11/07/18 09:00 BP 118/81 11/07/18 09:00 Pulse Ox 96 11/07/18 09:00 Intake & Output 11/06/18 11/07/18 11/07/18 18:59 06:59 18:59 Intake Total 1270 390 370 Output Total 1070 1125 Balance 200 -735 370 Weight 57.8 kg 55.6 kg 55.6 kg Intake: IV 330 390 30 Sodium Chloride 0.9% 1, 330 390 30 000 ml @ 30 mls/hr IV . Q24H [facility] Rx#:[id number] Intake, IV Titration 100 100 Amount Magnesium Sulfate-D5w Pmx 100 1 gm In Dextrose/Water 1 100ml.bag @ 100 mls/hr IVPB Q1H [facility] Rx#: [id number] Magnesium Sulfate-D5w Pmx 100 1 gm In Dextrose/Water 1 100ml.bag @ 100 mls/hr IVPB Q1H [facility] Rx#: [id number] Oral 840 240 Output: Urine 670 775 Stool 400 350 Other: Voiding Method Bedside Commode Bedside Commode Bedside Commode # Voids 1 1 - Exam Physical Exam: Revealed a 58-year-old female in no distress. Head: Atraumatic normocephalic. HEENT:: [No neck masses.] [No thyromegaly.] [No JVD.] Left subclavian central line is noted. Chest: [ Diminished breath sounds no rhonchi no wheezing. Interval removal of the 2 left-sided pleural chest tubes and at one right-sided pleural chest tube Cardiac Exam: [Normal S1 and S2, no S3 gallop, no murmur.] Abdomen: [Soft, nontender, no megaly, no rebound, no guarding, normal bowel sounds.] Extremities: [No clubbing, no edema, no cyanosis.] Neurological Exam: [No focal neurologic deficit. Extremities no clubbing edema or cyanosis. Lymphatics: No lymphadenopathy.] - Labs CBC & Chem 7: 11/07/18 05:00 11/07/18 05:00 Labs: Abnormal Lab Results - Last 24 Hours (Table) 11/06/18 11/06/18 11/07/18 Range/Units 12:17 20:46 05:00 WBC 13.6 H (3.8-10.6) k/uL RBC 2.62 L (3.80-5.40) m/uL Hgb 7.7 L (11.4-16.0) gm/dL Hct 24.1 L (34.0-46.0) % RDW 17.7 H (11.5-15.5) % Sodium (137-145) mmol/L Carbon Dioxide (22-30) mmol/L BUN (7-17) mg/dL Glucose (74-99) mg/dL POC Glucose (mg/dL) 136 H 162 H (75-99) mg/dL 11/07/18 11/07/18 Range/Units 05:00 07:01 WBC (3.8-10.6) k/uL RBC (3.80-5.40) m/uL Hgb (11.4-16.0) gm/dL Hct (34.0-46.0) % RDW (11.5-15.5) % Sodium 135 L (137-145) mmol/L Carbon Dioxide 36 H (22-30) mmol/L BUN 19 H (7-17) mg/dL Glucose 107 H (74-99) mg/dL POC Glucose (mg/dL) 138 H (75-99) mg/dL Assessment and Plan Plan: #1 Acute hypoxic respiratory failure secondary to acute exacerbation of severe oxygen dependent chronic obstructive pulmonary disease, complicated by bilateral pneumothorax. Status post 3 chest tube placements to on the left and one on the right. She currently has 2 chest tubes on the left, and one on the right #2 Brief cardiac arrest secondary to above responded to epinephrine. #3 Severe advanced chronic obstructive pulmonary disease and bullous emphysema with underlying FEV1 value 36% of predicted. Both oxygen and steroid dependent. #4 History of prolonged respiratory failure requiring intubation mechanical ventilation with subsequent tracheostomy and PEG tube placements and [facility]. Subsequently decannulated. #5 Previous history of right-sided pneumothorax 2. #6 Chronic left upper lobe inflammatory opacity. #7 Hyperlipidemia. #8 Hypothyroidism. #9 Chronic normocystic anemia. #10 Fibromyalgia. #11 History of anxiety/depression with previous discontinuation of her prescribed medications. #12 successful extubation on 10/30/2018, patient seems to have tolerated the extubation well, however she still has a long way to go. Considering her severe emphysema and her chest tubes, and the ongoing leak in the left sided chest tube, patient will require to remain in the ICU. Patient is being considered for possible volume reduction by thoracic surgery on the case. Plan: Continue oral steroids, Pulmicort Perforomist, DuoNeb, encourage deep breathing and coughing, chest tubes have been discontinued, today's chest x-ray has been reviewed with Dr. Meza, trace right residual pneumothorax, new right infrahilar opacity, possibly minimal atelectasis/infiltrate. We'll continue to follow. Stable to go out of the intensive care unit today to [facility]. Critical care is over 30 minutes I performed a history & physical examination of the patient and discussed their management with my nurse practitioner, Carmella Jimenez. I reviewed the nurse practitioner's note and agree with the documented findings and plan of care. Lung sounds are positive for clear. The findings and the impression was discussed with the patient. I attest to the documentation by the nurse practitioner. Time with Patient: Less than 30
[2018-11-07 12:15] LABS: Glucose,Whole Blood 144 mg/dL (75-99)
--- NOTE | 2018-11-07 14:36 | P.PN ---
Subjective Progress Note Date: 11/07/18 This is a 58-year-old female who follows with Dr. James as her primary care physician. She has a history of hyperlipidemia, hypothyroidism, anemia, fibromyalgia, anxiety/depression, COPD. She presented to the emergency department with dyspnea. Patient was at home when she experienced rest for distress and called EMS. In route to the hospital she was put on a BiPAP due to minimal responsiveness. Upon arrival to the emergency department her initial vital signs were tachycardic with no measurable pulse oximetry and she was hypotensive. Patient was positive for JVD, 1 view chest was obtained for a positive pneumothorax 50% on the left and a possible pneumothorax on the right. A chest tube was placed on the left and patient had failure to respond to treatment. At which CPR was initiated by ACLS protocol for approximately 1 minute. A central line was placed in the left subclavian vein during the code. Patient was intubated. An repeat chest x-ray showed a pneumothorax on the right and a right-sided 24-Bengali chest tube was placed. Patient's vital signs improved and she was transported to ICU for continuation of care. Patient presents intubated at this time. She is awake and able to answer questions appropriately. Her current vent setting assist control of 16, tidal volume 350 , FiO2 at 35% and a PEEP of 5. Her morning blood gases reveal a pO2 of 85 pCO2 of 41 pH 7.38. H&H is currently sedated with 30 mics per KG per minute of debridement and, fentanyl drip at 1 MCG per KG per hour. Patient is able to follow commands she is able to move all 4 extremities. Her white count is 7.6, hemoglobin of 10, creatinine 0.6. 10/28: Patient continues to be sedated and intubated. Chest x-ray this morning showed significant progression of left-sided pneumothorax estimated at 50%. Left lower lobe pleural catheter appears unchanged in position. It increased subcutaneous air identified. Subsequently the patient underwent a another chest tube insertion on the left side to help relieve the pneumothorax. Repeat checks x-ray showed a persistent left apical pneumothorax estimated at 15-20%. A new left-sided chest tube place. Patient is receiving tube feedings through NG tube at this time. She continues to be on propofol at 65 mics per KG per minute and fentanyl drip at 1 nury per KG per hour. Patient also is getting Dilaudid and [place] as needed for pain. Her brought in opium to help with abdominal discomfort. Vent settings are unchanged the vent setting assist control 16, tidal volume of 350, FiO2 at 35%, and a PEEP of 5. Patient's urinary output is 50-70 mL per hour. Discussed findings with at the bedside in the plan to continue with sedation and intubation to rest the lungs and we will reassess tomorrow for possible weaning. states that this happened a few months ago where she was on prolonged intubation due to her lungs not recovering. 10/29: Patient continues to be sedated and intubated. Chest x-ray does show improvement to bilateral pneumothorax and [address]. Patient has been tachycardic overnight with a rate in the 130s. Patient grimaces in pain and withdraws. Patient continue to see tube feedings through NG tube. She continues to be on propofol and fentanyl for sedation. Patient was on Nimbex overnight however that has been DC'd. Vent settings are unchanged with the vent assist control 16, tidal volume 350, FiO2 at 35%, and a PEEP of 5. Patient 's urinary output continues to be 50-70 ML's per hour. Discussed case with pulmonology and consult for trach and PEG tube is in place. Pulmonology does not feel the patient will be successful in weaning. 10/30/18: Patient is sitting up in bed extubated. Patient was successfully weaned this morning. She is alert and orientated 3 and able to answer questions appropriately. Patient is complaining of pain to the chest due to the 3 chest tubes that are in place. Patient does have a history of Crohn's and discussed the medication she normally takes for them including Humira which we will hold at this time. Patient continues to be on sentinel drip for pain she also is receiving Dilaudid as needed for breakthrough pain. CBC 11.3, hemoglobin 8.7, potassium 4.7 BUN 28 creatinine 0.5. 10/31: Patient remains in the intensive care unit. She was successfully extubated yesterday and is currently pulse ox is 96% on 4 L nasal cannula. White count is 13.1, hemoglobin 9.4, CO2 is 32, electrolytes within normal limits, creatinine 0.54. Sputum cultures positive for Tish albicans. Urine culture finalized with no growth and blood culture showing no growth after 96 hours. Repeat chest x-ray shows 2 chest tubes on the left and one on the right. No appreciable pneumothorax. Relative upper lung lucency suggesting underlying emphysema. Continue small pleural effusions with adjacent atelectasis or consolidations. Cardiothoracic surgery signing off the case is no plan is for trach and PEG placement. Patient remains with 2 left-sided chest tubes in 1 right-sided chest tube. Pulmonary is planning to maintain chest tubes. Solu-Medrol transitioned to prednisone. monitoring and evaluation advisor is a sinus tachycardia. Ribera catheter is in place draining adequate amount of urine. Ileostomy with dark brown stool. Patient has been seen by GI with recommendations to continue Humira every 2 weeks and can be restarted after discharge the patient had verbalized that she did not want to continue on Humira. Patient is to follow-up with Dr. Verma in the office as scheduled. Patient currently has [facility] home care in place. PT to start working with patient today. [facility]. Home medications will be reviewed. 11/01: Patient remains in the intensive care unit and breathing continues to improve slowly. Pulse ox is 96% on 3 L nasal cannula, heart rates running in the 90s. White count is 13.1, hemoglobin 9.6, creatinine 0.54. Electrolytes within normal limits. Patient is requesting using her home nicotine gum which will be ordered. Sputum culture showing Tish. 11/02: Patient remains in the intensive care unit. Repeat chest x-ray shows bilateral chest tubes remain unchanged. No evidence of sizable pneumothorax within either lung at this time. CAT scan of the chest reveals bilateral pneumothorax disease. Chest tubes are present. Consider reposition a right- sided chest tube. Bilateral apical masses left side is increasing in size. She does have bilateral chest tubes and there is plan for possibly removing the right side in the next couple days. There is a considerable leak on one of the left sided chest tubes in cardiothoracic surgery has been reconsulted. Patient is working with physical therapy and occupational therapy at the bedside. 11/03: Patient remains in the intensive care unit. She has 2 left-sided chest tubes in 1 right-sided chest tube in place. She states she is having cough with sputum production. She is using her incentive spirometry. Overall, she states her breathing is improving slowly. She does complain of chest pain more so on the left side. She does state that yesterday she started having increased stool from her ostomy and feels that she is having a flareup of her Crohn's. She does have opium available. We will start her back on IV fluids to avoid dehydration, monitor electrolytes. Heart rate remains elevated for which Lopressor will be increased to 50 mg twice daily which is her home dose. Verapamil is on hold due to hypotension. 11/04: Patient states that she had a lot of diarrhea yesterday but this seems to be decreasing this morning. She is feeling better from yesterday. She has had good urine output. She states this morning there was bleeding from one of her chest tubes in the bed which has been cleaned up in everything has been changed. Heart rate is remaining elevated. Lopressor is currently at 50 g twice daily. Cardiothoracic surgery does not plan for any surgical intervention. Patient encouraged to use incentive spirometry and increase activity area 11/05: Cardiothoracic surgeon discussed with patient transferred to [facility] for blebectomy and look at lung transplant evaluation. Awaiting clearance from pulmonary medicine and we'll make arrangements to transfer. Patient states her breathing is better today. She states she has been up since 5 AM and walked in the hallway twice and now she's tired. There is less leak on the left chest tube. Magnesium is been replaced. Heart rate is still running in the 120s. She states diarrhea is slowing and a thicker consistency. 11/06: Patient remains with 2 left-sided chest tubes in 1 right-sided chest tube. Patient is followed by pulmonary medicine and cardiothoracic surgery. Respiratory status is stable. Pulse ox is 94% on 1 L nasal cannula. She is using incentive spirometry. She has been afebrile, white count 12.9, hemoglobin 7.5. Creatinine is 0.47, sodium 134 potassium 4.4, chloride 98 and CO2 36. Blood sugars are running between 99 and 170. 11/07: There has been scheduled cardiothoracic surgery and pulmonary medicine regarding transferring the patient whether this should be done now during this hospitalization are stabilized and discharged home and follow-up with [facility]. Consultants to make decision regarding this. Patient states that she is feeling better today she is feeling well but tired. She is found sitting in the ICU bed. All chest tubes and Ribera catheter have been discontinued. Anticipate possible discharge in the next 24 hours. Review Of Systems: Constitutional: Pain to the chest due to chest tube No fever, no chills, no night sweats. No weight change. Reports weakness, fatigue or lethargy. EENT: No headache. No blurred vision or double vision, no loss of vision. No loss of Hearing, no ringing in the ears, no dizziness. No nasal drainage or congestion. No epistaxis. No sore throat. Lungs: No shortness of breath, cough, no sputum production. No wheezing. Cardiovascular: No chest pain, no lower extremity edema. No palpitations. No paroxysmal nocturnal dyspnea. No orthopnea. No lightheadedness or dizziness. No syncopal episodes. Abdominal: no abdominal discomfort. Reports nausea, denies vomiting. Reports diarrhea. No constipation. No bloody or tarry stools. Reports loss of appetite. Genitourinary: No dysuria, increased frequency, urgency. No urinary retention. Musculoskeletal: No myalgias. No muscle weakness, no gait dysfunction, no frequent falls. No back pain. No neck pain. Integumentary: No wounds, no lesions. No rash or pruritus. No unusual bruising. No change in hair or nails. Neurologic: No aphasia. No facial droop. No change in mentation. No head injury. No headache. No paralysis. Psychiatric: No depression. No anxiety. No mood swings. Endocrine: No abnormal blood sugars. Objective - Vital Signs Vital signs: Vital Signs Temp 97.9 F 11/07/18 00:00 Pulse 111 H 11/07/18 09:00 Resp 14 11/07/18 09:00 BP 118/81 11/07/18 09:00 Pulse Ox 96 11/07/18 09:00 Intake & Output 11/06/18 11/07/18 11/07/18 18:59 06:59 18:59 Intake Total 1270 390 370 Output Total 1070 1125 Balance 200 -735 370 Weight 57.8 kg 55.6 kg 55.6 kg Intake: IV 330 390 30 Sodium Chloride 0.9% 1, 330 390 30 000 ml @ 30 mls/hr IV . Q24H MEENU Rx#:[id number] Intake, IV Titration 100 100 Amount Magnesium Sulfate-D5w Pmx 100 1 gm In Dextrose/Water 1 100ml.bag @ 100 mls/hr IVPB Q1H MEENU Rx#: [id number] Magnesium Sulfate-D5w Pmx 100 1 gm In Dextrose/Water 1 100ml.bag @ 100 mls/hr IVPB Q1H MEENU Rx#: [id number] Oral 840 240 Output: Urine 670 775 Stool 400 350 Other: Voiding Method Bedside Commode Bedside Commode Bedside Commode # Voids 1 1 - Exam General appearance: Present: average body habitus, cooperative, no acute distress. Patient is resting in bed and appears to be comfortable - EENT Eyes: Present: anicteric sclerae, EOMI, PERRLA ENT: Present: hearing grossly normal, NA/AT - Neck Neck: Present: normal ROM. Absent: lymphadenopathy - Respiratory Respiratory: bilateral: diminished, wheezing, no accessory muscle usage negative : dullness, rales, rhonchi, prolonged expiration, prolonged inspiration, other - Cardiovascular Rhythm: regular Heart sounds: normal: S1, S2 Abnormal Heart Sounds: Absent: systolic murmur, diastolic murmur, rub, S3 Gallop , S4 Gallop, click, other - Gastrointestinal General gastrointestinal: Present: normal bowel sounds, soft. Mild generalized tenderness, ileostomy in place - Integumentary Integumentary: Present: pale - Neurologic Neurologic: Present: CNII-XII intact - Musculoskeletal Musculoskeletal: Present: generalized weakness, strength equal bilaterally - Psychiatric Psychiatric: Present: A&O x's 3, appropriate affect, intact judgment & insight - Labs CBC & Chem 7: 11/07/18 05:00 11/07/18 05:00 Labs: Abnormal Lab Results - Last 24 Hours (Table) 11/06/18 11/06/18 11/07/18 Range/Units 12:17 20:46 05:00 WBC 13.6 H (3.8-10.6) k/uL RBC 2.62 L (3.80-5.40) m/uL Hgb 7.7 L (11.4-16.0) gm/dL Hct 24.1 L (34.0-46.0) % RDW 17.7 H (11.5-15.5) % Sodium (137-145) mmol/L Carbon Dioxide (22-30) mmol/L BUN (7-17) mg/dL Glucose (74-99) mg/dL POC Glucose (mg/dL) 136 H 162 H (75-99) mg/dL 11/07/18 11/07/18 Range/Units 05:00 07:01 WBC (3.8-10.6) k/uL RBC (3.80-5.40) m/uL Hgb (11.4-16.0) gm/dL Hct (34.0-46.0) % RDW (11.5-15.5) % Sodium 135 L (137-145) mmol/L Carbon Dioxide 36 H (22-30) mmol/L BUN 19 H (7-17) mg/dL Glucose 107 H (74-99) mg/dL POC Glucose (mg/dL) 138 H (75-99) mg/dL Assessment and Plan Plan: #1 Acute hypoxic respiratory failure secondary to acute exacerbation of severe oxygen dependent chronic obstructive pulmonary disease, complicated by bilateral pneumothorax. Status post bilateral chest tube placements. Patient has been successfully extubated. Continue Dilaudid 1 mg every 3 hours as needed for break through pain and [place] as needed. Continue DuoNeb treatments every 4 hours scheduled and as needed, Pulmicort 1 mg twice daily, Perforomist twice daily, prednisone. Pulmonary consult appreciated Cardiothoracic surgery has been reconsulted there is no plan for surgical intervention. Patient may be transferred to [facility] for further surgical intervention and also lung transplant evaluation or may have outpatient follow-up here this to be determined by consultants. #2 Brief cardiac arrest secondary to above responded to epinephrine. #3 Severe advanced chronic obstructive pulmonary disease and bullous emphysema with underlying FEV1 value 36% of predicted. Both oxygen and steroid dependent. Continue Pulmicort, continue prednisone. #4 History of prolonged respiratory failure requiring intubation mechanical ventilation with subsequent tracheostomy and PEG tube placements [facility]. #5 bilateral pneumothorax related to severe advanced stages of COPD and bullous emphysema Chest tubes in place. Repeat chest x-ray #6 Previous history of right-sided pneumothorax 2. #7 Chronic left upper lobe inflammatory opacity. #8 Hyperlipidemia. #9 Hypertension. Continue to monitor blood pressure #10 Chronic normocystic anemia, anemia of chronic disease. Monitor CBC #11 Fibromyalgia. Continue Dilaudid or [place] as needed #12 Generalized anxiety disorder and recurrent depression. #13 History of Crohn's with possible exacerbation. Consult gastroenterology. Continue opium. IV fluids 0.9 normal saline at 100 mL per hour. #14 GI prophylactics Protonix 40 mg po daily #15 DVT prophylaxis heparin 5000 units subcu every 8 hours Discharge plan: Home with [facility] the next 24-48 hours Impression and plan of care have been directed as dictated by the signing physician. Gaby Rothman nurse practitioner acting as scribe for signing physician.
[2018-11-07 17:16] LABS: Glucose,Whole Blood 188 mg/dL (75-99)
[2018-11-07 20:45] LABS: Glucose,Whole Blood 127 mg/dL (75-99)
[2018-11-07] MEDS: LATANOPROST 0.005% OPHTH DROPS 2.5 ML BTL BOTH EYES SCH (21:03)
[2018-11-07] MEDS: MELATONIN 5 MG TABLET PO SCH (21:03)
[2018-11-07] MEDS: SODIUM CHLORIDE 0.9% 1,000 ML IV SCH (21:13)
[2018-11-08] MEDS: HYDROmorphone 0.5 MG/0.5 ML SYRINGE IVP PRN (02:54)
[2018-11-08] MEDS: IPRATROPIUM-ALBUTEROL 3 ML NEB INHALATION SCH ×5 (02:59→20:14)
--- NOTE | 2018-11-08 06:50 | XR ---
EXAMINATION TYPE: XR chest 1V portable DATE OF EXAM: 11/08/2018 CLINICAL HISTORY: Difficulty breathing and chest tubes progress study. TECHNIQUE: Single AP portable upright view of the chest is obtained. COMPARISON: Chest x-ray from one day earlier and older studies. CT chest from November 02, 2018. FINDINGS: There is better visualization of small right apical lateral pneumothorax on current study estimated 5-10%. Background of advanced emphysematous change with poorly visualized lung makes evalua tion suboptimal. Cannot exclude some residual basilar pneumothorax with small right pleural fluid col lection. There is medial basilar scarring redemonstrated. There are several right posterior lateral r ib fractures again seen. Osseous structures are demineralized. There is persistent elevated left karol diaphragm with left basilar opacity. No new mediastinal shift is seen. Cardiac silhouette size appear s within normal limits. Left subclavian central venous catheter is redemonstrated. IMPRESSION: Better visualization of apicolateral right pneumothorax estimated 5-10% likely stable fro m one day earlier. No measurable left-sided pneumothorax. Background of advanced emphysematous change with small bilateral pleural fluid collections and left basilar consolidation and/or atelectasis all redemonstrated.
[2018-11-08] MEDS: INSULIN ASPART 100 UNIT/ML 1 ML 10 ML VIAL SQ SCH ×4 (07:12→21:29)
[2018-11-08] MEDS: PANTOPRAZOLE 40 MG TABLET PO SCH (07:19)
[2018-11-08] MEDS: HYDROcodone/APAP 10-325MG 1 EACH TAB PO PRN ×4 (07:19→21:43)
[2018-11-08 07:20] LABS: Glucose,Whole Blood 104 mg/dL (75-99)
[2018-11-08] MEDS: BUDESONIDE 1 MG/2 ML NEBU INHALATION SCH ×2 (08:24→20:14)
[2018-11-08] MEDS: FORMOTEROL FUMARATE 20 MCG/2 ML NEBU INHALATION SCH ×2 (08:24→20:14)
--- NOTE | 2018-11-08 08:46 | P.PN ---
Subjective Progress Note Date: 11/08/18 Principal diagnosis: Acute hypoxic respiratory failure secondary to COPD and bilateral pneumothoraces This is a 58-year-old female patient who follows with Dr. James as her primary care physician. She has a history of hyperlipidemia, hypothyroidism, anemia, fibromyalgia, anxiety/depression. Chest has a history of severe oxygen- dependent bullous emphysema/COPD with FEV1 value of 36% of predicted and a chronic left upper lobe inflammatory opacity that was nonmalignant. She has a history of prolonged respiratory failure requiring mechanical ventilation and was subsequently tr[facility] and [facility]. She had since been decannulated. She's had multiple admissions for COPD exacerbations most recently discharged from here on 10/16/2018. She was brought in by EMS to the emergency room yesterday with severe respiratory distress requiring initially BiPAP support. She was found to have bilateral pneumothorax and chest tubes were placed as well as a left thoravent. She had a brief cardiac arrest requiring epinephrine. She was subsequently intubated and placed on mechanical ventilator and transferred here to the intensive care unit. She is seen today in consultation with current vent settings assist- control of 16, tidal volume 350, FiO2 of 35% and a PEEP of 5. Morning blood gases reveal a P O2 of 85, pCO2 41, pH 7.38. Her measured airway resistance is currently 8.8. She is sedated on to prevent at 30 mcg/kg/m., Fentanyl drip at 1 mcg/kg per hour, 1.9 normal saline at 75 ML's per hour. She does follow simple commands. She is moving all fours. Cultures are pending. White count 7.6. Hemoglobin 10.0. Creatinine 0.69. She's been initiated and DuoNeb inhalations. Patient was reevaluated today on 10/29/2018, remains in the ICU on mechanical ventilation. Patient has been on same ventilator settings, tidal volume of 350 assist-control rate of 16 FiO2 of 35% and PEEP of 5. Patient remains on fentanyl drip, she is also on propofol drip, and both are basically maximized. Last night Dr. Meza placed the patient on Nimbex drip. However I have discontinued the Nimbex drip today, and I will try to control her agitation with fentanyl and propofol only. Patient continues to have left-sided chest tubes, and 1 right sided chest tube, all of them are showing a bit of a leak. Her ABG showed a pO2 of 120 pCO2 of 40 0 pH of 7.44. Basic metabolic profile is normal, WBC count is 10.9 hemoglobin is 9.2. Chest x-ray did show improvement in aeration of the right lung base with persistent left basilar opacity may represent mostly atelectasis or possibly pneumonia. No sizable pneumothorax is noted on both sides. Patient remains on multiple bronchodilators, and on Solu-Medrol. Today I discussed with the nurses and with the admitting physician that it would be best to consider tracheostomy and PEG tube placement since the patient is going to be almost extremely difficult to wean successfully. She had a similar episode in the past, and she did require [facility]. Patient was reevaluated today on 10/30/2018, remains on mechanical ventilation, still requiring a significant dose of propofol and fentanyl. I have attempted to cut down the fentanyl to 25 mg per hour, and I have cut down the propofol gradually until discontinued. Her ventilator settings were noted to be assist- control rate of 16 FiO2 of 35% tidal volume of 350 and PEEP of 5. Her usual dose of propofol has been about 55 g and the dose of fentanyl was 100 g per hour. After cutting down on both and stopping her up a fall, I was able to give the patient a decent trial of pressure support of 10 and CPAP. Patient looked great and better than expected her chest x-ray was looking better today, her follow-up ABG post half hour at least on pressure support and CPAP looked great, pO2 was 79 pCO2 was 37 pH was 7.47, hence I proceeded to extubating the patient. I felt this is hour window otherwise the patient may require tracheostomy as noted previously. The rest of the labs and the chest x-ray were all reviewed. Electrolytes were normal CBC was relatively normal except for hemoglobin of 8.7. Patient was reevaluated today on 10/31/2018, patient is off mechanical ventilation , she was weaned and extubated successfully yesterday. Patient continues to have significant amount of pain medications on board, continues to be tachycardic, sinus tachycardia rate is in the 130 and 140 range. Continues to have chest tubes on both sides, one the left side and one on the left side. I have adjusted all her medications today, switched most them to oral medication, and change Solu-Medrol to prednisone, added Xanax to control her anxiety, discontinued fentanyl yesterday, and she is presently on IV medication for pain control. Her chest x-ray is showing some improvement, however the patient continues to have leaks in both tubes on both sides. She is on nasal cannula, saturating quite well, seems to be generally weak, and quite tachycardic, extremely anxious and agitated becomes very emotional when discussing her clinical condition. All labs were reviewed WBC count is 13.1 hemoglobin is 9.4 electrolytes and renal profile are normal. Patient was reevaluated today on 11/01/2018, remains in the intensive care unit, on nasal cannula, feeling much better today, breathing easier, seems to have less pain, less shortness of breath, but she continues to have significant air leak specially in one of the tubes on the left side, and minimal air leak on the right sided chest tube. Her tachycardia seems to be much better controlled , her heart rate is in the 90s, her O2 saturation is 96% on 3 L nasal cannula, and her blood pressure is 121/81 with a mean of 94. Labs and chest x-ray were reviewed, patient seems to be less anxious at this point, and all her meds including bronchodilators, steroids, antibiotics, were all addressed accordingly. Considering the significant air leak, and considering his severe COPD/emphysema with significant bullous disease, I have a feeling that the patient is going to have significant difficulty healing from her pneumothorax, and she may eventually require surgical intervention. That is yet to be decided in the next few days. Reevaluated today on 11/02/2018, patient remains in the intensive care unit, continues to have bilateral chest tubes, however the right-sided chest tube showed no leak today, and I have placed the tube on water seal, off wall suction. One of the left-sided chest tubes continues to have a significant amount of leak, hence I consulted thoracic surgery. Patient may eventually require surgical intervention. Overall the patient is doing better than expected, she has been tolerating the extubation well over the last few days. Chest x-ray was reviewed, labs were reviewed, medications were reviewed and the addressed. Discussed her condition also with a thoracic surgeon at bedside. Reevaluated today on 11/03/2018, remains in the intensive care unit, continues to have left-sided chest tube leak, right sided chest tube is off suction, chest x- ray showed no evidence of pneumothorax, CT of the chest showed significant bullous emphysema on both sides. Patient was seen by thoracic surgery on consultation, no plans for intervention at this point, the recommendation was to continue chest tubes on suction. Patient is comfortable, she is not in any form of distress. All her meds and labs were reviewed. Chest x-ray and CT of the chest was reviewed. Reevaluated today on 11/04/2018, basically the patient is about the same, the leak from the left sided chest tube seems to be much less today. And it is intermittent. No leak from the right sided chest tube. Chest x-ray is showing mostly some atelectasis of the right base. She was seen by thoracic surgery again today, and entertaining the possibility of volume reduction surgery, and eventually down the line consider pulmonary transplant. No immediate plans for surgery, patient will be given the option eventually whether she would like to have the surgery done here or in a tertiary care center. This will be decided upon hopefully in the next couple of days. In the meantime the patient is doing relatively well, resting, in no distress. WBC count is 11.7 hemoglobin is 7.5. Electrolytes and renal profile are normal. On 11/05/2018 patient seen again in follow-up in the intensive care unit, she sits up in the recliner, in no acute distress, likely on 1 L per nasal cannula pulse ox of 99%, afebrile, she remains tachycardic, with a heart rate in the 120s BPM, sinus mechanism. Current IV fluids is 0.9 normal saline at a rate of 100 ML per hour, 2 chest tubes on the left to wall suction, with serosanguineous outputs in the Pleur-evac, and one chest tube on the right to water seal. Lung sounds are clear to auscultation, no rhonchi, no wheezing. Today's chest x-ray has been reviewed with Dr. Domínguez, shows persistent small right pleural effusion and bibasilar infiltrate and/or atelectasis. Superior left chest tube has been retracted, and the site port is outside the pleural space. CT surgery is following, possibility of removal of one the chest tubes today. Labs have been reviewed, WBCs 11.9, hemoglobin is 7.1, sodium is 134, potassium is 4.2, chloride is 97, CO2 35, BUN is 12 and creatinine 0.51. Her pain is reasonably controlled, she is working on her incentive spirometer. Blood and urine cultures are negative, sputum culture only showed Tish albicans. Patient is on oral prednisone, and Pulmicort and Perforomist, and nebulized bronchodilators. On October 2018 patient seen again in follow-up in the intensive care unit, she sits up in the recliner, in no acute distress, currently on 2 L per nasal cannula, sats is 93%, patient is afebrile, hemodynamically stable, heart rate is better controlled, with intermittent periods of tachycardia. Lung sounds are diminished breath sounds over right lower base, a few limited crackles over left lower base, patient still has the 2 left-sided pleural chest tubes in place on the left and 1 right-sided pleural chest tube, with some serosanguineous output, all chest tubes are placed to waterseal, repeat chest x- rays pending. CT surgery is following. Today's lab work has been noted, the PVCs 12.9, hemoglobin is 7.5, sodium is 134, potassium is 4.4, chloride is 98 CO2 36, BUN 16 and creatinine 0.47. No worsening dyspnea, patient is working on her incentive spirometer, she does have a loose nonproductive congested cough , she has a valve at the bedside, and she using it. Today's chest x-ray has been reviewed with Dr. Domínguez, shows COPD with left upper lobe nodule, and possibly increasing nodularity at the right base, 2 chest tubes on the left and one chest tube on the right, no appreciable pneumothorax, the site for the left- sided chest tube is outside of the pleural space, small bilateral pleural effusions with adjacent atelectasis. Microbiology has been reviewed, sputum culture with Tish albicans only, no fever or chills, IV steroids have been transitioned to oral prednisone, patient remains on nebulized bronchodilators. On 11/07/2018 patient seen in follow-up in the intensive care unit, she is awake and alert, in no acute distress, denies any difficulty breathing, she is working on her incentive spirometry, able to achieve 750. All chest tubes have been discontinued per CT surgery, this morning's chest x-ray was reviewed with Dr. Meza, and showed trace right residual pneumothorax status post bilateral thoracostomy interval tube removal. New right infrahilar opacity, suspicious for pneumonia, bullous emphysematous changes and trace pleural effusions are stable. Afebrile, on 2 L per nasal cannula she is satting 96%, sinus tachycardia with a rate of 111 BPM. Sputum culture with Tish albicans only. Blood and urine cultures are negative lung sounds are diminished, no rhonchi or wheezes noted. IV fluids 0.9 normal saline at a rate of 30 ML per hour. These labs have been reviewed, WBC is 13.6, hemoglobin is 7.7, sodium is 135, CO2 is 36, BUN is 19 and creatinine 1.60. On 11/08/2018 patient seen in follow-up in the intensive care unit, her chest tubes were discontinued before yesterday, today's chest x-ray was reviewed with Dr. Domínguez, shows apical lateral right pneumothorax estimated to be between 5 and 10%, stable from previous x-rays, no measurable left-sided pneumothorax, background of advanced emphysematous change with small bilateral pleural fluid collections and left basilar consolidation and/or atelectasis. Patient states she didn't sleep well last night, related to cough and pain, she is receiving pain medications in the form of [place], she is working on her incentive spirometer, she is able to achieve 500-759 today, she is on breathing medications, Pulmicort and Perforomist, DuoNeb, she is on oral prednisone. She is on 2 L per nasal cannula pulse ox is 95%, heart rate is between 96-109 BPM, afebrile. Sputum culture with Tish albicans, urine and blood culture negative. A bit more wheezy on today's exam. Otherwise no acute distress. Objective - Vital Signs Vital signs: Vital Signs Temp 97.9 F 11/07/18 00:00 Pulse 96 11/08/18 08:26 Resp 15 11/08/18 07:00 BP 123/89 11/08/18 07:00 Pulse Ox 95 11/08/18 07:00 Intake & Output 11/07/18 11/08/18 11/08/18 18:59 06:59 18:59 Intake Total 1225 540 Output Total 1000 250 Balance 225 290 Weight 55.6 kg 54.2 kg Intake: IV 165 180 Sodium Chloride 0.9% 1, 165 180 000 ml @ 30 mls/hr IV . Q24H [facility] Rx#:[id number] Intake, IV Titration 460 Amount Magnesium Sulfate-D5w Pmx 460 1 gm In Dextrose/Water 1 100ml.bag @ 100 mls/hr IVPB Q1H [facility] Rx#: [id number] Oral 600 360 Output: Stool 1000 250 Other: Voiding Method Bedside Commode Bedside Commode # Voids 1 1 - Exam Physical Exam: Revealed a 58-year-old female in no distress. Head: Atraumatic normocephalic. HEENT:: [No neck masses.] [No thyromegaly.] [No JVD.] Left subclavian central line is noted. Chest: [ Diminished breath sounds with a few wheezes in the left upper lobe. Interval removal of the 2 left-sided pleural chest tubes and at one right-sided pleural chest tube Cardiac Exam: [Normal S1 and S2, no S3 gallop, no murmur.] Abdomen: [Soft, nontender, no megaly, no rebound, no guarding, normal bowel sounds.] Extremities: [No clubbing, no edema, no cyanosis.] Neurological Exam: [No focal neurologic deficit. Extremities no clubbing edema or cyanosis. Lymphatics: No lymphadenopathy.] - Labs CBC & Chem 7: 11/07/18 05:00 11/07/18 05:00 Labs: Abnormal Lab Results - Last 24 Hours (Table) 11/07/18 11/07/18 11/07/18 Range/Units 12:12 16:55 20:34 POC Glucose (mg/dL) 144 H 188 H 127 H (75-99) mg/dL 11/08/18 Range/Units 07:09 POC Glucose (mg/dL) 104 H (75-99) mg/dL Assessment and Plan Plan: #1 Acute hypoxic respiratory failure secondary to acute exacerbation of severe oxygen dependent chronic obstructive pulmonary disease, complicated by bilateral pneumothorax. Status post 3 chest tube placements to on the left and one on the right. She currently has 2 chest tubes on the left, and one on the right #2 Brief cardiac arrest secondary to above responded to epinephrine. #3 Severe advanced chronic obstructive pulmonary disease and bullous emphysema with underlying FEV1 value 36% of predicted. Both oxygen and steroid dependent. #4 History of prolonged respiratory failure requiring intubation mechanical ventilation with subsequent tracheostomy and PEG tube placements and [facility]. Subsequently decannulated. #5 Previous history of right-sided pneumothorax 2. #6 Chronic left upper lobe inflammatory opacity. #7 Hyperlipidemia. #8 Hypothyroidism. #9 Chronic normocystic anemia. #10 Fibromyalgia. #11 History of anxiety/depression with previous discontinuation of her prescribed medications. #12 successful extubation on 10/30/2018, patient seems to have tolerated the extubation well, however she still has a long way to go. Considering her severe emphysema and her chest tubes, and the ongoing leak in the left sided chest tube, patient will require to remain in the ICU. Patient is being considered for possible volume reduction by thoracic surgery on the case. Plan: Continue same breathing medications, oral prednisone, Pulmicort and Perforomist , his chest x-ray was reviewed with Dr. Meza, shows small apical lateral right pneumothorax, no pneumothorax on the right, small bilateral pleural effusions and adjacent atelectasis, no acute pulmonary process. Continue encouraging deep breathing and coughing, continue pain control, increase activity as tolerated, patient is awaiting a bed on [facility] today. Continue to follow. I performed a history & physical examination of the patient and discussed their management with my nurse practitioner, Carmella Jimenez. I reviewed the nurse practitioner's note and agree with the documented findings and plan of care. Lung sounds are positive for a few wheezes in the left upper lobe. The findings and the impression was discussed with the patient. I attest to the documentation by the nurse practitioner. Time with Patient: Less than 30
--- NOTE | 2018-11-08 09:28 | P.PN ---
Subjective Progress Note Date: 11/08/18 Principal diagnosis: Severe end-stage COPD with home oxygen use and previous FEV1 36% of predicted, history of previous tracheostomy and PEG tube placement in June 2018, fibromyalgia, GERD, GI bleed, hyperlipidemia, hypertension, osteoarthritis, pneumonia, multiple pneumothoraces, thoravent placement 2, Crohn's disease with multiple bowel surgeries, and previous tobacco dependence. The patient is currently sitting up in bed in no acute distress. She denies any pain or shortness of breath at this time. She is concerned about plan for discharge to home versus transfer as she feels her respiratory symptoms accelerate without any warning. All chest tubes have been discontinued. She has been up in the chair for meals and has ambulated in the hallway. Transfer orders were placed patient to go to [facility], however there is no bed availability. Objective - Vital Signs Vital signs: Vital Signs Temp 97.9 F 11/07/18 00:00 Pulse 109 H 11/08/18 07:00 Resp 15 11/08/18 07:00 BP 123/89 11/08/18 07:00 Pulse Ox 95 11/08/18 07:00 Intake & Output 11/07/18 11/08/18 11/08/18 18:59 06:59 18:59 Intake Total 1225 540 Output Total 1000 250 Balance 225 290 Weight 55.6 kg 54.2 kg Intake: IV 165 180 Sodium Chloride 0.9% 1, 165 180 000 ml @ 30 mls/hr IV . Q24H [facility] Rx#:[id number] Intake, IV Titration 460 Amount Magnesium Sulfate-D5w Pmx 460 1 gm In Dextrose/Water 1 100ml.bag @ 100 mls/hr IVPB Q1H [facility] Rx#: [id number] Oral 600 360 Output: Stool 1000 250 Other: Voiding Method Bedside Commode Bedside Commode # Voids 1 1 - Constitutional General appearance: Present: cooperative, no acute distress - Respiratory Details: Lungs sounds diminished bilaterally. Respirations even, nonlabored. Currently on 2 L nasal cannula with oxygen saturation 96%. Able to achieve 750 mL on her incentive spirometry. Strong cough. - Cardiovascular Details: S1, S2 present. Tachycardia but regular rate and rhythm, sinus tach on telemetry. Palpable peripheral pulses bilaterally. No edema present. No calf pain or tenderness noted. SCDs present. - Gastrointestinal Gastrointestinal Comment(s): Abdomen soft, nontender, nondistended. Active bowel sounds present 4 quadrants. Right lower quadrant ileostomy present. Tolerating diet. - Genitourinary Genitourinary Comment(s): Continues to void clear, yellow urine. - Integumentary Integumentary Comment(s): Skin is warm and dry with evidence of good perfusion. - Neurologic Neurologic: Present: CNII-XII intact - Musculoskeletal Musculoskeletal: Present: gait normal, strength equal bilaterally - Psychiatric Psychiatric: Present: A&O x's 3, appropriate affect, intact judgment & insight - Allied health notes Allied health notes reviewed: nursing - Labs CBC & Chem 7: 11/07/18 05:00 11/07/18 05:00 Labs: Abnormal Lab Results - Last 24 Hours (Table) 11/07/18 11/07/18 11/07/18 Range/Units 12:12 16:55 20:34 POC Glucose (mg/dL) 144 H 188 H 127 H (75-99) mg/dL 11/08/18 Range/Units 07:09 POC Glucose (mg/dL) 104 H (75-99) mg/dL - Imaging and Cardiology Chest x-ray: report reviewed, image reviewed Assessment and Plan (1) Failure to wean from mechanical ventilation Current Visit: Yes Status: Acute Code(s): Z99.11 - DEPENDENCE ON RESPIRATOR [VENTILATOR] STATUS SNOMED Code(s): 329381751 (2) Acute exacerbation of chronic obstructive airways disease Current Visit: Yes Status: Acute Code(s): J44.1 - CHRONIC OBSTRUCTIVE PULMONARY DISEASE W (ACUTE) EXACERBATION SNOMED Code(s): 611953255 (3) Bilateral pneumothorax Current Visit: Yes Status: Acute Code(s): J93.9 - PNEUMOTHORAX, UNSPECIFIED SNOMED Code(s): 32959767 Plan: 1. From a surgical standpoint the patient does need bullectomy, however she should be evaluated for lung transplant at [facility], and may benefit from having bullectomy completed by the same team. Extensive discussion took place between Dr. Patricia and Dr. Meza, both feel patient is stable to be discharged to home to follow-up with the team at [facility] in the very near future without the need for hospital to hospital transfer at this time. 2. Bronchodilators, steroids management per pulmonology. 3. GI/DVT prophylaxis. 4. Encourage incentive spirometry use 10 times every hour while awake. 5. Increase activity as tolerated. Ambulate in hallway. 6. Medical management per primary care service. 7. Will continue to monitor while hospitalized. Time with Patient: Greater than 30
[2018-11-08] MEDS: GABAPENTIN 300 MG CAP PO SCH ×3 (09:33→21:42)
[2018-11-08] MEDS: NYSTATIN 100,000 UNIT/ML SUSP 500,000 UNIT/5 ML CUP PO SCH ×4 (09:33→21:43)
[2018-11-08] MEDS: HEPARIN SODIUM,PORCINE 5,000 UNIT/ML 1 ML VIAL SQ SCH ×2 (09:33→15:30)
[2018-11-08] MEDS: COLCHICINE 0.6 MG EACH PO SCH (09:33)
[2018-11-08] MEDS: ALPRAZolam 0.25 MG TAB PO PRN ×2 (09:33→21:43)
[2018-11-08] MEDS: METOPROLOL TARTRATE 50 MG TAB PO SCH ×2 (09:34→21:42)
[2018-11-08] MEDS: DICYCLOMINE 10 MG CAP PO SCH ×3 (09:34→21:42)
[2018-11-08] MEDS: DULoxetine HCL 30 MG CAPSULE.DR PO SCH ×2 (09:34→21:40)
[2018-11-08] MEDS: predniSONE 10 MG TAB PO SCH (09:34)
[2018-11-08] MEDS: busPIRone HCl 10 MG TAB PO SCH ×3 (09:34→21:42)
[2018-11-08 11:50] LABS: Glucose,Whole Blood 125 mg/dL (75-99)
--- NOTE | 2018-11-08 12:19 | P.PN ---
Subjective Progress Note Date: 11/08/18 This is a 58-year-old female who follows with Dr. James as her primary care physician. She has a history of hyperlipidemia, hypothyroidism, anemia, fibromyalgia, anxiety/depression, COPD. She presented to the emergency department with dyspnea. Patient was at home when she experienced rest for distress and called EMS. In route to the hospital she was put on a BiPAP due to minimal responsiveness. Upon arrival to the emergency department her initial vital signs were tachycardic with no measurable pulse oximetry and she was hypotensive. Patient was positive for JVD, 1 view chest was obtained for a positive pneumothorax 50% on the left and a possible pneumothorax on the right. A chest tube was placed on the left and patient had failure to respond to treatment. At which CPR was initiated by ACLS protocol for approximately 1 minute. A central line was placed in the left subclavian vein during the code. Patient was intubated. An repeat chest x-ray showed a pneumothorax on the right and a right-sided 24-Kazakh chest tube was placed. Patient's vital signs improved and she was transported to ICU for continuation of care. Patient presents intubated at this time. She is awake and able to answer questions appropriately. Her current vent setting assist control of 16, tidal volume 350 , FiO2 at 35% and a PEEP of 5. Her morning blood gases reveal a pO2 of 85 pCO2 of 41 pH 7.38. H&H is currently sedated with 30 mics per KG per minute of debridement and, fentanyl drip at 1 MCG per KG per hour. Patient is able to follow commands she is able to move all 4 extremities. Her white count is 7.6, hemoglobin of 10, creatinine 0.6. 10/28: Patient continues to be sedated and intubated. Chest x-ray this morning showed significant progression of left-sided pneumothorax estimated at 50%. Left lower lobe pleural catheter appears unchanged in position. It increased subcutaneous air identified. Subsequently the patient underwent a another chest tube insertion on the left side to help relieve the pneumothorax. Repeat checks x-ray showed a persistent left apical pneumothorax estimated at 15-20%. A new left-sided chest tube place. Patient is receiving tube feedings through NG tube at this time. She continues to be on propofol at 65 mics per KG per minute and fentanyl drip at 1 nury per KG per hour. Patient also is getting Dilaudid and [place]view as needed for pain. Her brought in opium to help with abdominal discomfort. Vent settings are unchanged the vent setting assist control 16, tidal volume of 350, FiO2 at 35%, and a PEEP of 5. Patient's urinary output is 50-70 mL per hour. Discussed findings with at the bedside in the plan to continue with sedation and intubation to rest the lungs and we will reassess tomorrow for possible weaning. states that this happened a few months ago where she was on prolonged intubation due to her lungs not recovering. 10/29: Patient continues to be sedated and intubated. Chest x-ray does show improvement to bilateral pneumothorax and [address]. Patient has been tachycardic overnight with a rate in the 130s. Patient grimaces in pain and withdraws. Patient continue to see tube feedings through NG tube. She continues to be on propofol and fentanyl for sedation. Patient was on Nimbex overnight however that has been DC'd. Vent settings are unchanged with the vent assist control 16, tidal volume 350, FiO2 at 35%, and a PEEP of 5. Patient 's urinary output continues to be 50-70 ML's per hour. Discussed case with pulmonology and consult for trach and PEG tube is in place. Pulmonology does not feel the patient will be successful in weaning. 10/30/18: Patient is sitting up in bed extubated. Patient was successfully weaned this morning. She is alert and orientated 3 and able to answer questions appropriately. Patient is complaining of pain to the chest due to the 3 chest tubes that are in place. Patient does have a history of Crohn's and discussed the medication she normally takes for them including Humira which we will hold at this time. Patient continues to be on sentinel drip for pain she also is receiving Dilaudid as needed for breakthrough pain. CBC 11.3, hemoglobin 8.7, potassium 4.7 BUN 28 creatinine 0.5. 10/31: Patient remains in the intensive care unit. She was successfully extubated yesterday and is currently pulse ox is 96% on 4 L nasal cannula. White count is 13.1, hemoglobin 9.4, CO2 is 32, electrolytes within normal limits, creatinine 0.54. Sputum cultures positive for Tish albicans. Urine culture finalized with no growth and blood culture showing no growth after 96 hours. Repeat chest x-ray shows 2 chest tubes on the left and one on the right. No appreciable pneumothorax. Relative upper lung lucency suggesting underlying emphysema. Continue small pleural effusions with adjacent atelectasis or consolidations. Cardiothoracic surgery signing off the case is no plan is for trach and PEG placement. Patient remains with 2 left-sided chest tubes in 1 right-sided chest tube. Pulmonary is planning to maintain chest tubes. Solu-Medrol transitioned to prednisone. 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 Ribera catheter is in place draining adequate amount of urine. Ileostomy with dark brown stool. Patient has been seen by GI with recommendations to continue Humira every 2 weeks and can be restarted after discharge the patient had verbalized that she did not want to continue on Humira. Patient is to follow-up with Dr. Verma in the office as scheduled. Patient currently has [facility] home care in place. PT to start working with patient today. [facility]. Home medications will be reviewed. 11/01: Patient remains in the intensive care unit and breathing continues to improve slowly. Pulse ox is 96% on 3 L nasal cannula, heart rates running in the 90s. White count is 13.1, hemoglobin 9.6, creatinine 0.54. Electrolytes within normal limits. Patient is requesting using her home nicotine gum which will be ordered. Sputum culture showing Tish. 11/02: Patient remains in the intensive care unit. Repeat chest x-ray shows bilateral chest tubes remain unchanged. No evidence of sizable pneumothorax within either lung at this time. CAT scan of the chest reveals bilateral pneumothorax disease. Chest tubes are present. Consider reposition a right- sided chest tube. Bilateral apical masses left side is increasing in size. She does have bilateral chest tubes and there is plan for possibly removing the right side in the next couple days. There is a considerable leak on one of the left sided chest tubes in cardiothoracic surgery has been reconsulted. Patient is working with physical therapy and occupational therapy at the bedside. 11/03: Patient remains in the intensive care unit. She has 2 left-sided chest tubes in 1 right-sided chest tube in place. She states she is having cough with sputum production. She is using her incentive spirometry. Overall, she states her breathing is improving slowly. She does complain of chest pain more so on the left side. She does state that yesterday she started having increased stool from her ostomy and feels that she is having a flareup of her Crohn's. She does have opium available. We will start her back on IV fluids to avoid dehydration, monitor electrolytes. Heart rate remains elevated for which Lopressor will be increased to 50 mg twice daily which is her home dose. Verapamil is on hold due to hypotension. 11/04: Patient states that she had a lot of diarrhea yesterday but this seems to be decreasing this morning. She is feeling better from yesterday. She has had good urine output. She states this morning there was bleeding from one of her chest tubes in the bed which has been cleaned up in everything has been changed. Heart rate is remaining elevated. Lopressor is currently at 50 g twice daily. Cardiothoracic surgery does not plan for any surgical intervention. Patient encouraged to use incentive spirometry and increase activity area 11/05: Cardiothoracic surgeon discussed with patient transferred to [facility] for blebectomy and look at lung transplant evaluation. Awaiting clearance from pulmonary medicine and we'll make arrangements to transfer. Patient states her breathing is better today. She states she has been up since 5 AM and walked in the hallway twice and now she's tired. There is less leak on the left chest tube. Magnesium is been replaced. Heart rate is still running in the 120s. She states diarrhea is slowing and a thicker consistency. 11/06: Patient remains with 2 left-sided chest tubes in 1 right-sided chest tube. Patient is followed by pulmonary medicine and cardiothoracic surgery. Respiratory status is stable. Pulse ox is 94% on 1 L nasal cannula. She is using incentive spirometry. She has been afebrile, white count 12.9, hemoglobin 7.5. Creatinine is 0.47, sodium 134 potassium 4.4, chloride 98 and CO2 36. Blood sugars are running between 99 and 170. 11/07: There has been scheduled cardiothoracic surgery and pulmonary medicine regarding transferring the patient whether this should be done now during this hospitalization are stabilized and discharged home and follow-up with [facility]. Consultants to make decision regarding this. Patient states that she is feeling better today she is feeling well but tired. She is found sitting in the ICU bed. All chest tubes and Ribera catheter have been discontinued. Anticipate possible discharge in the next 24 hours. 11/08: Repeat chest x-ray shows better visualization of the apical lateral right pneumothorax estimated 5-10% likely stable from one day earlier. No measurable left-sided pneumothorax. Background of advanced emphysematous change with small bilateral pleural effusion collections and left basilar consolidation and/ or atelectasis are demonstrated. Patient states she is feeling tired today. She is complaining of soreness in her chest possibly from chest compressions. She states she started having chills last night. She states she did not sleep very well. Heart rate 9904, respirations 27, pulse ox 95% on 2 L. Patient is waiting for [facility] care bed. Anticipate possible discharge in the next 24- 48 hrs. Discharge plan is home with [facility] Review Of Systems: Constitutional: Pain to the chest due to chest tube No fever, no chills, no night sweats. No weight change. Reports weakness, fatigue or lethargy. EENT: No headache. No blurred vision or double vision, no loss of vision. No loss of Hearing, no ringing in the ears, no dizziness. No nasal drainage or congestion. No epistaxis. No sore throat. Lungs: No shortness of breath, cough, no sputum production. No wheezing. Cardiovascular: No chest pain, no lower extremity edema. No palpitations. No paroxysmal nocturnal dyspnea. No orthopnea. No lightheadedness or dizziness. No syncopal episodes. Abdominal: no abdominal discomfort. Reports nausea, denies vomiting. Reports diarrhea-improved. No constipation. No bloody or tarry stools. Reports loss of appetite. Genitourinary: No dysuria, increased frequency, urgency. No urinary retention. Musculoskeletal: No myalgias. No muscle weakness, no gait dysfunction, no frequent falls. No back pain. No neck pain. Integumentary: No wounds, no lesions. No rash or pruritus. No unusual bruising. No change in hair or nails. Neurologic: No aphasia. No facial droop. No change in mentation. No head injury. No headache. No paralysis. Psychiatric: No depression. No anxiety. No mood swings. Endocrine: No abnormal blood sugars. Objective - Vital Signs Vital signs: Vital Signs Temp 97.9 F 11/07/18 00:00 Pulse 109 H 11/08/18 07:00 Resp 15 11/08/18 07:00 BP 123/89 11/08/18 07:00 Pulse Ox 95 11/08/18 07:00 Intake & Output 11/07/18 11/08/18 11/08/18 18:59 06:59 18:59 Intake Total 1225 540 Output Total 1000 250 Balance 225 290 Weight 55.6 kg 54.2 kg Intake: IV 165 180 Sodium Chloride 0.9% 1, 165 180 000 ml @ 30 mls/hr IV . Q24H MEENU Rx#:[id number] Intake, IV Titration 460 Amount Magnesium Sulfate-D5w Pmx 460 1 gm In Dextrose/Water 1 100ml.bag @ 100 mls/hr IVPB Q1H MEENU Rx#: [id number] Oral 600 360 Output: Stool 1000 250 Other: Voiding Method Bedside Commode Bedside Commode # Voids 1 1 - Exam General appearance: Present: average body habitus, cooperative, no acute distress. Patient is resting in bed and appears to be comfortable. Patient was sleeping but awakens to verbal stimuli - EENT Eyes: Present: anicteric sclerae, EOMI, PERRLA ENT: Present: hearing grossly normal, NA/AT - Neck Neck: Present: normal ROM. Absent: lymphadenopathy - Respiratory Respiratory: bilateral: diminished, wheezing, no accessory muscle usage negative : dullness, rales, rhonchi, prolonged expiration, prolonged inspiration, other - Cardiovascular Rhythm: regular Heart sounds: normal: S1, S2 Abnormal Heart Sounds: Absent: systolic murmur, diastolic murmur, rub, S3 Gallop , S4 Gallop, click, other - Gastrointestinal General gastrointestinal: Present: normal bowel sounds, soft. Mild generalized tenderness, ileostomy in place - Integumentary Integumentary: Present: pale - Neurologic Neurologic: Present: CNII-XII intact - Musculoskeletal Musculoskeletal: Present: generalized weakness, strength equal bilaterally - Psychiatric Psychiatric: Present: A&O x's 3, appropriate affect, intact judgment & insight - Labs CBC & Chem 7: 11/07/18 05:00 11/07/18 05:00 Labs: Abnormal Lab Results - Last 24 Hours (Table) 11/07/18 11/07/18 11/07/18 Range/Units 12:12 16:55 20:34 POC Glucose (mg/dL) 144 H 188 H 127 H (75-99) mg/dL 11/08/18 Range/Units 07:09 POC Glucose (mg/dL) 104 H (75-99) mg/dL Assessment and Plan Plan: #1 Acute hypoxic respiratory failure secondary to acute exacerbation of severe oxygen dependent chronic obstructive pulmonary disease, complicated by bilateral pneumothorax. Status post bilateral chest tube placements and removal. Patient has been successfully extubated. Continue DuoNeb treatments 4 times daily and as needed, Pulmicort 1 mg twice daily, Perforomist twice daily , prednisone. Pulmonary and Cardiothoracic surgery consult appreciated. Patient will have outpatient follow-up at [facility] for possible blebectomy and lung transplant evaluation #2 Brief cardiac arrest secondary to above responded to epinephrine. #3 Severe advanced chronic obstructive pulmonary disease and bullous emphysema with underlying FEV1 value 36% of predicted. Both oxygen and steroid dependent. Continue Pulmicort, continue prednisone. #4 History of prolonged respiratory failure requiring intubation mechanical ventilation with subsequent tracheostomy and PEG tube placements [facility]. #5 bilateral pneumothorax related to severe advanced stages of COPD and bullous emphysema Chest tubes in place. Repeat chest x-ray #6 Previous history of right-sided pneumothorax 2. #7 Chronic left upper lobe inflammatory opacity. #8 Hyperlipidemia. #9 Hypertension. Continue to monitor blood pressure #10 Chronic normocystic anemia, anemia of chronic disease. Monitor CBC #11 Fibromyalgia. Continue Dilaudid or [place] as needed #12 Generalized anxiety disorder and recurrent depression. #13 History of Crohn's with possible exacerbation. Consult gastroenterology. Continue opium. #14 GI prophylactics Protonix 40 mg po daily #15 DVT prophylaxis heparin 5000 units subcu every 8 hours Discharge plan: Home with [facility] the next 24-48 hours Impression and plan of care have been directed as dictated by the signing physician. Gaby Rothman nurse practitioner acting as scribe for signing physician.
[2018-11-08] MEDS: MAGNESIUM SULFATE-D5W PMX 1 GM in DEXTROSE/WATER 1 100ML.BAG IVPB SCH ×2 (15:30→16:43)
[2018-11-08 16:52] LABS: Glucose,Whole Blood 237 mg/dL (75-99)
[2018-11-08 20:57] LABS: Glucose,Whole Blood 76 mg/dL (75-99)
[2018-11-08] MEDS: MELATONIN 5 MG TABLET PO SCH (21:40)
[2018-11-08] MEDS: SODIUM CHLORIDE 0.9% 1,000 ML IV SCH (21:44)
[2018-11-08] MEDS: LATANOPROST 0.005% OPHTH DROPS 2.5 ML BTL BOTH EYES SCH (22:25)
[2018-11-09] MEDS: HEPARIN SODIUM,PORCINE 5,000 UNIT/ML 1 ML VIAL SQ SCH ×3 (00:07→15:23)
[2018-11-09] MEDS: HYDROcodone/APAP 10-325MG 1 EACH TAB PO PRN ×5 (02:45→21:48)
[2018-11-09 05:02] LABS: Anisocytosis Slight; Basophils % (A) 0 %; Eosinophils # (A) 0.1 k/uL (0-0.7); Eosinophils % (A) 0 %; HCT 28.4 % (34.0-46.0); HGB 9.1 gm/dL (11.4-16.0); Lymphocytes # (A) 2.4 k/uL (1.0-4.8); Lymphocytes % (A) 16 %; MCH 29.3 pg (25.0-35.0); MCHC 32.1 g/dL (31.0-37.0); MCV 91.3 fL (80.0-100.0); Mean Platelet Volume 6.6; Monocytes # (A) 0.9 k/uL (0-1.0); Monocytes % (A) 6 %; Neutrophils # (A) 11.1 k/uL (1.3-7.7); Neutrophils % (A) 76 %; Platelet Count 404 k/uL (150-450); RBC 3.11 m/uL (3.80-5.40); RDW 18.2 % (11.5-15.5); WBC 14.7 k/uL (3.8-10.6)
[2018-11-09 06:03] LABS: Anion Gap 4 mmol/L; Blood Urea Nitrogen 20 mg/dL (7-17); Calcium 9.6 mg/dL (8.4-10.2); Carbon Dioxide 34 mmol/L (22-30); Chloride 100 mmol/L (98-107); Glucose 111 mg/dL (74-99); Potassium 4.2 mmol/L (3.5-5.1); Sodium 138 mmol/L (137-145)
[2018-11-09] MEDS: PANTOPRAZOLE 40 MG TABLET PO SCH (06:38)
[2018-11-09] MEDS: INSULIN ASPART 100 UNIT/ML 1 ML 10 ML VIAL SQ SCH ×4 (06:38→20:54)
[2018-11-09 06:46] LABS: Glucose,Whole Blood 114 mg/dL (75-99)
[2018-11-09] MEDS: IPRATROPIUM-ALBUTEROL 3 ML NEB INHALATION SCH ×4 (07:34→21:10)
[2018-11-09] MEDS: FORMOTEROL FUMARATE 20 MCG/2 ML NEBU INHALATION SCH ×2 (07:34→21:10)
[2018-11-09] MEDS: BUDESONIDE 1 MG/2 ML NEBU INHALATION SCH ×2 (07:34→21:10)
--- NOTE | 2018-11-09 07:34 | XR ---
EXAMINATION TYPE: XR chest 1V portable DATE OF EXAM: 11/09/2018 COMPARISON: 11/08/2018 HISTORY: Pneumothoraces. Difficulty breathing. Follow-up exam. TECHNIQUE: Single frontal view of the chest is obtained. FINDINGS: There is redemonstration of an improving right trace pneumothorax estimated at approximate ly 5%. Extensive background emphysematous changes are redemonstrated, right greater than left. Lobula laura right lower lung opacity may represent loculated pleural effusion or underlying elongated nodule. There is at least a trace right pleural effusion with a layering effect. Bibasilar atelectasis is se en. Cardiomediastinal silhouette is elongated. Left central venous catheter from a subclavian approach is unchanged. The previously questioned left pneumothorax is not definitively seen on today's exam alth ough there is a curvilinear density overlying the third left posterior rib that appears to extend ext ernal to the patient. Multiple healed right lateral rib fractures are noted. IMPRESSION: 1. Improving trace right hydropneumothorax now approximately 5%. Left pneumothorax is not definitivel y identified. 2. Lobulated right lower lung opacity may represent loculated pleural effusion or elongated pulmonary nodule. 3. Extensive emphysematous change.
[2018-11-09] MEDS: DULoxetine HCL 30 MG CAPSULE.DR PO SCH ×2 (08:04→20:56)
[2018-11-09] MEDS: predniSONE 10 MG TAB PO SCH (08:04)
[2018-11-09] MEDS: ALPRAZolam 0.25 MG TAB PO PRN ×2 (08:04→15:22)
[2018-11-09] MEDS: busPIRone HCl 10 MG TAB PO SCH ×3 (08:04→20:56)
[2018-11-09] MEDS: METOPROLOL TARTRATE 50 MG TAB PO SCH ×2 (08:04→20:56)
[2018-11-09] MEDS: NYSTATIN 100,000 UNIT/ML SUSP 500,000 UNIT/5 ML CUP PO SCH ×3 (08:04→18:29)
[2018-11-09] MEDS: GABAPENTIN 300 MG CAP PO SCH ×3 (08:04→20:56)
[2018-11-09] MEDS: DICYCLOMINE 10 MG CAP PO SCH ×3 (08:04→20:56)
[2018-11-09] MEDS: COLCHICINE 0.6 MG EACH PO SCH (08:05)
--- NOTE | 2018-11-09 08:58 | P.PN ---
Subjective Progress Note Date: 11/09/18 Principal diagnosis: Acute hypoxic respiratory failure secondary to COPD and bilateral pneumothoraces This is a 58-year-old female patient who follows with Dr. James as her primary care physician. She has a history of hyperlipidemia, hypothyroidism, anemia, fibromyalgia, anxiety/depression. Chest has a history of severe oxygen- dependent bullous emphysema/COPD with FEV1 value of 36% of predicted and a chronic left upper lobe inflammatory opacity that was nonmalignant. She has a history of prolonged respiratory failure requiring mechanical ventilation and was subsequently trached and [facility]. She had since been decannulated. She's had multiple admissions for COPD exacerbations most recently discharged from here on 10/16/2018. She was brought in by EMS to the emergency room yesterday with severe respiratory distress requiring initially BiPAP support. She was found to have bilateral pneumothorax and chest tubes were placed as well as a left thoravent. She had a brief cardiac arrest requiring epinephrine. She was subsequently intubated and placed on mechanical ventilator and transferred here to the intensive care unit. She is seen today in consultation with current vent settings assist- control of 16, tidal volume 350, FiO2 of 35% and a PEEP of 5. Morning blood gases reveal a P O2 of 85, pCO2 41, pH 7.38. Her measured airway resistance is currently 8.8. She is sedated on to prevent at 30 mcg/kg/m., Fentanyl drip at 1 mcg/kg per hour, 1.9 normal saline at 75 ML's per hour. She does follow simple commands. She is moving all fours. Cultures are pending. White count 7.6. Hemoglobin 10.0. Creatinine 0.69. She's been initiated and DuoNeb inhalations. Patient was reevaluated today on 10/29/2018, remains in the ICU on mechanical ventilation. Patient has been on same ventilator settings, tidal volume of 350 assist-control rate of 16 FiO2 of 35% and PEEP of 5. Patient remains on fentanyl drip, she is also on propofol drip, and both are basically maximized. Last night Dr. Meza placed the patient on Nimbex drip. However I have discontinued the Nimbex drip today, and I will try to control her agitation with fentanyl and propofol only. Patient continues to have left-sided chest tubes, and 1 right sided chest tube, all of them are showing a bit of a leak. Her ABG showed a pO2 of 120 pCO2 of 40 0 pH of 7.44. Basic metabolic profile is normal, WBC count is 10.9 hemoglobin is 9.2. Chest x-ray did show improvement in aeration of the right lung base with persistent left basilar opacity may represent mostly atelectasis or possibly pneumonia. No sizable pneumothorax is noted on both sides. Patient remains on multiple bronchodilators, and on Solu-Medrol. Today I discussed with the nurses and with the admitting physician that it would be best to consider tracheostomy and PEG tube placement since the patient is going to be almost extremely difficult to wean successfully. She had a similar episode in the past, and she did require trache[facility] and [facility]. Patient was reevaluated today on 10/30/2018, remains on mechanical ventilation, still requiring a significant dose of propofol and fentanyl. I have attempted to cut down the fentanyl to 25 mg per hour, and I have cut down the propofol gradually until discontinued. Her ventilator settings were noted to be assist- control rate of 16 FiO2 of 35% tidal volume of 350 and PEEP of 5. Her usual dose of propofol has been about 55 g and the dose of fentanyl was 100 g per hour. After cutting down on both and stopping her up a fall, I was able to give the patient a decent trial of pressure support of 10 and CPAP. Patient looked great and better than expected her chest x-ray was looking better today, her follow-up ABG post half hour at least on pressure support and CPAP looked great, pO2 was 79 pCO2 was 37 pH was 7.47, hence I proceeded to extubating the patient. I felt this is hour window otherwise the patient may require tracheostomy as noted previously. The rest of the labs and the chest x-ray were all reviewed. Electrolytes were normal CBC was relatively normal except for hemoglobin of 8.7. Patient was reevaluated today on 10/31/2018, patient is off mechanical ventilation , she was weaned and extubated successfully yesterday. Patient continues to have significant amount of pain medications on board, continues to be tachycardic, sinus tachycardia rate is in the 130 and 140 range. Continues to have chest tubes on both sides, one the left side and one on the left side. I have adjusted all her medications today, switched most them to oral medication, and change Solu-Medrol to prednisone, added Xanax to control her anxiety, discontinued fentanyl yesterday, and she is presently on IV medication for pain control. Her chest x-ray is showing some improvement, however the patient continues to have leaks in both tubes on both sides. She is on nasal cannula, saturating quite well, seems to be generally weak, and quite tachycardic, extremely anxious and agitated becomes very emotional when discussing her clinical condition. All labs were reviewed WBC count is 13.1 hemoglobin is 9.4 electrolytes and renal profile are normal. Patient was reevaluated today on 11/01/2018, remains in the intensive care unit, on nasal cannula, feeling much better today, breathing easier, seems to have less pain, less shortness of breath, but she continues to have significant air leak specially in one of the tubes on the left side, and minimal air leak on the right sided chest tube. Her tachycardia seems to be much better controlled , her heart rate is in the 90s, her O2 saturation is 96% on 3 L nasal cannula, and her blood pressure is 121/81 with a mean of 94. Labs and chest x-ray were reviewed, patient seems to be less anxious at this point, and all her meds including bronchodilators, steroids, antibiotics, were all addressed accordingly. Considering the significant air leak, and considering his severe COPD/emphysema with significant bullous disease, I have a feeling that the patient is going to have significant difficulty healing from her pneumothorax, and she may eventually require surgical intervention. That is yet to be decided in the next few days. Reevaluated today on 11/02/2018, patient remains in the intensive care unit, continues to have bilateral chest tubes, however the right-sided chest tube showed no leak today, and I have placed the tube on water seal, off wall suction. One of the left-sided chest tubes continues to have a significant amount of leak, hence I consulted thoracic surgery. Patient may eventually require surgical intervention. Overall the patient is doing better than expected, she has been tolerating the extubation well over the last few days. Chest x-ray was reviewed, labs were reviewed, medications were reviewed and the addressed. Discussed her condition also with a thoracic surgeon at bedside. Reevaluated today on 11/03/2018, remains in the intensive care unit, continues to have left-sided chest tube leak, right sided chest tube is off suction, chest x- ray showed no evidence of pneumothorax, CT of the chest showed significant bullous emphysema on both sides. Patient was seen by thoracic surgery on consultation, no plans for intervention at this point, the recommendation was to continue chest tubes on suction. Patient is comfortable, she is not in any form of distress. All her meds and labs were reviewed. Chest x-ray and CT of the chest was reviewed. Reevaluated today on 11/04/2018, basically the patient is about the same, the leak from the left sided chest tube seems to be much less today. And it is intermittent. No leak from the right sided chest tube. Chest x-ray is showing mostly some atelectasis of the right base. She was seen by thoracic surgery again today, and entertaining the possibility of volume reduction surgery, and eventually down the line consider pulmonary transplant. No immediate plans for surgery, patient will be given the option eventually whether she would like to have the surgery done here or in a tertiary care center. This will be decided upon hopefully in the next couple of days. In the meantime the patient is doing relatively well, resting, in no distress. WBC count is 11.7 hemoglobin is 7.5. Electrolytes and renal profile are normal. On 11/05/2018 patient seen again in follow-up in the intensive care unit, she sits up in the recliner, in no acute distress, likely on 1 L per nasal cannula pulse ox of 99%, afebrile, she remains tachycardic, with a heart rate in the 120s BPM, sinus mechanism. Current IV fluids is 0.9 normal saline at a rate of 100 ML per hour, 2 chest tubes on the left to wall suction, with serosanguineous outputs in the Pleur-evac, and one chest tube on the right to water seal. Lung sounds are clear to auscultation, no rhonchi, no wheezing. Today's chest x-ray has been reviewed with Dr. Domínguez, shows persistent small right pleural effusion and bibasilar infiltrate and/or atelectasis. Superior left chest tube has been retracted, and the site port is outside the pleural space. CT surgery is following, possibility of removal of one the chest tubes today. Labs have been reviewed, WBCs 11.9, hemoglobin is 7.1, sodium is 134, potassium is 4.2, chloride is 97, CO2 35, BUN is 12 and creatinine 0.51. Her pain is reasonably controlled, she is working on her incentive spirometer. Blood and urine cultures are negative, sputum culture only showed Tish albicans. Patient is on oral prednisone, and Pulmicort and Perforomist, and nebulized bronchodilators. On October 2018 patient seen again in follow-up in the intensive care unit, she sits up in the recliner, in no acute distress, currently on 2 L per nasal cannula, sats is 93%, patient is afebrile, hemodynamically stable, heart rate is better controlled, with intermittent periods of tachycardia. Lung sounds are diminished breath sounds over right lower base, a few limited crackles over left lower base, patient still has the 2 left-sided pleural chest tubes in place on the left and 1 right-sided pleural chest tube, with some serosanguineous output, all chest tubes are placed to waterseal, repeat chest x- rays pending. CT surgery is following. Today's lab work has been noted, the PVCs 12.9, hemoglobin is 7.5, sodium is 134, potassium is 4.4, chloride is 98 CO2 36, BUN 16 and creatinine 0.47. No worsening dyspnea, patient is working on her incentive spirometer, she does have a loose nonproductive congested cough , she has a valve at the bedside, and she using it. Today's chest x-ray has been reviewed with Dr. Domínguez, shows COPD with left upper lobe nodule, and possibly increasing nodularity at the right base, 2 chest tubes on the left and one chest tube on the right, no appreciable pneumothorax, the site for the left- sided chest tube is outside of the pleural space, small bilateral pleural effusions with adjacent atelectasis. Microbiology has been reviewed, sputum culture with Tish albicans only, no fever or chills, IV steroids have been transitioned to oral prednisone, patient remains on nebulized bronchodilators. On 11/07/2018 patient seen in follow-up in the intensive care unit, she is awake and alert, in no acute distress, denies any difficulty breathing, she is working on her incentive spirometry, able to achieve 750. All chest tubes have been discontinued per CT surgery, this morning's chest x-ray was reviewed with Dr. Meza, and showed trace right residual pneumothorax status post bilateral thoracostomy interval tube removal. New right infrahilar opacity, suspicious for pneumonia, bullous emphysematous changes and trace pleural effusions are stable. Afebrile, on 2 L per nasal cannula she is satting 96%, sinus tachycardia with a rate of 111 BPM. Sputum culture with Tish albicans only. Blood and urine cultures are negative lung sounds are diminished, no rhonchi or wheezes noted. IV fluids 0.9 normal saline at a rate of 30 ML per hour. These labs have been reviewed, WBC is 13.6, hemoglobin is 7.7, sodium is 135, CO2 is 36, BUN is 19 and creatinine 1.60. On 11/08/2018 patient seen in follow-up in the intensive care unit, her chest tubes were discontinued before yesterday, today's chest x-ray was reviewed with Dr. Domínguez, shows apical lateral right pneumothorax estimated to be between 5 and 10%, stable from previous x-rays, no measurable left-sided pneumothorax, background of advanced emphysematous change with small bilateral pleural fluid collections and left basilar consolidation and/or atelectasis. Patient states she didn't sleep well last night, related to cough and pain, she is receiving pain medications in the form of [place], she is working on her incentive spirometer, she is able to achieve [id number] today, she is on breathing medications, Pulmicort and Perforomist, DuoNeb, she is on oral prednisone. She is on 2 L per nasal cannula pulse ox is 95%, heart rate is between 96-109 BPM, afebrile. Sputum culture with Tish albicans, urine and blood culture negative. A bit more wheezy on today's exam. Otherwise no acute distress. Today's chest x-ray has been reviewed with Dr. Domínguez, showed improving trace right hydropneumothorax approximately 5%, right lower lobe opacity presenting pleural effusion, extensive emphysematous changes. On 11/09/2018 patient seen again in follow-up in the intensive care unit, she is awake and alert, oriented 3, on 3 L per nasal cannula, her pulse ox is 94%, she is afebrile, hemodynamically stable, patient does have exertional and conversational dyspnea, otherwise in no distress. Patient is working with physical therapy, although she refused to work with them yesterday, this morning she was to get up in the chair and ambulate, these lab data has been reviewed, WBCs 14.7, hemoglobin is 9.1, sodium is 138, potassium is 4.2, CO2 is 34, B1 is 20 and creatinine 0.59. Blood and urine cultures are negative, sputum culture with Tish albicans only. No fever or chills, lung sounds are diminished, no wheezes or rhonchi today's exam, occasional cough, and patient states at times feels that she is able to bring up some stuff but not expectorate. Objective - Vital Signs Vital signs: Vital Signs Temp 98.3 F 11/09/18 08:00 Pulse 118 H 11/09/18 08:00 Resp 25 H 11/09/18 08:00 BP 109/74 11/09/18 08:00 Pulse Ox 94 L 11/09/18 08:00 Intake & Output 11/08/18 11/09/18 11/09/18 18:59 06:59 18:59 Intake Total 120 Output Total 50 Balance -50 120 Weight 51.5 kg Intake: IV 120 Sodium Chloride 0.9% 1, 120 000 ml @ 30 mls/hr IV . Q24H [facility] Rx#:[id number] Output: Stool 50 Other: Voiding Method Bedside Commode Bedside Commode Bedside Commode # Voids 1 1 # Bowel Movements 1 - Exam Physical Exam: Revealed a 58-year-old female in no distress. Mild conversational dyspnea Head: Atraumatic normocephalic. HEENT:: [No neck masses.] [No thyromegaly.] [No JVD.] Left subclavian central line is noted. Chest: [ Diminished breath sounds. No wheezes, no rhonchi or rales Interval removal of the 2 left-sided pleural chest tubes and at one right-sided pleural chest tube Cardiac Exam: [Normal S1 and S2, no S3 gallop, no murmur.] Abdomen: [Soft, nontender, no megaly, no rebound, no guarding, normal bowel sounds.] Extremities: [No clubbing, no edema, no cyanosis.] Neurological Exam: [No focal neurologic deficit. Extremities no clubbing edema or cyanosis. Lymphatics: No lymphadenopathy.] - Labs CBC & Chem 7: 11/09/18 04:45 11/09/18 04:45 Labs: Abnormal Lab Results - Last 24 Hours (Table) 11/08/18 11/08/18 11/09/18 Range/Units 11:39 16:40 04:45 WBC (3.8-10.6) k/uL RBC (3.80-5.40) m/uL Hgb (11.4-16.0) gm/dL Hct (34.0-46.0) % RDW (11.5-15.5) % Neutrophils # (1.3-7.7) k/uL Carbon Dioxide 34 H (22-30) mmol/L BUN 20 H (7-17) mg/dL Glucose 111 H (74-99) mg/dL POC Glucose (mg/dL) 125 H 237 H (75-99) mg/dL 11/09/18 11/09/18 Range/Units 04:45 06:34 WBC 14.7 H (3.8-10.6) k/uL RBC 3.11 L (3.80-5.40) m/uL Hgb 9.1 L (11.4-16.0) gm/dL Hct 28.4 L (34.0-46.0) % RDW 18.2 H (11.5-15.5) % Neutrophils # 11.1 H (1.3-7.7) k/uL Carbon Dioxide (22-30) mmol/L BUN (7-17) mg/dL Glucose (74-99) mg/dL POC Glucose (mg/dL) 114 H (75-99) mg/dL Assessment and Plan Plan: #1 Acute hypoxic respiratory failure secondary to acute exacerbation of severe oxygen dependent chronic obstructive pulmonary disease, complicated by bilateral pneumothorax. Status post 3 chest tube placements to on the left and one on the right. She currently has 2 chest tubes on the left, and one on the right #2 Brief cardiac arrest secondary to above responded to epinephrine. #3 Severe advanced chronic obstructive pulmonary disease and bullous emphysema with underlying FEV1 value 36% of predicted. Both oxygen and steroid dependent. #4 History of prolonged respiratory failure requiring intubation mechanical ventilation with subsequent tracheostomy and PEG tube placements and [facility] stable. Subsequently decannulated. #5 Previous history of right-sided pneumothorax 2. #6 Chronic left upper lobe inflammatory opacity. #7 Hyperlipidemia. #8 Hypothyroidism. #9 Chronic normocystic anemia. #10 Fibromyalgia. #11 History of anxiety/depression with previous discontinuation of her prescribed medications. #12 successful extubation on 10/30/2018, patient seems to have tolerated the extubation well, however she still has a long way to go. Considering her severe emphysema and her chest tubes, and the ongoing leak in the left sided chest tube, patient will require to remain in the ICU. Patient is being considered for possible volume reduction by thoracic surgery on the case. Plan: Today's chest x-ray has been reviewed with Dr. Meza, shows improving trace right pneumothorax approximately 5%, possible loculated pleural effusion in the right lower lung. Increase activity as tolerated, patient is working with physical therapy, vitals stable, no fever or chills, we will add some Mucinex to help with expectoration of phlegm. Otherwise continue with nebulized bronchodilators, Pulmicort, Perforomist. From pulmonary perspective patient is stable, she is near her baseline, she is awaiting a bed on the stepdown unit, she could be transferred to general medical floor or discharge home today. She is to follow up with Dr. Mistry in the office in 7-10 days. I performed a history & physical examination of the patient and discussed their management with my nurse practitioner, Carmella Jimenez. I reviewed the nurse practitioner's note and agree with the documented findings and plan of care. Lung sounds are positive diminished breath sounds. The findings and the impression was discussed with the patient. I attest to the documentation by the nurse practitioner. Time with Patient: Less than 30
[2018-11-09] MEDS: guaiFENesin 600 MG TABLET.ER PO SCH ×2 (09:35→20:58)
[2018-11-09 11:58] LABS: Glucose,Whole Blood 146 mg/dL (75-99)
--- NOTE | 2018-11-09 12:34 | P.PN ---
Subjective Progress Note Date: 11/09/18 This is a 58-year-old female who follows with Dr. James as her primary care physician. She has a history of hyperlipidemia, hypothyroidism, anemia, fibromyalgia, anxiety/depression, COPD. She presented to the emergency department with dyspnea. Patient was at home when she experienced rest for distress and called EMS. In route to the hospital she was put on a BiPAP due to minimal responsiveness. Upon arrival to the emergency department her initial vital signs were tachycardic with no measurable pulse oximetry and she was hypotensive. Patient was positive for JVD, 1 view chest was obtained for a positive pneumothorax 50% on the left and a possible pneumothorax on the right. A chest tube was placed on the left and patient had failure to respond to treatment. At which CPR was initiated by ACLS protocol for approximately 1 minute. A central line was placed in the left subclavian vein during the code. Patient was intubated. An repeat chest x-ray showed a pneumothorax on the right and a right-sided 24-Mohawk chest tube was placed. Patient's vital signs improved and she was transported to ICU for continuation of care. Patient presents intubated at this time. She is awake and able to answer questions appropriately. Her current vent setting assist control of 16, tidal volume 350 , FiO2 at 35% and a PEEP of 5. Her morning blood gases reveal a pO2 of 85 pCO2 of 41 pH 7.38. H&H is currently sedated with 30 mics per KG per minute of debridement and, fentanyl drip at 1 MCG per KG per hour. Patient is able to follow commands she is able to move all 4 extremities. Her white count is 7.6, hemoglobin of 10, creatinine 0.6. 10/28: Patient continues to be sedated and intubated. Chest x-ray this morning showed significant progression of left-sided pneumothorax estimated at 50%. Left lower lobe pleural catheter appears unchanged in position. It increased subcutaneous air identified. Subsequently the patient underwent a another chest tube insertion on the left side to help relieve the pneumothorax. Repeat checks x-ray showed a persistent left apical pneumothorax estimated at 15-20%. A new left-sided chest tube place. Patient is receiving tube feedings through NG tube at this time. She continues to be on propofol at 65 mics per KG per minute and fentanyl drip at 1 nury per KG per hour. Patient also is getting Dilaudid and [place] as needed for pain. Her brought in opium to help with abdominal discomfort. Vent settings are unchanged the vent setting assist control 16, tidal volume of 350, FiO2 at 35%, and a PEEP of 5. Patient's urinary output is 50-70 mL per hour. Discussed findings with at the bedside in the plan to continue with sedation and intubation to rest the lungs and we will reassess tomorrow for possible weaning. states that this happened a few months ago where she was on prolonged intubation due to her lungs not recovering. 10/29: Patient continues to be sedated and intubated. Chest x-ray does show improvement to bilateral pneumothorax and [address]. Patient has been tachycardic overnight with a rate in the 130s. Patient grimaces in pain and withdraws. Patient continue to see tube feedings through NG tube. She continues to be on propofol and fentanyl for sedation. Patient was on Nimbex overnight however that has been DC'd. Vent settings are unchanged with the vent assist control 16, tidal volume 350, FiO2 at 35%, and a PEEP of 5. Patient 's urinary output continues to be 50-70 ML's per hour. Discussed case with pulmonology and consult for trach and PEG tube is in place. Pulmonology does not feel the patient will be successful in weaning. 10/30/18: Patient is sitting up in bed extubated. Patient was successfully weaned this morning. She is alert and orientated 3 and able to answer questions appropriately. Patient is complaining of pain to the chest due to the 3 chest tubes that are in place. Patient does have a history of Crohn's and discussed the medication she normally takes for them including Humira which we will hold at this time. Patient continues to be on sentinel drip for pain she also is receiving Dilaudid as needed for breakthrough pain. CBC 11.3, hemoglobin 8.7, potassium 4.7 BUN 28 creatinine 0.5. 10/31: Patient remains in the intensive care unit. She was successfully extubated yesterday and is currently pulse ox is 96% on 4 L nasal cannula. White count is 13.1, hemoglobin 9.4, CO2 is 32, electrolytes within normal limits, creatinine 0.54. Sputum cultures positive for Tish albicans. Urine culture finalized with no growth and blood culture showing no growth after 96 hours. Repeat chest x-ray shows 2 chest tubes on the left and one on the right. No appreciable pneumothorax. Relative upper lung lucency suggesting underlying emphysema. Continue small pleural effusions with adjacent atelectasis or consolidations. Cardiothoracic surgery signing off the case is no plan is for trach and PEG placement. Patient remains with 2 left-sided chest tubes in 1 right-sided chest tube. Pulmonary is planning to maintain chest tubes. Solu-Medrol transitioned to prednisone. laboratory monitor is a sinus tachycardia. Ribera catheter is in place draining adequate amount of urine. Ileostomy with dark brown stool. Patient has been seen by GI with recommendations to continue Humira every 2 weeks and can be restarted after discharge the patient had verbalized that she did not want to continue on Humira. Patient is to follow-up with Dr. Verma in the office as scheduled. Patient currently has [facility] home care in place. PT to start working with patient today. Patient has been [facility]. Home medications will be reviewed. 11/01: Patient remains in the intensive care unit and breathing continues to improve slowly. Pulse ox is 96% on 3 L nasal cannula, heart rates running in the 90s. White count is 13.1, hemoglobin 9.6, creatinine 0.54. Electrolytes within normal limits. Patient is requesting using her home nicotine gum which will be ordered. Sputum culture showing Tish. 11/02: Patient remains in the intensive care unit. Repeat chest x-ray shows bilateral chest tubes remain unchanged. No evidence of sizable pneumothorax within either lung at this time. CAT scan of the chest reveals bilateral pneumothorax disease. Chest tubes are present. Consider reposition a right- sided chest tube. Bilateral apical masses left side is increasing in size. She does have bilateral chest tubes and there is plan for possibly removing the right side in the next couple days. There is a considerable leak on one of the left sided chest tubes in cardiothoracic surgery has been reconsulted. Patient is working with physical therapy and occupational therapy at the bedside. 11/03: Patient remains in the intensive care unit. She has 2 left-sided chest tubes in 1 right-sided chest tube in place. She states she is having cough with sputum production. She is using her incentive spirometry. Overall, she states her breathing is improving slowly. She does complain of chest pain more so on the left side. She does state that yesterday she started having increased stool from her ostomy and feels that she is having a flareup of her Crohn's. She does have opium available. We will start her back on IV fluids to avoid dehydration, monitor electrolytes. Heart rate remains elevated for which Lopressor will be increased to 50 mg twice daily which is her home dose. Verapamil is on hold due to hypotension. 11/04: Patient states that she had a lot of diarrhea yesterday but this seems to be decreasing this morning. She is feeling better from yesterday. She has had good urine output. She states this morning there was bleeding from one of her chest tubes in the bed which has been cleaned up in everything has been changed. Heart rate is remaining elevated. Lopressor is currently at 50 g twice daily. Cardiothoracic surgery does not plan for any surgical intervention. Patient encouraged to use incentive spirometry and increase activity area 11/05: Cardiothoracic surgeon discussed with patient transferred to [facility] for blebectomy and look at lung transplant evaluation. Awaiting clearance from pulmonary medicine and we'll make arrangements to transfer. Patient states her breathing is better today. She states she has been up since 5 AM and walked in the hallway twice and now she's tired. There is less leak on the left chest tube. Magnesium is been replaced. Heart rate is still running in the 120s. She states diarrhea is slowing and a thicker consistency. 11/06: Patient remains with 2 left-sided chest tubes in 1 right-sided chest tube. Patient is followed by pulmonary medicine and cardiothoracic surgery. Respiratory status is stable. Pulse ox is 94% on 1 L nasal cannula. She is using incentive spirometry. She has been afebrile, white count 12.9, hemoglobin 7.5. Creatinine is 0.47, sodium 134 potassium 4.4, chloride 98 and CO2 36. Blood sugars are running between 99 and 170. 11/07: There has been scheduled cardiothoracic surgery and pulmonary medicine regarding transferring the patient whether this should be done now during this hospitalization are stabilized and discharged home and follow-up with [facility]. Consultants to make decision regarding this. Patient states that she is feeling better today she is feeling well but tired. She is found sitting in the ICU bed. All chest tubes and Ribera catheter have been discontinued. Anticipate possible discharge in the next 24 hours. 11/08: Repeat chest x-ray shows better visualization of the apical lateral right pneumothorax estimated 5-10% likely stable from one day earlier. No measurable left-sided pneumothorax. Background of advanced emphysematous change with small bilateral pleural effusion collections and left basilar consolidation and/ or atelectasis are demonstrated. Patient states she is feeling tired today. She is complaining of soreness in her chest possibly from chest compressions. She states she started having chills last night. She states she did not sleep very well. Heart rate 9904, respirations 27, pulse ox 95% on 2 L. Patient is waiting for [facility] care bed. Anticipate possible discharge in the next 24- 48 hrs. Discharge plan is home with [facility] 11/09: Patient has been cleared for transfer out of the intensive care unit downgraded to [facility] without telemetry by Dr. Meza. Pulmonary medicine is also cleared the patient for discharge home. We will plan to monitor another night and possible discharge by Monday or Monday. Heart rate continues to run in the low 100s, pulse ox 95% on 1 L. Blood pressure 109/74. WBC 14.7, hemoglobin 9.1, creatinine 0.59, CO2 34. Blood sugars are between 76 and 237. Repeat chest x-ray is improving trace right hydropneumothorax now approximately 5%. Left pneumothorax is not definitely identified. Lobulated right lower lung opacities may represent loculated pleural effusion or a elongated pulmonary nodule. Extensive emphysematous change. Review Of Systems: Constitutional: No fever, no chills, no night sweats. No weight change. Reports weakness, fatigue or lethargy. EENT: No headache. No blurred vision or double vision, no loss of vision. No loss of Hearing, no ringing in the ears, no dizziness. No nasal drainage or congestion. No epistaxis. No sore throat. Lungs: No shortness of breath, cough, no sputum production. No wheezing. Cardiovascular: No chest pain, no lower extremity edema. No palpitations. No paroxysmal nocturnal dyspnea. No orthopnea. No lightheadedness or dizziness. No syncopal episodes. Abdominal: no abdominal discomfort. Reports nausea, denies vomiting. Reports diarrhea-improved. No constipation. No bloody or tarry stools. Reports loss of appetite. Genitourinary: No dysuria, increased frequency, urgency. No urinary retention. Musculoskeletal: No myalgias. No muscle weakness, no gait dysfunction, no frequent falls. No back pain. No neck pain. Integumentary: No wounds, no lesions. No rash or pruritus. No unusual bruising. No change in hair or nails. Neurologic: No aphasia. No facial droop. No change in mentation. No head injury. No headache. No paralysis. Psychiatric: No depression. No anxiety. No mood swings. Endocrine: No abnormal blood sugars. Objective - Vital Signs Vital signs: Vital Signs Temp 98.3 F 11/09/18 08:00 Pulse 118 H 11/09/18 08:00 Resp 25 H 11/09/18 08:00 BP 109/74 11/09/18 08:00 Pulse Ox 94 L 11/09/18 08:00 Intake & Output 11/08/18 11/09/18 11/09/18 18:59 06:59 18:59 Intake Total 120 Output Total 50 Balance -50 120 Weight 51.5 kg Intake: IV 120 Sodium Chloride 0.9% 1, 120 000 ml @ 30 mls/hr IV . Q24H [facility] Rx#:[id number] Output: Stool 50 Other: Voiding Method Bedside Commode Bedside Commode Bedside Commode # Voids 1 1 # Bowel Movements 1 - Exam General appearance: Present: average body habitus, cooperative, no acute distress. Patient is resting in bed and appears to be comfortable. Brother-in- law is at the bedside. - EENT Eyes: Present: anicteric sclerae, EOMI, PERRLA ENT: Present: hearing grossly normal, NA/AT - Neck Neck: Present: normal ROM. Absent: lymphadenopathy - Respiratory Respiratory: bilateral: diminished, wheezing, no accessory muscle usage negative : dullness, rales, rhonchi, prolonged expiration, prolonged inspiration, other - Cardiovascular Rhythm: regular Heart sounds: normal: S1, S2 Abnormal Heart Sounds: Absent: systolic murmur, diastolic murmur, rub, S3 Gallop , S4 Gallop, click, other - Gastrointestinal General gastrointestinal: Present: normal bowel sounds, soft. Mild generalized tenderness, ileostomy in place - Integumentary Integumentary: Present: pale - Neurologic Neurologic: Present: CNII-XII intact - Musculoskeletal Musculoskeletal: Present: generalized weakness, strength equal bilaterally - Psychiatric Psychiatric: Present: A&O x's 3, appropriate affect, intact judgment & insight - Labs CBC & Chem 7: 11/09/18 04:45 11/09/18 04:45 Labs: Abnormal Lab Results - Last 24 Hours (Table) 11/08/18 11/08/18 11/09/18 Range/Units 11:39 16:40 04:45 WBC (3.8-10.6) k/uL RBC (3.80-5.40) m/uL Hgb (11.4-16.0) gm/dL Hct (34.0-46.0) % RDW (11.5-15.5) % Neutrophils # (1.3-7.7) k/uL Carbon Dioxide 34 H (22-30) mmol/L BUN 20 H (7-17) mg/dL Glucose 111 H (74-99) mg/dL POC Glucose (mg/dL) 125 H 237 H (75-99) mg/dL 11/09/18 11/09/18 Range/Units 04:45 06:34 WBC 14.7 H (3.8-10.6) k/uL RBC 3.11 L (3.80-5.40) m/uL Hgb 9.1 L (11.4-16.0) gm/dL Hct 28.4 L (34.0-46.0) % RDW 18.2 H (11.5-15.5) % Neutrophils # 11.1 H (1.3-7.7) k/uL Carbon Dioxide (22-30) mmol/L BUN (7-17) mg/dL Glucose (74-99) mg/dL POC Glucose (mg/dL) 114 H (75-99) mg/dL Assessment and Plan Plan: #1 Acute hypoxic respiratory failure secondary to acute exacerbation of severe oxygen dependent chronic obstructive pulmonary disease, complicated by bilateral pneumothorax. Status post bilateral chest tube placements and removal. Patient has been successfully extubated. Continue DuoNeb treatments 4 times daily and as needed, Pulmicort 1 mg twice daily, Perforomist twice daily , prednisone. Pulmonary and Cardiothoracic surgery consult appreciated. Patient will have outpatient follow-up at [facility] for possible blebectomy and lung transplant evaluation #2 Brief cardiac arrest secondary to above responded to epinephrine. #3 Severe advanced chronic obstructive pulmonary disease and bullous emphysema with underlying FEV1 value 36% of predicted. Both oxygen and steroid dependent. Continue Pulmicort, continue prednisone. #4 History of prolonged respiratory failure requiring intubation mechanical ventilation with subsequent tracheostomy and PEG tube placements [facility]. #5 bilateral pneumothorax related to severe advanced stages of COPD and bullous emphysema Chest tubes in place. Repeat chest x-ray #6 Previous history of right-sided pneumothorax 2. #7 Chronic left upper lobe inflammatory opacity. #8 Hyperlipidemia. #9 Hypertension. Continue to monitor blood pressure #10 Chronic normocystic anemia, anemia of chronic disease. Monitor CBC #11 Fibromyalgia. Continue Dilaudid or [place] as needed #12 Generalized anxiety disorder and recurrent depression. #13 History of Crohn's with possible exacerbation. Consult gastroenterology. Continue opium. #14 GI prophylactics Protonix 40 mg po daily #15 DVT prophylaxis heparin 5000 units subcu every 8 hours Discharge plan: Home with [facility] the next 24 hours Impression and plan of care have been directed as dictated by the signing physician. Gaby Rothman nurse practitioner acting as scribe for signing physician.
[2018-11-09 17:08] LABS: Glucose,Whole Blood 134 mg/dL (75-99)
[2018-11-09] MEDS: MELATONIN 5 MG TABLET PO SCH (20:56)
[2018-11-09] MEDS: LATANOPROST 0.005% OPHTH DROPS 2.5 ML BTL BOTH EYES SCH (20:57)
[2018-11-09 21:01] LABS: Glucose,Whole Blood 140 mg/dL (75-99)
[2018-11-09] MEDS: SODIUM CHLORIDE 0.9% 1,000 ML IV SCH (21:27)
[2018-11-10] MEDS: ALPRAZolam 0.25 MG TAB PO PRN ×3 (00:36→21:54)
[2018-11-10] MEDS: HEPARIN SODIUM,PORCINE 5,000 UNIT/ML 1 ML VIAL SQ SCH ×4 (00:36→21:55)
[2018-11-10] MEDS: HYDROcodone/APAP 10-325MG 1 EACH TAB PO PRN ×5 (03:22→21:53)
[2018-11-10 05:56] LABS: Anisocytosis Slight; HCT 29.3 % (34.0-46.0); HGB 9.7 gm/dL (11.4-16.0); MCH 30.3 pg (25.0-35.0); MCV 91.6 fL (80.0-100.0); Mean Platelet Volume 6.6; Platelet Count 403 k/uL (150-450); WBC 13.2 k/uL (3.8-10.6)
[2018-11-10 06:06] LABS: Anion Gap 3 mmol/L; Blood Urea Nitrogen 24 mg/dL (7-17); Calcium 9.6 mg/dL (8.4-10.2); Carbon Dioxide 33 mmol/L (22-30); Chloride 100 mmol/L (98-107); Glucose 96 mg/dL (74-99); Magnesium 1.5 mg/dL (1.6-2.3); Potassium 4.2 mmol/L (3.5-5.1); Sodium 136 mmol/L (137-145)
[2018-11-10] MEDS ORDERED: Magnesium Replacement Protocol 1 EACH MISC MISCELLANE PRN (06:09)
--- NOTE | 2018-11-10 06:11 | XR ---
EXAMINATION TYPE: XR chest 1V DATE OF EXAM: 11/10/2018 HISTORY: pneumothorax. REFERENCE: Previous study dated 11/09/2018. FINDINGS: No longer see evidence of pneumothorax on the right. There is a miniscule left apical pneum othorax. There is a left subclavian catheter in place. Its tip is at the cavoatrial junction. The lungs are overinflated. There is a right-sided pleural effusion. Nodular density in the right mid lung is more prominent on today's examination. The left lung appears clear. The heart is not enlarged . IMPRESSION: 1. RESOLUTION OF THE PATIENT'S RIGHT-SIDED PNEUMOTHORAX. 2. MINISCULE RESIDUAL LEFT PNEUMOTHORAX. 3. RIGHT-SIDED PLEURAL EFFUSION. 4. RIGHT-SIDED PULMONARY NODULE.
[2018-11-10] MEDS: MAGNESIUM SULFATE-D5W PMX 1 GM in DEXTROSE/WATER 1 100ML.BAG IVPB SCH ×2 (06:36→09:28)
[2018-11-10 06:59] LABS: Glucose,Whole Blood 117 mg/dL (75-99)
[2018-11-10] MEDS: INSULIN ASPART 100 UNIT/ML 1 ML 10 ML VIAL SQ SCH ×4 (07:01→23:26)
[2018-11-10] MEDS: BUDESONIDE 1 MG/2 ML NEBU INHALATION SCH (08:31)
[2018-11-10] MEDS: IPRATROPIUM-ALBUTEROL 3 ML NEB INHALATION SCH ×5 (08:31→19:59)
[2018-11-10] MEDS: FORMOTEROL FUMARATE 20 MCG/2 ML NEBU INHALATION SCH (08:31)
[2018-11-10] MEDS: guaiFENesin 600 MG TABLET.ER PO SCH ×2 (08:58→21:54)
[2018-11-10] MEDS: PANTOPRAZOLE 40 MG TABLET PO SCH (08:58)
[2018-11-10] MEDS: GABAPENTIN 300 MG CAP PO SCH ×3 (08:58→21:54)
[2018-11-10] MEDS: LEVOFLOXACIN 500 MG TAB PO SCH (09:28)
[2018-11-10] MEDS: DULoxetine HCL 30 MG CAPSULE.DR PO SCH ×2 (09:29→23:27)
[2018-11-10] MEDS: COLCHICINE 0.6 MG EACH PO SCH (09:29)
[2018-11-10] MEDS: busPIRone HCl 10 MG TAB PO SCH ×3 (09:29→23:27)
[2018-11-10] MEDS: DICYCLOMINE 10 MG CAP PO SCH ×3 (09:29→23:27)
[2018-11-10] MEDS: predniSONE 10 MG TAB PO SCH (09:32)
[2018-11-10] MEDS: METOPROLOL TARTRATE 50 MG TAB PO SCH ×3 (09:32→21:55)
--- NOTE | 2018-11-10 10:19 | P.PN ---
Subjective Progress Note Date: 11/10/18 This is a 58-year-old female who follows with Dr. James as her primary care physician. She has a history of hyperlipidemia, hypothyroidism, anemia, fibromyalgia, anxiety/depression, COPD. She presented to the emergency department with dyspnea. Patient was at home when she experienced rest for distress and called EMS. In route to the hospital she was put on a BiPAP due to minimal responsiveness. Upon arrival to the emergency department her initial vital signs were tachycardic with no measurable pulse oximetry and she was hypotensive. Patient was positive for JVD, 1 view chest was obtained for a positive pneumothorax 50% on the left and a possible pneumothorax on the right. A chest tube was placed on the left and patient had failure to respond to treatment. At which CPR was initiated by ACLS protocol for approximately 1 minute. A central line was placed in the left subclavian vein during the code. Patient was intubated. An repeat chest x-ray showed a pneumothorax on the right and a right-sided 24-Uzbek chest tube was placed. Patient's vital signs improved and she was transported to ICU for continuation of care. Patient presents intubated at this time. She is awake and able to answer questions appropriately. Her current vent setting assist control of 16, tidal volume 350 , FiO2 at 35% and a PEEP of 5. Her morning blood gases reveal a pO2 of 85 pCO2 of 41 pH 7.38. H&H is currently sedated with 30 mics per KG per minute of debridement and, fentanyl drip at 1 MCG per KG per hour. Patient is able to follow commands she is able to move all 4 extremities. Her white count is 7.6, hemoglobin of 10, creatinine 0.6. 10/28: Patient continues to be sedated and intubated. Chest x-ray this morning showed significant progression of left-sided pneumothorax estimated at 50%. Left lower lobe pleural catheter appears unchanged in position. It increased subcutaneous air identified. Subsequently the patient underwent a another chest tube insertion on the left side to help relieve the pneumothorax. Repeat checks x-ray showed a persistent left apical pneumothorax estimated at 15-20%. A new left-sided chest tube place. Patient is receiving tube feedings through NG tube at this time. She continues to be on propofol at 65 mics per KG per minute and fentanyl drip at 1 nury per KG per hour. Patient also is getting Dilaudid and [place] as needed for pain. Her brought in opium to help with abdominal discomfort. Vent settings are unchanged the vent setting assist control 16, tidal volume of 350, FiO2 at 35%, and a PEEP of 5. Patient's urinary output is 50-70 mL per hour. Discussed findings with at the bedside in the plan to continue with sedation and intubation to rest the lungs and we will reassess tomorrow for possible weaning. states that this happened a few months ago where she was on prolonged intubation due to her lungs not recovering. 10/29: Patient continues to be sedated and intubated. Chest x-ray does show improvement to bilateral pneumothorax and [address]. Patient has been tachycardic overnight with a rate in the 130s. Patient grimaces in pain and withdraws. Patient continue to see tube feedings through NG tube. She continues to be on propofol and fentanyl for sedation. Patient was on Nimbex overnight however that has been DC'd. Vent settings are unchanged with the vent assist control 16, tidal volume 350, FiO2 at 35%, and a PEEP of 5. Patient 's urinary output continues to be 50-70 ML's per hour. Discussed case with pulmonology and consult for trach and PEG tube is in place. Pulmonology does not feel the patient will be successful in weaning. 10/30/18: Patient is sitting up in bed extubated. Patient was successfully weaned this morning. She is alert and orientated 3 and able to answer questions appropriately. Patient is complaining of pain to the chest due to the 3 chest tubes that are in place. Patient does have a history of Crohn's and discussed the medication she normally takes for them including Humira which we will hold at this time. Patient continues to be on sentinel drip for pain she also is receiving Dilaudid as needed for breakthrough pain. CBC 11.3, hemoglobin 8.7, potassium 4.7 BUN 28 creatinine 0.5. 10/31: Patient remains in the intensive care unit. She was successfully extubated yesterday and is currently pulse ox is 96% on 4 L nasal cannula. White count is 13.1, hemoglobin 9.4, CO2 is 32, electrolytes within normal limits, creatinine 0.54. Sputum cultures positive for Tish albicans. Urine culture finalized with no growth and blood culture showing no growth after 96 hours. Repeat chest x-ray shows 2 chest tubes on the left and one on the right. No appreciable pneumothorax. Relative upper lung lucency suggesting underlying emphysema. Continue small pleural effusions with adjacent atelectasis or consolidations. Cardiothoracic surgery signing off the case is no plan is for trach and PEG placement. Patient remains with 2 left-sided chest tubes in 1 right-sided chest tube. Pulmonary is planning to maintain chest tubes. Solu-Medrol transitioned to prednisone. monitoring specialist is a sinus tachycardia. Ribera catheter is in place draining adequate amount of urine. Ileostomy with dark brown stool. Patient has been seen by GI with recommendations to continue Humira every 2 weeks and can be restarted after discharge the patient had verbalized that she did not want to continue on Humira. Patient is to follow-up with Dr. Verma in the office as scheduled. Patient currently has [facility] home care in place. PT to start working with patient today. Patient has been at subacute rehab [facility] well as [facility] in the past. Home medications will be reviewed. 11/01: Patient remains in the intensive care unit and breathing continues to improve slowly. Pulse ox is 96% on 3 L nasal cannula, heart rates running in the 90s. White count is 13.1, hemoglobin 9.6, creatinine 0.54. Electrolytes within normal limits. Patient is requesting using her home nicotine gum which will be ordered. Sputum culture showing Tish. 11/02: Patient remains in the intensive care unit. Repeat chest x-ray shows bilateral chest tubes remain unchanged. No evidence of sizable pneumothorax within either lung at this time. CAT scan of the chest reveals bilateral pneumothorax disease. Chest tubes are present. Consider reposition a right- sided chest tube. Bilateral apical masses left side is increasing in size. She does have bilateral chest tubes and there is plan for possibly removing the right side in the next couple days. There is a considerable leak on one of the left sided chest tubes in cardiothoracic surgery has been reconsulted. Patient is working with physical therapy and occupational therapy at the bedside. 11/03: Patient remains in the intensive care unit. She has 2 left-sided chest tubes in 1 right-sided chest tube in place. She states she is having cough with sputum production. She is using her incentive spirometry. Overall, she states her breathing is improving slowly. She does complain of chest pain more so on the left side. She does state that yesterday she started having increased stool from her ostomy and feels that she is having a flareup of her Crohn's. She does have opium available. We will start her back on IV fluids to avoid dehydration, monitor electrolytes. Heart rate remains elevated for which Lopressor will be increased to 50 mg twice daily which is her home dose. Verapamil is on hold due to hypotension. 11/04: Patient states that she had a lot of diarrhea yesterday but this seems to be decreasing this morning. She is feeling better from yesterday. She has had good urine output. She states this morning there was bleeding from one of her chest tubes in the bed which has been cleaned up in everything has been changed. Heart rate is remaining elevated. Lopressor is currently at 50 g twice daily. Cardiothoracic surgery does not plan for any surgical intervention. Patient encouraged to use incentive spirometry and increase activity area 11/05: Cardiothoracic surgeon discussed with patient transferred to [facility] for blebectomy and look at lung transplant evaluation. Awaiting clearance from pulmonary medicine and we'll make arrangements to transfer. Patient states her breathing is better today. She states she has been up since 5 AM and walked in the hallway twice and now she's tired. There is less leak on the left chest tube. Magnesium is been replaced. Heart rate is still running in the 120s. She states diarrhea is slowing and a thicker consistency. 11/06: Patient remains with 2 left-sided chest tubes in 1 right-sided chest tube. Patient is followed by pulmonary medicine and cardiothoracic surgery. Respiratory status is stable. Pulse ox is 94% on 1 L nasal cannula. She is using incentive spirometry. She has been afebrile, white count 12.9, hemoglobin 7.5. Creatinine is 0.47, sodium 134 potassium 4.4, chloride 98 and CO2 36. Blood sugars are running between 99 and 170. 11/07: There has been scheduled cardiothoracic surgery and pulmonary medicine regarding transferring the patient whether this should be done now during this hospitalization are stabilized and discharged home and follow-up with [facility]. Consultants to make decision regarding this. Patient states that she is feeling better today she is feeling well but tired. She is found sitting in the ICU bed. All chest tubes and Ribera catheter have been discontinued. Anticipate possible discharge in the next 24 hours. 11/08: Repeat chest x-ray shows better visualization of the apical lateral right pneumothorax estimated 5-10% likely stable from one day earlier. No measurable left-sided pneumothorax. Background of advanced emphysematous change with small bilateral pleural effusion collections and left basilar consolidation and/ or atelectasis are demonstrated. Patient states she is feeling tired today. She is complaining of soreness in her chest possibly from chest compressions. She states she started having chills last night. She states she did not sleep very well. Heart rate 9904, respirations 27, pulse ox 95% on 2 L. Patient is waiting for [facility] bed. Anticipate possible discharge in the next 24- 48 hrs. Discharge plan is home with [facility] 11/09: Patient has been cleared for transfer out of the intensive care unit downgraded to [facility] without telemetry by Dr. Meza. Pulmonary medicine is also cleared the patient for discharge home. We will plan to monitor another night and possible discharge by Monday or Monday. Heart rate continues to run in the low 100s, pulse ox 95% on 1 L. Blood pressure 109/74. WBC 14.7, hemoglobin 9.1, creatinine 0.59, CO2 34. Blood sugars are between 76 and 237. Repeat chest x-ray is improving trace right hydropneumothorax now approximately 5%. Left pneumothorax is not definitely identified. Lobulated right lower lung opacities may represent loculated pleural effusion or a elongated pulmonary nodule. Extensive emphysematous change. 11/10: Patient has been transferred to [facility] floor. She is very concerned about a cough that she has now. We will ask for sputum culture be obtained and patient will be started on Levaquin 500 milligrams daily for tracheobronchitis. Chest x-ray this morning reveals resolution of the patient's right-sided pneumothorax. Miniscule residual left pneumothorax. Right-sided pleural effusion. Right-sided pulmonary nodule. Heart rate is still running in the low 100s to 120 and metoprolol will be increased frequency to 3 times daily. Pulse ox is 96% on 2 L. She has been afebrile. White count is 13.2, hemoglobin 9.2, sodium 136, potassium 4.2, chloride 100, CO2 33, BUN 3, creatinine 0.54. Blood sugars run between 117 and 140. Plan to monitor overnight with discharge home tomorrow. Review Of Systems: Constitutional: No fever, no chills, no night sweats. No weight change. Reports weakness, fatigue or lethargy. EENT: No headache. No blurred vision or double vision, no loss of vision. No loss of Hearing, no ringing in the ears, no dizziness. No nasal drainage or congestion. No epistaxis. No sore throat. Lungs: No shortness of breath, reports cough, reports sputum production. No wheezing. Cardiovascular: No chest pain, no lower extremity edema. No palpitations. No paroxysmal nocturnal dyspnea. No orthopnea. No lightheadedness or dizziness. No syncopal episodes. Abdominal: no abdominal discomfort. Reports nausea, denies vomiting. Reports diarrhea-improved. No constipation. No bloody or tarry stools. Reports loss of appetite. Genitourinary: No dysuria, increased frequency, urgency. No urinary retention. Musculoskeletal: No myalgias. No muscle weakness, no gait dysfunction, no frequent falls. No back pain. No neck pain. Integumentary: No wounds, no lesions. No rash or pruritus. No unusual bruising. No change in hair or nails. Neurologic: No aphasia. No facial droop. No change in mentation. No head injury. No headache. No paralysis. Psychiatric: No depression. No anxiety. No mood swings. Endocrine: No abnormal blood sugars. Objective - Vital Signs Vital signs: Vital Signs Temp 97.8 F 11/10/18 04:00 Pulse 111 H 11/10/18 04:00 Resp 16 11/10/18 04:00 BP 110/89 11/10/18 00:00 Pulse Ox 96 11/10/18 04:00 Intake & Output 11/09/18 11/10/18 11/10/18 18:59 06:59 18:59 Intake Total 180 Output Total 50 Balance -50 180 Weight 52 kg Intake: IV 30 Sodium Chloride 0.9% 1, 30 000 ml @ 30 mls/hr IV . Q24H MEENU Rx#:[id number] Oral 150 Output: Stool 50 Other: Voiding Method Bedside Commode Bedside Commode # Voids 1 2 # Bowel Movements 1 - Exam General appearance: Present: average body habitus, cooperative, no acute distress. Patient is resting in bed and appears to be comfortable. - EENT Eyes: Present: anicteric sclerae, EOMI, PERRLA ENT: Present: hearing grossly normal, NA/AT - Neck Neck: Present: normal ROM. Absent: lymphadenopathy - Respiratory Respiratory: bilateral: diminished, wheezing, no accessory muscle usage negative : dullness, rales, rhonchi, prolonged expiration, prolonged inspiration, other Noted cough. - Cardiovascular Rhythm: regular Heart sounds: normal: S1, S2 Abnormal Heart Sounds: Absent: systolic murmur, diastolic murmur, rub, S3 Gallop , S4 Gallop, click, other - Gastrointestinal General gastrointestinal: Present: normal bowel sounds, soft. Mild generalized tenderness, ileostomy in place - Integumentary Integumentary: Present: pale - Neurologic Neurologic: Present: CNII-XII intact - Musculoskeletal Musculoskeletal: Present: generalized weakness, strength equal bilaterally - Psychiatric Psychiatric: Present: A&O x's 3, appropriate affect, intact judgment & insight - Labs CBC & Chem 7: 11/10/18 05:10 11/10/18 05:10 Labs: Abnormal Lab Results - Last 24 Hours (Table) 11/09/18 11/09/18 11/09/18 Range/Units 11:47 16:56 20:49 WBC (3.8-10.6) k/uL RBC (3.80-5.40) m/uL Hgb (11.4-16.0) gm/dL Hct (34.0-46.0) % RDW (11.5-15.5) % Sodium (137-145) mmol/L Carbon Dioxide (22-30) mmol/L BUN (7-17) mg/dL POC Glucose (mg/dL) 146 H 134 H 140 H (75-99) mg/dL Magnesium (1.6-2.3) mg/dL 11/10/18 11/10/18 11/10/18 Range/Units 05:10 05:10 06:47 WBC 13.2 H (3.8-10.6) k/uL RBC 3.20 L (3.80-5.40) m/uL Hgb 9.7 L (11.4-16.0) gm/dL Hct 29.3 L (34.0-46.0) % RDW 18.0 H (11.5-15.5) % Sodium 136 L (137-145) mmol/L Carbon Dioxide 33 H (22-30) mmol/L BUN 24 H (7-17) mg/dL POC Glucose (mg/dL) 117 H (75-99) mg/dL Magnesium 1.5 L (1.6-2.3) mg/dL Assessment and Plan Plan: #1 Acute hypoxic respiratory failure secondary to acute exacerbation of severe oxygen dependent chronic obstructive pulmonary disease, complicated by bilateral pneumothorax. Status post bilateral chest tube placements and removal. Patient has been successfully extubated. Continue DuoNeb treatments 4 times daily and as needed, Pulmicort 1 mg twice daily, Perforomist twice daily , prednisone. Pulmonary and Cardiothoracic surgery consult appreciated. Patient will have outpatient follow-up at [facility] for possible blebectomy and lung transplant evaluation #2 Brief cardiac arrest secondary to above responded to epinephrine. #3 Severe advanced chronic obstructive pulmonary disease and bullous emphysema with underlying FEV1 value 36% of predicted. Both oxygen and steroid dependent. Continue Pulmicort, continue prednisone. #4 History of prolonged respiratory failure requiring intubation mechanical ventilation with subsequent tracheostomy and PEG tube placements [facility]. #5 bilateral pneumothorax related to severe advanced stages of COPD and bullous emphysema Chest tubes in place. Repeat chest x-ray #6 Previous history of right-sided pneumothorax 2. #7 Chronic left upper lobe inflammatory opacity. #8 Hyperlipidemia. #9 Hypertension. Continue to monitor blood pressure #10 Chronic normocystic anemia, anemia of chronic disease. Monitor CBC #11 Fibromyalgia. Continue Dilaudid or [place] as needed #12 Generalized anxiety disorder and recurrent depression. #13 History of Crohn's with possible exacerbation. Consult gastroenterology. Continue opium. #14 GI prophylactics Protonix 40 mg po daily #15 DVT prophylaxis heparin 5000 units subcu every 8 hours 16. Acute tracheobronchitis. Levaquin added. Sputum culture to be sent for culture. 17. Sinus tachycardia. Lopressor increased to 50 mg 3 times daily. Discharge plan: Home with [facility] the next 24 hours Impression and plan of care have been directed as dictated by the signing physician. Gaby Rothman nurse practitioner acting as scribe for signing physician.
[2018-11-10 11:36] LABS: Glucose,Whole Blood 117 mg/dL (75-99)
--- NOTE | 2018-11-10 14:03 | PN ---
PROGRESS NOTE DATE OF SERVICE: 11/10/2018 A 58-year-old female with a history of acute hypoxemic respiratory failure. She has severe COPD. The patient was intubated and mechanically ventilated for a number of days. She is status post successful extubation. She developed bilateral pneumothoraces. She had 1 chest tube in on the right and a couple of chest tubes in on the left. All have been removed. The patient is doing reasonably well. She also has a previous history of prolonged mechanical ventilation requiring tracheostomy and PEG tube placement. In addition, she has a history of hyperlipidemia, hypothyroidism and anemia. She also suffers from anxiety/depression and fibromyalgia. All-in-all, the patient is doing much better. From my perspective, the patient could be discharged home in a few days or so. She is still requiring oxygen therapy. Also, the primary service apparently started her on some antibiotics. PHYSICAL EXAMINATION: Current vital signs include a temperature of 96.9, heart rate 100, respiratory rate 14, blood pressure 109/66 mean 80, and on 2 L nasal cannula saturations are 94%. Appears in no acute distress. Mildly tachypneic. No conversational dyspnea. She is very frail-appearing. HEENT examination is grossly unremarkable. Mucous membranes are moist. Nasal O2 noted. Neck is supple. Full range of motion. No adenopathy or thyromegaly. Neck veins are flat. Cardiovascular examination reveals regular rhythm and rate. S1, S2 normal. Heart rate about 100. No murmur. Lungs reveal severely diminished breath sounds throughout. A few scattered rhonchi. There is some expiratory wheezes. Breath sounds are diminished throughout. Abdomen is soft. Bowel sounds are heard. Extremities are intact. No cyanosis, clubbing, or edema. Skin without rash. Neurologic examination is brief but nonfocal. The patient had a repeat chest x-ray on the . It continues to show a very small residual left pneumothorax, it is apically located. The right-sided pneumothorax has resolved itself. There is a right-sided pleural effusion relatively small and a right- sided pulmonary nodule. This has been seen on a number of x-rays now. LABS: Reviewed. White count 13.2, hemoglobin 9.7, hematocrit 29.3, platelet count 403,000. Sodium 136, potassium 4.2, chloride 100, CO2 is 33, BUN and creatinine were 24 and 0.54. Microbiologic studies are all negative. Levaquin was added by the hospital service. Medications are reviewed. ASSESSMENT: 1. Acute hypoxemic respiratory failure secondary to severe chronic obstructive pulmonary disease exacerbation, status post intubation and mechanical ventilation and subsequent and successful extubation. 2. Status post bilateral pneumothoraces with three chest tubes on the left and one chest tube on the right, all have been removed. 3. Brief cardiac arrest, responsive to chest compressions and epinephrine. 4. Severe advanced chronic obstructive pulmonary disease, bullous in nature, with underlying FEV1 right around the 30% range or so. 5. Oxygen dependent chronic obstructive pulmonary disease. 6. Previous history of prolonged respiratory failure requiring intubation and mechanical ventilation and eventual tracheostomy and PEG tube placement. 7. Previous history of right-sided pneumothorax x2. 8. Chronic left upper lobe inflammatory opacity. 9. Hyperlipidemia. 10.Hypothyroidism. 11.History of anemia. 12.Fibromyalgia. 13.Anxiety/depression. PLAN: The patient is doing well. She was moved out of the ICU yesterday. The primary service has added some Levaquin. I will review her medications. Daily chest x-rays can be discontinued. No additional recommendations are made. Will continue to follow. Likely discharge home in the next 24 to 48 hours. MMODL / IJN: [id number] /
[2018-11-10 17:13] LABS: Glucose,Whole Blood 155 mg/dL (75-99)
[2018-11-10] MEDS: SYMBICORT 160-4.5 MCG INHALER INHALATION SCH (19:59)
[2018-11-10 20:24] LABS: Glucose,Whole Blood 94 mg/dL (75-99)
[2018-11-10 22:30] VITALS: RESP 20
[2018-11-10] MEDS: MELATONIN 5 MG TABLET PO SCH (23:27)
[2018-11-10] MEDS: LATANOPROST 0.005% OPHTH DROPS 2.5 ML BTL BOTH EYES SCH (23:27)
[2018-11-11] MEDS: HYDROcodone/APAP 10-325MG 1 EACH TAB PO PRN ×2 (04:39→08:38)
[2018-11-11 05:22] VITALS: BP 111/64; TEMP 97.8
[2018-11-11 06:58] LABS: Glucose,Whole Blood 89 mg/dL (75-99)
[2018-11-11] MEDS: INSULIN ASPART 100 UNIT/ML 1 ML 10 ML VIAL SQ SCH (07:23)
[2018-11-11] MEDS: PANTOPRAZOLE 40 MG TABLET PO SCH (07:24)
[2018-11-11] MEDS: ALPRAZolam 0.25 MG TAB PO PRN (07:24)
[2018-11-11] MEDS: HEPARIN SODIUM,PORCINE 5,000 UNIT/ML 1 ML VIAL SQ SCH (07:24)
[2018-11-11] MEDS: predniSONE 10 MG TAB PO SCH (07:24)
[2018-11-11] MEDS: DICYCLOMINE 10 MG CAP PO SCH (07:25)
[2018-11-11] MEDS: busPIRone HCl 10 MG TAB PO SCH (07:25)
[2018-11-11] MEDS: LEVOFLOXACIN 500 MG TAB PO SCH (07:25)
[2018-11-11] MEDS: DULoxetine HCL 30 MG CAPSULE.DR PO SCH (07:26)
[2018-11-11] MEDS: GABAPENTIN 300 MG CAP PO SCH (07:26)
[2018-11-11] MEDS: COLCHICINE 0.6 MG EACH PO SCH (07:26)
[2018-11-11] MEDS: METOPROLOL TARTRATE 50 MG TAB PO SCH (07:26)
[2018-11-11] MEDS: guaiFENesin 600 MG TABLET.ER PO SCH (08:37)
--- NOTE | 2018-11-11 08:50 | XR ---
EXAMINATION TYPE: XR chest 2V DATE OF EXAM: 11/11/2018 HISTORY: pneumothorax. REFERENCE: Previous study dated 11/10/2018. FINDINGS: The lungs are overinflated. No pneumothorax is identified at this time. There is persistent nodularity in the left upper lobe. There is right basilar airspace disease. There is a right-sided e ffusion. IMPRESSION: 1. RESOLUTION OF BILATERAL PNEUMOTHORACES. 2. COPD. 3. NODULARITY IN THE LEFT UPPER LOBE. 4. RIGHT BASILAR AIRSPACE DISEASE. 5. RIGHT-SIDED EFFUSION.
[2018-11-11] MEDS ORDERED: MAGNESIUM OXIDE 400 MG TAB PO STA (09:01)
[2018-11-11] MEDS: IPRATROPIUM-ALBUTEROL 3 ML NEB INHALATION SCH (09:03)
[2018-11-11] MEDS: SYMBICORT 160-4.5 MCG INHALER INHALATION SCH (09:03)
[2018-11-11 09:07] VITALS: PULSE 100
--- NOTE | 2018-11-11 10:08 | P.DS ---
Providers Date of admission: 10/26/18 17:42 Expected date of discharge: 11/11/18 Attending physician: Amadeo Sanchez MD Consults: 11/02/18 10:22 Consult Physician Routine Consulting Provider: Ford Duarte Consult Reason/Comments: persistent chest tube air leak Do you want consulting provider notified?: Already Contacted 10/26/18 17:42 Consult Physician Stat Consulting Provider: Michael Meza Consult Reason/Comments: Respiratory failure, mechanical vent, bilateral pneumothoraces. Do you want consulting provider notified?: Already Contacted 10/29/18 10:21 Consult Physician Urgent Consulting Provider: Denny Garcia Consult Reason/Comments: Tachycardia Do you want consulting provider notified?: Yes 10/29/18 11:27 Consult Physician Routine Consulting Provider: Néstor Petersen Consult Reason/Comments: Trach and PEG Do you want consulting provider notified?: Already Contacted Primary care physician: [facility] Course: This is a 58-year-old female who follows with Dr. James as her primary care physician. She has a history of hyperlipidemia, hypothyroidism, anemia, fibromyalgia, anxiety/depression, COPD. She presented to the emergency department with dyspnea. Patient was at home when she experienced rest for distress and called EMS. In route to the hospital she was put on a BiPAP due to minimal responsiveness. Upon arrival to the emergency department her initial vital signs were tachycardic with no measurable pulse oximetry and she was hypotensive. Patient was positive for JVD, 1 view chest was obtained for a positive pneumothorax 50% on the left and a possible pneumothorax on the right. A chest tube was placed on the left and patient had failure to respond to treatment. At which CPR was initiated by ACLS protocol for approximately 1 minute. A central line was placed in the left subclavian vein during the code. Patient was intubated. An repeat chest x-ray showed a pneumothorax on the right and a right-sided 24-Setswana chest tube was placed. Patient's vital signs improved and she was transported to ICU for continuation of care. Patient presents intubated at this time. She is awake and able to answer questions appropriately. Her current vent setting assist control of 16, tidal volume 350 , FiO2 at 35% and a PEEP of 5. Her morning blood gases reveal a pO2 of 85 pCO2 of 41 pH 7.38. H&H is currently sedated with 30 mics per KG per minute of debridement and, fentanyl drip at 1 MCG per KG per hour. Patient is able to follow commands she is able to move all 4 extremities. Her white count is 7.6, hemoglobin of 10, creatinine 0.6. 10/28: Patient continues to be sedated and intubated. Chest x-ray this morning showed significant progression of left-sided pneumothorax estimated at 50%. Left lower lobe pleural catheter appears unchanged in position. It increased subcutaneous air identified. Subsequently the patient underwent a another chest tube insertion on the left side to help relieve the pneumothorax. Repeat checks x-ray showed a persistent left apical pneumothorax estimated at 15-20%. A new left-sided chest tube place. Patient is receiving tube feedings through NG tube at this time. She continues to be on propofol at 65 mics per KG per minute and fentanyl drip at 1 unry per KG per hour. Patient also is getting Dilaudid and Grafton as needed for pain. Her brought in opium to help with abdominal discomfort. Vent settings are unchanged the vent setting assist control 16, tidal volume of 350, FiO2 at 35%, and a PEEP of 5. Patient's urinary output is 50-70 mL per hour. Discussed findings with at the bedside in the plan to continue with sedation and intubation to rest the lungs and we will reassess tomorrow for possible weaning. states that this happened a few months ago where she was on prolonged intubation due to her lungs not recovering. 10/29: Patient continues to be sedated and intubated. Chest x-ray does show improvement to bilateral pneumothorax and [address]. Patient has been tachycardic overnight with a rate in the 130s. Patient grimaces in pain and withdraws. Patient continue to see tube feedings through NG tube. She continues to be on propofol and fentanyl for sedation. Patient was on Nimbex overnight however that has been DC'd. Vent settings are unchanged with the vent assist control 16, tidal volume 350, FiO2 at 35%, and a PEEP of 5. Patient 's urinary output continues to be 50-70 ML's per hour. Discussed case with pulmonology and consult for trach and PEG tube is in place. Pulmonology does not feel the patient will be successful in weaning. 10/30/18: Patient is sitting up in bed extubated. Patient was successfully weaned this morning. She is alert and orientated 3 and able to answer questions appropriately. Patient is complaining of pain to the chest due to the 3 chest tubes that are in place. Patient does have a history of Crohn's and discussed the medication she normally takes for them including Humira which we will hold at this time. Patient continues to be on sentinel drip for pain she also is receiving Dilaudid as needed for breakthrough pain. CBC 11.3, hemoglobin 8.7, potassium 4.7 BUN 28 creatinine 0.5. 10/31: Patient remains in the intensive care unit. She was successfully extubated yesterday and is currently pulse ox is 96% on 4 L nasal cannula. White count is 13.1, hemoglobin 9.4, CO2 is 32, electrolytes within normal limits, creatinine 0.54. Sputum cultures positive for Tish albicans. Urine culture finalized with no growth and blood culture showing no growth after 96 hours. Repeat chest x-ray shows 2 chest tubes on the left and one on the right. No appreciable pneumothorax. Relative upper lung lucency suggesting underlying emphysema. Continue small pleural effusions with adjacent atelectasis or consolidations. Cardiothoracic surgery signing off the case is no plan is for trach and PEG placement. Patient remains with 2 left-sided chest tubes in 1 right-sided chest tube. Pulmonary is planning to maintain chest tubes. Solu-Medrol transitioned to prednisone. school lunch monitor is a sinus tachycardia. Ribera catheter is in place draining adequate amount of urine. Ileostomy with dark brown stool. Patient has been seen by GI with recommendations to continue Humira every 2 weeks and can be restarted after discharge the patient had verbalized that she did not want to continue on Humira. Patient is to follow-up with Dr. Verma in the office as scheduled. Patient currently has [facility] care in place. PT to start working with patient today. [facility] Home medications will be reviewed. 11/01: Patient remains in the intensive care unit and breathing continues to improve slowly. Pulse ox is 96% on 3 L nasal cannula, heart rates running in the 90s. White count is 13.1, hemoglobin 9.6, creatinine 0.54. Electrolytes within normal limits. Patient is requesting using her home nicotine gum which will be ordered. Sputum culture showing Tish. 11/02: Patient remains in the intensive care unit. Repeat chest x-ray shows bilateral chest tubes remain unchanged. No evidence of sizable pneumothorax within either lung at this time. CAT scan of the chest reveals bilateral pneumothorax disease. Chest tubes are present. Consider reposition a right- sided chest tube. Bilateral apical masses left side is increasing in size. She does have bilateral chest tubes and there is plan for possibly removing the right side in the next couple days. There is a considerable leak on one of the left sided chest tubes in cardiothoracic surgery has been reconsulted. Patient is working with physical therapy and occupational therapy at the bedside. 11/03: Patient remains in the intensive care unit. She has 2 left-sided chest tubes in 1 right-sided chest tube in place. She states she is having cough with sputum production. She is using her incentive spirometry. Overall, she states her breathing is improving slowly. She does complain of chest pain more so on the left side. She does state that yesterday she started having increased stool from her ostomy and feels that she is having a flareup of her Crohn's. She does have opium available. We will start her back on IV fluids to avoid dehydration, monitor electrolytes. Heart rate remains elevated for which Lopressor will be increased to 50 mg twice daily which is her home dose. Verapamil is on hold due to hypotension. 11/04: Patient states that she had a lot of diarrhea yesterday but this seems to be decreasing this morning. She is feeling better from yesterday. She has had good urine output. She states this morning there was bleeding from one of her chest tubes in the bed which has been cleaned up in everything has been changed. Heart rate is remaining elevated. Lopressor is currently at 50 g twice daily. Cardiothoracic surgery does not plan for any surgical intervention. Patient encouraged to use incentive spirometry and increase activity area 11/05: Cardiothoracic surgeon discussed with patient transferred to [facility] for blebectomy and look at lung transplant evaluation. Awaiting clearance from pulmonary medicine and we'll make arrangements to transfer. Patient states her breathing is better today. She states she has been up since 5 AM and walked in the hallway twice and now she's tired. There is less leak on the left chest tube. Magnesium is been replaced. Heart rate is still running in the 120s. She states diarrhea is slowing and a thicker consistency. 11/06: Patient remains with 2 left-sided chest tubes in 1 right-sided chest tube. Patient is followed by pulmonary medicine and cardiothoracic surgery. Respiratory status is stable. Pulse ox is 94% on 1 L nasal cannula. She is using incentive spirometry. She has been afebrile, white count 12.9, hemoglobin 7.5. Creatinine is 0.47, sodium 134 potassium 4.4, chloride 98 and CO2 36. Blood sugars are running between 99 and 170. 11/07: There has been scheduled cardiothoracic surgery and pulmonary medicine regarding transferring the patient whether this should be done now during this hospitalization are stabilized and discharged home and follow-up with [facility]. Consultants to make decision regarding this. Patient states that she is feeling better today she is feeling well but tired. She is found sitting in the ICU bed. All chest tubes and Ribera catheter have been discontinued. Anticipate possible discharge in the next 24 hours. 11/08: Repeat chest x-ray shows better visualization of the apical lateral right pneumothorax estimated 5-10% likely stable from one day earlier. No measurable left-sided pneumothorax. Background of advanced emphysematous change with small bilateral pleural effusion collections and left basilar consolidation and/ or atelectasis are demonstrated. Patient states she is feeling tired today. She is complaining of soreness in her chest possibly from chest compressions. She states she started having chills last night. She states she did not sleep very well. Heart rate 9904, respirations 27, pulse ox 95% on 2 L. Patient is waiting for [facility] care bed. Anticipate possible discharge in the next 24- 48 hrs. Discharge plan is home with [facility] 11/09: Patient has been cleared for transfer out of the intensive care unit downgraded to [facility] without telemetry by Dr. Meza. Pulmonary medicine is also cleared the patient for discharge home. We will plan to monitor another night and possible discharge by Monday or Monday. Heart rate continues to run in the low 100s, pulse ox 95% on 1 L. Blood pressure 109/74. WBC 14.7, hemoglobin 9.1, creatinine 0.59, CO2 34. Blood sugars are between 76 and 237. Repeat chest x-ray is improving trace right hydropneumothorax now approximately 5%. Left pneumothorax is not definitely identified. Lobulated right lower lung opacities may represent loculated pleural effusion or a elongated pulmonary nodule. Extensive emphysematous change. 11/10: Patient has been transferred to [facility] floor. She is very concerned about a cough that she has now. We will ask for sputum culture be obtained and patient will be started on Levaquin 500 milligrams daily for tracheobronchitis. Chest x-ray this morning reveals resolution of the patient's right-sided pneumothorax. Miniscule residual left pneumothorax. Right-sided pleural effusion. Right-sided pulmonary nodule. Heart rate is still running in the low 100s to 120 and metoprolol will be increased frequency to 3 times daily. Pulse ox is 96% on 2 L. She has been afebrile. White count is 13.2, hemoglobin 9.2, sodium 136, potassium 4.2, chloride 100, CO2 33, BUN 3, creatinine 0.54. Blood sugars run between 117 and 140. Plan to monitor overnight with discharge home tomorrow. 11/11: Patient states that her cough has resolved today. She denies wheezing or shortness of breath. Repeat chest x-ray is showing no acute findings. Magnesium will be orally replaced today. Patient is ready for discharge and will be discharged home/sister's today in stable condition. Discharge diagnoses: #1 Acute on chronic hypoxic respiratory failure secondary to acute exacerbation of chronic obstructive pulmonary disease, complicated by bilateral pneumothorax. Status post intubation and bilateral chest tube placements and removal and successful extubation. #2 Brief cardiac arrest secondary to above responded to epinephrine. #3 Severe advanced chronic obstructive pulmonary disease and bullous emphysema with underlying FEV1 value 36% of predicted. #4 History of prolonged respiratory failure requiring intubation mechanical ventilation with subsequent tracheostomy and PEG tube placements and [facility]. #5 bilateral pneumothorax related to severe advanced stages of COPD and bullous emphysema #6 Previous history of right-sided pneumothorax 2. #7 Chronic left upper lobe inflammatory opacity. #8 Hyperlipidemia. #9 Hypertension. #10 Chronic normocystic anemia, anemia of chronic disease. #11 Fibromyalgia. #12 Generalized anxiety disorder and recurrent depression. #13 History of Crohn's with possible exacerbation. #14 Acute tracheobronchitis. 15. Sinus tachycardia. Discharge plan: Home with [facility] the next 24 hours Impression and plan of care have been directed as dictated by the signing physician. Gaby Rothman nurse practitioner acting as scribe for signing physician. Patient Condition at Discharge: Good Plan - Discharge Summary Discharge Rx Participant: No New Discharge Prescriptions: New Metoprolol Tartrate [Lopressor] 50 mg PO TID #90 tab Levofloxacin [Levaquin] 500 mg PO DAILY #7 tab Magnesium Oxide [Mag-Ox] 400 mg PO DAILY #30 tablet Continue Adalimumab [Humira Pen] 40 mg SQ TU Latanoprost Ophth [Xalatan 0.005%] 1 drop BOTH EYES DAILY Ondansetron [Zofran] 4 mg PO Q6H PRN PRN Reason: Nausea And Vomiting Dicyclomine [Bentyl] 10 mg PO TID Cyanocobalamin [Vitamin B-12 Injection] 1,000 mcg SQ Q30D Ipratropium-Albuterol Nebulize [Duoneb 0.5 mg-3 mg/3 ml Soln] 3 ml INHALATION RT-Q8H Loperamide [Imodium] 2 mg PO Q6H PRN PRN Reason: Diarrhea Budesonide 1 mg INHALATION RT-BID Gabapentin [Neurontin] 300 mg PO TID Nicotine Polacrilex [Nicorette] 4 mg BUCCAL Q6H PRN PRN Reason: addiction Opium Tincture 10mg/1ml 20 mg PO QID PRN PRN Reason: BOWEL/DIARRHEA ISSUES HYDROcodone/APAP 10-325MG [Grafton 10-325] 1 tab PO Q4H PRN PRN Reason: Pain Colchicine [Colcrys] 0.6 mg PO DAILY #21 each DULoxetine HCL [Cymbalta] 30 mg PO BID #60 capsule. LORazepam [Ativan] 0.25 mg PO TID 3 Days #5 tab Melatonin 15 mg PO HS tablet busPIRone HCl [Buspar] 10 mg PO TID #90 tab Furosemide [Lasix] 20 mg PO DAILY #0 Potassium Chloride ER [K-Dur 20] 10 meq PO DAILY #0 predniSONE See Taper PO DIRECTED Changed Albuterol Nebulized [Ventolin Nebulized] 2.5 mg INHALATION RT-QID PRN #120 nebu PRN Reason: Shortness Of Breath Discontinued Metoprolol Tartrate [Lopressor] 50 mg PO BID #60 tab Nystatin 100,000 Unit/ml Susp [Mycostatin Oral Susp] 500,000 unit PO QID # 120 ml Verapamil [Isoptin] 40 mg PO TID #90 tab Discharge Medication List Adalimumab [Humira Pen] 40 mg SQ TU 06/21/14 [History] Latanoprost Ophth [Xalatan 0.005%] 1 drop BOTH EYES DAILY 05/21/17 [History] Cyanocobalamin [Vitamin B-12 Injection] 1,000 mcg SQ Q30D 07/24/18 [History] Dicyclomine [Bentyl] 10 mg PO TID 07/24/18 [History] Ondansetron [Zofran] 4 mg PO Q6H PRN 07/24/18 [History] Ipratropium-Albuterol Nebulize [Duoneb 0.5 mg-3 mg/3 ml Soln] 3 ml INHALATION RT -Q8H 09/09/18 [History] Loperamide [Imodium] 2 mg PO Q6H PRN 09/09/18 [History] Budesonide 1 mg INHALATION RT-BID 09/27/18 [History] Gabapentin [Neurontin] 300 mg PO TID 09/27/18 [History] HYDROcodone/APAP 10-325MG [Grafton 10-325] 1 tab PO Q4H PRN 09/27/18 [History] Nicotine Polacrilex [Nicorette] 4 mg BUCCAL Q6H PRN 09/27/18 [History] Opium Tincture 10mg/1ml 20 mg PO QID PRN 09/27/18 [History] Colchicine [Colcrys] 0.6 mg PO DAILY #21 each 10/16/18 [Rx] DULoxetine HCL [Cymbalta] 30 mg PO BID #60 josé manuel. 10/16/18 [Rx] Furosemide [Lasix] 20 mg PO DAILY #0 10/16/18 [Rx] LORazepam [Ativan] 0.25 mg PO TID 3 Days #5 tab 10/16/18 [Rx] Melatonin 15 mg PO HS tablet 10/16/18 [Rx] Potassium Chloride ER [K-Dur 20] 10 meq PO DAILY #0 10/16/18 [Rx] busPIRone HCl [Buspar] 10 mg PO TID #90 tab 10/16/18 [Rx] predniSONE See Taper PO DIRECTED 10/26/18 [History] Albuterol Nebulized [Ventolin Nebulized] 2.5 mg INHALATION RT-QID PRN #120 nebu 11/10/18 [Rx] Metoprolol Tartrate [Lopressor] 50 mg PO TID #90 tab 11/10/18 [Rx] Levofloxacin [Levaquin] 500 mg PO DAILY #7 tab 11/11/18 [Rx] Magnesium Oxide [Mag-Ox] 400 mg PO DAILY #30 tablet 11/11/18 [Rx] Follow up Appointment(s)/Referral(s): Bonnie Verma MD [STAFF PHYSICIAN] - 11/26/18 3:30 pm (please call office on Monday to schedule appointment, office is currently closed) Heber James MD [Primary Care Provider] - 1 Week (Please call office on Monday to schedule appointment, office is currently closed) Rickey Verma MD [STAFF PHYSICIAN] - 1 Week (Schedule echocardiogram in [address] Verma following. Please call the office on Monday to schedule ) Jazmine Mistry MD [STAFF PHYSICIAN] - 1 Week (Please call office on Monday to schedule appointment, office is currently closed) Patient Instructions/Handouts: Metoprolol (By mouth), Albuterol (By breathing) , Levofloxacin (By mouth), Magnesium (By mouth), Spontaneous Pneumothorax (DC), Acute Respiratory Distress Syndrome (GEN), COPD (Chronic Obstructive Pulmonary Disease) (DC), MERS (Middle East Respiratory Syndrome) (DC) Discharge Disposition: HOME WITH HOME HEALTH SERVICES
[2018-11-11 11:06] LABS: Glucose,Whole Blood 114 mg/dL (75-99)
--- NOTE | 2018-11-11 12:04 | P.PN ---
Subjective Progress Note Date: 11/11/18 Principal diagnosis: Acute hypoxic respiratory failure secondary to COPD and bilateral pneumothoraces This is a 58-year-old female patient who follows with Dr. James as her primary care physician. She has a history of hyperlipidemia, hypothyroidism, anemia, fibromyalgia, anxiety/depression. Chest has a history of severe oxygen- dependent bullous emphysema/COPD with FEV1 value of 36% of predicted and a chronic left upper lobe inflammatory opacity that was nonmalignant. She has a history of prolonged respiratory failure requiring mechanical ventilation and was subsequently tr[facility] and [facility]. She had since been decannulated. She's had multiple admissions for COPD exacerbations most recently discharged from here on 10/16/2018. She was brought in by EMS to the emergency room yesterday with severe respiratory distress requiring initially BiPAP support. She was found to have bilateral pneumothorax and chest tubes were placed as well as a left thoravent. She had a brief cardiac arrest requiring epinephrine. She was subsequently intubated and placed on mechanical ventilator and transferred here to the intensive care unit. She is seen today in consultation with current vent settings assist- control of 16, tidal volume 350, FiO2 of 35% and a PEEP of 5. Morning blood gases reveal a P O2 of 85, pCO2 41, pH 7.38. Her measured airway resistance is currently 8.8. She is sedated on to prevent at 30 mcg/kg/m., Fentanyl drip at 1 mcg/kg per hour, 1.9 normal saline at 75 ML's per hour. She does follow simple commands. She is moving all fours. Cultures are pending. White count 7.6. Hemoglobin 10.0. Creatinine 0.69. She's been initiated and DuoNeb inhalations. Patient was reevaluated today on 10/29/2018, remains in the ICU on mechanical ventilation. Patient has been on same ventilator settings, tidal volume of 350 assist-control rate of 16 FiO2 of 35% and PEEP of 5. Patient remains on fentanyl drip, she is also on propofol drip, and both are basically maximized. Last night Dr. Meza placed the patient on Nimbex drip. However I have discontinued the Nimbex drip today, and I will try to control her agitation with fentanyl and propofol only. Patient continues to have left-sided chest tubes, and 1 right sided chest tube, all of them are showing a bit of a leak. Her ABG showed a pO2 of 120 pCO2 of 40 0 pH of 7.44. Basic metabolic profile is normal, WBC count is 10.9 hemoglobin is 9.2. Chest x-ray did show improvement in aeration of the right lung base with persistent left basilar opacity may represent mostly atelectasis or possibly pneumonia. No sizable pneumothorax is noted on both sides. Patient remains on multiple bronchodilators, and on Solu-Medrol. Today I discussed with the nurses and with the admitting physician that it would be best to consider tracheostomy and PEG tube placement since the patient is going to be almost extremely difficult to wean successfully. She had a similar episode in the past, and she did require [facility] and [facility]. Patient was reevaluated today on 10/30/2018, remains on mechanical ventilation, still requiring a significant dose of propofol and fentanyl. I have attempted to cut down the fentanyl to 25 mg per hour, and I have cut down the propofol gradually until discontinued. Her ventilator settings were noted to be assist- control rate of 16 FiO2 of 35% tidal volume of 350 and PEEP of 5. Her usual dose of propofol has been about 55 g and the dose of fentanyl was 100 g per hour. After cutting down on both and stopping her up a fall, I was able to give the patient a decent trial of pressure support of 10 and CPAP. Patient looked great and better than expected her chest x-ray was looking better today, her follow-up ABG post half hour at least on pressure support and CPAP looked great, pO2 was 79 pCO2 was 37 pH was 7.47, hence I proceeded to extubating the patient. I felt this is hour window otherwise the patient may require tracheostomy as noted previously. The rest of the labs and the chest x-ray were all reviewed. Electrolytes were normal CBC was relatively normal except for hemoglobin of 8.7. Patient was reevaluated today on 10/31/2018, patient is off mechanical ventilation , she was weaned and extubated successfully yesterday. Patient continues to have significant amount of pain medications on board, continues to be tachycardic, sinus tachycardia rate is in the 130 and 140 range. Continues to have chest tubes on both sides, one the left side and one on the left side. I have adjusted all her medications today, switched most them to oral medication, and change Solu-Medrol to prednisone, added Xanax to control her anxiety, discontinued fentanyl yesterday, and she is presently on IV medication for pain control. Her chest x-ray is showing some improvement, however the patient continues to have leaks in both tubes on both sides. She is on nasal cannula, saturating quite well, seems to be generally weak, and quite tachycardic, extremely anxious and agitated becomes very emotional when discussing her clinical condition. All labs were reviewed WBC count is 13.1 hemoglobin is 9.4 electrolytes and renal profile are normal. Patient was reevaluated today on 11/01/2018, remains in the intensive care unit, on nasal cannula, feeling much better today, breathing easier, seems to have less pain, less shortness of breath, but she continues to have significant air leak specially in one of the tubes on the left side, and minimal air leak on the right sided chest tube. Her tachycardia seems to be much better controlled , her heart rate is in the 90s, her O2 saturation is 96% on 3 L nasal cannula, and her blood pressure is 121/81 with a mean of 94. Labs and chest x-ray were reviewed, patient seems to be less anxious at this point, and all her meds including bronchodilators, steroids, antibiotics, were all addressed accordingly. Considering the significant air leak, and considering his severe COPD/emphysema with significant bullous disease, I have a feeling that the patient is going to have significant difficulty healing from her pneumothorax, and she may eventually require surgical intervention. That is yet to be decided in the next few days. Reevaluated today on 11/02/2018, patient remains in the intensive care unit, continues to have bilateral chest tubes, however the right-sided chest tube showed no leak today, and I have placed the tube on water seal, off wall suction. One of the left-sided chest tubes continues to have a significant amount of leak, hence I consulted thoracic surgery. Patient may eventually require surgical intervention. Overall the patient is doing better than expected, she has been tolerating the extubation well over the last few days. Chest x-ray was reviewed, labs were reviewed, medications were reviewed and the addressed. Discussed her condition also with a thoracic surgeon at bedside. Reevaluated today on 11/03/2018, remains in the intensive care unit, continues to have left-sided chest tube leak, right sided chest tube is off suction, chest x- ray showed no evidence of pneumothorax, CT of the chest showed significant bullous emphysema on both sides. Patient was seen by thoracic surgery on consultation, no plans for intervention at this point, the recommendation was to continue chest tubes on suction. Patient is comfortable, she is not in any form of distress. All her meds and labs were reviewed. Chest x-ray and CT of the chest was reviewed. Reevaluated today on 11/04/2018, basically the patient is about the same, the leak from the left sided chest tube seems to be much less today. And it is intermittent. No leak from the right sided chest tube. Chest x-ray is showing mostly some atelectasis of the right base. She was seen by thoracic surgery again today, and entertaining the possibility of volume reduction surgery, and eventually down the line consider pulmonary transplant. No immediate plans for surgery, patient will be given the option eventually whether she would like to have the surgery done here or in a tertiary care center. This will be decided upon hopefully in the next couple of days. In the meantime the patient is doing relatively well, resting, in no distress. WBC count is 11.7 hemoglobin is 7.5. Electrolytes and renal profile are normal. On 11/05/2018 patient seen again in follow-up in the intensive care unit, she sits up in the recliner, in no acute distress, likely on 1 L per nasal cannula pulse ox of 99%, afebrile, she remains tachycardic, with a heart rate in the 120s BPM, sinus mechanism. Current IV fluids is 0.9 normal saline at a rate of 100 ML per hour, 2 chest tubes on the left to wall suction, with serosanguineous outputs in the Pleur-evac, and one chest tube on the right to water seal. Lung sounds are clear to auscultation, no rhonchi, no wheezing. Today's chest x-ray has been reviewed with Dr. Domínguez, shows persistent small right pleural effusion and bibasilar infiltrate and/or atelectasis. Superior left chest tube has been retracted, and the site port is outside the pleural space. CT surgery is following, possibility of removal of one the chest tubes today. Labs have been reviewed, WBCs 11.9, hemoglobin is 7.1, sodium is 134, potassium is 4.2, chloride is 97, CO2 35, BUN is 12 and creatinine 0.51. Her pain is reasonably controlled, she is working on her incentive spirometer. Blood and urine cultures are negative, sputum culture only showed Tish albicans. Patient is on oral prednisone, and Pulmicort and Perforomist, and nebulized bronchodilators. On October 2018 patient seen again in follow-up in the intensive care unit, she sits up in the recliner, in no acute distress, currently on 2 L per nasal cannula, sats is 93%, patient is afebrile, hemodynamically stable, heart rate is better controlled, with intermittent periods of tachycardia. Lung sounds are diminished breath sounds over right lower base, a few limited crackles over left lower base, patient still has the 2 left-sided pleural chest tubes in place on the left and 1 right-sided pleural chest tube, with some serosanguineous output, all chest tubes are placed to waterseal, repeat chest x- rays pending. CT surgery is following. Today's lab work has been noted, the PVCs 12.9, hemoglobin is 7.5, sodium is 134, potassium is 4.4, chloride is 98 CO2 36, BUN 16 and creatinine 0.47. No worsening dyspnea, patient is working on her incentive spirometer, she does have a loose nonproductive congested cough , she has a valve at the bedside, and she using it. Today's chest x-ray has been reviewed with Dr. Domínguez, shows COPD with left upper lobe nodule, and possibly increasing nodularity at the right base, 2 chest tubes on the left and one chest tube on the right, no appreciable pneumothorax, the site for the left- sided chest tube is outside of the pleural space, small bilateral pleural effusions with adjacent atelectasis. Microbiology has been reviewed, sputum culture with Tish albicans only, no fever or chills, IV steroids have been transitioned to oral prednisone, patient remains on nebulized bronchodilators. On 11/07/2018 patient seen in follow-up in the intensive care unit, she is awake and alert, in no acute distress, denies any difficulty breathing, she is working on her incentive spirometry, able to achieve 750. All chest tubes have been discontinued per CT surgery, this morning's chest x-ray was reviewed with Dr. Meza, and showed trace right residual pneumothorax status post bilateral thoracostomy interval tube removal. New right infrahilar opacity, suspicious for pneumonia, bullous emphysematous changes and trace pleural effusions are stable. Afebrile, on 2 L per nasal cannula she is satting 96%, sinus tachycardia with a rate of 111 BPM. Sputum culture with Tish albicans only. Blood and urine cultures are negative lung sounds are diminished, no rhonchi or wheezes noted. IV fluids 0.9 normal saline at a rate of 30 ML per hour. These labs have been reviewed, WBC is 13.6, hemoglobin is 7.7, sodium is 135, CO2 is 36, BUN is 19 and creatinine 1.60. On 11/08/2018 patient seen in follow-up in the intensive care unit, her chest tubes were discontinued before yesterday, today's chest x-ray was reviewed with Dr. Domínguez, shows apical lateral right pneumothorax estimated to be between 5 and 10%, stable from previous x-rays, no measurable left-sided pneumothorax, background of advanced emphysematous change with small bilateral pleural fluid collections and left basilar consolidation and/or atelectasis. Patient states she didn't sleep well last night, related to cough and pain, she is receiving pain medications in the form of Atlas, she is working on her incentive spirometer, she is able to achieve 500-759 today, she is on breathing medications, Pulmicort and Perforomist, DuoNeb, she is on oral prednisone. She is on 2 L per nasal cannula pulse ox is 95%, heart rate is between 96-109 BPM, afebrile. Sputum culture with Tish albicans, urine and blood culture negative. A bit more wheezy on today's exam. Otherwise no acute distress. Today's chest x-ray has been reviewed with Dr. Domínguez, showed improving trace right hydropneumothorax approximately 5%, right lower lobe opacity presenting pleural effusion, extensive emphysematous changes. On 11/09/2018 patient seen again in follow-up in the intensive care unit, she is awake and alert, oriented 3, on 3 L per nasal cannula, her pulse ox is 94%, she is afebrile, hemodynamically stable, patient does have exertional and conversational dyspnea, otherwise in no distress. Patient is working with physical therapy, although she refused to work with them yesterday, this morning she was to get up in the chair and ambulate, these lab data has been reviewed, WBCs 14.7, hemoglobin is 9.1, sodium is 138, potassium is 4.2, CO2 is 34, B1 is 20 and creatinine 0.59. Blood and urine cultures are negative, sputum culture with Tish albicans only. No fever or chills, lung sounds are diminished, no wheezes or rhonchi today's exam, occasional cough, and patient states at times feels that she is able to bring up some stuff but not expectorate. On 11/11/2018 patient seen again in follow-up on medical surgical floor. Common comfortable, on 2 L per nasal cannula pulse ox is 97%, afebrile, hemodynamically stable. Lung sounds are diminished. His chest x-ray has been reviewed with Dr. Domínguez, and shows resolution of bilateral pneumothoraces. Right basilar airspace disease, likely related to atelectasis and right-sided pleural effusion. Clinically patient is stable, he continues on Symbicort, nebulized bronchodilators, Mucinex he is complaining the course of Levaquin. From pulmonary perspective patient is stable for discharge home today. Objective - Vital Signs Vital signs: Vital Signs Temp 97.8 F 11/11/18 05:21 Pulse 100 11/11/18 09:19 Resp 20 11/11/18 05:21 BP 111/64 11/11/18 05:21 Pulse Ox 97 11/11/18 05:21 Intake & Output 11/10/18 11/11/18 11/11/18 18:59 06:59 18:59 Intake Total 880 480 Output Total 250 50 Balance 630 430 Weight 52 kg 47 kg Intake: IV 30 Sodium Chloride 0.9% 1, 30 000 ml @ 30 mls/hr IV . Q24H MEENU Rx#:[id number] Intake, IV Titration 200 Amount Magnesium Sulfate-D5w Pmx 200 1 gm In Dextrose/Water 1 100ml.bag @ 100 mls/hr IVPB Q1H ME[facility]U Rx#: [id number] Oral 650 480 Output: Urine 200 Stool 50 50 Other: Voiding Method Toilet Toilet # Voids 1 1 - Exam Physical Exam: Revealed a 58-year-old female in no distress. Head: Atraumatic normocephalic. HEENT:: [No neck masses.] [No thyromegaly.] [No JVD.] Left subclavian central line is noted. Chest: [ Diminished breath sounds. No wheezes, no rhonchi or rales Interval removal of the 2 left-sided pleural chest tubes and at one right-sided pleural chest tube Cardiac Exam: [Normal S1 and S2, no S3 gallop, no murmur.] Abdomen: [Soft, nontender, no megaly, no rebound, no guarding, normal bowel sounds.] Extremities: [No clubbing, no edema, no cyanosis.] Neurological Exam: [No focal neurologic deficit. Extremities no clubbing edema or cyanosis. Lymphatics: No lymphadenopathy.] - Labs CBC & Chem 7: 11/10/18 05:10 11/10/18 05:10 Labs: Abnormal Lab Results - Last 24 Hours (Table) 11/10/18 11/11/18 11/11/18 Range/Units 17:12 07:14 11:05 POC Glucose (mg/dL) 155 H 114 H (75-99) mg/dL Magnesium 1.5 L (1.6-2.3) mg/dL Microbiology - Last 24 Hours (Table) 11/10/18 12:00 Catheter Tip Culture - Preliminary Catheter Tip Assessment and Plan Plan: #1 Acute hypoxic respiratory failure secondary to acute exacerbation of severe oxygen dependent chronic obstructive pulmonary disease, complicated by bilateral pneumothorax. Status post 3 chest tube placements to on the left and one on the right. She currently has 2 chest tubes on the left, and one on the right #2 Brief cardiac arrest secondary to above responded to epinephrine. #3 Severe advanced chronic obstructive pulmonary disease and bullous emphysema with underlying FEV1 value 36% of predicted. Both oxygen and steroid dependent. #4 History of prolonged respiratory failure requiring intubation mechanical ventilation with subsequent tracheostomy and PEG tube placements and [facility] stable. Subsequently decannulated. #5 Previous history of right-sided pneumothorax 2. #6 Chronic left upper lobe inflammatory opacity. #7 Hyperlipidemia. #8 Hypothyroidism. #9 Chronic normocystic anemia. #10 Fibromyalgia. #11 History of anxiety/depression with previous discontinuation of her prescribed medications. #12 successful extubation on 10/30/2018, patient seems to have tolerated the extubation well, however she still has a long way to go. Considering her severe emphysema and her chest tubes, and the ongoing leak in the left sided chest tube, patient will require to remain in the ICU. Patient is being considered for possible volume reduction by thoracic surgery on the case. Plan: Today's chest x-ray has been reviewed with Dr. Meza, shows resolution of bilateral pneumothoraces, atelectasis at the right base, with small right pleural effusion, clinically patient is stable, she is improving, breathing easier. Clinically stable, from pulmonary perspective patient is stable for discharge home today. Patient can finish outpatient course of oral antibiotics , prednisone taper, nebulized bronchodilators, and she is to follow-up with Dr. Meza or Dr. Holbrook in the office this week as Dr. Mistry will be on-call this week in the hospital. I performed a history & physical examination of the patient and discussed their management with my nurse practitioner, Carmella Jimenez. I reviewed the nurse practitioner's note and agree with the documented findings and plan of care. Lung sounds are positive diminished breath sounds. The findings and the impression was discussed with the patient. I attest to the documentation by the nurse practitioner. Time with Patient: Less than 30
== END 2018-11-11 12:07 | disposition home health service (06) | DRG 208 ==
LOC: EC 15:29 → 2SICU 17:42 → 3NMEDONC 11-10 07:33
PROVIDERS: ADMIT Internal Medicine; ATTEND Internal Medicine
PROC: 02HV33Z Insertion of Infusion Device into Superior Vena Cava, Percutaneous Approach (ICD-10-PCS; principal; 2018-10-26)
PROC: 5A1945Z Respiratory Ventilation, 24-96 Consecutive Hours (ICD-10-PCS; 2018-10-26)
PROC: 0W9B30Z Drainage of Left Pleural Cavity with Drainage Device, Percutaneous Approach (ICD-10-PCS; 2018-10-26)
PROC: 0W9930Z Drainage of Right Pleural Cavity with Drainage Device, Percutaneous Approach (ICD-10-PCS; 2018-10-26)
PROC: 5A12012 Performance of Cardiac Output, Single, Manual (ICD-10-PCS; 2018-10-26)
PROC: 0BH17EZ Insertion of Endotracheal Airway into Trachea, Via Natural or Artificial Opening (ICD-10-PCS; 2018-10-26)
PROC: 0W9B30Z Drainage of Left Pleural Cavity with Drainage Device, Percutaneous Approach (ICD-10-PCS; 2018-10-29)
DX: J96.21 Acute and chronic respiratory failure with hypoxia (principal); I46.9 Cardiac arrest, cause unspecified; F33.9 Major depressive disorder, recurrent, unspecified; J44.0 Chronic obstructive pulmonary disease with (acute) lower respiratory infection; J44.1 Chronic obstructive pulmonary disease with (acute) exacerbation; J90 Pleural effusion, not elsewhere classified; J95.812 Postprocedural air leak; J98.11 Atelectasis; K50.00 Crohn's disease of small intestine without complications; T79.7XXA Traumatic subcutaneous emphysema, initial encounter; J93.9 Pneumothorax, unspecified; Z99.11 Dependence on respirator [ventilator] status; D63.8 Anemia in other chronic diseases classified elsewhere; E03.9 Hypothyroidism, unspecified; E78.5 Hyperlipidemia, unspecified; F41.1 Generalized anxiety disorder; I10 Essential (primary) hypertension; J20.9 Acute bronchitis, unspecified; K21.9 Gastro-esophageal reflux disease without esophagitis; M79.7 Fibromyalgia; M81.0 Age-related osteoporosis without current pathological fracture; Y83.8 Other surgical procedures as the cause of abnormal reaction of the patient, or of later complication, without mention of misadventure at the time of the procedure; Z79.52 Long term (current) use of systemic steroids; Z87.891 Personal history of nicotine dependence; Z79.899 Other long term (current) drug therapy; Z80.8 Family history of malignant neoplasm of other organs or systems; Z82.49 Family history of ischemic heart disease and other diseases of the circulatory system; Z82.5 Family history of asthma and other chronic lower respiratory diseases; Z83.3 Family history of diabetes mellitus; Z87.01 Personal history of pneumonia (recurrent); Z90.710 Acquired absence of both cervix and uterus; Z90.721 Acquired absence of ovaries, unilateral; Z99.81 Dependence on supplemental oxygen; Z88.2 Allergy status to sulfonamides; Z88.8 Allergy status to other drugs, medicaments and biological substances; Z88.6 Allergy status to analgesic agent; Z91.041 Radiographic dye allergy status; Z82.3 Family history of stroke; Z93.2 Ileostomy status; Z90.49 Acquired absence of other specified parts of digestive tract; M15.9 Polyosteoarthritis, unspecified; Z82.61 Family history of arthritis; I95.9 Hypotension, unspecified
CPT/HCPCS: 31500; 32551; 36415; 36556; 36600; 51702; 71045; 71046; 71250; 80048; 80053; 81001; 82550; 82553; 82805; 83036; 83605; 83735; 83880; 84100; 84484; 85025; 85027; 85610; 85730; 87040; 87070; 87086; 87205; 92950; 94002; 94003; 94640; 96361; 96365; 96375; 96376; 99291; 99292

== ENCOUNTER 2018-11-29 15:43 | Inpatient (IN) | payer BC ==
[2018-11-29] MEDS ORDERED: HYDROmorphone 0.5 MG/0.5 ML SYRINGE IVP STA (16:03)
[2018-11-29] MEDS ORDERED: ALBUTEROL NEBULIZED 2.5 MG/3 ML INHALATION STA (16:05)
[2018-11-29] MEDS ORDERED: DEXAMETHASONE SOD PHOSPHATE 10 MG/ML 1 ML VIAL IV STA (16:05)
[2018-11-29] MEDS ORDERED: CEFEPIME 2 GM in SODIUM CHLORIDE 0.9% 50 ML IVPB STA (16:11)
--- NOTE | 2018-11-29 16:22 | XR ---
EXAMINATION TYPE: XR chest 1V portable DATE OF EXAM: 11/29/2018 Comparison: 11/11/2018 Clinical History: 58-year-old female Pain, rule out pneumothorax, tachypnea Findings: Heart normal size. Advanced emphysema. Scattered pleural parenchymal opacities. There is possibility of lung markings in the upper lobe. Possible pleural edge medial aspect of the right upper hemithorax and at the medial right base. Possible small right pleural effusion. Also right-sided rib fracture d eformities. Impression: Advanced emphysema with asymmetric hyperinflation of the right hemithorax. Paucity of lung markings o n the right. Possible pleural edges medial right upper hemithorax and medial right base as well bring s suspicion of underlying pneumothorax. There may be a trace right effusion. Contrast-enhanced CT to further evaluate for potential underlying pneumothorax.
[2018-11-29 16:24] LABS: Anisocytosis Slight; Basophils # (A) 0.1 k/uL (0-0.2); Basophils % (A) 0 %; Eosinophils # (A) 0.3 k/uL (0-0.7); Eosinophils % (A) 1 %; HCT 33.6 % (34.0-46.0); HGB 10.5 gm/dL (11.4-16.0); Hypochromasia Slight; Lymphocytes % (A) 5 %; MCH 28.6 pg (25.0-35.0); MCHC 31.1 g/dL (31.0-37.0); Mean Platelet Volume 6.9; Monocytes # (A) 0.9 k/uL (0-1.0); Monocytes % (A) 4 %; Neutrophils # (A) 19.1 k/uL (1.3-7.7); Neutrophils % (A) 88 %; Platelet Count 301 k/uL (150-450); RBC 3.65 m/uL (3.80-5.40); RDW 17.6 % (11.5-15.5); WBC 21.6 k/uL (3.8-10.6)
[2018-11-29] MEDS ORDERED: SODIUM CHLORIDE 0.9% 500 ML 500 ML IV ONE ×2 (16:25→17:44)
[2018-11-29 16:34] LABS: ALT 35 U/L (9-52); AST 23 U/L (14-36); Albumin 3.3 g/dL (3.5-5.0); Alkaline Phosphatase 218 U/L (38-126); Blood Urea Nitrogen 15 mg/dL (7-17); Calcium 9.5 mg/dL (8.4-10.2); Chloride 92 mmol/L (98-107); Glucose 147 mg/dL (74-99); Magnesium 1.5 mg/dL (1.6-2.3); Potassium 4.4 mmol/L (3.5-5.1); Sodium 139 mmol/L (137-145); Total Bilirubin 0.5 mg/dL (0.2-1.3); Total Protein 5.7 g/dL (6.3-8.2)
[2018-11-29 16:38] LABS: Creatine Kinase <20 U/L (30-135)
[2018-11-29 16:40] LABS: Anion Gap 5 mmol/L
[2018-11-29 16:45] LABS: INR 0.9 (<1.2); Prothrombin Time 10.2 sec (9.0-12.0)
[2018-11-29 16:49] LABS: Carbon Dioxide 42 mmol/L (22-30)
[2018-11-29 16:51] LABS: Creatine Kinase MB 1.7 ng/mL (0.0-2.4); Troponin I 0.024 ng/mL (0.000-0.034)
--- NOTE | 2018-11-29 16:58 | CT ---
EXAMINATION TYPE: CT chest wo con DATE OF EXAM: 11/29/2018 COMPARISON: November 02, 2018 HISTORY: SOB, congestion CT DLP: 169.9 mGycm. Automated Exposure Control for Dose Reduction was Utilized. TECHNIQUE: CT scan of the thorax is performed without IV contrast. FINDINGS: There is severe bullous emphysema with a very large bulla occupying a large portion of the right lung field. There is patchy scarring and atelectasis in both lungs and more on the right side. There is m ild thickening of the right shoulder. I see no definite pneumothorax. Heart size is normal. Trachea i s midline. There is no mediastinal adenopathy. There are no hilar masses. There is some infiltrate an d atelectasis at the right pulmonary hilum extending into the right lower lobe paraspinal region. The re is a 3 x 2 cm irregular cavitating infiltrate in the left upper lobe posteriorly. This appears not significantly different than the last CT scan. There is no pleural effusion. There is mild thoracic kyphosis with anterior wedging of mid thoracic vertebra at T8 and T6 and T5. There is no adrenal mass. The upper abdominal soft tissues are unremarkable. IMPRESSION: Severe bullous emphysema. I see no definite pneumothorax. There is clearing of the bilat eral small pneumothoraces compared to last exam. Stable cavitating infiltrate left upper lobe. There is significant clearing of the pleural fluid and infiltrates at the lung bases compared to last exam. I see no increasing pulmonary density compared t o last exam. There are new multiple thoracic mild compression fractures compared to old exam consistent with osteo porosis.
[2018-11-29] MEDS ORDERED: HYDROmorphone 1 MG/ML 1 ML SYRINGE IVP STA (17:09)
[2018-11-29] MEDS ORDERED: ACETAMINOPHEN TAB 325 MG TAB PO PRN (17:40)
[2018-11-29] MEDS ORDERED: NALOXONE 0.4 MG/ML 1 ML VIAL IV PRN (17:40)
[2018-11-29] MEDS ORDERED: IPRATROPIUM-ALBUTEROL 3 ML NEB INHALATION PRN (17:40)
[2018-11-29] MEDS ORDERED: ALBUTEROL NEBULIZED 2.5 MG/3 ML INHALATION PRN ×2 (17:43→20:23)
--- NOTE | 2018-11-29 17:47 | ED ---
General Adult HPI - General Chief complaint: Shortness of Breath Stated complaint: SELENA Time Seen by Provider: 11/29/18 15:50 Source: patient, family, EMS, RN notes reviewed, old records reviewed Mode of arrival: EMS Limitations: no limitations - History of Present Illness Initial comments: 58-year-old female history of COPD, on home oxygen presenting with severe dyspnea. Patient had recent admission to hospital with bilateral pneumothorax, cardiac arrest, COPD exacerbation. She subsequently had chest tubes removed and was discharged home. She states she began feeling progressive dyspnea and cough over the past 4 days. This significantly worsened today. She does report chest pain, worse with deep inspiration. No abdominal pain. No vomiting. No fever or chills. - Related Data Home Medications Medication Instructions Recorded Confirmed Latanoprost Ophth [Xalatan 0.005%] 1 drop BOTH EYES HS 05/21/17 11/29/18 Cyanocobalamin [Vitamin B-12 1,000 mcg SQ Q30D 07/24/18 11/29/18 Injection] Dicyclomine [Bentyl] 10 mg PO TID 07/24/18 11/29/18 Budesonide 1 mg INHALATION RT-BID PRN 09/27/18 11/29/18 Gabapentin [Neurontin] 300 mg PO TID 09/27/18 11/29/18 HYDROcodone/APAP 10-325MG [[place] 1 tab PO Q4H PRN 09/27/18 11/29/18 10-325] Opium Tincture 10mg/1ml 20 mg PO QID PRN 09/27/18 11/29/18 Aclidinium [place] [Tudorza 1 puff INHALATION RT-BID 11/29/18 11/29/18 Pressair] Calcium Gummy 500mg 500 mg PO DAILY 11/29/18 11/29/18 Cholecalciferol (Vitamin D3) 2,000 unit PO DAILY 11/29/18 11/29/18 [Vitamin D3] Fluticasone/Vilanterol [Breo 1 puff INHALATION RT-DAILY 11/29/18 11/29/18 Ellipta 200-25 Mcg INH] Guaifen/Phenyleph/Acetaminophn 10 ml PO Q6H PRN 11/29/18 11/29/18 [Mucinex Sinus-Max Severe Liq] Mercaptopurine [Purinethol] 50 mg PO BID 11/29/18 11/29/18 Multivitamins, Thera [Multivitamin 1 tab PO DAILY 11/29/18 11/29/18 (formulary)] busPIRone HCl [Buspar] 10 mg PO BID 11/29/18 11/29/18 Previous Rx's Medication Instructions Recorded Colchicine [Colcrys] 0.6 mg PO DAILY #21 each 10/16/18 DULoxetine HCL [Cymbalta] 30 mg PO BID #60 capsule. 10/16/18 Melatonin 15 mg PO HS tablet 10/16/18 Albuterol Nebulized [Ventolin 2.5 mg INHALATION RT-QID PRN #120 11/10/18 Nebulized] nebu Metoprolol Tartrate [Lopressor] 50 mg PO TID #90 tab 11/10/18 Magnesium Oxide [Mag-Ox] 400 mg PO DAILY #30 tablet 11/11/18 Allergies Allergy/AdvReac Type Severity Reaction Status Date / Time Iodinated Contrast- Oral and Allergy Anaphylaxis Verified 11/29/18 16:31 IV Dye pregabalin [From Lyrica] Allergy Unknown Verified 11/29/18 16:31 rofecoxib [From Vioxx] Allergy Unknown Verified 11/29/18 16:31 Sulfa (Sulfonamide Allergy Rash/Hives Verified 11/29/18 16:31 Antibiotics) aspirin AdvReac Internal Verified 11/29/18 16:31 Bleeding timolol [Timolol] AdvReac Nausea & Verified 11/29/18 16:31 Vomiting Review of Systems ROS Statement: Those systems with pertinent positive or pertinent negative responses have been documented in the HPI. ROS Other: All systems not noted in ROS Statement are negative. Past Medical History Past Medical History: COPD, Fibromyalgia, GERD/Reflux, GI Bleed, Hyperlipidemia , Hypertension, Osteoarthritis (OA), Pneumonia, Syncope Additional Past Medical History / Comment(s): in past took meds for high blood pressure.COPD-02 3 liters n/c atc, crohn's, bowel obstructions, lower GI bleeds , hiatal hernia, osteoporosis, arthritis multiple joints, seasonal allergies, right-sided pneumothorax x2; ventilator 07/24/18 - transfer from [facility] r/t bollas History of Any Multi-Drug Resistant Organisms: None Reported Past Surgical History: Breast Surgery, Cholecystectomy, Hernia Repair, Hysterectomy, Orthopedic Surgery Additional Past Surgical History / Comment(s): Multiple bowel surgeries including total colectomy/ileostomy, ileostomy moved/repaired, R tube and R ovary removed due tectopic , total hysterectomy, leep procedure, laparoscopy for endometriosis, L breast lumpectomy-benign, r breast core bx- benign, EGD/colonoscopies. Right-sided Thora-vent placement May 09 and May 19. Eye surgery bilateral,arthroscopic knee surgery on he right due to ACL and Maniscal tear. past mechanical ventilator dependence,( trach and peg tube-since removed) Past Anesthesia/Blood Transfusion Reactions: No Reported Reaction Past Psychological History: Anxiety, Depression Smoking Status: Former smoker Past Alcohol Use History: None Reported Past Drug Use History: None Reported - Past Family History Mother Family Medical History: Cancer, COPD, Hypertension Additional Family Medical History / Comment(s): Mother at age 83 from COPD and osteoarthritis and had skin cancer. Father Family Medical History: Cancer, CVA/TIA, Dementia, Diabetes Mellitus Additional Family Medical History / Comment(s): Father is 90yrs old. Brother(s) Family Medical History: Cancer Additional Family Medical History / Comment(s): Patient had 5 brothers and one of them from melanoma at age 41. Sister(s) History Unknown: Yes Family Medical History: No Reported History Additional Family Medical History / Comment(s): Patient has one sister. Patient has no kids. General Exam Limitations: no limitations General appearance: alert, in distress Head exam: Present: atraumatic, normocephalic Eye exam: Present: normal appearance, PERRL Respiratory exam: Present: respiratory distress, wheezes, decreased breath sounds Cardiovascular Exam: Present: normal rhythm, tachycardia, JVD GI/Abdominal exam: Present: soft. Absent: distended, tenderness, guarding Extremities exam: Present: normal capillary refill. Absent: pedal edema Neurological exam: Present: alert, oriented X3, CN II-XII intact. Absent: motor sensory deficit Psychiatric exam: Present: anxious Skin exam: Present: warm, dry, intact Course Vital Signs 11/29/18 11/29/18 11/29/18 15:54 16:12 16:34 Temperature 99.1 F Pulse Rate 129 H 148 H 151 H Respiratory 26 H 24 22 Rate Blood Pressure 141/98 O2 Sat by Pulse 96 Oximetry EKG Findings - EKG Comments: EKG Findings:: EKG: Sinus tachycardia, rate of 139, CO interval 126, QRS duration 60, QTC 419, no ST segment changes, poor baseline secondary to tremor Medical Decision Making - Medical Decision Making 58-year-old female presenting in severe respiratory distress, recent bilateral pneumothorax, history of severe COPD on home oxygen. Single view chest is obtained, negative for pneumothorax, there is some clinical suspicion, CT is obtained, shows severe bullous emphysema, no pneumothorax, there is left Obtaining infiltrate. I did discuss case with Dr. Meza who is very familiar with this patient, recommend placement in ICU for close monitoring, treatment of COPD, and additional consult for cardiothoracic surgery. Case discussed with admitting physician Dr. Siddiqui will accept. Patient has significantly elevated white blood cell count 21.6, will call her with antibiotics for healthcare associated pneumonia. Hemoglobin is stable 10.5 which is improved from previous 9.7. CO2 elevated at 42 consistent with chronic CO2 retention. Normal lactic acid. - Lab Data Result diagrams: 11/29/18 15:57 11/29/18 15:57 Lab Results 11/29/18 11/29/18 11/29/18 Range/Units 15:57 15:57 15:57 WBC 21.6 H (3.8-10.6) k/uL RBC 3.65 L (3.80-5.40) m/uL Hgb 10.5 L (11.4-16.0) gm/dL Hct 33.6 L (34.0-46.0) % MCV 92.0 (80.0-100.0) fL MCH 28.6 (25.0-35.0) pg MCHC 31.1 (31.0-37.0) g/dL RDW 17.6 H (11.5-15.5) % Plt Count 301 (150-450) k/uL Neutrophils % 88 % Lymphocytes % 5 % Monocytes % 4 % Eosinophils % 1 % Basophils % 0 % Neutrophils # 19.1 H (1.3-7.7) k/uL Lymphocytes # 1.0 (1.0-4.8) k/uL Monocytes # 0.9 (0-1.0) k/uL Eosinophils # 0.3 (0-0.7) k/uL Basophils # 0.1 (0-0.2) k/uL Hypochromasia Slight Anisocytosis Slight PT (9.0-12.0) sec INR (<1.2) APTT (22.0-30.0) sec Sodium 139 (137-145) mmol/L Potassium 4.4 (3.5-5.1) mmol/L Chloride 92 L (98-107) mmol/L Carbon Dioxide 42 H* (22-30) mmol/L Anion Gap 5 mmol/L BUN 15 (7-17) mg/dL Creatinine 0.62 (0.52-1.04) mg/dL Est GFR (CKD-EPI)AfAm >90 (>60 ml/min/1.73 sqM) Est GFR (CKD-EPI)NonAf >90 (>60 ml/min/1.73 sqM) Glucose 147 H (74-99) mg/dL Plasma Lactic Acid Josep (0.7-2.0) mmol/L Calcium 9.5 (8.4-10.2) mg/dL Magnesium 1.5 L (1.6-2.3) mg/dL Total Bilirubin 0.5 (0.2-1.3) mg/dL AST 23 (14-36) U/L ALT 35 (9-52) U/L Alkaline Phosphatase 218 H (38-126) U/L Total Creatine Kinase <20 L (30-135) U/L CK-MB (CK-2) 1.7 (0.0-2.4) ng/mL CK-MB (CK-2) Rel Index Troponin I 0.024 (0.000-0.034) ng/mL Total Protein 5.7 L (6.3-8.2) g/dL Albumin 3.3 L (3.5-5.0) g/dL 11/29/18 11/29/18 Range/Units 15:57 15:57 WBC (3.8-10.6) k/uL RBC (3.80-5.40) m/uL Hgb (11.4-16.0) gm/dL Hct (34.0-46.0) % MCV (80.0-100.0) fL MCH (25.0-35.0) pg MCHC (31.0-37.0) g/dL RDW (11.5-15.5) % Plt Count (150-450) k/uL Neutrophils % % Lymphocytes % % Monocytes % % Eosinophils % % Basophils % % Neutrophils # (1.3-7.7) k/uL Lymphocytes # (1.0-4.8) k/uL Monocytes # (0-1.0) k/uL Eosinophils # (0-0.7) k/uL Basophils # (0-0.2) k/uL Hypochromasia Anisocytosis PT 10.2 (9.0-12.0) sec INR 0.9 (<1.2) APTT 23.0 (22.0-30.0) sec Sodium (137-145) mmol/L Potassium (3.5-5.1) mmol/L Chloride (98-107) mmol/L Carbon Dioxide (22-30) mmol/L Anion Gap mmol/L BUN (7-17) mg/dL Creatinine (0.52-1.04) mg/dL Est GFR (CKD-EPI)AfAm (>60 ml/min/1.73 sqM) Est GFR (CKD-EPI)NonAf (>60 ml/min/1.73 sqM) Glucose (74-99) mg/dL Plasma Lactic Acid Josep 1.6 (0.7-2.0) mmol/L Calcium (8.4-10.2) mg/dL Magnesium (1.6-2.3) mg/dL Total Bilirubin (0.2-1.3) mg/dL AST (14-36) U/L ALT (9-52) U/L Alkaline Phosphatase (38-126) U/L Total Creatine Kinase (30-135) U/L CK-MB (CK-2) (0.0-2.4) ng/mL CK-MB (CK-2) Rel Index Troponin I (0.000-0.034) ng/mL Total Protein (6.3-8.2) g/dL Albumin (3.5-5.0) g/dL Critical Care Time Critical Care Time: Yes Total Critical Care Time: 97 Disposition Clinical Impression: COPD exacerbation, Acute exacerbation of chronic obstructive airways disease, Lung bullae, Bullous emphysema Disposition: ADMITTED IP TO THIS [facility] Condition: Stable Is patient prescribed a controlled substance at d/c from ED?: No Referrals: Heber James MD [Primary Care Provider] - 1-2 days Decision to Admit Reason: Admit from EC Decision Date: 11/29/18 Decision Time: 17:53
[2018-11-29] MEDS ORDERED: VANCOMYCIN IV PER PHARMACY 1 EACH MISC MISCELLANE PRN (17:49)
[2018-11-29] MEDS ORDERED: VANCOMYCIN 1,000 MG in SODIUM CHLORIDE 0.9% 250 ML IVPB ONE (18:15)
[2018-11-29] MEDS: SODIUM CHLORIDE 0.9% 1,000 ML IV SCH (18:19)
[2018-11-29 19:29] LABS: Glucose,Whole Blood 178 mg/dL (75-99)
[2018-11-29] MEDS: methylPREDNISolone SOD SUCCI 125 MG/2 ML VIAL IV SCH ×2 (20:06→23:19)
[2018-11-29] MEDS: HYDROmorphone 0.5 MG/0.5 ML SYRINGE IVP PRN (20:10)
[2018-11-29] MEDS ORDERED: PHENYLEPH PO PRN (20:23)
[2018-11-29] MEDS ORDERED: GUAIFEN PO PRN (20:23)
[2018-11-29] MEDS ORDERED: [UNRECOGNIZED DRUG - OTHER] PO PRN (20:23)
[2018-11-29] MEDS ORDERED: BUDESONIDE 1 MG/2 ML NEBU INHALATION PRN (20:23)
[2018-11-29] MEDS ORDERED: ACETAMINOPHN PO PRN (20:23)
[2018-11-29] MEDS ORDERED: LATANOPROST 0.005% OPHTH DROPS 2.5 ML BTL BOTH EYES SCH (21:00)
[2018-11-29] MEDS ORDERED: MELATONIN 5 MG TABLET PO SCH (21:00)
[2018-11-29] MEDS: DULoxetine HCL 30 MG CAPSULE.DR PO SCH (21:25)
[2018-11-29] MEDS: busPIRone HCl 10 MG TAB PO SCH (21:25)
[2018-11-29] MEDS: GABAPENTIN 300 MG CAP PO SCH (21:26)
[2018-11-29] MEDS: DICYCLOMINE 10 MG CAP PO SCH (21:26)
[2018-11-29] MEDS: MERCAPTOPURINE 50 MG TAB PO SCH (21:26)
[2018-11-29] MEDS: IPRATROPIUM-ALBUTEROL 3 ML NEB INHALATION SCH (21:28)
[2018-11-29] MEDS ORDERED: METOPROLOL TARTRATE 50 MG TAB PO SCH (22:00)
[2018-11-29] MEDS: CEFEPIME 2 GM in SODIUM CHLORIDE 0.9% 50 ML IVPB SCH (23:20)
[2018-11-30] MEDS: HYDROmorphone 0.5 MG/0.5 ML SYRINGE IVP PRN ×3 (01:02→06:12)
[2018-11-30 02:02] VITALS: BMI 19.5
[2018-11-30] MEDS: HYDROcodone/APAP 10-325MG 1 EACH TAB PO PRN ×2 (03:49→10:05)
[2018-11-30] MEDS: methylPREDNISolone SOD SUCCI 125 MG/2 ML VIAL IV SCH ×2 (05:18→12:01)
[2018-11-30] MEDS: SODIUM CHLORIDE 0.9% 1,000 ML IV SCH (05:27)
[2018-11-30] MEDS ORDERED: VANCOMYCIN 750 MG in SODIUM CHLORIDE 0.9% 250 ML IVPB SCH (06:00)
[2018-11-30 06:32] LABS: Anion Gap 2 mmol/L; Blood Urea Nitrogen 14 mg/dL (7-17); Calcium 8.8 mg/dL (8.4-10.2); Carbon Dioxide 33 mmol/L (22-30); Chloride 105 mmol/L (98-107); Glucose 136 mg/dL (74-99); Magnesium 1.4 mg/dL (1.6-2.3); Phosphorus 2.7 mg/dL (2.5-4.5); Sodium 140 mmol/L (137-145)
[2018-11-30 06:34] LABS: Anisocytosis Slight; Basophils % (A) 0 %; Eosinophils % (A) 0 %; HCT 28.9 % (34.0-46.0); Hypochromasia Marked; Lymphocytes # (A) 0.5 k/uL (1.0-4.8); Lymphocytes % (A) 4 %; MCHC 30.7 g/dL (31.0-37.0); MCV 94.4 fL (80.0-100.0); Mean Platelet Volume 6.7; Monocytes # (A) 0.2 k/uL (0-1.0); Monocytes % (A) 2 %; Neutrophils # (A) 11.6 k/uL (1.3-7.7); Neutrophils % (A) 94 %; Platelet Count 249 k/uL (150-450); RBC 3.06 m/uL (3.80-5.40); RDW 17.6 % (11.5-15.5); WBC 12.4 k/uL (3.8-10.6)
[2018-11-30 06:37] LABS: HGB 8.9 gm/dL (11.4-16.0)
--- NOTE | 2018-11-30 06:43 | P.CRDCN ---
History of Present Illness Consult date: 11/30/18 Chief complaint: Shortness of breath History of present illness: This is a pleasant 58-year-old female patient with a past medical history significant for advanced chronic obstructive pulmonary disease, chronic hypoxic respiratory failure, the patient is maintaining 24 7 oxygen at home at 3 L continuously, as well as history of sinus tachycardia, presented to the emergency room complaining of shortness of breath. The patient just was discharged from the hospital in September 2018 after she presented with shortness of breath and was diagnosed with bilateral pneumothorax. During that admission, the patient underwent bilateral chest tube. She was seen by our service at that point also and an echocardiogram was performed and revealed an EF of within normal limits with normal pulmonary artery systolic pressure. I have been following up with the patient in the office for sinus tachycardia. The patient was started on beta jenn as an outpatient. This time she presented to the hospital complaining of shortness of breath. She stated that the shortness of breath is way above. Baseline and lately it has been even with minimal exertion even carrying a conversation or walking for few steps. No chest pain or chest discomfort. No dizziness or lightheadedness. No syncope. The chest x-ray showed advanced emphysematous changes. The computed tomography scan of the chest showed the same finding with also bullous changes. The patient currently is in process of seeing by cardiothoracic surgeon for possible lung reduction surgery to be done either here or in different facility. We get involved in the care of the patient for sinus tachycardia. Currently the patient is on metoprolol. She is maintaining a resting heart rate around 115 to 120 beats per minute. Past Medical History Past Medical History: COPD, Fibromyalgia, GERD/Reflux, GI Bleed, Hyperlipidemia , Hypertension, Osteoarthritis (OA), Pneumonia, Syncope Additional Past Medical History / Comment(s): in past took meds for high blood pressure.COPD-02 3 liters n/c atc, crohn's, bowel obstructions, lower GI bleeds , hiatal hernia, osteoporosis, arthritis multiple joints, seasonal allergies, right-sided pneumothorax x2; ventilator 07/24/18 - transfer from [facility] r/t leelee History of Any Multi-Drug Resistant Organisms: None Reported Past Surgical History: Breast Surgery, Cholecystectomy, Hernia Repair, Hysterectomy, Orthopedic Surgery Additional Past Surgical History / Comment(s): Multiple bowel surgeries including total colectomy/ileostomy, ileostomy moved/repaired, R tube and R ovary removed due tectopic , total hysterectomy, leep procedure, laparoscopy for endometriosis, L breast lumpectomy-benign, r breast core bx- benign, EGD/colonoscopies. Right-sided Thora-vent placement May 09 and May 19. Eye surgery bilateral,arthroscopic knee surgery on he right due to ACL and Maniscal tear. past mechanical ventilator dependence,( trach and peg tube-since removed) Past Anesthesia/Blood Transfusion Reactions: No Reported Reaction Past Psychological History: Anxiety, Depression Smoking Status: Former smoker Past Alcohol Use History: None Reported Past Drug Use History: None Reported - Past Family History Mother Family Medical History: Cancer, COPD, Hypertension Additional Family Medical History / Comment(s): Mother at age 83 from COPD and osteoarthritis and had skin cancer. Father Family Medical History: Cancer, CVA/TIA, Dementia, Diabetes Mellitus Additional Family Medical History / Comment(s): Father is 90yrs old. Brother(s) Family Medical History: Cancer Additional Family Medical History / Comment(s): Patient had 5 brothers and one of them from melanoma at age 41. Sister(s) History Unknown: Yes Family Medical History: No Reported History Additional Family Medical History / Comment(s): Patient has one sister. Patient has no kids. Medications and Allergies Home Medications Medication Instructions Recorded Confirmed Type Latanoprost Ophth [Xalatan 0.005%] 1 drop BOTH EYES HS 05/21/17 11/29/18 History Cyanocobalamin [Vitamin B-12 1,000 mcg SQ Q30D 07/24/18 11/29/18 History Injection] Dicyclomine [Bentyl] 10 mg PO TID 07/24/18 11/29/18 History Budesonide 1 mg INHALATION RT-BID PRN 09/27/18 11/29/18 History Gabapentin [Neurontin] 300 mg PO TID 09/27/18 11/29/18 History HYDROcodone/APAP 10-325MG [[place] 1 tab PO Q4H PRN 09/27/18 11/29/18 History 10-325] Opium Tincture 10mg/1ml 20 mg PO QID PRN 09/27/18 11/29/18 History Colchicine [Colcrys] 0.6 mg PO DAILY #21 each 10/16/18 11/29/18 Rx DULoxetine HCL [Cymbalta] 30 mg PO BID #60 capsule. 10/16/18 11/29/18 Rx Melatonin 15 mg PO HS tablet 10/16/18 11/29/18 Rx Albuterol Nebulized [Ventolin 2.5 mg INHALATION RT-QID PRN #120 11/10/18 Rx Nebulized] nebu Metoprolol Tartrate [Lopressor] 50 mg PO TID #90 tab 11/10/18 11/29/18 Rx Magnesium Oxide [Mag-Ox] 400 mg PO DAILY #30 tablet 11/11/18 11/29/18 Rx Aclidinium [place] [Tudorza 1 puff INHALATION RT-BID 11/29/18 11/29/18 History Pressair] Calcium Gummy 500mg 500 mg PO DAILY 11/29/18 11/29/18 History Cholecalciferol (Vitamin D3) 2,000 unit PO DAILY 11/29/18 11/29/18 History [Vitamin D3] Fluticasone/Vilanterol [Breo 1 puff INHALATION RT-DAILY 11/29/18 11/29/18 History Ellipta 200-25 Mcg INH] Guaifen/Phenyleph/Acetaminophn 10 ml PO Q6H PRN 11/29/18 11/29/18 History [Mucinex Sinus-Max Severe Liq] Mercaptopurine [Purinethol] 50 mg PO BID 11/29/18 11/29/18 History Multivitamins, Thera [Multivitamin 1 tab PO DAILY 11/29/18 11/29/18 History (formulary)] busPIRone HCl [Buspar] 10 mg PO BID 11/29/18 11/29/18 History Allergies Allergy/AdvReac Type Severity Reaction Status Date / Time Iodinated Contrast- Oral and Allergy Anaphylaxis Verified 11/29/18 16:31 IV Dye pregabalin [From Lyrica] Allergy Unknown Verified 11/29/18 16:31 rofecoxib [From Vioxx] Allergy Unknown Verified 11/29/18 16:31 Sulfa (Sulfonamide Allergy Rash/Hives Verified 11/29/18 16:31 Antibiotics) aspirin AdvReac Internal Verified 11/29/18 16:31 Bleeding timolol [Timolol] AdvReac Nausea & Verified 11/29/18 16:31 Vomiting Physical Exam Vitals: Vital Signs Temp Pulse Resp BP Pulse Ox 11/30/18 06:00 110 H 13 96/74 94 L 11/30/18 05:30 108 H 18 102/73 95 11/30/18 05:00 107 H 16 110/77 95 11/30/18 04:30 111 H 22 109/79 94 L 11/30/18 04:00 97.6 F 112 H 20 103/80 93 L 11/30/18 03:30 112 H 19 109/75 96 11/30/18 03:00 112 H 22 105/78 94 L 11/30/18 02:30 109 H 23 109/71 94 L 11/30/18 02:00 105 H 23 111/75 95 11/30/18 01:30 105 H 23 97/76 94 L 11/30/18 01:00 105 H 25 H 103/68 96 11/30/18 00:54 101 H 26 H 103/68 93 L 11/30/18 00:30 97 20 103/68 98 11/30/18 00:00 98.1 F 97 17 103/68 98 11/29/18 23:30 100 19 103/68 98 11/29/18 23:00 101 H 17 103/68 98 11/29/18 22:30 101 H 17 103/68 98 11/29/18 22:00 121 H 20 103/68 95 11/29/18 21:39 124 H 11/29/18 21:30 125 H 20 97 11/29/18 21:29 129 H 11/29/18 21:00 130 H 18 100/59 97 11/29/18 20:30 133 H 19 96 11/29/18 20:00 97.6 F 131 H 15 103/68 98 11/29/18 19:30 126 H 14 98 11/29/18 19:00 126 H 24 117/78 99 11/29/18 18:30 135 H 24 91/70 98 11/29/18 18:00 141 H 24 96/69 95 11/29/18 17:30 142 H 22 109/84 95 11/29/18 17:00 141 H 26 H 110/82 99 11/29/18 16:34 151 H 22 11/29/18 16:30 142 H 24 113/84 11/29/18 16:12 148 H 24 11/29/18 16:00 142 H 23 141/98 11/29/18 15:54 99.1 F 129 H 26 H 141/98 96 11/29/18 15:52 141/98 94 L Intake and Output 11/29/18 11/29/18 11/30/18 14:59 22:59 06:59 Intake Total 225 600 Output Total 100 225 Balance 125 375 Intake: IV 225 600 Sodium Chloride 0.9% 1, 225 600 000 ml @ 75 mls/hr IV . [id number] [facility] Rx#:[id number] Output: Urine 100 225 Other: Voiding Method Indwelling Catheter Indwelling Catheter Weight 45.359 kg 46.9 kg - Constitutional General appearance: no acute distress - Respiratory Respiratory: bilateral: diminished - Cardiovascular Rhythm: regular Heart sounds: normal: S1, S2 Results 11/29/18 15:57 11/30/18 05:38 Cardiac Enzymes 11/29/18 11/29/18 Range/Units 15:57 15:57 AST 23 (14-36) U/L CK-MB (CK-2) 1.7 (0.0-2.4) ng/mL Troponin I 0.024 (0.000-0.034) ng/mL Coagulation 11/29/18 Range/Units 15:57 PT 10.2 (9.0-12.0) sec APTT 23.0 (22.0-30.0) sec CBC 11/29/18 Range/Units 15:57 WBC 21.6 H (3.8-10.6) k/uL RBC 3.65 L (3.80-5.40) m/uL Hgb 10.5 L (11.4-16.0) gm/dL Hct 33.6 L (34.0-46.0) % Plt Count 301 (150-450) k/uL Comprehensive Metabolic Panel 11/29/18 11/30/18 Range/Units 15:57 05:38 Sodium 139 140 (137-145) mmol/L Potassium 4.4 5.0 (3.5-5.1) mmol/L Chloride 92 L 105 (98-107) mmol/L Carbon Dioxide 42 H* 33 H (22-30) mmol/L BUN 15 14 (7-17) mg/dL Creatinine 0.62 0.46 L (0.52-1.04) mg/dL Glucose 147 H 136 H (74-99) mg/dL Calcium 9.5 8.8 (8.4-10.2) mg/dL AST 23 (14-36) U/L ALT 35 (9-52) U/L Alkaline Phosphatase 218 H (38-126) U/L Total Protein 5.7 L (6.3-8.2) g/dL Albumin 3.3 L (3.5-5.0) g/dL Current Medications Generic Name Dose Route Start Last Admin Trade Name Freq PRN Reason Stop Dose Admin Acetaminophen 650 mg 11/29/18 17:40 Tylenol Tab PO Q4HR PRN Fever and/or Mild Pain Hydrocodone Bitart/Acetaminophen 1 each 11/29/18 20:23 11/30/18 03:49 [place] 10 PO 1 each Q6H PRN Administration Pain Albuterol/Ipratropium 3 ml 11/29/18 17:40 Duoneb 0.5 Mg-3 Mg/3 Ml Soln INHALATION RT-Q4H PRN Shortness Of Breath Or Wheezing Albuterol/Ipratropium 3 ml 11/29/18 20:00 11/29/18 21:28 Duoneb 0.5 Mg-3 Mg/3 Ml Soln INHALATION 3 ml RT-QID MEENU Administration Budesonide 1 mg 11/30/18 08:00 Pulmicort INHALATION RT-BID [facility] Buspirone HCl 10 mg 11/29/18 21:00 11/29/18 21:25 Buspar PO 10 mg BID [facility] Administration Calcium Carbonate/Glycine 500 mg 11/30/18 12:00 Tums PO 1200 [facility] Cholecalciferol 2,000 unit 11/30/18 12:00 Vitamin D3 PO 1200 [facility] Colchicine 0.6 mg 11/30/18 09:00 Colcrys PO DAILY [facility] Cyanocobalamin 1,000 mcg 12/16/18 12:00 Vitamin B-12 SQ Q30D [facility] Dicyclomine HCl 10 mg 11/29/18 22:00 11/29/18 21:26 Bentyl PO 10 mg TID [facility] Administration Diltiazem HCl 30 mg 11/30/18 09:00 Cardizem Oral PO QID [facility] Duloxetine HCl 30 mg 11/29/18 21:00 11/29/18 21:25 Cymbalta PO 30 mg BID MEENU Administration Famotidine 20 mg 11/30/18 09:00 Pepcid PO BID [facility] Formoterol Fumarate 20 mcg 11/30/18 08:00 Perforomist INHALATION RT-BID [facility] Gabapentin 300 mg 11/29/18 22:00 11/29/18 21:26 Neurontin PO 300 mg TID MEENU Administration Heparin Sodium (Porcine) 5,000 unit 11/30/18 08:00 Heparin SQ Q8HR [facility] Hydromorphone HCl 0.5 mg 11/29/18 17:40 11/30/18 06:12 Dilaudid IVP 0.5 mg Q2HR PRN Administration Pain Scale 4 to 5 Sodium Chloride 1,000 mls @ 75 mls/hr 11/29/18 17:45 11/30/18 05:27 Saline 0.9% IV 75 mls/hr .[id number] MEENU Administration Cefepime HCl 2 gm/ Sodium 50 mls @ 100 mls/hr 11/30/18 00:00 11/29/18 23:20 Chloride IVPB 100 mls/hr Q8HR MEENU Administration Vancomycin HCl 750 mg/ Sodium 250 mls @ 125 mls/hr 11/30/18 06:00 11/30/18 05 :23 Chloride IVPB 125 mls/hr Q12H MEENU Administration Insulin Aspart 0 unit 11/30/18 07:30 Novolog SQ ACHS [facility] Protocol Latanoprost 1 drops 11/29/18 21:00 11/29/18 21:25 Xalatan 0.005% BOTH EYES 1 drops HS [facility] Administration Magnesium Oxide 400 mg 11/30/18 12:00 Mag-Ox PO 1200 [facility] Melatonin 15 mg 11/29/18 21:00 11/29/18 21:26 Melatonin PO 15 mg HS [facility] Administration Mercaptopurine 50 mg 11/29/18 21:00 11/29/18 21:26 Purinethol PO 50 mg BID [facility] Administration Methylprednisolone Sodium Succinate 60 mg 11/29/18 18:00 11/30/18 05:18 Solu-Medrol IV 60 mg Q6HR MEENU Administration Multivitamins 1 each 11/30/18 12:00 Theragran PO 1200 [facility] Naloxone HCl 0.2 mg 11/29/18 17:40 Narcan IV Q2M PRN Opioid Reversal Intake and Output 11/29/18 11/29/18 11/30/18 14:59 22:59 06:59 Intake Total 225 600 Output Total 100 225 Balance 125 375 Intake: IV 225 600 Sodium Chloride 0.9% 1, 225 600 000 ml @ 75 mls/hr IV . [id number] [facility] Rx#:[id number] Output: Urine 100 225 Other: Voiding Method Indwelling Catheter Indwelling Catheter Weight 45.359 kg 46.9 kg Patient Weight 11/30/18 06:59 Weight 46.9 kg 11/29/18 15:57 11/30/18 05:38 Assessment and Plan Assessment: Assessment #1 acute exacerbation of chronic obstructive pulmonary disease #2 advanced COPD #3 sinus tachycardia Plan #1 I would DC the beta jenn, giving a history of advanced COPD, and start the patient on calcium channel jenn 30 mg by mouth 3 times a day of Cardizem #2 continue monitor the blood pressure and heart rate. #3 the sinus tachycardia is likely related to the advanced COPD and respiratory distress #4 no need to repeat the echo in view of recent echocardiogram showing normal LV function with normal pulmonary artery systolic pressure #5 follow-up with the patient. Thank you for allowing us participate in her care
[2018-11-30] MEDS ORDERED: Magnesium Replacement Protocol 1 EACH MISC MISCELLANE PRN (06:49)
[2018-11-30 07:10] LABS: Glucose,Whole Blood 135 mg/dL (75-99)
[2018-11-30] MEDS: MAGNESIUM SULFATE-D5W PMX 1 GM in DEXTROSE/WATER 1 100ML.BAG IVPB SCH ×3 (07:25→12:00)
[2018-11-30] MEDS ORDERED: INSULIN ASPART 100 UNIT/ML 1 ML 10 ML VIAL SQ SCH (07:30)
--- NOTE | 2018-11-30 07:31 | XR ---
EXAMINATION TYPE: XR chest 1V portable DATE OF EXAM: 11/30/2018 HISTORY: Shortness of breath. COMPARISON: 11/29/2018 TECHNIQUE: Single view of the chest is submitted. FINDINGS: Demonstrated are scattered senescent parenchymal change. Advanced emphysematous changes redemonstrate d. No definite evidence for pneumothorax. Patchy infiltrate left suprahilar and left basilar regions persists although may be improved. Infiltr ate right infrahilar region. The heart is stable. Hilar and mediastinal structures are within normal limits. Degenerative changes are seen of the dorsal spine. IMPRESSION: 1. Patchy infiltrate left suprahilar and left basilar regions persists although may be improved. Inf iltrate right infrahilar region. 2. No convincing evidence for pneumothorax at this time.
[2018-11-30] MEDS: IPRATROPIUM-ALBUTEROL 3 ML NEB INHALATION SCH ×2 (07:56→11:29)
[2018-11-30] MEDS ORDERED: HEPARIN SODIUM,PORCINE 5,000 UNIT/ML 1 ML VIAL SQ SCH (08:00)
[2018-11-30] MEDS ORDERED: NON-FORMULARY DRUG (Aclidinium Bromide [Tudorza Pressair] 1 PUFF) INHALATION SCH (08:00)
[2018-11-30] MEDS ORDERED: FORMOTEROL FUMARATE 20 MCG/2 ML NEBU INHALATION SCH (08:00)
[2018-11-30] MEDS ORDERED: SYMBICORT 160-4.5 MCG INHALER INHALATION SCH (08:00)
[2018-11-30] MEDS ORDERED: BUDESONIDE 1 MG/2 ML NEBU INHALATION SCH (08:00)
[2018-11-30] MEDS ORDERED: FAMOTIDINE 20 MG TAB PO SCH (09:00)
[2018-11-30] MEDS ORDERED: COLCHICINE 0.6 MG EACH PO SCH (09:00)
[2018-11-30] MEDS: GABAPENTIN 300 MG CAP PO SCH (09:05)
[2018-11-30] MEDS: CEFEPIME 2 GM in SODIUM CHLORIDE 0.9% 50 ML IVPB SCH (09:05)
[2018-11-30] MEDS: MERCAPTOPURINE 50 MG TAB PO SCH (09:06)
[2018-11-30] MEDS: DILTIAZEM ORAL 30 MG TAB PO SCH ×2 (09:07→12:01)
[2018-11-30] MEDS: DICYCLOMINE 10 MG CAP PO SCH (09:08)
[2018-11-30] MEDS: DULoxetine HCL 30 MG CAPSULE.DR PO SCH (09:09)
[2018-11-30] MEDS: HYDROmorphone 1 MG/ML 1 ML SYRINGE IVP PRN ×2 (09:11→12:58)
[2018-11-30] MEDS: busPIRone HCl 10 MG TAB PO SCH (09:22)
--- NOTE | 2018-11-30 09:29 | P.CNPUL ---
History of Present Illness Consult date: 11/30/18 Requesting physician: Tacho Siddiqui Reason for consult: dyspnea Chief complaint: Shortness of breath History of present illness: This is a 58-year-old white female patient of Dr. James, with past medical history of chronic hypoxemic respiratory failure secondary to advanced COPD/ bullous emphysema, hypertension, hyperlipidemia, previous pneumonia, or/reflux, previous episode of GI bleeding, Crohn's disease, multiple bowel surgeries including total colectomy/ileostomy, former smoker, anxiety, depression. Patient has underlying FEV1 value of 36% of predicted, and a chronic left upper lobe inflammatory opacity that was nonmalignant. She has had previous episodes of prolonged respiratory failure requiring mechanical ventilation, and placement of tracheostomy and a PEG tube, with subsequent liberation from mechanical ventilation and decannulation. Patient was recently hospitalized in September for bilateral pneumothorax, requiring chest tube placements is a left floor events. Did suffer a brief cardiac arrest during that admission, she was intubated and placed on mechanical ventilatory, was subsequently weaned off, and successfully extubated. Patient was discharged home on 11/10/2018, and there was a discussion of patient being referred to the [facility] for possible lung reduction surgery and bullectomy. Patient was supposed to see Dr. Mistry today on 11/30/2018 however last night she was admitted through the emergency department, with complaints of increasing shortness of breath. Chest x-ray showed advanced emphysema with asymmetrical hyperinflation of the right hemithorax, and there is a suspicion of medial right upper hemothorax, as well as medial right base pneumothorax, with a trace right pleural effusion. Follow-up CT chest showed severe bullous emphysema, no evidence of pneumothorax , stable cavitating infiltrate in the left upper lobe, this was compared to the previous CT chest from 11/02/2018 and there was significant clearing of the pleural fluid and infiltrates at the lung bases compared to the last CT chest. Also showed a very large bulla occupying a large portion of the right lung field , and multiple thoracic mild compression fractures consistent with osteoporosis. She has been afebrile, tachycardic, in sinus mechanism, with a heart rate ranging between 105-117 BPM, she is on 4 L per nasal cannula, pulse ox is 95%, hemodynamically she is stable. Blood work showed white count of 21.6 , hemoglobin of 10.5, sodium of 139, potassium is 4.4, chloride is 92, CO2 is 42 , BUN was 15 and creatinine was 0.62. Magnesium level was 1.5, AST and ALT were within normal limits, alkaline phosphatase was 218, troponin was negative 1. Patient is complaining of rib pain in posterior chest. Patient was started on antibiotics, including cefepime and vancomycin, and she was given IV fluid boluses, a total of 1 L of 0.9 normal saline, IV steroids, and nebulized bronchodilators and admitted to the intensive care unit. Review of Systems All systems: negative Constitutional: Denies chills, Denies fever Eyes: denies blurred vision, denies pain Ears, nose, mouth and throat: Denies headache, Denies sore throat Cardiovascular: Reports decreased exercise tolerance, Reports dyspnea on exertion, Reports shortness of breath, Denies chest pain Respiratory: Reports cough with sputum, Reports dyspnea, Reports home oxygen, Reports pain on inspiration, Reports respiratory infections, Denies cough Gastrointestinal: Denies abdominal pain, Denies diarrhea, Denies nausea, Denies vomiting Genitourinary: Denies dysuria, Denies hematuria Musculoskeletal: Denies myalgias Integumentary: Denies pruritus, Denies rash Neurological: Denies numbness, Denies weakness Psychiatric: Denies anxiety, Denies depression Endocrine: Denies fatigue, Denies weight change Past Medical History Past Medical History: COPD, Fibromyalgia, GERD/Reflux, GI Bleed, Hyperlipidemia , Hypertension, Osteoarthritis (OA), Pneumonia, Syncope Additional Past Medical History / Comment(s): in past took meds for high blood pressure.COPD-02 3 liters n/c atc, crohn's, bowel obstructions, lower GI bleeds , hiatal hernia, osteoporosis, arthritis multiple joints, seasonal allergies, right-sided pneumothorax x2; ventilator 07/24/18 - transfer from [facility] r/t bollas History of Any Multi-Drug Resistant Organisms: None Reported Past Surgical History: Breast Surgery, Cholecystectomy, Hernia Repair, Hysterectomy, Orthopedic Surgery Additional Past Surgical History / Comment(s): Multiple bowel surgeries including total colectomy/ileostomy, ileostomy moved/repaired, R tube and R ovary removed due tectopic , total hysterectomy, leep procedure, laparoscopy for endometriosis, L breast lumpectomy-benign, r breast core bx- benign, EGD/colonoscopies. Right-sided Thora-vent placement May 09 and May 19. Eye surgery bilateral,arthroscopic knee surgery on he right due to ACL and Maniscal tear. past mechanical ventilator dependence,( trach and peg tube-since removed) Past Anesthesia/Blood Transfusion Reactions: No Reported Reaction Past Psychological History: Anxiety, Depression Smoking Status: Former smoker Past Alcohol Use History: None Reported Past Drug Use History: None Reported - Past Family History Mother Family Medical History: Cancer, COPD, Hypertension Additional Family Medical History / Comment(s): Mother at age 83 from COPD and osteoarthritis and had skin cancer. Father Family Medical History: Cancer, CVA/TIA, Dementia, Diabetes Mellitus Additional Family Medical History / Comment(s): Father is 90yrs old. Brother(s) Family Medical History: Cancer Additional Family Medical History / Comment(s): Patient had 5 brothers and one of them from melanoma at age 41. Sister(s) History Unknown: Yes Family Medical History: No Reported History Additional Family Medical History / Comment(s): Patient has one sister. Patient has no kids. Medications and Allergies Home Medications Medication Instructions Recorded Confirmed Type Latanoprost Ophth [Xalatan 0.005%] 1 drop BOTH EYES HS 05/21/17 11/29/18 History Cyanocobalamin [Vitamin B-12 1,000 mcg SQ Q30D 07/24/18 11/29/18 History Injection] Dicyclomine [Bentyl] 10 mg PO TID 07/24/18 11/29/18 History Budesonide 1 mg INHALATION RT-BID PRN 09/27/18 11/29/18 History Gabapentin [Neurontin] 300 mg PO TID 09/27/18 11/29/18 History HYDROcodone/APAP 10-325MG [[place] 1 tab PO Q4H PRN 09/27/18 11/29/18 History 10-325] Opium Tincture 10mg/1ml 20 mg PO QID PRN 09/27/18 11/29/18 History Colchicine [Colcrys] 0.6 mg PO DAILY #21 each 10/16/18 11/29/18 Rx DULoxetine HCL [Cymbalta] 30 mg PO BID #60 capsule. 10/16/18 11/29/18 Rx Melatonin 15 mg PO HS tablet 10/16/18 11/29/18 Rx Albuterol Nebulized [Ventolin 2.5 mg INHALATION RT-QID PRN #120 11/10/18 Rx Nebulized] nebu Metoprolol Tartrate [Lopressor] 50 mg PO TID #90 tab 11/10/18 11/29/18 Rx Magnesium Oxide [Mag-Ox] 400 mg PO DAILY #30 tablet 11/11/18 11/29/18 Rx Aclidinium Ch[place]ar [Tudorza 1 puff INHALATION RT-BID 11/29/18 11/29/18 History Pressair] Calcium Gummy 500mg 500 mg PO DAILY 11/29/18 11/29/18 History Cholecalciferol (Vitamin D3) 2,000 unit PO DAILY 11/29/18 11/29/18 History [Vitamin D3] Fluticasone/Vilanterol [Breo 1 puff INHALATION RT-DAILY 11/29/18 11/29/18 History Ellipta 200-25 Mcg INH] Guaifen/Phenyleph/Acetaminophn 10 ml PO Q6H PRN 11/29/18 11/29/18 History [Mucinex Sinus-Max Severe Liq] Mercaptopurine [Purinethol] 50 mg PO BID 11/29/18 11/29/18 History Multivitamins, Thera [Multivitamin 1 tab PO DAILY 11/29/18 11/29/18 History (formulary)] busPIRone HCl [Buspar] 10 mg PO BID 11/29/18 11/29/18 History Allergies Allergy/AdvReac Type Severity Reaction Status Date / Time Iodinated Contrast- Oral and Allergy Anaphylaxis Verified 11/29/18 16:31 IV Dye pregabalin [From Lyrica] Allergy Unknown Verified 11/29/18 16:31 rofecoxib [From Vioxx] Allergy Unknown Verified 11/29/18 16:31 Sulfa (Sulfonamide Allergy Rash/Hives Verified 11/29/18 16:31 Antibiotics) aspirin AdvReac Internal Verified 11/29/18 16:31 Bleeding timolol [Timolol] AdvReac Nausea & Verified 11/29/18 16:31 Vomiting Physical Exam Vitals: Vital Signs Temp Pulse Resp BP Pulse Ox 11/30/18 08:23 117 H 11/30/18 08:08 112 H 11/30/18 07:57 112 H 11/30/18 07:00 105 H 20 113/81 95 11/30/18 06:30 106 H 23 117/77 94 L 11/30/18 06:00 110 H 13 96/74 94 L 11/30/18 05:30 108 H 18 102/73 95 11/30/18 05:00 107 H 16 110/77 95 11/30/18 04:30 111 H 22 109/79 94 L 11/30/18 04:00 97.6 F 112 H 20 103/80 93 L 11/30/18 03:30 112 H 19 109/75 96 11/30/18 03:00 112 H 22 105/78 94 L 11/30/18 02:30 109 H 23 109/71 94 L 11/30/18 02:00 105 H 23 111/75 95 11/30/18 01:30 105 H 23 97/76 94 L 11/30/18 01:00 105 H 25 H 103/68 96 11/30/18 00:54 101 H 26 H 103/68 93 L 11/30/18 00:30 97 20 103/68 98 11/30/18 00:00 98.1 F 97 17 103/68 98 11/29/18 23:30 100 19 103/68 98 11/29/18 23:00 101 H 17 103/68 98 11/29/18 22:30 101 H 17 103/68 98 11/29/18 22:00 121 H 20 103/68 95 11/29/18 21:39 124 H 11/29/18 21:30 125 H 20 97 11/29/18 21:29 129 H 11/29/18 21:00 130 H 18 100/59 97 11/29/18 20:30 133 H 19 96 11/29/18 20:00 97.6 F 131 H 15 103/68 98 11/29/18 19:30 126 H 14 98 11/29/18 19:00 126 H 24 117/78 99 11/29/18 18:30 135 H 24 91/70 98 11/29/18 18:00 141 H 24 96/69 95 11/29/18 17:30 142 H 22 109/84 95 11/29/18 17:00 141 H 26 H 110/82 99 11/29/18 16:34 151 H 22 11/29/18 16:30 142 H 24 113/84 11/29/18 16:12 148 H 24 11/29/18 16:00 142 H 23 141/98 11/29/18 15:54 99.1 F 129 H 26 H 141/98 96 11/29/18 15:52 141/98 94 L Intake and Output 11/29/18 11/30/18 11/30/18 22:59 06:59 14:59 Intake Total 225 600 75 Output Total 100 225 20 Balance 125 375 55 Intake: IV 225 600 75 Sodium Chloride 0.9% 1, 225 600 75 000 ml @ 75 mls/hr IV . [id number] [facility] Rx#:[id number] Output: Urine 100 225 20 Other: Voiding Method Indwelling Catheter Indwelling Catheter Weight 45.359 kg 46.9 kg GENERAL EXAM: Alert, pleasant, 58-year-old white female, frail, and chronically ill-looking, mildly dyspneic with conversation, but no apparent distress, hardly on 4 L per nasal cannula, and she is receiving nebulized bronchodilator treatment. HEAD: Normocephalic/atraumatic. EYES: Normal reaction of pupils, equal size. Conjunctiva pink, sclera white. NOSE: Clear with pink turbinates. THROAT: No erythema or exudates. NECK: No masses, no JVD, no thyroid enlargement, no adenopathy. CHEST: No chest wall deformity. Symmetrical expansion. LUNGS: Equal air entry with scattered rhonchi CVS: Regular rate and rhythm, normal S1 and S2, no gallops, no murmurs, no rubs ABDOMEN: Soft, nontender. No hepatosplenomegaly, normal bowel sounds, no guarding or rigidity. EXTREMITIES: No clubbing, no edema, no cyanosis, 2+ pulses and upper and lower extremities. MUSCULOSKELETAL: Muscle strength and tone normal. SPINE: No scoliosis or deformity SKIN: No rashes CENTRAL NERVOUS SYSTEM: Alert and oriented -3. No focal deficits, tone is normal in all 4 extremities. PSYCHIATRIC: Alert and oriented -3. Appropriate affect. Intact judgment and insight. Results - Laboratory Findings CBC and BMP: 11/30/18 05:38 11/30/18 05:38 PT/INR, D-dimer PT 10.2 sec (9.0-12.0) 11/29/18 15:57 INR 0.9 (<1.2) 11/29/18 15:57 Abnormal lab findings: Abnormal Labs 11/29/18 11/29/18 11/29/18 15:57 15:57 15:57 WBC 21.6 H RBC 3.65 L Hgb 10.5 L Hct 33.6 L MCHC RDW 17.6 H Neutrophils # 19.1 H Lymphocytes # Chloride 92 L Carbon Dioxide 42 H* Creatinine Glucose 147 H POC Glucose (mg/dL) Magnesium 1.5 L Alkaline Phosphatase 218 H Total Creatine Kinase <20 L Total Protein 5.7 L Albumin 3.3 L 11/29/18 11/30/18 11/30/18 19:26 05:38 05:38 WBC 12.4 H RBC 3.06 L Hgb 8.9 L D Hct 28.9 L MCHC 30.7 L RDW 17.6 H Neutrophils # 11.6 H Lymphocytes # 0.5 L Chloride Carbon Dioxide 33 H Creatinine 0.46 L Glucose 136 H POC Glucose (mg/dL) 178 H Magnesium 1.4 L Alkaline Phosphatase Total Creatine Kinase Total Protein Albumin 11/30/18 07:07 WBC RBC Hgb Hct MCHC RDW Neutrophils # Lymphocytes # Chloride Carbon Dioxide Creatinine Glucose POC Glucose (mg/dL) 135 H Magnesium Alkaline Phosphatase Total Creatine Kinase Total Protein Albumin - Diagnostic Findings Chest x-ray: report reviewed, image reviewed CT scan - chest: report reviewed, image reviewed Additional studies: EKG reviewed Assessment and Plan Plan: Assessment: #1. Dyspnea related to acute exacerbation of COPD/bullous emphysema, chest x- ray and CT chest were both reviewed, did not show clear evidence of pneumonia chronic changes with bullous emphysema, and chronic left upper lobe inflammatory cavitating opacity #2. Large bulla occupying a large portion of the right lung field, not a chronic left upper lobe cavitating lesion, previously seen on CT scans and chest x-rays, stable in appearance. Patient was considered for lung reduction/ bullectomy surgery, was in the process of getting a referral to [facility] #3. Leukocytosis #4. Chronic hypoxemic respiratory failure related to advanced COPD/emphysema, with FEV1 value of 36% of predicted, distant with stage III COPD, and patient is on chronic prednisone #5. Recent hospitalization in September for bilateral pneumothorax with placement of bilateral chest tubes, and left pleural vent placement. She did suffer a brief cardiac arrest with return of spontaneous circulation. He required intubation and mechanical ventilation, was successfully weaned from the ventilator, and discharged home on 11/02/2018 #6. Past episodes of pneumonia, previous episodes of respiratory failure requiring mechanical ventilation, tracheostomy placement and PEG tube placement , and patient was decannulated subsequently after being weaned from the ventilator #7. Previous history of right-sided pneumothorax #8. Chronic left upper lobe inflammatory opacity #9. Hypertension, hyperlipidemia #10. Crohn's disease, with history of bowel resection, and patient has a ileostomy in place #11. Hypothyroidism #12. Chronic anemia #13. Fibromyalgia #14. Anxiety/depression Plan: Will arrange transfer to [facility] to see Dr. Ronaldo Gallegos, for volume reduction/bullectomy surgery. We'll discontinue vancomycin, will continue with cefepime, no clear evidence of a pneumonic infiltrate, chronic changes seen on the CT chest, with a large bulla occupying a large space in the right lung field , and a chronic left upper lobe cavitating lesion. Continue with nebulized treatments. Pain control. She is a high surgical risk, will need care at a tertiary Medical Center. Labs and chest x-rays and CT chest has been reviewed. We'll continue to closely follow I performed a history & physical examination of the patient and discussed their management with my nurse practitioner, Carmella Jimenez. I reviewed the nurse practitioner's note and agree with the documented findings and plan of care. Lung sounds are positive for diffuse rhonchi. The findings and the impression was discussed with the patient. I attest to the documentation by the nurse practitioner. Time with Patient: Greater than 30
[2018-11-30 09:45] VITALS: TEMP 98.4
[2018-11-30] MEDS ORDERED: MAGNESIUM OXIDE 400 MG TAB PO SCH (12:00)
[2018-11-30] MEDS ORDERED: CALCIUM CARBONATE 500 MG CHEWABLE PO SCH (12:00)
[2018-11-30] MEDS ORDERED: CHOLECALCIFEROL 1,000 UNIT TAB PO SCH (12:00)
[2018-11-30] MEDS ORDERED: MULTIVITAMINS, THERA 1 EACH TAB PO SCH (12:00)
--- NOTE | 2018-11-30 12:50 | P.HPIM ---
History of Present Illness H&P Date: 11/29/18 Chief Complaint: acute respiratory failur pneumothorax, COPD exce 58-year-old female of Dr. Hernandez patient was hospitalized last 2017 until 11/11/2018 with acute respiratory failure secondary to acute exacerbation of COPD complicated with bilateral pneumothorax was intubated and placed on mechanical ventilation also had bilateral chest tube at the time also patient had a brief cardiac arrest secondary to her acute on chronic hypoxic respiratory failure has improved after improving her condition. Patient is known to have severe advanced chronic obstructive pulmonary disease and bullous emphysema with FEV1 only her on 36%. Patient had recurrent episode of right sided pneumothorax 3 so far with her current infection back and forth secondary to her chronic current lung problem. Patient presented to the emergency department at [facility] with acute respiratory failure with CO2 the PD exacerbation worsening dyspnea and shortness of breath cough wheezes and significant chest pain found to be hypoxic and tachypneic and tachycardic and acute respiratory failure the time was placed on BiPAP and try to avoid intubation patient was admitted to the ICU. Pulmonary and cardiothoracic surgery would be consult. Review of Systems CONSTITUTIONAL: very thin malnourished and acute respiratory failure and distress. EYES: No icterus sclerae, no conjunctivitis. EARS, NOSE, MOUTH, THROAT, and FACE: No sore throat, lymphadenopathy, carotid bruits or deformity. RESPIRATORY: severe dyspnea and shortness of breath cough wheezes. CARDIOVASCULAR: positive chest pain posit with worsening dyspnea with minimum exertion GASTROINTESTINAL: No Abd pain, Nausea or vomiting, no Diarrhea or constipation, No GI Bleed, no distention or masses. GENITOURINARY: Negative for Hematuria or UTI, no kidney stones. INTEGUMENT/BREAST: Negative for any muscular injury with mild osteoarthritis.. HEMATOLOGIC/LYMPHATIC: Negative for bleed or purpura. MUSCULOSKELTAL: Negative for Myalgia or arthralgia. NEURLOGICAL: No LOC, Sz or syncope, blurred vision dizziness or abnormality.. BEHAVIORAL/PSYCH: Negative. ENDOCRINE: Negative. Past Medical History Past Medical History: COPD, Fibromyalgia, GERD/Reflux, GI Bleed, Hyperlipidemia , Hypertension, Osteoarthritis (OA), Pneumonia, Syncope Additional Past Medical History / Comment(s): in past took meds for high blood pressure.COPD-02 3 liters n/c atc, crohn's, bowel obstructions, lower GI bleeds , hiatal hernia, osteoporosis, arthritis multiple joints, seasonal allergies, right-sided pneumothorax x2; ventilator 07/24/18 - transfer from [facility] r/t [place] History of Any Multi-Drug Resistant Organisms: None Reported Past Surgical History: Breast Surgery, Cholecystectomy, Hernia Repair, Hysterectomy, Orthopedic Surgery Additional Past Surgical History / Comment(s): Multiple bowel surgeries including total colectomy/ileostomy, ileostomy moved/repaired, R tube and R ovary removed due tectopic , total hysterectomy, leep procedure, laparoscopy for endometriosis, L breast lumpectomy-benign, r breast core bx- benign, EGD/colonoscopies. Right-sided Thora-vent placement May 09 and May 19. Eye surgery bilateral,arthroscopic knee surgery on he right due to ACL and Maniscal tear. past mechanical ventilator dependence,( trach and peg tube-since removed) Past Anesthesia/Blood Transfusion Reactions: No Reported Reaction Past Psychological History: Anxiety, Depression Smoking Status: Former smoker Past Alcohol Use History: None Reported Past Drug Use History: None Reported - Past Family History Mother Family Medical History: Cancer, COPD, Hypertension Additional Family Medical History / Comment(s): Mother at age 83 from COPD and osteoarthritis and had skin cancer. Father Family Medical History: Cancer, CVA/TIA, Dementia, Diabetes Mellitus Additional Family Medical History / Comment(s): Father is 90yrs old. Brother(s) Family Medical History: Cancer Additional Family Medical History / Comment(s): Patient had 5 brothers and one of them from melanoma at age 41. Sister(s) History Unknown: Yes Family Medical History: No Reported History Additional Family Medical History / Comment(s): Patient has one sister. Patient has no kids. Medications and Allergies Home Medications Medication Instructions Recorded Confirmed Type Latanoprost Ophth [Xalatan 0.005%] 1 drop BOTH EYES HS 05/21/17 11/29/18 History Cyanocobalamin [Vitamin B-12 1,000 mcg SQ Q30D 07/24/18 11/29/18 History Injection] Dicyclomine [Bentyl] 10 mg PO TID 07/24/18 11/29/18 History Budesonide 1 mg INHALATION RT-BID PRN 09/27/18 11/29/18 History Gabapentin [Neurontin] 300 mg PO TID 09/27/18 11/29/18 History HYDROcodone/APAP 10-325MG [[place] 1 tab PO Q4H PRN 09/27/18 11/29/18 History 10-325] Opium Tincture 10mg/1ml 20 mg PO QID PRN 09/27/18 11/29/18 History Colchicine [Colcrys] 0.6 mg PO DAILY #21 each 10/16/18 11/29/18 Rx DULoxetine HCL [Cymbalta] 30 mg PO BID #60 capsule. 10/16/18 11/29/18 Rx Melatonin 15 mg PO HS tablet 10/16/18 11/29/18 Rx Albuterol Nebulized [Ventolin 2.5 mg INHALATION RT-QID PRN #120 11/10/18 Rx Nebulized] nebu Metoprolol Tartrate [Lopressor] 50 mg PO TID #90 tab 11/10/18 11/29/18 Rx Magnesium Oxide [Mag-Ox] 400 mg PO DAILY #30 tablet 11/11/18 11/29/18 Rx Aclidinium [place] [Tudorza 1 puff INHALATION RT-BID 11/29/18 11/29/18 History Pressair] Calcium Gummy 500mg 500 mg PO DAILY 11/29/18 11/29/18 History Cholecalciferol (Vitamin D3) 2,000 unit PO DAILY 11/29/18 11/29/18 History [Vitamin D3] Fluticasone/Vilanterol [Breo 1 puff INHALATION RT-DAILY 11/29/18 11/29/18 History Ellipta 200-25 Mcg INH] Guaifen/Phenyleph/Acetaminophn 10 ml PO Q6H PRN 11/29/18 11/29/18 History [Mucinex Sinus-Max Severe Liq] Mercaptopurine [Purinethol] 50 mg PO BID 11/29/18 11/29/18 History Multivitamins, Thera [Multivitamin 1 tab PO DAILY 11/29/18 11/29/18 History (formulary)] busPIRone HCl [Buspar] 10 mg PO BID 11/29/18 11/29/18 History Allergies Allergy/AdvReac Type Severity Reaction Status Date / Time Iodinated Contrast- Oral and Allergy Anaphylaxis Verified 11/29/18 16:31 IV Dye pregabalin [From Lyrica] Allergy Unknown Verified 11/29/18 16:31 rofecoxib [From Vioxx] Allergy Unknown Verified 11/29/18 16:31 Sulfa (Sulfonamide Allergy Rash/Hives Verified 11/29/18 16:31 Antibiotics) aspirin AdvReac Internal Verified 11/29/18 16:31 Bleeding timolol [Timolol] AdvReac Nausea & Verified 11/29/18 16:31 Vomiting Physical Exam Vitals: Vital Signs Temp Pulse Resp BP Pulse Ox 11/29/18 19:00 126 H 24 117/78 99 11/29/18 18:30 135 H 24 91/70 98 11/29/18 18:00 141 H 24 96/69 95 11/29/18 17:30 142 H 22 109/84 95 11/29/18 17:00 141 H 26 H 110/82 99 11/29/18 16:34 151 H 22 11/29/18 16:30 142 H 24 113/84 11/29/18 16:12 148 H 24 11/29/18 16:00 142 H 23 141/98 11/29/18 15:54 99.1 F 129 H 26 H 141/98 96 11/29/18 15:52 141/98 94 L Intake and Output 11/29/18 11/29/18 11/29/18 06:59 14:59 22:59 Other: Weight 45.359 kg General Appearance: Alert, cooperative, looks much older than her age and acute respiratory distress. Neck HEENT: Supple, no lymphadenopathy, no thyroid enlargement, no carotid bruits. Lungs: hyperinflated with decreased breath sound bilaterry worse in the right than the left side with increased wheezes bilaterally. Chest Wall: decrease expansion with deep inspiration speciallyin the right side no tenderness and no deformity was found on exam, no costochondral pain or discomfort. Heart: Regular rate and rhythm, S1, S2 normal, no murmur, rub or gallop. Back: Symmetric, no curvature, ROM normal, no CVA tenderness. Abdomen: Soft, non-tender, bowel sounds active all four quadrants, no masses, no organomegaly. Extremities: Extremities normal, atraumatic, no cyanosis or edema. Pulses: 2+ and symmetric. Skin: Skin color, texture, tugor normal, no rashes or lesions. Neurologic: Alert oriented x3 cranial nerves II through XII intact, no motor deficit, no abnormal balance or gait. Results CBC & Chem 7: 11/30/18 05:38 11/30/18 05:38 Labs: Abnormal Lab Results - Last 24 Hours (Table) 11/29/18 11/29/18 11/29/18 Range/Units 15:57 15:57 15:57 WBC 21.6 H (3.8-10.6) k/uL RBC 3.65 L (3.80-5.40) m/uL Hgb 10.5 L (11.4-16.0) gm/dL Hct 33.6 L (34.0-46.0) % RDW 17.6 H (11.5-15.5) % Neutrophils # 19.1 H (1.3-7.7) k/uL Chloride 92 L (98-107) mmol/L Carbon Dioxide 42 H* (22-30) mmol/L Glucose 147 H (74-99) mg/dL POC Glucose (mg/dL) (75-99) mg/dL Magnesium 1.5 L (1.6-2.3) mg/dL Alkaline Phosphatase 218 H (38-126) U/L Total Creatine Kinase <20 L (30-135) U/L Total Protein 5.7 L (6.3-8.2) g/dL Albumin 3.3 L (3.5-5.0) g/dL 11/29/18 Range/Units 19:26 WBC (3.8-10.6) k/uL RBC (3.80-5.40) m/uL Hgb (11.4-16.0) gm/dL Hct (34.0-46.0) % RDW (11.5-15.5) % Neutrophils # (1.3-7.7) k/uL Chloride (98-107) mmol/L Carbon Dioxide (22-30) mmol/L Glucose (74-99) mg/dL POC Glucose (mg/dL) 178 H (75-99) mg/dL Magnesium (1.6-2.3) mg/dL Alkaline Phosphatase (38-126) U/L Total Creatine Kinase (30-135) U/L Total Protein (6.3-8.2) g/dL Albumin (3.5-5.0) g/dL Thrombosis Risk Factor Assmnt - DVT/VTE Prophylaxis DVT/VTE Prophylaxis: Pharmacologic Prophylaxis ordered, Mechanical Prophylaxis ordered Assessment and Plan Plan: 1 acute on chronic hypoxic respiratory failure secondary to acute exacerbation of COPD and complicated bullous emphysema, very large in the right side patient might require lobectomy and extreme high possibility for another pneumothorax soon. Consult cardiothoracic along with pulmonary patient might need to be transferred to a larger center for possible surgery. 2 acute COPD exacerbation: We'll consult pulmonary, continue steroid, continue bronchodilator and steroid inhaler. 3 recurrent pneumothorax: With large bullous emphysema, patient will be seen in cardiothoracic surgeon and possible need for intervention. Our the higher possibility to transfer patient to before it for intervention and right-sided lobectomy. 4 hypertension: We'll continue patient on metoprolol. 5 recurrent pneumonitis and purulent bronchitis: Patient was on Levaquin recently might be in coverage for atypical along with gram-negative watch his the hospital this time. 6 chronic diarrhea: Has been on Imodium on an as-needed basis. 7 chronic pain syndrome: Has been on hydrocodone. 8 chronic depression: Continue patient on BuSpar 10 mg 3 times a day along with Cymbalta 50 mg twice a day. 9 chronic arrhythmia: Mostly tachycardia from her hypoxia has been on metoprolol continue medication. 10 chronic neuropathy: Patient can be continue on gabapentin 300 mg 3 times a day. 11 nicotine dependency: Has been on nicotine patch or Nicorette. 12 GI prophylaxis: Patient will be on omeprazole. 13 DVT prophylaxis: Patient will be on heparin subcutaneous along with knee- high EMELIA hose. CODE STATUS: Full code. Admit patient to inpatient status for more than 2 nights.
--- NOTE | 2018-11-30 12:58 | P.DS ---
Providers Date of admission: 11/29/18 17:40 Attending physician: Tacho Siddiqui Consults: 11/29/18 17:40 Consult Physician Urgent Consulting Provider: Michael Meza Reason/Comments: COPD Do you want consulting provider notified?: Already Contacted Primary care physician: Heber James [facility] Course: Chief Complaint: acute respiratory failur pneumothorax, COPD exce 58-year-old female of Dr. Hernandez patient was hospitalized last 2017 until 11/11/2018 with acute respiratory failure secondary to acute exacerbation of COPD complicated with bilateral pneumothorax was intubated and placed on mechanical ventilation also had bilateral chest tube at the time also patient had a brief cardiac arrest secondary to her acute on chronic hypoxic respiratory failure has improved after improving her condition. Patient is known to have severe advanced chronic obstructive pulmonary disease and bullous emphysema with FEV1 only her on 36%. Patient had recurrent episode of right sided pneumothorax 3 so far with her current infection back and forth secondary to her chronic current lung problem. Patient presented to the emergency department at [facility] with acute respiratory failure with CO2 the PD exacerbation worsening dyspnea and shortness of breath cough wheezes and significant chest pain found to be hypoxic and tachypneic and tachycardic and acute respiratory failure the time was placed on BiPAP and try to avoid intubation patient was admitted to the ICU. Pulmonary and cardiothoracic surgery would be consult. Physical examination: Vitals: Vital Signs Temp Pulse Resp BP Pulse Ox 11/29/18 19:00 126 H 24 117/78 99 11/29/18 18:30 135 H 24 91/70 98 11/29/18 18:00 141 H 24 96/69 95 11/29/18 17:30 142 H 22 109/84 95 11/29/18 17:00 141 H 26 H 110/82 99 11/29/18 16:34 151 H 22 11/29/18 16:30 142 H 24 113/84 11/29/18 16:12 148 H 24 11/29/18 16:00 142 H 23 141/98 11/29/18 15:54 99.1 F 129 H 26 H 141/98 96 11/29/18 15:52 141/98 94 L Intake and Output 11/29/18 11/29/18 11/29/18 06:59 14:59 22:59 Other: Weight 45.359 kg General Appearance: Alert, cooperative, looks much older than her age and acute respiratory distress. Neck HEENT: Supple, no lymphadenopathy, no thyroid enlargement, no carotid bruits. Lungs: hyperinflated with decreased breath sound bilaterry worse in the right than the left side with increased wheezes bilaterally. Chest Wall: decrease expansion with deep inspiration speciallyin the right side no tenderness and no deformity was found on exam, no costochondral pain or discomfort. Heart: Regular rate and rhythm, S1, S2 normal, no murmur, rub or gallop. Back: Symmetric, no curvature, ROM normal, no CVA tenderness. Abdomen: Soft, non-tender, bowel sounds active all four quadrants, no masses, no organomegaly. Extremities: Extremities normal, atraumatic, no cyanosis or edema. Pulses: 2+ and symmetric. Skin: Skin color, texture, tugor normal, no rashes or lesions. Neurologic: Alert oriented x3 cranial nerves II through XII intact, no motor deficit, no abnormal balance or gait. Plan: 1 acute on chronic hypoxic respiratory failure secondary to acute exacerbation of COPD and complicated bullous emphysema, very large in the right side patient might require lobectomy and extreme high possibility for another pneumothorax soon. Consult cardiothoracic along with pulmonary patient might need to be transferred to a larger center for possible surgery. 2 acute COPD exacerbation: We'll consult pulmonary, continue steroid, continue bronchodilator and steroid inhaler. 3 recurrent pneumothorax: With large bullous emphysema, patient will be seen in cardiothoracic surgeon and possible need for intervention. Our the higher possibility to transfer patient to before it for intervention and right-sided lobectomy. 4 hypertension: We'll continue patient on metoprolol. 5 recurrent pneumonitis and purulent bronchitis: Patient was on Levaquin recently might be in coverage for atypical along with gram-negative watch his the hospital this time. 6 chronic diarrhea: Has been on Imodium on an as-needed basis. 7 chronic pain syndrome: Has been on hydrocodone. 8 chronic depression: Continue patient on BuSpar 10 mg 3 times a day along with Cymbalta 50 mg twice a day. 9 chronic arrhythmia: Mostly tachycardia from her hypoxia has been on metoprolol continue medication. 10 chronic neuropathy: Patient can be continue on gabapentin 300 mg 3 times a day. 11 nicotine dependency: Has been on nicotine patch or Nicorette. 12 GI prophylaxis: Patient will be on omeprazole. 13 DVT prophylaxis: Patient will be on heparin subcutaneous along with knee- high EMELIA hose. Patient was seen and evaluated by pulmonary and with the severity of the bullous emphysema in the right side with large bulla decided to refer patient to one of the larger institution, and before cardiothoracic were contacted patient be transferred to [facility] today 11/30. Patient Condition at Discharge: Stable Plan - Discharge Summary Discharge Rx Participant: No New Discharge Prescriptions: New Acetaminophen Tab [Tylenol] 650 mg PO Q4HR PRN tab PRN Reason: Fever And/Or Mild Pain Famotidine [Pepcid] 20 mg PO BID tab Formoterol Fumarate [Perforomist] 20 mcg INHALATION RT-BID nebu Heparin Sodium,Porcine [Heparin Sodium] 5,000 unit SQ Q8HR vial Insulin Aspart [NovoLOG (formulary)] 0 unit SQ ACHS vial Ipratropium-Albuterol Nebulize [Duoneb 0.5 mg-3 mg/3 ml Soln] 3 ml INHALATION RT-QID ampul.neb Ipratropium-Albuterol Nebulize [Duoneb 0.5 mg-3 mg/3 ml Soln] 3 ml INHALATION RT-Q4H PRN ampul.neb PRN Reason: Shortness Of Breath Or Wheezing Continue Latanoprost Ophth [Xalatan 0.005%] 1 drop BOTH EYES HS Dicyclomine [Bentyl] 10 mg PO TID Cyanocobalamin [Vitamin B-12 Injection] 1,000 mcg SQ Q30D Budesonide 1 mg INHALATION RT-BID PRN PRN Reason: Shortness Of Breath Gabapentin [Neurontin] 300 mg PO TID Opium Tincture 10mg/1ml 20 mg PO QID PRN PRN Reason: BOWEL/DIARRHEA ISSUES HYDROcodone/APAP 10-325MG [[place] 10-325] 1 tab PO Q4H PRN PRN Reason: Pain Colchicine [Colcrys] 0.6 mg PO DAILY #21 each DULoxetine HCL [Cymbalta] 30 mg PO BID #60 capsule.dr Melatonin 15 mg PO HS tablet Metoprolol Tartrate [Lopressor] 50 mg PO TID #90 tab Albuterol Nebulized [Ventolin Nebulized] 2.5 mg INHALATION RT-QID PRN #120 nebu PRN Reason: Shortness Of Breath Magnesium Oxide [Mag-Ox] 400 mg PO DAILY #30 tablet Multivitamins, Thera [Multivitamin (formulary)] 1 tab PO DAILY Guaifen/Phenyleph/Acetaminophn [Mucinex Sinus-Max Severe Liq] 10 ml PO Q6H PRN PRN Reason: Cough Calcium Gummy 500mg 500 mg PO DAILY Aclidinium [place] [Tudorza Pressair] 1 puff INHALATION RT-BID Mercaptopurine [Purinethol] 50 mg PO BID busPIRone HCl [Buspar] 10 mg PO BID Fluticasone/Vilanterol [Breo Ellipta 200-25 Mcg INH] 1 puff INHALATION RT- DAILY Cholecalciferol (Vitamin D3) [Vitamin D3] 2,000 unit PO DAILY Discharge Medication List Latanoprost Ophth [Xalatan 0.005%] 1 drop BOTH EYES HS 05/21/17 [History] Cyanocobalamin [Vitamin B-12 Injection] 1,000 mcg SQ Q30D 07/24/18 [History] Dicyclomine [Bentyl] 10 mg PO TID 07/24/18 [History] Budesonide 1 mg INHALATION RT-BID PRN 09/27/18 [History] Gabapentin [Neurontin] 300 mg PO TID 09/27/18 [History] HYDROcodone/APAP 10-325MG [[place] 10-325] 1 tab PO Q4H PRN 09/27/18 [History] Opium Tincture 10mg/1ml 20 mg PO QID PRN 09/27/18 [History] Colchicine [Colcrys] 0.6 mg PO DAILY #21 each 10/16/18 [Rx] DULoxetine HCL [Cymbalta] 30 mg PO BID #60 capsule. 10/16/18 [Rx] Melatonin 15 mg PO HS tablet 10/16/18 [Rx] Albuterol Nebulized [Ventolin Nebulized] 2.5 mg INHALATION RT-QID PRN #120 nebu 11/10/18 [Rx] Metoprolol Tartrate [Lopressor] 50 mg PO TID #90 tab 11/10/18 [Rx] Magnesium Oxide [Mag-Ox] 400 mg PO DAILY #30 tablet 11/11/18 [Rx] Aclidinium [place] [Tudorza Pressair] 1 puff INHALATION RT-BID 11/29/18 [History ] Calcium Gummy 500mg 500 mg PO DAILY 11/29/18 [History] Cholecalciferol (Vitamin D3) [Vitamin D3] 2,000 unit PO DAILY 11/29/18 [History] Fluticasone/Vilanterol [Breo Ellipta 200-25 Mcg INH] 1 puff INHALATION RT-DAILY 11/29/18 [History] Guaifen/Phenyleph/Acetaminophn [Mucinex Sinus-Max Severe Liq] 10 ml PO Q6H PRN 11/29/18 [History] Mercaptopurine [Purinethol] 50 mg PO BID 11/29/18 [History] Multivitamins, Thera [Multivitamin (formulary)] 1 tab PO DAILY 11/29/18 [History ] busPIRone HCl [Buspar] 10 mg PO BID 11/29/18 [History] Acetaminophen Tab [Tylenol] 650 mg PO Q4HR PRN tab 11/30/18 [Rx] Famotidine [Pepcid] 20 mg PO BID tab 11/30/18 [Rx] Formoterol Fumarate [Perforomist] 20 mcg INHALATION RT-BID nebu 11/30/18 [Rx] Heparin Sodium,Porcine [Heparin Sodium] 5,000 unit SQ Q8HR vial 11/30/18 [Rx] Insulin Aspart [NovoLOG (formulary)] 0 unit SQ ACHS vial 11/30/18 [Rx] Ipratropium-Albuterol Nebulize [Duoneb 0.5 mg-3 mg/3 ml Soln] 3 ml INHALATION RT -Q4H PRN ampul.neb 11/30/18 [Rx] Ipratropium-Albuterol Nebulize [Duoneb 0.5 mg-3 mg/3 ml Soln] 3 ml INHALATION RT -QID ampul.neb 11/30/18 [Rx] Follow up Appointment(s)/Referral(s): Heber James MD [Primary Care Provider] - 1-2 days
[2018-11-30 14:07] VITALS: BP 113/69; PULSE 115; RESP 16
[2018-11-30 18:11] LABS: Hemoglobin A1C 5.3 % (4.0-6.0)
[2018-12-16] MEDS ORDERED: CYANOCOBALAMIN 1,000 MCG/ML 1 ML VIAL SQ SCH (12:00)
== END 2018-11-30 15:56 | disposition short-term general hospital (02) | DRG 190 ==
LOC: EC 15:43 → 2SICU 17:40
PROVIDERS: ADMIT Internal Medicine Geriatric Medicine; ATTEND Internal Medicine Geriatric Medicine
DX: J43.9 Emphysema, unspecified (principal); J96.21 Acute and chronic respiratory failure with hypoxia; E87.2 Acidosis; K50.90 Crohn's disease, unspecified, without complications; D64.9 Anemia, unspecified; E03.9 Hypothyroidism, unspecified; E78.5 Hyperlipidemia, unspecified; F32.9 Major depressive disorder, single episode, unspecified; F41.9 Anxiety disorder, unspecified; G62.9 Polyneuropathy, unspecified; G89.4 Chronic pain syndrome; I10 Essential (primary) hypertension; K21.9 Gastro-esophageal reflux disease without esophagitis; M79.7 Fibromyalgia; M81.0 Age-related osteoporosis without current pathological fracture; J30.2 Other seasonal allergic rhinitis; R00.0 Tachycardia, unspecified; M15.9 Polyosteoarthritis, unspecified; K52.9 Noninfective gastroenteritis and colitis, unspecified; Z79.52 Long term (current) use of systemic steroids; Z79.899 Other long term (current) drug therapy; Z99.81 Dependence on supplemental oxygen; Z90.721 Acquired absence of ovaries, unilateral; Z90.710 Acquired absence of both cervix and uterus; Z90.49 Acquired absence of other specified parts of digestive tract; Z87.01 Personal history of pneumonia (recurrent); Z88.2 Allergy status to sulfonamides; Z88.8 Allergy status to other drugs, medicaments and biological substances; Z88.6 Allergy status to analgesic agent; Z91.041 Radiographic dye allergy status; Z86.74 Personal history of sudden cardiac arrest; Z87.891 Personal history of nicotine dependence; Z83.3 Family history of diabetes mellitus; Z82.5 Family history of asthma and other chronic lower respiratory diseases; Z82.49 Family history of ischemic heart disease and other diseases of the circulatory system; Z82.61 Family history of arthritis; Z80.8 Family history of malignant neoplasm of other organs or systems; Z82.3 Family history of stroke
CPT/HCPCS: 36415; 51702; 71045; 71250; 80048; 80053; 82550; 82553; 83036; 83605; 83735; 84100; 84484; 85025; 85610; 85730; 87040; 93005; 94640; 96361; 96365; 96375; 96376; 99291; 99292

== ENCOUNTER 2018-12-27 23:53 | Inpatient (IN) | payer BC ==
[2018-12-28] MEDS ORDERED: SODIUM CHLORIDE 0.9% 500 ML 500 ML IV STA (00:45)
[2018-12-28] MEDS ORDERED: MORPHINE SULFATE 4 MG/ML SYRINGE IV STA (00:45)
--- NOTE | 2018-12-28 01:06 | ED ---
Nausea/Vomiting/Diarrhea HPI - General Chief complaint: Nausea/Vomiting/Diarrhea Stated complaint: Nausea, vomiting Time Seen by Provider: 12/27/18 23:58 Source: patient, EMS Mode of arrival: EMS Limitations: no limitations - History of Present Illness Initial comments: 58-year-old female patient with extensive past medical history including Crohn' s colitis and COPD presents to the emergency department today for evaluation of increased shortness of breath, vomiting, and diarrhea. Patient states that she has been having intermittent diarrhea over the last week. States that she started vomiting today. Patient states she has had several episodes of vomiting and is unable to keep down any food or fluids. States that she feels weak and dehydrated. Patient states that she did take Zofran at home but it didn't seem to help. Patient states the exertion from vomiting has caused her to have increase in shortness of breath. She does report a chronic cough. Denies any fevers or chills with this. States she is having generalized abdominal cramping and discomfort. Denies any radiation of the pain through to her back. Denies any hematochezia, melena, or hematemesis. Patient denies any recent rash, shortness breath, chest pain, constipation, back pain, numbness, tingling, dizziness, weakness, hematuria, dysuria, urinary urgency, urinary frequency, headache, visual changes, or any other complaints. She denies any antibiotic use in the last couple of months or history of C. diff. - Related Data Home Medications Medication Instructions Recorded Confirmed Latanoprost Ophth [Xalatan 0.005%] 1 drop BOTH EYES HS 05/21/17 11/29/18 Cyanocobalamin [Vitamin B-12 1,000 mcg SQ Q30D 07/24/18 11/29/18 Injection] Dicyclomine [Bentyl] 10 mg PO TID 07/24/18 11/29/18 Budesonide 1 mg INHALATION RT-BID PRN 09/27/18 11/29/18 Gabapentin [Neurontin] 300 mg PO TID 09/27/18 11/29/18 HYDROcodone/APAP 10-325MG [Uneeda 1 tab PO Q4H PRN 09/27/18 11/29/18 10-325] Opium Tincture 10mg/1ml 20 mg PO QID PRN 09/27/18 11/29/18 Aclidinium [place] [Tudorza 1 puff INHALATION RT-BID 11/29/18 11/29/18 Pressair] Calcium Gummy 500mg 500 mg PO DAILY 11/29/18 11/29/18 Cholecalciferol (Vitamin D3) 2,000 unit PO DAILY 11/29/18 11/29/18 [Vitamin D3] Fluticasone/Vilanterol [Breo 1 puff INHALATION RT-DAILY 11/29/18 11/29/18 Ellipta 200-25 Mcg INH] Guaifen/Phenyleph/Acetaminophn 10 ml PO Q6H PRN 11/29/18 11/29/18 [Mucinex Sinus-Max Severe Liq] Mercaptopurine [Purinethol] 50 mg PO BID 11/29/18 11/29/18 Multivitamins, Thera [Multivitamin 1 tab PO DAILY 11/29/18 11/29/18 (formulary)] busPIRone HCl [Buspar] 10 mg PO BID 11/29/18 11/29/18 Previous Rx's Medication Instructions Recorded Colchicine [Colcrys] 0.6 mg PO DAILY #21 each 10/16/18 DULoxetine HCL [Cymbalta] 30 mg PO BID #60 capsule. 10/16/18 Melatonin 15 mg PO HS tablet 10/16/18 Albuterol Nebulized [Ventolin 2.5 mg INHALATION RT-QID PRN #120 11/10/18 Nebulized] nebu Metoprolol Tartrate [Lopressor] 50 mg PO TID #90 tab 11/10/18 Magnesium Oxide [Mag-Ox] 400 mg PO DAILY #30 tablet 11/11/18 Acetaminophen Tab [Tylenol] 650 mg PO Q4HR PRN tab 11/30/18 Famotidine [Pepcid] 20 mg PO BID tab 11/30/18 Formoterol Fumarate [Perforomist] 20 mcg INHALATION RT-BID nebu 11/30/18 Heparin Sodium,Porcine [Heparin 5,000 unit SQ Q8HR vial 11/30/18 Sodium] INSULIN ASPART (NovoLOG) [NovoLOG 0 unit SQ ACHS vial 11/30/18 (formulary)] Ipratropium-Albuterol Nebulize 3 ml INHALATION RT-Q4H PRN 11/30/18 [Duoneb 0.5 mg-3 mg/3 ml Soln] ampul.neb Ipratropium-Albuterol Nebulize 3 ml INHALATION RT-QID ampul.neb 11/30/18 [Duoneb 0.5 mg-3 mg/3 ml Soln] Allergies Allergy/AdvReac Type Severity Reaction Status Date / Time Iodinated Contrast- Oral and Allergy Anaphylaxis Verified 12/27/18 23:58 IV Dye pregabalin [From Lyrica] Allergy Unknown Verified 12/27/18 23:58 rofecoxib [From Vioxx] Allergy Unknown Verified 12/27/18 23:58 Sulfa (Sulfonamide Allergy Rash/Hives Verified 12/27/18 23:58 Antibiotics) aspirin AdvReac Internal Verified 12/27/18 23:58 Bleeding timolol [Timolol] AdvReac Nausea & Verified 12/27/18 23:58 Vomiting Review of Systems ROS Statement: Those systems with pertinent positive or pertinent negative responses have been documented in the HPI. ROS Other: All systems not noted in ROS Statement are negative. Past Medical History Past Medical History: COPD, Fibromyalgia, GERD/Reflux, GI Bleed, Hyperlipidemia , Hypertension, Osteoarthritis (OA), Pneumonia, Syncope Additional Past Medical History / Comment(s): in past took meds for high blood pressure.COPD-02 3 liters n/c atc, crohn's, bowel obstructions, lower GI bleeds , hiatal hernia, osteoporosis, arthritis multiple joints, seasonal allergies, right-sided pneumothorax x2; ventilator 07/24/18 - transfer from [facility] r/t bollas History of Any Multi-Drug Resistant Organisms: None Reported Past Surgical History: Breast Surgery, Cholecystectomy, Hernia Repair, Hysterectomy, Orthopedic Surgery Additional Past Surgical History / Comment(s): Multiple bowel surgeries including total colectomy/ileostomy, ileostomy moved/repaired, R tube and R ovary removed due tectopic , total hysterectomy, leep procedure, laparoscopy for endometriosis, L breast lumpectomy-benign, r breast core bx- benign, EGD/colonoscopies. Right-sided Thora-vent placement May 09 and May 19. Eye surgery bilateral,arthroscopic knee surgery on he right due to ACL and Maniscal tear. past mechanical ventilator dependence,( trach and peg tube-since removed), is having a bleb removed from the right lung on 01/15/19 Past Anesthesia/Blood Transfusion Reactions: No Reported Reaction Past Psychological History: Anxiety, Depression Smoking Status: Former smoker Past Alcohol Use History: None Reported Past Drug Use History: None Reported - Past Family History Mother Family Medical History: Cancer, COPD, Hypertension Additional Family Medical History / Comment(s): Mother at age 83 from COPD and osteoarthritis and had skin cancer. Father Family Medical History: Cancer, CVA/TIA, Dementia, Diabetes Mellitus Additional Family Medical History / Comment(s): Father is 90yrs old. Brother(s) Family Medical History: Cancer Additional Family Medical History / Comment(s): Patient had 5 brothers and one of them from melanoma at age 41. Sister(s) History Unknown: Yes Family Medical History: No Reported History Additional Family Medical History / Comment(s): Patient has one sister. Patient has no kids. General Exam Limitations: no limitations General appearance: alert, in no apparent distress, other (Physical well- developed, ill-appearing adult female patient in no acute distress. Vital signs upon presentation are temperature 98.3F, pulse 120, respirations 18, blood pressure 121/93, pulse ox 98% on room air.) Eye exam: Present: normal appearance, PERRL, EOMI. Absent: scleral icterus, conjunctival injection, periorbital swelling ENT exam: Present: normal exam, normal oropharynx, mucous membranes moist Respiratory exam: Present: decreased breath sounds. Absent: normal lung sounds bilaterally, respiratory distress, wheezes, rales, rhonchi, stridor Cardiovascular Exam: Present: normal rhythm, tachycardia, normal heart sounds. Absent: systolic murmur, diastolic murmur, rubs, gallop, clicks GI/Abdominal exam: Present: soft, tenderness (Generalized abdominal tenderness) , normal bowel sounds. Absent: distended, guarding, rebound, rigid Neurological exam: Present: alert, oriented X3, CN II-XII intact Psychiatric exam: Present: normal affect, normal mood Skin exam: Present: warm, dry, intact, normal color. Absent: rash Course Vital Signs 12/27/18 23:58 Temperature 98.3 F Pulse Rate 120 H Respiratory 18 Rate Blood Pressure 121/93 O2 Sat by Pulse 98 Oximetry Medical Decision Making - Medical Decision Making 58-year-old female patient with past medical history significant for COPD and Crohn's colitis with multiple medical problems presents to the emergency department today for evaluation of vomiting and diarrhea and shortness of breath. Physical examination did reveal mild abdominal tenderness. Labs reviewed and did reveal evidence for hypokalemia, hypomagnesemia, and elevated carbon dioxide. Patient was given multiple doses of pain and nausea medicine here in the department, she continued to complain of nausea and abdominal pain. She'll be admitted for IV hydration, further evaluation and management of her symptoms. - Lab Data Result diagrams: 12/28/18 00:15 12/28/18 00:15 Lab Results 12/28/18 12/28/18 12/28/18 Range/Units 00:15 00:15 00:15 WBC 2.8 L (3.8-10.6) k/uL RBC 3.28 L (3.80-5.40) m/uL Hgb 10.4 L (11.4-16.0) gm/dL Hct 32.0 L (34.0-46.0) % MCV 97.5 (80.0-100.0) fL MCH 31.8 (25.0-35.0) pg MCHC 32.6 (31.0-37.0) g/dL RDW 21.3 H (11.5-15.5) % Plt Count 319 (150-450) k/uL Neutrophils % 46 % Lymphocytes % 43 % Monocytes % 2 % Eosinophils % 7 % Basophils % 0 % Neutrophils # 1.3 (1.3-7.7) k/uL Lymphocytes # 1.2 (1.0-4.8) k/uL Monocytes # 0.1 (0-1.0) k/uL Eosinophils # 0.2 (0-0.7) k/uL Basophils # 0.0 (0-0.2) k/uL Hypochromasia Slight Poikilocytosis Slight Anisocytosis Moderate Macrocytosis Moderate PT 10.9 (9.0-12.0) sec INR 1.0 (<1.2) APTT 24.4 (22.0-30.0) sec Sodium 138 (137-145) mmol/L Potassium 3.4 L (3.5-5.1) mmol/L Chloride 92 L (98-107) mmol/L Carbon Dioxide 41 H* (22-30) mmol/L Anion Gap 5 mmol/L BUN 13 (7-17) mg/dL Creatinine 0.66 (0.52-1.04) mg/dL Est GFR (CKD-EPI)AfAm >90 (>60 ml/min/1.73 sqM) Est GFR (CKD-EPI)NonAf >90 (>60 ml/min/1.73 sqM) Glucose 139 H (74-99) mg/dL Calcium 9.2 (8.4-10.2) mg/dL Magnesium 1.4 L (1.6-2.3) mg/dL Total Bilirubin 0.7 (0.2-1.3) mg/dL AST 65 H (14-36) U/L ALT 87 H (9-52) U/L Alkaline Phosphatase 101 (38-126) U/L Troponin I (0.000-0.034) ng/mL Total Protein 5.6 L (6.3-8.2) g/dL Albumin 3.4 L (3.5-5.0) g/dL Amylase <30 L (30-110) U/L Lipase 55 (23-300) U/L Urine Color Urine Appearance (Clear) Urine pH (5.0-8.0) Ur Specific [place] (1.001-1.035) Urine Protein (Negative) Urine Glucose (UA) (Negative) Urine Ketones (Negative) Urine Blood (Negative) Urine Nitrite (Negative) Urine Bilirubin (Negative) Urine Urobilinogen (<2.0) mg/dL Ur Leukocyte Esterase (Negative) Urine RBC (0-5) /hpf Urine WBC (0-5) /hpf Ur Squamous Epith Cells (0-4) /hpf Amorphous Sediment (None) /hpf Urine Bacteria (None) /hpf Hyaline Casts (0-2) /lpf Urine Mucus (None) /hpf C. difficile (EIA) Intrp (Negative) 12/28/18 12/28/18 12/28/18 Range/Units 00:15 03:00 03:00 WBC (3.8-10.6) k/uL RBC (3.80-5.40) m/uL Hgb (11.4-16.0) gm/dL Hct (34.0-46.0) % MCV (80.0-100.0) fL MCH (25.0-35.0) pg MCHC (31.0-37.0) g/dL RDW (11.5-15.5) % Plt Count (150-450) k/uL Neutrophils % % Lymphocytes % % Monocytes % % Eosinophils % % Basophils % % Neutrophils # (1.3-7.7) k/uL Lymphocytes # (1.0-4.8) k/uL Monocytes # (0-1.0) k/uL Eosinophils # (0-0.7) k/uL Basophils # (0-0.2) k/uL Hypochromasia Poikilocytosis Anisocytosis Macrocytosis PT (9.0-12.0) sec INR (<1.2) APTT (22.0-30.0) sec Sodium (137-145) mmol/L Potassium (3.5-5.1) mmol/L Chloride (98-107) mmol/L Carbon Dioxide (22-30) mmol/L Anion Gap mmol/L BUN (7-17) mg/dL Creatinine (0.52-1.04) mg/dL Est GFR (CKD-EPI)AfAm (>60 ml/min/1.73 sqM) Est GFR (CKD-EPI)NonAf (>60 ml/min/1.73 sqM) Glucose (74-99) mg/dL Calcium (8.4-10.2) mg/dL Magnesium (1.6-2.3) mg/dL Total Bilirubin (0.2-1.3) mg/dL AST (14-36) U/L ALT (9-52) U/L Alkaline Phosphatase (38-126) U/L Troponin I <0.012 (0.000-0.034) ng/mL Total Protein (6.3-8.2) g/dL Albumin (3.5-5.0) g/dL Amylase (30-110) U/L Lipase (23-300) U/L Urine Color Yellow Urine Appearance Cloudy H (Clear) Urine pH 7.5 (5.0-8.0) Ur Specific [place] 1.020 (1.001-1.035) Urine Protein 1+ H (Negative) Urine Glucose (UA) Negative (Negative) Urine Ketones Negative (Negative) Urine Blood Negative (Negative) Urine Nitrite Negative (Negative) Urine Bilirubin Negative (Negative) Urine Urobilinogen <2.0 (<2.0) mg/dL Ur Leukocyte Esterase Small H (Negative) Urine RBC 2 (0-5) /hpf Urine WBC 22 H (0-5) /hpf Ur Squamous Epith Cells 2 (0-4) /hpf Amorphous Sediment Rare H (None) /hpf Urine Bacteria Rare H (None) /hpf Hyaline Casts 17 H (0-2) /lpf Urine Mucus Occasional H (None) /hpf C. difficile (EIA) Intrp Negative (Negative) - Radiology Data Radiology results: report reviewed, image reviewed Two-view x-ray of the chest is obtained. Report is reviewed in its entirety. Impression by Dr. Lazo shows persistent asymmetric possibly vasculature involving the right lung consistent with known asymmetric large bullous disease. No evidence for new focal consolidation or significant interval change and previous radiographic evaluation. Disposition Clinical Impression: Intractable vomiting, Intractable diarrhea, Hypokalemia, Hypomagnesemia Disposition: ADMITTED IP TO THIS [facility] Condition: Serious Referrals: Heber James MD [Primary Care Provider] - 1-2 days Decision to Admit Reason: Admit from EC Decision Date: 12/28/18 Decision Time: 03:57
[2018-12-28 01:11] LABS: Anisocytosis Moderate; Basophils % (A) 0 %; Eosinophils # (A) 0.2 k/uL (0-0.7); Eosinophils % (A) 7 %; HGB 10.4 gm/dL (11.4-16.0); Hypochromasia Slight; Lymphocytes # (A) 1.2 k/uL (1.0-4.8); Lymphocytes % (A) 43 %; MCH 31.8 pg (25.0-35.0); MCHC 32.6 g/dL (31.0-37.0); MCV 97.5 fL (80.0-100.0); Macrocytosis Moderate; Mean Platelet Volume 6.8; Monocytes # (A) 0.1 k/uL (0-1.0); Monocytes % (A) 2 %; Neutrophils # (A) 1.3 k/uL (1.3-7.7); Neutrophils % (A) 46 %; Platelet Count 319 k/uL (150-450); Poikilocytosis Slight; RBC 3.28 m/uL (3.80-5.40); RDW 21.3 % (11.5-15.5); WBC 2.8 k/uL (3.8-10.6)
[2018-12-28 01:14] LABS: ALT 87 U/L (9-52); AST 65 U/L (14-36); Albumin 3.4 g/dL (3.5-5.0); Alkaline Phosphatase 101 U/L (38-126); Blood Urea Nitrogen 13 mg/dL (7-17); Calcium 9.2 mg/dL (8.4-10.2); Chloride 92 mmol/L (98-107); Glucose 139 mg/dL (74-99); Lipase 55 U/L (23-300); Magnesium 1.4 mg/dL (1.6-2.3); Partial Thromboplastin Time 24.4 sec (22.0-30.0); Potassium 3.4 mmol/L (3.5-5.1); Prothrombin Time 10.9 sec (9.0-12.0); Sodium 138 mmol/L (137-145); Total Bilirubin 0.7 mg/dL (0.2-1.3); Total Protein 5.6 g/dL (6.3-8.2)
--- NOTE | 2018-12-28 01:16 | XR ---
EXAM: XR Chest, 2 Views CLINICAL HISTORY: Chest Pain TECHNIQUE: Frontal and lateral views of the chest. COMPARISON: 11/29/2018; CT chest 11/29/2018 FINDINGS: Lungs: Hyperexpansion of the lungs is again identified with flattening of the hemidiaphragms. There is a persistent asymmetric paucity of vasculature involving the right lung consistent with known asymmetric large bullous disease. No focal or consolidation is suggested. Asymmetric fullness of the right hilum is similar to previous exam consistent with known compressive changes in this region. The previously noted cavitating changes in the left upper lobe are partially obscured in the frontal projection by overlying EKG artifact but thought to be without significant alteration. Pleural space: Blunting of the costophrenic margins is presumed related to hyperexpansion without evidence of pleural effusion. No pneumothorax. Heart: The cardiac silhouette is normal in size. Mediastinum: The trachea is midline. Bones/joints: No significant interval change in chronic compression fractures midthoracic spine. IMPRESSION: Persistent asymmetric paucity of vasculature involving the right lung consistent with known asymmetric large bullous disease. No evidence for new focal consolidation or significant interval change from previous radiographic evaluation.
[2018-12-28 01:20] LABS: Anion Gap 5 mmol/L
[2018-12-28 01:24] LABS: Amylase <30 U/L (30-110); Carbon Dioxide 41 mmol/L (22-30)
[2018-12-28] MEDS ORDERED: Magnesium Replacement Protocol 1 EACH MISC MISCELLANE PRN (02:01)
[2018-12-28] MEDS ORDERED: Potassium Replacement Protocol 1 EACH MISC MISCELLANE PRN (02:01)
[2018-12-28] MEDS ORDERED: METOCLOPRAMIDE 5 MG/ML 2 ML VIAL IVP STA (02:05)
[2018-12-28] MEDS ORDERED: MORPHINE SULFATE 4 MG/ML SYRINGE IVP STA (02:05)
[2018-12-28] MEDS ORDERED: diphenhydrAMINE 50 MG/ML 1 ML VIAL IVP STA ×2 (02:06→04:10)
[2018-12-28] MEDS ORDERED: SODIUM CHLORIDE 0.9% 1,000 ML IV STA (02:27)
[2018-12-28] MEDS: MAGNESIUM SULFATE-D5W PMX 1 GM in DEXTROSE/WATER 1 100ML.BAG IVPB SCH ×3 (02:55→04:42)
[2018-12-28] MEDS: POTASSIUM CHLORIDE 10 MEQ in WATER FOR INJECTION 1 100ML.BAG IVPB SCH ×4 (02:58→06:21)
[2018-12-28 03:26] LABS: Amorphous Sediment,Urine Rare /hpf; Appearance,Urine Cloudy (Clear); Bacteria,Urine Rare /hpf; Bilirubin,Urine Negative (Negative); Blood,Urine Negative (Negative); Color,Urine Yellow; Glucose,Urine (UA) Negative (Negative); Hyaline Casts,Urine 17 /lpf (0-2); Ketones,Urine Negative (Negative); Leukocyte Esterase,Urine Small (Negative); Mucus,Urine Occasional /hpf; Nitrite,Urine Negative (Negative); PH, Urine 7.5 (5.0-8.0); Protein,Urine 1+ (Negative); RBC,Urine 2 /hpf (0-5); Squamous Epithelial Cell,Urine 2 /hpf (0-4); Urobilinogen,Urine <2.0 mg/dL (<2.0); WBC,Urine 22 /hpf (0-5)
[2018-12-28] MEDS ORDERED: SODIUM CHLORIDE 0.9% 500 ML 500 ML IV ONE (03:52)
[2018-12-28] MEDS ORDERED: NALOXONE 0.4 MG/ML 1 ML VIAL IV PRN (03:53)
[2018-12-28] MEDS ORDERED: FAMOTIDINE 20 MG/2 ML VIAL IV STA ×2 (04:10→14:24)
[2018-12-28] MEDS ORDERED: methylPREDNISolone SOD SUCCI 125 MG/2 ML VIAL IV STA (04:10)
[2018-12-28] MEDS ORDERED: IPRATROPIUM-ALBUTEROL 3 ML NEB INHALATION STA (04:11)
--- NOTE | 2018-12-28 05:33 | CT ---
EXAM: CT Abdomen and Pelvis With Intravenous Contrast CLINICAL HISTORY: Abdominal pain TECHNIQUE: Axial computed tomography images of the abdomen and pelvis with intravenous contrast. CTDI is 4.6 mGy and DLP is 333.6 mGy-cm. This CT exam was performed using one or more of the following dose reduction techniques: automated exposure control, adjustment of the mA and/or kV according to patient size, and/or use of iterative reconstruction technique. COMPARISON: CT abdomen and pelvis 09/27/2018; CT chest 11/29/2018 FINDINGS: Lung bases: Fibrotic and bullous changes at the lung bases are similar to previous CT examination of the chest performed 11/29/2018. ABDOMEN: Liver: See below. Gallbladder and bile ducts: Stable cholecystectomy. No ductal dilation. Pancreas: Unremarkable. No mass. No ductal dilation. Spleen: Unremarkable. No splenomegaly. Adrenals: Unremarkable. No mass. Kidneys and ureters: Delayed phase imaging demonstrates normal excreted contrast in the renal collecting system. There is no significant enhancement abnormality identified in the kidneys on initial phase imaging. However, there is diminished enhancement in the anterior aspect of the inferior right kidney suggesting perfusion or washout variability. No perinephric abnormality identified. Stomach and bowel: Fluid distended loops of small bowel throughout the abdomen and pelvis are nonspecific without definitive evidence of high- grade bowel obstruction. Right lower quadrant ileostomy is again noted. Total colostomy is again suggested with surgical clips noted in the presacral space. No definite focal mucosal thickening. PELVIS: Appendix: No findings to suggest acute appendicitis. Bladder: Diffuse bladder wall prominence is noted. Reproductive: Unremarkable as visualized. ABDOMEN and PELVIS: Intraperitoneal space: Unremarkable. No free air. No significant fluid collection. Bones/joints: There is depression of the superior endplates at L3 and L4 which are new from previous examination. Minimal bowing into the central canal is seen without significant retropulsion. These findings predominantly suggest a subacute appearance. However, there are areas of sharp cortical lucency involving the superior endplate at L3 which are somewhat age indeterminate. No dislocation. Soft tissues: Unremarkable. 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 No evidence of duplication or a right-sided IVC is noted. The left sided IVC flows into the left renal vein with a normal configuration of a suprarenal and intrahepatic IVC noted. No abdominal aortic aneurysm. Lymph nodes: Unremarkable. No enlarged lymph nodes. IMPRESSION: 1. Fluid distended loops of small bowel throughout the abdomen and pelvis are nonspecific without definitive evidence of high-grade bowel obstruction. No free intraperitoneal fluid. Right lower quadrant ileostomy is similar in appearance to previous exam. No pneumoperitoneum. 2. Diffuse bladder wall prominence is noted. This may be due to underdistention. Cystitis is difficult to entirely exclude given this appearance. Please correlate with urinalysis, as appropriate. 3. There is depression of the superior endplates at L3 and L4 which are new from previous examination. These findings predominantly suggest a subacute appearance. However, there are areas of sharp cortical lucency involving the superior endplate at L3 which are somewhat age indeterminate. Please correlate clinically. If there is focal lumbar tenderness, nonemergent MRI with STIR imaging may be helpful in evaluating for residual bone marrow edema, as clinically appropriate. 4. 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 5. Fibrotic and bullous changes at the lung bases are similar to previous CT examination of the chest performed 11/29/2018.
[2018-12-28] MEDS ORDERED: methylPREDNISolone SOD SUCCI 125 MG/2 ML VIAL IV SCH (06:00)
[2018-12-28] MEDS: MORPHINE SULFATE 4 MG/ML SYRINGE IV PRN ×5 (06:18→21:54)
[2018-12-28] MEDS: IPRATROPIUM-ALBUTEROL 3 ML NEB INHALATION SCH ×4 (07:18→20:10)
[2018-12-28 07:33] LABS: Glucose,Whole Blood 136 mg/dL (75-99)
[2018-12-28] MEDS ORDERED: PHENYLEPH PO PRN (09:10)
[2018-12-28] MEDS ORDERED: ALBUTEROL NEBULIZED 2.5 MG/3 ML INHALATION PRN (09:10)
[2018-12-28] MEDS ORDERED: ACETAMINOPHN PO PRN (09:10)
[2018-12-28] MEDS ORDERED: OPIUM TINCTURE PO PRN (09:10)
[2018-12-28] MEDS ORDERED: HYDROcodone/APAP 10-325MG 1 EACH TAB PO PRN (09:10)
[2018-12-28] MEDS: INSULIN ASPART (NovoLOG) 100 UNIT/ML VIAL SQ SCH ×4 (09:10→21:53)
[2018-12-28] MEDS ORDERED: ACETAMINOPHEN TAB 325 MG TAB PO PRN (09:10)
[2018-12-28] MEDS ORDERED: GUAIFEN PO PRN (09:10)
[2018-12-28 10:23] LABS: Anion Gap 14 mmol/L; Blood Urea Nitrogen 8 mg/dL (7-17); Calcium 8.8 mg/dL (8.4-10.2); Carbon Dioxide 26 mmol/L (22-30); Chloride 99 mmol/L (98-107); Glucose 217 mg/dL (74-99); Magnesium 2.2 mg/dL (1.6-2.3); Potassium 3.5 mmol/L (3.5-5.1); Sodium 139 mmol/L (137-145)
[2018-12-28] MEDS: METOPROLOL TARTRATE 50 MG TAB PO SCH ×3 (10:43→21:50)
[2018-12-28] MEDS: MERCAPTOPURINE 50 MG TAB PO SCH ×2 (10:43→21:53)
[2018-12-28] MEDS: ONDANSETRON 4 MG/2 ML VIAL IVP PRN ×2 (10:49→21:53)
--- NOTE | 2018-12-28 10:52 | P.CONS ---
History of Present Illness - Reason for Consult Consult date: 12/28/18 Vomiting diarrhea Requesting physician: Tacho Siddiqui - Chief Complaint Dyspnea vomiting diarrhea - History of Present Illness 58-year-old female with a history of Crohn's ileitis status post coloproctectomy with ileostomy more than 30 years ago maintained on Humira for several years, chronic anemia, advanced COPD bullous emphysema pneumothorax, chronic pain syndrome, depression, chronic neuropathy. Consult requested for nausea vomiting diarrhea. White count 2.8. Hemoglobin 10.4. INR 1.0. BUN 13. Creatinine 0.6. C. diff negative. CT abdomen fluid distended loops of small bowel through the abdomen and pelvis nonspecific without evidence of high-grade bowel obstruction. No free air. Nausea vomiting has improved diarrhea also. Denies hematemesis hematochezia or melena. Patient's last dose of Humira was Monday however she has had multiple hospitalizations over the last few months interrupting her schedule Humira and reports that she is not always receiving it as prescribed. Presently receiving IV steroids. She is scheduled to have a lung surgery January 15 at [facility]. Patient states she is allowed to continue her Humira prior to surgery. Ostomy functioning presently with minimal abdominal pain. Review of Systems Constitutional: Denies fever, chills, sweats, weight gain, or loss. HEENT: Negative for migraines, blurred vision or loss, earaches, drainage, tinnitus, oral mucosal lesions, dysphagia, or odynophagia. CARDIAC: Negative for chest pain, arrhythmias, or palpitation. RESPIRATORY: Chronic shortness of breath advanced COPD, hemoptysis, cough, or sputum production. GI: See HPI for pertinent findings. : Negative for hematuria, urgency, frequency, polyuria, or dysuria. GYNc: Denies possibility of . Negative vaginal discharge. MUSCULOSKELETAL: Negative for muscle aches, swelling, arthritis, and arthralgias. NEUROLOGIC: Negative for stroke or TIA. ENDOCRINE: Negative for thyroid problems. SKIN: Negative for rash or itching. PSYCHIATRIC: History of depression Past Medical History Past Medical History: COPD, Fibromyalgia, GERD/Reflux, GI Bleed, Osteoarthritis (OA), Pneumonia, Syncope Additional Past Medical History / Comment(s): Chron's colitis, bowel obstructions, multiple bowel surgeries including total colectomy/ileostomy, severe COPD, chronic respiratory failure, home O2 3L/NC, bullous emphysema, R lung bleb-to have R lung surgery on 01/15/19 at [facility], R pneumothorax x3, L pneumothorax x1 and had bilateral pneumothorax 09/2018-acute respiratory failure /vented/cardiac arrest, tachycardia, hiatal hernia, lower GI bleeds, arthritis in multiple joints, osteoporosis, chronic pain, seasonal allergies, bilateral glaucoma and has had bilateral eye surgery for retinal tears/holes. History of Any Multi-Drug Resistant Organisms: None Reported Past Surgical History: Breast Surgery, Cholecystectomy, Hernia Repair, Hysterectomy, Orthopedic Surgery Additional Past Surgical History / Comment(s): Multiple bowel surgeries including total colectomy/ileostomy, ileostomy moved/repaired, R salpingoophorectomy due to ectopic , total hysterectomy, leep procedure, laparoscopy for endometriosis, L breast lumpectomy-benign, r breast core bx-benign, EGD/colonoscopies, bilateral thoravents, arthroscopic knee surgery on the right due to ACL and Meniscal tear, trach and peg tube-since removed. Past Anesthesia/Blood Transfusion Reactions: No Reported Reaction Smoking Status: Former smoker - Past Family History Mother Family Medical History: Cancer, COPD, Hypertension Additional Family Medical History / Comment(s): Mother at age 83 from COPD and had osteoarthritis and skin cancer. Father Family Medical History: Cancer, CVA/TIA, Dementia, Diabetes Mellitus Additional Family Medical History / Comment(s): Father is 92 yrs old. He has had several TIAs and a CVA Brother(s) Family Medical History: Cancer Additional Family Medical History / Comment(s): Patient had 5 brothers and one of them from melanoma at age 41. Sister(s) History Unknown: Yes Family Medical History: No Reported History Additional Family Medical History / Comment(s): Patient has one sister. Patient has no children Medications and Allergies Home Medications Medication Instructions Recorded Confirmed Type Latanoprost Ophth [Xalatan 0.005%] 1 drop BOTH EYES HS 05/21/17 12/28/18 History Cyanocobalamin [Vitamin B-12 1,000 mcg SQ Q30D 07/24/18 12/28/18 History Injection] Dicyclomine [Bentyl] 10 mg PO TID PRN 07/24/18 12/28/18 History Budesonide 1 mg INHALATION RT-BID PRN 09/27/18 12/28/18 History Gabapentin [Neurontin] 300 mg PO TID 09/27/18 12/28/18 History HYDROcodone/APAP 10-325MG [[place] 1 tab PO Q4H PRN 09/27/18 12/28/18 History 10-325] Opium Tincture 10mg/1ml 20 mg PO BID PRN 09/27/18 12/28/18 History Albuterol Nebulized [Ventolin 2.5 mg INHALATION RT-QID PRN #120 11/10/18 Rx Nebulized] nebu Metoprolol Tartrate [Lopressor] 50 mg PO TID #90 tab 11/10/18 12/28/18 Rx Magnesium Oxide [Mag-Ox] 400 mg PO DAILY #30 tablet 11/11/18 12/28/18 Rx Aclidinium [place] [[place] 1 puff INHALATION RT-BID 11/29/18 12/28/18 History Pressair] Cholecalciferol (Vitamin D3) 2,000 unit PO DAILY 11/29/18 12/28/18 History [Vitamin D3] Fluticasone/Vilanterol [Breo 1 puff INHALATION RT-DAILY 11/29/18 12/28/18 History Ellipta 200-25 Mcg INH] Guaifen/Phenyleph/Acetaminophn 10 ml PO Q6H PRN 11/29/18 12/28/18 History [Mucinex Sinus-Max Severe Liq] Mercaptopurine [Purinethol] 50 mg PO BID 11/29/18 12/28/18 History Multivitamins, Thera [Multivitamin 1 tab PO DAILY 11/29/18 12/28/18 History (formulary)] busPIRone HCl [Buspar] 10 mg PO TID 11/29/18 12/28/18 History Acetaminophen Tab [Tylenol] 650 mg PO Q4HR PRN tab 11/30/18 12/28/18 Rx Famotidine [Pepcid] 20 mg PO BID tab 11/30/18 12/28/18 Rx ALPRAZolam [Xanax] 0.25 mg PO DAILY PRN 12/28/18 12/28/18 History Adalimumab [Humira Pen] 40 mg SQ Q7D 12/28/18 12/28/18 History DULoxetine HCL [Cymbalta] 30 mg PO DAILY 12/28/18 12/28/18 History Melatonin 5 mg PO HS 12/28/18 12/28/18 History Methocarbamol [Robaxin] 750 mg PO TID 12/28/18 12/28/18 History Allergies Allergy/AdvReac Type Severity Reaction Status Date / Time Iodinated Contrast- Oral and Allergy Anaphylaxis Verified 12/28/18 08:13 IV Dye pregabalin [From Lyrica] Allergy Unknown Verified 12/28/18 08:13 rofecoxib [From Vioxx] Allergy Unknown Verified 12/28/18 08:13 Sulfa (Sulfonamide Allergy Rash/Hives Verified 12/28/18 08:13 Antibiotics) aspirin AdvReac Internal Verified 12/28/18 08:13 Bleeding timolol [Timolol] AdvReac Nausea & Verified 12/28/18 08:13 Vomiting Physical Exam Vitals: Vital Signs Temp Pulse Pulse Resp BP BP Pulse Ox 12/28/18 07:32 102 H 12/28/18 07:21 106 H 100 12/28/18 07:00 98.2 F 104 H 20 132/82 99 12/28/18 06:15 98 F 100 20 98/75 99 12/28/18 05:30 105 H 16 99/70 99 12/28/18 04:51 101 H 18 12/28/18 04:38 98 18 12/28/18 04:30 96 14 98/70 100 12/28/18 04:00 107 H 14 88/71 97 12/27/18 23:58 98.3 F 120 H 18 121/93 98 Intake and Output 12/27/18 12/28/18 12/28/18 22:59 06:59 14:59 Other: Weight 42.638 kg General appearance: The patient is alert, oriented, in no acute distress. HET: Head is normocephalic and atraumatic. Pupils are equal and reactive. Oropharynx is clear without lesions. Neck: Supple without lymphadenopathy. Trachea midline. Heart: S1 S2. Regular rate and rhythm. Lungs: No crackles or wheezes are heard. Abdomen: Soft, mild tenderness across mid abdomen ostomy functioning with stool , nondistended with bowel sounds. No peritoneal signs. No palpable organomegaly or masses. Extremities: Normal skin color and turgor. No cyanosis, rash, ulceration, clubbing, or edema. Radial and pedal pulses are 2/4 bilaterally. Neurological: No focal deficits. Strength and sensation are grossly intact. Results CBC & Chem 7: 12/28/18 00:15 12/28/18 09:43 Labs: Abnormal Lab Results - Last 24 Hours (Table) 12/28/18 12/28/18 12/28/18 Range/Units 00:15 00:15 03:00 WBC 2.8 L (3.8-10.6) k/uL RBC 3.28 L (3.80-5.40) m/uL Hgb 10.4 L (11.4-16.0) gm/dL Hct 32.0 L (34.0-46.0) % RDW 21.3 H (11.5-15.5) % Potassium 3.4 L (3.5-5.1) mmol/L Chloride 92 L (98-107) mmol/L Carbon Dioxide 41 H* (22-30) mmol/L Glucose 139 H (74-99) mg/dL POC Glucose (mg/dL) (75-99) mg/dL Magnesium 1.4 L (1.6-2.3) mg/dL AST 65 H (14-36) U/L ALT 87 H (9-52) U/L Total Protein 5.6 L (6.3-8.2) g/dL Albumin 3.4 L (3.5-5.0) g/dL Amylase <30 L (30-110) U/L Urine Appearance Cloudy H (Clear) Urine Protein 1+ H (Negative) Ur Leukocyte Esterase Small H (Negative) Urine WBC 22 H (0-5) /hpf Amorphous Sediment Rare H (None) /hpf Urine Bacteria Rare H (None) /hpf Hyaline Casts 17 H (0-2) /lpf Urine Mucus Occasional H (None) /hpf 12/28/18 Range/Units 07:08 WBC (3.8-10.6) k/uL RBC (3.80-5.40) m/uL Hgb (11.4-16.0) gm/dL Hct (34.0-46.0) % RDW (11.5-15.5) % Potassium (3.5-5.1) mmol/L Chloride (98-107) mmol/L Carbon Dioxide (22-30) mmol/L Glucose (74-99) mg/dL POC Glucose (mg/dL) 136 H (75-99) mg/dL Magnesium (1.6-2.3) mg/dL AST (14-36) U/L ALT (9-52) U/L Total Protein (6.3-8.2) g/dL Albumin (3.5-5.0) g/dL Amylase (30-110) U/L Urine Appearance (Clear) Urine Protein (Negative) Ur Leukocyte Esterase (Negative) Urine WBC (0-5) /hpf Amorphous Sediment (None) /hpf Urine Bacteria (None) /hpf Hyaline Casts (0-2) /lpf Urine Mucus (None) /hpf CT scan - abdomen: report reviewed (Dr. Almanzar) Assessment and Plan (1) Crohn's ileitis Narrative/Plan: Suspect exacerbation of Crohn's ileitis Current Visit: Yes Status: Acute Code(s): K50.00 - CROHN'S DISEASE OF SMALL INTESTINE WITHOUT COMPLICATIONS SNOMED Code(s): 07135863 (2) Nausea & vomiting Current Visit: Yes Status: Acute Code(s): R11.2 - NAUSEA WITH VOMITING, UNSPECIFIED SNOMED Code(s): 02351101 (3) Diarrhea Current Visit: Yes Status: Acute Code(s): R19.7 - DIARRHEA, UNSPECIFIED SNOMED Code(s): 36667466 Plan: 1. Will advance diet. GI prophylaxis. Continue Humira. Decrease IV Solu- Medrol 60 mg every 12 hours and wean over weekend. CRP sed rate. Additional stool studies pending. Supportive measures. Will follow closely with you. Thank you for this kind referral and the opportunity to participate in the care of your patient. This consultation was discussed with Dr. Almanzar. The impression and plan of care have been directed as dictated.
[2018-12-28 11:48] LABS: Glucose,Whole Blood 191 mg/dL (75-99)
[2018-12-28 12:04] VITALS: BMI 17.2
[2018-12-28] MEDS: MULTIVITAMINS, THERA 1 EACH TAB PO SCH (12:33)
[2018-12-28] MEDS: methylPREDNISolone SOD SUCCI 125 MG/2 ML VIAL IV SCH ×2 (12:33→22:08)
--- NOTE | 2018-12-28 14:01 | P.HPIM ---
History of Present Illness H&P Date: 12/28/18 Chief Complaint: Acute abdominal pain, nausea vomiting, diarrhea, acute chronic disease coli 58-year-old female one of Dr. bernard's patient with past medical history of advanced lung disease post bilateral spontaneous pneumothorax of both side will be going for wrap partial lobe resection and [facility] for large bulla in the right side with scheduled for January 13. Patient left the hospital on November 29 when was transferred to [facility] with the recurrent spontaneous pneumothorax. Patient is known to have history of Crohn disease post subtotal colectomy with no flareup lately has been Humira which has been managed by Dr. Ram regular basis. [facility] of 3-5 days of worsening abdominal pain with nausea and vomiting severe dehydration not been able to keep any food or fluid down. Patient had low-grade temperature was seen in demurs department CT of the abdomen chest x-ray and her lab value didn' t show much abnormality at this time. Patient continued to have significant diarrhea to her ostomy along with nausea vomiting that she had frequent recurrent episode of ulcerative colitis flareup similar to admit past. Patient was hospitalized started hydration we'll consult gastrology and consult pulmonary as well. Patient was started on large dose of steroid with Solu- Medrol 60 mg every 8 hours and switch to 12 hours only by gastroenterology try to control her colitis. Review of Systems CONSTITUTIONAL: Well-developed no acute respiratory distress. EYES: No icterus sclerae, no conjunctivitis. EARS, NOSE, MOUTH, THROAT, and FACE: No sore throat, lymphadenopathy, carotid bruits or deformity. RESPIRATORY: Positive shortness of breath cough wheezes CARDIOVASCULAR: Positive PND orthopnea palpitation no angina. GASTROINTESTINAL: Positive abdominal pain nausea vomiting and diarrhea with history of ulcerative colitis GENITOURINARY: Negative for Hematuria or UTI, no kidney stones. INTEGUMENT/BREAST: Negative for any muscular injury with mild osteoarthritis.. HEMATOLOGIC/LYMPHATIC: Negative for bleed or purpura. MUSCULOSKELTAL: Negative for Myalgia or arthralgia. NEURLOGICAL: No LOC, Sz or syncope, blurred vision dizziness or abnormality.. BEHAVIORAL/PSYCH: Negative. ENDOCRINE: Negative. Past Medical History Past Medical History: COPD, Fibromyalgia, GERD/Reflux, GI Bleed, Osteoarthritis (OA), Pneumonia, Syncope Additional Past Medical History / Comment(s): Chron's colitis, bowel obstructions, multiple bowel surgeries including total colectomy/ileostomy, severe COPD, chronic respiratory failure, home O2 3L/NC, bullous emphysema, R lung bleb-to have R lung surgery on 01/15/19 at [facility], R pneumothorax x3, L pneumothorax x1 and had bilateral pneumothorax 09/2018-acute respiratory failure /vented/cardiac arrest, tachycardia, hiatal hernia, lower GI bleeds, arthritis in multiple joints, osteoporosis, chronic pain, seasonal allergies, bilateral glaucoma and has had bilateral eye surgery for retinal tears/holes. History of Any Multi-Drug Resistant Organisms: None Reported Past Surgical History: Breast Surgery, Cholecystectomy, Hernia Repair, Hysterectomy, Orthopedic Surgery Additional Past Surgical History / Comment(s): Multiple bowel surgeries including total colectomy/ileostomy, ileostomy moved/repaired, R salpingoophorectomy due to ectopic , total hysterectomy, leep procedure, laparoscopy for endometriosis, L breast lumpectomy-benign, r breast core bx-benign, EGD/colonoscopies, bilateral thoravents, arthroscopic knee surgery on the right due to ACL and Meniscal tear, trach and peg tube-since removed. Past Anesthesia/Blood Transfusion Reactions: No Reported Reaction Smoking Status: Former smoker - Past Family History Mother Family Medical History: Cancer, COPD, Hypertension Additional Family Medical History / Comment(s): Mother at age 83 from COPD and had osteoarthritis and skin cancer. Father Family Medical History: Cancer, CVA/TIA, Dementia, Diabetes Mellitus Additional Family Medical History / Comment(s): Father is 92 yrs old. He has had several TIAs and a CVA Brother(s) Family Medical History: Cancer Additional Family Medical History / Comment(s): Patient had 5 brothers and one of them from melanoma at age 41. Sister(s) History Unknown: Yes Family Medical History: No Reported History Additional Family Medical History / Comment(s): Patient has one sister. Patient has no children Medications and Allergies Home Medications Medication Instructions Recorded Confirmed Type Latanoprost Ophth [Xalatan 0.005%] 1 drop BOTH EYES HS 05/21/17 12/28/18 History Cyanocobalamin [Vitamin B-12 1,000 mcg SQ Q30D 07/24/18 12/28/18 History Injection] Dicyclomine [Bentyl] 10 mg PO TID PRN 07/24/18 12/28/18 History Budesonide 1 mg INHALATION RT-BID PRN 09/27/18 12/28/18 History Gabapentin [Neurontin] 300 mg PO TID 09/27/18 12/28/18 History HYDROcodone/APAP 10-325MG [[place] 1 tab PO Q4H PRN 09/27/18 12/28/18 History 10-325] Opium Tincture 10mg/1ml 20 mg PO BID PRN 09/27/18 12/28/18 History Albuterol Nebulized [Ventolin 2.5 mg INHALATION RT-QID PRN #120 11/10/18 Rx Nebulized] nebu Metoprolol Tartrate [Lopressor] 50 mg PO TID #90 tab 11/10/18 12/28/18 Rx Magnesium Oxide [Mag-Ox] 400 mg PO DAILY #30 tablet 11/11/18 12/28/18 Rx Aclidinium [place] [Tudorza 1 puff INHALATION RT-BID 11/29/18 12/28/18 History Pressair] Cholecalciferol (Vitamin D3) 2,000 unit PO DAILY 11/29/18 12/28/18 History [Vitamin D3] Fluticasone/Vilanterol [Breo 1 puff INHALATION RT-DAILY 11/29/18 12/28/18 History Ellipta 200-25 Mcg INH] Guaifen/Phenyleph/Acetaminophn 10 ml PO Q6H PRN 11/29/18 12/28/18 History [Mucinex Sinus-Max Severe Liq] Mercaptopurine [Purinethol] 50 mg PO BID 11/29/18 12/28/18 History Multivitamins, Thera [Multivitamin 1 tab PO DAILY 11/29/18 12/28/18 History (formulary)] busPIRone HCl [Buspar] 10 mg PO TID 11/29/18 12/28/18 History Acetaminophen Tab [Tylenol] 650 mg PO Q4HR PRN tab 11/30/18 12/28/18 Rx Famotidine [Pepcid] 20 mg PO BID tab 11/30/18 12/28/18 Rx ALPRAZolam [Xanax] 0.25 mg PO DAILY PRN 12/28/18 12/28/18 History Adalimumab [Humira Pen] 40 mg SQ Q7D 12/28/18 12/28/18 History DULoxetine HCL [Cymbalta] 30 mg PO DAILY 12/28/18 12/28/18 History Melatonin 5 mg PO HS 12/28/18 12/28/18 History Methocarbamol [Robaxin] 750 mg PO TID 12/28/18 12/28/18 History Allergies Allergy/AdvReac Type Severity Reaction Status Date / Time Iodinated Contrast- Oral and Allergy Anaphylaxis Verified 12/28/18 08:13 IV Dye pregabalin [From Lyrica] Allergy Unknown Verified 12/28/18 08:13 rofecoxib [From Vioxx] Allergy Unknown Verified 12/28/18 08:13 Sulfa (Sulfonamide Allergy Rash/Hives Verified 12/28/18 08:13 Antibiotics) aspirin AdvReac Internal Verified 12/28/18 08:13 Bleeding timolol [Timolol] AdvReac Nausea & Verified 12/28/18 08:13 Vomiting Physical Exam Vitals: Vital Signs Temp Pulse Pulse Resp BP BP Pulse Ox 12/28/18 11:27 102 H 12/28/18 11:17 98 12/28/18 07:32 102 H 12/28/18 07:21 106 H 100 12/28/18 07:00 98.2 F 104 H 20 132/82 99 12/28/18 06:15 98 F 100 20 98/75 99 12/28/18 05:30 105 H 16 99/70 99 12/28/18 04:51 101 H 18 12/28/18 04:38 98 18 12/28/18 04:30 96 14 98/70 100 12/28/18 04:00 107 H 14 88/71 97 12/27/18 23:58 98.3 F 120 H 18 121/93 98 Intake and Output 12/27/18 12/28/18 12/28/18 22:59 06:59 14:59 Intake Total 200 Balance 200 Intake: Oral 200 Other: Weight 42.638 kg 42.638 kg General Appearance: Alert, cooperative, no distress, appears stated age. Neck HEENT: Supple, no lymphadenopathy, no thyroid enlargement, no carotid bruits. Lungs: Decreased breath sound bilaterally specially the right side with fine rhonchi positive mild inspiratory expiratory wheezes with mild rhonchi worse in the right than the left side. Chest Wall: Decreased expansion with respirations specially in the right side with slight tenderness and discomfort. Heart: Regular rhythm and rate S1-S2 positive mild tachycardia positive S3. Back: Symmetric, no curvature, ROM normal, no CVA tenderness. Abdomen: Soft positive bowel sounds slight tenderness in the mid abdominal region area ostomy in the right side looks fine with no abnormality and the stoma no sign of ventral hernia no rebound or rigidity no organomegaly. Extremities: Extremities normal, atraumatic, no cyanosis or edema. Pulses: 2+ and symmetric. Skin: Skin color, texture, tugor normal, no rashes or lesions. Neurologic: Alert oriented x3 cranial nerves II through XII intact, no motor deficit, no abnormal balance or gait. Results CBC & Chem 7: 12/28/18 00:15 12/28/18 09:43 Labs: Abnormal Lab Results - Last 24 Hours (Table) 12/28/18 12/28/18 12/28/18 Range/Units 00:15 00:15 03:00 WBC 2.8 L (3.8-10.6) k/uL RBC 3.28 L (3.80-5.40) m/uL Hgb 10.4 L (11.4-16.0) gm/dL Hct 32.0 L (34.0-46.0) % RDW 21.3 H (11.5-15.5) % Potassium 3.4 L (3.5-5.1) mmol/L Chloride 92 L (98-107) mmol/L Carbon Dioxide 41 H* (22-30) mmol/L Glucose 139 H (74-99) mg/dL POC Glucose (mg/dL) (75-99) mg/dL Magnesium 1.4 L (1.6-2.3) mg/dL AST 65 H (14-36) U/L ALT 87 H (9-52) U/L Total Protein 5.6 L (6.3-8.2) g/dL Albumin 3.4 L (3.5-5.0) g/dL Amylase <30 L (30-110) U/L Urine Appearance Cloudy H (Clear) Urine Protein 1+ H (Negative) Ur Leukocyte Esterase Small H (Negative) Urine WBC 22 H (0-5) /hpf Amorphous Sediment Rare H (None) /hpf Urine Bacteria Rare H (None) /hpf Hyaline Casts 17 H (0-2) /lpf Urine Mucus Occasional H (None) /hpf 12/28/18 12/28/18 12/28/18 Range/Units 07:08 09:43 11:37 WBC (3.8-10.6) k/uL RBC (3.80-5.40) m/uL Hgb (11.4-16.0) gm/dL Hct (34.0-46.0) % RDW (11.5-15.5) % Potassium (3.5-5.1) mmol/L Chloride (98-107) mmol/L Carbon Dioxide (22-30) mmol/L Glucose 217 H (74-99) mg/dL POC Glucose (mg/dL) 136 H 191 H (75-99) mg/dL Magnesium (1.6-2.3) mg/dL AST (14-36) U/L ALT (9-52) U/L Total Protein (6.3-8.2) g/dL Albumin (3.5-5.0) g/dL Amylase (30-110) U/L Urine Appearance (Clear) Urine Protein (Negative) Ur Leukocyte Esterase (Negative) Urine WBC (0-5) /hpf Amorphous Sediment (None) /hpf Urine Bacteria (None) /hpf Hyaline Casts (0-2) /lpf Urine Mucus (None) /hpf Microbiology - Last 24 Hours (Table) 12/28/18 03:00 Stool Culture - Preliminary Stool Thrombosis Risk Factor Assmnt - DVT/VTE Prophylaxis DVT/VTE Prophylaxis: Pharmacologic Prophylaxis ordered, Mechanical Prophylaxis ordered - Choose All That Apply Any of the Below Risk Factors Present?: Yes Each Factor Represents 1 point: Abnormal pulmonary function (COPD), Age 41-60 years, Serious lung disease incl. pneumonia (< 1month) Other Risk Factors: No Other congenital or acquired thrombophilia - If yes, enter type in comment: No Thrombosis Risk Factor Assessment Total Risk Factor Score: 3 Thrombosis Risk Factor Assessment Level: Moderate Risk Assessment and Plan Plan: 1 acute abdominal pain with worsening nausea vomiting: Most likely acute episode of colitis flareup with consult gastroenterology continue steroid for now and advance medication. 2 acute flareup of ulcerative colitis: Patient has been on Humira we'll add steroid for now continue hydration and pain management. 3 advance lung disease with multiple rupture bulla and spontaneous pneumothorax. Patient has an appointment to do partial lobectomy at [facility] in January 13. 4 advance COPD: Continue patient on O2 continue Breo, DuoNeb and Pulmicort. 5 chronic depression: Has been on Cymbalta 30 mg a day and BuSpar 10 mg 3 times a day. 6 hypertension: Remain on Lopressor 50 mg 3 times a day. 7 arrhythmia mostly tachycardia has been on Lopressor. 8 Chronic pain management: Patient has been on hydrocodone associate with gabapentin. 9 GI bleed: Hemoccult will be done patient is seen GI this drop in hemoglobin below 8 further testing including colonoscopy and blood transfusion be done. 10 GI prophylaxis/GERD: Patient remain on Pepcid. 11 DVT prophylaxis: Early mobilization and knee-high EMELIA hose. CODE STATUS: Full code. Admit patient to inpatient status for more than 2 nights.
[2018-12-28] MEDS: busPIRone HCl 10 MG TAB PO SCH ×2 (15:00→21:49)
[2018-12-28] MEDS: METHOCARBAMOL 750 MG TAB PO SCH ×2 (15:00→21:53)
[2018-12-28] MEDS: GABAPENTIN 300 MG CAP PO SCH ×2 (15:00→21:53)
--- NOTE | 2018-12-28 15:32 | P.CNPUL ---
History of Present Illness Consult date: 12/28/18 History of present illness: 58-year-old female patient is very well-known to me. 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 The patient is an extensive pulmonary history with recurrent pneumonia, respiratory failure, and pneumothoraces. The patient has required chest tube insertion in the past. She is also scheduled to undergo a bullectomy at [facility] on 01/15/2019. The patient came into the hospital yesterday because of these output from her ileostomy site. She is known to have Crohn's disease and she has diminished with Humira on outpatient basis. She had one episode of emesis. She had some nausea. No abdominal pain. Had ileostomy site is functional and she has noted increase output. Note that the patient's chronic metabolic alkalosis. Bicarbonate is above 35. Her current serum bicarbonate down to 26 which is consistent with ongoing diarrhea and loss of gastrointestinal bicarb. She has been seen by gastroenterology. The patient was started on IV Solu-Medrol. No fever. No chills. She is having oral intake. No increased respiratory distress. CAT scan of the abdomen was done in the emergency department showed fluid distended loops of small bowel throughout the abdomen and the pelvis and there was no evidence of any bowel obstruction or free intraperitoneal fluid or air. The ileostomy site was noted and there was no pneumoperitoneum. There was notation of the superior endplate of the level of L3 and L4. Similarly, fibrotic embolus changes are seen in the lungs bilaterally. The influenza screen is negative and the patient is resting comfortably in bed. No melena. No hematochezia. Review of Systems Constitutional: Reports fatigue, Reports weakness Eyes: denies as per HPI, denies blurred vision, denies bulging eye, denies decreased vision, denies diplopia, denies discharge, denies dry eye, denies irritation, denies itching, denies pain, denies photophobia, denies loss of peripheral vision, denies loss of vision, denies tunnel vision/blind spots Ears: deny: decreased hearing, ear discharge, earache, tinnitus Ears, nose, mouth and throat: Denies headache, Denies sore throat Breasts: absent: as per HPI, change in shape, gynecomastia, masses, nipple discharge, pain, skin changes, swelling Cardiovascular: Reports decreased exercise tolerance, Reports dyspnea on exertion, Reports shortness of breath Respiratory: Reports dyspnea, Reports home oxygen, Reports wheezing Gastrointestinal: Reports as per HPI, Reports diarrhea Genitourinary: Reports as per HPI Menstruation: Reports as per HPI Musculoskeletal: Reports as per HPI Musculoskeletal: absent: ankle pain, ankle stiffness, ankle swelling, as per HPI , elbow pain, elbow stiffness, elbow swelling, foot pain, foot stiffness, foot swelling, hand pain, hand stiffness, hand swelling, hip pain, hip stiffness, hip swelling, knee pain, knee stiffness, knee swelling, shoulder pain, shoulder stiffness, shoulder swelling, wrist pain, wrist stiffness, wrist swelling Integumentary: Reports as per HPI Neurological: Reports as per HPI Psychiatric: Reports as per HPI Hematologic/Lymphatic: Reports as per HPI Allergic/Immunologic: Reports as per HPI Past Medical History Past Medical History: COPD, Fibromyalgia, GERD/Reflux, GI Bleed, Osteoarthritis (OA), Pneumonia, Syncope Additional Past Medical History / Comment(s): Chron's colitis, bowel obstructions, multiple bowel surgeries including total colectomy/ileostomy, severe COPD, chronic respiratory failure, home O2 3L/NC, bullous emphysema, R lung bleb-to have R lung surgery on 01/15/19 at [facility], R pneumothorax x3, L pneumothorax x1 and had bilateral pneumothorax 09/2018-acute respiratory failure /vented/cardiac arrest, tachycardia, hiatal hernia, lower GI bleeds, arthritis in multiple joints, osteoporosis, chronic pain, seasonal allergies, bilateral glaucoma and has had bilateral eye surgery for retinal tears/holes. History of Any Multi-Drug Resistant Organisms: None Reported Past Surgical History: Breast Surgery, Cholecystectomy, Hernia Repair, Hysterectomy, Orthopedic Surgery Additional Past Surgical History / Comment(s): Multiple bowel surgeries including total colectomy/ileostomy, ileostomy moved/repaired, R salpingoophorectomy due to ectopic , total hysterectomy, leep procedure, laparoscopy for endometriosis, L breast lumpectomy-benign, r breast core bx-benign, EGD/colonoscopies, bilateral thoravents, arthroscopic knee surgery on the right due to ACL and Meniscal tear, trach and peg tube-since removed. Past Anesthesia/Blood Transfusion Reactions: No Reported Reaction Smoking Status: Former smoker - Past Family History Mother Family Medical History: Cancer, COPD, Hypertension Additional Family Medical History / Comment(s): Mother at age 83 from COPD and had osteoarthritis and skin cancer. Father Family Medical History: Cancer, CVA/TIA, Dementia, Diabetes Mellitus Additional Family Medical History / Comment(s): Father is 92 yrs old. He has had several TIAs and a CVA Brother(s) Family Medical History: Cancer Additional Family Medical History / Comment(s): Patient had 5 brothers and one of them from melanoma at age 41. Sister(s) History Unknown: Yes Family Medical History: No Reported History Additional Family Medical History / Comment(s): Patient has one sister. Patient has no children Medications and Allergies Home Medications Medication Instructions Recorded Confirmed Type Latanoprost Ophth [Xalatan 0.005%] 1 drop BOTH EYES HS 05/21/17 12/28/18 History Cyanocobalamin [Vitamin B-12 1,000 mcg SQ Q30D 07/24/18 12/28/18 History Injection] Dicyclomine [Bentyl] 10 mg PO TID PRN 07/24/18 12/28/18 History Budesonide 1 mg INHALATION RT-BID PRN 09/27/18 12/28/18 History Gabapentin [Neurontin] 300 mg PO TID 09/27/18 12/28/18 History HYDROcodone/APAP 10-325MG [Melrose 1 tab PO Q4H PRN 09/27/18 12/28/18 History 10-325] Opium Tincture 10mg/1ml 20 mg PO BID PRN 09/27/18 12/28/18 History Albuterol Nebulized [Ventolin 2.5 mg INHALATION RT-QID PRN #120 11/10/18 Rx Nebulized] nebu Metoprolol Tartrate [Lopressor] 50 mg PO TID #90 tab 11/10/18 12/28/18 Rx Magnesium Oxide [Mag-Ox] 400 mg PO DAILY #30 tablet 11/11/18 12/28/18 Rx Aclidinium Eden [Tudorza 1 puff INHALATION RT-BID 11/29/18 12/28/18 History Pressair] Cholecalciferol (Vitamin D3) 2,000 unit PO DAILY 11/29/18 12/28/18 History [Vitamin D3] Fluticasone/Vilanterol [Breo 1 puff INHALATION RT-DAILY 11/29/18 12/28/18 History Ellipta 200-25 Mcg INH] Guaifen/Phenyleph/Acetaminophn 10 ml PO Q6H PRN 11/29/18 12/28/18 History [Mucinex Sinus-Max Severe Liq] Mercaptopurine [Purinethol] 50 mg PO BID 11/29/18 12/28/18 History Multivitamins, Thera [Multivitamin 1 tab PO DAILY 11/29/18 12/28/18 History (formulary)] busPIRone HCl [Buspar] 10 mg PO TID 11/29/18 12/28/18 History Acetaminophen Tab [Tylenol] 650 mg PO Q4HR PRN tab 11/30/18 12/28/18 Rx Famotidine [Pepcid] 20 mg PO BID tab 11/30/18 12/28/18 Rx ALPRAZolam [Xanax] 0.25 mg PO DAILY PRN 12/28/18 12/28/18 History Adalimumab [Humira Pen] 40 mg SQ Q7D 12/28/18 12/28/18 History DULoxetine HCL [Cymbalta] 30 mg PO DAILY 12/28/18 12/28/18 History Melatonin 5 mg PO HS 12/28/18 12/28/18 History Methocarbamol [Robaxin] 750 mg PO TID 12/28/18 12/28/18 History Allergies Allergy/AdvReac Type Severity Reaction Status Date / Time Iodinated Contrast- Oral and Allergy Anaphylaxis Verified 12/28/18 08:13 IV Dye pregabalin [From Lyrica] Allergy Unknown Verified 12/28/18 08:13 rofecoxib [From Vioxx] Allergy Unknown Verified 12/28/18 08:13 Sulfa (Sulfonamide Allergy Rash/Hives Verified 12/28/18 08:13 Antibiotics) aspirin AdvReac Internal Verified 12/28/18 08:13 Bleeding timolol [Timolol] AdvReac Nausea & Verified 12/28/18 08:13 Vomiting Physical Exam Vitals: Vital Signs Temp Pulse Pulse Resp BP BP Pulse Ox 12/28/18 11:27 102 H 12/28/18 11:17 98 12/28/18 07:32 102 H 12/28/18 07:21 106 H 100 12/28/18 07:00 98.2 F 104 H 20 132/82 99 12/28/18 06:15 98 F 100 20 98/75 99 12/28/18 05:30 105 H 16 99/70 99 12/28/18 04:51 101 H 18 12/28/18 04:38 98 18 12/28/18 04:30 96 14 98/70 100 12/28/18 04:00 107 H 14 88/71 97 12/27/18 23:58 98.3 F 120 H 18 121/93 98 Intake and Output 12/27/18 12/28/18 12/28/18 22:59 06:59 14:59 Intake Total 200 Balance 200 Intake: Oral 200 Other: Weight 42.638 kg 42.638 kg General Appearance: Alert, cooperative, no distress, appears stated age. Neck HEENT: Supple, no lymphadenopathy, no thyroid enlargement, no carotid bruits. Lungs: Decreased breath sound bilaterally specially the right side with fine rhonchi positive mild inspiratory expiratory wheezes with mild rhonchi worse in the right than the left side. Chest Wall: Decreased expansion with respirations specially in the right side with slight tenderness and discomfort. Heart: Regular rhythm and rate S1-S2 positive mild tachycardia positive S3. Back: Symmetric, no curvature, ROM normal, no CVA tenderness. Abdomen: Soft positive bowel sounds slight tenderness in the mid abdominal region area ostomy in the right side looks fine with no abnormality and the stoma no sign of ventral hernia no rebound or rigidity no organomegaly. Extremities: Extremities normal, atraumatic, no cyanosis or edema. Pulses: 2+ and symmetric. Skin: Skin color, texture, tugor normal, no rashes or lesions. Neurologic: Alert oriented x3 cranial nerves II through XII intact, no motor deficit, no abnormal balance or gait. Results - Laboratory Findings CBC and BMP: 12/28/18 00:15 12/28/18 09:43 PT/INR, D-dimer PT 10.9 sec (9.0-12.0) 12/28/18 00:15 INR 1.0 (<1.2) 12/28/18 00:15 Abnormal lab findings: Abnormal Labs 12/28/18 12/28/18 12/28/18 00:15 00:15 03:00 WBC 2.8 L RBC 3.28 L Hgb 10.4 L Hct 32.0 L RDW 21.3 H Potassium 3.4 L Chloride 92 L Carbon Dioxide 41 H* Glucose 139 H POC Glucose (mg/dL) Magnesium 1.4 L AST 65 H ALT 87 H Total Protein 5.6 L Albumin 3.4 L Amylase <30 L Urine Appearance Cloudy H Urine Protein 1+ H Ur Leukocyte Esterase Small H Urine WBC 22 H Amorphous Sediment Rare H Urine Bacteria Rare H Hyaline Casts 17 H Urine Mucus Occasional H 12/28/18 12/28/18 12/28/18 07:08 09:43 11:37 WBC RBC Hgb Hct RDW Potassium Chloride Carbon Dioxide Glucose 217 H POC Glucose (mg/dL) 136 H 191 H Magnesium AST ALT Total Protein Albumin Amylase Urine Appearance Urine Protein Ur Leukocyte Esterase Urine WBC Amorphous Sediment Urine Bacteria Hyaline Casts Urine Mucus - Diagnostic Findings Chest x-ray: image reviewed Assessment and Plan Plan: Assessment 1 diarrhea with increased ileostomy output, consider exacerbation of underlying inflammatory bowel disease/Crohn's disease, consider an acute viral gastroenteritis 2 advanced, end-stage lung disease with bullous emphysema and previous history of recurrent pneumonias and spontaneous pneumothoraces. Overall pulmonary status is currently inactive and stable. The patient is looking for a bullectomy to be done at [facility] on 01/15/2019. The patient has a baseline FEV1 of 36% of predicted 3 chronic hypoxic respiratory failure 4 previous right-sided pneumothorax 5 chronic left upper lobe inflammatory opacity 6 hypertension 7 hyperlipidemia 8 inflammatory bowel disease/Crohn's disease with a previous bowel resection and diverting ileostomy 9 hypothyroidism 10 chronic anemia 11 fibromyalgia 12 chronic anxiety/depression Plan The plan is to IV fluids. Monitor diarrhea. Agree on the systemic steroids. GI consultation. Overall pulmonary status is stable. Restart pulmonary medications. Would optimize her pulmonary status by a bullectomy at his scheduled in few weeks time. We'll continue to follow.
[2018-12-28 17:30] LABS: Glucose,Whole Blood 132 mg/dL (75-99)
[2018-12-28] MEDS ORDERED: NON-FORMULARY DRUG (Aclidinium Bromide [Tudorza Pressair] 1 PUFF) INHALATION SCH (20:00)
[2018-12-28 20:41] LABS: Glucose,Whole Blood 173 mg/dL (75-99)
[2018-12-28] MEDS ORDERED: FAMOTIDINE 20 MG TAB PO SCH (21:00)
[2018-12-28] MEDS: PANTOPRAZOLE 40 MG/10 ML VIAL IVP SCH (21:49)
[2018-12-28] MEDS: MELATONIN 5 MG TABLET PO SCH (21:49)
[2018-12-28] MEDS: LATANOPROST 0.005% OPHTH DROPS 2.5 ML BTL BOTH EYES SCH (22:15)
[2018-12-29] MEDS: MORPHINE SULFATE 4 MG/ML SYRINGE IV PRN ×6 (01:50→21:43)
[2018-12-29] MEDS: ONDANSETRON 4 MG/2 ML VIAL IVP PRN ×2 (06:09→21:41)
[2018-12-29 06:56] LABS: Glucose,Whole Blood 163 mg/dL (75-99)
[2018-12-29] MEDS: IPRATROPIUM-ALBUTEROL 3 ML NEB INHALATION SCH ×4 (07:27→19:38)
[2018-12-29 08:20] LABS: ALT 81 U/L (9-52); AST 59 U/L (14-36); Albumin 2.5 g/dL (3.5-5.0); Alkaline Phosphatase 68 U/L (38-126); Anion Gap 1 mmol/L; Calcium 8.4 mg/dL (8.4-10.2); Carbon Dioxide 31 mmol/L (22-30); Chloride 107 mmol/L (98-107); Glucose 132 mg/dL (74-99); Magnesium 1.6 mg/dL (1.6-2.3); Sodium 139 mmol/L (137-145); Total Bilirubin 0.2 mg/dL (0.2-1.3); Total Protein 4.3 g/dL (6.3-8.2)
[2018-12-29 08:45] LABS: Blood Urea Nitrogen 12 mg/dL (7-17)
[2018-12-29] MEDS: MAGNESIUM OXIDE 400 MG TAB PO SCH (08:54)
[2018-12-29] MEDS: DULoxetine HCL 30 MG CAPSULE.DR PO SCH (08:54)
[2018-12-29] MEDS: PANTOPRAZOLE 40 MG/10 ML VIAL IVP SCH ×2 (08:54→21:39)
[2018-12-29] MEDS: INSULIN ASPART (NovoLOG) 100 UNIT/ML VIAL SQ SCH ×4 (08:54→21:46)
[2018-12-29] MEDS: MERCAPTOPURINE 50 MG TAB PO SCH ×2 (08:54→21:46)
[2018-12-29] MEDS: GABAPENTIN 300 MG CAP PO SCH ×3 (08:54→21:46)
[2018-12-29] MEDS: METOPROLOL TARTRATE 50 MG TAB PO SCH ×3 (08:54→21:46)
[2018-12-29] MEDS: busPIRone HCl 10 MG TAB PO SCH ×3 (08:54→21:46)
[2018-12-29] MEDS: METHOCARBAMOL 750 MG TAB PO SCH ×3 (08:54→21:46)
[2018-12-29] MEDS: guaiFENesin 600 MG TABLET.ER PO SCH ×2 (10:17→21:46)
[2018-12-29] MEDS: MAGNESIUM SULFATE-D5W PMX 1 GM in DEXTROSE/WATER 1 100ML.BAG IVPB SCH ×2 (10:17→11:07)
[2018-12-29] MEDS: methylPREDNISolone SOD SUCCI 125 MG/2 ML VIAL IV SCH ×2 (11:06→21:47)
--- NOTE | 2018-12-29 11:23 | P.PN ---
Subjective Progress Note Date: 12/29/18 58-year-old female one of Dr. bernard's patient with past medical history of advanced lung disease post bilateral spontaneous pneumothorax of both side will be going for wrap partial lobe resection and [facility] for large bulla in the right side with scheduled for January 13. Patient left the hospital on November 29 when was transferred to [facility] with the recurrent spontaneous pneumothorax. Patient is known to have history of Crohn disease post subtotal colectomy with no flareup lately has been Humira which has been managed by Dr. Ram regular basis. Patient presented to demurs department today complaining of 3-5 days of worsening abdominal pain with nausea and vomiting severe dehydration not been able to keep any food or fluid down. Patient had low-grade temperature was seen in demurs department CT of the abdomen chest x-ray and her lab value didn' t show much abnormality at this time. Patient continued to have significant diarrhea to her ostomy along with nausea vomiting that she had frequent recurrent episode of ulcerative colitis flareup similar to admit past. Patient was hospitalized started hydration we'll consult gastrology and consult pulmonary as well. Patient was started on large dose of steroid with Solu- Medrol 60 mg every 8 hours and switch to 12 hours only by gastroenterology try to control her colitis. 3: Patient is currently on Solu-Medrol IV 60 every 12 hours. She states that she has emptied her bag that was full 7 times in the past 24 hours which included 3 times during the night which she usually does not have to empty during the nighttime. It still liquid. She has significant amount air secondary to chewing gum. She has not noticed any blood. Her breathing is stable at this point. She has been afebrile, heart rate running in the 70s to 107, blood pressure 123/76, pulse ox 98% on 3 L nasal cannula. CO2 is 31, creatinine 0.61. Blood sugars running between 1:30 to 173. AST 59 and ALT 81. Influenza testing was negative. Patient has been seen by GI. Diet to be advanced. Continue Humira. CRP and sed rate were ordered an additional stool studies. Stool for C. difficile toxin was negative. Stool lactoferrin negative. Stool cultures in progress. Patient is followed by Dr. Mistry with overall pulmonary status stable. Patient states that she is trying to stop taking all p.m. because her insurance will no longer cover it and the cost is $1300 per month. Review of Systems CONSTITUTIONAL: Well-developed no acute respiratory distress. EYES: No icterus sclerae, no conjunctivitis. EARS, NOSE, MOUTH, THROAT, and FACE: No sore throat, lymphadenopathy, carotid bruits or deformity. RESPIRATORY: Positive shortness of breath cough wheezes CARDIOVASCULAR: Positive PND orthopnea palpitation no angina. GASTROINTESTINAL: Positive abdominal pain nausea vomiting reports diarrhea with history of ulcerative colitis GENITOURINARY: Negative for Hematuria or UTI, no kidney stones. INTEGUMENT/BREAST: Negative for any muscular injury with mild osteoarthritis.. HEMATOLOGIC/LYMPHATIC: Negative for bleed or purpura. MUSCULOSKELTAL: Negative for Myalgia or arthralgia. NEURLOGICAL: No LOC, Sz or syncope, blurred vision dizziness or abnormality.. BEHAVIORAL/PSYCH: Negative. ENDOCRINE: Negative. Objective - Vital Signs Vital signs: Vital Signs Temp 98.2 F 12/29/18 05:57 Pulse 107 H 12/29/18 05:57 Resp 16 12/29/18 05:57 BP 100/66 12/29/18 05:57 Pulse Ox 98 12/29/18 05:57 Intake & Output 12/28/18 12/29/18 12/29/18 18:59 06:59 18:59 Intake Total 520 Output Total 1 300 Balance 519 -300 Weight 42.638 kg Intake: Oral 520 Output: Stool 100 Urine/Stool Mix 1 200 Other: # Voids 2 1 - Exam General Appearance: Alert, cooperative, no distress, appears stated age. Neck HEENT: Supple, no lymphadenopathy, no thyroid enlargement, no carotid bruits. Lungs: Decreased breath sound bilaterally specially the right side with fine rhonchi positive mild inspiratory expiratory wheezes with mild rhonchi worse in the right than the left side. Chest Wall: Decreased expansion with respirations specially in the right side with slight tenderness and discomfort. Heart: Regular rhythm and rate S1-S2 positive mild tachycardia positive S3. Back: Symmetric, no curvature, ROM normal, no CVA tenderness. Abdomen: Soft positive bowel sounds slight tenderness in the mid abdominal region, ostomy in the right side looks fine with no abnormality and the stoma no sign of ventral hernia no rebound or rigidity no organomegaly. Linwood liquid stool in ostomy bag Extremities: Extremities normal, atraumatic, no cyanosis or edema. Pulses: 2+ and symmetric. Skin: Skin color, texture, tugor normal, no rashes or lesions. Neurologic: Alert oriented x3 cranial nerves II through XII intact, no motor deficit, no abnormal balance or gait. - Labs CBC & Chem 7: 12/28/18 00:15 12/29/18 07:12 Labs: Abnormal Lab Results - Last 24 Hours (Table) 12/28/18 12/28/18 12/28/18 Range/Units 09:43 11:37 17:27 Glucose 217 H (74-99) mg/dL POC Glucose (mg/dL) 191 H 132 H (75-99) mg/dL 12/28/18 12/29/18 Range/Units 20:40 06:52 Glucose (74-99) mg/dL POC Glucose (mg/dL) 173 H 163 H (75-99) mg/dL Microbiology - Last 24 Hours (Table) 12/28/18 03:00 Stool Culture - Preliminary Stool Assessment and Plan Plan: 1 acute abdominal pain with worsening nausea vomiting: Most likely acute episode of colitis flareup with consult gastroenterology continue steroid for now and advance medication. 2 acute flareup of ulcerative colitis: Patient has been on Humira we'll add steroid for now continue hydration and pain management. 3 advance lung disease with multiple rupture bulla and spontaneous pneumothorax. Patient has an appointment to do partial lobectomy at [facility] in January 13. 4 advance COPD: Continue patient on O2 continue Breo, DuoNeb and Pulmicort. 5 chronic depression: Has been on Cymbalta 30 mg a day and BuSpar 10 mg 3 times a day. 6 hypertension: Remain on Lopressor 50 mg 3 times a day. 7 arrhythmia mostly tachycardia has been on Lopressor. 8 Chronic pain management: Patient has been on hydrocodone associate with gabapentin. 9 GI bleed: Hemoccult will be done patient is seen GI this drop in hemoglobin below 8 further testing including colonoscopy and blood transfusion be done. 10 GI prophylaxis/GERD: Patient remain on Pepcid. 11 DVT prophylaxis: Early mobilization and knee-high EMELIA hose. CODE STATUS: Full code. Discharge plan: Home Impression and plan of care have been directed as dictated by the signing physician. Gaby Rothman nurse practitioner acting as scribe for signing physician.
--- NOTE | 2018-12-29 11:30 | PN ---
PROGRESS NOTE DATE OF DICTATION: 12/29/2018 Patient is a 58-year-old pleasant white female with longstanding history of Crohn's disease who is status post total proctocolectomy with ileostomy more than 35 years ago. She developed recurrent Crohn's disease approximately 10 years ago and has been maintained on Humira injections every week and 6-mercaptopurine 100 mg daily for several years. She has been in remission. Over the last 6 months she has been in and out of the hospital several times because of acute respiratory failure requiring intubation and prolonged ventilation and rehab therapy in between. She was just discharged home 2 weeks ago. She presented to the hospital 2 days ago with severe abdominal pain associated with nausea, vomiting and diarrhea and was admitted to the hospital. She has not been taking Humira on a regular basis because of multiple frequent hospitalizations. She has been complaining of increased ileostomy output. Patient was maintained on tincture of opium on an outpatient basis to control the diarrhea, but recently her insurance has not been covering the medication. She has been having to empty her ileostomy bag at least 7 to 10 times daily. She has diffuse lower abdominal pain associated with nausea, vomiting. She has been complaining of severe heartburn lately and has been under a significant amount of stress because of underlying chronic lung disease, and she is scheduled for bleb resection at [facility] on January 15. The patient was started on empiric IV steroids and she is feeling a little bit better this morning. Vomiting has resolved, but she continues to have persistent nausea. PHYSICAL EXAMINATION: She appears comfortable. No apparent distress. Vital signs are stable. Blood pressure is 103/66, pulse rate 127, temperature 98.9. HEENT EXAMINATION: Unremarkable. Conjunctivae are pink, sclerae anicteric. Oral cavity with no lesions. NECK: No JVD or lymph node enlargement. Chest was clear to auscultation. HEART: Regular rate and rhythm. ABDOMEN: Soft. Ileostomy bag in place. There was mild diffuse tenderness in the lower abdomen. EXTREMITIES: No pedal edema. SKIN: No rashes. NEURO: Alert and oriented x3. No focal deficits. LABS: Labs from yesterday showed WBC 2.8, hemoglobin 10.4. Platelets normal. Basic metabolic panel within normal limits. AST and ALT were 59 and 81, respectively. C difficile toxin is negative. Stool lactoferrin is negative. IMPRESSION: 1. Crohn's ileitis. Patient was diagnosed with Crohn's disease more than 40 years ago, status post total proctocolectomy with ileostomy almost 35 years ago. Developed recurrent Crohn's disease, as mentioned above, 10 years ago, and patient has been maintained on Humira 40 mg every week and 6-mercaptopurine 100 mg daily. For the last 6 months she has been taking Humira on and off because of multiple hospitalizations. She presented with nausea, vomiting and diarrhea with lower abdominal pain, possibly related to exacerbation of Crohn's ileitis. At present she is on IV Solu-Medrol, gradually improving. 2. End-stage lung disease/bullous emphysema/chronic obstructive pulmonary disease, being followed by Dr. Mistry closely. 3. Gastroesophageal reflux disease. 4. Chronic anxiety and depression. RECOMMENDATIONS: 1. Continue with IV Solu-Medrol 60 mg IV q.12 hours. 2. Continue with 6-mercaptopurine 100 mg daily. 3. Continue with Humira injections every one week. 4. Advance diet as tolerated. 5. Add Carafate for severe GERD. We will follow the patient closely with you during her hospital stay. Thank you for this consultation. MMODL / IJN: [id number] /
[2018-12-29 11:56] LABS: Glucose,Whole Blood 161 mg/dL (75-99)
[2018-12-29] MEDS: MULTIVITAMINS, THERA 1 EACH TAB PO SCH (12:45)
[2018-12-29] MEDS: SUCRALFATE 1 GM TAB PO SCH ×2 (12:45→17:40)
[2018-12-29] MEDS: SODIUM CHLORIDE 0.9% 1,000 ML IV SCH (12:45)
--- NOTE | 2018-12-29 13:40 | P.PN ---
Subjective Progress Note Date: 12/29/18 Principal diagnosis: Diarrhea with increased ileostomy output. Suspect IBS/Crohn's disease The patient is seen today 12/29/2017 in follow-up on the regular medical floor. She is awake and alert in no acute distress. She is sitting up at the bedside. She is having ongoing abdominal discomfort. She is having ongoing liquid stools and increased output through the ileostomy. Mostly thin fluid. He has been seen by GI services. They feel this is a Crohn's ileitis. He is continued on IV Solu-Medrol, Humira weekly, 6-mercaptopurine 100 mg daily. She is maintaining O2 saturations in the 90s on 2 L. No pulmonary complaints today. Sodium 139. Potassium 5.0. Creatinine 0.61. Objective - Vital Signs Vital signs: Vital Signs Temp 98.2 F 12/29/18 05:57 Pulse 84 12/29/18 11:29 Resp 16 12/29/18 05:57 BP 123/76 12/29/18 08:30 Pulse Ox 98 12/29/18 05:57 Intake & Output 12/28/18 12/29/18 12/29/18 18:59 06:59 18:59 Intake Total 520 237 Output Total 1 300 450 Balance 519 -300 -213 Weight 42.638 kg Intake: Oral 520 237 Output: Urine 200 Stool 100 250 Urine/Stool Mix 1 200 Other: Voiding Method Toilet # Voids 2 1 - Exam General Appearance: Alert, cooperative, no distress, appears stated age. On 2 L nasal cannula. Neck HEENT: Supple, no lymphadenopathy, no thyroid enlargement, no carotid bruits. Lungs: Decreased breath sound bilaterally specially the right side with fine rhonchi positive mild inspiratory expiratory wheezes with mild rhonchi worse in the right than the left side. Chest Wall: Decreased expansion with respirations specially in the right side with slight tenderness and discomfort. Heart: Regular rhythm and rate S1-S2 positive mild tachycardia positive S3. Back: Symmetric, no curvature, ROM normal, no CVA tenderness. Abdomen: Soft positive bowel sounds slight tenderness in the mid abdominal region area ostomy in the right side looks fine with no abnormality and the stoma no sign of ventral hernia no rebound or rigidity no organomegaly. Extremities: Extremities normal, atraumatic, no cyanosis or edema. Pulses: 2+ and symmetric. Skin: Skin color, texture, tugor normal, no rashes or lesions. Neurologic: Alert oriented x3 cranial nerves II through XII intact, no motor deficit, no abnormal balance or gait. - Labs CBC & Chem 7: 12/28/18 00:15 12/29/18 07:12 Labs: Abnormal Lab Results - Last 24 Hours (Table) 12/28/18 12/28/18 12/29/18 Range/Units 17:27 20:40 06:52 Carbon Dioxide (22-30) mmol/L Glucose (74-99) mg/dL POC Glucose (mg/dL) 132 H 173 H 163 H (75-99) mg/dL AST (14-36) U/L ALT (9-52) U/L Total Protein (6.3-8.2) g/dL Albumin (3.5-5.0) g/dL 12/29/18 12/29/18 Range/Units 07:12 11:54 Carbon Dioxide 31 H (22-30) mmol/L Glucose 132 H (74-99) mg/dL POC Glucose (mg/dL) 161 H (75-99) mg/dL AST 59 H (14-36) U/L ALT 81 H (9-52) U/L Total Protein 4.3 L (6.3-8.2) g/dL Albumin 2.5 L (3.5-5.0) g/dL Microbiology - Last 24 Hours (Table) 12/28/18 03:00 Stool Culture - Preliminary Stool Assessment and Plan Assessment: Assessment 1 diarrhea with increased ileostomy output, consider exacerbation of underlying inflammatory bowel disease/Crohn's disease, consider an acute viral gastroenteritis, Crohn's ileitis 2 advanced, end-stage lung disease with bullous emphysema and previous history of recurrent pneumonias and spontaneous pneumothoraces. Overall pulmonary status is currently inactive and stable. The patient is looking for a bullectomy to be done at [facility] on 01/15/2019. The patient has a baseline FEV1 of 36% of predicted 3 chronic hypoxic respiratory failure 4 previous right-sided pneumothorax 5 chronic left upper lobe inflammatory opacity 6 hypertension 7 hyperlipidemia 8 inflammatory bowel disease/Crohn's disease with a previous bowel resection and diverting ileostomy 9 hypothyroidism 10 chronic anemia 11 fibromyalgia 12 chronic anxiety/depression Plan The patient was seen and evaluated by Dr. Mistry. No pulmonary complaints today. She is having ongoing issues with her Crohn's and significant liquid stool. Currently on 0.9 normal saline at 50 MLS per hour. GI services are on the case. We'll continue to follow. I, the cosigning physician, performed a history & physical examination of the patient. Lungs sounds are clear, diminished. Maintaining good O2 saturations in the 90s on 2 L/m per nasal cannula. I discussed the assessment and plan of care with my nurse practitioner, Trinity Kay. I attest to the above note as dictated by her.
[2018-12-29 16:49] LABS: Glucose,Whole Blood 230 mg/dL (75-99)
[2018-12-29] MEDS: BUDESONIDE 1 MG/2 ML NEBU INHALATION PRN (19:38)
[2018-12-29 20:37] LABS: Glucose,Whole Blood 177 mg/dL (75-99)
[2018-12-29] MEDS: LATANOPROST 0.005% OPHTH DROPS 2.5 ML BTL BOTH EYES SCH (21:42)
[2018-12-29] MEDS: MELATONIN 5 MG TABLET PO SCH (21:45)
[2018-12-29] MEDS: ALPRAZolam 0.25 MG TAB PO PRN (21:46)
[2018-12-30] MEDS: MORPHINE SULFATE 4 MG/ML SYRINGE IV PRN ×6 (01:33→21:10)
[2018-12-30] MEDS: ONDANSETRON 4 MG/2 ML VIAL IVP PRN ×2 (05:30→13:15)
[2018-12-30] MEDS: IPRATROPIUM-ALBUTEROL 3 ML NEB INHALATION SCH ×4 (07:17→21:03)
[2018-12-30 07:41] LABS: Glucose,Whole Blood 151 mg/dL (75-99)
[2018-12-30 09:00] LABS: ALT 68 U/L (9-52); AST 36 U/L (14-36); Albumin 2.5 g/dL (3.5-5.0); Alkaline Phosphatase 67 U/L (38-126); Anion Gap 2 mmol/L; Blood Urea Nitrogen 16 mg/dL (7-17); Calcium 8.4 mg/dL (8.4-10.2); Carbon Dioxide 33 mmol/L (22-30); Chloride 105 mmol/L (98-107); Glucose 133 mg/dL (74-99); Potassium 4.9 mmol/L (3.5-5.1); Sodium 140 mmol/L (137-145); Total Bilirubin 0.3 mg/dL (0.2-1.3); Total Protein 4.3 g/dL (6.3-8.2)
[2018-12-30] MEDS: busPIRone HCl 10 MG TAB PO SCH ×3 (09:23→21:04)
[2018-12-30] MEDS: METHOCARBAMOL 750 MG TAB PO SCH ×3 (09:24→21:05)
[2018-12-30] MEDS: guaiFENesin 600 MG TABLET.ER PO SCH ×2 (09:24→20:35)
[2018-12-30] MEDS: DULoxetine HCL 30 MG CAPSULE.DR PO SCH (09:24)
[2018-12-30] MEDS: SUCRALFATE 1 GM TAB PO SCH ×3 (09:24→17:11)
[2018-12-30] MEDS: MERCAPTOPURINE 50 MG TAB PO SCH ×2 (09:24→20:33)
[2018-12-30] MEDS: MAGNESIUM OXIDE 400 MG TAB PO SCH (09:24)
[2018-12-30] MEDS: GABAPENTIN 300 MG CAP PO SCH ×3 (09:24→20:34)
[2018-12-30] MEDS: METOPROLOL TARTRATE 50 MG TAB PO SCH ×3 (09:24→21:04)
[2018-12-30] MEDS: PANTOPRAZOLE 40 MG/10 ML VIAL IVP SCH ×2 (09:24→20:34)
[2018-12-30] MEDS: SODIUM CHLORIDE 0.9% 1,000 ML IV SCH (09:29)
[2018-12-30] MEDS: INSULIN ASPART (NovoLOG) 100 UNIT/ML VIAL SQ SCH ×4 (09:29→21:08)
[2018-12-30] MEDS: MULTIVITAMINS, THERA 1 EACH TAB PO SCH (11:27)
[2018-12-30] MEDS: methylPREDNISolone SOD SUCCI 125 MG/2 ML VIAL IV SCH (11:27)
[2018-12-30] MEDS: MAGNESIUM SULFATE-D5W PMX 1 GM in DEXTROSE/WATER 1 100ML.BAG IVPB SCH ×2 (11:27→13:19)
--- NOTE | 2018-12-30 11:31 | P.PN ---
Subjective Progress Note Date: 12/30/18 58-year-old female one of Dr. bernard's patient with past medical history of advanced lung disease post bilateral spontaneous pneumothorax of both side will be going for wrap partial lobe resection and [facility] for large bulla in the right side with scheduled for January 13. Patient left the hospital on November 29 when was transferred to [facility] with the recurrent spontaneous pneumothorax. Patient is known to have history of Crohn disease post subtotal colectomy with no flareup lately has been Humira which has been managed by Dr. Ram regular basis. Patient presented to demurs department today complaining of 3-5 days of worsening abdominal pain with nausea and vomiting severe dehydration not been able to keep any food or fluid down. Patient had low-grade temperature was seen in demurs department CT of the abdomen chest x-ray and her lab value didn' t show much abnormality at this time. Patient continued to have significant diarrhea to her ostomy along with nausea vomiting that she had frequent recurrent episode of ulcerative colitis flareup similar to admit past. Patient was hospitalized started hydration we'll consult gastrology and consult pulmonary as well. Patient was started on large dose of steroid with Solu- Medrol 60 mg every 8 hours and switch to 12 hours only by gastroenterology try to control her colitis. 3: Patient is currently on Solu-Medrol IV 60 every 12 hours. She states that she has emptied her bag that was full 7 times in the past 24 hours which included 3 times during the night which she usually does not have to empty during the nighttime. It still liquid. She has significant amount air secondary to chewing gum. She has not noticed any blood. Her breathing is stable at this point. She has been afebrile, heart rate running in the 70s to 107, blood pressure 123/76, pulse ox 98% on 3 L nasal cannula. CO2 is 31, creatinine 0.61. Blood sugars running between 1:30 to 173. AST 59 and ALT 81. Influenza testing was negative. Patient has been seen by GI. Diet to be advanced. Continue Humira. CRP and sed rate were ordered an additional stool studies. Stool for C. difficile toxin was negative. Stool lactoferrin negative. Stool cultures in progress. Patient is followed by Dr. Mistry with overall pulmonary status stable. Patient states that she is trying to stop taking all p.m. because her insurance will no longer cover it and the cost is $ 1300 per month. 12/30: Patient states that she slept okay last night. Her abdomen remained sore. Diarrhea slowed and showing only emptied her back 2 times last night and once this morning. She is on Carafate. She states she became very winded when she got up to the shower and had asked for help. She could also feel her heart rate had increased. She has been afebrile, heart rate running in 80s and 90s, blood pressure 109/71, pulse ox 98% on 3 L. Blood sugars are running between 133 and 177, CO2 33, ALT 68. Review of Systems CONSTITUTIONAL: Well-developed no acute respiratory distress. EYES: No icterus sclerae, no conjunctivitis. EARS, NOSE, MOUTH, THROAT, and FACE: No sore throat, lymphadenopathy, carotid bruits or deformity. RESPIRATORY: Positive shortness of breath cough wheezes, reports increased shortness of breath with activity. CARDIOVASCULAR: Positive PND orthopnea palpitation no angina. GASTROINTESTINAL: Positive abdominal pain nausea vomiting reports diarrhea with history of ulcerative colitis GENITOURINARY: Negative for Hematuria or UTI, no kidney stones. INTEGUMENT/BREAST: Negative for any muscular injury with mild osteoarthritis.. HEMATOLOGIC/LYMPHATIC: Negative for bleed or purpura. MUSCULOSKELTAL: Negative for Myalgia or arthralgia. NEURLOGICAL: No LOC, Sz or syncope, blurred vision dizziness or abnormality.. BEHAVIORAL/PSYCH: Negative. ENDOCRINE: Negative. Objective - Vital Signs Vital signs: Vital Signs Temp 98.0 F 12/30/18 06:22 Pulse 94 12/30/18 06:22 Resp 24 12/30/18 06:22 BP 109/71 12/30/18 06:22 Pulse Ox 98 12/30/18 06:22 Intake & Output 12/29/18 12/30/18 12/30/18 18:59 06:59 18:59 Intake Total 474 Output Total 900 200 Balance -426 -200 Intake: Oral 474 Output: Urine 400 Stool 500 Urine/Stool Mix 200 Other: Voiding Method Toilet Toilet # Voids 3 2 # Bowel Movements 1 2 - Exam General Appearance: Alert, cooperative, no distress while at rest in bed, appears stated age. Neck HEENT: Supple, no lymphadenopathy, no thyroid enlargement, no carotid bruits. Lungs: Decreased breath sound bilaterally specially the right side with fine rhonchi positive mild inspiratory expiratory wheezes with mild rhonchi worse in the right than the left side. Chest Wall: Decreased expansion with respirations specially in the right side with slight tenderness and discomfort. Heart: Regular rhythm and rate S1-S2 positive mild tachycardia positive S3. Back: Symmetric, no curvature, ROM normal, no CVA tenderness. Abdomen: Soft positive bowel sounds slight tenderness in the mid abdominal region, ostomy in the right side looks fine with no abnormality and the stoma no sign of ventral hernia no rebound or rigidity no organomegaly. liquid stool in ostomy bag Extremities: Extremities normal, atraumatic, no cyanosis or edema. Pulses: 2+ and symmetric. Skin: Skin color, texture, tugor normal, no rashes or lesions. Neurologic: Alert oriented x3 cranial nerves II through XII intact, no motor deficit, no abnormal balance or gait. - Labs CBC & Chem 7: 12/28/18 00:15 12/30/18 08:13 Labs: Abnormal Lab Results - Last 24 Hours (Table) 12/29/18 12/29/18 12/29/18 Range/Units 11:54 16:46 20:36 Carbon Dioxide (22-30) mmol/L Glucose (74-99) mg/dL POC Glucose (mg/dL) 161 H 230 H 177 H (75-99) mg/dL ALT (9-52) U/L Total Protein (6.3-8.2) g/dL Albumin (3.5-5.0) g/dL 12/30/18 12/30/18 Range/Units 07:37 08:13 Carbon Dioxide 33 H (22-30) mmol/L Glucose 133 H (74-99) mg/dL POC Glucose (mg/dL) 151 H (75-99) mg/dL ALT 68 H (9-52) U/L Total Protein 4.3 L (6.3-8.2) g/dL Albumin 2.5 L (3.5-5.0) g/dL Assessment and Plan Plan: 1 acute abdominal pain with worsening nausea vomiting: Most likely acute episode of colitis flareup with consult gastroenterology continue steroid for now and advance medication. 2 acute flareup of ulcerative colitis, slowly improving: Patient has been on Humira we'll add steroid for now continue hydration and pain management. 3 advance lung disease with multiple rupture bulla and spontaneous pneumothorax. Patient has an appointment to do partial lobectomy at [facility] in January 13. 4 advance COPD: Continue patient on O2 continue Breo, DuoNeb and Pulmicort. 5 chronic depression: Has been on Cymbalta 30 mg a day and BuSpar 10 mg 3 times a day. 6 hypertension: Remain on Lopressor 50 mg 3 times a day. 7 arrhythmia mostly tachycardia has been on Lopressor. 8 Chronic pain management: Patient has been on hydrocodone associate with gabapentin. 9 GI bleed: Hemoccult will be done patient is seen GI this drop in hemoglobin below 8 further testing including colonoscopy and blood transfusion be done. 10 GI prophylaxis/GERD: Patient remain on Pepcid. 11 DVT prophylaxis: Early mobilization and knee-high EMELIA hose. CODE STATUS: Full code. Discharge plan: Home Impression and plan of care have been directed as dictated by the signing physician. Gaby Rothman nurse practitioner acting as scribe for signing physician.
[2018-12-30 12:34] LABS: Glucose,Whole Blood 115 mg/dL (75-99)
--- NOTE | 2018-12-30 13:48 | PN ---
PROGRESS NOTE DATE OF SERVICE: December 30, 2018 Patient is a 58-year-old pleasant white female with history of advanced end-stage lung disease and history of Crohn's disease, status post total proctocolectomy with ileostomy 30 years ago, presents to the hospital with nausea, vomiting, diarrhea of 2 or 3 days duration. She was also complaining of severe lower abdominal pain. She was started on IV Solu-Medrol 60 mg q.12 hours for exacerbation of possible Crohn's colitis and she is feeling much better today. She has been maintained on Humira 40 mg every 2 weeks and 6-mercaptopurine 100 mg daily for several years. She is on a regular diet tolerating well. Still has some abdominal discomfort but no nausea, vomiting. PHYSICAL EXAMINATION: Appears comfortable. No apparent distress. VITAL SIGNS: Stable. Blood pressure is 109/75, pulse rate 94, temperature 98. HEENT: Examination unremarkable. Conjunctivae pink. Sclerae anicteric. Oral cavity no lesions. Neck: No jugular venous distention or lymph node enlargement. Chest was clear to auscultation. HEART: Regular rate and rhythm. ABDOMEN: Soft. Mild tenderness in the lower abdominal area. Ileostomy in place. EXTREMITIES: No pedal edema. Skin: No rashes. NEUROLOGIC: Alert and oriented x3. No focal deficits. LABS: CMP is within normal limits. IMPRESSION: 1. Longstanding history of Crohn's ileitis in this patient who is status post a total proctocolectomy with ileostomy 30 years ago, now presents with nausea, vomiting and diarrhea with lower abdominal pain, possible exacerbation of Crohn's ileitis on Solu-Medrol 60 mg q.12 hours doing much better. 2. Severe gastroesophageal reflux disease with heartburn. She is on Protonix and was started on Carafate yesterday. 3. End-stage lung disease with multiple recent hospitalizations with acute respiratory failure. She is scheduled for a bleb resection at [facility] on January 15. RECOMMENDATION: 1. Decrease Solu-Medrol to 20 mg q.8 hours. 2. Continue with Carafate 1 gram 4 times daily. 3. Continue with Humira and 6-mercaptopurine at the previous dose. 4. We will follow the patient with you closely during the hospital stay. Thank you for this consultation. MMODL / IJN: [id number] /
--- NOTE | 2018-12-30 14:56 | P.PN ---
Subjective Progress Note Date: 12/30/18 12/30/2018, the patient is stable and has no pulmonary issues. The diarrhea has subsided. C. diff evaluation was negative. The patient is still on IV Solu -Medrol. She has a component of exacerbation of Crohn's disease. The patient is demented on Humira on outpatient basis. She also is taking 6-mercaptopurine 100 mg by mouth daily. Pulse ox is 90% on 2 L of oxygen nasal cannula. No cough no sputum production chest vessel wheezing. No fever or chills. Electrolytes are all within normal limits. No active pulmonary issues for now. Objective - Vital Signs Vital signs: Vital Signs Temp 98.0 F 12/30/18 06:22 Pulse 80 12/30/18 11:47 Resp 24 12/30/18 06:22 BP 109/71 12/30/18 06:22 Pulse Ox 98 12/30/18 06:22 Intake & Output 12/29/18 12/30/18 12/30/18 18:59 06:59 18:59 Intake Total 474 200 Output Total 900 200 Balance -426 -200 200 Intake: Oral 474 200 Output: Urine 400 Stool 500 Urine/Stool Mix 200 Other: Voiding Method Toilet Toilet Bedside Commode # Voids 3 2 # Bowel Movements 1 2 - Exam General Appearance: Alert, cooperative, no distress, appears stated age. On 2 L nasal cannula. Neck HEENT: Supple, no lymphadenopathy, no thyroid enlargement, no carotid bruits. Lungs: Decreased breath sound bilaterally specially the right side with fine rhonchi positive mild inspiratory expiratory wheezes with mild rhonchi worse in the right than the left side. Chest Wall: Decreased expansion with respirations specially in the right side with slight tenderness and discomfort. Heart: Regular rhythm and rate S1-S2 positive mild tachycardia positive S3. Back: Symmetric, no curvature, ROM normal, no CVA tenderness. Abdomen: Soft positive bowel sounds slight tenderness in the mid abdominal region area ostomy in the right side looks fine with no abnormality and the stoma no sign of ventral hernia no rebound or rigidity no organomegaly. Extremities: Extremities normal, atraumatic, no cyanosis or edema. Pulses: 2+ and symmetric. Skin: Skin color, texture, tugor normal, no rashes or lesions. Neurologic: Alert oriented x3 cranial nerves II through XII intact, no motor deficit, no abnormal balance or gait. - Labs CBC & Chem 7: 12/28/18 00:15 12/30/18 08:13 Labs: Abnormal Lab Results - Last 24 Hours (Table) 12/29/18 12/29/18 12/30/18 Range/Units 16:46 20:36 07:37 Carbon Dioxide (22-30) mmol/L Glucose (74-99) mg/dL POC Glucose (mg/dL) 230 H 177 H 151 H (75-99) mg/dL ALT (9-52) U/L Total Protein (6.3-8.2) g/dL Albumin (3.5-5.0) g/dL 12/30/18 12/30/18 Range/Units 08:13 12:17 Carbon Dioxide 33 H (22-30) mmol/L Glucose 133 H (74-99) mg/dL POC Glucose (mg/dL) 115 H (75-99) mg/dL ALT 68 H (9-52) U/L Total Protein 4.3 L (6.3-8.2) g/dL Albumin 2.5 L (3.5-5.0) g/dL Microbiology - Last 24 Hours (Table) 12/28/18 03:00 Stool Culture - Preliminary Stool Assessment and Plan Plan: Assessment 1 diarrhea with increased ileostomy output, consider exacerbation of underlying inflammatory bowel disease/Crohn's disease, symptoms have improved. 2 advanced, end-stage lung disease with bullous emphysema and previous history of recurrent pneumonias and spontaneous pneumothoraces. Overall pulmonary status is currently inactive and stable. The patient is looking for a bullectomy to be done at [facility] on 01/15/2019. The patient has a baseline FEV1 of 36% of predicted 3 chronic hypoxic respiratory failure 4 previous right-sided pneumothorax 5 chronic left upper lobe inflammatory opacity 6 hypertension 7 hyperlipidemia 8 inflammatory bowel disease/Crohn's disease with a previous bowel resection and diverting ileostomy 9 hypothyroidism 10 chronic anemia 11 fibromyalgia 12 chronic anxiety/depression Plan Clinically improved. Prednisone burst taper and the regimen of taper and the regimen of the taper will be left up to gastroenterology.. Pulmonary we'll sign off the case. Pulmonary status is stable for now. The patient will see back in the office next week for a full PFT which she'll be a preop PFT prior to her bullectomy on the right.
[2018-12-30 17:16] LABS: Glucose,Whole Blood 175 mg/dL (75-99)
[2018-12-30] MEDS: methylPREDNISolone SOD SUCCI 40 MG/ML 1 ML VIAL IV SCH (20:33)
[2018-12-30] MEDS: LATANOPROST 0.005% OPHTH DROPS 2.5 ML BTL BOTH EYES SCH (20:34)
[2018-12-30] MEDS: MELATONIN 5 MG TABLET PO SCH (20:34)
[2018-12-30 20:47] LABS: Glucose,Whole Blood 121 mg/dL (75-99)
[2018-12-30] MEDS: ALPRAZolam 0.25 MG TAB PO PRN (22:39)
[2018-12-31] MEDS: ONDANSETRON 4 MG/2 ML VIAL IVP PRN ×2 (00:31→08:46)
[2018-12-31] MEDS: MORPHINE SULFATE 4 MG/ML SYRINGE IV PRN ×3 (01:01→08:46)
[2018-12-31 05:34] VITALS: BP 124/76; RESP 20; TEMP 98
[2018-12-31] MEDS: SODIUM CHLORIDE 0.9% 1,000 ML IV SCH (05:47)
[2018-12-31 07:06] LABS: Glucose,Whole Blood 181 mg/dL (75-99)
[2018-12-31] MEDS: IPRATROPIUM-ALBUTEROL 3 ML NEB INHALATION SCH ×2 (07:31→11:26)
[2018-12-31] MEDS: BUDESONIDE 1 MG/2 ML NEBU INHALATION PRN (07:31)
[2018-12-31] MEDS: GABAPENTIN 300 MG CAP PO SCH (08:46)
[2018-12-31] MEDS: METOPROLOL TARTRATE 50 MG TAB PO SCH (08:51)
[2018-12-31] MEDS: guaiFENesin 600 MG TABLET.ER PO SCH (08:51)
[2018-12-31] MEDS: busPIRone HCl 10 MG TAB PO SCH (08:51)
[2018-12-31] MEDS: MAGNESIUM OXIDE 400 MG TAB PO SCH (08:51)
[2018-12-31] MEDS: methylPREDNISolone SOD SUCCI 40 MG/ML 1 ML VIAL IV SCH (08:51)
[2018-12-31] MEDS: DULoxetine HCL 30 MG CAPSULE.DR PO SCH (08:51)
[2018-12-31] MEDS: SUCRALFATE 1 GM TAB PO SCH ×2 (08:51→11:48)
[2018-12-31] MEDS: INSULIN ASPART (NovoLOG) 100 UNIT/ML VIAL SQ SCH (08:52)
[2018-12-31] MEDS: PANTOPRAZOLE 40 MG/10 ML VIAL IVP SCH (08:52)
[2018-12-31] MEDS: MERCAPTOPURINE 50 MG TAB PO SCH (08:55)
[2018-12-31] MEDS: METHOCARBAMOL 750 MG TAB PO SCH (08:55)
[2018-12-31 09:02] VITALS: PULSE 78
[2018-12-31 10:18] LABS: Anisocytosis Moderate; HCT 25.3 % (34.0-46.0); Hypochromasia Marked; MCHC 30.6 g/dL (31.0-37.0); MCV 101.2 fL (80.0-100.0); Macrocytosis Moderate; Mean Platelet Volume 7.7; Platelet Count 254 k/uL (150-450); Poikilocytosis Slight; RBC 2.51 m/uL (3.80-5.40); WBC 2.7 k/uL (3.8-10.6)
[2018-12-31 10:29] LABS: HGB 7.8 gm/dL (11.4-16.0)
[2018-12-31 10:31] LABS: ALT 121 U/L (9-52); AST 70 U/L (14-36); Albumin 2.5 g/dL (3.5-5.0); Alkaline Phosphatase 66 U/L (38-126); Anion Gap 1 mmol/L; Blood Urea Nitrogen 13 mg/dL (7-17); Calcium 8.5 mg/dL (8.4-10.2); Carbon Dioxide 33 mmol/L (22-30); Chloride 103 mmol/L (98-107); Glucose 109 mg/dL (74-99); Potassium 4.2 mmol/L (3.5-5.1); Sodium 137 mmol/L (137-145); Total Bilirubin 0.4 mg/dL (0.2-1.3); Total Protein 4.4 g/dL (6.3-8.2)
[2018-12-31] MEDS: MULTIVITAMINS, THERA 1 EACH TAB PO SCH (11:48)
--- NOTE | 2018-12-31 12:48 | P.DS ---
Providers Date of admission: 12/28/18 03:58 Expected date of discharge: 12/31/18 Attending physician: Tacho Siddiqui Consults: 12/28/18 03:58 Consult Physician Routine Consulting Provider: Chase Almanzar Consult Reason/Comments: Vomiting, diarrhea Do you want consulting provider notified?: Yes 12/28/18 03:59 Consult Physician Routine Consulting Provider: Jazmine Mistry Consult Reason/Comments: Shortness of breath Do you want consulting provider notified?: Yes Primary care physician: [facility] Course: 58-year-old female one of Dr. bernard's patient with past medical history of advanced lung disease post bilateral spontaneous pneumothorax of both side will be going for wrap partial lobe resection and [facility] for large bulla in the right side with scheduled for January 13. Patient left the hospital on November 29 when was transferred to [facility] with the recurrent spontaneous pneumothorax. Patient is known to have history of Crohn disease post subtotal colectomy with no flareup lately has been Humira which has been managed by Dr. Ram regular basis. [facility] of 3-5 days of worsening abdominal pain with nausea and vomiting severe dehydration not been able to keep any food or fluid down. Patient had low-grade temperature was seen in demurs department CT of the abdomen chest x-ray and her lab value didn' t show much abnormality at this time. Patient continued to have significant diarrhea to her ostomy along with nausea vomiting that she had frequent recurrent episode of ulcerative colitis flareup similar to admit past. Patient was hospitalized started hydration we'll consult gastrology and consult pulmonary as well. Patient was started on large dose of steroid with Solu- Medrol 60 mg every 8 hours and switch to 12 hours only by gastroenterology try to control her colitis. 12/29: Patient is currently on Solu-Medrol IV 60 every 12 hours. She states that she has emptied her bag that was full 7 times in the past 24 hours which included 3 times during the night which she usually does not have to empty during the nighttime. It still liquid. She has significant amount air secondary to chewing gum. She has not noticed any blood. Her breathing is stable at this point. She has been afebrile, heart rate running in the 70s to 107, blood pressure 123/76, pulse ox 98% on 3 L nasal cannula. CO2 is 31, creatinine 0.61. Blood sugars running between 1:30 to 173. AST 59 and ALT 81. Influenza testing was negative. Patient has been seen by GI. Diet to be advanced. Continue Humira. CRP and sed rate were ordered an additional stool studies. Stool for C. difficile toxin was negative. Stool lactoferrin negative. Stool cultures in progress. Patient is followed by Dr. Mistry with overall pulmonary status stable. Patient states that she is trying to stop taking all p.m. because her insurance will no longer cover it and the cost is $ 1300 per month. 12/30: Patient states that she slept okay last night. Her abdomen remained sore. Diarrhea slowed and showing only emptied her back 2 times last night and once this morning. She is on Carafate. She states she became very winded when she got up to the shower and had asked for help. She could also feel her heart rate had increased. She has been afebrile, heart rate running in 80s and 90s, blood pressure 109/71, pulse ox 98% on 3 L. Blood sugars are running between 133 and 177, CO2 33, ALT 68. 12/31: Patient remains afebrile, heart rate in the 90s to 104, blood pressure 124/ 76, pulse ox 97% on 3 L nasal cannula. Patient has been stable pulmonary williams[facility] and Dr. Mistry has signed off the case. Dr. Ram decreased Solu-Medrol to 20 mg every 8 hours with recommendations to continue Carafate and Humira and mercaptopurine at the previous dose. Patient states ostomy output has continued to improve. She continues to have liquid stool which is normal. Less frequent. Patient will be discharged home today in stable condition. Discharge diagnoses: 1 acute abdominal pain with worsening nausea vomiting secondary to colitis flareup 2 acute flareup of ulcerative colitis 3 advance lung disease with multiple rupture bulla and spontaneous pneumothorax. 4 advance COPD with chronic hypoxic respiratory failure 5 recurrent depression 6 hypertension 7 arrhythmia mostly tachycardia 8 Chronic pain management 9 GI bleed history Discharge plan: Home Impression and plan of care have been directed as dictated by the signing physician. Gaby Rothman nurse practitioner acting as scribe for signing physician. Patient Condition at Discharge: Good Plan - Discharge Summary Discharge Rx Participant: No New Discharge Prescriptions: New Sucralfate [Carafate] 1 gm PO TID #900 ml predniSONE 0 mg PO DIRECTED #30 tab Continue Latanoprost Ophth [Xalatan 0.005%] 1 drop BOTH EYES HS Dicyclomine [Bentyl] 10 mg PO TID PRN PRN Reason: Pain Cyanocobalamin [Vitamin B-12 Injection] 1,000 mcg SQ Q30D Budesonide 1 mg INHALATION RT-BID PRN PRN Reason: Shortness Of Breath Gabapentin [Neurontin] 300 mg PO TID Opium Tincture 10mg/1ml 20 mg PO BID PRN PRN Reason: BOWEL ISSUES HYDROcodone/APAP 10-325MG [[place] 10-325] 1 tab PO Q4H PRN PRN Reason: Pain Metoprolol Tartrate [Lopressor] 50 mg PO TID #90 tab Albuterol Nebulized [Ventolin Nebulized] 2.5 mg INHALATION RT-QID PRN #120 nebu PRN Reason: Shortness Of Breath Magnesium Oxide [Mag-Ox] 400 mg PO DAILY #30 tablet Multivitamins, Thera [Multivitamin (formulary)] 1 tab PO DAILY Guaifen/Phenyleph/Acetaminophn [Mucinex Sinus-Max Severe Liq] 10 ml PO Q6H PRN PRN Reason: Cough Aclidinium [place] [Tudorza Pressair] 1 puff INHALATION RT-BID Mercaptopurine [Purinethol] 50 mg PO BID busPIRone HCl [Buspar] 10 mg PO TID Fluticasone/Vilanterol [Breo Ellipta 200-25 Mcg INH] 1 puff INHALATION RT- DAILY Cholecalciferol (Vitamin D3) [Vitamin D3] 2,000 unit PO DAILY Acetaminophen Tab [Tylenol] 650 mg PO Q4HR PRN tab PRN Reason: Fever And/Or Mild Pain Famotidine [Pepcid] 20 mg PO BID tab ALPRAZolam [Xanax] 0.25 mg PO DAILY PRN PRN Reason: Anxiety Methocarbamol [Robaxin] 750 mg PO TID Adalimumab [Humira(Cf) Pen] 40 mg SQ Q7D Melatonin 5 mg PO HS DULoxetine HCL [Cymbalta] 30 mg PO DAILY Discharge Medication List Latanoprost Ophth [Xalatan 0.005%] 1 drop BOTH EYES HS 05/21/17 [History] Cyanocobalamin [Vitamin B-12 Injection] 1,000 mcg SQ Q30D 07/24/18 [History] Dicyclomine [Bentyl] 10 mg PO TID PRN 07/24/18 [History] Budesonide 1 mg INHALATION RT-BID PRN 09/27/18 [History] Gabapentin [Neurontin] 300 mg PO TID 09/27/18 [History] HYDROcodone/APAP 10-325MG [[place] 10-325] 1 tab PO Q4H PRN 09/27/18 [History] Opium Tincture 10mg/1ml 20 mg PO BID PRN 09/27/18 [History] Albuterol Nebulized [Ventolin Nebulized] 2.5 mg INHALATION RT-QID PRN #120 nebu 11/10/18 [Rx] Metoprolol Tartrate [Lopressor] 50 mg PO TID #90 tab 11/10/18 [Rx] Magnesium Oxide [Mag-Ox] 400 mg PO DAILY #30 tablet 11/11/18 [Rx] Aclidinium [place] [Tudorza Pressair] 1 puff INHALATION RT-BID 11/29/18 [History ] Cholecalciferol (Vitamin D3) [Vitamin D3] 2,000 unit PO DAILY 11/29/18 [History] Fluticasone/Vilanterol [Breo Ellipta 200-25 Mcg INH] 1 puff INHALATION RT-DAILY 11/29/18 [History] Guaifen/Phenyleph/Acetaminophn [Mucinex Sinus-Max Severe Liq] 10 ml PO Q6H PRN 11/29/18 [History] Mercaptopurine [Purinethol] 50 mg PO BID 11/29/18 [History] Multivitamins, Thera [Multivitamin (formulary)] 1 tab PO DAILY 11/29/18 [History ] busPIRone HCl [Buspar] 10 mg PO TID 11/29/18 [History] Acetaminophen Tab [Tylenol] 650 mg PO Q4HR PRN tab 11/30/18 [Rx] Famotidine [Pepcid] 20 mg PO BID tab 11/30/18 [Rx] ALPRAZolam [Xanax] 0.25 mg PO DAILY PRN 12/28/18 [History] Adalimumab [Humira(Cf) Pen] 40 mg SQ Q7D 12/28/18 [History] DULoxetine HCL [Cymbalta] 30 mg PO DAILY 12/28/18 [History] Melatonin 5 mg PO HS 12/28/18 [History] Methocarbamol [Robaxin] 750 mg PO TID 12/28/18 [History] Sucralfate [Carafate] 1 gm PO TID #900 ml 12/31/18 [Rx] predniSONE 0 mg PO DIRECTED #30 tab 12/31/18 [Rx] Follow up Appointment(s)/Referral(s): [facility], [NON-STAFF] - Heber James MD [Primary Care Provider] - 1-2 days Activity/Diet/Wound Care/Special Instructions: Diet as tolerated. Follow with Dr. Verma as recommended. [place] [facility] at Dr. 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
== END 2018-12-31 13:23 | disposition home health service (06) | DRG 386 ==
LOC: EC 23:53 → 4MS4W 12-28 03:58
PROVIDERS: ADMIT Internal Medicine Geriatric Medicine; ATTEND Internal Medicine Geriatric Medicine
DX: K51.90 Ulcerative colitis, unspecified, without complications (principal); E87.3 Alkalosis; F33.9 Major depressive disorder, recurrent, unspecified; J96.11 Chronic respiratory failure with hypoxia; J43.9 Emphysema, unspecified; E83.42 Hypomagnesemia; F03.90 Unspecified dementia, unspecified severity, without behavioral disturbance, psychotic disturbance, mood disturbance, and anxiety; E87.6 Hypokalemia; I10 Essential (primary) hypertension; E78.5 Hyperlipidemia, unspecified; F41.9 Anxiety disorder, unspecified; G89.4 Chronic pain syndrome; M79.7 Fibromyalgia; K21.9 Gastro-esophageal reflux disease without esophagitis; M81.0 Age-related osteoporosis without current pathological fracture; K44.9 Diaphragmatic hernia without obstruction or gangrene; M19.90 Unspecified osteoarthritis, unspecified site; E86.0 Dehydration; Z93.2 Ileostomy status; Z99.81 Dependence on supplemental oxygen; Z79.4 Long term (current) use of insulin; Z79.51 Long term (current) use of inhaled steroids; Z79.899 Other long term (current) drug therapy; Z86.74 Personal history of sudden cardiac arrest; Z87.01 Personal history of pneumonia (recurrent); Z90.49 Acquired absence of other specified parts of digestive tract; Z90.710 Acquired absence of both cervix and uterus; Z90.721 Acquired absence of ovaries, unilateral; Z87.891 Personal history of nicotine dependence; Z88.2 Allergy status to sulfonamides; Z88.8 Allergy status to other drugs, medicaments and biological substances; Z91.041 Radiographic dye allergy status; Z82.5 Family history of asthma and other chronic lower respiratory diseases; Z82.49 Family history of ischemic heart disease and other diseases of the circulatory system; Z83.3 Family history of diabetes mellitus; Z82.3 Family history of stroke; Z80.8 Family history of malignant neoplasm of other organs or systems; Z82.61 Family history of arthritis; E03.9 Hypothyroidism, unspecified; D64.9 Anemia, unspecified; H40.9 Unspecified glaucoma; G62.9 Polyneuropathy, unspecified; J30.2 Other seasonal allergic rhinitis
CPT/HCPCS: 36415; 71046; 74177; 80048; 80053; 81001; 82150; 83630; 83690; 83735; 84484; 85025; 85027; 85610; 85730; 87045; 87046; 87324; 87502; 93005; 94640; 94760; 96361; 96365; 96366; 96368; 96375; 96376; 99285

== ENCOUNTER 2019-02-01 19:52 | Inpatient (IN) | payer BC ==
[2019-02-01] MEDS ORDERED: methylPREDNISolone SOD SUCCI 125 MG/2 ML VIAL IV STA (20:13)
[2019-02-01] MEDS ORDERED: ALBUTEROL NEBULIZED 2.5 MG/3 ML INHALATION STA (20:13)
[2019-02-01] MEDS ORDERED: LORazepam 2 MG/ML INJ IV STA (20:13)
[2019-02-01] MEDS ORDERED: SODIUM CHLORIDE 0.9% 1,000 ML IV STA ×2 (20:13)
[2019-02-01] MEDS ORDERED: IPRATROPIUM 0.5 MG/2.5 ML NEBU INHALATION STA (20:13)
[2019-02-01] MEDS ORDERED: HYDROmorphone 1 MG/ML 1 ML SYRINGE IVP STA (20:14)
--- NOTE | 2019-02-01 20:17 | ED ---
SOB HPI - General Chief Complaint: Shortness of Breath Stated Complaint: SELENA Time Seen by Provider: 02/01/19 20:06 Source: EMS, RN notes reviewed, old records reviewed Mode of arrival: EMS Limitations: physical limitation - History of Present Illness Initial Comments: This is a 58 female to the ED with wheezing and SOB, severe, worsening times one week. COmplicated recent medical and outpatient course. History of PTX, blebs and se[place] COPD. Patient on Home O2. Denies fevers, admite do Chest pain. MD Complaint: shortness of breath, cough, "asthma attack", anxiety -: days(s) Radiation: back Severity: severe Severity scale (1-10): 10 Quality: aching, sharp Consistency: constant Improves With: oxygen, rest, bronchodilators Worsens With: exertion Known History Of: COPD, recurrent pneumonia Context: recent URI Associated Symptoms: chest pain, pain with inspiration, cough, sputum production Treatments Prior to Arrival: oxygen, bronchodilator, NIPPV - Related Data Home Medications Medication Instructions Recorded Confirmed Latanoprost Ophth [Xalatan 0.005%] 1 drop BOTH EYES HS 05/21/17 02/01/19 Cyanocobalamin [Vitamin B-12 1,000 mcg SQ Q30D 07/24/18 02/01/19 Injection] Dicyclomine [Bentyl] 10 mg PO TID PRN 07/24/18 02/01/19 Budesonide 1 mg INHALATION RT-BID PRN 09/27/18 02/01/19 Gabapentin [Neurontin] 300 mg PO TID 09/27/18 02/01/19 HYDROcodone/APAP 10-325MG [[place] 1 tab PO Q4H PRN 09/27/18 02/01/19 10-325] Opium Tincture 10mg/1ml 20 mg PO BID PRN 09/27/18 02/01/19 Aclidinium [place] [Tudorza 1 puff INHALATION RT-BID 11/29/18 02/01/19 Pressair] Cholecalciferol (Vitamin D3) 2,000 unit PO DAILY 11/29/18 02/01/19 [Vitamin D3] Fluticasone/Vilanterol [Breo 1 puff INHALATION RT-DAILY 11/29/18 02/01/19 Ellipta 200-25 Mcg INH] Guaifen/Phenyleph/Acetaminophn 10 ml PO Q6H PRN 11/29/18 02/01/19 [Mucinex Sinus-Max Severe Liq] Mercaptopurine [Purinethol] 50 mg PO BID 11/29/18 02/01/19 Multivitamins, Thera [Multivitamin 1 tab PO DAILY 11/29/18 02/01/19 (formulary)] busPIRone HCl [Buspar] 10 mg PO TID 11/29/18 02/01/19 ALPRAZolam [Xanax] 0.25 mg PO DAILY PRN 12/28/18 02/01/19 Adalimumab [Humira(Cf) Pen] 40 mg SQ Q7D 12/28/18 02/01/19 DULoxetine HCL [Cymbalta] 30 mg PO DAILY 12/28/18 02/01/19 Melatonin 5 mg PO HS 12/28/18 02/01/19 Methocarbamol [Robaxin] 750 mg PO TID 12/28/18 02/01/19 Previous Rx's Medication Instructions Recorded Albuterol Nebulized [Ventolin 2.5 mg INHALATION RT-QID PRN #120 11/10/18 Nebulized] nebu Metoprolol Tartrate [Lopressor] 50 mg PO TID #90 tab 11/10/18 Magnesium Oxide [Mag-Ox] 400 mg PO DAILY #30 tablet 11/11/18 Acetaminophen Tab [Tylenol] 650 mg PO Q4HR PRN tab 11/30/18 Sucralfate [Carafate] 1 gm PO TID #900 ml 12/31/18 Allergies Allergy/AdvReac Type Severity Reaction Status Date / Time Iodinated Contrast- Oral and Allergy Anaphylaxis Verified 02/01/19 20:01 IV Dye pregabalin [From Lyrica] Allergy Unknown Verified 02/01/19 20:01 rofecoxib [From Vioxx] Allergy Unknown Verified 02/01/19 20:01 Sulfa (Sulfonamide Allergy Rash/Hives Verified 02/01/19 20:01 Antibiotics) aspirin AdvReac Internal Verified 02/01/19 20:01 Bleeding timolol [Timolol] AdvReac Nausea & Verified 02/01/19 20:01 Vomiting Review of Systems ROS Statement: Those systems with pertinent positive or pertinent negative responses have been documented in the HPI. ROS Other: All systems not noted in ROS Statement are negative. Past Medical History Past Medical History: COPD, Fibromyalgia, GERD/Reflux, GI Bleed, Osteoarthritis (OA), Pneumonia, Syncope Additional Past Medical History / Comment(s): Crohn's colitis, bowel obstructions, multiple bowel surgeries including total colectomy/ileostomy, severe COPD, chronic respiratory failure, home O2 3L/NC, bullous emphysema, R lung bleb-to have R lung surgery on 01/15/19 at [facility], R pneumothorax x3, L pneumothorax x1 and had bilateral pneumothorax 09/2018-acute respiratory failure/vented/cardiac arrest, tachycardia, hiatal hernia, lower GI bleeds, arthritis in multiple joints, osteoporosis, chronic pain, seasonal allergies, bilateral glaucoma and has had bilateral eye surgery for retinal tears/holes. History of Any Multi-Drug Resistant Organisms: None Reported Past Surgical History: Breast Surgery, Cholecystectomy, Hernia Repair, Hysterectomy, Orthopedic Surgery Additional Past Surgical History / Comment(s): Multiple bowel surgeries including total colectomy/ileostomy, ileostomy moved/repaired, R salpingoophorectomy due to ectopic , total hysterectomy, leep procedure, laparoscopy for endometriosis, L breast lumpectomy-benign, r breast core bx-benign, EGD/colonoscopies, bilateral thoravents, arthroscopic knee surgery on the right due to ACL and Meniscal tear, trach and peg tube-since removed. Past Anesthesia/Blood Transfusion Reactions: No Reported Reaction Past Psychological History: Anxiety, Depression Smoking Status: Former smoker Past Alcohol Use History: None Reported Past Drug Use History: None Reported - Past Family History Mother Family Medical History: Cancer, COPD, Hypertension Additional Family Medical History / Comment(s): Mother at age 83 from COPD and had osteoarthritis and skin cancer. Father Family Medical History: Cancer, CVA/TIA, Dementia, Diabetes Mellitus Additional Family Medical History / Comment(s): Father is 92 yrs old. He has had several TIAs and a CVA Brother(s) Family Medical History: Cancer Additional Family Medical History / Comment(s): Patient had 5 brothers and one of them from melanoma at age 41. Sister(s) History Unknown: Yes Family Medical History: No Reported History Additional Family Medical History / Comment(s): Patient has one sister. Patient has no children General Exam Limitations: physical limitation General appearance: alert, anxious, in distress Head exam: Present: atraumatic, normocephalic, normal inspection Eye exam: Present: normal appearance, PERRL, EOMI. Absent: scleral icterus, conjunctival injection, periorbital swelling ENT exam: Present: normal exam, mucous membranes moist Neck exam: Present: normal inspection. Absent: tenderness, meningismus, l ymphadenopathy Respiratory exam: Present: respiratory distress, wheezes, accessory muscle use, decreased breath sounds, prolonged expiratory. Absent: rales, rhonchi, stridor Cardiovascular Exam: Present: regular rate, normal rhythm, tachycardia, normal heart sounds. Absent: systolic murmur, diastolic murmur, rubs, gallop, clicks GI/Abdominal exam: Present: soft, normal bowel sounds. Absent: distended, tenderness, guarding, rebound, rigid Extremities exam: Present: normal inspection, full ROM, normal capillary refill. Absent: tenderness, pedal edema, joint swelling, calf tenderness Back exam: Present: normal inspection Neurological exam: Present: alert, oriented X3, CN II-XII intact Psychiatric exam: Present: normal affect, normal mood Skin exam: Present: warm, dry, intact, normal color. Absent: rash Course Vital Signs 02/01/19 02/01/19 02/01/19 19:54 20:05 20:26 Temperature 98.3 F Pulse Rate 104 H 110 H 106 H Respiratory 20 19 Rate Blood Pressure 170/108 131/107 O2 Sat by Pulse 90 L 98 Oximetry 02/01/19 02/01/19 02/01/19 20:30 20:40 21:11 Temperature Pulse Rate 95 102 H 100 Respiratory 18 17 Rate Blood Pressure 122/90 116/93 O2 Sat by Pulse 99 100 Oximetry 02/01/19 02/01/19 21:12 21:28 Temperature Pulse Rate 96 105 H Respiratory 22 Rate Blood Pressure 124/71 O2 Sat by Pulse 95 Oximetry - Reevaluation(s) Reevaluation #1: 02/01/19 22:33 medical record is reviewed including prior ED visits, XR, CT Reevaluation #2: 02/01/19 22:33 patient improved significantly, off BiPap, on NC Medical Decision Making - Medical Decision Making 58 female to the ED co sob, COPD exac w distress and hyoxia, found to have Ptx a,d Blebs on R side - Lab Data Result diagrams: 02/01/19 20:04 02/01/19 20:04 Lab Results 02/01/19 02/01/19 02/01/19 Range/Units 20:04 20:04 20:04 WBC 4.1 (3.8-10.6) k/uL RBC 3.36 L (3.80-5.40) m/uL Hgb 11.2 L D (11.4-16.0) gm/dL Hct 34.0 (34.0-46.0) % MCV 101.2 H (80.0-100.0) fL MCH 33.4 (25.0-35.0) pg MCHC 33.0 (31.0-37.0) g/dL RDW 21.2 H (11.5-15.5) % Plt Count 576 H D (150-450) k/uL Neutrophils % 38 % Lymphocytes % 49 % Monocytes % 6 % Eosinophils % 2 % Basophils % 0 % Neutrophils # 1.6 (1.3-7.7) k/uL Lymphocytes # 2.0 (1.0-4.8) k/uL Monocytes # 0.3 (0-1.0) k/uL Eosinophils # 0.1 (0-0.7) k/uL Basophils # 0.0 (0-0.2) k/uL Hypochromasia Slight Poikilocytosis Moderate Anisocytosis Moderate Macrocytosis Moderate PT 10.9 (9.0-12.0) sec INR 1.0 (<1.2) APTT 27.2 (22.0-30.0) sec D-Dimer 0.93 H (<0.60) mg/L FEU Sodium 140 (137-145) mmol/L Potassium 3.6 (3.5-5.1) mmol/L Chloride 90 L (98-107) mmol/L Carbon Dioxide 39 H (22-30) mmol/L Anion Gap 11 mmol/L BUN 11 (7-17) mg/dL Creatinine 0.62 (0.52-1.04) mg/dL Est GFR (CKD-EPI)AfAm >90 (>60 ml/min/1.73 sqM) Est GFR (CKD-EPI)NonAf >90 (>60 ml/min/1.73 sqM) Glucose 167 H (74-99) mg/dL Calcium 9.7 (8.4-10.2) mg/dL Magnesium 1.6 (1.6-2.3) mg/dL Total Bilirubin 0.6 (0.2-1.3) mg/dL AST 48 H (14-36) U/L ALT 68 H (9-52) U/L Alkaline Phosphatase 108 (38-126) U/L Troponin I (0.000-0.034) ng/mL NT-Pro-B Natriuret Pep pg/mL Total Protein 6.0 L (6.3-8.2) g/dL Albumin 3.7 (3.5-5.0) g/dL 02/01/19 02/01/19 Range/Units 20:04 20:04 WBC (3.8-10.6) k/uL RBC (3.80-5.40) m/uL Hgb (11.4-16.0) gm/dL Hct (34.0-46.0) % MCV (80.0-100.0) fL MCH (25.0-35.0) pg MCHC (31.0-37.0) g/dL RDW (11.5-15.5) % Plt Count (150-450) k/uL Neutrophils % % Lymphocytes % % Monocytes % % Eosinophils % % Basophils % % Neutrophils # (1.3-7.7) k/uL Lymphocytes # (1.0-4.8) k/uL Monocytes # (0-1.0) k/uL Eosinophils # (0-0.7) k/uL Basophils # (0-0.2) k/uL Hypochromasia Poikilocytosis Anisocytosis Macrocytosis PT (9.0-12.0) sec INR (<1.2) APTT (22.0-30.0) sec D-Dimer (<0.60) mg/L FEU Sodium (137-145) mmol/L Potassium (3.5-5.1) mmol/L Chloride (98-107) mmol/L Carbon Dioxide (22-30) mmol/L Anion Gap mmol/L BUN (7-17) mg/dL Creatinine (0.52-1.04) mg/dL Est GFR (CKD-EPI)AfAm (>60 ml/min/1.73 sqM) Est GFR (CKD-EPI)NonAf (>60 ml/min/1.73 sqM) Glucose (74-99) mg/dL Calcium (8.4-10.2) mg/dL Magnesium (1.6-2.3) mg/dL Total Bilirubin (0.2-1.3) mg/dL AST (14-36) U/L ALT (9-52) U/L Alkaline Phosphatase (38-126) U/L Troponin I <0.012 (0.000-0.034) ng/mL NT-Pro-B Natriuret Pep 91 pg/mL Total Protein (6.3-8.2) g/dL Albumin (3.5-5.0) g/dL - EKG Data -: EKG Interpreted by Me (EKG shows normal sinus rhythm rate of 126, TX 66, QRS for 51) - Radiology Data Radiology results: report reviewed (CXR is negative for acute disease, CT chest shows PTX and bleb), image reviewed Critical Care Time Critical Care Time: Yes Total Critical Care Time: 31 Disposition Clinical Impression: Asthma exacerbation in COPD, Exacerbation of Crohn's disease, Acute exacerbation of chronic obstructive airways disease, Pneumothorax, right Disposition: ADMITTED IP TO THIS HOSP Condition: Serious Is patient prescribed a controlled substance at d/c from ED?: No Referrals: Heber James MD [Primary Care Provider] - 1-2 days
[2019-02-01 20:37] LABS: ALT 68 U/L (9-52); AST 48 U/L (14-36); Albumin 3.7 g/dL (3.5-5.0); Alkaline Phosphatase 108 U/L (38-126); Blood Urea Nitrogen 11 mg/dL (7-17); Calcium 9.7 mg/dL (8.4-10.2); Chloride 90 mmol/L (98-107); Glucose 167 mg/dL (74-99); Magnesium 1.6 mg/dL (1.6-2.3); Potassium 3.6 mmol/L (3.5-5.1); Sodium 140 mmol/L (137-145); Total Bilirubin 0.6 mg/dL (0.2-1.3)
--- NOTE | 2019-02-01 20:40 | XR ---
EXAMINATION: XR chest 1V portable DATE AND TIME: 02/01/2019 8:27 PM CLINICAL INDICATION: PHH; sob; history COPD and bilateral pneumothorax. TECHNIQUE: Departmental protocol COMPARISON: 12/28/2018 FINDINGS: Vertically-oriented interface seen along the right lateral hemithorax suggests complex righ t pneumothorax, but some lung markings can be seen peripheral to some of these interfaces. CT charact erization requested to fully delineate the abnormal gas collections versus the lung parenchyma. Resul ts discussed with the ordering provider noted to ensure intact communications. On this view the trachea appears slightly left of the spinous processes, but the film appears LPO rot ated. IMPRESSION: RIGHT-SIDED PNEUMOTHORAX; CT CHARACTERIZATION PENDING.
[2019-02-01 20:43] LABS: Anion Gap 11 mmol/L; Carbon Dioxide 39 mmol/L (22-30); Partial Thromboplastin Time 27.2 sec (22.0-30.0); Prothrombin Time 10.9 sec (9.0-12.0)
[2019-02-01 20:50] LABS: Anisocytosis Moderate; Basophils % (A) 0 %; Eosinophils # (A) 0.1 k/uL (0-0.7); Eosinophils % (A) 2 %; Hypochromasia Slight; Lymphocytes % (A) 49 %; MCH 33.4 pg (25.0-35.0); MCV 101.2 fL (80.0-100.0); Macrocytosis Moderate; Mean Platelet Volume 7.7; Monocytes # (A) 0.3 k/uL (0-1.0); Monocytes % (A) 6 %; Neutrophils # (A) 1.6 k/uL (1.3-7.7); Neutrophils % (A) 38 %; Poikilocytosis Moderate; RBC 3.36 m/uL (3.80-5.40); RDW 21.2 % (11.5-15.5); WBC 4.1 k/uL (3.8-10.6)
[2019-02-01 20:55] LABS: HGB 11.2 gm/dL (11.4-16.0); Platelet Count 576 k/uL (150-450)
[2019-02-01 21:10] LABS: D-Dimer 0.93 mg/L FEU (<0.60)
--- NOTE | 2019-02-01 22:10 | CT ---
EXAMINATION TYPE: CT chest wo con DATE OF EXAM: 02/01/2019 COMPARISON: 11/29/2018 CT; 02/01/2019 radiograph HISTORY: Difficulty breathing. CT DLP: 186.8 mGycm. Automated Exposure Control for Dose Reduction was Utilized. TECHNIQUE: CT scan of the thorax is performed without IV contrast. FINDINGS: There is a very large right-sided pneumothorax located anterior and inferior to the right lung parenchyma; this pneumothorax occupies over one-third of the right hemithorax. However, the kno wn massive posterior bulla also occupies another one-third of the right hemithorax. Therefore, only one-third of the right lung parenchyma remains inflated, suggesting this lung is markedly emphysemato us and filled with bullae and blebs. The trachea is midline. There is no left-sided pneumothorax at this time, but massive multifocal bulla and blebs are seen thr oughout the left lung parenchyma. The known bilateral upper lobe bronchogenic masses are redemonstrated, greater in size on the left. Mediastinum, skeletal structures and visualized extrathoracic soft tissues are otherwise unremarkable . IMPRESSION: 1) LARGE RIGHT-SIDED PNEUMOTHORAX IN THE SETTING OF A MASSIVE RIGHT LUNG BULLA. RESULTS CALLED TO RE QUESTING PHYSICIAN JUST NOW, IN ORDER TO ENSURE INTACT COMMUNICATIONS. 2) KNOWN BILATERAL UPPER LOBE BRONCHOGENIC MASSES, GREATER ON THE LEFT.
[2019-02-01] MEDS ORDERED: ALBUTEROL NEBULIZED 2.5 MG/3 ML INHALATION PRN (22:27)
--- NOTE | 2019-02-01 23:32 | XR ---
EXAM: XR Chest, 1 View CLINICAL HISTORY: : "recheck pneumo" TECHNIQUE: Frontal view of the chest. COMPARISON: 12/28/18 FINDINGS: Lungs: No infiltrates or effusions noted.. Hyperinflation the lungs.. There is no evidence of pneumothorax. The patient has a history of massive bullous replacement of the lung. Pleural space: Unremarkable. No pneumothorax. Heart: Unremarkable. No cardiomegaly. Mediastinum: Unremarkable. Bones/joints: Unremarkable. IMPRESSION: There is no evidence for pneumothorax. There is emphysematous changes of the lungs with massive bullous replacement of the lungs. There is hyperinflation of the lungs. The findings are unchanged.
[2019-02-02] MEDS ORDERED: ALBUTEROL NEBULIZED 2.5 MG/3 ML INHALATION STA
[2019-02-02] MEDS ORDERED: SODIUM CHLORIDE 0.9% 500 ML 500 ML IV ONE
[2019-02-02] MEDS ORDERED: SODIUM CHLORIDE 0.9% 1,000 ML IV ONE
[2019-02-02] MEDS: HYDROmorphone 1 MG/ML 1 ML SYRINGE IVP PRN ×5 (01:58→23:01)
[2019-02-02] MEDS: methylPREDNISolone SOD SUCCI 125 MG/2 ML VIAL IV SCH ×5 (01:59→23:00)
[2019-02-02] MEDS: SODIUM CHLORIDE 0.9% 1,000 ML IV SCH ×3 (02:00→18:29)
[2019-02-02] MEDS: IPRATROPIUM-ALBUTEROL 3 ML NEB INHALATION SCH ×4 (08:38→21:16)
[2019-02-02] MEDS: ENOXAPARIN 40 MG/0.4 ML SYRINGE SQ SCH (10:41)
[2019-02-02] MEDS ORDERED: DICYCLOMINE 10 MG CAP PO PRN (12:23)
[2019-02-02] MEDS ORDERED: ACETAMINOPHEN TAB 325 MG TAB PO PRN (12:23)
[2019-02-02] MEDS ORDERED: GUAIFEN PO PRN (12:23)
[2019-02-02] MEDS ORDERED: OPIUM TINCTURE PO PRN (12:23)
[2019-02-02] MEDS ORDERED: PHENYLEPH PO PRN (12:23)
[2019-02-02] MEDS ORDERED: ALBUTEROL NEBULIZED 2.5 MG/3 ML INHALATION PRN (12:23)
[2019-02-02] MEDS ORDERED: [UNRECOGNIZED DRUG - OTHER] PO PRN (12:23)
[2019-02-02] MEDS ORDERED: ACETAMINOPHN PO PRN (12:23)
[2019-02-02] MEDS ORDERED: HYDROmorphone 1 MG/ML 1 ML SYRINGE IVP STA (14:55)
[2019-02-02] MEDS: busPIRone HCl 10 MG TAB PO SCH ×2 (15:13→21:15)
[2019-02-02] MEDS: METOPROLOL TARTRATE 50 MG TAB PO SCH ×2 (15:14→21:16)
[2019-02-02] MEDS: METHOCARBAMOL 750 MG TAB PO SCH ×2 (15:14→21:38)
[2019-02-02] MEDS: SUCRALFATE 1 GM TAB PO SCH ×2 (15:14→21:15)
[2019-02-02] MEDS: GABAPENTIN 300 MG CAP PO SCH ×2 (15:15→21:15)
--- NOTE | 2019-02-02 15:26 | CONS ---
CONSULTATION DATE OF SERVICE: 02/02/2019 REASON FOR CONSULTATION: Shortness of breath. This is a 58-year-old female who sees Dr. Hernandez as a primary. This is a 58-year-old female with a history of end-stage COPD. She apparently presented to the emergency department with complaints of shortness of breath and wheezing. It has been going on for a number of days. Maybe up to a week or so. She has been in the hospital in the ICU many times. She has severe cystic and bullous emphysema. The ER doctor called me because he wanted to put a chest tube in the right chest for suspected pneumothorax. I told him that it was a big bleb and not a pneumothorax. He did not do a chest tube or Thora Vent. Anyway, the patient comes in complaining of shortness of breath. She is chronically short of breath. She apparently was sent to [facility] recently for possible bullectomy, but apparently Dr. Rushing apparently refused to do it because her lung function was so poor that he was concerned that she would not make it through the surgery and she would end up on the ventilator with no hope of getting off. He was supposed to at that time refer her for possible lung transplantation, but has not. The patient sees my partner Dr. Mistry in the office. Today, she is feeling a bit better. In addition to her lungs bothering her and causing her to have shortness of breath, she admits to nausea, vomiting, and diarrhea. MEDICATIONS: Extensive and include Xalatan eyedrops, B12 injections, Bentyl, Pulmicort inhalations twice a day, Neurontin, [place], opium tincture, Tudorza, vitamin D3, Breo, Mucinex, mercaptopurine, vitamins, BuSpar, Xanax, Humira, Cymbalta, melatonin, Robaxin, albuterol inhaler, metoprolol magnesium oxide, Tylenol, and Carafate. ALLERGIES: Numerous and include IV DYE, LYRICA, VIOXX, SULFA, ANTIBIOTICS, ASPIRIN and TIMOLOL. PAST MEDICAL HISTORY: Includes severe bullous emphysema with multiple hospitalizations and exacerbations, fibromyalgia, pneumothorax, GERD, GI bleed, DJD, pneumonia, syncope, Crohn's colitis, bowel obstruction, multiple bowel surgeries including previous colectomy and ileostomy, chronic respiratory failure, right pneumothorax x3, left pneumothorax x1, status post respiratory failure requiring mechanical ventilation, arthritis, GI bleed, osteoporosis, chronic pain syndrome, glaucoma, and retinal tear. SURGICAL HISTORY: Includes cholecystectomy, breast surgery, hernia repair, hysterectomy, orthopedic procedures, multiple bowel surgeries, right salpingo-oophorectomy, hysterectomy, LEEP procedure, laparoscopy, left breast lumpectomy, EGD, colonoscopy, bilateral Thora Vents, ACL tear, tracheostomy and PEG tube. SOCIAL HISTORY: Positive for previous tobacco use. She does not smoke currently. FAMILY HISTORY: Positive for cancer, COPD, hypertension, osteoarthritis, CVA, dementia, diabetes, melanoma. REVIEW OF SYSTEMS: CONSTITUTIONAL: Weakness and fatigue. NEUROLOGIC: Negative. HEENT: Negative. CARDIOVASCULAR: Negative. PULMONARY: Profound shortness of breath with any activity, cough without phlegm production, wheezing, chest tightness. GI: Nausea, vomiting, diarrhea. : Negative. RHEUMATOLOGIC: Negative. IMMUNOLOGIC: Negative. ENDOCRINOLOGIC: Negative. DERMATOLOGIC: Negative. Current vital signs are reviewed, they include a temperature 98.5, heart rate 112, respiratory rate 17, blood pressure 131/69, mean 89 and 3 L saturation is 93%. Appears in no acute distress. Mildly tachypneic. Mild conversational dyspnea. No use of accessory muscles. No audible wheezing. HEENT examination is grossly unremarkable. Mucous membranes are moist. Nasal O2 noted. Neck is supple. Full range of motion. There is hypertrophy of the sternocleidomastoid muscles. Cardiovascular examination reveals regular rhythm and rate. He has got mild tachycardia. It is regular. Heart rate about 110, S1, S2 normal. No murmur. Lungs reveal severely diminished breath sounds throughout. A few scattered rhonchi. No wheezes or crackles. There is prolongation on forced maneuver. Abdomen is soft. Bowel sounds are heard. Extremities are intact. There is no cyanosis, clubbing, or edema. Skin without rash. Neurologic examination is brief but nonfocal. Chest x-ray shows profound changes of COPD. There appears to be a pneumothorax on chest x-ray, but it is actually a big bulla. Repeat chest x-ray shows no evidence of pneumothorax. There is evidence of significant emphysematous changes with masses bolus placement of the lungs. Lungs are very hyperinflated. Diaphragms are flat. Chest CT shows what they are calling a large right-sided pneumothorax, but in fact is just a big bleb/bulla. There was significant emphysematous changes. There is also a large lesion in the left upper lobe. CT scan shows also a large mass left upper lobe and also the lesser lesion on the right side. LABS: Reviewed. White count 4.1, hemoglobin 11.2, hematocrit 34.0, platelet count 576,000. PT, INR PTT normal. D-dimer 0.93. Sodium, potassium normal, chloride 90, CO2 is 39, anion gap is 11, BUN and creatinine were 11 and 0.62. AST is 48 and ALT 68. ASSESSMENT: 1. Chronic obstructive pulmonary disease exacerbation in a patient with severe end- stage COPD and significant bullous emphysema. 2. Recent evaluation for possible bullectomy at [facility], although the patient was rejected for this surgery given the severity of her chronic obstructive pulmonary disease. 3. Bilateral left greater than right upper lobe masses, which could represent bronchogenic carcinoma. 4. Crohn disease with numerous bowel surgeries including colectomy and ileostomy. 5. History of Crohn's disease. 6. Previous history of gastrointestinal bleed. 7. Fibromyalgia. 8. History of syncope. 9. Previous pneumothorax. 10.Previous history of respiratory failure requiring PEG tube placement, tracheostomy subsequently removed. 11.Chronic pain syndrome. 12.Osteoporosis. 13.Multiple medical problems and comorbidities. PLAN: The patient's overall condition is poor. She apparently was rejected for bullectomy at [facility] by Dr. Rushing. His medications will be reviewed. Changes will be made. I did provide information to [facility] for possible lung transplant evaluation down the road. The masses in the chest or certainly a concern and would have to be evaluated before any consideration given to that. Additional recommendations and suggestions forthcoming. Prognosis is poor. MMODL / IJN: [id number] /
[2019-02-02] MEDS: HYDROcodone/APAP 10-325MG 1 EACH TAB PO PRN ×2 (17:20→21:15)
--- NOTE | 2019-02-02 17:50 | P.HPIM ---
History of Present Illness H&P Date: 02/02/19 Chief Complaint: shortness of breath difficulty of breathing 58-year-old female one of Dr. bernard's patient with past medical history of advanced lung disease post bilateral spontaneous pneumothorax of both side will be going for wrap partial lobe resection and [facility] for large bulla in the right side with scheduled for January 13. Patient left the hospital on November 29 when was transferred to [facility] with the recurrent spontaneous pneumothorax. Patient is known to have history of Crohn disease post subtotal colectomy with no flareup lately has been Humira which has been managed by Dr. Verma regular basis.and is currently off her opium since insurance company is not covering for it. Patient presented to d ER complaining of 3-5 days of worsening abdominal pain with nausea insomnia, insomnia, increasing shortness of breath, cough, increasing anxiety, pain is not controlled, patient is on [place] 10 325 every 4 hours when necessary, also decreased her Cymbalta, and is being weaned off her BuSpar from her PCP. Patient does not follow with any pain physician, patient denies any increase use her pain medication. in the emergency room, troponins are negative, EKG shows normal sinus rhythm heart rate of 126, chest x-ray shows no pneumothorax and chest CT shows large right-sided pneumothorax, vs massive right lung bullae noted bilateral upper lobe bronchogenic masses, greater on the leftconsults were made with Dr. Szymanski, pulmonary, patient was seen in the past at [facility], for bullectomy, however report pre-existing pulmonary disease, bullectomy cannot be performed Review of Systems Constitutional: Reports as per HPI, Reports anorexia, Reports chronic pain, Reports poor appetite Ears, nose, mouth and throat: Reports as per HPI, Denies ant. neck pain, Denies bleeding gums, Denies dental pain, Denies dysphagia, Denies epistaxis, Denies he adache, Denies hoarseness, Denies mouth pain, Denies nasal congestion, Denies nasal discharge, Denies neck fullness/pressure, Denies neck lump, Denies nose pain, Denies odynophagia, Denies post-nasal drip, Denies sinus pain, Denies sinus pressure, Denies swelling in mouth, Denies swelling in throat, Denies sore throat, Denies vertigo, Denies voice changes Cardiovascular: Reports as per HPI, Reports decreased exercise tolerance, Reports dyspnea on exertion, Denies chest pain, Denies claudication, Denies edema, Denies high blood pressure, Denies irregular heart beat, Denies leg edema, Denies lightheadedness, Denies orthopnea, Denies palpitations, Denies paroxysmal nocturnal dyspnea, Denies phlebitis, Denies rapid heart beat, Denies shortness of breath, Denies syncope Respiratory: Reports dyspnea Gastrointestinal: Reports abdominal pain, Reports nausea, Denies as per HPI, Denies belching, Denies bloating, Denies BRBPR, Denies change in bowel habits, Denies coffee ground emesis, Denies constipation, Denies diarrhea, Denies dyspepsia, Denies early satiety, Denies excessive gas, Denies heartburn, Denies hematemesis, Denies hematochezia, Denies indigestion, Denies jaundice, Denies lactose intolerance, Denies loss of appetite, Denies melena, Denies vomiting Genitourinary: Reports as per HPI, Denies abnormal vaginal bleeding, Denies decreased libido, Denies difficulty conceiving, Denies difficulty voiding, Denies dysmenorrhea, Denies dyspareunia, Denies dysuria, Denies flank pain, Den ies genital sores, Denies hematuria, Denies hot flashes, Denies incomplete emptying, Denies kidney stones, Denies menorrhagia, Denies mixed incontinence, Denies nocturia, Denies pelvic pain, Denies post void dribbling, Denies , Denies prolapse symptoms, Denies stress incontinence, Denies urge incontinence, Denies urgency, Denies urinary frequency, Denies vaginal discharge, Denies vaginal dryness, Denies vaginal itching, Denies vaginal odor Menstruation: Reports as per HPI, Denies amenorrhea, Denies amenorrhea on BC, Denies currently menstrual, Denies cycle < 21 days, Denies cycle > 35 days, Denies cycle variable, Denies menses 1-7 days, Denies menses 8 or > days, Denies menses variable, Denies period heavy, Denies period light, Denies period normal, Denies period spotting, Denies post hysterectomy, Denies postmenopausal, Denies premenarcheal Musculoskeletal: Reports as per HPI, Reports gait dysfunction, Reports limitation of motion, Reports myalgias, Denies arm numbness/tingling, Denies atrophy, Denies fractures, Denies frequent falls, Denies hot joints, Denies leg numbness/tingling, Denies loss of height, Denies low back pain, Denies morning stiffness, Denies muscle cramps, Denies muscle weakness, Denies neck pain, Denies neck stiffness, Denies prior amputations, Denies redness of joints, Denies shooting arm pain, Denies shooting leg pain Integumentary: Reports as per HPI, Denies acne, Denies boils, Denies brittle nails, Denies change in hair/nails, Denies color changes, Denies darkening of skin, Denies depigmentation, Denies dryness, Denies foot/leg ulcers, Denies growths, Denies hirsutism, Denies lesions, Denies onychomycosis, Denies pruritus, Denies rash, Denies sores, Denies striae, Denies unusual bruising, Denies wounds Neurological: Reports as per HPI Psychiatric: Reports as per HPI, Reports anxiety, Reports depression, Reports difficulty concentrating, Reports insomnia, Reports irritability, Reports mood swings, Reports sleep disturbances, Denies anhedonia, Denies anxiety attacks, Denies change in appetite, Denies change in libido, Denies change in sleep habits, Denies confusion, Denies disorientation, Denies hallucinations, Denies hopelessness, Denies hypersomnia, Denies memory loss, Denies paranoia, Denies sadness/tearfulness, Denies suicidal ideation Endocrine: Reports as per HPI Hematologic/Lymphatic: Reports as per HPI, Denies easy bleeding, Denies easy bruising, Denies lymphadenopathy, Denies lymphedema, Denies thrombophilia Allergic/Immunologic: Reports as per HPI, Reports persistent infections Past Medical History Past Medical History: COPD, Fibromyalgia, GERD/Reflux, GI Bleed, Osteoarthritis (OA), Pneumonia, Syncope Additional Past Medical History / Comment(s): Crohn's colitis, bowel obstructions, multiple bowel surgeries including total colectomy/ileostomy, s evere COPD, chronic respiratory failure, home O2 3L/NC, bullous emphysema, R lung bleb-to have R lung surgery on 01/15/19 at [facility], R pneumothorax x3, L pneumothorax x1 and had bilateral pneumothorax 09/2018-acute respiratory failure/vented/cardiac arrest, tachycardia, hiatal hernia, lower GI bleeds, a rthritis in multiple joints, osteoporosis, chronic pain, seasonal allergies, bilateral glaucoma and has had bilateral eye surgery for retinal tears/holes. History of Any Multi-Drug Resistant Organisms: None Reported Past Surgical History: Breast Surgery, Cholecystectomy, Hernia Repair, Hysterectomy, Orthopedic Surgery Additional Past Surgical History / Comment(s): Multiple bowel surgeries including total colectomy/ileostomy, ileostomy moved/repaired, R salpingoophorectomy due to ectopic , total hysterectomy, leep procedure, laparoscopy for endometriosis, L breast lumpectomy-benign, r breast core bx-benign, EGD/colonoscopies, bilateral thoravents, arthroscopic knee surgery on the right due to ACL and Meniscal tear, trach and peg tube-since removed. Past Anesthesia/Blood Transfusion Reactions: No Reported Reaction Past Psychological History: Anxiety, Depression Additional Psychological History / Comment(s): Pt is staying with her sister who has a one level home. Her spouse is staying between their home to care for the dogs and pt's sister's house. Pt uses 02 3l n/c atc, has nebulizer, walker. She is receiving PT at home thru [facility]. Smoking Status: Former smoker Past Alcohol Use History: None Reported Additional Past Alcohol Use History / Comment(s): Patient used to smoke 1 pack per day since she was 17 and smoked for 30 years and quit in January 2017. Past Drug Use History: None Reported - Past Family History Mother Family Medical History: Cancer, COPD, Hypertension Additional Family Medical History / Comment(s): Mother at age 83 from COPD and had osteoarthritis and skin cancer. Father Family Medical History: Cancer, CVA/TIA, Dementia, Diabetes Mellitus Additional Family Medical History / Comment(s): Father is 92 yrs old. He has had several TIAs and a CVA Brother(s) Family Medical History: Cancer Additional Family Medical History / Comment(s): Patient had 5 brothers and one of them from melanoma at age 41. Sister(s) History Unknown: Yes Family Medical History: No Reported History Additional Family Medical History / Comment(s): Patient has one sister. Patient has no children Medications and Allergies Home Medications Medication Instructions Recorded Confirmed Type Latanoprost Ophth [Xalatan 0.005%] 1 drop BOTH EYES HS 05/21/17 02/01/19 History Cyanocobalamin [Vitamin B-12 1,000 mcg SQ Q30D 07/24/18 02/01/19 History Injection] Dicyclomine [Bentyl] 10 mg PO TID PRN 07/24/18 02/01/19 History Budesonide 1 mg INHALATION RT-BID PRN 09/27/18 02/01/19 History Gabapentin [Neurontin] 300 mg PO TID 09/27/18 02/01/19 History HYDROcodone/APAP 10-325MG [[place] 1 tab PO Q4H PRN 09/27/18 02/01/19 History 10-325] Opium Tincture 10mg/1ml 20 mg PO BID PRN 09/27/18 02/01/19 History Albuterol Nebulized [Ventolin 2.5 mg INHALATION RT-QID PRN #120 11/10/18 02/01/19 Rx Nebulized] nebu Metoprolol Tartrate [Lopressor] 50 mg PO TID #90 tab 11/10/18 02/01/19 Rx Magnesium Oxide [Mag-Ox] 400 mg PO DAILY #30 tablet 11/11/18 02/01/19 Rx Aclidinium [place] [[place] 1 puff INHALATION RT-BID 11/29/18 02/01/19 History [place]] Cholecalciferol (Vitamin D3) 2,000 unit PO DAILY 11/29/18 02/01/19 History [Vitamin D3] Fluticasone/Vilanterol [Breo 1 puff INHALATION RT-DAILY 11/29/18 02/01/19 History Ellipta 200-25 Mcg INH] Guaifen/Phenyleph/Acetaminophn 10 ml PO Q6H PRN 11/29/18 02/01/19 History [Mucinex Sinus-Max Severe Liq] Mercaptopurine [Purinethol] 50 mg PO BID 11/29/18 02/01/19 History Multivitamins, Thera [Multivitamin 1 tab PO DAILY 11/29/18 02/01/19 History (formulary)] busPIRone HCl [Buspar] 10 mg PO TID 11/29/18 02/01/19 History Acetaminophen Tab [Tylenol] 650 mg PO Q4HR PRN tab 11/30/18 02/01/19 Rx ALPRAZolam [Xanax] 0.25 mg PO DAILY PRN 12/28/18 02/01/19 History Adalimumab [Humira(Cf) Pen] 40 mg SQ Q7D 12/28/18 02/01/19 History DULoxetine HCL [Cymbalta] 30 mg PO DAILY 12/28/18 02/01/19 History Melatonin 5 mg PO HS 12/28/18 02/01/19 History Methocarbamol [Robaxin] 750 mg PO TID 12/28/18 02/01/19 History Sucralfate [Carafate] 1 gm PO TID #900 ml 12/31/18 02/01/19 Rx Allergies Allergy/AdvReac Type Severity Reaction Status Date / Time Iodinated Contrast- Oral and Allergy Anaphylaxis Verified 02/01/19 20:01 IV Dye pregabalin [From Lyrica] Allergy Unknown Verified 02/01/19 20:01 rofecoxib [From Vioxx] Allergy Unknown Verified 02/01/19 20:01 Sulfa (Sulfonamide Allergy Rash/Hives Verified 02/01/19 20:01 Antibiotics) aspirin AdvReac Internal Verified 02/01/19 20:01 Bleeding timolol [Timolol] AdvReac Nausea & Verified 02/01/19 20:01 Vomiting Physical Exam Vitals: Vital Signs Temp Pulse Pulse Resp BP BP Pulse Ox 02/02/19 12:09 112 H 02/02/19 11:57 112 H 02/02/19 08:54 120 H 02/02/19 08:39 128 H 02/02/19 08:00 98.5 F 123 H 17 126/70 95 02/02/19 04:45 125 H 20 102/52 93 L 02/02/19 03:08 98.3 F 120 H 22 136/77 92 L 02/02/19 00:35 108 H 20 118/33 96 02/02/19 00:32 109 H 22 02/02/19 00:13 97/76 02/02/19 00:06 108 H 20 02/01/19 23:55 98.1 F 104 H 20 83/61 99 02/01/19 22:38 97.7 F 106 H 20 94/67 96 02/01/19 21:28 105 H 22 124/71 95 02/01/19 21:12 96 02/01/19 21:11 100 17 116/93 100 02/01/19 20:40 102 H 02/01/19 20:30 95 18 122/90 99 02/01/19 20:26 106 H 02/01/19 20:05 110 H 19 131/107 98 02/01/19 19:54 98.3 F 104 H 20 170/108 90 L Intake and Output 02/01/19 02/02/19 02/02/19 22:59 06:59 14:59 Intake Total 120 240 Balance 120 240 Intake: Oral 120 240 Other: Voiding Method Bedside Commode Bedside Commode Weight 43.001 kg 43.3 kg 43.3 kg - Constitutional General appearance: cooperative, mild distress, thin - EENT Eyes: anicteric sclerae, PERRLA, dentition normal, normal appearance ENT: hearing grossly normal, normal oropharynx - Neck Neck: normal ROM - Respiratory Respiratory: bilateral: CTA, diminished, negative: rhonchi, wheezing, prolonged expiration, prolonged inspiration - Cardiovascular Rhythm: regular Heart sounds: normal: S1, S2 - Gastrointestinal ileostomy bag General gastrointestinal: soft, tenderness - Integumentary Integumentary: decreased turgor, normal - Neurologic Neurologic: CNII-XII intact - Musculoskeletal Musculoskeletal: gait normal, generalized weakness, strength equal bilaterally - Psychiatric Psychiatric: A&O x's 3, appropriate affect, intact judgment & insight Results CBC & Chem 7: 02/01/19 20:04 02/01/19 20:04 Labs: Abnormal Lab Results - Last 24 Hours (Table) 02/01/19 02/01/19 02/01/19 Range/Units 20:04 20:04 20:04 RBC 3.36 L (3.80-5.40) m/uL Hgb 11.2 L D (11.4-16.0) gm/dL MCV 101.2 H (80.0-100.0) fL RDW 21.2 H (11.5-15.5) % Plt Count 576 H D (150-450) k/uL D-Dimer 0.93 H (<0.60) mg/L FEU Chloride 90 L (98-107) mmol/L Carbon Dioxide 39 H (22-30) mmol/L Glucose 167 H (74-99) mg/dL AST 48 H (14-36) U/L ALT 68 H (9-52) U/L Total Protein 6.0 L (6.3-8.2) g/dL Laboratory Results WBC 4.1 k/uL (3.8-10.6) 02/01/19 20:04 RBC 3.36 m/uL (3.80-5.40) L 02/01/19 20:04 Hgb 11.2 gm/dL (11.4-16.0) L D 02/01/19 20:04 Hct 34.0 % (34.0-46.0) 02/01/19 20:04 MCV 101.2 fL (80.0-100.0) H 02/01/19 20:04 MCH 33.4 pg (25.0-35.0) 02/01/19 20:04 MCHC 33.0 g/dL (31.0-37.0) 02/01/19 20:04 RDW 21.2 % (11.5-15.5) H 02/01/19 20:04 Plt Count 576 k/uL (150-450) H D 02/01/19 20:04 Neutrophils % 38 % 02/01/19 20:04 Lymphocytes % 49 % 02/01/19 20:04 Monocytes % 6 % 02/01/19 20:04 Eosinophils % 2 % 02/01/19 20:04 Basophils % 0 % 02/01/19 20:04 Neutrophils # 1.6 k/uL (1.3-7.7) 02/01/19 20:04 Lymphocytes # 2.0 k/uL (1.0-4.8) 02/01/19 20:04 Monocytes # 0.3 k/uL (0-1.0) 02/01/19 20:04 Eosinophils # 0.1 k/uL (0-0.7) 02/01/19 20:04 Basophils # 0.0 k/uL (0-0.2) 02/01/19 20:04 Hypochromasia Slight 02/01/19 20:04 Poikilocytosis Moderate 02/01/19 20:04 Anisocytosis Moderate 02/01/19 20:04 Macrocytosis Moderate 02/01/19 20:04 PT 10.9 sec (9.0-12.0) 02/01/19 20:04 INR 1.0 (<1.2) 02/01/19 20:04 APTT 27.2 sec (22.0-30.0) 02/01/19 20:04 D-Dimer 0.93 mg/L FEU (<0.60) H 02/01/19 20:04 Sodium 140 mmol/L (137-145) 02/01/19 20:04 Potassium 3.6 mmol/L (3.5-5.1) 02/01/19 20:04 Chloride 90 mmol/L (98-107) L 02/01/19 20:04 Carbon Dioxide 39 mmol/L (22-30) H 02/01/19 20:04 Anion Gap 11 mmol/L 02/01/19 20:04 BUN 11 mg/dL (7-17) 02/01/19 20:04 Creatinine 0.62 mg/dL (0.52-1.04) 02/01/19 20:04 Est GFR (CKD-EPI)AfAm >90 (>60 ml/min/1.73 sqM) 02/01/19 20:04 Est GFR (CKD-EPI)NonAf >90 (>60 ml/min/1.73 sqM) 02/01/19 20:04 Glucose 167 mg/dL (74-99) H 02/01/19 20:04 Calcium 9.7 mg/dL (8.4-10.2) 02/01/19 20:04 Magnesium 1.6 mg/dL (1.6-2.3) 02/01/19 20:04 Total Bilirubin 0.6 mg/dL (0.2-1.3) 02/01/19 20:04 AST 48 U/L (14-36) H 02/01/19 20:04 ALT 68 U/L (9-52) H 02/01/19 20:04 Alkaline Phosphatase 108 U/L (38-126) 02/01/19 20:04 Troponin I <0.012 ng/mL (0.000-0.034) 02/01/19 20:04 NT-Pro-B Natriuret Pep 91 pg/mL 02/01/19 20:04 Total Protein 6.0 g/dL (6.3-8.2) L 02/01/19 20:04 Albumin 3.7 g/dL (3.5-5.0) 02/01/19 20:04 Thrombosis Risk Factor Assmnt - DVT/VTE Prophylaxis DVT/VTE Prophylaxis: Pharmacologic Prophylaxis ordered - Choose All That Apply Any of the Below Risk Factors Present?: Yes Each Factor Represents 1 point: Abnormal pulmonary function (COPD), Acute IN, Hx of IBD, Serious lung disease incl. pneumonia (< 1month) Other Risk Factors: No Other congenital or acquired thrombophilia - If yes, enter type in comment: No Thrombosis Risk Factor Assessment Total Risk Factor Score: 4 Thrombosis Risk Factor Assessment Level: Moderate Risk Assessment and Plan Plan: 1 acute abdominal pain acute episode of Crohn's colitis flareup with prior history off coloproctectomy and ileostomy, consult gastroenterology continue steroid for now on Humira,obtain CRP and sed rate, obtain CT abdomen with oral contrast 2 acute flareup of chron's colitis: Patient has been on Humira we'll add steroid for now continue hydration and pain management. 3 advance lung disease with multiple rupture bulla and spontaneous pneumothorax in the past, currently was noted to be very large, rather than the pneumothorax that was seen, unable to do partial lobectomy at [facility] in January 13 secondary to poor pre-existing pulmonary function. 4 advance COPD: Continue patient on O2 continue Breo, DuoNeb and Pulmicort. 5 chronic depression: Has been on Cymbalta 30 mg a daythis needs to be titrated up, however PCP declined maintaining this at the twice a day dosing, and BuSpar 10 mg 3 times a day. add Remeron 7.5 mg at bedtime for insomnia and nausea and increasing depression 6 hypertension: Remain on Lopressor 50 mg 3 times a day. 7 arrhythmia mostly tachycardia has been on Lopressor. 8 Chronic pain managementuncontrolled fibromyalgia,: Patient has been on hydrocodone associate with gabapentin.no change, Cymbalta 30 mg daily, 9 GI bleed: Hemoccult will be done patient is seen GI this drop in hemoglobin below 8 further testing including colonoscopy and blood transfusion be done. 10 GI prophylaxis/GERD: Patient remain on Pepcid. 11 DVT prophylaxis: Early mobilization and knee-high EMLEIA hose. CODE STATUS: Full code.
[2019-02-02] MEDS: MIRTAZAPINE 15 MG TAB PO SCH (18:27)
[2019-02-02] MEDS: BARIUM SULFATE 450 ML ORAL.SUSP BOTTLE PO PRN ×2 (18:29→21:36)
[2019-02-02] MEDS ORDERED: FAMOTIDINE 20 MG/2 ML VIAL IV ONE (21:00)
[2019-02-02] MEDS ORDERED: diphenhydrAMINE 50 MG/ML 1 ML VIAL IVP ONE (21:00)
[2019-02-02] MEDS ORDERED: methylPREDNISolone SOD SUCCI 125 MG/2 ML VIAL IV ONE (21:00)
[2019-02-02] MEDS: AMOXIC-POT CLAV 875-125MG 1 EACH TAB PO SCH (21:16)
[2019-02-02] MEDS: FORMOTEROL FUMARATE 20 MCG/2 ML NEBU INHALATION SCH (21:16)
[2019-02-02] MEDS ORDERED: IPRATROPIUM-ALBUTEROL 3 ML NEB INHALATION PRN (21:17)
[2019-02-02] MEDS: LATANOPROST 0.005% OPHTH DROPS 2.5 ML BTL BOTH EYES SCH (21:37)
[2019-02-02] MEDS: MERCAPTOPURINE 50 MG TAB PO SCH (21:38)
[2019-02-02] MEDS: MELATONIN 5 MG TABLET PO SCH (21:38)
[2019-02-02] MEDS: ALPRAZolam 0.25 MG TAB PO PRN (23:07)
[2019-02-03] MEDS: HYDROmorphone 1 MG/ML 1 ML SYRINGE IVP PRN ×5 (04:53→22:29)
[2019-02-03] MEDS: HYDROcodone/APAP 10-325MG 1 EACH TAB PO PRN ×4 (06:43→20:19)
[2019-02-03] MEDS: methylPREDNISolone SOD SUCCI 125 MG/2 ML VIAL IV SCH ×2 (06:44→11:30)
[2019-02-03] MEDS: SODIUM CHLORIDE 0.9% 1,000 ML IV SCH ×3 (06:46→23:02)
[2019-02-03 07:16] LABS: Anion Gap 5 mmol/L; Blood Urea Nitrogen 11 mg/dL (7-17); C Reactive Protein <5.0 mg/L (<10.0); Calcium 8.9 mg/dL (8.4-10.2); Carbon Dioxide 32 mmol/L (22-30); Chloride 103 mmol/L (98-107); Glucose 113 mg/dL (74-99); Lipase 18 U/L (23-300); Potassium 4.7 mmol/L (3.5-5.1); Sodium 140 mmol/L (137-145)
[2019-02-03 07:38] LABS: Anisocytosis Moderate; Basophils % (A) 0 %; Eosinophils # (A) 0.1 k/uL (0-0.7); Eosinophils % (A) 1 %; HCT 24.1 % (34.0-46.0); Hypochromasia Slight; Lymphocytes # (A) 0.7 k/uL (1.0-4.8); Lymphocytes % (A) 10 %; MCH 35.7 pg (25.0-35.0); MCHC 34.3 g/dL (31.0-37.0); MCV 104.1 fL (80.0-100.0); Macrocytosis Marked; Monocytes # (A) 0.2 k/uL (0-1.0); Monocytes % (A) 3 %; Neutrophils # (A) 5.5 k/uL (1.3-7.7); Neutrophils % (A) 84 %; Platelet Count 367 k/uL (150-450); Poikilocytosis Moderate; RBC 2.31 m/uL (3.80-5.40); RDW 21.5 % (11.5-15.5); WBC 6.5 k/uL (3.8-10.6)
[2019-02-03 08:12] LABS: HGB 8.2 gm/dL (11.4-16.0)
[2019-02-03] MEDS: IPRATROPIUM-ALBUTEROL 3 ML NEB INHALATION SCH ×4 (08:41→20:32)
[2019-02-03] MEDS: FORMOTEROL FUMARATE 20 MCG/2 ML NEBU INHALATION SCH ×2 (08:41→20:31)
[2019-02-03] MEDS: BUDESONIDE 1 MG/2 ML NEBU INHALATION PRN ×2 (08:41→20:31)
[2019-02-03] MEDS ORDERED: ADALIMUMAB 40 MG/0.4 ML SQ ONE (09:00)
[2019-02-03] MEDS ORDERED: ADALIMUMAB 40 MG/0.8 ML SQ ONE (09:00)
[2019-02-03] MEDS: GABAPENTIN 300 MG CAP PO SCH ×3 (09:31→21:21)
[2019-02-03] MEDS: METOPROLOL TARTRATE 50 MG TAB PO SCH ×3 (09:31→21:21)
[2019-02-03] MEDS: busPIRone HCl 10 MG TAB PO SCH ×3 (09:31→21:21)
[2019-02-03] MEDS: ENOXAPARIN 40 MG/0.4 ML SYRINGE SQ SCH (09:31)
[2019-02-03] MEDS: AMOXIC-POT CLAV 875-125MG 1 EACH TAB PO SCH ×2 (09:31→21:21)
[2019-02-03] MEDS: DULoxetine HCL 30 MG CAPSULE.DR PO SCH (09:31)
[2019-02-03] MEDS: SUCRALFATE 1 GM TAB PO SCH ×3 (09:32→21:21)
[2019-02-03] MEDS: MERCAPTOPURINE 50 MG TAB PO SCH ×2 (09:40→22:30)
[2019-02-03] MEDS: METHOCARBAMOL 750 MG TAB PO SCH ×3 (10:50→21:21)
[2019-02-03 11:18] LABS: Erythrocyte Sedimentation Rate 15 mm/hr (0-20)
[2019-02-03] MEDS: MAGNESIUM OXIDE 400 MG TAB PO SCH (11:31)
[2019-02-03] MEDS: MULTIVITAMINS, THERA 1 EACH TAB PO SCH (11:31)
--- NOTE | 2019-02-03 12:33 | PN ---
PROGRESS NOTE This is a 58-year-old female with a history of severe end-stage in bullous emphysema. She was recently evaluated by Dr. Rushing at [facility] for possible embolectomy. He apparently declined to do the procedure because her lung functions were so bad and he did not think that she would be able to tolerate the procedure. Anyway, the patient was admitted with a diagnosis of COPD exacerbation. They were about ready to put a chest tube in the patient, but the right upper lobe area is all bullous disease rather than pneumothorax. In fact, if you read the x-ray reports and the CAT scan reports there are conflicting opinions given by the various radiologists. In addition to severe bullous emphysema, she has a history of fibromyalgia, pneumothorax, GERD, GI bleed, DJD, pneumonia, syncope, colitis, and multiple other medical problems including respiratory failure requiring intubation and mechanical ventilation. We did make a referral down to a lung transplant at [facility]. Currently, she is feeling a bit better today. Not a lot. She is still very short of breath. She has got chest tightness, wheezing, cough, chest congestion. She is coughing up phlegm. In addition, she admits that her GI tract is active right now. Currently, her vital signs are reviewed. Her temperature is 97.8. Heart rate 100, respiratory rate 22, blood pressure 116/66, mean 82, and 3 L saturation 96%. Appears in no acute distress. HEENT examination is grossly unremarkable. Mucous membranes are moist. No oral lesions. Neck is supple. Full range of motion. No adenopathy or thyromegaly. Neck veins are flat. Cardiovascular examination reveals regular rhythm and rate. Heart rate is about 100 beats per minute. It is regular. S1, S2 normal. Heart sounds are distant. Lungs reveal severely diminished breath sounds throughout. A few scattered rhonchi noted. No wheezes or crackles. Abdomen is soft. Bowel sounds are heard. Extremities are intact. No cyanosis, clubbing, or edema. Skin without rash. Neurologic examination is nonfocal. LABS: Reviewed. White count 6.5, hemoglobin 8.2, hematocrit 24.1, platelet count 367,000. Sodium 140, potassium 4.7, chloride 103, CO2 32. Rest of her labs look okay. A CT of the abdomen and pelvis was ordered because of her ongoing abdominal discomfort. Chest x-rays and CT scans are reviewed. Medications are reviewed. Microbiology is reviewed. ASSESSMENT: 1. Chronic obstructive pulmonary disease exacerbation in a patient with end-stage chronic obstructive pulmonary disease and significant bullous emphysema. 2. Recent evaluation for possible bullectomy at [facility], though the patient was rejected because of poor lung function. 3. Bilateral left greater than right upper lobe masses which could represent bronchogenic carcinoma. These would certainly have to be evaluated prior to any additional thoracic procedures. 4. Crohn's disease with numerous bowel surgery including colectomy and ileostomy, somewhat active at this time. 5. History of Crohn's disease, active with diarrhea. 6. Previous history of gastrointestinal bleed. 7. Fibromyalgia. 8. History of syncope. 9. Previous pneumothorax. 10.Previous history of respiratory failure requiring endotracheal intubation and PEG tube placement with subsequent tracheostomy, all of which have been removed. 11.History of chronic pain syndrome. 12.Osteoporosis. 13.Multiple other medical problems and comorbidities. PLAN: I used the [facility] transplant FARRUKH to give information to the transplant physicians and nurses at [facility] in regards to this patient. I left my name, Dr. Mistry's name and also the patient's name. No additional recommendations and suggestions are made. The patient's overall prognosis is poor. The ER physician was about ready to place a Thoravent or chest tube into the patient. The patient has a large bullous lesion in the right upper lobe. I am glad that they did not. Additional recommendations and suggestions are forthcoming. She is now being evaluated for active inflammatory bowel disease. We will continue to follow. Prognosis is very guarded. The patient will see Dr. Mistry tomorrow, which is her current and primary lung physician. MMODL / IJN: [id number] /
--- NOTE | 2019-02-03 14:16 | CT ---
EXAMINATION TYPE: CT abdomen pelvis w con DATE OF EXAM: 02/02/2019 COMPARISON: The prior CT 12/28/2018 and chest x-ray and chest CT 02/01/2019 HISTORY: History of Crohn's and ulcerative colitis. Abdominal pain. CT DLP: 451.1 mGycm Automated exposure control for dose reduction was used. TECHNIQUE: Helical acquisition of images from the lung bases through the pelvis have been completed. CONTRAST: Performed with Oral Contrast and with IV Contrast, patient injected with 100 mL of Isovue 300. FINDINGS: LUNG BASES: Right-sided hydropneumothorax is again noted. Extensive emphysematous changes are present at the lung bases. There is trace pericardial effusion. AORTA: No significant abnormality is appreciated. Left-sided inferior vena cava is present to the le leo of the renal veins. LIVER/GB: The liver is enlarged and shows low attenuation. Patient is post cholecystectomy. PANCREAS: No significant abnormality is seen. SPLEEN: No significant abnormality is seen. ADRENALS: No significant abnormality is seen. KIDNEYS: No significant abnormality is seen. REPRODUCTIVE ORGANS: Not seen BOWEL: Ostomy is present in the right lower quadrant. No evident bowel obstruction. Multiple surgica l clips are present in the presacral location. Colon is not seen. There is a small hiatal hernia pres ent. FREE AIR: No Free Air visible. ASCITES: None visible. PELVIC ADENOPATHY: None visualized. RETROPERITONEAL ADENOPATHY: No Retroperitoneal Adenopathy visible. URINARY BLADDER: No significant abnormality is seen. OSSEOUS STRUCTURES: No significant interval change is seen. Superior endplate depressions present at L4 and L3 as on prior. IMPRESSION: RIGHT-SIDED HYDROPNEUMOTHORAX PERSISTS. Hepatomegaly, correlate for hepatic steatosis. Postop changes . Additional nonspecific findings described above. A Red level critical message alert has been initiated for Janina Arvizu via the [employer] Results System on 02/03/2019 2:14 PM. This message alert has been sent to Janina Arvizu via the pr eferences provided by the clinician for the receipt of Radiology Critical Findings. Message ID [id number].
--- NOTE | 2019-02-03 15:32 | P.PN ---
Subjective Progress Note Date: 02/03/19 58-year-old female one of Dr. bernard's patient with past medical history of advanced lung disease post bilateral spontaneous pneumothorax of both side will be going for wrap partial lobe resection and [facility] for large bulla in the right side with scheduled for January 13. Patient left the hospital on November 29 when was transferred to [facility] with the recurrent spontaneous pneumothorax. Patient is known to have history of Crohn disease post subtotal colectomy with no flareup lately has been Humira which has been managed by Dr. Verma regular basis.and is currently off her opium since insurance company is not covering for it. Patient presented to d ER complaining of 3-5 days of worsening abdominal pain with nausea insomnia, insomnia, increasing shortness of breath, cough, increasing anxiety, pain is not controlled, patient is on [place] 10 325 every 4 hours when necessary, also decreased her Cymbalta, and is being weaned off her BuSpar from her PCP. Patient does not follow with any pain physician, patient denies any increase use her pain medication. in the emergency room, troponins are negative, EKG shows normal sinus rhythm heart rate of 126, chest x-ray shows no pneumothorax and chest CT shows large right-sided pneumothorax, vs massive right lung bullae noted bilateral upper lobe bronchogenic masses, greater on the leftconsults were made with Dr. Meza, pulmonary, patient was seen in the past at [facility], for bullectomy, however with severe pre-existing pulmonary disease, bullectomy cannot be performed 02/03: Patient continues to have lower abdominal pain and epigastric pain, no signs of melanoma hematochezia, labs are back that shows normal sed rate and CRP, still with frequent liquid stools, it is more less liquidy as patient has been taking more toward it, CAT scan of the abdomen and pelvis shows no ne abnormal pathology in the GI tract however it is a critical report based on the large hydropneumothorax that was suspected, exam shows gastritis, Pepcid was discontinued, Protonix was initiated along with Carafate, H pylori test to be done, based on patient's report, she is due for an EGD the last one was done 6 years ago, she is also due for a lower GI colonoscopy for surveillance, by Dr. Verma, Dr. Bosher has recommended a referral to lung transplant [facility] post discharge, no urinalysis was done from the emergency room, we'll going to obtain urine evaluation secondary to persistently lower abdominal pain. Nausea still persistent, no vomiting, patient has improvement on sleep and fibromyalgia, patient slept 4 hours with Remeron initiated last night patient still drinks a lot of Pepsi products, has chronic sleep deprived lesion in the past Review of Systems Constitutional: Reports as per HPI, Reports anorexia, Reports chronic pain, Reports poor appetite Ears, nose, mouth and throat: Reports as per HPI, Denies ant. neck pain, Denies bleeding gums, Denies dental pain, Denies dysphagia, Denies epistaxis, Denies headache, Denies hoarseness, Denies mouth pain, Denies nasal congestion, Denies nasal discharge, Denies neck fullness/pressure, Denies neck lump, Denies nose pain, Denies odynophagia, Denies post-nasal drip, Denies sinus pain, Denies sinus pressure, Denies swelling in mouth, Denies swelling in throat, Denies sore throat, Denies vertigo, Denies voice changes Cardiovascular: Reports as per HPI, Reports decreased exercise tolerance, Reports dyspnea on exertion, Denies chest pain, Denies claudication, Denies edema, Denies high blood pressure, Denies irregular heart beat, Denies leg ed jace, Denies lightheadedness, Denies orthopnea, Denies palpitations, Denies paroxysmal nocturnal dyspnea, Denies phlebitis, Denies rapid heart beat, Denies shortness of breath, Denies syncope Respiratory: Reports dyspnea Gastrointestinal: Reports abdominal pain, Reports nausea, Denies as per HPI, Denies belching, Denies bloating, Denies BRBPR, Denies change in bowel habits, Denies coffee ground emesis, Denies constipation, Denies diarrhea, Denies dyspepsia, Denies early satiety, Denies excessive gas, Denies heartburn, Denies hematemesis, Denies hematochezia, Denies indigestion, Denies jaundice, Denies lactose intolerance, Denies loss of appetite, Denies melena, Denies vomiting Genitourinary: Reports as per HPI, Denies abnormal vaginal bleeding, Denies decreased libido, Denies difficulty conceiving, Denies difficulty voiding, Denies dysmenorrhea, Denies dyspareunia, Denies dysuria, Denies flank pain, Denies genital sores, Denies hematuria, Denies hot flashes, Denies incomplete emptying, Denies kidney stones, Denies menorrhagia, Denies mixed incontinence, Denies nocturia, Denies pelvic pain, Denies post void dribbling, Denies , Denies prolapse symptoms, Denies stress incontinence, Denies urge incontinence, Denies urgency, Denies urinary frequency, Denies vaginal discharge, Denies vaginal dryness, Denies vaginal itching, Denies vaginal odor Menstruation: Reports as per HPI, Denies amenorrhea, Denies amenorrhea on BC, Denies currently menstrual, Denies cycle < 21 days, Denies cycle > 35 days, Denies cycle variable, Denies menses 1-7 days, Denies menses 8 or > days, Denies menses variable, Denies period heavy, Denies period light, Denies period normal, Denies period spotting, Denies post hysterectomy, Denies postmenopausal, Denies premenarcheal Musculoskeletal: Reports as per HPI, Reports gait dysfunction, Reports limitation of motion, Reports myalgias, Denies arm numbness/tingling, Denies atrophy, Denies fractures, Denies frequent falls, Denies hot joints, Denies leg numbness/tingling, Denies loss of height, Denies low back pain, Denies morning stiffness, Denies muscle cramps, Denies muscle weakness, Denies neck pain, Denies neck stiffness, Denies prior amputations, Denies redness of joints, Denies shooting arm pain, Denies shooting leg pain Integumentary: Reports as per HPI, Denies acne, Denies boils, Denies brittle nails, Denies change in hair/nails, Denies color changes, Denies darkening of skin, Denies depigmentation, Denies dryness, Denies foot/leg ulcers, Denies growths, Denies hirsutism, Denies lesions, Denies onychomycosis, Denies pruritus, Denies rash, Denies sores, Denies striae, Denies unusual bruising, Denies wounds Neurological: Reports as per HPI Psychiatric: Reports as per HPI, Reports anxiety, Reports depression, Reports difficulty concentrating, Reports insomnia, Reports irritability, Reports mood swings, Reports sleep disturbances, Denies anhedonia, Denies anxiety attacks, Denies change in appetite, Denies change in libido, Denies change in sleep habits, Denies confusion, Denies disorientation, Denies hallucinations, Denies hopelessness, Denies hypersomnia, Denies memory loss, Denies paranoia, Denies sadness/tearfulness, Denies suicidal ideation Endocrine: Reports as per HPI Hematologic/Lymphatic: Reports as per HPI, Denies easy bleeding, Denies easy bruising, Denies lymphadenopathy, Denies lymphedema, Denies thrombophilia Allergic/Immunologic: Reports as per HPI, Reports persistent infections Objective - Vital Signs Vital signs: Vital Signs Temp 98.3 F 02/03/19 12:00 Pulse 96 02/03/19 13:22 Resp 20 02/03/19 12:00 BP 110/72 02/03/19 12:00 Pulse Ox 98 02/03/19 12:00 Intake & Output 02/02/19 02/03/19 02/03/19 18:59 06:59 18:59 Intake Total 390 240 Balance 390 240 Weight 43.3 kg 45.3 kg Intake: Oral 390 240 Other: Voiding Method Bedside Commode Bedside Commode # Voids 1 1 2 # Bowel Movements 2 2 - Constitutional General appearance: Present: cooperative, no acute distress - EENT Eyes: Present: anicteric sclerae, EOMI, PERRLA, dentition normal, normal appearance ENT: Present: hearing grossly normal, normal oropharynx - Neck Neck: Present: normal ROM - Respiratory Respiratory: bilateral: CTA, diminished, negative: dullness, rales - Cardiovascular Rhythm: regular Heart sounds: normal: S1, S2 Abnormal Heart Sounds: Absent: systolic murmur, diastolic murmur, rub, S3 Gallop, S4 Gallop, click, other - Gastrointestinal General gastrointestinal: Present: organomegaly, soft, tenderness (Epigastric and lower abdominal) - Integumentary Integumentary: Present: decreased turgor, normal - Neurologic Neurologic: Present: CNII-XII intact - Musculoskeletal Musculoskeletal: Present: gait normal, strength equal bilaterally - Labs CBC & Chem 7: 02/04/19 06:23 02/04/19 06:23 Labs: Abnormal Lab Results - Last 24 Hours (Table) 02/03/19 02/03/19 Range/Units 06:20 06:20 RBC 2.31 L (3.80-5.40) m/uL Hgb 8.2 L D (11.4-16.0) gm/dL Hct 24.1 L (34.0-46.0) % MCV 104.1 H (80.0-100.0) fL MCH 35.7 H (25.0-35.0) pg RDW 21.5 H (11.5-15.5) % Lymphocytes # 0.7 L (1.0-4.8) k/uL Carbon Dioxide 32 H (22-30) mmol/L Glucose 113 H (74-99) mg/dL Lipase 18 L (23-300) U/L Assessment and Plan Plan: 1 acute abdominal pain acute episode of Crohn's colitis flareup suspected initially on admission with prior history offcoloproctectomy and ileostomy, consult gastroenterology continue steroid for now on Humira,obtain CRP and sed rate, obtain CT abdomen with oral contrast, with normal sed rate and CRP, [employer] Benefits [employer] hn's exacerbation is less likely, however his continue on Humira from home, he would start tapering down Solu-Medrol, check UA, with reflex to culture, start PPI Protonix 40 mg daily, Carafate 1 g 4 times a day, mg consult with Dr. Martino, endoscopies are discussed both upper and lower 2 acute flareup of chron's colitis, With normal sed rate / CRP, Crohn's colitis exacerbation is less likely underlying IBS diarrhea, in the pre-existing H pylori needs to be ruled out: Patient has been on Humira we'll add steroid for now continue hydration and pain management. 3. Acute on chronic Gastritis, start Carafate 4 times a day and Protonix 40 mg IV daily started, H. pylori started for stool analysis 3 advance lung disease with multiple rupture bulla and spontaneous pneumothorax in the past, currently was noted to be very large, rather than the pneumothorax that was seen, unable to do partial lobectomy at [facility] in January 13 secondary to poor pre-existing pulmonary function., Pulmonary referral to [facility] for right-sided lobectomy per recommendation 4 advance COPD: Continue patient on O2 continue Breo, DuoNeb and Pulmicort. 5 chronic depression: Has been on Cymbalta 30 mg a daythis needs to be titrated up, however PCP declined maintaining this at the twice a day dosing, and BuSpar 10 mg 3 times a day. add Remeron 7.5 mg at bedtime for insomnia and nausea and increasing depression 6 hypertension: Remain on Lopressor 50 mg 3 times a day. 7 arrhythmia mostly tachycardia has been on Lopressor. 8 Chronic pain managementuncontrolled fibromyalgia,: Patient has been on hydrocodone associate with gabapentin.no change, Cymbalta 30 mg daily, 9 GI bleed: Hemoccult will be done patient is seen GI this drop in hemoglobin below 8 further testing including colonoscopy and blood transfusion be done. 10. Chronic sleep deprivation impaired sleep architecture, significant fibromyalgia, continue Remeron 7.5 mg that was initiated here, not on any sedatives, avoiding caffeine 12 hours prior to sleep patient's resistant towards this recommendation 10 GI prophylaxis/GERD: Patient remain on Pepcid. 11 DVT prophylaxis: Early mobilization and knee-high EMELIA hose. CODE STATUS: Full code.
[2019-02-03] MEDS: PANTOPRAZOLE 40 MG/10 ML VIAL IVP SCH (16:02)
[2019-02-03] MEDS: methylPREDNISolone SOD SUCCI 40 MG/ML 1 ML VIAL IV SCH ×2 (16:02→23:03)
[2019-02-03] MEDS: MIRTAZAPINE 15 MG TAB PO SCH (18:30)
[2019-02-03] MEDS ORDERED: HYOSCYAMINE SULFATE 0.125 MG TAB PO PRN (18:53)
[2019-02-03 19:43] LABS: Amorphous Sediment,Urine Rare /hpf; Appearance,Urine Cloudy (Clear); Bilirubin,Urine Negative (Negative); Blood,Urine Moderate (Negative); Color,Urine Yellow; Glucose,Urine (UA) Negative (Negative); Ketones,Urine Negative (Negative); Leukocyte Esterase,Urine Negative (Negative); Nitrite,Urine Negative (Negative); PH, Urine 8.5 (5.0-8.0); Protein,Urine Trace (Negative); RBC,Urine >182 /hpf (0-5); Specific Gravity,Urine 1.025 (1.001-1.035); Urobilinogen,Urine <2.0 mg/dL (<2.0)
[2019-02-03] MEDS: LATANOPROST 0.005% OPHTH DROPS 2.5 ML BTL BOTH EYES SCH (21:21)
[2019-02-03] MEDS: MELATONIN 5 MG TABLET PO SCH (21:21)
[2019-02-03] MEDS: ALPRAZolam 0.25 MG TAB PO PRN (21:31)
[2019-02-04] MEDS: HYDROmorphone 1 MG/ML 1 ML SYRINGE IVP PRN ×5 (02:33→19:58)
[2019-02-04] MEDS: HYDROcodone/APAP 10-325MG 1 EACH TAB PO PRN ×5 (04:38→22:29)
[2019-02-04 06:58] LABS: Anisocytosis Moderate; Basophils % (A) 0 %; Eosinophils % (A) 0 %; HGB 7.7 gm/dL (11.4-16.0); Hypochromasia Marked; Lymphocytes # (A) 0.5 k/uL (1.0-4.8); Lymphocytes % (A) 8 %; MCH 33.2 pg (25.0-35.0); MCHC 30.9 g/dL (31.0-37.0); MCV 107.2 fL (80.0-100.0); Macrocytosis Marked; Mean Platelet Volume 8.1; Monocytes # (A) 0.2 k/uL (0-1.0); Monocytes % (A) 3 %; Neutrophils # (A) 5.2 k/uL (1.3-7.7); Neutrophils % (A) 88 %; Platelet Count 260 k/uL (150-450); Poikilocytosis Slight; RBC 2.33 m/uL (3.80-5.40); RDW 21.2 % (11.5-15.5); WBC 5.9 k/uL (3.8-10.6)
[2019-02-04 07:11] LABS: Anion Gap 1 mmol/L; Blood Urea Nitrogen 16 mg/dL (7-17); Calcium 8.2 mg/dL (8.4-10.2); Carbon Dioxide 33 mmol/L (22-30); Chloride 106 mmol/L (98-107); Glucose 131 mg/dL (74-99); Potassium 4.5 mmol/L (3.5-5.1); Sodium 140 mmol/L (137-145)
[2019-02-04] MEDS: FORMOTEROL FUMARATE 20 MCG/2 ML NEBU INHALATION SCH ×2 (07:58→20:43)
[2019-02-04] MEDS: IPRATROPIUM-ALBUTEROL 3 ML NEB INHALATION SCH ×4 (07:58→20:43)
[2019-02-04] MEDS: BUDESONIDE 1 MG/2 ML NEBU INHALATION PRN ×2 (07:58→20:43)
[2019-02-04] MEDS: ENOXAPARIN 40 MG/0.4 ML SYRINGE SQ SCH (08:13)
[2019-02-04] MEDS: SUCRALFATE 1 GM TAB PO SCH ×4 (08:14→20:58)
[2019-02-04] MEDS: methylPREDNISolone SOD SUCCI 40 MG/ML 1 ML VIAL IV SCH (08:14)
[2019-02-04] MEDS: AMOXIC-POT CLAV 875-125MG 1 EACH TAB PO SCH ×2 (08:14→20:57)
[2019-02-04] MEDS: METOPROLOL TARTRATE 50 MG TAB PO SCH ×3 (08:14→20:58)
[2019-02-04] MEDS: GABAPENTIN 300 MG CAP PO SCH ×3 (08:14→20:58)
[2019-02-04] MEDS: PANTOPRAZOLE 40 MG/10 ML VIAL IVP SCH (08:14)
[2019-02-04] MEDS: METHOCARBAMOL 750 MG TAB PO SCH ×3 (08:14→20:58)
[2019-02-04] MEDS: MERCAPTOPURINE 50 MG TAB PO SCH ×2 (08:15→20:58)
[2019-02-04] MEDS: DULoxetine HCL 30 MG CAPSULE.DR PO SCH (08:15)
[2019-02-04] MEDS: MAGNESIUM OXIDE 400 MG TAB PO SCH (08:15)
[2019-02-04] MEDS: busPIRone HCl 10 MG TAB PO SCH ×3 (08:15→20:58)
[2019-02-04] MEDS: SODIUM CHLORIDE 0.9% 1,000 ML IV SCH ×2 (08:15→20:49)
[2019-02-04] MEDS: MULTIVITAMINS, THERA 1 EACH TAB PO SCH (08:15)
[2019-02-04] MEDS: DIPHENOX-ATROP 2.5-0.025 MG 1 EACH TAB PO SCH ×3 (12:30→20:58)
--- NOTE | 2019-02-04 13:39 | P.CONS ---
History of Present Illness - Reason for Consult Consult date: 02/03/19 Exacerbation of Crohn's - History of Present Illness 58-year-old female one of Dr. bernard's patient with past medical history of advanced lung disease post bilateral spontaneous pneumothorax of both side will be going for wrap partial lobe resection and [facility] for large bulla in the right side with scheduled for January 13. Patient left the hospital on November 29 when was transferred to [facility] with the recurrent spontaneous pneumothorax. Patient is known to have history of Crohn disease post subtotal colectomy with no flareup lately has been Humira which has been managed by Dr. Verma regular basis.and is currently off her opium since insurance company is not covering for it. Patient presented to d ER complaining of 3-5 days of worsening abdominal pain with nausea insomnia, insomnia, increasing shortness of breath, cough, increasing anxiety, pain is not controlled, patient is on [place] 10 325 every 4 hours when necessary, also decreased her Cymbalta, and is being weaned off her BuSpar from her PCP. Patient does not follow with any pain physician, patient denies any increase use her pain medication. in the emergency room, troponins are negative, EKG shows normal sinus rhythm heart rate of 126, chest x-ray shows no pneumothorax and chest CT shows large right-sided pneumothorax, vs massive right lung bullae noted bilateral upper lobe bronchogenic masses, greater on the leftconsults were made with Dr. Meza pulmonary, patient was seen in the past at [facility], for bullectomy, however with severe pre-existing pulmonary disease, bullectomy cannot be perfo rmed Review of Systems CONSTITUTIONAL: Denies any fevers, chills, weight change or fatigue. CARDIOVASCULAR: Denies any chest pain, palpitations high or low blood pressures RESPIRATORY: Denies any shortness of breath, hemoptysis or cough. GENITOURINARY: No dysuria or hematuria. MUSCULOSKELETAL: No weakness reported. SKIN: Denies any new rashes or lesions, jaundice or pallor. PSYCHIATRIC: Denies any depression or anxiety. NEUROLOGY: Denies headache, denies any new focal deficits. EARS/NOSE/THROAT: No recent hearing change, congestion, nasal discharge or sore throat. EYES: No pain in eyes, discharge or change in vision. GASTROINTESTINAL: As per HPI. Past Medical History Past Medical History: COPD, Fibromyalgia, GERD/Reflux, GI Bleed, Osteoarthritis (OA), Pneumonia, Syncope Additional Past Medical History / Comment(s): Crohn's colitis, bowel obstructions, multiple bowel surgeries including total colectomy/ileostomy, severe COPD, chronic respiratory failure, home O2 3L/NC, bullous emphysema, R lung bleb-to have R lung surgery on 01/15/19 at [facility], R pneumothorax x3, L pneumothorax x1 and had bilateral pneumothorax 09/2018-acute respiratory failure/vented/cardiac arrest, tachycardia, hiatal hernia, lower GI bleeds, arthritis in multiple joints, osteoporosis, chronic pain, seasonal allergies, bilateral glaucoma and has had bilateral eye surgery for retinal tears/holes. History of Any Multi-Drug Resistant Organisms: None Reported Past Surgical History: Breast Surgery, Cholecystectomy, Hernia Repair, Hy sterectomy, Orthopedic Surgery Additional Past Surgical History / Comment(s): Multiple bowel surgeries including total colectomy/ileostomy, ileostomy moved/repaired, R salping oophorectomy due to ectopic , total hysterectomy, leep procedure, laparoscopy for endometriosis, L breast lumpectomy-benign, r breast core bx- benign, EGD/colonoscopies, bilateral thoravents, arthroscopic knee surgery on the right due to ACL and Meniscal tear, trach and peg tube-since removed. Past Anesthesia/Blood Transfusion Reactions: No Reported Reaction Past Psychological History: Anxiety, Depression Additional Psychological History / Comment(s): Pt is staying with her sister who has a one level home. Her spouse is staying between their home to care for the dogs and pt's sister's house. Pt uses 02 3l n/c atc, has nebulizer, walker. She is receiving PT at home thru [facility]. Smoking Status: Former smoker Past Alcohol Use History: None Reported Additional Past Alcohol Use History / Comment(s): Patient used to smoke 1 pack per day since she was 17 and smoked for 30 years and quit in January 2017. Past Drug Use History: None Reported - Past Family History Mother Family Medical History: Cancer, COPD, Hypertension Additional Family Medical History / Comment(s): Mother at age 83 from COPD and had osteoarthritis and skin cancer. Father Family Medical History: Cancer, CVA/TIA, Dementia, Diabetes Mellitus Additional Family Medical History / Comment(s): Father is 92 yrs old. He has had several TIAs and a CVA Brother(s) Family Medical History: Cancer Additional Family Medical History / Comment(s): Patient had 5 brothers and one of them from melanoma at age 41. Sister(s) History Unknown: Yes Family Medical History: No Reported History Additional Family Medical History / Comment(s): Patient has one sister. Patient has no children Medications and Allergies Home Medications Medication Instructions Recorded Confirmed Type Latanoprost Ophth [Xalatan 0.005%] 1 drop BOTH EYES HS 05/21/17 02/01/19 History Cyanocobalamin [Vitamin B-12 1,000 mcg SQ Q30D 07/24/18 02/01/19 History Injection] Dicyclomine [Bentyl] 10 mg PO TID PRN 07/24/18 02/01/19 History Budesonide 1 mg INHALATION RT-BID PRN 09/27/18 02/01/19 History Gabapentin [Neurontin] 300 mg PO TID 09/27/18 02/01/19 History HYDROcodone/APAP 10-325MG [[place] 1 tab PO Q4H PRN 09/27/18 02/01/19 History 10-325] Opium Tincture 10mg/1ml 20 mg PO BID PRN 09/27/18 02/01/19 History Albuterol Nebulized [Ventolin 2.5 mg INHALATION RT-QID PRN #120 11/10/18 02/01/19 Rx Nebulized] nebu Metoprolol Tartrate [Lopressor] 50 mg PO TID #90 tab 11/10/18 02/01/19 Rx Magnesium Oxide [Mag-Ox] 400 mg PO DAILY #30 tablet 11/11/18 02/01/19 Rx Aclidinium [place] [[place] 1 puff INHALATION RT-BID 11/29/18 02/01/19 History Pressair] Cholecalciferol (Vitamin D3) 2,000 unit PO DAILY 11/29/18 02/01/19 History [Vitamin D3] Fluticasone/Vilanterol [Breo 1 puff INHALATION RT-DAILY 11/29/18 02/01/19 History Ellipta 200-25 Mcg INH] Guaifen/Phenyleph/Acetaminophn 10 ml PO Q6H PRN 11/29/18 02/01/19 History [Mucinex Sinus-Max Severe Liq] Mercaptopurine [Purinethol] 50 mg PO BID 11/29/18 02/01/19 History Multivitamins, Thera [Multivitamin 1 tab PO DAILY 11/29/18 02/01/19 History (formulary)] busPIRone HCl [Buspar] 10 mg PO TID 11/29/18 02/01/19 History Acetaminophen Tab [Tylenol] 650 mg PO Q4HR PRN tab 11/30/18 02/01/19 Rx ALPRAZolam [Xanax] 0.25 mg PO DAILY PRN 12/28/18 02/01/19 History Adalimumab [Humira(Cf) Pen] 40 mg SQ Q7D 12/28/18 02/01/19 History DULoxetine HCL [Cymbalta] 30 mg PO DAILY 12/28/18 02/01/19 History Melatonin 5 mg PO HS 12/28/18 02/01/19 History Methocarbamol [Robaxin] 750 mg PO TID 12/28/18 02/01/19 History Sucralfate [Carafate] 1 gm PO TID #900 ml 12/31/18 02/01/19 Rx Allergies Allergy/AdvReac Type Severity Reaction Status Date / Time Iodinated Contrast- Oral and Allergy Anaphylaxis Verified 02/01/19 20:01 IV Dye pregabalin [From Lyrica] Allergy Unknown Verified 02/01/19 20:01 rofecoxib [From Vioxx] Allergy Unknown Verified 02/01/19 20:01 Sulfa (Sulfonamide Allergy Rash/Hives Verified 02/01/19 20:01 Antibiotics) aspirin AdvReac Internal Verified 02/01/19 20:01 Bleeding timolol [Timolol] AdvReac Nausea & Verified 02/01/19 20:01 Vomiting Physical Exam Vitals: Vital Signs Temp Pulse Pulse Resp BP Pulse Ox 02/03/19 13:22 96 02/03/19 13:05 92 02/03/19 12:00 98.3 F 100 20 110/72 98 02/03/19 09:06 100 02/03/19 08:53 108 H 02/03/19 08:52 108 H 02/03/19 08:41 108 H 02/03/19 08:00 109 H 22 116/66 96 02/03/19 03:58 96 20 112/65 94 L 02/03/19 00:07 102 H 20 141/79 96 02/02/19 20:40 97.8 F 105 H 20 135/79 98 02/02/19 16:38 110 H 02/02/19 16:28 110 H 02/02/19 16:00 98.4 F 129 H 22 121/69 94 L Intake and Output 02/02/19 02/03/19 02/03/19 22:59 06:59 14:59 Intake Total 150 Balance 150 Intake: Oral 150 Other: Voiding Method Bedside Commode Bedside Commode # Voids 2 1 # Bowel Movements 2 Weight 45.3 kg On physical examination, patient appears very pleasant, stated age in no appa rent distress. HEAD: Normocephalic, atraumatic. EYES: No scleral icterus. No conjunctival injection. MOUTH: No lesions, tongue midline. NECK: Trachea midline, no gross abnormalities. CHEST: Clear to auscultation with no wheezing or rhonchi appreciated. HEART: Regular, no abnormal solids, murmurs or friction rubs. ABDOMEN: Soft. Bowel sounds are positive. No organomegaly. No guarding or rig idity. EXTREMITIES: No pedal edema. SKIN: No rashes, no jaundice. NEUROLOGIC: Alert and oriented. No focal deficits. Results CBC & Chem 7: 02/04/19 06:23 02/04/19 06:23 Labs: Abnormal Lab Results - Last 24 Hours (Table) 02/03/19 02/03/19 Range/Units 06:20 06:20 RBC 2.31 L (3.80-5.40) m/uL Hgb 8.2 L D (11.4-16.0) gm/dL Hct 24.1 L (34.0-46.0) % MCV 104.1 H (80.0-100.0) fL MCH 35.7 H (25.0-35.0) pg RDW 21.5 H (11.5-15.5) % Lymphocytes # 0.7 L (1.0-4.8) k/uL Carbon Dioxide 32 H (22-30) mmol/L Glucose 113 H (74-99) mg/dL Lipase 18 L (23-300) U/L Assessment and Plan Assessment: Abdominal symptoms could be related to exacerbation of ileitis. Plan: I reviewed your current management. The patient has received her homeopath that those today. We will continue IV steroids and symptomatic treatment. Further plans based on her course. Would discuss with you and follow with you with interest.
--- NOTE | 2019-02-04 15:16 | P.PN ---
Subjective Progress Note Date: 02/04/19 On 02/04/2019 I'm seeing this patient for a follow-up. The patient is still short of breath. The patient known to have advanced COPD with extensive bullous changes and the patient was referred for embolectomy at [facility]. The patient was found an FEV1 of 19-21%. The surgery was canceled. Based on this, the patient was referred to the lung transplant team and she will be evaluated in this regard. Meanwhile I'll review the CAT scan of the chest and the most recent CAT scan showed extensive bullous changes bilaterally and there is a new onset small loculated right apical pneumothorax which probably added to her more shortness of breath. We decided not to do any intervention because of her extensive disease. I do not see any role for chest tube insertion at this point in time. I think this will complicate the process even further. Meanwhile, she is on IV Solu-Medrol. She is on bronchodilators. Her inflammatory bowel disease currently inactive and stable. No nausea. No vomiting. No abdominal pain. She is looking more cushingoid. Objective - Vital Signs Vital signs: Vital Signs Temp 98.1 F 02/04/19 11:13 Pulse 109 H 02/04/19 12:27 Resp 18 02/04/19 11:13 BP 124/72 02/04/19 11:13 Pulse Ox 98 02/04/19 11:13 Intake & Output 02/03/19 02/04/19 02/04/19 18:59 06:59 18:59 Intake Total 437 865 8274 Balance 211 020 7929 Weight 46.2 kg Intake: Intake, IV Titration 800 Amount Sodium Chloride 0.9% 1, 800 000 ml @ 100 mls/hr IV . Q10H [facility] Rx#:[id number] Oral 240 120 560 Other: Voiding Method Bedside Commode # Voids 2 # Bowel Movements 2 - Exam - Constitutional General appearance: Present: cooperative, no acute distress - EENT Eyes: Present: anicteric sclerae, EOMI, PERRLA, dentition normal, normal appearance ENT: Present: hearing grossly normal, normal oropharynx - Neck Neck: Present: normal ROM - Respiratory Respiratory: bilateral: CTA, diminished, negative: dullness, rales - Cardiovascular Rhythm: regular Heart sounds: normal: S1, S2 Abnormal Heart Sounds: Absent: systolic murmur, diastolic murmur, rub, S3 Gallop, S4 Gallop, click, other - Gastrointestinal General gastrointestinal: Present: organomegaly, soft, tenderness (Epigastric and lower abdominal) - Integumentary Integumentary: Present: decreased turgor, normal - Neurologic Neurologic: Present: CNII-XII intact - Musculoskeletal Musculoskeletal: Present: gait normal, strength equal bilaterally - Labs CBC & Chem 7: 02/04/19 06:23 02/04/19 06:23 Labs: Abnormal Lab Results - Last 24 Hours (Table) 02/03/19 02/04/19 02/04/19 Range/Units 19:15 06:23 06:23 RBC 2.33 L (3.80-5.40) m/uL Hgb 7.7 L (11.4-16.0) gm/dL Hct 25.0 L (34.0-46.0) % MCV 107.2 H (80.0-100.0) fL MCHC 30.9 L (31.0-37.0) g/dL RDW 21.2 H (11.5-15.5) % Lymphocytes # 0.5 L (1.0-4.8) k/uL Carbon Dioxide 33 H (22-30) mmol/L Glucose 131 H (74-99) mg/dL Calcium 8.2 L (8.4-10.2) mg/dL Urine Appearance Cloudy H (Clear) Urine pH 8.5 H (5.0-8.0) Urine Protein Trace H (Negative) Urine Blood Moderate H (Negative) Urine RBC >182 H (0-5) /hpf Urine WBC 8 H (0-5) /hpf Amorphous Sediment Rare H (None) /hpf Assessment and Plan Plan: 1 advanced, end-stage COPD with extensive bullous changes more so on the right. 2 chronic hypoxic respiratory failure 3 chronic shortness of breath 4 loculated right apical pneumothorax seen on the most recent CAT scan of the chest, not candidate for any intervention including chest tube insertion 5 chronic disease with recent hospitalization for Crohn's flareup. She has undergone previous bowel surgery and ileostomy is functional is in place for now 6 chronic depression 7 hypertension 8 fibromyalgia and chronic pain 9 impaired performance and functional status secondary to above-mentioned comorbidities 10 anemia with a hemoglobin of 7.7, chronic macrocytic anemia probably due to her chronic inflammatory bowel disease. Plan Discontinue the IV Solu-Medrol and put the patient prednisone burst taper. Cont inue bronchodilators. Monitor the pulmonary status. The patient is on a candidate for bullectomy. She is currently seeking a lung transplant evaluation and I've made appropriate referrals for this patient to be sent [facility] in the future regarding this issue. Prognosis in general is very poor because of her advanced lung disease.
[2019-02-04 15:17] VITALS: BMI 18.6
[2019-02-04] MEDS: predniSONE 10 MG TAB PO SCH (15:23)
[2019-02-04] MEDS: MIRTAZAPINE 15 MG TAB PO SCH (18:07)
[2019-02-04] MEDS: LATANOPROST 0.005% OPHTH DROPS 2.5 ML BTL BOTH EYES SCH (20:57)
[2019-02-04] MEDS: MELATONIN 5 MG TABLET PO SCH (20:57)
[2019-02-04 22:07] VITALS: RESP 18
--- NOTE | 2019-02-04 22:56 | P.PN ---
Subjective Progress Note Date: 02/04/19 Principal diagnosis: Abdominal pain, diarrhea Patient seen lying in bed. He still reporting some abdominal pain and loose stool from her ostomy. In addition she continues to report uncontrolled reflux. She has been tolerating her diet. Objective - Vital Signs Vital signs: Vital Signs Temp 98.0 F 02/04/19 20:00 Pulse 100 02/04/19 21:05 Resp 18 02/04/19 20:00 BP 122/82 02/04/19 20:00 Pulse Ox 99 02/04/19 20:00 Intake & Output 02/04/19 02/04/19 02/05/19 06:59 18:59 06:59 Intake Total 120 1560 400 Balance 120 1560 400 Weight 46.2 kg 46.2 kg Intake: IV 400 0.9 400 Intake, IV Titration 800 Amount Sodium Chloride 0.9% 1, 800 000 ml @ 50 mls/hr IV . Q20H [facility] Rx#:[id number] Oral 120 760 Other: Voiding Method Bedside Commode - Exam On physical examination, patient appears comfortable in no apparent distress. HEAD: Normocephalic, atraumatic. EYES: No scleral icterus. No conjunctival injection. MOUTH: No lesions, tongue midline. NECK: Trachea midline, no gross abnormalities. CHEST: Decreased air entry in all lung hunter. HEART: S1-S2 appreciated. ABDOMEN: Soft, ostomy with nonbloody output. Bowel sounds are positive. No organomegaly. No guarding or rigidity. EXTREMITIES: No pedal edema. SKIN: No rashes, no jaundice. NEUROLOGIC: Alert and oriented x3. No focal deficits. - Labs CBC & Chem 7: 02/04/19 06:23 02/04/19 06:23 Labs: Abnormal Lab Results - Last 24 Hours (Table) 02/04/19 02/04/19 Range/Units 06:23 06:23 RBC 2.33 L (3.80-5.40) m/uL Hgb 7.7 L (11.4-16.0) gm/dL Hct 25.0 L (34.0-46.0) % MCV 107.2 H (80.0-100.0) fL MCHC 30.9 L (31.0-37.0) g/dL RDW 21.2 H (11.5-15.5) % Lymphocytes # 0.5 L (1.0-4.8) k/uL Carbon Dioxide 33 H (22-30) mmol/L Glucose 131 H (74-99) mg/dL Calcium 8.2 L (8.4-10.2) mg/dL Assessment and Plan (1) Crohn's ileitis Narrative/Plan: Patient with a known history of Crohn's disease status post subtotal colectomy and ostomy formation in the past. The patient has been on treatment with 6- mercaptopurine for 15 years and Humira therapy as well. She did recently stop treatment with her biologic due to the possibility of surgery but this was recently restarted. She comes in with complaints of increased output in her os mckenzie after stopping tincture of opium due to insurance reasons and restarting Lomotil therapy with complaints of abdominal pain and increased output from her ostomy. Inflammatory markers including ESR which was 15 and CRP which were less than 5 were normal. The patient reports her last colonoscopy was approximately 3 years ago and reports from that were significant for gastritis and stricture at the ostomy site which was able to be passed with biopsies of the stomach and the terminal ileum all negative. Current Visit: No Status: Acute Code(s): K50.00 - CROHN'S DISEASE OF SMALL INTESTINE WITHOUT COMPLICATIONS SNOMED Code(s): 79001453 (2) Abdominal pain Current Visit: No Status: Acute Code(s): R10.9 - UNSPECIFIED ABDOMINAL PAIN SNOMED Code(s): 91772098 (3) Diarrhea Current Visit: No Status: Acute Code(s): R19.7 - DIARRHEA, UNSPECIFIED SNOMED Code(s): 99811324 Plan: Supportive care Okay for diet Continue 6-mercaptopurine Continue Humira therapy Continue treatment with Carafate Will increase Protonix to twice daily Continue anti-diarrheal and anti-spasmodic medications for symptomatic relief Patient will need follow-up with Dr. Bonnie Verma for which she has an appointment on 02/14/2019 at which time she will likely need to be scheduled for repeat endoscopy Thank you for allowing us to participate in the care of the patient we will continue to follow
[2019-02-04] MEDS: ALPRAZolam 0.25 MG TAB PO PRN (23:38)
[2019-02-05] MEDS: HYDROmorphone 1 MG/ML 1 ML SYRINGE IVP PRN ×3 (00:01→11:09)
[2019-02-05] MEDS: HYDROcodone/APAP 10-325MG 1 EACH TAB PO PRN ×2 (04:12→09:17)
[2019-02-05 05:29] VITALS: BP 147/87; TEMP 97
[2019-02-05] MEDS: BUDESONIDE 1 MG/2 ML NEBU INHALATION PRN (06:45)
[2019-02-05] MEDS: FORMOTEROL FUMARATE 20 MCG/2 ML NEBU INHALATION SCH (06:45)
[2019-02-05] MEDS: IPRATROPIUM-ALBUTEROL 3 ML NEB INHALATION SCH ×2 (06:45→11:28)
[2019-02-05 07:11] VITALS: PULSE 108
[2019-02-05] MEDS ORDERED: PANTOPRAZOLE 40 MG TABLET PO SCH (07:30)
[2019-02-05] MEDS: SUCRALFATE 1 GM TAB PO SCH (08:55)
[2019-02-05] MEDS: AMOXIC-POT CLAV 875-125MG 1 EACH TAB PO SCH (08:56)
[2019-02-05] MEDS: busPIRone HCl 10 MG TAB PO SCH (08:56)
[2019-02-05] MEDS: DIPHENOX-ATROP 2.5-0.025 MG 1 EACH TAB PO SCH (08:56)
[2019-02-05] MEDS: ENOXAPARIN 40 MG/0.4 ML SYRINGE SQ SCH (08:57)
[2019-02-05] MEDS: METHOCARBAMOL 750 MG TAB PO SCH (09:00)
[2019-02-05] MEDS: METOPROLOL TARTRATE 50 MG TAB PO SCH (09:01)
[2019-02-05] MEDS: predniSONE 10 MG TAB PO SCH (09:02)
[2019-02-05] MEDS: DULoxetine HCL 30 MG CAPSULE.DR PO SCH (09:18)
[2019-02-05] MEDS: GABAPENTIN 300 MG CAP PO SCH (09:18)
[2019-02-05] MEDS: MERCAPTOPURINE 50 MG TAB PO SCH (09:20)
--- NOTE | 2019-02-05 09:26 | P.PN ---
Subjective Progress Note Date: 02/04/19 58-year-old female one of Dr. bernard's patient with past medical history of advanced lung disease post bilateral spontaneous pneumothorax of both side will be going for wrap partial lobe resection and [facility] for large bulla in the right side with scheduled for January 13. Patient left the hospital on November 29 when was transferred to [facility] with the recurrent spontaneous pneumothorax. Patient is known to have history of Crohn disease post subtotal colectomy with no flareup lately has been Humira which has been managed by Dr. Verma regular basis.and is currently off her opium since insurance company is not covering for it. Patient presented to d ER complaining of 3-5 days of worsening abdominal pain with nausea insomnia, insomnia, increasing shortness of breath, cough, increasing anxiety, pain is not controlled, patient is on [place] 10 325 every 4 hours when necessary, also decreased her Cymbalta, and is being weaned off her BuSpar from her PCP. Patient does not follow with any pain physician, patient denies any increase use her pain medication. in the emergency room, troponins are negative, EKG shows normal sinus rhythm heart rate of 126, chest x-ray shows no pneumothorax and chest CT shows large right-sided pneumothorax, vs massive right lung bullae noted bilateral upper lobe bronchogenic masses, greater on the leftconsults were made with Dr. Meza, pulmonary, patient was seen in the past at [facility], for bullectomy, however with severe pre-existing pulmonary disease, bullectomy cannot be performed 02/03: Patient continues to have lower abdominal pain and epigastric pain, no signs of melanoma hematochezia, labs are back that shows normal sed rate and CRP, still with frequent liquid stools, it is more less liquidy as patient has been taking more toward it, CAT scan of the abdomen and pelvis shows no ne abnormal pathology in the GI tract however it is a critical report based on the large hydropneumothorax that was suspected, exam shows gastritis, Pepcid was discontinued, Protonix was initiated along with Carafate, H pylori test to be done, based on patient's report, she is due for an EGD the last one was done 6 years ago, she is also due for a lower GI colonoscopy for surveillance, by Dr. Verma, Dr. Bosher has recommended a referral to lung transplant [facility] post discharge, no urinalysis was done from the emergency room, we'll going to obtain urine evaluation secondary to persistently lower abdominal pain. Nausea still persistent, no vomiting, patient has improvement on sleep and fibromyalgia, patient slept 4 hours with Remeron initiated last night patient still drinks a lot of Pepsi products, has chronic sleep deprived lesion in the past 02/04: Patient states she has had some abdominal spasms but is quiet right now. This morning for breakfast, she had to stop and eat after 15 minutes and then couldn't finish her breakfast. She is noted to have blood in her urine and states that she has followed with Dr. Klein and there was no cause identified for this in the past. She does have history of kidney stones and underwent lithotripsy in the past. She states she did not sleep last night due to abdominal pain. She is requesting Lomotil which will be added on scheduled 4 times daily. She states she is emptying her bag 7-8 times and normally it is 3- 4 times. IV fluids will be decreased to 50 mL per hour. Patient knows to avoid all caffeine. Patient is followed by Dr. Ewing in and IV Solu-Medrol changed to prednisone taper. Patient is to follow-up at [facility] as arranged by Dr. Mistry. Patient has been seen by Dr. Almanzar with recommendations for continued supportive care, 6-mercaptopurine, Humira therapy, Carafate. He increase Protonix to twice daily. Continue antidiarrheal and antispasmodic medications and follow-up with Dr. Bonnie Verma for which she has an appointment on 02/14/2019 at which time she will likely need to be scheduled for repeat endoscopy. Plan to monitor patient overnight and possible discharge by tomorrow. Review Of Systems: Constitutional: No fever, no chills, no night sweats. No weight change. Reports weakness, reports fatigue. No daytime sleepiness. EENT: No headache. No blurred vision or double vision, no loss of vision. No loss of Hearing, no ringing in the ears, no dizziness. No nasal drainage or congestion. No epistaxis. No sore throat. Lungs: Reports shortness of breath, reports cough, no sputum production. Reports wheezing. Cardiovascular: No chest pain, no lower extremity edema. No palpitations. No p aroxysmal nocturnal dyspnea. No orthopnea. No lightheadedness or dizziness. No syncopal episodes. Abdominal: Reports abdominal pain. No nausea, vomiting. Reports diarrhea. No constipation. No bloody or tarry stools. Genitourinary: No dysuria, increased frequency, urgency. No urinary retention. Musculoskeletal: No myalgias. No muscle weakness, no gait dysfunction, no frequent falls. No back pain. No neck pain. Integumentary: No wounds, no lesions. No rash or pruritus. No unusual brui sing. No change in hair or nails. Neurologic: No aphasia. No facial droop. No change in mentation. No head injury. No headache. No paralysis. No paresthesia. Psychiatric: No depression. No anxiety. No mood swings. Endocrine: No abnormal blood sugars. No weight change. No excessive sweating or thirst. No cold intolerance. Objective - Vital Signs Vital signs: Vital Signs Temp 98.1 F 02/04/19 11:13 Pulse 89 02/04/19 11:13 Resp 18 02/04/19 11:13 BP 124/72 02/04/19 11:13 Pulse Ox 98 02/04/19 11:13 Intake & Output 02/03/19 02/04/19 02/04/19 18:59 06:59 18:59 Intake Total 316 055 2455 Balance 149 448 4035 Weight 46.2 kg Intake: Intake, IV Titration 800 Amount Sodium Chloride 0.9% 1, 800 000 ml @ 100 mls/hr IV . Q10H [facility] Rx#:[id number] Oral 240 120 200 Other: Voiding Method Bedside Commode # Voids 2 # Bowel Movements 2 - Exam General appearance: Present: cooperative, no acute distress while resting in bed - EENT Eyes: Present: anicteric sclerae, EOMI, PERRLA, dentition normal, normal appearance ENT: Present: hearing grossly normal, normal oropharynx - Neck Neck: Present: normal ROM - Respiratory Respiratory: bilateral: CTA, diminished, negative: dullness, rales - Cardiovascular Rhythm: regular Heart sounds: normal: S1, S2 Abnormal Heart Sounds: Absent: systolic murmur, diastolic murmur, rub, S3 Gallop, S4 Gallop, click, other - Gastrointestinal General gastrointestinal: Present: organomegaly, soft, tenderness (Epigastric and lower abdominal) - Integumentary Integumentary: Present: decreased turgor, normal - Neurologic Neurologic: Present: CNII-XII intact - Musculoskeletal Musculoskeletal: Present: gait normal, strength equal bilaterally - Labs CBC & Chem 7: 02/04/19 06:23 02/04/19 06:23 Labs: Abnormal Lab Results - Last 24 Hours (Table) 02/03/19 02/03/19 02/04/19 Range/Units 06:20 19:15 06:23 RBC 2.31 L 2.33 L (3.80-5.40) m/uL Hgb 8.2 L D 7.7 L (11.4-16.0) gm/dL Hct 24.1 L 25.0 L (34.0-46.0) % MCV 104.1 H 107.2 H (80.0-100.0) fL MCH 35.7 H (25.0-35.0) pg MCHC 30.9 L (31.0-37.0) g/dL RDW 21.5 H 21.2 H (11.5-15.5) % Lymphocytes # 0.7 L 0.5 L (1.0-4.8) k/uL Carbon Dioxide (22-30) mmol/L Glucose (74-99) mg/dL Calcium (8.4-10.2) mg/dL Urine Appearance Cloudy H (Clear) Urine pH 8.5 H (5.0-8.0) Urine Protein Trace H (Negative) Urine Blood Moderate H (Negative) Urine RBC >182 H (0-5) /hpf Urine WBC 8 H (0-5) /hpf Amorphous Sediment Rare H (None) /hpf 02/04/19 Range/Units 06:23 RBC (3.80-5.40) m/uL Hgb (11.4-16.0) gm/dL Hct (34.0-46.0) % MCV (80.0-100.0) fL MCH (25.0-35.0) pg MCHC (31.0-37.0) g/dL RDW (11.5-15.5) % Lymphocytes # (1.0-4.8) k/uL Carbon Dioxide 33 H (22-30) mmol/L Glucose 131 H (74-99) mg/dL Calcium 8.2 L (8.4-10.2) mg/dL Urine Appearance (Clear) Urine pH (5.0-8.0) Urine Protein (Negative) Urine Blood (Negative) Urine RBC (0-5) /hpf Urine WBC (0-5) /hpf Amorphous Sediment (None) /hpf Assessment and Plan Plan: 1 acute abdominal pain most likely secondary to gastritis and Crohn's ileitis. Consult with Dr. Almanzar with recommendations for continued supportive care, 6- mercaptopurine, Humira therapy, Carafate. He increase Protonix to twice daily. Continue antidiarrheal and antispasmodic medications and follow-up with Dr. Bonnie Verma for which she has an appointment on 02/14/2019 at which time she will likely need to be scheduled for repeat endoscopy. 2 acute flareup of chron's colitis, With normal sed rate / CRP, Crohn's colitis exacerbation is less likely underlying IBS diarrhea, in the pre-existing H pylori needs to be ruled out: Patient has been on Humira we'll add steroid for now continue hydration and pain management. Transition to prednisone. 3. Acute on chronic Gastritis, start Carafate 4 times a day and Protonix 40 mg twice daily, H. pylori started for stool analysis 3 advance lung disease with multiple rupture bulla and spontaneous pneumothorax in the past, currently was noted to be very large, rather than the pneumothorax that was seen, unable to do partial lobectomy at [facility] in January 13 secondary to poor pre-existing pulmonary function., Pulmonary referral to [facility] for right-sided lobectomy per recommendation. Consult with Dr. Fidelia noland. Solu-Medrol transitioned to oral prednisone 4 advance COPD: Continue patient on O2 continue Breo, DuoNeb and Pulmicort. 5. Recurrent depression: Has been on Cymbalta 30 mg a daythis needs to be titrated up, however PCP declined maintaining this at the twice a day dosing, and BuSpar 10 mg 3 times a day. add Remeron 7.5 mg at bedtime for insomnia and nausea and increasing depression 6 hypertension: Remain on Lopressor 50 mg 3 times a day. 7 arrhythmia mostly tachycardia has been on Lopressor. 8 Chronic pain management uncontrolled fibromyalgia,: Patient has been on hydrocodone associate with gabapentin.no change, Cymbalta 30 mg daily, 9 GI bleed: Hemoccult will be done patient is seen GI this drop in hemoglobin below 8 further testing including colonoscopy and blood transfusion be done. 10. Chronic sleep deprivation impaired sleep architecture, significant fibromyalgia, continue Remeron 7.5 mg that was initiated here, not on any se datives, avoiding caffeine 12 hours prior to sleep patient's resistant towards this recommendation 10 GI prophylaxis/GERD: Patient remain on Pepcid. 11 DVT prophylaxis: Early mobilization and knee-high EMELIA hose. 12. Chronic hypoxic respiratory failure on home O2 at 3 L nasal cannula CODE STATUS: Full code. Discharge plan: Most likely home with [facility] care. Patient to have informational meeting with [facility]. Impression and plan of care have been directed as dictated by the signing physician. Gaby Rothman nurse practitioner acting as scribe for signing physician.
[2019-02-05] MEDS: SODIUM CHLORIDE 0.9% 1,000 ML IV SCH (09:27)
[2019-02-05 10:57] LABS: Anisocytosis Moderate; Basophils % (A) 0 %; Eosinophils % (A) 0 %; HCT 24.3 % (34.0-46.0); HGB 7.6 gm/dL (11.4-16.0); Hypochromasia Marked; Lymphocytes # (A) 0.6 k/uL (1.0-4.8); Lymphocytes % (A) 14 %; MCH 33.2 pg (25.0-35.0); MCHC 31.4 g/dL (31.0-37.0); MCV 105.5 fL (80.0-100.0); Macrocytosis Marked; Mean Platelet Volume 7.8; Monocytes # (A) 0.2 k/uL (0-1.0); Monocytes % (A) 3 %; Neutrophils # (A) 3.9 k/uL (1.3-7.7); Neutrophils % (A) 82 %; Platelet Count 224 k/uL (150-450); Poikilocytosis Slight; WBC 4.7 k/uL (3.8-10.6)
[2019-02-05 11:10] LABS: Anion Gap 3 mmol/L; Blood Urea Nitrogen 18 mg/dL (7-17); Calcium 8.4 mg/dL (8.4-10.2); Carbon Dioxide 31 mmol/L (22-30); Chloride 107 mmol/L (98-107); Glucose 145 mg/dL (74-99); Potassium 4.4 mmol/L (3.5-5.1); Sodium 141 mmol/L (137-145)
--- NOTE | 2019-02-05 12:06 | P.PN ---
Subjective Progress Note Date: 02/05/19 Principal diagnosis: Abdominal pain diarrhea Feels slightly better. Tolerating diet. Afebrile. Objective - Vital Signs Vital signs: Vital Signs Temp 97.0 F L 02/05/19 05:28 Pulse 108 H 02/05/19 07:00 Resp 18 02/05/19 05:28 BP 147/87 02/05/19 05:28 Pulse Ox 97 02/05/19 05:28 Intake & Output 02/04/19 02/05/19 02/05/19 18:59 06:59 18:59 Intake Total 1560 400 240 Balance 1560 400 240 Weight 46.2 kg Intake: IV 400 0.9 400 Intake, IV Titration 800 Amount Sodium Chloride 0.9% 1, 800 000 ml @ 50 mls/hr IV . Q20H [facility] Rx#:[id number] Oral 760 240 Other: Voiding Method Bedside Commode # Voids 2 - Exam General appearance: The patient is alert, oriented, in no acute distress. HET: Head is normocephalic and atraumatic. Pupils are equal and reactive. Oropharynx is clear without lesions. Neck: Supple without lymphadenopathy. Trachea midline. Heart: S1 S2. Regular rate and rhythm. Lungs: No crackles or wheezes are heard. Abdomen: Soft, nontender, nondistended with bowel sounds. Ostomy with nonbloody output. No peritoneal signs. No palpable organomegaly or masses. Extremities: Normal skin color and turgor. No cyanosis, rash, ulceration, clubbing, or edema. Radial and pedal pulses are 2/4 bilaterally. Neurological: No focal deficits. Strength and sensation are grossly intact. - Labs CBC & Chem 7: 02/05/19 10:16 02/05/19 10:16 Labs: Abnormal Lab Results - Last 24 Hours (Table) 02/05/19 02/05/19 Range/Units 10:16 10:16 RBC 2.30 L (3.80-5.40) m/uL Hgb 7.6 L (11.4-16.0) gm/dL Hct 24.3 L (34.0-46.0) % MCV 105.5 H (80.0-100.0) fL RDW 21.0 H (11.5-15.5) % Carbon Dioxide 31 H (22-30) mmol/L BUN 18 H (7-17) mg/dL Glucose 145 H (74-99) mg/dL Assessment and Plan (1) Crohn's ileitis Current Visit: No Status: Acute Code(s): K50.00 - CROHN'S DISEASE OF SMALL INTESTINE WITHOUT COMPLICATIONS SNOMED Code(s): 02569844 (2) Abdominal pain Current Visit: No Status: Acute Code(s): R10.9 - UNSPECIFIED ABDOMINAL PAIN SNOMED Code(s): 42081747 (3) Diarrhea Current Visit: No Status: Acute Code(s): R19.7 - DIARRHEA, UNSPECIFIED SNOMED Code(s): 75723775 Plan: 1. Agreeable for discharge. Continue with home medications and Humira therapy. Protonix 40 mg twice daily. Return to office 02/14/[address] Verma for reevaluation. Assessment and plan a care discussed with Dr. Almanzar
--- NOTE | 2019-02-05 13:56 | P.PN ---
Subjective Progress Note Date: 02/05/19 Principal diagnosis: Advanced, end-stage COPD with bullous changes more so on the right, chronic hypoxic respiratory failure On 02/04/2019 I'm seeing this patient for a follow-up. The patient is still short of breath. The patient known to have advanced COPD with extensive bullous changes and the patient was referred for embolectomy at [facility]. The patient was found an FEV1 of 19-21%. The surgery was canceled. Based on this, the patient was referred to the lung transplant team and she will be evaluated in this regard. Meanwhile I'll review the CAT scan of the chest and the most recent CAT scan showed extensive bullous changes bilaterally and there is a new onset small loculated right apical pneumothorax which probably added to her more shortness of breath. We decided not to do any intervention because of her extensive disease. I do not see any role for chest tube insertion at this point in time. I think this will complicate the process even further. Meanwhile, she is on IV Solu-Medrol. She is on bronchodilators. Her inflammatory bowel disease currently inactive and stable. No nausea. No vomiting. No abdominal pain. She is looking more cushingoid. On 02/05/2019 patient seen in follow-up on medical surgical floor. In no acute distress, her level of dyspnea is at the baseline, patient does have chronic exertional dyspnea, she is on 3 L of oxygen her pulse ox of 97%, no fever or chills, hemodynamically patient is stable, lung sounds are diminished, no rhonchi or wheezing. Yesterday we switched the patient's steroids to oral st eroids, patient is stable. Pulmonary perspective patient is stable for discharge home today. Referral was made for evaluation for possibility of lung transplantation at the [facility]. Patient has quit smoking, she has home oxygen, nebulized bronchodilators, at home. Not a candidate for bullectomy. Objective - Vital Signs Vital signs: Vital Signs Temp 97.0 F L 02/05/19 05:28 Pulse 108 H 02/05/19 07:00 Resp 18 02/05/19 05:28 BP 147/87 02/05/19 05:28 Pulse Ox 97 02/05/19 05:28 Intake & Output 02/04/19 02/05/19 02/05/19 18:59 06:59 18:59 Intake Total 1560 400 240 Balance 1560 400 240 Weight 46.2 kg Intake: IV 400 0.9 400 Intake, IV Titration 800 Amount Sodium Chloride 0.9% 1, 800 000 ml @ 50 mls/hr IV . Q20H [facility] Rx#:[id number] Oral 760 240 Other: Voiding Method Bedside Commode # Voids 2 - Exam GENERAL EXAM: Alert, comfortable in no apparent distress. HEAD: Normocephalic/atraumatic. EYES: Normal reaction of pupils, equal size. Conjunctiva pink, sclera white. NOSE: Clear with pink turbinates. THROAT: No erythema or exudates. NECK: No masses, no JVD, no thyroid enlargement, no adenopathy. CHEST: No chest wall deformity. Symmetrical expansion. LUNGS: Equal air entry with diminished breath sounds, no rhonchi or wheezes CVS: Regular rate and rhythm, normal S1 and S2, no gallops, no murmurs, no rubs ABDOMEN: Soft, nontender. No hepatosplenomegaly, normal bowel sounds, no guarding or rigidity. EXTREMITIES: No clubbing, no edema, no cyanosis, 2+ pulses and upper and lower extremities. MUSCULOSKELETAL: Muscle strength and tone normal. SPINE: No scoliosis or deformity SKIN: No rashes CENTRAL NERVOUS SYSTEM: Alert and oriented -3. No focal deficits, tone is normal in all 4 extremities. PSYCHIATRIC: Alert and oriented -3. Appropriate affect. Intact judgment and insight. - Labs CBC & Chem 7: 02/05/19 10:16 02/05/19 10:16 Labs: Abnormal Lab Results - Last 24 Hours (Table) 02/05/19 02/05/19 Range/Units 10:16 10:16 RBC 2.30 L (3.80-5.40) m/uL Hgb 7.6 L (11.4-16.0) gm/dL Hct 24.3 L (34.0-46.0) % MCV 105.5 H (80.0-100.0) fL RDW 21.0 H (11.5-15.5) % Carbon Dioxide 31 H (22-30) mmol/L BUN 18 H (7-17) mg/dL Glucose 145 H (74-99) mg/dL Assessment and Plan Plan: Assessment: 1 advanced, end-stage COPD with extensive bullous changes more so on the right. 2 chronic hypoxic respiratory failure 3 chronic shortness of breath 4 loculated right apical pneumothorax seen on the most recent CAT scan of the chest, not candidate for any intervention including chest tube insertion 5 chronic disease with recent hospitalization for Crohn's flareup. She has undergone previous bowel surgery and ileostomy is functional is in place for now 6 chronic depression 7 hypertension 8 fibromyalgia and chronic pain 9 impaired performance and functional status secondary to above-mentioned comorbidities 10 anemia with a hemoglobin of 7.7, chronic macrocytic anemia probably due to he r chronic inflammatory bowel disease. Plan: Patient denies any worsening shortness of breath, vital signs have been stable, no fever or chills, she is near her baseline in terms of breathing. She is on oral steroids, no significant cough or chest congestion. From pulmonary perspective patient is stable for discharge home today. Referral has been made for evaluation for possibility of lung transplantation [facility]. I performed a history & physical examination of the patient and discussed their management with my nurse practitioner, Carmella Jimenez. I reviewed the nurse practitioner's note and agree with the documented findings and plan of care. Lung sounds are positive for diminished breath sounds. The findings and the impression was discussed with the patient. I attest to the documentation by the nurse practitioner. Time with Patient: Less than 30
--- NOTE | 2019-02-05 14:15 | P.DS ---
Providers Date of admission: 02/01/19 22:29 Expected date of discharge: 02/05/19 Attending physician: Cornelius Merchant Consults: 02/01/19 22:27 Consult Physician Routine Consulting Provider: Michael Meza Consult Reason/Comments: known Do you want consulting provider notified?: Yes 02/02/19 17:40 Consult Physician Routine Consulting Provider: Bonnie Verma Consult Reason/Comments: chron's colitis exacerbation Do you want consulting provider notified?: Yes Primary care physician: [facility] Course: 58-year-old female one of Dr. bernard's patient with past medical history of advanced lung disease post bilateral spontaneous pneumothorax of both side will be going for wrap partial lobe resection and [facility] for large bulla in the right side with scheduled for January 13. Patient left the hospital on November 29 when was transferred to [facility] with the recurrent spontaneous pneumothorax. Patient is known to have history of Crohn disease post subtotal colectomy with no flareup lately has been Humira which has been managed by Dr. Verma regular basis.and is currently off her opium since insurance company is not covering for it. Patient presented to d ER complaining of 3-5 days of worsening abdominal pain with nausea insomnia, insomnia, increasing shortness of breath, cough, increasing anxiety, pain is not controlled, patient is on Joseph 10 325 every 4 hours when necessary, also decreased her Cymbalta, and is being weaned off her BuSpar from her PCP. Patient does not follow with any pain physician, patient denies any increase use her pain medication. in the emergency room, troponins are negative, EKG shows normal sinus rhythm heart rate of 126, chest x-ray shows no pneumothorax and chest CT shows large right-sided pneumothorax, vs massive right lung bullae noted bilateral upper lobe bronchogenic masses, greater on the leftconsults were made with Dr. Meza, pulmonary, patient was seen in the past at [facility], for bullectomy, however with severe pre-existing pulmonary disease, bullectomy cannot be performed 02/03: Patient continues to have lower abdominal pain and epigastric pain, no signs of melanoma hematochezia, labs are back that shows normal sed rate and CRP, still with frequent liquid stools, it is more less liquidy as patient has been taking more toward it, CAT scan of the abdomen and pelvis shows no ne abnormal pathology in the GI tract however it is a critical report based on the large hydropneumothorax that was suspected, exam shows gastritis, Pepcid was discontinued, Protonix was initiated along with Carafate, H pylori test to be done, based on patient's report, she is due for an EGD the last one was done 6 years ago, she is also due for a lower GI colonoscopy for surveillance, by Dr. Verma, Dr. Szymanski has recommended a referral to lung transplant [facility] post discharge, no urinalysis was done from the emergency room, we'll going to obtain urine evaluation secondary to persistently lower abdominal pain. Nausea still persistent, no vomiting, patient has improvement on sleep and fibromyalgia, patient slept 4 hours with Remeron initiated last night patient still drinks a lot of Pepsi products, has chronic sleep deprived lesion in the past 02/04: Patient states she has had some abdominal spasms but is quiet right now. This morning for breakfast, she had to stop and eat after 15 minutes and then couldn't finish her breakfast. She is noted to have blood in her urine and states that she has followed with Dr. Klein and there was no cause identified for this in the past. She does have history of kidney stones and underwent lithotripsy in the past. She states she did not sleep last night due to abdominal pain. She is requesting Lomotil which will be added on scheduled 4 times daily. She states she is emptying her bag 7-8 times and normally it is 3- 4 times. IV fluids will be decreased to 50 mL per hour. Patient knows to avoid all caffeine. Patient is followed by Dr. Ewing in and IV Solu-Medrol changed to prednisone taper. Patient is to follow-up at [facility] as arranged by Dr. Mistry. Patient has been seen by Dr. Almanzar with recommendations for continued supportive care, 6-mercaptopurine, Humira therapy, Carafate. He increase Protonix to twice daily. Continue antidiarrheal and antispasmodic medications and follow-up with Dr. Bonnie Verma for which she has an appointment on 02/14/2019 at which time she will likely need to be scheduled for repeat endoscopy. Plan to monitor patient overnight and possible discharge by tomorrow. 02/05: Patient has been afebrile, heart rate 108, blood pressure 147/87, pulse ox 97% on 3 L nasal cannula. WBC 4.7, Hemoccult and some 0.6, platelet count 224. CO2 31, creatinine 0.58. The patient states that she still has some abdominal discomfort when she is eating. She has a cough is nonproductive. Specimen for H. pylori testing was sent last evening results are pending. Patient complains of feeling tired. She has been seen by Dr. Mistry this morning and cleared for discharge. Patient will be discharged home today in stable condition. Discharge diagnoses: 1. Acute abdominal pain most likely secondary to gastritis. 2. Acute flareup of chron's colitis, With normal sed rate / CRP, Crohn's colitis exacerbation is less likely underlying IBS 3. Acute on chronic Gastritis 4. Advanced lung disease with multiple rupture bulla and spontaneous pneumothorax in the past, 5. Advance COPD 6. Recurrent depression 7. Hypertension 8. Sinus tachycardia 9. Chronic pain management for uncontrolled fibromyalgia 10. GI bleed ruled out 11. Chronic sleep deprivation impaired sleep architecture, significant fibromyalgia 12. Chronic hypoxic respiratory failure on home O2 at 3 L nasal cannula Discharge plan: home Impression and plan of care have been directed as dictated by the signing physician. Gaby Rothman nurse practitioner acting as scribe for signing physician. Patient Condition at Discharge: Good Plan - Discharge Summary New Discharge Prescriptions: New Amoxic-Pot Clav 875-125Mg [Augmentin 875-125] 1 each PO Q12HR #10 tab Hyoscyamine Sulfate [Levsin] 0.125 mg PO Q4H PRN #90 tab PRN Reason: Abdominal Distention Diphenox-Atrop 2.5-0.025 mg [Lomotil] 1 each PO QID tab Pantoprazole [Protonix] 40 mg PO AC-BID #60 tablet. Mirtazapine [Remeron] 7.5 mg PO 1900 #30 tab predniSONE 0 mg PO DIRECTED #20 tab Continue Latanoprost Ophth [Xalatan 0.005%] 1 drop BOTH EYES HS Dicyclomine [Bentyl] 10 mg PO TID PRN PRN Reason: Pain Cyanocobalamin [Vitamin B-12 Injection] 1,000 mcg SQ Q30D Budesonide 1 mg INHALATION RT-BID PRN PRN Reason: Shortness Of Breath Gabapentin [Neurontin] 300 mg PO TID Opium Tincture 10mg/1ml 20 mg PO BID PRN PRN Reason: BOWEL ISSUES HYDROcodone/APAP 10-325MG [Joseph 10-325] 1 tab PO Q4H PRN PRN Reason: Pain Metoprolol Tartrate [Lopressor] 50 mg PO TID #90 tab Albuterol Nebulized [Ventolin Nebulized] 2.5 mg INHALATION RT-QID PRN #120 nebu PRN Reason: Shortness Of Breath Magnesium Oxide [Mag-Ox] 400 mg PO DAILY #30 tablet Multivitamins, Thera [Multivitamin (formulary)] 1 tab PO DAILY Guaifen/Phenyleph/Acetaminophn [Mucinex Sinus-Max Severe Liq] 10 ml PO Q6H PRN PRN Reason: Cough Aclidinium Tensed [Tudorza Pressair] 1 puff INHALATION RT-BID Mercaptopurine [Purinethol] 50 mg PO BID busPIRone HCl [Buspar] 10 mg PO TID Fluticasone/Vilanterol [Breo Ellipta 200-25 Mcg INH] 1 puff INHALATION RT- DAILY Cholecalciferol (Vitamin D3) [Vitamin D3] 2,000 unit PO DAILY Acetaminophen Tab [Tylenol] 650 mg PO Q4HR PRN tab PRN Reason: Fever And/Or Mild Pain ALPRAZolam [Xanax] 0.25 mg PO DAILY PRN PRN Reason: Anxiety Methocarbamol [Robaxin] 750 mg PO TID Adalimumab [Humira(Cf) Pen] 40 mg SQ Q7D Melatonin 5 mg PO HS DULoxetine HCL [Cymbalta] 30 mg PO DAILY Sucralfate [Carafate] 1 gm PO TID #900 ml Discharge Medication List Latanoprost Ophth [Xalatan 0.005%] 1 drop BOTH EYES HS 05/21/17 [History] Cyanocobalamin [Vitamin B-12 Injection] 1,000 mcg SQ Q30D 07/24/18 [History] Dicyclomine [Bentyl] 10 mg PO TID PRN 07/24/18 [History] Budesonide 1 mg INHALATION RT-BID PRN 09/27/18 [History] Gabapentin [Neurontin] 300 mg PO TID 09/27/18 [History] HYDROcodone/APAP 10-325MG [Joseph 10-325] 1 tab PO Q4H PRN 09/27/18 [History] Opium Tincture 10mg/1ml 20 mg PO BID PRN 09/27/18 [History] Albuterol Nebulized [Ventolin Nebulized] 2.5 mg INHALATION RT-QID PRN #120 nebu 11/10/18 [Rx] Metoprolol Tartrate [Lopressor] 50 mg PO TID #90 tab 11/10/18 [Rx] Magnesium Oxide [Mag-Ox] 400 mg PO DAILY #30 tablet 11/11/18 [Rx] Aclidinium Tensed [Tudorza Pressair] 1 puff INHALATION RT-BID 11/29/18 [History] Cholecalciferol (Vitamin D3) [Vitamin D3] 2,000 unit PO DAILY 11/29/18 [History] Fluticasone/Vilanterol [Breo Ellipta 200-25 Mcg INH] 1 puff INHALATION RT-DAILY 11/29/18 [History] Guaifen/Phenyleph/Acetaminophn [Mucinex Sinus-Max Severe Liq] 10 ml PO Q6H PRN 11/29/18 [History] Mercaptopurine [Purinethol] 50 mg PO BID 11/29/18 [History] Multivitamins, Thera [Multivitamin (formulary)] 1 tab PO DAILY 11/29/18 [History] busPIRone HCl [Buspar] 10 mg PO TID 11/29/18 [History] Acetaminophen Tab [Tylenol] 650 mg PO Q4HR PRN tab 11/30/18 [Rx] ALPRAZolam [Xanax] 0.25 mg PO DAILY PRN 12/28/18 [History] Adalimumab [Humira(Cf) Pen] 40 mg SQ Q7D 12/28/18 [History] DULoxetine HCL [Cymbalta] 30 mg PO DAILY 12/28/18 [History] Melatonin 5 mg PO HS 12/28/18 [History] Methocarbamol [Robaxin] 750 mg PO TID 12/28/18 [History] Sucralfate [Carafate] 1 gm PO TID #900 ml 12/31/18 [Rx] Amoxic-Pot Clav 875-125Mg [Augmentin 875-125] 1 each PO Q12HR #10 tab 02/05/19 [Rx] Diphenox-Atrop 2.5-0.025 mg [Lomotil] 1 each PO QID tab 02/05/19 [Rx] Hyoscyamine Sulfate [Levsin] 0.125 mg PO Q4H PRN #90 tab 02/05/19 [Rx] Mirtazapine [Remeron] 7.5 mg PO 1900 #30 tab 02/05/19 [Rx] Pantoprazole [Protonix] 40 mg PO AC-BID #60 tablet. 02/05/19 [Rx] predniSONE 0 mg PO DIRECTED #20 tab 02/05/19 [Rx] Follow up Appointment(s)/Referral(s): Bonnie Verma MD [STAFF PHYSICIAN] - 02/14/19 11:45 am () Heber James MD [Primary Care Provider] - 02/12/19 9:00 am Patient Instructions/Handouts: Hyoscyamine (By mouth), Prednisone (By mouth), Amoxicillin/Clavulanate Potassium (By mouth), Mirtazapine (By mouth), Pantoprazole (By mouth), Crohn Disease (DC), COPD (Chronic Obstructive Pulmonary Disease) (DC) Discharge Disposition: HOME SELF-CARE
== END 2019-02-05 13:00 | disposition home or self-care (01) | DRG 392 ==
LOC: EC 19:52 → 3SCARD 22:29 → 4MS4W 02-04 23:18
PROVIDERS: ADMIT Internal Medicine; ATTEND Internal Medicine
PROC: 5A09457 Assistance with Respiratory Ventilation, 24-96 Consecutive Hours, Continuous Positive Airway Pressure (ICD-10-PCS; principal; 2019-02-01)
DX: K29.00 Acute gastritis without bleeding (principal); K50.80 Crohn's disease of both small and large intestine without complications; J45.901 Unspecified asthma with (acute) exacerbation; J96.11 Chronic respiratory failure with hypoxia; F33.9 Major depressive disorder, recurrent, unspecified; J93.83 Other pneumothorax; K58.0 Irritable bowel syndrome with diarrhea; J43.9 Emphysema, unspecified; I10 Essential (primary) hypertension; D53.9 Nutritional anemia, unspecified; K21.9 Gastro-esophageal reflux disease without esophagitis; M19.90 Unspecified osteoarthritis, unspecified site; M79.7 Fibromyalgia; G47.00 Insomnia, unspecified; G89.4 Chronic pain syndrome; K29.50 Unspecified chronic gastritis without bleeding; M81.0 Age-related osteoporosis without current pathological fracture; H40.9 Unspecified glaucoma; J30.2 Other seasonal allergic rhinitis; K44.9 Diaphragmatic hernia without obstruction or gangrene; R31.9 Hematuria, unspecified; F41.9 Anxiety disorder, unspecified; Z99.81 Dependence on supplemental oxygen; Z79.899 Other long term (current) drug therapy; Z72.820 Sleep deprivation; Z87.01 Personal history of pneumonia (recurrent); Z90.49 Acquired absence of other specified parts of digestive tract; Z90.710 Acquired absence of both cervix and uterus; Z93.2 Ileostomy status; Z86.74 Personal history of sudden cardiac arrest; Z87.442 Personal history of urinary calculi; Z87.891 Personal history of nicotine dependence; Z88.2 Allergy status to sulfonamides; Z88.8 Allergy status to other drugs, medicaments and biological substances; Z91.041 Radiographic dye allergy status; Z83.3 Family history of diabetes mellitus; Z80.8 Family history of malignant neoplasm of other organs or systems; Z82.3 Family history of stroke; Z82.5 Family history of asthma and other chronic lower respiratory diseases; Z81.8 Family history of other mental and behavioral disorders; Z82.49 Family history of ischemic heart disease and other diseases of the circulatory system
CPT/HCPCS: 36415; 71045; 71250; 74177; 80048; 80053; 81001; 83690; 83735; 83880; 84484; 85025; 85379; 85610; 85652; 85730; 86140; 87338; 93005; 94640; 94644; 94660; 96361; 96374; 96375; 99291

== ENCOUNTER 2019-03-26 15:46 | Inpatient (IN) | payer BC ==
[2019-03-26 17:07] LABS: Appearance,Urine Cloudy (Clear); Bilirubin,Urine Negative (Negative); Blood,Urine Negative (Negative); Color,Urine Yellow; Glucose,Urine (UA) Negative (Negative); Ketones,Urine Negative (Negative); Leukocyte Esterase,Urine Moderate (Negative); Mucus,Urine Occasional /hpf; Nitrite,Urine Negative (Negative); PH, Urine 8.5 (5.0-8.0); Protein,Urine 3+ (Negative); Urobilinogen,Urine <2.0 mg/dL (<2.0); WBC,Urine 116 /hpf (0-5)
[2019-03-26 17:12] LABS: ALT 57 U/L (9-52); AST 62 U/L (14-36); African American GFR (CKD) >90 (>60 ml/min/1.73 sqM); Albumin 3.5 g/dL (3.5-5.0); Alkaline Phosphatase 97 U/L (38-126); Amylase <30 U/L (30-110); Anion Gap 5 mmol/L; Blood Urea Nitrogen 11 mg/dL (7-17); Carbon Dioxide 37 mmol/L (22-30); Chloride 99 mmol/L (98-107); Glucose 122 mg/dL (74-99); Lipase 74 U/L (23-300); Potassium 3.8 mmol/L (3.5-5.1); Sodium 141 mmol/L (137-145); Total Bilirubin 0.9 mg/dL (0.2-1.3); Total Protein 5.9 g/dL (6.3-8.2)
[2019-03-26 17:18] LABS: Anisocytosis Slight; Basophils % (A) 0 %; Eosinophils # (A) 0.1 k/uL (0-0.7); Eosinophils % (A) 3 %; HCT 38.7 % (34.0-46.0); Hypochromasia Slight; Lymphocytes # (A) 0.8 k/uL (1.0-4.8); Lymphocytes % (A) 19 %; MCH 36.6 pg (25.0-35.0); MCHC 32.2 g/dL (31.0-37.0); Macrocytosis Marked; Mean Platelet Volume 8.7; Monocytes # (A) 0.2 k/uL (0-1.0); Monocytes % (A) 4 %; Neutrophils # (A) 2.9 k/uL (1.3-7.7); Neutrophils % (A) 73 %; Platelet Count 144 k/uL (150-450); Poikilocytosis Moderate; RBC 3.41 m/uL (3.80-5.40); RDW 19.1 % (11.5-15.5)
[2019-03-26 17:20] LABS: HGB 12.5 gm/dL (11.4-16.0); MCV 113.5 fL (80.0-100.0)
[2019-03-26] MEDS ORDERED: SODIUM CHLORIDE 0.9% 1,000 ML IV STA (18:01)
[2019-03-26] MEDS ORDERED: MORPHINE SULFATE 4 MG/ML SYRINGE IVP STA (18:23)
[2019-03-26] MEDS ORDERED: SODIUM CHLORIDE 0.9% 500 ML 500 ML IV STA (18:28)
[2019-03-26] MEDS ORDERED: methylPREDNISolone SOD SUCCI 125 MG/2 ML VIAL IV STA (18:33)
[2019-03-26] MEDS ORDERED: diphenhydrAMINE 50 MG/ML 1 ML VIAL IVP STA (18:33)
[2019-03-26] MEDS ORDERED: FAMOTIDINE 20 MG/2 ML VIAL IV STA (18:33)
[2019-03-26] MEDS ORDERED: ONDANSETRON 4 MG/2 ML VIAL IVP STA (19:09)
[2019-03-26] MEDS ORDERED: cefTRIAXone IN SWFI 1,000 MG/10 ML SYRINGE IVP STA (19:15)
--- NOTE | 2019-03-26 19:34 | ED ---
General Adult HPI - General Chief complaint: Abdominal Pain Stated complaint: Weakness, abd pain Time Seen by Provider: 03/26/19 16:54 Source: patient, RN notes reviewed Mode of arrival: ambulatory Limitations: no limitations - History of Present Illness Initial comments: 58-year-old female with a past medical history of colitis with a ostomy, bowel obstructions, multiple bowel surgeries, severe COPD on home O2 presents to the emergency department for a chief complaint of abdominal pain. Patient states this has been ongoing since last night. Patient states she has had less output in her ostomy. States she feels somewhat weak as well. Denies any back pain. States most of her abdominal pain is in the suprapubic and lower abdominal area. Admits that she has been nauseous and has vomited a few times. Patient has no other complaints at this time including shortness of breath, chest pain, headache, or visual changes. - Related Data Home Medications Medication Instructions Recorded Confirmed Latanoprost Ophth [Xalatan 0.005%] 1 drop BOTH EYES HS 05/21/17 03/26/19 Dicyclomine [Bentyl] 10 mg PO TID PRN 07/24/18 03/26/19 Budesonide 1 mg INHALATION RT-BID PRN 09/27/18 03/26/19 Gabapentin [Neurontin] 300 mg PO TID 09/27/18 03/26/19 HYDROcodone/APAP 10-325MG [[place] 1 tab PO Q4H PRN 09/27/18 03/26/19 10-325] Opium Tincture 10mg/1ml 20 mg PO BID PRN 09/27/18 03/26/19 Aclidinium [place] [Tudorza 1 puff INHALATION RT-BID 11/29/18 03/26/19 Pressair] Fluticasone/Vilanterol [Breo 1 puff INHALATION RT-DAILY 11/29/18 03/26/19 Ellipta 200-25 Mcg INH] Guaifen/Phenyleph/Acetaminophn 10 ml PO Q6H PRN 11/29/18 03/26/19 [Mucinex Sinus-Max Severe Liq] Mercaptopurine [Purinethol] 50 mg PO BID 11/29/18 03/26/19 busPIRone HCl [Buspar] 10 mg PO BID PRN 11/29/18 03/26/19 ALPRAZolam [Xanax] 0.25 mg PO DAILY PRN 12/28/18 03/26/19 Adalimumab [Humira(Cf) Pen] 40 mg SQ Q7D 12/28/18 03/26/19 DULoxetine HCL [Cymbalta] 30 mg PO DAILY 12/28/18 03/26/19 Albuterol Sulfate [Proair Hfa] 2 puff INHALATION RT-Q6H PRN 03/26/19 03/26/19 Calcium Gummies 500mg 500 mg PO BID 03/26/19 03/26/19 Diphenox-Atrop 2.5-0.025 mg 1 tab PO QID 03/26/19 03/26/19 [Lomotil] Magnesium Oxide [Adan] 500 mg PO DAILY 03/26/19 03/26/19 Melatonin 10 mg PO HS PRN 03/26/19 03/26/19 Mirtazapine [Remeron] 7.5 mg PO HS@1900 03/26/19 03/26/19 Mupirocin 2% Oint [Bactroban 2% 1 applic TOPICAL DAILY PRN 03/26/19 03/26/19 Oint] Nystatin 100,000 Unit/ml Susp 5 ml PO QID PRN 03/26/19 03/26/19 [Mycostatin Oral Susp] Ondansetron HCl [Zofran] 4 mg PO BID PRN 03/26/19 03/26/19 Pantoprazole [Protonix] 40 mg PO QAM 03/26/19 03/26/19 Previous Rx's Medication Instructions Recorded Albuterol Nebulized [Ventolin 2.5 mg INHALATION RT-QID PRN #120 11/10/18 Nebulized] nebu Metoprolol Tartrate [Lopressor] 50 mg PO TID #90 tab 11/10/18 Sucralfate [Carafate] 1 gm PO TID #900 ml 12/31/18 Hyoscyamine Sulfate [Levsin] 0.125 mg PO Q4H PRN #90 tab 02/05/19 Allergies Allergy/AdvReac Type Severity Reaction Status Date / Time Iodinated Contrast- Oral and Allergy Anaphylaxis Verified 03/26/19 17:23 IV Dye pregabalin [From Lyrica] Allergy Unknown Verified 03/26/19 17:23 rofecoxib [From Vioxx] Allergy Unknown Verified 03/26/19 17:23 Sulfa (Sulfonamide Allergy Rash/Hives Verified 03/26/19 17:23 Antibiotics) aspirin AdvReac Internal Verified 03/26/19 17:23 Bleeding timolol [Timolol] AdvReac Nausea & Verified 03/26/19 17:23 Vomiting Review of Systems ROS Statement: Those systems with pertinent positive or pertinent negative responses have been documented in the HPI. ROS Other: All systems not noted in ROS Statement are negative. Past Medical History Past Medical History: COPD, Fibromyalgia, GERD/Reflux, GI Bleed, Osteoarthritis (OA), Pneumonia, Syncope Additional Past Medical History / Comment(s): Crohn's colitis, bowel obstr uctions, multiple bowel surgeries including total colectomy/ileostomy, severe COPD, chronic respiratory failure, home O2 3L/NC, bullous emphysema, R lung bleb-to have R lung surgery on 01/15/19 at [facility], R pneumothorax x3, L pneumothorax x1 and had bilateral pneumothorax 09/2018-acute respiratory failu re/vented/cardiac arrest, tachycardia, hiatal hernia, lower GI bleeds, arthritis in multiple joints, osteoporosis, chronic pain, seasonal allergies, bilateral glaucoma and has had bilateral eye surgery for retinal tears/holes. History of Any Multi-Drug Resistant Organisms: None Reported Past Surgical History: Breast Surgery, Cholecystectomy, Hernia Repair, Hysterectomy, Orthopedic Surgery Additional Past Surgical History / Comment(s): Multiple bowel surgeries including total colectomy/ileostomy, ileostomy moved/repaired, R salpingoophorectomy due to ectopic , total hysterectomy, leep procedure, laparoscopy for endometriosis, L breast lumpectomy-benign, r breast core bx-benign, EGD/colonoscopies, bilateral thoravents, arthroscopic knee surgery on the right due to ACL and Meniscal tear, trach and peg tube-since removed. Past Anesthesia/Blood Transfusion Reactions: No Reported Reaction Past Psychological History: Anxiety, Depression Smoking Status: Former smoker Past Alcohol Use History: None Reported Past Drug Use History: None Reported - Past Family History Mother Family Medical History: Cancer, COPD, Hypertension Additional Family Medical History / Comment(s): Mother at age 83 from COPD and had osteoarthritis and skin cancer. Father Family Medical History: Cancer, CVA/TIA, Dementia, Diabetes Mellitus Additional Family Medical History / Comment(s): Father is 92 yrs old. He has had several TIAs and a CVA Brother(s) Family Medical History: Cancer Additional Family Medical History / Comment(s): Patient had 5 brothers and one of them from melanoma at age 41. Sister(s) History Unknown: Yes Family Medical History: No Reported History Additional Family Medical History / Comment(s): Patient has one sister. Patient has no children General Exam Limitations: no limitations General appearance: alert, in no apparent distress Head exam: Present: atraumatic, normocephalic, normal inspection Eye exam: Present: normal appearance, PERRL, EOMI. Absent: scleral icterus, conjunctival injection, periorbital swelling ENT exam: Present: normal exam, mucous membranes moist Neck exam: Present: normal inspection, full ROM. Absent: tenderness, meningismus, lymphadenopathy Respiratory exam: Present: normal lung sounds bilaterally. Absent: respiratory distress, wheezes, rales, rhonchi, stridor Cardiovascular Exam: Present: regular rate, normal rhythm, normal heart sounds. Absent: systolic murmur, diastolic murmur, rubs, gallop, clicks GI/Abdominal exam: Present: soft, tenderness (Tenderness noted in the lower abdomen including the suprapubic and right and left lower quadrant areas), normal bowel sounds. Absent: distended, guarding, rebound, rigid Neurological exam: Present: alert, oriented X3, CN II-XII intact Psychiatric exam: Present: normal affect, normal mood Course Vital Signs 03/26/19 03/26/19 03/26/19 16:38 19:09 21:11 Temperature 98.2 F 99.4 F Pulse Rate 102 H 116 H 103 H Respiratory 18 20 16 Rate Blood Pressure 133/95 146/93 110/76 O2 Sat by Pulse 98 99 100 Oximetry Medical Decision Making - Medical Decision Making 58-year-old female with a past medical history of colitis with ostomy, bowel resection, multiple bowel surgeries, severe COPD on home O2 presents to the emergency department for abdominal pain. This has been ongoing since last night. States she has had less output in her ostomy as well. States it is mostly in the lower abdomen on exam patient does have tenderness noted of the suprapubic and lower abdominal areas. CBC does show some macrocytosis, likely also hemoconcentration from dehydration as patient's hemoglobin is 12.5 and she normally runs lower. CMP shows mild transaminitis which is consistent with previous levels. Urinalysis does show 116 white blood cells with occasional white blood cell count and mucus. Patient started on Rocephin, blood cultures pending, lactate 1.8. Patient has been slightly tachycardic however blood pressure has remained stable. She has been given 1.[address] abdomen and pelvis shows findings consistent with SMA syndrome as well as nonspecific small bowel findings such as scattered mild mural thickening and edematous small bowel mesentery. She has been vomiting twice here in the emergency department which is under control after Zofran prescribed. Patient will be admitted for GI and general surgery consult. Patient states the last surgeon she saw was Dr Daniels who did her trach late last year and has been subsequently seen her in house. Requests to see his group. - Lab Data Result diagrams: 03/26/19 16:45 03/26/19 16:45 Lab Results 03/26/19 03/26/19 03/26/19 Range/Units 16:45 16:45 16:45 WBC 4.0 (3.8-10.6) k/uL RBC 3.41 L (3.80-5.40) m/uL Hgb 12.5 D (11.4-16.0) gm/dL Hct 38.7 (34.0-46.0) % MCV 113.5 H D (80.0-100.0) fL MCH 36.6 H (25.0-35.0) pg MCHC 32.2 (31.0-37.0) g/dL RDW 19.1 H (11.5-15.5) % Plt Count 144 L (150-450) k/uL Neutrophils % 73 % Lymphocytes % 19 % Monocytes % 4 % Eosinophils % 3 % Basophils % 0 % Neutrophils # 2.9 (1.3-7.7) k/uL Lymphocytes # 0.8 L (1.0-4.8) k/uL Monocytes # 0.2 (0-1.0) k/uL Eosinophils # 0.1 (0-0.7) k/uL Basophils # 0.0 (0-0.2) k/uL Manual Slide Review Performed Hypochromasia Slight Poikilocytosis Moderate Anisocytosis Slight Macrocytosis Marked A Sodium 141 (137-145) mmol/L Potassium 3.8 (3.5-5.1) mmol/L Chloride 99 (98-107) mmol/L Carbon Dioxide 37 H (22-30) mmol/L Anion Gap 5 mmol/L BUN 11 (7-17) mg/dL Creatinine 0.53 (0.52-1.04) mg/dL Est GFR (CKD-EPI)AfAm >90 (>60 ml/min/1.73 sqM) Est GFR (CKD-EPI)NonAf >90 (>60 ml/min/1.73 sqM) Glucose 122 H (74-99) mg/dL Plasma Lactic Acid Josep (0.7-2.0) mmol/L Calcium 9.0 (8.4-10.2) mg/dL Total Bilirubin 0.9 (0.2-1.3) mg/dL AST 62 H (14-36) U/L ALT 57 H (9-52) U/L Alkaline Phosphatase 97 (38-126) U/L Total Protein 5.9 L (6.3-8.2) g/dL Albumin 3.5 (3.5-5.0) g/dL Amylase <30 L (30-110) U/L Lipase 74 (23-300) U/L Urine Color Yellow Urine Appearance Cloudy H (Clear) Urine pH 8.5 H (5.0-8.0) Ur Specific [place] 1.020 (1.001-1.035) Urine Protein 3+ H (Negative) Urine Glucose (UA) Negative (Negative) Urine Ketones Negative (Negative) Urine Blood Negative (Negative) Urine Nitrite Negative (Negative) Urine Bilirubin Negative (Negative) Urine Urobilinogen <2.0 (<2.0) mg/dL Ur Leukocyte Esterase Moderate H (Negative) Urine WBC 116 H (0-5) /hpf Urine WBC Clumps Occasional H (None) /hpf Urine Mucus Occasional H (None) /hpf 03/26/19 Range/Units 20:50 WBC (3.8-10.6) k/uL RBC (3.80-5.40) m/uL Hgb (11.4-16.0) gm/dL Hct (34.0-46.0) % MCV (80.0-100.0) fL MCH (25.0-35.0) pg MCHC (31.0-37.0) g/dL RDW (11.5-15.5) % Plt Count (150-450) k/uL Neutrophils % % Lymphocytes % % Monocytes % % Eosinophils % % Basophils % % Neutrophils # (1.3-7.7) k/uL Lymphocytes # (1.0-4.8) k/uL Monocytes # (0-1.0) k/uL Eosinophils # (0-0.7) k/uL Basophils # (0-0.2) k/uL Manual Slide Review Hypochromasia Poikilocytosis Anisocytosis Macrocytosis Sodium (137-145) mmol/L Potassium (3.5-5.1) mmol/L Chloride (98-107) mmol/L Carbon Dioxide (22-30) mmol/L Anion Gap mmol/L BUN (7-17) mg/dL Creatinine (0.52-1.04) mg/dL Est GFR (CKD-EPI)AfAm (>60 ml/min/1.73 sqM) Est GFR (CKD-EPI)NonAf (>60 ml/min/1.73 sqM) Glucose (74-99) mg/dL Plasma Lactic Acid Josep 1.8 (0.7-2.0) mmol/L Calcium (8.4-10.2) mg/dL Total Bilirubin (0.2-1.3) mg/dL AST (14-36) U/L ALT (9-52) U/L Alkaline Phosphatase (38-126) U/L Total Protein (6.3-8.2) g/dL Albumin (3.5-5.0) g/dL Amylase (30-110) U/L Lipase (23-300) U/L Urine Color Urine Appearance (Clear) Urine pH (5.0-8.0) Ur Specific [place] (1.001-1.035) Urine Protein (Negative) Urine Glucose (UA) (Negative) Urine Ketones (Negative) Urine Blood (Negative) Urine Nitrite (Negative) Urine Bilirubin (Negative) Urine Urobilinogen (<2.0) mg/dL Ur Leukocyte Esterase (Negative) Urine WBC (0-5) /hpf Urine WBC Clumps (None) /hpf Urine Mucus (None) /hpf Disposition Clinical Impression: Superior mesenteric artery syndrome, Nausea and vomiting, Intractable abdominal pain, Urinary tract infection Disposition: ADMITTED IP TO THIS HOSP Condition: Fair Is patient prescribed a controlled substance at d/c from ED?: No Referrals: Heber James MD [Primary Care Provider] - 1-2 days Time of Disposition: 21:38
--- NOTE | 2019-03-26 20:46 | CT ---
EXAMINATION TYPE: CT abdomen pelvis w con DATE OF EXAM: 03/26/2019 COMPARISON: 619 HISTORY: Nausea, vomiting, abdominal pain. History of crohn's colitis. CT DLP: 489.6 mGycm Automated exposure control for dose reduction was used. TECHNIQUE: Helical acquisition of images was performed from the lung bases through the pelvis. CONTRAST: Performed without Oral Contrast and with IV Contrast, patient injected with 100 mL of Isovu e 300. FINDINGS: LUNG BASES: No acute process is seen, but the markedly extensive bulla and bleb formation at the lung bases is redemonstrated STOMACH AND DUODENUM: The stomach is markedly distended as is the proximal duodenum, with the caliber change occurring at the midline where the mid third portion of the duodenum comes collapsed in calib er. Findings consistent with SMA syndrome. LIVER/GB: No significant abnormality is appreciated. PANCREAS: No significant abnormality is seen. SPLEEN: No significant abnormality is seen. ADRENALS: No significant abnormality is seen. KIDNEYS: No significant abnormality is seen. FREE AIR: No free air is visualized. RETROPERITONEAL ADENOPATHY: None visualized REPRODUCTIVE ORGANS: No significant abnormality is seen URINARY BLADDER: No significant abnormality is seen. PELVIC ADENOPATHY: None visualized. OSSEOUS STRUCTURES: No significant abnormality is seen. BOWEL: When compared to the prior CT of 02/02/2019, the pelvic small bowel loops are slightly indistin ct and demonstrate scattered mild mural thickening. In addition, the small bowel mesentery is mildly edematous presently, new since the prior study. However, the diameter of the bowel loops is normal. T here is no pneumatosis. No pneumoperitoneum. No peritoneal fluid. OTHER: No acute vascular findings. IMPRESSION: 1. POSITIVE FOR SMA SYNDROME. 2. NONSPECIFIC SMALL BOWEL FINDINGS, WOULD SUGGEST SHORT INTERVAL FOLLOW-UP IMAGING TO CLARIFY.
[2019-03-26] MEDS ORDERED: HYDROmorphone 0.5 MG/0.5 ML SYRINGE IVP STA (20:54)
[2019-03-26] MEDS ORDERED: NALOXONE 0.4 MG/ML 1 ML VIAL IV PRN (21:40)
[2019-03-26] MEDS: SODIUM CHLORIDE 0.9% 1,000 ML IV SCH (22:21)
[2019-03-27] MEDS: HYDROmorphone 0.5 MG/0.5 ML SYRINGE IVP PRN ×7 (01:08→21:24)
[2019-03-27] MEDS: ONDANSETRON 4 MG/2 ML VIAL IVP PRN ×3 (01:08→17:46)
[2019-03-27] MEDS: SODIUM CHLORIDE 0.9% 1,000 ML IV SCH ×2 (07:42→17:40)
[2019-03-27] MEDS ORDERED: ALPRAZolam 0.25 MG TAB PO PRN (09:59)
[2019-03-27] MEDS ORDERED: busPIRone HCl 10 MG TAB PO PRN (09:59)
[2019-03-27] MEDS ORDERED: IPRATROPIUM-ALBUTEROL 3 ML NEB INHALATION PRN (10:01)
[2019-03-27] MEDS ORDERED: HYOSCYAMINE SULFATE 0.125 MG TAB PO PRN (11:24)
[2019-03-27] MEDS ORDERED: DICYCLOMINE 10 MG CAP PO PRN (11:24)
[2019-03-27] MEDS ORDERED: DIPHENOX-ATROP 2.5-0.025 MG 1 EACH TAB PO PRN (11:24)
[2019-03-27] MEDS: IPRATROPIUM-ALBUTEROL 3 ML NEB INHALATION SCH ×3 (11:40→20:04)
--- NOTE | 2019-03-27 12:20 | P.GSCN ---
<Manda Kovacs - Last Filed: 03/27/19 12:14> History of Present Illness Consult date: 03/27/19 Reason for Consult: possible SMA syndrome, abdominal pain Requesting physician: Joby Walton History of present illness: CHIEF COMPLAINT: abdominal pain HISTORY OF PRESENT ILLNESS: 58 year old female with a history of Crohns disease and multiple bowel surgeries in the past who presented to the ER with a chief complaint of abdominal pain. General surgery was consulted for further evaluation. Patient reports she began having abdominal pain Monday morning. She characterizes the abdominal pain as burning in the lower quadrants with some spasms in the upper quadrants. Pain is currently in the suprapubic region. She reports having liquid stools, more than normal, through her ostomy on Monday. Sh polly reports a decrease in bowel function yesterday with almost no stool output. Ostomy with stool production currently. Patient reports nausea x 2 days and an episode of emesis at home and once in the ER. PAST MEDICAL HISTORY: See list. PAST SURGICAL HISTORY: See list. SOCIAL HISTORY: No illicit drug use. REVIEW OF SYSTEMS: CONSTITUTIONAL: Denies fever or chills. HEENT: Denies blurred vision, vision changes, or eye pain. Denies hemoptysis CARDIOVASCULAR: Denies chest pain or pressure. RESPIRATORY: No shortness of breath. GASTROINTESTINAL: Refer to HPI for pertinent findings HEMATOLOGIC: Denies bleeding disorders. GENITOURINARY: Denies any blood in urine. SKIN: Denies pruitis. Denies rash. PHYSICAL EXAM: VITAL SIGNS: Reviewed. GENERAL: Well-developed in no acute distress. HEENT: No sclera icterus. Extraocular movements grossly intact. Moist buccal mucosa. Head is atraumatic, normocephalic. ABDOMEN: Soft. Nondistended. Pain upon palpation of suprapubic region. Positive bowel sounds. Ostomy with stool noted. NEUROLOGIC: Alert and oriented. Cranial nerves II through XII grossly intact. IMAGING: CT abdomen and pelvis: Stomach is markedly distended as is the proximal duodenum with a caliber change occurring at the midline where the mid third portion of the duodenum comes collapsed in caliber. ASSESSMENT: 1. Abdominal pain and nausea x 2 days 2. History of Crohn's disease 3. History of multiple bowel surgeries PLAN: Case discussed with Dr. Aguayo. Based on patient presentation, physical examination, and CT scan, do not believe that patient has SMA syndrome. Will begin patient on clear liquid diet. No surgical intervention recommended. Nurse practitioner note has been reviewed by physician. Signing provider agrees with the documented findings, assessment, and plan of care. Past Medical History Past Medical History: COPD, Fibromyalgia, GERD/Reflux, GI Bleed, Osteoarthritis (OA), Pneumonia, Syncope Additional Past Medical History / Comment(s): Crohn's colitis, bowel obstructions, multiple bowel surgeries including total colectomy/ileostomy, severe COPD, chronic respiratory failure, home O2 3L/NC, bullous emphysema, R lung bleb R pneumothorax x3, L pneumothorax x1 and had bilateral pneumothorax 09/2018-acute respiratory failure/vented/cardiac arrest, tachycardia, hiatal hernia, lower GI bleeds, arthritis in multiple joints, osteoporosis, chronic pain, seasonal allergies, bilateral glaucoma and has had bilateral eye surgery for retinal tears/holes. History of Any Multi-Drug Resistant Organisms: None Reported Past Surgical History: Breast Surgery, Cholecystectomy, Hernia Repair, Hysterectomy, Orthopedic Surgery Additional Past Surgical History / Comment(s): Multiple bowel surgeries including total colectomy/ileostomy, ileostomy moved/repaired, R salpingoophorectomy due to ectopic , total hysterectomy, leep procedure, laparoscopy for endometriosis, L breast lumpectomy-benign, r breast core bx-benign, EGD/colonoscopies, bilateral thoravents, arthroscopic knee surgery on the right due to ACL and Meniscal tear, trach and peg tube-since removed. Past Anesthesia/Blood Transfusion Reactions: No Reported Reaction Past Psychological History: Anxiety, Depression Additional Psychological History / Comment(s): Pt is staying with her sister who has a one level home. Her spouse is staying between their home to care for the dogs and pt's sister's house. Pt uses 02 3l n/c atc, has nebulizer, walker. She is receiving PT at home thru [facility]. Smoking Status: Former smoker Past Alcohol Use History: None Reported Additional Past Alcohol Use History / Comment(s): Patient used to smoke 1 pack per day since she was 17 and smoked for 30 years and quit in January 2017. Past Drug Use History: None Reported - Past Family History Mother Family Medical History: Cancer, COPD, Hypertension Additional Family Medical History / Comment(s): Mother at age 83 from COPD and had osteoarthritis and skin cancer. Father Family Medical History: Cancer, CVA/TIA, Dementia, Diabetes Mellitus Additional Family Medical History / Comment(s): Father is 92 yrs old. He has had several TIAs and a CVA Brother(s) Family Medical History: Cancer Additional Family Medical History / Comment(s): Patient had 5 brothers and one of them from melanoma at age 41. Sister(s) History Unknown: Yes Family Medical History: No Reported History Additional Family Medical History / Comment(s): Patient has one sister. Patient has no children Medications and Allergies Home Medications Medication Instructions Recorded Confirmed Type Latanoprost Ophth [Xalatan 0.005%] 1 drop BOTH EYES HS 05/21/17 03/26/19 History Dicyclomine [Bentyl] 10 mg PO TID PRN 07/24/18 03/26/19 History Budesonide 1 mg INHALATION RT-BID PRN 09/27/18 03/26/19 History Gabapentin [Neurontin] 300 mg PO TID 09/27/18 03/26/19 History HYDROcodone/APAP 10-325MG [[place] 1 tab PO Q4H PRN 09/27/18 03/26/19 History 10-325] Opium Tincture 10mg/1ml 20 mg PO BID PRN 09/27/18 03/26/19 History Albuterol Nebulized [Ventolin 2.5 mg INHALATION RT-QID PRN #120 11/10/18 03/26/19 Rx Nebulized] nebu Metoprolol Tartrate [Lopressor] 50 mg PO TID #90 tab 11/10/18 03/26/19 Rx Aclidinium [place] [Tudorza 1 puff INHALATION RT-BID 11/29/18 03/26/19 History Pressair] Fluticasone/Vilanterol [Breo 1 puff INHALATION RT-DAILY 11/29/18 03/26/19 History Ellipta 200-25 Mcg INH] Guaifen/Phenyleph/Acetaminophn 10 ml PO Q6H PRN 11/29/18 03/26/19 History [Mucinex Sinus-Max Severe Liq] Mercaptopurine [Purinethol] 50 mg PO BID 11/29/18 03/26/19 History busPIRone HCl [Buspar] 10 mg PO BID PRN 11/29/18 03/26/19 History ALPRAZolam [Xanax] 0.25 mg PO DAILY PRN 12/28/18 03/26/19 History Adalimumab [Humira(Cf) Pen] 40 mg SQ Q7D 12/28/18 03/26/19 History DULoxetine HCL [Cymbalta] 30 mg PO DAILY 12/28/18 03/26/19 History Sucralfate [Carafate] 1 gm PO TID #900 ml 12/31/18 03/26/19 Rx Hyoscyamine Sulfate [Levsin] 0.125 mg PO Q4H PRN #90 tab 02/05/19 03/26/19 Rx Albuterol Sulfate [Proair Hfa] 2 puff INHALATION RT-Q6H PRN 03/26/19 03/26/19 History Calcium Gummies 500mg 500 mg PO BID 03/26/19 03/26/19 History Diphenox-Atrop 2.5-0.025 mg 1 tab PO QID 03/26/19 03/26/19 History [Lomotil] Magnesium Oxide [Adan] 500 mg PO DAILY 03/26/19 03/26/19 History Melatonin 10 mg PO HS PRN 03/26/19 03/26/19 History Mirtazapine [Remeron] 7.5 mg PO HS@1900 03/26/19 03/26/19 History Mupirocin 2% Oint [Bactroban 2% 1 applic TOPICAL DAILY PRN 03/26/19 03/26/19 History Oint] Nystatin 100,000 Unit/ml Susp 5 ml PO QID PRN 03/26/19 03/26/19 History [Mycostatin Oral Susp] Ondansetron HCl [Zofran] 4 mg PO BID PRN 03/26/19 03/26/19 History Pantoprazole [Protonix] 40 mg PO QAM 03/26/19 03/26/19 History Allergies Allergy/AdvReac Type Severity Reaction Status Date / Time Iodinated Contrast- Oral and Allergy Anaphylaxis Verified 03/26/19 17:23 IV Dye pregabalin [From Lyrica] Allergy Unknown Verified 03/26/19 17:23 rofecoxib [From Vioxx] Allergy Unknown Verified 03/26/19 17:23 Sulfa (Sulfonamide Allergy Rash/Hives Verified 03/26/19 17:23 Antibiotics) aspirin AdvReac Internal Verified 03/26/19 17:23 Bleeding timolol [Timolol] AdvReac Nausea & Verified 03/26/19 17:23 Vomiting Surgical - Exam Vital Signs Temp Pulse Resp BP Pulse Ox 98.2 F 102 H 18 133/95 98 03/26/19 16:38 03/26/19 16:38 03/26/19 16:38 03/26/19 16:38 03/26/19 16:38 Results - Labs 03/26/19 16:45 03/26/19 16:45 Abnormal Lab Results - Last 24 Hours (Table) 03/26/19 03/26/19 03/26/19 Range/Units 16:45 16:45 16:45 RBC 3.41 L (3.80-5.40) m/uL MCV 113.5 H D (80.0-100.0) fL MCH 36.6 H (25.0-35.0) pg RDW 19.1 H (11.5-15.5) % Plt Count 144 L (150-450) k/uL Lymphocytes # 0.8 L (1.0-4.8) k/uL Macrocytosis Marked A Carbon Dioxide 37 H (22-30) mmol/L Glucose 122 H (74-99) mg/dL AST 62 H (14-36) U/L ALT 57 H (9-52) U/L Total Protein 5.9 L (6.3-8.2) g/dL Amylase <30 L (30-110) U/L Urine Appearance Cloudy H (Clear) Urine pH 8.5 H (5.0-8.0) Urine Protein 3+ H (Negative) Ur Leukocyte Esterase Moderate H (Negative) Urine WBC 116 H (0-5) /hpf Urine WBC Clumps Occasional H (None) /hpf Urine Mucus Occasional H (None) /hpf Microbiology - Last 24 Hours (Table) 03/26/19 16:45 Urine Culture - Preliminary Urine,Clean Catch Diabetes panel 03/26/19 Range/Units 16:45 Sodium 141 (137-145) mmol/L Potassium 3.8 (3.5-5.1) mmol/L Chloride 99 (98-107) mmol/L Carbon Dioxide 37 H (22-30) mmol/L BUN 11 (7-17) mg/dL Creatinine 0.53 (0.52-1.04) mg/dL Glucose 122 H (74-99) mg/dL Calcium 9.0 (8.4-10.2) mg/dL AST 62 H (14-36) U/L ALT 57 H (9-52) U/L Alkaline Phosphatase 97 (38-126) U/L Total Protein 5.9 L (6.3-8.2) g/dL Albumin 3.5 (3.5-5.0) g/dL Calcium panel 03/26/19 Range/Units 16:45 Calcium 9.0 (8.4-10.2) mg/dL Albumin 3.5 (3.5-5.0) g/dL Pituitary panel 03/26/19 Range/Units 16:45 Sodium 141 (137-145) mmol/L Potassium 3.8 (3.5-5.1) mmol/L Chloride 99 (98-107) mmol/L Carbon Dioxide 37 H (22-30) mmol/L BUN 11 (7-17) mg/dL Creatinine 0.53 (0.52-1.04) mg/dL Glucose 122 H (74-99) mg/dL Calcium 9.0 (8.4-10.2) mg/dL Adrenal panel 03/26/19 Range/Units 16:45 Sodium 141 (137-145) mmol/L Potassium 3.8 (3.5-5.1) mmol/L Chloride 99 (98-107) mmol/L Carbon Dioxide 37 H (22-30) mmol/L BUN 11 (7-17) mg/dL Creatinine 0.53 (0.52-1.04) mg/dL Glucose 122 H (74-99) mg/dL Calcium 9.0 (8.4-10.2) mg/dL Total Bilirubin 0.9 (0.2-1.3) mg/dL AST 62 H (14-36) U/L ALT 57 H (9-52) U/L Alkaline Phosphatase 97 (38-126) U/L Total Protein 5.9 L (6.3-8.2) g/dL Albumin 3.5 (3.5-5.0) g/dL <Fernando Aguayo - Last Filed: 03/27/19 12:30> History of Present Illness History of present illness: As above. Patient with abdominal pain nausea vomiting. History of known Crohn's disease. CAT scan reviewed. I am not convinced that SMA syndrome is the etiology this time. Proximal jejunum with some dilatation as well which typically would not be present with symptomatic SMA syndrome. Begin clear liquids. Await GI evaluation to evaluate for possible Crohn's exacerbation. We'll follow with you. Surgical - Exam Vital Signs Temp Pulse Resp BP Pulse Ox 98.2 F 102 H 18 133/95 98 03/26/19 16:38 03/26/19 16:38 03/26/19 16:38 03/26/19 16:38 03/26/19 16:38 Results - Labs 03/26/19 16:45 03/26/19 16:45 Abnormal Lab Results - Last 24 Hours (Table) 03/26/19 03/26/19 03/26/19 Range/Units 16:45 16:45 16:45 RBC 3.41 L (3.80-5.40) m/uL MCV 113.5 H D (80.0-100.0) fL MCH 36.6 H (25.0-35.0) pg RDW 19.1 H (11.5-15.5) % Plt Count 144 L (150-450) k/uL Lymphocytes # 0.8 L (1.0-4.8) k/uL Macrocytosis Marked A Carbon Dioxide 37 H (22-30) mmol/L Glucose 122 H (74-99) mg/dL AST 62 H (14-36) U/L ALT 57 H (9-52) U/L Total Protein 5.9 L (6.3-8.2) g/dL Amylase <30 L (30-110) U/L Urine Appearance Cloudy H (Clear) Urine pH 8.5 H (5.0-8.0) Urine Protein 3+ H (Negative) Ur Leukocyte Esterase Moderate H (Negative) Urine WBC 116 H (0-5) /hpf Urine WBC Clumps Occasional H (None) /hpf Urine Mucus Occasional H (None) /hpf Microbiology - Last 24 Hours (Table) 03/26/19 16:45 Urine Culture - Preliminary Urine,Clean Catch Diabetes panel 03/26/19 Range/Units 16:45 Sodium 141 (137-145) mmol/L Potassium 3.8 (3.5-5.1) mmol/L Chloride 99 (98-107) mmol/L Carbon Dioxide 37 H (22-30) mmol/L BUN 11 (7-17) mg/dL Creatinine 0.53 (0.52-1.04) mg/dL Glucose 122 H (74-99) mg/dL Calcium 9.0 (8.4-10.2) mg/dL AST 62 H (14-36) U/L ALT 57 H (9-52) U/L Alkaline Phosphatase 97 (38-126) U/L Total Protein 5.9 L (6.3-8.2) g/dL Albumin 3.5 (3.5-5.0) g/dL Calcium panel 03/26/19 Range/Units 16:45 Calcium 9.0 (8.4-10.2) mg/dL Albumin 3.5 (3.5-5.0) g/dL Pituitary panel 03/26/19 Range/Units 16:45 Sodium 141 (137-145) mmol/L Potassium 3.8 (3.5-5.1) mmol/L Chloride 99 (98-107) mmol/L Carbon Dioxide 37 H (22-30) mmol/L BUN 11 (7-17) mg/dL Creatinine 0.53 (0.52-1.04) mg/dL Glucose 122 H (74-99) mg/dL Calcium 9.0 (8.4-10.2) mg/dL Adrenal panel 03/26/19 Range/Units 16:45 Sodium 141 (137-145) mmol/L Potassium 3.8 (3.5-5.1) mmol/L Chloride 99 (98-107) mmol/L Carbon Dioxide 37 H (22-30) mmol/L BUN 11 (7-17) mg/dL Creatinine 0.53 (0.52-1.04) mg/dL Glucose 122 H (74-99) mg/dL Calcium 9.0 (8.4-10.2) mg/dL Total Bilirubin 0.9 (0.2-1.3) mg/dL AST 62 H (14-36) U/L ALT 57 H (9-52) U/L Alkaline Phosphatase 97 (38-126) U/L Total Protein 5.9 L (6.3-8.2) g/dL Albumin 3.5 (3.5-5.0) g/dL
--- NOTE | 2019-03-27 13:20 | P.CONS ---
History of Present Illness - Reason for Consult Consult date: 03/27/19 abdominal pain Requesting physician: Cornelius Merchant - Chief Complaint abdominal pain - History of Present Illness 58-year-old female patient of Dr. Verma other past medical history advanced lung disease, Crohn's disease status post subtotal colectomy maintained on Humira weekly basis presents with increased abdominal pain fluctuations in ostomy output possible UTI. Patient stated over the weekend she was having increased ostomy output followed by no output. Presently she is passing air through the bag tolerating a clear liquid diet. Denies hematemesis or hematochezia. No fevers. She felt dehydrated. Few nonbloody emesis. White count 4.0. Hemoglobin 12.5. Platelet 144. Lactic acid 1.8. 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 Patient has been seen by general surgery no surgical intervention planned at this time. Review of Systems Constitutional: Denies fever, chills, sweats, weight gain, or loss. HEENT: Negative for migraines, blurred vision or loss, earaches, drainage, tinnitus, oral mucosal lesions, dysphagia, or odynophagia. CARDIAC: Negative for chest pain, arrhythmias, or palpitation. RESPIRATORY: Negative for shortness of breath, hemoptysis, cough, or sputum production. GI: See HPI for pertinent findings. : Negative for hematuria, urgency, frequency, polyuria, or dysuria. GYNc: Denies possibility of . Negative vaginal discharge. MUSCULOSKELETAL: Negative for muscle aches, swelling, arthritis, and arthralgias. NEUROLOGIC: Negative for stroke or TIA. ENDOCRINE: Negative for thyroid problems. SKIN: Negative for rash or itching. PSYCHIATRIC: Negative history for depression and anxiety Past Medical History Past Medical History: COPD, Fibromyalgia, GERD/Reflux, GI Bleed, Osteoarthritis (OA), Pneumonia, Syncope Additional Past Medical History / Comment(s): Crohn's colitis, bowel o bstructions, multiple bowel surgeries including total colectomy/ileostomy, severe COPD, chronic respiratory failure, home O2 3L/NC, bullous emphysema, R lung bleb R pneumothorax x3, L pneumothorax x1 and had bilateral pneumothorax 09/2018-acute respiratory failure/vented/cardiac arrest, tachycardia, hiatal hernia, lower GI bleeds, arthritis in multiple joints, osteoporosis, chronic pain, seasonal allergies, bilateral glaucoma and has had bilateral eye surgery for retinal tears/holes. History of Any Multi-Drug Resistant Organisms: None Reported Past Surgical History: Breast Surgery, Cholecystectomy, Hernia Repair, Hysterectomy, Orthopedic Surgery Additional Past Surgical History / Comment(s): Multiple bowel surgeries including total colectomy/ileostomy, ileostomy moved/repaired, R salpingoophorectomy due to ectopic , total hysterectomy, leep procedure, laparoscopy for endometriosis, L breast lumpectomy-benign, r breast core bx-benign, EGD/colonoscopies, bilateral thoravents, arthroscopic knee surgery on the right due to ACL and Meniscal tear, trach and peg tube-since removed. Past Anesthesia/Blood Transfusion Reactions: No Reported Reaction Past Psychological History: Anxiety, Depression Additional Psychological History / Comment(s): Pt is staying with her sister who has a one level home. Her spouse is staying between their home to care for the dogs and pt's sister's house. Pt uses 02 3l n/c atc, has nebulizer, walker. She is receiving PT at home thru [facility]. Smoking Status: Former smoker Past Alcohol Use History: None Reported Additional Past Alcohol Use History / Comment(s): Patient used to smoke 1 pack per day since she was 17 and smoked for 30 years and quit in January 2017. Past Drug Use History: None Reported - Past Family History Mother Family Medical History: Cancer, COPD, Hypertension Additional Family Medical History / Comment(s): Mother at age 83 from COPD and had osteoarthritis and skin cancer. Father Family Medical History: Cancer, CVA/TIA, Dementia, Diabetes Mellitus Additional Family Medical History / Comment(s): Father is 92 yrs old. He has had several TIAs and a CVA Brother(s) Family Medical History: Cancer Additional Family Medical History / Comment(s): Patient had 5 brothers and one of them from melanoma at age 41. Sister(s) History Unknown: Yes Family Medical History: No Reported History Additional Family Medical History / Comment(s): Patient has one sister. Patient has no children Medications and Allergies Home Medications Medication Instructions Recorded Confirmed Type Latanoprost Ophth [Xalatan 0.005%] 1 drop BOTH EYES HS 05/21/17 03/26/19 History Dicyclomine [Bentyl] 10 mg PO TID PRN 07/24/18 03/26/19 History Budesonide 1 mg INHALATION RT-BID PRN 09/27/18 03/26/19 History Gabapentin [Neurontin] 300 mg PO TID 09/27/18 03/26/19 History HYDROcodone/APAP 10-325MG [[place] 1 tab PO Q4H PRN 09/27/18 03/26/19 History 10-325] Opium Tincture 10mg/1ml 20 mg PO BID PRN 09/27/18 03/26/19 History Albuterol Nebulized [Ventolin 2.5 mg INHALATION RT-QID PRN #120 11/10/18 03/26/19 Rx Nebulized] nebu Metoprolol Tartrate [Lopressor] 50 mg PO TID #90 tab 11/10/18 03/26/19 Rx Aclidinium [place] [[place]udorza 1 puff INHALATION RT-BID 11/29/18 03/26/19 History Pressair] Fluticasone/Vilanterol [Breo 1 puff INHALATION RT-DAILY 11/29/18 03/26/19 History Ellipta 200-25 Mcg INH] Guaifen/Phenyleph/Acetaminophn 10 ml PO Q6H PRN 11/29/18 03/26/19 History [Mucinex Sinus-Max Severe Liq] Mercaptopurine [Purinethol] 50 mg PO BID 11/29/18 03/26/19 History busPIRone HCl [Buspar] 10 mg PO BID PRN 11/29/18 03/26/19 History ALPRAZolam [Xanax] 0.25 mg PO DAILY PRN 12/28/18 03/26/19 History Adalimumab [Humira(Cf) Pen] 40 mg SQ Q7D 12/28/18 03/26/19 History DULoxetine HCL [Cymbalta] 30 mg PO DAILY 12/28/18 03/26/19 History Sucralfate [Carafate] 1 gm PO TID #900 ml 12/31/18 03/26/19 Rx Hyoscyamine Sulfate [Levsin] 0.125 mg PO Q4H PRN #90 tab 02/05/19 03/26/19 Rx Albuterol Sulfate [Proair Hfa] 2 puff INHALATION RT-Q6H PRN 03/26/19 03/26/19 History Calcium Gummies 500mg 500 mg PO BID 03/26/19 03/26/19 History Diphenox-Atrop 2.5-0.025 mg 1 tab PO QID 03/26/19 03/26/19 History [Lomotil] Magnesium Oxide [Adan] 500 mg PO DAILY 03/26/19 03/26/19 History Melatonin 10 mg PO HS PRN 03/26/19 03/26/19 History Mirtazapine [Remeron] 7.5 mg PO HS@1900 03/26/19 03/26/19 History Mupirocin 2% Oint [Bactroban 2% 1 applic TOPICAL DAILY PRN 03/26/19 03/26/19 History Oint] Nystatin 100,000 Unit/ml Susp 5 ml PO QID PRN 03/26/19 03/26/19 History [Mycostatin Oral Susp] Ondansetron HCl [Zofran] 4 mg PO BID PRN 03/26/19 03/26/19 History Pantoprazole [Protonix] 40 mg PO QAM 03/26/19 03/26/19 History Allergies Allergy/AdvReac Type Severity Reaction Status Date / Time Iodinated Contrast- Oral and Allergy Anaphylaxis Verified 03/26/19 17:23 IV Dye pregabalin [From Lyrica] Allergy Unknown Verified 03/26/19 17:23 rofecoxib [From Vioxx] Allergy Unknown Verified 03/26/19 17:23 Sulfa (Sulfonamide Allergy Rash/Hives Verified 03/26/19 17:23 Antibiotics) aspirin AdvReac Internal Verified 03/26/19 17:23 Bleeding timolol [Timolol] AdvReac Nausea & Verified 03/26/19 17:23 Vomiting Physical Exam Vitals: Vital Signs Temp Pulse Pulse Resp BP BP Pulse Ox 03/27/19 11:52 104 H 03/27/19 11:40 100 03/27/19 07:00 98.7 F 101 H 12 92/56 100 03/27/19 00:27 98.0 F 73 15 103/68 96 03/27/19 00:12 98.9 F 98 17 99/73 97 03/26/19 21:11 103 H 16 110/76 100 03/26/19 19:09 99.4 F 116 H 20 146/93 99 03/26/19 16:38 98.2 F 102 H 18 133/95 98 Intake and Output 03/26/19 03/27/19 03/27/19 22:59 06:59 14:59 Other: # Voids 0 Weight 44.906 kg 44.906 kg General appearance: The patient is alert, oriented, in no acute distress. HET: Head is normocephalic and atraumatic. Pupils are equal and reactive. Oropharynx is clear without lesions. Neck: Supple without lymphadenopathy. Trachea midline. Heart: S1 S2. Regular rate and rhythm. Lungs: No crackles or wheezes are heard. Abdomen: Soft, mild tenderness to the mid abdomen ostomy with flatus, nondistended with bowel sounds. No peritoneal signs. No palpable organomegaly or masses. Extremities: Normal skin color and turgor. No cyanosis, rash, ulceration, clubbing, or edema. Radial and pedal pulses are 2/4 bilaterally. Neurological: No focal deficits. Strength and sensation are grossly intact. Results CBC & Chem 7: 03/26/19 16:45 03/26/19 16:45 Labs: Abnormal Lab Results - Last 24 Hours (Table) 03/26/19 03/26/19 03/26/19 Range/Units 16:45 16:45 16:45 RBC 3.41 L (3.80-5.40) m/uL MCV 113.5 H D (80.0-100.0) fL MCH 36.6 H (25.0-35.0) pg RDW 19.1 H (11.5-15.5) % Plt Count 144 L (150-450) k/uL Lymphocytes # 0.8 L (1.0-4.8) k/uL Macrocytosis Marked A Carbon Dioxide 37 H (22-30) mmol/L Glucose 122 H (74-99) mg/dL AST 62 H (14-36) U/L ALT 57 H (9-52) U/L Total Protein 5.9 L (6.3-8.2) g/dL Amylase <30 L (30-110) U/L Urine Appearance Cloudy H (Clear) Urine pH 8.5 H (5.0-8.0) Urine Protein 3+ H (Negative) Ur Leukocyte Esterase Moderate H (Negative) Urine WBC 116 H (0-5) /hpf Urine WBC Clumps Occasional H (None) /hpf Urine Mucus Occasional H (None) /hpf Microbiology - Last 24 Hours (Table) 03/26/19 16:45 Urine Culture - Preliminary Urine,Clean Catch CT scan - abdomen: report reviewed (Dr. Almanzar) Assessment and Plan (1) Intractable abdominal pain Current Visit: Yes Status: Acute Code(s): R10.9 - UNSPECIFIED ABDOMINAL PAIN SNOMED Code(s): 98103826 (2) History of Crohn's disease Current Visit: Yes Status: Acute Code(s): Z87.19 - PERSONAL HISTORY OF OTHER DISEASES OF THE DIGESTIVE SYSTEM SNOMED Code(s): 615785336267606 (3) Nausea & vomiting Current Visit: Yes Status: Acute Code(s): R11.2 - NAUSEA WITH VOMITING, UNSPECIFIED SNOMED Code(s): 54814030 Plan: 1. Continue present medical therapy and slow advancement of diet. General surgery following closely. Continue with Humira on a weekly basis. Thank you for this kind referral and the opportunity to participate in the care of your patient. This consultation was discussed with Dr. Almanzar. The impression and plan of care have been directed as dictated.
--- NOTE | 2019-03-27 15:23 | P.HPIM ---
History of Present Illness H&P Date: 03/27/19 This is a 58-year-old female patient of Dr. James and Dr. Mistry with history of advanced COPD with extensive bullous changes with FEV1 of 19- 21%, chronic hypoxic respiratory failure on home O2, history of Crohn's colitis with ostomy, multiple bowel obstructions and multiple bowel surgeries, yperlipidemia, hypothyroidism, anemia, fibromyalgia, generalized anxiety disorder and recurrent depression. Patient is currently on transplant list at [facility] where she was initially evaluated for embolectomy but surgery was canceled. Patient relates that she has an appointment with [facility] on April 04 with the transplant team. Patient had sudden onset of abdominal pain, vomiting and diarrhea. Patient states on Monday she had cold sweats as well and symptoms all seemed to worsen by Monday. Her pain was in the low pelvis area and the mid area right of the umbilicus. She states she had increased output from her ostomy followed by no activity and was concerned. She also complains of generalized weakness. Regarding oh p.m., she states she has very limited amount that she has been trying to use sparingly. She did use this on Monday when diarrhea seemed to get worse. She has also cut down the dose from 2 mL sound to 1 mL. No chest pain or shortness of breath. Breathing status seems to be at her baseline. Patient presented to [facility] emergency center for evaluation was found to be afebrile, initial blood pressure 133/95, heart rate 102, pulse ox 98% on O2. White count is normal, hemoglobin 12.5, platelet count 144, blood sugar 122. Electrolytes are within normal limits, CO2 37, AST 62, ALT 57 with normal alkaline phosphatase and bilirubin. Amylase and lipase are normal. Urinalysis cloudy, moderate leukoesterase, wbc's 116. 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 Nonspecific small bowel findings. Lactic acid 1.8 Patient was started on Rocephin and blood cultures were obtained. Patient was given 1/2 L of IV fluid and admitted to the MedSur floor and consults with Dr. Aguayo and GI. Patient is currently nothing by mouth. Review of Systems All systems: negative Constitutional: Reports fatigue, Reports lethargy, Reports malaise, Reports poor appetite, Reports sweats, Reports weakness, Denies chills, Denies fever Eyes: denies blurred vision, denies pain Ears, nose, mouth and throat: Denies dysphagia, Denies headache, Denies sore throat, Denies vertigo Cardiovascular: Denies chest pain, Denies decreased exercise tolerance, Denies dyspnea on exertion, Denies leg edema, Denies shortness of breath, Denies syncope Respiratory: Reports home oxygen, Denies cough, Denies cough with sputum, Denies dyspnea, Denies excessive sputum Gastrointestinal: Reports abdominal pain, Reports bloating, Reports diarrhea, Reports loss of appetite, Reports nausea, Reports vomiting, Denies melena Genitourinary: Denies dysuria, Denies hematuria, Denies urgency, Denies urinary frequency Musculoskeletal: Denies frequent falls, Denies gait dysfunction, Denies muscle weakness, Denies myalgias Integumentary: Denies pruritus, Denies rash, Denies wounds Neurological: Denies aphasia, Denies change in mentation, Denies change in speech, Denies gait dysfunction, Denies numbness, Denies seizures, Denies vertigo, Denies weakness Psychiatric: Denies anxiety, Denies depression Endocrine: Denies fatigue, Denies weight change Past Medical History Past Medical History: COPD, Fibromyalgia, GERD/Reflux, GI Bleed, Osteoarthritis (OA), Pneumonia, Syncope Additional Past Medical History / Comment(s): Crohn's colitis, bowel obstructions, multiple bowel surgeries including total colectomy/ileostomy, severe COPD, chronic respiratory failure, home O2 3L/NC, bullous emphysema, R lung bleb R pneumothorax x3, L pneumothorax x1 and had bilateral pneumothorax 09/2018-acute respiratory failure/vented/cardiac arrest, tachycardia, hiatal hernia, lower GI bleeds, arthritis in multiple joints, osteoporosis, chronic pain, seasonal allergies, bilateral glaucoma and has had bilateral eye surgery for retinal tears/holes. History of Any Multi-Drug Resistant Organisms: None Reported Past Surgical History: Breast Surgery, Cholecystectomy, Hernia Repair, Hysterectomy, Orthopedic Surgery Additional Past Surgical History / Comment(s): Multiple bowel surgeries including total colectomy/ileostomy, ileostomy moved/repaired, R salpingoophorectomy due to ectopic , total hysterectomy, leep procedure, laparoscopy for endometriosis, L breast lumpectomy-benign, r breast core bx-benign, EGD/colonoscopies, bilateral thoravents, arthroscopic knee surgery on the right due to ACL and Meniscal tear, trach and peg tube-since removed. Past Anesthesia/Blood Transfusion Reactions: No Reported Reaction Past Psychological History: Anxiety, Depression Additional Psychological History / Comment(s): Pt is staying with her sister who has a one level home. Her spouse is staying between their home to care for the dogs and pt's sister's house. Pt uses 02 3l n/c atc, has nebulizer, walker. She is receiving PT at home thru [facility]. Smoking Status: Former smoker Past Alcohol Use History: None Reported Additional Past Alcohol Use History / Comment(s): Patient used to smoke 1 pack per day since she was 17 and smoked for 30 years and quit in January 2017. Past Drug Use History: None Reported - Past Family History Mother Family Medical History: Cancer, COPD, Hypertension Additional Family Medical History / Comment(s): Mother at age 83 from COPD and had osteoarthritis and skin cancer. Father Family Medical History: Cancer, CVA/TIA, Dementia, Diabetes Mellitus Additional Family Medical History / Comment(s): Father is 92 yrs old. He has had several TIAs and a CVA Brother(s) Family Medical History: Cancer Additional Family Medical History / Comment(s): Patient had 5 brothers and one of them from melanoma at age 41. Sister(s) History Unknown: Yes Family Medical History: No Reported History Additional Family Medical History / Comment(s): Patient has one sister. Patient has no children Medications and Allergies Home Medications Medication Instructions Recorded Confirmed Type Latanoprost Ophth [Xalatan 0.005%] 1 drop BOTH EYES HS 05/21/17 03/26/19 History Dicyclomine [Bentyl] 10 mg PO TID PRN 07/24/18 03/26/19 History Budesonide 1 mg INHALATION RT-BID PRN 09/27/18 03/26/19 History Gabapentin [Neurontin] 300 mg PO TID 09/27/18 03/26/19 History HYDROcodone/APAP 10-325MG [[place] 1 tab PO Q4H PRN 09/27/18 03/26/19 History 10-325] Opium Tincture 10mg/1ml 20 mg PO BID PRN 09/27/18 03/26/19 History Albuterol Nebulized [Ventolin 2.5 mg INHALATION RT-QID PRN #120 11/10/18 03/26/19 Rx Nebulized] nebu Metoprolol Tartrate [Lopressor] 50 mg PO TID #90 tab 11/10/18 03/26/19 Rx Aclidinium [place] [[place]za 1 puff INHALATION RT-BID 11/29/18 03/26/19 History Pressair] Fluticasone/Vilanterol [Breo 1 puff INHALATION RT-DAILY 11/29/18 03/26/19 History Ellipta 200-25 Mcg INH] Guaifen/Phenyleph/Acetaminophn 10 ml PO Q6H PRN 11/29/18 03/26/19 History [Mucinex Sinus-Max Severe Liq] Mercaptopurine [Purinethol] 50 mg PO BID 11/29/18 03/26/19 History busPIRone HCl [Buspar] 10 mg PO BID PRN 11/29/18 03/26/19 History ALPRAZolam [Xanax] 0.25 mg PO DAILY PRN 12/28/18 03/26/19 History Adalimumab [Humira(Cf) Pen] 40 mg SQ Q7D 12/28/18 03/26/19 History DULoxetine HCL [Cymbalta] 30 mg PO DAILY 12/28/18 03/26/19 History Sucralfate [Carafate] 1 gm PO TID #900 ml 12/31/18 03/26/19 Rx Hyoscyamine Sulfate [Levsin] 0.125 mg PO Q4H PRN #90 tab 02/05/19 03/26/19 Rx Albuterol Sulfate [Proair Hfa] 2 puff INHALATION RT-Q6H PRN 03/26/19 03/26/19 History Calcium Gummies 500mg 500 mg PO BID 03/26/19 03/26/19 History Diphenox-Atrop 2.5-0.025 mg 1 tab PO QID 03/26/19 03/26/19 History [Lomotil] Magnesium Oxide [Adan] 500 mg PO DAILY 03/26/19 03/26/19 History Melatonin 10 mg PO HS PRN 03/26/19 03/26/19 History Mirtazapine [Remeron] 7.5 mg PO HS@1900 03/26/19 03/26/19 History Mupirocin 2% Oint [Bactroban 2% 1 applic TOPICAL DAILY PRN 03/26/19 03/26/19 History Oint] Nystatin 100,000 Unit/ml Susp 5 ml PO QID PRN 03/26/19 03/26/19 History [Mycostatin Oral Susp] Ondansetron HCl [Zofran] 4 mg PO BID PRN 03/26/19 03/26/19 History Pantoprazole [Protonix] 40 mg PO QAM 03/26/19 03/26/19 History Allergies Allergy/AdvReac Type Severity Reaction Status Date / Time Iodinated Contrast- Oral and Allergy Anaphylaxis Verified 03/26/19 17:23 IV Dye pregabalin [From Lyrica] Allergy Unknown Verified 03/26/19 17:23 rofecoxib [From Vioxx] Allergy Unknown Verified 03/26/19 17:23 Sulfa (Sulfonamide Allergy Rash/Hives Verified 03/26/19 17:23 Antibiotics) aspirin AdvReac Internal Verified 03/26/19 17:23 Bleeding timolol [Timolol] AdvReac Nausea & Verified 03/26/19 17:23 Vomiting Physical Exam Vitals: Vital Signs Temp Pulse Pulse Resp BP BP Pulse Ox 03/27/19 07:00 98.7 F 101 H 12 92/56 100 03/27/19 00:27 98.0 F 73 15 103/68 96 03/27/19 00:12 98.9 F 98 17 99/73 97 03/26/19 21:11 103 H 16 110/76 100 03/26/19 19:09 99.4 F 116 H 20 146/93 99 03/26/19 16:38 98.2 F 102 H 18 133/95 98 Intake and Output 03/26/19 03/27/19 03/27/19 22:59 06:59 14:59 Other: # Voids 0 Weight 44.906 kg General appearance: mild distress, thin - EENT Eyes: anicteric sclerae, EOMI, PERRLA, no ptosis, no scleral icterus, normal appearance ENT: hearing grossly normal, normal oropharynx, no thrush - Neck Neck: no lymphadenopathy, normal ROM, no rigidity, no stridor Carotids: bilateral: upstroke normal Thyroid: bilateral: normal size - Respiratory Respiratory: bilateral: diminished, wheezing, prolonged expiration, negative: dullness, rales, rhonchi - Cardiovascular Rhythm: regular Heart sounds: normal: S1, S2 Abnormal Heart Sounds: systolic murmur, no S3 Gallop - Gastrointestinal General gastrointestinal: hyperactive bowel sounds, soft, tenderness to the suprapubic area and right of the umbilicus (ileostomy bag in place.) - Integumentary Integumentary: normal, normal turgor - Neurologic Neurologic: CNII-XII intact - Musculoskeletal Musculoskeletal: generalized weakness, strength equal bilaterally - Psychiatric Psychiatric: A&O x's 3, no appropriate affect, intact judgment & insight Results CBC & Chem 7: 03/26/19 16:45 03/26/19 16:45 Labs: Abnormal Lab Results - Last 24 Hours (Table) 03/26/19 03/26/19 03/26/19 Range/Units 16:45 16:45 16:45 RBC 3.41 L (3.80-5.40) m/uL MCV 113.5 H D (80.0-100.0) fL MCH 36.6 H (25.0-35.0) pg RDW 19.1 H (11.5-15.5) % Plt Count 144 L (150-450) k/uL Lymphocytes # 0.8 L (1.0-4.8) k/uL Macrocytosis Marked A Carbon Dioxide 37 H (22-30) mmol/L Glucose 122 H (74-99) mg/dL AST 62 H (14-36) U/L ALT 57 H (9-52) U/L Total Protein 5.9 L (6.3-8.2) g/dL Amylase <30 L (30-110) U/L Urine Appearance Cloudy H (Clear) Urine pH 8.5 H (5.0-8.0) Urine Protein 3+ H (Negative) Ur Leukocyte Esterase Moderate H (Negative) Urine WBC 116 H (0-5) /hpf Urine WBC Clumps Occasional H (None) /hpf Urine Mucus Occasional H (None) /hpf Microbiology - Last 24 Hours (Table) 03/26/19 16:45 Urine Culture - Preliminary Urine,Clean Catch Thrombosis Risk Factor Assmnt - DVT/VTE Prophylaxis DVT/VTE Prophylaxis: Pharmacologic Prophylaxis ordered - Choose All That Apply Each Factor Represents 1 point: Abnormal pulmonary function (COPD), Age 41-60 years Thrombosis Risk Factor Assessment Total Risk Factor Score: 2 Thrombosis Risk Factor Assessment Level: Low Risk Assessment and Plan Plan: 1. Acute abdominal pain along with vomiting and intermittent ostomy output. C onsult with GI and general surgery. Diet is to be advanced. Continue Lomotil, Bentyl 2. Advanced COPD with multiple ruptured bulla and spontaneous pneumothorax in the past, stable. Patient has appointment in March with [facility] transplant team. 3. Chronic hypoxemic and hypercapneic respiratory failure requiring mechanical ventilation in the past and Trach which has since removed. Patient follows with Dr. Mistry on a regular basis. Patient has home O2 at 3 L nasal cannula. 4. History of Crohn's colitis status post subtotal colectomy and ostomy. Patient is to continue Humira, mercaptopurine, Levsin. 5. Moderate protein calorie malnutrition. we will continue with protein supplement. 6. H/O critical illness myopathy post IVIG infusion. 7. Generalized anxiety disorder. Continue BuSpar to 10 mg orally twice every day and Cymbalta 30 mg daily. 8. Fibromyalgia with bilateral neuropathy. we will continue with Gabapentin 300 mg orally tid. 9. Sinus tachycardia. we will continue with Metoprolol 50 mg orally tid. 10. Vitamin D deficiency. 11. B12 deficiency. we will continue with B12 1000 mcg sc q month. 12. Glaucoma. we will continue with Xalatan. 13. Hypomagnesemia. will continue with magnesium oxide. 14. Urinary tract infection. Continue Rocephin. Urine culture in progress. 15. DVT prophylaxis. we will continue with Lovenox 40 mg subcutaneously every day. 16. GI prophylaxis. Continue Carafate. Admit to inpatient. Estimated length of stay 2 midnights. CODE STATUS: Full code. Discharge plan: Return home Impression and plan of care have been directed as dictated by the signing physician. Gaby Rothman nurse practitioner acting as scribe for signing physician.
[2019-03-27] MEDS: METOPROLOL TARTRATE 50 MG TAB PO SCH ×2 (15:28→21:15)
[2019-03-27] MEDS: GABAPENTIN 300 MG CAP PO SCH ×2 (15:28→21:23)
[2019-03-27] MEDS: SUCRALFATE 1 GM TAB PO SCH ×2 (15:29→21:23)
[2019-03-27] MEDS: MIRTAZAPINE 15 MG TAB PO SCH (18:27)
[2019-03-27] MEDS: BUDESONIDE 1 MG/2 ML NEBU INHALATION PRN (20:04)
[2019-03-27] MEDS: MELATONIN 5 MG TABLET PO PRN (21:23)
[2019-03-27] MEDS: HEPARIN SODIUM,PORCINE 5,000 UNIT/ML 1 ML VIAL SQ SCH (21:23)
[2019-03-27] MEDS: LATANOPROST 0.005% OPHTH DROPS 2.5 ML BTL BOTH EYES SCH (21:23)
[2019-03-27] MEDS: MERCAPTOPURINE 50 MG TAB PO SCH (21:23)
[2019-03-28] MEDS: HYDROmorphone 0.5 MG/0.5 ML SYRINGE IVP PRN ×7 (00:44→23:40)
[2019-03-28] MEDS: SODIUM CHLORIDE 0.9% 1,000 ML IV SCH ×3 (06:47→11:36)
[2019-03-28] MEDS: METOPROLOL TARTRATE 50 MG TAB PO SCH ×3 (07:58→21:31)
[2019-03-28] MEDS: GABAPENTIN 300 MG CAP PO SCH ×3 (07:58→21:32)
[2019-03-28] MEDS: MERCAPTOPURINE 50 MG TAB PO SCH ×2 (07:58→20:03)
[2019-03-28] MEDS: SUCRALFATE 1 GM TAB PO SCH ×3 (07:58→21:32)
[2019-03-28] MEDS: MAGNESIUM OXIDE 400 MG TAB PO SCH (07:58)
[2019-03-28] MEDS: DULoxetine HCL 30 MG CAPSULE.DR PO SCH (07:58)
[2019-03-28] MEDS: HEPARIN SODIUM,PORCINE 5,000 UNIT/ML 1 ML VIAL SQ SCH ×2 (07:59→20:03)
[2019-03-28] MEDS: ONDANSETRON 4 MG/2 ML VIAL IVP PRN ×2 (08:04→17:53)
[2019-03-28] MEDS: IPRATROPIUM-ALBUTEROL 3 ML NEB INHALATION SCH ×4 (09:00→20:13)
[2019-03-28] MEDS: HYDROcodone/APAP 10-325MG 1 EACH TAB PO PRN ×3 (09:29→20:03)
--- NOTE | 2019-03-28 11:34 | P.PN ---
Subjective Progress Note Date: 03/28/19 CHIEF COMPLAINT: abdominal pain HISTORY OF PRESENT ILLNESS: Patient examined at the bedside. She reports improvement in abdominal pain. She tolerated clear liquid diet yesterday. Reports some nausea this morning that has improved. Ostomy with stool noted. PHYSICAL EXAM: VITAL SIGNS: Reviewed. GENERAL: Well-developed in no acute distress. HEENT: No sclera icterus. Extraocular movements grossly intact. Moist buccal mucosa. Head is atraumatic, normocephalic. ABDOMEN: Soft. Nondistended. Tenderness palpation of suprapubic region. P ositive bowel sounds. Ostomy with stool noted. NEUROLOGIC: Alert and oriented. Cranial nerves II through XII grossly intact. ASSESSMENT: 1. Abdominal pain and nausea x 2 days 2. History of Crohn's disease 3. History of multiple bowel surgeries PLAN: Advance diet to full liquids No surgical intervention recommended Nurse practitioner note has been reviewed by physician. Signing provider agrees with the documented findings, assessment, and plan of care. Objective - Vital Signs Vital signs: Vital Signs Temp 98.2 F 03/28/19 07:11 Pulse 112 H 03/28/19 09:13 Resp 15 03/28/19 07:11 BP 115/77 03/28/19 07:11 Pulse Ox 100 03/28/19 07:11 Intake & Output 03/27/19 03/28/19 03/28/19 18:59 06:59 18:59 Intake Total 700 450 0 Output Total 400 Balance 300 450 0 Weight 44.906 kg Intake: Intake, IV Titration 450 Amount Sodium Chloride 0.9% 1, 450 000 ml @ 100 mls/hr IV . Q10H [facility] Rx#:[id number] Oral 700 0 Output: Urine 200 Stool 200 Other: # Voids 1 1 - Labs CBC & Chem 7: 03/26/19 16:45 03/26/19 16:45 Labs: Microbiology - Last 24 Hours (Table) 03/26/19 16:45 Urine Culture - Preliminary Urine,Clean Catch Gram Neg Bacilli 03/26/19 20:50 Blood Culture - Preliminary Blood No Growth after 24 hours
[2019-03-28] MEDS: PANTOPRAZOLE 40 MG/10 ML VIAL IVP SCH (11:35)
--- NOTE | 2019-03-28 15:02 | P.PN ---
Subjective Progress Note Date: 03/28/19 This is a 58-year-old female patient of Dr. James and Dr. Mistry with history of advanced COPD with extensive bullous changes with FEV1 of 19- 21%, chronic hypoxic respiratory failure on home O2, history of Crohn's colitis with ostomy, multiple bowel obstructions and multiple bowel surgeries, y perlipidemia, hypothyroidism, anemia, fibromyalgia, generalized anxiety disorder and recurrent depression. Patient is currently on transplant list at [facility] where she was initially evaluated for embolectomy but surgery was canceled. Patient relates that she has an appointment with [facility] on April 04 with the transplant team. Patient had sudden onset of abdominal pain, vomiting and diarrhea. Patient states on Monday she had cold sweats as well and symptoms all seemed to worsen by Monday. Her pain was in the low pelvis area and the mid area right of the umbilicus. She states she had increased output from her ostomy followed by no activity and was concerned. She also complains of generalized weakness. Regarding oh p.m., she states she has very limited amount that she has been trying to use sparingly. She did use this on Monday when diarrhea seemed to get worse. She has also cut down the dose from 2 mL sound to 1 mL. No chest pain or shortness of breath. Breathing status seems to be at her baseline. Patient presented to [facility] emergency center for evaluation was found to be afebrile, initial blood pressure 133/95, heart rate 102, pulse ox 98% on O2. White count is normal, hemoglobin 12.5, platelet count 144, blood sugar 122. Electrolytes are within normal limits, CO2 37, AST 62, ALT 57 with normal alkaline phosphatase and bilirubin. Amylase and lipase are normal. Urinalysis cloudy, moderate leukoesterase, wbc's 116. 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 Nonspecific small bowel findings. Lactic acid 1.8 Patient was started on Rocephin and blood cultures were obtained. Patient was given 1/2 L of IV fluid and admitted to the MedSur floor and consults with Dr. Aguayo and GI. Patient is currently nothing by mouth. 03/28: This morning, patient is complaining of heartburn. She is on Carafate which will also adding Protonix. Patient is on clear liquid diets and complaining of nausea especially when she tried to eat this morning. IV fluids will be decreased to 50 mL per hour. Diet has been advanced to full liquid diet.C. difficile toxin is negative. Repeat lab work for tomorrow. Objective - Vital Signs Vital signs: Vital Signs Temp 98.2 F 03/28/19 07:11 Pulse 94 03/28/19 07:11 Resp 15 03/28/19 07:11 BP 115/77 03/28/19 07:11 Pulse Ox 100 03/28/19 07:11 Intake & Output 03/27/19 03/28/19 03/28/19 18:59 06:59 18:59 Intake Total 700 450 Output Total 400 Balance 300 450 Weight 44.906 kg Intake: Intake, IV Titration 450 Amount Sodium Chloride 0.9% 1, 450 000 ml @ 100 mls/hr IV . Q10H [facility] Rx#:[id number] Oral 700 Output: Urine 200 Stool 200 Other: # Voids 1 1 - Exam Review of Systems Constitutional: Reports fatigue, Reports lethargy, Reports malaise, Reports poor appetite, Reports sweats, Reports weakness, Denies chills, Denies fever Eyes: denies blurred vision, denies pain Ears, nose, mouth and throat: Denies dysphagia, Denies headache, Denies sore throat, Denies vertigo Cardiovascular: Denies chest pain, Denies decreased exercise tolerance, Denies dyspnea on exertion, Denies leg edema, Denies shortness of breath, Denies syncope Respiratory: Reports home oxygen, Denies cough, Denies cough with sputum, Denies dyspnea, Denies excessive sputum Gastrointestinal: Reports abdominal pain, Reports bloating, Reports diarrhea, Reports loss of appetite, Reports nausea, denies vomiting, Denies melena, reports gastric reflux Genitourinary: Denies dysuria, Denies hematuria, Denies urgency, Denies urinary frequency Musculoskeletal: Denies frequent falls, Denies gait dysfunction, Denies muscle weakness, Denies myalgias Integumentary: Denies pruritus, Denies rash, Denies wounds Neurological: Denies aphasia, Denies change in mentation, Denies change in speech, Denies gait dysfunction, Denies numbness, Denies seizures, Denies vertigo, Denies weakness Psychiatric: Denies anxiety, Denies depression Endocrine: Denies fatigue, Denies weight change General appearance: mild distress secondary to heartburn, thin - EENT Eyes: anicteric sclerae, EOMI, PERRLA, no ptosis, no scleral icterus, normal appearance ENT: hearing grossly normal, normal oropharynx, no thrush - Neck Neck: no lymphadenopathy, normal ROM, no rigidity, no stridor Carotids: bilateral: upstroke normal Thyroid: bilateral: normal size - Respiratory Respiratory: bilateral: diminished, wheezing, prolonged expiration, negative: dullness, rales, rhonchi - Cardiovascular Rhythm: regular Heart sounds: normal: S1, S2 Abnormal Heart Sounds: systolic murmur, no S3 Gallop - Gastrointestinal General gastrointestinal: hyperactive bowel sounds, soft, tenderness to the suprapubic area and right of the umbilicus (ileostomy bag in place.) - Integumentary Integumentary: normal, normal turgor - Neurologic Neurologic: CNII-XII intact - Musculoskeletal Musculoskeletal: generalized weakness, strength equal bilaterally - Psychiatric Psychiatric: A&O x's 3, no appropriate affect, intact judgment & insight - Labs CBC & Chem 7: 03/26/19 16:45 03/26/19 16:45 Labs: Microbiology - Last 24 Hours (Table) 03/26/19 16:45 Urine Culture - Preliminary Urine,Clean Catch Gram Neg Bacilli 03/26/19 20:50 Blood Culture - Preliminary Blood No Growth after 24 hours Assessment and Plan Plan: 1. Acute abdominal pain along with vomiting and intermittent ostomy output. Consult with GI and general surgery. Diet advanced to full liquids. Continue Lomotil, Bentyl 2. Advanced COPD with multiple ruptured bulla and spontaneous pneumothorax in the past, stable. Patient has appointment in March with [facility] transplant team. 3. Chronic hypoxemic and hypercapneic respiratory failure requiring mechanical ventilation in the past and Trach which has since removed. Patient follows with Dr. Mistry on a regular basis. Patient has home O2 at 3 L nasal cannula. 4. History of Crohn's colitis status post subtotal colectomy and ostomy. Patient is to continue Humira, mercaptopurine, Levsin. 5. Moderate protein calorie malnutrition. we will continue with protein supplement. 6. H/O critical illness myopathy post IVIG infusion. 7. Generalized anxiety disorder. Continue BuSpar to 10 mg orally twice every day and Cymbalta 30 mg daily. 8. Fibromyalgia with bilateral neuropathy. we will continue with Gabapentin 300 mg orally tid. 9. Sinus tachycardia. we will continue with Metoprolol 50 mg orally tid. 10. Vitamin D deficiency. 11. B12 deficiency. we will continue with B12 1000 mcg sc q month. 12. Glaucoma. we will continue with Xalatan. 13. Hypomagnesemia. will continue with magnesium oxide. 14. Urinary tract infection. Continue Rocephin. Urine culture in progress. 15. DVT prophylaxis. we will continue with Lovenox 40 mg subcutaneously every day. 16. GI prophylaxis and gastroesophageal reflux disease. Add Protonix. Continue Carafate. CODE STATUS: Full code. Discharge plan: Return home Impression and plan of care have been directed as dictated by the signing physician. Gaby Rothman nurse practitioner acting as scribe for signing physician.
--- NOTE | 2019-03-28 15:40 | P.PN ---
Subjective Progress Note Date: 03/28/19 Principal diagnosis: Abdominal pain Feeling better. Abdominal pain improved. Ostomy function. Tolerating full liquids. Afebrile. Objective - Vital Signs Vital signs: Vital Signs Temp 98.6 F 03/28/19 14:40 Pulse 105 H 03/28/19 14:40 Resp 15 03/28/19 14:40 BP 105/68 03/28/19 14:40 Pulse Ox 98 03/28/19 14:40 Intake & Output 03/27/19 03/28/19 03/28/19 18:59 06:59 18:59 Intake Total 700 450 680 Output Total 400 Balance 300 450 680 Weight 44.906 kg Intake: Intake, IV Titration 450 500 Amount Sodium Chloride 0.9% 1, 450 300 000 ml @ 100 mls/hr IV . Q10H [facility] Rx#:[id number] Sodium Chloride 0.9% 1, 150 000 ml @ 50 mls/hr IV . Q20H [facility] Rx#:[id number] cefTRIAXone 1 gm In 50 Sodium Chloride 0.9% 50 ml @ 100 mls/hr IVPB Q24HR [facility] Rx#:[id number] Oral 700 180 Output: Urine 200 Stool 200 Other: # Voids 1 1 - Exam General appearance: The patient is alert, oriented, in no acute distress. HET: Head is normocephalic and atraumatic. Pupils are equal and reactive. Oropharynx is clear without lesions. Neck: Supple without lymphadenopathy. Trachea midline. Heart: S1 S2. Regular rate and rhythm. Lungs: No crackles or wheezes are heard. Abdomen: Soft, mild tenderness across the midabdomen ostomy function with stool and air nondistended with bowel sounds. No peritoneal signs. No palpable organomegaly or masses. Extremities: Normal skin color and turgor. No cyanosis, rash, ulceration, clubbing, or edema. Radial and pedal pulses are 2/4 bilaterally. Neurological: No focal deficits. Strength and sensation are grossly intact. - Labs CBC & Chem 7: 03/26/19 16:45 03/26/19 16:45 Labs: Microbiology - Last 24 Hours (Table) 03/26/19 16:45 Urine Culture - Preliminary Urine,Clean Catch Gram Neg Bacilli 03/26/19 20:50 Blood Culture - Preliminary Blood No Growth after 24 hours Assessment and Plan (1) Intractable abdominal pain Current Visit: Yes Status: Acute Code(s): R10.9 - UNSPECIFIED ABDOMINAL PAIN SNOMED Code(s): 96214423 (2) History of Crohn's disease Current Visit: Yes Status: Acute Code(s): Z87.19 - PERSONAL HISTORY OF OTHER DISEASES OF THE DIGESTIVE SYSTEM SNOMED Code(s): 903553599773580 (3) Nausea & vomiting Current Visit: Yes Status: Acute Code(s): R11.2 - NAUSEA WITH VOMITING, UNSPECIFIED SNOMED Code(s): 02114903 Plan: 1. Continue present medical therapy and slow advancement of diet. General surgery following closely. Continue with Humira on a weekly basis. We'll follow on an as-needed basis. Assessment and plan a care discussed with Dr. Almanzar
[2019-03-28] MEDS: LATANOPROST 0.005% OPHTH DROPS 2.5 ML BTL BOTH EYES SCH (20:03)
[2019-03-28] MEDS: MIRTAZAPINE 15 MG TAB PO SCH (20:03)
[2019-03-28] MEDS: BUDESONIDE 1 MG/2 ML NEBU INHALATION PRN (20:13)
[2019-03-28] MEDS: MELATONIN 5 MG TABLET PO PRN (21:31)
[2019-03-29] MEDS: HYDROcodone/APAP 10-325MG 1 EACH TAB PO PRN ×3 (02:22→21:47)
[2019-03-29] MEDS: IPRATROPIUM-ALBUTEROL 3 ML NEB INHALATION SCH ×4 (07:55→20:07)
[2019-03-29] MEDS: BUDESONIDE 1 MG/2 ML NEBU INHALATION PRN ×2 (07:55→20:06)
[2019-03-29] MEDS: CEFEPIME 2 GM in SODIUM CHLORIDE 0.9% 100 ML IVPB SCH ×2 (08:21→20:11)
[2019-03-29] MEDS: METOPROLOL TARTRATE 50 MG TAB PO SCH ×3 (08:22→20:12)
[2019-03-29] MEDS: MERCAPTOPURINE 50 MG TAB PO SCH ×2 (08:22→20:13)
[2019-03-29] MEDS: GABAPENTIN 300 MG CAP PO SCH ×3 (08:22→20:12)
[2019-03-29] MEDS: HEPARIN SODIUM,PORCINE 5,000 UNIT/ML 1 ML VIAL SQ SCH ×2 (08:22→20:12)
[2019-03-29] MEDS: SUCRALFATE 1 GM TAB PO SCH ×3 (08:22→20:12)
[2019-03-29] MEDS: DULoxetine HCL 30 MG CAPSULE.DR PO SCH (08:22)
[2019-03-29] MEDS: PANTOPRAZOLE 40 MG/10 ML VIAL IVP SCH (08:23)
[2019-03-29] MEDS: HYDROmorphone 0.5 MG/0.5 ML SYRINGE IVP PRN ×4 (08:23→20:13)
[2019-03-29] MEDS: MAGNESIUM OXIDE 400 MG TAB PO SCH (08:23)
[2019-03-29 08:29] LABS: ALT 76 U/L (9-52); AST 44 U/L (14-36); African American GFR (CKD) >90 (>60 ml/min/1.73 sqM); Albumin 2.5 g/dL (3.5-5.0); Alkaline Phosphatase 70 U/L (38-126); Anion Gap 1 mmol/L; Blood Urea Nitrogen 5 mg/dL (7-17); Calcium 7.2 mg/dL (8.4-10.2); Carbon Dioxide 32 mmol/L (22-30); Chloride 109 mmol/L (98-107); Glucose 101 mg/dL (74-99); Potassium 3.7 mmol/L (3.5-5.1); Sodium 142 mmol/L (137-145); Total Bilirubin 0.1 mg/dL (0.2-1.3); Total Protein 4.5 g/dL (6.3-8.2)
[2019-03-29 08:49] LABS: Anisocytosis Slight; HCT 22.9 % (34.0-46.0); Hypochromasia Marked; MCH 36.3 pg (25.0-35.0); MCHC 31.4 g/dL (31.0-37.0); MCV 115.7 fL (80.0-100.0); Macrocytosis Marked; Mean Platelet Volume 9.1; Poikilocytosis Slight; RBC 1.98 m/uL (3.80-5.40); RDW 18.4 % (11.5-15.5); WBC 1.9 k/uL (3.8-10.6)
[2019-03-29 08:51] LABS: HGB 7.2 gm/dL (11.4-16.0)
[2019-03-29 10:03] LABS: Platelet Count 94 k/uL (150-450)
--- NOTE | 2019-03-29 11:22 | P.PN ---
<Manda Kovacs Gary - Last Filed: 03/29/19 11:18> Subjective Progress Note Date: 03/29/19 CHIEF COMPLAINT: abdominal pain HISTORY OF PRESENT ILLNESS: Patient examined at the bedside. Denies abdominal pain. Ostomy with stool. Tolerating full liquid diet. Requesting diet to be advanced. Hemoglobin 7.2. Previously 12.5. No bleeding noted. Patients hemoglobin usually runs 7-9 looking back at trends. PHYSICAL EXAM: VITAL SIGNS: Reviewed. GENERAL: Well-developed in no acute distress. HEENT: No sclera icterus. Extraocular movements grossly intact. Moist buccal mucosa. Head is atraumatic, normocephalic. ABDOMEN: Soft. Nondistended. Mild tenderness with palpation of suprapubic region. Positive bowel sounds. Ostomy with stool noted. NEUROLOGIC: Alert and oriented. Cranial nerves II through XII grossly intact. ASSESSMENT: 1. Abdominal pain and nausea x 2 days 2. History of Crohn's disease 3. History of multiple bowel surgeries PLAN: Advance diet to regular diet No surgical intervention recommended We will sign off. Please re-consult if needed Nurse practitioner note has been reviewed by physician. Signing provider agrees with the documented findings, assessment, and plan of care. Objective - Vital Signs Vital signs: Vital Signs Temp 97.6 F 03/29/19 07:00 Pulse 88 03/29/19 08:11 Resp 16 03/29/19 08:05 BP 118/75 03/29/19 07:00 Pulse Ox 99 03/29/19 07:00 Intake & Output 03/28/19 03/29/19 03/29/19 18:59 06:59 18:59 Intake Total 860 120 Output Total 200 Balance 860 120 -200 Intake: Intake, IV Titration 500 120 Amount Sodium Chloride 0.9% 1, 300 000 ml @ 100 mls/hr IV . Q10H [facility] Rx#:[id number] Sodium Chloride 0.9% 1, 150 120 000 ml @ 50 mls/hr IV . Q20H [facility] Rx#:[id number] cefTRIAXone 1 gm In 50 Sodium Chloride 0.9% 50 ml @ 100 mls/hr IVPB Q24HR [facility] Rx#:[id number] Oral 360 Output: Stool 200 Other: # Voids 1 - Labs CBC & Chem 7: 03/29/19 07:39 03/29/19 07:39 Labs: Abnormal Lab Results - Last 24 Hours (Table) 03/29/19 03/29/19 Range/Units 07:39 07:39 WBC 1.9 L (3.8-10.6) k/uL RBC 1.98 L (3.80-5.40) m/uL Hgb 7.2 L D (11.4-16.0) gm/dL Hct 22.9 L (34.0-46.0) % MCV 115.7 H (80.0-100.0) fL MCH 36.3 H (25.0-35.0) pg RDW 18.4 H (11.5-15.5) % Plt Count 94 L (150-450) k/uL Macrocytosis Marked A Chloride 109 H (98-107) mmol/L Carbon Dioxide 32 H (22-30) mmol/L BUN 5 L (7-17) mg/dL Creatinine 0.51 L (0.52-1.04) mg/dL Glucose 101 H (74-99) mg/dL Calcium 7.2 L (8.4-10.2) mg/dL Total Bilirubin 0.1 L (0.2-1.3) mg/dL AST 44 H (14-36) U/L ALT 76 H (9-52) U/L Total Protein 4.5 L (6.3-8.2) g/dL Albumin 2.5 L (3.5-5.0) g/dL Microbiology - Last 24 Hours (Table) 03/26/19 20:50 Blood Culture - Preliminary Blood No Growth after 48 hours 03/26/19 16:45 Urine Culture - Final Urine,Clean Catch Enterobacter cloacae <Fernando Aguayo - Last Filed: 03/29/19 13:33> Subjective As above. The patient's pain is lower midabdomen. Overall improved. Tolerating diet. Still having loose stools. Patient's labs today showed a decrease in hemoglobin, white blood cell count, and platelets. Defer workup of pancytopenia to primary service however reorder CBC at this time. Possible dilution. Defer management of the patient's Crohn's to GI. We'll sign off. Please call if needed. Objective - Vital Signs Vital signs: Vital Signs Temp 97.6 F 03/29/19 07:00 Pulse 84 03/29/19 12:00 Resp 16 03/29/19 08:05 BP 118/75 03/29/19 07:00 Pulse Ox 99 03/29/19 07:00 Intake & Output 03/28/19 03/29/19 03/29/19 18:59 06:59 18:59 Intake Total 860 120 Output Total 200 Balance 860 120 -200 Intake: Intake, IV Titration 500 120 Amount Sodium Chloride 0.9% 1, 300 000 ml @ 100 mls/hr IV . Q10H [facility] Rx#:[id number] Sodium Chloride 0.9% 1, 150 120 000 ml @ 50 mls/hr IV . Q20H [facility] Rx#:[id number] cefTRIAXone 1 gm In 50 Sodium Chloride 0.9% 50 ml @ 100 mls/hr IVPB Q24HR [facility] Rx#:[id number] Oral 360 Output: Stool 200 Other: # Voids 1 - Labs CBC & Chem 7: 03/29/19 07:39 03/29/19 07:39 Labs: Abnormal Lab Results - Last 24 Hours (Table) 03/29/19 03/29/19 Range/Units 07:39 07:39 WBC 1.9 L (3.8-10.6) k/uL RBC 1.98 L (3.80-5.40) m/uL Hgb 7.2 L D (11.4-16.0) gm/dL Hct 22.9 L (34.0-46.0) % MCV 115.7 H (80.0-100.0) fL MCH 36.3 H (25.0-35.0) pg RDW 18.4 H (11.5-15.5) % Plt Count 94 L (150-450) k/uL Macrocytosis Marked A Chloride 109 H (98-107) mmol/L Carbon Dioxide 32 H (22-30) mmol/L BUN 5 L (7-17) mg/dL Creatinine 0.51 L (0.52-1.04) mg/dL Glucose 101 H (74-99) mg/dL Calcium 7.2 L (8.4-10.2) mg/dL Total Bilirubin 0.1 L (0.2-1.3) mg/dL AST 44 H (14-36) U/L ALT 76 H (9-52) U/L Total Protein 4.5 L (6.3-8.2) g/dL Albumin 2.5 L (3.5-5.0) g/dL Microbiology - Last 24 Hours (Table) 03/26/19 20:50 Blood Culture - Preliminary Blood No Growth after 48 hours 03/26/19 16:45 Urine Culture - Final Urine,Clean Catch Enterobacter cloacae
--- NOTE | 2019-03-29 13:57 | P.PN ---
Subjective Progress Note Date: 03/29/19 This is a 58-year-old female patient of Dr. James and Dr. Mistry with history of advanced COPD with extensive bullous changes with FEV1 of 19- 21%, chronic hypoxic respiratory failure on home O2, history of Crohn's colitis with ostomy, multiple bowel obstructions and multiple bowel surgeries, y perlipidemia, hypothyroidism, anemia, fibromyalgia, generalized anxiety disorder and recurrent depression. Patient is currently on transplant list at [facility] where she was initially evaluated for embolectomy but surgery was canceled. Patient relates that she has an appointment with [facility] on April 04 with the transplant team. Patient had sudden onset of abdominal pain, vomiting and diarrhea. Patient states on Monday she had cold sweats as well and symptoms all seemed to worsen by Monday. Her pain was in the low pelvis area and the mid area right of the umbilicus. She states she had increased output from her ostomy followed by no activity and was concerned. She also complains of generalized weakness. Regarding oh p.m., she states she has very limited amount that she has been trying to use sparingly. She did use this on Monday when diarrhea seemed to get worse. She has also cut down the dose from 2 mL sound to 1 mL. No chest pain or shortness of breath. Breathing status seems to be at her baseline. Patient presented to [facility] for evaluation was found to be afebrile, initial blood pressure 133/95, heart rate 102, pulse ox 98% on O2. White count is normal, hemoglobin 12.5, platelet count 144, blood sugar 122. Electrolytes are within normal limits, CO2 37, AST 62, ALT 57 with normal alkaline phosphatase and bilirubin. Amylase and lipase are normal. Urinalysis cloudy, moderate leukoesterase, wbc's 116. 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 Nonspecific small bowel findings. Lactic acid 1.8 Patient was started on Rocephin and blood cultures were obtained. Patient was given 1/2 L of IV fluid and admitted to the [facility] floor and consults with Dr. Aguayo and GI. Patient is currently nothing by mouth. 03/28: This morning, patient is complaining of heartburn. She is on Carafate which will also adding Protonix. Patient is on clear liquid diets and complaining of nausea especially when she tried to eat this morning. IV fluids will be decreased to 50 mL per hour. Diet has been advanced to full liquid diet.C. difficile toxin is negative. Repeat lab work for tomorrow. 03/29: Patient states that she made it through the night with only continue her ostomy bag once. She complains of a burning type pain that occurs in one spot and then goes away quickly. She states she had 4 episodes of that during the night. Patient states that her heartburn is improved. In general she is feeling generalized malaise. Dr. Dubon has been added regarding urine culture positive for Enterobacter and patient has been placed on cefepime. Diet advanced to regular for lunch. Anticipate probable discharge home tomorrow. Objective - Vital Signs Vital signs: Vital Signs Temp 97.6 F 03/29/19 07:00 Pulse 88 03/29/19 08:11 Resp 16 03/29/19 07:00 BP 118/75 03/29/19 07:00 Pulse Ox 99 03/29/19 07:00 Intake & Output 03/28/19 03/29/19 03/29/19 18:59 06:59 18:59 Intake Total 860 120 Balance 860 120 Intake: Intake, IV Titration 500 120 Amount Sodium Chloride 0.9% 1, 300 000 ml @ 100 mls/hr IV . Q10H [facility] Rx#:[id number] Sodium Chloride 0.9% 1, 150 120 000 ml @ 50 mls/hr IV . Q20H [facility] Rx#:[id number] cefTRIAXone 1 gm In 50 Sodium Chloride 0.9% 50 ml @ 100 mls/hr IVPB Q24HR [facility] Rx#:[id number] Oral 360 Other: # Voids 1 - Exam Review of Systems Constitutional: Reports fatigue, Reports lethargy, Reports malaise, Reports poor appetite, Reports sweats, Reports weakness, Denies chills, Denies fever Eyes: denies blurred vision, denies pain Ears, nose, mouth and throat: Denies dysphagia, Denies headache, Denies sore throat, Denies vertigo Cardiovascular: Denies chest pain, Denies decreased exercise tolerance, Denies dyspnea on exertion, Denies leg edema, Denies shortness of breath, Denies syncope Respiratory: Reports home oxygen, Denies cough, Denies cough with sputum, Denies dyspnea, Denies excessive sputum Gastrointestinal: Reports abdominal pain, Reports bloating, Reports diarrhea, Reports loss of appetite, Reports nausea, denies vomiting, Denies melena, reports gastric reflux improved Genitourinary: Denies dysuria, Denies hematuria, Denies urgency, Denies urinary frequency Musculoskeletal: Denies frequent falls, Denies gait dysfunction, Denies muscle weakness, Denies myalgias Integumentary: Denies pruritus, Denies rash, Denies wounds Neurological: Denies aphasia, Denies change in mentation, Denies change in speech, Denies gait dysfunction, Denies numbness, Denies seizures, Denies vertigo, Denies weakness Psychiatric: Denies anxiety, Denies depression Endocrine: Denies fatigue, Denies weight change General appearance: no distress, thin - EENT Eyes: anicteric sclerae, EOMI, PERRLA, no ptosis, no scleral icterus, normal appearance ENT: hearing grossly normal, normal oropharynx, no thrush - Neck Neck: no lymphadenopathy, normal ROM, no rigidity, no stridor Carotids: bilateral: upstroke normal Thyroid: bilateral: normal size - Respiratory Respiratory: bilateral: diminished, wheezing, prolonged expiration, negative: dullness, rales, rhonchi - Cardiovascular Rhythm: regular Heart sounds: normal: S1, S2 Abnormal Heart Sounds: systolic murmur, no S3 Gallop - Gastrointestinal General gastrointestinal: hyperactive bowel sounds, soft, tenderness to the suprapubic area and right of the umbilicus (ileostomy bag in place.) - Integumentary Integumentary: normal, normal turgor - Neurologic Neurologic: CNII-XII intact - Musculoskeletal Musculoskeletal: generalized weakness, strength equal bilaterally - Psychiatric Psychiatric: A&O x's 3, no appropriate affect, intact judgment & insight - Labs CBC & Chem 7: 03/29/19 07:39 03/29/19 07:39 Labs: Abnormal Lab Results - Last 24 Hours (Table) 03/29/19 03/29/19 Range/Units 07:39 07:39 WBC 1.9 L (3.8-10.6) k/uL RBC 1.98 L (3.80-5.40) m/uL Hgb 7.2 L D (11.4-16.0) gm/dL Hct 22.9 L (34.0-46.0) % MCV 115.7 H (80.0-100.0) fL MCH 36.3 H (25.0-35.0) pg RDW 18.4 H (11.5-15.5) % Macrocytosis Marked A Chloride 109 H (98-107) mmol/L Carbon Dioxide 32 H (22-30) mmol/L BUN 5 L (7-17) mg/dL Creatinine 0.51 L (0.52-1.04) mg/dL Glucose 101 H (74-99) mg/dL Calcium 7.2 L (8.4-10.2) mg/dL Total Bilirubin 0.1 L (0.2-1.3) mg/dL AST 44 H (14-36) U/L ALT 76 H (9-52) U/L Total Protein 4.5 L (6.3-8.2) g/dL Albumin 2.5 L (3.5-5.0) g/dL Microbiology - Last 24 Hours (Table) 03/26/19 20:50 Blood Culture - Preliminary Blood No Growth after 48 hours 03/26/19 16:45 Urine Culture - Final Urine,Clean Catch Enterobacter cloacae Assessment and Plan Plan: 1. Acute abdominal pain along with vomiting and intermittent ostomy output. Consult with GI and general surgery. Diet advanced to regular. Continue Lomotil, Bentyl 2. Advanced COPD with multiple ruptured bulla and spontaneous pneumothorax in the past, stable. Patient has appointment in March with [facility] transplant team. 3. Chronic hypoxemic and hypercapneic respiratory failure requiring mechanical ventilation in the past and Trach which has since removed. Patient follows with Dr. Mistry on a regular basis. Patient has home O2 at 3 L nasal cannula. 4. History of Crohn's colitis status post subtotal colectomy and ostomy. Patient is to continue Humira, mercaptopurine, Levsin. 5. Moderate protein calorie malnutrition. we will continue with protein supplement. 6. H/O critical illness myopathy post IVIG infusion. 7. Generalized anxiety disorder. Continue BuSpar to 10 mg orally twice every day and Cymbalta 30 mg daily. 8. Fibromyalgia with bilateral neuropathy. we will continue with Gabapentin 300 mg orally tid. 9. Sinus tachycardia. we will continue with Metoprolol 50 mg orally tid. 10. Vitamin D deficiency. 11. B12 deficiency. we will continue with B12 1000 mcg sc q month. 12. Glaucoma. we will continue with Xalatan. 13. Hypomagnesemia. will continue with magnesium oxide. 14. Enterobacter Urinary tract infection. Consult with Dr. Dubon. Antibiotics changed to cefepime. 15. DVT prophylaxis. we will continue with Lovenox 40 mg subcutaneously every day. 16. GI prophylaxis and gastroesophageal reflux disease. Add Protonix. Continue Carafate. CODE STATUS: Full code. Discharge plan: Return home. Likely on Monday Impression and plan of care have been directed as dictated by the signing physician. Gaby Rothman nurse practitioner acting as scribe for signing physician.
[2019-03-29 14:18] LABS: Anisocytosis Slight; Basophils % (A) 0 %; Eosinophils # (A) 0.1 k/uL (0-0.7); Eosinophils % (A) 5 %; HCT 24.6 % (34.0-46.0); HGB 7.6 gm/dL (11.4-16.0); Hypochromasia Marked; Lymphocytes # (A) 0.7 k/uL (1.0-4.8); Lymphocytes % (A) 29 %; MCH 36.3 pg (25.0-35.0); MCV 116.9 fL (80.0-100.0); Macrocytosis Marked; Mean Platelet Volume 10.1; Monocytes # (A) 0.1 k/uL (0-1.0); Monocytes % (A) 3 %; Neutrophils # (A) 1.5 k/uL (1.3-7.7); Neutrophils % (A) 61 %; Poikilocytosis Slight; RDW 18.3 % (11.5-15.5); WBC 2.4 k/uL (3.8-10.6)
[2019-03-29 14:23] LABS: Platelet Count 93 k/uL (150-450)
[2019-03-29 17:05] VITALS: BMI 18.8
[2019-03-29] MEDS: SODIUM CHLORIDE 0.9% 1,000 ML IV SCH ×2 (17:48→22:44)
[2019-03-29] MEDS: ONDANSETRON 4 MG/2 ML VIAL IVP PRN (17:55)
[2019-03-29] MEDS: MIRTAZAPINE 15 MG TAB PO SCH (20:12)
[2019-03-29] MEDS: LATANOPROST 0.005% OPHTH DROPS 2.5 ML BTL BOTH EYES SCH (20:13)
[2019-03-29] MEDS: MELATONIN 5 MG TABLET PO PRN (21:47)
[2019-03-30] MEDS: HYDROmorphone 0.5 MG/0.5 ML SYRINGE IVP PRN ×4 (00:45→11:00)
--- NOTE | 2019-03-30 01:33 | P.CONS ---
History of Present Illness - Reason for Consult Consult date: 03/29/19 Positive urine culture with Enterobacter Requesting physician: Cornelius Merchant - Chief Complaint Abdominal pain nausea and vomiting 2 days - History of Present Illness Patient is a 58-year-old female with a past medical history significant for end-stage COPD did have a multiple abdominal surgeries and small bowel obstruction presenting to the ER at [facility] on 03/26/2019 with chief complains of sudden onset of abdominal pain and nausea and vomiting of 2 days duration, patient pain has been lower abdominal area describing it to be dull aching to sharp 6-7 out of 10 and no radiation she did mention she did have at times increased output from ileostomy and subsequently no output that is concerned the patient she presented to the ER on presentation the patient has been afebrile the patient did have a CT of abdominal pelvis that has been suggestive 70 syndrome patient has been treated nothing by mouth IV fluid and IV Rocephin patient also have some urine symptom of pressure and slight frequency but no burning or flank pain patient did have a positive UA with urine cultures have been finalized last night Enterobacter that prompted this infection disease consultation Review of Systems Positive points has been mentioned in HPI rest of the systems are negative Past Medical History Past Medical History: COPD, Fibromyalgia, GERD/Reflux, GI Bleed, Osteoarthritis (OA), Pneumonia, Syncope Additional Past Medical History / Comment(s): Crohn's colitis, bowel obstructions, multiple bowel surgeries including total colectomy/ileostomy, severe COPD, chronic respiratory failure, home O2 3L/NC, bullous emphysema, R lung bleb R pneumothorax x3, L pneumothorax x1 and had bilateral pneumothorax 09/2018-acute respiratory failure/vented/cardiac arrest, tachycardia, hiatal hernia, lower GI bleeds, arthritis in multiple joints, osteoporosis, chronic pain, seasonal allergies, bilateral glaucoma and has had bilateral eye surgery for retinal tears/holes. History of Any Multi-Drug Resistant Organisms: None Reported Past Surgical History: Breast Surgery, Cholecystectomy, Hernia Repair, Hysterectomy, Orthopedic Surgery Additional Past Surgical History / Comment(s): Multiple bowel surgeries including total colectomy/ileostomy, ileostomy moved/repaired, R salpingoophorectomy due to ectopic , total hysterectomy, leep procedure, laparoscopy for endometriosis, L breast lumpectomy-benign, r breast core bx-benign, EGD/colonoscopies, bilateral thoravents, arthroscopic knee surgery on the right due to ACL and Meniscal tear, trach and peg tube-since removed. Past Anesthesia/Blood Transfusion Reactions: No Reported Reaction Past Psychological History: Anxiety, Depression Additional Psychological History / Comment(s): Pt is staying with her sister who has a one level home. Her spouse is staying between their home to care for the dogs and pt's sister's house. Pt uses 02 3l n/c atc, has nebulizer, walker. She is receiving PT at home thru [facility]. Smoking Status: Former smoker Past Alcohol Use History: None Reported Additional Past Alcohol Use History / Comment(s): Patient used to smoke 1 pack per day since she was 17 and smoked for 30 years and quit in January 2017. Past Drug Use History: None Reported - Past Family History Mother Family Medical History: Cancer, COPD, Hypertension Additional Family Medical History / Comment(s): Mother at age 83 from COPD and had osteoarthritis and skin cancer. Father Family Medical History: Cancer, CVA/TIA, Dementia, Diabetes Mellitus Additional Family Medical History / Comment(s): Father is 92 yrs old. He has had several TIAs and a CVA Brother(s) Family Medical History: Cancer Additional Family Medical History / Comment(s): Patient had 5 brothers and one of them from melanoma at age 41. Sister(s) History Unknown: Yes Family Medical History: No Reported History Additional Family Medical History / Comment(s): Patient has one sister. Patient has no children Medications and Allergies Home Medications Medication Instructions Recorded Confirmed Type Latanoprost Ophth [Xalatan 0.005%] 1 drop BOTH EYES HS 05/21/17 03/26/19 History Dicyclomine [Bentyl] 10 mg PO TID PRN 07/24/18 03/26/19 History Budesonide 1 mg INHALATION RT-BID PRN 09/27/18 03/26/19 History Gabapentin [Neurontin] 300 mg PO TID 09/27/18 03/26/19 History HYDROcodone/APAP 10-325MG [[place] 1 tab PO Q4H PRN 09/27/18 03/26/19 History 10-325] Opium Tincture 10mg/1ml 20 mg PO BID PRN 09/27/18 03/26/19 History Albuterol Nebulized [Ventolin 2.5 mg INHALATION RT-QID PRN #120 11/10/18 03/26/19 Rx Nebulized] nebu Metoprolol Tartrate [Lopressor] 50 mg PO TID #90 tab 11/10/18 03/26/19 Rx Aclidinium [place] [[place]ud[place]za 1 puff INHALATION RT-BID 11/29/18 03/26/19 History Pressair] Fluticasone/Vilanterol [Breo 1 puff INHALATION RT-DAILY 11/29/18 03/26/19 History Ellipta 200-25 Mcg INH] Guaifen/Phenyleph/Acetaminophn 10 ml PO Q6H PRN 11/29/18 03/26/19 History [Mucinex Sinus-Max Severe Liq] Mercaptopurine [Purinethol] 50 mg PO BID 11/29/18 03/26/19 History busPIRone HCl [Buspar] 10 mg PO BID PRN 11/29/18 03/26/19 History ALPRAZolam [Xanax] 0.25 mg PO DAILY PRN 12/28/18 03/26/19 History Adalimumab [Humira(Cf) Pen] 40 mg SQ Q7D 12/28/18 03/26/19 History DULoxetine HCL [Cymbalta] 30 mg PO DAILY 12/28/18 03/26/19 History Sucralfate [Carafate] 1 gm PO TID #900 ml 12/31/18 03/26/19 Rx Hyoscyamine Sulfate [Levsin] 0.125 mg PO Q4H PRN #90 tab 02/05/19 03/26/19 Rx Albuterol Sulfate [Proair Hfa] 2 puff INHALATION RT-Q6H PRN 03/26/19 03/26/19 History Calcium Gummies 500mg 500 mg PO BID 03/26/19 03/26/19 History Diphenox-Atrop 2.5-0.025 mg 1 tab PO QID 03/26/19 03/26/19 History [Lomotil] Magnesium Oxide [Adan] 500 mg PO DAILY 03/26/19 03/26/19 History Melatonin 10 mg PO HS PRN 03/26/19 03/26/19 History Mirtazapine [Remeron] 7.5 mg PO HS@1900 03/26/19 03/26/19 History Mupirocin 2% Oint [Bactroban 2% 1 applic TOPICAL DAILY PRN 03/26/19 03/26/19 History Oint] Nystatin 100,000 Unit/ml Susp 5 ml PO QID PRN 03/26/19 03/26/19 History [Mycostatin Oral Susp] Ondansetron HCl [Zofran] 4 mg PO BID PRN 03/26/19 03/26/19 History Pantoprazole [Protonix] 40 mg PO QAM 03/26/19 03/26/19 History Allergies Allergy/AdvReac Type Severity Reaction Status Date / Time Iodinated Contrast- Oral and Allergy Anaphylaxis Verified 03/26/19 17:23 IV Dye pregabalin [From Lyrica] Allergy Unknown Verified 03/26/19 17:23 rofecoxib [From Vioxx] Allergy Unknown Verified 03/26/19 17:23 Sulfa (Sulfonamide Allergy Rash/Hives Verified 03/26/19 17:23 Antibiotics) aspirin AdvReac Internal Verified 03/26/19 17:23 Bleeding timolol [Timolol] AdvReac Nausea & Verified 03/26/19 17:23 Vomiting Physical Exam Vitals: Vital Signs Temp Pulse Pulse Resp BP Pulse Ox 03/29/19 14:45 98.5 F 91 16 110/75 100 03/29/19 12:00 84 03/29/19 11:47 92 03/29/19 08:11 88 03/29/19 08:05 82 16 03/29/19 07:55 88 03/29/19 07:00 97.6 F 82 16 118/75 99 03/29/19 01:22 98.4 F 100 14 105/71 100 03/28/19 20:31 84 03/28/19 20:15 93 98 03/28/19 16:40 94 03/28/19 16:31 90 03/28/19 16:00 15 Intake and Output 03/29/19 03/29/19 03/29/19 06:59 14:59 22:59 Output Total 200 Balance -200 Output: Stool 200 Other: # Voids 1 2 GENERAL DESCRIPTION: Middle-aged female up in the bed, no distress. No tachypnea or accessory muscle of respiration use. HEENT: Shows Pallor , no scleral icterus. Oral mucous membrane is dry. No pharyngeal erythema or thrush NECK: Trachea central, no thyromegaly. LUNGS: Unlabored breathing. Decreased breath sound at the base. Occasional wheeze. HEART: S1, S2, regular rate and rhythm. No loud murmur ABDOMEN: Soft, mild distention but no no tenderness EXTREMITIES: No edema of feet. SKIN: No rash, no masses palpable. NEUROLOGICAL: The patient is awake, alert, oriented x3, mood and affect normal Results CBC & Chem 7: 03/29/19 13:50 03/29/19 07:39 Labs: Abnormal Lab Results - Last 24 Hours (Table) 03/29/19 03/29/19 03/29/19 Range/Units 07:39 07:39 13:50 WBC 1.9 L 2.4 L (3.8-10.6) k/uL RBC 1.98 L 2.10 L (3.80-5.40) m/uL Hgb 7.2 L D 7.6 L (11.4-16.0) gm/dL Hct 22.9 L 24.6 L (34.0-46.0) % MCV 115.7 H 116.9 H (80.0-100.0) fL MCH 36.3 H 36.3 H (25.0-35.0) pg RDW 18.4 H 18.3 H (11.5-15.5) % Plt Count 94 L 93 L (150-450) k/uL Lymphocytes # 0.7 L (1.0-4.8) k/uL Macrocytosis Marked A Marked A Chloride 109 H (98-107) mmol/L Carbon Dioxide 32 H (22-30) mmol/L BUN 5 L (7-17) mg/dL Creatinine 0.51 L (0.52-1.04) mg/dL Glucose 101 H (74-99) mg/dL Calcium 7.2 L (8.4-10.2) mg/dL Total Bilirubin 0.1 L (0.2-1.3) mg/dL AST 44 H (14-36) U/L ALT 76 H (9-52) U/L Total Protein 4.5 L (6.3-8.2) g/dL Albumin 2.5 L (3.5-5.0) g/dL Microbiology - Last 24 Hours (Table) 03/26/19 20:50 Blood Culture - Preliminary Blood No Growth after 48 hours 03/26/19 16:45 Urine Culture - Final Urine,Clean Catch Enterobacter cloacae Assessment and Plan Assessment: 1-Patient been in hospital with acute abdominal pain nausea and vomiting with increased output from her ileostomy with concern for possible SMA syndrome being managed by GI and surgical team 2-patient to have a positive UA with urine culture finalized with Enterobacter in this patient who did have a urinary symptoms of pressure slight frequency likely a symptomatic urinary tract infection 3-patient with sulfa antibiotic ALLERGY limiting the number of antibiotic safe to use Plan: 1-discontinue the Rocephin 2-start the patient on cefepime 2gms q12hr for better activity against Enterobacter that will be transitioned oral antibiotics on discharge 3-gentle IV fluid We will follow-up on her clinical condition and cultures to further adjust medication if needed Thank you for this consultation will follow this patient along with you
[2019-03-30] MEDS: HYDROcodone/APAP 10-325MG 1 EACH TAB PO PRN ×2 (05:32→09:42)
[2019-03-30] MEDS: MAGNESIUM OXIDE 400 MG TAB PO SCH (08:10)
[2019-03-30] MEDS: PANTOPRAZOLE 40 MG/10 ML VIAL IVP SCH (08:10)
[2019-03-30] MEDS: GABAPENTIN 300 MG CAP PO SCH (08:10)
[2019-03-30] MEDS: SUCRALFATE 1 GM TAB PO SCH (08:10)
[2019-03-30] MEDS: HEPARIN SODIUM,PORCINE 5,000 UNIT/ML 1 ML VIAL SQ SCH (08:10)
[2019-03-30] MEDS: MERCAPTOPURINE 50 MG TAB PO SCH (08:11)
[2019-03-30] MEDS: DULoxetine HCL 30 MG CAPSULE.DR PO SCH (08:11)
[2019-03-30] MEDS: METOPROLOL TARTRATE 50 MG TAB PO SCH (08:11)
[2019-03-30] MEDS: CEFEPIME 2 GM in SODIUM CHLORIDE 0.9% 100 ML IVPB SCH (08:12)
[2019-03-30] MEDS: IPRATROPIUM-ALBUTEROL 3 ML NEB INHALATION SCH ×2 (09:06→12:28)
[2019-03-30] MEDS: BUDESONIDE 1 MG/2 ML NEBU INHALATION PRN (09:06)
[2019-03-30 09:22] VITALS: BP 137/84; RESP 15; TEMP 98
[2019-03-30 09:26] VITALS: PULSE 86
--- NOTE | 2019-03-30 15:05 | P.DS ---
Providers Date of admission: 03/26/19 21:28 Expected date of discharge: 03/30/19 Attending physician: Cornelius Merchant Consults: 03/26/19 21:43 Consult Physician Routine Consulting Provider: Fernando Aguayo Consult Reason/Comments: POSS SMA SYNDROME, ABDOMINAL PAIN, H/O CROHNS, Do you want consulting provider notified?: Yes 03/28/19 22:05 Consult Physician Routine Consulting Provider: Guido Dubon Consult Reason/Comments: Positive urine culture Do you want consulting provider notified?: Yes Primary care physician: [facility] Course: This is a 58-year-old female patient of Dr. James and Dr. Mistry with history of advanced COPD with extensive bullous changes with FEV1 of 19- 21%, chronic hypoxic respiratory failure on home O2, history of Crohn's colitis with ostomy, multiple bowel obstructions and multiple bowel surgeries, yperlipidemia, hypothyroidism, anemia, fibromyalgia, generalized anxiety disorder and recurrent depression. Patient is currently on transplant list at [facility] where she was initially evaluated for embolectomy but surgery was canceled. Patient relates that she has an appointment with [facility] on April 04 with the transplant team. Patient had sudden onset of abdominal pain, vomiting and diarrhea. Patient states on Monday she had cold sweats as well and symptoms all seemed to worsen by Monday. Her pain was in the low pelvis area and the mid area right of the umbilicus. She states she had increased output from her ostomy followed by no activity and was concerned. She also complains of generalized weakness. Regarding oh p.m., she states she has very limited amount that she has been trying to use sparingly. She did use this on Monday when diarrhea seemed to get worse. She has also cut down the dose from 2 mL sound to 1 mL. No chest pain or shortness of breath. Breathing status seems to be at her baseline. Patient presented to [facility] emergency center for evaluation was found to be afebrile, initial blood pressure 133/95, heart rate 102, pulse ox 98% on O2. White count is normal, hemoglobin 12.5, platelet count 144, blood sugar 122. Electrolytes are within normal limits, CO2 37, AST 62, ALT 57 with normal alkaline phosphatase and bilirubin. Amylase and lipase are normal. Urinalysis cloudy, moderate leukoesterase, wbc's 116. CT of the abdomen and pel vis is positive for SM a syndrome. Nonspecific small bowel findings. Lactic acid 1.8 Patient was started on Rocephin and blood cultures were obtained. Patient was given 1/2 L of IV fluid and admitted to the [facility] floor and consults with Dr. Aguayo and GI. Patient is currently nothing by mouth. 03/28: This morning, patient is complaining of heartburn. She is on Carafate which will also adding Protonix. Patient is on clear liquid diets and complaining of nausea especially when she tried to eat this morning. IV fluids will be decreased to 50 mL per hour. Diet has been advanced to full liquid diet.C. difficile toxin is negative. Repeat lab work for tomorrow. 03/29: Patient states that she made it through the night with only continue her ostomy bag once. She complains of a burning type pain that occurs in one spot and then goes away quickly. She states she had 4 episodes of that during the night. Patient states that her heartburn is improved. In general she is feeling generalized malaise. Dr. Dubon has been added regarding urine culture positive for Enterobacter and patient has been placed on cefepime. Diet advanced to regular for lunch. Anticipate probable discharge home tomorrow. 03/30: Patient states her respiratory status remains stable. She continues to have intermittent pelvic pain. She states her output from her ostomy is returning to normal but not quite there. She has had some nausea with eating. She is willing to try to go home at this point. Dr. Dubon [facility] course of antibiotics for urinary tract infection. Patient will be discharged home today in stable condition. Discharge diagnoses: 1. Acute abdominal pain along with vomiting and intermittent ostomy output. 2. Advanced COPD with multiple ruptured bulla and spontaneous pneumothorax in the past, stable. 3. Chronic hypoxemic and hypercapneic respiratory failure requiring mechanical ventilation in the past and Trach which has since removed. 4. History of Crohn's colitis status post subtotal colectomy and ostomy. 5. Moderate protein calorie malnutrition. 6. H/O critical illness myopathy post IVIG infusion. 7. Generalized anxiety disorder. 8. Fibromyalgia with bilateral neuropathy. 9. Sinus tachycardia. 10. Vitamin D deficiency. 11. B12 deficiency. 12. Glaucoma. 13. Hypomagnesemia. 14. Enterobacter Urinary tract infection. Discharge plan: Return home. Impression and plan of care have been directed as dictated by the signing physician. Gaby Rothman nurse practitioner acting as scribe for signing flor lloyd. Patient Condition at Discharge: Good Plan - Discharge Summary New Discharge Prescriptions: New Ciprofloxacin HCl [Cipro] 500 mg PO Q12HR #10 tablet Continue Latanoprost Ophth [Xalatan 0.005%] 1 drop BOTH EYES HS Dicyclomine [Bentyl] 10 mg PO TID PRN PRN Reason: Pain Budesonide 1 mg INHALATION RT-BID PRN PRN Reason: Shortness Of Breath Gabapentin [Neurontin] 300 mg PO TID Opium Tincture 10mg/1ml 20 mg PO BID PRN PRN Reason: BOWEL ISSUES HYDROcodone/APAP 10-325MG [[place] 10-325] 1 tab PO Q4H PRN PRN Reason: Pain Metoprolol Tartrate [Lopressor] 50 mg PO TID #90 tab Albuterol Nebulized [Ventolin Nebulized] 2.5 mg INHALATION RT-QID PRN #120 nebu PRN Reason: Shortness Of Breath Guaifen/Phenyleph/Acetaminophn [Mucinex Sinus-Max Severe Liq] 10 ml PO Q6H PRN PRN Reason: Cough Aclidinium [place] [Tudorza Pressair] 1 puff INHALATION RT-BID Mercaptopurine [Purinethol] 50 mg PO BID busPIRone HCl [Buspar] 10 mg PO BID PRN PRN Reason: Anxiety Fluticasone/Vilanterol [Breo Ellipta 200-25 Mcg INH] 1 puff INHALATION RT-DAILY ALPRAZolam [Xanax] 0.25 mg PO DAILY PRN PRN Reason: Anxiety Adalimumab [Humira(Cf) Pen] 40 mg SQ Q7D DULoxetine HCL [Cymbalta] 30 mg PO DAILY Sucralfate [Carafate] 1 gm PO TID #900 ml Hyoscyamine Sulfate [Levsin] 0.125 mg PO Q4H PRN #90 tab PRN Reason: Abdominal Distention Ondansetron HCl [Zofran] 4 mg PO BID PRN PRN Reason: Nausea Nystatin 100,000 Unit/ml Susp [Mycostatin Oral Susp] 5 ml PO QID PRN PRN Reason: YEAST INFECTION Albuterol Sulfate [Proair Hfa] 2 puff INHALATION RT-Q6H PRN PRN Reason: Shortness Of Breath Pantoprazole [Protonix] 40 mg PO QAM Mupirocin 2% Oint [Bactroban 2% Oint] 1 applic TOPICAL DAILY PRN PRN Reason: Rash Mirtazapine [Remeron] 7.5 mg PO HS@1900 Melatonin 10 mg PO HS PRN PRN Reason: Insomnia Magnesium Oxide [Adan] 500 mg PO DAILY Diphenox-Atrop 2.5-0.025 mg [Lomotil] 1 tab PO QID Calcium Gummies 500mg 500 mg PO BID Discharge Medication List Latanoprost Ophth [Xalatan 0.005%] 1 drop BOTH EYES HS 05/21/17 [History] Dicyclomine [Bentyl] 10 mg PO TID PRN 07/24/18 [History] Budesonide 1 mg INHALATION RT-BID PRN 09/27/18 [History] Gabapentin [Neurontin] 300 mg PO TID 09/27/18 [History] HYDROcodone/APAP 10-325MG [[place] 10-325] 1 tab PO Q4H PRN 09/27/18 [History] Opium Tincture 10mg/1ml 20 mg PO BID PRN 09/27/18 [History] Albuterol Nebulized [Ventolin Nebulized] 2.5 mg INHALATION RT-QID PRN #120 nebu 11/10/18 [Rx] Metoprolol Tartrate [Lopressor] 50 mg PO TID #90 tab 11/10/18 [Rx] Aclidinium [place] [Tudorza Pressair] 1 puff INHALATION RT-BID 11/29/18 [History] Fluticasone/Vilanterol [Breo Ellipta 200-25 Mcg INH] 1 puff INHALATION RT-DAILY 11/29/18 [History] Guaifen/Phenyleph/Acetaminophn [Mucinex Sinus-Max Severe Liq] 10 ml PO Q6H PRN 11/29/18 [History] Mercaptopurine [Purinethol] 50 mg PO BID 11/29/18 [History] busPIRone HCl [Buspar] 10 mg PO BID PRN 11/29/18 [History] ALPRAZolam [Xanax] 0.25 mg PO DAILY PRN 12/28/18 [History] Adalimumab [Humira(Cf) Pen] 40 mg SQ Q7D 12/28/18 [History] DULoxetine HCL [Cymbalta] 30 mg PO DAILY 12/28/18 [History] Sucralfate [Carafate] 1 gm PO TID #900 ml 12/31/18 [Rx] Hyoscyamine Sulfate [Levsin] 0.125 mg PO Q4H PRN #90 tab 02/05/19 [Rx] Albuterol Sulfate [Proair Hfa] 2 puff INHALATION RT-Q6H PRN 03/26/19 [History] Calcium Gummies 500mg 500 mg PO BID 03/26/19 [History] Diphenox-Atrop 2.5-0.025 mg [Lomotil] 1 tab PO QID 03/26/19 [History] Magnesium Oxide [Adan] 500 mg PO DAILY 03/26/19 [History] Melatonin 10 mg PO HS PRN 03/26/19 [History] Mirtazapine [Remeron] 7.5 mg PO HS@1900 03/26/19 [History] Mupirocin 2% Oint [Bactroban 2% Oint] 1 applic TOPICAL DAILY PRN 03/26/19 [History] Nystatin 100,000 Unit/ml Susp [Mycostatin Oral Susp] 5 ml PO QID PRN 03/26/19 [History] Ondansetron HCl [Zofran] 4 mg PO BID PRN 03/26/19 [History] Pantoprazole [Protonix] 40 mg PO QAM 03/26/19 [History] Ciprofloxacin HCl [Cipro] 500 mg PO Q12HR #10 tablet 03/30/19 [Rx] Follow up Appointment(s)/Referral(s): Heber James MD [Primary Care Provider] - 1 Week Patient Instructions/Handouts: Urinary Tract Infection in Women (DC) Discharge Disposition: HOME SELF-CARE
--- NOTE | 2019-04-02 08:49 | CDI ---
Documentation Clarification Form Date: 04/02/2019 8:21:55 AM From: BG Bee; Violeta Horn Service Technician Phone: If you have a question about this query, please contact Violeta Horn Service Technician at [phone] between 8am and 5pm. Admit Date: 03/26/2019 9:28:00 PM Patient Name: Caitie Garg Visit Number: [id number] Discharge Date: 03/30/2019 12:07:00 PM ATTENTION: The Clinical Documentation Specialists (CDI) and [facility] Coding Staff appreciate your assistance in clarifying documentation. Please respond to the clarification below the line at the bottom and electronically sign. The CDI & [facility] Coding staff will review the response and follow-up if needed. Please note: Queries are made part of the Legal Health Record. If you have any questions, please contact the author of this message via ITS. Dr. Cornelius Merchant The patients principal diagnosis has not been clearly identified and requires clarification. The patient presented with acute abdominal pain along with vomiting and intermittent ostomy output. History/Risk factors: Crohns, chronic respiratory failure, advanced COPD, moderate protein calorie malnutrition, subtotal colectomy with ostomy. Clinical Indicators: Abdominal pain, weakness, vomiting, dehydration. Lab findings: WBC 4, RBC 3.41, Urine: cloudy, moderate leukocyte, WBC 116, Radiology findings: Abdominal CT: SMA syndrome Vital Signs in ED: temp 98.2, pulse 102, resp 18, BP 133/95, O2 sat 98. Treatment: Lomotil, Bentyl, Rocephin. Consults: GI, Surgery In your professional opinion can you please clarify, after study, the underlying etiology of the acute abdominal pain? Crohns disease SMA syndrome UTI Other, please specify Unable to determine Unable to determine MTDD
== END 2019-03-30 12:07 | disposition home or self-care (01) | DRG 690 ==
LOC: EC 15:46 → 4SSUR 21:28
PROVIDERS: ADMIT Internal Medicine; ATTEND Internal Medicine
DX: N39.0 Urinary tract infection, site not specified (principal); E44.0 Moderate protein-calorie malnutrition; F33.9 Major depressive disorder, recurrent, unspecified; J96.11 Chronic respiratory failure with hypoxia; J96.12 Chronic respiratory failure with hypercapnia; K50.10 Crohn's disease of large intestine without complications; K55.1 Chronic vascular disorders of intestine; R10.9 Unspecified abdominal pain; B96.89 Other specified bacterial agents as the cause of diseases classified elsewhere; D75.89 Other specified diseases of blood and blood-forming organs; E03.9 Hypothyroidism, unspecified; E53.8 Deficiency of other specified B group vitamins; E83.42 Hypomagnesemia; E86.0 Dehydration; F41.1 Generalized anxiety disorder; G62.9 Polyneuropathy, unspecified; H40.9 Unspecified glaucoma; J43.9 Emphysema, unspecified; K21.9 Gastro-esophageal reflux disease without esophagitis; M79.7 Fibromyalgia; M81.0 Age-related osteoporosis without current pathological fracture; Z76.82 Awaiting organ transplant status; Z79.899 Other long term (current) drug therapy; Z80.8 Family history of malignant neoplasm of other organs or systems; Z82.3 Family history of stroke; Z82.49 Family history of ischemic heart disease and other diseases of the circulatory system; Z82.5 Family history of asthma and other chronic lower respiratory diseases; Z83.3 Family history of diabetes mellitus; Z86.74 Personal history of sudden cardiac arrest; Z87.891 Personal history of nicotine dependence; Z88.1 Allergy status to other antibiotic agents; Z90.49 Acquired absence of other specified parts of digestive tract; Z90.710 Acquired absence of both cervix and uterus; Z99.81 Dependence on supplemental oxygen; Z88.2 Allergy status to sulfonamides; Z88.8 Allergy status to other drugs, medicaments and biological substances; Z88.6 Allergy status to analgesic agent; Z91.041 Radiographic dye allergy status
CPT/HCPCS: 36415; 74177; 80053; 81001; 82150; 83605; 83690; 85025; 85027; 87040; 87077; 87086; 87186; 87324; 94640; 94760; 96361; 96374; 96375; 99285

== ENCOUNTER 2019-05-14 12:17 | Inpatient (IN) | payer BC ==
[2019-05-14] MEDS ORDERED: ALBUTEROL NEBULIZED 2.5 MG/3 ML INHALATION STA (12:21)
[2019-05-14] MEDS ORDERED: methylPREDNISolone SOD SUCCI 125 MG/2 ML VIAL IV STA (12:21)
[2019-05-14] MEDS ORDERED: SODIUM CHLORIDE 0.9% 500 ML 500 ML IV STA (12:21)
[2019-05-14] MEDS ORDERED: KETOROLAC 60 MG/2 ML VIAL IVP STA (12:58)
--- NOTE | 2019-05-14 13:01 | ED ---
General Adult HPI - General Chief complaint: Shortness of Breath Stated complaint: COPD Time Seen by Provider: 05/14/19 12:35 Source: patient, EMS, RN notes reviewed Mode of arrival: EMS - History of Present Illness Initial comments: This is a 58-year-old female who presents emergency Department with a past medical history significant for COPD. Patient comes in today because over the last 3 or 4 days she's had more and more difficulty breathing. Patient states she's had a substantial cough the point where her ribs hurt. Patient states she's had no sputum production. Patient denies any fever chills per patient denies any anterior chest pain. Patient denies any palpitation. Patient denies any abdominal pain patient denies nausea vomiting diarrhea. Patient denies any swelling to the legs or calf tenderness. Patient denies lightheadedness dizziness or near syncopal episode. Patient states she wears oxygen at home 24 hours a day and she is increased by 1 L as of yesterday and it does not seem to help. - Related Data Home Medications Medication Instructions Recorded Confirmed Latanoprost Ophth [Xalatan 0.005%] 1 drop BOTH EYES HS 05/21/17 05/14/19 Dicyclomine [Bentyl] 10 mg PO TID PRN 07/24/18 05/14/19 Budesonide 1 mg INHALATION RT-BID PRN 09/27/18 05/14/19 Gabapentin [Neurontin] 300 mg PO TID 09/27/18 05/14/19 HYDROcodone/APAP 10-325MG [[place] 1 tab PO Q4H PRN 09/27/18 05/14/19 10-325] Opium Tincture 10mg/1ml 20 mg PO QID PRN 09/27/18 05/14/19 Aclidinium [place] [[place] 1 puff INHALATION RT-BID 11/29/18 05/14/19 Pressair] Fluticasone/Vilanterol [Breo 1 puff INHALATION RT-DAILY 11/29/18 05/14/19 Ellipta 200-25 Mcg INH] Guaifen/Phenyleph/Acetaminophn 10 ml PO Q6H PRN 11/29/18 05/14/19 [Mucinex Sinus-Max Severe Liq] Mercaptopurine [Purinethol] 50 mg PO BID 11/29/18 05/14/19 busPIRone HCl [Buspar] 10 mg PO BID PRN 11/29/18 05/14/19 ALPRAZolam [Xanax] 0.25 mg PO DAILY PRN 12/28/18 05/14/19 Adalimumab [Humira(Cf) Pen] 40 mg SQ Q7D 12/28/18 05/14/19 DULoxetine HCL [Cymbalta] 30 mg PO DAILY 12/28/18 05/14/19 Albuterol Sulfate [Proair Hfa] 2 puff INHALATION RT-Q6H PRN 03/26/19 05/14/19 Calcium Gummies 500mg 500 mg PO BID 03/26/19 05/14/19 Diphenox-Atrop 2.5-0.025 mg 1 tab PO TID 03/26/19 05/14/19 [Lomotil] Magnesium Oxide [Adan] 500 mg PO DAILY 03/26/19 05/14/19 Melatonin 10 mg PO HS PRN 03/26/19 05/14/19 Mirtazapine [Remeron] 7.5 mg PO HS@1900 03/26/19 05/14/19 Mupirocin 2% Oint [Bactroban 2% 1 applic TOPICAL DAILY PRN 03/26/19 05/14/19 Oint] Nystatin 100,000 Unit/ml Susp 5 ml PO QID PRN 03/26/19 05/14/19 [Mycostatin Oral Susp] Ondansetron HCl [Zofran] 4 mg PO BID PRN 03/26/19 05/14/19 Pantoprazole [Protonix] 40 mg PO QAM 03/26/19 05/14/19 Lidocaine 5% Patch [Lidoderm 5% 1 patch TOPICAL DAILY 04/16/19 05/14/19 Patch] Sucralfate [Carafate] 1 gm PO TID PRN 04/16/19 05/14/19 Previous Rx's Medication Instructions Recorded Albuterol Nebulized [Ventolin 2.5 mg INHALATION RT-QID PRN #120 11/10/18 Nebulized] nebu Metoprolol Tartrate [Lopressor] 50 mg PO TID #90 tab 11/10/18 Hyoscyamine Sulfate [Levsin] 0.125 mg PO Q4H PRN #90 tab 02/05/19 Allergies Allergy/AdvReac Type Severity Reaction Status Date / Time Iodinated Contrast- Oral and Allergy Anaphylaxis Verified 05/14/19 12:41 IV Dye pregabalin [From Lyrica] Allergy Unknown Verified 05/14/19 12:41 rofecoxib [From Vioxx] Allergy Unknown Verified 05/14/19 12:41 Sulfa (Sulfonamide Allergy Rash/Hives Verified 05/14/19 12:41 Antibiotics) aspirin AdvReac Internal Verified 05/14/19 12:41 Bleeding timolol [Timolol] AdvReac Nausea & Verified 05/14/19 12:41 Vomiting Review of Systems ROS Statement: Those systems with pertinent positive or pertinent negative responses have been documented in the HPI. ROS Other: All systems not noted in ROS Statement are negative. Past Medical History Past Medical History: COPD, Eye Disorder, Fibromyalgia, GERD/Reflux, GI Bleed, Hyperlipidemia, Osteoarthritis (OA), Pneumonia, Syncope, Thyroid Disorder Additional Past Medical History / Comment(s): Pt recently admitted to [facility] on 03/26/19 with acute abdominal pain/vomiting/UTI. Other hx: Pt states she recently had an appt on [facility] on 04/04/19 and she is going to be going on a lung transplant list after she completes her paperwork/prior requirments, crohn's colitis, ulcerative colitis, bowel obstructions, multiple bowel surgeries including total colectomy/ileostomy, severe COPD, chronic respiratory failure, home O2 3L/NC, bullous emphysema/ruptured bollous, R lung bleb R pneumothorax x3, L pneumothorax x1 and had bilateral pneumothorax 09/2018-acute respiratory failure/vented/cardiac arrest, tachycardia, myopathy, IVIG infusions, hiatal hernia, lower GI bleeds, arthritis in multiple joints, osteoporosis, chronic pa in, seasonal allergies, bilateral glaucoma and has had bilateral eye surgery for retinal tears/holes, vitamin D and B12 deficiencies, hypothyroid, moderate protein calorie malnutrition. History of Any Multi-Drug Resistant Organisms: None Reported Past Surgical History: Breast Surgery, Cholecystectomy, Hernia Repair, Hysterectomy, Orthopedic Surgery Additional Past Surgical History / Comment(s): Multiple bowel surgeries in cluding total colectomy/ileostomy, ileostomy moved/repaired, R salpingoophorectomy due to ectopic , total hysterectomy, leep procedure, laparoscopy for endometriosis, L breast lumpectomy-benign, r breast core bx-benign, R inguinal hernia repair, EGD/colonoscopies, bilateral thoravents, arthroscopic knee surgery on the right due to ACL and Meniscal tear, trach and peg tube-since removed. bone marrow biopsy and aspirate Past Anesthesia/Blood Transfusion Reactions: No Reported Reaction Past Psychological History: No Psychological Hx Reported Smoking Status: Former smoker Past Alcohol Use History: None Reported Past Drug Use History: None Reported - Past Family History Mother Family Medical History: Cancer, COPD, Hypertension Additional Family Medical History / Comment(s): Mother at age 83 from COPD and had osteoarthritis and skin cancer. Father Family Medical History: Cancer, CVA/TIA, Dementia, Diabetes Mellitus Additional Family Medical History / Comment(s): Father is 92 yrs old. He has had several TIAs and a CVA Brother(s) Family Medical History: Cancer Additional Family Medical History / Comment(s): Patient had 5 brothers and one of them from melanoma at age 41. Sister(s) History Unknown: Yes Family Medical History: No Reported History Additional Family Medical History / Comment(s): Patient has one sister. Patient has no children General Exam - General Exam Comments Initial Comments: GENERAL: Patient is well-developed and well-nourished. Patient is nontoxic and well- hydrated and is in mild distress. ENT: Neck is soft and supple. No significant lymphadenopathy is noted. Oropharynx i s clear. Moist mucous membranes. Neck has full range of motion without eliciting any pain. EYES: The sclera were anicteric and conjunctiva were pink and moist. Extraocular movements were intact and pupils were equal round and reactive to light. Eyelids were unremarkable. PULMONARY: Patient has expiratory wheezing throughout CARDIOVASCULAR: There is a regular rate and rhythm without any murmurs gallops or rubs. ABDOMEN: Soft and nontender with normal bowel sounds. SKIN: Skin is clear with no lesions or rashes and otherwise unremarkable. NEUROLOGIC: Patient is alert and oriented x3. Cranial nerves II through XII are grossly intact. Motor and sensory are also intact. Normal speech, volume and content. Symmetrical smile. MUSCULOSKELETAL: Normal extremities with adequate strength and full range of motion. No lower extremity swelling or edema. No calf tenderness. LYMPHATICS: No significant lymphadenopathy is noted PSYCHIATRIC: Normal psychiatric evaluation. Course Vital Signs 0705/14/19 05/14/19 12:34 12:59 13:04 Temperature 98.8 F Pulse Rate 113 H 114 H 104 H Respiratory 22 19 Rate Blood Pressure 102/71 99/63 O2 Sat by Pulse 94 L 99 Oximetry 05/14/19 05/14/19 05/14/19 13:11 13:25 13:30 Temperature Pulse Rate 106 H 114 H 108 H Respiratory 15 Rate Blood Pressure 99/63 O2 Sat by Pulse 99 Oximetry 05/14/19 05/14/19 05/14/19 13:33 14:00 14:30 Temperature Pulse Rate 112 H 105 H 97 Respiratory 16 13 Rate Blood Pressure 107/62 85/68 O2 Sat by Pulse 96 95 Oximetry Medical Decision Making - Medical Decision Making EKG shows sinus tachycardia at 107 bpm WA interval is 1:30 QRS is 60 QT interval 316 QTC is 411. Patient's EKG shows no ST segment elevation or depression or T wave abnormalities are noted. Chest x-ray shows no acute abnormality. Patient is feeling better after 3 breathing treatments but still continued to wheeze diffusely. Patient also received Solu-Medrol in the department. I spoke with Dr. Siddiqui he agreed to admit the patient admitted the patient I wrote admitting orders I continued steroids and albuterol treatments on the floor. - Lab Data Result diagrams: 05/14/19 12:29 05/14/19 12:29 Lab Results 05/14/19 05/14/19 05/14/19 Range/Units 12:29 12:29 12:29 WBC 4.6 (3.8-10.6) k/uL RBC 2.33 L (3.80-5.40) m/uL Hgb 8.5 L (11.4-16.0) gm/dL Hct 26.6 L (34.0-46.0) % MCV 113.9 H (80.0-100.0) fL MCH 36.6 H (25.0-35.0) pg MCHC 32.2 (31.0-37.0) g/dL RDW 18.1 H (11.5-15.5) % Plt Count 93 L (150-450) k/uL Neutrophils % 86 % Lymphocytes % 9 % Monocytes % 2 % Eosinophils % 2 % Basophils % 0 % Neutrophils # 4.0 (1.3-7.7) k/uL Lymphocytes # 0.4 L (1.0-4.8) k/uL Monocytes # 0.1 (0-1.0) k/uL Eosinophils # 0.1 (0-0.7) k/uL Basophils # 0.0 (0-0.2) k/uL Manual Slide Review Performed Polychromasia Present Hypochromasia Slight Poikilocytosis Slight Anisocytosis Slight Macrocytosis Marked A PT (9.0-12.0) sec INR (<1.2) APTT (22.0-30.0) sec Sodium 138 (137-145) mmol/L Potassium 4.7 (3.5-5.1) mmol/L Chloride 96 L (98-107) mmol/L Carbon Dioxide 37 H (22-30) mmol/L Anion Gap 5 mmol/L BUN 20 H (7-17) mg/dL Creatinine 0.56 (0.52-1.04) mg/dL Est GFR (CKD-EPI)AfAm >90 (>60 ml/min/1.73 sqM) Est GFR (CKD-EPI)NonAf >90 (>60 ml/min/1.73 sqM) Glucose 204 H (74-99) mg/dL Calcium 8.7 (8.4-10.2) mg/dL Magnesium 1.6 (1.6-2.3) mg/dL Total Bilirubin 1.6 H (0.2-1.3) mg/dL AST 96 H (14-36) U/L ALT 169 H (9-52) U/L Alkaline Phosphatase 111 (38-126) U/L Troponin I (0.000-0.034) ng/mL NT-Pro-B Natriuret Pep 204 pg/mL Total Protein 5.5 L (6.3-8.2) g/dL Albumin 3.2 L (3.5-5.0) g/dL 05/14/19 05/14/19 Range/Units 12:29 12:29 WBC (3.8-10.6) k/uL RBC (3.80-5.40) m/uL Hgb (11.4-16.0) gm/dL Hct (34.0-46.0) % MCV (80.0-100.0) fL MCH (25.0-35.0) pg MCHC (31.0-37.0) g/dL RDW (11.5-15.5) % Plt Count (150-450) k/uL Neutrophils % % Lymphocytes % % Monocytes % % Eosinophils % % Basophils % % Neutrophils # (1.3-7.7) k/uL Lymphocytes # (1.0-4.8) k/uL Monocytes # (0-1.0) k/uL Eosinophils # (0-0.7) k/uL Basophils # (0-0.2) k/uL Manual Slide Review Polychromasia Hypochromasia Poikilocytosis Anisocytosis Macrocytosis PT 10.2 (9.0-12.0) sec INR 0.9 (<1.2) APTT 26.7 (22.0-30.0) sec Sodium (137-145) mmol/L Potassium (3.5-5.1) mmol/L Chloride (98-107) mmol/L Carbon Dioxide (22-30) mmol/L Anion Gap mmol/L BUN (7-17) mg/dL Creatinine (0.52-1.04) mg/dL Est GFR (CKD-EPI)AfAm (>60 ml/min/1.73 sqM) Est GFR (CKD-EPI)NonAf (>60 ml/min/1.73 sqM) Glucose (74-99) mg/dL Calcium (8.4-10.2) mg/dL Magnesium (1.6-2.3) mg/dL Total Bilirubin (0.2-1.3) mg/dL AST (14-36) U/L ALT (9-52) U/L Alkaline Phosphatase (38-126) U/L Troponin I <0.012 (0.000-0.034) ng/mL NT-Pro-B Natriuret Pep pg/mL Total Protein (6.3-8.2) g/dL Albumin (3.5-5.0) g/dL Critical Care Time Critical Care Time: Yes Total Critical Care Time: 35 Disposition Clinical Impression: Acute exacerbation of chronic obstructive airways disease Disposition: ADMITTED IP TO THIS HOSP Referrals: Heber James MD [Primary Care Provider] - 1-2 days Time of Disposition: 15:59
[2019-05-14 13:12] LABS: INR 0.9 (<1.2); Partial Thromboplastin Time 26.7 sec (22.0-30.0); Prothrombin Time 10.2 sec (9.0-12.0)
[2019-05-14 13:16] LABS: ALT 169 U/L (9-52); AST 96 U/L (14-36); African American GFR (CKD) >90 (>60 ml/min/1.73 sqM); Albumin 3.2 g/dL (3.5-5.0); Alkaline Phosphatase 111 U/L (38-126); Anion Gap 5 mmol/L; Anisocytosis Slight; Basophils % (A) 0 %; Blood Urea Nitrogen 20 mg/dL (7-17); Calcium 8.7 mg/dL (8.4-10.2); Carbon Dioxide 37 mmol/L (22-30); Chloride 96 mmol/L (98-107); Eosinophils # (A) 0.1 k/uL (0-0.7); Eosinophils % (A) 2 %; Glucose 204 mg/dL (74-99); HCT 26.6 % (34.0-46.0); HGB 8.5 gm/dL (11.4-16.0); Hypochromasia Slight; Lymphocytes # (A) 0.4 k/uL (1.0-4.8); Lymphocytes % (A) 9 %; MCH 36.6 pg (25.0-35.0); MCHC 32.2 g/dL (31.0-37.0); MCV 113.9 fL (80.0-100.0); Macrocytosis Marked; Magnesium 1.6 mg/dL (1.6-2.3); Mean Platelet Volume 8.5; Monocytes # (A) 0.1 k/uL (0-1.0); Monocytes % (A) 2 %; Neutrophils % (A) 86 %; Poikilocytosis Slight; Potassium 4.7 mmol/L (3.5-5.1); RBC 2.33 m/uL (3.80-5.40); RDW 18.1 % (11.5-15.5); Sodium 138 mmol/L (137-145); Total Bilirubin 1.6 mg/dL (0.2-1.3); Total Protein 5.5 g/dL (6.3-8.2); WBC 4.6 k/uL (3.8-10.6)
[2019-05-14 13:45] LABS: Platelet Count 93 k/uL (150-450); Polychromasia Present
--- NOTE | 2019-05-14 13:58 | XR ---
EXAMINATION TYPE: XR chest 2V DATE OF EXAM: 05/14/2019 COMPARISON: Prior chest x-ray 03/06/2019 HISTORY: Shortness of breath, difficulty breathing TECHNIQUE: Frontal and lateral views of the chest are obtained. FINDINGS: Extensive emphysematous change, upper lobe soft tissue masses, old right-sided rib fractur es are all again noted. Blunting the right costophrenic angle is again seen. The heart is small. Ther e are overlying cardiac leads. No evident pneumothorax. IMPRESSION: Advanced emphysema with previous CT demonstrated soft tissue masses within the lungs.
[2019-05-14] MEDS ORDERED: HYDROmorphone 1 MG/ML 1 ML SYRINGE IVP STA (14:43)
[2019-05-14] MEDS ORDERED: IPRATROPIUM-ALBUTEROL 3 ML NEB INHALATION PRN ×2 (15:59→16:23)
[2019-05-14] MEDS: methylPREDNISolone SOD SUCCI 125 MG/2 ML VIAL IV SCH ×2 (18:14→23:49)
[2019-05-14] MEDS: HYDROcodone/APAP 10-325MG 1 EACH TAB PO PRN (20:30)
[2019-05-14] MEDS ORDERED: HYOSCYAMINE SULFATE 0.125 MG TAB PO PRN (20:41)
[2019-05-14] MEDS ORDERED: PHENYLEPH PO PRN (20:41)
[2019-05-14] MEDS ORDERED: GUAIFEN PO PRN (20:41)
[2019-05-14] MEDS ORDERED: ALBUTEROL INHALER 60 PUFF/8 GM INHALER INHALATION PRN (20:41)
[2019-05-14] MEDS ORDERED: SUCRALFATE 1 GM TAB PO PRN (20:41)
[2019-05-14] MEDS ORDERED: ALPRAZolam 0.25 MG TAB PO PRN (20:41)
[2019-05-14] MEDS ORDERED: MUPIROCIN 2% OINT 22 GM TUBE TOPICAL PRN (20:41)
[2019-05-14] MEDS ORDERED: DICYCLOMINE 10 MG CAP PO PRN (20:41)
[2019-05-14] MEDS ORDERED: ALBUTEROL NEBULIZED 2.5 MG/3 ML INHALATION PRN (20:41)
[2019-05-14] MEDS ORDERED: NYSTATIN 100,000 UNIT/ML SUSP 500,000 UNIT/5 ML CUP PO PRN (20:41)
[2019-05-14] MEDS ORDERED: ACETAMINOPHN PO PRN (20:41)
[2019-05-14] MEDS ORDERED: [UNRECOGNIZED DRUG - OTHER] PO PRN (20:41)
[2019-05-14] MEDS ORDERED: BUDESONIDE 1 MG/2 ML NEBU INHALATION PRN (20:41)
[2019-05-14] MEDS ORDERED: ONDANSETRON 4 MG TAB PO PRN (20:41)
[2019-05-14 20:49] LABS: Glucose,Whole Blood 192 mg/dL (75-99)
[2019-05-14] MEDS: INSULIN ASPART (NovoLOG) 100 UNIT/ML VIAL SQ SCH (21:28)
[2019-05-14] MEDS: LATANOPROST 0.005% OPHTH DROPS 2.5 ML BTL BOTH EYES SCH (21:42)
[2019-05-14] MEDS: METOPROLOL TARTRATE 50 MG TAB PO SCH (21:42)
[2019-05-14] MEDS: GABAPENTIN 300 MG CAP PO SCH (21:43)
[2019-05-14] MEDS: DIPHENOX-ATROP 2.5-0.025 MG 1 EACH TAB PO SCH (21:43)
[2019-05-14] MEDS: CALCIUM CARBONATE 500 MG CHEWABLE PO SCH (21:43)
[2019-05-14] MEDS: MERCAPTOPURINE 50 MG TAB PO SCH (21:43)
[2019-05-14] MEDS: MELATONIN 5 MG TABLET PO PRN (23:49)
[2019-05-14] MEDS: HEPARIN SODIUM,PORCINE 5,000 UNIT/ML 1 ML VIAL SQ SCH (23:50)
[2019-05-14] MEDS: busPIRone HCl 10 MG TAB PO PRN (23:50)
[2019-05-15] MEDS: HYDROcodone/APAP 10-325MG 1 EACH TAB PO PRN ×3 (04:19→16:52)
[2019-05-15] MEDS: methylPREDNISolone SOD SUCCI 125 MG/2 ML VIAL IV SCH ×3 (05:37→17:42)
[2019-05-15 07:11] LABS: Glucose,Whole Blood 188 mg/dL (75-99)
[2019-05-15] MEDS: HEPARIN SODIUM,PORCINE 5,000 UNIT/ML 1 ML VIAL SQ SCH ×2 (07:50→16:49)
[2019-05-15] MEDS: CALCIUM CARBONATE 500 MG CHEWABLE PO SCH ×2 (07:51→21:00)
[2019-05-15] MEDS: DULoxetine HCL 30 MG CAPSULE.DR PO SCH (07:51)
[2019-05-15] MEDS: METOPROLOL TARTRATE 50 MG TAB PO SCH ×3 (07:51→21:00)
[2019-05-15] MEDS: PANTOPRAZOLE 40 MG TABLET PO SCH (07:51)
[2019-05-15] MEDS: MAGNESIUM OXIDE 400 MG TAB PO SCH (07:51)
[2019-05-15] MEDS: MERCAPTOPURINE 50 MG TAB PO SCH ×2 (07:52→21:01)
[2019-05-15] MEDS: LIDOCAINE 5% PATCH TOPICAL SCH (07:53)
[2019-05-15] MEDS: DIPHENOX-ATROP 2.5-0.025 MG 1 EACH TAB PO SCH ×3 (07:53→21:00)
[2019-05-15] MEDS: GABAPENTIN 300 MG CAP PO SCH ×3 (07:56→21:00)
[2019-05-15] MEDS: IPRATROPIUM 0.5 MG/2.5 ML NEBU INHALATION SCH ×2 (08:35→12:39)
[2019-05-15] MEDS: SYMBICORT 160-4.5 MCG INHALER INHALATION SCH ×2 (08:55→20:10)
[2019-05-15] MEDS: INSULIN ASPART (NovoLOG) 100 UNIT/ML VIAL SQ SCH ×4 (09:01→21:01)
[2019-05-15] MEDS ORDERED: HYDROcodone/APAP 10-325MG 1 EACH TAB PO PRN (10:00)
[2019-05-15] MEDS: OPIUM TINCTURE PO PRN ×2 (11:39→22:02)
[2019-05-15 11:42] LABS: Anisocytosis Slight; Basophils % (A) 0 %; Eosinophils # (A) 0.1 k/uL (0-0.7); Eosinophils % (A) 1 %; HCT 23.2 % (34.0-46.0); HGB 7.6 gm/dL (11.4-16.0); Hypochromasia Moderate; Lymphocytes # (A) 0.3 k/uL (1.0-4.8); Lymphocytes % (A) 9 %; MCHC 32.8 g/dL (31.0-37.0); MCV 115.7 fL (80.0-100.0); Macrocytosis Marked; Mean Platelet Volume 9.4; Monocytes # (A) 0.1 k/uL (0-1.0); Monocytes % (A) 3 %; Neutrophils # (A) 3.3 k/uL (1.3-7.7); Neutrophils % (A) 87 %; Poikilocytosis Slight; RDW 18.1 % (11.5-15.5); WBC 3.9 k/uL (3.8-10.6)
[2019-05-15 11:59] LABS: ALT 127 U/L (9-52); AST 53 U/L (14-36); African American GFR (CKD) >90 (>60 ml/min/1.73 sqM); Albumin 2.7 g/dL (3.5-5.0); Alkaline Phosphatase 105 U/L (38-126); Anion Gap 1 mmol/L; Blood Urea Nitrogen 21 mg/dL (7-17); Calcium 8.6 mg/dL (8.4-10.2); Carbon Dioxide 38 mmol/L (22-30); Chloride 101 mmol/L (98-107); Glucose 122 mg/dL (74-99); Potassium 4.8 mmol/L (3.5-5.1); Sodium 140 mmol/L (137-145); Total Bilirubin 0.6 mg/dL (0.2-1.3); Total Protein 4.9 g/dL (6.3-8.2)
[2019-05-15 11:59] LABS: Glucose,Whole Blood 143 mg/dL (75-99)
[2019-05-15 12:01] LABS: Platelet Count 63 k/uL (150-450)
[2019-05-15] MEDS ORDERED: IPRATROPIUM-ALBUTEROL 3 ML NEB INHALATION PRN (13:26)
--- NOTE | 2019-05-15 13:33 | P.CNPUL ---
History of Present Illness Consult date: 05/15/19 Reason for consult: dyspnea, COPD, hypoxemia Chief complaint: Shortness of breath History of present illness: This is a 58-year-old female with past medical history of severe bullous emphysema with chronic hypoxemic respiratory failure, hypertension, hyperlipidemia, previous episodes of pneumonia requiring intubation and placement on mechanical ventilator, GERD/reflux, Crohn's disease, multiple bowel surgeries including total colectomy/ileostomy, former smoker, anxiety, depression. Patient follows with Dr. Mistry in the pulmonary clinic. She has underlying FEV1 value of 36% of predicted and a chronic left upper lobe inflammatory capacity that was nonmalignant. Patient has had previous episodes of prolonged respiratory failure requiring mechanical ventilation and placement of tracheostomy and a PEG tube with subsequent liberation from mechanical ventilation and decannulation. Patient had previously been referred to the [facility] for possible lung reduction surgery bullectemy however the thoracic surgeon felt that patient needs lung transplantation instead. Patient was seen at [facility] for the lung transplants, and was told that she needs to be off all narcotics for a few months. Patient is regularly on Rydal for chronic pain syndrome. On 05/14/2019 patient presented to the emergency department, with complaints of a weeklong history of worsening shortness of breath on exertion, patient states she was highly able to walk to the bathroom related to shortness of breath, she would desaturate rapidly even on her home dose oxygen, and he would take a while for her to recover. Been complaining of a substantial cough with no phlegm production. She denied any fever or chills, denied any chest discomfort, denies any palpitations, no nausea vomiting or diarrhea. Chest x-ray showed advanced emphysema with previously noted upper lobe soft tissue masses, old right-sided rib fractures, no evident pneumothorax. Patient is afebrile, hemodynamically stable, pulse ox on 3 L of oxygen is 94%. Lung sounds are diminished, with end expiratory wheezes, patient has coughing spells without phlegm production. Lab work was reviewed, and admission lab work showed white blood cell, 4.6, hemoglobin of 8.5, platelet count of 93, sodium of 138, potassium is 4.7, chloride is 96, CO2 37, B1 is 20 creatinine is 0.56. AST was 96, ALT was 169, alkaline phosphatase was 111, troponin was negative 1, proBNP was 204. Patient was started on IV steroids, nebulized bronchodilators. Review of Systems All systems: negative Constitutional: Reports weakness, Denies chills, Denies fever Eyes: denies blurred vision, denies pain Ears, nose, mouth and throat: Denies headache, Denies sore throat Cardiovascular: Denies chest pain, Denies shortness of breath Respiratory: Reports cough with sputum, Reports dyspnea, Reports home oxygen, Reports respiratory infections, Reports wheezing, Denies cough Gastrointestinal: Denies abdominal pain, Denies diarrhea, Denies nausea, Denies vomiting Genitourinary: Denies dysuria, Denies hematuria Musculoskeletal: Denies myalgias Integumentary: Denies pruritus, Denies rash Neurological: Denies numbness, Denies weakness Psychiatric: Denies anxiety, Denies depression Endocrine: Denies fatigue, Denies weight change Past Medical History Past Medical History: COPD, Eye Disorder, Fibromyalgia, GERD/Reflux, GI Bleed, Osteoarthritis (OA), Pneumonia, Syncope, Thyroid Disorder Additional Past Medical History / Comment(s): Pt states she recently had an appt on [facility] on 04/04/19 and she is going to be going on a lung transplant list after she completes her paperwork/prior requirments, crohn's colitis, ulcerative colitis, bowel obstructions, multiple bowel surgeries including total colectomy/ileostomy, severe COPD, chronic respiratory failure, home O2 3L/NC, bollous emphysema/ruptured bollous, R lung bleb R pneumothorax x3, L pneumothorax x1 and had bilateral pneumothorax 09/2018-acute respiratory failure/vented/cardiac arrest, tachycardia, myopathy, IVIG infusions, hiatal hernia, lower GI bleeds, arthritis in multiple joints, osteoporosis, chronic pain, seasonal allergies, bilateral glaucoma and has had bilateral eye surgery for retinal tears/holes, vitamin D and B12 deficiencies, hypothyroid, moderate protein calorie malnutrition. History of Any Multi-Drug Resistant Organisms: None Reported Past Surgical History: Breast Surgery, Cholecystectomy, Hernia Repair, Hysterectomy, Orthopedic Surgery Additional Past Surgical History / Comment(s): Multiple bowel surgeries including total colectomy/ileostomy, ileostomy moved/repaired, R salpingoophorectomy due to ectopic , total hysterectomy, LEEP procedure, laparoscopy for endometriosis, L breast lumpectomy-benign, r breast core bx-benign, R inguinal hernia repair, EGD/colonoscopies, right thoravent x2, arthroscopic knee surgery on the Left due to ACL and Meniscal tear, trach and peg tube-since removed. bone marrow biopsy and aspirate Past Anesthesia/Blood Transfusion Reactions: No Reported Reaction Additional Past Anesthesia/Blood Transfusion Reaction / Comment(s): Never recieved blood transfusion Past Psychological History: Anxiety, Depression Additional Psychological History / Comment(s): Pt is staying with her sister who has a one level home. Her spouse is staying between their home to care for the dogs and pt's sister's house. Pt uses 02 3l n/c atc, has nebulizer, walker. Smoking Status: Former smoker Past Alcohol Use History: None Reported Additional Past Alcohol Use History / Comment(s): Patient used to smoke 1 pack per day since she was 17 and smoked for 30 years and quit in January 2017. Past Drug Use History: None Reported - Past Family History Mother Family Medical History: Cancer, COPD, Hypertension Additional Family Medical History / Comment(s): Mother at age 83 from COPD and had osteoarthritis and skin cancer. Father Family Medical History: Cancer, CVA/TIA, Dementia, Diabetes Mellitus Additional Family Medical History / Comment(s): Father is 92 yrs old. He has had several TIAs and a CVA Brother(s) Family Medical History: Cancer Additional Family Medical History / Comment(s): Patient had 5 brothers and one of them from melanoma at age 41. Sister(s) History Unknown: Yes Family Medical History: No Reported History Additional Family Medical History / Comment(s): Patient has one sister. Patient has no children Medications and Allergies Home Medications Medication Instructions Recorded Confirmed Type Latanoprost Ophth [Xalatan 0.005%] 1 drop BOTH EYES HS 05/21/17 05/14/19 History Dicyclomine [Bentyl] 10 mg PO TID PRN 07/24/18 05/14/19 History Budesonide 1 mg INHALATION RT-BID PRN 09/27/18 05/14/19 History Gabapentin [Neurontin] 300 mg PO TID 09/27/18 05/14/19 History HYDROcodone/APAP 10-325MG [Rydal 1 tab PO Q4H PRN 09/27/18 05/14/19 History 10-325] Opium Tincture 10mg/1ml 20 mg PO QID PRN 09/27/18 05/14/19 History Albuterol Nebulized [Ventolin 2.5 mg INHALATION RT-QID PRN #120 11/10/18 Rx Nebulized] nebu Metoprolol Tartrate [Lopressor] 50 mg PO TID #90 tab 11/10/18 05/14/19 Rx Aclidinium Perkins [Tudorza 1 puff INHALATION RT-BID 11/29/18 05/14/19 History Pressair] Fluticasone/Vilanterol [Breo 1 puff INHALATION RT-DAILY 11/29/18 05/14/19 History Ellipta 200-25 Mcg INH] Guaifen/Phenyleph/Acetaminophn 10 ml PO Q6H PRN 11/29/18 05/14/19 History [Mucinex Sinus-Max Severe Liq] Mercaptopurine [Purinethol] 50 mg PO BID 11/29/18 05/14/19 History busPIRone HCl [Buspar] 10 mg PO BID PRN 11/29/18 05/14/19 History ALPRAZolam [Xanax] 0.25 mg PO DAILY PRN 12/28/18 05/14/19 History Adalimumab [Humira(Cf) Pen] 40 mg SQ Q7D 12/28/18 05/14/19 History DULoxetine HCL [Cymbalta] 30 mg PO DAILY 12/28/18 05/14/19 History Hyoscyamine Sulfate [Levsin] 0.125 mg PO Q4H PRN #90 tab 02/05/19 05/14/19 Rx Albuterol Sulfate [Proair Hfa] 2 puff INHALATION RT-Q6H PRN 03/26/19 05/14/19 History Calcium Gummies 500mg 500 mg PO BID 03/26/19 05/14/19 History Diphenox-Atrop 2.5-0.025 mg 1 tab PO TID 03/26/19 05/14/19 History [Lomotil] Magnesium Oxide [Adan] 500 mg PO DAILY 03/26/19 05/14/19 History Melatonin 10 mg PO HS PRN 03/26/19 05/14/19 History Mirtazapine [Remeron] 7.5 mg PO HS@1900 03/26/19 05/14/19 History Mupirocin 2% Oint [Bactroban 2% 1 applic TOPICAL DAILY PRN 03/26/19 05/14/19 History Oint] Nystatin 100,000 Unit/ml Susp 5 ml PO QID PRN 03/26/19 05/14/19 History [Mycostatin Oral Susp] Ondansetron HCl [Zofran] 4 mg PO BID PRN 03/26/19 05/14/19 History Pantoprazole [Protonix] 40 mg PO QAM 03/26/19 05/14/19 History Lidocaine 5% Patch [Lidoderm 5% 1 patch TOPICAL DAILY 04/16/19 05/14/19 History Patch] Sucralfate [Carafate] 1 gm PO TID PRN 04/16/19 05/14/19 History Allergies Allergy/AdvReac Type Severity Reaction Status Date / Time Iodinated Contrast- Oral and Allergy Anaphylaxis Verified 05/14/19 12:41 IV Dye pregabalin [From Lyrica] Allergy Unknown Verified 05/14/19 12:41 rofecoxib [From Vioxx] Allergy Unknown Verified 05/14/19 12:41 Sulfa (Sulfonamide Allergy Rash/Hives Verified 05/14/19 12:41 Antibiotics) aspirin AdvReac Internal Verified 05/14/19 12:41 Bleeding timolol [Timolol] AdvReac Nausea & Verified 05/14/19 12:41 Vomiting Physical Exam Vitals: Vital Signs Temp Pulse Pulse Resp BP BP Pulse Ox 05/15/19 12:59 96 05/15/19 12:48 96 05/15/19 08:45 92 05/15/19 08:35 92 05/15/19 06:32 97.7 F 82 17 105/70 100 05/14/19 21:45 98.1 F 113 H 20 119/66 94 L 05/14/19 21:12 95 05/14/19 20:00 93 L 05/14/19 17:41 98.1 F 103 H 20 120/78 97 05/14/19 16:36 98.0 F 102 H 20 95/65 98 05/14/19 16:30 94 18 97/64 05/14/19 16:00 91 21 90/62 97 05/14/19 15:30 97 26 H 95/61 05/14/19 15:00 101 H 52 H 107/69 96 05/14/19 14:30 97 13 85/68 95 05/14/19 14:00 105 H 16 107/62 96 05/14/19 13:33 112 H 05/14/19 13:30 108 H 15 99/63 99 05/14/19 13:25 114 H 05/14/19 13:11 106 H Intake and Output 05/14/19 05/15/19 05/15/19 22:59 06:59 14:59 Intake Total 200 200 0 Balance 200 200 0 Intake: Oral 200 200 0 Other: Voiding Method Bedside Commode Bedside Commode # Voids 1 1 # Bowel Movements 1 GENERAL EXAM: Alert, pleasant, 58-year-old chronically ill looking white female, on 3 L of oxygen comfortable in no apparent distress. HEAD: Normocephalic/atraumatic. EYES: Normal reaction of pupils, equal size. Conjunctiva pink, sclera white. NOSE: Clear with pink turbinates. THROAT: No erythema or exudates. NECK: No masses, no JVD, no thyroid enlargement, no adenopathy. CHEST: No chest wall deformity. Symmetrical expansion. LUNGS: Equal air entry with diminished air entry bilaterally, with end expiratory wheezes CVS: Regular rate and rhythm, normal S1 and S2, no gallops, no murmurs, no rubs ABDOMEN: Soft, nontender. No hepatosplenomegaly, normal bowel sounds, no guarding or rigidity. EXTREMITIES: No clubbing, no edema, no cyanosis, 2+ pulses and upper and lower extremities. MUSCULOSKELETAL: Muscle strength and tone normal. SPINE: No scoliosis or deformity SKIN: No rashes CENTRAL NERVOUS SYSTEM: Alert and oriented -3. No focal deficits, tone is normal in all 4 extremities. PSYCHIATRIC: Alert and oriented -3. Appropriate affect. Intact judgment and insight. Results - Laboratory Findings CBC and BMP: 05/15/19 11:12 05/15/19 11:12 PT/INR, D-dimer PT 10.2 sec (9.0-12.0) 05/14/19 12:29 INR 0.9 (<1.2) 05/14/19 12:29 Abnormal lab findings: Abnormal Labs 05/14/19 05/14/19 05/14/19 12:29 12:29 20:37 RBC 2.33 L Hgb 8.5 L Hct 26.6 L MCV 113.9 H MCH 36.6 H RDW 18.1 H Plt Count 93 L Lymphocytes # 0.4 L Macrocytosis Marked A Chloride 96 L Carbon Dioxide 37 H BUN 20 H Glucose 204 H POC Glucose (mg/dL) 192 H Total Bilirubin 1.6 H AST 96 H ALT 169 H Total Protein 5.5 L Albumin 3.2 L 05/15/19 05/15/19 05/15/19 07:02 11:12 11:12 RBC 2.00 L Hgb 7.6 L Hct 23.2 L MCV 115.7 H MCH 38.0 H RDW 18.1 H Plt Count 63 L Lymphocytes # Macrocytosis Marked A Chloride Carbon Dioxide 38 H BUN 21 H Glucose 122 H POC Glucose (mg/dL) 188 H Total Bilirubin AST 53 H ALT 127 H Total Protein 4.9 L Albumin 2.7 L 05/15/19 11:54 RBC Hgb Hct MCV MCH RDW Plt Count Lymphocytes # Macrocytosis Chloride Carbon Dioxide BUN Glucose POC Glucose (mg/dL) 143 H Total Bilirubin AST ALT Total Protein Albumin - Diagnostic Findings Chest x-ray: report reviewed, image reviewed Additional studies: EKG reviewed Assessment and Plan Plan: Assessment: #1. Acute exacerbation of chronic obstructive pulmonary disease, chest x-ray showed chronic changes, without evidence of acute pulmonary process #2. History of severe bullous emphysema, the patient has a large bulla occupying a large portion of the right lung field and it is not of chronic left upper lobe cavitation lesion. This has previously been seen on CT scans and chest x-rays, and appears to be stable in appearance. Patient has been referred for lung transplantation surgery at [facility] #3. Chronic hypoxemic respiratory failure related to advanced COPD/emphysema, with baseline FEV1 value of 36% of predicted, stage III COPD, oxygen and prednisone dependent #4. History of bilateral pneumothoraces requiring placement of bilateral chest tubes. #5. History of brief cardiac arrest following spontaneous pneumothoraces, re quiring intubation and placement on mechanical ventilation, recovered #6. Past episodes of pneumonia requiring intubation and mechanical ventilation, tracheostomy placement of PEG tube placement and patient had since been weaned off and decannulated #7. Chronic left upper lobe inflammatory opacity #8. Hypertension #9. Hyperlipidemia #10. Crohn's disease with history of bowel resection and creation of ileostomy #11. Hypothyroidism #12. Chronic anemia #13. Fibromyalgia #14. Anxiety/depression Plan: We will continue current medical treatments, we will add empiric and device in the form of Augmentin, no clear evidence of pneumonic infiltrate, chronic changes seen on the chest x-ray. Patient is in no acute distress, will continue with nebulized bronchodilators, continue with Symbicort. Chest x-ray have been reviewed. We'll continue to follow I performed a history & physical examination of the patient and discussed their management with my nurse practitioner, Carmella Jimenez. I reviewed the nurse practitioner's note and agree with the documented findings and plan of care. Lung sounds are positive for diminished breath sounds and expiratory wheezes The findings and the impression was discussed with the patient. I attest to the documentation by the nurse practitioner. Time with Patient: Greater than 30
--- NOTE | 2019-05-15 13:58 | FL ---
Modified barium swallow. HISTORY: Dysphagia. Modified barium swallow was performed with the department of speech pathology. The patient was prese nted with various consistencies of barium. There is evidence of mild transient penetration. No evidence for aspiration. Full report is to follow from the department of speech pathology. Impression: There is evidence of mild transient penetration.
[2019-05-15] MEDS: AMOXIC-POT CLAV 875-125MG 1 EACH TAB PO SCH ×2 (14:11→21:00)
--- NOTE | 2019-05-15 14:30 | P.HPIM ---
History of Present Illness H&P Date: 05/15/19 Chief Complaint: Difficulty breathing This is a 58-year-old female patient of Dr. James and Dr. Mistry with history of advanced COPD with extensive bullous changes with FEV1 of 19- 21%, chronic hypoxic respiratory failure on home O2, history of Crohn's colitis with ostomy on Humira, multiple bowel obstructions and multiple bowel surgeries, hyperlipidemia, hypothyroidism, anemia, fibromyalgia, generalized anxiety disorder and recurrent depression. Patient is currently on transplant list at [facility] where she was initially evaluated for embolectomy but surgery was canceled. Patient relates that she is to be weaned off her pain medications except for oh p.m. for 6 months prior to transplant. Patient complains of increasing shortness of breath especially with exertion unable to walk even to the doorway. She states her pulse ox has been dropping at home with minimal activity. The patient is complaining of dysphagia especially with pills. Speech therapy to evaluate. Discussed weaning off [place] and we will change her to one half pill every 4 hours or 1 every 6 hours which patient will decide how she would like to take. Patient presented to [facility] emergency center for evaluation was found to be afebrile, initial blood pressure 102/71, heart rate 113, pulse ox 94% on O2. White count is normal, hemoglobin 8.5, platelet count 93, blood sugar 204. Sodium 138, potassium 4.7, chloride 96, CO2 37, BUN 20 creatinine 0.56. Total bilirubin 1.6, AST 96, ALT 169, alkaline phosphatase 111, proBNP 204. Albumin 3.2. Troponin negative. Chest x-ray shows advanced emphysema with previous CT demonstrated soft tissue masses within the lungs. EKG sinus tachycardia. The patient was admitted to the MedSur floor and started on DuoNeb treatments, Symbicort, IV Solu-Medrol, consult with pulmonary medicine and modified barium swallow ordered. Review of Systems All systems: negative Constitutional: Reports fatigue, Denies anorexia, Denies chills, Denies fever, Denies lethargy, Denies malaise, Denies poor appetite, Denies weakness, Denies weight loss Eyes: denies blurred vision, denies pain Ears, nose, mouth and throat: Reports dysphagia, Denies dental pain, Denies headache, Denies mouth pain, Denies nasal congestion, Denies nasal discharge, Denies sore throat Cardiovascular: Reports decreased exercise tolerance, Reports dyspnea on exertion, Reports shortness of breath, Denies chest pain, Denies edema, Denies leg edema, Denies lightheadedness, Denies syncope Respiratory: Reports cough, Reports dyspnea, Reports home oxygen, Reports respiratory infections, Reports wheezing, Denies excessive sputum, Denies hemoptysis Gastrointestinal: Reports diarrhea, Denies abdominal pain, Denies constipation, Denies loss of appetite, Denies nausea, Denies vomiting Genitourinary: Denies dysuria, Denies hematuria, Denies urgency, Denies urinary frequency Musculoskeletal: Reports muscle weakness, Denies frequent falls, Denies gait dysfunction, Denies myalgias Integumentary: Denies pruritus, Denies rash, Denies wounds Neurological: Denies change in mentation, Denies change in speech, Denies numbness, Denies vertigo, Denies weakness Psychiatric: Denies anxiety, Denies depression Endocrine: Denies fatigue, Denies weight change Past Medical History Past Medical History: COPD, Eye Disorder, Fibromyalgia, GERD/Reflux, GI Bleed, Osteoarthritis (OA), Pneumonia, Syncope, Thyroid Disorder Additional Past Medical History / Comment(s): Pt states she recently had an appt on [facility] on 04/04/19 and she is going to be going on a lung transplant list after she completes her paperwork/prior requirments, crohn's colitis, ulcerative colitis, bowel obstructions, multiple bowel surgeries including total colectomy/ileostomy, severe COPD, chronic respiratory failure, home O2 3L/NC, bollous emphysema/ruptured bollous, R lung bleb R pneumothorax x3, L pneumothorax x1 and had bilateral pneumothorax 09/2018-acute respiratory failure/vented/cardiac arrest, tachycardia, myopathy, IVIG infusions, hiatal hernia, lower GI bleeds, arthritis in multiple joints, osteoporosis, chronic pain, seasonal allergies, bilateral glaucoma and has had bilateral eye surgery for retinal tears/holes, vitamin D and B12 deficiencies, hypothyroid, moderate protein calorie malnutrition. History of Any Multi-Drug Resistant Organisms: None Reported Past Surgical History: Breast Surgery, Cholecystectomy, Hernia Repair, Hysterectomy, Orthopedic Surgery Additional Past Surgical History / Comment(s): Multiple bowel surgeries including total colectomy/ileostomy, ileostomy moved/repaired, R salpingoophorectomy due to ectopic , total hysterectomy, LEEP procedure, laparoscopy for endometriosis, L breast lumpectomy-benign, r breast core bx-benign, R inguinal hernia repair, EGD/colonoscopies, right thoravent x2, arthroscopic knee surgery on the Left due to ACL and Meniscal tear, trach and peg tube-since removed. bone marrow biopsy and aspirate Past Anesthesia/Blood Transfusion Reactions: No Reported Reaction Additional Past Anesthesia/Blood Transfusion Reaction / Comment(s): Never recieved blood transfusion Past Psychological History: Anxiety, Depression Additional Psychological History / Comment(s): Pt is staying with her sister who has a one level home. Her spouse is staying between their home to care for the dogs and pt's sister's house. Pt uses 02 3l n/c atc, has nebulizer, walker. Smoking Status: Former smoker Past Alcohol Use History: None Reported Additional Past Alcohol Use History / Comment(s): Patient used to smoke 1 pack per day since she was 17 and smoked for 30 years and quit in January 2017. Past Drug Use History: None Reported - Past Family History Mother Family Medical History: Cancer, COPD, Hypertension Additional Family Medical History / Comment(s): Mother at age 83 from COPD and had osteoarthritis and skin cancer. Father Family Medical History: Cancer, CVA/TIA, Dementia, Diabetes Mellitus Additional Family Medical History / Comment(s): Father is 92 yrs old. He has had several TIAs and a CVA Brother(s) Family Medical History: Cancer Additional Family Medical History / Comment(s): Patient had 5 brothers and one of them from melanoma at age 41. Sister(s) History Unknown: Yes Family Medical History: No Reported History Additional Family Medical History / Comment(s): Patient has one sister. Patient has no children Medications and Allergies Home Medications Medication Instructions Recorded Confirmed Type Latanoprost Ophth [Xalatan 0.005%] 1 drop BOTH EYES HS 05/21/17 05/14/19 History Dicyclomine [Bentyl] 10 mg PO TID PRN 07/24/18 05/14/19 History Budesonide 1 mg INHALATION RT-BID PRN 09/27/18 05/14/19 History Gabapentin [Neurontin] 300 mg PO TID 09/27/18 05/14/19 History HYDROcodone/APAP 10-325MG [[place] 1 tab PO Q4H PRN 09/27/18 05/14/19 History 10-325] Opium Tincture 10mg/1ml 20 mg PO QID PRN 09/27/18 05/14/19 History Albuterol Nebulized [Ventolin 2.5 mg INHALATION RT-QID PRN #120 11/10/18 05/14/19 Rx Nebulized] nebu Metoprolol Tartrate [Lopressor] 50 mg PO TID #90 tab 11/10/18 05/14/19 Rx Aclidinium Bishop [Tudorza 1 puff INHALATION RT-BID 11/29/18 05/14/19 History Pressair] Fluticasone/Vilanterol [Breo 1 puff INHALATION RT-DAILY 11/29/18 05/14/19 History Ellipta 200-25 Mcg INH] Guaifen/Phenyleph/Acetaminophn 10 ml PO Q6H PRN 11/29/18 05/14/19 History [Mucinex Sinus-Max Severe Liq] Mercaptopurine [Purinethol] 50 mg PO BID 11/29/18 05/14/19 History busPIRone HCl [Buspar] 10 mg PO BID PRN 11/29/18 05/14/19 History ALPRAZolam [Xanax] 0.25 mg PO DAILY PRN 12/28/18 05/14/19 History Adalimumab [Humira(Cf) Pen] 40 mg SQ Q7D 12/28/18 05/14/19 History DULoxetine HCL [Cymbalta] 30 mg PO DAILY 12/28/18 05/14/19 History Hyoscyamine Sulfate [Levsin] 0.125 mg PO Q4H PRN #90 tab 02/05/19 05/14/19 Rx Albuterol Sulfate [Proair Hfa] 2 puff INHALATION RT-Q6H PRN 03/26/19 05/14/19 History Calcium Gummies 500mg 500 mg PO BID 03/26/19 05/14/19 History Diphenox-Atrop 2.5-0.025 mg 1 tab PO TID 03/26/19 05/14/19 History [Lomotil] Magnesium Oxide [Adan] 500 mg PO DAILY 03/26/19 05/14/19 History Melatonin 10 mg PO HS PRN 03/26/19 05/14/19 History Mirtazapine [Remeron] 7.5 mg PO HS@1900 03/26/19 05/14/19 History Mupirocin 2% Oint [Bactroban 2% 1 applic TOPICAL DAILY PRN 03/26/19 05/14/19 History Oint] Nystatin 100,000 Unit/ml Susp 5 ml PO QID PRN 03/26/19 05/14/19 History [Mycostatin Oral Susp] Ondansetron HCl [Zofran] 4 mg PO BID PRN 03/26/19 05/14/19 History Pantoprazole [Protonix] 40 mg PO QAM 03/26/19 05/14/19 History Lidocaine 5% Patch [Lidoderm 5% 1 patch TOPICAL DAILY 04/16/19 05/14/19 History Patch] Sucralfate [Carafate] 1 gm PO TID PRN 04/16/19 05/14/19 History Allergies Allergy/AdvReac Type Severity Reaction Status Date / Time Iodinated Contrast- Oral and Allergy Anaphylaxis Verified 05/14/19 12:41 IV Dye pregabalin [From Lyrica] Allergy Unknown Verified 05/14/19 12:41 rofecoxib [From Vioxx] Allergy Unknown Verified 05/14/19 12:41 Sulfa (Sulfonamide Allergy Rash/Hives Verified 05/14/19 12:41 Antibiotics) aspirin AdvReac Internal Verified 05/14/19 12:41 Bleeding timolol [Timolol] AdvReac Nausea & Verified 05/14/19 12:41 Vomiting Physical Exam Vitals: Vital Signs Temp Pulse Pulse Resp BP BP Pulse Ox 05/15/19 12:59 96 05/15/19 12:48 96 05/15/19 08:45 92 05/15/19 08:35 92 05/15/19 06:32 97.7 F 82 17 105/70 100 05/14/19 21:45 98.1 F 113 H 20 119/66 94 L 05/14/19 21:12 95 05/14/19 20:00 93 L 05/14/19 17:41 98.1 F 103 H 20 120/78 97 05/14/19 16:36 98.0 F 102 H 20 95/65 98 05/14/19 16:30 94 18 97/64 05/14/19 16:00 91 21 90/62 97 05/14/19 15:30 97 26 H 95/61 05/14/19 15:00 101 H 52 H 107/69 96 05/14/19 14:30 97 13 85/68 95 05/14/19 14:00 105 H 16 107/62 96 Intake and Output 05/14/19 05/15/19 05/15/19 22:59 06:59 14:59 Intake Total 200 200 0 Balance 200 200 0 Intake: Oral 200 200 0 Other: Voiding Method Bedside Commode Bedside Commode # Voids 1 1 # Bowel Movements 1 Gen: This is a 58-year-old thin female. She is resting in bed and appears to be comfortable. HEENT: Head is atraumatic, normocephalic. Pupils equal, round. Sclerae is anicteric. NECK: Supple. No JVD. No lymphadenopathy. No thyromegaly. LUNGS: diminished bilaterally with expiratory wheeze. No intercostal retractions. HEART: Regular rate and rhythm. No murmur. ABDOMEN: Soft. Bowel sounds are present. No masses. No tenderness. EXTREMITIES: No pedal edema. No calf tenderness. NEUROLOGICAL: Patient is awake, alert and oriented x3. Cranial nerves 2 through 12 are grossly intact. Results CBC & Chem 7: 05/15/19 11:12 05/15/19 11:12 Labs: Abnormal Lab Results - Last 24 Hours (Table) 05/14/19 05/15/19 05/15/19 Range/Units 20:37 07:02 11:12 RBC 2.00 L (3.80-5.40) m/uL Hgb 7.6 L (11.4-16.0) gm/dL Hct 23.2 L (34.0-46.0) % MCV 115.7 H (80.0-100.0) fL MCH 38.0 H (25.0-35.0) pg RDW 18.1 H (11.5-15.5) % Plt Count 63 L (150-450) k/uL Lymphocytes # 0.3 L (1.0-4.8) k/uL Macrocytosis Marked A Carbon Dioxide (22-30) mmol/L BUN (7-17) mg/dL Glucose (74-99) mg/dL POC Glucose (mg/dL) 192 H 188 H (75-99) mg/dL AST (14-36) U/L ALT (9-52) U/L Total Protein (6.3-8.2) g/dL Albumin (3.5-5.0) g/dL 05/15/19 05/15/19 Range/Units 11:12 11:54 RBC (3.80-5.40) m/uL Hgb (11.4-16.0) gm/dL Hct (34.0-46.0) % MCV (80.0-100.0) fL MCH (25.0-35.0) pg RDW (11.5-15.5) % Plt Count (150-450) k/uL Lymphocytes # (1.0-4.8) k/uL Macrocytosis Carbon Dioxide 38 H (22-30) mmol/L BUN 21 H (7-17) mg/dL Glucose 122 H (74-99) mg/dL POC Glucose (mg/dL) 143 H (75-99) mg/dL AST 53 H (14-36) U/L ALT 127 H (9-52) U/L Total Protein 4.9 L (6.3-8.2) g/dL Albumin 2.7 L (3.5-5.0) g/dL Thrombosis Risk Factor Assmnt - DVT/VTE Prophylaxis DVT/VTE Prophylaxis: Pharmacologic Prophylaxis ordered - Choose All That Apply Each Factor Represents 1 point: Abnormal pulmonary function (COPD), Age 41-60 years, Serious lung disease incl. pneumonia (< 1month) Thrombosis Risk Factor Assessment Total Risk Factor Score: 3 Thrombosis Risk Factor Assessment Level: Moderate Risk Assessment and Plan Plan: 1. Acute exacerbation of COPD. Pulmonary medicine consult appreciated. Continue DuoNeb treatments, Symbicort, Solu-Medrol, Augmentin. 2. Advanced COPD with multiple ruptured bulla and spontaneous pneumothorax in the past, stable. Patient is working with with [facility] transplant team. 3. Chronic hypoxemic and hypercapneic respiratory failure requiring mechanical ventilation in the past and Trach which has since removed. Patient follows with Dr. Mistry on a regular basis. Patient has home O2 at 3 L nasal cannula. 4. History of Crohn's colitis status post subtotal colectomy and ostomy. Patient is to continue Humira, mercaptopurine, Levsin. currently stable. 5. Moderate protein calorie malnutrition. Continue with protein supplement. 6. H/O critical illness myopathy post IVIG infusion. 7. Generalized anxiety disorder. Continue BuSpar to 10 mg orally twice every day and Cymbalta 30 mg daily. 8. Fibromyalgia with bilateral neuropathy. Continue with Gabapentin 300 mg orally tid. 9. Sinus tachycardia. Continue Metoprolol 50 mg orally tid. 10. Vitamin D deficiency. 11. B12 deficiency. Continue with B12 1000 mcg sc q month. 12. Glaucoma. Continue Xalatan. 13. Hypomagnesemia. Continue with magnesium oxide. 14. Chronic pain on [place] 10 mg every 4 hours. Patient states she needs to be weaned off this for 6 months prior to transplant. We have given patient option of one half tablet every 4 hours or 1 tablet every 6 hours. 15. DVT prophylaxis. continue Lovenox 40 mg subcutaneously every day. 16. GI prophylaxis. Continue Carafate. Admit to inpatient. Estimated length of stay 2 midnights. CODE STATUS: Full code. Discharge plan: Return home Impression and plan of care have been directed as dictated by the signing physician. Gaby Rothman nurse practitioner acting as scribe for signing physician.
[2019-05-15 15:46] VITALS: BMI 19.7
[2019-05-15] MEDS: IPRATROPIUM-ALBUTEROL 3 ML NEB INHALATION SCH ×2 (16:10→20:10)
[2019-05-15 17:19] LABS: Glucose,Whole Blood 188 mg/dL (75-99)
[2019-05-15] MEDS: MIRTAZAPINE 15 MG TAB PO SCH (19:19)
[2019-05-15 20:23] LABS: Glucose,Whole Blood 148 mg/dL (75-99)
[2019-05-15] MEDS: MELATONIN 5 MG TABLET PO PRN (21:00)
[2019-05-15] MEDS: LATANOPROST 0.005% OPHTH DROPS 2.5 ML BTL BOTH EYES SCH (21:01)
[2019-05-15] MEDS: busPIRone HCl 10 MG TAB PO PRN (21:22)
[2019-05-16] MEDS: methylPREDNISolone SOD SUCCI 125 MG/2 ML VIAL IV SCH ×5 (00:14→23:48)
[2019-05-16] MEDS: HEPARIN SODIUM,PORCINE 5,000 UNIT/ML 1 ML VIAL SQ SCH ×4 (00:14→23:48)
[2019-05-16] MEDS: HYDROcodone/APAP 10-325MG 1 EACH TAB PO PRN ×4 (00:19→21:54)
[2019-05-16 07:17] LABS: Glucose,Whole Blood 284 mg/dL (75-99)
[2019-05-16] MEDS: SYMBICORT 160-4.5 MCG INHALER INHALATION SCH ×2 (07:51→20:10)
[2019-05-16] MEDS: IPRATROPIUM-ALBUTEROL 3 ML NEB INHALATION SCH ×4 (07:51→20:10)
[2019-05-16] MEDS: MERCAPTOPURINE 50 MG TAB PO SCH ×2 (07:54→21:48)
[2019-05-16] MEDS: DIPHENOX-ATROP 2.5-0.025 MG 1 EACH TAB PO SCH ×4 (07:54→21:48)
[2019-05-16] MEDS: GABAPENTIN 300 MG CAP PO SCH ×3 (07:54→21:48)
[2019-05-16] MEDS: MAGNESIUM OXIDE 400 MG TAB PO SCH (07:54)
[2019-05-16] MEDS: INSULIN ASPART (NovoLOG) 100 UNIT/ML VIAL SQ SCH ×4 (07:54→21:49)
[2019-05-16] MEDS: DULoxetine HCL 30 MG CAPSULE.DR PO SCH (07:54)
[2019-05-16] MEDS: CALCIUM CARBONATE 500 MG CHEWABLE PO SCH ×2 (07:54→21:49)
[2019-05-16] MEDS: METOPROLOL TARTRATE 50 MG TAB PO SCH ×3 (07:54→21:48)
[2019-05-16] MEDS: AMOXIC-POT CLAV 875-125MG 1 EACH TAB PO SCH ×2 (07:54→21:48)
[2019-05-16] MEDS: PANTOPRAZOLE 40 MG TABLET PO SCH (07:54)
[2019-05-16] MEDS: LIDOCAINE 5% PATCH TOPICAL SCH (07:55)
[2019-05-16] MEDS: OPIUM TINCTURE PO PRN ×2 (11:26→17:47)
--- NOTE | 2019-05-16 11:27 | P.PN ---
Subjective Progress Note Date: 05/16/19 Principal diagnosis: Dyspnea, COPD, hypoxemia This is a 58-year-old female with past medical history of severe bullous emphysema with chronic hypoxemic respiratory failure, hypertension, hyperlipidemia, previous episodes of pneumonia requiring intubation and placement on mechanical ventilator, GERD/reflux, Crohn's disease, multiple bowel surgeries including total colectomy/ileostomy, former smoker, anxiety, depression. Patient follows with Dr. Mistry in the pulmonary clinic. She has underlying FEV1 value of 36% of predicted and a chronic left upper lobe inflammatory capacity that was nonmalignant. Patient has had previous episodes of prolonged respiratory failure requiring mechanical ventilation and placement of tracheostomy and a PEG tube with subsequent liberation from mechanical ventilation and decannulation. Patient had previously been referred to the [facility] for possible lung reduction surgery bullectemy however the thoracic surgeon felt that patient needs lung transplantation instead. Patient was seen at [facility] for the lung transplants, and was told that she needs to be off all narcotics for a few months. Patient is regularly on Tamiment for chronic pain syndrome. On 05/14/2019 patient presented to the emergency department, with complaints of a weeklong history of worsening shortness of breath on exertion, patient states she was highly able to walk to the bathroom related to shortness of breath, she would desaturate rapidly even on her home dose oxygen, and he would take a while for her to recover. Been complaining of a substantial cough with no phlegm production. She denied any fever or chills, denied any chest discomfort, denies any palpitations, no nausea vomiting or diarrhea. Chest x-ray showed advanced e mphysema with previously noted upper lobe soft tissue masses, old right-sided rib fractures, no evident pneumothorax. Patient is afebrile, hemodynamically stable, pulse ox on 3 L of oxygen is 94%. Lung sounds are diminished, with end expiratory wheezes, patient has coughing spells without phlegm production. Lab work was reviewed, and admission lab work showed white blood cell, 4.6, hemoglobin of 8.5, platelet count of 93, sodium of 138, potassium is 4.7, chloride is 96, CO2 37, B1 is 20 creatinine is 0.56. AST was 96, ALT was 169, alkaline phosphatase was 111, troponin was negative 1, proBNP was 204. Patient was started on IV steroids, nebulized bronchodilators. On 05/16/2019 patient seen in follow-up on medical surgical floor. She is resting in bed, still has some chest congestion, lots of coughing, and her cough is nonproductive, complaining of some burning in the chest with episodes of coughing, but overall in no acute distress. Remains on 3 L of oxygen with a pulse ox of 100%, she is afebrile, hemodynamically patient is stable, no new labs today, no new chest x-rays. Objective - Vital Signs Vital signs: Vital Signs Temp 97.9 F 05/16/19 05:00 Pulse 80 05/16/19 08:09 Resp 18 05/16/19 05:00 BP 114/74 05/16/19 05:00 Pulse Ox 100 05/16/19 05:00 Intake & Output 05/15/19 05/16/19 05/16/19 18:59 06:59 18:59 Intake Total 480 525 Output Total 300 Balance 180 525 Weight 48.988 kg Intake: Oral 480 525 Output: Stool 300 Other: Voiding Method Bedside Commode Bedside Commode Bedside Commode # Voids 3 1 2 # Bowel Movements 1 - Exam GENERAL EXAM: Alert, pleasant, 58-year-old chronically ill looking white female, on 3 L of oxygen comfortable in no apparent distress. HEAD: Normocephalic/atraumatic. EYES: Normal reaction of pupils, equal size. Conjunctiva pink, sclera white. NOSE: Clear with pink turbinates. THROAT: No erythema or exudates. NECK: No masses, no JVD, no thyroid enlargement, no adenopathy. CHEST: No chest wall deformity. Symmetrical expansion. LUNGS: Equal air entry with diminished air entry bilaterally, with end expiratory wheezes CVS: Regular rate and rhythm, normal S1 and S2, no gallops, no murmurs, no rubs ABDOMEN: Soft, nontender. No hepatosplenomegaly, normal bowel sounds, no guarding or rigidity. EXTREMITIES: No clubbing, no edema, no cyanosis, 2+ pulses and upper and lower extremities. MUSCULOSKELETAL: Muscle strength and tone normal. SPINE: No scoliosis or deformity SKIN: No rashes CENTRAL NERVOUS SYSTEM: Alert and oriented -3. No focal deficits, tone is normal in all 4 extremities. PSYCHIATRIC: Alert and oriented -3. Appropriate affect. Intact judgment and insight. - Labs CBC & Chem 7: 05/15/19 11:12 05/15/19 11:12 Labs: Abnormal Lab Results - Last 24 Hours (Table) 05/15/19 05/15/19 05/15/19 Range/Units 11:12 11:12 11:54 RBC 2.00 L (3.80-5.40) m/uL Hgb 7.6 L (11.4-16.0) gm/dL Hct 23.2 L (34.0-46.0) % MCV 115.7 H (80.0-100.0) fL MCH 38.0 H (25.0-35.0) pg RDW 18.1 H (11.5-15.5) % Plt Count 63 L (150-450) k/uL Lymphocytes # 0.3 L (1.0-4.8) k/uL Macrocytosis Marked A Carbon Dioxide 38 H (22-30) mmol/L BUN 21 H (7-17) mg/dL Glucose 122 H (74-99) mg/dL POC Glucose (mg/dL) 143 H (75-99) mg/dL AST 53 H (14-36) U/L ALT 127 H (9-52) U/L Total Protein 4.9 L (6.3-8.2) g/dL Albumin 2.7 L (3.5-5.0) g/dL 05/15/19 05/15/19 05/16/19 Range/Units 17:05 20:20 07:13 RBC (3.80-5.40) m/uL Hgb (11.4-16.0) gm/dL Hct (34.0-46.0) % MCV (80.0-100.0) fL MCH (25.0-35.0) pg RDW (11.5-15.5) % Plt Count (150-450) k/uL Lymphocytes # (1.0-4.8) k/uL Macrocytosis Carbon Dioxide (22-30) mmol/L BUN (7-17) mg/dL Glucose (74-99) mg/dL POC Glucose (mg/dL) 188 H 148 H 284 H (75-99) mg/dL AST (14-36) U/L ALT (9-52) U/L Total Protein (6.3-8.2) g/dL Albumin (3.5-5.0) g/dL Microbiology - Last 24 Hours (Table) 05/14/19 12:29 Blood Culture - Preliminary Blood No Growth after 24 hours Assessment and Plan Plan: Assessment: #1. Acute exacerbation of chronic obstructive pulmonary disease, chest x-ray showed chronic changes, without evidence of acute pulmonary process #2. History of severe bullous emphysema, the patient has a large bulla occupying a large portion of the right lung field and it is not of chronic left upper lobe cavitation lesion. This has previously been seen on CT scans and chest x-rays, and appears to be stable in appearance. Patient has been referred for lung transplantation surgery at [facility] #3. Chronic hypoxemic respiratory failure related to advanced COPD/emphysema, with baseline FEV1 value of 36% of predicted, stage III COPD, oxygen and prednisone dependent #4. History of bilateral pneumothoraces requiring placement of bilateral chest tubes. #5. History of brief cardiac arrest following spontaneous pneumothoraces, requiring intubation and placement on mechanical ventilation, recovered #6. Past episodes of pneumonia requiring intubation and mechanical ventilation, tracheostomy placement of PEG tube placement and patient had since been weaned off and decannulated #7. Chronic left upper lobe inflammatory opacity #8. Hypertension #9. Hyperlipidemia #10. Crohn's disease with history of bowel resection and creation of ileostomy #11. Hypothyroidism #12. Chronic anemia #13. Fibromyalgia #14. Anxiety/depression Plan: Continue current antibiotic coverage, continue nebulized bronchodilators, cough syrup, Symbicort. Vital signs are stable, patient is afebrile, still has severe episodes of coughing, nonproductive. We'll continue with IV steroids. Not ready for discharge. Will continue to follow I performed a history & physical examination of the patient and discussed their management with my nurse practitioner, Carmella Jimenez. I reviewed the nurse practitioner's note and agree with the documented findings and plan of care. Lung sounds are positive for diminished breath sounds and expiratory wheezes The findings and the impression was discussed with the patient. I attest to the documentation by the nurse practitioner. Time with Patient: Less than 30
[2019-05-16 12:17] LABS: Glucose,Whole Blood 124 mg/dL (75-99)
--- NOTE | 2019-05-16 14:03 | P.PN ---
Subjective Progress Note Date: 05/16/19 This is a 58-year-old female patient of Dr. James and Dr. Mistry with history of advanced COPD with extensive bullous changes with FEV1 of 19- 21%, chronic hypoxic respiratory failure on home O2, history of Crohn's colitis with ostomy on Humira, multiple bowel obstructions and multiple bowel surgeries, hyperlipidemia, hypothyroidism, anemia, fibromyalgia, generalized anxiety disorder and recurrent depression. Patient is currently on transplant list at [facility] where she was initially evaluated for embolectomy but surgery was canceled. Patient relates that she is to be weaned off her pain medications except for oh p.m. for 6 months prior to transplant. Patient complains of increasing shortness of breath especially with exertion unable to walk even to the doorway. She states her pulse ox has been dropping at home with minimal activity. The patient is complaining of dysphagia especially with pills. Speech therapy to evaluate. Discussed weaning off [place] and we will c hange her to one half pill every 4 hours or 1 every 6 hours which patient will decide how she would like to take. Patient presented to [facility] emergency center for evaluation was found to be afebrile, initial blood pressure 102/71, heart rate 113, pulse ox 94% on O2. White count is normal, hemoglobin 8.5, platelet count 93, blood sugar 204. Sodium 138, potassium 4.7, chloride 96, CO2 37, BUN 20 creatinine 0.56. Total bilirubin 1.6, AST 96, ALT 169, alkaline phosphatase 111, proBNP 204. Albumin 3.2. Troponin negative. Chest x-ray shows advanced emphysema with previous CT demonstrated soft tissue masses within the lungs. EKG sinus tachycardia. The patient was admitted to the MedSurg floor and started on DuoNeb treatments, Symbicort, IV Solu-Medrol, consult with pulmonary medicine and modified barium swallow ordered. 05/16: The patient states that her breathing is still pretty rough. She had significant shortness of breath getting to the commode chair and also she states her pulse ox drops by 5-10.6. She is feeling tired today. She is doing well with the decreased frequency of the [place]. Blood sugars running between 124 and 284. Solu-Medrol remains at 60 mg IV every 6 hours. Objective - Vital Signs Vital signs: Vital Signs Temp 97.9 F 05/16/19 05:00 Pulse 92 05/16/19 11:57 Resp 18 05/16/19 05:00 BP 114/74 05/16/19 05:00 Pulse Ox 100 05/16/19 05:00 Intake & Output 05/15/19 05/16/19 05/16/19 18:59 06:59 18:59 Intake Total 480 525 Output Total 300 Balance 180 525 Weight 48.988 kg Intake: Oral 480 525 Output: Stool 300 Other: Voiding Method Bedside Commode Bedside Commode Bedside Commode # Voids 3 1 2 # Bowel Movements 1 - Exam Review of Systems Constitutional: Reports fatigue, Denies anorexia, Denies chills, Denies fever, Denies lethargy, Denies malaise, Denies poor appetite, Denies weakness, Denies weight loss Eyes: denies blurred vision, denies pain Ears, nose, mouth and throat: Reports dysphagia, Denies dental pain, Denies headache, Denies mouth pain, Denies nasal congestion, Denies nasal discharge, Denies sore throat Cardiovascular: Reports decreased exercise tolerance, Reports dyspnea on exertion, Reports shortness of breath, Denies chest pain, Denies edema, Denies leg edema, Denies lightheadedness, Denies syncope Respiratory: Reports cough, Reports dyspnea, Reports home oxygen, Reports respiratory infections, Reports wheezing, Denies excessive sputum, Denies hemoptysis Gastrointestinal: Reports diarrhea, Denies abdominal pain, Denies constipation, Denies loss of appetite, Denies nausea, Denies vomiting Genitourinary: Denies dysuria, Denies hematuria, Denies urgency, Denies urinary frequency Musculoskeletal: Reports muscle weakness, Denies frequent falls, Denies gait dysfunction, Denies myalgias Integumentary: Denies pruritus, Denies rash, Denies wounds Neurological: Denies change in mentation, Denies change in speech, Denies numbness, Denies vertigo, Denies weakness Psychiatric: Denies anxiety, Denies depression Endocrine: Denies fatigue, Denies weight change Gen: This is a 58-year-old thin female. She is resting in bed and appears to be comfortable and in no acute distress. HEENT: Head is atraumatic, normocephalic. Pupils equal, round. Sclerae is anicteric. NECK: Supple. No JVD. No lymphadenopathy. No thyromegaly. LUNGS: diminished bilaterally with expiratory wheeze. No intercostal retr actions. HEART: Regular rate and rhythm. No murmur. ABDOMEN: Soft. Bowel sounds are present. No masses. No tenderness. EXTREMITIES: No pedal edema. No calf tenderness. NEUROLOGICAL: Patient is awake, alert and oriented x3. Cranial nerves 2 through 12 are grossly intact. - Labs CBC & Chem 7: 05/15/19 11:12 05/15/19 11:12 Labs: Abnormal Lab Results - Last 24 Hours (Table) 05/15/19 05/15/19 05/16/19 Range/Units 17:05 20:20 07:13 POC Glucose (mg/dL) 188 H 148 H 284 H (75-99) mg/dL 05/16/19 Range/Units 12:12 POC Glucose (mg/dL) 124 H (75-99) mg/dL Microbiology - Last 24 Hours (Table) 05/14/19 12:29 Blood Culture - Preliminary Blood No Growth after 24 hours Assessment and Plan Plan: 1. Acute exacerbation of COPD. Pulmonary medicine consult appreciated. Continue DuoNeb treatments, Symbicort, Solu-Medrol, Augmentin. Solu-Medrol currently at 60 mg IV every 6 hours. 2. Advanced COPD with multiple ruptured bulla and spontaneous pneumothorax in the past, stable. Patient is working with with [facility] transplant team. 3. Chronic hypoxemic and hypercapneic respiratory failure requiring mechanical ventilation in the past and Trach which has since removed. Patient follows with Dr. Mistry on a regular basis. Patient has home O2 at 3 L nasal cannula. 4. History of Crohn's colitis status post subtotal colectomy and ostomy. Patient is to continue Humira, mercaptopurine, Levsin. currently stable. 5. Moderate protein calorie malnutrition. Continue with protein supplement. 6. H/O critical illness myopathy post IVIG infusion. 7. Generalized anxiety disorder. Continue BuSpar to 10 mg orally twice every day and Cymbalta 30 mg daily. 8. Fibromyalgia with bilateral neuropathy. Continue with Gabapentin 300 mg orally tid. 9. Sinus tachycardia. Continue Metoprolol 50 mg orally tid. 10. Vitamin D deficiency. 11. B12 deficiency. Continue with B12 1000 mcg sc q month. 12. Glaucoma. Continue Xalatan. 13. Hypomagnesemia. Continue with magnesium oxide. 14. Chronic pain on [place] 10 mg every 4 hours. Patient states she needs to be weaned off this for 6 months prior to transplant. [place] 10 mg every 6 hours as needed. 15. DVT prophylaxis. continue Lovenox 40 mg subcutaneously every day. 16. GI prophylaxis. Continue Carafate. CODE STATUS: Full code. Discharge plan: Return home Impression and plan of care have been directed as dictated by the signing physician. Gaby Rothman nurse practitioner acting as scribe for signing physician.
[2019-05-16 17:26] LABS: Glucose,Whole Blood 272 mg/dL (75-99)
[2019-05-16 20:33] LABS: Glucose,Whole Blood 182 mg/dL (75-99)
[2019-05-16] MEDS: LATANOPROST 0.005% OPHTH DROPS 2.5 ML BTL BOTH EYES SCH (21:49)
[2019-05-16] MEDS: MIRTAZAPINE 15 MG TAB PO SCH (21:49)
[2019-05-16] MEDS: MELATONIN 5 MG TABLET PO PRN (21:54)
[2019-05-16] MEDS: busPIRone HCl 10 MG TAB PO PRN (21:55)
[2019-05-17] MEDS: HYDROcodone/APAP 10-325MG 1 EACH TAB PO PRN ×3 (03:35→17:39)
[2019-05-17] MEDS: OPIUM TINCTURE PO PRN ×3 (05:44→17:56)
[2019-05-17] MEDS: methylPREDNISolone SOD SUCCI 125 MG/2 ML VIAL IV SCH (05:47)
[2019-05-17] MEDS: IPRATROPIUM-ALBUTEROL 3 ML NEB INHALATION SCH ×4 (07:00→18:42)
[2019-05-17] MEDS: SYMBICORT 160-4.5 MCG INHALER INHALATION SCH ×2 (07:00→18:42)
[2019-05-17] MEDS: MAGNESIUM OXIDE 400 MG TAB PO SCH (07:05)
[2019-05-17] MEDS: CALCIUM CARBONATE 500 MG CHEWABLE PO SCH ×2 (07:05→21:56)
[2019-05-17] MEDS: GABAPENTIN 300 MG CAP PO SCH ×3 (07:05→21:56)
[2019-05-17 07:06] LABS: Glucose,Whole Blood 367 mg/dL (75-99)
[2019-05-17] MEDS: HEPARIN SODIUM,PORCINE 5,000 UNIT/ML 1 ML VIAL SQ SCH ×2 (07:06→16:10)
[2019-05-17] MEDS: INSULIN ASPART (NovoLOG) 100 UNIT/ML VIAL SQ SCH ×4 (07:06→22:06)
[2019-05-17] MEDS: DULoxetine HCL 30 MG CAPSULE.DR PO SCH (07:06)
[2019-05-17] MEDS: PANTOPRAZOLE 40 MG TABLET PO SCH (07:06)
[2019-05-17] MEDS: DIPHENOX-ATROP 2.5-0.025 MG 1 EACH TAB PO SCH ×3 (07:06→21:56)
[2019-05-17] MEDS: AMOXIC-POT CLAV 875-125MG 1 EACH TAB PO SCH ×2 (07:06→21:56)
[2019-05-17] MEDS: METOPROLOL TARTRATE 50 MG TAB PO SCH ×3 (07:06→22:06)
[2019-05-17] MEDS: MERCAPTOPURINE 50 MG TAB PO SCH ×2 (07:07→22:33)
[2019-05-17] MEDS: LIDOCAINE 5% PATCH TOPICAL SCH (07:07)
[2019-05-17 10:41] LABS: Anisocytosis Slight; Basophils % (A) 0 %; Eosinophils % (A) 0 %; HCT 29.7 % (34.0-46.0); Hypochromasia Marked; Lymphocytes # (A) 0.3 k/uL (1.0-4.8); Lymphocytes % (A) 4 %; MCH 37.2 pg (25.0-35.0); MCHC 31.5 g/dL (31.0-37.0); Macrocytosis Marked; Mean Platelet Volume 9.9; Monocytes # (A) 0.2 k/uL (0-1.0); Monocytes % (A) 3 %; Neutrophils # (A) 6.3 k/uL (1.3-7.7); Neutrophils % (A) 92 %; Poikilocytosis Slight; RBC 2.52 m/uL (3.80-5.40); RDW 18.1 % (11.5-15.5); WBC 6.8 k/uL (3.8-10.6)
[2019-05-17 10:45] LABS: HGB 9.4 gm/dL (11.4-16.0); Platelet Count 89 k/uL (150-450)
--- NOTE | 2019-05-17 10:49 | P.PN ---
Subjective Progress Note Date: 05/17/19 Principal diagnosis: Dyspnea, COPD, hypoxemia This is a 58-year-old female with past medical history of severe bullous emphysema with chronic hypoxemic respiratory failure, hypertension, hyperlipidemia, previous episodes of pneumonia requiring intubation and placement on mechanical ventilator, GERD/reflux, Crohn's disease, multiple bowel surgeries including total colectomy/ileostomy, former smoker, anxiety, depression. Patient follows with Dr. Mistry in the pulmonary clinic. She has underlying FEV1 value of 36% of predicted and a chronic left upper lobe inflammatory capacity that was nonmalignant. Patient has had previous episodes of prolonged respiratory failure requiring mechanical ventilation and placement of tracheostomy and a PEG tube with subsequent liberation from mechanical ventilation and decannulation. Patient had previously been referred to the [facility] for possible lung reduction surgery bullectemy however the thoracic surgeon felt that patient needs lung transplantation instead. Patient was seen at [facility] for the lung transplants, and was told that she needs to be off all narcotics for a few months. Patient is regularly on [place] for chronic pain syndrome. On 05/14/2019 patient presented to the emergency department, with complaints of a weeklong history of worsening shortness of breath on exertion, patient states she was highly able to walk to the bathroom related to shortness of breath, she would desaturate rapidly even on her home dose oxygen, and he would take a while for her to recover. Been complaining of a substantial cough with no phlegm production. She denied any fever or chills, denied any chest discomfort, denies any palpitations, no nausea vomiting or diarrhea. Chest x-ray showed advanced e mphysema with previously noted upper lobe soft tissue masses, old right-sided rib fractures, no evident pneumothorax. Patient is afebrile, hemodynamically stable, pulse ox on 3 L of oxygen is 94%. Lung sounds are diminished, with end expiratory wheezes, patient has coughing spells without phlegm production. Lab work was reviewed, and admission lab work showed white blood cell, 4.6, hemoglobin of 8.5, platelet count of 93, sodium of 138, potassium is 4.7, chloride is 96, CO2 37, B1 is 20 creatinine is 0.56. AST was 96, ALT was 169, alkaline phosphatase was 111, troponin was negative 1, proBNP was 204. Patient was started on IV steroids, nebulized bronchodilators. On 05/16/2019 patient seen in follow-up on medical surgical floor. She is resting in bed, still has some chest congestion, lots of coughing, and her cough is nonproductive, complaining of some burning in the chest with episodes of coughing, but overall in no acute distress. Remains on 3 L of oxygen with a pulse ox of 100%, she is afebrile, hemodynamically patient is stable, no new labs today, no new chest x-rays. On 05/17/2018 patient seen in follow-up on medical surgical floor. She is resting comfortably in bed, in no acute distress, she states she is breathing easier, still has some coughing, and she states her stomach cultures with coughing, as no acute events overnight. Sounds are diminished with a few scattered rhonchi. She is on 3 L of oxygen, sats at 98%, no fever or chills, he states she is feeling less dyspneic, was get up and take a shower today. Today's labs have been reviewed, showing white blood cell count of 6.8, hemoglobin of 9.4. Her culture showed no growth. Continue current medical treatment. From pulmonary perspective she could be considered for discharge home either today or next 24 hours Objective - Vital Signs Vital signs: Vital Signs Temp 98.0 F 05/17/19 05:00 Pulse 104 H 05/17/19 07:16 Resp 20 05/17/19 05:00 BP 136/83 05/17/19 05:00 Pulse Ox 98 05/17/19 05:00 Intake & Output 05/16/19 05/17/19 05/17/19 18:59 06:59 18:59 Intake Total 600 240 Balance 600 240 Intake: Oral 600 240 Other: Voiding Method Bedside Commode Bedside Commode Bedside Commode # Voids 2 2 # Bowel Movements 1 - Exam GENERAL EXAM: Alert, pleasant, 58-year-old chronically ill looking white female, on 3 L of oxygen comfortable in no apparent distress. HEAD: Normocephalic/atraumatic. EYES: Normal reaction of pupils, equal size. Conjunctiva pink, sclera white. NOSE: Clear with pink turbinates. THROAT: No erythema or exudates. NECK: No masses, no JVD, no thyroid enlargement, no adenopathy. CHEST: No chest wall deformity. Symmetrical expansion. LUNGS: Equal air entry with diminished air entry bilaterally, with end expi ratory wheezes CVS: Regular rate and rhythm, normal S1 and S2, no gallops, no murmurs, no rubs ABDOMEN: Soft, nontender. No hepatosplenomegaly, normal bowel sounds, no guarding or rigidity. EXTREMITIES: No clubbing, no edema, no cyanosis, 2+ pulses and upper and lower extremities. MUSCULOSKELETAL: Muscle strength and tone normal. SPINE: No scoliosis or deformity SKIN: No rashes CENTRAL NERVOUS SYSTEM: Alert and oriented -3. No focal deficits, tone is normal in all 4 extremities. PSYCHIATRIC: Alert and oriented -3. Appropriate affect. Intact judgment and insight. - Labs CBC & Chem 7: 05/17/19 09:59 05/15/19 11:12 Labs: Abnormal Lab Results - Last 24 Hours (Table) 05/16/19 05/16/19 05/16/19 Range/Units 12:12 17:25 20:22 RBC (3.80-5.40) m/uL Hgb (11.4-16.0) gm/dL Hct (34.0-46.0) % MCV (80.0-100.0) fL MCH (25.0-35.0) pg RDW (11.5-15.5) % Plt Count (150-450) k/uL Lymphocytes # (1.0-4.8) k/uL Macrocytosis POC Glucose (mg/dL) 124 H 272 H 182 H (75-99) mg/dL 05/17/19 05/17/19 Range/Units 06:53 09:59 RBC 2.52 L (3.80-5.40) m/uL Hgb 9.4 L D (11.4-16.0) gm/dL Hct 29.7 L (34.0-46.0) % MCV 118.0 H (80.0-100.0) fL MCH 37.2 H (25.0-35.0) pg RDW 18.1 H (11.5-15.5) % Plt Count 89 L (150-450) k/uL Lymphocytes # 0.3 L (1.0-4.8) k/uL Macrocytosis Marked A POC Glucose (mg/dL) 367 H (75-99) mg/dL Microbiology - Last 24 Hours (Table) 05/14/19 12:29 Blood Culture - Preliminary Blood No Growth after 48 hours Assessment and Plan Plan: Assessment: #1. Acute exacerbation of chronic obstructive pulmonary disease, chest x-ray showed chronic changes, without evidence of acute pulmonary process #2. History of severe bullous emphysema, the patient has a large bulla occupying a large portion of the right lung field and it is not of chronic left upper lobe cavitation lesion. This has previously been seen on CT scans and chest x-rays, and appears to be stable in appearance. Patient has been referred for lung transplantation surgery at [facility] #3. Chronic hypoxemic respiratory failure related to advanced COPD/emphysema, with baseline FEV1 value of 36% of predicted, stage III COPD, oxygen and prednisone dependent #4. History of bilateral pneumothoraces requiring placement of bilateral chest tubes. #5. History of brief cardiac arrest following spontaneous pneumothoraces, requiring intubation and placement on mechanical ventilation, recovered #6. Past episodes of pneumonia requiring intubation and mechanical ventilation, tracheostomy placement of PEG tube placement and patient had since been weaned off and decannulated #7. Chronic left upper lobe inflammatory opacity #8. Hypertension #9. Hyperlipidemia #10. Crohn's disease with history of bowel resection and creation of ileostomy #11. Hypothyroidism #12. Chronic anemia #13. Fibromyalgia #14. Anxiety/depression Plan: Continue current antibiotic coverage, we'll decrease the Solu-Medrol down to 40 mg every 8 hours, continue nebulized bronchodilators, patient is improving, less dyspneic, increase activity as tolerated, from pulmonary perspective patient could be considered for discharge home. Will need follow-up appointment in the office in 7-10 days I performed a history & physical examination of the patient and discussed their management with my nurse practitioner, Carmella Jimenez. I reviewed the nurse practitioner's note and agree with the documented findings and plan of care. Lung sounds are positive for diminished breath sounds and expiratory wheezes The findings and the impression was discussed with the patient. I attest to the documentation by the nurse practitioner. Time with Patient: Less than 30
[2019-05-17 10:50] LABS: ALT 228 U/L (9-52); AST 154 U/L (14-36); African American GFR (CKD) >90 (>60 ml/min/1.73 sqM); Albumin 3.6 g/dL (3.5-5.0); Alkaline Phosphatase 211 U/L (38-126); Anion Gap 8 mmol/L; Blood Urea Nitrogen 24 mg/dL (7-17); Calcium 8.5 mg/dL (8.4-10.2); Carbon Dioxide 37 mmol/L (22-30); Chloride 97 mmol/L (98-107); Glucose 120 mg/dL (74-99); Potassium 3.8 mmol/L (3.5-5.1); Sodium 142 mmol/L (137-145); Total Bilirubin 0.7 mg/dL (0.2-1.3); Total Protein 6.1 g/dL (6.3-8.2)
[2019-05-17 12:31] LABS: Glucose,Whole Blood 287 mg/dL (75-99)
--- NOTE | 2019-05-17 14:23 | P.PN ---
Subjective Progress Note Date: 05/17/19 This is a 58-year-old female patient of Dr. James and Dr. Mistry with history of advanced COPD with extensive bullous changes with FEV1 of 19- 21%, chronic hypoxic respiratory failure on home O2, history of Crohn's colitis with ostomy on Humira, multiple bowel obstructions and multiple bowel surgeries, hyperlipidemia, hypothyroidism, anemia, fibromyalgia, generalized anxiety disorder and recurrent depression. Patient is currently on transplant list at [facility] where she was initially evaluated for embolectomy but surgery was canceled. Patient relates that she is to be weaned off her pain medications except for [place] p.m. for 6 months prior to transplant. Patient complains of increasing shortness of breath especially with exertion unable to walk even to the doorway. She states her pulse ox has been dropping at home with minimal activity. The patient is complaining of dysphagia especially with pills. Speech therapy to evaluate. Discussed weaning off [place] and we will c hange her to one half pill every 4 hours or 1 every 6 hours which patient will decide how she would like to take. Patient presented to [facility] emergency center for evaluation was found to be afebrile, initial blood pressure 102/71, heart rate 113, pulse ox 94% on O2. White count is normal, hemoglobin 8.5, platelet count 93, blood sugar 204. Sodium 138, potassium 4.7, chloride 96, CO2 37, BUN 20 creatinine 0.56. Total bilirubin 1.6, AST 96, ALT 169, alkaline phosphatase 111, proBNP 204. Albumin 3.2. Troponin negative. Chest x-ray shows advanced emphysema with previous CT demonstrated soft tissue masses within the lungs. EKG sinus tachycardia. The patient was admitted to the MedSurg floor and started on DuoNeb treatments, Symbicort, IV Solu-Medrol, consult with pulmonary medicine and modified barium swallow ordered. 05/16: The patient states that her breathing is still pretty rough. She had significant shortness of breath getting to the commode chair and also she states her pulse ox drops by 5-10.6. She is feeling tired today. She is doing well with the decreased frequency of the [place]. Blood sugars running between 124 and 284. Solu-Medrol remains at 60 mg IV every 6 hours. 05/17: Patient states that her breathing is much better and she is able to ambulate further with no significant dyspnea. Her pulse ox is 98% on 3 L nasal cannula, heart rate 104, blood pressure 120/72. Lab work reveals white count of 6.8, hemoglobin 9.4, platelet count 89. Creatinine 0.61, blood sugars running between 120 and 367. AST 154, ALT 228, alkaline phosphatase 211. Dr. Meza has change Solu-Medrol to 40 mg every 8 hours and we will plan for prednisone start ed in the morning. Plan for discharge home tomorrow morning. Objective - Vital Signs Vital signs: Vital Signs Temp 98.0 F 05/17/19 13:29 Pulse 95 05/17/19 13:29 Resp 18 05/17/19 13:29 BP 120/72 05/17/19 13:29 Pulse Ox 98 05/17/19 13:29 Intake & Output 05/16/19 05/17/19 05/17/19 18:59 06:59 18:59 Intake Total 600 240 Balance 600 240 Intake: Oral 600 240 Other: Voiding Method Bedside Commode Bedside Commode Bedside Commode # Voids 2 2 2 # Bowel Movements 1 - Exam Review of Systems Constitutional: Reports fatigue, Denies anorexia, Denies chills, Denies fever, Denies lethargy, Denies malaise, Denies poor appetite, Denies weakness, Denies weight loss Eyes: denies blurred vision, denies pain Ears, nose, mouth and throat: Reports dysphagia, Denies dental pain, Denies headache, Denies mouth pain, Denies nasal congestion, Denies nasal discharge, Denies sore throat Cardiovascular: Reports decreased exercise tolerance, Reports dyspnea on exertion, Reports shortness of breath, Denies chest pain, Denies edema, Denies leg edema, Denies lightheadedness, Denies syncope Respiratory: Reports cough, Reports dyspnea-improved, Reports home oxygen, Reports respiratory infections, Reports wheezing, Denies excessive sputum, Denies hemoptysis Gastrointestinal: Reports diarrhea, Denies abdominal pain, Denies constipation, Denies loss of appetite, Denies nausea, Denies vomiting Genitourinary: Denies dysuria, Denies hematuria, Denies urgency, Denies urinary frequency Musculoskeletal: Reports muscle weakness, Denies frequent falls, Denies gait dysfunction, Denies myalgias Integumentary: Denies pruritus, Denies rash, Denies wounds Neurological: Denies change in mentation, Denies change in speech, Denies numbness, Denies vertigo, Denies weakness Psychiatric: Denies anxiety, Denies depression Endocrine: Denies fatigue, Denies weight change Gen: This is a 58-year-old thin female. She is resting in bed and appears to be comfortable and in no acute distress. HEENT: Head is atraumatic, normocephalic. Pupils equal, round. Sclerae is anicteric. NECK: Supple. No JVD. No lymphadenopathy. No thyromegaly. LUNGS: diminished bilaterally otherwise clear. No intercostal retractions. HEART: Regular rate and rhythm. No murmur. ABDOMEN: Soft. Bowel sounds are present. No masses. No tenderness. EXTREMITIES: No pedal edema. No calf tenderness. NEUROLOGICAL: Patient is awake, alert and oriented x3. Cranial nerves 2 through 12 are grossly intact. - Labs CBC & Chem 7: 05/17/19 09:59 05/17/19 09:59 Labs: Abnormal Lab Results - Last 24 Hours (Table) 05/16/19 05/16/19 05/17/19 Range/Units 17:25 20:22 06:53 RBC (3.80-5.40) m/uL Hgb (11.4-16.0) gm/dL Hct (34.0-46.0) % MCV (80.0-100.0) fL MCH (25.0-35.0) pg RDW (11.5-15.5) % Plt Count (150-450) k/uL Lymphocytes # (1.0-4.8) k/uL Macrocytosis Chloride (98-107) mmol/L Carbon Dioxide (22-30) mmol/L BUN (7-17) mg/dL Glucose (74-99) mg/dL POC Glucose (mg/dL) 272 H 182 H 367 H (75-99) mg/dL AST (14-36) U/L ALT (9-52) U/L Alkaline Phosphatase (38-126) U/L Total Protein (6.3-8.2) g/dL 05/17/19 05/17/19 05/17/19 Range/Units 09:59 09:59 12:25 RBC 2.52 L (3.80-5.40) m/uL Hgb 9.4 L D (11.4-16.0) gm/dL Hct 29.7 L (34.0-46.0) % MCV 118.0 H (80.0-100.0) fL MCH 37.2 H (25.0-35.0) pg RDW 18.1 H (11.5-15.5) % Plt Count 89 L (150-450) k/uL Lymphocytes # 0.3 L (1.0-4.8) k/uL Macrocytosis Marked A Chloride 97 L (98-107) mmol/L Carbon Dioxide 37 H (22-30) mmol/L BUN 24 H (7-17) mg/dL Glucose 120 H (74-99) mg/dL POC Glucose (mg/dL) 287 H (75-99) mg/dL AST 154 H (14-36) U/L ALT 228 H (9-52) U/L Alkaline Phosphatase 211 H (38-126) U/L Total Protein 6.1 L (6.3-8.2) g/dL Microbiology - Last 24 Hours (Table) 05/14/19 12:29 Blood Culture - Preliminary Blood No Growth after 48 hours Assessment and Plan Plan: 1. Acute exacerbation of COPD. Pulmonary medicine consult appreciated. Continue DuoNeb treatments, Symbicort, Solu-Medrol, Augmentin. Solu-Medrol changed to 40 mg IV every 8 hours. 2. Advanced COPD with multiple ruptured bulla and spontaneous pneumothorax in the past, stable. Patient is working with with [facility] transplant team. 3. Chronic hypoxemic and hypercapneic respiratory failure requiring mechanical ventilation in the past and Trach which has since removed. Patient follows with Dr. Mistry on a regular basis. Patient has home O2 at 3 L nasal cannula. 4. History of Crohn's colitis status post subtotal colectomy and ostomy. Patient is to continue Humira, mercaptopurine, Levsin. currently stable. 5. Moderate protein calorie malnutrition. Continue with protein supplement. 6. H/O critical illness myopathy post IVIG infusion. 7. Generalized anxiety disorder. Continue BuSpar to 10 mg orally twice every day and Cymbalta 30 mg daily. 8. Fibromyalgia with bilateral neuropathy. Continue with Gabapentin 300 mg orally tid. 9. Sinus tachycardia. Continue Metoprolol 50 mg orally tid. 10. Vitamin D deficiency. 11. B12 deficiency. Continue with B12 1000 mcg sc q month. 12. Glaucoma. Continue Xalatan. 13. Hypomagnesemia. Continue with magnesium oxide. 14. Chronic pain on [place] 10 mg every 4 hours. Patient states she needs to be weaned off this for 6 months prior to transplant. [place] 10 mg every 6 hours as needed. 15. DVT prophylaxis. continue Lovenox 40 mg subcutaneously every day. 16. GI prophylaxis. Continue Carafate. 17. Elevated liver function tests. Recheck in the morning. Acute hepatitis panel and liver ultrasound. CODE STATUS: Full code. Discharge plan: Return home on Monday Impression and plan of care have been directed as dictated by the signing handy roca. Gaby Rothman nurse practitioner acting as scribe for signing physician.
[2019-05-17] MEDS ORDERED: methylPREDNISolone SOD SUCCI 40 MG/ML 1 ML VIAL IV SCH (16:00)
[2019-05-17 17:35] LABS: Glucose,Whole Blood 206 mg/dL (75-99)
[2019-05-17] MEDS: MIRTAZAPINE 15 MG TAB PO SCH (19:16)
[2019-05-17 19:36] LABS: Hepatitis A Antibody IgM Non-Reactive (Non-Reactive); Hepatitis B Core IgM Non-Reactive (Non-Reactive)
[2019-05-17 21:14] LABS: Glucose,Whole Blood 262 mg/dL (75-99)
[2019-05-17] MEDS: MELATONIN 5 MG TABLET PO PRN (22:06)
[2019-05-17] MEDS: busPIRone HCl 10 MG TAB PO PRN (22:06)
[2019-05-17 22:27] VITALS: RESP 16
[2019-05-17] MEDS: LATANOPROST 0.005% OPHTH DROPS 2.5 ML BTL BOTH EYES SCH (22:33)
[2019-05-18] MEDS: HYDROcodone/APAP 10-325MG 1 EACH TAB PO PRN ×3 (00:19→12:57)
[2019-05-18] MEDS: OPIUM TINCTURE PO PRN ×3 (00:21→13:37)
[2019-05-18] MEDS: HEPARIN SODIUM,PORCINE 5,000 UNIT/ML 1 ML VIAL SQ SCH ×2 (00:21→08:36)
[2019-05-18] MEDS: IPRATROPIUM-ALBUTEROL 3 ML NEB INHALATION SCH ×2 (07:13→10:54)
[2019-05-18] MEDS: SYMBICORT 160-4.5 MCG INHALER INHALATION SCH (07:13)
[2019-05-18 07:14] LABS: Glucose,Whole Blood 218 mg/dL (75-99)
[2019-05-18] MEDS: DIPHENOX-ATROP 2.5-0.025 MG 1 EACH TAB PO SCH (08:34)
[2019-05-18] MEDS: LIDOCAINE 5% PATCH TOPICAL SCH (08:34)
[2019-05-18] MEDS: INSULIN ASPART (NovoLOG) 100 UNIT/ML VIAL SQ SCH ×2 (08:35→12:17)
[2019-05-18] MEDS: CALCIUM CARBONATE 500 MG CHEWABLE PO SCH (08:36)
[2019-05-18] MEDS: PANTOPRAZOLE 40 MG TABLET PO SCH (08:36)
[2019-05-18] MEDS: DULoxetine HCL 30 MG CAPSULE.DR PO SCH (08:36)
[2019-05-18] MEDS: METOPROLOL TARTRATE 50 MG TAB PO SCH (08:36)
[2019-05-18] MEDS: AMOXIC-POT CLAV 875-125MG 1 EACH TAB PO SCH (08:36)
[2019-05-18] MEDS: MAGNESIUM OXIDE 400 MG TAB PO SCH (08:37)
[2019-05-18] MEDS: MERCAPTOPURINE 50 MG TAB PO SCH (08:37)
[2019-05-18] MEDS: GABAPENTIN 300 MG CAP PO SCH (08:39)
--- NOTE | 2019-05-18 08:48 | US ---
EXAMINATION TYPE: US abdomen limited DATE OF EXAM: 05/18/2019 COMPARISON: NONE CLINICAL HISTORY: Elevated liver function tests. EXAM MEASUREMENTS: Liver Length: 13.7 cm Gallbladder Wall: Surgically absent CBD: 0.3 cm Right Kidney: 10.5 x 3.8 x 4.4 cm Pancreas: head somewhat obscured by overlying bowel gas, otherwise wnl Liver: wnl Gallbladder: Surgically absent Evidence for sonographic Stout's sign: no CBD: wnl Right Kidney: wnl Limited views of the pancreas are unremarkable. The liver is normal in size without evidence of biliary dilatation. The gallbladder is been removed. Distal common hepatic duct measures 3 mm. Limited views of the right kidney are unremarkable. IMPRESSION: STATUS POST CHOLECYSTECTOMY.
[2019-05-18 09:00] LABS: Anisocytosis Slight; HCT 25.8 % (34.0-46.0); HGB 8.2 gm/dL (11.4-16.0); Hypochromasia Marked; MCH 37.5 pg (25.0-35.0); MCHC 31.9 g/dL (31.0-37.0); MCV 117.6 fL (80.0-100.0); Macrocytosis Marked; Mean Platelet Volume 10.5; Poikilocytosis Slight; RDW 17.6 % (11.5-15.5); WBC 2.6 k/uL (3.8-10.6)
[2019-05-18] MEDS ORDERED: predniSONE 20 MG TAB PO SCH (09:00)
[2019-05-18 09:05] LABS: Platelet Count 48 k/uL (150-450)
[2019-05-18 09:16] LABS: ALT 177 U/L (9-52); AST 70 U/L (14-36); African American GFR (CKD) >90 (>60 ml/min/1.73 sqM); Albumin 2.8 g/dL (3.5-5.0); Alkaline Phosphatase 143 U/L (38-126); Anion Gap 2 mmol/L; Blood Urea Nitrogen 27 mg/dL (7-17); Calcium 8.1 mg/dL (8.4-10.2); Carbon Dioxide 38 mmol/L (22-30); Chloride 98 mmol/L (98-107); Glucose 186 mg/dL (74-99); Potassium 3.8 mmol/L (3.5-5.1); Sodium 138 mmol/L (137-145); Total Bilirubin 0.6 mg/dL (0.2-1.3); Total Protein 4.9 g/dL (6.3-8.2)
[2019-05-18 12:01] LABS: Glucose,Whole Blood 131 mg/dL (75-99)
--- NOTE | 2019-05-18 12:06 | P.PN ---
Subjective Progress Note Date: 05/18/19 Principal diagnosis: Acute exacerbation of chronic obstructive pulmonary disease This is a 58-year-old female with past medical history of severe bullous emphysema with chronic hypoxemic respiratory failure, hypertension, hyperlipidemia, previous episodes of pneumonia requiring intubation and placement on mechanical ventilator, GERD/reflux, Crohn's disease, multiple bowel surgeries including total colectomy/ileostomy, former smoker, anxiety, depression. Patient follows with Dr. Mistry in the pulmonary clinic. She has underlying FEV1 value of 36% of predicted and a chronic left upper lobe inflammatory capacity that was nonmalignant. Patient has had previous episodes of prolonged respiratory failure requiring mechanical ventilation and placement of tracheostomy and a PEG tube with subsequent liberation from mechanical ventilation and decannulation. Patient had previously been referred to the [facility] for possible lung reduction surgery bullectemy however the thoracic surgeon felt that patient needs lung transplantation instead. Patient was seen at [facility] for the lung transplants, and was told that she needs to be off all narcotics for a few months. Patient is regularly on [place] for chronic pain syndrome. On 05/14/2019 patient presented to the emergency department, with complaints of a weeklong history of worsening shortness of breath on exertion, patient states she was highly able to walk to the bathroom related to shortness of breath, she would desaturate rapidly even on her home dose oxygen, and he would take a while for her to recover. Been complaining of a substantial cough with no phlegm production. She denied any fever or chills, denied any chest discomfort, denies any palpitations, no nausea vomiting or diarrhea. Chest x-ray showed advanced emphysema with previously noted upper lobe soft tissue masses, old right-sided rib fractures, no evident pneumothorax. Patient is afebrile, hemodynamically stable, pulse ox on 3 L of oxygen is 94%. Lung sounds are diminished, with end expiratory wheezes, patient has coughing spells without phlegm production. Lab work was reviewed, and admission lab work showed white blood cell, 4.6, hemoglobin of 8.5, platelet count of 93, sodium of 138, potassium is 4.7, chl oride is 96, CO2 37, B1 is 20 creatinine is 0.56. AST was 96, ALT was 169, alkaline phosphatase was 111, troponin was negative 1, proBNP was 204. Patient was started on IV steroids, nebulized bronchodilators. On 05/16/2019 patient seen in follow-up on medical surgical floor. She is resting in bed, still has some chest congestion, lots of coughing, and her cough is nonproductive, complaining of some burning in the chest with episodes of coughing, but overall in no acute distress. Remains on 3 L of oxygen with a pulse ox of 100%, she is afebrile, hemodynamically patient is stable, no new labs today, no new chest x-rays. On 05/17/2018 patient seen in follow-up on medical surgical floor. She is resting comfortably in bed, in no acute distress, she states she is breathing easier, still has some coughing, and she states her stomach cultures with coughing, as no acute events overnight. Sounds are diminished with a few scattered rhonchi. She is on 3 L of oxygen, sats at 98%, no fever or chills, he states she is feeling less dyspneic, was get up and take a shower today. Today's labs have been reviewed, showing white blood cell count of 6.8, hemoglobin of 9.4. Her culture showed no growth. Continue current medical treatment. From pulmonary perspective she could be considered for discharge home either today or next 24 hours The patient is seen today 05/18/2019 in follow-up on the regular medical floor. She is awake and alert in no acute distress. She continues to improve daily. Nearly back to her baseline. She is anxious to go home. Blood cultures reveal no growth. White count 2.6. Hemoglobin 8.2. Platelet count 48,000. Creatinine 0.52. AST 70. ALT 177. Objective - Vital Signs Vital signs: Vital Signs Temp 97.8 F 05/18/19 05:50 Pulse 93 05/18/19 11:04 Resp 16 05/18/19 05:50 BP 131/81 05/18/19 05:50 Pulse Ox 98 05/18/19 05:50 Intake & Output 05/17/19 05/18/19 05/18/19 18:59 06:59 18:59 Intake Total 240 Balance 240 Intake: Oral 240 Other: Voiding Method Bedside Commode Bedside Commode # Voids 2 3 - Exam GENERAL EXAM: Alert, 58-year-old chronically ill looking female, on 4 L of oxy gen comfortable in no apparent distress. HEAD: Normocephalic/atraumatic. EYES: Normal reaction of pupils, equal size. Conjunctiva pink, sclera white. NOSE: Clear with pink turbinates. THROAT: No erythema or exudates. NECK: No masses, no JVD, no thyroid enlargement, no adenopathy. CHEST: No chest wall deformity. Symmetrical expansion. LUNGS: Equal air entry with diminished air entry bilaterally, with end expiratory wheezes CVS: Regular rate and rhythm, normal S1 and S2, no gallops, no murmurs, no rubs ABDOMEN: Soft, nontender. No hepatosplenomegaly, normal bowel sounds, no guarding or rigidity. EXTREMITIES: No clubbing, no edema, no cyanosis, 2+ pulses and upper and lower extremities. MUSCULOSKELETAL: Muscle strength and tone normal. SPINE: No scoliosis or deformity SKIN: No rashes CENTRAL NERVOUS SYSTEM: No focal deficits, tone is normal in all 4 extremities. PSYCHIATRIC: Alert and oriented -3. Appropriate affect. Intact judgment and insight. - Labs CBC & Chem 7: 05/18/19 07:52 05/18/19 07:52 Labs: Abnormal Lab Results - Last 24 Hours (Table) 05/17/19 05/17/19 05/17/19 Range/Units 12:25 17:23 21:13 WBC (3.8-10.6) k/uL RBC (3.80-5.40) m/uL Hgb (11.4-16.0) gm/dL Hct (34.0-46.0) % MCV (80.0-100.0) fL MCH (25.0-35.0) pg RDW (11.5-15.5) % Plt Count (150-450) k/uL Macrocytosis Carbon Dioxide (22-30) mmol/L BUN (7-17) mg/dL Glucose (74-99) mg/dL POC Glucose (mg/dL) 287 H 206 H 262 H (75-99) mg/dL Calcium (8.4-10.2) mg/dL AST (14-36) U/L ALT (9-52) U/L Alkaline Phosphatase (38-126) U/L Total Protein (6.3-8.2) g/dL Albumin (3.5-5.0) g/dL 07/20/19 07/20/19 07/20/19 Range/Units 07:10 07:52 07:52 WBC 2.6 L (3.8-10.6) k/uL RBC 2.20 L (3.80-5.40) m/uL Hgb 8.2 L (11.4-16.0) gm/dL Hct 25.8 L (34.0-46.0) % MCV 117.6 H (80.0-100.0) fL MCH 37.5 H (25.0-35.0) pg RDW 17.6 H (11.5-15.5) % Plt Count 48 L (150-450) k/uL Macrocytosis Marked A Carbon Dioxide 38 H (22-30) mmol/L BUN 27 H (7-17) mg/dL Glucose 186 H (74-99) mg/dL POC Glucose (mg/dL) 218 H (75-99) mg/dL Calcium 8.1 L (8.4-10.2) mg/dL AST 70 H (14-36) U/L ALT 177 H (9-52) U/L Alkaline Phosphatase 143 H (38-126) U/L Total Protein 4.9 L (6.3-8.2) g/dL Albumin 2.8 L (3.5-5.0) g/dL Microbiology - Last 24 Hours (Table) 05/14/19 12:29 Blood Culture - Preliminary Blood No Growth after 72 hours Assessment and Plan Assessment: Assessment: #1. Acute exacerbation of chronic obstructive pulmonary disease, chest x-ray showed chronic changes, without evidence of acute pulmonary process #2. History of severe bullous emphysema, the patient has a large bulla occupying a large portion of the right lung field and it is not of chronic left upper lobe cavitation lesion. This has previously been seen on CT scans and chest x-rays, and appears to be stable in appearance. Patient has been referred for lung transplantation surgery at [facility] #3. Chronic hypoxemic respiratory failure related to advanced COPD/emphysema, with baseline FEV1 value of 36% of predicted, stage III COPD, oxygen and prednisone dependent #4. History of bilateral pneumothoraces requiring placement of bilateral chest tubes. #5. History of brief cardiac arrest following spontaneous pneumothoraces, requiring intubation and placement on mechanical ventilation, recovered #6. Past episodes of pneumonia requiring intubation and mechanical ventilation, tracheostomy placement of PEG tube placement and patient had since been weaned off and decannulated #7. Chronic left upper lobe inflammatory opacity #8. Hypertension #9. Hyperlipidemia #10. Crohn's disease with history of bowel resection and creation of ileostomy #11. Hypothyroidism #12. Chronic anemia #13. Fibromyalgia #14. Anxiety/depression Plan: The patient was seen and evaluated by Dr. Meza. She is stable from the pulmonary standpoint and could be discharged home. Complete a prednisone burst and taper. Continue her home pulmonary medications. Follow-up in our office in 1-2 weeks' time. She is encouraged to call sooner with any recurrence of symptoms or other questions or concerns. I, the cosigning physician, performed a history & physical examination of the patient. Lungs sounds diminished. Maintaining good O2 saturations in the 90s on 4 L/m per nasal cannula. I discussed the assessment and plan of care with my nurse practitioner, Trinity Kay. I attest to the above note as dictated by her.
--- NOTE | 2019-05-18 13:52 | P.DS ---
Providers Date of admission: 05/14/19 15:59 Expected date of discharge: 05/18/19 Attending physician: Tacho Siddiqui Consults: 05/14/19 20:46 Consult Physician Routine Consulting Provider: Michael Meza Consult Reason/Comments: COPD Excarbation Do you want consulting provider notified?: Yes Primary care physician: Heber [facility] Course: This is a 58-year-old female patient of Dr. James and Dr. Mistry with history of advanced COPD with extensive bullous changes with FEV1 of 19- 21%, chronic hypoxic respiratory failure on home O2, history of Crohn's colitis with ostomy on Humira, multiple bowel obstructions and multiple bowel surgeries, hyperlipidemia, hypothyroidism, anemia, fibromyalgia, generalized anxiety disorder and recurrent depression. Patient is currently on transplant list at [facility] where she was initially evaluated for embolectomy but surgery was canceled. Patient relates that she is to be weaned off her pain medications except for oh p.m. for 6 months prior to transplant. Patient complains of increasing shortness of breath especially with exertion unable to walk even to the doorway. She states her pulse ox has been dropping at home with minimal activity. The patient is complaining of dysphagia especially with pills. Speech therapy to evaluate. Discussed weaning off [place] and we will change her to one half pill every 4 hours or 1 every 6 hours which patient will decide how she would like to take. Patient presented to [facility] emergency center for evaluation was found to be afebrile, initial blood pressure 102/71, heart rate 113, pulse ox 94% on O2. White count is normal, hemoglobin 8.5, platelet count 93, blood sugar 204. Sodium 138, potassium 4.7, chloride 96, CO2 37, BUN 20 creatinine 0.56. Total bilirubin 1.6, AST 96, ALT 169, alkaline phosphatase 111, proBNP 204. Albumin 3.2. Troponin negative. Chest x-ray shows advanced emphysema with previous CT demonstrated soft tissue masses within the lungs. EKG sinus tachycardia. The patient was admitted to the MedSurg floor and started on DuoNeb treatments, Symbicort, IV Solu-Medrol, consult with pulmonary medicine and modified barium swallow ordered. 05/16: The patient states that her breathing is still pretty rough. She had significant shortness of breath getting to the commode chair and also she states her pulse ox drops by 5-10.6. She is feeling tired today. She is doing well with the decreased frequency of the [place]. Blood sugars running between 124 and 284. Solu-Medrol remains at 60 mg IV every 6 hours. 05/17: Patient states that her breathing is much better and she is able to ambulate further with no significant dyspnea. Her pulse ox is 98% on 3 L nasal cannula, heart rate 104, blood pressure 120/72. Lab work reveals white count of 6.8, hemoglobin 9.4, platelet count 89. Creatinine 0.61, blood sugars running between 120 and 367. AST 154, ALT 228, alkaline phosphatase 211. Dr. Meza has change Solu-Medrol to 40 mg every 8 hours and we will plan for prednisone started in the morning. Plan for discharge home tomorrow morning. 05/18:liver ultrasound and acute hepatitis panel are negative.repeat lab work reveals total bilirubin of 0.6, AST 70, ALT 177, alkaline phosphatase 143. Noted white count is 2.6, hemoglobin 8.2, platelet count is 48. Patient has had no signs of bleeding. No blood in her stools from ileostomy. Patient has been cleared for discharge by pulmonary medicine. Patient is very talkative today and able to speak and multiple sentences without shortness of breath. Patient will be discharged home today in stable condition. repeat CBC and CMP to be done on Monday or Monday of this week with results to Dr. James. Discharge diagnoses: 1. Acute exacerbation of COPD. 2. Advanced COPD with multiple ruptured bulla and spontaneous pneumothorax in the past, stable. Patient is working with with [facility] transplant team. 3. Chronic hypoxemic and hypercapneic respiratory failure requiring mechanical ventilation in the past and Trach which has since removed. 4. History of Crohn's colitis status post subtotal colectomy and ostomy. 5. Moderate protein calorie malnutrition. 6. H/O critical illness myopathy post IVIG infusion. 7. Generalized anxiety disorder. 8. Fibromyalgia with bilateral neuropathy. 9. Sinus tachycardia. 10. Vitamin D deficiency. 11. B12 deficiency. 12. Glaucoma. 13. Hypomagnesemia. 14. Chronic pain 15. Elevated liver function testsand thrombocytopenia. Discharge plan: home Impression and plan of care have been directed as dictated by the signing physician. Gaby Rothman nurse practitioner acting as scribe for signing physician. Patient Condition at Discharge: Good Plan - Discharge Summary New Discharge Prescriptions: New Amoxic-Pot Clav 875-125Mg [Augmentin 875-125] 1 each PO Q12HR #10 tab predniSONE 0 mg PO DIRECTED #30 tab Continue Latanoprost Ophth [Xalatan 0.005%] 1 drop BOTH EYES HS Dicyclomine [Bentyl] 10 mg PO TID PRN PRN Reason: Gi Upset Budesonide 1 mg INHALATION RT-BID PRN PRN Reason: Shortness Of Breath Gabapentin [Neurontin] 300 mg PO TID Opium Tincture 10mg/1ml 20 mg PO QID PRN PRN Reason: Diarrhea HYDROcodone/APAP 10-325MG [[place] 10-325] 1 tab PO Q4H PRN PRN Reason: Pain Metoprolol Tartrate [Lopressor] 50 mg PO TID #90 tab Albuterol Nebulized [Ventolin Nebulized] 2.5 mg INHALATION RT-QID PRN #120 nebu PRN Reason: Shortness Of Breath Guaifen/Phenyleph/Acetaminophn [Mucinex Sinus-Max Severe Liq] 10 ml PO Q6H PRN PRN Reason: Cough Aclidinium Ludell [Tudorza Pressair] 1 puff INHALATION RT-BID Mercaptopurine [Purinethol] 50 mg PO BID busPIRone HCl [Buspar] 10 mg PO BID PRN PRN Reason: Anxiety Fluticasone/Vilanterol [Breo Ellipta 200-25 Mcg INH] 1 puff INHALATION RT-MELISSA LY ALPRAZolam [Xanax] 0.25 mg PO DAILY PRN PRN Reason: Anxiety Adalimumab [Humira(Cf) Pen] 40 mg SQ Q7D DULoxetine HCL [Cymbalta] 30 mg PO DAILY Hyoscyamine Sulfate [Levsin] 0.125 mg PO Q4H PRN #90 tab PRN Reason: Abdominal Distention Ondansetron HCl [Zofran] 4 mg PO BID PRN PRN Reason: Nausea Nystatin 100,000 Unit/ml Susp [Mycostatin Oral Susp] 5 ml PO QID PRN PRN Reason: THRUSH Albuterol Sulfate [Proair Hfa] 2 puff INHALATION RT-Q6H PRN PRN Reason: Shortness Of Breath Pantoprazole [Protonix] 40 mg PO QAM Mupirocin 2% Oint [Bactroban 2% Oint] 1 applic TOPICAL DAILY PRN PRN Reason: Rash Mirtazapine [Remeron] 7.5 mg PO HS@1900 Melatonin 10 mg PO HS PRN PRN Reason: Insomnia Magnesium Oxide [Adan] 500 mg PO DAILY Diphenox-Atrop 2.5-0.025 mg [Lomotil] 1 tab PO TID Calcium Gummies 500mg 500 mg PO BID Lidocaine 5% Patch [Lidoderm 5% Patch] 1 patch TOPICAL DAILY Sucralfate [Carafate] 1 gm PO TID PRN PRN Reason: Gi Upset Discharge Medication List Latanoprost Ophth [Xalatan 0.005%] 1 drop BOTH EYES HS 05/21/17 [History] Dicyclomine [Bentyl] 10 mg PO TID PRN 07/24/18 [History] Budesonide 1 mg INHALATION RT-BID PRN 09/27/18 [History] Gabapentin [Neurontin] 300 mg PO TID 09/27/18 [History] HYDROcodone/APAP 10-325MG [[place] 10-325] 1 tab PO Q4H PRN 09/27/18 [History] Opium Tincture 10mg/1ml 20 mg PO QID PRN 09/27/18 [History] Albuterol Nebulized [Ventolin Nebulized] 2.5 mg INHALATION RT-QID PRN #120 nebu 11/10/18 [Rx] Metoprolol Tartrate [Lopressor] 50 mg PO TID #90 tab 11/10/18 [Rx] Aclidinium Ludell [Tudorza Pressair] 1 puff INHALATION RT-BID 11/29/18 [History] Fluticasone/Vilanterol [Breo Ellipta 200-25 Mcg INH] 1 puff INHALATION RT-DAILY 11/29/18 [History] Guaifen/Phenyleph/Acetaminophn [Mucinex Sinus-Max Severe Liq] 10 ml PO Q6H PRN 11/29/18 [History] Mercaptopurine [Purinethol] 50 mg PO BID 11/29/18 [History] busPIRone HCl [Buspar] 10 mg PO BID PRN 11/29/18 [History] ALPRAZolam [Xanax] 0.25 mg PO DAILY PRN 12/28/18 [History] Adalimumab [Humira(Cf) Pen] 40 mg SQ Q7D 12/28/18 [History] DULoxetine HCL [Cymbalta] 30 mg PO DAILY 12/28/18 [History] Hyoscyamine Sulfate [Levsin] 0.125 mg PO Q4H PRN #90 tab 02/05/19 [Rx] Albuterol Sulfate [Proair Hfa] 2 puff INHALATION RT-Q6H PRN 03/26/19 [History] Calcium Gummies 500mg 500 mg PO BID 03/26/19 [History] Diphenox-Atrop 2.5-0.025 mg [Lomotil] 1 tab PO TID 03/26/19 [History] Magnesium Oxide [Adan] 500 mg PO DAILY 03/26/19 [History] Melatonin 10 mg PO HS PRN 03/26/19 [History] Mirtazapine [Remeron] 7.5 mg PO HS@1900 03/26/19 [History] Mupirocin 2% Oint [Bactroban 2% Oint] 1 applic TOPICAL DAILY PRN 03/26/19 [History] Nystatin 100,000 Unit/ml Susp [Mycostatin Oral Susp] 5 ml PO QID PRN 03/26/19 [History] Ondansetron HCl [Zofran] 4 mg PO BID PRN 03/26/19 [History] Pantoprazole [Protonix] 40 mg PO QAM 03/26/19 [History] Lidocaine 5% Patch [Lidoderm 5% Patch] 1 patch TOPICAL DAILY 04/16/19 [History] Sucralfate [Carafate] 1 gm PO TID PRN 04/16/19 [History] Amoxic-Pot Clav 875-125Mg [Augmentin 875-125] 1 each PO Q12HR #10 tab 05/18/19 [Rx] predniSONE 0 mg PO DIRECTED #30 tab 05/18/19 [Rx] Follow up Appointment(s)/Referral(s): Heber James MD [Primary Care Provider] - 1 Week Jazmine Mistry MD [STAFF PHYSICIAN] - 1 Week Ambulatory/Diagnostic Orders: Complete Blood Count w/diff [LAB.AMB] Location: None Selected Comprehensive Metabolic Panel [LAB.AMB] Location: None Selected Discharge Disposition: HOME SELF-CARE
[2019-05-18 14:50] VITALS: BP 136/84; PULSE 82; TEMP 97.6
== END 2019-05-18 14:55 | disposition home or self-care (01) | DRG 191 ==
LOC: EC 12:17 → 4MS4W 15:59
PROVIDERS: ADMIT Internal Medicine Geriatric Medicine; ATTEND Internal Medicine Geriatric Medicine
DX: J43.9 Emphysema, unspecified (principal); K50.10 Crohn's disease of large intestine without complications; E44.0 Moderate protein-calorie malnutrition; J96.11 Chronic respiratory failure with hypoxia; J96.12 Chronic respiratory failure with hypercapnia; D61.818 Other pancytopenia; F33.9 Major depressive disorder, recurrent, unspecified; Z76.82 Awaiting organ transplant status; R13.10 Dysphagia, unspecified; G62.9 Polyneuropathy, unspecified; E83.42 Hypomagnesemia; D63.8 Anemia in other chronic diseases classified elsewhere; I10 Essential (primary) hypertension; E03.9 Hypothyroidism, unspecified; M79.7 Fibromyalgia; K21.9 Gastro-esophageal reflux disease without esophagitis; E78.5 Hyperlipidemia, unspecified; E53.8 Deficiency of other specified B group vitamins; E55.9 Vitamin D deficiency, unspecified; K44.9 Diaphragmatic hernia without obstruction or gangrene; F41.1 Generalized anxiety disorder; G89.4 Chronic pain syndrome; M81.0 Age-related osteoporosis without current pathological fracture; H40.9 Unspecified glaucoma; M19.90 Unspecified osteoarthritis, unspecified site; R00.0 Tachycardia, unspecified; R26.2 Difficulty in walking, not elsewhere classified; Z99.81 Dependence on supplemental oxygen; Z79.51 Long term (current) use of inhaled steroids; Z79.899 Other long term (current) drug therapy; Z87.01 Personal history of pneumonia (recurrent); Z90.49 Acquired absence of other specified parts of digestive tract; Z90.710 Acquired absence of both cervix and uterus; Z87.19 Personal history of other diseases of the digestive system; Z98.890 Other specified postprocedural states; Z87.891 Personal history of nicotine dependence; Z87.440 Personal history of urinary (tract) infections; Z86.74 Personal history of sudden cardiac arrest; Z88.5 Allergy status to narcotic agent; Z88.2 Allergy status to sulfonamides; Z88.8 Allergy status to other drugs, medicaments and biological substances; Z91.041 Radiographic dye allergy status; Z91.048 Other nonmedicinal substance allergy status; Z80.8 Family history of malignant neoplasm of other organs or systems; Z82.5 Family history of asthma and other chronic lower respiratory diseases; Z82.3 Family history of stroke; Z81.8 Family history of other mental and behavioral disorders; Z83.3 Family history of diabetes mellitus; Z82.49 Family history of ischemic heart disease and other diseases of the circulatory system; Z82.61 Family history of arthritis
CPT/HCPCS: 36415; 71046; 74230; 76705; 80053; 80074; 83735; 83880; 84484; 85025; 85027; 85610; 85730; 87040; 93005; 94640; 94644; 94760; 96361; 96374; 96375; 99291

== ENCOUNTER 2019-06-06 03:29 | Inpatient (IN) | payer BC ==
[2019-06-06] MEDS ORDERED: AZITHROMYCIN 500 MG in SODIUM CHLORIDE 0.9% 250 ML IVPB STA (03:30)
[2019-06-06] MEDS ORDERED: ALBUTEROL NEBULIZED 2.5 MG/3 ML INHALATION STA (03:30)
[2019-06-06] MEDS ORDERED: IPRATROPIUM 0.5 MG/2.5 ML NEBU INHALATION STA (03:30)
[2019-06-06] MEDS ORDERED: SODIUM CHLORIDE 0.9% 500 ML 500 ML IV STA (03:30)
[2019-06-06] MEDS ORDERED: DEXAMETHASONE SOD PHOSPHATE 10 MG/ML 1 ML VIAL IV STA (03:31)
[2019-06-06 03:54] LABS: Anisocytosis Slight; Basophils % (A) 0 %; Eosinophils # (A) 0.1 k/uL (0-0.7); Eosinophils % (A) 3 %; HGB 8.5 gm/dL (11.4-16.0); Hypochromasia Moderate; Lymphocytes % (A) 39 %; MCH 36.4 pg (25.0-35.0); MCHC 31.4 g/dL (31.0-37.0); MCV 115.8 fL (80.0-100.0); Macrocytosis Marked; Mean Platelet Volume 9.9; Monocytes # (A) 0.1 k/uL (0-1.0); Monocytes % (A) 3 %; Neutrophils # (A) 1.4 k/uL (1.3-7.7); Neutrophils % (A) 53 %; Poikilocytosis Slight; RBC 2.33 m/uL (3.80-5.40); RDW 17.9 % (11.5-15.5); WBC 2.6 k/uL (3.8-10.6)
--- NOTE | 2019-06-06 03:55 | ED ---
General Adult HPI - General Chief complaint: Shortness of Breath Stated complaint: Diff Breathing Time Seen by Provider: 06/06/19 03:30 Source: patient, EMS Mode of arrival: EMS Limitations: no limitations - History of Present Illness Initial comments: Dictation was produced using [employer] dictation software. please excuse any grammatical, word or spelling errors. Chief Complaint: 59-year-old female past medical history of COPD on chronic oxygen presents with dyspnea times one day. History of Present Illness: Patient is 59-year-old female she presents today with chief complaint of dyspnea. Patient states her dyspnea worsened today. Patient is reliant on home oxygen. She normally wears 4 L. She states that her symptoms really got worse today. She has history of intubation multiple times. Her child day care provider Dr. Mistry. Denies any fever, chest pains. No lightheadedness. Patient is brought in by EMS EMS provided her with a DuoNeb. With improvement of symptoms. She is not given steroids. The ROS documented in this emergency department record has been reviewed and confirmed by me. Those systems with pertinent positive or negative responses have been documented in the HPI. All other systems are other negative and/or noncontributory. PHYSICAL EXAM: General Impression: Alert and oriented x3, mildly dyspneic HEENT: Normocephalic atraumatic, extra-ocular movements intact, pupils equal and reactive to light bilaterally, mucous membranes moist. Cardiovascular: Heart regular rate and rhythm, S1&S2 audible, no murmurs, rubs or gallops Chest: Bilateral lung wheezing Abdomen: Bowel sounds present, abdomen soft, non-tender, non-distended, no organomegaly Musculoskeletal: Pulses present and equal in all extremities, no peripheral edema Motor: no focal deficits noted Neurological: CN II-XII grossly intact, no focal motor or sensory deficits noted Skin: Intact with no visualized rashes Psych: Normal affect and mood ED course: 59-year-old female presents with COPD exacerbation. Patient tachycardic on arrival with a heart rate of 140, she is respiratory rate of 22, rest of vital signs within acceptable limits. Patient 95% on 4 L nasal cannula. Wheezing is appreciated on auscultation of the lungs. Patient however does appear better after the DuoNeb. She is in mild respiratory distress. She is able speak in full sentences. She is well-appearing. Patient given Decadron.Laboratory evaluation obtained. She has multiple abnormalities with her CBC however appears to be patient's baseline. Furthermore patient's metabolic panel appears to be baseline as well. Patient x-ray shows hyperinflated lungs. Rate appears to be unchanged compared to previous x-ray from last month. Patient appears comfortable this time. Given patient's clinical history we will admit patient to observation with pulmonology consult. She will also receive medical monitoring and [id number] breathing treatments. EKG interpretation: Ventricular rate 137, sinus tachycardia,. Interval 114, crit 64, QTC 416. No MT prolongation, no QTC prolongation, no ST or T-wave changes noted. EKG compared to [default value] showing no changes. Overall, this EKG is unremarkable - Related Data Home Medications Medication Instructions Recorded Confirmed Latanoprost Ophth [Xalatan 0.005%] 1 drop BOTH EYES HS 05/21/17 06/06/19 Dicyclomine [Bentyl] 10 mg PO TID PRN 07/24/18 06/06/19 Budesonide 1 mg INHALATION RT-BID PRN 09/27/18 06/06/19 Gabapentin [Neurontin] 300 mg PO TID 09/27/18 06/06/19 HYDROcodone/APAP 10-325MG [Ackerly 1 tab PO Q4H PRN 09/27/18 06/06/19 10-325] Opium Tincture 10mg/1ml 20 mg PO QID PRN 09/27/18 06/06/19 Aclidinium Solon [Tudorza 1 puff INHALATION RT-BID 11/29/18 06/06/19 Pressair] Fluticasone/Vilanterol [Breo 1 puff INHALATION RT-DAILY 11/29/18 06/06/19 Ellipta 200-25 Mcg INH] Guaifen/Phenyleph/Acetaminophn 10 ml PO Q6H PRN 11/29/18 06/06/19 [Mucinex Sinus-Max Severe Liq] Mercaptopurine [Purinethol] 50 mg PO BID 11/29/18 06/06/19 busPIRone HCl [Buspar] 10 mg PO BID PRN 11/29/18 06/06/19 ALPRAZolam [Xanax] 0.25 mg PO DAILY PRN 12/28/18 06/06/19 Adalimumab [Humira(Cf) Pen] 40 mg SQ Q7D 12/28/18 06/06/19 DULoxetine HCL [Cymbalta] 30 mg PO DAILY 12/28/18 06/06/19 Albuterol Sulfate [Proair Hfa] 2 puff INHALATION RT-Q6H PRN 03/26/19 06/06/19 Calcium Gummies 500mg 500 mg PO BID 03/26/19 06/06/19 Diphenox-Atrop 2.5-0.025 mg 1 tab PO TID 03/26/19 06/06/19 [Lomotil] Magnesium Oxide [Adan] 500 mg PO DAILY 03/26/19 06/06/19 Melatonin 10 mg PO HS PRN 03/26/19 06/06/19 Mirtazapine [Remeron] 7.5 mg PO HS@1900 03/26/19 06/06/19 Mupirocin 2% Oint [Bactroban 2% 1 applic TOPICAL DAILY PRN 03/26/19 06/06/19 Oint] Nystatin 100,000 Unit/ml Susp 5 ml PO QID PRN 03/26/19 06/06/19 [Mycostatin Oral Susp] Ondansetron HCl [Zofran] 4 mg PO BID PRN 03/26/19 06/06/19 Pantoprazole [Protonix] 40 mg PO QAM 03/26/19 06/06/19 Lidocaine 5% Patch [Lidoderm 5% 1 patch TOPICAL DAILY 04/16/19 06/06/19 Patch] Sucralfate [Carafate] 1 gm PO TID PRN 04/16/19 06/06/19 Previous Rx's Medication Instructions Recorded Albuterol Nebulized [Ventolin 2.5 mg INHALATION RT-QID PRN #120 11/10/18 Nebulized] nebu Metoprolol Tartrate [Lopressor] 50 mg PO TID #90 tab 11/10/18 Hyoscyamine Sulfate [Levsin] 0.125 mg PO Q4H PRN #90 tab 02/05/19 Amoxic-Pot Clav 875-125Mg 1 each PO Q12HR #10 tab 05/18/19 [Augmentin 875-125] Allergies Allergy/AdvReac Type Severity Reaction Status Date / Time Iodinated Contrast- Oral and Allergy Anaphylaxis Verified 05/14/19 12:41 IV Dye pregabalin [From Lyrica] Allergy Unknown Verified 05/14/19 12:41 rofecoxib [From Vioxx] Allergy Unknown Verified 05/14/19 12:41 Sulfa (Sulfonamide Allergy Rash/Hives Verified 05/14/19 12:41 Antibiotics) aspirin AdvReac Internal Verified 05/14/19 12:41 Bleeding timolol [Timolol] AdvReac Nausea & Verified 05/14/19 12:41 Vomiting Review of Systems ROS Statement: Those systems with pertinent positive or pertinent negative responses have been documented in the HPI. ROS Other: All systems not noted in ROS Statement are negative. Past Medical History Past Medical History: COPD, Eye Disorder, Fibromyalgia, GERD/Reflux, GI Bleed, Osteoarthritis (OA), Pneumonia, Syncope, Thyroid Disorder Additional Past Medical History / Comment(s): Pt states she recently had an appt on [facility] on 04/04/19 and she is going to be going on a lung transplant list after she completes her paperwork/prior requirments, crohn's colitis, ulcerative colitis, bowel obstructions, multiple bowel surgeries including total colectomy/ileostomy, severe COPD, chronic respiratory failure, home O2 3L/NC, bollous emphysema/ruptured bollous, R lung bleb R pneumothorax x3, L pneumothorax x1 and had bilateral pneumothorax 09/2018-acute respiratory failure/vented/cardiac arrest, tachycardia, myopathy, IVIG infusions, hiatal hernia, lower GI bleeds, arthritis in multiple joints, osteoporosis, chronic pain, seasonal allergies, bilateral glaucoma and has had bilateral eye surgery for retinal tears/holes, vitamin D and B12 deficiencies, hypothyroid, moderate protein calorie malnutrition. History of Any Multi-Drug Resistant Organisms: None Reported Past Surgical History: Breast Surgery, Cholecystectomy, Hernia Repair, Hysterectomy, Orthopedic Surgery Additional Past Surgical History / Comment(s): Multiple bowel surgeries including total colectomy/ileostomy, ileostomy moved/repaired, R salpingoophorectomy due to ectopic , total hysterectomy, LEEP procedure, laparoscopy for endometriosis, L breast lumpectomy-benign, r breast core bx-benign, R inguinal hernia repair, EGD/colonoscopies, right thoravent x2, arthroscopic knee surgery on the Left due to ACL and Meniscal tear, trach and peg tube-since removed. bone marrow biopsy and aspirate Past Anesthesia/Blood Transfusion Reactions: No Reported Reaction Additional Past Anesthesia/Blood Transfusion Reaction / Comment(s): Never recieved blood transfusion Past Psychological History: Anxiety, Depression Smoking Status: Former smoker Past Alcohol Use History: None Reported Past Drug Use History: None Reported - Past Family History Mother Family Medical History: Cancer, COPD, Hypertension Additional Family Medical History / Comment(s): Mother at age 83 from COPD and had osteoarthritis and skin cancer. Father Family Medical History: Cancer, CVA/TIA, Dementia, Diabetes Mellitus Additional Family Medical History / Comment(s): Father is 92 yrs old. He has had several TIAs and a CVA Brother(s) Family Medical History: Cancer Additional Family Medical History / Comment(s): Patient had 5 brothers and one of them from melanoma at age 41. Sister(s) History Unknown: Yes Family Medical History: No Reported History Additional Family Medical History / Comment(s): Patient has one sister. Patient has no children General Exam Limitations: no limitations Course Vital Signs 06/06/19 06/06/19 06/06/19 03:35 03:52 04:02 Temperature 99.3 F Pulse Rate 134 H 140 H 138 H Respiratory 20 22 20 Rate Blood Pressure 134/91 O2 Sat by Pulse 95 Oximetry 06/06/19 04:34 Temperature Pulse Rate 101 H Respiratory 22 Rate Blood Pressure 101/69 O2 Sat by Pulse 97 Oximetry Medical Decision Making - Lab Data Result diagrams: 06/06/19 03:40 06/06/19 03:40 Lab Results 06/06/19 06/06/19 Range/Units 03:40 03:40 WBC 2.6 L (3.8-10.6) k/uL RBC 2.33 L (3.80-5.40) m/uL Hgb 8.5 L (11.4-16.0) gm/dL Hct 27.0 L (34.0-46.0) % MCV 115.8 H (80.0-100.0) fL MCH 36.4 H (25.0-35.0) pg MCHC 31.4 (31.0-37.0) g/dL RDW 17.9 H (11.5-15.5) % Plt Count 52 L (150-450) k/uL Neutrophils % 53 % Lymphocytes % 39 % Monocytes % 3 % Eosinophils % 3 % Basophils % 0 % Neutrophils # 1.4 (1.3-7.7) k/uL Lymphocytes # 1.0 (1.0-4.8) k/uL Monocytes # 0.1 (0-1.0) k/uL Eosinophils # 0.1 (0-0.7) k/uL Basophils # 0.0 (0-0.2) k/uL Manual Slide Review Performed Hypochromasia Moderate Poikilocytosis Slight Anisocytosis Slight Anisocytosis (manual) Present Macrocytosis Marked A Sodium 139 (137-145) mmol/L Potassium 4.2 (3.5-5.1) mmol/L Chloride 92 L (98-107) mmol/L Carbon Dioxide 42 H* (22-30) mmol/L Anion Gap 5 mmol/L BUN 14 (7-17) mg/dL Creatinine 0.59 (0.52-1.04) mg/dL Est GFR (CKD-EPI)AfAm >90 (>60 ml/min/1.73 sqM) Est GFR (CKD-EPI)NonAf >90 (>60 ml/min/1.73 sqM) Glucose 156 H (74-99) mg/dL Calcium 9.2 (8.4-10.2) mg/dL Total Bilirubin 0.6 (0.2-1.3) mg/dL AST 67 H (14-36) U/L ALT 123 H (9-52) U/L Alkaline Phosphatase 191 H (38-126) U/L Total Protein 5.4 L (6.3-8.2) g/dL Albumin 3.1 L (3.5-5.0) g/dL Disposition Clinical Impression: COPD exacerbation Disposition: ADMITTED IP TO THIS [facility] Condition: Fair Referrals: Heber James MD [Primary Care Provider] - 1-2 days Decision Time: 04:45
[2019-06-06] MEDS ORDERED: ACETAMINOPHEN TAB 325 MG TAB PO STA (04:07)
[2019-06-06 04:08] LABS: Anisocytosis (M) Present; Platelet Count 52 k/uL (150-450)
[2019-06-06 04:17] LABS: ALT 123 U/L (9-52); AST 67 U/L (14-36); African American GFR (CKD) >90 (>60 ml/min/1.73 sqM); Albumin 3.1 g/dL (3.5-5.0); Alkaline Phosphatase 191 U/L (38-126); Blood Urea Nitrogen 14 mg/dL (7-17); Calcium 9.2 mg/dL (8.4-10.2); Chloride 92 mmol/L (98-107); Glucose 156 mg/dL (74-99); Potassium 4.2 mmol/L (3.5-5.1); Sodium 139 mmol/L (137-145); Total Bilirubin 0.6 mg/dL (0.2-1.3); Total Protein 5.4 g/dL (6.3-8.2)
[2019-06-06 04:23] LABS: Anion Gap 5 mmol/L
[2019-06-06 04:41] LABS: Carbon Dioxide 42 mmol/L (22-30)
--- NOTE | 2019-06-06 05:00 | XR ---
EXAM: XR Chest, 1 View CLINICAL HISTORY: dyspnea TECHNIQUE: Frontal view of the chest. COMPARISON: 02/01/2019. FINDINGS: Lungs: See below. Pleural space: Emphysematous changes of the lungs with massive bullous replacement is again noted. Findings are concerning for a small right apical pneumothorax. Small right pleural effusion is also suggested. Heart: Unremarkable. No cardiomegaly. Mediastinum: Essentially unchanged.. Bones/joints: Unremarkable. IMPRESSION: Emphysematous changes of the lungs with massive bullous replacement is again noted. Findings are concerning for a small right apical pneumothorax. Small right pleural effusion is also suggested. CT of the chest recommended for further evaluation. <MYCVCSECTION> [employer] 06/06/19 05:01 Call Doctor Regarding Pneumothorax, called Aravind. on 06/06 04:59 (-04:00)
[2019-06-06] MEDS ORDERED: IPRATROPIUM-ALBUTEROL 3 ML NEB INHALATION STA (05:39)
--- NOTE | 2019-06-06 05:55 | CT ---
EXAM: CT Chest Without Intravenous Contrast CLINICAL HISTORY: trevor TECHNIQUE: Axial computed tomography images of the chest without intravenous contrast. CTDI is 4.77 mGy and DLP is 208.5 mGy-cm. This CT exam was performed using one or more of the following dose reduction techniques: automated exposure control, adjustment of the mA and/or kV according to patient size, and/or use of iterative reconstruction technique. COMPARISON: 02/01/2019. FINDINGS: Lungs: Severe emphysematous changes are again noted with massive lung bullae, largest of which is seen in the right upper lobe, as noted on prior study. No evidence of pneumothorax within this setting. Known bilateral upper lobe bronchogenic masses, measuring up to 2.3 cm in greatest axial dimension on the right and 3.1 cm in greatest axial dimension on the left, essentially unchanged. Scattered areas of linear atelectasis an/or scarring. Pleural space: See above. Heart: Unremarkable. No cardiomegaly. No significant pericardial effusion. 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 Small amount of frothy debris is seen within the dependent aspect of the trachea, likely representing mucous, although aspirate cannot be definitively excluded. Bones/joints: Partial compression fractures are again seen involving the T6, T9, and L3 vertebral bodies. Compression fracture is again seen involving the T7 vertebral body. No dislocation. Soft tissues: Unremarkable. Vasculature: Main pulmonary artery measures up to 3.2 cm diameter suggesting pulmonary hypertension. No thoracic aortic aneurysm. Lymph nodes: Unremarkable. No enlarged lymph nodes. Gallbladder and bile ducts: Status post cholecystectomy. Kidneys and ureters: A 2 mm nonobstructing stone is seen in the upper pole the left kidney. IMPRESSION: 1. Severe emphysematous changes are again noted with massive lung bullae, largest of which is seen in the right upper lobe, as noted on prior study. No evidence of pneumothorax within this setting. 2. 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 3. Known bilateral upper lobe bronchogenic masses, measuring up to 2.3 cm in greatest axial dimension on the right and 3.1 cm in greatest axial dimension on the left, essentially unchanged. 4. Main pulmonary artery measures up to 3.2 cm diameter suggesting pulmonary hypertension. 5. Small amount of frothy debris within the dependent aspect of the trachea, likely representing mucous, although aspirate cannot be definitively excluded.
[2019-06-06] MEDS: IPRATROPIUM-ALBUTEROL 3 ML NEB INHALATION SCH ×3 (07:34→23:34)
[2019-06-06] MEDS ORDERED: predniSONE 20 MG TAB PO SCH (09:00)
--- NOTE | 2019-06-06 09:12 | CONS ---
CONSULTATION This is a pulmonary/critical care consultation. DATE OF CONSULTATION: 06/06/2019 This is a 59-year-old female who sees Dr. James as a primary and sees my partner Dr. Mistry for her underlying COPD. She has a history of severe/end-stage COPD. She has chronic hypoxemic respiratory failure. She has been evaluated for lung transplantation at [facility]. Is currently not as yet listed. Anyway, the patient presents again to the ER for shortness of breath. The patient has chronic shortness of breath. Apparently she states that she was more short of breath than usual. She states that her saturations dropped with any exertion. Anyway, the patient is here in the OBS unit. She looks about at her baseline. Looking back, this lady has had 6 admissions to the hospital in 2017, 6 admissions to the hospital in 2018, and thus far 7 admissions to the hospital in 2019. In addition, the ER physicians and other doctors continue to order CT scans on this woman. This lady has severe bullous emphysema, especially with a large bullous lesion in the right upper lobe. This is not a pneumothorax and I think this woman has been exposed unnecessarily to radiation. She at various times had doctors insist that this is a pneumothorax, but in fact, it is not. Anyway, the patient is resting comfortably in the room. She is on her normal 4 L. She does not appear to be in any distress. There is no conversational dyspnea. There is no audible wheezing. There is no use of accessory muscles. The patient is pretty much at her baseline in my opinion. She is not particularly coughing or producing any phlegm. She states in addition to being more short of breath than usual, she had a headache. No fever, no chills. No chest pain or chest discomfort. HOME MEDICATIONS: Her home medications included eye drops, Bentyl, Pulmicort updrafts 1 mg twice a day, Neurontin, Crockett, Opium Tincture, Tudorza, Breo, Mucinex, mercaptopurine, BuSpar, Xanax, Humira, Cymbalta, ProAir HFA, Calcium Gummies, Lomotil, Mag-Ox, melatonin, Remeron, Bactroban, nystatin oral solution, Zofran, Protonix, lidocaine patch, Carafate, albuterol updrafts, metoprolol, Levsin, and Augmentin. ALLERGIES: Allergies include IVP DYE, LYRICA, VIOXX, SULFA ANTIBIOTICS, ASPIRIN and TIMOLOL. PAST MEDICAL HISTORY: Her past medical history is rather extensive and includes end-stage COPD with chronic hypoxemic respiratory failure, fibromyalgia, GERD, GI bleed, DJD, pneumonia, syncope, Crohn's colitis/ulcerative colitis, bowel obstruction, multiple bowel surgeries, previous colectomy and ileostomy, prior episodes of topher respiratory failure requiring intubation and mechanical ventilation, bullous emphysema, pneumothorax x3, hiatal hernia, lower GI bleed, osteoporosis, bilateral glaucoma, history of retinal tears, vitamin deficiency, hypothyroidism, and protein calorie malnutrition. SURGICAL HISTORY: Surgical history is quite extensive and includes, but is not limited to, cholecystectomy, hernia repair, hysterectomy, multiple bowel surgeries including previous colectomy and ileostomy, right salpingo-oophorectomy, surgery for endometriosis, left breast lumpectomy, knee surgery tracheostomy and bilateral chest tubes. SOCIAL HISTORY: Social history is positive for previous heavy tobacco use. She does not smoke currently. No alcohol use. No illicit drug use. FAMILY HISTORY: Family history is positive for primarily cancer, COPD and hypertension. Mother at age 83 from COPD and also had skin cancer and DJD. Father from CVA. He also had dementia, diabetes and cancer. She has a brother with cancer and one of her brothers from melanoma at a relatively young age. She has a sister who is relatively healthy. REVIEW OF SYSTEMS: CONSTITUTIONAL: Chronic fatigue from profound shortness of breath. NEUROLOGIC: Headache. HEENT: Negative. CARDIOVASCULAR: Negative. PULMONARY: Shortness of breath, chronic. GI: Negative. : Negative. RHEUMATOLOGIC: Negative. IMMUNOLOGIC: Negative. ENDOCRINOLOGIC: Negative. DERMATOLOGIC: Negative. PHYSICAL EXAMINATION: VITAL SIGNS: Current vital signs are reviewed. Temperature is 99.3, heart rate 100, respiratory rate 16, blood pressure 101/69, mean 79 and saturations are 97% on 4 L. Appears in no acute distress. She has a bit of a doyle face from chronic steroid use. HEENT: Examination is grossly unremarkable. Nasal O2 noted. NECK: Supple. Full range of motion. No adenopathy or thyromegaly. Neck veins are flat. CARDIOVASCULAR: Examination reveals regular rhythm and rate. Heart rate about 100 beats per minute. It is regular. LUNGS: Reveal almost no air movement bilaterally. A few scattered mild rhonchi. No wheezes or crackles. Breath sounds equal, but severely diminished. ABDOMEN: Soft. EXTREMITIES: Are intact. No significant edema. SKIN: Without rash. NEUROLOGIC: Examination is brief but nonfocal. LABS: Labs are reviewed. White count 2.6, hemoglobin 8.5, hematocrit 27.0, platelet count 52,000. Sodium 139, potassium 4.2, chloride 92, CO2 is 42. Anion gap is 5. BUN and creatinine were 14 and 0.59. AST 67, ALT 123, albumin 3.1. A chest x-ray is done. It shows changes of COPD. There is a large hyperlucent area in the right upper lobe. This is a large bullous lesion. No acute infiltrates are noted. CT scan shows a significant upper lobe bullous emphysema, much more prominent on the right lung and with large bullae in the right side. The rest of her lung hunter look relatively clear other than for some chronic changes and emphysematous changes. MEDICATIONS: Medications are reviewed. She is currently on updrafts with albuterol and Atrovent. She is taking prednisone 40 mg a day. ASSESSMENT: 1. Mild chronic obstructive pulmonary disease exacerbation in a patient with severe end-stage chronic obstructive pulmonary disease and severe bullous emphysema. 2. Chronic hypoxemic respiratory failure. 3. Multiple admissions to the hospital, 6 in 2017, 6 in 2018 and 7 so far in 2019 for chronic obstructive pulmonary disease exacerbations. 4. Recent evaluation for lung transplantation at [facility]. The patient has not been listed and would have to have improvement in her nutritional status and would have to be narcotic free prior to any consideration of listing for lung transplantation. 5. Hypothyroidism. 6. Previous episode of acute respiratory failure requiring intubation, mechanical ventilation and bilateral chest tubes. 7. History of fibromyalgia. 8. Previous history of pneumonia. 9. History of syncope. 10.Gastroesophageal reflux disease. 11.Gastrointestinal bleed. 12.Ulcerative colitis. 13.Multiple other medical problems and comorbidities too numerous to list. PLAN: The patient in my opinion could be discharged home. I told the patient that she really needs to try to avoid hospitalizations that she has had 19 so far since 2017. She puts her risk for nosocomial infection. I would discharge her home on her usual medications. She should be given prednisone with a burst and taper beginning with 40 mg or 50 mg and tapering downward. She is to follow up with Dr. James and Dr. Mistry. I do not think she necessarily needs an antibiotic at this time. She should continue her usual medications. Prognosis is guarded. She has been evaluated at [facility] for lung transplantation. Two things seem to be holding her back and that is the excessive use of pain medications and opiates as well as her poor nutritional status and her very low BMI. Additional recommendations and suggestions are forthcoming. Prognosis is guarded at best. MMODL / IJN: [id number] /
[2019-06-06] MEDS ORDERED: busPIRone HCl 10 MG TAB PO PRN (11:13)
[2019-06-06] MEDS ORDERED: DICYCLOMINE 10 MG CAP PO PRN (11:13)
[2019-06-06] MEDS ORDERED: SUCRALFATE 1 GM TAB PO PRN (11:13)
[2019-06-06] MEDS ORDERED: NYSTATIN 100,000 UNIT/ML SUSP 500,000 UNIT/5 ML CUP PO PRN (11:13)
[2019-06-06] MEDS ORDERED: MUPIROCIN 2% OINT 22 GM TUBE TOPICAL PRN (11:13)
[2019-06-06] MEDS ORDERED: HYOSCYAMINE SULFATE 0.125 MG TAB PO PRN (11:13)
[2019-06-06] MEDS ORDERED: HYDROcodone/APAP 10-325MG 1 EACH TAB PO PRN (11:13)
[2019-06-06] MEDS ORDERED: ALBUTEROL NEBULIZED 2.5 MG/3 ML INHALATION PRN (11:13)
[2019-06-06] MEDS ORDERED: ONDANSETRON 4 MG/2 ML VIAL IVP PRN (12:03)
[2019-06-06 13:28] VITALS: BMI 19.2
[2019-06-06] MEDS: METOPROLOL TARTRATE 50 MG TAB PO SCH ×2 (14:10→21:26)
[2019-06-06] MEDS: DIPHENOX-ATROP 2.5-0.025 MG 1 EACH TAB PO SCH ×2 (14:11→21:26)
[2019-06-06] MEDS: GABAPENTIN 300 MG CAP PO SCH ×2 (14:11→21:29)
[2019-06-06] MEDS ORDERED: IPRATROPIUM-ALBUTEROL 3 ML NEB INHALATION PRN (14:18)
--- NOTE | 2019-06-06 14:34 | P.HPIM ---
History of Present Illness H&P Date: 06/06/19 This is a 58-year-old female patient of Dr. James and Dr. 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 Patient is currently on transplant list at [facility] where she was initially evaluated for embolectomy but surgery was canceled. Patient is on the lung transplant list but has to be off [place] for 6 months and is currently weaning off herself off [place] and is on 3 times a day or times a day. Patient was just discharged on 05/18 for similar symptoms and states symptoms started 2 days ago with worsening of shortness of breath on exertion. Patient states that her oxygen drops to the low 70s on exertion. On evaluation patient was extremely nauseated and had to vomiting episodes. She appeared weak and unable to ambulate due to the shortness of breath. She was evaluated by pulmonary earlier during the day at rest and was cleared to go home. Patient is currently significantly short of breath and is not stable to be discharged. Will switch patient's steroids to IV Solu-Medrol. Had a detailed discussion with family about hospice but patient is not ready to let go and still has hope on lung transplant. She denies chest pain, dizziness or palpitations. She does endorse abdominal pain which is chronic. Colostomy has output and is changed 4 times yesterday. Patient denies increased output through the colostomy. On vital evaluation patient's temp is 98 heart rate sinus 120 blood pressure 125/84 with 98% on 4 L. We will start patient on IV steroids and give DuoNeb as needed for shortness of breath azithromycin 500 by mouth daily had admit patient. Review of Systems Constitutional: Denies chills, Denies fever, endorses lethargy endorses weakness, endorses weight loss Eyes: denies decreased vision, denies diplopia, denies discharge, denies pain Ears: deny: decreased hearing Ears, nose, mouth and throat: Denies dental pain, Denies headache, Denies nasal discharge, Denies nose pain Cardiovascular: Denies chest pain, endorses decreased exercise tolerance, Denies edema, Denies high blood pressure, Denies irregular heart beat, Denies palpitations, Denies paroxysmal nocturnal dyspnea, endorses rapid heart beat, endorses shortness of breath Respiratory: Denies congestion, Denies cough, Denies cough with sputum, endorses dyspnea, endorses home endorses oxygen, Denies wheezing Gastrointestinal: Denies abdominal pain, Denies change in bowel habits, Denies coffee ground emesis, Denies early satiety, Denies excessive gas, Denies heartburn, Denies hematemesis, Denies hematochezia, Denies loss of appetite, Denies nausea, Denies vomiting Genitourinary: Denies dysuria, Denies flank pain, Denies kidney stones, Denies menorrhagia, Denies urgency, Denies urinary frequency Musculoskeletal: Denies gait dysfunction, Denies limitation of motion, Denies morning stiffness, Denies muscle cramps Integumentary: Denies rash, Denies wounds, Denies brittle nails, Denies change in hair/nails, Denies darkening of skin Neurological: Denies balance difficulties, Denies change in speech, Denies double vision, Denies gait dysfunction, Denies loss of vision, Denies motor disturbance, Denies numbness, Denies paralysis, Denies paresthesias, Denies seizures Psychiatric: Denies anxiety, Denies depression Endocrine: Denies excessive sweating, Denies excessive thirst, Denies high blood sugars, Denies palpitations Hematologic/Lymphatic: Denies easy bruising, Denies lymphadenopathy Past Medical History Past Medical History: COPD, Eye Disorder, Fibromyalgia, GERD/Reflux, GI Bleed, Osteoarthritis (OA), Pneumonia, Syncope, Thyroid Disorder Additional Past Medical History / Comment(s): Pt states she recently had an appt on [facility] on 04/04/19 and she is going to be going on a lung transplant list after she completes her paperwork/prior requirments, crohn's colitis, ulcerative colitis, bowel obstructions, multiple bowel surgeries including total colectomy/ileostomy, severe COPD, chronic respiratory failure, home O2 3L/NC, b ollous emphysema/ruptured bollous, R lung bleb R pneumothorax x3, L pneumothorax x1 and had bilateral pneumothorax 09/2018-acute respiratory failure/vented/cardiac arrest, tachycardia, myopathy, IVIG infusions, hiatal hernia, lower GI bleeds, arthritis in multiple joints, osteoporosis, chronic pain, seasonal allergies, bilateral glaucoma and has had bilateral eye surgery for retinal tears/holes, vitamin D and B12 deficiencies, hypothyroid, moderate protein calorie malnutrition. History of Any Multi-Drug Resistant Organisms: None Reported Past Surgical History: Breast Surgery, Cholecystectomy, Hernia Repair, Hysterectomy, Orthopedic Surgery Additional Past Surgical History / Comment(s): Multiple bowel surgeries inclu ding total colectomy/ileostomy, ileostomy moved/repaired, R salpingoophorectomy due to ectopic , total hysterectomy, LEEP procedure, laparoscopy for endometriosis, L breast lumpectomy-benign, r breast core bx-benign, R inguinal hernia repair, EGD/colonoscopies, right thoravent x2, arthroscopic knee surgery on the Left due to ACL and Meniscal tear, trach and peg tube-since removed. bone marrow biopsy and aspirate Past Anesthesia/Blood Transfusion Reactions: No Reported Reaction Additional Past Anesthesia/Blood Transfusion Reaction / Comment(s): Never recieved blood transfusion Smoking Status: Former smoker - Past Family History Mother Family Medical History: Cancer, COPD, Hypertension Additional Family Medical History / Comment(s): Mother at age 83 from COPD and had osteoarthritis and skin cancer. Father Family Medical History: Cancer, CVA/TIA, Dementia, Diabetes Mellitus Additional Family Medical History / Comment(s): Father is 92 yrs old. He has had several TIAs and a CVA Brother(s) Family Medical History: Cancer Additional Family Medical History / Comment(s): Patient had 5 brothers and one of them from melanoma at age 41. Sister(s) History Unknown: Yes Family Medical History: No Reported History Additional Family Medical History / Comment(s): Patient has one sister. Patient has no children Medications and Allergies Home Medications Medication Instructions Recorded Confirmed Type Latanoprost Ophth [Xalatan 0.005%] 1 drop BOTH EYES HS 05/21/17 06/06/19 History Dicyclomine [Bentyl] 10 mg PO TID PRN 07/24/18 06/06/19 History Budesonide 1 mg INHALATION RT-BID PRN 09/27/18 06/06/19 History Gabapentin [Neurontin] 300 mg PO TID 09/27/18 06/06/19 History HYDROcodone/APAP 10-325MG [[place] 1 tab PO Q4H PRN 09/27/18 06/06/19 History 10-325] Opium Tincture 10mg/1ml 20 mg PO QID PRN 09/27/18 06/06/19 History Albuterol Nebulized [Ventolin 2.5 mg INHALATION RT-QID PRN #120 11/10/18 06/06/19 Rx Nebulized] nebu Metoprolol Tartrate [Lopressor] 50 mg PO TID #90 tab 11/10/18 06/06/19 Rx Aclidinium [place] [[place]udorza 1 puff INHALATION RT-BID 11/29/18 06/06/19 History Pressair] Fluticasone/Vilanterol [Breo 1 puff INHALATION RT-DAILY 11/29/18 06/06/19 History Ellipta 200-25 Mcg INH] Guaifen/Phenyleph/Acetaminophn 10 ml PO Q6H PRN 11/29/18 06/06/19 History [Mucinex Sinus-Max Severe Liq] Mercaptopurine [Purinethol] 50 mg PO BID 11/29/18 06/06/19 History busPIRone HCl [Buspar] 10 mg PO BID PRN 11/29/18 06/06/19 History ALPRAZolam [Xanax] 0.25 mg PO DAILY PRN 12/28/18 06/06/19 History Adalimumab [Humira(Cf) Pen] 40 mg SQ Q7D 12/28/18 06/06/19 History DULoxetine HCL [Cymbalta] 30 mg PO DAILY 12/28/18 06/06/19 History Hyoscyamine Sulfate [Levsin] 0.125 mg PO Q4H PRN #90 tab 02/05/19 06/06/19 Rx Albuterol Sulfate [Proair Hfa] 2 puff INHALATION RT-Q6H PRN 03/26/19 06/06/19 History Calcium Gummies 500mg 500 mg PO BID 03/26/19 06/06/19 History Diphenox-Atrop 2.5-0.025 mg 1 tab PO TID 03/26/19 06/06/19 History [Lomotil] Magnesium Oxide [Adan] 500 mg PO DAILY 03/26/19 06/06/19 History Melatonin 10 mg PO HS PRN 03/26/19 06/06/19 History Mirtazapine [Remeron] 7.5 mg PO HS@1900 03/26/19 06/06/19 History Mupirocin 2% Oint [Bactroban 2% 1 applic TOPICAL DAILY PRN 03/26/19 06/06/19 Hi story Oint] Nystatin 100,000 Unit/ml Susp 5 ml PO QID PRN 03/26/19 06/06/19 History [Mycostatin Oral Susp] Ondansetron HCl [Zofran] 4 mg PO BID PRN 03/26/19 06/06/19 History Pantoprazole [Protonix] 40 mg PO QAM 03/26/19 06/06/19 History Lidocaine 5% Patch [Lidoderm 5% 1 patch TOPICAL DAILY 04/16/19 06/06/19 History Patch] Sucralfate [Carafate] 1 gm PO TID PRN 04/16/19 06/06/19 History Cholecalciferol (Vitamin D3) 2,000 unit PO DAILY 06/06/19 06/06/19 History [Vitamin D3] Cyanocobalamin [Vitamin B-12 1,000 mcg SQ Q30D 06/06/19 06/06/19 History Injection] Multivitamins, Thera [Multivitamin 1 tab PO DAILY 06/06/19 06/06/19 History (formulary)] Allergies Allergy/AdvReac Type Severity Reaction Status Date / Time Iodinated Contrast- Oral and Allergy Anaphylaxis Verified 06/06/19 08:13 IV Dye pregabalin [From Lyrica] Allergy Unknown Verified 06/06/19 08:13 rofecoxib [From Vioxx] Allergy Unknown Verified 06/06/19 08:13 Sulfa (Sulfonamide Allergy Rash/Hives Verified 06/06/19 08:13 Antibiotics) aspirin AdvReac Internal Verified 06/06/19 08:13 Bleeding timolol [Timolol] AdvReac Nausea & Verified 06/06/19 08:13 Vomiting Physical Exam Vitals: Vital Signs Temp Pulse Pulse Resp BP BP BP 06/06/19 12:00 98.1 F 124 H 19 125/84 06/06/19 11:08 111 H 06/06/19 10:58 109 H 06/06/19 08:00 98.7 F 123 H 19 105/73 06/06/19 07:46 118 H 06/06/19 07:36 122 H 06/06/19 05:55 116 H 16 06/06/19 05:48 117 H 18 06/06/19 05:37 122 H 24 97/66 06/06/19 04:34 101 H 22 101/69 06/06/19 04:02 138 H 20 06/06/19 03:52 140 H 22 06/06/19 03:35 99.3 F 134 H 20 134/91 Pulse Ox 06/06/19 12:00 98 06/06/19 11:08 06/06/19 10:58 06/06/19 08:00 95 06/06/19 07:46 06/06/19 07:36 98 06/06/19 05:55 06/06/19 05:48 06/06/19 05:37 97 06/06/19 04:34 97 06/06/19 04:02 06/06/19 03:52 06/06/19 03:35 95 Intake and Output 06/05/19 06/06/19 06/06/19 22:59 06:59 14:59 Other: Voiding Method Diaper Diaper Incontinent Incontinent # Voids 1 Weight 47.627 kg 47.627 kg - Constitutional General appearance: cooperative, tired and distressed - EENT Eyes: anicteric sclerae, PERRLA, normal appearance ENT: hearing grossly normal - Neck Neck: no lymphadenopathy, normal ROM, no other, no rigidity, no stridor, no thyromegaly - Respiratory Respiratory: bilateral decreased air entry with mild wheezing bronchial sounds heard diffusely - Cardiovascular Rhythm: regular Heart sounds: normal: S1, S2 Abnormal Heart Sounds: no systolic murmur, no diastolic murmur, no rub, no S3 Gallop, no S4 Gallop, no click, no other - Gastrointestinal General gastrointestinal: normal bowel sounds, soft distended diffusely with ileostomy in the right lower quadrant - Integumentary Integumentary: no rash - Neurologic Neurologic: CNII-XII intact - Musculoskeletal Musculoskeletal:, strength equal bilaterally - Psychiatric Psychiatric: A&O x's 3, appropriate affect Results CBC & Chem 7: 06/06/19 03:40 06/06/19 03:40 Labs: Abnormal Lab Results - Last 24 Hours (Table) 06/06/19 06/06/19 Range/Units 03:40 03:40 WBC 2.6 L (3.8-10.6) k/uL RBC 2.33 L (3.80-5.40) m/uL Hgb 8.5 L (11.4-16.0) gm/dL Hct 27.0 L (34.0-46.0) % MCV 115.8 H (80.0-100.0) fL MCH 36.4 H (25.0-35.0) pg RDW 17.9 H (11.5-15.5) % Plt Count 52 L (150-450) k/uL Macrocytosis Marked A Chloride 92 L (98-107) mmol/L Carbon Dioxide 42 H* (22-30) mmol/L Glucose 156 H (74-99) mg/dL AST 67 H (14-36) U/L ALT 123 H (9-52) U/L Alkaline Phosphatase 191 H (38-126) U/L Total Protein 5.4 L (6.3-8.2) g/dL Albumin 3.1 L (3.5-5.0) g/dL Thrombosis Risk Factor Assmnt - DVT/VTE Prophylaxis DVT/VTE Prophylaxis: Pharmacologic Prophylaxis ordered - Choose All That Apply Any of the Below Risk Factors Present?: Yes Each Factor Represents 1 point: Abnormal pulmonary function (COPD), Age 41-60 years, Hx of IBD, Serious lung disease incl. pneumonia (< 1month) Other Risk Factors: No Other congenital or acquired thrombophilia - If yes, enter type in comment: No Thrombosis Risk Factor Assessment Total Risk Factor Score: 4 Thrombosis Risk Factor Assessment Level: Moderate Risk Assessment and Plan Plan: 1. Acute exacerbation of her underlying advanced end-stage COPD. patient is a candidate for lung transplant but has to be off narcotics which she is unable to. Pulmonary medicine consult appreciated. Initiated on DuoNeb treatments, Symbicort, Solu-Medrol, azithromycin CT suggests a severe emphysema with massive lung bullae seen in the right upper lobe tracheal bronchomalacia. Patient is at high risk of nosocomial infections bilateral currently is on stable to be discharged home will switch patient to IV steroids and continue the care unless patient is stable to be discharged she is a poor prognosis and needs evaluation for hospice but patient is currently declining 2. Advanced end-stage COPD with large bulla on the right upper lobe multiple ruptured bulla and spontaneous pneumothorax in the past, stable. Patient is working with with [facility] transplant team. 3. Chronic hypoxemic and hypercapneic respiratory failure requiring mechanical ventilation in the past and Trach which has since removed. Patient follows with Dr. Mistry on a regular basis. Patient has home O2 at 4 L nasal cannula. 4. History of Crohn's colitis status post subtotal colectomy and ostomy. Patient is to continue Humira, mercaptopurine, Levsin. currently stable. 5. Moderate protein calorie malnutrition. Continue with protein supplement. 6. H/O critical illness myopathy post IVIG infusion. 7. Generalized anxiety disorder. Continue BuSpar to 10 mg orally twice every day and Cymbalta 30 mg daily. 8. Fibromyalgia with bilateral neuropathy. Continue with Gabapentin 300 mg orally tid. 9. Sinus tachycardia. Continue Metoprolol 50 mg orally tid. 10. Vitamin D deficiency. 11. B12 deficiency. Continue with B12 1000 mcg sc q month. 12. Glaucoma. Continue Xalatan. 13. Hypomagnesemia. Continue with magnesium oxide. 14. Chronic pain on [place] 10 mg every 8 hours. Patient states she needs to be weaned off this for 6 months prior to transplant. [place] 10 mg every 6 hours as needed. 15. DVT prophylaxis. continue Lovenox 40 mg subcutaneously every day. 16. GI prophylaxis. Continue Carafate. 17. Elevated liver function tests. Recheck in the morning. Acute hepatitis panel and liver ultrasound were negative repeat CMP tomorrow CODE STATUS: Full code. Discussion on patient's CODE STATUS but patient currently wants to be full code and understands that she has poor prognosis difficulty recovering while she gets intubated but she still would like to be reintubated regardless. Discharge plan: Patient may need 1 or 2 inpatient nights when the Cipro to be discharged in 2 days
[2019-06-06] MEDS: FAMOTIDINE 20 MG/2 ML VIAL IV SCH ×2 (14:58→21:25)
[2019-06-06] MEDS: methylPREDNISolone SOD SUCCI 125 MG/2 ML VIAL IV SCH ×3 (14:59→23:01)
[2019-06-06] MEDS ORDERED: NON-FORMULARY DRUG (Aclidinium Bromide [Tudorza Pressair] 1 PUFF) INHALATION SCH (20:00)
[2019-06-06] MEDS ORDERED: BUDESONIDE 1 MG/2 ML NEBU INHALATION SCH (20:00)
[2019-06-06] MEDS: OPIUM TINCTURE PO PRN (21:25)
[2019-06-06] MEDS: CALCIUM CARBONATE 500 MG CHEWABLE PO SCH (21:26)
[2019-06-06] MEDS: MIRTAZAPINE 15 MG TAB PO SCH (21:26)
[2019-06-06] MEDS: LATANOPROST 0.005% OPHTH DROPS 2.5 ML BTL BOTH EYES SCH (21:27)
[2019-06-06] MEDS: MERCAPTOPURINE 50 MG TAB PO SCH (21:27)
[2019-06-06] MEDS: MELATONIN 5 MG TABLET PO PRN (21:33)
[2019-06-06] MEDS: ALPRAZolam 0.25 MG TAB PO PRN (21:33)
[2019-06-06] MEDS: SYMBICORT 160-4.5 MCG INHALER INHALATION SCH (23:35)
[2019-06-07] MEDS: SODIUM CHLORIDE 0.9% 1,000 ML IV SCH ×3 (02:11→17:48)
[2019-06-07] MEDS: HYDROcodone/APAP 10-325MG 1 EACH TAB PO PRN ×3 (05:11→18:40)
[2019-06-07] MEDS: methylPREDNISolone SOD SUCCI 125 MG/2 ML VIAL IV SCH ×3 (05:11→17:46)
[2019-06-07] MEDS ORDERED: AZITHROMYCIN 500 MG in SODIUM CHLORIDE 0.9% 250 ML IVPB SCH (06:00)
[2019-06-07 07:23] LABS: Glucose,Whole Blood 196 mg/dL (75-99)
[2019-06-07] MEDS: SYMBICORT 160-4.5 MCG INHALER INHALATION SCH ×2 (08:32→20:17)
[2019-06-07] MEDS: IPRATROPIUM-ALBUTEROL 3 ML NEB INHALATION SCH ×4 (08:32→20:17)
[2019-06-07] MEDS ORDERED: PANTOPRAZOLE 40 MG TABLET PO SCH (09:00)
[2019-06-07] MEDS ORDERED: predniSONE 20 MG TAB PO SCH (09:00)
[2019-06-07] MEDS: MULTIVITAMINS, THERA 1 EACH TAB PO SCH (09:37)
[2019-06-07] MEDS: DULoxetine HCL 30 MG CAPSULE.DR PO SCH (09:37)
[2019-06-07] MEDS: CALCIUM CARBONATE 500 MG CHEWABLE PO SCH ×2 (09:37→22:01)
[2019-06-07] MEDS: GABAPENTIN 300 MG CAP PO SCH ×3 (09:37→22:03)
[2019-06-07] MEDS: METOPROLOL TARTRATE 50 MG TAB PO SCH ×3 (09:37→22:03)
[2019-06-07] MEDS: DIPHENOX-ATROP 2.5-0.025 MG 1 EACH TAB PO SCH ×3 (09:37→22:03)
[2019-06-07] MEDS: MAGNESIUM OXIDE 400 MG TAB PO SCH (09:37)
[2019-06-07] MEDS: FAMOTIDINE 20 MG/2 ML VIAL IV SCH (09:38)
[2019-06-07] MEDS: LIDOCAINE 5% PATCH TOPICAL SCH (09:38)
[2019-06-07] MEDS: MERCAPTOPURINE 50 MG TAB PO SCH ×2 (09:55→22:03)
[2019-06-07] MEDS: OPIUM TINCTURE PO PRN ×2 (11:06→20:11)
[2019-06-07 11:15] LABS: Glucose,Whole Blood 280 mg/dL (75-99)
[2019-06-07 12:15] LABS: ALT 74 U/L (9-52); AST 29 U/L (14-36); African American GFR (CKD) >90 (>60 ml/min/1.73 sqM); Albumin 2.6 g/dL (3.5-5.0); Alkaline Phosphatase 123 U/L (38-126); Blood Urea Nitrogen 18 mg/dL (7-17); Calcium 8.3 mg/dL (8.4-10.2); Chloride 97 mmol/L (98-107); Glucose 225 mg/dL (74-99); Potassium 4.5 mmol/L (3.5-5.1); Sodium 140 mmol/L (137-145); Total Bilirubin 0.5 mg/dL (0.2-1.3); Total Protein 4.6 g/dL (6.3-8.2)
[2019-06-07 12:21] LABS: Anion Gap 4 mmol/L
[2019-06-07 12:24] LABS: Carbon Dioxide 39 mmol/L (22-30)
--- NOTE | 2019-06-07 15:28 | P.PN ---
Subjective Progress Note Date: 06/07/19 This is a 58-year-old female patient of Dr. James and Dr. 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 Patient is currently on transplant list at [facility] where she was initially evaluated for embolectomy but surgery was canceled. Patient is on the lung transplant list but has to be off [place] for 6 months and is currently weaning off herself off [place] and is on 3 times a day or times a day. Patient was just discharged on 05/18 for similar symptoms and states symptoms started 2 days ago with worsening of shortness of breath on exertion. Patient states that her oxygen drops to the low 70s on exertion. On evaluation patient was extremely nauseated and had to vomiting episodes. She appeared weak and unable to ambulate due to the shortness of breath. She was evaluated by pulmonary earlier during the day at rest and was cleared to go home. Patient is currently significantly short of breath and is not stable to be discharged. Will switch patient's steroids to IV Solu-Medrol. Had a detailed discussion with family about hospice but patient is not ready to let go and still has hope on lung transplant. She denies chest pain, dizziness or palpitations. She does endorse abdominal pain which is chronic. Colostomy has output and is changed 4 times yesterday. Patient denies increased output through the colostomy. On vital evaluation patient's temp is 98 heart rate sinus 120 blood pressure 125/84 with 98% on 4 L. We will start patient on IV s teroids and give DuoNeb as needed for shortness of breath azithromycin 500 by mouth daily had admit patient. 06/07 patient's symptoms are better today. Shortness of breath hasn't improved. Patient has not come out of her bed and is concerned about desaturation on movement. We will continue IV steroids today and probably switch to prednisone tomorrow for a taper. Temp is 98.1 respiratory rate 20 blood pressure 1:30/77 respiratory rate 20. CBC unremarkable she has a possible discharge tomorrow Objective - Vital Signs Vital signs: Vital Signs Temp 97.0 F L 08/09/19 11:35 Pulse 108 H 06/07/19 11:48 Resp 18 06/07/19 11:35 BP 131/75 06/07/19 11:35 Pulse Ox 96 06/07/19 11:35 Intake & Output 06/06/19 06/07/19 06/07/19 18:59 06:59 18:59 Intake Total 240 Balance 240 Weight 47.627 kg Intake: Oral 240 Other: Voiding Method Diaper Diaper Diaper Incontinent Incontinent Incontinent # Voids 1 2 1 # Bowel Movements 2 - Exam - Constitutional General appearance: cooperative, no acute distress,appear weak and lethargic - EENT Eyes: anicteric sclerae, PERRLA, normal appearance ENT: hearing grossly normal - Neck Neck: no lymphadenopathy, normal ROM, no other, no rigidity, no stridor, no thyromegaly - Respiratory Respiratory: bilateral: CTA with bronchial breath sounds no wheezing - Cardiovascular Rhythm: regular Heart sounds: normal: S1, S2 Abnormal Heart Sounds: no systolic murmur, no diastolic murmur, no rub, no S3 Gallop, no S4 Gallop, no click, no other - Gastrointestinal General gastrointestinal: normal bowel sounds, soft ileostomy in the right lower quadrant, working well - Integumentary Integumentary: no rash - Neurologic Neurologic: CNII-XII intact - Musculoskeletal Musculoskeletal: gait normal, strength equal bilaterally - Psychiatric Psychiatric: A&O x's 3, appropriate affect - Labs CBC & Chem 7: 06/06/19 03:40 06/07/19 11:45 Labs: Abnormal Lab Results - Last 24 Hours (Table) 06/07/19 06/07/19 06/07/19 Range/Units 07:08 11:13 11:45 Chloride 97 L (98-107) mmol/L Carbon Dioxide 39 H (22-30) mmol/L BUN 18 H (7-17) mg/dL Glucose 225 H (74-99) mg/dL POC Glucose (mg/dL) 196 H 280 H (75-99) mg/dL Calcium 8.3 L (8.4-10.2) mg/dL ALT 74 H (9-52) U/L Total Protein 4.6 L (6.3-8.2) g/dL Albumin 2.6 L (3.5-5.0) g/dL Assessment and Plan Plan: 1. Acute exacerbation of her underlying advanced end-stage COPD. patient is a candidate for lung transplant but has to be off narcotics which she is unable to. Pulmonary medicine consult appreciated. Initiated on DuoNeb treatments, Symbicort, Solu-Medrol, azithromycin CT suggests a severe emphysema with massive lung bullae seen in the right upper lobe tracheal bronchomalacia. Patient is at high risk of nosocomial infections patient is currently not ready to the hospice. We will continue with IV steroids today and hopefully patient can be discharged tomorrow on oral long taper of prednisone 2. Advanced end-stage COPD with large bulla on the right upper lobe multiple ruptured bulla and spontaneous pneumothorax in the past, stable. Patient is working with with [facility] transplant team. 3. Chronic hypoxemic and hypercapneic respiratory failure requiring mechanical ventilation in the past and Trach which has since removed. Patient follows with Dr. Mistry on a regular basis. Patient has home O2 at 4 L nasal cannula. 4. History of Crohn's colitis status post subtotal colectomy and ostomy. Patient is to continue Humira, mercaptopurine, Levsin. currently stable. 5. Moderate protein calorie malnutrition. Continue with protein supplement. 6. H/O critical illness myopathy post IVIG infusion. 7. Generalized anxiety disorder. Continue BuSpar to 10 mg orally twice every day and Cymbalta 30 mg daily. 8. Fibromyalgia with bilateral neuropathy. Continue with Gabapentin 300 mg orally tid. 9. Sinus tachycardia. Continue Metoprolol 50 mg orally tid. 10. Vitamin D deficiency. 11. B12 deficiency. Continue with B12 1000 mcg sc q month. 12. Glaucoma. Continue Xalatan. 13. Hypomagnesemia. Continue with magnesium oxide. 14. Chronic pain on [place] 10 mg every 8 hours. Patient states she needs to be weaned off this for 6 months prior to transplant. [place] 10 mg every 6 hours as needed. 15. DVT prophylaxis. continue Lovenox 40 mg subcutaneously every day. 16. GI prophylaxis. Continue Carafate. 17. Elevated liver function tests. Recheck in the morning. Acute hepatitis panel and liver ultrasound were negative repeat CMP tomorrow CODE STATUS: Full code. Discussion on patient's CODE STATUS but patient current ly wants to be full code and understands that she has poor prognosis difficulty recovering while she gets intubated but she still would like to be reintubated regardless. This discharge plan- likely discharge tomorrow
[2019-06-07 17:32] LABS: Glucose,Whole Blood 246 mg/dL (75-99)
[2019-06-07] MEDS: INSULIN ASPART (NovoLOG) 100 UNIT/ML VIAL SQ SCH ×2 (17:46→22:02)
[2019-06-07] MEDS: MIRTAZAPINE 15 MG TAB PO SCH (20:11)
--- NOTE | 2019-06-07 20:16 | PN ---
PROGRESS NOTE DATE OF SERVICE: June 07, 2019 This is a 59-year-old female with history of severe COPD. She is well known to our service. She has chronic hypoxemic respiratory failure and severe bullous emphysema particularly in the right lung. Anyway, the patient was admitted to the hospital for COPD exacerbation on June 06. In my opinion, she looks pretty much at baseline. Some of the issues that she is having is chronic pain. She looks more short of breath though. Anyway, she was admitted with chronic obstructive pulmonary disease exacerbation. In addition, multiple admissions to the hospital in 2017, 2018, and 2018, recent evaluation for lung transplantation at [facility], hypothyroidism, acute respiratory failure requiring intubation and mechanical ventilation, fibromyalgia, pneumonia, syncope, GERD, gastroesophageal reflux disease, ulcerative colitis, and a multitude of other medical problems. Actually when I saw her yesterday in consultation I thought she could be discharged home. She is currently still in the hospital. Her complaints include shortness of breath which is chronic and not unusual for somebody with her severe degree of lung disease. PHYSICAL EXAMINATION: VITAL SIGNS: Current vital signs are reviewed. Temperature is 97, heart rate 80, respiratory rate 18, blood pressure 131/75, mean 93, saturations are 96% on 2 L. HEENT examination is grossly unremarkable. Mucous membranes are moist. Nasal O2 noted. NECK: Supple. Full range of motion. No adenopathy or thyromegaly. Neck veins are flat. CARDIOVASCULAR examination reveals regular rhythm and rate. S1, S2 normal. No S3, S4, or murmur. LUNGS: Diminished breath sounds throughout. No wheezes, rhonchi, or crackles. There is prolongation on forced maneuver. ABDOMEN: Soft. Bowel sounds are heard. EXTREMITIES are intact. No cyanosis, clubbing, or edema. SKIN: Without rash. NEUROLOGIC examination is brief but nonfocal. LAB DATA: Reviewed. Sodium 140, potassium 4.5, chloride 97, CO2 of 39. BUN and creatinine were 18 and 0.61. The rest of the labs look okay. A chest CT was done. It did not show any evidence of pulmonary embolism. There is no pneumothorax. There are severe emphysematous changes. There is bilateral upper lobe masses. There is significant tracheobronchomalacia. A chest x-ray done on June 06 shows emphysematous changes without anything acute in lung hunter. Medications are reviewed. They were adjusted yesterday. ASSESSMENT: 1. Chronic obstructive pulmonary disease exacerbation with mild, severe end-stage chronic obstructive pulmonary disease. 2. Multiple hospital admissions in 2007 and 2018 and 2019. 3. Chronic hypoxemic respiratory failure. 4. Recent evaluation for lung transplantation at [facility]. 5. Hypothyroidism. 6. Previous episode of acute respiratory failure requiring intubation and mechanical ventilation along with bilateral chest tubes. 7. High fibromyalgia. 8. Pneumonia. 9. Syncope. 10.Gastroesophageal reflux disease. 11.Gastrointestinal bleed. 12.Ulcerative colitis. PLAN: The patient looks well from my perspective and could be discharged home. No additional recommendations are made. It may be pain issue that are keeping her in the Hospital. [facility] said that she would have to be off all pain medications before they would even consider transplantation. I do not know if the patient will be able to get to that point. We will continue to follow. Medications are reviewed. BAUDILIOL / FREDN: [id number] /
[2019-06-07 20:29] LABS: Glucose,Whole Blood 336 mg/dL (75-99)
[2019-06-07] MEDS ORDERED: INSULIN ASPART (NovoLOG) 100 UNIT/ML VIAL SQ ONE (21:20)
[2019-06-07 21:25] VITALS: RESP 22
[2019-06-07] MEDS: LATANOPROST 0.005% OPHTH DROPS 2.5 ML BTL BOTH EYES SCH (22:02)
[2019-06-07] MEDS: FAMOTIDINE 20 MG TAB PO SCH (22:02)
[2019-06-07] MEDS: ALPRAZolam 0.25 MG TAB PO PRN (22:03)
[2019-06-07] MEDS: MELATONIN 5 MG TABLET PO PRN (22:04)
[2019-06-08] MEDS: methylPREDNISolone SOD SUCCI 125 MG/2 ML VIAL IV SCH ×2 (00:33→06:16)
[2019-06-08 01:51] LABS: Glucose,Whole Blood 217 mg/dL (75-99)
[2019-06-08] MEDS: HYDROcodone/APAP 10-325MG 1 EACH TAB PO PRN ×2 (02:04→08:02)
[2019-06-08 04:43] VITALS: BP 123/79; TEMP 97.6
[2019-06-08 07:14] LABS: ALT 72 U/L (9-52); AST 36 U/L (14-36); African American GFR (CKD) >90 (>60 ml/min/1.73 sqM); Albumin 2.6 g/dL (3.5-5.0); Alkaline Phosphatase 136 U/L (38-126); Blood Urea Nitrogen 23 mg/dL (7-17); Calcium 8.3 mg/dL (8.4-10.2); Chloride 98 mmol/L (98-107); Glucose 297 mg/dL (74-99); Potassium 4.7 mmol/L (3.5-5.1); Sodium 141 mmol/L (137-145); Total Bilirubin 0.6 mg/dL (0.2-1.3); Total Protein 4.7 g/dL (6.3-8.2)
[2019-06-08 07:20] LABS: Anion Gap 2 mmol/L
[2019-06-08 07:21] LABS: Glucose,Whole Blood 344 mg/dL (75-99)
[2019-06-08 07:23] LABS: Carbon Dioxide 41 mmol/L (22-30)
[2019-06-08] MEDS: SODIUM CHLORIDE 0.9% 1,000 ML IV SCH (07:40)
[2019-06-08] MEDS: MERCAPTOPURINE 50 MG TAB PO SCH (07:56)
[2019-06-08] MEDS: MAGNESIUM OXIDE 400 MG TAB PO SCH (07:56)
[2019-06-08] MEDS: METOPROLOL TARTRATE 50 MG TAB PO SCH (07:56)
[2019-06-08] MEDS: CALCIUM CARBONATE 500 MG CHEWABLE PO SCH (07:56)
[2019-06-08] MEDS: FAMOTIDINE 20 MG TAB PO SCH (07:57)
[2019-06-08] MEDS: LIDOCAINE 5% PATCH TOPICAL SCH (07:57)
[2019-06-08] MEDS: INSULIN ASPART (NovoLOG) 100 UNIT/ML VIAL SQ SCH (07:57)
[2019-06-08] MEDS: MULTIVITAMINS, THERA 1 EACH TAB PO SCH (07:57)
[2019-06-08] MEDS: GABAPENTIN 300 MG CAP PO SCH (07:57)
[2019-06-08] MEDS: DULoxetine HCL 30 MG CAPSULE.DR PO SCH (07:57)
[2019-06-08] MEDS: IPRATROPIUM-ALBUTEROL 3 ML NEB INHALATION SCH ×2 (08:00→11:42)
[2019-06-08] MEDS: SYMBICORT 160-4.5 MCG INHALER INHALATION SCH (08:00)
[2019-06-08] MEDS: DIPHENOX-ATROP 2.5-0.025 MG 1 EACH TAB PO SCH (08:03)
[2019-06-08] MEDS ORDERED: AZITHROMYCIN 500 MG TAB PO SCH (09:00)
--- NOTE | 2019-06-08 09:51 | P.PN ---
Subjective Progress Note Date: 06/08/19 Principal diagnosis: Acute exacerbation of chronic obstructive pulmonary disease. The patient is seen today 06/08/2019 in follow-up on the regular medical floor. She has currently awake and alert in no acute distress. Her breathing is nearly back to her baseline. No worsening shortness of breath, cough or congestion. She is maintaining good O2 saturations in the 90s on 2 L/m per nasal cannula. Sodium 141. Potassium 4.7. Bicarb 41. Creatinine 0.59. His been maintained on DuoNeb inhalations, Symbicort, IV Solu-Medrol. She is anxious to go home. Objective - Vital Signs Vital signs: Vital Signs Temp 97.6 F 06/08/19 04:42 Pulse 104 H 06/08/19 08:23 Resp 22 06/08/19 04:42 BP 123/79 06/08/19 04:42 Pulse Ox 97 06/08/19 04:42 Intake & Output 06/07/19 06/08/19 06/08/19 18:59 06:59 18:59 Intake Total 240 Balance 240 Intake: Oral 240 Other: Voiding Method Diaper Bedside Commode Incontinent Diaper Incontinent # Voids 1 1 # Bowel Movements 2 1 - Exam GENERAL EXAM: Alert, pleasant 59-year-old female patient, comfortable in no apparent distress. HEAD: Normocephalic. EYES: Normal reaction of pupils, equal size. NOSE: Clear with pink turbinates. THROAT: No erythema or exudates. NECK: No masses, no JVD. CHEST: No chest wall deformity. LUNGS: Equal air entry with intended expiratory wheeze, diminished throughout. CVS: S1 and S2 normal with no audible murmur, regular rhythm. ABDOMEN: No hepatosplenomegaly, normal bowel sounds, no guarding or rigidity. SPINE: No scoliosis or deformity SKIN: No rashes CENTRAL NERVOUS SYSTEM: No focal deficits, tone is normal in all 4 extremities. EXTREMITIES: There is no peripheral edema. No clubbing, no cyanosis. Peripheral pulses are intact. - Labs CBC & Chem 7: 06/06/19 03:40 06/08/19 06:29 Labs: Abnormal Lab Results - Last 24 Hours (Table) 06/07/19 06/07/19 06/07/19 Range/Units 11:13 11:45 17:30 Chloride 97 L (98-107) mmol/L Carbon Dioxide 39 H (22-30) mmol/L BUN 18 H (7-17) mg/dL Glucose 225 H (74-99) mg/dL POC Glucose (mg/dL) 280 H 246 H (75-99) mg/dL Calcium 8.3 L (8.4-10.2) mg/dL ALT 74 H (9-52) U/L Alkaline Phosphatase (38-126) U/L Total Protein 4.6 L (6.3-8.2) g/dL Albumin 2.6 L (3.5-5.0) g/dL 06/07/19 06/08/19 06/08/19 Range/Units 20:27 01:49 06:29 Chloride (98-107) mmol/L Carbon Dioxide 41 H* (22-30) mmol/L BUN 23 H (7-17) mg/dL Glucose 297 H (74-99) mg/dL POC Glucose (mg/dL) 336 H 217 H (75-99) mg/dL Calcium 8.3 L (8.4-10.2) mg/dL ALT 72 H (9-52) U/L Alkaline Phosphatase 136 H (38-126) U/L Total Protein 4.7 L (6.3-8.2) g/dL Albumin 2.6 L (3.5-5.0) g/dL 06/08/19 Range/Units 07:17 Chloride (98-107) mmol/L Carbon Dioxide (22-30) mmol/L BUN (7-17) mg/dL Glucose (74-99) mg/dL POC Glucose (mg/dL) 344 H (75-99) mg/dL Calcium (8.4-10.2) mg/dL ALT (9-52) U/L Alkaline Phosphatase (38-126) U/L Total Protein (6.3-8.2) g/dL Albumin (3.5-5.0) g/dL Assessment and Plan Assessment: Impression: #1 Acute exacerbation of severe end-stage oxygen-dependent chronic obstructive pulmonary disease. #2 Acute on chronic hypoxemic respiratory failure secondary to severe bolus emphysema particularly in the right lung. #3 Recent evaluation for lung transplant at [facility]. #4 Hypothyroidism. #5 Altered of colitis. #6 Chronic pain syndrome. #7 Fibromyalgia. #8 Previous history of acute respiratory failure requiring intubation mechanical ventilation along with bilateral chest tubes. #9 Gastroesophageal bleed reflux disease. #10 History of gastrointestinal bleeding. Plan: The patient was seen and evaluated by Dr. Meza. She is cleared for discharge from the pulmonary standpoint. Complete a prednisone burst and taper. Continue her home pulmonary medications. Follow-up in our office in 1-2 weeks' time. She is encouraged to call sooner with any recurrence of symptoms or other questions or concerns. I, the cosigning physician, performed a history & physical examination of the patient. Lungs sounds with faint end expiratory wheeze, diminished throughout. Maintaining good O2 saturations in the 90s on 2 L/m per nasal. I discussed the assessment and plan of care with my nurse practitioner, Trinity Kay. I attest to the above note as dictated by her.
[2019-06-08 11:28] LABS: Glucose,Whole Blood 191 mg/dL (75-99)
[2019-06-08 11:55] VITALS: PULSE 92
--- NOTE | 2019-06-08 13:03 | P.DS ---
Providers Date of admission: 06/07/19 13:58 Attending physician: Amadeo Sanchez MD Consults: 06/06/19 03:32 Consult Physician Routine Consulting Provider: Jazmine Mistry Consult Reason/Comments: dyspnea Do you want consulting provider notified?: Yes Primary care physician: Heber James [facility] Course: This is a 58-year-old female patient of Dr. James and Dr. 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 Patient is currently on transplant list at [facility] where she was initially evaluated for embolectomy but surgery was canceled. Patient is on the lung transplant list but has to be off [place] for 6 months and is currently weaning off herself off [place] and is on 3 times a day or times a day. Patient was just discharged on 05/18 for similar symptoms and states symptoms started 2 days ago with worsening of shortness of breath on exertion. Patient states that her oxygen drops to the low 70s on exertion. On evaluation patient was extremely nauseated and had to vomiting episodes. She appeared weak and unable to ambulate due to the shortness of binu ath. She was evaluated by pulmonary earlier during the day at rest and was cleared to go home. Patient is currently significantly short of breath and is not stable to be discharged. Will switch patient's steroids to IV Solu-Medrol. Had a detailed discussion with family about hospice but patient is not ready to let go and still has hope on lung transplant. She denies chest pain, dizziness or palpitations. She does endorse abdominal pain which is chronic. Colostomy has output and is changed 4 times yesterday. Patient denies increased output through the colostomy. On vital evaluation patient's temp is 98 heart rate sinus 120 blood pressure 125/84 with 98% on 4 L. We will start patient on IV steroids and give DuoNeb as needed for shortness of breath azithromycin 500 by mouth daily had admit patient. 06/07 patient's symptoms are better today. Shortness of breath hasn't improved. Patient has not come out of her bed and is concerned about desaturation on movement. We will continue IV steroids today and probably switch to prednisone tomorrow for a taper. Temp is 98.1 respiratory rate 20 blood pressure 1:30/77 respiratory rate 20. CBC unremarkable she has a possible discharge tomorrow. 06/08: Patient's symptoms have improved. She is ready to go home. Patient has decided to move forward with lung transplant and not go to hospice at this time. We will continue steroids by mouth with a tapering dose. Patient is concerned about use of narcotics and lung transplant. Patient is requesting to see a pain management physician to assist with coming off of [place]. Discharge diagnosis: 1. Acute exacerbation of her underlying advanced end-stage COPD. 2. Advanced end-stage COPD with large bulla on the right upper lobe multiple ruptured bulla and spontaneous pneumothorax in the past 3. Chronic hypoxemic and hypercapneic respiratory failure requiring mechanical ventilation in the past and Trach which has since removed. 4. History of Crohn's colitis status post subtotal colectomy and ostomy. 5. Moderate protein calorie malnutrition. 6. H/O critical illness myopathy post IVIG infusion. 7. Generalized anxiety disorder. 8. Fibromyalgia with bilateral neuropathy. 9. Sinus tachycardia. 10. Vitamin D deficiency. 11. B12 deficiency. 12. Glaucoma. 13. Hypomagnesemia. 14. Chronic pain on [place] 15. Elevated liver function tests. Disposition: Home with self-care Impression and plan of care have been directed as dictated by the signing physician. Juani Mejia nurse practitioner acting as scribe for signing physician. Patient Condition at Discharge: Fair Plan - Discharge Summary Discharge Rx Participant: No New Discharge Prescriptions: New predniSONE 20 mg PO DAILY #23 tab Azithromycin [Zithromax] 500 mg PO DAILY #5 tab Continue Latanoprost Ophth [Xalatan 0.005%] 1 drop BOTH EYES HS Dicyclomine [Bentyl] 10 mg PO TID PRN PRN Reason: Gi Upset Budesonide 1 mg INHALATION RT-BID PRN PRN Reason: Shortness Of Breath Gabapentin [Neurontin] 300 mg PO TID Opium Tincture 10mg/1ml 20 mg PO QID PRN PRN Reason: Diarrhea HYDROcodone/APAP 10-325MG [[place] 10-325] 1 tab PO Q4H PRN PRN Reason: Pain Metoprolol Tartrate [Lopressor] 50 mg PO TID #90 tab Albuterol Nebulized [Ventolin Nebulized] 2.5 mg INHALATION RT-QID PRN #120 nebu PRN Reason: Shortness Of Breath Guaifen/Phenyleph/Acetaminophn [Mucinex Sinus-Max Severe Liq] 10 ml PO Q6H PRN PRN Reason: Cough Aclidinium [place] [Tudorza Pressair] 1 puff INHALATION RT-BID Mercaptopurine [Purinethol] 50 mg PO BID busPIRone HCl [Buspar] 10 mg PO BID PRN PRN Reason: Anxiety Fluticasone/Vilanterol [Breo Ellipta 200-25 Mcg INH] 1 puff INHALATION RT- DAILY ALPRAZolam [Xanax] 0.25 mg PO DAILY PRN PRN Reason: Anxiety Adalimumab [Humira(Cf) Pen] 40 mg SQ Q7D DULoxetine HCL [Cymbalta] 30 mg PO DAILY Hyoscyamine Sulfate [Levsin] 0.125 mg PO Q4H PRN #90 tab PRN Reason: Abdominal Distention Ondansetron HCl [Zofran] 4 mg PO BID PRN PRN Reason: Nausea Nystatin 100,000 Unit/ml Susp [Mycostatin Oral Susp] 5 ml PO QID PRN PRN Reason: THRUSH Albuterol Sulfate [Proair Hfa] 2 puff INHALATION RT-Q6H PRN PRN Reason: Shortness Of Breath Pantoprazole [Protonix] 40 mg PO QAM Mupirocin 2% Oint [Bactroban 2% Oint] 1 applic TOPICAL DAILY PRN PRN Reason: Rash Mirtazapine [Remeron] 7.5 mg PO HS@1900 Melatonin 10 mg PO HS PRN PRN Reason: Insomnia Magnesium Oxide [Adan] 500 mg PO DAILY Diphenox-Atrop 2.5-0.025 mg [Lomotil] 1 tab PO TID Calcium Gummies 500mg 500 mg PO BID Lidocaine 5% Patch [Lidoderm 5% Patch] 1 patch TOPICAL DAILY Sucralfate [Carafate] 1 gm PO TID PRN PRN Reason: Gi Upset Cyanocobalamin [Vitamin B-12 Injection] 1,000 mcg SQ Q30D Multivitamins, Thera [Multivitamin (formulary)] 1 tab PO DAILY Cholecalciferol (Vitamin D3) [Vitamin D3] 2,000 unit PO DAILY Discharge Medication List Latanoprost Ophth [Xalatan 0.005%] 1 drop BOTH EYES HS 05/21/17 [History] Dicyclomine [Bentyl] 10 mg PO TID PRN 07/24/18 [History] Budesonide 1 mg INHALATION RT-BID PRN 09/27/18 [History] Gabapentin [Neurontin] 300 mg PO TID 09/27/18 [History] HYDROcodone/APAP 10-325MG [[place] 10-325] 1 tab PO Q4H PRN 09/27/18 [History] Opium Tincture 10mg/1ml 20 mg PO QID PRN 09/27/18 [History] Albuterol Nebulized [Ventolin Nebulized] 2.5 mg INHALATION RT-QID PRN #120 nebu 11/10/18 [Rx] Metoprolol Tartrate [Lopressor] 50 mg PO TID #90 tab 11/10/18 [Rx] Aclidinium [place] [Tudorza Pressair] 1 puff INHALATION RT-BID 11/29/18 [History] Fluticasone/Vilanterol [Breo Ellipta 200-25 Mcg INH] 1 puff INHALATION RT-DAILY 11/29/18 [History] Guaifen/Phenyleph/Acetaminophn [Mucinex Sinus-Max Severe Liq] 10 ml PO Q6H PRN 11/29/18 [History] Mercaptopurine [Purinethol] 50 mg PO BID 11/29/18 [History] busPIRone HCl [Buspar] 10 mg PO BID PRN 11/29/18 [History] ALPRAZolam [Xanax] 0.25 mg PO DAILY PRN 12/28/18 [History] Adalimumab [Humira(Cf) Pen] 40 mg SQ Q7D 12/28/18 [History] DULoxetine HCL [Cymbalta] 30 mg PO DAILY 12/28/18 [History] Hyoscyamine Sulfate [Levsin] 0.125 mg PO Q4H PRN #90 tab 02/05/19 [Rx] Albuterol Sulfate [Proair Hfa] 2 puff INHALATION RT-Q6H PRN 03/26/19 [History] Calcium Gummies 500mg 500 mg PO BID 03/26/19 [History] Diphenox-Atrop 2.5-0.025 mg [Lomotil] 1 tab PO TID 03/26/19 [History] Magnesium Oxide [Adan] 500 mg PO DAILY 03/26/19 [History] Melatonin 10 mg PO HS PRN 03/26/19 [History] Mirtazapine [Remeron] 7.5 mg PO HS@1900 03/26/19 [History] Mupirocin 2% Oint [Bactroban 2% Oint] 1 applic TOPICAL DAILY PRN 03/26/19 [History] Nystatin 100,000 Unit/ml Susp [Mycostatin Oral Susp] 5 ml PO QID PRN 03/26/19 [History] Ondansetron HCl [Zofran] 4 mg PO BID PRN 03/26/19 [History] Pantoprazole [Protonix] 40 mg PO QAM 03/26/19 [History] Lidocaine 5% Patch [Lidoderm 5% Patch] 1 patch TOPICAL DAILY 04/16/19 [History] Sucralfate [Carafate] 1 gm PO TID PRN 04/16/19 [History] Cholecalciferol (Vitamin D3) [Vitamin D3] 2,000 unit PO DAILY 06/06/19 [History] Cyanocobalamin [Vitamin B-12 Injection] 1,000 mcg SQ Q30D 06/06/19 [History] Multivitamins, Thera [Multivitamin (formulary)] 1 tab PO DAILY 06/06/19 [History] Azithromycin [Zithromax] 500 mg PO DAILY #5 tab 06/08/19 [Rx] predniSONE 20 mg PO DAILY #23 tab 06/08/19 [Rx] Follow up Appointment(s)/Referral(s): Michael Meza DO [Doctor of Osteopathic Medicine] - 1 Week (Patient to call Dr. Meza's office Monday to schedule follow up appointment. The office is closed at time of discharge. ) Heber James MD [Primary Care Provider] - 1 Week (Patient to call Dr. James's office Monday to schedule follow up appointment. The office is closed at time of discharge. ) Patient Instructions/Handouts: Prednisone (By mouth), Azithromycin (By mouth), COPD (Chronic Obstructive Pulmonary Disease) (DC) Activity/Diet/Wound Care/Special Instructions: diet as tolerated activity limited until seen by Discharge Disposition: HOME SELF-CARE
== END 2019-06-08 12:40 | disposition home or self-care (01) | DRG 190 ==
LOC: EC 03:29 → 1SOBS 04:43 → 3NMEDONC 21:00 → OBSVTOIN 06-07 13:58
PROVIDERS: ADMIT Internal Medicine; ATTEND Internal Medicine
DX: J43.9 Emphysema, unspecified (principal); J96.21 Acute and chronic respiratory failure with hypoxia; J96.22 Acute and chronic respiratory failure with hypercapnia; E44.0 Moderate protein-calorie malnutrition; F33.9 Major depressive disorder, recurrent, unspecified; K50.10 Crohn's disease of large intestine without complications; E83.42 Hypomagnesemia; G62.9 Polyneuropathy, unspecified; E03.9 Hypothyroidism, unspecified; E53.8 Deficiency of other specified B group vitamins; E55.9 Vitamin D deficiency, unspecified; E78.5 Hyperlipidemia, unspecified; F41.1 Generalized anxiety disorder; G89.4 Chronic pain syndrome; H40.9 Unspecified glaucoma; K21.9 Gastro-esophageal reflux disease without esophagitis; M79.7 Fibromyalgia; M81.0 Age-related osteoporosis without current pathological fracture; F41.9 Anxiety disorder, unspecified; J30.2 Other seasonal allergic rhinitis; M19.90 Unspecified osteoarthritis, unspecified site; R00.0 Tachycardia, unspecified; R32 Unspecified urinary incontinence; R74.8 Abnormal levels of other serum enzymes; K44.9 Diaphragmatic hernia without obstruction or gangrene; Z79.891 Long term (current) use of opiate analgesic; Z79.899 Other long term (current) drug therapy; Z99.81 Dependence on supplemental oxygen; Z93.2 Ileostomy status; Z90.710 Acquired absence of both cervix and uterus; Z90.49 Acquired absence of other specified parts of digestive tract; Z87.891 Personal history of nicotine dependence; Z87.01 Personal history of pneumonia (recurrent); Z86.74 Personal history of sudden cardiac arrest; Z88.2 Allergy status to sulfonamides; Z88.8 Allergy status to other drugs, medicaments and biological substances; Z88.6 Allergy status to analgesic agent; Z91.041 Radiographic dye allergy status; Z80.8 Family history of malignant neoplasm of other organs or systems; Z82.3 Family history of stroke; Z82.49 Family history of ischemic heart disease and other diseases of the circulatory system; Z82.5 Family history of asthma and other chronic lower respiratory diseases; Z83.3 Family history of diabetes mellitus; Z82.0 Family history of epilepsy and other diseases of the nervous system; Z82.61 Family history of arthritis; Z76.82 Awaiting organ transplant status
CPT/HCPCS: 36415; 71045; 71250; 80053; 85025; 93005; 94640; 96365; 96366; 96375; 99285

== ENCOUNTER 2019-06-23 10:14 | Emergency (ER) | payer BC ==
--- NOTE | 2019-06-23 10:30 | ED ---
General Adult HPI - General Stated complaint: Nose bleed Time Seen by Provider: 06/23/19 10:18 Source: RN notes reviewed, old records reviewed - History of Present Illness Initial comments: 59-year-old female patient past history of COPD, fibromyalgia, GERD, pneumonia presents to ED with chief complaint of epistaxis. Patient reports that she had a nosebleed in her right MIRIAM and then had some blood draining down the back of her throat causing her to cough it up. Patient is a this was concerning so she presented to ER. Patient voices has stopped without intervention. Patient has significant complaint of chronic epigastric burning secondary to her GERD and reported Crohn's disease. Patient states that this pain is baseline for her, however she took her Protonix was not taking her chronic pain medication home. Patient requests dosing of chronic pain medication. Denies any other acute complaints at this time. Denies any headache, changes in vision. Denies any use of blood thinners. Systemic: Pt denies fatigue, fever/chills, rash. Pt denies weakness, night sweats, weight loss. Neuro: Pt denies headache, visual disturbances, syncope or pre-syncope. HEENT: Pt denies ocular discharge or irritation, otalgia, rhinorrhea, pharyngitis or notable lymphadenopathy. Cardiopulmonary: Pt denies chest pain, SOB, heart palpitations, dyspnea on exertion. Abdominal/GI: Pt denies n/v/d. : Pt denies dysuria, burning w/ urination, frequency/urgency. Denies new onset urinary or bowel incontinence. MSK: Pt denies myalgia, loss of strength or function in extremities. Neuro: Pt denies new onset weakness, paresthesias. - Related Data Home Medications Medication Instructions Recorded Confirmed Latanoprost Ophth [Xalatan 0.005%] 1 drop BOTH EYES HS 05/21/17 06/23/19 Dicyclomine [Bentyl] 10 mg PO TID PRN 07/24/18 06/23/19 Budesonide 1 mg INHALATION RT-BID PRN 09/27/18 06/23/19 Gabapentin [Neurontin] 300 mg PO TID 09/27/18 06/23/19 HYDROcodone/APAP 10-325MG [[place] 1 tab PO Q4H PRN 09/27/18 06/23/19 10-325] Opium Tincture 10mg/1ml 20 mg PO QID PRN 09/27/18 06/23/19 Aclidinium [place] [Tudorza 1 puff INHALATION RT-BID 11/29/18 06/23/19 Pressair] Fluticasone/Vilanterol [Breo 1 puff INHALATION RT-DAILY 11/29/18 06/23/19 Ellipta 200-25 Mcg INH] Guaifen/Phenyleph/Acetaminophn 10 ml PO Q6H PRN 11/29/18 06/23/19 [Mucinex Sinus-Max Severe Liq] Mercaptopurine [Purinethol] 50 mg PO BID 11/29/18 06/23/19 busPIRone HCl [Buspar] 10 mg PO BID PRN 11/29/18 06/23/19 Adalimumab [Humira(Cf) Pen] 40 mg SQ Q7D 12/28/18 06/23/19 DULoxetine HCL [Cymbalta] 30 mg PO DAILY 12/28/18 06/23/19 Albuterol Sulfate [Proair Hfa] 2 puff INHALATION RT-Q6H PRN 03/26/19 06/23/19 Calcium Gummies 500mg 500 mg PO BID 03/26/19 06/23/19 Diphenox-Atrop 2.5-0.025 mg 1 tab PO TID 03/26/19 06/23/19 [Lomotil] Magnesium Oxide [Adan] 500 mg PO DAILY 03/26/19 06/23/19 Melatonin 10 mg PO HS PRN 03/26/19 06/23/19 Mirtazapine [Remeron] 7.5 mg PO HS@1900 03/26/19 06/23/19 Mupirocin 2% Oint [Bactroban 2% 1 applic TOPICAL DAILY PRN 03/26/19 06/23/19 Oint] Nystatin 100,000 Unit/ml Susp 5 ml PO QID PRN 03/26/19 06/23/19 [Mycostatin Oral Susp] Ondansetron HCl [Zofran] 4 mg PO BID PRN 03/26/19 06/23/19 Pantoprazole [Protonix] 40 mg PO QAM 03/26/19 06/23/19 Lidocaine 5% Patch [Lidoderm 5% 1 patch TOPICAL DAILY 04/16/19 06/23/19 Patch] Sucralfate [Carafate] 1 gm PO TID PRN 04/16/19 06/23/19 Cholecalciferol (Vitamin D3) 2,000 unit PO DAILY 06/06/19 06/23/19 [Vitamin D3] Cyanocobalamin [Vitamin B-12 1,000 mcg SQ Q30D 06/06/19 06/23/19 Injection] Multivitamins, Thera [Multivitamin 1 tab PO DAILY 06/06/19 06/23/19 (formulary)] predniSONE See Taper PO DIRECTED 06/23/19 06/23/19 Previous Rx's Medication Instructions Recorded Albuterol Nebulized [Ventolin 2.5 mg INHALATION RT-QID PRN #120 11/10/18 Nebulized] nebu Metoprolol Tartrate [Lopressor] 50 mg PO TID #90 tab 11/10/18 Hyoscyamine Sulfate [Levsin] 0.125 mg PO Q4H PRN #90 tab 02/05/19 Allergies Allergy/AdvReac Type Severity Reaction Status Date / Time Iodinated Contrast- Oral and Allergy Anaphylaxis Verified 06/23/19 10:21 IV Dye pregabalin [From Lyrica] Allergy Unknown Verified 06/23/19 10:21 rofecoxib [From Vioxx] Allergy Unknown Verified 06/23/19 10:21 Sulfa (Sulfonamide Allergy Rash/Hives Verified 06/23/19 10:21 Antibiotics) aspirin AdvReac Internal Verified 06/23/19 10:21 Bleeding timolol [Timolol] AdvReac Nausea & Verified 06/23/19 10:21 Vomiting Review of Systems ROS Statement: Those systems with pertinent positive or pertinent negative responses have been documented in the HPI. ROS Other: All systems not noted in ROS Statement are negative. Past Medical History Past Medical History: COPD, Eye Disorder, Fibromyalgia, GERD/Reflux, GI Bleed, Osteoarthritis (OA), Pneumonia, Syncope, Thyroid Disorder Additional Past Medical History / Comment(s): Pt states she recently had an appt on [facility] on 04/04/19 and she is going to be going on a lung transplant list after she completes her paperwork/prior requirments, crohn's colitis, ulcerative colitis, bowel obstructions, multiple bowel surgeries including total colectomy/ileostomy, severe COPD, chronic respiratory failure, home O2 3L/NC, bollous emphysema/ruptured bollous, R lung bleb R pneumothorax x3, L pneumotho rax x1 and had bilateral pneumothorax 09/2018-acute respiratory failure/vented/cardiac arrest, tachycardia, myopathy, IVIG infusions, hiatal hernia, lower GI bleeds, arthritis in multiple joints, osteoporosis, chronic pain, seasonal allergies, bilateral glaucoma and has had bilateral eye surgery for retinal tears/holes, vitamin D and B12 deficiencies, hypothyroid, moderate protein calorie malnutrition. History of Any Multi-Drug Resistant Organisms: None Reported Past Surgical History: Breast Surgery, Cholecystectomy, Hernia Repair, Hysterectomy, Orthopedic Surgery Additional Past Surgical History / Comment(s): Multiple bowel surgeries including total colectomy/ileostomy, ileostomy moved/repaired, R salpingoophorectomy due to ectopic , total hysterectomy, LEEP procedure, laparoscopy for endometriosis, L breast lumpectomy-benign, r breast core bx-benign, R inguinal hernia repair, EGD/colonoscopies, right thoravent x2, arthroscopic knee surgery on the Left due to ACL and Meniscal tear, trach and peg tube-since removed. bone marrow biopsy and aspirate Past Anesthesia/Blood Transfusion Reactions: No Reported Reaction Additional Past Anesthesia/Blood Transfusion Reaction / Comment(s): Never recieved blood transfusion Smoking Status: Former smoker - Past Family History Mother Family Medical History: Cancer, COPD, Hypertension Additional Family Medical History / Comment(s): Mother at age 83 from COPD and had osteoarthritis and skin cancer. Father Family Medical History: Cancer, CVA/TIA, Dementia, Diabetes Mellitus Additional Family Medical History / Comment(s): Father is 92 yrs old. He has had several TIAs and a CVA Brother(s) Family Medical History: Cancer Additional Family Medical History / Comment(s): Patient had 5 brothers and one of them from melanoma at age 41. Sister(s) History Unknown: Yes Family Medical History: No Reported History Additional Family Medical History / Comment(s): Patient has one sister. Patient has no children General Exam - General Exam Comments Initial Comments: Constitutional: NAD, AOX3, Pt has pleasant affect. HEENT: NC/AT, trachea midline, neck supple, no lymphadenopathy. Posterior pharynx non erythematous, without exudates. External ears appear normal, without discharge. Mucous membranes moist. Eyes PERRLA, EOM intact. There is no scleral icterus. No pallor noted. Cardiopulmonary: RRR, no murmurs, rubs or gallops, no JVD noted. Lungs CTAB in anterior and posterior hunter. No peripheral edema. Abdominal exam: Abdomen soft and non-distended. Abdomen mildly to palpation in epigastric region. Bowel sounds active in LLQ. No hepatosplenomegaly. No ecchymosis Neuro: CN II-XII grossly intact. No nuchal rigidity. No raccon eyes, no lauren sign, no hemotympanum. No cervical spinal tenderness. MSK: No posterior calf tenderness bilaterally, homans sign negative bilaterally. Posterior tibialis and radial pulse +2 bilaterally. Sensation intact in upper and lower extremities. Full active ROM in upper and lower extremities, 5/5 stregnth. Course Vital Signs 06/23/19 06/23/19 10:29 10:46 Temperature 97.9 F Pulse Rate 107 H 98 Respiratory 16 Rate Blood Pressure 140/97 O2 Sat by Pulse 96 Oximetry Medical Decision Making - Medical Decision Making 59 female patient presents ED chief complaint epistaxis which resolved prior to arrival at ER. She also in stable, afebrile. Patient secondary complaint of chronic epigastric abdominal pain which is unchanged. At patient request patient was administered home dose pain medication. This was confirmed by pharmacy. Patient continues to be epistaxis free. Patient will discharge with nasal clamp, states she has Afrin at home. Patient instructed on how to treat epistaxis in the future. Patient return here patient worsens. Case discussed with Dr. Akhtar. Disposition Clinical Impression: Epistaxis Disposition: HOME SELF-CARE Condition: Stable Instructions (If sedation given, give patient instructions): Nosebleed (ED) Additional Instructions: Patient to adhere to previously discussed treatment plan and will take medication(s) as directed. Patient to follow up with PCP in 1-2 days. Patient to return to ED if symptoms do not improve. If future Nosebleed use 2 sprays of Afrin in affected nostril, and nasal clamp for 30 minutes then remove. Is patient prescribed a controlled substance at d/c from ED?: No Referrals: Heber James MD [Primary Care Provider] - 1-2 days
[2019-06-23 10:34] VITALS: RESP 16; TEMP 97.9
[2019-06-23] MEDS ORDERED: HYDROcodone/APAP 7.5-325MG 1 EACH TAB PO ONE (10:35)
[2019-06-23 11:10] VITALS: BP 139/72; PULSE 97
== END 2019-06-23 11:08 | disposition home or self-care (01) ==
LOC: EC 10:14
DX: R04.0 Epistaxis (principal); R10.13 Epigastric pain; G89.29 Other chronic pain; J43.9 Emphysema, unspecified; J96.10 Chronic respiratory failure, unspecified whether with hypoxia or hypercapnia; H40.9 Unspecified glaucoma; M79.7 Fibromyalgia; K51.90 Ulcerative colitis, unspecified, without complications; M19.90 Unspecified osteoarthritis, unspecified site; K21.9 Gastro-esophageal reflux disease without esophagitis; E55.9 Vitamin D deficiency, unspecified; E53.8 Deficiency of other specified B group vitamins; F41.9 Anxiety disorder, unspecified; F32.9 Major depressive disorder, single episode, unspecified; Z87.891 Personal history of nicotine dependence; Z88.2 Allergy status to sulfonamides; Z88.6 Allergy status to analgesic agent; Z88.8 Allergy status to other drugs, medicaments and biological substances; Z91.041 Radiographic dye allergy status; Z79.51 Long term (current) use of inhaled steroids; Z79.52 Long term (current) use of systemic steroids; Z79.899 Other long term (current) drug therapy; Z87.19 Personal history of other diseases of the digestive system; Z90.49 Acquired absence of other specified parts of digestive tract; Z99.81 Dependence on supplemental oxygen
CPT/HCPCS: 99284

== ENCOUNTER 2019-06-27 05:02 | Inpatient (IN) | payer BC ==
--- NOTE | 2019-06-27 05:35 | XR ---
EXAM: XR Chest, 1 View CLINICAL HISTORY: ITS.REASON XR Reason: SELENA TECHNIQUE: Frontal view of the chest. COMPARISON: Chest radiography 06/06/19 FINDINGS: Trachea, heart, and mediastinal structures remain midline. Blunting of the right costophrenic angle may represent pleural parenchymal scarring and less likely pleural effusion. Heterogeneous opacities at the bases. Consider partial atelectasis, infiltrate, and sequela of aspiration. Increased lucencies involving the right lung suggest emphysema. IMPRESSION: Left apical pneumothorax is highly suspected. Intrapleural distance is 3.3 cm near the apex. <MYCVCSECTION> Critical Value Communications 06/27/19 05:38 Call Doctor Regarding Above results, called Dr. Brown on 06/27 05:38 (-04:00)
--- NOTE | 2019-06-27 05:51 | ED ---
SOB HPI - General Chief Complaint: Shortness of Breath Stated Complaint: SELENA Source: patient, EMS Mode of arrival: EMS Limitations: physical limitation - History of Present Illness Initial Comments: Caitie is a 59-year-old female who presents to the emergency department today via EMS for evaluation of respiratory distress. Patient has a history of end- stage COPD on oxygen, patient reported progressively worsening shortness of breath. Patient took one breathing treatment prior to calling EMS. EMS arrived on scene to find the patient with oxygen saturation in the mid 80s, increased work of breathing, tachycardia with heart rate in the 160s to 180s. There is concern the patient may be in SVT therefore IV access was obtained and 12 mg of adenosine was given. Patient's heart rate slowed for approximately 30 seconds and then resumed tachycardia with a rate in the 150s. At that time patient arrived at the emergency department. Patient received one breathing treatment in route to the hospital. - Related Data Home Medications Medication Instructions Recorded Confirmed Latanoprost Ophth [Xalatan 0.005%] 1 drop BOTH EYES HS 05/21/17 06/23/19 Dicyclomine [Bentyl] 10 mg PO TID PRN 07/24/18 06/23/19 Budesonide 1 mg INHALATION RT-BID PRN 09/27/18 06/23/19 Gabapentin [Neurontin] 300 mg PO TID 09/27/18 06/23/19 HYDROcodone/APAP 10-325MG [[place] 1 tab PO Q4H PRN 09/27/18 06/23/19 10-325] Opium Tincture 10mg/1ml 20 mg PO QID PRN 09/27/18 06/23/19 Aclidinium [place] [[place] 1 puff INHALATION RT-BID 11/29/18 06/23/19 Pressair] Fluticasone/Vilanterol [Breo 1 puff INHALATION RT-DAILY 11/29/18 06/23/19 Ellipta 200-25 Mcg INH] Guaifen/Phenyleph/Acetaminophn 10 ml PO Q6H PRN 11/29/18 06/23/19 [Mucinex Sinus-Max Severe Liq] Mercaptopurine [Purinethol] 50 mg PO BID 11/29/18 06/23/19 busPIRone HCl [Buspar] 10 mg PO BID PRN 11/29/18 06/23/19 Adalimumab [Humira(Cf) Pen] 40 mg SQ Q7D 12/28/18 06/23/19 DULoxetine HCL [Cymbalta] 30 mg PO DAILY 12/28/18 06/23/19 Albuterol Sulfate [Proair Hfa] 2 puff INHALATION RT-Q6H PRN 03/26/19 06/23/19 Calcium Gummies 500mg 500 mg PO BID 03/26/19 06/23/19 Diphenox-Atrop 2.5-0.025 mg 1 tab PO TID 03/26/19 06/23/19 [Lomotil] Magnesium Oxide [Adan] 500 mg PO DAILY 03/26/19 06/23/19 Melatonin 10 mg PO HS PRN 03/26/19 06/23/19 Mirtazapine [Remeron] 7.5 mg PO HS@1900 03/26/19 06/23/19 Mupirocin 2% Oint [Bactroban 2% 1 applic TOPICAL DAILY PRN 03/26/19 06/23/19 Oint] Nystatin 100,000 Unit/ml Susp 5 ml PO QID PRN 03/26/19 06/23/19 [Mycostatin Oral Susp] Ondansetron HCl [Zofran] 4 mg PO BID PRN 03/26/19 06/23/19 Pantoprazole [Protonix] 40 mg PO QAM 03/26/19 06/23/19 Lidocaine 5% Patch [Lidoderm 5% 1 patch TOPICAL DAILY 04/16/19 06/23/19 Patch] Sucralfate [Carafate] 1 gm PO TID PRN 04/16/19 06/23/19 Cholecalciferol (Vitamin D3) 2,000 unit PO DAILY 06/06/19 06/23/19 [Vitamin D3] Cyanocobalamin [Vitamin B-12 1,000 mcg SQ Q30D 06/06/19 06/23/19 Injection] Multivitamins, Thera [Multivitamin 1 tab PO DAILY 06/06/19 06/23/19 (formulary)] predniSONE See Taper PO DIRECTED 06/23/19 06/23/19 Previous Rx's Medication Instructions Recorded Albuterol Nebulized [Ventolin 2.5 mg INHALATION RT-QID PRN #120 11/10/18 Nebulized] nebu Metoprolol Tartrate [Lopressor] 50 mg PO TID #90 tab 11/10/18 Hyoscyamine Sulfate [Levsin] 0.125 mg PO Q4H PRN #90 tab 02/05/19 Allergies Allergy/AdvReac Type Severity Reaction Status Date / Time Iodinated Contrast- Oral and Allergy Anaphylaxis Verified 06/23/19 10:21 IV Dye pregabalin [From Lyrica] Allergy Unknown Verified 06/23/19 10:21 rofecoxib [From Vioxx] Allergy Unknown Verified 06/23/19 10:21 Sulfa (Sulfonamide Allergy Rash/Hives Verified 06/23/19 10:21 Antibiotics) aspirin AdvReac Internal Verified 06/23/19 10:21 Bleeding timolol [Timolol] AdvReac Nausea & Verified 06/23/19 10:21 Vomiting Review of Systems ROS Statement: Those systems with pertinent positive or pertinent negative responses have been documented in the HPI. ROS Other: All systems not noted in ROS Statement are negative. Past Medical History Past Medical History: COPD, Eye Disorder, Fibromyalgia, GERD/Reflux, GI Bleed, Osteoarthritis (OA), Pneumonia, Syncope, Thyroid Disorder Additional Past Medical History / Comment(s): Pt states she recently had an appt on [facility] on 04/04/19 and she is going to be going on a lung transplant list after she completes her paperwork/prior requirments, crohn's colitis, ulcerative colitis, bowel obstructions, multiple bowel surgeries including total colectomy/ileostomy, severe COPD, chronic respiratory failure, home O2 3L/NC, bollous emphysema/ruptured bollous, R lung bleb R pneumothorax x3, L pneumothorax x1 and had bilateral pneumothorax 09/2018-acute respiratory failure/vented/cardiac arrest, tachycardia, myopathy, IVIG infusions, hiatal hernia, lower GI bleeds, arthritis in multiple joints, osteoporosis, chronic pain, seasonal allergies, bilateral glaucoma and has had bilateral eye surgery for retinal tears/holes, vitamin D and B12 deficiencies, hypothyroid, moderate protein calorie malnutrition. History of Any Multi-Drug Resistant Organisms: None Reported Past Surgical History: Breast Surgery, Cholecystectomy, Hernia Repair, Hy sterectomy, Orthopedic Surgery Additional Past Surgical History / Comment(s): Multiple bowel surgeries including total colectomy/ileostomy, ileostomy moved/repaired, R salping oophorectomy due to ectopic , total hysterectomy, LEEP procedure, laparoscopy for endometriosis, L breast lumpectomy-benign, r breast core bx- benign, R inguinal hernia repair, EGD/colonoscopies, right thoravent x2, arthroscopic knee surgery on the Left due to ACL and Meniscal tear, trach and peg tube-since removed. bone marrow biopsy and aspirate Past Anesthesia/Blood Transfusion Reactions: No Reported Reaction Additional Past Anesthesia/Blood Transfusion Reaction / Comment(s): Never recieved blood transfusion Past Psychological History: Anxiety, Depression Smoking Status: Former smoker - Past Family History Mother Family Medical History: Cancer, COPD, Hypertension Additional Family Medical History / Comment(s): Mother at age 83 from COPD and had osteoarthritis and skin cancer. Father Family Medical History: Cancer, CVA/TIA, Dementia, Diabetes Mellitus Additional Family Medical History / Comment(s): Father is 92 yrs old. He has had several TIAs and a CVA Brother(s) Family Medical History: Cancer Additional Family Medical History / Comment(s): Patient had 5 brothers and one of them from melanoma at age 41. Sister(s) History Unknown: Yes Family Medical History: No Reported History Additional Family Medical History / Comment(s): Patient has one sister. Patient has no children General Exam - General Exam Comments Initial Comments: Physical Exam GENERAL: Chronically ill-appearing in moderate respiratory distress HENT: Normocephalic, Atraumatic. EYES: Mild conjunctival pallor PULMONARY: Wheezing in all lung hunter CARDIOVASCULAR: Tachycardic, regular Well-perfused extremities ABDOMEN: Colostomy right lower quadrant SKIN: Pale : Deferred NEUROLOGIC: Patient is alert and oriented x3. Moving all extremities spontaneously MUSCULOSKELETAL: Normal extremities with adequate strength and full range of motion. No lower extremity swelling or edema. No calf tenderness. PSYCHIATRIC: Normal psychiatric evaluation. Limitations: physical limitation Course Vital Signs 06/27/19 06/27/19 06/27/19 05:05 05:20 05:30 Temperature 99.7 F H Pulse Rate 161 H 154 H 152 H Respiratory 32 H 22 31 H Rate Blood Pressure 110/81 120/99 156/103 O2 Sat by Pulse 99 96 96 Oximetry 06/27/19 06/27/19 06/27/19 05:40 06:00 06:50 Temperature Pulse Rate 152 H 140 H 135 H Respiratory 32 H 20 20 Rate Blood Pressure 134/92 108/70 110/74 O2 Sat by Pulse 95 100 Oximetry Medical Decision Making - Medical Decision Making The patient was seen and evaluated, history is obtained from the patient History and physical exam are concerning for COPD exacerbation with hypoxia tachypnea and tachycardia Labs and imaging were ordered Chest x-ray read as a possible pneumothorax however patient does have a history of a bleb in this area and has been told she has a pneumothorax in the past when in fact she does not a sinus computed tomography scan without contrast was ordered Labs the patient's baseline with chronic anemia Hypercapnia mildly worse than usual heart rate improving with improved respiratory distress, heart rate now, 120s Patient care was discussed with Dr. Arvizu who is familiar with the patient agrees with plan for admission for COPD exacerbation with Dr. Mistry pulmonology consult at - Lab Data Result diagrams: 06/27/19 05:10 06/27/19 05:10 Lab Results 06/27/19 06/27/19 06/27/19 Range/Units 05:10 05:10 05:10 WBC 2.1 L (3.8-10.6) k/uL RBC 2.25 L (3.80-5.40) m/uL Hgb 8.4 L (11.4-16.0) gm/dL Hct 26.4 L (34.0-46.0) % MCV 117.4 H (80.0-100.0) fL MCH 37.5 H (25.0-35.0) pg MCHC 32.0 (31.0-37.0) g/dL RDW 18.1 H (11.5-15.5) % Hypochromasia Moderate Poikilocytosis Slight Anisocytosis Slight Macrocytosis Marked A PT (9.0-12.0) sec INR (<1.2) APTT (22.0-30.0) sec Sodium 140 (137-145) mmol/L Potassium 3.9 (3.5-5.1) mmol/L Chloride 91 L (98-107) mmol/L Carbon Dioxide 46 H* (22-30) mmol/L Anion Gap 3 mmol/L BUN 22 H (7-17) mg/dL Creatinine 0.63 (0.52-1.04) mg/dL Est GFR (CKD-EPI)AfAm >90 (>60 ml/min/1.73 sqM) Est GFR (CKD-EPI)NonAf >90 (>60 ml/min/1.73 sqM) Glucose 130 H (74-99) mg/dL Calcium 9.1 (8.4-10.2) mg/dL Magnesium 1.8 (1.6-2.3) mg/dL Total Bilirubin 1.3 (0.2-1.3) mg/dL AST 51 H (14-36) U/L ALT 94 H (9-52) U/L Alkaline Phosphatase 224 H (38-126) U/L Troponin I (0.000-0.034) ng/mL NT-Pro-B Natriuret Pep 199 pg/mL Total Protein 5.1 L (6.3-8.2) g/dL Albumin 2.9 L (3.5-5.0) g/dL 06/27/19 06/27/19 Range/Units 05:10 05:10 WBC (3.8-10.6) k/uL RBC (3.80-5.40) m/uL Hgb (11.4-16.0) gm/dL Hct (34.0-46.0) % MCV (80.0-100.0) fL MCH (25.0-35.0) pg MCHC (31.0-37.0) g/dL RDW (11.5-15.5) % Hypochromasia Poikilocytosis Anisocytosis Macrocytosis PT 9.4 (9.0-12.0) sec INR 0.9 (<1.2) APTT 23.0 (22.0-30.0) sec Sodium (137-145) mmol/L Potassium (3.5-5.1) mmol/L Chloride (98-107) mmol/L Carbon Dioxide (22-30) mmol/L Anion Gap mmol/L BUN (7-17) mg/dL Creatinine (0.52-1.04) mg/dL Est GFR (CKD-EPI)AfAm (>60 ml/min/1.73 sqM) Est GFR (CKD-EPI)NonAf (>60 ml/min/1.73 sqM) Glucose (74-99) mg/dL Calcium (8.4-10.2) mg/dL Magnesium (1.6-2.3) mg/dL Total Bilirubin (0.2-1.3) mg/dL AST (14-36) U/L ALT (9-52) U/L Alkaline Phosphatase (38-126) U/L Troponin I <0.012 (0.000-0.034) ng/mL NT-Pro-B Natriuret Pep pg/mL Total Protein (6.3-8.2) g/dL Albumin (3.5-5.0) g/dL - EKG Data -: EKG Interpreted by Me EKG shows normal: sinus rhythm EKG Comments: EKG was obtained due to tachycardia, EKG obtained at 5:37 AM rate is 152 rhythm is sinus tach there is a normal axis, normal intervals, OK 122, QRS 60, QTC [address] elevations or depressions there is no evidence of acute ischemia or infarction. Critical Care Time Critical Care Time: Yes Total Critical Care Time: 30 Critical Care Time: Critical Care Time Critical care time was exclusive of separately billable procedures and treating other patients and teaching time. Critical care was necessary to treat or prevent imminent or life-threatening deterioration. Given the critical condition in which the patient arrived, the patient was immediately assessed by myself and the nurse, and cardiac monitoring initiated due to the potential for rapid decompensation of the patient's clinical condition. During the course of the patients stay, I spent a considerable amount of time at the bedside performing serial re-evaluations of the patient's hemodynamic and clinical status because of the recognized potential threat to life or limb in this condition. I then had a chance to review not only all of the available current laboratory and radiographic studies obtained today, but I also reviewed old records available to me at the time. Additionally, any ancillary information available including sample finisher records were reviewed. Sequential vital signs were obtained. Disposition Clinical Impression: COPD exacerbation, Lung bullae Disposition: ADMITTED IP TO THIS HOSP Condition: Serious Referrals: Heber James MD [Primary Care Provider] - 1-2 days
[2019-06-27 06:52] LABS: ALT 94 U/L (9-52); AST 51 U/L (14-36); African American GFR (CKD) >90 (>60 ml/min/1.73 sqM); Albumin 2.9 g/dL (3.5-5.0); Alkaline Phosphatase 224 U/L (38-126); Blood Urea Nitrogen 22 mg/dL (7-17); Calcium 9.1 mg/dL (8.4-10.2); Chloride 91 mmol/L (98-107); Glucose 130 mg/dL (74-99); Magnesium 1.8 mg/dL (1.6-2.3); Potassium 3.9 mmol/L (3.5-5.1); Sodium 140 mmol/L (137-145); Total Bilirubin 1.3 mg/dL (0.2-1.3); Total Protein 5.1 g/dL (6.3-8.2)
[2019-06-27 06:55] LABS: INR 0.9 (<1.2); Prothrombin Time 9.4 sec (9.0-12.0)
[2019-06-27 06:58] LABS: Anion Gap 3 mmol/L
[2019-06-27 07:00] LABS: Carbon Dioxide 46 mmol/L (22-30)
[2019-06-27 07:01] LABS: Anisocytosis Slight; HCT 26.4 % (34.0-46.0); HGB 8.4 gm/dL (11.4-16.0); Hypochromasia Moderate; MCH 37.5 pg (25.0-35.0); MCV 117.4 fL (80.0-100.0); Macrocytosis Marked; Poikilocytosis Slight; RBC 2.25 m/uL (3.80-5.40); RDW 18.1 % (11.5-15.5); WBC 2.1 k/uL (3.8-10.6)
[2019-06-27] MEDS ORDERED: methylPREDNISolone SOD SUCCI 125 MG/2 ML VIAL IV STA (07:33)
[2019-06-27 08:04] LABS: Band Neutrophils % 4 %; Eosinophils # (M) 0.02 k/uL (0-0.7); Lymphocytes # (M) 1.01 k/uL (1.0-4.8); Monocytes # (M) 0.06 k/uL (0-1.0); Neutrophils % (M) 44 %; Nucleated Red Blood Cells 0 /100 WBC (0-0); Total Cells Counted 100
[2019-06-27 08:10] LABS: Platelet Count 76 k/uL (150-450)
--- NOTE | 2019-06-27 08:10 | CT ---
EXAMINATION TYPE: CT chest wo con DATE OF EXAM: 06/27/2019 COMPARISON: Chest CT 3 weeks ago and older CTs. Chest x-ray earlier today HISTORY: sob CT DLP: 195.6 mGycm. Automated Exposure Control for Dose Reduction was Utilized. TECHNIQUE: CT scan of the thorax is performed without IV contrast. FINDINGS: LUNGS: Persistent advanced emphysematous change in the right lung with moderate to advanced emphysema tous change in the left lung. Persistent right hilar consolidation and/or atelectasis not significant ly changed from prior study. Persistent posterior left basilar scarring and/or atelectasis. Stable ma sslike consolidation posterior left upper lung axial image 14 measuring 2.4 x 1.8 cm. This is not sig nificantly changed back through December 19, 2017 suggesting postinflammatory etiology. No pleural ef fusion or pneumothorax. Expanded right lung redemonstrated causing left-sided cardiac deviation. MEDIASTINUM: Lack of IV contrast is noted to limit evaluation for mediastinal and especially hilar ad enopathy. There are no definitive greater than 1 cm hilar or mediastinal lymph nodes. No cardiomega ly or pericardial effusion is seen. Prominent right pulmonary artery redemonstrated. OTHER: Liver is diffusely low dense relative to spleen consistent with diffuse fatty infiltration. Th ere is 3 mm calculus midpole of the right kidney axial image 65 on current study not clearly seen on prior. Prior visualized 2 to 3 mm calculus upper pole left kidney is not clearly seen on current stud y suggesting interval passage. Correlate clinically. IMPRESSION: Redemonstration of advanced emphysematous changes greater in right lung with scattered ar eas of scarring and/or atelectasis. No significant change from most recent study. No new infiltrate o r consolidation identified.
[2019-06-27] MEDS: IPRATROPIUM-ALBUTEROL 3 ML NEB INHALATION PRN ×4 (08:22→20:01)
[2019-06-27] MEDS ORDERED: METOPROLOL TARTRATE 25 MG TAB PO STA (10:15)
[2019-06-27] MEDS ORDERED: HYDROcodone/APAP 10-325MG 1 EACH TAB PO PRN (10:17)
[2019-06-27] MEDS ORDERED: Potassium Replacement Protocol 1 EACH MISC MISCELLANE PRN (11:56)
[2019-06-27 11:58] LABS: Glucose,Whole Blood 134 mg/dL (75-99)
[2019-06-27] MEDS ORDERED: POTASSIUM CHLORIDE ER 20 MEQ TAB.ER PO STA (11:59)
[2019-06-27] MEDS: methylPREDNISolone SOD SUCCI 125 MG/2 ML VIAL IV SCH ×3 (12:31→23:06)
[2019-06-27] MEDS: INSULIN ASPART (NovoLOG) 100 UNIT/ML VIAL SQ SCH ×3 (12:31→20:40)
--- NOTE | 2019-06-27 12:54 | P.CRDCN ---
History of Present Illness Consult date: 06/27/19 Requesting physician: Jannia Arvizu Reason for Consult (text): tachycardia Chief complaint: shortness of breath, altered level of consciousness History of present illness: This is a pleasant 59-year-old female patient who follows with Dr. Haines in the office. She has a history of end-stage COPD, oxygen dependent for which she is on 4 L nasal cannula around the clock, fibromyalgia, previous GI bleed for which she is follows with Dr. Bonnie Verma, GERD, hyperlipidemia, hypertension and tachycardia for which she is being followed by Dr. Haines. He presented to the emergency department due to worsening shortness of breath that was not helped with nebulizer treatments at home as well as decreased level of consciousness that her noticed. Upon arrival oxygen saturation was noted to be in the mid 80s with increased work of breathing and tachycardia with a heart rate of 152 for which she was given one dose of IV adenosine 12 mg. According to ER notes patient's heart rate slowed for approximately 30 seconds and then resumed tachycardia with a rate of 153. We are being consulted for tachycardia. She is on metoprolol titrate 50 mg by mouth 3 times a day at home include miss a dose of this this morning. EKG on admission showed sinus tachycardia with PACs. She did have a 2-D echo with Doppler done last year which showed a normal LV systolic function with ejection fraction of 55-60%, mild MR, mild TR. Chest x- ray done in the ER shows a left apical pneumothorax to be highly suspected, intrapleural distance is 3.3 cm near the apex. Labs on admission showed hemoglobin of 8.4 which appears to be around her baseline, potassium 3.9, CO2 46, BUN 22, creatinine 0.63 with a troponin less than 0.012 and NT proBNP of 199. Liver enzymes and the elevated at with an AST of 51, ALT 94 and alkaline phosphatase of 224. Upon examination, patient is resting in bed. She feels bet ter compared to presentation but still feels that her breathing is labored compared to her baseline. She also complains of some chest tightness with breathing. Past Medical History Past Medical History: COPD, Eye Disorder, Fibromyalgia, GERD/Reflux, GI Bleed, Osteoarthritis (OA), Pneumonia, Syncope, Thyroid Disorder Additional Past Medical History / Comment(s): Pt states she recently had an appt on [facility] on 04/04/19 and she is going to be going on a lung transplant list after she completes her paperwork/prior requirments, crohn's colitis, ulcerative colitis, bowel obstructions, multiple bowel surgeries including total colectomy/ ileostomy, severe COPD, chronic respiratory failure, home O2 3L/NC, bollous emphysema/ruptured bollous, R lung bleb R pneumothorax x3, L pneumothorax x1 and had bilateral pneumothorax 09/2018-acute respiratory failure/vented/cardiac arrest, tachycardia, myopathy, IVIG infusions, hiatal hernia, lower GI bleeds, arthritis in multiple joints, osteoporosis, chronic pain, seasonal allergies, bilateral glaucoma and has had bilateral eye surgery for retinal tears/holes, vitamin D and B12 deficiencies, hypothyroid, moderate protein calorie malnutrition. History of Any Multi-Drug Resistant Organisms: None Reported Past Surgical History: Breast Surgery, Cholecystectomy, Hernia Repair, Hysterectomy, Orthopedic Surgery Additional Past Surgical History / Comment(s): Multiple bowel surgeries including total colectomy/ileostomy, ileostomy moved/repaired, R salpingoophorectomy due to ectopic , total hysterectomy, LEEP procedure, laparoscopy for endometriosis, L breast lumpectomy-benign, r breast core bx-benign, R inguinal hernia repair, EGD/colonoscopies, right thoravent x2, arthroscopic knee surgery on the Left due to ACL and Meniscal tear, trach and peg tube-since removed. bone marrow biopsy and aspirate Past Anesthesia/Blood Transfusion Reactions: No Reported Reaction Additional Past Anesthesia/Blood Transfusion Reaction / Comment(s): Never recieved blood transfusion Smoking Status: Former smoker - Past Family History Mother Family Medical History: Cancer, COPD, Hypertension Additional Family Medical History / Comment(s): Mother at age 83 from COPD and had osteoarthritis and skin cancer. Father Family Medical History: Cancer, CVA/TIA, Dementia, Diabetes Mellitus Additional Family Medical History / Comment(s): Father is 92 yrs old. He has had several TIAs and a CVA Brother(s) Family Medical History: Cancer Additional Family Medical History / Comment(s): Patient had 5 brothers and one of them from melanoma at age 41. Sister(s) History Unknown: Yes Family Medical History: No Reported History Additional Family Medical History / Comment(s): Patient has one sister. Patient has no children Medications and Allergies Home Medications Medication Instructions Recorded Confirmed Type Latanoprost Ophth [Xalatan 0.005%] 1 drop BOTH EYES HS 05/21/17 06/27/19 History Dicyclomine [Bentyl] 10 mg PO TID PRN 07/24/18 06/27/19 History Budesonide 1 mg INHALATION RT-BID PRN 09/27/18 06/27/19 History Gabapentin [Neurontin] 300 mg PO TID 09/27/18 06/27/19 History HYDROcodone/APAP 10-325MG [[place] 1 tab PO Q4H PRN 09/27/18 06/27/19 History 10-325] Albuterol Nebulized [Ventolin 2.5 mg INHALATION RT-QID PRN #120 11/10/18 06/27/19 Rx Nebulized] nebu Metoprolol Tartrate [Lopressor] 50 mg PO TID #90 tab 11/10/18 06/27/19 Rx Aclidinium [place] [[place] 1 puff INHALATION RT-BID 11/29/18 06/27/19 History Pressair] Fluticasone/Vilanterol [Breo 1 puff INHALATION RT-DAILY 11/29/18 06/27/19 History Ellipta 200-25 Mcg INH] Guaifen/Phenyleph/Acetaminophn 10 ml PO Q6H PRN 11/29/18 06/27/19 History [Mucinex Sinus-Max Severe Liq] Mercaptopurine [Purinethol] 50 mg PO BID 11/29/18 06/27/19 History busPIRone HCl [Buspar] 10 mg PO BID PRN 11/29/18 06/27/19 History Adalimumab [Humira(Cf) Pen] 40 mg SQ ENGEL 12/28/18 06/27/19 History DULoxetine HCL [Cymbalta] 30 mg PO DAILY 12/28/18 06/27/19 History Hyoscyamine Sulfate [Levsin] 0.125 mg PO Q4H PRN #90 tab 02/05/19 06/27/19 Rx Albuterol Sulfate [Proair Hfa] 2 puff INHALATION RT-Q6H PRN 03/26/19 06/27/19 History Calcium Gummies 500mg 500 mg PO BID 03/26/19 06/27/19 History Diphenox-Atrop 2.5-0.025 mg 1 tab PO TID 03/26/19 06/27/19 History [Lomotil] Magnesium Oxide [Adan] 500 mg PO DAILY 03/26/19 06/27/19 History Melatonin 10 mg PO HS PRN 03/26/19 06/27/19 History Mirtazapine [Remeron] 7.5 mg PO HS@1900 03/26/19 06/27/19 History Mupirocin 2% Oint [Bactroban 2% 1 applic TOPICAL DAILY PRN 03/26/19 06/27/19 History Oint] Nystatin 100,000 Unit/ml Susp 5 ml PO QID PRN 03/26/19 06/27/19 History [Mycostatin Oral Susp] Ondansetron HCl [Zofran] 4 mg PO BID PRN 03/26/19 06/27/19 History Pantoprazole [Protonix] 40 mg PO QAM 03/26/19 06/27/19 History Lidocaine 5% Patch [Lidoderm 5% 1 patch TOPICAL DAILY 04/16/19 06/27/19 History Patch] Sucralfate [Carafate] 1 gm PO TID PRN 04/16/19 06/27/19 History Cholecalciferol (Vitamin D3) 2,000 unit PO DAILY 06/06/19 06/27/19 History [Vitamin D3] Cyanocobalamin [Vitamin B-12 1,000 mcg SQ Q30D 06/06/19 06/27/19 History Injection] Multivitamins, Thera [Multivitamin 1 tab PO BID 06/06/19 06/27/19 History (formulary)] ALPRAZolam [Xanax] 0.25 mg PO DAILY PRN 06/27/19 06/27/19 History Nystatin 100,000 Unit/gm Powd 1 applic TOPICAL DAILY PRN 06/27/19 06/27/19 History [Mycostatin Powder] Opium Tincture 2 ml PO QID PRN 06/27/19 06/27/19 History Allergies Allergy/AdvReac Type Severity Reaction Status Date / Time Iodinated Contrast- Oral and Allergy Anaphylaxis Verified 06/27/19 08:54 IV Dye pregabalin [From Lyrica] Allergy Unknown Verified 06/27/19 08:54 rofecoxib [From Vioxx] Allergy Unknown Verified 06/27/19 08:54 Sulfa (Sulfonamide Allergy Rash/Hives Verified 06/27/19 08:54 Antibiotics) aspirin AdvReac Internal Verified 06/27/19 08:54 Bleeding timolol [Timolol] AdvReac Nausea & Verified 06/27/19 08:54 Vomiting Physical Exam Vitals: Vital Signs Temp Pulse Pulse Resp BP BP Pulse Ox 06/27/19 12:00 97.7 F 132 H 18 91/67 97 06/27/19 11:10 125 H 06/27/19 10:59 124 H 06/27/19 10:58 99.7 F H 124 H 18 121/70 94 L 06/27/19 10:00 138 H 18 121/70 94 L 06/27/19 08:35 123 H 06/27/19 08:23 120 H 06/27/19 08:20 137 H 20 102/59 98 06/27/19 06:50 135 H 20 110/74 100 06/27/19 06:00 140 H 20 108/70 06/27/19 05:40 152 H 32 H 134/92 95 06/27/19 05:30 152 H 31 H 156/103 96 06/27/19 05:20 154 H 22 120/99 96 06/27/19 05:05 99.7 F H 161 H 32 H 110/81 99 Intake and Output 06/26/19 06/27/19 06/27/19 22:59 06:59 14:59 Other: Weight 46.266 kg PHYSICAL EXAMINATION: HEENT: Head is atraumatic, normocephalic. Pupils equal, round. Neck is supple. There is no elevated jugular venous pressure. HEART EXAMINATION: Heart sounds regular, S1 and S2 with a systolic murmur, tachycardia noted. CHEST EXAMINATION: Lungs reveal diminished air exchange with faint expiratory wheezes throughout. No chest wall tenderness is noted on palpation. ABDOMEN: Soft, nontender. Bowel sounds are heard. No organomegaly noted. EXTREMITIES: 2+ peripheral pulses with no evidence of peripheral edema and no calf tenderness noted. NEUROLOGIC patient is awake, alert and oriented x3. . Results 06/27/19 05:10 06/27/19 05:10 Cardiac Enzymes 06/27/19 06/27/19 Range/Units 05:10 05:10 AST 51 H (14-36) U/L Troponin I <0.012 (0.000-0.034) ng/mL Coagulation 06/27/19 Range/Units 05:10 PT 9.4 (9.0-12.0) sec APTT 23.0 (22.0-30.0) sec CBC 06/27/19 Range/Units 05:10 WBC 2.1 L (3.8-10.6) k/uL RBC 2.25 L (3.80-5.40) m/uL Hgb 8.4 L (11.4-16.0) gm/dL Hct 26.4 L (34.0-46.0) % Plt Count 76 L (150-450) k/uL Comprehensive Metabolic Panel 06/27/19 Range/Units 05:10 Sodium 140 (137-145) mmol/L Potassium 3.9 (3.5-5.1) mmol/L Chloride 91 L (98-107) mmol/L Carbon Dioxide 46 H* (22-30) mmol/L BUN 22 H (7-17) mg/dL Creatinine 0.63 (0.52-1.04) mg/dL Glucose 130 H (74-99) mg/dL Calcium 9.1 (8.4-10.2) mg/dL AST 51 H (14-36) U/L ALT 94 H (9-52) U/L Alkaline Phosphatase 224 H (38-126) U/L Total Protein 5.1 L (6.3-8.2) g/dL Albumin 2.9 L (3.5-5.0) g/dL Current Medications Generic Name Dose Route Start Last Admin Trade Name Freq PRN Reason Stop Dose Admin Hydrocodone Bitart/Acetaminophen 1 each 06/27/19 10:17 06/27/19 10:22 [place] 10 PO 1 each Q6H PRN Administration Pain Albuterol/Ipratropium 3 ml 06/27/19 07:33 06/27/19 10:58 Duoneb 0.5 Mg-3 Mg/3 Ml Soln INHALATION 3 ml RT-Q4H PRN Administration Shortness Of Breath Or Wheezing Insulin Aspart 0 unit 06/27/19 12:30 06/27/19 12:31 Novolog SQ 1 unit ACHS MEENU Administration Protocol Methylprednisolone Sodium Succinate 60 mg 06/27/19 12:00 06/27/19 12:31 Solu-Medrol IV 60 mg Q6HR MEENU Administration Metoprolol Tartrate 12.5 mg 06/27/19 21:00 Lopressor PO BID MEENU Miscellaneous Information 1 each 06/27/19 11:56 Potassium Per Protocol MISCELLANE DAILY PRN Per Protocol Protocol Intake and Output 06/26/19 06/27/19 06/27/19 22:59 06:59 14:59 Other: Weight 46.266 kg 06/27/19 05:10 06/27/19 05:10 EKG Interpretations (text) Sinus tachycardia with PACs Assessment and Plan Assessment: #1 acute COPD exacerbation #2 tachycardia with sinus mechanism, SVT noted in EMS notes however these strips are not available to us #3 hypertension #4 hyperlipidemia #5 suspected left apical pneumothorax Plan: From cardiology's perspective, worsening tachycardia likely related to acute exacerbation COPD and respiratory distress. We will resume home beta jenn. We will continue to follow the patient and provide further recommendations accordingly. [employer] note has been reviewed, I agree with a documented findings and plan of care. Patient was seen and examined.
[2019-06-27] MEDS ORDERED: ALBUTEROL NEBULIZED 2.5 MG/3 ML INHALATION PRN (13:53)
[2019-06-27] MEDS ORDERED: HYOSCYAMINE SULFATE 0.125 MG TAB PO PRN (13:53)
[2019-06-27] MEDS ORDERED: SUCRALFATE 1 GM TAB PO PRN (13:53)
[2019-06-27] MEDS ORDERED: [UNRECOGNIZED DRUG - OTHER] PO PRN (13:53)
[2019-06-27] MEDS ORDERED: GUAIFEN PO PRN (13:53)
[2019-06-27] MEDS ORDERED: NYSTATIN 100,000 UNIT/GM POWD 15 GM TOPICAL PRN (13:53)
[2019-06-27] MEDS ORDERED: DICYCLOMINE 10 MG CAP PO PRN (13:53)
[2019-06-27] MEDS ORDERED: PHENYLEPH PO PRN (13:53)
[2019-06-27] MEDS ORDERED: ALBUTEROL INHALER 60 PUFF/8 GM INHALER INHALATION PRN (13:53)
[2019-06-27] MEDS ORDERED: ACETAMINOPHN PO PRN (13:53)
[2019-06-27] MEDS ORDERED: busPIRone HCl 10 MG TAB PO PRN (13:53)
[2019-06-27] MEDS ORDERED: ONDANSETRON 4 MG TAB PO PRN (13:53)
--- NOTE | 2019-06-27 14:21 | P.CNPUL ---
History of Present Illness Consult date: 06/27/19 Requesting physician: Janina Arvizu Reason for consult: dyspnea Chief complaint: Dyspnea, confusion History of present illness: This is a 59-year-old white female patient of Dr. James, severe chronic obstructive pulmonary disease with baseline FEV1 of 36% of predicted, bolus emphysema with previous history of spontaneous pneumothoraces requiring chest tube placement. Patient has been evaluated for lung transplantation at [facility], that she was not a good candidate for lung reduction procedure. For now she is being investigated for lung transplantation. Other medical history includes Crohn's disease with history of ileostomy and a total colectomy, chronic hypoxemic respiratory failure patient usually wears 4 L of oxygen by nasal cannula, previous history of rest or a failure requiring mechanical ventilation. He had the recent hospitalizations in April and May of this year for COPD exacerbation, she was seen in follow-up by Dr. Mistry in the office on 06/26/2019, and patient was stable, without any active signs of exacerbation. On 06/18/2019 patient states she was hearing things that were not there, and apparently her noticed her breathing heavier. She states that there is no fever or chills, no increased cough or congestion. Patient took one breathing treatment prior to calling EMS, when the EMS responded patient's O2 saturation was in the mid 80s, she was noted to be dyspneic, tachycardic with a heart rate in the 160s and 180s. Patient was given a dose of adenosine, the heart rate did slow down briefly but then the tachycardia resumed at a rate of 150. EKG showed sinus tachycardia with a rate of 152, without acute ischemic changes. Chest x-ray was obtained showing suspicion for left apical pneumothorax, this was followed up with the CT chest showing advanced emphysematous changes greater in the right lung with scattered areas of scarring and/or atelectasis, with no significant change from most recent study no new infiltrate or consolidation. Patient was placed on BiPAP support, she was given extra dose of metoprolol, she was started on IV steroids, nebulized bronchodilators. We're seeing this patient for evaluation of increased shortness of breath. Lab work showed a white blood cell count of 2.1, hemoglobin of 8.4, serum sodium is 140, potassium is 3.9, chloride is 91, CO2 is 46, B1 is 22, creatinine 0.63, troponin was negative 1, proBNP was within normal limits at 199. Review of Systems All systems: negative Constitutional: Denies chills, Denies fever Eyes: denies blurred vision, denies pain Ears, nose, mouth and throat: Denies headache, Denies sore throat Cardiovascular: Denies chest pain, Denies shortness of breath Respiratory: Reports dyspnea, Reports home oxygen, Reports respiratory infections, Reports wheezing, Denies cough Gastrointestinal: Denies abdominal pain, Denies diarrhea, Denies nausea, Denies vomiting Genitourinary: Denies dysuria, Denies hematuria Musculoskeletal: Denies myalgias Integumentary: Denies pruritus, Denies rash Neurological: Reports change in mentation, Reports confusion, Denies numbness, Denies weakness Psychiatric: Denies anxiety, Denies depression Endocrine: Denies fatigue, Denies weight change Past Medical History Past Medical History: COPD, Eye Disorder, Fibromyalgia, GERD/Reflux, GI Bleed, Osteoarthritis (OA), Pneumonia, Syncope, Thyroid Disorder Additional Past Medical History / Comment(s): Pt states she recently had an appt on [facility] on 04/04/19 and she is going to be going on a lung transplant list after she completes her paperwork/prior requirments, crohn's colitis, ulcerative colitis, bowel obstructions, multiple bowel surgeries including total colect mine/ileostomy, severe COPD, chronic respiratory failure, home O2 3L/NC, bollous emphysema/ruptured bollous, R lung bleb R pneumothorax x3, L pneumothorax x1 and had bilateral pneumothorax 09/2018-acute respiratory failure/vented/cardiac arrest, tachycardia, myopathy, IVIG infusions, hiatal hernia, lower GI bleeds, arthritis in multiple joints, osteoporosis, chronic pain, seasonal allergies, bilateral glaucoma and has had bilateral eye surgery for retinal tears/holes, vitamin D and B12 deficiencies, hypothyroid, moderate protein calorie malnutrition. History of Any Multi-Drug Resistant Organisms: None Reported Past Surgical History: Breast Surgery, Cholecystectomy, Hernia Repair, Hysterectomy, Orthopedic Surgery Additional Past Surgical History / Comment(s): Multiple bowel surgeries including total colectomy/ileostomy, ileostomy moved/repaired, R salpingoophorectomy due to ectopic , total hysterectomy, LEEP procedure, laparoscopy for endometriosis, L breast lumpectomy-benign, r breast core bx-benign, R inguinal hernia repair, EGD/colonoscopies, right thoravent x2, arthroscopic knee surgery on the Left due to ACL and Meniscal tear, trach and peg tube-since removed. bone marrow biopsy and aspirate Past Anesthesia/Blood Transfusion Reactions: No Reported Reaction Additional Past Anesthesia/Blood Transfusion Reaction / Comment(s): Never recieved blood transfusion Smoking Status: Former smoker - Past Family History Mother Family Medical History: Cancer, COPD, Hypertension Additional Family Medical History / Comment(s): Mother at age 83 from COPD and had osteoarthritis and skin cancer. Father Family Medical History: Cancer, CVA/TIA, Dementia, Diabetes Mellitus Additional Family Medical History / Comment(s): Father is 92 yrs old. He has had several TIAs and a CVA Brother(s) Family Medical History: Cancer Additional Family Medical History / Comment(s): Patient had 5 brothers and one of them from melanoma at age 41. Sister(s) History Unknown: Yes Family Medical History: No Reported History Additional Family Medical History / Comment(s): Patient has one sister. Patient has no children Medications and Allergies Home Medications Medication Instructions Recorded Confirmed Type Latanoprost Ophth [Xalatan 0.005%] 1 drop BOTH EYES HS 05/21/17 06/27/19 History Dicyclomine [Bentyl] 10 mg PO TID PRN 07/24/18 06/27/19 History Budesonide 1 mg INHALATION RT-BID PRN 09/27/18 06/27/19 History Gabapentin [Neurontin] 300 mg PO TID 09/27/18 06/27/19 History HYDROcodone/APAP 10-325MG [[place] 1 tab PO Q4H PRN 09/27/18 06/27/19 History 10-325] Albuterol Nebulized [Ventolin 2.5 mg INHALATION RT-QID PRN #120 11/10/18 06/27/19 Rx Nebulized] nebu Metoprolol Tartrate [Lopressor] 50 mg PO TID #90 tab 11/10/18 06/27/19 Rx Aclidinium [place] [Tudorza 1 puff INHALATION RT-BID 11/29/18 06/27/19 History Pressair] Fluticasone/Vilanterol [Breo 1 puff INHALATION RT-DAILY 11/29/18 06/27/19 History Ellipta 200-25 Mcg INH] Guaifen/Phenyleph/Acetaminophn 10 ml PO Q6H PRN 11/29/18 06/27/19 History [Mucinex Sinus-Max Severe Liq] Mercaptopurine [Purinethol] 50 mg PO BID 11/29/18 06/27/19 History busPIRone HCl [Buspar] 10 mg PO BID PRN 11/29/18 06/27/19 History Adalimumab [Humira(Cf) Pen] 40 mg SQ ENGEL 12/28/18 06/27/19 History DULoxetine HCL [Cymbalta] 30 mg PO DAILY 12/28/18 06/27/19 History Hyoscyamine Sulfate [Levsin] 0.125 mg PO Q4H PRN #90 tab 02/05/19 06/27/19 Rx Albuterol Sulfate [Proair Hfa] 2 puff INHALATION RT-Q6H PRN 03/26/19 06/27/19 History Calcium Gummies 500mg 500 mg PO BID 03/26/19 06/27/19 History Diphenox-Atrop 2.5-0.025 mg 1 tab PO TID 03/26/19 06/27/19 History [Lomotil] Magnesium Oxide [Adan] 500 mg PO DAILY 03/26/19 06/27/19 History Melatonin 10 mg PO HS PRN 03/26/19 06/27/19 History Mirtazapine [Remeron] 7.5 mg PO HS@1900 03/26/19 06/27/19 History Mupirocin 2% Oint [Bactroban 2% 1 applic TOPICAL DAILY PRN 03/26/19 06/27/19 History Oint] Nystatin 100,000 Unit/ml Susp 5 ml PO QID PRN 03/26/19 06/27/19 History [Mycostatin Oral Susp] Ondansetron HCl [Zofran] 4 mg PO BID PRN 03/26/19 06/27/19 History Pantoprazole [Protonix] 40 mg PO QAM 03/26/19 06/27/19 History Lidocaine 5% Patch [Lidoderm 5% 1 patch TOPICAL DAILY 04/16/19 06/27/19 History Patch] Sucralfate [Carafate] 1 gm PO TID PRN 04/16/19 06/27/19 History Cholecalciferol (Vitamin D3) 2,000 unit PO DAILY 06/06/19 06/27/19 History [Vitamin D3] Cyanocobalamin [Vitamin B-12 1,000 mcg SQ Q30D 06/06/19 06/27/19 History Injection] Multivitamins, Thera [Multivitamin 1 tab PO BID 06/06/19 06/27/19 History (formulary)] ALPRAZolam [Xanax] 0.25 mg PO DAILY PRN 06/27/19 06/27/19 History Nystatin 100,000 Unit/gm Powd 1 applic TOPICAL DAILY PRN 06/27/19 06/27/19 History [Mycostatin Powder] Opium Tincture 2 ml PO QID PRN 06/27/19 06/27/19 History Allergies Allergy/AdvReac Type Severity Reaction Status Date / Time Iodinated Contrast- Oral and Allergy Anaphylaxis Verified 06/27/19 08:54 IV Dye pregabalin [From Lyrica] Allergy Unknown Verified 06/27/19 08:54 rofecoxib [From Vioxx] Allergy Unknown Verified 06/27/19 08:54 Sulfa (Sulfonamide Allergy Rash/Hives Verified 06/27/19 08:54 Antibiotics) aspirin AdvReac Internal Verified 06/27/19 08:54 Bleeding timolol [Timolol] AdvReac Nausea & Verified 06/27/19 08:54 Vomiting Physical Exam Vitals: Vital Signs Temp Pulse Pulse Resp BP BP Pulse Ox 06/27/19 12:00 97.7 F 132 H 18 91/67 97 06/27/19 11:10 125 H 06/27/19 10:59 124 H 06/27/19 10:58 99.7 F H 124 H 18 121/70 94 L 06/27/19 10:00 138 H 18 121/70 94 L 06/27/19 08:35 123 H 06/27/19 08:23 120 H 06/27/19 08:20 137 H 20 102/59 98 06/27/19 06:50 135 H 20 110/74 100 06/27/19 06:00 140 H 20 108/70 06/27/19 05:40 152 H 32 H 134/92 95 06/27/19 05:30 152 H 31 H 156/103 96 06/27/19 05:20 154 H 22 120/99 96 06/27/19 05:05 99.7 F H 161 H 32 H 110/81 99 Intake and Output 06/26/19 06/27/19 06/27/19 22:59 06:59 14:59 Intake Total 120 Balance 120 Intake: Oral 120 Other: Weight 46.266 kg GENERAL EXAM: Alert, pleasant, 51-year-old white female, currently on 4 L of oxygen with a pulse ox 97%, comfortable in no apparent distress. HEAD: Normocephalic/atraumatic. EYES: Normal reaction of pupils, equal size. Conjunctiva pink, sclera white. NOSE: Clear with pink turbinates. THROAT: No erythema or exudates. NECK: No masses, no JVD, no thyroid enlargement, no adenopathy. CHEST: No chest wall deformity. Symmetrical expansion. LUNGS: Equal air entry with diminished breath sounds bilaterally CVS: Regular rate and rhythm, normal S1 and S2, no gallops, no murmurs, no rubs ABDOMEN: Soft, nontender. No hepatosplenomegaly, normal bowel sounds, no guarding or rigidity. Ileostomy is in place EXTREMITIES: No clubbing, no edema, no cyanosis, 2+ pulses and upper and lower extremities. MUSCULOSKELETAL: Muscle strength and tone normal. SPINE: No scoliosis or deformity SKIN: No rashes CENTRAL NERVOUS SYSTEM: Alert and oriented -3. No focal deficits, tone is normal in all 4 extremities. PSYCHIATRIC: Alert and oriented -3. Appropriate affect. Intact judgment and insight. Results - Laboratory Findings CBC and BMP: 06/27/19 05:10 06/27/19 05:10 PT/INR, D-dimer PT 9.4 sec (9.0-12.0) 06/27/19 05:10 INR 0.9 (<1.2) 06/27/19 05:10 Abnormal lab findings: Abnormal Labs 06/27/19 06/27/19 06/27/19 05:10 05:10 11:57 WBC 2.1 L RBC 2.25 L Hgb 8.4 L Hct 26.4 L MCV 117.4 H MCH 37.5 H RDW 18.1 H Plt Count 76 L Neutrophils # (Manual) 1.00 L Macrocytosis Marked A Chloride 91 L Carbon Dioxide 46 H* BUN 22 H Glucose 130 H POC Glucose (mg/dL) 134 H AST 51 H ALT 94 H Alkaline Phosphatase 224 H Total Protein 5.1 L Albumin 2.9 L - Diagnostic Findings Chest x-ray: report reviewed, image reviewed CT scan - chest: report reviewed, image reviewed Additional studies: EKG reviewed Assessment and Plan Plan: Assessment: #1. Acute exacerbation of chronic obstructive pulmonary disease, chest x-ray and CT chest showed chronic changes, without evidence of acute pulmonary process #2. Acute on chronic hypoxic respiratory failure secondary to the above #3. Chronic hypercapnic respiratory failure related to advanced COPD #4. SVT, tachycardia, possibly related to nebulized treatments, and acute hypoxia, improved, troponin was negative, and ALLERGIES following #5. History of severe bullous emphysema, the patient has a large bulla occupying a large portion of the right lung field and it is not of chronic left upper lobe cavitation lesion. This has previously been seen on CT scans and chest x-rays, and appears to be stable in appearance. Patient has been referred for lung transplantation surgery at [facility] #6. Chronic hypoxemic respiratory failure related to advanced COPD/emphysema, with baseline FEV1 value of 36% of predicted, stage III COPD, oxygen and prednisone dependent #7. History of bilateral pneumothoraces requiring placement of bilateral chest tubes. #8. History of brief cardiac arrest following spontaneous pneumothoraces, requi ring intubation and placement on mechanical ventilation, recovered #9. Past episodes of pneumonia requiring intubation and mechanical ventilation, tracheostomy placement of PEG tube placement and patient had since been weaned off and decannulated #10. Chronic left upper lobe inflammatory opacity #11. Hypertension #12. Hyperlipidemia #13. Crohn's disease with history of bowel resection and creation of ileostomy #14. Hypothyroidism #15. Chronic anemia #16. Fibromyalgia #17. Anxiety/depression Plan: Continue nebulized bronchodilators, will continue IV steroids, BiPAP support as needed, patient is doing better, breathing easier, mentation has improved, she is maintaining stable O2 saturations on her home dose O2 right now, chest x-ray CT chest been reviewed showing chronic changes, patient has extensive bullous emphysema but no pneumothorax, no new infiltrates or consolidation. Tachycardia has improved, although the patient still remains tachycardic in the rate of 120, cardiology is following, or just cardiac meds. I performed a history & physical examination of the patient and discussed their management with my nurse practitioner, Carmella Jimenez. I reviewed the nurse practitioner's note and agree with the documented findings and plan of care. Lung sounds are positive for diminished breath sounds. The findings and the impression was discussed with the patient. I attest to the documentation by the nurse practitioner. Time with Patient: Greater than 30
[2019-06-27] MEDS: METOPROLOL TARTRATE 50 MG TAB PO SCH ×2 (16:18→22:31)
[2019-06-27] MEDS: DIPHENOX-ATROP 2.5-0.025 MG 1 EACH TAB PO SCH ×2 (16:18→22:31)
[2019-06-27] MEDS: GABAPENTIN 300 MG CAP PO SCH ×2 (16:18→22:31)
--- NOTE | 2019-06-27 16:41 | P.HPIM ---
History of Present Illness H&P Date: 06/27/19 Chief Complaint: Shortness of breath, decreased responsiveness This is a 59-year-old female patient of Dr. James and Dr. 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 Patient is currently on transplant list at [facility] where she was initially evaluated for embolectomy but surgery was canceled. Patient is on the lung transplant list but has to be off [place] for 6 months and is currently weaning off herself off [place] and is on 1-3 times a day. Patient was just discharged on 06/06/2006/18/2019 for similar problems with COPD exacerbation and was discharged to home on oral prednisone, and Zithromax. Patient is not on maintenance oral prednisone at home. She was last seen by Dr. Mistry yesterday, instilled tapering off her prednisone, and was doing okay until early this morning, patient was noticed to be more lethargic, patient stopped breathing or more apneic, however she responds with jerking motion by the , and was more delirious, patient was sent in by the she does not have any fever or chills, however she is febrile coming into the hospital. Patient denies melena and hematochezia, no leg swelling no neck pain no cramps. Patient has significant shortness of breath resting as well as on exertion ex ertion, she is hearing things that are not there, which is new to her. Patient also was noted to be tachypneic as well as tachycardic, and was noticed to have decreased mentation Emergency room, CAT scan of the chest was also done, that shows advanced emphysematous changes, and the right lung with scattered areas of scarring and/or atelectasis, no recent change from recent study, no new infiltrate or consolidation required EKG shows sinus tach heart rate of 150s troponin was 0.012, [employer] proBNP of 199, AST of 51 elevated ALT 94 elevated alkaline phosphatase 224, EKG on ER, sinus tach with PACs, she was given 1 dose of IV adenosine how I ever the heart rate went back up to 150s, 13 seconds after adenosine. She is on metoprolol 50 mg 3 times a day with missed dose morning of the ER visit Review of Systems Constitutional: Reports as per HPI, Denies anorexia, Denies chills, Denies chronic headaches, Denies chronic pain, Denies daytime sleepiness, Denies fatigue, Denies fever, Denies lethargy, Denies malaise, Denies night sweats, Denies poor appetite, Denies sweats, Denies weakness, Denies weight gain, Denies weight loss Ears, nose, mouth and throat: Reports as per HPI, Denies ant. neck pain, Denies bleeding gums, Denies dental pain, Denies dysphagia, Denies epistaxis, Denies headache, Denies hoarseness, Denies mouth pain, Denies nasal congestion, Denies nasal discharge, Denies neck fullness/pressure, Denies neck lump, Denies nose pain, Denies odynophagia, Denies post-nasal drip, Denies sinus pain, Denies sinus pressure, Denies swelling in mouth, Denies swelling in throat, Denies sore throat, Denies vertigo, Denies voice changes Cardiovascular: Reports as per HPI, Reports chest pain, Reports decreased exercise tolerance, Reports dyspnea on exertion, Reports irregular heart beat, Reports rapid heart beat, Reports shortness of breath Respiratory: Reports as per HPI Gastrointestinal: Reports as per HPI Genitourinary: Reports as per HPI Menstruation: Reports as per HPI, Denies amenorrhea, Denies amenorrhea on BC, Denies currently menstrual, Denies cycle < 21 days, Denies cycle > 35 days, Denies cycle variable, Denies menses 1-7 days, Denies menses 8 or > days, Denies menses variable, Denies period heavy, Denies period light, Denies period normal, Denies period spotting, Denies post hysterectomy, Denies postmenopausal, Denies premenarcheal Musculoskeletal: Reports as per HPI, Denies arm numbness/tingling, Denies atrophy, Denies fractures, Denies frequent falls, Denies gait dysfunction, Denies hot joints, Denies leg numbness/tingling, Denies limitation of motion, Denies loss of height, Denies low back pain, Denies morning stiffness, Denies muscle cramps, Denies muscle weakness, Denies myalgias, Denies neck pain, Denies neck stiffness, Denies prior amputations, Denies redness of joints, Denies shooting arm pain, Denies shooting leg pain Integumentary: Reports as per HPI, Denies acne, Denies boils, Denies brittle nails, Denies change in hair/nails, Denies color changes, Denies darkening of skin, Denies depigmentation, Denies dryness, Denies foot/leg ulcers, Denies growths, Denies hirsutism, Denies lesions, Denies onychomycosis, Denies pruritus, Denies rash, Denies sores, Denies striae, Denies unusual bruising, Den ies wounds Neurological: Reports as per HPI, Reports tremors, Reports weakness, Denies aphasia, Denies ataxia, Denies balance difficulties, Denies burning pain, Denies change in mentation, Denies change in smell/taste, Denies change in speech, Denies confusion, Denies convulsions, Denies double vision, Denies gait dysfunction, Denies head injury, Denies headaches, Denies hearing difficulties, Denies lack of coordination, Denies loss of vision, Denies memory loss, Denies migraines, Denies motor disturbance, Denies numbness, Denies paralysis, Denies paresthesias, Denies seizures, Denies sensory deficit, Denies spasticity, Denies syncope, Denies tic, Denies tingling, Denies transient paralysis, Denies vertigo, Denies visual changes Psychiatric: Reports as per HPI Endocrine: Reports as per HPI Hematologic/Lymphatic: Reports as per HPI, Denies easy bleeding, Denies easy bruising, Denies lymphadenopathy, Denies lymphedema, Denies thrombophilia Allergic/Immunologic: Reports as per HPI, Denies allergic rhinitis, Denies anaphylaxis, Denies angioedema, Denies gluten intolerance, Denies persistent infections, Denies seasonal allergies, Denies urticaria, Denies wheezing Past Medical History Past Medical History: COPD, Eye Disorder, Fibromyalgia, GERD/Reflux, GI Bleed, Osteoarthritis (OA), Pneumonia, Syncope, Thyroid Disorder Additional Past Medical History / Comment(s): Pt states she recently had an appt on [facility] on 04/04/19 and she is going to be going on a lung transplant list after she completes her paperwork/prior requirments, crohn's colitis, ulcerative colitis, bowel obstructions, multiple bowel surgeries including total colectomy/ileostomy, severe COPD, chronic respiratory failure, home O2 3L/NC, bollous emphysema/ruptured bollous, R lung bleb R pneumothorax x3, L pneumothorax x1 and had bilateral pneumothorax 09/2018-acute respiratory failure/vented/cardiac arrest, tachycardia, myopathy, IVIG infusions, hiatal hernia, lower GI bleeds, arthritis in multiple joints, osteoporosis, chronic pain, seasonal allergies, bilateral glaucoma and has had bilateral eye surgery for retinal tears/holes, vitamin D and B12 deficiencies, hypothyroid, moderate protein calorie malnutrition. History of Any Multi-Drug Resistant Organisms: None Reported Past Surgical History: Breast Surgery, Cholecystectomy, Hernia Repair, Hysterectomy, Orthopedic Surgery Additional Past Surgical History / Comment(s): Multiple bowel surgeries including total colectomy/ileostomy, ileostomy moved/repaired, R salpingoophorectomy due to ectopic , total hysterectomy, LEEP procedure, laparoscopy for endometriosis, L breast lumpectomy-benign, r breast core bx-benign, R inguinal hernia repair, EGD/colonoscopies, right thoravent x2, arthroscopic knee surgery on the Left due to ACL and Meniscal tear, trach and peg tube-since removed. bone marrow biopsy and aspirate Past Anesthesia/Blood Transfusion Reactions: No Reported Reaction Additional Past Anesthesia/Blood Transfusion Reaction / Comment(s): Never recieved blood transfusion Smoking Status: Former smoker - Past Family History Mother Family Medical History: Cancer, COPD, Hypertension Additional Family Medical History / Comment(s): Mother at age 83 from COPD and had osteoarthritis and skin cancer. Father Family Medical History: Cancer, CVA/TIA, Dementia, Diabetes Mellitus Additional Family Medical History / Comment(s): Father is 92 yrs old. He has had several TIAs and a CVA Brother(s) Family Medical History: Cancer Additional Family Medical History / Comment(s): Patient had 5 brothers and one of them from melanoma at age 41. Sister(s) History Unknown: Yes Family Medical History: No Reported History Additional Family Medical History / Comment(s): Patient has one sister. Patient has no children Medications and Allergies Home Medications Medication Instructions Recorded Confirmed Type Latanoprost Ophth [Xalatan 0.005%] 1 drop BOTH EYES HS 05/21/17 06/27/19 History Dicyclomine [Bentyl] 10 mg PO TID PRN 07/24/18 06/27/19 History Budesonide 1 mg INHALATION RT-BID PRN 09/27/18 06/27/19 History Gabapentin [Neurontin] 300 mg PO TID 09/27/18 06/27/19 History HYDROcodone/APAP 10-325MG [[place] 1 tab PO Q4H PRN 09/27/18 06/27/19 History 10-325] Albuterol Nebulized [Ventolin 2.5 mg INHALATION RT-QID PRN #120 11/10/18 06/27/19 Rx Nebulized] nebu Metoprolol Tartrate [Lopressor] 50 mg PO TID #90 tab 11/10/18 06/27/19 Rx Aclidinium Fried[place] [Tudorza 1 puff INHALATION RT-BID 11/29/18 06/27/19 History Pressair] Fluticasone/Vilanterol [Breo 1 puff INHALATION RT-DAILY 11/29/18 06/27/19 History Ellipta 200-25 Mcg INH] Guaifen/Phenyleph/Acetaminophn 10 ml PO Q6H PRN 11/29/18 06/27/19 History [Mucinex Sinus-Max Severe Liq] Mercaptopurine [Purinethol] 50 mg PO BID 11/29/18 06/27/19 History busPIRone HCl [Buspar] 10 mg PO BID PRN 11/29/18 06/27/19 History Adalimumab [Humira(Cf) Pen] 40 mg SQ ENGEL 12/28/18 06/27/19 History DULoxetine HCL [Cymbalta] 30 mg PO DAILY 12/28/18 06/27/19 History Hyoscyamine Sulfate [Levsin] 0.125 mg PO Q4H PRN #90 tab 02/05/19 06/27/19 Rx Albuterol Sulfate [Proair Hfa] 2 puff INHALATION RT-Q6H PRN 03/26/19 06/27/19 History Calcium Gummies 500mg 500 mg PO BID 03/26/19 06/27/19 History Diphenox-Atrop 2.5-0.025 mg 1 tab PO TID 03/26/19 06/27/19 History [Lomotil] Magnesium Oxide [Adan] 500 mg PO DAILY 03/26/19 06/27/19 History Melatonin 10 mg PO HS PRN 03/26/19 06/27/19 History Mirtazapine [Remeron] 7.5 mg PO HS@1900 03/26/19 06/27/19 History Mupirocin 2% Oint [Bactroban 2% 1 applic TOPICAL DAILY PRN 03/26/19 06/27/19 History Oint] Nystatin 100,000 Unit/ml Susp 5 ml PO QID PRN 03/26/19 06/27/19 History [Mycostatin Oral Susp] Ondansetron HCl [Zofran] 4 mg PO BID PRN 03/26/19 06/27/19 History Pantoprazole [Protonix] 40 mg PO QAM 03/26/19 06/27/19 History Lidocaine 5% Patch [Lidoderm 5% 1 patch TOPICAL DAILY 04/16/19 06/27/19 History Patch] Sucralfate [Carafate] 1 gm PO TID PRN 04/16/19 06/27/19 History Cholecalciferol (Vitamin D3) 2,000 unit PO DAILY 06/06/19 06/27/19 History [Vitamin D3] Cyanocobalamin [Vitamin B-12 1,000 mcg SQ Q30D 06/06/19 06/27/19 History Injection] Multivitamins, Thera [Multivitamin 1 tab PO BID 06/06/19 06/27/19 History (formulary)] ALPRAZolam [Xanax] 0.25 mg PO DAILY PRN 06/27/19 06/27/19 History Nystatin 100,000 Unit/gm Powd 1 applic TOPICAL DAILY PRN 06/27/19 06/27/19 History [Mycostatin Powder] Opium Tincture 2 ml PO QID PRN 06/27/19 06/27/19 History Allergies Allergy/AdvReac Type Severity Reaction Status Date / Time Iodinated Contrast- Oral and Allergy Anaphylaxis Verified 06/27/19 08:54 IV Dye pregabalin [From Lyrica] Allergy Unknown Verified 06/27/19 08:54 rofecoxib [From Vioxx] Allergy Unknown Verified 06/27/19 08:54 Sulfa (Sulfonamide Allergy Rash/Hives Verified 06/27/19 08:54 Antibiotics) aspirin AdvReac Internal Verified 06/27/19 08:54 Bleeding timolol [Timolol] AdvReac Nausea & Verified 06/27/19 08:54 Vomiting Physical Exam Vitals: Vital Signs Temp Pulse Pulse Resp BP BP Pulse Ox 06/27/19 15:22 98.3 F 127 H 18 122/69 99 06/27/19 12:00 97.7 F 132 H 18 91/67 97 06/27/19 11:10 125 H 06/27/19 10:59 124 H 06/27/19 10:58 99.7 F H 124 H 18 121/70 94 L 06/27/19 10:00 138 H 18 121/70 94 L 06/27/19 08:35 123 H 06/27/19 08:23 120 H 06/27/19 08:20 137 H 20 102/59 98 06/27/19 06:50 135 H 20 110/74 100 06/27/19 06:00 140 H 20 108/70 06/27/19 05:40 152 H 32 H 134/92 95 06/27/19 05:30 152 H 31 H 156/103 96 06/27/19 05:20 154 H 22 120/99 96 06/27/19 05:05 99.7 F H 161 H 32 H 110/81 99 Intake and Output 06/27/19 06/27/19 06/27/19 06:59 14:59 22:59 Intake Total 120 Balance 120 Intake: Oral 120 Other: # Voids 1 Weight 46.266 kg - Constitutional General appearance: cooperative, no acute distress - EENT Eyes: anicteric sclerae, PERRLA, dentition normal, normal appearance ENT: NA/AT, normal oropharynx - Neck Neck: normal ROM Thyroid: bilateral: normal size, negative: enlarged, firm - Respiratory Respiratory: bilateral: CTA, negative: diminished, dullness, rales - Cardiovascular Rhythm: regular Heart sounds: normal: S1, S2 Abnormal Heart Sounds: no systolic murmur, no diastolic murmur, no rub, no S3 Gallop, no S4 Gallop, no click, no other - Gastrointestinal General gastrointestinal: normal bowel sounds, soft - Integumentary Integumentary: decreased turgor, normal - Neurologic Neurologic: CNII-XII intact - Musculoskeletal Musculoskeletal: gait normal, generalized weakness, strength equal bilaterally - Psychiatric Psychiatric: A&O x's 3, appropriate affect, intact judgment & insight Results CBC & Chem 7: 06/27/19 05:10 06/27/19 05:10 Labs: Abnormal Lab Results - Last 24 Hours (Table) 06/27/19 06/27/19 06/27/19 Range/Units 05:10 05:10 11:57 WBC 2.1 L (3.8-10.6) k/uL RBC 2.25 L (3.80-5.40) m/uL Hgb 8.4 L (11.4-16.0) gm/dL Hct 26.4 L (34.0-46.0) % MCV 117.4 H (80.0-100.0) fL MCH 37.5 H (25.0-35.0) pg RDW 18.1 H (11.5-15.5) % Plt Count 76 L (150-450) k/uL Neutrophils # (Manual) 1.00 L (1.3-7.7) k/uL Macrocytosis Marked A Chloride 91 L (98-107) mmol/L Carbon Dioxide 46 H* (22-30) mmol/L BUN 22 H (7-17) mg/dL Glucose 130 H (74-99) mg/dL POC Glucose (mg/dL) 134 H (75-99) mg/dL AST 51 H (14-36) U/L ALT 94 H (9-52) U/L Alkaline Phosphatase 224 H (38-126) U/L Total Protein 5.1 L (6.3-8.2) g/dL Albumin 2.9 L (3.5-5.0) g/dL Laboratory Results WBC 2.1 k/uL (3.8-10.6) L 06/27/19 05:10 RBC 2.25 m/uL (3.80-5.40) L 06/27/19 05:10 Hgb 8.4 gm/dL (11.4-16.0) L 06/27/19 05:10 Hct 26.4 % (34.0-46.0) L 06/27/19 05:10 MCV 117.4 fL (80.0-100.0) H 06/27/19 05:10 MCH 37.5 pg (25.0-35.0) H 06/27/19 05:10 MCHC 32.0 g/dL (31.0-37.0) 06/27/19 05:10 RDW 18.1 % (11.5-15.5) H 06/27/19 05:10 Plt Count 76 k/uL (150-450) L 06/27/19 05:10 Neutrophils % (Manual) 44 % 06/27/19 05:10 Band Neutrophils % 4 % 06/27/19 05:10 Lymphocytes % (Manual) 48 % 06/27/19 05:10 Monocytes % (Manual) 3 % 06/27/19 05:10 Eosinophils % (Manual) 1 % 06/27/19 05:10 Neutrophils # (Manual) 1.00 k/uL (1.3-7.7) L 06/27/19 05:10 Lymphocytes # (Manual) 1.01 k/uL (1.0-4.8) 06/27/19 05:10 Monocytes # (Manual) 0.06 k/uL (0-1.0) 06/27/19 05:10 Eosinophils # (Manual) 0.02 k/uL (0-0.7) 06/27/19 05:10 Nucleated RBCs 0 /100 WBC (0-0) 06/27/19 05:10 Manual Slide Review Performed 06/27/19 05:10 Hypochromasia Moderate 06/27/19 05:10 Poikilocytosis Slight 06/27/19 05:10 Anisocytosis Slight 06/27/19 05:10 Macrocytosis Marked A 06/27/19 05:10 PT 9.4 sec (9.0-12.0) 06/27/19 05:10 INR 0.9 (<1.2) 06/27/19 05:10 APTT 23.0 sec (22.0-30.0) 06/27/19 05:10 Sodium 140 mmol/L (137-145) 06/27/19 05:10 Potassium 3.9 mmol/L (3.5-5.1) 06/27/19 05:10 Chloride 91 mmol/L (98-107) L 06/27/19 05:10 Carbon Dioxide 46 mmol/L (22-30) H* 06/27/19 05:10 Anion Gap 3 mmol/L 06/27/19 05:10 BUN 22 mg/dL (7-17) H 06/27/19 05:10 Creatinine 0.63 mg/dL (0.52-1.04) 06/27/19 05:10 Est GFR (CKD-EPI)AfAm >90 (>60 ml/min/1.73 sqM) 06/27/19 05:10 Est GFR (CKD-EPI)NonAf >90 (>60 ml/min/1.73 sqM) 06/27/19 05:10 Glucose 130 mg/dL (74-99) H 06/27/19 05:10 POC Glucose (mg/dL) 134 mg/dL (75-99) H 06/27/19 11:57 POC Glu Mixer Blender Westley Salazar 06/27/19 11:57 Calcium 9.1 mg/dL (8.4-10.2) 06/27/19 05:10 Magnesium 1.8 mg/dL (1.6-2.3) 06/27/19 05:10 Total Bilirubin 1.3 mg/dL (0.2-1.3) 06/27/19 05:10 AST 51 U/L (14-36) H 06/27/19 05:10 ALT 94 U/L (9-52) H 06/27/19 05:10 Alkaline Phosphatase 224 U/L (38-126) H 06/27/19 05:10 Troponin I <0.012 ng/mL (0.000-0.034) 06/27/19 11:52 NT-Pro-B Natriuret Pep 199 pg/mL 06/27/19 05:10 Total Protein 5.1 g/dL (6.3-8.2) L 06/27/19 05:10 Albumin 2.9 g/dL (3.5-5.0) L 06/27/19 05:10 Thrombosis Risk Factor Assmnt - DVT/VTE Prophylaxis DVT/VTE Prophylaxis: Pharmacologic Prophylaxis ordered - Choose All That Apply Any of the Below Risk Factors Present?: Yes Each Factor Represents 1 point: Abnormal pulmonary function (COPD), Age 41-60 years, Hx of IBD, Serious lung disease incl. pneumonia (< 1month) Other Risk Factors: No Other congenital or acquired thrombophilia - If yes, enter type in comment: No Thrombosis Risk Factor Assessment Total Risk Factor Score: 4 Thrombosis Risk Factor Assessment Level: Moderate Risk Assessment and Plan Plan: 1 acute respiratory failure with hypercarbic respiratory failure, and delirium, with transient low-grade temp looks like patient received BiPAP treatments currentlybipap on standby off BiPAP treatments patient is at risk for spontaneous pneumothorax,, O2, IV steroids, proalcitonin levels lactic acid levels, IV fluids, proBNP is normal, consult with Dr. Meza 2 Acute exacerbation of her underlying advanced end-stage COPD. patient is a candidate for lung transplant but has to be off narcotics which she is unable to. Pulmonary medicine consult appreciated. Initiated on DuoNeb treatments, Symbicort, Solu-Medrol, CT suggests a severe emphysema with massive lung bullae seen in the right upper lobe tracheal bronchomalacia. Patient is at high risk of nosocomial infections bilateral currently is on stable to be discharged home will switch patient to IV steroids and continue the care unless patient is stable to be discharged she is a poor prognosis and needs evaluation for hospice but patient is currently refusing 3. Pancytopenia, probably related to prednisone dose, and chronic use of DMARD, patient is on Humira every Monday, which is on hold, until pneumonia is completely ruled out await pro-calcitonin levels globulin levels AG and a will be obtained, 3 Advanced end-stage COPD with large bulla on the right upper lobe multiple ruptured bulla and spontaneous pneumothorax in the past, stable. Patient is working with with [facility] transplant team. 4 Chronic hypoxemic and hypercapneic respiratory failure requiring mechanical ventilation in the past and Trach which has since removed. Patient follows with Dr. Mistry on a regular basis. Patient has home O2 at 4 L nasal cannula. 5 History of Crohn's colitis status post subtotal colectomy and ostomy. Patient is to continue Humira, mercaptopurine, Levsin. currently stable. 6 Moderate protein calorie malnutrition. Continue with protein supplement. 7 H/O critical illness myopathy post IVIG infusion. 7. Generalized anxiety disorder. Continue BuSpar to 10 mg orally twice every day and Cymbalta 30 mg daily. 8. Fibromyalgia with bilateral neuropathy. Continue with Gabapentin 300 mg orally tid. 9. Sinus tachycardia. Continue Metoprolol 50 mg orally tid. 10. Vitamin D deficiency. 11. B12 deficiency. Continue with B12 1000 mcg sc q month. 12. Glaucoma. Continue Xalatan. 13. Hypomagnesemia. Continue with magnesium oxide. 14. Chronic pain on [place] 10 mg every 8 hours. Patient states she needs to be weaned off this for 6 months prior to transplant. [place] 10 mg every 6 hours as needed. Patient states that she cannot go past abstaining 3 days of her [place], patient goes into withdrawal, she still has to see pain management for opiate wean 15. DVT prophylaxis. continue Lovenox 40 mg subcutaneously every day. 16. GI prophylaxis. Continue Carafate. 17. Elevated liver function tests. Recheck in the morning. Acute hepatitis panel was negative last admission and liver ultrasound were negative repeat CMP tomorrow CODE STATUS: Full code. Discussion on patient's CODE STATUS but patient currently wants to be full code and understands that she has poor prognosis difficulty recovering while she gets intubated but she still would like to be reintubated regardless. Discharge plan: Patient may need 1 or 2 inpatient nights
[2019-06-27] MEDS: SODIUM CHLORIDE 0.9% 1,000 ML IV SCH ×2 (16:43→23:07)
[2019-06-27 16:45] LABS: Glucose,Whole Blood 210 mg/dL (75-99)
[2019-06-27] MEDS ORDERED: LEVOFLOXACIN 500MG-D5W PMX 500 MG in DEXTROSE/WATER 1 100ML.BAG IVPB SCH (18:00)
[2019-06-27] MEDS: MIRTAZAPINE 15 MG TAB PO SCH (18:31)
[2019-06-27 19:06] LABS: Appearance,Urine Clear (Clear); Bilirubin,Urine Negative (Negative); Blood,Urine Small (Negative); Color,Urine Yellow; Glucose,Urine (UA) Trace (Negative); Hyaline Casts,Urine 1 /lpf (0-2); Ketones,Urine 2+ (Negative); Leukocyte Esterase,Urine Negative (Negative); Mucus,Urine Rare /hpf; Nitrite,Urine Negative (Negative); PH, Urine 6.5 (5.0-8.0); Protein,Urine 1+ (Negative); RBC,Urine 4 /hpf (0-5); Specific Gravity,Urine 1.019 (1.001-1.035); Squamous Epithelial Cell,Urine <1 /hpf (0-4); Urobilinogen,Urine <2.0 mg/dL (<2.0)
[2019-06-27] MEDS: BUDESONIDE 1 MG/2 ML NEBU INHALATION PRN (20:01)
[2019-06-27] MEDS: HYDROcodone/APAP 10-325MG 1 EACH TAB PO PRN (20:21)
[2019-06-27] MEDS: MERCAPTOPURINE 50 MG TAB PO SCH (20:21)
[2019-06-27] MEDS: CALCIUM CARBONATE 500 MG CHEWABLE PO SCH (20:21)
[2019-06-27] MEDS: MULTIVITAMINS, THERA 1 EACH TAB PO SCH (20:21)
[2019-06-27] MEDS: LATANOPROST 0.005% OPHTH DROPS 2.5 ML BTL BOTH EYES SCH (20:22)
[2019-06-27 20:29] LABS: Glucose,Whole Blood 234 mg/dL (75-99)
[2019-06-27] MEDS ORDERED: METOPROLOL TARTRATE 12.5 MG TAB PO SCH (21:00)
[2019-06-27] MEDS: MELATONIN 5 MG TABLET PO PRN (23:40)
[2019-06-28] MEDS: HYDROcodone/APAP 10-325MG 1 EACH TAB PO PRN ×4 (02:19→21:27)
[2019-06-28 06:15] LABS: Anisocytosis Slight; Basophils % (A) 0 %; Eosinophils % (A) 0 %; HCT 20.1 % (34.0-46.0); Hypochromasia Moderate; Lymphocytes # (A) 0.2 k/uL (1.0-4.8); Lymphocytes % (A) 9 %; MCH 38.4 pg (25.0-35.0); MCHC 31.6 g/dL (31.0-37.0); Mean Platelet Volume 9.5; Monocytes # (A) 0.1 k/uL (0-1.0); Monocytes % (A) 3 %; Neutrophils # (A) 2.4 k/uL (1.3-7.7); Neutrophils % (A) 88 %; Platelet Count 35 k/uL (150-450); Poikilocytosis Slight; RBC 1.66 m/uL (3.80-5.40); RDW 17.6 % (11.5-15.5); WBC 2.7 k/uL (3.8-10.6)
[2019-06-28 06:17] LABS: Glucose,Whole Blood 362 mg/dL (75-99)
[2019-06-28 06:19] LABS: Macrocytosis Marked
[2019-06-28 06:21] LABS: African American GFR (CKD) >90 (>60 ml/min/1.73 sqM); Anion Gap 2 mmol/L; Blood Urea Nitrogen 24 mg/dL (7-17); Calcium 8.4 mg/dL (8.4-10.2); Carbon Dioxide 39 mmol/L (22-30); Chloride 97 mmol/L (98-107); Glucose 319 mg/dL (74-99); Potassium 5.9 mmol/L (3.5-5.1); Sodium 138 mmol/L (137-145)
[2019-06-28 06:22] LABS: HGB 6.4 gm/dL (11.4-16.0); MCV 121.4 fL (80.0-100.0)
[2019-06-28] MEDS: INSULIN ASPART (NovoLOG) 100 UNIT/ML VIAL SQ SCH ×4 (07:03→21:26)
[2019-06-28] MEDS: methylPREDNISolone SOD SUCCI 125 MG/2 ML VIAL IV SCH ×4 (07:03→23:37)
[2019-06-28] MEDS: IPRATROPIUM-ALBUTEROL 3 ML NEB INHALATION PRN ×3 (07:03→20:48)
[2019-06-28] MEDS: BUDESONIDE 1 MG/2 ML NEBU INHALATION PRN (07:03)
[2019-06-28] MEDS: GABAPENTIN 300 MG CAP PO SCH ×3 (09:22→21:26)
[2019-06-28] MEDS: LIDOCAINE 5% PATCH TOPICAL SCH (09:22)
[2019-06-28] MEDS: MULTIVITAMINS, THERA 1 EACH TAB PO SCH ×2 (09:23→21:26)
[2019-06-28] MEDS: CALCIUM CARBONATE 500 MG CHEWABLE PO SCH ×2 (09:23→21:26)
[2019-06-28] MEDS: DULoxetine HCL 30 MG CAPSULE.DR PO SCH (09:23)
[2019-06-28] MEDS: PANTOPRAZOLE 40 MG TABLET PO SCH (09:23)
[2019-06-28] MEDS: METOPROLOL TARTRATE 50 MG TAB PO SCH ×3 (09:23→21:26)
[2019-06-28] MEDS: DIPHENOX-ATROP 2.5-0.025 MG 1 EACH TAB PO SCH ×3 (09:24→21:26)
[2019-06-28] MEDS: CHOLECALCIFEROL 1,000 UNIT TAB PO SCH (09:25)
[2019-06-28] MEDS: MAGNESIUM OXIDE 400 MG TAB PO SCH (09:25)
[2019-06-28] MEDS: SODIUM CHLORIDE 0.9% 1,000 ML IV SCH ×2 (09:34→16:45)
[2019-06-28] MEDS: MERCAPTOPURINE 50 MG TAB PO SCH ×2 (09:37→21:26)
[2019-06-28 11:18] LABS: Immunoglobulin M 69.2 mg/dL (40.0-280.0)
[2019-06-28 11:57] LABS: Glucose,Whole Blood 311 mg/dL (75-99)
[2019-06-28] MEDS: INSULIN NPH 300 UNIT/3 ML VIAL SQ SCH ×2 (12:45→21:25)
--- NOTE | 2019-06-28 14:31 | PN ---
PROGRESS NOTE Mrs. Garg is 59-year-old female with history of severe chronic obstructive pulmonary disease, who presented with exacerbation of COPD. She had tachycardia that resolved. She is oxygen dependent. She is feeling better at this time. She denies symptoms of chest pain. She denies any dizziness. She continues to be quite dyspneic, but her rate is controlled. She has been evaluated by Dr. Meza regarding the exacerbation of COPD. PHYSICAL EXAMINATION: Blood pressure 130/80 with a heart rate in the 90s. LUNGS: With severe decrease in the air exchange bilaterally. No wheezes appreciated. HEART: Regular rate and rhythm, S1, S2. No S3. No rub. ABDOMEN: Soft, nontender. EXTREMITIES: No edema. IMPRESSION: 1. Acute exacerbation of chronic obstructive lung disease. 2. History of atrial arrhythmia with tachycardia related to her chronic obstructive lung disease. 3. Severe bullous emphysema. 4. Chronic hypoxemia. 5. History of hypertension. 6. Hyperlipidemia. RECOMMENDATION: From the cardiac standpoint, she is stable. The tachycardia is related to her primary lung issue. At this time, no further cardiac evaluation is needed. Connie see him on as-needed basis. Please feel free to call us for any question. Thank you for the study. MMODL / IJN: [id number] /
--- NOTE | 2019-06-28 15:02 | PN ---
PROGRESS NOTE DATE OF SERVICE: 06/28/2019 This is a 59-year-old female with history of end-stage COPD. She has significant bullous emphysema particularly in the right lung. She was admitted to the hospital with a diagnosis of COPD exacerbation and chronic hypoxemic respiratory failure without an acute pulmonary process such as pneumonia. Again, she does have chronic hypoxemic and hypercapnic respiratory failure. In addition, she has a history of tachycardia/SVT, bullous emphysema, bilateral pneumothoraces, history of cardiac arrest, pneumonia, hypertension, hyperlipidemia, Crohn's disease, hypothyroidism, chronic anemia, fibromyalgia, anxiety/depression. Currently, the patient is doing a bit better. She had been evaluated previously at [facility] for both the bullectomy and also for lung transplantation. Lung transplantation was really not a viable option given the patient's poor nutritional status, and her ongoing use of narcotics. Anyway, the patient does feel a bit better. Much less short of breath. She is still very congested and wheezy, particularly when she exerts herself. Vital signs are noted. Temperature 98, heart rate 93, respiratory rate 20, blood pressure 130/85 mean is 100, saturations are in the low 90s. Appears in no acute distress. HEENT: Examination is grossly unremarkable. Neck is supple. Full range of motion. No adenopathy. CARDIOVASCULAR: Examination reveals regular rhythm and rate. Heart rate in the low 90s. S1, S2 normal. LUNGS: Reveal scattered rhonchi and wheezes. Breath sounds are diminished. No crackles. There is prolongation on forced maneuver. ABDOMEN: Soft, bowel sounds are heard. EXTREMITIES: Intact. No cyanosis, clubbing, or edema. SKIN: Without rash. NEUROLOGIC: Examination is brief but nonfocal. LABS: Reviewed. White count 2.7, hemoglobin 6.4, hematocrit 20.1, platelet count is 35,000. PT, INR, PTT all normal. Sodium 138, potassium 5.9, chloride 97, CO2 of 39., BUN and creatinine were 24 and 0.71. Lactic acid is down from 7 to 3.6. The rest of the labs look okay. Urine is essentially negative. A chest CT is done. It shows advanced emphysematous and bullous changes particularly in the right lung with scattered areas of scarring and atelectasis. No new infiltrates are noted. Chest x-rays reviewed. MEDICATIONS: Reviewed. ASSESSMENT: 1. Acute exacerbation of chronic obstructive pulmonary disease in a patient with acute on chronic hypoxemic hypercapnic respiratory failure and severe bullous emphysema. 2. History of SVT, potentially aided by breathing treatments. 3. Previously evaluated for bullous disease at [facility] where they declined to do a bullectomy. 4. Recent evaluation at [facility] for lung transplantation, but with holding that would be her chronic use of narcotics. 5. History of bilateral pneumothoraces. 6. Brief history of cardiac arrest requiring intubation and mechanical ventilation. 7. Chronic left upper lobe inflammatory disease. 8. Hypertension. 9. Hyperlipidemia. 10.Crohn's disease, status post bowel resection. 11.Hypothyroidism. 12.Chronic anemia. 13.Fibromyalgia. 14.Anxiety/depression. PLAN: Her overall prognosis is very poor. The patient is on her usual medications. Will continue to follow. I doubt she ever makes it toward lung transplantation. We did offer her the option though. She cannot seem to get off the narcotics. Additional recommendations and suggestions are forthcoming. MMODL / IJN: [id number] /
--- NOTE | 2019-06-28 16:28 | P.PN ---
Subjective Progress Note Date: 06/28/19 This is a 59-year-old female patient of Dr. James and Dr. 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 Patient is currently on transplant list at [facility] where she was initially evaluated for embolectomy but surgery was canceled. Patient is on the lung transplant list but has to be off Hobson for 6 months and is currently weaning off herself off Hobson and is on 1-3 times a day. Patient was just discharged on 06/06/2006/18/2019 for similar problems with COPD exa cerbation and was discharged to home on oral prednisone, and Zithromax. Patient is not on maintenance oral prednisone at home. She was last seen by Dr. Mistry yesterday, instilled tapering off her prednisone, and was doing okay until early this morning, patient was noticed to be more lethargic, patient stopped breathing or more apneic, however she responds with jerking motion by the , and was more delirious, patient was sent in by the she does not have any fever or chills, however she is febrile coming into the hospital. Patient denies melena and hematochezia, no leg swelling no neck pain no cramps. Patient has significant shortness of breath resting as well as on exertion exertion, she is hearing things that are not there, which is new to her. Patient also was noted to be tachypneic as well as tachycardic, and was noticed to have decreased mentation Emergency room, CAT scan of the chest was also done, that shows advanced emphysematous changes, and the right lung with scattered areas of scarring and/or atelectasis, no recent change from recent study, no new infiltrate or consolidation required EKG shows sinus tach heart rate of 150s troponin was 0.012, [employer] proBNP of 199, AST of 51 elevated ALT 94 elevated alkaline phosphatase 224, EKG on ER, sinus tach with PACs, she was given 1 dose of IV adenosine how I ever the heart rate went back up to 150s, 13 seconds after adenosine. She is on metoprolol 50 mg 3 times a day with missed dose morning of the ER visit 06/28: Patient had episodes of decreased blood pressure and cold sweats. Antibiotics were started improved procalcitonin 3.34. She states she's had more watery stools from ileostomy. Stool to be sent for C. difficile toxin came back negative. Stool for occult blood was positive. Lactic acid was elevated patient has been fluid resuscitated. She is being transfused 1 unit of packed RBCs for hemoglobin of 6.4. Blood sugars are elevated and NPH twice daily added. Cardiology has signed off and will follow on an as-needed basis. Rate is mostly running in the 90s. She has been resumed on her home dose of Lopressor. Patient is followed by Dr. Meza. Objective - Vital Signs Vital signs: Vital Signs Temp 98.3 F 06/28/19 10:10 Pulse 121 H 06/28/19 10:10 Resp 20 06/28/19 10:10 BP 125/85 06/28/19 10:10 Pulse Ox 98 06/28/19 09:40 Intake & Output 06/27/19 06/28/19 06/28/19 18:59 06:59 18:59 Intake Total 120 2275 100 Balance 120 2275 100 Weight 49.5 kg Intake: Intake, IV Titration 1375 Amount Levofloxacin 500Mg-D5w 1375 Pmx 500 mg In Dextrose/ Water 1 100ml.bag @ 100 mls/hr IVPB Q24H [facility] Rx#: [id number] Oral 120 900 100 Blood Product 0 Rc As-1 Unit 0 [id number] Other: Voiding Method Bedpan # Voids 1 300 - Exam Review of Systems Constitutional: Reports as per HPI, Denies anorexia, reports chills, reports cold sweats Denies chronic headaches, Denies chronic pain, Denies daytime sleepiness, Denies fatigue, Denies fever, Denies lethargy, Denies malaise, Denies night sweats, Denies poor appetite, Denies sweats, Denies weakness, Denies weight gain, Denies weight loss Ears, nose, mouth and throat: Reports as per HPI, Denies ant. neck pain, Denies bleeding gums, Denies dental pain, Denies dysphagia, Denies epistaxis, Denies headache, Denies hoarseness, Denies mouth pain, Denies nasal congestion, Denies nasal discharge, Denies neck fullness/pressure, Denies neck lump, Denies nose pain, Denies odynophagia, Denies post-nasal drip, Denies sinus pain, Denies sinus pressure, Denies swelling in mouth, Denies swelling in throat, Denies sore throat, Denies vertigo, Denies voice changes Cardiovascular: Reports as per HPI, Reports chest pain, Reports decreased exercise tolerance, Reports dyspnea on exertion, Reports irregular heart beat, Reports rapid heart beat, Reports shortness of breath Respiratory: Reports as per HPI Gastrointestinal: Reports as per HPI Genitourinary: Reports as per HPI Menstruation: Reports as per HPI, Denies amenorrhea, Denies amenorrhea on BC, Denies currently menstrual, Denies cycle < 21 days, Denies cycle > 35 days, Denies cycle variable, Denies menses 1-7 days, Denies menses 8 or > days, Denies menses variable, Denies period heavy, Denies period light, Denies period normal, Denies period spotting, Denies post hysterectomy, Denies postmenopausal, Denies premenarcheal Musculoskeletal: Reports as per HPI, Denies arm numbness/tingling, Denies atrophy, Denies fractures, Denies frequent falls, Denies gait dysfunction, Denies hot joints, Denies leg numbness/tingling, Denies limitation of motion, Denies loss of height, Denies low back pain, Denies morning stiffness, Denies muscle cramps, Denies muscle weakness, Denies myalgias, Denies neck pain, Denies neck stiffness, Denies prior amputations, Denies redness of joints, Denies shooting arm pain, Denies shooting leg pain Integumentary: Reports as per HPI, Denies acne, Denies boils, Denies brittle nails, Denies change in hair/nails, Denies color changes, Denies darkening of skin, Denies depigmentation, Denies dryness, Denies foot/leg ulcers, Denies growths, Denies hirsutism, Denies lesions, Denies onychomycosis, Denies pruritus, Denies rash, Denies sores, Denies striae, Denies unusual bruising, Denies wounds Neurological: Reports as per HPI, Reports tremors, Reports weakness, Denies aphasia, Denies ataxia, Denies balance difficulties, Denies burning pain, Denies change in mentation, Denies change in smell/taste, Denies change in speech, Denies confusion, Denies convulsions, Denies double vision, Denies gait dysfunction, Denies head injury, Denies headaches, Denies hearing difficulties, Denies lack of coordination, Denies loss of vision, Denies memory loss, Denies migraines, Denies motor disturbance, Denies numbness, Denies paralysis, Denies paresthesias, Denies seizures, Denies sensory deficit, Denies spasticity, Denies syncope, Denies tic, Denies tingling, Denies transient paralysis, Denies vertigo, Denies visual changes Psychiatric: Reports as per HPI Endocrine: Reports as per HPI Hematologic/Lymphatic: Reports as per HPI, Denies easy bleeding, Denies easy bruising, Denies lymphadenopathy, Denies lymphedema, Denies thrombophilia Allergic/Immunologic: Reports as per HPI, Denies allergic rhinitis, Denies anaphylaxis, Denies angioedema, Denies gluten intolerance, Denies persistent infections, Denies seasonal allergies, Denies urticaria, Denies wheezing - Constitutional General appearance: cooperative, no acute distress - EENT Eyes: anicteric sclerae, PERRLA, dentition normal, normal appearance ENT: NA/AT, normal oropharynx - Neck Neck: normal ROM Thyroid: bilateral: normal size, negative: enlarged, firm - Respiratory Respiratory: bilateral: CTA, negative: diminished, scattered bilateral crackles - Cardiovascular Rhythm: regular Heart sounds: normal: S1, S2 Abnormal Heart Sounds: no systolic murmur, no diastolic murmur, no rub, no S3 Gallop, no S4 Gallop, no click, no other - Gastrointestinal General gastrointestinal: normal bowel sounds, soft - Integumentary Integumentary: decreased turgor, normal - Neurologic Neurologic: CNII-XII intact - Musculoskeletal Musculoskeletal: gait normal, generalized weakness, strength equal bilaterally - Psychiatric Psychiatric: A&O x's 3, appropriate affect, intact judgment & insight - Labs CBC & Chem 7: 06/28/19 05:36 06/28/19 05:36 Labs: Abnormal Lab Results - Last 24 Hours (Table) 06/27/19 06/27/19 06/27/19 Range/Units 11:57 14:05 16:35 WBC (3.8-10.6) k/uL RBC (3.80-5.40) m/uL Hgb (11.4-16.0) gm/dL Hct (34.0-46.0) % MCV (80.0-100.0) fL MCH (25.0-35.0) pg RDW (11.5-15.5) % Plt Count (150-450) k/uL Lymphocytes # (1.0-4.8) k/uL Macrocytosis Potassium (3.5-5.1) mmol/L Chloride (98-107) mmol/L Carbon Dioxide (22-30) mmol/L BUN (7-17) mg/dL Glucose (74-99) mg/dL POC Glucose (mg/dL) 134 H (75-99) mg/dL Plasma Lactic Acid Josep 7.6 H* (0.7-2.0) mmol/L Procalcitonin 3.34 H (0.02-0.09) ng/mL Urine Protein (Negative) Urine Glucose (UA) (Negative) Urine Ketones (Negative) Urine Blood (Negative) Urine Mucus (None) /hpf Crossmatch 06/27/19 06/27/19 06/27/19 Range/Units 16:43 18:48 20:26 WBC (3.8-10.6) k/uL RBC (3.80-5.40) m/uL Hgb (11.4-16.0) gm/dL Hct (34.0-46.0) % MCV (80.0-100.0) fL MCH (25.0-35.0) pg RDW (11.5-15.5) % Plt Count (150-450) k/uL Lymphocytes # (1.0-4.8) k/uL Macrocytosis Potassium (3.5-5.1) mmol/L Chloride (98-107) mmol/L Carbon Dioxide (22-30) mmol/L BUN (7-17) mg/dL Glucose (74-99) mg/dL POC Glucose (mg/dL) 210 H 234 H (75-99) mg/dL Plasma Lactic Acid Josep (0.7-2.0) mmol/L Procalcitonin (0.02-0.09) ng/mL Urine Protein 1+ H (Negative) Urine Glucose (UA) Trace H (Negative) Urine Ketones 2+ H (Negative) Urine Blood Small H (Negative) Urine Mucus Rare H (None) /hpf Crossmatch 06/27/19 06/28/19 06/28/19 Range/Units 20:47 00:49 05:36 WBC 2.7 L (3.8-10.6) k/uL RBC 1.66 L (3.80-5.40) m/uL Hgb 6.4 L* D (11.4-16.0) gm/dL Hct 20.1 L (34.0-46.0) % MCV 121.4 H (80.0-100.0) fL MCH 38.4 H (25.0-35.0) pg RDW 17.6 H (11.5-15.5) % Plt Count 35 L D (150-450) k/uL Lymphocytes # 0.2 L (1.0-4.8) k/uL Macrocytosis Marked A Potassium (3.5-5.1) mmol/L Chloride (98-107) mmol/L Carbon Dioxide (22-30) mmol/L BUN (7-17) mg/dL Glucose (74-99) mg/dL POC Glucose (mg/dL) (75-99) mg/dL Plasma Lactic Acid Josep 7.0 H* 3.1 H* (0.7-2.0) mmol/L Procalcitonin (0.02-0.09) ng/mL Urine Protein (Negative) Urine Glucose (UA) (Negative) Urine Ketones (Negative) Urine Blood (Negative) Urine Mucus (None) /hpf Crossmatch 06/28/19 06/28/19 06/28/19 Range/Units 05:36 05:36 06:16 WBC (3.8-10.6) k/uL RBC (3.80-5.40) m/uL Hgb (11.4-16.0) gm/dL Hct (34.0-46.0) % MCV (80.0-100.0) fL MCH (25.0-35.0) pg RDW (11.5-15.5) % Plt Count (150-450) k/uL Lymphocytes # (1.0-4.8) k/uL Macrocytosis Potassium 5.9 H (3.5-5.1) mmol/L Chloride 97 L (98-107) mmol/L Carbon Dioxide 39 H (22-30) mmol/L BUN 24 H (7-17) mg/dL Glucose 319 H (74-99) mg/dL POC Glucose (mg/dL) 362 H (75-99) mg/dL Plasma Lactic Acid Josep 2.4 H* (0.7-2.0) mmol/L Procalcitonin (0.02-0.09) ng/mL Urine Protein (Negative) Urine Glucose (UA) (Negative) Urine Ketones (Negative) Urine Blood (Negative) Urine Mucus (None) /hpf Crossmatch 06/28/19 06/28/19 Range/Units 07:50 09:31 WBC (3.8-10.6) k/uL RBC (3.80-5.40) m/uL Hgb (11.4-16.0) gm/dL Hct (34.0-46.0) % MCV (80.0-100.0) fL MCH (25.0-35.0) pg RDW (11.5-15.5) % Plt Count (150-450) k/uL Lymphocytes # (1.0-4.8) k/uL Macrocytosis Potassium (3.5-5.1) mmol/L Chloride (98-107) mmol/L Carbon Dioxide (22-30) mmol/L BUN (7-17) mg/dL Glucose (74-99) mg/dL POC Glucose (mg/dL) (75-99) mg/dL Plasma Lactic Acid Josep 3.6 H* (0.7-2.0) mmol/L Procalcitonin (0.02-0.09) ng/mL Urine Protein (Negative) Urine Glucose (UA) (Negative) Urine Ketones (Negative) Urine Blood (Negative) Urine Mucus (None) /hpf Crossmatch See Detail Assessment and Plan Plan: 1. Acute respiratory failure with hypercarbic respiratory failure, and delirium, with transient low-grade temp looks like patient received BiPAP treatments currentlybipap on standby off BiPAP treatments patient is at risk for spontaneous pneumothorax,, O2, IV steroids, proalcitonin levels lactic acid levels, IV fluids, proBNP is normal, consult with Dr. Derrick noland 2. Acute exacerbation advanced end-stage COPD. patient is a candidate for lung transplant but has to be off narcotics which she is unable to. Pulmonary medicine consult appreciated. Initiated on DuoNeb treatments, Symbicort, Solu- Medrol, CT suggests a severe emphysema with massive lung bullae seen in the right upper lobe tracheal bronchomalacia. Patient is at high risk of nosocomial infections bilateral currently is on stable to be discharged home will switch patient to IV steroids and continue the care unless patient is stable to be discharged she is a poor prognosis and needs evaluation for hospice but patient is currently refusing 3. Pancytopenia, probably related to prednisone dose, and chronic use of DMARD, patient is on Humira every Monday, which is on hold, until pneumonia is completely ruled out await pro-calcitonin levels globulin levels AG and a will be obtained, 4. Advanced end-stage COPD with large bulla on the right upper lobe multiple ruptured bulla and spontaneous pneumothorax in the past, stable. Patient is working with with [facility] transplant team. 5. Chronic hypoxemic and hypercapneic respiratory failure requiring mechanical ventilation in the past and Trach which has since removed. Patient follows with Dr. Mistry on a regular basis. Patient has home O2 at 4 L nasal cannula. 6. History of Crohn's colitis status post subtotal colectomy and ostomy. Patient is to continue Humira, mercaptopurine, Levsin. currently stable. 7. Moderate protein calorie malnutrition. Continue with protein supplement. 8. H/O critical illness myopathy post IVIG infusion. 9.. Generalized anxiety disorder. Continue BuSpar to 10 mg orally twice every day and Cymbalta 30 mg daily. 10. Fibromyalgia with bilateral neuropathy. Continue with Gabapentin 300 mg orally tid. 11. Sinus tachycardia. Continue Metoprolol 50 mg orally tid. 12. Vitamin D deficiency. 13. B12 deficiency. Continue with B12 1000 mcg sc q month. 14. Glaucoma. Continue Xalatan. 15. Hypomagnesemia. Continue with magnesium oxide. 16. Chronic pain on Hobson 10 mg every 8 hours. Patient states she needs to be weaned off this for 6 months prior to transplant. Hobson 10 mg every 6 hours as needed. Patient states that she cannot go past abstaining 3 days of her Hobson, patient goes into withdrawal, she still has to see pain management for opiate wean 17. DVT prophylaxis. continue Lovenox 40 mg subcutaneously every day. 18. GI prophylaxis. Continue Carafate. 19. Elevated liver function tests. Recheck in the morning. Acute hepatitis panel was negative last admission and liver ultrasound were negative repeat CMP tomorrow CODE STATUS: Full code. Discussion on patient's CODE STATUS but patient currently wants to be full code and understands that she has poor prognosis difficulty recovering while she gets intubated but she still would like to be reintubated regardless. Discharge plan: Most likely return home. Impression and plan of care have been directed as dictated by the signing physician. Gaby Rothman nurse practitioner acting as scribe for signing physician.
[2019-06-28] MEDS: LEVOFLOXACIN 500 MG TAB PO SCH (16:43)
[2019-06-28] MEDS: MIRTAZAPINE 15 MG TAB PO SCH (16:43)
[2019-06-28 17:09] LABS: Glucose,Whole Blood 248 mg/dL (75-99)
[2019-06-28 18:26] LABS: Anisocytosis Marked; Basophils % (A) 0 %; Eosinophils % (A) 1 %; HCT 27.6 % (34.0-46.0); Hypochromasia Slight; Lymphocytes # (A) 0.2 k/uL (1.0-4.8); Lymphocytes % (A) 8 %; MCH 34.7 pg (25.0-35.0); Macrocytosis Marked; Mean Platelet Volume 9.9; Monocytes # (A) 0.1 k/uL (0-1.0); Monocytes % (A) 3 %; Neutrophils # (A) 2.3 k/uL (1.3-7.7); Neutrophils % (A) 89 %; Poikilocytosis Slight; RBC 2.54 m/uL (3.80-5.40); WBC 2.7 k/uL (3.8-10.6)
[2019-06-28 18:38] LABS: HGB 8.8 gm/dL (11.4-16.0); MCV 108.5 fL (80.0-100.0)
[2019-06-28 18:41] LABS: African American GFR (CKD) >90 (>60 ml/min/1.73 sqM); Anion Gap 4 mmol/L; Blood Urea Nitrogen 22 mg/dL (7-17); Calcium 8.6 mg/dL (8.4-10.2); Carbon Dioxide 37 mmol/L (22-30); Chloride 100 mmol/L (98-107); Glucose 228 mg/dL (74-99); Potassium 5.2 mmol/L (3.5-5.1); Sodium 141 mmol/L (137-145)
[2019-06-28 18:57] LABS: Platelet Count 35 k/uL (150-450); Poikilocytosis (M) Present; Polychromasia Present
[2019-06-28 21:07] LABS: Glucose,Whole Blood 196 mg/dL (75-99)
[2019-06-28] MEDS: MELATONIN 5 MG TABLET PO PRN (21:26)
[2019-06-28] MEDS: LATANOPROST 0.005% OPHTH DROPS 2.5 ML BTL BOTH EYES SCH (21:26)
[2019-06-29] MEDS: SODIUM CHLORIDE 0.9% 1,000 ML IV SCH ×4 (02:41→22:39)
[2019-06-29 06:19] LABS: Glucose,Whole Blood 192 mg/dL (75-99)
[2019-06-29] MEDS: INSULIN ASPART (NovoLOG) 100 UNIT/ML VIAL SQ SCH ×4 (06:22→21:26)
[2019-06-29] MEDS: methylPREDNISolone SOD SUCCI 125 MG/2 ML VIAL IV SCH ×4 (06:22→22:38)
[2019-06-29] MEDS: CHOLECALCIFEROL 1,000 UNIT TAB PO SCH (08:47)
[2019-06-29] MEDS: CALCIUM CARBONATE 500 MG CHEWABLE PO SCH ×2 (08:47→21:27)
[2019-06-29] MEDS: MULTIVITAMINS, THERA 1 EACH TAB PO SCH ×2 (08:47→21:40)
[2019-06-29] MEDS: LIDOCAINE 5% PATCH TOPICAL SCH (08:48)
[2019-06-29] MEDS: MAGNESIUM OXIDE 400 MG TAB PO SCH (09:02)
[2019-06-29] MEDS: GABAPENTIN 300 MG CAP PO SCH ×3 (09:02→21:27)
[2019-06-29] MEDS: PANTOPRAZOLE 40 MG TABLET PO SCH (09:02)
[2019-06-29] MEDS: DULoxetine HCL 30 MG CAPSULE.DR PO SCH (09:02)
[2019-06-29] MEDS: DIPHENOX-ATROP 2.5-0.025 MG 1 EACH TAB PO SCH ×3 (09:02→21:27)
[2019-06-29] MEDS: MERCAPTOPURINE 50 MG TAB PO SCH ×2 (09:02→21:39)
[2019-06-29] MEDS: METOPROLOL TARTRATE 50 MG TAB PO SCH ×3 (09:02→21:27)
[2019-06-29] MEDS: INSULIN NPH 300 UNIT/3 ML VIAL SQ SCH ×2 (09:03→21:26)
[2019-06-29] MEDS: HYDROcodone/APAP 10-325MG 1 EACH TAB PO PRN (09:03)
--- NOTE | 2019-06-29 09:39 | P.PN ---
Subjective Progress Note Date: 06/29/19 Principal diagnosis: Acute exacerbation of severe chronic obstructive pulmonary disease. This is a 59-year-old white female patient of Dr. James, severe chronic obstructive pulmonary disease with baseline FEV1 of 36% of predicted, bolus emphysema with previous history of spontaneous pneumothoraces requiring chest tube placement. Patient has been evaluated for lung transplantation at [facility], that she was not a good candidate for lung reduction procedure. For now she is being investigated for lung transplantation. Other medical history includes Crohn's disease with history of ileostomy and a total colectomy, chronic hypoxemic respiratory failure patient usually wears 4 L of oxygen by nasal cannula, previous history of rest or a failure requiring mechanical ventilation. He had the recent hospitalizations in April and May of this year for COPD exacerbation, she was seen in follow-up by Dr. Mistry in the office on 06/26/2019, and patient was stable, without any active signs of exacerbation. On 06/18/2019 patient states she was hearing things that were not there, and apparently her noticed her breathing heavier. She states that there is no fever or chills, no increased cough or congestion. Patient took one breathing treatment prior to calling EMS, when the EMS responded patient's O2 saturation was in the mid 80s, she was noted to be dyspneic, tachycardic with a heart rate in the 160s and 180s. Patient was given a dose of adenosine, the heart rate did slow down briefly but then the tachycardia resumed at a rate of 150. EKG showed sinus tachycardia with a rate of 152, without acute ischemic changes. Chest x-ray was obtained showing suspicion for left apical pneumothorax, this was followed up with the CT chest showing advanced emphysematous changes greater in the right lung with scattered areas of scarring and/or atelectasis, with no significant change from most recent study no new infiltrate or consolidation. Patient was placed on BiPAP support, she was given extra dose of metoprolol, she was started on IV steroids, nebulized bronchodilators. We're seeing this patient for evaluation of increased shortness of breath. Lab work showed a white blood cell count of 2.1, hemoglobin of 8.4, serum sodium is 140, potassium is 3.9, chloride is 91, CO2 is 46, B1 is 22, creatinine 0.63, troponin was negative 1, proBNP was within normal limits at 199. The patient is seen today 06/29/2019 in follow-up on the selective care unit. She is currently awake and alert in no acute distress. She did require BiPAP support throughout the evening due to O2 saturations in the 70s. She was placed on BiPAP 10/03 at 100% FiO2 currently at 40% FiO2. Stool for occult blood was positive. She is status post 1 unit of packed red blood cells. Last hemoglobin 8.8. She is continued on IV same model, bronchodilators, Levaquin. Objective - Vital Signs Vital signs: Vital Signs Temp 98.1 F 06/29/19 04:00 Pulse 91 06/29/19 04:00 Resp 18 06/29/19 04:00 BP 140/90 06/29/19 04:00 Pulse Ox 96 06/29/19 04:00 Intake & Output 06/28/19 06/29/19 06/29/19 18:59 06:59 18:59 Intake Total 650 Output Total 800 400 Balance -150 -400 Weight 51.5 kg Intake: Oral 340 Blood Product 310 Rc As-1 Unit 310 [id number] Output: Urine 800 400 Other: Voiding Method Diaper Bedpan Diaper - Exam GENERAL EXAM: Alert, pleasant, 51-year-old female patient, alternating on BiPAP with 4 L of oxygen, in mild respiratory distress. HEAD: Normocephalic/atraumatic. EYES: Normal reaction of pupils, equal size. Conjunctiva pink, sclera white. NOSE: Clear with pink turbinates. THROAT: No erythema or exudates. NECK: No masses, no JVD, no thyroid enlargement, no adenopathy. CHEST: No chest wall deformity. Symmetrical expansion. LUNGS: Equal air entry with diminished breath sounds bilaterally CVS: Regular rate and rhythm, normal S1 and S2, no gallops, no murmurs, no rubs ABDOMEN: Soft, nontender. No hepatosplenomegaly, normal bowel sounds, no guard ing or rigidity. Ileostomy is in place EXTREMITIES: No clubbing, no edema, no cyanosis, 2+ pulses and upper and lower extremities. MUSCULOSKELETAL: Muscle strength and tone normal. SPINE: No scoliosis or deformity SKIN: No rashes CENTRAL NERVOUS SYSTEM: No focal deficits, tone is normal in all 4 extremities. PSYCHIATRIC: Alert and oriented -3. Appropriate affect. Intact judgment and insight. - Labs CBC & Chem 7: 06/28/19 17:57 06/28/19 17:57 Labs: Abnormal Lab Results - Last 24 Hours (Table) 06/27/19 06/28/19 06/28/19 Range/Units 14:05 07:50 09:31 WBC (3.8-10.6) k/uL RBC (3.80-5.40) m/uL Hgb (11.4-16.0) gm/dL Hct (34.0-46.0) % MCV (80.0-100.0) fL RDW (11.5-15.5) % Plt Count (150-450) k/uL Lymphocytes # (1.0-4.8) k/uL Macrocytosis Potassium (3.5-5.1) mmol/L Carbon Dioxide (22-30) mmol/L BUN (7-17) mg/dL Glucose (74-99) mg/dL POC Glucose (mg/dL) (75-99) mg/dL Plasma Lactic Acid Josep 3.6 H* (0.7-2.0) mmol/L Stool Occult Blood (Negative) IgG 331.0 L (700.0-1600.0) mg/dL Crossmatch See Detail 06/28/19 06/28/19 06/28/19 Range/Units 11:51 13:16 14:06 WBC (3.8-10.6) k/uL RBC (3.80-5.40) m/uL Hgb (11.4-16.0) gm/dL Hct (34.0-46.0) % MCV (80.0-100.0) fL RDW (11.5-15.5) % Plt Count (150-450) k/uL Lymphocytes # (1.0-4.8) k/uL Macrocytosis Potassium (3.5-5.1) mmol/L Carbon Dioxide (22-30) mmol/L BUN (7-17) mg/dL Glucose (74-99) mg/dL POC Glucose (mg/dL) 311 H (75-99) mg/dL Plasma Lactic Acid Josep 2.3 H* (0.7-2.0) mmol/L Stool Occult Blood Positive H (Negative) IgG (700.0-1600.0) mg/dL Crossmatch 0806/28/19 06/28/19 Range/Units 16:58 17:57 17:57 WBC 2.7 L (3.8-10.6) k/uL RBC 2.54 L (3.80-5.40) m/uL Hgb 8.8 L D (11.4-16.0) gm/dL Hct 27.6 L (34.0-46.0) % MCV 108.5 H D (80.0-100.0) fL RDW 24.0 H (11.5-15.5) % Plt Count 35 L (150-450) k/uL Lymphocytes # 0.2 L (1.0-4.8) k/uL Macrocytosis Marked A Potassium 5.2 H (3.5-5.1) mmol/L Carbon Dioxide 37 H (22-30) mmol/L BUN 22 H (7-17) mg/dL Glucose 228 H (74-99) mg/dL POC Glucose (mg/dL) 248 H (75-99) mg/dL Plasma Lactic Acid Josep (0.7-2.0) mmol/L Stool Occult Blood (Negative) IgG (700.0-1600.0) mg/dL Crossmatch 06/28/19 06/28/19 06/28/19 Range/Units 17:57 21:06 21:42 WBC (3.8-10.6) k/uL RBC (3.80-5.40) m/uL Hgb (11.4-16.0) gm/dL Hct (34.0-46.0) % MCV (80.0-100.0) fL RDW (11.5-15.5) % Plt Count (150-450) k/uL Lymphocytes # (1.0-4.8) k/uL Macrocytosis Potassium (3.5-5.1) mmol/L Carbon Dioxide (22-30) mmol/L BUN (7-17) mg/dL Glucose (74-99) mg/dL POC Glucose (mg/dL) 196 H (75-99) mg/dL Plasma Lactic Acid Josep 2.1 H* 2.5 H* (0.7-2.0) mmol/L Stool Occult Blood (Negative) IgG (700.0-1600.0) mg/dL Crossmatch 06/29/19 Range/Units 06:18 WBC (3.8-10.6) k/uL RBC (3.80-5.40) m/uL Hgb (11.4-16.0) gm/dL Hct (34.0-46.0) % MCV (80.0-100.0) fL RDW (11.5-15.5) % Plt Count (150-450) k/uL Lymphocytes # (1.0-4.8) k/uL Macrocytosis Potassium (3.5-5.1) mmol/L Carbon Dioxide (22-30) mmol/L BUN (7-17) mg/dL Glucose (74-99) mg/dL POC Glucose (mg/dL) 192 H (75-99) mg/dL Plasma Lactic Acid Josep (0.7-2.0) mmol/L Stool Occult Blood (Negative) IgG (700.0-1600.0) mg/dL Crossmatch Assessment and Plan Assessment: Assessment: #1. Acute exacerbation of chronic obstructive pulmonary disease, chest x-ray and CT chest showed chronic changes, without evidence of acute pulmonary process #2. Acute on chronic hypoxic respiratory failure secondary to the above #3. Chronic hypercapnic respiratory failure related to advanced COPD #4. SVT, tachycardia, possibly related to nebulized treatments, and acute hypoxia, improved, troponin was negative, and ALLERGIES following #5. History of severe bullous emphysema, the patient has a large bulla occupying a large portion of the right lung field and it is not of chronic left upper lobe cavitation lesion. This has previously been seen on CT scans and chest x-rays, and appears to be stable in appearance. Patient has been referred for lung transplantation surgery at [facility] #6. Chronic hypoxemic respiratory failure related to advanced COPD/emphysema, with baseline FEV1 value of 36% of predicted, stage III COPD, oxygen and prednisone dependent #7. History of bilateral pneumothoraces requiring placement of bilateral chest tubes. #8. History of brief cardiac arrest following spontaneous pneumothoraces, requiring intubation and placement on mechanical ventilation, recovered #9. Past episodes of pneumonia requiring intubation and mechanical ventilation, tracheostomy placement of PEG tube placement and patient had since been weaned off and decannulated #10. Chronic left upper lobe inflammatory opacity #11. Hypertension #12. Hyperlipidemia #13. Crohn's disease with history of bowel resection and creation of ileostomy #14. Hypothyroidism #15. Chronic anemia #16. Fibromyalgia #17. Anxiety/depression Plan: The patient was seen and evaluated by Dr. Meza. The patient did have ongoing issues with hypoxemia and placed on BiPAP at night. He did instruct the nurse based on her severe COPD and hypercapnic respiratory failure keeping her at 88- 92% O2 saturations is the goal. To titrate the FiO2 accordingly. Her overall prognosis remains quite guarded and poor. We'll continue to follow. I, the cosigning physician, performed a history & physical examination of the patient. Lungs sounds are clear but diminished. Maintaining good O2 saturations in the 90s on currently 40% FiO2. I discussed the assessment and plan of care with my nurse practitioner, Trinity Kay. I attest to the above note as dictated by her.
--- NOTE | 2019-06-29 09:41 | XR ---
EXAMINATION TYPE: XR chest 1V portable DATE OF EXAM: 06/29/2019 Comparison: 06/27/2019 Clinical History: 59-year-old female hypoxemia Findings: Heart normal size. Hyperinflation. Patchy interstitial changes on the left and new/worsening airspace opacity throughout the left mid and lower lung. Old healed right-sided rib fracture deformities. Sma ll effusions are noted. Impression: COPD with new/worsening airspace disease left mid and lower lung. Correlate for pneumonia or atypical pulmonary edema. Small effusions.
[2019-06-29] MEDS: IPRATROPIUM-ALBUTEROL 3 ML NEB INHALATION PRN ×3 (11:36→20:59)
[2019-06-29 12:01] LABS: Glucose,Whole Blood 178 mg/dL (75-99)
--- NOTE | 2019-06-29 16:47 | P.PN ---
Subjective Progress Note Date: 06/29/19 This is a 59-year-old female patient of Dr. James and Dr. 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 Patient is currently on transplant list at [facility] where she was initially evaluated for embolectomy but surgery was canceled. Patient is on the lung transplant list but has to be off [place] for 6 months and is currently weaning off herself off [place] and is on 1-3 times a day. Patient was just discharged on 06/06/2006/18/2019 for similar problems with COPD exa cerbation and was discharged to home on oral prednisone, and Zithromax. Patient is not on maintenance oral prednisone at home. She was last seen by Dr. Mistry yesterday, instilled tapering off her prednisone, and was doing okay until early this morning, patient was noticed to be more lethargic, patient stopped breathing or more apneic, however she responds with jerking motion by the , and was more delirious, patient was sent in by the she does not have any fever or chills, however she is febrile coming into the hospital. Patient denies melena and hematochezia, no leg swelling no neck pain no cramps. Patient has significant shortness of breath resting as well as on exertion exertion, she is hearing things that are not there, which is new to her. 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 She is on metoprolol 50 mg 3 times a day with missed dose morning of the ER visit 06/28: Patient had episodes of decreased blood pressure and cold sweats. Antibiotics were started improved procalcitonin 3.34. She states she's had more watery stools from ileostomy. Stool to be sent for C. difficile toxin came back negative. Stool for occult blood was positive. Lactic acid was elevated patient has been fluid resuscitated. She is being transfused 1 unit of packed RBCs for hemoglobin of 6.4. Blood sugars are elevated and NPH twice daily added. Cardiology has signed off and will follow on an as-needed basis. Rate is mostly running in the 90s. She has been resumed on her home dose of Lopressor. Patient is followed by Dr. Meza 06/29 patient's vitals obtained today suggest to temp of 97 pulse 97 blood pressure 160-106 saturating 93% on 3 L. Lactic acid has come down to 0.8 patient is noted to have a small ulcer on her colostomy bag, many many will be applied to help with healing of the wound. Fecal occult is positive for blood. With increased lactic acid on admission and a positive fecal occult gastroenterology is consulted for evaluation of GI bleed. Continue patient on IV steroids for COPD exacerbation. Patient is a severe COPD and is in and out of hospital very frequently and is currently under evaluation for lung transplant. Patient did not require BiPAP overnight. Objective - Vital Signs Vital signs: Vital Signs Temp 97.7 F 06/29/19 08:00 Pulse 116 H 06/29/19 15:56 Resp 20 06/29/19 12:00 BP 149/91 06/29/19 12:00 Pulse Ox 90 L 06/29/19 15:48 Intake & Output 06/28/19 06/29/19 06/29/19 18:59 06:59 18:59 Intake Total 650 240 Output Total 800 400 400 Balance -150 -400 -160 Weight 51.5 kg Intake: Oral 340 240 Blood Product 310 Rc As-1 Unit 310 [id number] Output: Urine 800 400 400 Other: Voiding Method Diaper Bedpan Diaper # Voids 1 - Exam - Constitutional General appearance: cooperative, no acute distress - EENT Eyes: anicteric sclerae, PERRLA, normal appearance ENT: hearing grossly normal - Neck Neck: no lymphadenopathy, normal ROM, no other, no rigidity, no stridor, no thyromegaly - Respiratory Respiratory: bilateral decreased breath sound b/l with wheezing - Cardiovascular Rhythm: regular Heart sounds: normal: S1, S2 Abnormal Heart Sounds: no systolic murmur, no diastolic murmur, no rub, no S3 Gallop, no S4 Gallop, no click, no other - Gastrointestinal General gastrointestinal: normal bowel sounds, soft, non tender, colostomy in place with 0.5 cm of skin tear - Integumentary Integumentary: no rash - Neurologic Neurologic: CNII-XII intact - Musculoskeletal Musculoskeletal: gait normal, strength equal bilaterally - Psychiatric Psychiatric: A&O x's 3, appropriate affect - Labs CBC & Chem 7: 06/28/19 17:57 06/28/19 17:57 Labs: Abnormal Lab Results - Last 24 Hours (Table) 06/28/19 06/28/19 06/28/19 Range/Units 16:58 17:57 17:57 WBC 2.7 L (3.8-10.6) k/uL RBC 2.54 L (3.80-5.40) m/uL Hgb 8.8 L D (11.4-16.0) gm/dL Hct 27.6 L (34.0-46.0) % MCV 108.5 H D (80.0-100.0) fL RDW 24.0 H (11.5-15.5) % Plt Count 35 L (150-450) k/uL Lymphocytes # 0.2 L (1.0-4.8) k/uL Macrocytosis Marked A Potassium 5.2 H (3.5-5.1) mmol/L Carbon Dioxide 37 H (22-30) mmol/L BUN 22 H (7-17) mg/dL Glucose 228 H (74-99) mg/dL POC Glucose (mg/dL) 248 H (75-99) mg/dL Plasma Lactic Acid Josep (0.7-2.0) mmol/L 06/28/19 06/28/19 06/28/19 Range/Units 17:57 21:06 21:42 WBC (3.8-10.6) k/uL RBC (3.80-5.40) m/uL Hgb (11.4-16.0) gm/dL Hct (34.0-46.0) % MCV (80.0-100.0) fL RDW (11.5-15.5) % Plt Count (150-450) k/uL Lymphocytes # (1.0-4.8) k/uL Macrocytosis Potassium (3.5-5.1) mmol/L Carbon Dioxide (22-30) mmol/L BUN (7-17) mg/dL Glucose (74-99) mg/dL POC Glucose (mg/dL) 196 H (75-99) mg/dL Plasma Lactic Acid Josep 2.1 H* 2.5 H* (0.7-2.0) mmol/L 06/29/19 06/29/19 Range/Units 06:18 11:59 WBC (3.8-10.6) k/uL RBC (3.80-5.40) m/uL Hgb (11.4-16.0) gm/dL Hct (34.0-46.0) % MCV (80.0-100.0) fL RDW (11.5-15.5) % Plt Count (150-450) k/uL Lymphocytes # (1.0-4.8) k/uL Macrocytosis Potassium (3.5-5.1) mmol/L Carbon Dioxide (22-30) mmol/L BUN (7-17) mg/dL Glucose (74-99) mg/dL POC Glucose (mg/dL) 192 H 178 H (75-99) mg/dL Plasma Lactic Acid Josep (0.7-2.0) mmol/L Assessment and Plan Plan: 1. Acute respiratory failure with hypercarbic respiratory failure, and delirium, with transient low-grade temp looks like patient received BiPAP treatments currentlybipap on standby off BiPAP treatments patient is at risk for spontaneous pneumothorax,, O2, IV steroids, proalcitonin levels lactic acid levels, IV fluids, proBNP is normal, consult with Dr. Meza appreciated 2. Acute exacerbation advanced end-stage COPD. patient is a candidate for lung transplant but has to be off narcotics which she is unable to. Pulmonary medicine consult appreciated. Initiated on DuoNeb treatments, Symbicort, Solu-Medrol, CT suggests a severe emphysema with massive lung bullae seen in the right upper lobe tracheal bronchomalacia. Patient is at high risk of nosocomial infections bilateral currently is on stable to be discharged home will switch patient to IV steroids and continue the care unless patient is stable to be discharged she is a poor prognosis and needs evaluation for hospice but patient is currently refusing 3. Pancytopenia, probably related to prednisone dose, and chronic use of DMARD, patient is on Humira every Monday, which is on hold, until pneumonia is completely ruled out await pro-calcitonin levels globulin levels AG and a will be obtained, 4. Advanced end-stage COPD with large bulla on the right upper lobe multiple ruptured bulla and spontaneous pneumothorax in the past, stable. Patient is working with with [facility] transplant team. 5. Chronic hypoxemic and hypercapneic respiratory failure requiring mechanical ventilation in the past and Trach which has since removed. Patient follows with Dr. Mistry on a regular basis. Patient has home O2 at 4 L nasal cannula. 6. History of Crohn's colitis status post subtotal colectomy and ostomy. Patient is to continue Humira, mercaptopurine, Levsin. currently stable. 7. Moderate protein calorie malnutrition. Continue with protein supplement. 8. H/O critical illness myopathy post IVIG infusion. 9.. Generalized anxiety disorder. Continue BuSpar to 10 mg orally twice every day and Cymbalta 30 mg daily. 10. Fibromyalgia with bilateral neuropathy. Continue with Gabapentin 300 mg orally tid. 11. Sinus tachycardia. Continue Metoprolol 50 mg orally tid. 12. Vitamin D deficiency. 13. B12 deficiency. Continue with B12 1000 mcg sc q month. 14. Glaucoma. Continue Xalatan. 15. Hypomagnesemia. Continue with magnesium oxide. 16. Chronic pain on [place] 10 mg every 8 hours. Patient states she needs to be weaned off this for 6 months prior to transplant. [place] 10 mg every 6 hours as needed. Patient states that she cannot go past abstaining 3 days of her [place], patient goes into withdrawal, she still has to see pain management for opiate wean 17. DVT prophylaxis. continue Lovenox 40 mg subcutaneously every day. 18. GI prophylaxis. Continue Carafate. 19. Elevated liver function tests. Recheck in the morning. Acute hepatitis panel was negative last admission and liver ultrasound were negative repeat CMP tomorrow CODE STATUS: Full code. Discussion on patient's CODE STATUS but patient myriam urrently wants to be full code and understands that she has poor prognosis difficulty recovering while she gets intubated but she still would like to be reintubated regardless. Discharge plan: Most likely return home.
[2019-06-29 17:11] LABS: Glucose,Whole Blood 232 mg/dL (75-99)
[2019-06-29] MEDS: LEVOFLOXACIN 500 MG TAB PO SCH (17:45)
[2019-06-29] MEDS: BUDESONIDE 1 MG/2 ML NEBU INHALATION PRN (20:59)
[2019-06-29 21:10] LABS: Glucose,Whole Blood 219 mg/dL (75-99)
[2019-06-29] MEDS: MIRTAZAPINE 15 MG TAB PO SCH (21:27)
[2019-06-29] MEDS: ALPRAZolam 0.25 MG TAB PO PRN (21:27)
[2019-06-29] MEDS: LATANOPROST 0.005% OPHTH DROPS 2.5 ML BTL BOTH EYES SCH (21:39)
[2019-06-30] MEDS: HYDROcodone/APAP 10-325MG 1 EACH TAB PO PRN ×4 (00:19→15:14)
[2019-06-30 06:28] LABS: Glucose,Whole Blood 221 mg/dL (75-99)
[2019-06-30] MEDS: INSULIN ASPART (NovoLOG) 100 UNIT/ML VIAL SQ SCH ×4 (06:39→22:08)
[2019-06-30] MEDS: methylPREDNISolone SOD SUCCI 125 MG/2 ML VIAL IV SCH ×3 (06:39→17:46)
[2019-06-30 06:44] LABS: ALT 66 U/L (9-52); AST 42 U/L (14-36); African American GFR (CKD) >90 (>60 ml/min/1.73 sqM); Albumin 2.6 g/dL (3.5-5.0); Alkaline Phosphatase 167 U/L (38-126); Anion Gap 1 mmol/L; Blood Urea Nitrogen 18 mg/dL (7-17); Calcium 8.2 mg/dL (8.4-10.2); Carbon Dioxide 39 mmol/L (22-30); Chloride 97 mmol/L (98-107); Glucose 209 mg/dL (74-99); Potassium 4.3 mmol/L (3.5-5.1); Sodium 137 mmol/L (137-145); Total Bilirubin 1.8 mg/dL (0.2-1.3); Total Protein 4.8 g/dL (6.3-8.2)
[2019-06-30 06:52] LABS: Anisocytosis Moderate; Basophils % (A) 1 %; Eosinophils % (A) 0 %; HCT 29.5 % (34.0-46.0); HGB 8.9 gm/dL (11.4-16.0); Hypochromasia Moderate; Lymphocytes # (A) 0.2 k/uL (1.0-4.8); Lymphocytes % (A) 11 %; MCH 32.3 pg (25.0-35.0); MCV 107.6 fL (80.0-100.0); Mean Platelet Volume 10.1; Monocytes # (A) 0.3 k/uL (0-1.0); Monocytes % (A) 12 %; Neutrophils # (A) 1.6 k/uL (1.3-7.7); Neutrophils % (A) 73 %; Poikilocytosis Slight; RBC 2.74 m/uL (3.80-5.40); RDW 20.9 % (11.5-15.5); WBC 2.1 k/uL (3.8-10.6)
[2019-06-30 06:53] LABS: Macrocytosis Marked; Platelet Count 34 k/uL (150-450)
[2019-06-30] MEDS: BUDESONIDE 1 MG/2 ML NEBU INHALATION PRN ×2 (07:54→19:44)
[2019-06-30] MEDS: SODIUM CHLORIDE 0.9% 1,000 ML IV SCH ×2 (08:40→17:06)
[2019-06-30] MEDS: DULoxetine HCL 30 MG CAPSULE.DR PO SCH (08:52)
[2019-06-30] MEDS: MULTIVITAMINS, THERA 1 EACH TAB PO SCH ×2 (08:52→21:41)
[2019-06-30] MEDS: CALCIUM CARBONATE 500 MG CHEWABLE PO SCH ×2 (08:52→21:41)
[2019-06-30] MEDS: CHOLECALCIFEROL 1,000 UNIT TAB PO SCH (08:53)
[2019-06-30] MEDS: METOPROLOL TARTRATE 50 MG TAB PO SCH ×3 (08:53→21:41)
[2019-06-30] MEDS: GABAPENTIN 300 MG CAP PO SCH ×3 (08:53→21:41)
[2019-06-30] MEDS: DIPHENOX-ATROP 2.5-0.025 MG 1 EACH TAB PO SCH ×3 (08:53→21:40)
[2019-06-30] MEDS: MERCAPTOPURINE 50 MG TAB PO SCH ×2 (08:53→21:57)
[2019-06-30] MEDS: NYSTATIN 100,000 UNIT/ML SUSP 500,000 UNIT/5 ML CUP PO SCH ×4 (08:53→21:58)
[2019-06-30] MEDS: MAGNESIUM OXIDE 400 MG TAB PO SCH (08:53)
[2019-06-30] MEDS: LIDOCAINE 5% PATCH TOPICAL SCH (08:54)
[2019-06-30] MEDS: PANTOPRAZOLE 40 MG TABLET PO SCH (08:57)
[2019-06-30] MEDS: INSULIN NPH 300 UNIT/3 ML VIAL SQ SCH ×2 (08:58→22:09)
--- NOTE | 2019-06-30 09:41 | P.PN ---
Subjective Progress Note Date: 06/30/19 Principal diagnosis: Acute exacerbation of severe chronic obstructive pulmonary disease This is a 59-year-old white female patient of Dr. James, severe chronic obstructive pulmonary disease with baseline FEV1 of 36% of predicted, bolus emphysema with previous history of spontaneous pneumothoraces requiring chest tube placement. Patient has been evaluated for lung transplantation at [facility], that she was not a good candidate for lung reduction procedure. For now she is being investigated for lung transplantation. Other medical history includes Crohn's disease with history of ileostomy and a total colectomy, chronic hypoxemic respiratory failure patient usually wears 4 L of oxygen by nasal cannula, previous history of rest or a failure requiring mechanical ventilation. He had the recent hospitalizations in April and May of this year for COPD exacerbation, she was seen in follow-up by Dr. Mistry in the office on 06/26/2019, and patient was stable, without any active signs of exacerbation. On 06/18/2019 patient states she was hearing things that were not there, and apparently her noticed her breathing heavier. She states that there is no fever or chills, no increased cough or congestion. Patient took one breathing treatment prior to calling EMS, when the EMS responded patient's O2 saturation was in the mid 80s, she was noted to be dyspneic, tachycardic with a heart rate in the 160s and 180s. Patient was given a dose of adenosine, the heart rate did slow down briefly but then the tachycardia resumed at a rate of 150. EKG showed sinus tachycardia with a rate of 152, without acute ischemic changes. Chest x-ray was obtained showing suspicion for left apical pneumothorax, this was followed up with the CT chest showing advanced emphysematous changes greater in the right lung with scattered areas of scarring and/or atelectasis, with no significant change from most recent study no new infiltrate or consolidation. Patient was placed on BiPAP support, she was given extra dose of metoprolol, she was started on IV steroids, nebulized bronchodilators. We're seeing this patient for evaluation of increased shortness of breath. Lab work showed a white blood cell count of 2.1, hemoglobin of 8.4, serum sodium is 140, potassium is 3.9, chloride is 91, CO2 is 46, B1 is 22, creatinine 0.63, troponin was negative 1, proBNP was within normal limits at 199. The patient is seen today 06/29/2019 in follow-up on the selective care unit. She is currently awake and alert in no acute distress. She did require BiPAP support throughout the evening due to O2 saturations in the 70s. She was placed on BiPAP 10/03 at 100% FiO2 currently at 40% FiO2. Stool for occult blood was positive. She is status post 1 unit of packed red blood cells. Last hemoglobin 8.8. She is continued on IV same model, bronchodilators, Levaquin. On 06/30/2019 patient seen in follow-up on selective care unit, still quite dyspneic, easily desaturates with any activity, even with repositioning in bed, still dyspneic, and congested, not able to bring up much sputum. Lung sounds positive for diffuse rhonchi. Last chest x-ray was done yesterday, showing COPD with new worsening airspace disease in the left mid and lower lung likely related to underlying pneumonia, patient is on oral Levaquin, will await and patient's antibiotic coverage, we will add Zosyn, sputum culture has been sent and is pending at this time. Patient hasn't had any fever or chills, she remains on her usual 3 L of oxygen and her pulse ox is 92% with periods of desaturation activity. Mild a tachycardic with a heart rate in the 110's range. Today's labs have been reviewed, showing white blood cell, 2.1, hemoglobin of 8.2, platelet count is 34, serum sodium is 137, potassium is 4.3, chloride is 97, CO2 was 39, BUN is 18 and creatinine 0.46. She is prone calcitonin did come back elevated initial was 3.34, which is coming down to 1.90 on yesterday's labs. Urinalysis without any evidence of infection. Objective - Vital Signs Vital signs: Vital Signs Temp 98.1 F 06/30/19 04:00 Pulse 111 H 06/30/19 08:10 Resp 20 06/30/19 04:00 BP 155/94 06/30/19 04:00 Pulse Ox 92 L 06/30/19 07:55 Intake & Output 06/29/19 06/30/19 06/30/19 18:59 06:59 18:59 Intake Total 240 360 240 Output Total 400 600 Balance -160 -240 240 Intake: Oral 240 360 240 Output: Urine 400 600 Other: Voiding Method Bedpan Diaper # Voids 1 1 - Exam GENERAL EXAM: Alert, pleasant, 51-year-old white female, currently on 3 L of oxygen with a pulse ox 97%, in mild respiratory distress, conversational dyspnea HEAD: Normocephalic/atraumatic. EYES: Normal reaction of pupils, equal size. Conjunctiva pink, sclera white. NOSE: Clear with pink turbinates. THROAT: No erythema or exudates. NECK: No masses, no JVD, no thyroid enlargement, no adenopathy. CHEST: No chest wall deformity. Symmetrical expansion. LUNGS: Equal air entry with diminished breath sounds bilaterally, with diffuse rhonchi bilaterally CVS: Regular rate and rhythm, normal S1 and S2, no gallops, no murmurs, no rubs ABDOMEN: Soft, nontender. No hepatosplenomegaly, normal bowel sounds, no guarding or rigidity. Ileostomy is in place EXTREMITIES: No clubbing, no edema, no cyanosis, 2+ pulses and upper and lower extremities. MUSCULOSKELETAL: Muscle strength and tone normal. SPINE: No scoliosis or deformity SKIN: No rashes CENTRAL NERVOUS SYSTEM: Alert and oriented -3. No focal deficits, tone is normal in all 4 extremities. PSYCHIATRIC: Alert and oriented -3. Appropriate affect. Intact judgment and insight. - Labs CBC & Chem 7: 06/30/19 05:35 06/30/19 05:35 Labs: Abnormal Lab Results - Last 24 Hours (Table) 06/29/19 06/29/19 06/29/19 Range/Units 11:59 12:25 17:10 WBC (3.8-10.6) k/uL RBC (3.80-5.40) m/uL Hgb (11.4-16.0) gm/dL Hct (34.0-46.0) % MCV (80.0-100.0) fL MCHC (31.0-37.0) g/dL RDW (11.5-15.5) % Plt Count (150-450) k/uL Lymphocytes # (1.0-4.8) k/uL Macrocytosis Chloride (98-107) mmol/L Carbon Dioxide (22-30) mmol/L BUN (7-17) mg/dL Creatinine (0.52-1.04) mg/dL Glucose (74-99) mg/dL POC Glucose (mg/dL) 178 H 232 H (75-99) mg/dL Calcium (8.4-10.2) mg/dL Total Bilirubin (0.2-1.3) mg/dL AST (14-36) U/L ALT (9-52) U/L Alkaline Phosphatase (38-126) U/L Total Protein (6.3-8.2) g/dL Albumin (3.5-5.0) g/dL Procalcitonin 1.90 H (0.02-0.09) ng/mL 06/29/19 06/30/19 06/30/19 Range/Units 21:06 05:35 05:35 WBC 2.1 L (3.8-10.6) k/uL RBC 2.74 L (3.80-5.40) m/uL Hgb 8.9 L (11.4-16.0) gm/dL Hct 29.5 L (34.0-46.0) % MCV 107.6 H (80.0-100.0) fL MCHC 30.0 L (31.0-37.0) g/dL RDW 20.9 H (11.5-15.5) % Plt Count 34 L (150-450) k/uL Lymphocytes # 0.2 L (1.0-4.8) k/uL Macrocytosis Marked A Chloride 97 L (98-107) mmol/L Carbon Dioxide 39 H (22-30) mmol/L BUN 18 H (7-17) mg/dL Creatinine 0.46 L (0.52-1.04) mg/dL Glucose 209 H (74-99) mg/dL POC Glucose (mg/dL) 219 H (75-99) mg/dL Calcium 8.2 L (8.4-10.2) mg/dL Total Bilirubin 1.8 H (0.2-1.3) mg/dL AST 42 H (14-36) U/L ALT 66 H (9-52) U/L Alkaline Phosphatase 167 H (38-126) U/L Total Protein 4.8 L (6.3-8.2) g/dL Albumin 2.6 L (3.5-5.0) g/dL Procalcitonin (0.02-0.09) ng/mL 06/30/19 Range/Units 06:27 WBC (3.8-10.6) k/uL RBC (3.80-5.40) m/uL Hgb (11.4-16.0) gm/dL Hct (34.0-46.0) % MCV (80.0-100.0) fL MCHC (31.0-37.0) g/dL RDW (11.5-15.5) % Plt Count (150-450) k/uL Lymphocytes # (1.0-4.8) k/uL Macrocytosis Chloride (98-107) mmol/L Carbon Dioxide (22-30) mmol/L BUN (7-17) mg/dL Creatinine (0.52-1.04) mg/dL Glucose (74-99) mg/dL POC Glucose (mg/dL) 221 H (75-99) mg/dL Calcium (8.4-10.2) mg/dL Total Bilirubin (0.2-1.3) mg/dL AST (14-36) U/L ALT (9-52) U/L Alkaline Phosphatase (38-126) U/L Total Protein (6.3-8.2) g/dL Albumin (3.5-5.0) g/dL Procalcitonin (0.02-0.09) ng/mL Microbiology - Last 24 Hours (Table) 06/29/19 09:20 Gram Stain - Preliminary Sputum Sputum Culture - Preliminary Assessment and Plan Plan: Assessment: #1. Acute community acquired pneumonia involving left mid and left lower lung, with initial chest x-ray and CT chest only showing chronic changes, follow-up chest x-ray showing worsening airspace disease involving the left lung. #2. Acute exacerbation of chronic obstructive pulmonary disease #3. Acute on chronic hypoxic respiratory failure secondary to the above #4. Chronic hypercapnic respiratory failure related to advanced COPD #5. SVT, tachycardia, possibly related to nebulized treatments, and acute hypoxia, improved, troponin was negative, and ALLERGIES following #6. History of severe bullous emphysema, the patient has a large bulla occupying a large portion of the right lung field and it is not of chronic left upper lobe cavitation lesion. This has previously been seen on CT scans and chest x-rays, and appears to be stable in appearance. Patient has been referred for lung transplantation surgery at [facility] #7. Chronic hypoxemic respiratory failure related to advanced COPD/emphysema, with baseline FEV1 value of 36% of predicted, stage III COPD, oxygen and prednisone dependent #8. History of bilateral pneumothoraces requiring placement of bilateral chest tubes. #9. History of brief cardiac arrest following spontaneous pneumothoraces, requiring intubation and placement on mechanical ventilation, recovered #10. Past episodes of pneumonia requiring intubation and mechanical ventilation, tracheostomy placement of PEG tube placement and patient had since been weaned off and decannulated #11. Chronic left upper lobe inflammatory opacity #12. Hypertension #13. Hyperlipidemia #14. Crohn's disease with history of bowel resection and creation of ileostomy #15. Hypothyroidism #16. Chronic anemia #17. Fibromyalgia #18. Anxiety/depression Plan: We will add Zosyn to patient's antibiotic coverage, will continue with Levaquin, awaiting final sputum cultures, yesterday chest x-ray showed worsening of the airspace disease involving the left mid and lower lobe, these changes were not seen on the initial chest x-ray and the CT of the chest, patient is still quite dyspneic, easily desaturate, continue using BiPAP and alternated with nasal cannula as needed. Continue with nebulized bronchodilators, and IV steroids. Overall prognosis is quite poor, and today we had a lengthy conversation with the patient, and unfortunately patient will probably not make it to the lung transplantation related to her poor pulmonary, recurrent hospitalizations relate d to COPD/emphysema. Patient states that she does realize that, we discussed CODE STATUS with her and she stated that she is thinking about changing her CODE STATUS to DO NOT RESUSCITATE however she is undecided at this point. She must have made a decision after we left order is entered for DO NOT RESUSCITATE CODE STATUS. We will continue to follow I performed a history & physical examination of the patient and discussed their management with my nurse practitioner, Carmella Jimenez. I reviewed the nurse practitioner's note and agree with the documented findings and plan of care. Lung sounds are positive for diminished breath sounds. The findings and the impression was discussed with the patient. I attest to the documentation by the nurse practitioner. Time with Patient: Less than 30
--- NOTE | 2019-06-30 11:02 | P.PN ---
Subjective Progress Note Date: 06/30/19 This is a 59-year-old female patient of Dr. James and Dr. 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 Patient is currently on transplant list at [facility] where she was initially evaluated for embolectomy but surgery was canceled. Patient is on the lung transplant list but has to be off [place] for 6 months and is currently weaning off herself off [place] and is on 1-3 times a day. Patient was just discharged on 06/06/2006/18/2019 for similar problems with COPD exa cerbation and was discharged to home on oral prednisone, and Zithromax. Patient is not on maintenance oral prednisone at home. She was last seen by Dr. Mistry yesterday, instilled tapering off her prednisone, and was doing okay until early this morning, patient was noticed to be more lethargic, patient stopped breathing or more apneic, however she responds with jerking motion by the , and was more delirious, patient was sent in by the she does not have any fever or chills, however she is febrile coming into the hospital. Patient denies melena and hematochezia, no leg swelling no neck pain no cramps. Patient has significant shortness of breath resting as well as on exertion exertion, she is hearing things that are not there, which is new to her. Patient also was noted to be tachypneic as well as tachycardic, and was noticed to have decreased mentation Emergency room, CAT scan of the chest was also done, that shows advanced emphysematous changes, and the right lung with scattered areas of scarring and/or atelectasis, no recent change from recent study, no new infiltrate or consolidation required EKG shows sinus tach heart rate of 150s troponin was 0.012, [employer] SPECIALIST proBNP of 199, AST of 51 elevated ALT 94 elevated alkaline phosphatase 224, EKG on ER, sinus tach with PACs, she was given 1 dose of IV adenosine how I ever the heart rate went back up to 150s, 13 seconds after adenosine. She is on metoprolol 50 mg 3 times a day with missed dose morning of the ER visit 06/28: Patient had episodes of decreased blood pressure and cold sweats. Antibiotics were started improved procalcitonin 3.34. She states she's had more watery stools from ileostomy. Stool to be sent for C. difficile toxin came back negative. Stool for occult blood was positive. Lactic acid was elevated patient has been fluid resuscitated. She is being transfused 1 unit of packed RBCs for hemoglobin of 6.4. Blood sugars are elevated and NPH twice daily added. Cardiology has signed off and will follow on an as-needed basis. Rate is mostly running in the 90s. She has been resumed on her home dose of Lopressor. Patient is followed by Dr. Meza 06/29 patient's vitals obtained today suggest to temp of 97 pulse 97 blood pressure 160-106 saturating 93% on 3 L. Lactic acid has come down to 0.8 patient is noted to have a small ulcer on her colostomy bag, many many will be applied to help with healing of the wound. Fecal occult is positive for blood. With increased lactic acid on admission and a positive fecal occult gastroenterology is consulted for evaluation of GI bleed. Continue patient on IV steroids for COPD exacerbation. Patient is a severe COPD and is in and out of hospital very frequently and is currently under evaluation for lung transplant. Patient did not require BiPAP overnight. 06/30: The patient is tearful during evaluation as she is concerned that her pulse ox continues to be today on the lower side running in the 80s despite 4 L of nasal cannula. She states it started after she was switching from nebulizer back to oxygen and her pulse ox dropped quickly and is not to return to her baseline. She verbalizes understanding that she is at the end stages of life and that her condition will not be improving. She is agreeable for palliative/hospice care referral and meeting. CODE STATUS discussed and patient changed to no code. Patient may benefit from inpatient hospice care at this point. Objective - Vital Signs Vital signs: Vital Signs Temp 98.1 F 06/30/19 04:00 Pulse 111 H 06/30/19 08:10 Resp 20 06/30/19 04:00 BP 155/94 06/30/19 04:00 Pulse Ox 92 L 06/30/19 07:55 Intake & Output 06/29/19 06/30/19 06/30/19 18:59 06:59 18:59 Intake Total 240 360 Output Total 400 600 Balance -160 -240 Intake: Oral 240 360 Output: Urine 400 600 Other: Voiding Method Bedpan Diaper # Voids 1 1 - Exam Review of Systems Constitutional: Reports as per HPI, Denies anorexia, reports chills, reports cold sweats Denies chronic headaches, Denies chronic pain, Denies daytime sleepiness, Denies fatigue, Denies fever, Denies lethargy, Denies malaise, Denies night sweats, Denies poor appetite, Denies sweats, Denies weakness, Denies weight gain, Denies weight loss Ears, nose, mouth and throat: Reports as per HPI, Denies ant. neck pain, Denies bleeding gums, Denies dental pain, Denies dysphagia, Denies epistaxis, Denies headache, Denies hoarseness, Denies mouth pain, Denies nasal congestion, Denies nasal discharge, Denies neck fullness/pressure, Denies neck lump, Denies nose pain, Denies odynophagia, Denies post-nasal drip, Denies sinus pain, Denies sinus pressure, Denies swelling in mouth, Denies swelling in throat, Denies sore throat, Denies vertigo, Denies voice changes Cardiovascular: Reports as per HPI, Reports chest pain, Reports decreased exercise tolerance, Reports dyspnea on exertion, Reports irregular heart beat, Reports rapid heart beat, Reports shortness of breath Respiratory: Reports as per HPI Gastrointestinal: Reports as per HPI Genitourinary: Reports as per HPI Menstruation: Reports as per HPI, Denies amenorrhea, Denies amenorrhea on BC, Denies currently menstrual, Denies cycle < 21 days, Denies cycle > 35 days, Denies cycle variable, Denies menses 1-7 days, Denies menses 8 or > days, Denies menses variable, Denies period heavy, Denies period light, Denies period normal, Denies period spotting, Denies post hysterectomy, Denies postmenopausal, Denies premenarcheal Musculoskeletal: Reports as per HPI, Denies arm numbness/tingling, Denies atrophy, Denies fractures, Denies frequent falls, Denies gait dysfunction, Denies hot joints, Denies leg numbness/tingling, Denies limitation of motion, Denies loss of height, Denies low back pain, Denies morning stiffness, Denies muscle cramps, Denies muscle weakness, Denies myalgias, Denies neck pain, Denies neck stiffness, Denies prior amputations, Denies redness of joints, Denies shooting arm pain, Denies shooting leg pain Integumentary: Reports as per HPI, Denies acne, Denies boils, Denies brittle nails, Denies change in hair/nails, Denies color changes, Denies darkening of skin, Denies depigmentation, Denies dryness, Denies foot/leg ulcers, Denies growths, Denies hirsutism, Denies lesions, Denies onychomycosis, Denies pruritus, Denies rash, Denies sores, Denies striae, Denies unusual bruising, Denies wounds Neurological: Reports as per HPI, Reports tremors, Reports weakness, Denies aphasia, Denies ataxia, Denies balance difficulties, Denies burning pain, Denies change in mentation, Denies change in smell/taste, Denies change in speech, Denies confusion, Denies convulsions, Denies double vision, Denies gait dysfunc tion, Denies head injury, Denies headaches, Denies hearing difficulties, Denies lack of coordination, Denies loss of vision, Denies memory loss, Denies migraines, Denies motor disturbance, Denies numbness, Denies paralysis, Denies paresthesias, Denies seizures, Denies sensory deficit, Denies spasticity, Denies syncope, Denies tic, Denies tingling, Denies transient paralysis, Denies vertigo, Denies visual changes Psychiatric: Reports Wendy, reports depression Endocrine: Reports elevated blood sugars Hematologic/Lymphatic: Reports as per HPI, Denies easy bleeding, Denies easy bruising, Denies lymphadenopathy, Denies lymphedema, Denies thrombophilia Allergic/Immunologic: Reports as per HPI, Denies allergic rhinitis, Denies anaphylaxis, Denies angioedema, Denies gluten intolerance, Denies persistent infections, Denies seasonal allergies, Denies urticaria, Denies wheezing - Constitutional General appearance: cooperative, mild to moderate acute distress secondary to increased anxiety, tearfulness - EENT Eyes: anicteric sclerae, PERRLA, dentition normal, normal appearance ENT: NA/AT, normal oropharynx - Neck Neck: normal ROM Thyroid: bilateral: normal size, negative: enlarged, firm - Respiratory Respiratory: bilateral: CTA, negative: diminished, scattered bilateral crackles - Cardiovascular Rhythm: regular Heart sounds: normal: S1, S2 Abnormal Heart Sounds: no systolic murmur, no diastolic murmur, no rub, no S3 Gallop, no S4 Gallop, no click, no other - Gastrointestinal General gastrointestinal: normal bowel sounds, soft - Integumentary Integumentary: decreased turgor, normal - Neurologic Neurologic: CNII-XII intact - Musculoskeletal Musculoskeletal: gait normal, generalized weakness, strength equal bilaterally - Psychiatric Psychiatric: A&O x's 3, appropriate affect, intact judgment & insight - Labs CBC & Chem 7: 06/30/19 05:35 06/30/19 05:35 Labs: Abnormal Lab Results - Last 24 Hours (Table) 06/29/19 06/29/19 06/29/19 Range/Units 11:59 12:25 17:10 WBC (3.8-10.6) k/uL RBC (3.80-5.40) m/uL Hgb (11.4-16.0) gm/dL Hct (34.0-46.0) % MCV (80.0-100.0) fL MCHC (31.0-37.0) g/dL RDW (11.5-15.5) % Plt Count (150-450) k/uL Lymphocytes # (1.0-4.8) k/uL Macrocytosis Chloride (98-107) mmol/L Carbon Dioxide (22-30) mmol/L BUN (7-17) mg/dL Creatinine (0.52-1.04) mg/dL Glucose (74-99) mg/dL POC Glucose (mg/dL) 178 H 232 H (75-99) mg/dL Calcium (8.4-10.2) mg/dL Total Bilirubin (0.2-1.3) mg/dL AST (14-36) U/L ALT (9-52) U/L Alkaline Phosphatase (38-126) U/L Total Protein (6.3-8.2) g/dL Albumin (3.5-5.0) g/dL Procalcitonin 1.90 H (0.02-0.09) ng/mL 08/06/30/19 06/30/19 Range/Units 21:06 05:35 05:35 WBC 2.1 L (3.8-10.6) k/uL RBC 2.74 L (3.80-5.40) m/uL Hgb 8.9 L (11.4-16.0) gm/dL Hct 29.5 L (34.0-46.0) % MCV 107.6 H (80.0-100.0) fL MCHC 30.0 L (31.0-37.0) g/dL RDW 20.9 H (11.5-15.5) % Plt Count 34 L (150-450) k/uL Lymphocytes # 0.2 L (1.0-4.8) k/uL Macrocytosis Marked A Chloride 97 L (98-107) mmol/L Carbon Dioxide 39 H (22-30) mmol/L BUN 18 H (7-17) mg/dL Creatinine 0.46 L (0.52-1.04) mg/dL Glucose 209 H (74-99) mg/dL POC Glucose (mg/dL) 219 H (75-99) mg/dL Calcium 8.2 L (8.4-10.2) mg/dL Total Bilirubin 1.8 H (0.2-1.3) mg/dL AST 42 H (14-36) U/L ALT 66 H (9-52) U/L Alkaline Phosphatase 167 H (38-126) U/L Total Protein 4.8 L (6.3-8.2) g/dL Albumin 2.6 L (3.5-5.0) g/dL Procalcitonin (0.02-0.09) ng/mL 06/30/19 Range/Units 06:27 WBC (3.8-10.6) k/uL RBC (3.80-5.40) m/uL Hgb (11.4-16.0) gm/dL Hct (34.0-46.0) % MCV (80.0-100.0) fL MCHC (31.0-37.0) g/dL RDW (11.5-15.5) % Plt Count (150-450) k/uL Lymphocytes # (1.0-4.8) k/uL Macrocytosis Chloride (98-107) mmol/L Carbon Dioxide (22-30) mmol/L BUN (7-17) mg/dL Creatinine (0.52-1.04) mg/dL Glucose (74-99) mg/dL POC Glucose (mg/dL) 221 H (75-99) mg/dL Calcium (8.4-10.2) mg/dL Total Bilirubin (0.2-1.3) mg/dL AST (14-36) U/L ALT (9-52) U/L Alkaline Phosphatase (38-126) U/L Total Protein (6.3-8.2) g/dL Albumin (3.5-5.0) g/dL Procalcitonin (0.02-0.09) ng/mL Microbiology - Last 24 Hours (Table) 06/29/19 09:20 Gram Stain - Preliminary Sputum Sputum Culture - Preliminary Assessment and Plan Plan: 1. Acute respiratory failure with hypercarbic respiratory failure, and delirium, with transient low-grade temp looks like patient received BiPAP treatments currentlybipap on standby off BiPAP treatments patient is at risk for spontaneous pneumothorax,, O2, IV steroids, proalcitonin levels lactic acid levels, proBNP is normal, consult with Dr. Meza appreciated 2. Acute exacerbation advanced end-stage COPD. patient is a candidate for lung transplant but has to be off narcotics which she is unable to. Pulmonary medicine consult appreciated. Initiated on DuoNeb treatments, Symbicort, Solu- Medrol, CT suggests a severe emphysema with massive lung bullae seen in the right upper lobe tracheal bronchomalacia. Patient is at high risk of nosocomial infections bilateral currently is on stable to be discharged home will switch patient to IV steroids and continue the care unless patient is stable to be discharged she is a poor prognosis and needs evaluation for hospice but patient is currently refusing 3. Pancytopenia, probably related to prednisone dose, and chronic use of DMARD, patient is on Humira every Monday, which is on hold, until pneumonia is completely ruled out await pro-calcitonin levels globulin levels AG and a will be obtained, 4. Advanced end-stage COPD with large bulla on the right upper lobe multiple ruptured bulla and spontaneous pneumothorax in the past, stable. Patient is working with with [facility] transplant team. 5. Chronic hypoxemic and hypercapneic respiratory failure requiring mechanical ventilation in the past and Trach which has since removed. Patient follows with Dr. Mistry on a regular basis. Patient has home O2 at 4 L nasal cannula. 6. History of Crohn's colitis status post subtotal colectomy and ostomy. Patient is to continue Humira, mercaptopurine, Levsin. currently stable. 7. Moderate protein calorie malnutrition. Continue with protein supplement. 8. H/O critical illness myopathy post IVIG infusion. 9.. Generalized anxiety disorder. Continue BuSpar to 10 mg orally twice every day and Cymbalta 30 mg daily. 10. Fibromyalgia with bilateral neuropathy. Continue with Gabapentin 300 mg orally tid. 11. Sinus tachycardia. Continue Metoprolol 50 mg orally tid. 12. Vitamin D deficiency. 13. B12 deficiency. Continue with B12 1000 mcg sc q month. 14. Glaucoma. Continue Xalatan. 15. Hypomagnesemia. Continue with magnesium oxide. 16. Chronic pain on [place] 10 mg every 8 hours. Patient states she needs to be weaned off this for 6 months prior to transplant. [place] 10 mg every 6 hours as needed. Patient states that she cannot go past abstaining 3 days of her [place], patient goes into withdrawal, she still has to see pain management for opiate wean 17. DVT prophylaxis. continue Lovenox 40 mg subcutaneously every day. 18. GI prophylaxis. Continue Carafate. 19. Elevated liver function tests. Recheck in the morning. Acute hepatitis panel was negative last admission and liver ultrasound were negative repeat CMP tomorrow CODE STATUS: No code Discharge plan: Referral made to palliative, hospice care informational meeting. Patient may benefit from inpatient hospice care at this point. Prognosis poor Impression and plan of care have been directed as dictated by the signing physician. Gaby Rothman nurse practitioner acting as scribe for signing physician.
[2019-06-30] MEDS: IPRATROPIUM-ALBUTEROL 3 ML NEB INHALATION PRN ×3 (11:20→19:44)
[2019-06-30 11:51] LABS: Glucose,Whole Blood 297 mg/dL (75-99)
[2019-06-30] MEDS: PIPERACILLIN-TAZOBACTAM 3.375 GM in SODIUM CHLORIDE 0.9% 100 ML IVPB SCH ×2 (11:52→17:04)
--- NOTE | 2019-06-30 13:02 | CONS ---
CONSULTATION REQUESTING PHYSICIAN: Dr. Arvizu. REASON FOR CONSULTATION: Anemia and history of Crohn's disease. HISTORY OF PRESENT ILLNESS: The patient is a 59-year-old pleasant white female with longstanding history of Crohn's ileitis, status post total proctocolectomy with ileostomy many years ago presently maintained on Humira once a week, 6-mercaptopurine 100 mg daily for several years. She has history of end-stage lung disease for which she has been requiring multiple hospitalizations over the last 1 year. She presents to the emergency room with severe shortness of breath and COPD exacerbation. She was extensively investigated in the past and was deemed not a candidate for lung transplant because of her overall medical condition. She was discharged from the hospital in 3 weeks ago, at which time was admitted with exacerbation of COPD and was sent home on oral prednisone and Zithromax. She came into the emergency room complaining of severe shortness of breath, tachypneic tachycardic and altered mental status. She had a CT of the chest done in the ER that showed symptomatic emphysematous changes in the right lung with scattered areas of scarring and atelectasis with known infiltrate. Labs during this hospitalization showed hemoglobin 6.4, requiring 1 unit of blood transfusion, Hemoccult-positive stool and we are consulted in regards to this issue. The patient denies any significant change in her stool output from the ostomy bag. She has been emptying her bag about 3-4 times daily. Continues to remain on tincture of opium 4 times daily to control the diarrhea. She denies any rectal bleeding. She does complain of intermittent lower abdominal pain. No nausea, no vomiting. PAST MEDICAL HISTORY: Significant for Crohn's disease diagnosed 40 years ago, status post total proctocolectomy with ileostomy with recurrent Crohn disease diagnosed in the distal ileum approximately 10 years ago, history of GERD, fibromyalgia, severe COPD with advanced lung disease, multiple hospitalizations in the last 1 year for emphysema/ruptured bullae. PAST SURGICAL HISTORY: Breast surgery, cholecystectomy, total proctocolectomy with ileostomy, hernia repair, hysterectomy, left breast lumpectomy. MEDICATIONS: At home include albuterol, calcium, Lomotil, melatonin, Remeron, nystatin, Zofran, Protonix, Lidoderm patch, Carafate, vitamin D3, vitamin B12, multivitamin, Xanax, tincture of opium, Mycostatin powder. ALLERGIES: To IV CONTRAST DYE, VIOXX, LYRICA, SULFA ANTIBIOTICS, ASPIRIN, TIMOLOL. SOCIAL HISTORY: Remote history of smoking. No alcohol use. FAMILY HISTORY: Mother with COPD and hypertension. Father had CVA, dementia and diabetes mellitus. REVIEW OF SYSTEMS: CARDIOPULMONARY: Severe shortness of breath and some chest discomfort. NEUROLOGY: Unremarkable. PSYCHIATRIC: Unremarkable. ENT/VISION: Unremarkable. CONSTITUTIONAL: Some weight loss. No fever, chills, night sweats. GI: As mentioned above. HEMATOLOGY: Anemia. PHYSICAL EXAMINATION: She appears comfortable. No apparent distress. Vital signs are stable. Blood pressure is 155/94, pulse rate 111, temperature 98.1. HEENT: Examination unremarkable. Conjunctivae pink. Sclerae anicteric. Oral cavity no lesions. NECK: No JVD or lymph node enlargement. CHEST: Decreased breath sounds bilaterally. Severe wheezing noted. ABDOMEN: Soft. Ileostomy in place. No blood noted in the ileostomy bag, was nontender. EXTREMITIES: No pedal edema. SKIN: No rashes. NEUROLOGIC: Alert and oriented x3. No focal deficits. LABS: From today WBC 2.1, hemoglobin 8.9, platelets 34,000. BUN 18, creatinine 0.46. AST and ALT are 42 and 66 respectively. T bilirubin 1.8, alkaline phosphatase 167. Stool occult blood was positive. C diff was negative. She received 1 unit of blood transfusion on June 28 for hemoglobin of 6.4. IMPRESSION: 1. Severe anemia, but clinically no evidence of active bleeding. Hemoccult was positive. The patient with longstanding history of Crohn's ileitis maintained on Humira 40 mg once a week, 6-mercaptopurine 100 mg daily and remains in clinical remission. 2. Advanced chronic obstructive pulmonary disease with end-stage lung disease, not a candidate for lung transplantation. The patient is considering hospice at the present time. 3. Mild elevation of serum transaminases and an upper records her serum transaminases have been elevated for almost 6 months duration. Most likely could be medical condition related. The patient has been on 6-mercaptopurine for several years and never had any elevated serum transaminases in the past, probably antibiotics may be playing a role in causing elevated LFTs. However, they continued to remain stable. 4. Tachycardia and hypertension, which is gradually improving. RECOMMENDATION: 1. Agree with PRBC transfusion. 2. Monitor CBC daily. 3. Continue with symptomatic and supportive care. 4. Patient considering hospice placement at the present time. 5. We will follow with her closely during hospital stay. Thank you for this consultation. EUGENE / VILLA: [id number] /
[2019-06-30 17:07] LABS: Glucose,Whole Blood 216 mg/dL (75-99)
[2019-06-30] MEDS: LEVOFLOXACIN 500 MG TAB PO SCH (17:46)
[2019-06-30] MEDS: MIRTAZAPINE 15 MG TAB PO SCH (18:33)
[2019-06-30 20:31] LABS: Glucose,Whole Blood 290 mg/dL (75-99)
[2019-06-30] MEDS: LATANOPROST 0.005% OPHTH DROPS 2.5 ML BTL BOTH EYES SCH (21:57)
[2019-06-30] MEDS: ALPRAZolam 0.25 MG TAB PO PRN (22:04)
[2019-06-30] MEDS: MELATONIN 5 MG TABLET PO PRN (22:04)
[2019-07-01] MEDS: IPRATROPIUM-ALBUTEROL 3 ML NEB INHALATION PRN ×6 (00:20→19:34)
[2019-07-01] MEDS: PIPERACILLIN-TAZOBACTAM 3.375 GM in SODIUM CHLORIDE 0.9% 100 ML IVPB SCH ×4 (00:39→23:17)
[2019-07-01] MEDS: methylPREDNISolone SOD SUCCI 125 MG/2 ML VIAL IV SCH ×5 (00:39→23:17)
[2019-07-01] MEDS: SODIUM CHLORIDE 0.9% 1,000 ML IV SCH ×4 (00:40→23:27)
[2019-07-01 07:06] LABS: Glucose,Whole Blood 249 mg/dL (75-99)
[2019-07-01] MEDS: BUDESONIDE 1 MG/2 ML NEBU INHALATION PRN (07:28)
[2019-07-01] MEDS: GABAPENTIN 300 MG CAP PO SCH (07:56)
[2019-07-01] MEDS: DIPHENOX-ATROP 2.5-0.025 MG 1 EACH TAB PO SCH ×3 (07:56→20:26)
[2019-07-01] MEDS: MAGNESIUM OXIDE 400 MG TAB PO SCH (07:56)
[2019-07-01] MEDS: DULoxetine HCL 30 MG CAPSULE.DR PO SCH ×3 (07:56→15:53)
[2019-07-01] MEDS: CALCIUM CARBONATE 500 MG CHEWABLE PO SCH ×2 (07:57→20:25)
[2019-07-01] MEDS: MULTIVITAMINS, THERA 1 EACH TAB PO SCH ×2 (07:57→20:25)
[2019-07-01] MEDS: CHOLECALCIFEROL 1,000 UNIT TAB PO SCH (07:57)
[2019-07-01] MEDS: PANTOPRAZOLE 40 MG TABLET PO SCH (07:57)
[2019-07-01] MEDS: METOPROLOL TARTRATE 50 MG TAB PO SCH ×3 (07:57→20:26)
[2019-07-01] MEDS: INSULIN ASPART (NovoLOG) 100 UNIT/ML VIAL SQ SCH ×4 (07:57→20:25)
[2019-07-01] MEDS: LIDOCAINE 5% PATCH TOPICAL SCH (07:59)
[2019-07-01] MEDS: NYSTATIN 100,000 UNIT/ML SUSP 500,000 UNIT/5 ML CUP PO SCH ×4 (08:02→20:23)
[2019-07-01] MEDS: MERCAPTOPURINE 50 MG TAB PO SCH (08:02)
[2019-07-01] MEDS: INSULIN NPH 300 UNIT/3 ML VIAL SQ SCH ×2 (08:04→20:24)
[2019-07-01 08:29] LABS: ALT 67 U/L (9-52); AST 38 U/L (14-36); African American GFR (CKD) >90 (>60 ml/min/1.73 sqM); Albumin 2.4 g/dL (3.5-5.0); Alkaline Phosphatase 181 U/L (38-126); Anion Gap 3 mmol/L; Blood Urea Nitrogen 21 mg/dL (7-17); Calcium 8.1 mg/dL (8.4-10.2); Chloride 97 mmol/L (98-107); Glucose 228 mg/dL (74-99); Potassium 3.9 mmol/L (3.5-5.1); Sodium 140 mmol/L (137-145); Total Protein 4.5 g/dL (6.3-8.2)
[2019-07-01] MEDS: HYDROcodone/APAP 10-325MG 1 EACH TAB PO PRN ×3 (08:32→20:36)
[2019-07-01 08:34] LABS: Anisocytosis Moderate; Basophils % (A) 0 %; Eosinophils % (A) 1 %; HCT 26.3 % (34.0-46.0); HGB 8.6 gm/dL (11.4-16.0); Hypochromasia Slight; Lymphocytes # (A) 0.2 k/uL (1.0-4.8); Lymphocytes % (A) 14 %; MCH 34.9 pg (25.0-35.0); MCHC 32.8 g/dL (31.0-37.0); MCV 106.6 fL (80.0-100.0); Macrocytosis Marked; Mean Platelet Volume 10.4; Monocytes # (A) 0.1 k/uL (0-1.0); Monocytes % (A) 5 %; Neutrophils # (A) 0.9 k/uL (1.3-7.7); Neutrophils % (A) 78 %; Poikilocytosis Slight; RBC 2.47 m/uL (3.80-5.40); RDW 20.9 % (11.5-15.5)
[2019-07-01 08:35] LABS: Carbon Dioxide 40 mmol/L (22-30)
[2019-07-01 08:38] LABS: WBC 1.2 k/uL (3.8-10.6)
[2019-07-01 08:39] LABS: Platelet Count 20 k/uL (150-450)
--- NOTE | 2019-07-01 11:08 | PN ---
PROGRESS NOTE DATE OF SERVICE: 07/01/2019 This is a 59-year-old female admitted with a diagnosis of COPD exacerbation and community-acquired pneumonia. Currently, the patient is not doing much better. She continues to complain of significant shortness of breath, chest congestion, cough and phlegm production. She does have a history of both acute on chronic hypoxemic and hypercapnic respiratory failure from her advanced COPD. She has severe bullous emphysema. She was evaluated by Dr. Rushing at [facility] for bullectomy. He declined to do the surgery. He did not think it was safe. In addition, we did have her evaluated by the transplant team at [facility]. Her nutritional status would have to be significantly improved and she would have to be off all narcotics for a period of time before they would even consider listing her. It appears that is not likely to happen. Anyway, the patient continues to do poorly. She does talk about the possibility of going home with hospice. I think hospice consultation was sent or inputted. In addition, she has a history of Crohn disease, hypertension, hyperlipidemia, an episode of bilateral pneumothoraces and acute respiratory failure requiring intubation and mechanical ventilation, among other things. PHYSICAL EXAMINATION: VITAL SIGNS: Current vital signs are reviewed. Her temperature is 97.6, heart rate 84, respiratory rate 26, blood pressure 138/86, mean 103, saturations are low to mid 90s on 3 to 4 L nasal cannula. She appears tachypneic and dyspneic. Mild conversational dyspnea. No audible wheezing. HEENT examination is grossly unremarkable. Mucous membranes are moist. Nasal O2 noted. NECK: Supple. Full range of motion. No adenopathy or thyromegaly. Neck veins are flat. CARDIOVASCULAR examination reveals regular rhythm rate. S1, S2 normal. There are no murmurs. No S3, S4. LUNGS: Reveal severely diminished breath sounds. There are some coarse diffuse expiratory wheezes and rhonchi. No crackles. ABDOMEN: Soft. Bowel sounds are heard. EXTREMITIES are intact. No cyanosis, clubbing, or edema. SKIN: Without rash. NEUROLOGIC: Examination is nonfocal. LABS: Reviewed. White count is only 1.2, hemoglobin 8.6, hematocrit 26.3, platelet count 20,000. Sodium 140, potassium 3.9, chloride 97, CO2 of 40. Anion gap is 3. BUN and creatinine were 21 and 0.63. Calcium 8.1, bilirubin 2, AST 38, ALT 67, albumin 2.4. Her last chest x-ray was done on June 29. It shows COPD with worsening airspace disease, left mid lung and left lower lobe. Microbiologic studies are thus far negative. MEDICATIONS: Reviewed. She remains on all appropriate medications. ASSESSMENT: 1. Acute community-acquired pneumonia involving the left mid lung and left lower lobe, with negative culture data, not seemingly responding to medication. 2. Acute exacerbation of severe chronic obstructive pulmonary disease. 3. Acute on chronic hypoxemic hypercapnic respiratory failure. 4. Supraventricular tachycardia. 5. Bullous emphysema, involving primarily the right upper lobe. She has had evaluations by Dr. Rushing at [facility] for bullectomy, which he declined and by the lung transplant team at [facility]. 6. Severe chronic obstructive pulmonary disease with an FEV1 that is 36% of predicted. 7. History of bilateral pneumothoraces requiring bilateral chest tubes. 8. Status post cardiac arrest, requiring intubation and mechanical ventilation. 9. Previous episode of respiratory failure requiring tracheostomy and PEG tube placement for prolonged mechanical ventilation. 10.Hypertension. 11.Hyperlipidemia. 12.History of Crohn disease with history of bowel resection and ileostomy. 13.Hypothyroidism. 14.Chronic anemia. 15.Fibromyalgia. 16.Anxiety/depression. PLAN: The patient's overall prognosis is very poor. We added Zosyn to her regimen a couple days back. She has kids and she is a DNR. She is considering hospice therapy. Additional recommendations and suggestions are forthcoming. The patient cannot seem to do without her narcotics. This was one of the things which prevented [facility] from listing her. Additional recommendations are forthcoming. Medications are reviewed. Prognosis is poor. MMODL / IJN: [id number] /
[2019-07-01 12:03] LABS: Glucose,Whole Blood 172 mg/dL (75-99)
--- NOTE | 2019-07-01 12:52 | PN ---
PROGRESS NOTE REQUESTING PHYSICIAN: Dr. Arvizu. The patient is a 59-year-old pleasant white female who comes in with history of Crohn's disease, known to me from her office visits was admitted to the hospital with severe COPD exacerbation and community-acquired pneumonia. The patient has end-stage lung disease, not a candidate for lung transplant and presently considering hospice. The patient met with the hospice nurse yesterday. She wanted to discuss with me possibility of stopping her Crohn's medication at this time. She has been maintained on Humira 40 mg subcu every week for the last 4 years and Purinethol 100 mg daily for almost 15 years duration. During this hospitalization was noted to have anemia with a hemoglobin of 6.5 requiring 1 unit of blood transfusion. She denies any bleeding from the ostomy bag. She is status post subtotal colectomy with ileostomy many years ago. She reports no abdominal pain. No nausea, vomiting. PHYSICAL EXAMINATION: Slightly short of breath. VITAL SIGNS: Stable. Blood pressure is 112/86, pulse rate 84, respirations 20. HEENT: Examination unremarkable. Conjunctivae pink. Sclerae anicteric. Oral cavity no lesions. NECK: No JVD or lymph node enlargement. CHEST: Decreased breath sounds bilaterally. HEART: Regular rate and rhythm. ABDOMEN: Soft. Ileostomy in place, nontender. Bowel sounds are positive. EXTREMITIES: No pedal edema. LABS: WBC 1.2, hemoglobin 8.6, platelets 20,000, bilirubin 2, ALT and AST 28 and 67 respectively. Alkaline phosphatase 182. IMPRESSION: 1. Advanced chronic obstructive pulmonary disease with end-stage lung disease. The patient is considering hospice. 2. History of Crohn's disease maintained on Humira 40 mg every week and Purinethol 100 mg daily for several years. 3. Severe pancytopenia possibility of bone marrow suppression related to 6- mercaptopurine is a possibility. 4. Mild elevation of serum transaminases. RECOMMENDATION: 1. Stop 6-mercaptopurine and Purinethol. 2. Continue with Humira injections once every week. 3. Continue with symptomatic and supportive care and we will follow the patient closely during the hospital stay. Thank you for this consultation. MMODL / IJN: [id number] /
[2019-07-01] MEDS: GABAPENTIN 100 MG CAP PO SCH ×2 (15:49→20:27)
[2019-07-01 17:07] LABS: Glucose,Whole Blood 231 mg/dL (75-99)
--- NOTE | 2019-07-01 17:45 | P.PN ---
Subjective Progress Note Date: 07/01/19 This is a 59-year-old female patient of Dr. James and Dr. 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 Patient is currently on transplant list at [facility] where she was initially evaluated for embolectomy but surgery was canceled. Patient is on the lung transplant list but has to be off Mendon for 6 months and is currently weaning off herself off Mendon and is on 1-3 times a day. Patient was just discharged on 06/06/2006/18/2019 for similar problems with COPD exa cerbation and was discharged to home on oral prednisone, and Zithromax. Patient is not on maintenance oral prednisone at home. She was last seen by Dr. Mistry yesterday, instilled tapering off her prednisone, and was doing okay until early this morning, patient was noticed to be more lethargic, patient stopped breathing or more apneic, however she responds with jerking motion by the , and was more delirious, patient was sent in by the she does not have any fever or chills, however she is febrile coming into the hospital. Patient denies melena and hematochezia, no leg swelling no neck pain no cramps. Patient has significant shortness of breath resting as well as on exertion exertion, she is hearing things that are not there, which is new to her. Patient also was noted to be tachypneic as well as tachycardic, and was noticed to have decreased mentation Emergency room, CAT scan of the chest was also done, that shows advanced emphysematous changes, and the right lung with scattered areas of scarring and/or atelectasis, no recent change from recent study, no new infiltrate or consolidation required EKG shows sinus tach heart rate of 150s troponin was 0.012, [employer] proBNP of 199, AST of 51 elevated ALT 94 elevated alkaline phosphatase 224, EKG on ER, sinus tach with PACs, she was given 1 dose of IV adenosine how I ever the heart rate went back up to 150s, 13 seconds after adenosine. She is on metoprolol 50 mg 3 times a day with missed dose morning of the ER visit 06/28: Patient had episodes of decreased blood pressure and cold sweats. Antibiotics were started improved procalcitonin 3.34. She states she's had more watery stools from ileostomy. Stool to be sent for C. difficile toxin came back negative. Stool for occult blood was positive. Lactic acid was elevated patient has been fluid resuscitated. She is being transfused 1 unit of packed RBCs for hemoglobin of 6.4. Blood sugars are elevated and NPH twice daily added. Cardiology has signed off and will follow on an as-needed basis. Rate is mostly running in the 90s. She has been resumed on her home dose of Lopressor. Patient is followed by Dr. Meza 06/29 patient's vitals obtained today suggest to temp of 97 pulse 97 blood pressure 160-106 saturating 93% on 3 L. Lactic acid has come down to 0.8 patient is noted to have a small ulcer on her colostomy bag, many many will be applied to help with healing of the wound. Fecal occult is positive for blood. With increased lactic acid on admission and a positive fecal occult gastroenterology is consulted for evaluation of GI bleed. Continue patient on IV steroids for COPD exacerbation. Patient is a severe COPD and is in and out of hospital very frequently and is currently under evaluation for lung transplant. Patient did not require BiPAP overnight. 06/30: The patient is tearful during evaluation as she is concerned that her pulse ox continues to be today on the lower side running in the 80s despite 4 L of nasal cannula. She states it started after she was switching from nebulizer back to oxygen and her pulse ox dropped quickly and is not to return to her baseline. She verbalizes understanding that she is at the end stages of life and that her condition will not be improving. She is agreeable for palliative/hospice care referral and meeting. CODE STATUS discussed and patient changed to no code. Patient may benefit from inpatient hospice care at this point. 07/01 patient examined bedside is tearful and would like to gather more information on hospice and were physicians before switching to hospice. Plan for switching to hospice tomorrow. Objective - Vital Signs Vital signs: Vital Signs Temp 97.8 F 07/01/19 14:28 Pulse 84 07/01/19 16:11 Resp 18 07/01/19 15:54 BP 154/92 07/01/19 14:28 Pulse Ox 96 07/01/19 14:28 Intake & Output 06/30/19 07/01/19 07/01/19 18:59 06:59 18:59 Intake Total 240 200 Balance 240 200 Weight 51 kg Intake: Oral 240 200 Other: Voiding Method Bedpan Diaper # Voids 0 2 # Bowel Movements 0 - Exam - Constitutional General appearance: cooperative, no acute distress - EENT Eyes: anicteric sclerae, PERRLA, normal appearance ENT: hearing grossly normal - Neck Neck: no lymphadenopathy, normal ROM, no other, no rigidity, no stridor, no thyromegaly - Respiratory Respiratory: bilateral decreased breath sound b/l with wheezing - Cardiovascular Rhythm: regular Heart sounds: normal: S1, S2 Abnormal Heart Sounds: no systolic murmur, no diastolic murmur, no rub, no S3 Gallop, no S4 Gallop, no click, no other - Gastrointestinal General gastrointestinal: normal bowel sounds, soft, non tender, colostomy in place with 0.5 cm of skin tear - Integumentary Integumentary: no rash - Neurologic Neurologic: CNII-XII intact - Musculoskeletal Musculoskeletal: gait normal, strength equal bilaterally - Psychiatric Psychiatric: A&O x's 3, appropriate affect - Labs CBC & Chem 7: 07/01/19 07:56 07/01/19 07:56 Labs: Abnormal Lab Results - Last 24 Hours (Table) 06/30/19 07/01/19 07/01/19 Range/Units 20:25 07:03 07:56 WBC 1.2 L* (3.8-10.6) k/uL RBC 2.47 L (3.80-5.40) m/uL Hgb 8.6 L (11.4-16.0) gm/dL Hct 26.3 L (34.0-46.0) % MCV 106.6 H (80.0-100.0) fL RDW 20.9 H (11.5-15.5) % Plt Count 20 L (150-450) k/uL Neutrophils # 0.9 L (1.3-7.7) k/uL Lymphocytes # 0.2 L (1.0-4.8) k/uL Macrocytosis Marked A Chloride (98-107) mmol/L Carbon Dioxide (22-30) mmol/L BUN (7-17) mg/dL Glucose (74-99) mg/dL POC Glucose (mg/dL) 290 H 249 H (75-99) mg/dL Calcium (8.4-10.2) mg/dL Total Bilirubin (0.2-1.3) mg/dL AST (14-36) U/L ALT (9-52) U/L Alkaline Phosphatase (38-126) U/L Total Protein (6.3-8.2) g/dL Albumin (3.5-5.0) g/dL 07/01/19 07/01/19 07/01/19 Range/Units 07:56 12:01 17:05 WBC (3.8-10.6) k/uL RBC (3.80-5.40) m/uL Hgb (11.4-16.0) gm/dL Hct (34.0-46.0) % MCV (80.0-100.0) fL RDW (11.5-15.5) % Plt Count (150-450) k/uL Neutrophils # (1.3-7.7) k/uL Lymphocytes # (1.0-4.8) k/uL Macrocytosis Chloride 97 L (98-107) mmol/L Carbon Dioxide 40 H (22-30) mmol/L BUN 21 H (7-17) mg/dL Glucose 228 H (74-99) mg/dL POC Glucose (mg/dL) 172 H 231 H (75-99) mg/dL Calcium 8.1 L (8.4-10.2) mg/dL Total Bilirubin 2.0 H (0.2-1.3) mg/dL AST 38 H (14-36) U/L ALT 67 H (9-52) U/L Alkaline Phosphatase 181 H (38-126) U/L Total Protein 4.5 L (6.3-8.2) g/dL Albumin 2.4 L (3.5-5.0) g/dL Assessment and Plan Plan: 1. Acute respiratory failure with hypercarbic respiratory failure, and delirium, with transient low-grade temp looks like patient received BiPAP treatments currentlybipap on standby off BiPAP treatments patient is at risk for spontaneous pneumothorax,, O2, IV steroids, proalcitonin levels lactic acid levels, IV fluids, proBNP is normal, consult with Dr. Meza appreciated 2. Acute exacerbation advanced end-stage COPD. patient is a candidate for lung transplant but has to be off narcotics which she is unable to. Pulmonary medicine consult appreciated. Initiated on DuoNeb treatments, Symbicort, Solu- Medrol, CT suggests a severe emphysema with massive lung bullae seen in the right upper lobe tracheal bronchomalacia. Patient is at high risk of nosocomial infections bilateral currently is on stable to be discharged home will switch patient to IV steroids and continue the care unless patient is stable to be discharged she is a poor prognosis and needs evaluation for hospice but patient is currently refusing 3. Pancytopenia, probably related to prednisone dose, and chronic use of DMARD, patient is on Humira every Monday, which is on hold, until pneumonia is completely ruled out await pro-calcitonin levels globulin levels AG and a will be obtained, 4. Advanced end-stage COPD with large bulla on the right upper lobe multiple ruptured bulla and spontaneous pneumothorax in the past, stable. Patient is working with with [facility] transplant team. 5. Chronic hypoxemic and hypercapneic respiratory failure requiring mechanical ventilation in the past and Trach which has since removed. Patient follows with Dr. Mistry on a regular basis. Patient has home O2 at 4 L nasal cannula. 6. History of Crohn's colitis status post subtotal colectomy and ostomy. Patient is to continue Humira, mercaptopurine, Levsin. currently stable. 7. Moderate protein calorie malnutrition. Continue with protein supplement. 8. H/O critical illness myopathy post IVIG infusion. 9.. Generalized anxiety disorder. Continue BuSpar to 10 mg orally twice every day and decrease Cymbalta to 30 every 48 hours 10. Fibromyalgia with bilateral neuropathy. Continue with Gabapentin reduced 200 mg 3 times a day 11. Sinus tachycardia. Continue Metoprolol 50 mg orally tid. 12. Vitamin D deficiency. 13. B12 deficiency. Continue with B12 1000 mcg sc q month. 14. Glaucoma. Continue Xalatan. 15. Hypomagnesemia. Continue with magnesium oxide. 16. Chronic pain on Mendon 10 mg every 8 hours. Patient states she needs to be weaned off this for 6 months prior to transplant. Mendon 10 mg every 6 hours as needed. Patient states that she cannot go past abstaining 3 days of her Mendon, patient goes into withdrawal, she still has to see pain management for opiate wean 17. DVT prophylaxis. continue Lovenox 40 mg subcutaneously every day. 18. GI prophylaxis. Continue Carafate. 19. Elevated liver function tests. Recheck in the morning. Acute hepatitis panel was negative last admission and liver ultrasound were negative repeat CMP tomorrow CODE STATUS: DO NOT RESUSCITATE Discharge plan: Plan for hospice tomorrow
[2019-07-01] MEDS: MIRTAZAPINE 15 MG TAB PO SCH (18:12)
[2019-07-01] MEDS: LEVOFLOXACIN 500 MG TAB PO SCH (18:12)
[2019-07-01 20:17] LABS: Glucose,Whole Blood 304 mg/dL (75-99)
[2019-07-01] MEDS: MELATONIN 5 MG TABLET PO PRN (20:23)
[2019-07-01] MEDS: ALPRAZolam 0.25 MG TAB PO PRN (20:23)
[2019-07-01] MEDS: LATANOPROST 0.005% OPHTH DROPS 2.5 ML BTL BOTH EYES SCH (20:24)
[2019-07-02] MEDS: HYDROcodone/APAP 10-325MG 1 EACH TAB PO PRN ×4 (05:33→19:08)
[2019-07-02] MEDS: methylPREDNISolone SOD SUCCI 125 MG/2 ML VIAL IV SCH ×4 (05:33→23:49)
[2019-07-02] MEDS: IPRATROPIUM-ALBUTEROL 3 ML NEB INHALATION PRN ×3 (07:22→19:52)
[2019-07-02 07:24] LABS: Glucose,Whole Blood 231 mg/dL (75-99)
[2019-07-02] MEDS: INSULIN ASPART (NovoLOG) 100 UNIT/ML VIAL SQ SCH ×4 (07:41→21:49)
[2019-07-02] MEDS: DIPHENOX-ATROP 2.5-0.025 MG 1 EACH TAB PO SCH ×3 (07:42→22:27)
[2019-07-02] MEDS: INSULIN NPH 300 UNIT/3 ML VIAL SQ SCH ×2 (07:42→21:49)
[2019-07-02] MEDS: CHOLECALCIFEROL 1,000 UNIT TAB PO SCH (07:42)
[2019-07-02] MEDS: CALCIUM CARBONATE 500 MG CHEWABLE PO SCH ×2 (07:42→22:26)
[2019-07-02] MEDS: PANTOPRAZOLE 40 MG TABLET PO SCH (07:43)
[2019-07-02] MEDS: GABAPENTIN 100 MG CAP PO SCH ×3 (07:43→22:27)
[2019-07-02] MEDS: MAGNESIUM OXIDE 400 MG TAB PO SCH (07:43)
[2019-07-02] MEDS: PIPERACILLIN-TAZOBACTAM 3.375 GM in SODIUM CHLORIDE 0.9% 100 ML IVPB SCH ×3 (07:43→23:49)
[2019-07-02] MEDS: METOPROLOL TARTRATE 50 MG TAB PO SCH ×3 (07:43→22:27)
[2019-07-02] MEDS: NYSTATIN 100,000 UNIT/ML SUSP 500,000 UNIT/5 ML CUP PO SCH ×4 (07:43→22:28)
[2019-07-02] MEDS: MULTIVITAMINS, THERA 1 EACH TAB PO SCH ×2 (07:43→22:27)
[2019-07-02] MEDS: LIDOCAINE 5% PATCH TOPICAL SCH (07:44)
[2019-07-02] MEDS: SODIUM CHLORIDE 0.9% 1,000 ML IV SCH ×3 (07:47→23:50)
[2019-07-02 08:46] LABS: ALT 89 U/L (9-52); AST 50 U/L (14-36); African American GFR (CKD) >90 (>60 ml/min/1.73 sqM); Albumin 2.5 g/dL (3.5-5.0); Alkaline Phosphatase 184 U/L (38-126); Anion Gap 2 mmol/L; Anisocytosis Slight; Basophils % (A) 0 %; Blood Urea Nitrogen 25 mg/dL (7-17); Carbon Dioxide 40 mmol/L (22-30); Chloride 96 mmol/L (98-107); Eosinophils % (A) 2 %; Glucose 300 mg/dL (74-99); HCT 28.3 % (34.0-46.0); Hypochromasia Moderate; Lymphocytes # (A) 0.2 k/uL (1.0-4.8); Lymphocytes % (A) 10 %; MCH 34.4 pg (25.0-35.0); MCHC 31.9 g/dL (31.0-37.0); MCV 107.9 fL (80.0-100.0); Macrocytosis Marked; Mean Platelet Volume 10.7; Monocytes # (A) 0.1 k/uL (0-1.0); Monocytes % (A) 3 %; Neutrophils # (A) 1.4 k/uL (1.3-7.7); Neutrophils % (A) 85 %; Poikilocytosis Slight; Potassium 3.7 mmol/L (3.5-5.1); RBC 2.62 m/uL (3.80-5.40); RDW 19.8 % (11.5-15.5); Sodium 138 mmol/L (137-145); Total Bilirubin 2.5 mg/dL (0.2-1.3); Total Protein 4.6 g/dL (6.3-8.2); WBC 1.7 k/uL (3.8-10.6)
[2019-07-02 08:56] LABS: Platelet Count 20 k/uL (150-450)
[2019-07-02 10:19] LABS: Tear Drop Cells Present
[2019-07-02 12:12] LABS: Glucose,Whole Blood 245 mg/dL (75-99)
--- NOTE | 2019-07-02 13:14 | P.PN ---
Subjective Progress Note Date: 07/02/19 Principal diagnosis: Acute exacerbation of severe chronic obstructive pulmonary disease. This is a 59-year-old white female patient of Dr. James, severe chronic obstructive pulmonary disease with baseline FEV1 of 36% of predicted, bolus emphysema with previous history of spontaneous pneumothoraces requiring chest tube placement. Patient has been evaluated for lung transplantation at [facility], that she was not a good candidate for lung reduction procedure. For now she is being investigated for lung transplantation. Other medical history includes Crohn's disease with history of ileostomy and a total colectomy, chronic hypoxemic respiratory failure patient usually wears 4 L of oxygen by nasal cannula, previous history of rest or a failure requiring mechanical ventilation. He had the recent hospitalizations in April and May of this year for COPD exacerbation, she was seen in follow-up by Dr. Mistry in the office on 06/26/2019, and patient was stable, without any active signs of exacerbation. On 06/18/2019 patient states she was hearing things that were not there, and apparently her noticed her breathing heavier. She states that there is no fever or chills, no increased cough or congestion. Patient took one breathing treatment prior to calling EMS, when the EMS responded patient's O2 saturation was in the mid 80s, she was noted to be dyspneic, tachycardic with a heart rate in the 160s and 180s. Patient was given a dose of adenosine, the heart rate did slow down briefly but then the tachycardia resumed at a rate of 150. EKG showed sinus tachycardia with a rate of 152, without acute ischemic changes. Chest x-ray was obtained showing suspicion for left apical pneumothorax, this was followed up with the CT chest showing advanced emphysematous changes greater in the right lung with scattered areas of scarring and/or atelectasis, with no significant change from most recent study no new infiltrate or consolidation. Patient was placed on BiPAP support, she was given extra dose of metoprolol, she was started on IV steroids, nebulized bronchodilators. We're seeing this patient for evaluation of increased shortness of breath. Lab work showed a white blood cell count of 2.1, hemoglobin of 8.4, serum sodium is 140, potassium is 3.9, chloride is 91, CO2 is 46, B1 is 22, creatinine 0.63, troponin was negative 1, proBNP was within normal limits at 199. Patient is seen today on 07/02/2018 in follow-up on the regular medical floor. She is currently awake and alert in no acute distress. Resting fairly comfortably in bed. She is still very dyspneic with minimal exertion. Dyspneic with conversation. Maintaining O2 saturations in the upper 90s on 3 L/m per nasal cannula. She's afebrile. Hemodynamically stable. Sputum culture pending. White count 1.7. Hemoglobin 9.0. Platelet count 20,000. Creatinine 0.64. She is currently on DuoNeb inhalations, IV Solu-Medrol. Antibiotics in the form of Zosyn and Levaquin. She is expressing interest in going home tomorrow with hospice. Objective - Vital Signs Vital signs: Vital Signs Temp 97.8 F 07/02/19 07:19 Pulse 100 07/02/19 07:33 Resp 18 07/02/19 08:00 BP 141/82 07/02/19 07:19 Pulse Ox 96 07/02/19 07:19 Intake & Output 07/01/19 07/02/19 07/02/19 18:59 06:59 18:59 Intake Total 300 Balance 300 Weight 51 kg Intake: Oral 300 Other: Voiding Method Bedpan Bedpan Bedpan Diaper Diaper Diaper # Voids 2 2 # Bowel Movements 1 - Exam GENERAL EXAM: Alert, 51-year-old female patient, on 3 L/m per nasal cannula. HEAD: Normocephalic/atraumatic. EYES: Normal reaction of pupils, equal size. Conjunctiva pink, sclera white. NOSE: Clear with pink turbinates. THROAT: No erythema or exudates. NECK: No masses, no JVD, no thyroid enlargement, no adenopathy. CHEST: No chest wall deformity. Symmetrical expansion. LUNGS: Equal air entry with diminished breath sounds bilaterally CVS: Regular rate and rhythm, normal S1 and S2, no gallops, no murmurs, no rubs ABDOMEN: Soft, nontender. No hepatosplenomegaly, normal bowel sounds, no guarding or rigidity. Ileostomy is in place EXTREMITIES: No clubbing, no edema, no cyanosis, 2+ pulses and upper and lower extremities. MUSCULOSKELETAL: Muscle strength and tone normal. SPINE: No scoliosis or deformity SKIN: No rashes CENTRAL NERVOUS SYSTEM: No focal deficits, tone is normal in all 4 extremities. PSYCHIATRIC: Alert and oriented -3. Appropriate affect. Intact judgment and insight. - Labs CBC & Chem 7: 07/02/19 08:09 07/02/19 08:09 Labs: Abnormal Lab Results - Last 24 Hours (Table) 07/01/19 07/01/19 07/02/19 Range/Units 17:05 20:15 07:18 WBC (3.8-10.6) k/uL RBC (3.80-5.40) m/uL Hgb (11.4-16.0) gm/dL Hct (34.0-46.0) % MCV (80.0-100.0) fL RDW (11.5-15.5) % Plt Count (150-450) k/uL Lymphocytes # (1.0-4.8) k/uL Macrocytosis Chloride (98-107) mmol/L Carbon Dioxide (22-30) mmol/L BUN (7-17) mg/dL Glucose (74-99) mg/dL POC Glucose (mg/dL) 231 H 304 H 231 H (75-99) mg/dL Calcium (8.4-10.2) mg/dL Total Bilirubin (0.2-1.3) mg/dL AST (14-36) U/L ALT (9-52) U/L Alkaline Phosphatase (38-126) U/L Total Protein (6.3-8.2) g/dL Albumin (3.5-5.0) g/dL 07/02/19 07/02/19 07/02/19 Range/Units 08:09 08:09 12:09 WBC 1.7 L (3.8-10.6) k/uL RBC 2.62 L (3.80-5.40) m/uL Hgb 9.0 L (11.4-16.0) gm/dL Hct 28.3 L (34.0-46.0) % MCV 107.9 H (80.0-100.0) fL RDW 19.8 H (11.5-15.5) % Plt Count 20 L (150-450) k/uL Lymphocytes # 0.2 L (1.0-4.8) k/uL Macrocytosis Marked A Chloride 96 L (98-107) mmol/L Carbon Dioxide 40 H (22-30) mmol/L BUN 25 H (7-17) mg/dL Glucose 300 H (74-99) mg/dL POC Glucose (mg/dL) 245 H (75-99) mg/dL Calcium 8.0 L (8.4-10.2) mg/dL Total Bilirubin 2.5 H (0.2-1.3) mg/dL AST 50 H (14-36) U/L ALT 89 H (9-52) U/L Alkaline Phosphatase 184 H (38-126) U/L Total Protein 4.6 L (6.3-8.2) g/dL Albumin 2.5 L (3.5-5.0) g/dL Microbiology - Last 24 Hours (Table) 06/29/19 09:20 Gram Stain - Preliminary Sputum Sputum Culture - Preliminary Assessment and Plan Assessment: Assessment: #1. Acute exacerbation of chronic obstructive pulmonary disease, chest x-ray and CT chest showed chronic changes, without evidence of acute pulmonary process area though follow-up chest x-ray on 06/29/2019 revealed some left mid and lower lung airspace disease. Currently on Zosyn and Levaquin. #2. Acute on chronic hypoxic respiratory failure secondary to the above #3. Chronic hypercapnic respiratory failure related to advanced COPD #4. SVT, tachycardia, possibly related to nebulized treatments, and acute hypoxia, improved, troponin was negative, and ALLERGIES following #5. History of severe bullous emphysema, the patient has a large bulla occupying a large portion of the right lung field and it is not of chronic left upper lobe cavitation lesion. This has previously been seen on CT scans and chest x-rays, and appears to be stable in appearance. Patient has been referred for lung transplantation surgery at [facility] #6. Chronic hypoxemic respiratory failure related to advanced COPD/emphysema, with baseline FEV1 value of 36% of predicted, stage III COPD, oxygen and prednisone dependent #7. History of bilateral pneumothoraces requiring placement of bilateral chest tubes. #8. History of brief cardiac arrest following spontaneous pneumothoraces, requiring intubation and placement on mechanical ventilation, recovered #9. Past episodes of pneumonia requiring intubation and mechanical ventilation, tracheostomy placement of PEG tube placement and patient had since been weaned off and decannulated #10. Chronic left upper lobe inflammatory opacity #11. Hypertension #12. Hyperlipidemia #13. Crohn's disease with history of bowel resection and creation of ileostomy #14. Hypothyroidism #15. Chronic anemia #16. Fibromyalgia #17. Anxiety/depression Plan: The patient was seen and evaluated by Dr. Mistry. We will continue the curren t treatment plan for now. She is having discussions for possible home tomorrow with hospice. I, the cosigning physician, performed a history & physical examination of the patient. Lungs sounds are clear but diminished. Maintaining good O2 saturations in the 90s on currently 40% FiO2. I discussed the assessment and plan of care with my nurse practitioner, Trinity Kay. I attest to the above note as dictated by her.
--- NOTE | 2019-07-02 14:37 | P.PN ---
Subjective Progress Note Date: 07/02/19 This is a 59-year-old female patient of Dr. James and Dr. 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 Patient is currently on transplant list at [facility] where she was initially evaluated for embolectomy but surgery was canceled. Patient is on the lung transplant list but has to be off [place] for 6 months and is currently weaning off herself off [place] and is on 1-3 times a day. Patient was just discharged on 06/06/2006/18/2019 for similar problems with COPD exa cerbation and was discharged to home on oral prednisone, and Zithromax. Patient is not on maintenance oral prednisone at home. She was last seen by Dr. Mistry yesterday, instilled tapering off her prednisone, and was doing okay until early this morning, patient was noticed to be more lethargic, patient stopped breathing or more apneic, however she responds with jerking motion by the , and was more delirious, patient was sent in by the she does not have any fever or chills, however she is febrile coming into the hospital. Patient denies melena and hematochezia, no leg swelling no neck pain no cramps. Patient has significant shortness of breath resting as well as on exertion exertion, she is hearing things that are not there, which is new to her. Patient also was noted to be tachypneic as well as tachycardic, and was noticed to have decreased mentation Emergency room, CAT scan of the chest was also done, that shows advanced emphysematous changes, and the right lung with scattered areas of scarring and/or atelectasis, no recent change from recent study, no new infiltrate or consolidation required EKG shows sinus tach heart rate of 150s troponin was 0.012, LEATHER STRETCHER proBNP of 199, AST of 51 elevated ALT 94 elevated alkaline phosphatase 224, EKG on ER, sinus tach with PACs, she was given 1 dose of IV adenosine how I ever the heart rate went back up to 150s, 13 seconds after adenosine. She is on metoprolol 50 mg 3 times a day with missed dose morning of the ER visit 06/28: Patient had episodes of decreased blood pressure and cold sweats. Antibiotics were started improved procalcitonin 3.34. She states she's had more watery stools from ileostomy. Stool to be sent for C. difficile toxin came back negative. Stool for occult blood was positive. Lactic acid was elevated patient has been fluid resuscitated. She is being transfused 1 unit of packed RBCs for hemoglobin of 6.4. Blood sugars are elevated and NPH twice daily added. Cardiology has signed off and will follow on an as-needed basis. Rate is mostly running in the 90s. She has been resumed on her home dose of Lopressor. Patient is followed by Dr. Meza 06/29 patient's vitals obtained today suggest to temp of 97 pulse 97 blood pressure 160-106 saturating 93% on 3 L. Lactic acid has come down to 0.8 patient is noted to have a small ulcer on her colostomy bag, many many will be applied to help with healing of the wound. Fecal occult is positive for blood. With increased lactic acid on admission and a positive fecal occult gastroenterology is consulted for evaluation of GI bleed. Continue patient on IV steroids for COPD exacerbation. Patient is a severe COPD and is in and out of hospital very frequently and is currently under evaluation for lung transplant. Patient did not require BiPAP overnight. 06/30: The patient is tearful during evaluation as she is concerned that her pulse ox continues to be today on the lower side running in the 80s despite 4 L of nasal cannula. She states it started after she was switching from nebulizer back to oxygen and her pulse ox dropped quickly and is not to return to her baseline. She verbalizes understanding that she is at the end stages of life and that her condition will not be improving. She is agreeable for palliative/hospice care referral and meeting. CODE STATUS discussed and patient changed to no code. Patient may benefit from inpatient hospice care at this point. 07/01 patient examined bedside is tearful and would like to gather more information on hospice and were physicians before switching to hospice. Plan for switching to hospice tomorrow. 07/02: Patient has met with [facility] with plan for home with hospice. Patient wishes to stay until tomorrow. We will plan for discharge home tomorrow. Sputum culture is currently pending. Objective - Vital Signs Vital signs: Vital Signs Temp 97.5 F L 07/02/19 13:34 Pulse 92 07/02/19 13:34 Resp 18 07/02/19 13:34 BP 150/93 07/02/19 13:34 Pulse Ox 95 07/02/19 13:34 Intake & Output 07/01/19 07/02/19 07/02/19 18:59 06:59 18:59 Intake Total 300 850 Balance 300 850 Weight 51 kg Intake: Oral 300 850 Other: Voiding Method Bedpan Bedpan Bedpan Diaper Diaper Diaper # Voids 2 2 1 # Bowel Movements 1 - Exam Review of Systems Constitutional: Reports as per HPI, Denies anorexia, reports chills, reports cold sweats Denies chronic headaches, Denies chronic pain, Denies daytime sleepiness, Denies fatigue, Denies fever, Denies lethargy, Denies malaise, Denies night sweats, Denies poor appetite, Denies sweats, Denies weakness, Denies weight gain, Denies weight loss Ears, nose, mouth and throat: Reports as per HPI, Denies ant. neck pain, Denies bleeding gums, Denies dental pain, Denies dysphagia, Denies epistaxis, Denies headache, Denies hoarseness, Denies mouth pain, Denies nasal congestion, Denies nasal discharge, Denies neck fullness/pressure, Denies neck lump, Denies nose pain, Denies odynophagia, Denies post-nasal drip, Denies sinus pain, Denies sinus pressure, Denies swelling in mouth, Denies swelling in throat, Denies sore throat, Denies vertigo, Denies voice changes Cardiovascular: Reports as per HPI, Reports chest pain, Reports decreased exercise tolerance, Reports dyspnea on exertion, Reports irregular heart beat, Reports rapid heart beat, Reports shortness of breath Respiratory: Reports as per HPI Gastrointestinal: Reports as per HPI Genitourinary: Reports as per HPI Menstruation: Reports as per HPI, Denies amenorrhea, Denies amenorrhea on BC, Denies currently menstrual, Denies cycle < 21 days, Denies cycle > 35 days, Denies cycle variable, Denies menses 1-7 days, Denies menses 8 or > days, Denies menses variable, Denies period heavy, Denies period light, Denies period normal, Denies period spotting, Denies post hysterectomy, Denies postmenopausal, Denies premenarcheal Musculoskeletal: Reports as per HPI, Denies arm numbness/tingling, Denies atrophy, Denies fractures, Denies frequent falls, Denies gait dysfunction, Denies hot joints, Denies leg numbness/tingling, Denies limitation of motion, Denies loss of height, Denies low back pain, Denies morning stiffness, Denies muscle cramps, Denies muscle weakness, Denies myalgias, Denies neck pain, Denies neck stiffness, Denies prior amputations, Denies redness of joints, Denies shooting arm pain, Denies shooting leg pain Integumentary: Reports as per HPI, Denies acne, Denies boils, Denies brittle nails, Denies change in hair/nails, Denies color changes, Denies darkening of skin, Denies depigmentation, Denies dryness, Denies foot/leg ulcers, Denies growths, Denies hirsutism, Denies lesions, Denies onychomycosis, Denies pruritus, Denies rash, Denies sores, Denies striae, Denies unusual bruising, Denies wounds Neurological: Reports as per HPI, Reports tremors, Reports weakness, Denies aphasia, Denies ataxia, Denies balance difficulties, Denies burning pain, Denies change in mentation, Denies change in smell/taste, Denies change in speech, Denies confusion, Denies convulsions, Denies double vision, Denies gait dysfu nction, Denies head injury, Denies headaches, Denies hearing difficulties, Denies lack of coordination, Denies loss of vision, Denies memory loss, Denies migraines, Denies motor disturbance, Denies numbness, Denies paralysis, Denies paresthesias, Denies seizures, Denies sensory deficit, Denies spasticity, Denies syncope, Denies tic, Denies tingling, Denies transient paralysis, Denies vertigo, Denies visual changes Psychiatric: Reports anxiety, reports depression Endocrine: Reports elevated blood sugars Hematologic/Lymphatic: Reports as per HPI, Denies easy bleeding, Denies easy bruising, Denies lymphadenopathy, Denies lymphedema, Denies thrombophilia Allergic/Immunologic: Reports as per HPI, Denies allergic rhinitis, Denies anaphylaxis, Denies angioedema, Denies gluten intolerance, Denies persistent infections, Denies seasonal allergies, Denies urticaria, Denies wheezing - Constitutional General appearance: cooperative, no acute distress - EENT Eyes: anicteric sclerae, PERRLA, dentition normal, normal appearance ENT: NA/AT, normal oropharynx - Neck Neck: normal ROM Thyroid: bilateral: normal size, negative: enlarged, firm - Respiratory Respiratory: bilateral: CTA, negative: diminished, scattered bilateral crackles - Cardiovascular Rhythm: regular Heart sounds: normal: S1, S2 Abnormal Heart Sounds: no systolic murmur, no diastolic murmur, no rub, no S3 Gallop, no S4 Gallop, no click, no other - Gastrointestinal General gastrointestinal: normal bowel sounds, soft - Integumentary Integumentary: decreased turgor, normal - Neurologic Neurologic: CNII-XII intact - Musculoskeletal Musculoskeletal: gait normal, generalized weakness, strength equal bilaterally - Psychiatric Psychiatric: A&O x's 3, appropriate affect, intact judgment & insight - Labs CBC & Chem 7: 07/02/19 08:09 07/02/19 08:09 Labs: Abnormal Lab Results - Last 24 Hours (Table) 07/01/19 07/01/19 07/02/19 Range/Units 17:05 20:15 07:18 WBC (3.8-10.6) k/uL RBC (3.80-5.40) m/uL Hgb (11.4-16.0) gm/dL Hct (34.0-46.0) % MCV (80.0-100.0) fL RDW (11.5-15.5) % Plt Count (150-450) k/uL Lymphocytes # (1.0-4.8) k/uL Macrocytosis Chloride (98-107) mmol/L Carbon Dioxide (22-30) mmol/L BUN (7-17) mg/dL Glucose (74-99) mg/dL POC Glucose (mg/dL) 231 H 304 H 231 H (75-99) mg/dL Calcium (8.4-10.2) mg/dL Total Bilirubin (0.2-1.3) mg/dL AST (14-36) U/L ALT (9-52) U/L Alkaline Phosphatase (38-126) U/L Total Protein (6.3-8.2) g/dL Albumin (3.5-5.0) g/dL 07/02/19 07/02/19 07/02/19 Range/Units 08:09 08:09 12:09 WBC 1.7 L (3.8-10.6) k/uL RBC 2.62 L (3.80-5.40) m/uL Hgb 9.0 L (11.4-16.0) gm/dL Hct 28.3 L (34.0-46.0) % MCV 107.9 H (80.0-100.0) fL RDW 19.8 H (11.5-15.5) % Plt Count 20 L (150-450) k/uL Lymphocytes # 0.2 L (1.0-4.8) k/uL Macrocytosis Marked A Chloride 96 L (98-107) mmol/L Carbon Dioxide 40 H (22-30) mmol/L BUN 25 H (7-17) mg/dL Glucose 300 H (74-99) mg/dL POC Glucose (mg/dL) 245 H (75-99) mg/dL Calcium 8.0 L (8.4-10.2) mg/dL Total Bilirubin 2.5 H (0.2-1.3) mg/dL AST 50 H (14-36) U/L ALT 89 H (9-52) U/L Alkaline Phosphatase 184 H (38-126) U/L Total Protein 4.6 L (6.3-8.2) g/dL Albumin 2.5 L (3.5-5.0) g/dL Microbiology - Last 24 Hours (Table) 06/29/19 09:20 Gram Stain - Preliminary Sputum Sputum Culture - Preliminary Assessment and Plan Plan: 1. Acute respiratory failure with hypercarbic respiratory failure, and delirium, with transient low-grade temp looks like patient received BiPAP treatments currentlybipap on standby off BiPAP treatments patient is at risk for spontaneous pneumothorax, O2, IV steroids, proalcitonin levels lactic acid lev els, proBNP is normal, consult with Dr. Meza appreciated 2. Acute exacerbation advanced end-stage COPD. patient is a candidate for lung transplant but has to be off narcotics which she is unable to. Pulmonary medicine consult appreciated. Initiated on DuoNeb treatments, Symbicort, Solu- Medrol, CT suggests a severe emphysema with massive lung bullae seen in the right upper lobe tracheal bronchomalacia. Patient is at high risk of nosocomial infections bilateral currently is on stable to be discharged home will switch patient to IV steroids and continue the care unless patient is stable to be discharged she is a poor prognosis and needs evaluation for hospice but patient is currently refusing 3. Pancytopenia, probably related to prednisone dose, and chronic use of DMARD, patient is on Humira every Monday, which is on hold, until pneumonia is completely ruled out await pro-calcitonin levels globulin levels AG and a will be obtained, 4. Advanced end-stage COPD with large bulla on the right upper lobe multiple ruptured bulla and spontaneous pneumothorax in the past, stable. Patient is working with with [facility] transplant team. 5. Chronic hypoxemic and hypercapneic respiratory failure requiring mechanical ventilation in the past and Trach which has since removed. Patient follows with Dr. Mistry on a regular basis. Patient has home O2 at 4 L nasal cannula. 6. History of Crohn's colitis status post subtotal colectomy and ostomy. Patient is to continue Humira, mercaptopurine, Levsin. currently stable. 7. Moderate protein calorie malnutrition. Continue with protein supplement. 8. H/O critical illness myopathy post IVIG infusion. 9.. Generalized anxiety disorder. Continue BuSpar to 10 mg orally twice every day and Cymbalta 30 mg daily. 10. Fibromyalgia with bilateral neuropathy. Continue with Gabapentin 300 mg orally tid. 11. Sinus tachycardia. Continue Metoprolol 50 mg orally tid. 12. Vitamin D deficiency. 13. B12 deficiency. Continue with B12 1000 mcg sc q month. 14. Glaucoma. Continue Xalatan. 15. Hypomagnesemia. Continue with magnesium oxide. 16. Chronic pain on [place] 10 mg every 8 hours. Patient states she needs to be weaned off this for 6 months prior to transplant. [place] 10 mg every 6 hours as needed. Patient states that she cannot go past abstaining 3 days of her [place], patient goes into withdrawal, she still has to see pain management for opiate wean 17. DVT prophylaxis. continue Lovenox 40 mg subcutaneously every day. 18. GI prophylaxis. Continue Carafate. 19. Elevated liver function tests. Recheck in the morning. Acute hepatitis panel was negative last admission and liver ultrasound were negative repeat CMP tomorrow CODE STATUS: No code Discharge plan: Home with [facility] care tomorrow Impression and plan of care have been directed as dictated by the signing physician. Gaby Rothman nurse practitioner acting as scribe for signing physician.
[2019-07-02 16:52] LABS: Glucose,Whole Blood 80 mg/dL (75-99)
[2019-07-02] MEDS: LEVOFLOXACIN 500 MG TAB PO SCH (19:06)
[2019-07-02] MEDS: MIRTAZAPINE 15 MG TAB PO SCH (19:07)
[2019-07-02 21:21] LABS: Glucose,Whole Blood 309 mg/dL (75-99)
[2019-07-02 21:23] VITALS: RESP 16
--- NOTE | 2019-07-02 22:00 | PN ---
PROGRESS NOTE The patient is a 59-year-old pleasant white female with end-stage lung disease, presently enrolled in hospice today. She is being seen for management of Crohn's ileitis. She denies any new symptoms today. Denies any bleeding in the colostomy bag. She does complain of some right lower quadrant abdominal discomfort. Remains on Humira once every week. The 6-mercaptopurine was discontinued yesterday. No new complaints. PHYSICAL EXAMINATION: Appears comfortable. VITAL SIGNS: Stable. Blood pressure 150/90, pulse 92, temperature 97.5. HEENT examination unremarkable. Conjunctivae pink. Sclerae anicteric. Oral cavity no lesions. NECK: No jugular venous distention or lymph node enlargement. CHEST: Clear to auscultation and discussion. Decreased breath sounds bilaterally. HEART: Regular rate and rhythm. ABDOMEN: Soft. Ileostomy in place. It was benign. Bowel sounds are positive. EXTREMITIES: No pedal edema. NEUROLOGIC: Alert and oriented x3. No focal deficits. IMPRESSION: 1. End-stage lung disease secondary to advanced chronic obstructive pulmonary disease, not a candidate for lung transplant presently. Enrolled into hospice. 2. Pancytopenia, probably medication related. 6-mercaptopurine has been on hold since yesterday. 3. History of Crohn's disease on Humira 40 mg subcutaneously once every week. 4. Elevated serum transaminases which are gradually worsening, probably medication related, but part of it could be related to primary sclerosing cholangitis. RECOMMENDATIONS: 1. Continue with symptomatic and supportive care. 2. Stop 6-mercaptopurine. 3. Continue with Humira. 4. Continue tinc of opium for diarrhea and we will follow the patient during the hospital stay. MMODL / IJN: [id number] /
[2019-07-02] MEDS: LATANOPROST 0.005% OPHTH DROPS 2.5 ML BTL BOTH EYES SCH (22:27)
[2019-07-02] MEDS: ALPRAZolam 0.25 MG TAB PO PRN (23:49)
[2019-07-02] MEDS: MELATONIN 5 MG TABLET PO PRN (23:49)
[2019-07-03] MEDS: HYDROcodone/APAP 10-325MG 1 EACH TAB PO PRN ×3 (03:07→12:16)
[2019-07-03] MEDS: methylPREDNISolone SOD SUCCI 125 MG/2 ML VIAL IV SCH ×2 (05:40→12:10)
[2019-07-03 05:44] VITALS: BP 158/94; TEMP 98.1
[2019-07-03 06:59] LABS: Glucose,Whole Blood 224 mg/dL (75-99)
[2019-07-03] MEDS: IPRATROPIUM-ALBUTEROL 3 ML NEB INHALATION PRN (07:09)
[2019-07-03 07:23] VITALS: PULSE 98
[2019-07-03] MEDS: PIPERACILLIN-TAZOBACTAM 3.375 GM in SODIUM CHLORIDE 0.9% 100 ML IVPB SCH (08:08)
[2019-07-03] MEDS: LIDOCAINE 5% PATCH TOPICAL SCH (08:08)
[2019-07-03] MEDS: NYSTATIN 100,000 UNIT/ML SUSP 500,000 UNIT/5 ML CUP PO SCH ×2 (08:08→12:17)
[2019-07-03] MEDS: INSULIN ASPART (NovoLOG) 100 UNIT/ML VIAL SQ SCH ×2 (08:08→12:16)
[2019-07-03] MEDS: SODIUM CHLORIDE 0.9% 1,000 ML IV SCH (08:09)
[2019-07-03] MEDS: CALCIUM CARBONATE 500 MG CHEWABLE PO SCH (08:09)
[2019-07-03] MEDS: PANTOPRAZOLE 40 MG TABLET PO SCH (08:09)
[2019-07-03] MEDS: DIPHENOX-ATROP 2.5-0.025 MG 1 EACH TAB PO SCH (08:09)
[2019-07-03] MEDS: MAGNESIUM OXIDE 400 MG TAB PO SCH (08:09)
[2019-07-03] MEDS: CHOLECALCIFEROL 1,000 UNIT TAB PO SCH (08:09)
[2019-07-03] MEDS: GABAPENTIN 100 MG CAP PO SCH (08:09)
[2019-07-03] MEDS: MULTIVITAMINS, THERA 1 EACH TAB PO SCH (08:09)
[2019-07-03] MEDS: METOPROLOL TARTRATE 50 MG TAB PO SCH (08:09)
[2019-07-03] MEDS: INSULIN NPH 300 UNIT/3 ML VIAL SQ SCH (08:11)
[2019-07-03 11:27] VITALS: BMI 20.1
[2019-07-03 12:07] LABS: Glucose,Whole Blood 227 mg/dL (75-99)
--- NOTE | 2019-07-03 13:18 | P.PN ---
<Trinity Kay - Last Filed: 07/03/19 13:13> Subjective Progress Note Date: 07/03/19 Principal diagnosis: Acute exacerbation of severe chronic obstructive pulmonary disease. This is a 59-year-old white female patient of Dr. James, severe chronic obstructive pulmonary disease with baseline FEV1 of 36% of predicted, bolus emphysema with previous history of spontaneous pneumothoraces requiring chest tube placement. Patient has been evaluated for lung transplantation at [facility], that she was not a good candidate for lung reduction procedure. For now she is being investigated for lung transplantation. Other medical history includes Crohn's disease with history of ileostomy and a total colectomy, chronic hypoxemic respiratory failure patient usually wears 4 L of oxygen by nasal cannula, previous history of rest or a failure requiring mechanical ventilation. He had the recent hospitalizations in April and May of this year for COPD exacerbation, she was seen in follow-up by Dr. Mistry in the office on 06/26/2019, and patient was stable, without any active signs of exacerbation. On 06/18/2019 patient states she was hearing things that were not there, and apparently her noticed her breathing heavier. She states that there is no fever or chills, no increased cough or congestion. Patient took one breathing treatment prior to calling EMS, when the EMS responded patient's O2 saturation was in the mid 80s, she was noted to be dyspneic, tachycardic with a heart rate in the 160s and 180s. Patient was given a dose of adenosine, the heart rate did slow down briefly but then the tachycardia resumed at a rate of 150. EKG showed sinus tachycardia with a rate of 152, without acute ischemic changes. Chest x-ray was obtained showing suspicion for left apical pneumothorax, this was followed up with the CT chest showing advanced emphysematous changes greater in the right lung with scattered areas of scarring and/or atelectasis, with no significant change from most recent study no new infiltrate or consolidation. Patient was placed on BiPAP support, she was given extra dose of metoprolol, she was started on IV steroids, nebulized bronchodilators. We're seeing this patient for evaluation of increased shortness of breath. Lab work showed a white blood cell count of 2.1, hemoglobin of 8.4, serum sodium is 140, potassium is 3.9, chloride is 91, CO2 is 46, B1 is 22, creatinine 0.63, troponin was negative 1, proBNP was within normal limits at 199. Patient is seen today on 07/02/2018 in follow-up on the regular medical floor. She is currently awake and alert in no acute distress. Resting fairly comfortably in bed. She is still very dyspneic with minimal exertion. Dyspneic with conversation. Maintaining O2 saturations in the upper 90s on 3 L/m per nasal cannula. She's afebrile. Hemodynamically stable. Sputum culture pending. White count 1.7. Hemoglobin 9.0. Platelet count 20,000. Creatinine 0.64. She is currently on DuoNeb inhalations, IV Solu-Medrol. Antibiotics in the form of Zosyn and Levaquin. She is expressing interest in going home tomorrow with hospice. The patient is seen today 07/03/2019 in follow-up on the regular medical floor. She is currently awake and alert in no acute distress. No worsening shortness of breath cough or congestion. She is still quite dyspneic with minimal exertion. Sputum cultures positive for gram-negative bacilli. Remains on Zosyn and Levaquin. Blood glucose 227. Objective - Vital Signs Vital signs: Vital Signs Temp 98.1 F 07/03/19 05:43 Pulse 98 07/03/19 07:23 Resp 16 07/03/19 08:00 BP 158/94 07/03/19 05:43 Pulse Ox 97 07/03/19 05:43 Intake & Output 07/02/19 07/03/19 07/03/19 18:59 06:59 18:59 Intake Total 850 200 Output Total 300 Balance 850 200 -300 Weight 50 kg Intake: Oral 850 200 Output: Urine 300 Other: Voiding Method Bedpan Bedpan Diaper Diaper # Voids 1 1 # Bowel Movements 0 - Exam GENERAL EXAM: Alert, 59-year-old female patient, on 3 L/m per nasal cannula. HEAD: Normocephalic/atraumatic. EYES: Normal reaction of pupils, equal size. Conjunctiva pink, sclera white. NOSE: Clear with pink turbinates. THROAT: No erythema or exudates. NECK: No masses, no JVD, no thyroid enlargement, no adenopathy. CHEST: No chest wall deformity. Symmetrical expansion. LUNGS: Equal air entry with diminished breath sounds bilaterally CVS: Regular rate and rhythm, normal S1 and S2, no gallops, no murmurs, no rubs ABDOMEN: Soft, nontender. No hepatosplenomegaly, normal bowel sounds, no guarding or rigidity. Ileostomy is in place EXTREMITIES: No clubbing, no edema, no cyanosis, 2+ pulses and upper and lower extremities. MUSCULOSKELETAL: Muscle strength and tone normal. SPINE: No scoliosis or deformity SKIN: No rashes CENTRAL NERVOUS SYSTEM: No focal deficits, tone is normal in all 4 extremities. PSYCHIATRIC: Alert and oriented -3. Appropriate affect. Intact judgment and insight. - Labs CBC & Chem 7: 07/02/19 08:09 07/02/19 08:09 Labs: Abnormal Lab Results - Last 24 Hours (Table) 07/02/19 07/03/19 07/03/19 Range/Units 21:20 06:57 12:04 POC Glucose (mg/dL) 309 H 224 H 227 H (75-99) mg/dL Assessment and Plan Assessment: Assessment: #1. Acute exacerbation of chronic obstructive pulmonary disease, chest x-ray and CT chest showed chronic changes, without evidence of acute pulmonary process area though follow-up chest x-ray on 06/29/2019 revealed some left mid and lower lung airspace disease. Currently on Zosyn and Levaquin. #2. Acute on chronic hypoxic respiratory failure secondary to the above #3. Chronic hypercapnic respiratory failure related to advanced COPD #4. SVT, tachycardia, possibly related to nebulized treatments, and acute hypoxia, improved, troponin was negative, and ALLERGIES following #5. History of severe bullous emphysema, the patient has a large bulla occupying a large portion of the right lung field and it is not of chronic left upper lobe cavitation lesion. This has previously been seen on CT scans and chest x-rays, and appears to be stable in appearance. Patient has been referred for lung transplantation surgery at [facility] #6. Chronic hypoxemic respiratory failure related to advanced COPD/emphysema, with baseline FEV1 value of 36% of predicted, stage III COPD, oxygen and prednisone dependent #7. History of bilateral pneumothoraces requiring placement of bilateral chest tubes. #8. History of brief cardiac arrest following spontaneous pneumothoraces, requiring intubation and placement on mechanical ventilation, recovered #9. Past episodes of pneumonia requiring intubation and mechanical ventilation, tracheostomy placement of PEG tube placement and patient had since been weaned off and decannulated #10. Chronic left upper lobe inflammatory opacity #11. Hypertension #12. Hyperlipidemia #13. Crohn's disease with history of bowel resection and creation of ileostomy #14. Hypothyroidism #15. Chronic anemia #16. Fibromyalgia #17. Anxiety/depression Plan: The patient was seen and evaluated by Dr. Mistry. The plan is for home today with hospice. I, the cosigning physician, performed a history & physical examination of the patient. Lungs sounds are clear but diminished. Maintaining good O2 saturations in the 90s on currently 40% FiO2. I discussed the assessment and plan of care with my nurse practitioner, Trinity Kay. I attest to the above note as dictated by her. <Jazmine Mistry - Last Filed: 07/03/19 17:02> Objective - Vital Signs Vital signs: Vital Signs Temp 98.1 F 07/03/19 05:43 Pulse 98 07/03/19 07:23 Resp 16 07/03/19 08:00 BP 158/94 07/03/19 05:43 Pulse Ox 97 07/03/19 05:43 Intake & Output 07/02/19 07/03/19 07/03/19 18:59 06:59 18:59 Intake Total 850 200 650 Output Total 300 Balance 850 200 350 Weight 50 kg Intake: Oral 850 200 650 Output: Urine 300 Other: Voiding Method Bedpan Bedpan Diaper Diaper # Voids 1 1 2 # Bowel Movements 0 - Labs CBC & Chem 7: 07/02/19 08:09 07/02/19 08:09 Labs: Abnormal Lab Results - Last 24 Hours (Table) 07/02/19 07/03/19 07/03/19 Range/Units 21:20 06:57 12:04 POC Glucose (mg/dL) 309 H 224 H 227 H (75-99) mg/dL Assessment and Plan Assessment: This the patient is going to hospice. Unfortunately the prognosis poor based on advanced and end-stage lung disease.
--- NOTE | 2019-07-03 15:59 | P.DS ---
Providers Date of admission: 06/27/19 07:35 Expected date of discharge: 07/03/19 Attending physician: Janina Arvizu Consults: 06/27/19 07:33 Consult Physician Routine Consulting Provider: Jazmine Mistry Consult Reason/Comments: COPD Do you want consulting provider notified?: Yes 06/27/19 10:23 Consult Physician Stat Consulting Provider: Twin Aguirre Consult Reason/Comments: tachycardia Do you want consulting provider notified?: Yes 06/29/19 12:42 Consult Physician Routine Consulting Provider: Bonnie Verma Consult Reason/Comments: fobt, LOW HEMOGLOBIN, INCREASED LACTIC ACID Do you want consulting provider notified?: Yes Primary care physician: [facility] Course: This is a 59-year-old female patient of Dr. James and Dr. 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 Patient is currently on transplant list at [facility] where she was initially evaluated for embolectomy but surgery was canceled. Patient is on the lung transplant list but has to be off [place] for 6 months and is currently weaning off herself off [place] and is on 1-3 times a day. Patient was just discharged on 06/06/2006/18/2019 for similar problems with COPD exacerbation and was discharged to home on oral prednisone, and Zithromax. Patient is not on maintenance oral prednisone at home. She was last seen by Dr. Mistry yesterday, instilled tapering off her prednisone, and was doing okay until early this morning, patient was noticed to be more lethargic, patient stopped breathing or more apneic, however she responds with jerking motion by the , and was more delirious, patient was sent in by the she does not have any fever or chills, however she is febrile coming into the hospital. Patient denies melena and hematochezia, no leg swelling no neck pain no cramps. Patient has significant shortness of breath resting as well as on exertion exertion, she is hearing things that are not there, which is new to her. Patient also was noted to be tachypneic as well as tachycardic, and was noticed to have decreased mentation Emergency room, CAT scan of the chest was also done, that shows advanced emphysematous changes, and the right lung with scattered areas of scarring and/or atelectasis, no recent change from recent study, no new infiltrate or consolidation required EKG shows sinus tach heart rate of 150s troponin was 0.012, PRINCIPAL ARCHAEOLOGIST proBNP of 199, AST of 51 elevated ALT 94 elevated alkaline phosphatase 224, EKG on ER, sinus tach with PACs, she was given 1 dose of IV adenosine how I ever the heart rate went back up to 150s, 13 seconds after adenosine. She is on metoprolol 50 mg 3 times a day with missed dose morning of the ER visit 06/28: Patient had episodes of decreased blood pressure and cold sweats. Antibiotics were started improved procalcitonin 3.34. She states she's had more watery stools from ileostomy. Stool to be sent for C. difficile toxin came back negative. Stool for occult blood was positive. Lactic acid was elevated patient has been fluid resuscitated. She is being transfused 1 unit of packed RBCs for hemoglobin of 6.4. Blood sugars are elevated and NPH twice daily added. Cardiology has signed off and will follow on an as-needed basis. Rate is mostly running in the 90s. She has been resumed on her home dose of Lopressor. Patient is followed by Dr. Meza 06/29 patient's vitals obtained today suggest to temp of 97 pulse 97 blood pressure 160-106 saturating 93% on 3 L. Lactic acid has come down to 0.8 patient is noted to have a small ulcer on her colostomy bag, many many will be applied to help with healing of the wound. Fecal occult is positive for blood. With increased lactic acid on admission and a positive fecal occult gastroenterology is consulted for evaluation of GI bleed. Continue patient on IV steroids for COPD exacerbation. Patient is a severe COPD and is in and out of hospital very frequently and is currently under evaluation for lung transplant. Patient did not require BiPAP overnight. 06/30: The patient is tearful during evaluation as she is concerned that her pulse ox continues to be today on the lower side running in the 80s despite 4 L of nasal cannula. She states it started after she was switching from nebulizer back to oxygen and her pulse ox dropped quickly and is not to return to her baseline. She verbalizes understanding that she is at the end stages of life and that her condition will not be improving. She is agreeable for palliative/hospice care referral and meeting. CODE STATUS discussed and patient changed to no code. Patient may benefit from inpatient hospice care at this point. 07/01 patient examined bedside is tearful and would like to gather more information on hospice and were physicians before switching to hospice. Plan for switching to hospice tomorrow. 07/02: Patient has met with [facility] with plan for home with hospice. Patient wishes to stay until tomorrow. We will plan for discharge home tomorrow. Sputum culture is currently pending. 07/03: Sputum culture remains pending. Patient will be discharged on Levaquin and prednisone taper. All arrangements have been made for home hospice. Patient will be discharged home today in stable condition. Opioid start talking form has been completed. Discharge diagnoses: 1. Acute respiratory failure with hypercarbic respiratory failure, and acute delirium 2. Acute exacerbation advanced end-stage COPD. 3. Pancytopenia, probably related to prednisone dose, and chronic use of DMARD 4. Advanced end-stage COPD with large bulla on the right upper lobe multiple ruptured bulla and spontaneous pneumothorax in the past, stable. 5. Chronic hypoxemic and hypercapneic respiratory failure 6. History of Crohn's colitis status post subtotal colectomy and ostomy. 7. Moderate protein calorie malnutrition. 8. H/O critical illness myopathy post IVIG infusion. 9.. Generalized anxiety disorder. 10. Fibromyalgia with bilateral neuropathy. 11. Sinus tachycardia. 12. Vitamin D deficiency. 13. B12 deficiency. 14. Glaucoma. 15. Hypomagnesemia. 16. Chronic pain 17. Elevated liver function tests. Discharge plan: Home with [facility] Impression and plan of care have been directed as dictated by the signing physician. Gaby Rothman nurse practitioner acting as scribe for signing physician. Patient Condition at Discharge: Fair Plan - Discharge Summary Discharge Rx Participant: No New Discharge Prescriptions: New LORazepam ORAL CONC [Ativan Intensol] 2 mg PO Q4HR PRN #30 ml PRN Reason: Anxiety Atropine Ophth Soln 1% 5Ml [Isopto Atropine 1% 5Ml] 2 drops PO Q4HR PRN #1 bottle PRN Reason: Secretions MORPHINE ORAL MARINA CONC 20mg/mL [Roxanol Oral Soln Conc 20MG/ML] 5 mg PO Q4H PRN #30 ml PRN Reason: Pain Levofloxacin [Levaquin] 500 mg PO DAILY 3 Days #3 tab predniSONE 0 mg PO DIRECTED #30 tab Continue Latanoprost Ophth [Xalatan 0.005%] 1 drop BOTH EYES HS Dicyclomine [Bentyl] 10 mg PO TID PRN PRN Reason: Gi Upset Budesonide 1 mg INHALATION RT-BID PRN PRN Reason: Shortness Of Breath Gabapentin [Neurontin] 300 mg PO TID HYDROcodone/APAP 10-325MG [[place] 10-325] 1 tab PO Q4H PRN PRN Reason: Pain Metoprolol Tartrate [Lopressor] 50 mg PO TID #90 tab Albuterol Nebulized [Ventolin Nebulized] 2.5 mg INHALATION RT-QID PRN #120 nebu PRN Reason: Shortness Of Breath Guaifen/Phenyleph/Acetaminophn [Mucinex Sinus-Max Severe Liq] 10 ml PO Q6H PRN PRN Reason: Cough Aclidinium Vermillion [Tudorza Pressair] 1 puff INHALATION RT-BID Mercaptopurine [Purinethol] 50 mg PO BID busPIRone HCl [Buspar] 10 mg PO BID PRN PRN Reason: Anxiety Fluticasone/Vilanterol [Breo Ellipta 200-25 Mcg INH] 1 puff INHALATION RT- DAILY DULoxetine HCL [Cymbalta] 30 mg PO DAILY Hyoscyamine Sulfate [Levsin] 0.125 mg PO Q4H PRN #90 tab PRN Reason: Abdominal Distention Ondansetron HCl [Zofran] 4 mg PO BID PRN PRN Reason: Nausea Nystatin 100,000 Unit/ml Susp [Mycostatin Oral Susp] 5 ml PO QID PRN PRN Reason: THRUSH Albuterol Sulfate [Proair Hfa] 2 puff INHALATION RT-Q6H PRN PRN Reason: Shortness Of Breath Pantoprazole [Protonix] 40 mg PO QAM Mupirocin 2% Oint [Bactroban 2% Oint] 1 applic TOPICAL DAILY PRN PRN Reason: Rash Mirtazapine [Remeron] 7.5 mg PO HS@1900 Melatonin 10 mg PO HS PRN PRN Reason: Insomnia Magnesium Oxide [Adan] 500 mg PO DAILY Diphenox-Atrop 2.5-0.025 mg [Lomotil] 1 tab PO TID Calcium Gummies 500mg 500 mg PO BID Lidocaine 5% Patch [Lidoderm 5% Patch] 1 patch TOPICAL DAILY Sucralfate [Carafate] 1 gm PO TID PRN PRN Reason: Gi Upset Cyanocobalamin [Vitamin B-12 Injection] 1,000 mcg SQ Q30D Multivitamins, Thera [Multivitamin (formulary)] 1 tab PO BID Cholecalciferol (Vitamin D3) [Vitamin D3] 2,000 unit PO DAILY Opium Tincture 2 ml PO QID PRN PRN Reason: Pain ALPRAZolam [Xanax] 0.25 mg PO DAILY PRN PRN Reason: Anxiety Nystatin 100,000 Unit/gm Powd [Mycostatin Powder] 1 applic TOPICAL DAILY PRN PRN Reason: Rash Discontinued Adalimumab [Humira(Cf) Pen] 40 mg SQ ENGEL Discharge Medication List Latanoprost Ophth [Xalatan 0.005%] 1 drop BOTH EYES HS 05/21/17 [History] Dicyclomine [Bentyl] 10 mg PO TID PRN 07/24/18 [History] Budesonide 1 mg INHALATION RT-BID PRN 09/27/18 [History] Gabapentin [Neurontin] 300 mg PO TID 09/27/18 [History] HYDROcodone/APAP 10-325MG [[place] 10-325] 1 tab PO Q4H PRN 09/27/18 [History] Albuterol Nebulized [Ventolin Nebulized] 2.5 mg INHALATION RT-QID PRN #120 nebu 11/10/18 [Rx] Metoprolol Tartrate [Lopressor] 50 mg PO TID #90 tab 11/10/18 [Rx] Aclidinium Vermillion [Tudorza Pressair] 1 puff INHALATION RT-BID 11/29/18 [History] Fluticasone/Vilanterol [Breo Ellipta 200-25 Mcg INH] 1 puff INHALATION RT-DAILY 11/29/18 [History] Guaifen/Phenyleph/Acetaminophn [Mucinex Sinus-Max Severe Liq] 10 ml PO Q6H PRN 11/29/18 [History] Mercaptopurine [Purinethol] 50 mg PO BID 11/29/18 [History] busPIRone HCl [Buspar] 10 mg PO BID PRN 11/29/18 [History] DULoxetine HCL [Cymbalta] 30 mg PO DAILY 12/28/18 [History] Hyoscyamine Sulfate [Levsin] 0.125 mg PO Q4H PRN #90 tab 02/05/19 [Rx] Albuterol Sulfate [Proair Hfa] 2 puff INHALATION RT-Q6H PRN 03/26/19 [History] Calcium Gummies 500mg 500 mg PO BID 03/26/19 [History] Diphenox-Atrop 2.5-0.025 mg [Lomotil] 1 tab PO TID 03/26/19 [History] Magnesium Oxide [Adan] 500 mg PO DAILY 03/26/19 [History] Melatonin 10 mg PO HS PRN 03/26/19 [History] Mirtazapine [Remeron] 7.5 mg PO HS@1900 03/26/19 [History] Mupirocin 2% Oint [Bactroban 2% Oint] 1 applic TOPICAL DAILY PRN 03/26/19 [History] Nystatin 100,000 Unit/ml Susp [Mycostatin Oral Susp] 5 ml PO QID PRN 03/26/19 [History] Ondansetron HCl [Zofran] 4 mg PO BID PRN 03/26/19 [History] Pantoprazole [Protonix] 40 mg PO QAM 03/26/19 [History] Lidocaine 5% Patch [Lidoderm 5% Patch] 1 patch TOPICAL DAILY 04/16/19 [History] Sucralfate [Carafate] 1 gm PO TID PRN 04/16/19 [History] Cholecalciferol (Vitamin D3) [Vitamin D3] 2,000 unit PO DAILY 06/06/19 [History] Cyanocobalamin [Vitamin B-12 Injection] 1,000 mcg SQ Q30D 06/06/19 [History] Multivitamins, Thera [Multivitamin (formulary)] 1 tab PO BID 06/06/19 [History] ALPRAZolam [Xanax] 0.25 mg PO DAILY PRN 06/27/19 [History] Nystatin 100,000 Unit/gm Powd [Mycostatin Powder] 1 applic TOPICAL DAILY PRN 06/27/19 [History] Opium Tincture 2 ml PO QID PRN 06/27/19 [History] Atropine Ophth Soln 1% 5Ml [Isopto Atropine 1% 5Ml] 2 drops PO Q4HR PRN #1 bottle 07/02/19 [Rx] LORazepam ORAL CONC [Ativan Intensol] 2 mg PO Q4HR PRN #30 ml 07/02/19 [Rx] MORPHINE ORAL MARINA CONC 20mg/mL [Roxanol Oral Soln Conc 20MG/ML] 5 mg PO Q4H PRN #30 ml 07/02/19 [Rx] Levofloxacin [Levaquin] 500 mg PO DAILY 3 Days #3 tab 07/03/19 [Rx] predniSONE 0 mg PO DIRECTED #30 tab 07/03/19 [Rx] Follow up Appointment(s)/Referral(s): [facility], [NON-STAFF] - ([facility] will meet you at your house today between 5PM-6PM.) Heber James MD [Primary Care Provider] - 1 Week Patient Instructions/Handouts: Hospice (DC) Activity/Diet/Wound Care/Special Instructions: Diet as tolerated Activity limited, continue oxygen as at home. Discharge Disposition: HOME WITH HOSPICE
== END 2019-07-03 14:18 | disposition hospice, home (50) | DRG 189 ==
LOC: EC 05:02 → 3SCARD 07:35 → 4MS4W 06-30 15:45
PROVIDERS: ADMIT Family Medicine; ATTEND Family Medicine
PROC: 5A09557 Assistance with Respiratory Ventilation, Greater than 96 Consecutive Hours, Continuous Positive Airway Pressure (ICD-10-PCS; principal; 2019-06-27)
PROC: 30233N1 Transfusion of Nonautologous Red Blood Cells into Peripheral Vein, Percutaneous Approach (ICD-10-PCS; 2019-06-28)
DX: J96.22 Acute and chronic respiratory failure with hypercapnia (principal); D61.811 Other drug-induced pancytopenia; J18.9 Pneumonia, unspecified organism; E44.0 Moderate protein-calorie malnutrition; K50.80 Crohn's disease of both small and large intestine without complications; F33.9 Major depressive disorder, recurrent, unspecified; I47.1 Supraventricular tachycardia; J98.11 Atelectasis; F05 Delirium due to known physiological condition; J43.9 Emphysema, unspecified; Z66 Do not resuscitate; Z51.5 Encounter for palliative care; J96.21 Acute and chronic respiratory failure with hypoxia; Z86.74 Personal history of sudden cardiac arrest; G62.9 Polyneuropathy, unspecified; E83.42 Hypomagnesemia; I08.1 Rheumatic disorders of both mitral and tricuspid valves; J98.09 Other diseases of bronchus, not elsewhere classified; T38.0X5A Adverse effect of glucocorticoids and synthetic analogues, initial encounter; T39.4X5A Adverse effect of antirheumatics, not elsewhere classified, initial encounter; D64.9 Anemia, unspecified; G89.29 Other chronic pain; I10 Essential (primary) hypertension; E53.8 Deficiency of other specified B group vitamins; E55.9 Vitamin D deficiency, unspecified; K21.9 Gastro-esophageal reflux disease without esophagitis; M79.7 Fibromyalgia; E03.9 Hypothyroidism, unspecified; E78.5 Hyperlipidemia, unspecified; F41.1 Generalized anxiety disorder; M19.90 Unspecified osteoarthritis, unspecified site; K44.9 Diaphragmatic hernia without obstruction or gangrene; M81.0 Age-related osteoporosis without current pathological fracture; H40.9 Unspecified glaucoma; Z68.20 Body mass index [BMI] 20.0-20.9, adult; Z99.81 Dependence on supplemental oxygen; Z79.51 Long term (current) use of inhaled steroids; Z79.899 Other long term (current) drug therapy; Z93.2 Ileostomy status; Z87.891 Personal history of nicotine dependence; Z90.710 Acquired absence of both cervix and uterus; Z98.890 Other specified postprocedural states; Z87.01 Personal history of pneumonia (recurrent); Z87.19 Personal history of other diseases of the digestive system; Z90.49 Acquired absence of other specified parts of digestive tract; Z90.12 Acquired absence of left breast and nipple; Z91.048 Other nonmedicinal substance allergy status; Z88.2 Allergy status to sulfonamides; Z88.8 Allergy status to other drugs, medicaments and biological substances; Z88.6 Allergy status to analgesic agent; Z91.041 Radiographic dye allergy status; Z82.5 Family history of asthma and other chronic lower respiratory diseases; Z80.8 Family history of malignant neoplasm of other organs or systems; Z82.49 Family history of ischemic heart disease and other diseases of the circulatory system; Z83.3 Family history of diabetes mellitus; Z82.3 Family history of stroke; Z81.8 Family history of other mental and behavioral disorders
CPT/HCPCS: 36415; 71045; 71250; 80048; 80053; 81001; 82272; 82784; 83010; 83605; 83735; 83880; 84145; 84484; 85025; 85610; 85730; 86850; 86900; 86901; 86920; 87070; 87077; 87186; 87205; 87324; 94640; 94660; 94667; 94668; 94760; 96374; 99291